=== PATIENT | female | born 1940 | race Caucasian/White ===

== ENCOUNTER 2016-10-06 12:54 | Outpatient (RCR) | payer MEDICARE ==
[2016-09-27] MEDS: IRON SUCROSE 200 MG/NS 100 ML (IVPB) IV SCH ×2 (13:35)
[2016-09-27 13:47] VITALS: BP 134/80
[2016-09-29 12:53] VITALS: BP 127/69
[2016-09-29] MEDS: IRON SUCROSE 200 MG/NS 100 ML (IVPB) IV SCH ×2 (13:40)
[2016-09-29] MEDS: ACETAMINOPHEN 500 MG TAB (TYLENOL) PO PRN (13:42)
[2016-10-01] MEDS: ACETAMINOPHEN 500 MG TAB (TYLENOL) PO PRN (13:05)
[2016-10-01] MEDS: IRON SUCROSE 200 MG/NS 100 ML (IVPB) IV SCH ×2 (13:15)
[2016-10-01 14:58] VITALS: BP 131/71
[2016-10-04] MEDS: ACETAMINOPHEN 500 MG TAB (TYLENOL) PO PRN (13:05)
[2016-10-04] MEDS: IRON SUCROSE 200 MG/NS 100 ML (IVPB) IV SCH ×2 (13:10)
[2016-10-04 13:36] VITALS: BP 127/69
[~2016-10-06] VITALS: Ht 167.6 cm; Wt 64.9 kg
[~2016-10-06 12:54] MED LIST: AC325T PO; ASP325TEC; ASP81TEC PO; ASPI-84 PO; BPR100T PO; CALCIUM MAGNESIUM PO; CLON0.5T3 PO; CLON1TAB36 PO; DOCU-165 PO; MCLZ25TRX PO; METO25TA2 PO; METO5TAB2 PO; MRTZ15T; MULT1TAB5 PO; NF-DICLO50 PO; NFR150C PO; NIAC125C3 PO; OMEP-10 PO; PEG250PW PO; PRAV40TA PO; PROP1TAB77; PRV20T PO; RAME8T PO; WARF2.5T PO; [UNRECOGNIZED DRUG - OTHER]; diphenhydrAMINE 50 MG/ML INJ (BENADRYL) IV PRN
[2016-10-06] MEDS: IRON SUCROSE 200 MG/NS 100 ML (IVPB) IV SCH ×2 (13:30)
[2016-10-06] MEDS: ACETAMINOPHEN 500 MG TAB (TYLENOL) PO PRN (13:37)
[2016-10-06 14:01] VITALS: BP 135/73
== END 2016-12-26 | disposition home or self-care (01) ==
LOC: SDC 12:54
PROVIDERS: ATTEND Nurse Practitioner
DX: D50.9 Iron deficiency anemia, unspecified (principal); D63.1 Anemia in chronic kidney disease; N18.3 Chronic kidney disease, stage 3 (moderate)
CPT/HCPCS: 96365; 96374

== ENCOUNTER → 2016-10-28 | Outpatient (CLI) | payer MEDICARE ==
[~2016-10-28] MED LIST changes: -diphenhydrAMINE 50 MG/ML INJ (BENADRYL) IV PRN
[2016-10-28 16:02] LABS: INR 1.7 (0.8-1.4); PROTHROMBIN TIME PATIENT 19.7 SEC (12.2-14.7)
== END ==
LOC: HH 15:41
PROVIDERS: ATTEND Internal Medicine Cardiovascular Disease
DX: Z51.81 Encounter for therapeutic drug level monitoring (principal); Z79.01 Long term (current) use of anticoagulants
CPT/HCPCS: 85610

== ENCOUNTER 2017-11-09 00:10 | Inpatient (IN) | payer MEDICARE ==
[~2017-11-09] VITALS: Ht 165.1 cm; Wt 62.2 kg
--- OUTSIDE RECORDS SUMMARY | 2017-11-09 00:26 | XMS REPORT ---
Author Author FRANCESCO PHILLIPS Organization e[employer] Address Unknown Phone Unavailable Care Team Providers Care Production Counter Name Role Phone FRANCESCO PHILLIPS CP Unavailable Allergies No Known Allergies Problems Problem Type Condition ICD-9 Code Onset Dates Condition Status Problem Blood in stool 578.1 Active Problem Anxiety state, unspecified 300.00 Active Problem Hyperlipidemia 272.4 Active Problem Unspecified site of sprain and strain 848.9 Active Problem Family history of malignant neoplasm of gastrointestinal tract V16.0 Active Problem Nonspecific abnormal finding in stool contents 792.1 Active Medications No Known Medications Results No Known Results Summary Purpose eClinicalWorks Submission
--- OUTSIDE RECORDS SUMMARY | 2017-11-09 00:26 | XMS REPORT ---
Author Author FRANCESCO PHILLIPS [facility] Address [address] [place] [address] Care Team Providers Care Solid Waste Division Supervisor Name Role Phone FRANCESCO PHILLIPS Unavailable PROBLEMS Type Condition ICD9-CM Code [id number] Code Onset Dates Condition Status SNOMED Code Problem Chronic kidney disease (CKD) stage G1/A1, glomerular filtration rate ( GFR) equal to or greater than 90 mL/min/1.73 square meter and albuminuria creatinine ratio less than 30 mg/g N18.1 Active 164337890 Problem Depression F32.9 Active 23453006 Problem Arthritis M19.90 Active 6173278 Problem MDD (major depressive disorder), recurrent, in partial remission F33.41 Active 51759356 Problem Generalized anxiety disorder F41.1 Active 67040822 Problem Atrial fibrillation, unspecified type I48.91 Active 70803822 Problem Anxiety F41.9 Active 68163441 Problem Gastro-esophageal reflux disease without esophagitis K21.9 Active 806263262 Problem Paroxysmal atrial fibrillation I48.0 Active 397194796 ALLERGIES No Information SOCIAL HISTORY Never Assessed PLAN OF CARE VITAL SIGNS MEDICATIONS Unknown Medications RESULTS No Results PROCEDURES No Known procedures IMMUNIZATIONS No Known Immunizations MEDICAL (GENERAL) HISTORY Type Description Date Medical History Depression Medical History hypertension Medical History Hypothyroidism Medical History anxiety Medical History hyperlipidemia Surgical History right hip replacement 2007 Surgical History left knee cap fixed 2008 Surgical History left knee screw removal 2010 Surgical History cataract surgery both eyes 2011 Surgical History heart cath 2010 Hospitalization History surgeries Hospitalization History [facility]- irregular heart beat, shortness of breath Aug
--- OUTSIDE RECORDS SUMMARY | 2017-11-09 00:26 | XMS REPORT ---
Author Author KAI CAZARES [facility] eClinicalWorks Address Unknown Phone Unavailable Care Team Providers Care Movement Assembly Final Inspector Name Role Phone KAI CAZARES CP Unavailable Allergies, Adverse Reactions, Alerts Substance Reaction Event Type morphine vomiting Drug Allergy Adhesive Tape itching, rash Drug Allergy Problems Problem Type Condition Code Onset Dates Condition Status Assessment Psychophysiological insomnia F51.04 Active Assessment Major depressive disorder, recurrent, unspecified F33.9 Active Assessment Anxiety F41.9 Active Problem Anxiety F41.9 Active Problem Arthritis M19.90 Active Problem Depression F32.9 Active Problem Hyperlipidemia 272.4 Active Problem Anxiety state, unspecified 300.00 Active Problem Chronic kidney disease (CKD) stage G1/A1, glomerular filtration rate ( GFR) equal to or greater than 90 mL/min/1.73 square meter and albuminuria creatinine ratio less than 30 mg/g N18.1 Active Problem GERD (gastroesophageal reflux disease) K21.9 Active Medications Medication Code System Code Instructions Start Date End Date Status Dosage pravastatin [facility] [address]-78 40 mg Once a day May 20, 2014 1 tablet Docusate Sodium [facility] [address]-77 50 MG Orally 2 times a day 1 capsule as needed Metoclopramide HCl [facility] [id number] NA 1 TABLET BY ORAL ROUTE 3 TIMES PER DAY Levothyroxine Sodium [facility] 75878906629 25 MCG TAKE ONE TABLET BY MOUTH DAILY Metoprolol Tartrate [facility] [address]-98 25 mg Sep 05, 2014 0.5 Tablet by Oral route 1 time per day Trazodone HCl [facility] [address]-70 150 MG Orally Once a day as needed to sleep 1 tablet at bedtime Wellbutrin XL [facility] [address]-74 300 MG Orally Once a day [address] [facility] [address]-83 20 MG Orally Once a day May 20, 2014 1 capsule by Oral route 1 time per day Alprazolam XR [facility] 45465679759 2 MG TAKE ONE TABLET BY MOUTH TWICE DAILY Polyethylene Glycol 3350 NDC [id number] MIX 17 GRAMS IN 8 OZ OF SUITABLE LIQUID AND DRINK ONCE DAILY Aspir-Low [facility] [address]-66 81 MG Orally Once a day 1 tablet Procedures Procedure Coding System Code Date Office Visit, Walt Pt., Level 3 CPT-4 65486 May 04, 2016 [facility] VISIT ESTABLISHED PATIENT CPT-4 G0467 May 04, 2016 Vital Signs Date/Time: May 04, 2016 Cardiac Monitoring Heart Rate 64 bpm Weight 143.0 lbs Height 66 in Blood Pressure Diastolic 58 mmHg Blood Pressure Systolic 104 mmHg Results No Known Results Summary Purpose eClinicalWorks Submission
--- OUTSIDE RECORDS SUMMARY | 2017-11-09 00:26 | XMS REPORT ---
Author Author FRANCESCO PHILLIPS Organization e[employer] Address Unknown Phone Unavailable Care Team Providers Care Immigration Case Worker Name Role Phone FRANCESCO PHILLIPS CP Unavailable Allergies No Known Allergies Problems Problem Type Condition Code Onset Dates Condition Status Problem Anxiety F41.9 Active Problem Arthritis M19.90 Active Problem Depression F32.9 Active Problem Hyperlipidemia 272.4 Active Problem Anxiety state, unspecified 300.00 Active Problem Chronic kidney disease (CKD) stage G1/A1, glomerular filtration rate ( GFR) equal to or greater than 90 mL/min/1.73 square meter and albuminuria creatinine ratio less than 30 mg/g N18.1 Active Problem GERD (gastroesophageal reflux disease) K21.9 Active Medications No Known Medications Results No Known Results Summary Purpose eClinicalWorks Submission
--- OUTSIDE RECORDS SUMMARY | 2017-11-09 00:26 | XMS REPORT ---
Author Author ANASTASIYA JOHNSON [facility] eClinicalWorks Address Unknown Phone Unavailable Care Team Providers Care Site Engineer Name Role Phone ANASTASIYA JOHNSON CP Unavailable Allergies, Adverse Reactions, Alerts Substance Reaction Event Type morphine vomiting Drug Allergy Adhesive Tape itching, rash Drug Allergy Problems Problem Type Condition ICD-9 Code Onset Dates Condition Status Assessment Major depression, recurrent 296.30 Active Assessment Persistent 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 Active Problem Blood in stool 578.1 Active Problem Anxiety state, unspecified 300.00 Active Problem Hyperlipidemia 272.4 Active Problem Unspecified site of sprain and strain 848.9 Active Assessment Generalized anxiety disorder 300.02 Active Problem Family history of malignant neoplasm of gastrointestinal tract V16.0 Active Problem Nonspecific abnormal finding in stool contents 792.1 Active Medications Medication Code System Code Instructions Start Date End Date Status Dosage Aspir-Low [facility] [address]-87 81 MG Orally Once a day 1 tablet Niacin [facility] [address]-13 100 MG Orally Once a day 1 tablet pravastatin [facility] [address]-02 40 mg Once a day May 20, 2014 1 tablet Trazodone HCl [facility] [address]-88 150 MG Take one tab q HS, may repeat X1 if awakens during the night 1 tablet at bedtime Wellbutrin XL [facility] [address]-65 300 MG TAKE ONE TABLET BY MOUTH ONCE DAILY Levothyroxine Sodium [facility] 11951779852 25 MCG TAKE ONE TABLET BY MOUTH DAILY Reglan [facility] [address]-40 5 mg Jul 26, 2014 1 tablet by Oral route 3 times per day Metoprolol Tartrate [facility] [address]-40 25 mg Sep 05, 2014 0.5 Tablet by Oral route 1 time per day MiraLax [facility] [address]-75 17 gram/dose Aug 30, 2014 take 17 g mixed with 8 oz. water or juice by Oral route 1 time per day Xanax XR [facility] [address]-82 2 MG Orally 2 times a day March 06, 2015 1 tablet Omeprazole [facility] [address]-70 20 MG Orally Once a day May 20, 2014 1 capsule by Oral route 1 time per day Docusate Sodium [facility] [address]-33 50 MG Orally 2 times a day 1 capsule as needed Procedures Procedure Coding System Code Date Office Visit, Est Pt., Level 3 CPT-4 67079 Jul 15, 2015 [facility] VISIT ESTABLISHED PATIENT CPT-4 G0467 Jul 15, 2015 Vital Signs Date/Time: Jul 15, 2015 Temperature 98.0 F Weight 151.8 lbs Height 66 in BMI 24.50 Index Blood Pressure Diastolic 62 mmHg Blood Pressure Systolic 110 mmHg Cardiac Monitoring Heart Rate 60 bpm Results No Known Results Summary Purpose eClinicalWorks Submission
--- OUTSIDE RECORDS SUMMARY | 2017-11-09 00:26 | XMS REPORT ---
Author Author FRANCESCO PHILLIPS [facility] Address [address] [place] [address] Care Team Providers Care Yarn Spinner Name Role Phone FRANCESCO PHILLIPS Unavailable PROBLEMS Type Condition ICD9-CM Code [id number] Code Onset Dates Condition Status SNOMED Code Problem Chronic kidney disease (CKD) stage G1/A1, glomerular filtration rate ( GFR) equal to or greater than 90 mL/min/1.73 square meter and albuminuria creatinine ratio less than 30 mg/g N18.1 Active 516844018 Problem Depression F32.9 Active 31836064 Problem Arthritis M19.90 Active 9540188 Problem MDD (major depressive disorder), recurrent, in partial remission F33.41 Active 89458977 Problem Generalized anxiety disorder F41.1 Active 40733571 Problem Atrial fibrillation, unspecified type I48.91 Active 14527854 Problem Anxiety F41.9 Active 91910466 Problem Gastro-esophageal reflux disease without esophagitis K21.9 Active 346457634 Problem Paroxysmal atrial fibrillation I48.0 Active 991464484 ALLERGIES No Information SOCIAL HISTORY Never Assessed [...]
--- OUTSIDE RECORDS SUMMARY | 2017-11-09 00:27 | XMS REPORT ---
Author Author FRANCESCO PHILLIPS [facility] Address [address] [place] [address] Care Team Providers Care Child Development Consultant Name Role Phone FRANCESCO PHILLIPS Unavailable PROBLEMS Type Condition ICD9-CM Code [id number] Code Onset Dates Condition Status SNOMED Code Problem Chronic kidney disease (CKD) stage G1/A1, glomerular filtration rate ( GFR) equal to or greater than 90 mL/min/1.73 square meter and albuminuria creatinine ratio less than 30 mg/g N18.1 Active 742323482 Problem Depression F32.9 Active 18777170 Problem Arthritis M19.90 Active 6288599 Problem MDD (major depressive disorder), recurrent, in partial remission F33.41 Active 20525754 Problem Generalized anxiety disorder F41.1 Active 54270396 Problem Atrial fibrillation, unspecified type I48.91 Active 81281900 Problem Anxiety F41.9 Active 19121333 Problem Gastro-esophageal reflux disease without esophagitis K21.9 Active 898524833 Problem Paroxysmal atrial fibrillation I48.0 Active 723729481 ALLERGIES Unknown Allergies SOCIAL HISTORY No smoking Hx information available PLAN OF CARE VITAL SIGNS MEDICATIONS Unknown Medications RESULTS No Results PROCEDURES No Known procedures IMMUNIZATIONS No Known Immunizations
--- OUTSIDE RECORDS SUMMARY | 2017-11-09 00:27 | XMS REPORT ---
Author Author FRANCESCO PHILLIPS [facility] Address [address] [place] [address] Care Team Providers Care Food Cooking Machine Operator Name Role Phone FRANCESCO PHILLIPS Unavailable PROBLEMS Type Condition ICD9-CM Code [id number] Code Onset Dates Condition Status SNOMED Code Problem Chronic kidney disease (CKD) stage G1/A1, glomerular filtration rate ( GFR) equal to or greater than 90 mL/min/1.73 square meter and albuminuria creatinine ratio less than 30 mg/g N18.1 Active 158118746 Problem Depression F32.9 Active 36807614 Problem Arthritis M19.90 Active 0958750 Problem MDD (major depressive disorder), recurrent, in partial remission F33.41 Active 77067244 Problem Generalized anxiety disorder F41.1 Active 61549803 Problem Atrial fibrillation, unspecified type I48.91 Active 33027640 Problem Anxiety F41.9 Active 22430853 Problem Gastro-esophageal reflux disease without esophagitis K21.9 Active 547186340 Problem Paroxysmal atrial fibrillation I48.0 Active 184234318 ALLERGIES No Information SOCIAL HISTORY Never Assessed PLAN OF CARE VITAL SIGNS MEDICATIONS Medication Instructions Dosage Frequency Start Date End Date Duration Status Omeprazole 20 mg Orally Once a day 1 capsule 24h Apr, 90 days Active Metoclopramide HCl 5MG Orally 3 times a day 1 tablet 8h 90 days Active RESULTS No Results PROCEDURES No Known procedures [...]
--- OUTSIDE RECORDS SUMMARY | 2017-11-09 00:27 | XMS REPORT ---
Author Author FRANCESCO PHILLIPS [facility] Address [address] [place] [address] Care Team Providers Care Casino Floorperson Name Role Phone FRANCESCO PHILLIPS Unavailable PROBLEMS Type Condition ICD9-CM Code [id number] Code Onset Dates Condition Status SNOMED Code Problem Chronic kidney disease (CKD) stage G1/A1, glomerular filtration rate ( GFR) equal to or greater than 90 mL/min/1.73 square meter and albuminuria creatinine ratio less than 30 mg/g N18.1 Active 840459059 Problem Depression F32.9 Active 51856776 Problem Arthritis M19.90 Active 6059460 Problem MDD (major depressive disorder), recurrent, in partial remission F33.41 Active 65739522 Problem Generalized anxiety disorder F41.1 Active 21452267 Problem Atrial fibrillation, unspecified type I48.91 Active 52723347 Problem Anxiety F41.9 Active 97886818 Problem Gastro-esophageal reflux disease without esophagitis K21.9 Active 123922240 Problem Paroxysmal atrial fibrillation I48.0 Active 314114636 ALLERGIES No Information SOCIAL HISTORY Never Assessed [...]
--- OUTSIDE RECORDS SUMMARY | 2017-11-09 00:27 | XMS REPORT ---
Author Author KAI Vines Organization [facility] Address [address] [place] [address] Care Team Providers Care Sharepoint Application Developer Name Role Phone KAI Vines Unavailable PROBLEMS Type Condition ICD9-CM Code [id number] Code Onset Dates Condition Status SNOMED Code Problem Chronic kidney disease (CKD) stage G1/A1, glomerular filtration rate ( GFR) equal to or greater than 90 mL/min/1.73 square meter and albuminuria creatinine ratio less than 30 mg/g N18.1 Active 329470911 Problem Depression F32.9 Active 58661550 Problem Arthritis M19.90 Active 7274229 Problem MDD (major depressive disorder), recurrent, in partial remission F33.41 Active 84861239 Problem Generalized anxiety disorder F41.1 Active 13766367 Problem Atrial fibrillation, unspecified type I48.91 Active 68867509 Problem Anxiety F41.9 Active 15228811 Problem Gastro-esophageal reflux disease without esophagitis K21.9 Active 065548473 Problem Paroxysmal atrial fibrillation I48.0 Active 773847094 ALLERGIES Substance Reaction Event Type Date Status morphine vomiting Drug Allergy Dec, Active Adhesive Tape itching, rash Drug Allergy Dec, Active SOCIAL HISTORY Never Assessed PLAN OF CARE Activity Details Follow Up 3 Months Reason: VITAL SIGNS Height 66 in 2017-01-11 Weight 128.7 lbs 2017-01-11 Heart Rate 60 bpm 2017-01-11 Respiratory Rate 18 2017-01-11 BMI 20.77 kg/m2 2017-01-11 Blood pressure systolic 100 mmHg 2017-01-11 Blood pressure diastolic 53 mmHg 2017-01-11 MEDICATIONS Medication Instructions Dosage Frequency Start Date End Date Duration Status Niacin 100 MG Orally Once a day 1 tablet 24h Active Iron (Ferrous Gluconate) 256 (28 Fe) MG Active Levothyroxine Sodium 25 MCG TAKE ONE TABLET BY MOUTH DAILY 30 Active pravastatin 40 mg by oral route Once a day 1 tablet 24h Apr, Active Lasix 40 MG Orally Once a day 1 tablet 24h Active Alprazolam 1 MG Orally TID TAKE ONE TABLET BY MOUTH THREE TIMES DAILY 8h 30 days Active Docusate Sodium 50 MG Orally 2 times a day 1 capsule as needed 12h Active Wellbutrin XL 300 MG Orally Once a day 1 tablet 24h Active Polyethylene Glycol 3350 MIX 17 GRAMS IN 8 OZ OF SUITABLE LIQUID AND DRINK ONCE DAILY 30 Active Toprol XL 25 MG Orally Once a day 1 tablet 24h Active Omeprazole 20 mg Orally Once a day 1 capsule 24h Apr, 90 days Active Vitamin D 1000 UNIT Orally Once a day 1 tablet 24h Active Coumadin 5 MG Orally Once a day 1 tablet 24h Active BuPROPion HCl (XL) 300 MG Orally Once a day TAKE ONE TABLET BY MOUTH ONCE DAILY 24h 30 days Active Aspir-Low 81 MG Orally Once a day 1 tablet 24h Active Metoclopramide HCl 5MG Orally 3 times a day 1 tablet 8h 90 days Active RESULTS No Results PROCEDURES Procedure Date Ordered Result Body Site [facility] VISIT ESTABLISHED PATIENT January 11, 2017 IMMUNIZATIONS No Known Immunizations MEDICAL (GENERAL) HISTORY [...]
--- OUTSIDE RECORDS SUMMARY | 2017-11-09 00:27 | XMS REPORT ---
Author Author FRANCESCO PHILLIPS Organization eClinicalWorks Address Unknown Phone Unavailable Care Team Providers Care Legal Biller Name Role Phone FRANCESCO PHILLIPS CP Unavailable [...]
--- OUTSIDE RECORDS SUMMARY | 2017-11-09 00:27 | XMS REPORT ---
Author Author ANASTASIYA JOHNSON [facility] eClinicalWorks Address Unknown Phone Unavailable Care Team Providers Care Ophthalmology Surgical Technician Name Role Phone ANASTASIYA JOHNSON CP Unavailable Allergies, Adverse Reactions, Alerts Substance Reaction Event Type morphine vomiting Drug Allergy Adhesive Tape itching, rash Drug Allergy Problems Problem Type Condition ICD-9 Code Onset Dates Condition Status Assessment Depression, major, recurrent, in remission 296.35 Active Problem Blood in stool 578.1 Active [...] Instructions Start Date End Date Status Dosage Hydrocodone-Acetaminophen [facility] [address]-25 5-325 mg Oct 14, 2014 1 tablet by Oral route every 6 hours PRN Docusate Sodium [facility] [address]-26 50 MG Orally 2 times a day 1 capsule as needed Trazodone HCl [facility] [address]-33 150 MG Take one tab q HS, may repeat X1 if awakens during the night 1 tablet at bedtime Xanax XR [facility] [address]-65 2 MG Orally 2 times a day March 06, 2015 1 tablet Wellbutrin XL [facility] [address]-76 300 MG TAKE ONE TABLET BY MOUTH ONCE DAILY Levothyroxine Sodium [facility] [address]-95 25 MCG Orally Once a day 1 tablet Reglan [facility] [address]-89 5 mg Jul 26, 2014 1 tablet by Oral route 3 times per day MiraLax [facility] [address]-47 17 gram/dose Aug 30, 2014 take 17 g mixed with 8 oz. water or juice by Oral route 1 time per day Omeprazole [facility] [address]-85 20 MG Orally Once a day May 20, 2014 1 capsule by Oral route 1 time per day pravastatin [facility] [address]-84 40 mg Once a day May 20, 2014 1 tablet Aspir-Low [facility] [address]-30 81 MG Orally Once a day 1 tablet Niacin [facility] [address]-71 100 MG Orally Once a day 1 tablet Metoprolol Tartrate [facility] [address]-55 25 mg Sep 05, 2014 0.5 Tablet by Oral route 1 time per day Procedures Procedure Coding System Code Date Office Visit, Est Pt., Level 3 CPT-4 92261 Jun 19, 2015 [facility] VISIT ESTABLISHED PATIENT CPT-4 G0467 Jun 19, 2015 Vital Signs Date/Time: Jun 19, 2015 Cardiac Monitoring Heart Rate 76 bpm Weight 153.8 lbs Height 66 in BMI 24.82 Index Blood Pressure Diastolic 68 mmHg Blood Pressure Systolic 108 mmHg Results No Known Results Summary Purpose eClinicalWorks Submission
--- OUTSIDE RECORDS SUMMARY | 2017-11-09 00:27 | XMS REPORT ---
Author Author FRANCESCO PHILLIPS [facility] eClinicalWorks Address Unknown Phone Unavailable Care Team Providers Care Certified Pesticide Applicator Name Role Phone FRANCESCO PHILLIPS CP Unavailable [...] Start Date End Date Status Dosage pravastatin [facility] [address]-54 40 mg by oral route Once a day May 20, 2014 1 tablet Results No Known Results Summary Purpose eClinicalWorks Submission
--- OUTSIDE RECORDS SUMMARY | 2017-11-09 00:27 | XMS REPORT ---
Author Author KAI CAZARES Organization [employer] Address Unknown Phone Unavailable Care Team Providers Care Director Of Architecture Name Role Phone KAI CAZARES CP Unavailable Allergies No Known Allergies Problems [...] Instructions Start Date End Date Status Dosage Alprazolam [facility] 43676100736 1 MG TAKE ONE TABLET BY MOUTH THREE TIMES DAILY Results No Known Results Summary Purpose eClinicalWorks Submission
--- OUTSIDE RECORDS SUMMARY | 2017-11-09 00:27 | XMS REPORT ---
Author Author FRANCESCO PHILLIPS [facility] Address [address] [place] [address] Care Team Providers Care Wire Bender Name Role Phone FRANCESCO PHILLIPS Unavailable PROBLEMS Type Condition ICD9-CM Code [id number] Code Onset Dates Condition Status SNOMED Code Problem Chronic kidney disease (CKD) stage G1/A1, glomerular filtration rate ( GFR) equal to or greater than 90 mL/min/1.73 square meter and albuminuria creatinine ratio less than 30 mg/g N18.1 Active 818692213 Problem Depression F32.9 Active 53213522 Problem Arthritis M19.90 Active 6517444 Problem MDD (major depressive disorder), recurrent, in partial remission F33.41 Active 47526028 Problem Generalized anxiety disorder F41.1 Active 34990993 Problem Atrial fibrillation, unspecified type I48.91 Active 91362769 Problem Anxiety F41.9 Active 37486146 Problem Gastro-esophageal reflux disease without esophagitis K21.9 Active 877392412 Problem Paroxysmal atrial fibrillation I48.0 Active 720594879 ALLERGIES Substance Reaction Event Type Date Status morphine vomiting Drug Allergy Nov, Active Adhesive Tape itching, rash Drug Allergy Nov, Active SOCIAL HISTORY Never Assessed PLAN OF CARE Activity Details Follow Up 3 Months Reason: VITAL SIGNS Height 66 in 2016-12-03 Weight 128.5 lbs 2016-12-03 Temperature 97.4 degrees Fahrenheit 2016-12-03 Heart Rate 60 bpm 2016-12-03 Respiratory Rate 18 2016-12-03 BMI 20.74 kg/m2 2016-12-03 Blood pressure systolic 106 mmHg 2016-12-03 Blood pressure diastolic 64 mmHg 2016-12-03 MEDICATIONS Medication Instructions Dosage Frequency Start Date End Date Duration Status pravastatin 40 mg by oral route Once a day 1 tablet 24h 28 Apr, 2014 Active Metoclopramide HCl 5MG TAKE 1 TABLET THREE TIMES A DAY Active Levothyroxine Sodium 25 MCG TAKE ONE TABLET BY MOUTH DAILY 30 Active Aspir-Low 81 MG Orally Once a day 1 tablet 24h Active Toprol XL 25 MG Orally Once a day 1 tablet 24h Active Wellbutrin XL 300 MG Orally Once a day 1 tablet 24h Active Alprazolam 1 MG TAKE ONE TABLET BY MOUTH THREE TIMES DAILY Active Coumadin 5 MG Orally Once a day 1 tablet 24h Active Niacin 100 MG Orally Once a day 1 tablet 24h Active Iron (Ferrous Gluconate) 256 (28 Fe) MG Active Polyethylene Glycol 3350 MIX 17 GRAMS IN 8 OZ OF SUITABLE LIQUID AND DRINK ONCE DAILY 30 Active Vitamin D 1000 UNIT Orally Once a day 1 tablet 24h Active Omeprazole 20 MG Orally Once a day 1 capsule by Oral route 1 time per day 24h Apr, Active Lasix 40 MG Orally Once a day 1 tablet 24h Active Docusate Sodium 50 MG Orally 2 times a day 1 capsule as needed 12h Active BuPROPion HCl (XL) 300 MG TAKE ONE TABLET BY MOUTH ONCE DAILY 30 Active RESULTS No Results PROCEDURES Procedure Date Ordered Result Body Site [facility] VISIT ESTABLISHED PATIENT Dec 03, 2016 IMMUNIZATIONS No Known Immunizations MEDICAL (GENERAL) HISTORY [...]
--- OUTSIDE RECORDS SUMMARY | 2017-11-09 00:27 | XMS REPORT ---
Author Author FRANCESCO PHILLIPS [facility] eClinicalWorks Address Unknown Phone Unavailable Care Team Providers Care Turf Grower Name Role Phone FRANCESCO PHILLIPS CP Unavailable Allergies No Known Allergies Problems Problem Type Condition Code Onset Dates Condition Status Problem Unspecified site of sprain and strain 848.9 Active Assessment Chronic kidney disease N18.9 Active Problem GERD (gastroesophageal reflux disease) K21.9 Active Problem Hyperlipidemia 272.4 Active Problem Chronic kidney disease (CKD) stage G1/A1, glomerular filtration rate ( GFR) equal to or greater than 90 mL/min/1.73 square meter and albuminuria creatinine ratio less than 30 mg/g N18.1 Active Problem Family history of malignant neoplasm of gastrointestinal tract V16.0 Active Problem Nonspecific abnormal finding in stool contents 792.1 Active Problem Blood in stool 578.1 Active Problem Anxiety state, unspecified 300.00 Active Medications No Known Medications Results No Known Results Summary Purpose eClinicalWorks Submission
--- OUTSIDE RECORDS SUMMARY | 2017-11-09 00:27 | XMS REPORT ---
Author Author FRANCESCO PHILLIPS [facility] eClinicalWorks Address Unknown Phone Unavailable Care Team Providers Care Neonatal Critical Care Nurse Name Role Phone FRANCESCO PHILLIPS CP Unavailable Allergies No Known Allergies Problems Problem Type Condition Code Onset Dates Condition Status Problem Unspecified site of sprain and strain 848.9 Active Assessment Chronic kidney disease 585.9 Active Problem GERD (gastroesophageal reflux disease) K21.9 [...]
--- OUTSIDE RECORDS SUMMARY | 2017-11-09 00:27 | XMS REPORT ---
Author Author FRANCESCO PHILLIPS Organization eClinicalWorks Address Unknown Phone Unavailable Care Team Providers Care Professional Fee Coder Name Role Phone FRANCESCO PHILLIPS CP Unavailable Allergies No Known Allergies Problems Problem Type Condition Code Onset Dates Condition Status Problem Unspecified site of sprain and strain 848.9 Active Problem GERD (gastroesophageal reflux disease) K21.9 [...] Problem Anxiety state, unspecified 300.00 Active Medications Medication Code System Code Instructions Start Date End Date Status Dosage Trazodone HCl [facility] [address]-80 150 MG Take one tab q HS, may repeat X1 if awakens during the night 1 tablet at bedtime Alprazolam XR [facility] [address]-62 2 MG Orally 2 times a day 1 tablet Wellbutrin XL [facility] [address]-88 300 MG Orally Once a day 1 tablet Results No Known Results Summary Purpose eClinicalWorks Submission
--- OUTSIDE RECORDS SUMMARY | 2017-11-09 00:27 | XMS REPORT ---
Author Author BAYLEE EGAN Organization e[employer] Address Unknown Phone Unavailable Care Team Providers Care Music Librarian Name Role Phone BAYLEE EGAN Unavailable Allergies No Known Allergies Problems Problem Type Condition Code Onset Dates Condition Status Problem Chronic kidney disease (CKD) stage G1/A1, glomerular filtration rate ( GFR) equal to or greater than 90 mL/min/1.73 square meter and albuminuria creatinine ratio less than 30 mg/g N18.1 Active Problem GERD (gastroesophageal reflux disease) K21.9 Active Problem Arthritis M19.90 Active Problem Hyperlipidemia 272.4 Active Problem Anxiety state, unspecified 300.00 Active Medications No Known Medications Results No Known Results Summary Purpose eClinicalWorks Submission
--- OUTSIDE RECORDS SUMMARY | 2017-11-09 00:28 | XMS REPORT ---
Author Author FRANCESCO PHILLIPS [facility] Address [address] [place] [address] Care Team Providers Care Etl Application Developer Name Role Phone FRANCESCO PHILLIPS Unavailable PROBLEMS Type Condition ICD9-CM Code [id number] Code Onset Dates Condition Status SNOMED Code Problem Chronic kidney disease (CKD) stage G1/A1, glomerular filtration rate ( GFR) equal to or greater than 90 mL/min/1.73 square meter and albuminuria creatinine ratio less than 30 mg/g N18.1 Active 707267587 Problem Anxiety F41.9 Active 00383049 Problem Arthritis M19.90 Active 0898126 Problem MDD (major depressive disorder), recurrent, in partial remission F33.41 Active 43779456 Problem Generalized anxiety disorder F41.1 Active 43569098 Problem Atrial fibrillation, unspecified type I48.91 Active 44166936 Problem Depression F32.9 Active 34390059 Problem Gastro-esophageal reflux disease without esophagitis K21.9 Active 993298288 Problem Paroxysmal atrial fibrillation I48.0 Active 722924727 ALLERGIES Substance Reaction Event Type Date Status morphine vomiting Drug Allergy Sep, Active Adhesive Tape itching, rash Drug Allergy Sep, Active SOCIAL HISTORY No smoking Hx information available PLAN OF CARE Activity Details Follow Up 4 Weeks Reason: VITAL SIGNS Height 66 in 2016-10-22 Weight 132 lbs 2016-10-22 Temperature 98.3 degrees Fahrenheit 2016-10-22 Heart Rate 78 bpm 2016-10-22 Respiratory Rate 20 2016-10-22 BMI 21.30 kg/m2 2016-10-22 Blood pressure systolic 100 mmHg 2016-10-22 Blood pressure diastolic 60 mmHg 2016-10-22 MEDICATIONS Medication Instructions Dosage Frequency Start Date End Date Duration Status Aspir-Low 81 MG Orally Once a day 1 tablet 24h Active Coumadin 5 MG Orally Once a day 1 tablet 24h Active Docusate Sodium 50 MG Orally 2 times a day 1 capsule as needed 12h Active pravastatin 40 mg by oral route Once a day 1 tablet 24h Apr, Active Toprol XL 25 MG Orally Once a day 1 tablet 24h Active Wellbutrin XL 300 MG Orally Once a day 1 tablet 24h Active Lasix 40 MG Orally Once a day 1 tablet 24h Active Levothyroxine Sodium 25 MCG TAKE ONE TABLET BY MOUTH DAILY 30 Active Niacin 100 MG Orally Once a day 1 tablet 24h Active Vitamin D 1000 UNIT Orally Once a day 1 tablet 24h Active Metoclopramide HCl 5MG TAKE 1 TABLET THREE TIMES A DAY Active Polyethylene Glycol 3350 MIX 17 GRAMS IN 8 OZ OF SUITABLE LIQUID AND DRINK ONCE DAILY 30 Active Omeprazole 20 MG Orally Once a day 1 capsule by Oral route 1 time per day 24h Apr, Active Alprazolam 1 MG TAKE ONE TABLET BY MOUTH THREE TIMES DAILY Active Iron (Ferrous Gluconate) 256 (28 Fe) MG Active RESULTS No Results PROCEDURES Procedure Date Ordered Related Diagnosis Body Site [facility] VISIT ESTABLISHED PATIENT Oct 22, 2016 Office Visit, Est Pt., Level 2 Oct 22, 2016 IMMUNIZATIONS No Known Immunizations
--- OUTSIDE RECORDS SUMMARY | 2017-11-09 00:28 | XMS REPORT ---
Author Author FRANCESCO PHILLIPS Organization eClinicalWorks Address Unknown Phone Unavailable Care Team Providers Care Clinical Faculty Name Role Phone FRANCESCO PHILLIPS CP Unavailable [...] Instructions Start Date End Date Status Dosage Omeprazole [facility] [address]-81 20 MG Orally Once a day May 20, 2014 1 capsule by Oral route 1 time per day Results No Known Results Summary Purpose eClinicalWorks Submission
--- OUTSIDE RECORDS SUMMARY | 2017-11-09 00:28 | XMS REPORT ---
Author Author DEMETRIUS CAZARES Organization eClinicalWorks Address Unknown Phone Unavailable Care Team Providers Care Infrastructure Engineer Name Role Phone DEMETRIUS CAZARES CP Unavailable Allergies No Known Allergies [...] Instructions Start Date End Date Status Dosage Xanax XR [facility] [address]-19 2 MG Orally 2 times a day March 06, 2015 1 tablet Results No Known Results Summary Purpose eClinicalWorks Submission
--- OUTSIDE RECORDS SUMMARY | 2017-11-09 00:28 | XMS REPORT ---
Author Author FRANCESCO PHILLIPS [facility] Address [address] [place] [address] Care Team Providers Care Advertising Display Rotator Name Role Phone FRANCESCO PHILLIPS Unavailable PROBLEMS Type Condition ICD9-CM Code [id number] Code Onset Dates Condition Status SNOMED Code Problem Chronic kidney disease (CKD) stage G1/A1, glomerular filtration rate ( GFR) equal to or greater than 90 mL/min/1.73 square meter and albuminuria creatinine ratio less than 30 mg/g N18.1 Active 971358749 Problem Depression F32.9 Active 98504996 Problem Arthritis M19.90 Active 1933498 Problem MDD (major depressive disorder), recurrent, in partial remission F33.41 Active 74915579 Problem Generalized anxiety disorder F41.1 Active 87508883 Problem Atrial fibrillation, unspecified type I48.91 Active 78877083 Problem Anxiety F41.9 Active 77976705 Problem Gastro-esophageal reflux disease without esophagitis K21.9 Active 706793607 Problem Paroxysmal atrial fibrillation I48.0 Active 961482847 ALLERGIES Unknown Allergies SOCIAL HISTORY No smoking Hx information available PLAN OF CARE VITAL SIGNS MEDICATIONS Medication Instructions Dosage Frequency Start Date End Date Duration Status Polyethylene Glycol 3350 MIX 17 GRAMS IN 8 OZ OF SUITABLE LIQUID AND DRINK ONCE DAILY 30 Active RESULTS No Results PROCEDURES No Known procedures IMMUNIZATIONS No Known Immunizations
--- OUTSIDE RECORDS SUMMARY | 2017-11-09 00:28 | XMS REPORT ---
Author Author FRANCESCO PHILLIPS [facility] Address [address] [place] [address] Care Team Providers Care Cargo Tank Mechanic Name Role Phone FRANCESCO PHILLIPS Unavailable PROBLEMS Type Condition ICD9-CM Code [id number] Code Onset Dates Condition Status SNOMED Code Problem Chronic kidney disease (CKD) stage G1/A1, glomerular filtration rate ( GFR) equal to or greater than 90 mL/min/1.73 square meter and albuminuria creatinine ratio less than 30 mg/g N18.1 Active 300829681 Problem Depression F32.9 Active 42347916 Problem Arthritis M19.90 Active 6870935 Problem MDD (major depressive disorder), recurrent, in partial remission F33.41 Active 68826172 Problem Generalized anxiety disorder F41.1 Active 12230776 Problem Atrial fibrillation, unspecified type I48.91 Active 30039682 Problem Anxiety F41.9 Active 06946603 Problem Gastro-esophageal reflux disease without esophagitis K21.9 Active 207804300 Problem Paroxysmal atrial fibrillation I48.0 Active 752998744 ALLERGIES Unknown Allergies SOCIAL HISTORY No smoking Hx information available PLAN OF CARE VITAL SIGNS MEDICATIONS Unknown Medications RESULTS No Results PROCEDURES No Known procedures IMMUNIZATIONS No Known Immunizations
--- OUTSIDE RECORDS SUMMARY | 2017-11-09 00:28 | XMS REPORT ---
Author Author KAI Vines Organization [facility] Address [address] [place] [address] Care Team Providers Care Home Care Provider Name Role Phone KAI Vines Unavailable PROBLEMS Type Condition ICD9-CM Code [id number] Code Onset Dates Condition Status SNOMED Code Problem Chronic kidney disease (CKD) stage G1/A1, glomerular filtration rate ( GFR) equal to or greater than 90 mL/min/1.73 square meter and albuminuria creatinine ratio less than 30 mg/g N18.1 Active 351662910 Problem Anxiety F41.9 Active 43334692 Problem Arthritis M19.90 Active 2704265 Problem MDD (major depressive disorder), recurrent, in partial remission F33.41 Active 83936300 Problem Generalized anxiety disorder F41.1 Active 77832676 Problem Atrial fibrillation, unspecified type I48.91 Active 17200882 Problem Depression F32.9 Active 64723365 Problem Gastro-esophageal reflux disease without esophagitis K21.9 Active 878703034 Problem Paroxysmal atrial fibrillation I48.0 Active 016302037 ALLERGIES Unknown Allergies SOCIAL HISTORY No smoking Hx information available PLAN OF CARE Activity Details Follow Up 2 Months Reason: VITAL SIGNS Height 66 in 2016-10-19 Weight 151 lbs 2016-10-19 Respiratory Rate 20 2016-10-19 BMI 24.37 kg/m2 2016-10-19 Blood pressure systolic 110 mmHg 2016-10-19 Blood pressure diastolic 72 mmHg 2016-10-19 MEDICATIONS Medication Instructions Dosage Frequency Start Date End Date Duration Status Aspir-Low 81 MG Orally Once a day 1 tablet 24h Active Toprol XL 25 MG Orally Once a day 1 tablet 24h Active pravastatin 40 mg by oral route Once a day 1 tablet 24h Apr, Active Omeprazole 20 MG Orally Once a day 1 capsule by Oral route 1 time per day 24h Apr, Active Metoclopramide HCl 5MG TAKE 1 TABLET THREE TIMES A DAY Active Lasix 40 MG Orally Once a day 1 tablet 24h Active Iron (Ferrous Gluconate) 256 (28 Fe) MG Active Levothyroxine Sodium 25 MCG TAKE ONE TABLET BY MOUTH DAILY 30 Active Vitamin D 1000 UNIT Orally Once a day 1 tablet 24h Active Coumadin 5 MG Orally Once a day 1 tablet 24h Active Wellbutrin XL 300 MG Orally Once a day 1 tablet 24h Active Docusate Sodium 50 MG Orally 2 times a day 1 capsule as needed 12h Active Polyethylene Glycol 3350 MIX 17 GRAMS IN 8 OZ OF SUITABLE LIQUID AND DRINK ONCE DAILY 30 Active Niacin 100 MG Orally Once a day 1 tablet 24h Active Alprazolam 1 MG TAKE ONE TABLET BY MOUTH THREE TIMES DAILY Active RESULTS No Results PROCEDURES Procedure Date Ordered Related Diagnosis Body Site [facility] VISIT ESTABLISHED PATIENT Oct 19, 2016 Office Visit, Est Pt., Level 3 Oct 19, 2016 IMMUNIZATIONS No Known Immunizations
--- OUTSIDE RECORDS SUMMARY | 2017-11-09 00:28 | XMS REPORT ---
Author Author ANASTASIYA JOHNSON Organization eClinicalWorks Address Unknown Phone Unavailable Care Team Providers Care Cadd Drafter Name Role Phone ANASTASIYA JOHNSON Unavailable Allergies No Known Allergies Problems Problem Type Condition Code Onset Dates Condition Status Problem Blood [...]
--- OUTSIDE RECORDS SUMMARY | 2017-11-09 00:28 | XMS REPORT ---
Author Author FRANCESCO PHILLIPS [facility] Address [address] [place] [address] Care Team Providers Care Machining Engineer Name Role Phone FRANCESCO PHILLIPS Unavailable PROBLEMS Type Condition ICD9-CM Code [id number] Code Onset Dates Condition Status SNOMED Code Problem Anxiety state, unspecified 300.00 Active 184500608 Problem GERD (gastroesophageal reflux disease) K21.9 Active 349111245 Problem Hyperlipidemia 272.4 Active 23000239 Assessment Paroxysmal atrial fibrillation I48.0 Sep, Active 366657428 Problem Gastro-esophageal reflux disease without esophagitis K21.9 Active 549172108 Problem Paroxysmal atrial fibrillation I48.0 Active 730827196 Problem Arthritis M19.90 Active 1503968 Problem Chronic kidney disease (CKD) stage G1/A1, glomerular filtration rate ( GFR) equal to or greater than 90 mL/min/1.73 square meter and albuminuria creatinine ratio less than 30 mg/g N18.1 Active 502132931 Problem Depression F32.9 Active 57143591 Problem Anxiety F41.9 Active 22464756 ALLERGIES Substance Reaction Event Type Date Status morphine vomiting Drug Allergy Sep, Active Adhesive Tape itching, rash Drug Allergy Sep, Active SOCIAL HISTORY No smoking Hx information available PLAN OF CARE VITAL SIGNS Height 66 in 2016-10-01 Weight 151.9 lbs 2016-10-01 Heart Rate 76 bpm 2016-10-01 Respiratory Rate 18 2016-10-01 BMI 24.51 kg/m2 2016-10-01 Blood pressure systolic 106 mmHg 2016-10-01 Blood pressure diastolic 68 mmHg 2016-10-01 MEDICATIONS Medication Instructions Dosage Frequency Start Date [...] 1 time per day 24h Apr, Active Coumadin 5 MG Orally Once a day 1 tablet 24h Active Metoclopramide HCl 5MG TAKE 1 TABLET THREE TIMES A DAY Active Wellbutrin XL 300 MG Orally Once a day 1 tablet 24h Active BuPROPion HCl (XL) 300 MG TAKE ONE TABLET BY MOUTH ONCE DAILY Active Trazodone HCl 150 MG TAKE ONE TABLET BY MOUTH AT BEDTIME NEEDED Active Aspir-Low 81 MG Orally Once a day 1 tablet 24h Active Alprazolam 1 MG TAKE ONE TABLET BY MOUTH THREE TIMES DAILY 30 Active Levothyroxine Sodium 25 MCG TAKE ONE TABLET BY MOUTH DAILY 30 Active Alprazolam 2 MG Orally 3 times a day 1 tablet 8h Jun, Active Toprol XL 25 MG Orally Once a day 1 tablet 24h Active Docusate Sodium 50 MG Orally 2 times a day 1 capsule as needed 12h Active Metoclopramide HCl 5 mg Orally 2 times a day 2 tablets 12h 90 days Active RESULTS No Results PROCEDURES Procedure Date Ordered Related Diagnosis Body Site [facility] VISIT ESTABLISHED PATIENT Oct 01, 2016 Office Visit, Est Pt., Level 3 Oct 01, 2016 IMMUNIZATIONS No Known Immunizations
--- OUTSIDE RECORDS SUMMARY | 2017-11-09 00:28 | XMS REPORT ---
Author Author FRANCESCO PHILLIPS [facility] Address [address] [place] [address] Care Team Providers Care Automatic Operator Name Role Phone FRANCESCO PHILLIPS Unavailable PROBLEMS Type Condition ICD9-CM Code [id number] Code Onset Dates Condition Status SNOMED Code Problem Anxiety state, unspecified 300.00 Active 381290202 Problem GERD (gastroesophageal reflux disease) K21.9 Active 749457281 Problem Hyperlipidemia 272.4 Active 46689349 Problem Gastro-esophageal reflux disease without esophagitis K21.9 Active 865493777 Problem Paroxysmal atrial fibrillation I48.0 Active 169894254 Problem Arthritis M19.90 Active 2178163 Problem Chronic kidney disease (CKD) stage G1/A1, glomerular filtration rate ( GFR) equal to or greater than 90 mL/min/1.73 square meter and albuminuria creatinine ratio less than 30 mg/g N18.1 Active 793984256 Problem Depression F32.9 Active 96193728 Problem Anxiety F41.9 Active 81699735 ALLERGIES Unknown Allergies SOCIAL HISTORY No smoking Hx information available PLAN OF CARE VITAL SIGNS MEDICATIONS Unknown Medications RESULTS No Results PROCEDURES No Known procedures IMMUNIZATIONS No Known Immunizations
--- OUTSIDE RECORDS SUMMARY | 2017-11-09 00:28 | XMS REPORT ---
Author FRANCESCO [facility] eClinicalWorks Address Unknown Phone Unavailable Care Team Providers Care Prevention Rn Name Role Phone FRANCESCO PHILLIPS CP Unavailable Allergies, Adverse Reactions, Alerts Substance Reaction Event Type morphine vomiting Drug Allergy Adhesive Tape itching, rash Drug Allergy Problems Problem Type Condition Code Onset Dates Condition Status Assessment GERD (gastroesophageal reflux disease) K21.9 Active Problem Unspecified site of sprain and strain 848.9 Active Assessment Chronic kidney disease (CKD) stage G1/A1, glomerular filtration rate (GFR) equal to or greater than 90 mL/min/1.73 [...] Instructions Start Date End Date Status Dosage Metoclopramide HCl [facility] [id number] NA 1 TABLET BY ORAL ROUTE 3 TIMES PER DAY Trazodone HCl [facility] [address]-73 150 MG Take one tab q HS, may repeat X1 if awakens during the night 1 tablet at bedtime Docusate Sodium [facility] [address]-09 50 MG Orally 2 times a day 1 capsule as needed Metoprolol Tartrate [facility] [address]-91 25 mg Sep 05, 2014 0.5 Tablet by Oral route 1 time per day Xanax XR [facility] [address]-21 2 MG Orally 2 times a day March 06, 2015 1 tablet Wellbutrin XL [facility] [address]-00 300 MG TAKE ONE TABLET BY MOUTH ONCE DAILY Aspir-Low [facility] [address]-90 81 MG Orally Once a day 1 tablet Levothyroxine Sodium [facility] [id number] 25 MCG TAKE ONE TABLET BY MOUTH DAILY pravastatin [facility] [address]-41 40 mg Once a day May 20, 2014 1 tablet MiraLax [facility] [address]-80 17 gram/dose Aug 30, 2014 take 17 g mixed with 8 oz. water or juice by Oral route 1 time per day Omeprazole [facility] [address]-33 20 MG Orally Once a day May 20, 2014 1 capsule by Oral route 1 time per day Procedures Procedure Coding System Code Date VENIPUNCT, ROUTINE* CPT-4 97804 Sep 08, 2015 [facility] ESTABL[facility] PATIENT CPT-4 G0467 Sep 08, 2015 LAB [facility] CPT-4 NOBLL Sep 08, 2015 Office Visit, Est Pt., Level 3 CPT-4 05469 Sep 08, 2015 Vital Signs Date/Time: Sep 08, 2015 Temperature 98.0 F Weight 150 lbs Height 66 in BMI 24.21 Index Blood Pressure Diastolic 64 mmHg Blood Pressure Systolic 104 mmHg Cardiac Monitoring Heart Rate 64 bpm Results Name Result Date Reference Range Unit Abnormality Flag ROUTINE VENIPUNCTURE BMP Summary Purpose eClinicalWorks Submission
--- OUTSIDE RECORDS SUMMARY | 2017-11-09 00:28 | XMS REPORT ---
Author Author FRANCESCO PHILLIPS [facility] Address [address] [place] [address] Care Team Providers Care Coordinator Of Health Services Name Role Phone FRANCESCO PHILLIPS Unavailable PROBLEMS Type Condition ICD9-CM Code [id number] Code Onset Dates Condition Status SNOMED Code Problem Chronic kidney disease (CKD) stage G1/A1, glomerular filtration rate ( GFR) equal to or greater than 90 mL/min/1.73 square meter and albuminuria creatinine ratio less than 30 mg/g N18.1 Active 931000753 Problem Depression F32.9 Active 55989537 Problem Arthritis M19.90 Active 9950001 Problem MDD (major depressive disorder), recurrent, in partial remission F33.41 Active 11859648 Problem Generalized anxiety disorder F41.1 Active 16659699 Problem Atrial fibrillation, unspecified type I48.91 Active 94558528 Problem Anxiety F41.9 Active 81912246 Problem Gastro-esophageal reflux disease without esophagitis K21.9 Active 817942335 Problem Paroxysmal atrial fibrillation I48.0 Active 516713261 ALLERGIES No Information SOCIAL HISTORY Never Assessed [...]
--- OUTSIDE RECORDS SUMMARY | 2017-11-09 00:28 | XMS REPORT ---
Author Author FRANCESCO PHILLIPS [facility] eClinicalWorks Address Unknown Phone Unavailable Care Team Providers Care Casino Cashier Name Role Phone FRANCESCO PHILLIPS CP Unavailable [...] unspecified 300.00 Active Medications No Known Medications Procedures Procedure Coding System Code Date VENIPUNCT, ROUTINE* CPT-4 84731 Oct 31, 2015 LAB NOT BILLED BY [facility] CPT-4 NOBLL Oct 31, 2015 Results Name Result Date Reference Range Unit Abnormality Flag ROUTINE VENIPUNCTURE Summary Purpose eClinicalWorks Submission
--- OUTSIDE RECORDS SUMMARY | 2017-11-09 00:29 | XMS REPORT ---
Author Author FRANCESCO PHILLIPS [facility] Address [address] [place] [address] Care Team Providers Care Bale Sewer Name Role Phone FRANCESCO PHILLIPS Unavailable PROBLEMS Type Condition ICD9-CM Code [id number] Code Onset Dates Condition Status SNOMED Code Problem Chronic kidney disease (CKD) stage G1/A1, glomerular filtration rate ( GFR) equal to or greater than 90 mL/min/1.73 square meter and albuminuria creatinine ratio less than 30 mg/g N18.1 Active 195963031 Problem Depression F32.9 Active 58754334 Problem Arthritis M19.90 Active 4963925 Problem MDD (major depressive disorder), recurrent, in partial remission F33.41 Active 26630436 Problem Generalized anxiety disorder F41.1 Active 51149819 Problem Atrial fibrillation, unspecified type I48.91 Active 42760254 Problem Anxiety F41.9 Active 05896483 Problem Gastro-esophageal reflux disease without esophagitis K21.9 Active 212583630 Problem Paroxysmal atrial fibrillation I48.0 Active 433394182 ALLERGIES Substance Reaction Event Type Date Status morphine vomiting Drug Allergy Oct, Active Adhesive Tape itching, rash Drug Allergy Oct, Active SOCIAL HISTORY No smoking Hx information available PLAN OF CARE Activity Details Follow Up Regular appt Reason: VITAL SIGNS Height 66 in 2016-11-02 Weight 126.5 lbs 2016-11-02 Temperature 97.8 degrees Fahrenheit 2016-11-02 Heart Rate 62 bpm 2016-11-02 Respiratory Rate 20 2016-11-02 BMI 20.42 kg/m2 2016-11-02 Blood pressure systolic 102 mmHg 2016-11-02 Blood pressure diastolic 68 mmHg 2016-11-02 MEDICATIONS Medication Instructions Dosage Frequency Start Date End Date Duration Status Omeprazole 20 MG Orally Once a day 1 capsule by Oral route 1 time per day 24h Apr, Active Toprol XL 25 MG Orally Once a day 1 tablet 24h Active Docusate Sodium 50 MG Orally 2 times a day 1 capsule as needed 12h Active Aspir-Low 81 MG Orally Once a day 1 tablet 24h Active Coumadin 5 MG Orally Once a day 1 tablet 24h Active BuPROPion HCl (XL) 300 MG TAKE ONE TABLET BY MOUTH ONCE DAILY 30 Active Lasix 40 MG Orally Once a day 1 tablet 24h Active Metoclopramide HCl 5MG TAKE 1 TABLET THREE TIMES A DAY Active Niacin 100 MG Orally Once a day 1 tablet 24h Active Vitamin D 1000 UNIT Orally Once a day 1 tablet 24h Active Iron (Ferrous Gluconate) 256 (28 Fe) MG Active Levothyroxine Sodium 25 MCG TAKE ONE TABLET BY MOUTH DAILY 30 Active pravastatin 40 mg by oral route Once a day 1 tablet 24h Apr, Active Alprazolam 1 MG TAKE ONE TABLET BY MOUTH THREE TIMES DAILY Active Polyethylene Glycol 3350 MIX 17 GRAMS IN 8 OZ OF SUITABLE LIQUID AND DRINK ONCE DAILY 30 Active Wellbutrin XL 300 MG Orally Once a day 1 tablet 24h Active RESULTS No Results PROCEDURES Procedure Date Ordered Related Diagnosis Body Site [facility] VISIT ESTABLISHED PATIENT Nov 02, 2016 Office Visit, Est Pt., Level 2 Nov 02, 2016 IMMUNIZATIONS No Known Immunizations
--- OUTSIDE RECORDS SUMMARY | 2017-11-09 00:29 | XMS REPORT ---
Author KAI Mccoy [facility] eClinicalWorks Address Unknown Phone Unavailable Care Team Providers Care Associate Counsel Name Role Phone KAI CAZARES CP Unavailable Allergies, Adverse Reactions, Alerts Substance Reaction Event Type morphine vomiting Drug Allergy Adhesive Tape itching, rash Drug Allergy Problems Problem Type Condition Code Onset Dates Condition Status Assessment Major depressive disorder, recurrent, in partial remission F33.41 Active Assessment Generalized anxiety disorder F41.1 Active Problem Anxiety F41.9 Active Problem Arthritis [...] Instructions Start Date End Date Status Dosage Mucinex [facility] [address]-17 600 MG Orally every 12 hrs Jul 07, 2016 1 tablet as needed Omeprazole [facility] [address]-37 20 MG Orally Once a day May 20, 2014 1 capsule by Oral route 1 time per day Polyethylene Glycol 3350 [facility] [id number] MIX 17 GRAMS IN 8 OZ OF SUITABLE LIQUID AND DRINK ONCE DAILY Vitamin D [facility] [address]-17 1000 UNIT Orally Once a day 1 tablet Metoclopramide HCl [facility] 25028833905 NA 1 TABLET BY ORAL ROUTE 3 TIMES PER DAY Wellbutrin XL [facility] [address]-37 300 MG Orally Once a day 1 tablet Docusate Sodium [facility] [address]-14 50 MG Orally 2 times a day 1 capsule as needed Alprazolam [facility] [address]-18 1 MG Orally 3 times a day Jul 23, 2016 1 tablet Aspir-Low [facility] [address]-79 81 MG Orally Once a day 1 tablet Metoprolol Tartrate [facility] [address]-69 25 mg Sep 05, 2014 0.5 Tablet by Oral route 1 time per day BuPROPion HCl (XL) [facility] [address]-26 300 MG TAKE ONE TABLET BY MOUTH ONCE DAILY Trazodone HCl [facility] 25597581291 150 MG TAKE ONE TABLET BY MOUTH AT BEDTIME NEEDED pravastatin [facility] [address]-36 40 mg by oral route Once a day May 20, 2014 1 tablet Levothyroxine Sodium [facility] 26661328350 25 MCG TAKE ONE TABLET BY MOUTH DAILY PredniSONE [facility] [address]-25 20 mg Orally Once a day Jul 08, 2016 2 qd 3d, 1 qd3d Procedures Procedure Coding System Code Date Office Visit, Est Pt., Level 3 CPT-4 20470 Aug 03, 2016 [facility] VISIT ESTABLISHED PATIENT CPT-4 G0467 Aug 03, 2016 Vital Signs Date/Time: Aug 03, 2016 Blood Pressure Systolic 95 mmHg Weight 140.3 lbs Height 66 in BMI 22.64 Index Blood Pressure Diastolic 64 mmHg Results No Known Results Summary Purpose eClinicalWorks Submission
--- OUTSIDE RECORDS SUMMARY | 2017-11-09 00:29 | XMS REPORT ---
Author Author FRANCESCO PHILLIPS [facility] Address [address] [place] [address] Care Team Providers Care Fireworks Display Specialist Name Role Phone FRANCESCO PHILLIPS Unavailable PROBLEMS Type Condition ICD9-CM Code LZO58-FE Code Onset Dates Condition Status SNOMED Code Assessment Memory loss R41.3 Jun, Active 54032109 Problem Anxiety state, unspecified 300.00 Active 957777815 Assessment Bronchitis J40 Jun, Active 65003502 Problem Depression F32.9 Active 15056212 Problem Anxiety F41.9 Active 75285774 Problem GERD (gastroesophageal reflux disease) K21.9 Active 312737374 Problem Hyperlipidemia 272.4 Active 82080753 Problem Arthritis M19.90 Active 6843482 Problem Chronic kidney disease (CKD) stage G1/A1, glomerular filtration rate ( GFR) equal to or greater than 90 mL/min/1.73 square meter and albuminuria creatinine ratio less than 30 mg/g N18.1 Active 201127461 ALLERGIES Substance Reaction Event Type Date Status morphine vomiting Drug Allergy Jun, Active Adhesive Tape itching, rash Drug Allergy Jun, Active SOCIAL HISTORY No smoking Hx information available PLAN OF CARE VITAL SIGNS Height 66 in 2016-07-08 Weight 137 lbs 2016-07-08 Heart Rate 70 bpm 2016-07-08 Respiratory Rate 18 2016-07-08 BMI 22.11 kg/m2 2016-07-08 Blood pressure systolic 112 mmHg 2016-07-08 Blood pressure diastolic 76 mmHg 2016-07-08 MEDICATIONS Medication Instructions Dosage Frequency Start Date End Date Duration Status Mucinex 600 MG Orally every 12 hrs 1 tablet as needed 12h 14 Jun, 2016 Active Docusate Sodium 50 MG Orally 2 times a day 1 capsule as needed 12h Active Metoclopramide HCl NA 1 TABLET BY ORAL ROUTE 3 TIMES PER DAY Active Polyethylene Glycol 3350 MIX 17 GRAMS IN 8 OZ OF SUITABLE LIQUID AND DRINK ONCE DAILY 30 Active Metoprolol Tartrate 25 mg 0.5 Tablet by Oral route 1 time per day Aug, Active pravastatin 40 mg by oral route Once a day 1 tablet 24h Apr, Active Levothyroxine Sodium 25 MCG TAKE ONE TABLET BY MOUTH DAILY 30 Active Omeprazole 20 MG Orally Once a day 1 capsule by Oral route 1 time per day 24h Apr, Active PredniSONE 20 mg Orally Once a day 2 qd 3d, 1 qd3d 24h Jun, Active Aspir-Low 81 MG Orally Once a day 1 tablet 24h Active Trazodone HCl 150 MG Orally Once a day as needed to sleep 1 tablet at bedtime Active Vitamin D 1000 UNIT Orally Once a day 1 tablet 24h Active BuPROPion HCl (XL) 300 MG TAKE ONE TABLET BY MOUTH ONCE DAILY 30 Active Alprazolam XR 2 MG TAKE ONE TABLET BY MOUTH TWICE DAILY Active Wellbutrin XL 300 MG Orally Once a day 1 tablet 24h Active RESULTS No Results PROCEDURES Procedure Date Ordered Related Diagnosis Body Site [facility] VISIT ESTABLISHED PATIENT Jul 08, 2016 Office Visit, Est Pt., Level 4 Jul 08, 2016 IMMUNIZATIONS No Known Immunizations
--- OUTSIDE RECORDS SUMMARY | 2017-11-09 00:29 | XMS REPORT ---
Author Author KAI CAZARES [facility] eClinicalWorks Address Unknown Phone Unavailable Care Team Providers Care Solar Sales Manager Name Role Phone KAI CAZARES CP Unavailable Allergies, Adverse Reactions, Alerts Substance Reaction Event Type morphine vomiting Drug Allergy Adhesive Tape itching, rash Drug Allergy Problems Problem Type Condition Code Onset Dates Condition Status Assessment Psychophysiological insomnia F51.04 Active Assessment Recurrent major depressive disorder in remission F33.40 Active Assessment Generalized anxiety disorder F41.1 Active [...] Instructions Start Date End Date Status Dosage Levothyroxine Sodium [facility] 46920492289 25 MCG TAKE ONE TABLET BY MOUTH DAILY Docusate Sodium [facility] [address]-19 50 MG Orally 2 times a day 1 capsule as needed Wellbutrin XL [facility] [address]-61 300 MG Orally Once a day 1 tablet Omeprazole [facility] [address]-72 20 MG Orally Once a day May 20, 2014 1 capsule by Oral route 1 time per day pravastatin [facility] [address]-26 40 mg Once a day May 20, 2014 1 tablet Aspir-Low [facility] [address]-26 81 MG Orally Once a day 1 tablet Trazodone HCl [facility] [address]-57 150 MG Orally Once a day as needed to sleep 1 tablet at bedtime Alprazolam XR [facility] [address]-60 2 MG Orally 2 times a day 1 tablet Metoclopramide HCl [facility] 40982900435 NA 1 TABLET BY ORAL ROUTE 3 TIMES PER DAY Polyethylene Glycol [address] [facility] 80853830036 MIX 17 GRAMS IN 8 OZ OF SUITABLE LIQUID AND DRINK ONCE DAILY Metoprolol Tartrate [facility] [address]-34 25 mg Sep 05, 2014 0.5 Tablet by Oral route 1 time per day Procedures Procedure Coding System Code Date Office Visit, Est Pt., Level 3 CPT-4 04792 February 05, 2016 [facility] VISIT ESTABLISHED PATIENT CPT-4 G0467 February 05, 2016 Vital Signs Date/Time: February 05, 2016 Cardiac Monitoring Heart Rate 64 bpm Weight 150.6 lbs Height 66 in BMI 24.30 Index Blood Pressure Diastolic 64 mmHg Blood Pressure Systolic 110 mmHg Results No Known Results Summary Purpose eClinicalWorks Submission
--- OUTSIDE RECORDS SUMMARY | 2017-11-09 00:29 | XMS REPORT ---
Author Author FRANCESCO PHILLIPS [facility] Address [address] [place] [address] Care Team Providers Care Solution Make Up Operator Name Role Phone FRANCESCO PHILLIPS Unavailable PROBLEMS Type Condition ICD9-CM Code [id number] Code Onset Dates Condition Status SNOMED Code Problem Chronic kidney disease (CKD) stage G1/A1, glomerular filtration rate ( GFR) equal to or greater than 90 mL/min/1.73 square meter and albuminuria creatinine ratio less than 30 mg/g N18.1 Active 298112326 Problem Depression F32.9 Active 52965505 Problem Arthritis M19.90 Active 2764438 Problem MDD (major depressive disorder), recurrent, in partial remission F33.41 Active 87185291 Problem Generalized anxiety disorder F41.1 Active 90979792 Problem Atrial fibrillation, unspecified type I48.91 Active 67830556 Problem Anxiety F41.9 Active 78871373 Problem Gastro-esophageal reflux disease without esophagitis K21.9 Active 285024909 Problem Paroxysmal atrial fibrillation I48.0 Active 886471001 ALLERGIES Substance Reaction Event Type Date Status morphine vomiting Drug Allergy February, Active Adhesive Tape itching, rash Drug Allergy February, Active SOCIAL HISTORY Never Assessed PLAN OF CARE Activity Details Follow Up 3 Months Reason: VITAL SIGNS Height 66 in 2017-02-24 Weight 130. lbs 2017-02-24 Temperature 97.7 degrees Fahrenheit 2017-02-24 Heart Rate 62 bpm 2017-02-24 Respiratory Rate 18 2017-02-24 BMI 20.98 kg/m2 2017-02-24 Blood pressure systolic 136 mmHg 2017-02-24 Blood pressure diastolic 70 mmHg 2017-02-24 MEDICATIONS Medication Instructions Dosage Frequency Start Date End Date Duration Status pravastatin 40 mg by oral route Once a day 1 tablet 24h Apr, Active Iron (Ferrous Gluconate) 256 (28 Fe) MG Active Levothyroxine Sodium 25 MCG TAKE ONE TABLET BY MOUTH DAILY 30 Active Docusate Sodium 50 MG Orally 2 times a day 1 capsule as needed 12h Active Omeprazole 20 mg Orally Once a day 1 capsule 24h Apr, 90 days Active Alprazolam 2 MG Orally 3 times a day 1 tablet 8h 30 Active Metoclopramide HCl 5MG Orally 3 times a day 1 tablet 8h 90 days Active Toprol XL 25 MG Orally Once a day 1 tablet 24h Active Polyethylene Glycol 3350 MIX 17 GRAMS IN 8 OZ OF SUITABLE LIQUID AND DRINK ONCE DAILY 30 Active Wellbutrin XL 300 MG Orally Once a day 1 tablet 24h Active Eliquis 2.5 MG Orally 2 times a day 1 tablet 12h Active Vitamin D 1000 UNIT Orally Once a day 1 tablet 24h Active Aspir-Low 81 MG Orally Once a day 1 tablet 24h Active Lasix 40 MG Orally Once a day 1 tablet 24h Active BuPROPion HCl (XL) 300 MG Orally Once a day TAKE ONE TABLET BY MOUTH ONCE DAILY 24h 30 days Active RESULTS No Results PROCEDURES Procedure Date Ordered Result Body Site EKG, TRACING (IN-HOUSE) 2017-02-24 N/A ELECTROCARDIOGRAM, TRACING February 24, 2017 [facility] VISIT ESTABLISHED PATIENT February 24, 2017 IMMUNIZATIONS No Known Immunizations MEDICAL (GENERAL) [...]
--- OUTSIDE RECORDS SUMMARY | 2017-11-09 00:29 | XMS REPORT ---
Author Author FRANCESCO PHILLIPS [facility] Address [address] [place] [address] Care Team Providers Care Ethylene Compressor Operator Name Role Phone FRANCESCO PHILLIPS Unavailable PROBLEMS Type Condition ICD9-CM Code [id number] Code Onset Dates Condition Status SNOMED Code Problem Chronic kidney disease (CKD) stage G1/A1, glomerular filtration rate ( GFR) equal to or greater than 90 mL/min/1.73 square meter and albuminuria creatinine ratio less than 30 mg/g N18.1 Active 407871676 Problem Depression F32.9 Active 52297387 Problem Arthritis M19.90 Active 5215644 Problem MDD (major depressive disorder), recurrent, in partial remission F33.41 Active 56192662 Problem Generalized anxiety disorder F41.1 Active 01012026 Problem Atrial fibrillation, unspecified type I48.91 Active 17058323 Problem Anxiety F41.9 Active 67247193 Problem Gastro-esophageal reflux disease without esophagitis K21.9 Active 502449644 Problem Paroxysmal atrial fibrillation I48.0 Active 506476085 ALLERGIES No Information SOCIAL HISTORY Never Assessed [...]
--- OUTSIDE RECORDS SUMMARY | 2017-11-09 00:29 | XMS REPORT ---
Author Author FRANCESCO PHILLIPS Organization eClinicalWorks Address Unknown Phone Unavailable Care Team Providers Care Bonding Molder Name Role Phone FRANCESCO PHILLIPS CP Unavailable [...] Start Date End Date Status Dosage Omeprazole [facility] [address]-90 20 MG Orally Once a day May 20, 2014 1 capsule by Oral route 1 time per day Results No Known Results Summary Purpose eClinicalWorks Submission
--- OUTSIDE RECORDS SUMMARY | 2017-11-09 00:29 | XMS REPORT ---
Author Author SHMUEL PAYAN Organization [facility] Address [address] [place] [address] Care Team Providers Care Eyelet Operator Name Role Phone SHMUEL PAYAN Unavailable PROBLEMS Type Condition ICD9-CM Code [id number] Code Onset Dates Condition Status SNOMED Code Problem Chronic kidney disease (CKD) stage G1/A1, glomerular filtration rate ( GFR) equal to or greater than 90 mL/min/1.73 square meter and albuminuria creatinine ratio less than 30 mg/g N18.1 Active 254802350 Problem Anxiety F41.9 Active 32378190 Problem Arthritis M19.90 Active 0739434 Problem MDD (major depressive disorder), recurrent, in partial remission F33.41 Active 29576096 Problem Generalized anxiety disorder F41.1 Active 61227338 Problem Atrial fibrillation, unspecified type I48.91 Active 49144446 Problem Depression F32.9 Active 97575283 Problem Gastro-esophageal reflux disease without esophagitis K21.9 Active 899148407 Problem Paroxysmal atrial fibrillation I48.0 Active 750325516 ALLERGIES Substance Reaction Event Type Date Status morphine vomiting Drug Allergy Aug, Active Adhesive Tape itching, rash Drug Allergy Aug, Active SOCIAL HISTORY No smoking Hx information available PLAN OF CARE Activity Details Follow Up as scheduled with PCP Reason: VITAL SIGNS Height 66 in 2016-08-24 Weight 140 lbs 2016-08-24 Temperature 98.1 degrees Fahrenheit 2016-08-24 Heart Rate 84 bpm 2016-08-24 Respiratory Rate 18 2016-08-24 BMI 22.59 kg/m2 2016-08-24 Blood pressure systolic 120 mmHg 2016-08-24 Blood pressure diastolic 78 mmHg 2016-08-24 MEDICATIONS Medication Instructions Dosage Frequency Start Date End Date Duration Status Docusate Sodium 50 MG Orally 2 times a day 1 capsule as needed 12h Active Wellbutrin XL 300 MG Orally Once a day 1 tablet 24h Active BuPROPion HCl (XL) 300 MG TAKE ONE TABLET BY MOUTH ONCE DAILY Active Omeprazole 20 MG Orally Once a day 1 capsule by Oral route 1 time per day 24h Apr, Active pravastatin 40 mg by oral route Once a day 1 tablet 24h Apr, Active Trazodone HCl 150 MG TAKE ONE TABLET BY MOUTH AT BEDTIME NEEDED Active Alprazolam 2 MG Orally 3 times a day 1 tablet 8h Jun, Active Levothyroxine Sodium 25 MCG TAKE ONE TABLET BY MOUTH DAILY 30 Active Toprol XL 25 MG [...] day 1 tablet 24h Active Metoclopramide HCl 5 MG Orally 2 times a day 2 tablets 12h Active RESULTS No Results PROCEDURES Procedure Date Ordered Related Diagnosis Body Site [facility] VISIT ESTABLISHED PATIENT Aug 24, 2016 Office Visit, Est Pt., Level 4 Aug 24, 2016 IMMUNIZATIONS No Known Immunizations
--- OUTSIDE RECORDS SUMMARY | 2017-11-09 00:31 | XMS REPORT | Continuity of Care Document ---
Author Author [facility] Address Unknown Phone Unavailable Allergies Active Description Code Type Severity Reaction Onset Reported/Identified Relationship to Patient Clinical Status Yes TAPE TAPE Unknown RASH 08/12/2008 Yes morphine Drug Allergy N/A N/A 11/22/2008 Yes morphine Drug Allergy 11/22/2008 Yes morphine [id number] Drug Allergy Unknown N/V 12/03/2009 Yes Tape Adhesive OA N/A N/A 12/16/2011 Yes Tape Adhesive OA 12/16/2011 Medications There is no data. Problems Date Dx Coded Attending Type Code Diagnosis Diagnosed By 05/15/2008 ELAINE HANLEY DO 296.30 MAJOR DEPRESSIVE AFFECTIVE DISORDER RECURRENT EPISODE UNSPECIFIED DEGREE 05/15/2008 ELAINE HANLEY DO 300.00 An Anxiety Unspec 05/15/2008 ELAINE HANLEY DO 296.30 MAJOR DEPRESSIVE AFFECTIVE DISORDER RECURRENT EPISODE UNSPECIFIED DEGREE 05/15/2008 ELAINE HANLEY DO 300.00 An Anxiety Unspec 05/15/2008 296.30 MAJOR DEPRESSIVE AFFECTIVE DISORDER RECURRENT EPISODE UNSPECIFIED DEGREE 05/15/2008 300.00 An Anxiety Unspec 05/15/2008 296.30 MAJOR DEPRESSIVE AFFECTIVE DISORDER RECURRENT EPISODE UNSPECIFIED DEGREE 05/15/2008 300.00 An Anxiety Unspec 05/15/2008 ELAINE HANLEY DO 296.30 MAJOR DEPRESSIVE AFFECTIVE DISORDER RECURRENT EPISODE UNSPECIFIED DEGREE 05/15/2008 ELAINE HANLEY DO 300.00 An Anxiety Unspec 05/15/2008 ELAINE HANLEY DO 296.30 MAJOR DEPRESSIVE AFFECTIVE DISORDER RECURRENT EPISODE UNSPECIFIED DEGREE 05/15/2008 ELAINE HANLEY DO 300.00 An Anxiety Unspec 05/15/2008 296.30 MAJOR DEPRESSIVE AFFECTIVE DISORDER RECURRENT EPISODE UNSPECIFIED DEGREE 05/15/2008 300.00 An Anxiety Unspec 05/15/2008 296.30 MAJOR DEPRESSIVE AFFECTIVE DISORDER RECURRENT EPISODE UNSPECIFIED DEGREE 05/15/2008 300.00 An Anxiety Unspec 05/15/2008 296.30 MAJOR DEPRESSIVE AFFECTIVE DISORDER RECURRENT EPISODE UNSPECIFIED DEGREE 05/15/2008 300.00 An Anxiety Unspec 05/15/2008 FRANCESCO PHILLIPS MD 296.30 MAJOR DEPRESSIVE AFFECTIVE DISORDER RECURRENT EPISODE UNSPECIFIED DEGREE 05/15/2008 FRANCESCO PHILLIPS MD 300.00 An Anxiety Unspec 05/15/2008 ELAINE HANLEY DO 296.30 MAJOR DEPRESSIVE AFFECTIVE DISORDER RECURRENT EPISODE UNSPECIFIED DEGREE 05/15/2008 ELAINE HANLEY DO F 300.00 An Anxiety Unspec 05/15/2008 FRANCESCO PHILLIPS MD 296.30 MAJOR DEPRESSIVE AFFECTIVE DISORDER RECURRENT EPISODE UNSPECIFIED DEGREE 05/15/2008 FRANCESCO PHILLIPS MD 300.00 An Anxiety Unspec 05/15/2008 DAMIÁN STEEN APRN 296.30 MAJOR DEPRESSIVE AFFECTIVE DISORDER RECURRENT EPISODE UNSPECIFIED DEGREE 05/15/2008 DAMIÁN STEEN APRN 300.00 An Anxiety Unspec 05/15/2008 SACHA ORTEGA DDS J 296.30 MAJOR DEPRESSIVE AFFECTIVE DISORDER RECURRENT EPISODE UNSPECIFIED DEGREE 05/15/2008 SACHA ORTEGA DDS 300.00 An Anxiety Unspec 05/15/2008 FRANCESCO PHILLIPS MD 296.30 MAJOR DEPRESSIVE AFFECTIVE DISORDER RECURRENT EPISODE UNSPECIFIED DEGREE 05/15/2008 FRANCESCO PHILLIPS MD 300.00 An Anxiety Unspec 05/15/2008 FRANCESCO PHILLIPS MD 296.30 MAJOR DEPRESSIVE AFFECTIVE DISORDER RECURRENT EPISODE UNSPECIFIED DEGREE 05/15/2008 FRANCESCO PHILLIPS MD 300.00 An Anxiety Unspec 05/15/2008 DAMIÁN STEEN APRN 296.30 MAJOR DEPRESSIVE AFFECTIVE DISORDER RECURRENT EPISODE UNSPECIFIED DEGREE 05/15/2008 DAMIÁN STEEN APRN 300.00 An Anxiety Unspec 05/15/2008 ANASTASIYA JOHNSON APRN 296.30 MAJOR DEPRESSIVE AFFECTIVE DISORDER RECURRENT EPISODE UNSPECIFIED DEGREE 05/15/2008 CALLIE JOHNSON APRNETTE 300.00 An Anxiety Unspec 05/15/2008 FRANCESCO PHILLIPS MD 296.30 MAJOR DEPRESSIVE AFFECTIVE DISORDER RECURRENT EPISODE UNSPECIFIED DEGREE 05/15/2008 FRANCESCO PHILLIPS MD 300.00 An Anxiety Unspec 05/15/2008 CALLIE JOHNSON APRNETTE 296.30 MAJOR DEPRESSIVE AFFECTIVE DISORDER RECURRENT EPISODE UNSPECIFIED DEGREE 05/15/2008 ALEX PETER ANASTASIYA 300.00 An Anxiety Unspec 05/20/2008 ELAINE HANLEY DO 296.32 Major Depressive Affective Disorder Recurrent Episode Moderate Degree 05/20/2008 ELAINE HANLEY DO 296.32 Major Depressive Affective Disorder Recurrent Episode Moderate Degree 05/20/2008 296.32 Major Depressive Affective Disorder Recurrent Episode Moderate Degree 05/20/2008 296.32 Major Depressive Affective Disorder Recurrent Episode Moderate Degree 05/20/2008 ELAINE HANLEY DO 296.32 Major Depressive Affective Disorder Recurrent Episode Moderate Degree 05/20/2008 ELAINE HANLEY DO 296.32 Major Depressive Affective Disorder Recurrent Episode Moderate Degree 05/20/2008 296.32 Major Depressive Affective Disorder Recurrent Episode Moderate Degree 05/20/2008 296.32 Major Depressive Affective Disorder Recurrent Episode Moderate Degree 05/20/2008 296.32 Major Depressive Affective Disorder Recurrent Episode Moderate Degree 05/20/2008 FRANCESCO PHILLIPS MD 296.32 Major Depressive Affective Disorder Recurrent Episode Moderate Degree 05/20/2008 ELAINE HANLEY DO 296.32 Major Depressive Affective Disorder Recurrent Episode Moderate Degree 05/20/2008 FRANCESCO PHILLIPS MD 296.32 Major Depressive Affective Disorder Recurrent Episode Moderate Degree 05/20/2008 DAMIÁN STEEN APRN 296.32 Major Depressive Affective Disorder Recurrent Episode Moderate Degree 05/20/2008 SACHA ORTEGA DDS 296.32 Major Depressive Affective Disorder Recurrent Episode Moderate Degree 05/20/2008 FRANCESCO PHILLIPS MD 296.32 Major Depressive Affective Disorder Recurrent Episode Moderate Degree 05/20/2008 FRANCESCO PHILLIPS MD 296.32 Major Depressive Affective Disorder Recurrent Episode Moderate Degree 05/20/2008 DAMIÁN STEEN APRN ODILON 296.32 Major Depressive Affective Disorder Recurrent Episode Moderate Degree 05/20/2008 ALEX PETER, ANASTASIYA 296.32 Major Depressive Affective Disorder Recurrent Episode Moderate Degree 05/20/2008 FRANCESCO PHILLIPS MD 296.32 Major Depressive Affective Disorder Recurrent Episode Moderate Degree 05/20/2008 ALEXLANDY PETER, ANASTASIYA 296.32 Major Depressive Affective Disorder Recurrent Episode Moderate Degree 07/16/2008 ELAINE HANLEY DO 309.9 AD ADJ D/O NOS 07/16/2008 ELAINE HANLEY DO 311 MO DEPRESSIVE DISORDER NOS 07/16/2008 ELAINE HANLEY DO 309.9 AD ADJ D/O NOS 07/16/2008 ELAINE HANLEY DO 311 MO DEPRESSIVE DISORDER NOS 07/16/2008 309.9 AD ADJ D/O NOS 07/16/2008 311 MO DEPRESSIVE DISORDER NOS 07/16/2008 309.9 AD ADJ D/O NOS 07/16/2008 311 MO DEPRESSIVE DISORDER NOS 07/16/2008 ELAINE HANLEY DO 309.9 AD ADJ D/O NOS 07/16/2008 ELAINE HANLEY DO 311 MO DEPRESSIVE DISORDER NOS 07/16/2008 ELAINE HANLEY DO F 309.9 AD ADJ D/O NOS 07/16/2008 DAYAN CLAYTON ELAINE F 311 MO DEPRESSIVE DISORDER NOS 07/16/2008 309.9 AD ADJ D/O NOS 07/16/2008 311 MO DEPRESSIVE DISORDER NOS 07/16/2008 309.9 AD ADJ D/O NOS 07/16/2008 311 MO DEPRESSIVE DISORDER NOS 07/16/2008 309.9 AD ADJ D/O NOS 07/16/2008 311 MO DEPRESSIVE DISORDER NOS 07/16/2008 FRANCESCO PHILLIPS MD 309.9 AD ADJ D/O NOS 07/16/2008 FRANCESCO PHILLIPS MD 311 MO DEPRESSIVE DISORDER NOS 07/16/2008 ELAINE HANLEY DO 309.9 AD ADJ D/O NOS 07/16/2008 ELAINE HANLEY DO 311 MO DEPRESSIVE DISORDER NOS 07/16/2008 FRANCESCO PHILLIPS MD 309.9 AD ADJ D/O NOS 07/16/2008 FRANCESCO PHILLIPS MD 311 MO DEPRESSIVE DISORDER NOS 07/16/2008 DAMIÁN STEEN APRN 309.9 AD ADJ D/O NOS 07/16/2008 DAMIÁN STEEN APRN 311 MO DEPRESSIVE DISORDER NOS 07/16/2008 WHITE DDS, SACHA J 309.9 AD ADJ D/O NOS 07/16/2008 WHITE DDS, SACHA J 311 MO DEPRESSIVE DISORDER NOS 07/16/2008 FRANCESCO PHILLIPS MD 309.9 AD ADJ D/O NOS 07/16/2008 FRANCESCO PHILLIPS MD 311 MO DEPRESSIVE DISORDER NOS 07/16/2008 FRANCESCO PHILLIPS MD 309.9 AD ADJ D/O NOS 07/16/2008 FRANCESCO PHILLIPS MD 311 MO DEPRESSIVE DISORDER NOS 07/16/2008 DAMIÁN STEEN APRN 309.9 AD ADJ D/O NOS 07/16/2008 DAMIÁN STEEN APRN 311 MO DEPRESSIVE DISORDER NOS 07/16/2008 CALLIE JOHNSON APRNETTE 309.9 AD ADJ D/O NOS 07/16/2008 ANASTASIYA JOHNSON APRN 311 MO DEPRESSIVE DISORDER NOS 07/16/2008 FRANCESCO PHILLIPS MD 309.9 AD ADJ D/O NOS 07/16/2008 FRANCESCO PHILLIPS MD 311 MO DEPRESSIVE DISORDER NOS 07/16/2008 ANASTASIYA JOHNSON APRN 309.9 AD ADJ D/O NOS 07/16/2008 ANASTASIYA JOHNSON APRN 311 MO DEPRESSIVE DISORDER NOS 09/25/2008 ELAINE HANLEY DO 307.47 SI DYSSOMNIA NOS 09/25/2008 ELAINE HANLEY DO 307.47 SI DYSSOMNIA NOS 09/25/2008 307.47 SI DYSSOMNIA NOS 09/25/2008 307.47 SI DYSSOMNIA NOS 09/25/2008 ELAINE HANLEY DO 307.47 SI DYSSOMNIA NOS 09/25/2008 ELAINE HANLEY DO 307.47 SI DYSSOMNIA NOS 09/25/2008 307.47 SI DYSSOMNIA NOS 09/25/2008 307.47 SI DYSSOMNIA NOS 09/25/2008 307.47 SI DYSSOMNIA NOS 09/25/2008 FRANCESCO PHILLIPS MD 307.47 SI DYSSOMNIA NOS 09/25/2008 ELAINE HANLEY DO 307.47 SI DYSSOMNIA NOS 09/25/2008 FRANCESCO PHILLIPS MD 307.47 SI DYSSOMNIA NOS 09/25/2008 DAMIÁN STEEN APRN 307.47 SI DYSSOMNIA NOS 09/25/2008 SHANNON BAZANS, SACHA Granados 307.47 SI DYSSOMNIA NOS 09/25/2008 FRANCESCO PHILLIPS MD 307.47 SI DYSSOMNIA NOS 09/25/2008 FRANCESCO PHILLIPS MD 307.47 SI DYSSOMNIA NOS 09/25/2008 DAMIÁN STEEN APRN 307.47 SI DYSSOMNIA NOS 09/25/2008 ANASTASIYA JOHNSON APRN 307.47 SI DYSSOMNIA NOS 09/25/2008 FRANCESCO PHILLIPS MD 307.47 SI DYSSOMNIA NOS 09/25/2008 ANASTASIYA JOHNSON APRN 307.47 SI DYSSOMNIA NOS 10/02/2008 ELAINE HANLEY DO V58.69 Taking High-risk Medication 10/02/2008 ELAINE HANLEY DO V58.69 Taking High-risk Medication 10/02/2008 V58.69 Taking High- risk Medication 10/02/2008 V58.69 Taking High- risk Medication 10/02/2008 ELAINE HANLEY DO V58.69 Taking High-risk Medication 10/02/2008 ELAINE HANLEY DO V58.69 Taking High-risk Medication 10/02/2008 V58.69 Taking High- risk Medication 10/02/2008 V58.69 Taking High- risk Medication 10/02/2008 V58.69 Taking High- risk Medication 10/02/2008 FRANCESCO PHILLIPS MD V58.69 Taking High-risk Medication 10/02/2008 ELAINE HANLEY DO V58.69 Taking High-risk Medication 10/02/2008 FRANCESCO PHILLIPS MD V58.69 Taking High-risk Medication 10/02/2008 CELSA PETER DAMIÁN DONALD V58.69 Taking High-risk Medication 10/02/2008 SACHA ORTEGA DDS V58.69 Taking High-risk Medication 10/02/2008 FRANCESCO PHILLIPS MD V58.69 Taking High-risk Medication 10/02/2008 FRANCESCO PHILLIPS MD V58.69 Taking High-risk Medication 10/02/2008 CELSA PETER DAMIÁN DONALD V58.69 Taking High-risk Medication 10/02/2008 ANASTASIYA JOHNSON APRN V58.69 Taking High-risk Medication 10/02/2008 FRANCESCO PHILLIPS MD V58.69 Taking High-risk Medication 10/02/2008 ANASTASIYA JOHNSON APRN V58.69 Taking High-risk Medication 10/05/2008 ELIANE HANLEY DO 790.29 Prediabetes 10/05/2008 ELAINE HANLEY DO 790.29 Prediabetes 10/05/2008 790.29 Prediabetes 10/05/2008 790.29 Prediabetes 10/05/2008 ELAINE HANLEY DO 790.29 Prediabetes 10/05/2008 ELAINE HANLEY DO F 790.29 Prediabetes 10/05/2008 790.29 Prediabetes 10/05/2008 790.29 Prediabetes 10/05/2008 790.29 Prediabetes 10/05/2008 FRANCESCO PHILLIPS MD 790.29 Prediabetes 10/05/2008 ELAINE HANLEY DO F 790.29 Prediabetes 10/05/2008 FRANCESCO PHILLIPS MD 790.29 Prediabetes 10/05/2008 CELSA PETER, DAMIÁN DONALD 790.29 Prediabetes 10/05/2008 WHITE DDS, SACHA Granados 790.29 Prediabetes 10/05/2008 FRANCESCO PHILLIPS MD 790.29 Prediabetes 10/05/2008 FRANCESCO PHILLIPS MD 790.29 Prediabetes 10/05/2008 CELSA PETER DAMIÁN DONALD 790.29 Prediabetes 10/05/2008 ALEX BRITTANI, ANASTASIYA 790.29 Prediabetes 10/05/2008 FRANCESCO PHILLIPS MD 790.29 Prediabetes 10/05/2008 ALEX BRITTANI, ANASTASIYA 790.29 Prediabetes 10/15/2008 ELAINE HANLEY DO F 995.20 Unspecified Adverse Effect Of Unspecified Drug Medicinal And Biological Substance 10/15/2008 ELAINE HANLEY DO E939.9 Unspecified Psychotropic Agent Causing Adverse Effects In Therapeutic Use 10/15/2008 ELAINE HANLEY DO F 995.20 Unspecified Adverse Effect Of Unspecified Drug Medicinal And Biological Substance 10/15/2008 ELAINE HANLEY DO E939.9 Unspecified Psychotropic Agent Causing Adverse Effects In Therapeutic Use 10/15/2008 995.20 Unspecified Adverse Effect Of Unspecified Drug Medicinal And Biological Substance 10/15/2008 E939.9 Unspecified Psychotropic Agent Causing Adverse Effects In Therapeutic Use 10/15/2008 995.20 Unspecified Adverse Effect Of Unspecified Drug Medicinal And Biological Substance 10/15/2008 E939.9 Unspecified Psychotropic Agent Causing Adverse Effects In Therapeutic Use 10/15/2008 ELAINE HANLEY DO F 995.20 Unspecified Adverse Effect Of Unspecified Drug Medicinal And Biological Substance 10/15/2008 ELAINE HANLEY DO F E939.9 Unspecified Psychotropic Agent Causing Adverse Effects In Therapeutic Use 10/15/2008 ELAINE HANLEY DO F 995.20 Unspecified Adverse Effect Of Unspecified Drug Medicinal And Biological Substance 10/15/2008 ELAINE HANLEY DO E939.9 Unspecified Psychotropic Agent Causing Adverse Effects In Therapeutic Use 10/15/2008 995.20 Unspecified Adverse Effect Of Unspecified Drug Medicinal And Biological Substance 10/15/2008 E939.9 Unspecified Psychotropic Agent Causing Adverse Effects In Therapeutic Use 10/15/2008 995.20 Unspecified Adverse Effect Of Unspecified Drug Medicinal And Biological Substance 10/15/2008 E939.9 Unspecified Psychotropic Agent Causing Adverse Effects In Therapeutic Use 10/15/2008 995.20 Unspecified Adverse Effect Of Unspecified Drug Medicinal And Biological Substance 10/15/2008 E939.9 Unspecified Psychotropic Agent Causing Adverse Effects In Therapeutic Use 10/15/2008 FRANCESCO PHILLIPS MD 995.20 Unspecified Adverse Effect Of Unspecified Drug Medicinal And Biological Substance 10/15/2008 FRANCESCO PHILLIPS MD E939.9 Unspecified Psychotropic Agent Causing Adverse Effects In Therapeutic Use 10/15/2008 ELAINE HANLEY DO 995.20 Unspecified Adverse Effect Of Unspecified Drug Medicinal And Biological Substance 10/15/2008 ELAINE HANLEY DO E939.9 Unspecified Psychotropic Agent Causing Adverse Effects In Therapeutic Use 10/15/2008 FRANCESCO PHILLIPS MD 995.20 Unspecified Adverse Effect Of Unspecified Drug Medicinal And Biological Substance 10/15/2008 FRANCESCO PHILLIPS MD E939.9 Unspecified Psychotropic Agent Causing Adverse Effects In Therapeutic Use 10/15/2008 DAMIÁN STEEN APRN 995.20 Unspecified Adverse Effect Of Unspecified Drug Medicinal And Biological Substance 10/15/2008 DAMIÁN STEEN APRN E939.9 Unspecified Psychotropic Agent Causing Adverse Effects In Therapeutic Use 10/15/2008 SHANNON BAZANS, SACHA J 995.20 Unspecified Adverse Effect Of Unspecified Drug Medicinal And Biological Substance 10/15/2008 WHITE DDS, SACHA J E939.9 Unspecified Psychotropic Agent Causing Adverse Effects In Therapeutic Use 10/15/2008 FRANCESCO PHILLIPS MD 995.20 Unspecified Adverse Effect Of Unspecified Drug Medicinal And Biological Substance 10/15/2008 FRANCESCO PHILLIPS MD E939.9 Unspecified Psychotropic Agent Causing Adverse Effects In Therapeutic Use 10/15/2008 FRANCESCO PHILLIPS MD 995.20 Unspecified Adverse Effect Of Unspecified Drug Medicinal And Biological Substance 10/15/2008 FRANCESCO PHILLIPS MD E939.9 Unspecified Psychotropic Agent Causing Adverse Effects In Therapeutic Use 10/15/2008 DAMIÁN STEEN APRN 995.20 Unspecified Adverse Effect Of Unspecified Drug Medicinal And Biological Substance 10/15/2008 DAMIÁN STEEN APRN E939.9 Unspecified Psychotropic Agent Causing Adverse Effects In Therapeutic Use 10/15/2008 ALEX PETER ANASTASIYA 995.20 Unspecified Adverse Effect Of Unspecified Drug Medicinal And Biological Substance 10/15/2008 ALEX PETER ANASTASIYA E939.9 Unspecified Psychotropic Agent Causing Adverse Effects In Therapeutic Use 10/15/2008 FRANCESCO PHILLIPS MD 995.20 Unspecified Adverse Effect Of Unspecified Drug Medicinal And Biological Substance 10/15/2008 FRANCESCO PHILLIPS MD E939.9 Unspecified Psychotropic Agent Causing Adverse Effects In Therapeutic Use 10/15/2008 ALEX PETER ANASTASIYA 995.20 Unspecified Adverse Effect Of Unspecified Drug Medicinal And Biological Substance 10/15/2008 ALEX PETER ANASTASIYA E939.9 Unspecified Psychotropic Agent Causing Adverse Effects In Therapeutic Use 01/23/2009 ELAINE HANLEY DO 530.11 ESOPHAGITIS CHRONIC REFLUX 01/23/2009 ELAINE HANLEY DO 786.2 Cough 01/23/2009 ELAINE HANLEY DO 530.11 ESOPHAGITIS CHRONIC REFLUX 01/23/2009 ELAINE HANLEY DO 786.2 Cough 01/23/2009 530.11 ESOPHAGITIS CHRONIC REFLUX 01/23/2009 786.2 Cough 01/23/2009 530.11 ESOPHAGITIS CHRONIC REFLUX 01/23/2009 786.2 Cough 01/23/2009 ELAINE HANLEY DO 530.11 ESOPHAGITIS CHRONIC REFLUX 01/23/2009 ELAINE HANLEY DO 786.2 Cough 01/23/2009 ELAINE HANLEY DO 530.11 ESOPHAGITIS CHRONIC REFLUX 01/23/2009 ELAINE HANLEY DO 786.2 Cough 01/23/2009 530.11 ESOPHAGITIS CHRONIC REFLUX 01/23/2009 786.2 Cough 01/23/2009 530.11 ESOPHAGITIS CHRONIC REFLUX 01/23/2009 786.2 Cough 01/23/2009 530.11 ESOPHAGITIS CHRONIC REFLUX 01/23/2009 786.2 Cough 01/23/2009 FRANCESCO PHILLIPS MD 530.11 ESOPHAGITIS CHRONIC REFLUX 01/23/2009 FRANCESCO PHILLIPS MD 786.2 Cough 01/23/2009 ELAINE HANLEY DO 530.11 ESOPHAGITIS CHRONIC REFLUX 01/23/2009 ELAINE HANLEY DO 786.2 Cough 01/23/2009 ALAN HA, FRANCESCO 530.11 ESOPHAGITIS CHRONIC REFLUX 01/23/2009 FRANCESCO PHILLIPS MD 786.2 Cough 01/23/2009 STEEN VOCATIONAL TRAINING INSTRUCTOR, DAMIÁN DONALD 530.11 ESOPHAGITIS CHRONIC REFLUX 01/23/2009 STEEN VOCATIONAL TRAINING INSTRUCTOR, DAMIÁN DONALD 786.2 Cough 01/23/2009 WHITE DDS, SACHA J 530.11 ESOPHAGITIS CHRONIC REFLUX 01/23/2009 WHITE DDS, SACHA J 786.2 Cough 01/23/2009 FRANCESCO PHILLIPS MD 530.11 ESOPHAGITIS CHRONIC REFLUX 01/23/2009 ALAN HA, FRANCESCO 786.2 Cough 01/23/2009 ALAN HA, FRANCESCO 530.11 ESOPHAGITIS CHRONIC REFLUX 01/23/2009 FRANCESCO PHILLIPS MD 786.2 Cough 01/23/2009 CELSA PETER, DAMIÁN DONALD 530.11 ESOPHAGITIS CHRONIC REFLUX 01/23/2009 CELSA PETER, DAMIÁN DONALD 786.2 Cough 01/23/2009 ALEX VOCATIONAL TRAINING INSTRUCTOR, ANASTASIYA 530.11 ESOPHAGITIS CHRONIC REFLUX 01/23/2009 ALEX VOCATIONAL TRAINING INSTRUCTOR, ANASTASIYA 786.2 Cough 01/23/2009 ALAN HA, FRANCESCO 530.11 ESOPHAGITIS CHRONIC REFLUX 01/23/2009 FRANCESCO PHILLIPS MD 786.2 Cough 01/23/2009 ALEX VOCATIONAL TRAINING INSTRUCTOR, ANASTASIYA 530.11 ESOPHAGITIS CHRONIC REFLUX 01/23/2009 ALEX VOCATIONAL TRAINING INSTRUCTOR, ANASTASIYA 786.2 Cough 01/27/2009 ELAINE HANLEY DO 465.9 Upper Respiratory Infection 01/27/2009 ELAINE HANLEY DO 465.9 Upper Respiratory Infection 01/27/2009 465.9 Upper Respiratory Infection 01/27/2009 465.9 Upper Respiratory Infection 01/27/2009 ELAINE HANLEY DO 465.9 Upper Respiratory Infection 01/27/2009 ELAINE HANLEY DO 465.9 Upper Respiratory Infection 01/27/2009 465.9 Upper Respiratory Infection 01/27/2009 465.9 Upper Respiratory Infection 01/27/2009 465.9 Upper Respiratory Infection 01/27/2009 FRANCESCO PHILLIPS MD 465.9 Upper Respiratory Infection 01/27/2009 ELAINE HANLEY DO 465.9 Upper Respiratory Infection 01/27/2009 FRANCESCO PHILLIPS MD 465.9 Upper Respiratory Infection 01/27/2009 CELAS VOCATIONAL TRAINING INSTRUCTOR, DAMIÁN DONALD 465.9 Upper Respiratory Infection 01/27/2009 SHANNON BAZANS, SACHA Granados 465.9 Upper Respiratory Infection 01/27/2009 FRANCESCO PHILLIPS MD 465.9 Upper Respiratory Infection 01/27/2009 FRANCESCO PHILLIPS MD 465.9 Upper Respiratory Infection 01/27/2009 CELSA PETER, DAMIÁN DONALD 465.9 Upper Respiratory Infection 01/27/2009 ALEX VOCATIONAL TRAINING INSTRUCTOR, ANASTASIYA 465.9 Upper Respiratory Infection 01/27/2009 FRANCESCO PHILLIPS MD 465.9 Upper Respiratory Infection 01/27/2009 ALEX VOCATIONAL TRAINING INSTRUCTOR, ANASTASIYA 465.9 Upper Respiratory Infection 02/25/2009 ELAINE HANLEY DO 296.35 MO DEPRESSIVE RECURRENT IN PART OR UNSPECIFIED REMISSION 02/25/2009 ELAINE HANLEY DO 300.02 AN GEN ANXIETY 02/25/2009 ELAINE HANLEY DO 296.35 MO DEPRESSIVE RECURRENT IN PART OR UNSPECIFIED REMISSION 02/25/2009 ELAINE HANLEY DO 300.02 AN GEN ANXIETY 02/25/2009 296.35 MO DEPRESSIVE RECURRENT IN PART OR UNSPECIFIED REMISSION 02/25/2009 300.02 AN GEN ANXIETY 02/25/2009 296.35 MO DEPRESSIVE RECURRENT IN PART OR UNSPECIFIED REMISSION 02/25/2009 300.02 AN GEN ANXIETY 02/25/2009 ELAINE HANLEY DO 296.35 MO DEPRESSIVE RECURRENT IN PART OR UNSPECIFIED REMISSION 02/25/2009 ELAINE HANLEY DO 300.02 AN GEN ANXIETY 02/25/2009 ELAINE HANLEY DO 296.35 MO DEPRESSIVE RECURRENT IN PART OR UNSPECIFIED REMISSION 02/25/2009 ELAINE HANLEY DO 300.02 AN GEN ANXIETY 02/25/2009 296.35 MO DEPRESSIVE RECURRENT IN PART OR UNSPECIFIED REMISSION 02/25/2009 300.02 AN GEN ANXIETY 02/25/2009 296.35 MO DEPRESSIVE RECURRENT IN PART OR UNSPECIFIED REMISSION 02/25/2009 300.02 AN GEN ANXIETY 02/25/2009 296.35 MO DEPRESSIVE RECURRENT IN PART OR UNSPECIFIED REMISSION 02/25/2009 300.02 AN GEN ANXIETY 02/25/2009 FRANCESCO PHILLIPS MD 296.35 MO DEPRESSIVE RECURRENT IN PART OR UNSPECIFIED REMISSION 02/25/2009 FRANCESCO PHILLIPS MD 300.02 AN GEN ANXIETY 02/25/2009 ELAINE HANLEY DO 296.35 MO DEPRESSIVE RECURRENT IN PART OR UNSPECIFIED REMISSION 02/25/2009 ELAINE HANLEY DO 300.02 AN GEN ANXIETY 02/25/2009 FRANCESCO PHILLIPS MD 296.35 MO DEPRESSIVE RECURRENT IN PART OR UNSPECIFIED REMISSION 02/25/2009 FRANCESCO PHILLIPS MD 300.02 AN GEN ANXIETY 02/25/2009 CELSA PETER DAMIÁN ODILON 296.35 MO DEPRESSIVE RECURRENT IN PART OR UNSPECIFIED REMISSION 02/25/2009 DAMIÁN STEEN APRN 300.02 AN GEN ANXIETY 02/25/2009 SHANNON BAZANSSACHA J 296.35 MO DEPRESSIVE RECURRENT IN PART OR UNSPECIFIED REMISSION 02/25/2009 SACHA ORTEGA DDS J 300.02 AN GEN ANXIETY 02/25/2009 FRANCESCO PHILLIPS MD 296.35 MO DEPRESSIVE RECURRENT IN PART OR UNSPECIFIED REMISSION 02/25/2009 FRANCESCO PHILLIPS MD 300.02 AN GEN ANXIETY 02/25/2009 FRANCESCO PHILLIPS MD 296.35 MO DEPRESSIVE RECURRENT IN PART OR UNSPECIFIED REMISSION 02/25/2009 FRANCESCO PHILLIPS MD 300.02 AN GEN ANXIETY 02/25/2009 DAMIÁN STEEN APRN 296.35 MO DEPRESSIVE RECURRENT IN PART OR UNSPECIFIED REMISSION 02/25/2009 DAMIÁN STEEN APRN 300.02 AN GEN ANXIETY 02/25/2009 ANASTASIYA JOHNSON APRN 296.35 MO DEPRESSIVE RECURRENT IN PART OR UNSPECIFIED REMISSION 02/25/2009 ANASTASIYA JOHNSON APRN 300.02 AN GEN ANXIETY 02/25/2009 FRANCESCO PHILLIPS MD 296.35 MO DEPRESSIVE RECURRENT IN PART OR UNSPECIFIED REMISSION 02/25/2009 FRANCESCO PHILLIPS MD 300.02 AN GEN ANXIETY 02/25/2009 ANASTASIYA JOHNSON APRN 296.35 MO DEPRESSIVE RECURRENT IN PART OR UNSPECIFIED REMISSION 02/25/2009 ANASTASIYA JOHNSON APRN 300.02 AN GEN ANXIETY 03/24/2009 ELAINE HANLEY DO 564.00 Constipation Chronic 03/24/2009 ELAINE HANLEY DO E887 Fracture Cause Unspecified 03/24/2009 ELAINE HANLEY DO 564.00 Constipation Chronic 03/24/2009 ELAINE HANLEY DO E887 Fracture Cause Unspecified 03/24/2009 564.00 Constipation Chronic 03/24/2009 E887 Fracture Cause Unspecified 03/24/2009 564.00 Constipation Chronic 03/24/2009 E887 Fracture Cause Unspecified 03/24/2009 ELAINE HANLEY DO 564.00 Constipation Chronic 03/24/2009 ELAINE HANLEY DO E887 Fracture Cause Unspecified 03/24/2009 ELAINE HANLEY DO F 564.00 Constipation Chronic 03/24/2009 ELAINE HANLEY DO E887 Fracture Cause Unspecified 03/24/2009 564.00 Constipation Chronic 03/24/2009 E887 Fracture Cause Unspecified 03/24/2009 564.00 Constipation Chronic 03/24/2009 E887 Fracture Cause Unspecified 03/24/2009 564.00 Constipation Chronic 03/24/2009 E887 Fracture Cause Unspecified 03/24/2009 FRANCESCO PHILLIPS MD 564.00 Constipation Chronic 03/24/2009 FRANCESCO PHILLIPS MD E887 Fracture Cause Unspecified 03/24/2009 ELAINE HANLEY DO 564.00 Constipation Chronic 03/24/2009 ELAINE HANLEY DO E887 Fracture Cause Unspecified 03/24/2009 FRANCESCO PHILLIPS MD 564.00 Constipation Chronic 03/24/2009 FRANCESCO PHILLIPS MD E887 Fracture Cause Unspecified 03/24/2009 DAMIÁN STEEN APRN 564.00 Constipation Chronic 03/24/2009 DAMIÁN STEEN APRN E887 Fracture Cause Unspecified 03/24/2009 SHANNON BAZANSDREAON J 564.00 Constipation Chronic 03/24/2009 WHITE DDS, SACHA J E887 Fracture Cause Unspecified 03/24/2009 FRANCESCO PHILLIPS MD 564.00 Constipation Chronic 03/24/2009 FRANCESCO PHILLIPS MD E887 Fracture Cause Unspecified 03/24/2009 FRANCESCO PHILLIPS MD4.00 Constipation Chronic 03/24/2009 FRANCESCO PHILLIPS MD E887 Fracture Cause Unspecified 03/24/2009 DAMIÁN STEEN APRN 564.00 Constipation Chronic 03/24/2009 DAMIÁN STEEN APRN E887 Fracture Cause Unspecified 03/24/2009 ANASTASIYA JOHNSON APRN 564.00 Constipation Chronic 03/24/2009 ANASTASIYA JOHNSON APRN E887 Fracture Cause Unspecified 03/24/2009 FRANCESCO PHILLIPS MD 564.00 Constipation Chronic 03/24/2009 FRANCESCO PHILLIPS MD E887 Fracture Cause Unspecified 03/24/2009 ANASTASIYA JOHNSON APRN 564.00 Constipation Chronic 03/24/2009 ANASTASIYA JOHNSON APRN [id number] Fracture Cause Unspecified 04/03/2009 ELAINE HANLEY DO F 271.9 GLUCOSE INTOLERANCE 04/03/2009 ELAINE HANLEY DO F 271.9 GLUCOSE INTOLERANCE 04/03/2009 271.9 GLUCOSE INTOLERANCE 04/03/2009 271.9 GLUCOSE INTOLERANCE 04/03/2009 ELAINE HANLEY DO F 271.9 GLUCOSE INTOLERANCE 04/03/2009 ELAINE HANLEY DO F 271.9 GLUCOSE INTOLERANCE 04/03/2009 271.9 GLUCOSE INTOLERANCE 04/03/2009 271.9 GLUCOSE INTOLERANCE 04/03/2009 271.9 GLUCOSE INTOLERANCE 04/03/2009 FRANCESCO PHILLIPS MD 271.9 GLUCOSE INTOLERANCE 04/03/2009 ELAINE HANLEY DO 271.9 GLUCOSE INTOLERANCE 04/03/2009 FRANCESCO PHILLIPS MD 271.9 GLUCOSE INTOLERANCE 04/03/2009 DAMIÁN STEEN APRN 271.9 GLUCOSE INTOLERANCE 04/03/2009 SHANONN DDS, SACHA Granados 271.9 GLUCOSE INTOLERANCE 04/03/2009 FRANCESCO PHILLIPS MD 271.9 GLUCOSE INTOLERANCE 04/03/2009 FRANCESCO PHILLIPS MD 271.9 GLUCOSE INTOLERANCE 04/03/2009 DAMIÁN STEEN APRN 271.9 GLUCOSE INTOLERANCE 04/03/2009 ANASTASIYA JOHNSON APRN 271.9 GLUCOSE INTOLERANCE 04/03/2009 FRANCESCO PHILLIPS MD 271.9 GLUCOSE INTOLERANCE 04/03/2009 ANASTASIYA JOHNSON APRN 271.9 GLUCOSE INTOLERANCE 04/07/2009 ELAINE HANLEY DO 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 04/07/2009 ELAINE HANLEY DO F 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 04/07/2009 ELAINE HANLEY DO F 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 04/07/2009 ELAINE HANLEY DO F 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 04/07/2009 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 04/07/2009 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 04/07/2009 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 04/07/2009 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 04/07/2009 NAEDER DO, ELAINE F 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 04/07/2009 NAEDER DO, ELAINE F 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 04/07/2009 NAEDER DO, ELAINE F 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 04/07/2009 DAYAN CLAYTON ELAINE F 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 04/07/2009 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 04/07/2009 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 04/07/2009 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 04/07/2009 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 04/07/2009 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 04/07/2009 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 04/07/2009 FRANCESCO PHILLIPS MD 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 04/07/2009 FRANCESCO PHILLIPS MD 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 04/07/2009 DAYAN CLAYTON ELAINE F 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 04/07/2009 DAYAN CLAYTON ELAINE F 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 04/07/2009 FRANCESCO PHILLIPS MD 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 04/07/2009 FRANCESCO PHILLIPS MD 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 04/07/2009 DAMIÁN STEEN APRN 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 04/07/2009 DAMIÁN STEEN APRN 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 04/07/2009 WHITE DDS, SACHA J 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 04/07/2009 WHITE DDS, SACHA J 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 04/07/2009 FRANCESCO PHILLIPS MD 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 04/07/2009 FRANCESCO PHILLIPS MD 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 04/07/2009 FRANCESCO PHILLIPS MD 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 04/07/2009 FRANCESCO PHILLIPS MD 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 04/07/2009 CELSA BRITTANI, DAMIÁN DONALD 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 04/07/2009 STEEN BRITTANI, DAMIÁN DONALD 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 04/07/2009 ALEX VOCATIONAL TRAINING INSTRUCTOR, ANASTASIYA 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 04/07/2009 ALEX VOCATIONAL TRAINING INSTRUCTOR, ANASTASIYA 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 04/07/2009 FRANCESCO PHILLIPS MD 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 04/07/2009 FRANCESCO PHILLIPS MD 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 04/07/2009 ALEX VOCATIONAL TRAINING INSTRUCTOR, ANASTASIYA 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 04/07/2009 ALEX PETER, ANASTASIYA 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 04/08/2009 ELAIEN HANLEY DO F 272.4 HYPERLIPIDEMIA 04/08/2009 ELAINE HANLEY DO F 727.03 Trigger Finger Of Right Ring Finger 04/08/2009 ELAINE HANLEY DO F 272.4 HYPERLIPIDEMIA 04/08/2009 ELAINE HANLEY DO F 727.03 Trigger Finger Of Right Ring Finger 04/08/2009 272.4 HYPERLIPIDEMIA 04/08/2009 727.03 Trigger Finger Of Right Ring Finger 04/08/2009 272.4 HYPERLIPIDEMIA 04/08/2009 727.03 Trigger Finger Of Right Ring Finger 04/08/2009 ELAINE HANLEY DO F 272.4 HYPERLIPIDEMIA 04/08/2009 ELAINE HANLEY DO F 727.03 Trigger Finger Of Right Ring Finger 04/08/2009 ELAINE HANLEY DO F 272.4 HYPERLIPIDEMIA 04/08/2009 ELAINE HANLEY DO F 727.03 Trigger Finger Of Right Ring Finger 04/08/2009 272.4 HYPERLIPIDEMIA 04/08/2009 727.03 Trigger Finger Of Right Ring Finger 04/08/2009 272.4 HYPERLIPIDEMIA 04/08/2009 727.03 Trigger Finger Of Right Ring Finger 04/08/2009 272.4 HYPERLIPIDEMIA 04/08/2009 727.03 Trigger Finger Of Right Ring Finger 04/08/2009 FRANCESCO PHILLIPS MD 272.4 HYPERLIPIDEMIA 04/08/2009 FRANCESCO PHILLIPS MD 727.03 Trigger Finger Of Right Ring Finger 04/08/2009 ELAINE HANLEY DO F 272.4 HYPERLIPIDEMIA 04/08/2009 ELAINE HANLEY DO F 727.03 Trigger Finger Of Right Ring Finger 04/08/2009 FRANCESCO PHILLIPS MD 272.4 HYPERLIPIDEMIA 04/08/2009 ALAN HA, FRANCESCO 727.03 Trigger Finger Of Right Ring Finger 04/08/2009 CELSA PETER, DAMIÁN DONALD 272.4 HYPERLIPIDEMIA 04/08/2009 CELSA PETER, DAMIÁN ODILON 727.03 Trigger Finger Of Right Ring Finger 04/08/2009 WHITE DDS, SACHA J 272.4 HYPERLIPIDEMIA 04/08/2009 WHITE DDS, SACHA J 727.03 Trigger Finger Of Right Ring Finger 04/08/2009 FRANCESCO PHILLIPS MD 272.4 HYPERLIPIDEMIA 04/08/2009 FRANCESCO PHILLIPS MD 727.03 Trigger Finger Of Right Ring Finger 04/08/2009 FRANCESCO PHILLIPS MD 272.4 HYPERLIPIDEMIA 04/08/2009 FRANCESCO PHILLIPS MD 727.03 Trigger Finger Of Right Ring Finger 04/08/2009 CELSA PETER, DAMIÁN ODILON 272.4 HYPERLIPIDEMIA 04/08/2009 CELSA PETER, DAMIÁN ODILON 727.03 Trigger Finger Of Right Ring Finger 04/08/2009 ALEX VOCATIONAL TRAINING INSTRUCTOR, ANASTASIYA 272.4 HYPERLIPIDEMIA 04/08/2009 ALEX VOCATIONAL TRAINING INSTRUCTOR, ANASTASIYA 727.03 Trigger Finger Of Right Ring Finger 04/08/2009 FRANCESCO PHILLIPS MD 272.4 HYPERLIPIDEMIA 04/08/2009 FRANCESCO PHILLIPS MD 727.03 Trigger Finger Of Right Ring Finger 04/08/2009 ALEX VOCATIONAL TRAINING INSTRUCTOR, ANASTASIYA 272.4 HYPERLIPIDEMIA 04/08/2009 ALEX VOCATIONAL TRAINING INSTRUCTOR, ANASTASIYA 727.03 Trigger Finger Of Right Ring Finger 05/16/2009 ELAINE HANLEY DO 785.2 Murmurs, Undiagnosed Cardiac 05/16/2009 ELAINE HANLEY DO V72.83 Visit For: Pre-procedural Exam Prior To General Surgery 05/16/2009 ELAINE HANLEY DO F 785.2 Murmurs, Undiagnosed Cardiac 05/16/2009 ELAINE HANLEY DO V72.83 Visit For: Pre-procedural Exam Prior To General Surgery 05/16/2009 785.2 Murmurs, Undiagnosed Cardiac 05/16/2009 V72.83 Visit For: Pre-procedural Exam Prior To General Surgery 05/16/2009 785.2 Murmurs, Undiagnosed Cardiac 05/16/2009 V72.83 Visit For: Pre-procedural Exam Prior To General Surgery 05/16/2009 DAYAN DO ELAINE F 785.2 Murmurs, Undiagnosed Cardiac 05/16/2009 NAEMORALES DO ELAINE F V72.83 Visit For: Pre-procedural Exam Prior To General Surgery 05/16/2009 DAYAN DO ELAINE F 785.2 Murmurs, Undiagnosed Cardiac 05/16/2009 DAYAN DO ELAINE F V72.83 Visit For: Pre-procedural Exam Prior To General Surgery 05/16/2009 785.2 Murmurs, Undiagnosed Cardiac 05/16/2009 V72.83 Visit For: Pre-procedural Exam Prior To General Surgery 05/16/2009 785.2 Murmurs, Undiagnosed Cardiac 05/16/2009 V72.83 Visit For: Pre-procedural Exam Prior To General Surgery 05/16/2009 785.2 Murmurs, Undiagnosed Cardiac 05/16/2009 V72.83 Visit For: Pre-procedural Exam Prior To General Surgery 05/16/2009 FRANCESCO PHILLIPS MD 785.2 Murmurs, Undiagnosed Cardiac 05/16/2009 FRANCESOC PHILLIPS MD V72.83 Visit For: Pre-procedural Exam Prior To General Surgery 05/16/2009 NAEYANG ELAINE F 785.2 Murmurs, Undiagnosed Cardiac 05/16/2009 DAYAN ELAINE F V72.83 Visit For: Pre-procedural Exam Prior To General Surgery 05/16/2009 FRANCESCO PHILLIPS MD 785.2 Murmurs, Undiagnosed Cardiac 05/16/2009 FRANCESCO PHILLPIS MD V72.83 Visit For: Pre-procedural Exam Prior To General Surgery 05/16/2009 DAMIÁN STEEN APRN 785.2 Murmurs, Undiagnosed Cardiac 05/16/2009 DAMIÁN STEEN APRN V72.83 Visit For: Pre-procedural Exam Prior To General Surgery 05/16/2009 WHITE DDS, SACHA J 785.2 Murmurs, Undiagnosed Cardiac 05/16/2009 WHITE DDS, SACHA J V72.83 Visit For: Pre-procedural Exam Prior To General Surgery 05/16/2009 FRANCESCO PHILLIPS MD 785.2 Murmurs, Undiagnosed Cardiac 05/16/2009 FRANCESCO PHILLIPS MD V72.83 Visit For: Pre-procedural Exam Prior To General Surgery 05/16/2009 FRANCESCO PHILLIPS MD 785.2 Murmurs, Undiagnosed Cardiac 05/16/2009 FRANCESCO PHILLIPS MD V72.83 Visit For: Pre-procedural Exam Prior To General Surgery 05/16/2009 CELSA PETER, DAMIÁN DONALD 785.2 Murmurs, Undiagnosed Cardiac 05/16/2009 CELSA PETER, DAMIÁN DONALD V72.83 Visit For: Pre-procedural Exam Prior To General Surgery 05/16/2009 ANASTASIYA JOHNSON APRN 785.2 Murmurs, Undiagnosed Cardiac 05/16/2009 ALEX PETER, ANASTASIYA V72.83 Visit For: Pre-procedural Exam Prior To General Surgery 05/16/2009 FRANCESCO PHILLIPS MD 785.2 Murmurs, Undiagnosed Cardiac 05/16/2009 FRANCESCO PHILLIPS MD V72.83 Visit For: Pre-procedural Exam Prior To General Surgery 05/16/2009 ANASTASIYA JOHNSON APRN 785.2 Murmurs, Undiagnosed Cardiac 05/16/2009 ALEX PETER, ANASTASIYA V72.83 Visit For: Pre-procedural Exam Prior To General Surgery 06/13/2009 ELAINE HANLEY DO 919.4 Insect Bite Nonvenomous Of Other Multiple And Unspecified Sites Without Infection 06/13/2009 ELAINE HANLEY DO 919.4 Insect Bite Nonvenomous Of Other Multiple And Unspecified Sites Without Infection 06/13/2009 919.4 Insect Bite Nonvenomous Of Other Multiple And Unspecified Sites Without Infection 06/13/2009 919.4 Insect Bite Nonvenomous Of Other Multiple And Unspecified Sites Without Infection 06/13/2009 ELAINE HANLEY DO 919.4 Insect Bite Nonvenomous Of Other Multiple And Unspecified Sites Without Infection 06/13/2009 ELAINE HANLEY DO 919.4 Insect Bite Nonvenomous Of Other Multiple And Unspecified Sites Without Infection 06/13/2009 919.4 Insect Bite Nonvenomous Of Other Multiple And Unspecified Sites Without Infection 06/13/2009 919.4 Insect Bite Nonvenomous Of Other Multiple And Unspecified Sites Without Infection 06/13/2009 919.4 Insect Bite Nonvenomous Of Other Multiple And Unspecified Sites Without Infection 06/13/2009 FRANCESCO PHILLIPS MD 919.4 Insect Bite Nonvenomous Of Other Multiple And Unspecified Sites Without Infection 06/13/2009 ELAINE HANLEY DO 919.4 Insect Bite Nonvenomous Of Other Multiple And Unspecified Sites Without Infection 06/13/2009 FRANCESCO PHILLIPS MD 919.4 Insect Bite Nonvenomous Of Other Multiple And Unspecified Sites Without Infection 06/13/2009 CELSA PETER DAMIÁN NEGRETEH 919.4 Insect Bite Nonvenomous Of Other Multiple And Unspecified Sites Without Infection 06/13/2009 SACHA ORTEGA DDS 919.4 Insect Bite Nonvenomous Of Other Multiple And Unspecified Sites Without Infection 06/13/2009 FRANCESCO PHILLIPS MD 919.4 Insect Bite Nonvenomous Of Other Multiple And Unspecified Sites Without Infection 06/13/2009 FRANCESCO PHILLIPS MD 919.4 Insect Bite Nonvenomous Of Other Multiple And Unspecified Sites Without Infection 06/13/2009 CELSA PETER DAMIÁN ODILON 919.4 Insect Bite Nonvenomous Of Other Multiple And Unspecified Sites Without Infection 06/13/2009 ANASTASIYA JOHNSON APRN 919.4 Insect Bite Nonvenomous Of Other Multiple And Unspecified Sites Without Infection 06/13/2009 FRANCESCO PHILLIPS MD 919.4 Insect Bite Nonvenomous Of Other Multiple And Unspecified Sites Without Infection 06/13/2009 ANASTASIYA JOHNSON APRN 919.4 Insect Bite Nonvenomous Of Other Multiple And Unspecified Sites Without Infection 07/11/2009 ELAINE HANLEY DO 787.02 Nausea 07/11/2009 ELAINE HANLEY DO 787.02 Nausea 07/11/2009 787.02 Nausea 07/11/2009 787.02 Nausea 07/11/2009 ELAINE HANLEY DO 787.02 Nausea 07/11/2009 ELAINE HANLEY DO 787.02 Nausea 07/11/2009 787.02 Nausea 07/11/2009 787.02 Nausea 07/11/2009 787.02 Nausea 07/11/2009 FRANCESCO PHILLIPS MD 787.02 Nausea 07/11/2009 ELAINE HANLEY DO 787.02 Nausea 07/11/2009 FRANCESCO PHILLIPS MD 787.02 Nausea 07/11/2009 STEEN BRITTANI, DAMIÁN DONALD 787.02 Nausea 07/11/2009 SACHA ORTEGA DDS 787.02 Nausea 07/11/2009 FRANCESCO PHILLIPS MD 787.02 Nausea 07/11/2009 FRANCESCO PHILLIPS MD 787.02 Nausea 07/11/2009 STEEN APRN, DAMIÁN DONALD 787.02 Nausea 07/11/2009 ALEX VOCATIONAL TRAINING INSTRUCTOR, ANASTASIYA 787.02 Nausea 07/11/2009 FRANCESCO PHILLIPS MD 787.02 Nausea 07/11/2009 ALEX VOCATIONAL TRAINING INSTRUCTOR, ANASTASIYA 787.02 Nausea 08/14/2009 ELAINE HANLEY DO V16.9 Family History Of Unspecified Malignant Neoplasm 08/14/2009 ELAINE HANLEY DO V16.9 Family History Of Unspecified Malignant Neoplasm 08/14/2009 V16.9 Family History Of Unspecified Malignant Neoplasm 08/14/2009 V16.9 Family History Of Unspecified Malignant Neoplasm 08/14/2009 ELAINE HANLEY DO V16.9 Family History Of Unspecified Malignant Neoplasm 08/14/2009 ELAINE HANLEY DO V16.9 Family History Of Unspecified Malignant Neoplasm 08/14/2009 V16.9 Family History Of Unspecified Malignant Neoplasm 08/14/2009 V16.9 Family History Of Unspecified Malignant Neoplasm 08/14/2009 V16.9 Family History Of Unspecified Malignant Neoplasm 08/14/2009 FRANCESCO PHILLIPS MD V16.9 Family History Of Unspecified Malignant Neoplasm 08/14/2009 ELAINE HANLEY DO V16.9 Family History Of Unspecified Malignant Neoplasm 08/14/2009 FRANCESCO PHILLIPS MD V16.9 Family History Of Unspecified Malignant Neoplasm 08/14/2009 CELSA PETER DAMIÁN DONALD V16.9 Family History Of Unspecified Malignant Neoplasm 08/14/2009 SACHA ORTEGA DDS V16.9 Family History Of Unspecified Malignant Neoplasm 08/14/2009 FRNACESCO PHILLIPS MD V16.9 Family History Of Unspecified Malignant Neoplasm 08/14/2009 FRANCESCO PHILLIPS MD V16.9 Family History Of Unspecified Malignant Neoplasm 08/14/2009 DAMIÁN STEEN APRN V16.9 Family History Of Unspecified Malignant Neoplasm 08/14/2009 ANASTASIYA JOHNSON APRN V16.9 Family History Of Unspecified Malignant Neoplasm 08/14/2009 FRANCESCO PHILLIPS MD V16.9 Family History Of Unspecified Malignant Neoplasm 08/14/2009 ALEX PETER, ANASTASIYA V16.9 Family History Of Unspecified Malignant Neoplasm 12/25/2009 ELAINE HANLEY DO F 698.9 Unspecified Pruritic Disorder 12/25/2009 ELAINE HANLEY DO F 698.9 Unspecified Pruritic Disorder 12/25/2009 698.9 Unspecified Pruritic Disorder 12/25/2009 698.9 Unspecified Pruritic Disorder 12/25/2009 ELAINE HANLEY DO 698.9 Unspecified Pruritic Disorder 12/25/2009 ELAINE HANLEY DO 698.9 Unspecified Pruritic Disorder 12/25/2009 698.9 Unspecified Pruritic Disorder 12/25/2009 698.9 Unspecified Pruritic Disorder 12/25/2009 698.9 Unspecified Pruritic Disorder 12/25/2009 FRANCESCO PHILLIPS MD 698.9 Unspecified Pruritic Disorder 12/25/2009 ELAINE HANLEY DO 698.9 Unspecified Pruritic Disorder 12/25/2009 FRANCESCO PHILLIPS MD 698.9 Unspecified Pruritic Disorder 12/25/2009 DAMIÁN STEEN APRN 698.9 Unspecified Pruritic Disorder 12/25/2009 WHITE DDS, SACHA J 698.9 Unspecified Pruritic Disorder 12/25/2009 FRANCESCO PHILLIPS MD 698.9 Unspecified Pruritic Disorder 12/25/2009 FRANCESCO PHILLIPS MD 698.9 Unspecified Pruritic Disorder 12/25/2009 DAMIÁN STEEN APRN 698.9 Unspecified Pruritic Disorder 12/25/2009 ANASTASIYA JOHNSON APRN 698.9 Unspecified Pruritic Disorder 12/25/2009 FRANCESCO PHILLIPS MD 698.9 Unspecified Pruritic Disorder 12/25/2009 ALEX PETER, ANASTASIYA 698.9 Unspecified Pruritic Disorder 04/16/2010 ELAINE HANLEY DO F 455.6 Hemorrhoids Nos 04/16/2010 WERDER DO, ELAINE F V72.31 Laydown Machine Operator Exam, Routine 04/16/2010 DAYAN DO ELAINE F 455.6 Hemorrhoids Nos 04/16/2010 DAYAN DO ELAINE F V72.31 Laydown Machine Operator Exam, Routine 04/16/2010 455.6 Hemorrhoids Nos 04/16/2010 V72.31 Laydown Machine Operator Exam, Routine 04/16/2010 455.6 Hemorrhoids Nos 04/16/2010 V72.31 Laydown Machine Operator Exam, Routine 04/16/2010 DAYAN DO ELAINE F 455.6 Hemorrhoids Nos 04/16/2010 NAEDER DO ELAINE F V72.31 Laydown Machine Operator Exam, Routine 04/16/2010 WERDER DO ELAINE F 455.6 Hemorrhoids Nos 04/16/2010 NAEDER DO ELAINE F V72.31 Laydown Machine Operator Exam, Routine 04/16/2010 455.6 Hemorrhoids Nos 04/16/2010 V72.31 Laydown Machine Operator Exam, Routine 04/16/2010 455.6 Hemorrhoids Nos 04/16/2010 V72.31 Laydown Machine Operator Exam, Routine 04/16/2010 455.6 Hemorrhoids Nos 04/16/2010 V72.31 Laydown Machine Operator Exam, Routine 04/16/2010 FRANCESCO PHILLIPS MD 455.6 Hemorrhoids Nos 04/16/2010 FRANCESCO PHILLIPS MD V72.31 Laydown Machine Operator Exam, Routine 04/16/2010 ELAINE HANLEY DO 455.6 Hemorrhoids Nos 04/16/2010 ELAINE HANLEY DO F V72.31 Laydown Machine Operator Exam, Routine 04/16/2010 FRANCESCO PHILLIPS MD 455.6 Hemorrhoids Nos 04/16/2010 FRANCESCO PHILLIPS MD V72.31 Laydown Machine Operator Exam, Routine 04/16/2010 DAMIÁN STEEN APRN 455.6 Hemorrhoids Nos 04/16/2010 DAMIÁN STEEN APRN V72.31 Laydown Machine Operator Exam, Routine 04/16/2010 WHITE DDS, SACHA J 455.6 Hemorrhoids Nos 04/16/2010 WHITE DDS, SCAHA J V72.31 Laydown Machine Operator Exam, Routine 04/16/2010 FRANCESCO PHILLIPS MD 455.6 Hemorrhoids Nos 04/16/2010 FRANCESCO PHILLIPS MD V72.31 Laydown Machine Operator Exam, Routine 04/16/2010 FRANCESCO PHILLIPS MD 455.6 Hemorrhoids Nos 04/16/2010 FRANCESCO PHILLIPS MD V72.31 Laydown Machine Operator Exam, Routine 04/16/2010 STEEN VOCATIONAL TRAINING INSTRUCTOR, DAMIÁN DONALD 455.6 Hemorrhoids Nos 04/16/2010 STEEN VOCATIONAL TRAINING INSTRUCTOR, DAMIÁN DONALD V72.31 Laydown Machine Operator Exam, Routine 04/16/2010 ALEX VOCATIONAL TRAINING INSTRUCTOR, ANASTASIYA 455.6 Hemorrhoids Nos 04/16/2010 ALEX VOCATIONAL TRAINING INSTRUCTOR, ANASTASIYA V72.31 Laydown Machine Operator Exam, Routine 04/16/2010 FRANCESCO PHILLIPS MD 455.6 Hemorrhoids Nos 04/16/2010 FRANCESCO PHILLIPS MD V72.31 Laydown Machine Operator Exam, Routine 04/16/2010 ALEX VOCATIONAL TRAINING INSTRUCTOR, ANASTASIYA 455.6 Hemorrhoids Nos 04/16/2010 ALEX VOCATIONAL TRAINING INSTRUCTOR, ANASTASIYA V72.31 Laydown Machine Operator Exam, Routine 07/10/2010 Ot 719.41 07/10/2010 Ot V57.1 07/10/2010 Ot V58.49 12/04/2010 ELAINE HANLEY DO F 780.4 Dizziness And Vertigo 12/04/2010 ELAINE HANLEY DO F V65.49 Other Specified Counseling 12/04/2010 ELAINE HANLEY DO F V68.1 Issue Of Repeat Prescriptions 12/04/2010 ELAINE HANLEY DO F 780.4 Dizziness And Vertigo 12/04/2010 ELAINE HANLEY DO F V65.49 Other Specified Counseling 12/04/2010 ELAINE HANLEY DO F V68.1 Issue Of Repeat Prescriptions 12/04/2010 780.4 Dizziness And Vertigo 12/04/2010 V65.49 Other Specified Counseling 12/04/2010 V68.1 Issue Of Repeat Prescriptions 12/04/2010 780.4 Dizziness And Vertigo 12/04/2010 V65.49 Other Specified Counseling 12/04/2010 V68.1 Issue Of Repeat Prescriptions 12/04/2010 MARILY HANLEY DOEN F 780.4 Dizziness And Vertigo 12/04/2010 ELAINE HANLEY DO F V65.49 Other Specified Counseling 12/04/2010 ELAINE HANLEY DO F V68.1 Issue Of Repeat Prescriptions 12/04/2010 ELAINE HANLEY DO F 780.4 Dizziness And Vertigo 12/04/2010 MARILY HANLEY DOEN F V65.49 Other Specified Counseling 12/04/2010 ELAINE HANLEY DO F V68.1 Issue Of Repeat Prescriptions 12/04/2010 780.4 Dizziness And Vertigo 12/04/2010 V65.49 Other Specified Counseling 12/04/2010 V68.1 Issue Of Repeat Prescriptions 12/04/2010 780.4 Dizziness And Vertigo 12/04/2010 V65.49 Other Specified Counseling 12/04/2010 V68.1 Issue Of Repeat Prescriptions 12/04/2010 780.4 Dizziness And Vertigo 12/04/2010 V65.49 Other Specified Counseling 12/04/2010 V68.1 Issue Of Repeat Prescriptions 12/04/2010 FRANCESCO PHILLIPS MD 780.4 Dizziness And Vertigo 12/04/2010 FRANCESCO PHILLIPS MD V65.49 Other Specified Counseling 12/04/2010 FRANCESCO PHILLIPS MD V68.1 Issue Of Repeat Prescriptions 12/04/2010 ELAINE HANLEY DO F 780.4 Dizziness And Vertigo 12/04/2010 DAYAN DOMARILYEN F V65.49 Other Specified Counseling 12/04/2010 DAYAN DOMARILYEN F V68.1 Issue Of Repeat Prescriptions 12/04/2010 FRANCESCO PHILLIPS MD 780.4 Dizziness And Vertigo 12/04/2010 FRANCESCO PHILLIPS MD V65.49 Other Specified Counseling 12/04/2010 FRANCESCO PHILLIPS MD V68.1 Issue Of Repeat Prescriptions 12/04/2010 CELSA PETER DAMIÁN DONALD 780.4 Dizziness And Vertigo 12/04/2010 CELSA PETER DAMIÁN DONALD V65.49 Other Specified Counseling 12/04/2010 CELSA PETER DAMIÁN DONALD V68.1 Issue Of Repeat Prescriptions 12/04/2010 WHITE DDS, SACHA J 780.4 Dizziness And Vertigo 12/04/2010 WHITE DDS, SACHA J V65.49 Other Specified Counseling 12/04/2010 WHITE DDS, SACHA J V68.1 Issue Of Repeat Prescriptions 12/04/2010 FRANCESCO PHILLIPS MD 780.4 Dizziness And Vertigo 12/04/2010 FRANCESCO PHILLIPS MD V65.49 Other Specified Counseling 12/04/2010 FRANCESCO PHILLIPS MD V68.1 Issue Of Repeat Prescriptions 12/04/2010 FRANCESCO PHILLIPS MD 780.4 Dizziness And Vertigo 12/04/2010 FRANCESCO PHILLIPS MD V65.49 Other Specified Counseling 12/04/2010 FRANCESCO PHILLIPS MD V68.1 Issue Of Repeat Prescriptions 12/04/2010 STEEN VOCATIONAL TRAINING INSTRUCTOR, DAMIÁN DONALD 780.4 Dizziness And Vertigo 12/04/2010 DAMIÁN STEEN APRN V65.49 Other Specified Counseling 12/04/2010 DAMIÁN STEEN APRN V68.1 Issue Of Repeat Prescriptions 12/04/2010 ALEX VOCATIONAL TRAINING INSTRUCTOR, ANASTASIYA 780.4 Dizziness And Vertigo 12/04/2010 ALEX VOCATIONAL TRAINING INSTRUCTOR ANASTASIYA V65.49 Other Specified Counseling 12/04/2010 ALEX VOCATIONAL TRAINING INSTRUCTOR ANASTASIYA V68.1 Issue Of Repeat Prescriptions 12/04/2010 FRANCESCO PHILLIPS MD 780.4 Dizziness And Vertigo 12/04/2010 FRANCESCO PHILLIPS MD V65.49 Other Specified Counseling 12/04/2010 FRANCESCO PHILLIPS MD V68.1 Issue Of Repeat Prescriptions 12/04/2010 ALEX VOCATIONAL TRAINING INSTRUCTOR ANASTASIYA 780.4 Dizziness And Vertigo 12/04/2010 ALEX VOCATIONAL TRAINING INSTRUCTOR, ANASTASIYA V65.49 Other Specified Counseling 12/04/2010 ALEX VOCATIONAL TRAINING INSTRUCTOR, ANASTASIYA V68.1 Issue Of Repeat Prescriptions 03/02/2011 ELAINE HANLEY DO F 786.05 Shortness Of Breath 03/02/2011 ELAINE HANLEY DO F 786.05 Shortness Of Breath 03/02/2011 786.05 Shortness Of Breath 03/02/2011 786.05 Shortness Of Breath 03/02/2011 ELAINE HANLEY DO F 786.05 Shortness Of Breath 03/02/2011 DAYAN DOELAINE F 786.05 Shortness Of Breath 03/02/2011 786.05 Shortness Of Breath 03/02/2011 786.05 Shortness Of Breath 03/02/2011 786.05 Shortness Of Breath 03/02/2011 FRANCESCO PHILLIPS MD 786.05 Shortness Of Breath 03/02/2011 ELAINE HANLEY DO F 786.05 Shortness Of Breath 03/02/2011 FRANCESCO PHILLIPS MD 786.05 Shortness Of Breath 03/02/2011 STEENDAMIÁN RAMIREZ APRN 786.05 Shortness Of Breath 03/02/2011 SHANNON IRWIN, SACHA Granados 786.05 Shortness Of Breath 03/02/2011 FRANCESCO PHILLIPS MD 786.05 Shortness Of Breath 03/02/2011 FRANCESCO PHILLIPS MD 786.05 Shortness Of Breath 03/02/2011 CELSA PETER DAMIÁN DONALD 786.05 Shortness Of Breath 03/02/2011 ANASTASIYA JOHNSON APRN 786.05 Shortness Of Breath 03/02/2011 FRANCESCO PHILLIPS MD 786.05 Shortness Of Breath 03/02/2011 ANASTASIYA JOHNSON APRN 786.05 Shortness Of Breath 2011 MARILY HANLEY DOEN F 786.50 Chest Pain 2011 DAYAN DO ELAINE F 786.50 Chest Pain 2011 786.50 Chest Pain 2011 786.50 Chest Pain 2011 NAEDER DO ELAINE F 786.50 Chest Pain 2011 ELAINE HANLEY DO F 786.50 Chest Pain 2011 786.50 Chest Pain 2011 786.50 Chest Pain 2011 786.50 Chest Pain 2011 FRANCESCO PHILLIPS MD 786.50 Chest Pain 2011 ELAINE HANLEY DO 786.50 Chest Pain 2011 FRANCESCO PHILLIPS MD 786.50 Chest Pain 2011 CELSA PETER, DAMIÁN DONALD 786.50 Chest Pain 2011 SHANNON IRWIN, SACHA Granados 786.50 Chest Pain 2011 FRANCESCO PHILLIPS MD 786.50 Chest Pain 2011 FRANCESCO PHILLIPS MD 786.50 Chest Pain 2011 CELSA PETER, DAMIÁN DONALD 786.50 Chest Pain 2011 ANASTASIYA JOHNSON APRN 786.50 Chest Pain 2011 FRANCESCO PHILLIPS MD 786.50 Chest Pain 2011 ANASTASIYA JOHNSON APRN 786.50 Chest Pain 03/06/2011 Ot 272.0 03/06/2011 Ot 272.4 03/06/2011 Ot 280.0 03/06/2011 Ot 296.80 03/06/2011 Ot 411.1 03/06/2011 Ot 414.01 03/06/2011 Ot 530.81 03/06/2011 Ot 564.00 03/06/2011 Ot 792.1 03/08/2011 Ot 272.4 03/08/2011 Ot 414.01 03/08/2011 Ot 786.50 03/08/2011 Ot V58.66 03/08/2011 Ot V58.69 03/24/2011 WERMORALES DO ELAINE F 285.9 ANEMIA 03/24/2011 NAEMORALES DO ELAINE F 780.79 MALAISE AND FATIGUE 03/24/2011 NAEMORALES DO ELAINE F 285.9 ANEMIA 03/24/2011 DAYAN DO ELAINE F 780.79 MALAISE AND FATIGUE 03/24/2011 285.9 ANEMIA 03/24/2011 780.79 MALAISE AND FATIGUE 03/24/2011 285.9 ANEMIA 03/24/2011 780.79 MALAISE AND FATIGUE 03/24/2011 WERDER DO ELAINE F 285.9 ANEMIA 03/24/2011 NAEDER DO ELAINE F 780.79 MALAISE AND FATIGUE 03/24/2011 WERDER DO ELAINE F 285.9 ANEMIA 03/24/2011 DAYAN DO ELAINE F 780.79 MALAISE AND FATIGUE 03/24/2011 285.9 ANEMIA 03/24/2011 780.79 MALAISE AND FATIGUE 03/24/2011 285.9 ANEMIA 03/24/2011 780.79 MALAISE AND FATIGUE 03/24/2011 285.9 ANEMIA 03/24/2011 780.79 MALAISE AND FATIGUE 03/24/2011 FRANCESCO PHILLIPS MD 285.9 ANEMIA 03/24/2011 FRANCESCO PHILLIPS MD 780.79 MALAISE AND FATIGUE 03/24/2011 DAYAN CLAYTON ELAINE F 285.9 ANEMIA 03/24/2011 DAYAN CLAYTON ELAINE F 780.79 MALAISE AND FATIGUE 03/24/2011 FRANCESCO PHILLIPS MD 285.9 ANEMIA 03/24/2011 FRANCESCO PHILLIPS MD 780.79 MALAISE AND FATIGUE 03/24/2011 DAMIÁN STEEN APRN 285.9 ANEMIA 03/24/2011 DAMIÁN STEEN APRN 780.79 MALAISE AND FATIGUE 03/24/2011 WHITE DDSSACHA J 285.9 ANEMIA 03/24/2011 WHITE DDS, SACHA J 780.79 MALAISE AND FATIGUE 03/24/2011 FRANCESCO PHILLIPS MD 285.9 ANEMIA 03/24/2011 FRANCESCO PHILLIPS MD 780.79 MALAISE AND FATIGUE 03/24/2011 FRANCESCO PHILLIPS MD 285.9 ANEMIA 03/24/2011 FRANCESCO PHILLIPS MD 780.79 MALAISE AND FATIGUE 03/24/2011 STEEN VOCATIONAL TRAINING INSTRUCTOR, DAMIÁN NEGRETEH 285.9 ANEMIA 03/24/2011 CELSA PETER, DAMIÁN NEGRETEH 780.79 MALAISE AND FATIGUE 03/24/2011 ALEX VOCATIONAL TRAINING INSTRUCTOR, ANASTASIYA 285.9 ANEMIA 03/24/2011 ALEX VOCATIONAL TRAINING INSTRUCTOR, ANASTASIYA 780.79 MALAISE AND FATIGUE 03/24/2011 FRANCESCO PHILLIPS MD 285.9 ANEMIA 03/24/2011 FRANCESCO PHILLIPS MD 780.79 MALAISE AND FATIGUE 03/24/2011 ALEX VOCATIONAL TRAINING INSTRUCTOR, ANASTASIYA 285.9 ANEMIA 03/24/2011 ALEX VOCATIONAL TRAINING INSTRUCTOR, ANASTASIYA 780.79 MALAISE AND FATIGUE 05/12/2011 ELAINE HANLEY DO 244.9 HYPOTHYROIDISM 05/12/2011 ELAINE HANLEY DO 244.9 HYPOTHYROIDISM 05/12/2011 244.9 HYPOTHYROIDISM 05/12/2011 244.9 HYPOTHYROIDISM 05/12/2011 ELAINE HANLEY DO F 244.9 HYPOTHYROIDISM 05/12/2011 ELAINE HANLEY DO F 244.9 HYPOTHYROIDISM 05/12/2011 244.9 HYPOTHYROIDISM 05/12/2011 244.9 HYPOTHYROIDISM 05/12/2011 244.9 HYPOTHYROIDISM 05/12/2011 FRANCESCO PHILLIPS MD 244.9 HYPOTHYROIDISM 05/12/2011 ELAINE HANLEY DO 244.9 HYPOTHYROIDISM 05/12/2011 FRNACESCO PHILLIPS MD 244.9 HYPOTHYROIDISM 05/12/2011 CELSA PETER DAMIÁN ODILON 244.9 HYPOTHYROIDISM 05/12/2011 WHITE HORTENSIAS, SACHA Granados 244.9 HYPOTHYROIDISM 05/12/2011 FRANCESCO PHILLIPS MD 244.9 HYPOTHYROIDISM 05/12/2011 FRANCESCO PHILLIPS MD 244.9 HYPOTHYROIDISM 05/12/2011 DAMIÁN STEEN APRN 244.9 HYPOTHYROIDISM 05/12/2011 ANASTASIYA JOHNSON APRN 244.9 HYPOTHYROIDISM 05/12/2011 FRANCESCO PHILLIPS MD 244.9 HYPOTHYROIDISM 05/12/2011 ALEXLANDY PETER, ANASTASIYA 244.9 HYPOTHYROIDISM 05/14/2011 ELAINE HANLEY DO F 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 05/14/2011 ELAINE HANLEY DO F 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 05/14/2011 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 05/14/2011 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 05/14/2011 ELAINE HANLEY DO 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 05/14/2011 ELAINE HANLEY DO 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 05/14/2011 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 05/14/2011 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 05/14/2011 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 05/14/2011 FRANCESCO PHILLIPS MD 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 05/14/2011 ELAINE HANLEY DO 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 05/14/2011 FRANCESCO PHILLIPS MD 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 05/14/2011 DAMIÁN STEEN APRN 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 05/14/2011 SACHA ORTEGA DDS 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 05/14/2011 FRANCESCO PHILLIPS MD 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 05/14/2011 FRANCESCO PHILLIPS MD 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 05/14/2011 DAMIÁN STEEN APRN 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 05/14/2011 ANASTASIYA JOHNSNO APRN 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 05/14/2011 FARNCESCO PHILLIPS MD 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00 Blepharitis Unspecified 06/25/2011 FRANCESCO PHILLIPS MD 373.00 Blepharitis Unspecified 06/25/2011 CELSA PETER, DAMIÁN ODILON 373.00 Blepharitis Unspecified 06/25/2011 SACHA ORTEGA DDS J 373.00 Blepharitis Unspecified 06/25/2011 FRANCESCO PHILLIPS MD 373.00 Blepharitis Unspecified 06/25/2011 FRANCESCO PHILLIPS MD 373.00 Blepharitis Unspecified 06/25/2011 CELSA PETER, DAMIÁN DONALD 373.00 Blepharitis Unspecified 06/25/2011 ANASTASIYA JOHNSON APRN 373.00 Blepharitis Unspecified 06/25/2011 FRANCESCO PHILLIPS MD 373.00 Blepharitis Unspecified 06/25/2011 ANASTASIYA JOHNSON APRN 373.00 Blepharitis Unspecified 08/18/2011 ELAINE HANLEY DO 316 PF PSYCHIC FACTORS MED COND 08/18/2011 ELAINE HANLEY DO F 316 PF PSYCHIC FACTORS MED COND 08/18/2011 316 PF PSYCHIC FACTORS MED COND 08/18/2011 316 PF PSYCHIC FACTORS MED COND 08/18/2011 ELAINE HANLEY DO 316 PF PSYCHIC FACTORS MED COND 08/18/2011 ELAINE HANLEY DO F 316 PF PSYCHIC FACTORS MED COND 08/18/2011 316 PF PSYCHIC FACTORS MED COND 08/18/2011 316 PF PSYCHIC FACTORS MED COND 08/18/2011 316 PF PSYCHIC FACTORS MED COND 08/18/2011 FRANCESCO PHILLIPS MD 316 PF PSYCHIC FACTORS MED COND 08/18/2011 ELAINE HANLEY DO F 316 PF PSYCHIC FACTORS MED COND 08/18/2011 FRANCESCO PHILLIPS MD 316 PF PSYCHIC FACTORS MED COND 08/18/2011 DAMIÁN STEEN APRN 316 PF PSYCHIC FACTORS MED COND 08/18/2011 SACHA ORTEGA DDS 316 PF PSYCHIC FACTORS MED COND 08/18/2011 FRANCESCO PHILLIPS MD 316 PF PSYCHIC FACTORS MED COND 08/18/2011 FRANCESCO PHILLIPS MD 316 PF PSYCHIC FACTORS MED COND 08/18/2011 DAMIÁN STEEN APRN 316 PF PSYCHIC FACTORS MED COND 08/18/2011 ALEX PETER, ANASTASIYA 316 PF PSYCHIC FACTORS MED COND 08/18/2011 FRANCESCO PHILLIPS MD 316 PF PSYCHIC FACTORS MED COND 08/18/2011 ANASTASIYA JOHNSON APRN 316 PF PSYCHIC FACTORS MED COND 12/02/2011 ELAINE HANLEY DO 578.1 Hematochezia 12/02/2011 ELAINE HANLYE DO 578.1 Hematochezia 12/02/2011 578.1 Hematochezia 12/02/2011 578.1 Hematochezia 12/02/2011 ELAINE HANLEY DO 578.1 Hematochezia 12/02/2011 ELAINE HANLEY DO 578.1 Hematochezia 12/02/2011 578.1 Hematochezia 12/02/2011 578.1 Hematochezia 12/02/2011 578.1 Hematochezia 12/02/2011 ALAN HA, FRANCESCO 578.1 Hematochezia 12/02/2011 ELAINE HANLEY DO 578.1 Hematochezia 12/02/2011 ALAN HA, FRANCESCO 578.1 Hematochezia 12/02/2011 DAMIÁN STEEN APRN 578.1 Hematochezia 12/02/2011 SHANNON IRWIN, SACHA Granados 578.1 Hematochezia 12/02/2011 FRANCESCO PHILLIPS MD 578.1 Hematochezia 12/02/2011 FRANCESCO PHILLIPS MD 578.1 Hematochezia 12/02/2011 DAMIÁN STEEN APRN 578.1 Hematochezia 12/02/2011 ANASTASIYA JOHNSON APRN 578.1 Hematochezia 12/02/2011 FRANCESCO PHILLIPS MD 578.1 Hematochezia 12/02/2011 ANASTASIYA JOHNSON APRN 578.1 Hematochezia 03/13/2012 ELAINE HANLEY DO 792.1 Nonspecific Abnormal Findings In Stool Contents 03/13/2012 ELAINE HANLEY DO V16.0 Family History Of Malignant Neoplasm Of Gastrointestinal Tract 03/13/2012 ELAINE HANLEY DO 792.1 Nonspecific Abnormal Findings In Stool Contents 03/13/2012 ELAINE HANLEY DO V16.0 Family History Of Malignant Neoplasm Of Gastrointestinal Tract 03/13/2012 792.1 Nonspecific Abnormal Findings In Stool Contents 03/13/2012 V16.0 Family History Of Malignant Neoplasm Of Gastrointestinal Tract 03/13/2012 792.1 Nonspecific Abnormal Findings In Stool Contents 03/13/2012 V16.0 Family History Of Malignant Neoplasm Of Gastrointestinal Tract 03/13/2012 ELAINE HANLEY DO 792.1 Nonspecific Abnormal Findings In Stool Contents 03/13/2012 ELAINE HANLEY DO V16.0 Family History Of Malignant Neoplasm Of Gastrointestinal Tract 03/13/2012 ELAINE HANLEY DO 792.1 Nonspecific Abnormal Findings In Stool Contents 03/13/2012 ELAINE HANLEY DO V16.0 Family History Of Malignant Neoplasm Of Gastrointestinal Tract 03/13/2012 792.1 Nonspecific Abnormal Findings In Stool Contents 03/13/2012 V16.0 Family History Of Malignant Neoplasm Of Gastrointestinal Tract 03/13/2012 792.1 Nonspecific Abnormal Findings In Stool Contents 03/13/2012 V16.0 Family History Of Malignant Neoplasm Of Gastrointestinal Tract 03/13/2012 792.1 Nonspecific Abnormal Findings In Stool Contents 03/13/2012 V16.0 Family History Of Malignant Neoplasm Of Gastrointestinal Tract 03/13/2012 FRANCESCO PHILLIPS MD 792.1 Nonspecific Abnormal Findings In Stool Contents 03/13/2012 FRANCESCO PHILLIPS MD V16.0 Family History Of Malignant Neoplasm Of Gastrointestinal Tract 03/13/2012 ELAINE HANLEY DO 792.1 Nonspecific Abnormal Findings In Stool Contents 03/13/2012 ELAINE HANLEY DO V16.0 Family History Of Malignant Neoplasm Of Gastrointestinal Tract 03/13/2012 FRANCESCO PHILLIPS MD 792.1 Nonspecific Abnormal Findings In Stool Contents 03/13/2012 FRANCESCO PHILLIPS MD V16.0 Family History Of Malignant Neoplasm Of Gastrointestinal Tract 03/13/2012 DAMIÁN STEEN APRN 792.1 Nonspecific Abnormal Findings In Stool Contents 03/13/2012 DAMIÁN STEEN APRN V16.0 Family History Of Malignant Neoplasm Of Gastrointestinal Tract 03/13/2012 WHITE DDS, SACHA J 792.1 Nonspecific Abnormal Findings In Stool Contents 03/13/2012 WHITE DDS, SACHA J V16.0 Family History Of Malignant Neoplasm Of Gastrointestinal Tract 03/13/2012 FRANCESCO PHILLIPS MD 792.1 Nonspecific Abnormal Findings In Stool Contents 03/13/2012 FRANCESCO PHILLIPS MD V16.0 Family History Of Malignant Neoplasm Of Gastrointestinal Tract 03/13/2012 FRANCESCO PHILLIPS MD 792.1 Nonspecific Abnormal Findings In Stool Contents 03/13/2012 FRANCESCO PHILLIPS MD V16.0 Family History Of Malignant Neoplasm Of Gastrointestinal Tract 03/13/2012 CELSA PETER DAMIÁN DONALD 792.1 Nonspecific Abnormal Findings In Stool Contents 03/13/2012 CELSA PETER DAMIÁN DONALD V16.0 Family History Of Malignant Neoplasm Of Gastrointestinal Tract 03/13/2012 CALLIE JOHNSON APRNETTE 792.1 Nonspecific Abnormal Findings In Stool Contents 03/13/2012 ANASTASIYA JOHNSON APRN V16.0 Family History Of Malignant Neoplasm Of Gastrointestinal Tract 03/13/2012 FRANCESCO PHILLIPS MD 792.1 Nonspecific Abnormal Findings In Stool Contents 03/13/2012 FRANCESCO PHILLIPS MD V16.0 Family History Of Malignant Neoplasm Of Gastrointestinal Tract 03/13/2012 ANASTASIYA JOHNSON APRN 792.1 Nonspecific Abnormal Findings In Stool Contents 03/13/2012 CALLIE JOHNSON APRNETTE V16.0 Family History Of Malignant Neoplasm Of Gastrointestinal Tract 05/09/2012 Ot 285.9 ANEMIA NOS 05/09/2012 Ot 792.1 ABN FIND- STOOL CONTENTS 06/13/2012 ELAINE HANLEY DO 300.00 AN ANXIETY UNSPEC 06/13/2012 ELAINE HANLEY DO 300.00 AN ANXIETY UNSPEC 06/13/2012 300.00 AN ANXIETY UNSPEC 06/13/2012 300.00 AN ANXIETY UNSPEC 06/13/2012 ELAINE HANLEY DO 300.00 AN ANXIETY UNSPEC 06/13/2012 ELAINE HANLEY DO 300.00 AN ANXIETY UNSPEC 06/13/2012 300.00 AN ANXIETY UNSPEC 06/13/2012 300.00 AN ANXIETY UNSPEC 06/13/2012 300.00 AN ANXIETY UNSPEC 06/13/2012 FRANCESCO PHILLIPS MD 300.00 AN ANXIETY UNSPEC 06/13/2012 ELAINE HANLEY DO 300.00 AN ANXIETY UNSPEC 06/13/2012 FRANCESCO PHILLIPS MD 300.00 AN ANXIETY UNSPEC 06/13/2012 CELSA PETER DAMIÁN DONALD 300.00 AN ANXIETY UNSPEC 06/13/2012 SACHA ORTEGA DDS 300.00 AN ANXIETY UNSPEC 06/13/2012 FRANCESCO PHILLIPS MD 300.00 AN ANXIETY UNSPEC 06/13/2012 FRANCESCO PHILLIPS MD 300.00 AN ANXIETY UNSPEC 06/13/2012 CELSA PETERDAMIÁN 300.00 AN ANXIETY UNSPEC 06/13/2012 ANASTASIYA JOHNSON APRN 300.00 AN ANXIETY UNSPEC 06/13/2012 FRANCESCO PHILLIPS MD 300.00 AN ANXIETY UNSPEC 06/13/2012 ANASTASIYA JOHNSON APRN 300.00 AN ANXIETY UNSPEC 01/26/2013 Ot 307.42 PERSISTENT INSOMNIA 10/14/2014 FRANCESCO PHILLIPS MD 848.9 UNSPECIFIED SITE OF SPRAIN AND STRAIN 10/14/2014 ANASTASIYA JHONSON APRN 848.9 UNSPECIFIED SITE OF SPRAIN AND STRAIN 11/11/2015 Ot V72.84 12/09/2015 NEW, TOMY G. EXTRUDER-C Ot E03.9 12/09/2015 NEW, TOMY G. EXTRUDER-C Ot E78.5 12/09/2015 NEW, TOMY G. EXTRUDER-C Ot F32.9 12/09/2015 NEW, TOMY G. EXTRUDER-C Ot F41.9 12/09/2015 NEW, TOMY G. EXTRUDER-C Ot I13.10 12/09/2015 NEW, TOMY G. EXTRUDER-C Ot M19.90 12/09/2015 NEW, TOMY G. EXTRUDER-C Ot N18.3 12/09/2015 NEW, TOMY G. EXTRUDER-C Ot R80.9 12/11/2015 NEW, TOMY G. EXTRUDER-C Ot E03.9 12/11/2015 NEW, TOMY G. EXTRUDER-C Ot E78.5 12/11/2015 NEW, TOMY G. EXTRUDER-C Ot F32.9 12/11/2015 NEW, TOMY G. EXTRUDER-C Ot F41.9 12/11/2015 NEW, TOMY G. EXTRUDER-C Ot I13.10 12/11/2015 NEW, TOMY G. EXTRUDER-C Ot M19.90 12/11/2015 NEW, TOMY G. EXTRUDER-C Ot N18.3 12/11/2015 NEW, TOMY G. EXTRUDER-C Ot R80.9 04/15/2016 GRACIELA HA, SARA Heaton Ot S39.012A STRAIN OF MUSCLE, FASCIA AND TENDON OF L 04/15/2016 GRACIELA HA, SARA Heaton Ot X58.XXXA EXPOSURE TO OTHER SPECIFIED FACTORS, INI 04/15/2016 SARA OWENS MD Ot Y99.8 OTHER EXTERNAL CAUSE STATUS 04/29/2016 SARA OWENS MD Ot S39.012A STRAIN OF MUSCLE, FASCIA AND TENDON OF L 04/29/2016 SARA OWENS MD Ot X58.XXXA EXPOSURE TO OTHER SPECIFIED FACTORS, INI 04/29/2016 SARA OWENS MD Ot Y99.8 OTHER EXTERNAL CAUSE STATUS 05/25/2016 SARA OWENS MD Ot S39.012A STRAIN OF MUSCLE, FASCIA AND TENDON OF L 05/25/2016 SARA OWENS MD Ot X58.XXXA EXPOSURE TO OTHER SPECIFIED FACTORS, INI 05/25/2016 SARA OWENS MD Ot Y99.8 OTHER EXTERNAL CAUSE STATUS 05/26/2016 SARA OWENS MD Ot S39.012A STRAIN OF MUSCLE, FASCIA AND TENDON OF L 05/26/2016 SARA OWENS MD Ot X58.XXXA EXPOSURE TO OTHER SPECIFIED FACTORS, INI 05/26/2016 SARA OWENS MD Ot Y99.8 OTHER EXTERNAL CAUSE STATUS 08/23/2016 KEVIN MCCULLOUGH MD Ot I48.91 UNSPECIFIED ATRIAL FIBRILLATION 08/23/2016 KEVIN MCCULLOUGH MD, Ot J90 PLEURAL EFFUSION, 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 08/23/2016 KEVIN MCCULLOUGH MD Ot R06.02 SHORTNESS OF BREATH 08/23/2016 KEVIN MCCULLOUGH MD Ot Z79.01 SNF (CURRENT) USE OF 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 08/23/2016 KEVIN MCCULLOUGH MD Ot Z79.82 BREAKER TENDER (CURRENT) USE OF ASPIRIN 08/23/2016 KEVIN MCCULLOUGH MD Ot Z79.899 OTHER BREAKER TENDER (CURRENT) DRUG THERAPY 08/24/2016 KEVIN MCCULLOUGH MD Ot I48.91 UNSPECIFIED ATRIAL FIBRILLATION 08/24/2016 KEVIN MCCULLOUGH MD, Ot J90 PLEURAL EFFUSION, 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 08/24/2016 KEVIN MCCULLOUGH MD Ot R06.02 SHORTNESS OF BREATH 08/24/2016 KEVIN MCCULLOUGH MD Ot Z79.01 SNF (CURRENT) USE OF 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 08/24/2016 KEVIN MCCULLOUGH MD Ot Z79.82 SNF (CURRENT) USE OF ASPIRIN 08/24/2016 JAMEL HA, KEVIN Thomas Ot Z79.899 OTHER SNF (CURRENT) DRUG THERAPY 09/23/2016 JAN CRAIN MD, Ot I48.1 PERSISTENT ATRIAL FIBRILLATION 09/23/2016 JAN CRAIN MD Ot I48.1 PERSISTENT ATRIAL FIBRILLATION 09/24/2016 JAN CRAIN MD, Ot Z79.01 BREAKER TENDER (CURRENT) USE OF 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 09/27/2016 JAN CRAIN MD Ot I50.33 ACUTE ON CHRONIC DIASTOLIC (CONGESTIVE) 09/27/2016 JAN CRAIN MD, Ot Z79.01 SNF (CURRENT) USE OF 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 09/27/2016 Ot V72.84 EXAM PRE- OPERATIVE NOS 09/27/2016 TOMY HILARIO NP-C Ot E03.9 HYPOTHYROIDISM, UNSPECIFIED 09/27/2016 TOMY HILARIO NP-C Ot E78.5 HYPERLIPIDEMIA, UNSPECIFIED 09/27/2016 TOMY HILARIO NP-C Ot F32.9 MAJOR DEPRESSIVE DISORDER, SINGLE EPISOD 09/27/2016 TOMY HILARIO NP-C Ot F41.9 ANXIETY DISORDER, UNSPECIFIED 09/27/2016 TOMY HILARIO NP-C Ot 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, W S 09/27/2016 TOMY HILARIO NP-C Ot M19.90 UNSPECIFIED OSTEOARTHRITIS, UNSPECIFIED 09/27/2016 TOMY HILARIO NP-C Ot N18.3 CHRONIC KIDNEY DISEASE, STAGE 3 (MODERAT 09/27/2016 TOMY HILARIO NP-C Ot R80.9 PROTEINURIA, UNSPECIFIED 09/27/2016 JAN CRAIN MD Ot I48.1 PERSISTENT ATRIAL FIBRILLATION 09/27/2016 JAN CRAIN MD Ot I50.33 ACUTE ON CHRONIC DIASTOLIC (CONGESTIVE) 09/27/2016 JAN CRAIN MD, Ot Z79.01 BREAKER TENDER (CURRENT) USE OF 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 09/28/2016 JAN CRAIN MD Ot Z51.81 ENCOUNTER FOR THERAPEUTIC DRUG LEVEL MON 09/28/2016 JAN CRAIN MD Ot Z79.01 SNF (CURRENT) USE OF 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 09/28/2016 TOMY HILARIO NP-C Ot D50.9 IRON DEFICIENCY ANEMIA, UNSPECIFIED 09/28/2016 SULAIMAN TOMY Lou EXTRUDER-C Ot D63.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 09/28/2016 SULAIMANTOMY EXTRUDER-C Ot N18.3 CHRONIC KIDNEY DISEASE, STAGE 3 (MODERAT 09/29/2016 SULAIMAN TOMY Lou EXTRUDER-C Ot D50.9 IRON DEFICIENCY ANEMIA, UNSPECIFIED 09/29/2016 NEW TOMY Lou EXTRUDER-C Ot D63.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 09/29/2016 NEW TOMY Lou EXTRUDER-C Ot N18.3 CHRONIC KIDNEY DISEASE, STAGE 3 (MODERAT 10/01/2016 BREANN HA, JAN L Ot I48.91 UNSPECIFIED ATRIAL FIBRILLATION 10/01/2016 BREANN HA, JAN L Ot I50.9 HEART FAILURE, UNSPECIFIED 10/01/2016 BREANN HA, JAN L Ot Z79.02 SNF (CURRENT) USE OF ANTITHROMBOTI 10/01/2016 BREANN HA, JAN L Ot Z79.899 OTHER SNF (CURRENT) DRUG THERAPY 10/01/2016 SULAIMAN TOMY ErnstBrian EXTRUDER-C Ot D50.9 IRON DEFICIENCY ANEMIA, UNSPECIFIED 10/01/2016 NEW TOMY Lou EXTRUDER-C Ot D63.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 10/01/2016 SULAIMAN TOMY Lou EXTRUDER-C Ot N18.3 CHRONIC KIDNEY DISEASE, STAGE 3 (MODERAT 10/01/2016 OTHER, UNLISTED Ot Z51.81 ENCOUNTER FOR THERAPEUTIC DRUG LEVEL MON 10/01/2016 OTHER, UNLISTED Ot Z79.01 SNF (CURRENT) USE OF 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 10/04/2016 SULAIMAN TOMY ErnstBrian KHAN-C Ot D50.9 IRON DEFICIENCY ANEMIA, UNSPECIFIED 10/04/2016 NEW TOMY ErnstBrian EXTRUDER-C Ot D63.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 10/04/2016 SULAIMAN TOMY Lou EXTRUDER-C Ot N18.3 CHRONIC KIDNEY DISEASE, STAGE 3 (MODERAT 10/06/2016 SULAIMAN TOMY Lou EXTRUDER-C Ot D50.9 IRON DEFICIENCY ANEMIA, UNSPECIFIED 10/06/2016 NEW TOMY ErnstBrian EXTRUDER-C Ot D63.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 10/06/2016 SULAIMAN TOMY Lou EXTRUDER-C Ot N18.3 CHRONIC KIDNEY DISEASE, STAGE 3 (MODERAT 10/11/2016 JAN CRANI MD L Ot Z51.81 ENCOUNTER FOR THERAPEUTIC DRUG LEVEL MON 10/11/2016 JAN CRAIN MD L Ot Z79.01 BREAKER TENDER (CURRENT) USE OF 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 10/12/2016 JAN CRAIN MD L Ot Z51.81 ENCOUNTER FOR THERAPEUTIC DRUG LEVEL MON 10/12/2016 JAN CRAIN MD L Ot Z79.01 SNF (CURRENT) USE OF 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 10/13/2016 JAN CRAIN MD L Ot I48.1 PERSISTENT ATRIAL FIBRILLATION 10/14/2016 JAN CRAIN MD L Ot Z79.01 SNF (CURRENT) USE OF 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 10/14/2016 JAN CRAIN MD L Ot Z51.81 ENCOUNTER FOR THERAPEUTIC DRUG LEVEL MON 10/14/2016 JAN CRAIN MD L Ot Z79.01 SNF (CURRENT) USE OF 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 10/15/2016 JAN CRAIN MD L Ot Z51.81 ENCOUNTER FOR THERAPEUTIC DRUG LEVEL MON 10/15/2016 JAN CRAIN MD L Ot Z79.01 SNF (CURRENT) USE OF 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 10/21/2016 JAN CRAIN MD Ot I50.33 ACUTE ON CHRONIC DIASTOLIC (CONGESTIVE) 10/21/2016 JAN CRAIN MD L Ot Z79.01 BREAKER TENDER (CURRENT) USE OF 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 10/21/2016 JAN CRAIN MD L Ot Z51.81 ENCOUNTER FOR THERAPEUTIC DRUG LEVEL MON 10/21/2016 JAN CRAIN MD L Ot Z79.01 BREAKER TENDER (CURRENT) USE OF 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 10/22/2016 JAN CRAIN MD L Ot I48.91 UNSPECIFIED ATRIAL FIBRILLATION 10/22/2016 JAN CRAIN MD L Ot I48.91 UNSPECIFIED ATRIAL FIBRILLATION 10/22/2016 JAN CRAIN MD L Ot I50.9 HEART FAILURE, UNSPECIFIED 10/22/2016 JAN CRAIN MD L Ot Z79.02 BREAKER TENDER (CURRENT) USE OF ANTITHROMBOTI 10/22/2016 JAN CRAIN MD L Ot Z79.899 OTHER BREAKER TENDER (CURRENT) DRUG THERAPY 10/22/2016 OTHER, UNLISTED Ot Z51.81 ENCOUNTER FOR THERAPEUTIC DRUG LEVEL MON 10/22/2016 OTHER, UNLISTED Ot Z79.01 SNF (CURRENT) USE OF 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 10/22/2016 JAN CRAIN MD L Ot I48.91 UNSPECIFIED ATRIAL FIBRILLATION 10/22/2016 JAN CRAIN MD L Ot Z79.01 SNF (CURRENT) USE OF 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 10/28/2016 JAN CRAIN MD L Ot Z51.81 ENCOUNTER FOR THERAPEUTIC DRUG LEVEL MON 10/28/2016 JAN CRAIN MD L Ot Z79.01 SNF (CURRENT) USE OF 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 11/01/2016 JAN CRAIN MD L Ot Z51.81 ENCOUNTER FOR THERAPEUTIC DRUG LEVEL MON 11/01/2016 JAN CRAIN MD L Ot Z79.01 BREAKER TENDER (CURRENT) USE OF 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 11/01/2016 JAN CRAIN MD L Ot Z51.81 ENCOUNTER FOR THERAPEUTIC DRUG LEVEL MON 11/01/2016 JAN CRAIN MD L Ot Z79.01 SNF (CURRENT) USE OF 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 11/05/2016 JAN CRAIN MD L Ot Z51.81 ENCOUNTER FOR THERAPEUTIC DRUG LEVEL MON 11/05/2016 JAN CRAIN MD L Ot Z79.01 SNF (CURRENT) USE OF 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 11/11/2016 JAN CRAIN MD L Ot I48.91 UNSPECIFIED ATRIAL FIBRILLATION 11/11/2016 JAN CRAIN MD L Ot Z79.01 SNF (CURRENT) USE OF 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 11/18/2016 JAN CRAIN MD L Ot Z51.81 ENCOUNTER FOR THERAPEUTIC DRUG LEVEL MON 11/18/2016 RAJWINDER CRAIN MDCY L Ot Z79.01 SNF (CURRENT) USE OF 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 12/20/2016 TOMY HILARIO EXTRUDER-C Ot D50.9 IRON DEFICIENCY ANEMIA, UNSPECIFIED 12/20/2016 TOMY HILARIO EXTRUDER-C Ot D63.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 12/20/2016 TOMY HILARIO EXTRUDER-C Ot N18.3 CHRONIC KIDNEY DISEASE, STAGE 3 (MODERAT 12/23/2016 TOMY HILARIO EXTRUDER-C Ot D50.9 IRON DEFICIENCY ANEMIA, UNSPECIFIED 12/23/2016 TOMY HILARIO EXTRUDER-C Ot D63.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 12/23/2016 TOMY HILARIO EXTRUDER-C Ot N18.3 CHRONIC KIDNEY DISEASE, STAGE 3 (MODERAT 12/26/2016 TOMY HILARIO EXTRUDER-C Ot D50.9 IRON DEFICIENCY ANEMIA, UNSPECIFIED 12/26/2016 SULAIMANTOMYBrian KHAN-Cristobal Ot D63.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 12/26/2016 SULAIMAN TOMY ErnstBrian KHAN-C Ot N18.3 CHRONIC KIDNEY DISEASE, STAGE 3 (MODERAT Procedures Code [place] [address] PSYCH IND W/MED CK 20 09/13/2012 02551 ROUTINE VENIPUNCTURE 11/10/2012 88001 QUANTITATIVE ASSAY DRUG 11/23/2012 28418 SLEEP STUDY 01/03/2013 84051 PSYCH DIAGNOSTIC EVALUATION 03/15/2013 89064 ROUTINE VENIPUNCTURE 05/18/2013 17148 CBC 05/18/2013 58680 CMP 05/18/2013 87404 LIPID PANEL 05/18/2013 [id number] GFR CALC (RESULT ONLY) 05/18/2013 27629 TSH 05/18/2013 44359 ROUTINE VENIPUNCTURE 05/22/2014 93417 CBC 05/22/2014 [id number] GFR CALC (RESULT ONLY) 05/22/2014 94694 CMP 05/22/2014 21741 LIPID PANEL 05/22/2014 18396 TSH 05/22/2014 Results Test Result Range Complete blood count (CBC) with automated white blood cell (WBC) differential - 08/23/16 16:00 Blood leukocytes automated count (number/volume) 7.7 10*3/uL 4.3-11.0 Blood erythrocytes automated count (number/volume) 4.25 10*6/uL 4.35-5.85 Venous blood hemoglobin measurement (mass/volume) 12.7 g/dL 11.5-16.0 Blood hematocrit (volume fraction) 39 % 35-52 Automated erythrocyte mean corpuscular volume 91 [foz_us] 80-99 Automated erythrocyte mean corpuscular hemoglobin (mass per erythrocyte) 30 pg 25-34 Automated erythrocyte mean corpuscular hemoglobin concentration measurement ( mass/volume) 33 g/dL 32-36 Automated erythrocyte distribution width ratio 14.1 % 10.0-14.5 Automated blood platelet count (count/volume) 171 10*3/uL 130-400 Automated blood platelet mean volume measurement 10.8 [foz_us] 7.4-10.4 Automated blood neutrophils/100 leukocytes 58 % 42-75 Automated blood lymphocytes/100 leukocytes 30 % 12-44 Blood monocytes/100 leukocytes 10 % 0-12 Automated blood eosinophils/100 leukocytes 2 % 0-10 Automated blood basophils/100 leukocytes 1 % 0-10 Blood neutrophils automated count (number/volume) 4.5 10*3 1.8-7.8 Blood lymphocytes automated count (number/volume) 2.3 10*3 1.0-4.0 Blood monocytes automated count (number/volume) 0.8 10*3 0.0-1.0 Automated eosinophil count 0.1 10*3/uL 0.0-0.3 Automated blood basophil count (count/volume) 0.1 10*3/uL 0.0-0.1 Comprehensive metabolic panel - 08/23/16 16:00 Serum or plasma sodium measurement (moles/volume) 136 mmol/L 135-145 Serum or plasma potassium measurement (moles/volume) 4.7 mmol/L 3.6-5.0 Serum or plasma chloride measurement (moles/volume) 106 mmol/L 98-107 Carbon dioxide 21 mmol/L 21-32 Serum or plasma anion gap determination (moles/volume) 9 mmol/L 5-14 Serum or plasma urea nitrogen measurement (mass/volume) 9 mg/dL 7-18 Serum or plasma creatinine measurement (mass/volume) 0.97 mg/dL 0.60-1.30 Serum or plasma urea nitrogen/creatinine mass ratio 9 NRG Serum or plasma creatinine measurement with calculation of estimated glomerular filtration rate 56 NRG Serum or plasma glucose measurement (mass/volume) 110 mg/dL 70-105 Serum or plasma calcium measurement (mass/volume) 8.7 mg/dL 8.5-10.1 Serum or plasma total bilirubin measurement (mass/volume) 0.5 mg/dL 0.1-1.0 Serum or plasma alkaline phosphatase measurement (enzymatic activity/volume) 90 U/L 40-136 Serum or plasma aspartate aminotransferase measurement (enzymatic activity/ volume) 33 U/L 5-34 Serum or plasma alanine aminotransferase measurement (enzymatic activity/volume ) 25 U/L 0-55 Serum or plasma protein measurement (mass/volume) 6.9 g/dL 6.4-8.2 Serum or plasma albumin measurement (mass/volume) 3.8 g/dL 3.2-4.5 Magnesium - 08/23/16 16:00 Magnesium 2.3 mg/dL 1.8-2.4 Serum or plasma troponin i.cardiac measurement (mass/volume) - 08/23/16 16:00 Serum or plasma troponin i.cardiac measurement (mass/volume) < ng/ mL <0.30 Serum or plasma lithium measurement (moles/volume) - 08/23/16 16:00 BNP level 420.5 pg/mL <100.0 Complete urinalysis with reflex to culture - 08/23/16 17:00 Urine color determination YELLOW NRG Urine clarity determination CLEAR NRG Urine pH measurement by test strip 6.5 5-9 Specific gravity of urine by test strip 1.010 1.016- 1.022 Urine protein assay by test strip, semi-quantitative NEGATIVE NEGATIVE Urine glucose detection by automated test strip NEGATIVE NEGATIVE Erythrocytes detection in urine sediment by light microscopy NEGATIVE NEGATIVE Urine ketones detection by automated test strip NEGATIVE NEGATIVE Urine nitrite detection by test strip NEGATIVE NEGATIVE Urine total bilirubin detection by test strip NEGATIVE NEGATIVE Urine urobilinogen measurement by automated test strip (mass/volume) NORMAL NORMAL Urine leukocyte esterase detection by dipstick NEGATIVE NEGATIVE Automated urine sediment erythrocyte count by microscopy (number/high power field) [HPF] NRG Automated urine sediment leukocyte count by microscopy (number/high power field ) RARE NRG Bacteria detection in urine sediment by light microscopy NEGATIVE NRG Crystals detection in urine sediment by light microscopy NONE NRG Casts detection in urine sediment by light microscopy NONE NRG Mucus detection in urine sediment by light microscopy NEGATIVE NRG Complete urinalysis with reflex to culture NO NRG PT panel in platelet poor plasma by coagulation assay - 09/22/16 15:15 Prothrombin time (PT) in platelet poor plasma by coagulation assay 17.2 s 12.2-14.7 INR in platelet poor plasma or blood by coagulation assay 1.4 0.8-1.4 PT panel in platelet poor plasma by coagulation assay - 09/27/16 09:45 Prothrombin time (PT) in platelet poor plasma by coagulation assay 22.7 s 12.2-14.7 INR in platelet poor plasma or blood by coagulation assay 2.0 0.8-1.4 Whole blood basic metabolic panel - 09/30/16 10:00 Serum or plasma sodium measurement (moles/volume) 138 mmol/L 135-145 Serum or plasma potassium measurement (moles/volume) 4.0 mmol/L 3.6-5.0 Serum or plasma chloride measurement (moles/volume) 100 mmol/L 98-107 Carbon dioxide 24 mmol/L 21-32 Serum or plasma anion gap determination (moles/volume) 14 mmol/L 5-14 Serum or plasma urea nitrogen measurement (mass/volume) 11 mg/dL 7-18 Serum or plasma creatinine measurement (mass/volume) 1.01 mg/dL 0.60-1.30 Serum or plasma urea nitrogen/creatinine mass ratio 11 NRG Serum or plasma creatinine measurement with calculation of estimated glomerular filtration rate 53 NRG Serum or plasma glucose measurement (mass/volume) 127 mg/dL 70-105 Serum or plasma calcium measurement (mass/volume) 8.9 mg/dL 8.5-10.1 PT panel in platelet poor plasma by coagulation assay - 09/30/16 10:16 Prothrombin time (PT) in platelet poor plasma by coagulation assay 30.9 s 12.2-14.7 INR in platelet poor plasma or blood by coagulation assay 3.0 0.8-1.4 PT panel in platelet poor plasma by coagulation assay - 09/30/16 10:16 Prothrombin time (PT) in platelet poor plasma by coagulation assay 30.9 s 12.2-14.7 INR in platelet poor plasma or blood by coagulation assay 3.0 0.8-1.4 PT panel in platelet poor plasma by coagulation assay - 10/05/16 14:00 Prothrombin time (PT) in platelet poor plasma by coagulation assay 32.4 s 12.2-14.7 INR in platelet poor plasma or blood by coagulation assay 3.2 0.8-1.4 PT panel in platelet poor plasma by coagulation assay - 10/08/16 14:50 Prothrombin time (PT) in platelet poor plasma by coagulation assay 31.8 s 12.2-14.7 INR in platelet poor plasma or blood by coagulation assay 3.1 0.8-1.4 PT panel in platelet poor plasma by coagulation assay - 10/14/16 12:14 Prothrombin time (PT) in platelet poor plasma by coagulation assay 29.6 s 12.2-14.7 INR in platelet poor plasma or blood by coagulation assay 2.8 0.8-1.4 PT panel in platelet poor plasma by coagulation assay - 10/21/16 14:45 Prothrombin time (PT) in platelet poor plasma by coagulation assay 21.2 s 12.2-14.7 INR in platelet poor plasma or blood by coagulation assay 1.9 0.8-1.4 PT panel in platelet poor plasma by coagulation assay - 10/28/16 15:45 Prothrombin time (PT) in platelet poor plasma by coagulation assay 19.7 s 12.2-14.7 INR in platelet poor plasma or blood by coagulation assay 1.7 0.8-1.4 Encounters ACCT No. Visit Date/Time Discharge Status Pt. Type Provider Facility Loc./Unit Complaint [id number] 11/15/2014 09:34:00 11/15/2014 23:59:59 CLS Outpatient ANASTASIYA JOHNSON APRN [id number] 10/14/2014 13:26:00 10/14/2014 23:59:59 CLS Outpatient FRANCESCO PHILLIPS MD [id number] 09/05/2014 10:15:00 09/05/2014 23:59:59 CLS Outpatient ANASTASIYA JOHNSON APRN [id number] 05/30/2014 11:07:00 05/30/2014 23:59:59 CLS Outpatient CELSA PETER DAMIÁN ODILON [id number] 05/22/2014 09:07:00 05/22/2014 23:59:59 CLS Outpatient FRANCESCO PHILLIPS MD [id number] 05/20/2014 09:34:00 05/20/2014 23:59:59 CLS Outpatient FRANCESCO PHILLIPS MD [id number] 03/27/2014 14:44:00 03/27/2014 23:59:59 CLS Outpatient SACHA ORTEGA DDS [id number] 12/27/2013 11:07:00 12/27/2013 23:59:59 CLS Outpatient CELSA PETER DAMIÁN DONALD [id number] 08/10/2013 09:47:00 08/10/2013 23:59:59 CLS Outpatient FRANCESCO PHILLIPS MD [id number] 07/17/2013 11:41:00 07/17/2013 23:59:59 CLS Outpatient ELAINE HANLEY DO [id number] 05/18/2013 08:23:00 05/18/2013 23:59:59 CLS Outpatient FRANCESCO PHILLIPS MD [id number] 01/03/2013 14:37:00 01/03/2013 23:59:59 CLS Outpatient ELAINE HANLEY DO [id number] 12/08/2012 11:12:00 12/08/2012 23:59:59 CLS Outpatient ELAINE HANLEY DO [id number] 11/10/2012 13:02:00 11/10/2012 23:59:59 CLS Outpatient [id number] 11/10/2012 13:02:00 11/10/2012 23:59:59 CLS Outpatient [id number] 09/11/2012 12:11:00 09/11/2012 23:59:59 CLS Outpatient ELAINE HANLEY DO [id number] 07/12/2012 12:11:00 07/12/2012 23:59:59 CLS Outpatient ELAINE HANLEY DO [id number] 03/16/2013 14:38:00 Document Registration [id number] 03/14/2013 12:27:00 Document Registration [id number] 03/08/2013 16:07:00 Document Registration [id number] 12/27/2016 00:09:00 12/27/2016 23:59:59 CLS Preadmit TOMY HILARIO EXTRUDER-C [facility] IRON DEFICIENCY ANEMIA [id number] 10/06/2016 12:54:00 12/26/2016 00:01:00 DIS Outpatient TOMY HILARIO NP-Cristobal [facility] IRON DEFICIENCY ANEMIA [id number] 10/28/2016 15:41:00 10/28/2016 23:59:59 CLS Outpatient JAN CRAIN MD [facility] ANTICOAG THERAPY [id number] 10/21/2016 14:45:00 10/21/2016 23:59:59 CLS Outpatient JAN CRAIN MD [facility] ANTICOAG THERAPY, A FIB [id number] 10/14/2016 12:49:00 10/14/2016 23:59:59 CLS Outpatient JAN CRAIN MD [facility] ANTICOAG THERAPY [id number] 10/08/2016 15:01:00 10/08/2016 23:59:59 CLS Outpatient JAN CRAIN MD [facility] ANTICOAG THERAPY [id number] 10/05/2016 14:29:00 10/05/2016 23:59:59 CLS Outpatient JAN CRAIN MD [facility] ANTICOAG THERAPY [id number] 09/30/2016 13:00:00 09/30/2016 23:59:59 CLS Outpatient OTHER, UNLISTED [facility] ANTICOAG THERAPY [id number] 09/30/2016 10:14:00 09/30/2016 23:59:59 CLS Outpatient JAN CRAIN MD [facility] A FIB, CHF, DIURETIC THERAPY [id number] 09/27/2016 12:05:00 09/27/2016 23:59:59 CLS Outpatient JAN CRAIN MD [facility] 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 THERAPY [id number] 09/24/2016 11:47:00 09/24/2016 23:59:59 CLS Outpatient JAN CRAIN MD [facility] ACUTE ON CHRONIC DIASTOLIC CHF, ANTICOAG [place] [id number] 09/22/2016 15:15:00 09/22/2016 23:59:59 CLS Outpatient JAN CRAIN MD [facility] PERSISTENT A FIB [id number] 08/23/2016 15:15:00 08/23/2016 18:18:00 DIS Emergency KEVIN MCCULLOUGH MD [facility] ER SOB [id number] 05/26/2016 00:10:00 05/26/2016 23:59:59 CLS Preadmit SARA OWENS MD [facility] REHAB [id number] 04/22/2016 09:37:00 05/25/2016 00:01:00 DIS Outpatient SARA OWENS MD [facility] REHAB LOW BACK PAIN [id number] 11/11/2015 13:00:00 11/11/2015 23:59:59 CLS Outpatient TOMY HILARIO [facility] RAD CHRONIC KIDNEY DISEASE STAGE III,HLP [id number] 10/13/2014 16:24:00 10/13/2014 23:59:59 CLS Outpatient JAME DINERO APRN [facility] QUICK [id number] 11/11/2015 13:00:00 Document Registration [id number] 11/11/2015 13:00:00 Document Registration [id number] 11/11/2015 13:00:00 Document Registration [id number] 01/25/2013 21:00:00 Document Registration [id number] 05/09/2012 13:51:00 Document Registration [id number] 05/05/2012 08:24:00 Document Registration [id number] 03/08/2011 07:40:00 Document Registration [id number] 2011 11:53:00 Document Registration [id number] 07/09/2010 13:17:00 Document Registration
[2017-11-09] MEDS ORDERED: fentaNYL INJECTION 100 MCG/2 ML AMP ONE (00:53)
[2017-11-09] MEDS ORDERED: fentaNYL INJECTION 100 MCG/2 ML AMP IVP ONE ×2 (01:00→02:15)
[2017-11-09 01:08] LABS: BASOPHILS # (AUTO) 0.1 10^3/uL (0.0-0.1); BASOPHILS % (AUTO) 1 % (0-10); EOSINOPHILS # (AUTO) 0.2 10^3/uL (0.0-0.3); EOSINOPHILS % (AUTO) 2 % (0-10); HEMATOCRIT 38 % (35-52); HEMOGLOBIN 12.8 G/DL (11.5-16.0); LYMPHOCYTES # (AUTO) 6.4 X 10^3 (1.0-4.0); LYMPHOCYTES % (AUTO) 61 % (12-44); MEAN CORPUSCULAR HEMOGLOBIN 32 PG (25-34); MEAN CORPUSCULAR HGB CONC 34 G/DL (32-36); MEAN CORPUSCULAR VOLUME 96 FL (80-99); MEAN PLATELET VOLUME 10.2 FL (7.4-10.4); MONOCYTES # (AUTO) 1.1 X 10^3 (0.0-1.0); MONOCYTES % (AUTO) 10 % (0-12); NEUTROPHILS # (AUTO) 2.8 X 10^3 (1.8-7.8); NEUTROPHILS % (AUTO) 27 % (42-75); PLATELET COUNT 238 10^3/uL (130-400); RED BLOOD COUNT 3.96 10^6/uL (4.35-5.85); RED CELL DISTRIBUTION WIDTH 12.5 % (10.0-14.5); WHITE BLOOD COUNT 10.5 10^3/uL (4.3-11.0)
[2017-11-09 01:12] LABS: PROTHROMBIN TIME PATIENT 13.7 SEC (12.2-14.7)
[2017-11-09 01:20] LABS: ALBUMIN 4.1 GM/DL (3.2-4.5); BILIRUBIN,TOTAL 0.5 MG/DL (0.1-1.0); CALCIUM 9.7 MG/DL (8.5-10.1); POTASSIUM 4.3 MMOL/L (3.6-5.0); TOTAL PROTEIN 7.6 GM/DL (6.4-8.2)
--- NOTE | 2017-11-09 01:53 | ED Fall/Injury ---
General Chief Complaint: Trauma-Non Activation Stated Complaint: RT HIP PAIN-FALL Nursing Triage Note: PT BROUGHT IN BY [facility] WITH C/O FALL AT HOME. PT REPORTS SHE WAS GETTING UP FROM CHAIR WHEN SHE TRIPPED OVER HER FOOT AND FELL LANDING ON HER LEFT SIDE. PT REPORTS SHE WAS UNABLE TO GET HERSELF UP OFF THE FLOOR AND CRAWLED TO CALL FOR HELP. PT IS C/O L HIP PAIN AT THIS TIME. SHORTENING AND ROTATION NOTED. SHE DENIES HITTING HER HEAD. PT HAS ABRASIONS TO L ELBOW. SHE DENIES ANY OTHER INJURY. Source: patient, EMS Exam Limitations: no limitations History of Present Illness Time seen by provider: 00:50 Initial Comments This pleasant 77 showed one presents to the emergency room via EMS after having a fall in the home and injuring her left hip. She had fallen asleep in a chair and woke up startled. This caused her to twist her ankle and then fall. She denies actually injuring the ankle or any other part of her body besides her hip. She was unable to rise and ambulate. She was eventually able to call for help. She denies any prodrome of lightheadedness, dizziness, etc. She has had a little bit of cough recently but no fever. She has atrial fibrillation and takes Eliquis. Her last dose was this evening around 19:30. Location Injury Occurred: PT HOME Allergies and Home Medications Allergies Coded Allergies: morphine (Verified Adverse Reaction, Unknown, N/V, 12/03/09) Uncoded Allergies: TAPE (Allergy, Unknown, RASH, 08/12/08) Home Medications Acetaminophen 500 Mg Tablet, 1,000 MG PO Q6H PRN for PAIN-MILD, (Reported) TAKES 2 (500MG) TABLETS Alprazolam 2 Mg Tablet, 2 MG PO TID, (Reported) Apixaban 2.5 Mg Tablet, 2.5 MG PO BID, (Reported) Bupropion HCl 300 Mg Tab.er.24h, 300 MG PO DAILY, (Reported) Cholecalciferol (Vitamin D3) 1,000 Unit Capsule, 1,000 UNIT PO DAILY, (Reported) Docusate Sodium 100 Mg Capsule, 200 MG PO HS, (Reported) TAKES 2 (100MG) CAPSULES Flecainide Acetate 50 Mg Tablet, 50 MG PO BID, (Reported) Furosemide 20 Mg Tablet, 10 MG PO Q48H, (Reported) Levothyroxine Sodium 25 Mcg Tablet, 25 MCG PO DAILY, (Reported) Metoclopramide HCl 5 Mg Tablet, 10 MG PO BID WITH MEALS, (Reported) TAKES 2 (5MG) TABLETS WITH NOON AND EVENING MEAL Metoprolol Tartrate 25 Mg Tablet, 25 MG PO BID, (Reported) Omeprazole 20 Mg Capsule.dr, 20 MG PO DAILY, (Reported) Polyethylene Glycol 3350 17 Gm Powd.pack, 17 GM PO DAILY, (Reported) Polyethylene Glycol 3350 17 Gm Powd.pack, 17 GM PO HS PRN for CONSTIPATION-2ND LINE, (Reported) Pravastatin Sodium 40 Mg Tablet, 40 MG PO HS, (Reported) Constitutional: no symptoms reported Eyes: No Symptoms Reported Ears, Nose, Mouth, Throat: no symptoms reported Respiratory: no symptoms reported Cardiovascular: see HPI Gastrointestinal: no symptoms reported Genitourinary: no symptoms reported Musculoskeletal: see HPI Skin: other (abrasion to left elbow) Psychiatric/Neurological: No Symptoms Reported Past Ofeokna-Chvyiv-Ljxpow Hx Patient Social History Alcohol Use: Denies Use Recreational Drug Use: No Smoking Status: Never a Smoker 2nd Hand Smoke Exposure: No Recent Foreign Travel: No Contact w/Someone Who Travel: No Recent Infectious Disease Expo: No Recent Hopitalizations: No Immunizations Up To Date Date of Pneumonia Vaccine: Jul 24, 2010 Seasonal Allergies Seasonal Allergies: No Surgeries History of Surgeries: Yes (RTH, KNEE,HEART CATH) Surgeries: Appendectomy, Breast, Gallbladder, Oophorectomy, Orthopedic, Tonsillectomy, Tubal Ligation Respiratory History of Respiratory Disorde: No Cardiovascular History of Cardiac Disorders: Yes Cardiac Disorders: Atrial Fibrillation (anticoagulated) Neurological History of Neurological Disord: Yes (ANXIETY) Reproductive System Hx Reproductive Disorders: No Sexually Transmitted Disease: No Gastrointestinal History of Gastrointestinal Di: Yes (CONSTIPATION ) Musculoskeletal History of Musculoskeletal Dis: No Endocrine History of Endocrine Disorders: No HEENT History of HEENT Disorders: No Cancer History of Cancer: No 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) Behavioral Health Disorders: Anxiety Blood Transfusions History of Blood Disorders: No Family Medical History Significant Family History: No Pertinent Family Hx Physical Exam Vital Signs Vital Sign - Last 12Hours 11/09/17 00:15 Temp 96.5 Pulse 66 Resp 20 B/P (MAP) 151/89 (109) Pulse Ox 100 O2 Delivery Room Air Capillary Refill : Less Than 3 Seconds General Appearance: WD/WN, mild distress HEENT: PERRL/EOMI, normal ENT inspection Neck: normal inspection Cardiovascular: regular rate, rhythm, no edema, no murmur Respiratory: lungs clear, normal breath sounds, no respiratory distress, no accessory muscle use Gastrointestinal: non tender, soft Extremities: normal inspection, no pedal edema, other (mild tenderness over the left hip and mild pain with external rotation. 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, no motor/sensory deficits, alert, normal mood/affect, oriented x 3 Skin: normal color, warm/dry Lalit Coma Score Best Eye Response: (4) Open Spontaneously Best Verbal Response: (5) Oriented Best Motor Response: (6) Obeys Commands Lalit Total: 15 Progress/Results/Core Measures Results/Orders Lab Results Laboratory Tests Test 11/09/17 00:19 Range/Units White Blood Count 10.5 4.3-11.0 10^3/uL Red Blood Count 3.96 L 4.35-5.85 10^6/uL Hemoglobin 12.8 11.5-16.0 G/DL Hematocrit 38 35-52 % Mean Corpuscular Volume 96 80-99 FL Mean Corpuscular Hemoglobin 32 25-34 PG Mean Corpuscular Hemoglobin Concent 34 32-36 G/DL Red Cell Distribution Width 12.5 10.0-14.5 % Platelet Count 238 130-400 10^3/uL Mean Platelet Volume 10.2 7.4-10.4 FL Neutrophils (%) (Auto) 27 L 42-75 % Lymphocytes (%) (Auto) 61 H 12-44 % Monocytes (%) (Auto) 10 0-12 % Eosinophils (%) (Auto) 2 0-10 % Basophils (%) (Auto) 1 0-10 % Neutrophils # (Auto) 2.8 1.8-7.8 X 10^3 Lymphocytes # (Auto) 6.4 H 1.0-4.0 X 10^3 Monocytes # (Auto) 1.1 H 0.0-1.0 X 10^3 Eosinophils # (Auto) 0.2 0.0-0.3 10^3/uL Basophils # (Auto) 0.1 0.0-0.1 10^3/uL Prothrombin Time 13.7 12.2-14.7 SEC INR Comment 1.0 0.8-1.4 Activated Partial Thromboplast Time 30 24-35 SEC Sodium Level 138 135-145 MMOL/L Potassium Level 4.3 3.6-5.0 MMOL/L Chloride Level 102 98-107 MMOL/L Carbon Dioxide Level 23 21-32 MMOL/L Anion Gap 13 5-14 MMOL/L Blood Urea Nitrogen 16 7-18 MG/DL Creatinine 1.00 0.60-1.30 MG/DL Estimat Glomerular Filtration Rate 54 BUN/Creatinine Ratio 16 Glucose Level 101 70-105 MG/DL Calcium Level 9.7 8.5-10.1 MG/DL Total Bilirubin 0.5 0.1-1.0 MG/DL Aspartate Amino Transf (AST/SGOT) 26 5-34 U/L Alanine Aminotransferase (ALT/SGPT) 23 0-55 U/L Alkaline Phosphatase 89 40-136 U/L Total Protein 7.6 6.4-8.2 GM/DL Albumin 4.1 3.2-4.5 GM/DL My Orders Orders - CAMDEN CENTENO MD Chest 1 View, Ap/Pa Only (11/09/17 00:51) Cbc With Automated Diff (11/09/17 00:51) Comprehensive Metabolic Panel (11/09/17 00:51) Protime With Inr (11/09/17 00:51) Partial Thromboplastin Time (11/09/17 00:51) Saline Lock/Iv-Start (11/09/17 00:51) Colon Cath Insertion (11/09/17 00:51) Fentanyl Injection (Sublimaze Injection (11/09/17 01:00) Pelvis With Left Hip 2-3 Views (11/09/17 00:51) Fentanyl Injection (Sublimaze Injection (11/09/17 00:53) Medications Given in ED Vital Signs/I&O Vital Sign - Last 12Hours 11/09/17 00:15 Temp 96.5 Pulse 66 Resp 20 B/P (MAP) 151/89 (109) Pulse Ox 100 O2 Delivery Room Air Blood Pressure Mean: 109 Progress Note : Progress Note patient's pain was treated with fentanyl. She is found to have a left femoral neck fracture. Case was reviewed with Dr. Solo and Dr. Rao. Patient was to be nothing by mouth after breakfast in preparation for surgery. Dr. Solo would like her off Eliquis for about 24 hours before surgery. Diagnostic Imaging Diagonstic Imaging: Xray Plain Films/CT/US/NM/MRI: pelvis, hip Comments Pelvis and hip x-rays reviewed by me. Report not yet available. A femoral neck fracture was identified on the left Departure Communication (Admissions) Time/Spoke to Admitting Phy: 01:[address] Rao Time/Spoke to Consulting Phy: 01:15 Communication/Consulting Dr. Solo Impression Impression: Primary Impression: Fracture of femoral neck, left Qualified Codes: S72.002A - Fracture of unspecified part of neck of left femur , initial encounter for closed fracture Additional Impressions: Fall on same level Qualified Codes: W18.30XA - Fall on same level, unspecified, initial encounter Atrial fibrillation Qualified Codes: I48.91 - Unspecified atrial fibrillation Anticoagulated Disposition: ADMITTED INPATIENT Condition: Improved Admissions Decision to Admit Reason: Admit from ER (Trauma) Decision to Admit/Date: Nov 09, 2017 Time/Decision to Admit Time: 01:15 Departure-Patient Inst. Referrals: JAN CRAIN MD (PCP/Family) Primary Care Physician CAMDEN CENTENO MD Nov 09, 2017 01:53
--- OUTSIDE RECORDS SUMMARY | 2017-11-09 02:12 | XMS REPORT | Continuity of Care Document ---
Author Author [facility] Address Unknown Phone Unavailable Allergies Active Description Code Type Severity Reaction Onset Reported/Identified Relationship to Patient Clinical Status Yes TAPE TAPE Unknown RASH 08/12/2008 Yes morphine Drug Allergy N/A N/A 11/22/2008 Yes morphine Drug Allergy 11/22/2008 Yes morphine [id number] Drug Allergy Unknown N/V 12/03/2009 Yes Tape [...] JOHNSON APRN V58.69 Taking High-risk Medication 10/05/2008 ELAINE HANLEY DO 790.29 Prediabetes 10/05/2008 [...] Causing Adverse Effects In Therapeutic Use 10/15/2008 LEAINE HANLEY DO F 995.20 Unspecified Adverse Effect [...] FRANCESCO PHILLIPS MD 786.2 Cough 01/23/2009 STEEN MATRIX DRIER TENDER, DAMIÁN DONALD 530.11 ESOPHAGITIS CHRONIC REFLUX 01/23/2009 STEEN MATRIX DRIER TENDER, DAMIÁN DONALD 786.2 Cough 01/23/2009 WHITE DDS, [...] PETER, DAMIÁN DONALD 786.2 Cough 01/23/2009 ALEX MATRIX DRIER TENDER, ANASTASIYA 530.11 ESOPHAGITIS CHRONIC REFLUX 01/23/2009 ALEX MATRIX DRIER TENDER, ANASTASIYA 786.2 Cough 01/23/2009 ALAN HA, FRANCESCO 530.11 ESOPHAGITIS CHRONIC REFLUX 01/23/2009 FRANCESCO PHILLIPS MD 786.2 Cough 01/23/2009 ALEX MATRIX DRIER TENDER, ANASTASIYA 530.11 ESOPHAGITIS CHRONIC REFLUX 01/23/2009 ALEX MATRIX DRIER TENDER, ANASTASIYA 786.2 Cough 01/27/2009 ELAINE HANLEY DO [...] MD 465.9 Upper Respiratory Infection 01/27/2009 CELSA MATRIX DRIER TENDER, DAMIÁN DONALD 465.9 Upper Respiratory Infection 01/27/2009 SHANNON BAZANS, SACHA Granados 465.9 Upper Respiratory Infection 01/27/2009 FRANCESCO PHILLIPS MD 465.9 Upper Respiratory Infection 01/27/2009 FRANCESCO PHILLIPS MD 465.9 Upper Respiratory Infection 01/27/2009 CELSA PETER, DAMIÁN DONALD 465.9 Upper Respiratory Infection 01/27/2009 ALEX MATRIX DRIER TENDER, ANASTASIYA 465.9 Upper Respiratory Infection 01/27/2009 FRANCESCO PHILLIPS MD 465.9 Upper Respiratory Infection 01/27/2009 ALEX MATRIX DRIER TENDER, ANASTASIYA 465.9 Upper Respiratory Infection 02/25/2009 ELAINE [...] HANLEY DO 564.00 Constipation Chronic 03/24/2009 ELAINE HANLYE DO E887 Fracture Cause Unspecified 03/24/2009 ELAINE [...] DAMIÁN STEEN APRN 271.9 GLUCOSE INTOLERANCE 04/03/2009 SHANNON DDS, SACHA Granados 271.9 GLUCOSE INTOLERANCE 04/03/2009 [...] DONALD 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 04/07/2009 ALEX MATRIX DRIER TENDER, ANASTASIYA 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 04/07/2009 ALEX MATRIX DRIER TENDER, ANASTASIYA 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 04/07/2009 FRANCESCO PHILLIPS MD 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 04/07/2009 FRANCESCO PHILLIPS MD 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 04/07/2009 ALEX MATRIX DRIER TENDER, ANASTASIYA 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 04/07/2009 ALEX PETER, ANASTASIYA 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 04/08/2009 ELAINE HANLEY DO F 272.4 HYPERLIPIDEMIA [...] HANLEY DO F 272.4 HYPERLIPIDEMIA 04/08/2009 ELAINE HANELY DO F 727.03 Trigger Finger Of Right [...] Finger Of Right Ring Finger 04/08/2009 ALEX MATRIX DRIER TENDER, ANASTASIYA 272.4 HYPERLIPIDEMIA 04/08/2009 ALEX MATRIX DRIER TENDER, ANASTASIYA 727.03 Trigger Finger Of Right Ring Finger 04/08/2009 FRANCESCO PHILLIPS MD 272.4 HYPERLIPIDEMIA 04/08/2009 FRANCESCO PHILLIPS MD 727.03 Trigger Finger Of Right Ring Finger 04/08/2009 ALEX MATRIX DRIER TENDER, ANASTASIYA 272.4 HYPERLIPIDEMIA 04/08/2009 ALEX MATRIX DRIER TENDER, ANASTASIYA 727.03 Trigger Finger Of Right Ring [...] Exam Prior To General Surgery 05/16/2009 NAEYANG EALINE F 785.2 Murmurs, Undiagnosed Cardiac 05/16/2009 DAYAN [...] APRN, DAMIÁN DONALD 787.02 Nausea 07/11/2009 ALEX MATRIX DRIER TENDER, ANASTASIYA 787.02 Nausea 07/11/2009 FRANCESCO PHILLIPS MD 787.02 Nausea 07/11/2009 ALEX MATRIX DRIER TENDER, ANASTASIYA 787.02 Nausea 08/14/2009 ELAINE HANLEY DO [...] History Of Unspecified Malignant Neoplasm 08/14/2009 FRANCESCO PIHLLIPS MD V16.9 Family History Of Unspecified Malignant [...] Nos 04/16/2010 WERDER DO, ELAINE F V72.31 Flooring Mechanic Exam, Routine 04/16/2010 DAYAN DO ELAINE F 455.6 Hemorrhoids Nos 04/16/2010 DAYAN DO ELAINE F V72.31 Flooring Mechanic Exam, Routine 04/16/2010 455.6 Hemorrhoids Nos 04/16/2010 V72.31 Flooring Mechanic Exam, Routine 04/16/2010 455.6 Hemorrhoids Nos 04/16/2010 V72.31 Flooring Mechanic Exam, Routine 04/16/2010 DAYAN DO ELAINE F 455.6 Hemorrhoids Nos 04/16/2010 NAEDER DO ELAINE F V72.31 Flooring Mechanic Exam, Routine 04/16/2010 WERDER DO ELAINE F 455.6 Hemorrhoids Nos 04/16/2010 NAEDER DO ELAINE F V72.31 Flooring Mechanic Exam, Routine 04/16/2010 455.6 Hemorrhoids Nos 04/16/2010 V72.31 Flooring Mechanic Exam, Routine 04/16/2010 455.6 Hemorrhoids Nos 04/16/2010 V72.31 Flooring Mechanic Exam, Routine 04/16/2010 455.6 Hemorrhoids Nos 04/16/2010 V72.31 Flooring Mechanic Exam, Routine 04/16/2010 FRANCESCO PHILLIPS MD 455.6 Hemorrhoids Nos 04/16/2010 FRANCESCO PHILLIPS MD V72.31 Flooring Mechanic Exam, Routine 04/16/2010 ELAINE HANLEY DO 455.6 Hemorrhoids Nos 04/16/2010 ELAINE HANLEY DO F V72.31 Flooring Mechanic Exam, Routine 04/16/2010 FRANCESCO PHILLIPS MD 455.6 Hemorrhoids Nos 04/16/2010 FRANCESCO PHILLIPS MD V72.31 Flooring Mechanic Exam, Routine 04/16/2010 DAMIÁN STEEN APRN 455.6 Hemorrhoids Nos 04/16/2010 DAMIÁN STEEN APRN V72.31 Flooring Mechanic Exam, Routine 04/16/2010 WHITE DDS, SACHA J 455.6 Hemorrhoids Nos 04/16/2010 WHITE DDS, SACHA J V72.31 Flooring Mechanic Exam, Routine 04/16/2010 FRANCESCO PHILLIPS MD 455.6 Hemorrhoids Nos 04/16/2010 FRANCESCO PHILLIPS MD V72.31 Flooring Mechanic Exam, Routine 04/16/2010 FRANCESCO PHILLIPS MD 455.6 Hemorrhoids Nos 04/16/2010 FRANCESCO PHILLIPS MD V72.31 Flooring Mechanic Exam, Routine 04/16/2010 STEEN MATRIX DRIER TENDER, DAMIÁN DONALD 455.6 Hemorrhoids Nos 04/16/2010 STEEN MATRIX DRIER TENDER, DAMIÁN DONALD V72.31 Flooring Mechanic Exam, Routine 04/16/2010 ALEX MATRIX DRIER TENDER, ANASTASIYA 455.6 Hemorrhoids Nos 04/16/2010 ALEX MATRIX DRIER TENDER, ANASTASIYA V72.31 Flooring Mechanic Exam, Routine 04/16/2010 FRANCESCO PHILLIPS MD 455.6 Hemorrhoids Nos 04/16/2010 FRANCESCO PHILLIPS MD V72.31 Flooring Mechanic Exam, Routine 04/16/2010 ALEX MATRIX DRIER TENDER, ANASTASIYA 455.6 Hemorrhoids Nos 04/16/2010 ALEX MATRIX DRIER TENDER, ANASTASIYA V72.31 Flooring Mechanic Exam, Routine 07/10/2010 Ot 719.41 07/10/2010 Ot [...] V68.1 Issue Of Repeat Prescriptions 12/04/2010 STEEN MATRIX DRIER TENDER, DAMIÁN DONALD 780.4 Dizziness And Vertigo 12/04/2010 DAMIÁN STEEN APRN V65.49 Other Specified Counseling 12/04/2010 DAMIÁN STEEN APRN V68.1 Issue Of Repeat Prescriptions 12/04/2010 ALEX MATRIX DRIER TENDER, ANASTASIYA 780.4 Dizziness And Vertigo 12/04/2010 ALEX MATRIX DRIER TENDER ANASTASIYA V65.49 Other Specified Counseling 12/04/2010 ALEX MATRIX DRIER TENDER ANASTASIYA V68.1 Issue Of Repeat Prescriptions 12/04/2010 FRANCESCO PHILLIPS MD 780.4 Dizziness And Vertigo 12/04/2010 FRANCESCO PHILLIPS MD V65.49 Other Specified Counseling 12/04/2010 FRANCESCO PHILLIPS MD V68.1 Issue Of Repeat Prescriptions 12/04/2010 ALEX MATRIX DRIER TENDER ANASTASIYA 780.4 Dizziness And Vertigo 12/04/2010 ALEX MATRIX DRIER TENDER, ANASTASIYA V65.49 Other Specified Counseling 12/04/2010 ALEX MATRIX DRIER TENDER, ANASTASIYA V68.1 Issue Of Repeat Prescriptions 03/02/2011 [...] MD 780.79 MALAISE AND FATIGUE 03/24/2011 STEEN MATRIX DRIER TENDER, DAMIÁN NEGRETEH 285.9 ANEMIA 03/24/2011 CELSA PETER, DAMIÁN NEGRETEH 780.79 MALAISE AND FATIGUE 03/24/2011 ALEX MATRIX DRIER TENDER, ANASTASIYA 285.9 ANEMIA 03/24/2011 ALEX MATRIX DRIER TENDER, ANASTASIYA 780.79 MALAISE AND FATIGUE 03/24/2011 FRANCESCO PHILLIPS MD 285.9 ANEMIA 03/24/2011 FRANCESCO PHILLIPS MD 780.79 MALAISE AND FATIGUE 03/24/2011 ALEX MATRIX DRIER TENDER, ANASTASIYA 285.9 ANEMIA 03/24/2011 ALEX MATRIX DRIER TENDER, ANASTASIYA 780.79 MALAISE AND FATIGUE 05/12/2011 ELAINE HANLEY DO 244.9 HYPOTHYROIDISM 05/12/2011 ELAINE HANLEY DO 244.9 HYPOTHYROIDISM 05/12/2011 244.9 HYPOTHYROIDISM 05/12/2011 244.9 HYPOTHYROIDISM 05/12/2011 ELAINE HANLEY DO F 244.9 HYPOTHYROIDISM 05/12/2011 ELAINE HANLEY DO F 244.9 HYPOTHYROIDISM 05/12/2011 244.9 HYPOTHYROIDISM 05/12/2011 244.9 HYPOTHYROIDISM 05/12/2011 244.9 HYPOTHYROIDISM 05/12/2011 FRANCESCO PHILLIPS MD 244.9 HYPOTHYROIDISM 05/12/2011 ELAINE HANLEY DO 244.9 HYPOTHYROIDISM 05/12/2011 FRANCESCO PHILLIPS MD 244.9 HYPOTHYROIDISM 05/12/2011 CELSA PETER [...] DAMIÁN STEEN APRN 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 05/14/2011 ANASTASIYA JOHNSON APRN 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 05/14/2011 FRANCESCO PHILLIPS MD 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 05/14/2011 ANASTASIYA JOHNSON [...] SITE OF SPRAIN AND STRAIN 10/14/2014 ANASTASIYA JOHNSON APRN 848.9 UNSPECIFIED SITE OF SPRAIN AND STRAIN 11/11/2015 Ot V72.84 12/09/2015 NEW, TOMY G. RN PACU-C Ot E03.9 12/09/2015 NEW, TOMY G. RN PACU-C Ot E78.5 12/09/2015 NEW, TOMY G. RN PACU-C Ot F32.9 12/09/2015 NEW, TOMY G. RN PACU-C Ot F41.9 12/09/2015 NEW, TOMY G. RN PACU-C Ot I13.10 12/09/2015 NEW, TOMY G. RN PACU-C Ot M19.90 12/09/2015 NEW, TOMY G. RN PACU-C Ot N18.3 12/09/2015 NEW, TOMY G. RN PACU-C Ot R80.9 12/11/2015 NEW, TOMY G. RN PACU-C Ot E03.9 12/11/2015 NEW, TOMY G. RN PACU-C Ot E78.5 12/11/2015 NEW, TOMY G. RN PACU-C Ot F32.9 12/11/2015 NEW, TOMY G. RN PACU-C Ot F41.9 12/11/2015 NEW, TOMY G. RN PACU-C Ot I13.10 12/11/2015 NEW, TOMY G. RN PACU-C Ot M19.90 12/11/2015 NEW, TOMY G. RN PACU-C Ot N18.3 12/11/2015 NEW, TOMY G. RN PACU-C Ot R80.9 04/15/2016 GRACIELA HA, SARA Heaton [...] BREATH 08/23/2016 KEVIN MCCULLOUGH MD Ot Z79.01 ALF (CURRENT) USE OF 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 08/23/2016 KEVIN MCCULLOUGH MD Ot Z79.82 DATA OFFICER (CURRENT) USE OF ASPIRIN 08/23/2016 KEVIN MCCULLOUGH MD Ot Z79.899 OTHER DATA OFFICER (CURRENT) DRUG THERAPY 08/24/2016 KEVIN MCCULLOUGH MD Ot I48.91 UNSPECIFIED ATRIAL FIBRILLATION 08/24/2016 KEVIN MCCULLOUGH MD, Ot J90 PLEURAL EFFUSION, 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 08/24/2016 KEVIN MCCULLOUGH MD Ot R06.02 SHORTNESS OF BREATH 08/24/2016 KEVIN MCCULLOUGH MD Ot Z79.01 ALF (CURRENT) USE OF 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 08/24/2016 KEVIN MCCULLOUGH MD Ot Z79.82 ALF (CURRENT) USE OF ASPIRIN 08/24/2016 JAMEL HA, KEVIN Thomas Ot Z79.899 OTHER ALF (CURRENT) DRUG THERAPY 09/23/2016 JAN CRAIN MD, Ot I48.1 PERSISTENT ATRIAL FIBRILLATION 09/23/2016 JAN CRAIN MD Ot I48.1 PERSISTENT ATRIAL FIBRILLATION 09/24/2016 JAN CRAIN MD, Ot Z79.01 DATA OFFICER (CURRENT) USE OF 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 09/27/2016 JAN CRAIN MD Ot I50.33 ACUTE ON CHRONIC DIASTOLIC (CONGESTIVE) 09/27/2016 JAN CRAIN MD, Ot Z79.01 ALF (CURRENT) USE OF 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 09/27/2016 Ot V72.84 [...] (CONGESTIVE) 09/27/2016 JAN CRAIN MD, Ot Z79.01 DATA OFFICER (CURRENT) USE OF 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 09/28/2016 JAN CRAIN MD Ot Z51.81 ENCOUNTER FOR THERAPEUTIC DRUG LEVEL MON 09/28/2016 JAN CRAIN MD Ot Z79.01 ALF (CURRENT) USE OF 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 09/28/2016 TOMY HILARIO NP-C Ot D50.9 IRON DEFICIENCY ANEMIA, UNSPECIFIED 09/28/2016 SULAIMAN TOMY Lou RN PACU-C Ot D63.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 09/28/2016 SULAIMANTOMY RN PACU-C Ot N18.3 CHRONIC KIDNEY DISEASE, STAGE 3 (MODERAT 09/29/2016 SULAIMAN TOMY Lou RN PACU-C Ot D50.9 IRON DEFICIENCY ANEMIA, UNSPECIFIED 09/29/2016 NEW TOMY Lou RN PACU-C Ot D63.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 09/29/2016 NEW TOMY Lou RN PACU-C Ot N18.3 CHRONIC KIDNEY DISEASE, STAGE 3 (MODERAT 10/01/2016 BREANN HA, JAN L Ot I48.91 UNSPECIFIED ATRIAL FIBRILLATION 10/01/2016 BREANN HA, JAN L Ot I50.9 HEART FAILURE, UNSPECIFIED 10/01/2016 BREANN HA, JAN L Ot Z79.02 ALF (CURRENT) USE OF ANTITHROMBOTI 10/01/2016 BREANN HA, JAN L Ot Z79.899 OTHER ALF (CURRENT) DRUG THERAPY 10/01/2016 SULAIMAN TOMY ErnstBrian RN PACU-C Ot D50.9 IRON DEFICIENCY ANEMIA, UNSPECIFIED 10/01/2016 NEW TOMY Lou RN PACU-C Ot D63.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 10/01/2016 SULAIMAN TOMY Lou RN PACU-C Ot N18.3 CHRONIC KIDNEY DISEASE, STAGE 3 (MODERAT 10/01/2016 OTHER, UNLISTED Ot Z51.81 ENCOUNTER FOR THERAPEUTIC DRUG LEVEL MON 10/01/2016 OTHER, UNLISTED Ot Z79.01 ALF (CURRENT) USE OF 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 10/04/2016 SULAIMAN TOMY ErnstBrian KHAN-C Ot D50.9 IRON DEFICIENCY ANEMIA, UNSPECIFIED 10/04/2016 NEW TOMY ErnstBrian RN PACU-C Ot D63.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 10/04/2016 SULAIMAN TOMY Lou RN PACU-C Ot N18.3 CHRONIC KIDNEY DISEASE, STAGE 3 (MODERAT 10/06/2016 SULAIMAN TOMY Lou RN PACU-C Ot D50.9 IRON DEFICIENCY ANEMIA, UNSPECIFIED 10/06/2016 NEW TOMY ErnstBrian RN PACU-C Ot D63.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 10/06/2016 SULAIMAN TOMY Lou RN PACU-C Ot N18.3 CHRONIC KIDNEY DISEASE, STAGE 3 (MODERAT 10/11/2016 JAN CRAIN MD L Ot Z51.81 ENCOUNTER FOR THERAPEUTIC DRUG LEVEL MON 10/11/2016 JAN CRAIN MD L Ot Z79.01 DATA OFFICER (CURRENT) USE OF 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 10/12/2016 JAN CRAIN MD L Ot Z51.81 ENCOUNTER FOR THERAPEUTIC DRUG LEVEL MON 10/12/2016 JAN CRAIN MD L Ot Z79.01 ALF (CURRENT) USE OF 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 10/13/2016 JAN CRAIN MD L Ot I48.1 PERSISTENT ATRIAL FIBRILLATION 10/14/2016 JAN CRAIN MD L Ot Z79.01 ALF (CURRENT) USE OF 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 10/14/2016 JAN CRAIN MD L Ot Z51.81 ENCOUNTER FOR THERAPEUTIC DRUG LEVEL MON 10/14/2016 JAN CRAIN MD L Ot Z79.01 ALF (CURRENT) USE OF 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 10/15/2016 JAN CRAIN MD L Ot Z51.81 ENCOUNTER FOR THERAPEUTIC DRUG LEVEL MON 10/15/2016 JAN CRAIN MD L Ot Z79.01 ALF (CURRENT) USE OF 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 10/21/2016 JAN CRAIN MD Ot I50.33 ACUTE ON CHRONIC DIASTOLIC (CONGESTIVE) 10/21/2016 JAN CRAIN MD L Ot Z79.01 DATA OFFICER (CURRENT) USE OF 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 10/21/2016 JAN CRAIN MD L Ot Z51.81 ENCOUNTER FOR THERAPEUTIC DRUG LEVEL MON 10/21/2016 JAN CRAIN MD L Ot Z79.01 DATA OFFICER (CURRENT) USE OF 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 10/22/2016 JAN CRAIN MD L Ot I48.91 UNSPECIFIED ATRIAL FIBRILLATION 10/22/2016 JAN CRAIN MD L Ot I48.91 UNSPECIFIED ATRIAL FIBRILLATION 10/22/2016 JAN CRAIN MD L Ot I50.9 HEART FAILURE, UNSPECIFIED 10/22/2016 JAN CRAIN MD L Ot Z79.02 DATA OFFICER (CURRENT) USE OF ANTITHROMBOTI 10/22/2016 JAN CRAIN MD L Ot Z79.899 OTHER DATA OFFICER (CURRENT) DRUG THERAPY 10/22/2016 OTHER, UNLISTED Ot Z51.81 ENCOUNTER FOR THERAPEUTIC DRUG LEVEL MON 10/22/2016 OTHER, UNLISTED Ot Z79.01 ALF (CURRENT) USE OF 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 10/22/2016 JAN CRAIN MD L Ot I48.91 UNSPECIFIED ATRIAL FIBRILLATION 10/22/2016 JAN CRAIN MD L Ot Z79.01 ALF (CURRENT) USE OF 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 10/28/2016 JAN CRAIN MD L Ot Z51.81 ENCOUNTER FOR THERAPEUTIC DRUG LEVEL MON 10/28/2016 JAN CRAIN MD L Ot Z79.01 ALF (CURRENT) USE OF 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 11/01/2016 JAN CRAIN MD L Ot Z51.81 ENCOUNTER FOR THERAPEUTIC DRUG LEVEL MON 11/01/2016 JAN CRAIN MD L Ot Z79.01 DATA OFFICER (CURRENT) USE OF 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 11/01/2016 JAN CRAIN MD L Ot Z51.81 ENCOUNTER FOR THERAPEUTIC DRUG LEVEL MON 11/01/2016 JAN CRAIN MD L Ot Z79.01 ALF (CURRENT) USE OF 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 11/05/2016 JAN CRAIN MD L Ot Z51.81 ENCOUNTER FOR THERAPEUTIC DRUG LEVEL MON 11/05/2016 JAN CRAIN MD L Ot Z79.01 ALF (CURRENT) USE OF 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 11/11/2016 JAN CRAIN MD L Ot I48.91 UNSPECIFIED ATRIAL FIBRILLATION 11/11/2016 JAN CRAIN MD L Ot Z79.01 ALF (CURRENT) USE OF 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 11/18/2016 JAN CRAIN MD L Ot Z51.81 ENCOUNTER FOR THERAPEUTIC DRUG LEVEL MON 11/18/2016 RAJWINDER CRAIN MDCY L Ot Z79.01 ALF (CURRENT) USE OF 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 12/20/2016 TOMY HILARIO RN PACU-C Ot D50.9 IRON DEFICIENCY ANEMIA, UNSPECIFIED 12/20/2016 TOMY HILARIO RN PACU-C Ot D63.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 12/20/2016 TOMY HILARIO RN PACU-C Ot N18.3 CHRONIC KIDNEY DISEASE, STAGE 3 (MODERAT 12/23/2016 TOMY HILARIO RN PACU-C Ot D50.9 IRON DEFICIENCY ANEMIA, UNSPECIFIED 12/23/2016 TOMY HILARIO RN PACU-C Ot D63.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 12/23/2016 TOMY HILARIO RN PACU-C Ot N18.3 CHRONIC KIDNEY DISEASE, STAGE 3 (MODERAT 12/26/2016 TOMY HILARIO RN PACU-C Ot D50.9 IRON DEFICIENCY ANEMIA, UNSPECIFIED 12/26/2016 SULAIMANTOMYBrian KHAN-Cristobal Ot D63.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 12/26/2016 SULAIMAN TOMY ErnstBrian KHAN-C Ot N18.3 CHRONIC KIDNEY DISEASE, STAGE 3 (MODERAT Procedures Code [place] [address] PSYCH IND W/MED CK 20 09/13/2012 66739 ROUTINE VENIPUNCTURE 11/10/2012 93542 QUANTITATIVE ASSAY DRUG 11/23/2012 67444 SLEEP STUDY 01/03/2013 88577 PSYCH DIAGNOSTIC EVALUATION 03/15/2013 41050 ROUTINE VENIPUNCTURE 05/18/2013 87891 CBC 05/18/2013 16654 CMP 05/18/2013 90863 LIPID PANEL 05/18/2013 9780478 GFR CALC (RESULT ONLY) 05/18/2013 36297 TSH 05/18/2013 97242 ROUTINE VENIPUNCTURE 05/22/2014 90301 CBC 05/22/2014 [id number] GFR CALC (RESULT ONLY) 05/22/2014 95196 CMP 05/22/2014 90184 LIPID PANEL 05/22/2014 66166 TSH 05/22/2014 Results Test Result Range Complete [...] or blood by coagulation assay 1.7 0.8-1.4 Complete blood count (CBC) with automated white blood cell (WBC) differential - 11/09/17 00:19 Blood leukocytes automated count (number/volume) 10.5 10*3/uL 4.3-11.0 Blood erythrocytes automated count (number/volume) 3.96 10*6/uL 4.35-5.85 Venous blood hemoglobin measurement (mass/volume) 12.8 g/dL 11.5-16.0 Blood hematocrit (volume fraction) 38 % 35-52 Automated erythrocyte mean corpuscular volume 96 [foz_us] 80-99 Automated erythrocyte mean corpuscular hemoglobin (mass per erythrocyte) 32 pg 25-34 Automated erythrocyte mean corpuscular hemoglobin concentration measurement ( mass/volume) 34 g/dL 32-36 Automated erythrocyte distribution width ratio 12.5 % 10.0-14.5 Automated blood platelet count (count/volume) 238 10*3/uL 130-400 Automated blood platelet mean volume measurement 10.2 [foz_us] 7.4-10.4 Automated blood neutrophils/100 leukocytes 27 % 42-75 Automated blood lymphocytes/100 leukocytes 61 % 12-44 Blood monocytes/100 leukocytes 10 % 0-12 Automated blood eosinophils/100 leukocytes 2 % 0-10 Automated blood basophils/100 leukocytes 1 % 0-10 Blood neutrophils automated count (number/volume) 2.8 10*3 1.8-7.8 Blood lymphocytes automated count (number/volume) 6.4 10*3 1.0-4.0 Blood monocytes automated count (number/volume) 1.1 10*3 0.0-1.0 Automated eosinophil count 0.2 10*3/uL 0.0-0.3 Automated blood basophil count (count/volume) 0.1 10*3/uL 0.0-0.1 PT panel in platelet poor plasma by coagulation assay - 11/09/17 00:19 Prothrombin time (PT) in platelet poor plasma by coagulation assay 13.7 s 12.2-14.7 INR in platelet poor plasma or blood by coagulation assay 1.0 0.8-1.4 Activated partial thromboplastin time (aPTT) in platelet poor plasma bycoagulation assay - 11/09/17 00:19 Activated partial thromboplastin time (aPTT) in platelet poor plasma bycoagulation assay 30 s 24-35 Comprehensive metabolic panel - 11/09/17 00:19 Serum or plasma sodium measurement (moles/volume) 138 mmol/L 135-145 Serum or plasma potassium measurement (moles/volume) 4.3 mmol/L 3.6-5.0 Serum or plasma chloride measurement (moles/volume) 102 mmol/L 98-107 Carbon dioxide 23 mmol/L 21-32 Serum or plasma anion gap determination (moles/volume) 13 mmol/L 5-14 Serum or plasma urea nitrogen measurement (mass/volume) 16 mg/dL 7-18 Serum or plasma creatinine measurement (mass/volume) 1.00 mg/dL 0.60-1.30 Serum or plasma urea nitrogen/creatinine mass ratio 16 NRG Serum or plasma creatinine measurement with calculation of estimated glomerular filtration rate 54 NRG Serum or plasma glucose measurement (mass/volume) 101 mg/dL 70-105 Serum or plasma calcium measurement (mass/volume) 9.7 mg/dL 8.5-10.1 Serum or plasma total bilirubin measurement (mass/volume) 0.5 mg/dL 0.1-1.0 Serum or plasma alkaline phosphatase measurement (enzymatic activity/volume) 89 U/L 40-136 Serum or plasma aspartate aminotransferase measurement (enzymatic activity/ volume) 26 U/L 5-34 Serum or plasma alanine aminotransferase measurement (enzymatic activity/volume ) 23 U/L 0-55 Serum or plasma protein measurement (mass/volume) 7.6 g/dL 6.4-8.2 Serum or plasma albumin measurement (mass/volume) 4.1 g/dL 3.2-4.5 Encounters ACCT No. Visit Date/Time Discharge Status Pt. Type Provider Facility Loc./Unit Complaint [id number] 11/15/2014 09:34:00 11/15/2014 23:59:59 [facility] Outpatient ANASTASIYA JOHNSON APRN [id number] 10/14/2014 13:26:00 10/14/2014 23:59:59 [facility] Outpatient ALAN HA, FRANCESCO [id number] 09/05/2014 10:15:00 09/05/2014 23:59:59 [facility] Outpatient ANASTASIYA JOHNSON APRN [id number] 05/30/2014 11:07:00 05/30/2014 23:59:59 C[facility] Outpatient DAMIÁN STEEN APRN [id number] 05/22/2014 09:07:00 05/22/2014 23:59:59 CLS Outpatient FRANCESCO PHILLIPS MD [id number] 05/20/2014 09:34:00 05/20/2014 23:59:59 CLS Outpatient FRANCESCO PHILLIPS MD [id number] 03/27/2014 14:44:00 03/27/2014 23:59:59 CLS Outpatient SACHA ORTEGA DDS [id number] 12/27/2013 11:07:00 12/27/2013 23:59:59 CLS Outpatient DAMIÁN STEEN APRN [id number] 08/10/2013 09:47:00 08/10/2013 23:59:59 CLS Outpatient FRANCESCO PHILLIPS MD [id number] 07/17/2013 11:41:00 07/17/2013 23:59:59 CLS Outpatient ELAINE HANLEY DO [id number] 05/18/2013 08:23:00 05/18/2013 23:59:59 CLS Outpatient FRANCESCO PHILLIPS MD [id number] 01/03/2013 14:37:00 01/03/2013 23:59:59 CLS Outpatient ELAINE HANLEY DO [id number] 12/08/2012 11:12:00 12/08/2012 23:59:59 CLS Outpatient ELAINE HANLEY DO [id number] 11/10/2012 13:02:00 11/10/2012 23:59:59 CLS Outpatient [id number] 11/10/2012 13:02:00 11/10/2012 23:59:59 CLS Outpatient [id number] 09/11/2012 12:11:00 09/11/2012 23:59:59 CLS Outpatient ELAINE HANLEY DO [id number] 07/12/2012 12:11:00 07/12/2012 23:59:59 CLS Outpatient ELAINE HANLEY DO [id number] 03/16/2013 14:38:00 Document Registration [id number] 03/14/2013 12:27:00 Document Registration [id number] 03/08/2013 16:07:00 Document Registration [id number] 12/27/2016 00:09:00 12/27/2016 23:59:59 CLS Preadmit TOMY HILARIO NP-Cristobal [facility] IRON DEFICIENCY ANEMIA [id number] 10/06/2016 12:54:00 12/26/2016 00:01:00 DIS Outpatient TOMY HILARIO [facility] IRON DEFICIENCY ANEMIA [id number] 10/28/2016 15:41:00 10/28/2016 23:59:59 CLS Outpatient JAN CRAIN MD [facility] ANTICOAG THERAPY [id number] 10/21/2016 14:45:00 10/21/2016 23:59:59 CLS Outpatient JAN CRAIN MD [facility] ANTICOAG THERAPY, A FIB [id number] 10/14/2016 12:49:00 10/14/2016 23:59:59 CLS Outpatient JAN CRAIN MD [facility] ANTICOAG THERAPY [id number] 10/08/2016 15:01:00 10/08/2016 23:59:59 CLS Outpatient JAN CRAIN MD [facility] ANTICOAG THERAPY [id number] 10/05/2016 14:29:00 10/05/2016 23:59:59 CLS Outpatient JAN CRAIN MD [facility] ANTICOAG THERAPY [id number] 09/30/2016 13:00:00 09/30/2016 23:59:59 CLS Outpatient OTHER, UNLISTED [facility] ANTICOAG THERAPY [id number] 09/30/2016 10:14:00 09/30/2016 23:59:59 CLS Outpatient JAN CRAIN MD [facility] A FIB, CHF, DIURETIC THERAPY [id number] 09/27/2016 12:05:00 09/27/2016 23:59:59 CLS Outpatient JAN CRAIN MD [facility] 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 THERAPY [id number] 09/24/2016 11:47:00 09/24/2016 23:59:59 CLS Outpatient JAN CRAIN MD [facility] ACUTE ON CHRONIC DIASTOLIC CHF, ANTICOAG [place] [id number] 09/22/2016 15:15:00 09/22/2016 23:59:59 CLS Outpatient BREANN HA, JAN Julián [facility] HH PERSISTENT A FIB [id number] 08/23/2016 15:15:00 08/23/2016 18:18:00 DIS Emergency KEVIN MCCULLOUGH MD [facility] ER SOB [id number] 05/26/2016 00:10:00 05/26/2016 23:59:59 CLS Preadmit SARA OWENS MD [facility] REHAB [id number] 04/22/2016 09:37:00 05/25/2016 00:01:00 DIS Outpatient SARA OWENS MD [facility] REHAB LOW BACK PAIN [id number] 11/11/2015 13:00:00 11/11/2015 23:59:59 CLS Outpatient TOMY HILARIO NP-Cristobal [facility] RAD CHRONIC KIDNEY DISEASE STAGE III,HLP [id number] 10/13/2014 16:24:00 10/13/2014 23:59:59 CLS Outpatient RIDINGS, JAME Cristobal BELCHERN [facility] QUICK [id number] 11/09/2017 01:13:00 Document Registration [id number] 11/11/2015 13:00:00 Document Registration [id number] 11/11/2015 13:00:00 Document Registration [id number] 11/11/2015 13:00:00 Document Registration [id number] 01/25/2013 21:00:00 Document Registration [id number] 05/09/2012 13:51:00 Document Registration [id number] 05/05/2012 08:24:00 Document Registration [id number] 03/08/2011 07:40:00 Document Registration [id number] 11:53:00 Document Registration [id number] 07/09/2010 13:17:00 Document Registration
[2017-11-09 02:37] VITALS: BP 147/67
[2017-11-09 03:54] VITALS: BP 141/63
[2017-11-09] MEDS ORDERED: ONDANSETRON 4 MG/2 ML (SDV) Z0FRAN IV PRN (04:00)
[2017-11-09] MEDS: NS IV 1000 ML 1,000 ML IV SCH ×2 (04:23→15:21)
[2017-11-09] MEDS: fentaNYL INJECTION 100 MCG/2 ML AMP IV PRN ×8 (04:26→23:22)
[2017-11-09] MEDS: LEVOTHYROXINE 25 MCG (LEVOTHROID) TAB PO SCH (05:33)
--- NOTE | 2017-11-09 06:12 | Diagnostic Imaging Report ---
INDICATION: Fall. Left hip pain. COMPARISON: 08/23/2016. FINDINGS: Portable chest shows the lungs to be well aerated. There are no infiltrates or masses. Heart is not enlarged. There is no pulmonary edema. No hilar adenopathy. No pneumothorax or pleural effusion. IMPRESSION: Normal portable chest. Dictated by: Dictated on workstation # [id number]
[2017-11-09 07:05] LABS: ALANINE AMINOTRANSFERASE 23 U/L (0-55); ALBUMIN 3.9 GM/DL (3.2-4.5); ALKALINE PHOSPHATASE 84 U/L (40-136); BILIRUBIN,TOTAL 0.6 MG/DL (0.1-1.0); BUN/CREATININE RATIO 17; CALCIUM 9.5 MG/DL (8.5-10.1); CARBON DIOXIDE 26 MMOL/L (21-32); CHLORIDE 103 MMOL/L (98-107); CREATININE SERUM 0.89 MG/DL (0.60-1.30); GFR ESTIMATED > 60; GLUCOSE 111 MG/DL (70-105); POTASSIUM 4.6 MMOL/L (3.6-5.0); SODIUM 139 MMOL/L (135-145); TOTAL PROTEIN 7.3 GM/DL (6.4-8.2)
[2017-11-09 08:00] VITALS: BP 135/63
--- NOTE | 2017-11-09 08:08 | Diagnostic Imaging Report ---
EXAMINATION: Pelvis with left hip. INDICATION: Injury hip pain Single AP view of the pelvis and AP and lateral views of the left hip were obtained. There is an impacted essentially nondisplaced fracture of the left femoral neck. No other fracture or acute bony abnormality is noted. 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 The prosthetic component is seen to be in good position. There is an oval calcification overlying the right ilium. This finding was also present on the prior exam of 03/17/2007, has not changed. The soft tissues are unremarkable. IMPRESSION: There is impacted fracture left femoral neck. No other acute bony abnormality is noted. Dictated by: Dictated on workstation # [id number]
[2017-11-09] MEDS: FAMOTIDINE 20MG/2ML IV (PEPCID) IVP SCH ×2 (08:12→20:02)
[2017-11-09] MEDS: CATHETER FLUSH 10 ML SYR IV PRN (08:13)
[2017-11-09] MEDS: FLECAINIDE 100 MG (TAMBOCOR) TAB PO SCH (08:13)
[2017-11-09] MEDS: buPROPion SR 150 MG (WELLBUTRIN SR) TAB PO SCH ×2 (08:13→20:02)
[2017-11-09] MEDS: ALPRAZolam 1 MG (XANAX) TAB PO SCH ×3 (08:13→20:02)
[2017-11-09] MEDS: meTOprolol TARTRATE 25 MG (LOPRESSOR) TABLET PO SCH ×2 (08:14→20:03)
[2017-11-09] MEDS ORDERED: CHOL10007 PO (08:31)
[2017-11-09] MEDS ORDERED: DOCU-143 PO (08:31)
[2017-11-09] MEDS ORDERED: PRAV40TA2 PO (08:31)
[2017-11-09] MEDS ORDERED: FLEC50TA PO (08:31)
[2017-11-09] MEDS ORDERED: FURO20TA4 PO (08:31)
[2017-11-09] MEDS ORDERED: FERR325T24 PO (08:31)
[2017-11-09] MEDS ORDERED: POLY17PO6 PO ×2 (08:31)
[2017-11-09] MEDS ORDERED: METO-333 PO (08:31)
[2017-11-09] MEDS ORDERED: APIX2.5T PO (08:31)
[2017-11-09] MEDS ORDERED: ALPR2TAB6 PO (08:31)
[2017-11-09] MEDS ORDERED: METO5TAB2 PO (08:31)
[2017-11-09] MEDS ORDERED: OMEP20CA12 PO (08:31)
[2017-11-09] MEDS ORDERED: ACET-168 PO (08:31)
[2017-11-09] MEDS ORDERED: LEVO25TA5 PO (08:31)
[2017-11-09] MEDS ORDERED: BUPR300T51 PO (08:31)
--- NOTE | 2017-11-09 10:57 | History & Physicial (CHS) ---
[facility]09[facility]17 1056: HPI History of Present Illness: 77yo female with PMH of Anxiety/depression, A fib, and hypothyroidism presents to ED after she fell at home on her left side. Pt stated she fell asleep in her chair around 2030 last night and woke up around 2300. When she stood up, she tripped over her left foot and fell onto her left side. She fell on her left hip ; she is unsure if she fell onto her knee. She also has an abrasion on her left elbow. She denies hitting her head or LOC. Pt states she has pain in left hip (8 /10) and now has a lot of pain in her left knee (8/10). Pt denies numbness/ tingling in extremities. Pt states pain is sharp and constant; does not radiate anywhere. Pt states pain medications help with pain. Pt states she had some SOA when she presented to the ED; she has never had to use O2 in the past. Denies cough. Pt states she gets constipated occasionally; pt had last bowel movement 2 days ago. Pt uses cane when she is out; she does not use cane at home. She has had a few falls in the past year; denies LOC or hospitalization. Pt see Dr. Nixon at [facility] in for a fib. Source: patient Exam Limitations: no limitations Date seen by provider: Nov 09, 2017 Time Seen by Provider: 09:45 Attending Physician Bin Kitchen MD PCP Radha Nixon MD and Francesco Phillips at [facility] Consult Date of Admission Nov 09, 2017 at 01:40 Home Medications Home Medications Reviewed patient Home Medication Reconciliation Form Allergies Coded Allergies: morphine (Verified Adverse Reaction, Unknown, N/V, 12/03/09) Uncoded Allergies: TAPE (Allergy, Unknown, RASH, 08/12/08) FZX-Rkiebo-Mvkjad Hx Patient Social History Alcohol Use: Denies Use Recreational Drug Use: No Smoking Status: Never a Smoker 2nd Hand Smoke Exposure: No Recent Foreign Travel: No Contact w/other who traveled: No Recent Hopitalizations: No Recent Infectious Disease Expo: No Physical Abuse Screen: No Sexual Abuse: No Immunizations Up To Date Date of Pneumonia Vaccine: Jul 24, 2010 Date of Influenza Vaccine: Jul 24, 2017 Past Medical History A fib Hypothyroidism Anxiety/Depression Family Medical History Significant Family History: No Pertinent Family Hx Family History: FH: stroke 19 FATHER G8 SISTER Myocardial infarction 19 FATHER G8 BROTHER G8 BROTHER Review of Systems (CHC) Constitutional: no symptoms reported, No chills, No dizziness, No fever, No weakness EENTM: no symptoms reported Respiratory: no symptoms reported, No cough, No dyspnea on exertion, No short of breath, No wheezing Cardiovascular: no symptoms reported, No chest pain, No edema, No palpitations Gastrointestinal: No abdominal pain, constipation (last BM 2 days ago), No diarrhea, No nausea, No vomiting Genitourinary: no symptoms reported Musculoskeletal: No back pain, No joint pain, No neck pain, other (left knee pain and left hip pain) Skin: no symptoms reported, No change in color, No dryness, No lesions Psychiatric/Neurological: Anxiety, Denies Depressed, Denies Headache, Denies Numbness, Denies Paresthesia, Denies Tingling, Denies Tremors, Denies Weakness Reviewed Test Results Reviewed Test Results Lab Laboratory Tests Test 11/09/17 00:19 11/09/17 05:40 Range/Units White Blood Count 10.5 4.3-11.0 10^3/uL Red Blood Count 3.96 L 4.35-5.85 10^6/uL Hemoglobin 12.8 11.5-16.0 G/DL Hematocrit 38 35-52 % Mean Corpuscular Volume 96 80-99 FL Mean Corpuscular Hemoglobin 32 25-34 PG Mean Corpuscular Hemoglobin Concent 34 32-36 G/DL Red Cell Distribution Width 12.5 10.0-14.5 % Platelet Count 238 130-400 10^3/uL Mean Platelet Volume 10.2 7.4-10.4 FL Neutrophils (%) (Auto) 27 L 42-75 % Lymphocytes (%) (Auto) 61 H 12-44 % Monocytes (%) (Auto) 10 0-12 % Eosinophils (%) (Auto) 2 0-10 % Basophils (%) (Auto) 1 0-10 % Neutrophils # (Auto) 2.8 1.8-7.8 X 10^3 Lymphocytes # (Auto) 6.4 H 1.0-4.0 X 10^3 Monocytes # (Auto) 1.1 H 0.0-1.0 X 10^3 Eosinophils # (Auto) 0.2 0.0-0.3 10^3/uL Basophils # (Auto) 0.1 0.0-0.1 10^3/uL Prothrombin Time 13.7 12.2-14.7 SEC INR Comment 1.0 0.8-1.4 Activated Partial Thromboplast Time 30 24-35 SEC Sodium Level 138 139 135-145 MMOL/L Potassium Level 4.3 4.6 3.6-5.0 MMOL/L Chloride Level 102 103 98-107 MMOL/L Carbon Dioxide Level 23 26 21-32 MMOL/L Anion Gap 13 10 5-14 MMOL/L Blood Urea Nitrogen 16 15 7-18 MG/DL Creatinine 1.00 0.89 0.60-1.30 MG/DL Estimat Glomerular Filtration Rate 54 > 60 BUN/Creatinine Ratio 16 17 Glucose Level 101 111 H 70-105 MG/DL Calcium Level 9.7 9.5 8.5-10.1 MG/DL Total Bilirubin 0.5 0.6 0.1-1.0 MG/DL Aspartate Amino Transf (AST/SGOT) 26 26 5-34 U/L Alanine Aminotransferase (ALT/SGPT) 23 23 0-55 U/L Alkaline Phosphatase 89 84 40-136 U/L Total Protein 7.6 7.3 6.4-8.2 GM/DL Albumin 4.1 3.9 3.2-4.5 GM/DL Radiology Date of Exam:11/09/17 PELVIS WITH LEFT HIP 2-3 VIEWS EXAMINATION: Pelvis with left hip. INDICATION: Injury hip pain Single AP view of the pelvis and AP and lateral views of the left hip were obtained. There is an impacted essentially nondisplaced fracture of the left femoral neck. No other fracture or acute bony abnormality is noted. 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 The prosthetic component is seen to be in good position. There is an oval calcification overlying the right ilium. This finding was also present on the prior exam of 03/17/2007, has not changed. The soft tissues are unremarkable. IMPRESSION: There is impacted fracture left femoral neck. No other acute bony abnormality is noted. Date of Exam:11/09/17 CHEST 1 VIEW, AP/PA ONLY INDICATION: Fall. Left hip pain. COMPARISON: 08/23/2016. FINDINGS: Portable chest shows the lungs to be well aerated. There are no infiltrates or masses. Heart is not enlarged. There is no pulmonary edema. No hilar adenopathy. No pneumothorax or pleural effusion. IMPRESSION: Normal portable chest. Physical Exam-([facility]) Physical Exam Vital Signs VS - Last 72 Hours, by Label 11/09/17 11/09/17 11/09/17 11/09/17 00:15 02:30 02:37 03:23 Temp 96.5 96.5 97.8 Pulse 66 62 64 Resp 20 16 20 B/P (MAP) 151/89 (109) 147/67 (93) Pulse Ox 100 100 98 O2 Delivery Room Air Nasal Cannula Nasal Cannula Nasal Cannula O2 Flow Rate 2.00 1.00 1.00 11/09/17 11/09/17 11/09/17 11/09/17 03:54 07:00 08:00 08:00 Temp 97.4 97.4 97.9 Pulse 62 71 Resp 18 20 B/P (MAP) 141/63 (89) 135/63 (87) Pulse Ox 99 97 97 O2 Delivery Nasal Cannula Nasal Cannula Nasal Cannula O2 Flow Rate 1.00 1.00 1.00 11/09/17 09:12 Temp 97.4 Capillary Refill : Less Than 3 SecondsLess Than 3 Seconds General Appearance: WD/WN, no apparent distress HEENT: PERRL/EOMI, normal ENT inspection, TMs normal, pharynx normal Neck: non-tender, full range of motion, supple, normal inspection Respiratory: chest non-tender, lungs clear, normal breath sounds, no respiratory distress, no accessory muscle use Cardiovascular: normal peripheral pulses, regular rate, rhythm, no edema, systolic murmur (since childhood) Gastrointestinal: normal bowel sounds, non tender, soft, no organomegaly, no pulsatile mass Extremities: no pedal edema, normal capillary refill, other (tender to palpation in left knee; top of knee most tender, tender to palpation on left hip , left leg shortened and rotated out, no redness ) 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 Left hip fracture -Xray: impacted fracture of left femoral neck -Ortho consulted -pt on Apixaban for A fib -consider Orthostatic vitals after surgery -continue pain management with Fentanyl Left knee pain -get left knee Xray today -continue pain management Anxiety/Depression -continue Xanax and Wellbutrin -consider tapering dose in future; could be contributing to falls Constipation -add bowel regimen post surgery; Miralax as needed Dyspnea -pt on 1L of O2 with normal O2 sats -discontinue O2 today A fib -continue Flecainide and Metoprolol -discontinue Apixaban -continue to monitor for symptoms Hypothyroidism -continue Levothyroxine FEN: Regular diet; NPO prior to surgery DVT PPX: none; Apixaban discontinued prior to surgery Dispo: Ortho consulted; surgery pending. Most likely be hospitalized for a few days. BIN KITCHEN MD 11/09/17 1140: HPI History of Present Illness: This AM states that her pain is not well controlled. IV meds only last a short time then she is having alot of pain in her left hip and knee. Patient denies any chest pain, palpitations, or shortness of breath or cough. Source: patient, RN/MD Exam Limitations: no limitations Home Medications Allergies Coded Allergies: morphine (Verified Adverse Reaction, Unknown, N/V, 12/03/09) Uncoded Allergies: TAPE (Allergy, Unknown, RASH, 08/12/08) IEZ-Nzswqr-Naocsl Hx Patient Social History Living Status: Lives at home Family Medical History Family History: FH: stroke 19 FATHER G8 SISTER Myocardial infarction 19 FATHER G8 BROTHER G8 BROTHER Physical Exam-([facility]) Physical Exam Vital Signs VS - Last 72 Hours, by Label 11/09/17 11/09/17 11/09/17 11/09/17 00:15 02:30 02:37 03:23 Temp 96.5 96.5 97.8 Pulse 66 62 64 Resp 20 16 20 B/P (MAP) 151/89 (109) 147/67 (93) Pulse Ox 100 100 98 O2 Delivery Room Air Nasal Cannula Nasal Cannula Nasal Cannula O2 Flow Rate 2.00 1.00 1.00 1/17/18 11/09/17 11/09/17 11/09/17 03:54 08:00 08:00 09:12 Temp 97.4 97.9 97.4 Pulse 62 71 Resp 18 20 B/P (MAP) 141/63 (89) 135/63 (87) Pulse Ox 99 97 97 O2 Delivery Nasal Cannula Nasal Cannula Nasal Cannula O2 Flow Rate 1.00 1.00 1.00 11/09/17 09:45 Temp 97.4 General Appearance: WD/WN, no apparent distress HEENT: PERRL/EOMI Respiratory: chest non-tender, lungs clear, normal breath sounds Cardiovascular: normal peripheral pulses, regular rate, rhythm, no edema, systolic murmur (/) Gastrointestinal: normal bowel sounds, non tender, soft, no organomegaly Extremities: no pedal edema, no calf tenderness, normal capillary refill, other (tender to palpation in left knee; top of knee most tender, tender to palpation on left hip, left leg shortened and rotated out, no redness ) 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, no motor/sensory deficits, alert, normal mood/affect, oriented x 3 Skin: normal color, warm/dry Lymphatic: no adenopathy Copy Copies To 1: FRANCESCO PHILLIPS MD Assessment/Plan Assessment/Plan Plan 77 yo F admitted for Acute left hip fracture Left hip fracture - Management per Ortho - Hgb normal, VS stable - Holding anticoagulation for surgery, will restart after surgery when ok with ortho Left Knee Pain - Xray today Dyspnea likely 2/2 atelectasis - Encourage IS, titrate oxygen as tolerated Agree with above A/P, Patient seen and evaluated with Lynne Arias, MS4 LYNNE ARIAS STDENT Nov 09, 2017 10:56 BIN KITCHEN MD Nov 09, 2017 11:40
[2017-11-09 12:00] VITALS: BP 135/63
--- NOTE | 2017-11-09 12:01 | Consultation ---
History of Present Illness History of Present Illness Patient Consulted On(garcia/time) 11/09/17 11:55 Date Seen by Provider: Nov 09, 2017 Time Seen by Provider: 11:00 Reason for Visit: Left hip fracture Allergies and Home Medications Allergies Coded Allergies: morphine (Verified Adverse Reaction, Unknown, N/V, 12/03/09) Uncoded Allergies: TAPE (Allergy, Unknown, RASH, 08/12/08) Home Medications Acetaminophen 500 Mg Tablet, 1,000 MG PO Q6H PRN for PAIN-MILD, (Reported) TAKES 2 (500MG) TABLETS Alprazolam 2 Mg Tablet, 2 MG PO TID, (Reported) Apixaban 2.5 Mg Tablet, 2.5 MG PO BID, (Reported) Bupropion HCl 300 Mg Tab.er.24h, 300 MG PO DAILY, (Reported) Cholecalciferol (Vitamin D3) 1,000 Unit Capsule, 1,000 UNIT PO DAILY, (Reported) Docusate Sodium 100 Mg Capsule, 200 MG PO HS, (Reported) TAKES 2 (100MG) CAPSULES Flecainide Acetate 50 Mg Tablet, 50 MG PO BID, (Reported) Furosemide 20 Mg Tablet, 10 MG PO Q48H, (Reported) Levothyroxine Sodium 25 Mcg Tablet, 25 MCG PO DAILY, (Reported) Metoclopramide HCl 5 Mg Tablet, 10 MG PO BID WITH MEALS, (Reported) TAKES 2 (5MG) TABLETS WITH NOON AND EVENING MEAL Metoprolol Tartrate 25 Mg Tablet, 25 MG PO BID, (Reported) Omeprazole 20 Mg Capsule.dr, 20 MG PO DAILY, (Reported) Polyethylene Glycol 3350 17 Gm Powd.pack, 17 GM PO DAILY, (Reported) Polyethylene Glycol 3350 17 Gm Powd.pack, 17 GM PO HS PRN for CONSTIPATION-2ND LINE, (Reported) Pravastatin Sodium 40 Mg Tablet, 40 MG PO HS, (Reported) Past [place]-Ufmfbw-Lalqjg Hx Patient Social History Alcohol Use: Denies Use Recreational Drug Use: No Smoking Status: Never a Smoker 2nd Hand Smoke Exposure: No Recent Foreign Travel: No Contact w/Someone Who Travel: No Recent Infectious Disease Expo: No Recent Hopitalizations: No Immunizations Up To Date PED Vaccines UTD: Yes Date of Pneumonia Vaccine: Jul 24, 2010 Date of Influenza Vaccine: Jul 24, 2017 Seasonal Allergies Seasonal Allergies: No Surgeries History of Surgeries: Yes (RTH, KNEE,HEART CATH, BREAST BIOPSY, R ROTATOR CUFF) Surgeries: Appendectomy, Breast, Gallbladder, Oophorectomy, Orthopedic, Tonsillectomy, Tubal Ligation Respiratory History of Respiratory Disorde: No Cardiovascular History of Cardiac Disorders: Yes Neurological History of Neurological Disord: Yes (ANXIETY) Reproductive System : No Hx Reproductive Disorders: No Sexually Transmitted Disease: No HIV/AIDS: No Genitourinary History of Genitourinary Disor: No Gastrointestinal History of Gastrointestinal Di: Yes (CONSTIPATION ) Gastrointestinal Disorders: Hiatal Hernia Musculoskeletal History of Musculoskeletal Dis: No Endocrine History of Endocrine Disorders: No HEENT History of HEENT Disorders: No Cancer History of Cancer: No 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) Integumentary History of Skin or Integumenta: No Blood Transfusions History of Blood Disorders: No Adverse Reaction to a Blood Tr: No Family Medical History Significant Family History: No Pertinent Family Hx Family Medial History: FH: stroke 19 FATHER G8 SISTER Myocardial infarction 19 FATHER G8 BROTHER G8 BROTHER Review of Systems-General EENTM: no symptoms reported Respiratory: no symptoms reported Cardiovascular: no symptoms reported Gastrointestinal: no symptoms reported : No Musculoskeletal: joint pain, other (Left hip pain) Skin: no symptoms reported Psychiatric/Neurological: No Symptoms Reported Physical Exam-General Problems Physical Exam Vital Signs Vital Sign - Last 12Hours 11/09/17 11/09/17 00:15 02:30 Temp 96.5 Pulse 66 Resp 20 B/P (MAP) 151/89 (109) Pulse Ox 100 O2 Delivery Room Air O2 Flow Rate 2.00 Capillary Refill : Less Than 3 SecondsLess Than 3 Seconds General Appearance: WD/WN, no apparent distress Eyes: Bilateral Eye Normal Inspection HEENT: PERRL/EOMI, normal ENT inspection Neck: full range of motion, supple Respiratory: no respiratory distress, no accessory muscle use Cardiovascular: normal peripheral pulses, regular rate, rhythm Peripheral Pulses: 2+ Dorsalis Pedis (R), 2+ Left Dors-Pedis (L) Gastrointestinal: non tender, soft Extremities: no pedal edema, no calf tenderness, other (LLE: shortened/ externally rotated, all compartments soft/NT, motor/sensation grossly intact, foot well perfused, skin intact, no open wounds.) Skin: normal color, warm/dry Lymphatic: no adenopathy Assessment/Plan Assessment/Plan Admission Diagnosis/Plan 77 y/o female with acute onset of severe Left hip pain secondary to mechanical GLF She has sustained a displaced subcapital fracture of the Left femoral neck. Unstable injury that will need operative stabilization. I have recommended hemiarthroplasty Left hip. I discussed the injury and treatment plan with the patient in detail. All of her questions have been answered to her satisfaction. She has given informed written consent to proceed as planned. Need to continue to hold Eliquis in preparation for surgery. Will plan for surgery tomorrow morning, >24hrs after her last dose of Eliquis. Hospitalist for medical management. NPO after MN tonight. Anticipate > 2 MN hospital stay Pt will likely need rehab at time of d/c Clinical Quality Measures DVT/VTE Risk/Contraindication: Risk Factor Score Per Nursin RFS Level Per Nursing on Admit: 4+=Very High GUERO BROWN DO Nov 09, 2017 12:01
[2017-11-09 12:09] LABS: BILIRUBIN,URINE NEGATIVE (NEGATIVE); CLARITY,URINE SLIGHTLY CLOUDY; COLOR,URINE YELLOW; GLUCOSE, URINE (UA) NEGATIVE (NEGATIVE); KETONES,URINE NEGATIVE (NEGATIVE); LEUKOCYTE ESTERASE ,URINE 2+ (NEGATIVE); NITRITE,URINE NEGATIVE (NEGATIVE); PH,URINE 7 (5-9); PROTEIN,URINE 1+ (NEGATIVE); UROBILINOGEN,URINE NORMAL (NORMAL)
[2017-11-09 12:44] LABS: BACTERIA,URINE NEGATIVE /HPF; WBC,URINE 25-50 /HPF
--- NOTE | 2017-11-09 14:49 | Diagnostic Imaging Report ---
EXAMINATION: Left knee at 1:43 PM. INDICATION: Fell, knee pain. TECHNIQUE: Three views of the left knee were obtained. FINDINGS: The previous left knee exam of 03/13/2009 noted a comminuted displaced fracture of the mid body of the patella. This injury was subsequently repaired on 03/14/2009 with orthopedic screws and fixation wires. In the interval since the prior exam, the orthopedic hardware has been removed. There is a broad fracture extending through the body of the patella. The lateral view indicates that there is approximately 1.3 cm of diastasis between the main fracture fragments. There also appears to be a 1.4 x 2.4 cm comminuted fracture fragment overlying the main fracture fragments on the lateral view. I suspect this is along the medial aspect of the patella. No other fracture or acute bony abnormality is identified. There is no sign of a joint effusion or of lipohemarthrosis. There is nearly as much soft tissue edema along the anterior aspect of the patella as noted on the prior exam. IMPRESSION: 1. There does appear to have been a recurrent fracture of the mid body of the patella. If further evaluation of the injury to the patella is desired, then CT would be recommended. 2. There is no acute bony abnormality noted otherwise. 3. The results were discussed with Dr. Piedad Rao. Dictated by: Dictated on workstation # [id number]
[2017-11-09 16:00] VITALS: BP 158/57
[2017-11-09 20:00] VITALS: BP 193/91
[2017-11-09] MEDS: DOCUSATE SODIUM 100 MG (COLACE) CAP PO SCH (20:03)
[2017-11-09] MEDS: SIMvastatin 20 MG (ZOCOR) TAB PO SCH (20:03)
[2017-11-10] VITALS: BP 168/78
[2017-11-10] MEDS: fentaNYL INJECTION 100 MCG/2 ML AMP IV PRN ×3 (02:51→19:33)
[2017-11-10 04:00] VITALS: BP 173/80
[2017-11-10 06:56] LABS: BASOPHILS # (AUTO) 0.1 10^3/uL (0.0-0.1); BASOPHILS % (AUTO) 0 % (0-10); EOSINOPHILS # (AUTO) 0.1 10^3/uL (0.0-0.3); EOSINOPHILS % (AUTO) 1 % (0-10); HEMATOCRIT 39 % (35-52); HEMOGLOBIN 13.5 G/DL (11.5-16.0); LYMPHOCYTES # (AUTO) 2.4 X 10^3 (1.0-4.0); LYMPHOCYTES % (AUTO) 19 % (12-44); MEAN CORPUSCULAR HEMOGLOBIN 33 PG (25-34); MEAN CORPUSCULAR HGB CONC 35 G/DL (32-36); MEAN CORPUSCULAR VOLUME 93 FL (80-99); MEAN PLATELET VOLUME 10.4 FL (7.4-10.4); MONOCYTES # (AUTO) 1.2 X 10^3 (0.0-1.0); MONOCYTES % (AUTO) 9 % (0-12); NEUTROPHILS # (AUTO) 8.8 X 10^3 (1.8-7.8); NEUTROPHILS % (AUTO) 70 % (42-75); PLATELET COUNT 205 10^3/uL (130-400); RED BLOOD COUNT 4.15 10^6/uL (4.35-5.85); RED CELL DISTRIBUTION WIDTH 12.1 % (10.0-14.5); WHITE BLOOD COUNT 12.6 10^3/uL (4.3-11.0)
[2017-11-10] MEDS ORDERED: LACTATED RINGERS 1,000 ML IV ONE (07:12)
[2017-11-10] MEDS ORDERED: MIDAZOLAM 2 MG/2 ML (VERSED) VIAL ONE (07:12)
[2017-11-10] MEDS ORDERED: proPOfol 200 MG/20 ML (DIPRIVAN) VIAL IV ONE (07:12)
[2017-11-10] MEDS ORDERED: SUCCINYLCHOLINE INJ 100 MG/5 ML SYR ONE (07:12)
[2017-11-10] MEDS ORDERED: fentaNYL INJECTION 100 MCG/2 ML AMP ONE (07:12)
[2017-11-10] MEDS ORDERED: SEVOFLURANE (ULTANE) 15 ML INHAL SOLN ONE ×3 (07:12→10:11)
[2017-11-10] MEDS ORDERED: ONDANSETRON 4 MG/2 ML (SDV) Z0FRAN ONE (07:12)
[2017-11-10] MEDS ORDERED: LIDOCAINE PF 2% 5 ML (XYLOCAINE) VIAL ONE (07:12)
[2017-11-10 07:17] LABS: BUN/CREATININE RATIO 16; CALCIUM 9.1 MG/DL (8.5-10.1); CARBON DIOXIDE 23 MMOL/L (21-32); CHLORIDE 98 MMOL/L (98-107); CREATININE SERUM 0.76 MG/DL (0.60-1.30); GFR ESTIMATED > 60; GLUCOSE 117 MG/DL (70-105); POTASSIUM 4.3 MMOL/L (3.6-5.0); SODIUM 133 MMOL/L (135-145)
[2017-11-10] MEDS ORDERED: GENTAMICIN 40 MG/ML 2 ML INJ SDV ONE (07:17)
[2017-11-10] MEDS: LACTATED RINGERS 1,000 ML IV PRN ×2 (07:40→09:15)
[2017-11-10 08:00] VITALS: BP 158/57
[2017-11-10] MEDS ORDERED: ceFAZolin 1,000 MG (ANCEF) VIAL IVP ONE (08:00)
[2017-11-10] MEDS ORDERED: ROCURONIUM 50 MG/5 ML (ZEMURON) VIAL IV ONE (08:22)
[2017-11-10] MEDS ORDERED: ceFAZolin 1,000 MG (ANCEF) VIAL ONE (08:42)
--- NOTE | 2017-11-10 09:39 | Progress Note-Post Operative ---
Post-Operative Progess Note Surgeon (s)/Fruit Raiser (s) Surgeon GUERO BROWN DO Fruit Raiser: Arslan Brown PA-C Pre-Operative Diagnosis Displaced subcapital fracture Left femoral neck Post-Operative Diagnosis Same Procedure & Operative Findings Date of Procedure 11/10/17 Procedure Performed/Findings Uncemented bipolar hemiarthroplasty Left hip Anesthesia Type General Estimated Blood Loss Estimated blood loss (mL): 50 mL Specimens/Packing Specimens Removed None GUERO BROWN DO Nov 10, 2017 09:39
[2017-11-10] MEDS ORDERED: ONDANSETRON 4 MG/2 ML (SDV) Z0FRAN IVP PRN (10:15)
[2017-11-10] MEDS ORDERED: MEPERIDINE (DEMEROL) INJ 50 MG/ML IVP PRN (10:15)
[2017-11-10] MEDS ORDERED: fentaNYL INJECTION 100 MCG/2 ML AMP IVP PRN (10:15)
--- NOTE | 2017-11-10 10:44 | Diagnostic Imaging Report ---
INDICATION: Left hip pain. FINDINGS: AP view pelvis shows postop changes from bilateral hip arthroplasties. The prosthesis appear to be in good position with no evidence for loosening. Alignment is normal. There is no acute fracture seen. IMPRESSION: Postsurgical changes from bilateral hip arthroplasty. No acute abnormality is seen. Dictated by: Dictated on workstation # [id number]
[2017-11-10 12:00] VITALS: BP 142/64
[2017-11-10] MEDS: ALPRAZolam 1 MG (XANAX) TAB PO SCH ×3 (12:29→19:37)
[2017-11-10] MEDS: meTOprolol TARTRATE 25 MG (LOPRESSOR) TABLET PO SCH ×2 (12:29→19:34)
[2017-11-10] MEDS: buPROPion SR 150 MG (WELLBUTRIN SR) TAB PO SCH ×2 (12:29→19:33)
[2017-11-10] MEDS: FLECAINIDE 100 MG (TAMBOCOR) TAB PO SCH (12:29)
[2017-11-10] MEDS: NS IV 1000 ML 1,000 ML IV SCH ×2 (12:30→19:46)
[2017-11-10] MEDS: LEVOTHYROXINE 25 MCG (LEVOTHROID) TAB PO SCH (12:30)
[2017-11-10] MEDS: FAMOTIDINE 20MG/2ML IV (PEPCID) IVP SCH (12:30)
[2017-11-10] MEDS: PANTOPRAZOLE 20 MG TABLET (PROTONIX) PO SCH (12:30)
--- NOTE | 2017-11-10 12:44 | OPERATIVE REPORT ---
DATE OF SERVICE: 11/10/2017 PREOPERATIVE DIAGNOSIS: Displaced subcapital fracture of left femoral neck. POSTOPERATIVE DIAGNOSIS: Displaced subcapital fracture of left femoral neck. ATTENDING SURGEON: Dr. Guero Brown. FLATBED PRESS OPERATOR: Arslan Brown PA-C; MrBrian Brown's assistance was required secondary to the complexity of the case, to hold the necessary retractors, and to increase the efficiency and efficacy of the case. ANESTHESIA: General endotracheal. ESTIMATED BLOOD LOSS: 50 mL. COMPLICATIONS: None. SPECIMENS: None. DRAINS: None. IMPLANTS USED: 1. The DePuy Tri-Lock uncemented femoral stem size #5 with a standard offset. 2. The DePuy Self-Centering Bipolar Head size 48 mm in diameter. 3. The DePuy Articul/anmol Femoral Head size 28 mm in diameter with a +8.5 offset. PROCEDURE: Uncemented bipolar hemiarthroplasty, left hip. BRIEF HISTORY AND INDICATIONS: The patient is a very pleasant 77-year-old female who sustained a mechanical fall from ground level, landing onto her left hip. She subsequently had severe left hip pain and an inability to ambulate or bear weight on her left leg. As such, she presented to the [facility] emergency room for evaluation and treatment. Upon presentation, plain radiographs of the patient's left hip demonstrated a displaced femoral neck fracture. Orthopedic services were consulted for definitive management of her injury. Preoperatively, I discussed the patient's treatment options in detail, which included a total hip arthroplasty versus bipolar hemiarthroplasty. The detailed discussion included the risks, benefits, potential complications, expected outcomes and treatment alternatives in detail. Risks that were involved included bleeding, infection, damage to surrounding tissues, mechanical failure of the hardware, and potential need for secondary surgical procedures. Preoperatively, the patient's left lower extremity was otherwise stable. She had no motor or sensory deficits or open wounds and her left lower extremity was well perfused. After all of the patient's questions were answered to her satisfaction, she gave informed written consent to proceed as planned. PROCEDURE NOTE: After correctly identifying the patient as Ms. Eliz Dorado in the preoperative holding area and after her left hip was appropriately marked. She was transferred to the operating room. Once in the operating room, she had successful induction of general endotracheal anesthesia. Then, she was subsequently transferred to OR table and placed in the lateral recumbent position with left hip up, right hip down. The patient was secured in the lateral recumbent position with well padded hip positioners. She had a soft axillary roll placed on the right-sided chest wall. All bony prominences were meticulously padded. The left leg was then prepped and draped in the routine sterile fashion. Prior to beginning the case, we completed an operating room timeout with all parties involved in the case in agreement and verified appropriate infusion of prophylactic antibiotics. Using a 10 blade scalpel, I made my incision for the direct lateral approach directly over the lateral aspect of the hip centered on the greater trochanter. After incising through the skin and subcutaneous tissue, Bovie cautery was used to dissect through the fascia of the IT band and the gluteus cassidy. The gluteus medius was then split it with blunt dissection at the division between anterior 1/3 and posterior 2/3s and then retracted to give me access through the fascia of the gluteus minimus. The gluteus minimus fascia was then incised with Bovie cautery and this incision was extended distally releasing the insertion of the gluteus medius off the anterolateral aspect of the proximal femur. At this point, the femur was externally rotated to deliver the subcapital femoral neck fracture into the wound. I then made a standard femoral neck osteotomy approximately one fingerbreadth proximal to the lesser trochanter with an oscillating bone saw. We then removed the femoral head from the acetabulum, which was measured to be approximately 48 mm. I did inspect the articular cartilage of the acetabulum, which did not have significant damage. The wound was then irrigated with sterile saline and then I trialed for the size of the bipolar head with a 48 mm diameter trial and this fit quite nicely, so we decided to use that for the final implant. I then began preparing the proximal femur for the uncemented femoral stem and this was completed with the broaching system from the [employer] bipolar hip set. I was getting a good fit and fill with a size #5 broaching, so decided to go with #5 for the final implant size. The final uncemented #5 stem was then implanted into the proximal femur with light taps of the mallet to the appropriate depth, instability of the stem was confirmed prior to proceeding. We then trialed the head sizes off of the primary stem and the 48 mm head with the +8.5 offset gave us the best stability and recreated the leg lengths quite well, so we decided to go with those for the final implants. Final bipolar head was then inserted onto the trunnion of the femoral stem and secured with light taps of the mallet. The hip was then reduced without complications and then final range of motion testing confirmed adequate stability of the prosthesis and the leg lengths had been recreated quite well. The wound was then irrigated with copious amounts of sterile saline. This was followed by standard closure. Closure was completed by repairing the hip capsule and fascia of the gluteus minimus with #1 Vicryl, the insertion of the gluteus medius on the lateral aspect of the proximal femur was repaired with #5 Ethibond through bone tunnels placed with a drill through the proximal femur. IT band was then repaired with #1 Vicryl, 2-0 Vicryl for the subcutaneous tissue, and earline for the skin. The patient then had a sterile dressing applied and then was awakened and extubated in the operating room without complications. She was then transferred to the PACU in stable condition. She tolerated the procedure well without complications. All counts were correct at the end of the case. Job ID: [id number] DocumentID: [id number] Dictated Date: 11/10/2017 09:51:42 Agent Date: 11/10/2017 12:44:14 Dictated By: GUERO BROWN
--- NOTE | 2017-11-10 14:07 | Physical Therapy Progress Note ---
Therapy Progress Note PT to begin in a.m. per Dr. Rao. TRACE GRAHAM PT Nov 10, 2017 14:07
[2017-11-10] MEDS: ceFAZolin 2 GM/50 ML NS 50 ML IV SCH (15:42)
[2017-11-10 16:00] VITALS: BP 102/60
--- NOTE | 2017-11-10 17:16 | Progress Note (SOAP) ---
Subjective Subjective/Events-last exam Patient seen after surgery. States that her pain in her hip is improved if she is not trying to move. States that she has a sore throat but is doing well on the CLD. Review of Systems Date Seen by Provider: Nov 10, 2017 Time Seen by Provider: 13:25 General: No Chills Pulmonary: Dyspnea, No Cough Cardiovascular: No: Chest Pain, Palpitations Gastrointestinal: Nausea, No: Vomiting Objective Exam Last Set of Vital Signs Vital Signs Date Time Temp Pulse Resp B/P (MAP) Pulse Ox O2 Delivery O2 Flow Rate FiO2 11/10/17 15:44 Nasal Cannula 2.00 11/10/17 12:00 97.6 66 18 142/64 (90) 90 Capillary Refill : Less Than 3 SecondsLess Than 3 Seconds I&O Intake and Output 11/10/17 00:00 Intake Total 1197 ml Output Total 1400 ml Balance -203 ml Intake Oral 1197 ml Output Urine Total 1400 ml Daily Weight Change No General: Alert, Oriented X3, Cooperative, No Acute Distress Lungs: Clear to Auscultation, Normal Air Movement Heart: Regular Rate, No Murmurs Abdomen: Normal Bowel Sounds, Soft, No Tenderness, No Masses Extremities: No Edema, No Tenderness/Swelling Results/Procedures Lab Laboratory Tests 11/10/17 06:30: White Blood Count 12.6H, Red Blood Count 4.15L, Hemoglobin 13.5, Hematocrit 39, Mean Corpuscular Volume 93, Mean Corpuscular Hemoglobin 33, Mean Corpuscular Hemoglobin Concent 35, Red Cell Distribution Width 12.1, Platelet Count 205, Mean Platelet Volume 10.4, Neutrophils (%) (Auto) 70, Lymphocytes (%) (Auto) 19 , Monocytes (%) (Auto) 9, Eosinophils (%) (Auto) 1, Basophils (%) (Auto) 0, Neutrophils # (Auto) 8.8H, Lymphocytes # (Auto) 2.4, Monocytes # (Auto) 1.2H, Eosinophils # (Auto) 0.1, Basophils # (Auto) 0.1, Sodium Level 133L, Potassium Level 4.3, Chloride Level 98, Carbon Dioxide Level 23, Anion Gap 12, Blood Urea Nitrogen 12, Creatinine 0.76, Estimat Glomerular Filtration Rate > 60, BUN/ Creatinine Ratio 16, Glucose Level 117H, Calcium Level 9.1 Microbiology 1/17/18 Urine Culture - Preliminary, Resulted NO GROWTH Radiology Date of Exam:11/09/17 PELVIS WITH LEFT HIP 2-3 VIEWS EXAMINATION: Pelvis with left hip. INDICATION: Injury hip pain Single AP view of the pelvis and AP and lateral views of the left hip were obtained. There is an impacted essentially nondisplaced fracture of the left femoral neck. No other fracture or acute bony abnormality is noted. 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 The prosthetic component is seen to be in good position. There is an oval calcification overlying the right ilium. This finding was also present on the prior exam of 03/17/2007, has not changed. The soft tissues are unremarkable. IMPRESSION: There is impacted fracture left femoral neck. No other acute bony abnormality is noted. Date of Exam:11/09/17 CHEST 1 VIEW, AP/PA ONLY INDICATION: Fall. Left hip pain. COMPARISON: 08/23/2016. FINDINGS: Portable chest shows the lungs to be well aerated. There are no infiltrates or masses. Heart is not enlarged. There is no pulmonary edema. No hilar adenopathy. No pneumothorax or pleural effusion. IMPRESSION: Normal portable chest. Assessment/Plan Assessment/Plan Plan 77 yo F admitted for Acute left hip fracture Left hip fracture s/p ORIF today - Management per Ortho - Hgb normal, VS stable - Holding anticoagulation for surgery, will restart after surgery when ok with ortho - IRF eval tomorrow - Start PO pain medication with bowel meds Left Knee Pain: Acute vs old fracture of patella Dyspnea likely 2/2 atelectasis - Encourage IS, titrate oxygen as tolerated HTN: - Will continue to monitor FEN: Advance diet as tolerated to Reg DVT PPX: Eliquis Dispo: Continue admission, discussed IRF with patient today Clinical Quality Measures DVT/VTE Risk/Contraindication: Risk Factor Score Per Nursin RFS Level Per Nursing on Admit: 4+=Very High BIN KITCHEN MD Nov 10, 2017 17:16
[2017-11-10] MEDS: DOCUSATE SODIUM 100 MG (COLACE) CAP PO SCH (19:34)
[2017-11-10] MEDS: SIMvastatin 20 MG (ZOCOR) TAB PO SCH (19:34)
[2017-11-10 20:00] VITALS: BP 148/71
[2017-11-11] VITALS (8 sets, daily range): BP systolic 90–147; BP diastolic 49–79
[2017-11-11] MEDS: ceFAZolin 2 GM/50 ML NS 50 ML IV SCH ×2 (00:13→08:44)
[2017-11-11] MEDS: HYDROcodone/APAP 5 MG/325 MG (LORTAB) TAB PO PRN ×3 (00:14→16:22)
[2017-11-11] MEDS: NS IV 1000 ML 1,000 ML IV SCH ×3 (00:19→17:00)
[2017-11-11] MEDS: fentaNYL INJECTION 100 MCG/2 ML AMP IV PRN (05:23)
[2017-11-11] MEDS: LEVOTHYROXINE 25 MCG (LEVOTHROID) TAB PO SCH (06:06)
[2017-11-11] MEDS: PANTOPRAZOLE 20 MG TABLET (PROTONIX) PO SCH (06:06)
[2017-11-11 07:03] LABS: HEMOGLOBIN 10.6 G/DL (11.5-16.0); MEAN PLATELET VOLUME 10.3 FL (7.4-10.4); RED BLOOD COUNT 3.29 10^6/uL (4.35-5.85); WHITE BLOOD COUNT 12.5 10^3/uL (4.3-11.0)
[2017-11-11 07:24] LABS: ALANINE AMINOTRANSFERASE 12 U/L (0-55); ALBUMIN 3.1 GM/DL (3.2-4.5); ALKALINE PHOSPHATASE 59 U/L (40-136); BILIRUBIN,TOTAL 0.6 MG/DL (0.1-1.0); BUN/CREATININE RATIO 16; CALCIUM 8.2 MG/DL (8.5-10.1); CARBON DIOXIDE 23 MMOL/L (21-32); CHLORIDE 101 MMOL/L (98-107); CREATININE SERUM 0.74 MG/DL (0.60-1.30); GFR ESTIMATED > 60; GLUCOSE 101 MG/DL (70-105); SODIUM 133 MMOL/L (135-145)
[2017-11-11] MEDS: DOCUSATE SODIUM 100 MG (COLACE) CAP PO SCH ×4 (07:55→21:41)
[2017-11-11] MEDS: ALPRAZolam 1 MG (XANAX) TAB PO SCH ×3 (08:32→21:39)
[2017-11-11] MEDS: buPROPion SR 150 MG (WELLBUTRIN SR) TAB PO SCH ×2 (08:32→21:40)
[2017-11-11] MEDS: FAMOTIDINE 20MG/2ML IV (PEPCID) IVP SCH (08:32)
[2017-11-11] MEDS: APIXABAN 5 MG (ELIQUIS) TABLET PO SCH ×2 (08:32→21:41)
[2017-11-11] MEDS: FLECAINIDE 100 MG (TAMBOCOR) TAB PO SCH (08:32)
[2017-11-11] MEDS: meTOprolol TARTRATE 25 MG (LOPRESSOR) TABLET PO SCH ×2 (08:33→21:38)
--- NOTE | 2017-11-11 11:39 | Progress Note (SOAP) ---
Subjective Subjective/Events-last exam Patient sitting in bed this AM leaning to the right side. Needed help sitting up in bed. Denies any pain. having some shortness of breath. Review of Systems Date Seen by Provider: Nov 11, 2017 Time Seen by Provider: 11:00 Pulmonary: Dyspnea, No Cough Cardiovascular: No: Chest Pain, Palpitations Gastrointestinal: Nausea, No: Vomiting, Abdominal Pain Objective Exam Last Set of Vital Signs Vital Signs Date Time Temp Pulse Resp B/P (MAP) Pulse Ox O2 Delivery O2 Flow Rate FiO2 11/11/17 11:13 95 11/11/17 08:38 Nasal Cannula 2.00 11/11/17 08:00 99.0 77 16 136/61 (86) Capillary Refill : Less Than 3 SecondsLess Than 3 Seconds I&O Intake and Output 11/11/17 00:00 Intake Total 1870 ml Output Total 1165 ml Balance 705 ml Intake Oral 870 ml IV Total 1000 ml Output Urine Total 1015 ml Estimated Blood Loss 150 ml General: Alert, Oriented X3, Cooperative, No Acute Distress HEENT: Mucous Memb Moist/[place] Lungs: Other (Diffuse crackles, No wheezing, normal work of breathing) Heart: Regular Rate, No Murmurs Abdomen: Normal Bowel Sounds, Soft, No Tenderness, No Masses Skin: No Rashes Results/Procedures Lab Laboratory Tests 11/11/17 06:45: White Blood Count 12.5H, Red Blood Count 3.29L, Hemoglobin 10.6#L, Hematocrit 31L, Mean Corpuscular Volume 94, Mean Corpuscular Hemoglobin 32, Mean Corpuscular Hemoglobin Concent 34, Red Cell Distribution Width 12.0, Platelet Count 141, Mean Platelet Volume 10.3, Sodium Level 133L, Potassium Level 4.0, Chloride Level 101, Carbon Dioxide Level 23, Anion Gap 9, Blood Urea Nitrogen 12 , Creatinine 0.74, Estimat Glomerular Filtration Rate > 60, BUN/Creatinine Ratio 16, Glucose Level 101, Calcium Level 8.2L, Total Bilirubin 0.6, Aspartate Amino Transf (AST/SGOT) 35H, Alanine Aminotransferase (ALT/SGPT) 12, Alkaline Phosphatase 59, Total Protein 6.0L, Albumin 3.1L Microbiology 11/09/17 MRSA Screen - Final, Complete MRSA not isolated 11/09/17 Urine Culture - Final, Complete NO GROWTH Radiology Date of Exam:11/09/17 PELVIS WITH LEFT HIP 2-3 VIEWS EXAMINATION: Pelvis with left hip. INDICATION: Injury hip pain Single AP view of the pelvis and AP and lateral views of the left hip were obtained. There is an impacted essentially nondisplaced fracture of the left femoral neck. No other fracture or acute bony abnormality is noted. 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 The prosthetic component is seen to be in good position. There is an oval calcification overlying the right ilium. This finding was also present on the prior exam of 03/17/2007, has not changed. The soft tissues are unremarkable. IMPRESSION: There is impacted fracture left femoral neck. No other acute bony abnormality is noted. Date of Exam:11/09/17 CHEST 1 VIEW, AP/PA ONLY INDICATION: Fall. Left hip pain. COMPARISON: 08/23/2016. FINDINGS: Portable chest shows the lungs to be well aerated. There are no infiltrates or masses. Heart is not enlarged. There is no pulmonary edema. No hilar adenopathy. No pneumothorax or pleural effusion. IMPRESSION: Normal portable chest. Assessment/Plan Assessment/Plan Plan 77 yo F admitted for Acute left hip fracture Left hip fracture s/p ORIF today - Management per Ortho - Hgb normal, VS stable - Resumed anti coagulation yesterday Left Knee Pain: Acute vs old fracture of patella Dyspnea likely 2/2 atelectasis - Encourage IS, titrate oxygen as tolerated - Spoke with PT today to get patient moving HTN: - Will continue to monitor FEN: Advance diet as tolerated to Reg DVT PPX: Eliquis Dispo: Continue admission, Patient has been accepted for IRF, will go on Tuesday Clinical Quality Measures DVT/VTE Risk/Contraindication: Risk Factor Score Per Nursin RFS Level Per Nursing on Admit: 4+=Very High BIN KITCHEN MD Nov 11, 2017 11:39
--- NOTE | 2017-11-11 11:58 | Physical Therapy Evaluation ---
PT Evaluation-General Medical Diagnosis Admission Date Nov 09, 2017 at 01:40 Medical Diagnosis: L hip hemiarthroplasty Onset Date: Nov 10, 2017 Therapy Diagnosis Therapy Diagnosis: Weakness, poor functional mobility and activity tolerance Height/Weight Height (Feet): 5 Height (Inches): 5.00 Weight (Pounds): 137 Weight (Ounces): 1.0 Precautions Precautions/Isolations: Fall Prevention, Standard Precautions, Pressure Ulcer Anterior hip precautions, no heel slides, no active/passive abduction, active/ passive IR Weight Bear Status Right Lower Extremity: Right Full Weight Bearing Left Lower Extremity: Left Weight Bearing/Tolerated Referral Physician: Jose Solo MD Reason for Referral: Evaluation/Treatment Medical History Pertinent Medical History: Atrial Fib, Hypothroidism Additional Medical History Anxiety, depression, bi-polar, hiatal hernia Surgery: appendectomy, breast, gall bladder, oophorectomy, tonsillectomy, orthopedic, tubal ligation Current History patient fell at home and had displaced subcapital fx of left femoral neck Reviewed History: Yes Social History Home: Single Level Current Living Status: Alone Entry Into Home: Stairs With Railing PT Steps Into Home: 20 PT Steps Inside Home: 0 Other Obstacles: Cat Pt lives in a four plex Prior/Core FIM Prior Level of Function Functional [place] Measure 0=Not Assessed/NA 4=Minimal Assistance 1=Total Assistance 5=Supervision or Setup 2=Maximal Assistance 6=Modified [place] 3=Moderate Assistance 7=Complete [place] Bed Mobility: 7 Transfers (B,C,W/C) (FIM): 7 Gait: 7 Locomotion: 7 Pt was not using equipment in the home, but was using a FWW in the community. PT Evaluation-Current Subjective Pt is laying in bed pre tx and agrees to PT. Pain in L hip is 7/10. Pain Numeric Pain Scale: 7 Location: Left Location Body Site: Hip Pt/Family Goals [place] at home Objective Patient Orientation: Person, Place, Situation, Mumbles Attachments: SCD's, IV ROM/Strength ROM Lower Extremities WNL on R, NT on L Strength Lower Extremities WNL on R, NT on L Neuromuscular (Tone, Coordination, Reflexes) NT Sensory Vision: Functional Hearing: Functional Sensation Right Lower Extremit: Intact Sensation Left Lower Extremity: Intact Sensation Lower Extremities Patient has no complaints of numbness or tingling in left leg. Transfers Functional [place] Measure 0=Not Assessed/NA 4=Minimal Assistance 1=Total Assistance 5=Supervision or Setup 2=Maximal Assistance 6=Modified [place] 3=Moderate Assistance 7=Complete [place] Transfers (B, C, W/C) (FIM): 1 Scootin Rollin Supine to/from Sit: 1 Sit to/from Stand: 1 bed t/f WC(FIM only if WC use): 1 Gait Mode of Locomotion: Walk Anticipated Mode of Locomotion: Walk Gait (FIM): 0 Distance (FIM): 0=does not occure Distance: 0 feet Wheelchair Training Wheelchair Distance (FIM): 0=does not occure Distance: 0 feet Stairs If not tested on admit;explain Pt not able to stand. Balance Sitting Static: Poor Sitting Dynamic: Poor Standing Static: Poor Standing Dynamic: Poor Treatment Ankle pumps: 10 x1 BLE LAQ: 10 x1 BLE Assessment/Needs Pt requires total assistance for bed mobility and transfers. Pt is not yet ambulating. Sensation intact symmetrically throughout BLE. Strength is WNL on the RLE and NT on the LLE due to recent surgery. Pt would benefit from PT services to address impairments mentioned. Rehab Potential: Fair Post Rehab Potential-Barriers: Cat living in home Equipment Needs FWW PT Short Term Goals Short Term Goals Time Frame: Nov 18, 2017 Transfers (B,C,W/C) (FIM): 3 Gait (FIM): 1 Distance (FIM): 1=up to 49 ft Gait Distance Comment: 10' Gait Level of Assist: 4 Gait Assistive Device: FWW Wheelchair distance (FIM): 6=197-84 ft PT Plan Problem List Problem List: Activity Tolerance, Functional Strength, Safety, Balance, Gait, Transfer, Bed Mobility, ROM Treatment/Plan Treatment Plan: Continue Plan of Care Treatment Plan: Bed Mobility, Education, Functional Activity Ashley, Functional Strength, Gait, Safety, Therapeutic Exercise, Transfers Treatment Duration: Nov 15, 2017 Frequency: 11 times per week Estimated Hrs Per Day: .25 hour per day (15-30') Patient and/or Family Agrees t: Yes Safety Risks/Education Patient Education: Transfer Techniques, Reviewed Precautions, Correct Positioning, Disease Process, Safety Issues Teaching Recipient: Patient Teaching Methods: Demonstration, Discussion Response to Teaching: Reinforcement Needed Discharge Recommendations Plan Pt will participate in a PT program with a focus on functional mobility and activity tolerance, bed mobility, gait and balance training, and LE strengthening in order to become independent at home. Therapy D/C Recommendations: Home w/ Family Support, Correction (TCU/NH) Time/GCodes Time In: 1125 Time Out: 1150 Total Billed Treatment Time: 25 Total Billed Treatment 1 visit 25 min MARY CAMPOVERDE PT Nov 11, 2017 11:58
--- NOTE | 2017-11-11 13:22 | Anesthesia-General Post-Op ---
General Patient Condition Mental Status/LOC: Same as Preop Cardiovascular: Satisfactory Nausea/Vomiting: Absent Respiratory: Satisfactory Pain: Controlled Complications: Absent Post Op Complications Complications None Follow Up Care/Instructions Patient Instructions None needed. Anesthesia/Patient Condition Patient Condition Patient is doing well, no complaints, stable vital signs, no apparent adverse anesthesia problems. BISI TOLBERT DO Nov 11, 2017 13:22
--- NOTE | 2017-11-11 13:24 | Progress Note (SOAP) ---
Subjective Date Seen by Provider: Nov 11, 2017 Time Seen by Provider: 13:20 Subjective/Events-last exam Pt ORIANA, A&O X3, pain controlled, no cp/sob, no overnight issues, no complaints. Objective Exam Vital Signs Date Time Temp Pulse Resp B/P (MAP) Pulse Ox O2 Delivery O2 Flow Rate FiO2 11/11/17 11:13 95 Room Air 11/11/17 11:13 95 11/11/17 08:38 Nasal Cannula 2.00 11/11/17 08:00 99.0 77 16 136/61 (86) 99 Nasal Cannula 2.00 11/11/17 04:00 98.5 73 18 125/60 (81) 98 Nasal Cannula 2.00 11/11/17 01:57 99.6 11/11/17 00:00 100.3 74 18 147/67 (93) 98 Nasal Cannula 2.00 11/10/17 21:08 Room Air 11/10/17 20:26 Nasal Cannula 2.00 11/10/17 20:00 100.5 77 16 148/71 (96) 99 Nasal Cannula 2.00 11/10/17 16:00 97.9 70 18 102/60 (74) 91 Nasal Cannula 2.00 11/10/17 15:44 Nasal Cannula 2.00 I & O 11/11/17 07:00 Intake Total 3220 ml Output Total 1090 ml Balance 2130 ml Capillary Refill : Less Than 3 SecondsLess Than 3 Seconds General Appearance: No Apparent Distress, WD/WN HEENT: PERRL/EOMI Neck: Supple Respiratory: No Accessory Muscle Use, No Respiratory Distress Cardiovascular: Irregularly Irregular Peripheral Pulses: 2+ Dorsalis Pedis (R), 2+ Left Dors-Pedis (L) Gastrointestinal: non tender, soft Extremity: Other (LLE: dressings c/d/i, compartments soft/compressible, motor/ sensation grossly intact, foot well perfused.) Neurologic/Psychiatric: Alert, Oriented x3, No Motor/Sensory Deficits, Normal 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, 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 Norm as Tested Skin: Normal Color, Warm/Dry Results Lab Laboratory Tests 11/11/17 06:45: White Blood Count 12.5H, Red Blood Count 3.29L, Hemoglobin 10.6#L, Hematocrit 31L, Mean Corpuscular Volume 94, Mean Corpuscular Hemoglobin 32, Mean Corpuscular Hemoglobin Concent 34, Red Cell Distribution Width 12.0, Platelet Count 141, Mean Platelet Volume 10.3, Sodium Level 133L, Potassium Level 4.0, Chloride Level 101, Carbon Dioxide Level 23, Anion Gap 9, Blood Urea Nitrogen 12 , Creatinine 0.74, Estimat Glomerular Filtration Rate > 60, BUN/Creatinine Ratio 16, Glucose Level 101, Calcium Level 8.2L, Total Bilirubin 0.6, Aspartate Amino Transf (AST/SGOT) 35H, Alanine Aminotransferase (ALT/SGPT) 12, Alkaline Phosphatase 59, Total Protein 6.0L, Albumin 3.1L Microbiology 11/09/17 MRSA Screen - Final, Complete MRSA not isolated 11/09/17 Urine Culture - Final, Complete NO GROWTH Assessment/Plan Assessment/Plan Assess & Plan/Chief Complaint 77 y/o female s/p Hemiarthroplasty Left Hip, POD #1 Acute post-op blood loss anemia: Hb at 10.6 today, VSS, asymptomatic, will monitor Orthopedically stable Continue PT/OT for mobilization OOB, anterior hip precautions Left hip, WBAT LLE Eliquis/SCDs for VTE Current pain control regimen Bowel regimen ISB D/C planning: anticipate need for inpatient rehab at time of d/c, likely in 1-2 days. Clinical Quality Measures DVT/VTE Risk/Contraindication: Risk Factor Score Per Nursin RFS Level Per Nursing on Admit: 4+=Very High GUERO BROWN DO Nov 11, 2017 13:24
--- NOTE | 2017-11-11 14:31 | Physical Therapy Daily Note ---
PT Daily Note-Current Subjective Pt is sitting in chair pre tx and complaints of pain in back due to arthritis and pain in L hip due to surgery. Pain Comment: No numerical value given Appearance Pt is laying in bed post tx with phone, remote and tray within reach. Mental Status Patient Orientation: Person Attachments: SCD's (Placed on after tx), IV Transfers Functional [place] Measure 0=Not Assessed/NA 4=Minimal Assistance 1=Total Assistance 5=Supervision or Setup 2=Maximal Assistance 6=Modified [place] 3=Moderate Assistance 7=Complete IndependenceIRFPAI Quality Coding Scale 6 Independent with activity with or without an assistive device 5 Patient requires set up or clean up by helper. Patient completes activity by themselves 4 Supervision or touching assist (CGA). [place] provide cues , steadying assist 3 The helper provides less than half the effort to complete the activity 2 The helper provides more than half the effort to complete the activity 1 Dependent. The helper does all the effort to complete an activity 7 Patient refused to complete or attempt activity 9 The patient did not perform the activity before the current illness or injury 88 Not attempted due to Medical conditions or safety concerns Transfers (B, C, W/C) (FIM): 1 Scootin Rollin Supine to/from Sit: 1 Sit to/from Stand: 1 Bed to/from Chair: 1 Pt requires total A x2 for all transfers. Weight Bearing Right Lower Extremity: Right Full Weight Bearing Left Lower Extremity: Left Weight Bearing/Tolerated Gait Training Distance (FIM): 0=does not occure Wheelchair Training Wheelchair Distance: 0=does not occure Treatments Pt participated in bed mobility. Assessment Current Status: Fair Progress Pt required total A for all transfers and bed mobility. Pt favors leaning to the right side while sitting in chair. PT Short Term Goals Short Term Goals Time Frame: Nov 18, 2017 Transfers (B,C,W/C) (FIM): 3 Gait (FIM): 1 Distance (FIM): 1=up to 49 ft Gait Distance Comment: 10' Gait Level of Assist: 4 Gait Assistive Device: FWW Wheelchair distance (FIM): 2=514-39 ft PT Plan Problem List Problem List: Activity Tolerance, Functional Strength, Safety, Balance, Gait, Transfer, Bed Mobility, ROM Treatment/Plan Treatment Plan: Continue Plan of Care Treatment Plan: Bed Mobility, Education, Functional Activity Ashley, Functional Strength, Gait, Safety, Therapeutic Exercise, Transfers Treatment Duration: Nov 15, 2017 Frequency: 11 times per week Estimated Hrs Per Day: .25 hour per day (15-30') Patient and/or Family Agrees t: Yes Safety Risks/Education Patient Education: Transfer Techniques, Correct Positioning Teaching Recipient: Patient Response to Teaching: Return Demonstration, Reinforcement Needed Time/GCodes Time In: 1416 Time Out: 1430 Total Billed Treatment Time: 10 Total Billed Treatment 1 visit 14 min MARY GOLDEN PT Nov 11, 2017 14:31
[2017-11-11] MEDS: IBUPROFEN 600 MG (MOTRIN) TAB PO PRN (14:39)
--- NOTE | 2017-11-11 15:16 | Occupational Therapy Eval ---
OT Evaluation-General/PLF Medical Diagnosis Admission Date Nov 09, 2017 at 01:40 Medical Diagnosis: L hip hemiarthroplasty Onset Date: Nov 10, 2017 Therapy Diagnosis Therapy Diagnosis: decr self care, weakness, decr act tolerance, decr funct mobility Height/Weight Height (Feet): 5 Height (Inches): 5.00 Weight (Pounds): 137 Weight (Ounces): 1.0 Precautions Precautions/Isolations: Fall Prevention, Standard Precautions, Pressure Ulcer Safety Interventions: Bed Exit Alarm, Reorient-Attempt, Reorient-PRN Weight Bear Status Weight Bearing Restriction: Weight Bearing/Tolerated Location Restriction: L LE WBS (Ord/Comment): Anterior hip precautions, no heel slides, no active/passive abduction, acti Referral Physician: Jose Solo MD Referral Reason: Evaluation/Treatment Medical History Pertinent Medical History: Atrial Fib, Hypothroidism Additional Medical History Anxiety, depression. Constipation. Bipolar. Hiatal hernia. Pt reported old R hip surgery. Current History Pt reported her ankle twisted and she fell on her L hip. Hemiarthroplasty done . Also reported L knee pain Social History Home: Apartment ([facility]) Current Living Status: Alone Entry Into Home: Stairs With Railing ADL-Prior Level of Function ADL PLOF Comments Pt reported that she was able to manage her basic self care needs prior to fall. 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 Pt reported pain 10/10 in her back but did not describe it. Pain behaviors not observed. Appearance Alert, cooperative, shivering/quivering in lower face Mental Status/Objective Attachments: Colon Catheter, IV, Oxygen, Ventilator Current Glasses/Contacts: Yes Hearing Aids: No Dentures/Partials: Yes Upper Extremity ROM Grossly WFL bilat Upper Extremity Strength grossly 4/5 bilat Pt reported that she is ambidextrous ADL-Treatment ADL-Current Pt required dependant transfer with two people with PT this morning. Was able to get a drink. Functional [place] Measure 0=Not Assessed/NA 4=Minimal Assistance 1=Total Assistance 5=Supervision or Setup 2=Maximal Assistance 6=Modified [place] 3=Moderate Assistance 7=Complete IndependenceIRFPAI Quality Coding Scale 6 Independent with activity with or without an assistive device 5 Patient requires set up or clean up by helper. Patient completes activity by themselves 4 Supervision or touching assist (CGA). [place] provide cues , steadying assist 3 The helper provides less than half the effort to complete the activity 2 The helper provides more than half the effort to complete the activity 1 Dependent. The helper does all the effort to complete an activity 7 Patient refused to complete or attempt activity 9 The patient did not perform the activity before the current illness or injury 88 Not attempted due to Medical conditions or safety concerns Education OT Patient Education: Purpose of tx/functional activities, Rehab process Teaching Recipient: Patient Teaching Methods: Discussion Response to Teaching: Verbalize Understanding OT Care Home Goals Care Home Goals Time Frame: Dec 02, 2017 Eating (FIM): 6 Grooming(FIM): 6 Bathing(FIM): 6 Upper Body Dressing(FIM): 6 Lower Body Dressing(FIM): 6 Toileting(FIM): 6 Toilet/Commode Transfer(FIM): 6 Tub Transfer(FIM): 6 Shower Transfer(FIM): 6 Additional Goals: 2-Verbalize Understanding, 3-ImproveStrength/Ashley 1=Demonstrate adherence to instructed precautions during ADL tasks. 2=Patient will verbalize/demonstrate understanding of assistive devices/ modifications for ADL. 3=Patient will improve strength/tolerance for activity to enable patient to perform ADL's. OT Education/Plan Problem List/Assessment Assessment: Decreased Activ Tolerance, Decreased Safety Aware, Decreased UE Strength, Dependent Transfers, Impaired Self-Care Skills Pt would benefit from skilled OT to increase her independence in basic self care and to decrease caregiver burden. Discharge Recommendations Plan/Recommendations: Continue POC Treatment Plan/Plan of Care Treatment,Training & Education: Yes Patient would benefit from OT for education, treatment and training to promote independence in ADL's, mobility, safety and/or upper extremity function for ADL' s. Plan of Care: ADL Retraining, Functional Mobility, UE Funct Exercise/Act Treatment Duration: Dec 02, 2017 Frequency: 5 times per week Estimated Hrs Per Day: .5 hour per day Agreement: Yes Rehab Potential: Fair Time/GCodes Start Time: 14:02 Stop Time: 14:16 Total Time Billed (hr/min): 14 Billed Treatment Time visit, 14 minutes evaluation moderate intensity KLUSENER,PAUL OT Nov 11, 2017 15:16
[2017-11-11] MEDS: SIMvastatin 20 MG (ZOCOR) TAB PO SCH (21:41)
[2017-11-12] VITALS: BP 109/53
[2017-11-12] MEDS: NS IV 1000 ML 1,000 ML IV SCH ×4 (01:16→22:23)
[2017-11-12 04:00] VITALS: BP 129/60
[2017-11-12] MEDS: PANTOPRAZOLE 20 MG TABLET (PROTONIX) PO SCH (04:42)
[2017-11-12] MEDS: IBUPROFEN 600 MG (MOTRIN) TAB PO PRN ×2 (04:42→19:40)
[2017-11-12] MEDS: LEVOTHYROXINE 25 MCG (LEVOTHROID) TAB PO SCH (04:42)
[2017-11-12 05:05] LABS: HEMOGLOBIN 9.3 G/DL (11.5-16.0); MEAN PLATELET VOLUME 10.6 FL (7.4-10.4); RED BLOOD COUNT 2.84 10^6/uL (4.35-5.85); RED CELL DISTRIBUTION WIDTH 12.2 % (10.0-14.5); WHITE BLOOD COUNT 10.7 10^3/uL (4.3-11.0)
[2017-11-12 08:00] VITALS: BP 98/61
[2017-11-12] MEDS: FLECAINIDE 100 MG (TAMBOCOR) TAB PO SCH (08:25)
[2017-11-12] MEDS: buPROPion SR 150 MG (WELLBUTRIN SR) TAB PO SCH ×2 (08:26→20:51)
[2017-11-12] MEDS: ALPRAZolam 1 MG (XANAX) TAB PO SCH ×4 (08:26→22:22)
[2017-11-12] MEDS: meTOprolol TARTRATE 25 MG (LOPRESSOR) TABLET PO SCH ×2 (08:26→20:51)
[2017-11-12] MEDS: DOCUSATE SODIUM 100 MG (COLACE) CAP PO SCH ×3 (08:26→20:51)
[2017-11-12] MEDS: FAMOTIDINE 20MG/2ML IV (PEPCID) IVP SCH (08:26)
[2017-11-12] MEDS: APIXABAN 5 MG (ELIQUIS) TABLET PO SCH ×2 (08:26→20:51)
--- NOTE | 2017-11-12 08:52 | Physical Therapy Daily Note ---
PT Daily Note-Current Subjective Pt notes that she is feeling very "loopy and weak." Mental Status Patient Orientation: Person, Place, Time Attachments: Oxygen, IV Transfers Functional [place] Measure 0=Not Assessed/NA 4=Minimal Assistance 1=Total Assistance 5=Supervision or Setup 2=Maximal Assistance 6=Modified [place] 3=Moderate Assistance 7=Complete IndependenceIRFPAI Quality Coding Scale 6 Independent with activity with or without an assistive device 5 Patient requires set up or clean up by helper. Patient completes activity by themselves 4 Supervision or touching assist (CGA). [place] provide cues , steadying assist 3 The helper provides less than half the effort to complete the activity 2 The helper provides more than half the effort to complete the activity 1 Dependent. The helper does all the effort to complete an activity 7 Patient refused to complete or attempt activity 9 The patient did not perform the activity before the current illness or injury 88 Not attempted due to Medical conditions or safety concerns Transfers (B, C, W/C) (FIM): 2 Scootin Rollin Supine to/from Sit: 2 Pt sat edge of bed for 3 minutes without assistance. She was not able to stand without total assist due to (L) LE weakness. Weight Bearing Right Lower Extremity: Right Full Weight Bearing Left Lower Extremity: Left Weight Bearing/Tolerated Gait Training Distance (FIM): 0=does not occure Exercises Supine Ex: Ankle pumps, Quad Set, Glut sets, Short Arc Quads Supine Reps: 20 Seated Therapy Exercises: Long arc quads Seated Reps: 20 Assessment Current Status: Poor Progress Pt is currently requiring maximum assist for all aspects of mobility. She was only able to perform ankle pumps (I). PT Short Term Goals Short Term Goals Time Frame: Nov 18, 2017 Gait (FIM): 1 Distance (FIM): 1=up to 49 ft Gait Distance Comment: 10' Gait Level of Assist: 4 Gait Assistive Device: FWW Wheelchair distance (FIM): 8=477-22 ft PT Plan Treatment/Plan Treatment Plan: Continue Plan of Care Treatment Plan: Bed Mobility, Education, Functional Activity Ashley, Functional Strength, Gait, Safety, Therapeutic Exercise, Transfers Treatment Duration: Nov 15, 2017 Frequency: 11 times per week Estimated Hrs Per Day: .25 hour per day (15-30') Patient and/or Family Agrees t: Yes Time/GCodes Time In: 829 Time Out: 0845 Total Billed Treatment Time: 15 Total Billed Treatment 1, ex 15 YOUNG CARR PT Nov 12, 2017 08:52
--- NOTE | 2017-11-12 08:58 | Progress Note (SOAP) ---
Subjective Subjective/Events-last exam Patient lying comfortably in bed. She does have a cough. She does report some discomfort over the left lower hip region or her pending occurred to the hip. Review of Systems Date Seen by Provider: Nov 12, 2017 Time Seen by Provider: 07:15 Objective Exam Last Set of Vital Signs Vital Signs Date Time Temp Pulse Resp B/P (MAP) Pulse Ox O2 Delivery O2 Flow Rate FiO2 11/12/17 07:44 Nasal Cannula 2.00 11/12/17 04:00 100.5 86 18 129/60 (83) 98 Capillary Refill : Less Than 3 SecondsLess Than 3 Seconds I&O Intake and Output 11/12/17 00:00 Intake Total 4355 ml Output Total 950 ml Balance 3405 ml Intake Oral 1310 ml IV Total 3045 ml Output Urine Total 950 ml # Voids 3 General: No Acute Distress Lungs: Clear to Auscultation (With no obvious rales) Heart: Regular Rate Abdomen: Soft Skin: No Rashes Results/Procedures Lab Laboratory Tests 11/12/17 04:27: White Blood Count 10.7, Red Blood Count 2.84L, Hemoglobin 9.3L, Hematocrit 27L, Mean Corpuscular Volume 95, Mean Corpuscular Hemoglobin 33, Mean Corpuscular Hemoglobin Concent 34, Red Cell Distribution Width 12.2, Platelet Count 121L, Mean Platelet Volume 10.6H Microbiology 11/09/17 MRSA Screen - Final, Complete MRSA not isolated 11/09/17 Urine Culture - Final, Complete NO GROWTH Radiology Date of Exam:11/09/17 PELVIS WITH LEFT HIP 2-3 VIEWS EXAMINATION: Pelvis with left hip. INDICATION: Injury hip pain Single AP view of the pelvis and AP and lateral views of the left hip were obtained. There is an impacted essentially nondisplaced fracture of the left femoral neck. No other fracture or acute bony abnormality is noted. 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 The prosthetic component is seen to be in good position. There is an oval calcification overlying the right ilium. This finding was also present on the prior exam of 03/17/2007, has not changed. The soft tissues are unremarkable. IMPRESSION: There is impacted fracture left femoral neck. No other acute bony abnormality is noted. Date of Exam:11/09/17 CHEST 1 VIEW, AP/PA ONLY INDICATION: Fall. Left hip pain. COMPARISON: 08/23/2016. FINDINGS: Portable chest shows the lungs to be well aerated. There are no infiltrates or masses. Heart is not enlarged. There is no pulmonary edema. No hilar adenopathy. No pneumothorax or pleural effusion. IMPRESSION: Normal portable chest. Assessment/Plan Assessment/Plan Plan 77 yo F admitted for Acute left hip fracture Left hip fracture s/p ORIF today - Management per Ortho - Hgb normal, VS stable - Resumed anti coagulation yesterday 11/12 -planning on IRF Monday 11/13 Left Knee Pain: Acute vs old fracture of patella Dyspnea likely 2/2 atelectasis - Encourage IS, titrate oxygen as tolerated - Spoke with PT today to get patient moving 11/12 improved HTN: - Will continue to monitor FEN: Advance diet as tolerated to Reg DVT PPX: Eliquis Dispo: Continue admission, Patient has been accepted for IRF, will go on Tuesday Clinical Quality Measures DVT/VTE Risk/Contraindication: Risk Factor Score Per Nursin RFS Level Per Nursing on Admit: 4+=Very High LEXI COATS MD Nov 12, 2017 08:58
--- NOTE | 2017-11-12 11:12 | Diagnostic Imaging Report ---
Indication: Pneumonia Comparison: 11/09/2017 Findings: Upright portable view of the chest is obtained. Heart size is normal. The pulmonary vessels appear unremarkable. There is no pneumothorax, mediastinal widening or pleural fluid. There may be some very minimal subtle developing alveolar opacity at the left lung base. The right lung is clear. Impression: Possible minimal developing left basilar infiltrate. Short-term followup study may be of benefit. Dictated by: Dictated on workstation # [id number]
[2017-11-12 12:00] VITALS: BP 103/67
[2017-11-12 16:00] VITALS: BP 144/66
[2017-11-12] MEDS ORDERED: guaiFENesin/DM (ROBITUSSIN DM) 10 ML UDC PO PRN (16:15)
[2017-11-12] MEDS: cefTRIAXone INJECTION 1,000 MG in D5W 50 ML IVPB SOLUTION 50 ML IV SCH (16:42)
--- NOTE | 2017-11-12 16:46 | Progress Note (SOAP) ---
Subjective Date Seen by Provider: Nov 12, 2017 Time Seen by Provider: 16:30 Subjective/Events-last exam Pt ORIANA, pain controlled, no cp/sob, no overnight issues, no complaints. Objective Exam Vital Signs Date Time Temp Pulse Resp B/P (MAP) Pulse Ox O2 Delivery O2 Flow Rate FiO2 11/12/17 12:00 98.9 70 20 103/67 (79) 99 Room Air 11/12/17 08:00 99.5 79 18 98/61 (73) 97 Room Air 11/12/17 07:44 Nasal Cannula 2.00 11/12/17 04:00 100.5 86 18 129/60 (83) 98 Nasal Cannula 1.00 11/12/17 00:00 97.4 70 18 109/53 (71) 100 Nasal Cannula 1.00 11/11/17 21:39 66 90/49 (63) 11/11/17 21:00 Nasal Cannula 2.00 11/11/17 19:15 98.6 69 18 95/55 (68) 97 Room Air 11/11/17 18:15 98.6 11/11/17 17:45 Nasal Cannula 1.00 11/11/17 16:59 99.5 I & O 11/12/17 07:00 Intake Total 3055 ml Output Total 1300 ml Balance 1755 ml Capillary Refill : Less Than 3 SecondsLess Than 3 Seconds General Appearance: No Apparent Distress, WD/WN HEENT: PERRL/EOMI Neck: Supple Respiratory: No Accessory Muscle Use, No Respiratory Distress Cardiovascular: Irregularly Irregular Peripheral Pulses: 2+ Dorsalis Pedis (R), 2+ Left Dors-Pedis (L) Gastrointestinal: non tender, soft Extremity: Other (LLE: incision c/d/i, all compartments soft/NT, foot well perfused, motor/sensation grossly intact; no swelling/edema Left knee, no TTP over patella, straight leg raise/extensor mechanism intact) Skin: Normal Color, Warm/Dry Results Lab Laboratory Tests 11/12/17 04:27: White Blood Count 10.7, Red Blood Count 2.84L, Hemoglobin 9.3L, Hematocrit 27L, Mean Corpuscular Volume 95, Mean Corpuscular Hemoglobin 33, Mean Corpuscular Hemoglobin Concent 34, Red Cell Distribution Width 12.2, Platelet Count 121L, Mean Platelet Volume 10.6H Microbiology 11/09/17 MRSA Screen - Final, Complete MRSA not isolated 11/09/17 Urine Culture - Final, Complete NO GROWTH Assessment/Plan Assessment/Plan Assess & Plan/Chief Complaint 77 y/o female s/p Hemiarthroplasty Left Hip, POD #2 Acute post-op blood loss anemia: Hb at 9.3 today, VSS, remains asymptomatic, will continue to monitor Patella fracture Left knee is an old injury, no signs of acute injury on exam Orthopedically stable Continue PT/OT for mobilization OOB, need to encourage the patient to be more mobile, anterior hip precautions Left hip, WBAT LLE Eliquis/SCDs for VTE Current pain control regimen Bowel regimen ISB and increase mobilization OOB to increase pulm toilet D/C planning: pt approved for inpatient rehab, likely transfer tomorrow Instructions given Questions answered F/U outpatient in 2 weeks. Clinical Quality Measures DVT/VTE Risk/Contraindication: Risk Factor Score Per Nursin RFS Level Per Nursing on Admit: 4+=Very High GUERO BROWN DO Nov 12, 2017 16:46
--- NOTE | 2017-11-12 16:51 | Discharge Inst-Surgical ---
Discharge Inst-Surgical Depart Medication/Instructions Patient Instructions Continue Eliquis as prescribed Consults/Follow Up Goal/Follow Up Appt.: Please follow-up with Dr. Brown at [facility] [address] [place] [address], Funmilayo CANTRELL in 2 weeks; please call the office to confirm your appointment. Activity Activity as Tolerated: Yes Strict anterior hip precautions Left hip; no heal slides, no active/passive internal rotation/abduction; WBAT LLE Walking Assistive Device: Walker Driving Instructions: No Driving/Refer to Incentive Spirometry: Every 2 Hours While Awake Diet Discharge Diet: No Restrictions Symptoms to Report to Physicia: Numbness/Tingling, Pain Increased, Fever Over 101 Degrees F Skin/Wound Care Infection Signs and Symptoms: Increased Redness, Foul Odor of Wound, Increased Drainage, Increased Swelling, Temperature Above 101 F Wound Care Comment: You may remove your dressings in 3 days and shower; no baths or soaking tubs; earline to be removed in 10-14 days. Operative Area Clean and Dry: Keep Incision Clean/Dry Stitches/Earline/Dermabond Dis: Care of [place] GUERO BROWN DO Nov 12, 2017 16:51
[2017-11-12] MEDS: fentaNYL INJECTION 100 MCG/2 ML AMP IV PRN (17:34)
[2017-11-12 20:00] VITALS: BP 137/64
[2017-11-12] MEDS: SIMvastatin 20 MG (ZOCOR) TAB PO SCH (20:51)
[2017-11-12] MEDS: HYDROcodone/APAP 5 MG/325 MG (LORTAB) TAB PO PRN (20:52)
[2017-11-13] VITALS: BP 102/52
[2017-11-13 04:03] VITALS: BP 107/53
[2017-11-13 05:16] LABS: HEMOGLOBIN 7.9 G/DL (11.5-16.0); MEAN PLATELET VOLUME 10.5 FL (7.4-10.4); RED BLOOD COUNT 2.42 10^6/uL (4.35-5.85); RED CELL DISTRIBUTION WIDTH 12.3 % (10.0-14.5); WHITE BLOOD COUNT 9.8 10^3/uL (4.3-11.0)
[2017-11-13] MEDS: LEVOTHYROXINE 25 MCG (LEVOTHROID) TAB PO SCH (05:16)
[2017-11-13] MEDS: PANTOPRAZOLE 20 MG TABLET (PROTONIX) PO SCH (05:16)
[2017-11-13 08:00] VITALS: BP 132/62
--- NOTE | 2017-11-13 08:40 | Progress Note (SOAP) ---
Subjective Subjective/Events-last exam Patient communicating well. Her cough appears to be a little bit better today. Review of Systems Date Seen by Provider: Nov 13, 2017 Time Seen by Provider: 07:00 Objective Exam Last Set of Vital Signs Vital Signs Date Time Temp Pulse Resp B/P (MAP) Pulse Ox O2 Delivery O2 Flow Rate FiO2 11/13/17 07:55 Room Air 11/13/17 04:03 97.4 63 18 107/53 (71) 95 11/12/17 07:44 2.00 Capillary Refill : Less Than 3 SecondsLess Than 3 Seconds I&O Intake and Output 11/13/17 00:00 Intake Total 2730 ml Output Total 1800 ml Balance 930 ml Intake Oral 680 ml IV Total 2050 ml Output Urine Total 1800 ml # Voids 3 General: No Acute Distress Neck: Supple Lungs: Clear to Auscultation (Except for a few rales in the L base) Heart: Regular Rate Abdomen: Soft Skin: No Rashes, Other (Somewhat pale) Results/Procedures Lab Laboratory Tests 11/13/17 04:52: White Blood Count 9.8, Red Blood Count 2.42L, Hemoglobin 7.9L, Hematocrit 23L, Mean Corpuscular Volume 95, Mean Corpuscular Hemoglobin 33, Mean Corpuscular Hemoglobin Concent 34, Red Cell Distribution Width 12.3, Platelet Count 121L, Mean Platelet Volume 10.5H Microbiology 11/09/17 MRSA Screen - Final, Complete MRSA not isolated 11/09/17 Urine Culture - Final, Complete NO GROWTH Radiology Date of Exam:11/09/17 PELVIS WITH LEFT HIP 2-3 VIEWS EXAMINATION: Pelvis with left hip. INDICATION: Injury hip pain Single AP view of the pelvis and AP and lateral views of the left hip were obtained. There is an impacted essentially nondisplaced fracture of the left femoral neck. No other fracture or acute bony abnormality is noted. 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 The prosthetic component is seen to be in good position. There is an oval calcification overlying the right ilium. This finding was also present on the prior exam of 03/17/2007, has not changed. The soft tissues are unremarkable. IMPRESSION: There is impacted fracture left femoral neck. No other acute bony abnormality is noted. Date of Exam:11/09/17 CHEST 1 VIEW, AP/PA ONLY INDICATION: Fall. Left hip pain. COMPARISON: 08/23/2016. FINDINGS: Portable chest shows the lungs to be well aerated. There are no infiltrates or masses. Heart is not enlarged. There is no pulmonary edema. No hilar adenopathy. No pneumothorax or pleural effusion. IMPRESSION: Normal portable chest. Assessment/Plan Assessment/Plan Plan 77 yo F admitted for Acute left hip fracture 1. Left hip fracture s/p ORIF today - Management per Ortho - Hgb normal, VS stable - Resumed anti coagulation yester11/12 -planning on IRF 11/13 - Hold on transferred to IRF due to pneumonia -Suspect transfer will occur either Tuesday or Tuesday 2. Pneumonia left lower lobe -Day number 2 Rocephin 3. Anemia--felt to be dilutional -Will hold on IV fluids since she is taking oral well -Plan on rechecking CBC in the morning of November 14 4. Left Knee Pain: Acute vs old fracture of patella 5. Dyspnea likely 2/2 atelectasis - Encourage IS, titrate oxygen as tolerated - Spoke with PT today to get patient moving 11/12 improved 6. HTN: - Will continue to monitor FEN: Advance diet as tolerated to Reg DVT PPX: Eliquis Dispo: Continue admission, Patient has been accepted for IRF, will go on Tuesday Clinical Quality Measures DVT/VTE Risk/Contraindication: Risk Factor Score Per Nursin RFS Level Per Nursing on Admit: 4+=Very High LEXI COATS MD Nov 13, 2017 08:40
[2017-11-13] MEDS: ALPRAZolam 1 MG (XANAX) TAB PO SCH ×3 (09:47→20:36)
[2017-11-13] MEDS: FAMOTIDINE 20MG/2ML IV (PEPCID) IVP SCH (09:47)
[2017-11-13] MEDS: buPROPion SR 150 MG (WELLBUTRIN SR) TAB PO SCH ×2 (09:47→20:36)
[2017-11-13] MEDS: APIXABAN 5 MG (ELIQUIS) TABLET PO SCH ×2 (09:47→20:36)
[2017-11-13] MEDS: FLECAINIDE 100 MG (TAMBOCOR) TAB PO SCH (09:47)
[2017-11-13] MEDS: meTOprolol TARTRATE 25 MG (LOPRESSOR) TABLET PO SCH ×2 (09:47→20:36)
[2017-11-13] MEDS: DOCUSATE SODIUM 100 MG (COLACE) CAP PO SCH ×3 (09:47→20:36)
[2017-11-13] MEDS: CATHETER FLUSH 10 ML SYR IV PRN ×2 (09:48→16:01)
--- NOTE | 2017-11-13 11:45 | Physical Therapy Daily Note ---
PT Daily Note-Current Subjective Pt is in bed, awake, but repeatedly falls asleep during activity. Pain Numeric Pain Scale: 5-Moderate Pain Location: Left Location Body Site: Hip Pain Description: Ache, Dull Appearance Lethargic Mental Status Patient Orientation: Person Transfers Functional [place] Measure 0=Not Assessed/NA 4=Minimal Assistance 1=Total Assistance 5=Supervision or Setup 2=Maximal Assistance 6=Modified [place] 3=Moderate Assistance 7=Complete IndependenceIRFPAI Quality Coding Scale 6 Independent with activity with or without an assistive device 5 Patient requires set up or clean up by helper. Patient completes activity by themselves 4 Supervision or touching assist (CGA). [place] provide cues , steadying assist 3 The helper provides less than half the effort to complete the activity 2 The helper provides more than half the effort to complete the activity 1 Dependent. The helper does all the effort to complete an activity 7 Patient refused to complete or attempt activity 9 The patient did not perform the activity before the current illness or injury 88 Not attempted due to Medical conditions or safety concerns Transfers (B, C, W/C) (FIM): 1 Scootin Rollin Supine to/from Sit: 1 Sit to/from Stand: 1 Bed to/from Chair: 1 Pt was able to stand, but due to lethargy required total assist to remain standing safely. Weight Bearing Right Lower Extremity: Right Full Weight Bearing Left Lower Extremity: Left Weight Bearing/Tolerated Gait Training Gait (FIM): 1 Distance (FIM): 1=up to 49 ft Distance: 6ft Gait Level of Assist: 1 Gait Persons Needed: 1 Gait Assistive Device: FWW After walking 6 ft, very slowly, she became even more lethargic and started to try sitting down before she had turned to sit. Able to perform a lift and turn to sit safely. Exercises Supine Ex: Ankle pumps, Quad Set, Glut sets, Short Arc Quads Supine Reps: 15 Assessment Current Status: Poor Progress Lethargy limited her participation during all activity. PT Short Term Goals Short Term Goals Time Frame: Nov 18, 2017 Gait (FIM): 1 Distance (FIM): 1=up to 49 ft Gait Distance Comment: 10' Gait Level of Assist: 4 Gait Assistive Device: FWW Wheelchair distance (FIM): 0=985-69 ft PT Plan Treatment/Plan Treatment Plan: Continue Plan of Care Treatment Plan: Bed Mobility, Education, Functional Activity Ashley, Functional Strength, Gait, Safety, Therapeutic Exercise, Transfers Treatment Duration: Nov 15, 2017 Frequency: 11 times per week Estimated Hrs Per Day: .25 hour per day (15-30') Patient and/or Family Agrees t: Yes Time/GCodes Time In: 1115 Time Out: 1140 Total Billed Treatment Time: 25 Total Billed Treatment 1, ex 15, gt 10 YOUNG CARR PT Nov 13, 2017 11:45
[2017-11-13 12:00] VITALS: BP 136/61
[2017-11-13 15:33] VITALS: BP 152/71
[2017-11-13] MEDS: cefTRIAXone INJECTION 1,000 MG in D5W 50 ML IVPB SOLUTION 50 ML IV SCH (16:01)
[2017-11-13] MEDS: HYDROcodone/APAP 5 MG/325 MG (LORTAB) TAB PO PRN (16:33)
[2017-11-13 19:13] VITALS: BP 126/71
[2017-11-13] MEDS: SIMvastatin 20 MG (ZOCOR) TAB PO SCH (20:36)
[2017-11-13] MEDS: IBUPROFEN 600 MG (MOTRIN) TAB PO PRN (23:27)
[2017-11-14 00:09] VITALS: BP 147/85
[2017-11-14 04:30] VITALS: BP 115/67
[2017-11-14] MEDS: LEVOTHYROXINE 25 MCG (LEVOTHROID) TAB PO SCH (05:29)
[2017-11-14] MEDS: PANTOPRAZOLE 20 MG TABLET (PROTONIX) PO SCH (05:29)
[2017-11-14] MEDS: HYDROcodone/APAP 5 MG/325 MG (LORTAB) TAB PO PRN (05:29)
[2017-11-14 06:25] LABS: BASOPHILS % (AUTO) 0 % (0-10); EOSINOPHILS # (AUTO) 0.1 10^3/uL (0.0-0.3); EOSINOPHILS % (AUTO) 1 % (0-10); HEMATOCRIT 26 % (35-52); HEMOGLOBIN 8.9 G/DL (11.5-16.0); LYMPHOCYTES # (AUTO) 2.4 X 10^3 (1.0-4.0); LYMPHOCYTES % (AUTO) 21 % (12-44); MEAN CORPUSCULAR HEMOGLOBIN 32 PG (25-34); MEAN CORPUSCULAR HGB CONC 34 G/DL (32-36); MEAN CORPUSCULAR VOLUME 94 FL (80-99); MEAN PLATELET VOLUME 10.5 FL (7.4-10.4); MONOCYTES # (AUTO) 1.1 X 10^3 (0.0-1.0); MONOCYTES % (AUTO) 10 % (0-12); NEUTROPHILS # (AUTO) 7.6 X 10^3 (1.8-7.8); NEUTROPHILS % (AUTO) 67 % (42-75); PLATELET COUNT 199 10^3/uL (130-400); RED BLOOD COUNT 2.78 10^6/uL (4.35-5.85); RED CELL DISTRIBUTION WIDTH 12.3 % (10.0-14.5); WHITE BLOOD COUNT 11.2 10^3/uL (4.3-11.0)
[2017-11-14 08:00] VITALS: BP 113/74
[2017-11-14] MEDS: FAMOTIDINE 20MG/2ML IV (PEPCID) IVP SCH (08:31)
[2017-11-14] MEDS: meTOprolol TARTRATE 25 MG (LOPRESSOR) TABLET PO SCH ×2 (08:34→21:39)
[2017-11-14] MEDS: FLECAINIDE 100 MG (TAMBOCOR) TAB PO SCH (08:34)
[2017-11-14] MEDS: buPROPion SR 150 MG (WELLBUTRIN SR) TAB PO SCH ×2 (08:34→21:39)
[2017-11-14] MEDS: ALPRAZolam 1 MG (XANAX) TAB PO SCH ×3 (08:34→21:39)
[2017-11-14] MEDS: DOCUSATE SODIUM 100 MG (COLACE) CAP PO SCH ×3 (08:35→21:40)
[2017-11-14] MEDS: APIXABAN 5 MG (ELIQUIS) TABLET PO SCH ×2 (08:35→21:39)
--- NOTE | 2017-11-14 10:31 | Physical Therapy Daily Note ---
PT Daily Note-Current Subjective Patient is up in recliner attempting to answer an invisible phone. Pain Numeric Pain Scale: 0-No Pain Location: No Pain Reported Mental Status Patient Orientation: Confused, Mumbles, Listless Transfers Functional [place] Measure 0=Not Assessed/NA 4=Minimal Assistance 1=Total Assistance 5=Supervision or Setup 2=Maximal Assistance 6=Modified [place] 3=Moderate Assistance 7=Complete IndependenceIRFPAI Quality Coding Scale 6 Independent with activity with or without an assistive device 5 Patient requires set up or clean up by helper. Patient completes activity by themselves 4 Supervision or touching assist (CGA). [place] provide cues , steadying assist 3 The helper provides less than half the effort to complete the activity 2 The helper provides more than half the effort to complete the activity 1 Dependent. The helper does all the effort to complete an activity 7 Patient refused to complete or attempt activity 9 The patient did not perform the activity before the current illness or injury 88 Not attempted due to Medical conditions or safety concerns Transfers (B, C, W/C) (FIM): 3 Scootin Sit to/from Stand: 3 unable to follow simple direction for hand placement for safe sit to stand transfer Weight Bearing Right Lower Extremity: Right Full Weight Bearing Left Lower Extremity: Left Weight Bearing/Tolerated Gait Training Gait (FIM): 1 Distance (FIM): 1=up to 49 ft Distance: 3 steps Gait Level of Assist: 2 Gait Persons Needed: 1 Gait Assistive Device: FWW unable to advance LE's with attempt to ambulate. Patient having difficulty with reciprocal movement Exercises Seated Therapy Exercises: Ankle pumps, Long arc quads Seated Reps: 15 (AAROM) Assessment Patient is extremely lethargic and listless. She was observed trying to answer an invisible phone when the phone by her was ringing. From a PT standpoint, patient would benefit from LTCF due to lack of progress and inability to follow simple direction. PT Short Term Goals Short Term Goals Time Frame: Nov 18, 2017 Gait (FIM): 1 Distance (FIM): 1=up to 49 ft Gait Distance Comment: 10' Gait Level of Assist: 4 Gait Assistive Device: FWW Wheelchair distance (FIM): 8=335-74 ft PT Plan Treatment/Plan Treatment Plan: Continue Plan of Care Treatment Plan: Bed Mobility, Education, Functional Activity Ashley, Functional Strength, Gait, Safety, Therapeutic Exercise, Transfers Treatment Duration: Nov 15, 2017 Frequency: 11 times per week Estimated Hrs Per Day: .25 hour per day (15-30') Patient and/or Family Agrees t: Yes Time/GCodes Time In: 1000 Time Out: 1023 Total Billed Treatment Time: 23 Total Billed Treatment 1 visit FA x 2 23 min TRACE GRAHAM PT Nov 14, 2017 10:31
--- NOTE | 2017-11-14 11:08 | Progress Note (SOAP) ---
Subjective Subjective/Events-last exam Per nursing report, patient is becoming more confused, and at times agitated. She has pulled out several IVs in her confused state. At the time of my exam she is able to tell me her name and birthdate, and that he is in the hospital because she feel and hurt her hip, however she is confused about who I am or why I am coming to see her, even after this is explained to her. Patient states she does not think she could do the amount of PT required for inpatient rehab at this time. Continues to have a cough that is intermittently productive. Also continues to have fevers, with a Tmax of 101.2 overnight. Concern from nursing staff about patient being able to keep up with the requirements of inpatient rehab, both cognitively and physically. Review of Systems Date Seen by Provider: Nov 14, 2017 Time Seen by Provider: 10:47 General: Chills, No Night Sweats, Fatigue, Malaise, No Appetite HEENT: No Head Aches, No Eye Pain, No Ear Pain, No Sore Throat Pulmonary: No Dyspnea, Cough, No Pleuritic Chest Pain Cardiovascular: No: Chest Pain, Palpitations, Edema Gastrointestinal: No: Nausea, Vomiting, Abdominal Pain, Diarrhea, Constipation , Melena, Hematochezia Genitourinary: No Dysuria, Frequency, No Hematuria, No Retention Musculoskeletal: other (hip/pelvic pain), No: neck pain, shoulder pain Neurological: Weakness, Incoordination, Confusion, No: Seizures Objective Exam Last Set of Vital Signs Vital Signs Date Time Temp Pulse Resp B/P (MAP) Pulse Ox O2 Delivery O2 Flow Rate FiO2 11/14/17 04:30 97.2 70 20 115/67 (83) 96 Room Air 11/12/17 07:44 2.00 Capillary Refill : Less Than 3 SecondsLess Than 3 Seconds I&O Intake and Output 11/14/17 00:00 Intake Total 1170 ml Output Total 450 ml Balance 720 ml Intake Oral 1120 ml IV Total 50 ml Output Urine Total 450 ml # Voids 4 # Bowel Movements 1 General: Oriented X3, Cooperative, No Acute Distress, Other (mucous membranes are pink, but somewhat dry) HEENT: Atraumatic, PERRLA, EOMI Neck: Supple, No JVD, No Thyromegaly Lungs: Normal Air Movement (diminished in bases, worse L > R) Heart: No Murmurs, Rubs, Other (irregular rate and rhythm) Abdomen: Normal Bowel Sounds, Soft, No Tenderness, No Hepatosplenomegaly, No Masses Extremities: No Clubbing, No Cyanosis, Normal Pulses Skin: No Rashes, No Significant Lesion Neuro: Normal Tone, Other (drifts to sleep during speaking, awakens easily) Psych/Mental Status: Mental Status NL, Mood NL Results/Procedures Lab Laboratory Tests 11/14/17 05:15: White Blood Count 11.2H, Red Blood Count 2.78L, Hemoglobin 8.9L, Hematocrit 26L , Mean Corpuscular Volume 94, Mean Corpuscular Hemoglobin 32, Mean Corpuscular Hemoglobin Concent 34, Red Cell Distribution Width 12.3, Platelet Count 199, Mean Platelet Volume 10.5H, Neutrophils (%) (Auto) 67, Lymphocytes (%) (Auto) 21 , Monocytes (%) (Auto) 10, Eosinophils (%) (Auto) 1, Basophils (%) (Auto) 0, Neutrophils # (Auto) 7.6, Lymphocytes # (Auto) 2.4, Monocytes # (Auto) 1.1H, Eosinophils # (Auto) 0.1, Basophils # (Auto) 0.0 Microbiology 11/09/17 MRSA Screen - Final, Complete MRSA not isolated 11/09/17 Urine Culture - Final, Complete NO GROWTH Radiology Date of Exam:11/09/17 PELVIS WITH LEFT HIP 2-3 VIEWS EXAMINATION: Pelvis with left hip. INDICATION: Injury hip pain Single AP view of the pelvis and AP and lateral views of the left hip were obtained. There is an impacted essentially nondisplaced fracture of the left femoral neck. No other fracture or acute bony abnormality is noted. 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 The prosthetic component is seen to be in good position. There is an oval calcification overlying the right ilium. This finding was also present on the prior exam of 03/17/2007, has not changed. The soft tissues are unremarkable. IMPRESSION: There is impacted fracture left femoral neck. No other acute bony abnormality is noted. Date of Exam:11/09/17 CHEST 1 VIEW, AP/PA ONLY INDICATION: Fall. Left hip pain. COMPARISON: 08/23/2016. FINDINGS: Portable chest shows the lungs to be well aerated. There are no infiltrates or masses. Heart is not enlarged. There is no pulmonary edema. No hilar adenopathy. No pneumothorax or pleural effusion. IMPRESSION: Normal portable chest. Assessment/Plan Assessment/Plan Admission Dx Acute Left Hip Fracture Plan 77 yo F admitted for Acute left hip fracture 1. Left hip fracture s/p ORIF today (11/10/17) - Management per Ortho - Hgb normal, VS stable - Resumed anti coagulation yesterday 11/12 -planning on IRF 11/13 - Hold on transferred to IRF due to pneumonia -Suspect transfer will occur either Tuesday or Tuesday 11/14 -continue eliquis for chronic afib; pt not able to go to IRF today as she remains febrile as well as confused and lethargic 2. Pneumonia left lower lobe -Day number 2 Rocephin 11/14 -per radiology report on 11/12 pt had possible minimal developing left basilar infiltrate and was started on rocephin -given that pt did not come in with any s/s of illness, and she continues to have fevers despite rocephin, will barnett culture, check for influenza, stop rocephin and start cefepime for improved coverage for presumed HCAP 3. Anemia--felt to be dilutional -Will hold on IV fluids since she is taking oral well -Plan on rechecking CBC in the morning of November 1411/14 -Hgb 8.9, improved from yesterday 7.9 -recheck in AM 4. Left Knee Pain: Acute vs old fracture of patella 5. Dyspnea likely 2/2 atelectasis - Encourage IS, titrate oxygen as tolerated - Spoke with PT today to get patient moving 11/12 improved 11/14 -continues to attempt to work with PT, SOB improving but still coughing and febrile. CXR and panculture, abx changed as outlined above 6. HTN: - Will continue to monitor 11/14 -stable on current regimen 7. Hyponatremia 11/14 -mild, Na 133, recheck in AM 8. Hypocalcemia -mild, Ca 8.2, recheck in AM 9. Low platelets -121 on admission, now resolved and 133, recheck in AM 10. Confusion 11/14 -not improved per nursing staff from previous days -panculture to rule out infectious cause and escalate abx therapy at this time -will start seroquel 25 mg at HS, as pt has been very confused and agitated at times, including pulling out her IV lines Unfortunately patient has not made significant improvement today. Will obtain additional labs as above and will see if there is another potential source of infection. Escalate therapy to Cefepime 2 grams IVPB Q8H for now. Start seroquel. In order for pt to derive significant benefit from IRF, she will need to show steady improvement before transferring to IRF. If pt continues to be lethargic and confused once infection is treated, she may derive more benefit from LTAC, as at this point she may not be able to do to the intensive therapy involved in IRF. Will continue to monitor and re-evaluate once patient has clinically improved. FEN: Advance diet as tolerated to Reg DVT PPX: Eliquis Dispo: Continue admission, Patient has been accepted for IRF, but at this time remains acutely ill and requires an inpatient level of care for her illness Clinical Quality Measures DVT/VTE Risk/Contraindication: VTE Addressed: Yes VTE Present on Admission: No Risk Factor Score Per Nursin RFS Level Per Nursing on Admit: 4+=Very High Other: Pt restarted on home eliquis as soon as okay'ed by surgical team post op DVT/VTE Prophylaxis Comfirm.Dx Therapy overlap <5days: Scheduled for Surgery MEENA KESSLER DO Nov 14, 2017 11:08
[2017-11-14 12:00] VITALS: BP 148/61
--- NOTE | 2017-11-14 12:21 | Diagnostic Imaging Report ---
INDICATION: Pneumonia. TIME OF EXAM: 11:39 AM. COMPARISON: 11/12/2017. FINDINGS: There is increasing density in the left base, now obscuring the left hemidiaphragm, suggestive of left basilar infiltrate or atelectasis. Minimal infiltrate or atelectasis at the right base is also present. The mid and upper lung seay are clear. There is no pneumothorax. IMPRESSION: Increasing bibasilar infiltrates or atelectasis when compared with the exam from 2 days earlier. Dictated by: Dictated on workstation # [id number]
--- NOTE | 2017-11-14 13:45 | Physical Therapy Daily Note ---
PT Daily Note-Current Subjective Patient is sitting in recliner and is very lethargic and difficult to wake. Pain Numeric Pain Scale: 0-No Pain Location: No Pain Reported Mental Status Patient Orientation: Person, Confused Transfers Functional [place] Measure 0=Not Assessed/NA 4=Minimal Assistance 1=Total Assistance 5=Supervision or Setup 2=Maximal Assistance 6=Modified [place] 3=Moderate Assistance 7=Complete IndependenceIRFPAI Quality Coding Scale 6 Independent with activity with or without an assistive device 5 Patient requires set up or clean up by helper. Patient completes activity by themselves 4 Supervision or touching assist (CGA). [place] provide cues , steadying assist 3 The helper provides less than half the effort to complete the activity 2 The helper provides more than half the effort to complete the activity 1 Dependent. The helper does all the effort to complete an activity 7 Patient refused to complete or attempt activity 9 The patient did not perform the activity before the current illness or injury 88 Not attempted due to Medical conditions or safety concerns Transfers (B, C, W/C) (FIM): 1 Scootin Sit to/from Stand: 3 Patient ceased ambulating after 3 steps and went weight, however, responsive. RN notified. Weight Bearing Right Lower Extremity: Right Full Weight Bearing Left Lower Extremity: Left Weight Bearing/Tolerated Gait Training Gait (FIM): 1 Distance (FIM): 1=up to 49 ft Distance: 3 steps Gait Level of Assist: 1 Gait Persons Needed: 2 Gait Assistive Device: FWW shuffle gait sequence and ceasing and becoming weight requiring dependent assist to return to chair. Exercises Seated Therapy Exercises: Ankle pumps, Long arc quads Seated Reps: 10 (PROM due to lethargy) Assessment Patient continues to be severely lethargic and confused. RN is aware. Call light in hand and chair alarm activated. PT Short Term Goals Short Term Goals Time Frame: Nov 18, 2017 Gait (FIM): 1 Distance (FIM): 1=up to 49 ft Gait Distance Comment: 10' Gait Level of Assist: 4 Gait Assistive Device: FWW Wheelchair distance (FIM): 8=913-31 ft PT Plan Treatment/Plan Treatment Plan: Continue Plan of Care Treatment Plan: Bed Mobility, Education, Functional Activity Ashley, Functional Strength, Gait, Safety, Therapeutic Exercise, Transfers Treatment Duration: Nov 15, 2017 Frequency: 11 times per week Estimated Hrs Per Day: .25 hour per day (15-30') Patient and/or Family Agrees t: Yes Time/GCodes Time In: 1325 Time Out: 1335 Total Billed Treatment Time: 10 Total Billed Treatment 1 visit FA 10 min TRACE GRAHAM PT Nov 14, 2017 13:45
[2017-11-14] MEDS: CEFEPIME INJECTION 2,000 MG in D5W 50 ML IVPB SOLUTION 50 ML IV SCH ×2 (14:27→22:18)
[2017-11-14 14:34] LABS: BILIRUBIN,URINE NEGATIVE (NEGATIVE); CLARITY,URINE CLEAR; COLOR,URINE YELLOW; GLUCOSE, URINE (UA) NEGATIVE (NEGATIVE); KETONES,URINE NEGATIVE (NEGATIVE); LEUKOCYTE ESTERASE ,URINE NEGATIVE (NEGATIVE); NITRITE,URINE NEGATIVE (NEGATIVE); PH,URINE 6 (5-9); PROTEIN,URINE 1+ (NEGATIVE); UROBILINOGEN,URINE 1 MG/DL (NORMAL)
--- NOTE | 2017-11-14 14:49 | Occupational Ther Daily Note ---
OT Current Status-Daily Note Subjective Pt sitting in chair, agrees to treatment. Pt denies pain. Mental Status/Objective Functional [place] Measure 0=Not Assessed/NA 4=Minimal Assistance 1=Total Assistance 5=Supervision or Setup 2=Maximal Assistance 6=Modified [place] 3=Moderate Assistance 7=Complete [place] ADL-Treatment Pt requests to use BSC. Sit to stand with moderate assistance and cues to push up from chair. Pt transferred to BSC with FWW and moderate assistance x2 for safety. Pt requires multiple cues for safety and walker use. Attempts to sit prematurely, requires assist for safety. Pt requires total assist for toileting hygiene. Pt transferred back to chair with mod assist. Pt combed hair with minimal assistance to reach back of head. Pt washed face with SBA. Pt is lethargic and moves very slowly. Cues for task completion. Pt sitting in chair with needs met, chair alarm in place, and RN present after session. Grooming (FIM): 4 Toileting (FIM): 1 Toilet/Commode Transfer (FIM): 3 OT Short Term Goals Short Term Goals 1=Demonstrate adherence to instructed precautions during ADL tasks. 2=Patient will verbalize/demonstrate understanding of assistive devices/ modifications for ADL. 3=Patient will improve strength/tolerance for activity to enable patient to perform ADL's. OT Dry Wall Nailer Goals Dry Wall Nailer Goals Time Frame: Dec 02, 2017 Eating (FIM): 6 Grooming(FIM): 6 Bathing(FIM): 6 Upper Body Dressing(FIM): 6 Lower Body Dressing(FIM): 6 Toileting(FIM): 6 Toilet/Commode Transfer(FIM): 6 Tub Transfer(FIM): 6 Shower Transfer(FIM): 6 Additional Goals: 2-Verbalize Understanding, 3-ImproveStrength/Ashley 1=Demonstrate adherence to instructed precautions during ADL tasks. 2=Patient will verbalize/demonstrate understanding of assistive devices/ modifications for ADL. 3=Patient will improve strength/tolerance for activity to enable patient to perform ADL's. OT Education/Plan Problem List/Assessment Pt would benefit from skilled OT to increase her independence in basic self care and to decrease caregiver burden. Discharge Recommendations Plan/Recommendations: Continue POC Treatment Plan/Plan of Care Patient would benefit from OT for education, treatment and training to promote independence in ADL's, mobility, safety and/or upper extremity function for ADL' s. Plan of Care: ADL Retraining, Functional Mobility, UE Funct Exercise/Act Treatment Duration: Dec 02, 2017 Frequency: 5 times per week Estimated Hrs Per Day: .5 hour per day Agreement: Yes Rehab Potential: Fair Time/GCodes Start Time: 14:06 Stop Time: 14:29 Total Time Billed (hr/min): 23 Billed Treatment Time 1 visit, ADLx2(23minutes) SANTOS RODRIGUEZ OT Nov 14, 2017 14:49
[2017-11-14 15:10] LABS: BACTERIA,URINE TRACE /HPF; RBC,URINE RARE /HPF; SQUAMOUS EPITHELIAL CELL,UR 0-2 /HPF; WBC,URINE 0-2 /HPF
[2017-11-14 16:00] VITALS: BP 127/75
[2017-11-14] MEDS: IBUPROFEN 600 MG (MOTRIN) TAB PO PRN (18:49)
[2017-11-14 20:01] VITALS: BP 120/57
[2017-11-14] MEDS: QUEtiapine 25 MG (SEROquel) TAB IMMEDIATE RELEASE PO SCH (21:39)
[2017-11-14] MEDS: SIMvastatin 20 MG (ZOCOR) TAB PO SCH (21:40)
[2017-11-15 00:08] VITALS: BP 129/68
[2017-11-15 04:16] VITALS: BP 137/64
[2017-11-15] MEDS: LEVOTHYROXINE 25 MCG (LEVOTHROID) TAB PO SCH (06:06)
[2017-11-15] MEDS: CEFEPIME INJECTION 2,000 MG in D5W 50 ML IVPB SOLUTION 50 ML IV SCH ×3 (06:06→21:01)
[2017-11-15] MEDS: PANTOPRAZOLE 20 MG TABLET (PROTONIX) PO SCH (06:06)
[2017-11-15 07:18] LABS: BASOPHILS % (AUTO) 1 % (0-10); EOSINOPHILS # (AUTO) 0.2 10^3/uL (0.0-0.3); EOSINOPHILS % (AUTO) 3 % (0-10); HEMATOCRIT 25 % (35-52); HEMOGLOBIN 8.6 G/DL (11.5-16.0); LYMPHOCYTES # (AUTO) 1.6 X 10^3 (1.0-4.0); LYMPHOCYTES % (AUTO) 20 % (12-44); MEAN CORPUSCULAR HEMOGLOBIN 32 PG (25-34); MEAN CORPUSCULAR HGB CONC 34 G/DL (32-36); MEAN CORPUSCULAR VOLUME 94 FL (80-99); MEAN PLATELET VOLUME 10.1 FL (7.4-10.4); MONOCYTES # (AUTO) 0.9 X 10^3 (0.0-1.0); MONOCYTES % (AUTO) 11 % (0-12); NEUTROPHILS # (AUTO) 5.2 X 10^3 (1.8-7.8); NEUTROPHILS % (AUTO) 66 % (42-75); PLATELET COUNT 207 10^3/uL (130-400); RED BLOOD COUNT 2.67 10^6/uL (4.35-5.85); RED CELL DISTRIBUTION WIDTH 12.6 % (10.0-14.5); WHITE BLOOD COUNT 7.8 10^3/uL (4.3-11.0)
[2017-11-15 07:38] LABS: BUN/CREATININE RATIO 16; CALCIUM 8.2 MG/DL (8.5-10.1); CARBON DIOXIDE 24 MMOL/L (21-32); CHLORIDE 108 MMOL/L (98-107); GFR ESTIMATED > 60; GLUCOSE 96 MG/DL (70-105); MAGNESIUM 1.9 MG/DL (1.8-2.4); POTASSIUM 3.2 MMOL/L (3.6-5.0); SODIUM 141 MMOL/L (135-145)
[2017-11-15 08:00] VITALS: BP 136/79
[2017-11-15] MEDS: FAMOTIDINE 20 MG (PEPCID) TABLET PO SCH (08:52)
[2017-11-15] MEDS: FLECAINIDE 100 MG (TAMBOCOR) TAB PO SCH (08:52)
[2017-11-15] MEDS: meTOprolol TARTRATE 25 MG (LOPRESSOR) TABLET PO SCH ×2 (08:52→21:01)
[2017-11-15] MEDS: APIXABAN 5 MG (ELIQUIS) TABLET PO SCH ×2 (08:52→21:02)
[2017-11-15] MEDS: ALPRAZolam 1 MG (XANAX) TAB PO SCH ×3 (08:52→21:02)
[2017-11-15] MEDS: DOCUSATE SODIUM 100 MG (COLACE) CAP PO SCH ×3 (08:52→21:08)
[2017-11-15] MEDS: buPROPion SR 150 MG (WELLBUTRIN SR) TAB PO SCH ×2 (08:52→21:01)
--- NOTE | 2017-11-15 08:57 | Progress Note (SOAP) ---
Subjective Subjective/Events-last exam Patient asleep in recliner. Easily awakened to voice. Somewhat disoriented - is aware that she is in the hospital, but thinks she is at [facility]. Knows that she is here because she fell and broke her hip. Patient had an unwitnessed fall yesterday, and when asked about it, is able to state that she fell because the recliner has wheels and it slid backwards when she was trying to sit in it. Denies any pain at the time of exam. No injuries noted from fall. Much more alert than yesterday when seen. Has been afebrile for ~36 hours. Social work and therapy concerned with lack of patient progress, explained that patient has sepsis secondary to HCAP, which is likely a significant contributor to her lack of progress. Vital signs stable. Pt's alprazolam has been held due to somnolence for several doses. Review of Systems Date Seen by Provider: Nov 15, 2017 Time Seen by Provider: 10:20 General: No Chills, No Night Sweats, No Fatigue HEENT: No Head Aches, No Visual Changes, No Eye Pain, No Dysphasia, No Sinus Congestion, No Post Nasal Drip, No Sore Throat Pulmonary: No Dyspnea, Cough Cardiovascular: No: Chest Pain, Palpitations, Paroxysmal Noc. Dyspnea, Edema Gastrointestinal: No: Nausea, Vomiting, Abdominal Pain, Diarrhea, Constipation Genitourinary: No Dysuria, No Frequency Musculoskeletal: other (hip pain), No: neck pain, back pain Neurological: Weakness, Incoordination, Confusion, No: Change in speech, Seizures Objective Exam Last Set of Vital Signs Vital Signs Date Time Temp Pulse Resp B/P (MAP) Pulse Ox O2 Delivery O2 Flow Rate FiO2 11/15/17 04:16 98.0 69 18 137/64 (88) 98 Room Air 11/12/17 07:44 2.00 Capillary Refill : Less Than 3 SecondsLess Than 3 Seconds I&O Intake and Output 11/15/17 00:00 Intake Total 1620 ml Output Total 1350 ml Balance 270 ml Intake Oral 1570 ml IV Total 50 ml Output Urine Total 1350 ml # Voids 2 General: Alert, Cooperative, No Acute Distress HEENT: Atraumatic, EOMI, Mucous Memb Moist/[place] Neck: Supple, No JVD, No Thyromegaly Lungs: Other (diminished with coarse breath sounds in bases) Heart: Regular Rate, Normal S1, Normal S2, No Murmurs Abdomen: Normal Bowel Sounds, Soft, No Tenderness, No Hepatosplenomegaly, No Masses Extremities: No Clubbing, No Cyanosis, No Edema, Normal Pulses, No Tenderness/ Swelling Skin: No Rashes, No Significant Lesion Neuro: Normal Speech, Normal Tone, Sensation Intact, Cranial Nerves 3-12 NL Psych/Mental Status: Mood NL, Other (oriented to situation, self, time) Results/Procedures Lab Laboratory Tests 11/14/17 11:35: C-Reactive Protein High Sensitivity 16.70H, Thyroid Stimulating Hormone (TSH) 3.83 11/14/17 14:25: Urine Color YELLOW, Urine Clarity CLEAR, Urine pH 6, Urine Specific [place] 1.010L, Urine Protein 1+H, Urine Glucose (UA) NEGATIVE, Urine Ketones NEGATIVE, Urine Nitrite NEGATIVE, Urine Bilirubin NEGATIVE, Urine Urobilinogen 1, Urine Leukocyte Esterase NEGATIVE, Urine RBC (Auto) NEGATIVE, Urine RBC RARE, Urine WBC 0-2, Urine Squamous Epithelial Cells 0-2, Urine Crystals NONE, Urine Bacteria TRACE, Urine Casts NONE, Urine Mucus NEGATIVE, Urine Culture Indicated YES 11/15/17 06:50: C-Reactive Protein High Sensitivity 11.73H, White Blood Count 7.8, Red Blood Count 2.67L, Hemoglobin 8.6L, Hematocrit 25L, Mean Corpuscular Volume 94, Mean Corpuscular Hemoglobin 32, Mean Corpuscular Hemoglobin Concent 34, Red Cell Distribution Width 12.6, Platelet Count 207, Mean Platelet Volume 10.1, Neutrophils (%) (Auto) 66, Lymphocytes (%) (Auto) 20, Monocytes (%) (Auto) 11, Eosinophils (%) (Auto) 3, Basophils (%) (Auto) 1, Neutrophils # (Auto) 5.2, Lymphocytes # (Auto) 1.6, Monocytes # (Auto) 0.9, Eosinophils # (Auto) 0.2, Basophils # (Auto) 0.0, Sodium Level 141, Potassium Level 3.2L, Chloride Level 108H, Carbon Dioxide Level 24, Anion Gap 9, Blood Urea Nitrogen 11, Creatinine 0.70, Estimat Glomerular Filtration Rate > 60, BUN/Creatinine Ratio 16, Glucose Level 96, Calcium Level 8.2L, Magnesium Level 1.9 Microbiology 11/14/17 Influenza Types A,B Antigen (FERN) - Final, Complete 11/14/17 Urine Culture - Preliminary, Resulted NO GROWTH Radiology CXR 11/14/17 shows increased bibasilar infiltrate or atelectasis compared to two days ago Assessment/Plan Assessment/Plan Admission Dx See Below Plan 77 yo F admitted for Acute left hip fracture 1. Left hip fracture s/p ORIF today (11/10/17) - Management per Ortho - Hgb normal, VS stable - Resumed anti coagulation yesterday 11/12 -planning on IRF 11/13 - Hold on transferred to IRF due to pneumonia -Suspect transfer will occur either Tuesday or Tuesday 11/14 -continue eliquis for chronic afib; pt not able to go to IRF today as she remains febrile as well as confused and lethargic 11/15 -continue PT as tolerated, pt currently with sepsis secondary to PNA, improved over yesterday after abx changed but will require an inpatient level of care and IV abx for treatment of HCAP for several more days before ready to transfer to IRF -patient may potentially be ready for IRF on afternoon, or more likely on Tuesday 2. Pneumonia left lower lobe, Sepsis -Day number 2 Rocephin 11/14 -per radiology report on 11/12 pt had possible minimal developing left basilar infiltrate and was started on rocephin -given that pt did not come in with any s/s of illness, and she continues to have fevers despite rocephin, will barnett culture, check for influenza, stop rocephin and start cefepime for improved coverage for presumed HCAP 11/15 -repeat CXR shows worsening bibasilar infiltrates -Day 2 Cefepime for HCAP -afebrile for ~36 hours; WBC now trending down 12.2 --> 7.8 -CRP 16.7 --> 11.73, will continue to trend 3. Anemia--felt to be dilutional -Will hold on IV fluids since she is taking oral well -Plan on rechecking CBC in the morning of November 1411/14 -Hgb 8.9, improved from yesterday 7.9 -recheck in AM 11/15 -Hgb 8.6, stable from yesterday 4. Left Knee Pain: Acute vs old fracture of patella 5. Dyspnea likely 2/2 atelectasis - Encourage IS, titrate oxygen as tolerated - Spoke with PT today to get patient moving 11/12 improved 11/14 -continues to attempt to work with PT, SOB improving but still coughing and febrile. CXR and panculture, abx changed as outlined above 11/15 -no complaints of SOB today 6. HTN: - Will continue to monitor 11/14 -stable on current regimen 7. Chronic Afib 11/15 -eliquis for anticoagulation 8. Hyponatremia 11/14 -mild, Na 133, recheck in AM 11/15 -resolved 9. Hypocalcemia -mild, Ca 8.2, recheck in AM 11/15 -stable 10. Low platelets -121 on admission, now resolved and 133, recheck in AM 11/15 -stable, will continue to follow 11. Confusion 11/14 -not improved per nursing staff from previous days -panculture to rule out infectious cause and escalate abx therapy at this time -will start seroquel 25 mg at HS, as pt has been very confused and agitated at times, including pulling out her IV lines 11/15 -suspect altered mental status secondary to sepsis secondary to HCAP -appears to be improving with change in abx therapy yesterday; pt still more confused than her baseline, but improving -pt on 2 mg alprazolam TID; dose was decreased to 1 mg yesterday and has been held by nursing staff several times due to somnolence. will decrease to 0.5 mg and hold for somnolence, but also must take into account the potential for benzo withdrawal and will monitor closely for this -continue abx Patient appears improved over yesterday. Influenza negative but CXR suggests worsening infiltrate; abx broadened yesterday to Cefepime 2 grams Q12H and pt appears to be responding well -- more alert, afebrile, CRP and WBC trending down. No growth to date on cultures. Patient with sepsis secondary to HCAP. Continue PT, but patient will not be ready for IRF until likely the end of the week, when she has had more time for her sepsis to be treated and resolve. FEN: Heart Healthy Diet DVT PPX: Eliquis Dispo: Continue admission, Patient has been accepted for IRF, but at this time remains acutely ill and requires an inpatient level of care for her illness CODE STATUS: DNR Clinical Quality Measures DVT/VTE Risk/Contraindication: VTE Addressed: Yes VTE Present on Admission: No Risk Factor Score Per Nursin RFS Level Per Nursing on Admit: 4+=Very High Other: Pt restarted on home eliquis as soon as okay'ed by surgical team post op DVT/VTE Prophylaxis Comfirm.Dx Therapy overlap <5days: Scheduled for Surgery MEENA KESSLER DO Nov 15, 2017 08:57
[2017-11-15] MEDS ORDERED: KCL 20 MEQ TAB (K-DUR) PO ONE (09:00)
--- NOTE | 2017-11-15 09:40 | Physical Therapy Daily Note ---
PT Daily Note-Current Subjective Patient is on commode. RN present. Pain Numeric Pain Scale: 0-No Pain Location: No Pain Reported Mental Status Patient Orientation: Confused Attachments: IV Transfers Functional [place] Measure 0=Not Assessed/NA 4=Minimal Assistance 1=Total Assistance 5=Supervision or Setup 2=Maximal Assistance 6=Modified [place] 3=Moderate Assistance 7=Complete IndependenceIRFPAI Quality Coding Scale 6 Independent with activity with or without an assistive device 5 Patient requires set up or clean up by helper. Patient completes activity by themselves 4 Supervision or touching assist (CGA). [place] provide cues , steadying assist 3 The helper provides less than half the effort to complete the activity 2 The helper provides more than half the effort to complete the activity 1 Dependent. The helper does all the effort to complete an activity 7 Patient refused to complete or attempt activity 9 The patient did not perform the activity before the current illness or injury 88 Not attempted due to Medical conditions or safety concerns Transfers (B, C, W/C) (FIM): 2 Scootin Sit to/from Stand: 2 Patient is retropulsive in stand and with dynamic movement to initiate gait Weight Bearing Right Lower Extremity: Right Full Weight Bearing Left Lower Extremity: Left Weight Bearing/Tolerated Gait Training Gait (FIM): 1 Distance (FIM): 1=up to 49 ft Distance: 3' Gait Level of Assist: 1 Gait Persons Needed: 1 Gait Assistive Device: FWW Patient unable to advance right or left LE to ambulate. PT attempted to assist patient with weight shifting to advance LE's, however, patient "melted" and was extremely retropulsive requiring dependent assist to return to sit in recliner. Exercises Seated Therapy Exercises: Ankle pumps, Long arc quads Seated Reps: 15 (3 sets AAROM with PT performing 90% of all movement) Assessment Current Status: Poor Progress Patient is less lethargic this a.m., however, continues to require constant redirection to remain on task. Patient has difficulty following direction and is currently unsafe with gait training. PT Short Term Goals Short Term Goals Time Frame: Nov 18, 2017 Gait (FIM): 1 Distance (FIM): 1=up to 49 ft Gait Distance Comment: 10' Gait Level of Assist: 4 Gait Assistive Device: FWW Wheelchair distance (FIM): 6=746-15 ft PT Plan Treatment/Plan Treatment Plan: Continue Plan of Care Treatment Plan: Bed Mobility, Education, Functional Activity Ashley, Functional Strength, Gait, Safety, Therapeutic Exercise, Transfers Treatment Duration: Nov 18, 2017 Frequency: 11 times per week Estimated Hrs Per Day: .25 hour per day (15-30') Patient and/or Family Agrees t: Yes Discharge Recommendations Therapy D/C Recommendations: [facility] Placement, Nursing Home (TCU/NH) Time/GCodes Time In: 810 Time Out: 834 Total Billed Treatment Time: 24 Total Billed Treatment 1 visit FA 15 min EX 9 min TRACE GRAHAM PT Nov 15, 2017 09:40
[2017-11-15 12:00] VITALS: BP 135/63
--- NOTE | 2017-11-15 12:03 | Occupational Ther Daily Note ---
OT Current Status-Daily Note Subjective Pt sitting in chair, agrees to treatment. Pt states she is not currently having any pain. Mental Status/Objective Functional [place] Measure 0=Not Assessed/NA 4=Minimal Assistance 1=Total Assistance 5=Supervision or Setup 2=Maximal Assistance 6=Modified [place] 3=Moderate Assistance 7=Complete [place] ADL-Treatment Pt agrees to grooming tasks. Pt washed face with set up using bilateral UE. Pt combed hair with minimal assistance to reach back of head. Pt participated in bilateral UE exercises to increase strength and activity tolerance needed for ADLs and transfers. Pt performed AROM x10 reps at shoulder, elbow, wrist, and hands. Cues for proper exercise technique and cues to maintain attention to task. Pt moves very slowly and stops participating at times, requires cues for task completion. Pt sitting in chair with needs met after session. OT Short Term Goals Short Term Goals 1=Demonstrate adherence to instructed precautions during ADL tasks. 2=Patient will verbalize/demonstrate understanding of assistive devices/ modifications for ADL. 3=Patient will improve strength/tolerance for activity to enable patient to perform ADL's. OT Metal [employer]isher Goals Correction Goals Time Frame: Dec 02, 2017 Eating (FIM): 6 Grooming(FIM): 6 Bathing(FIM): 6 Upper Body Dressing(FIM): 6 Lower Body Dressing(FIM): 6 Toileting(FIM): 6 Toilet/Commode Transfer(FIM): 6 Tub Transfer(FIM): 6 Shower Transfer(FIM): 6 Additional Goals: 2-Verbalize Understanding, 3-ImproveStrength/Ashley 1=Demonstrate adherence to instructed precautions during ADL tasks. 2=Patient will verbalize/demonstrate understanding of assistive devices/ modifications for ADL. 3=Patient will improve strength/tolerance for activity to enable patient to perform ADL's. OT Education/Plan Problem List/Assessment Pt would benefit from skilled OT to increase her independence in basic self care and to decrease caregiver burden. Discharge Recommendations Plan/Recommendations: Continue POC Treatment Plan/Plan of Care Patient would benefit from OT for education, treatment and training to promote independence in ADL's, mobility, safety and/or upper extremity function for ADL' s. Plan of Care: ADL Retraining, Functional Mobility, UE Funct Exercise/Act Treatment Duration: Dec 02, 2017 Frequency: 5 times per week Estimated Hrs Per Day: .5 hour per day Agreement: Yes Rehab Potential: Fair Time/GCodes Start Time: 11:29 Stop Time: 11:41 Total Time Billed (hr/min): 12 Billed Treatment Time 1 visit, EX(12minutes) SANTOS RODRIGUEZ OT Nov 15, 2017 12:03
--- NOTE | 2017-11-15 13:20 | Physical Therapy Daily Note ---
PT Daily Note-Current Subjective Patient in recliner and states, "I don't want anymore therapy. I have had it 2 times today and I'm done." PT highly encourage patient to participate and she reluctantly agrees. Pain Numeric Pain Scale: 8 Location: Left Location Body Site: Hip Pain Description: Acute Comment: FLACC Mental Status Patient Orientation: Confused, [place] Transfers Functional [place] Measure 0=Not Assessed/NA 4=Minimal Assistance 1=Total Assistance 5=Supervision or Setup 2=Maximal Assistance 6=Modified [place] 3=Moderate Assistance 7=Complete IndependenceIRFPAI Quality Coding Scale 6 Independent with activity with or without an assistive device 5 Patient requires set up or clean up by helper. Patient completes activity by themselves 4 Supervision or touching assist (CGA). [place] provide cues , steadying assist 3 The helper provides less than half the effort to complete the activity 2 The helper provides more than half the effort to complete the activity 1 Dependent. The helper does all the effort to complete an activity 7 Patient refused to complete or attempt activity 9 The patient did not perform the activity before the current illness or injury 88 Not attempted due to Medical conditions or safety concerns Transfers (B, C, W/C) (FIM): 1 Scootin Sit to/from Stand: 1 Patient is retropulsive with sit to stand from recliner requiring dependent assist. Weight Bearing Right Lower Extremity: Right Full Weight Bearing Left Lower Extremity: Left Weight Bearing/Tolerated Gait Training Gait (FIM): 1 Distance (FIM): 1=up to 49 ft Distance: 3' Gait Level of Assist: 1 Gait Persons Needed: 1 Gait Assistive Device: FWW Patient unable to demonstrate bilateral foot clearance and will attempt to scoot her feet. Patient demonstrates extreme right lean in stand with FWW and went weight requiring dependent assist to return safely to recliner. Exercises Seated Therapy Exercises: Ankle pumps, Long arc quads Seated Reps: 15 (PROM (patient would not/could not actively assist)) Assessment Current Status: Poor Progress Patient continues to require dependent assist with therapy. Patient was more alert upon PT arrival and declined in alertness during treatment. PT will continue to address goals and increase activity as tolerated by patient. PT Short Term Goals Short Term Goals Time Frame: Nov 18, 2017 Gait (FIM): 1 Distance (FIM): 1=up to 49 ft Gait Distance Comment: 10' Gait Level of Assist: 4 Gait Assistive Device: FWW Wheelchair distance (FIM): 2=014-93 ft PT Plan Treatment/Plan Treatment Plan: Continue Plan of Care Treatment Plan: Bed Mobility, Education, Functional Activity Ashley, Functional Strength, Gait, Safety, Therapeutic Exercise, Transfers Treatment Duration: Nov 18, 2017 Frequency: 11 times per week Estimated Hrs Per Day: .25 hour per day (15-30') Patient and/or Family Agrees t: Yes Discharge Recommendations Therapy D/C Recommendations: [facility] Placement, [facility] (TCU/NH) Time/GCodes Time In: 1255 Time Out: 1312 Total Billed Treatment Time: 17 Total Billed Treatment 1 visit FA 17 min TRACE GRAHAM PT Nov 15, 2017 13:20
[2017-11-15] MEDS: HYDROcodone/APAP 5 MG/325 MG (LORTAB) TAB PO PRN (14:36)
[2017-11-15 15:31] VITALS: BP 148/67
[2017-11-15 19:16] VITALS: BP 113/57
[2017-11-15] MEDS: QUEtiapine 25 MG (SEROquel) TAB IMMEDIATE RELEASE PO SCH (21:01)
[2017-11-15] MEDS: SIMvastatin 20 MG (ZOCOR) TAB PO SCH (21:01)
[2017-11-16 00:05] VITALS: BP 134/68
[2017-11-16] MEDS: HYDROcodone/APAP 5 MG/325 MG (LORTAB) TAB PO PRN (03:24)
[2017-11-16 04:10] VITALS: BP 141/63
[2017-11-16 05:59] LABS: BASOPHILS % (AUTO) 0 % (0-10); EOSINOPHILS # (AUTO) 0.2 10^3/uL (0.0-0.3); EOSINOPHILS % (AUTO) 3 % (0-10); HEMATOCRIT 24 % (35-52); HEMOGLOBIN 7.9 G/DL (11.5-16.0); LYMPHOCYTES # (AUTO) 2.1 X 10^3 (1.0-4.0); LYMPHOCYTES % (AUTO) 23 % (12-44); MEAN CORPUSCULAR HEMOGLOBIN 32 PG (25-34); MEAN CORPUSCULAR HGB CONC 34 G/DL (32-36); MEAN CORPUSCULAR VOLUME 96 FL (80-99); MEAN PLATELET VOLUME 10.1 FL (7.4-10.4); MONOCYTES # (AUTO) 1.1 X 10^3 (0.0-1.0); MONOCYTES % (AUTO) 12 % (0-12); NEUTROPHILS # (AUTO) 5.5 X 10^3 (1.8-7.8); NEUTROPHILS % (AUTO) 62 % (42-75); PLATELET COUNT 224 10^3/uL (130-400); RED BLOOD COUNT 2.46 10^6/uL (4.35-5.85); RED CELL DISTRIBUTION WIDTH 12.9 % (10.0-14.5)
[2017-11-16] MEDS: LEVOTHYROXINE 25 MCG (LEVOTHROID) TAB PO SCH (06:17)
[2017-11-16] MEDS: CEFEPIME INJECTION 2,000 MG in D5W 50 ML IVPB SOLUTION 50 ML IV SCH (06:17)
[2017-11-16] MEDS: PANTOPRAZOLE 20 MG TABLET (PROTONIX) PO SCH (06:17)
[2017-11-16 06:23] LABS: BUN/CREATININE RATIO 13; CALCIUM 8.3 MG/DL (8.5-10.1); CARBON DIOXIDE 23 MMOL/L (21-32); CHLORIDE 107 MMOL/L (98-107); CREATININE SERUM 0.68 MG/DL (0.60-1.30); GFR ESTIMATED > 60; GLUCOSE 90 MG/DL (70-105); MAGNESIUM 1.9 MG/DL (1.8-2.4); POTASSIUM 3.3 MMOL/L (3.6-5.0); SODIUM 139 MMOL/L (135-145)
--- NOTE | 2017-11-16 07:52 | Progress Note (SOAP) ---
Subjective Review of Systems Date Seen by Provider: Nov 16, 2017 Time Seen by Provider: 08:55 Objective Exam Last Set of Vital Signs Vital Signs Date Time Temp Pulse Resp B/P (MAP) Pulse Ox O2 Delivery O2 Flow Rate FiO2 11/16/17 05:07 99.0 11/16/17 04:10 75 17 141/63 (89) 96 Room Air 11/12/17 07:44 2.00 Capillary Refill : Less Than 3 SecondsLess Than 3 Seconds I&O Intake and Output 11/16/17 00:00 Intake Total 1800 ml Output Total 1010 ml Balance 790 ml Intake Oral 1700 ml IV Total 100 ml Output Urine Total 1010 ml # Voids 3 # Bowel Movements 1 Results/Procedures Lab Laboratory Tests 11/16/17 05:04: White Blood Count 9.0, Red Blood Count 2.46L, Hemoglobin 7.9L, Hematocrit 24L, Mean Corpuscular Volume 96, Mean Corpuscular Hemoglobin 32, Mean Corpuscular Hemoglobin Concent 34, Red Cell Distribution Width 12.9, Platelet Count 224, Mean Platelet Volume 10.1, Neutrophils (%) (Auto) 62, Lymphocytes (%) (Auto) 23 , Monocytes (%) (Auto) 12, Eosinophils (%) (Auto) 3, Basophils (%) (Auto) 0, Neutrophils # (Auto) 5.5, Lymphocytes # (Auto) 2.1, Monocytes # (Auto) 1.1H, Eosinophils # (Auto) 0.2, Basophils # (Auto) 0.0, Sodium Level 139, Potassium Level 3.3L, Chloride Level 107, Carbon Dioxide Level 23, Anion Gap 9, Blood Urea Nitrogen 9, Creatinine 0.68, Estimat Glomerular Filtration Rate > 60, BUN/ Creatinine Ratio 13, Glucose Level 90, Calcium Level 8.3L, Magnesium Level 1.9, C-Reactive Protein High Sensitivity 9.33H Microbiology 11/14/17 Blood Culture - Preliminary, Resulted No growth 11/14/17 Influenza Types A,B Antigen (FERN) - Final, Complete 11/14/17 Urine Culture - Preliminary, Resulted NO GROWTH Radiology CXR 11/14/17 shows increased bibasilar infiltrate or atelectasis compared to two days ago Assessment/Plan Assessment/Plan Plan 77 yo F admitted for Acute left hip fracture 1. Left hip fracture s/p ORIF today (11/10/17) - Management per Ortho - Hgb normal, VS stable - Resumed anti coagulation yester11/12 -planning on IRF 11/13 - Hold on transferred to IRF due to pneumonia -Suspect transfer will occur either Tuesday or Tuesday 11/14 -continue eliquis for chronic afib; pt not able to go to IRF today as she remains febrile as well as confused and lethargic 11/15 -continue PT as tolerated, pt currently with sepsis secondary to PNA, improved over yesterday after abx changed but will require an inpatient level of care and IV abx for treatment of HCAP for several more days before ready to transfer to IRF -patient may potentially be ready for IRF on afternoon, or more likely on Tuesday 2. Pneumonia left lower lobe, Sepsis -Day number 2 Rocephin 11/14 -per radiology report on 11/12 pt had possible minimal developing left basilar infiltrate and was started on rocephin -given that pt did not come in with any s/s of illness, and she continues to have fevers despite rocephin, will barnett culture, check for influenza, stop rocephin and start cefepime for improved coverage for presumed HCAP 11/15 -repeat CXR shows worsening bibasilar infiltrates -Day 2 Cefepime for HCAP -afebrile for ~36 hours; WBC now trending down 12.2 --> 7.8 -CRP 16.7 --> 11.73, will continue to trend 3. Anemia--felt to be dilutional -Will hold on IV fluids since she is taking oral well -Plan on rechecking CBC in the morning of November 1411/14 -Hgb 8.9, improved from yesterday 7.9 -recheck in AM 11/15 -Hgb 8.6, stable from yesterday 4. Left Knee Pain: Acute vs old fracture of patella 5. Dyspnea likely 2/2 atelectasis - Encourage IS, titrate oxygen as tolerated - Spoke with PT today to get patient moving 11/12 improved 11/14 -continues to attempt to work with PT, SOB improving but still coughing and febrile. CXR and panculture, abx changed as outlined above 11/15 -no complaints of SOB today 6. HTN: - Will continue to monitor 11/14 -stable on current regimen 7. Chronic Afib 11/15 -eliquis for anticoagulation 8. Hyponatremia 11/14 -mild, Na 133, recheck in AM 11/15 -resolved 9. Hypocalcemia -mild, Ca 8.2, recheck in AM 11/15 -stable 10. Low platelets -121 on admission, now resolved and 133, recheck in AM 11/15 -stable, will continue to follow 11. Confusion 11/14 -not improved per nursing staff from previous days -panculture to rule out infectious cause and escalate abx therapy at this time -will start seroquel 25 mg at HS, as pt has been very confused and agitated at times, including pulling out her IV lines 11/15 -suspect altered mental status secondary to sepsis secondary to HCAP -appears to be improving with change in abx therapy yesterday; pt still more confused than her baseline, but improving -pt on 2 mg alprazolam TID; dose was decreased to 1 mg yesterday and has been held by nursing staff several times due to somnolence. will decrease to 0.5 mg and hold for somnolence, but also must take into account the potential for benzo withdrawal and will monitor closely for this -continue abx Patient appears improved over yesterday. Influenza negative but CXR suggests worsening infiltrate; abx broadened yesterday to Cefepime 2 grams Q12H and pt appears to be responding well -- more alert, afebrile, CRP and WBC trending down. No growth to date on cultures. Patient with sepsis secondary to HCAP. Continue PT, but patient will not be ready for IRF until likely the end of the week, when she has had more time for her sepsis to be treated and resolve. FEN: Heart Healthy Diet DVT PPX: Eliquis Dispo: Continue admission, Patient has been accepted for IRF, but at this time remains acutely ill and requires an inpatient level of care for her illness CODE STATUS: DNR Clinical Quality Measures DVT/VTE Risk/Contraindication: VTE Addressed: Yes VTE Present on Admission: No Risk Factor Score Per Nursin RFS Level Per Nursing on Admit: 4+=Very High Other: Pt restarted on home eliquis as soon as okay'ed by surgical team post op DVT/VTE Prophylaxis Comfirm.Dx Therapy overlap <5days: Scheduled for Surgery MEENA KESSLER DO Nov 16, 2017 07:52
[2017-11-16 08:00] VITALS: BP 118/56
[2017-11-16] MEDS ORDERED: KCL 20 MEQ TAB (K-DUR) PO NR (08:00)
[2017-11-16] MEDS: FLECAINIDE 100 MG (TAMBOCOR) TAB PO SCH (09:34)
[2017-11-16] MEDS: APIXABAN 5 MG (ELIQUIS) TABLET PO SCH (09:37)
[2017-11-16] MEDS: meTOprolol TARTRATE 25 MG (LOPRESSOR) TABLET PO SCH (09:38)
[2017-11-16] MEDS: FAMOTIDINE 20 MG (PEPCID) TABLET PO SCH (09:38)
[2017-11-16] MEDS: buPROPion SR 150 MG (WELLBUTRIN SR) TAB PO SCH (09:38)
[2017-11-16] MEDS: DOCUSATE SODIUM 100 MG (COLACE) CAP PO SCH (09:39)
[2017-11-16] MEDS: ALPRAZolam 1 MG (XANAX) TAB PO SCH ×2 (09:40→14:25)
--- NOTE | 2017-11-16 09:49 | Physical Therapy Daily Note ---
PT Daily Note-Current Subjective Pt laying Supine in bed upon arrival. Pt reports pain of 8/10 in L hip but agrees to Supine Ex in bed while waiting for pain med, Nurse to bring shortly. Pain Numeric Pain Scale: 8 Location: Left Location Body Site: Hip Pain Description: Ache Mental Status Patient Orientation: Person, Place Attachments: IV Transfers Functional [place] Measure 0=Not Assessed/NA 4=Minimal Assistance 1=Total Assistance 5=Supervision or Setup 2=Maximal Assistance 6=Modified [place] 3=Moderate Assistance 7=Complete IndependenceIRFPAI Quality Coding Scale 6 Independent with activity with or without an assistive device 5 Patient requires set up or clean up by helper. Patient completes activity by themselves 4 Supervision or touching assist (CGA). [place] provide cues , steadying assist 3 The helper provides less than half the effort to complete the activity 2 The helper provides more than half the effort to complete the activity 1 Dependent. The helper does all the effort to complete an activity 7 Patient refused to complete or attempt activity 9 The patient did not perform the activity before the current illness or injury 88 Not attempted due to Medical conditions or safety concerns Weight Bearing Right Lower Extremity: Right Full Weight Bearing Left Lower Extremity: Left Weight Bearing/Tolerated Exercises Supine Ex: Ankle pumps, Quad Set, Heel Slides, Straight leg raise, Hip abd/add Supine Reps: 15 Treatments Pt reports wanting pain med before leaving room for PT. Pt completes Supine Ex in bed while waiting for pain med. IT FIELD TECHNICIAN gives pt ed. over need for deep breathing & using Spirometer for breathing to help with Pneumonia. arrives to check pt and advises maybe discharge on Tuesday. Pt resting in bed at end of tx with all needs met. Assessment Current Status: Good Progress Pt completes Supine Ex in bed AAROM for LLE and AROM for RLE. Pt less lethargic today. PT Short Term Goals Short Term Goals Time Frame: Nov 18, 2017 Gait (FIM): 1 Distance (FIM): 1=up to 49 ft Gait Distance Comment: 10' Gait Level of Assist: 4 Gait Assistive Device: FWW Wheelchair distance (FIM): [phone] ft PT Plan Problem List Problem List: Activity Tolerance, Functional Strength, Safety, Balance, Gait, Transfer, Bed Mobility Treatment/Plan Treatment Plan: Continue Plan of Care Treatment Plan: Bed Mobility, Education, Functional Activity Ashley, Functional Strength, Gait, Safety, Therapeutic Exercise, Transfers Treatment Duration: Nov 18, 2017 Frequency: 11 times per week Estimated Hrs Per Day: .25 hour per day (15-30') Patient and/or Family Agrees t: Yes Safety Risks/Education Patient Education: Transfer Techniques, Correct Positioning, Disease Process, Safety Issues Teaching Recipient: Patient Teaching Methods: Discussion Response to Teaching: Verbalize Understanding Time/GCodes Time In: 840 Time Out: 905 Total Billed Treatment Time: 25 Total Billed Treatment 1, EX x2 (25m) CHARITY TRAVIS IT FIELD TECHNICIAN Nov 16, 2017 09:49
--- NOTE | 2017-11-16 14:31 | Occupational Ther Daily Note ---
OT Current Status-Daily Note Subjective Pt in bed, states she is tired today. Pt reports 5/10 pain in left hip. Mental Status/Objective Functional [place] Measure 0=Not Assessed/NA 4=Minimal Assistance 1=Total Assistance 5=Supervision or Setup 2=Maximal Assistance 6=Modified [place] 3=Moderate Assistance 7=Complete [place] Other Treatment Pt declined OOB activity, states she just returned to bed and is too tired. Pt agrees to UE exercises in supine. Pt performed bilateral UE exercises to increase strength and activity tolerance needed for ADLs and transfers. Pt completed AROMx10 reps at all joints with rest breaks between sets. Pt requires assist to track reps and maintain attention to task. Pt resting in bed with needs met after session. OT Short Term Goals Short Term Goals 1=Demonstrate adherence to instructed precautions during ADL tasks. 2=Patient will verbalize/demonstrate understanding of assistive devices/ modifications for ADL. 3=Patient will improve strength/tolerance for activity to enable patient to perform ADL's. OT Director Of Orthopedics Goals Director Of Orthopedics Goals Time Frame: Dec 02, 2017 Eating (FIM): 6 Grooming(FIM): 6 Bathing(FIM): 6 Upper Body Dressing(FIM): 6 Lower Body Dressing(FIM): 6 Toileting(FIM): 6 Toilet/Commode Transfer(FIM): 6 Tub Transfer(FIM): 6 Shower Transfer(FIM): 6 Additional Goals: 2-Verbalize Understanding, 3-ImproveStrength/Ashley 1=Demonstrate adherence to instructed precautions during ADL tasks. 2=Patient will verbalize/demonstrate understanding of assistive devices/ modifications for ADL. 3=Patient will improve strength/tolerance for activity to enable patient to perform ADL's. OT Education/Plan Problem List/Assessment Pt would benefit from skilled OT to increase her independence in basic self care and to decrease caregiver burden. Discharge Recommendations Plan/Recommendations: Continue POC Treatment Plan/Plan of Care Patient would benefit from OT for education, treatment and training to promote independence in ADL's, mobility, safety and/or upper extremity function for ADL' s. Plan of Care: ADL Retraining, Functional Mobility, UE Funct Exercise/Act Treatment Duration: Dec 02, 2017 Frequency: 5 times per week Estimated Hrs Per Day: .5 hour per day Agreement: Yes Rehab Potential: Fair Time/GCodes Start Time: 13:22 Stop Time: 13:35 Total Time Billed (hr/min): 13 Billed Treatment Time 1 visit, EX(13minutes) SANTOS RODRIGUEZ OT Nov 16, 2017 14:31
--- NOTE | 2017-11-16 14:33 | Physical Therapy Daily Note ---
PT Daily Note-Current Subjective Pt laying Supine in bed visiting with Swing Bed Nurse upon arrival. Pt agrees to PT. Pain Location: No Pain Reported Mental Status Patient Orientation: Person, Confused, Place Transfers Functional [place] Measure 0=Not Assessed/NA 4=Minimal Assistance 1=Total Assistance 5=Supervision or Setup 2=Maximal Assistance 6=Modified [place] 3=Moderate Assistance 7=Complete IndependenceIRFPAI Quality Coding Scale 6 Independent with activity with or without an assistive device 5 Patient requires set up or clean up by helper. Patient completes activity by themselves 4 Supervision or touching assist (CGA). [place] provide cues , steadying assist 3 The helper provides less than half the effort to complete the activity 2 The helper provides more than half the effort to complete the activity 1 Dependent. The helper does all the effort to complete an activity 7 Patient refused to complete or attempt activity 9 The patient did not perform the activity before the current illness or injury 88 Not attempted due to Medical conditions or safety concerns Scootin Supine to/from Sit: 4 Sit to/from Stand: 4 Weight Bearing Right Lower Extremity: Right Full Weight Bearing Left Lower Extremity: Left Weight Bearing/Tolerated Gait Training Distance (FIM): 1=up to 49 ft Distance: 15' Gait Level of Assist: 4 Gait Persons Needed: 1 Gait Assistive Device: FWW Pt needs repeated VC for sequencing and hand/foot placement during toilet transfer. Pt's shannan is very slow, no LOB. Treatments CUSTOMER SERVICE CLERK gives pt some pt ed on ARU since B Nurse had been talking to pt about this subject. CUSTOMER SERVICE CLERK explained what is done on ARU vs what pt is doing presently. Pt then reports needing to use restroom and transfers Supine to EOB at [facility] with Min A then EOB to Standing at [facility]-Min A. Pt ambulates to toilet to use then back to recliner to rest. Pt given several VC during toilet transfer for positioning and sequencing purposes. Pt resting in recliner at end of tx with all needs met. Assessment Current Status: Good Progress Pt is confused at times and has difficulty following directions when given. Pt fatigues easy and requires rest break. PT Short Term Goals Short Term Goals Time Frame: Nov 18, 2017 Gait (FIM): 1 Distance (FIM): 1=up to 49 ft Gait Distance Comment: 10' Gait Level of Assist: 4 Gait Assistive Device: FWW Wheelchair distance (FIM): 5=155-49 ft PT Plan Problem List Problem List: Activity Tolerance, Functional Strength, Safety, Balance, Gait, Transfer, Bed Mobility Treatment/Plan Treatment Plan: Continue Plan of Care Treatment Plan: Bed Mobility, Education, Functional Activity Ashley, Functional Strength, Gait, Safety, Therapeutic Exercise, Transfers Treatment Duration: Nov 18, 2017 Frequency: 11 times per week Estimated Hrs Per Day: .25 hour per day (15-30') Patient and/or Family Agrees t: Yes Safety Risks/Education Patient Education: Gait Training, Transfer Techniques, Correct Positioning, Safety Issues Teaching Recipient: Patient Teaching Methods: Discussion Response to Teaching: Verbalize Understanding Time/GCodes Time In: 1350 Time Out: 1420 Total Billed Treatment Time: 30 Total Billed Treatment 1, FA x2 (30m) CHARITY TRAVIS CUSTOMER SERVICE CLERK Nov 16, 2017 14:33
--- NOTE | 2017-11-16 16:39 | Discharge Summary ---
Diagnosis/Chief Complaint Date of Admission Nov 09, 2017 at 01:40 Date of Discharge Nov 16, 2017 at 14:37 Admission Diagnosis Admission Diagnosis Acute Left Hip Fracture Discharge Diagnosis 77 yo F admitted for Acute left hip fracture 1. Left hip fracture s/p ORIF today (11/10/17) - Management per Ortho - Hgb normal, VS stable - Resumed anti coagulation yester11/12 -planning on IRF 11/13 - Hold on transferred to IRF due to pneumonia -Suspect transfer will occur either Tuesday or Tuesday 11/14 -continue eliquis for chronic afib; pt not able to go to IRF today as she remains febrile as well as confused and lethargic 11/15 -continue PT as tolerated, pt currently with sepsis secondary to PNA, improved over yesterday after abx changed but will require an inpatient level of care and IV abx for treatment of HCAP for several more days before ready to transfer to IRF -patient may potentially be ready for IRF on afternoon, or more likely on Thursday 11/16 -given that patient is improving daily, but is not ready for IRF, will discharge to swing bed today to continue IV abx, continue daily therapy 2. Pneumonia left lower lobe, Sepsis -Day number 2 Rocephin 11/14 -per radiology report on 11/12 pt had possible minimal developing left basilar infiltrate and was started on rocephin -given that pt did not come in with any s/s of illness, and she continues to have fevers despite rocephin, will barnett culture, check for influenza, stop rocephin and start cefepime for improved coverage for presumed HCAP 11/15 -repeat CXR shows worsening bibasilar infiltrates -Day 2 Cefepime for HCAP -afebrile for ~36 hours; WBC now trending down 12.2 --> 7.8 -CRP 16.7 --> 11.73, will continue to trend 11/16 -Day 3 Cefepime for HCAP -remains afebrile, on room air with stable VS -CRP trending down, 16.7 --> 11.73 --> 9.33 3. Anemia -Will hold on IV fluids since she is taking oral well -Plan on rechecking CBC in the morning of November 1411/14 -Hgb 8.9, improved from yesterday 7.9 -recheck in AM 11/15 -Hgb 8.6, stable from yesterday 11/16 -Hgb back down to 7.9, not dilutional as patient is not getting any IV fluids; currently asymptomatic and last time was 7.9 racquel by 1 gram in 24 hours so will recheck in AM 4. Left Knee Pain: Acute vs old fracture of patella 5. Dyspnea likely 2/2 atelectasis - Encourage IS, titrate oxygen as tolerated - Spoke with PT today to get patient moving 11/12 improved 11/14 -continues to attempt to work with PT, SOB improving but still coughing and febrile. CXR and panculture, abx changed as outlined above 11/15 -no complaints of SOB today 11/16 -no complaint of SOB today 6. HTN: - Will continue to monitor 11/14 -stable on current regimen 7. Chronic Afib 11/15 -eliquis for anticoagulation 11/16 -continue eliquis 8. Hyponatremia 11/14 -mild, Na 133, recheck in AM 11/15 -resolved 9. Hypocalcemia -mild, Ca 8.2, recheck in AM 11/15 -stable 10. Low platelets -121 on admission, now resolved and 133, recheck in AM 11/15 -stable, will continue to follow 11. Confusion 11/14 -not improved per nursing staff from previous days -panculture to rule out infectious cause and escalate abx therapy at this time -will start seroquel 25 mg at HS, as pt has been very confused and agitated at times, including pulling out her IV lines 11/15 -suspect altered mental status secondary to sepsis secondary to HCAP -appears to be improving with change in abx therapy yesterday; pt still more confused than her baseline, but improving -pt on 2 mg alprazolam TID; dose was decreased to 1 mg yesterday and has been held by nursing staff several times due to somnolence. will decrease to 0.5 mg and hold for somnolence, but also must take into account the potential for benzo withdrawal and will monitor closely for this -continue abx 11/16 -continues to show daily improvement; suspect that patient experienced altered mental status secondary to sepsis from HCAP -alprazolam has been decreased to 0.5 mg TID and hold for somnolence, but has not been discontinued to avoid benzo withdrawal, but at this time do not feel that pt's confusion and altered mental status were related to that, but to her sepsis Patient continues to improve, but requires IV antibiotics for a full 7 day course and her hemoglobin requires close monitoring as it has dropped again. Given these limitations, she is not yet ready for IRF, but is able to be discharged to a swing bed today for continuation of her IV antibiotics and participation in therapy as able, with plan to discharge from swing bed to IRF when ready, likely end of the weekend if things continue in the current fashion. FEN: Heart Healthy Diet DVT PPX: Eliquis Dispo: Discharge to swing bed, will continue IV antibiotics, PT and lab monitoring. CODE STATUS: DNR Chief Complaint/HPI Chief Complaint/HPI This AM states that her pain is not well controlled. IV meds only last a short time then she is having alot of pain in her left hip and knee. Patient denies any chest pain, palpitations, or shortness of breath or cough. Discharge Summary-Simple/Stand Procedures Left Hip Repair Consultations Dr. Solo Discharge Physical Examination Allergies: Coded Allergies: morphine (Verified Adverse Reaction, Unknown, N/V, 12/03/09) Uncoded Allergies: TAPE (Allergy, Unknown, RASH, 08/12/08) Vitals & I&Os Vital Sign - Last 12Hours Date Time Temp Pulse Resp B/P (MAP) Pulse Ox O2 Delivery O2 Flow Rate FiO2 11/16/17 08:20 Room Air 11/16/17 08:00 99.7 75 20 118/56 (76) 97 11/12/17 07:44 2.00 Intake and Output 11/16/17 00:00 Intake Total 1680 ml Output Total 1010 ml Balance 670 ml General Appearance: Alert, Oriented X3, Cooperative, No Acute Distress HEENT: Atraumatic, EOMI, Mucous Memb Moist/[place] Respiratory: Clear to Auscultation, Normal Air Movement Cardiovascular: Normal S1, Normal S2, No Murmurs, Other (irregularly irregular) Abdominal: Normal Bowel Sounds, Soft, No Tenderness, No Hepatosplenomegaly, No Masses Extremities: No Clubbing, No Cyanosis, No Edema, Normal Pulses, No Tenderness/ Swelling Skin: No Rashes, No Significant Lesion Neuro: Normal Speech, Normal Tone, Sensation Intact, Cranial Nerves 3-12 NL Psych/Mental Status: Mental Status NL, Mood NL Hospital Course See final discharge diagnosis. Labs Laboratory Tests Test 11/14/17 14:25 11/15/17 06:50 11/16/17 05:04 Range/Units Urine Color YELLOW Urine Clarity CLEAR Urine pH 6 5-9 Urine Specific [place] 1.010 L 1.016-1.022 Urine Protein 1+ H NEGATIVE Urine Glucose (UA) NEGATIVE NEGATIVE Urine Ketones NEGATIVE NEGATIVE Urine Nitrite NEGATIVE NEGATIVE Urine Bilirubin NEGATIVE NEGATIVE Urine Urobilinogen 1 NORMAL MG/DL Urine Leukocyte Esterase NEGATIVE NEGATIVE Urine RBC (Auto) NEGATIVE NEGATIVE Urine RBC RARE /HPF Urine WBC 0-2 /HPF Urine Squamous Epithelial Cells 0-2 /HPF Urine Crystals NONE /LPF Urine Bacteria TRACE /HPF Urine Casts NONE /LPF Urine Mucus NEGATIVE /LPF Urine Culture Indicated YES White Blood Count 7.8 9.0 4.3-11.0 10^3/uL Red Blood Count 2.67 L 2.46 L 4.35-5.85 10^6/uL Hemoglobin 8.6 L 7.9 L 11.5-16.0 G/DL Hematocrit 25 L 24 L 35-52 % Mean Corpuscular Volume 94 96 80-99 FL Mean Corpuscular Hemoglobin 32 32 25-34 PG Mean Corpuscular Hemoglobin Concent 34 34 32-36 G/DL Red Cell Distribution Width 12.6 12.9 10.0-14.5 % Platelet Count 207 224 130-400 10^3/uL Mean Platelet Volume 10.1 10.1 7.4-10.4 FL Neutrophils (%) (Auto) 66 62 42-75 % Lymphocytes (%) (Auto) 20 23 12-44 % Monocytes (%) (Auto) 11 12 0-12 % Eosinophils (%) (Auto) 3 3 0-10 % Basophils (%) (Auto) 1 0 0-10 % Neutrophils # (Auto) 5.2 5.5 1.8-7.8 X 10^3 Lymphocytes # (Auto) 1.6 2.1 1.0-4.0 X 10^3 Monocytes # (Auto) 0.9 1.1 H 0.0-1.0 X 10^3 Eosinophils # (Auto) 0.2 0.2 0.0-0.3 10^3/uL Basophils # (Auto) 0.0 0.0 0.0-0.1 10^3/uL Sodium Level 141 139 135-145 MMOL/L Potassium Level 3.2 L 3.3 L 3.6-5.0 MMOL/L Chloride Level 108 H 107 98-107 MMOL/L Carbon Dioxide Level 24 23 21-32 MMOL/L Anion Gap 9 9 5-14 MMOL/L Blood Urea Nitrogen 11 9 7-18 MG/DL Creatinine 0.70 0.68 0.60-1.30 MG/DL Estimat Glomerular Filtration Rate > 60 > 60 BUN/Creatinine Ratio 16 13 Glucose Level 96 90 70-105 MG/DL Calcium Level 8.2 L 8.3 L 8.5-10.1 MG/DL Magnesium Level 1.9 1.9 1.8-2.4 MG/DL C-Reactive Protein High Sensitivity 11.73 H 9.33 H 0.00-0.50 MG/DL Radiology Reviewed CXR 11/14/17 shows increased bibasilar infiltrate or atelectasis compared to two days ago Discussion & Recommendations see final discharge diagnosis Discharge Condition at discharge stable Instructions to patient/family Please see electronic discharge instructions given to patient. Discharge Medications Reviewed and agree with Discharge Medication list on patient's Discharge Instruction sheet Clinical Quality Measures DVT/VTE Risk/Contraindication: VTE Addressed: Yes VTE Present on Admission: No Risk Factor Score Per Nursin RFS Level Per Nursing on Admit: 4+=Very High Other: Pt restarted on home eliquis as soon as okay'ed by surgical team post op DVT/VTE Prophylaxis Comfirm.Dx Therapy overlap <5days: Scheduled for Surgery Copy Copies To 1: [facility]/MEENA ADAMS DO Nov 16, 2017 16:39
[2017-11-17] MEDS ORDERED: CEFEPIME 2 GM/D5W 50 ML IVPB IV SCH ×2 (07:00)
== END 2017-11-16 14:37 | disposition swing bed (61) | DRG 469 ==
LOC: EDUNIT# 00:10 → ER 00:12 → 4TH 01:40
PROVIDERS: ADMIT Family Medicine; ATTEND Family Medicine
PROC: 0SRS01A Replacement of Left Hip Joint, Femoral Surface with Metal Synthetic Substitute, Uncemented, Open Approach (ICD-10-PCS; principal; 2017-11-10 07:57)
DX: S72.012A Unspecified intracapsular fracture of left femur, initial encounter for closed fracture (principal); S50.312A Abrasion of left elbow, initial encounter; A41.9 Sepsis, unspecified organism; J18.9 Pneumonia, unspecified organism; J98.11 Atelectasis; M25.562 Pain in left knee; D62 Acute posthemorrhagic anemia; E87.1 Hypo-osmolality and hyponatremia; F41.9 Anxiety disorder, unspecified; I48.2 Chronic atrial fibrillation; E83.51 Hypocalcemia; Z66 Do not resuscitate; K59.00 Constipation, unspecified; F31.9 Bipolar disorder, unspecified; K44.9 Diaphragmatic hernia without obstruction or gangrene; W18.39XA Other fall on same level, initial encounter; Y92.009 Unspecified place in unspecified non-institutional (private) residence as the place of occurrence of the external cause; Z96.641 Presence of right artificial hip joint; Z79.01 Long term (current) use of anticoagulants
CPT/HCPCS: 36415; 51702; 71045; 72170; 73562; 80048; 80053; 81000; 83735; 84145; 84443; 85025; 85027; 85610; 85730; 86141; 86850; 86900; 86901; 87040; 87081; 87088; 87804; 96374; 96376

== ENCOUNTER 2017-11-16 14:28 | Inpatient (IN) | payer MEDICARE ==
[~2017-11-16] VITALS: Ht 165.1 cm; Wt 62.2 kg
[~2017-11-16 14:28] MED LIST changes: +ACET-168 PO; +ALPR2TAB6 PO; +APIX2.5T PO; +BUPR300T51 PO; +CHOL10007 PO; +DOCU-143 PO; +FERR325T24 PO; +FLEC50TA PO; +FURO20TA4 PO; +LEVO25TA5 PO; +METO-333 PO; +OMEP20CA12 PO; +POLY17PO6 PO; +PRAV40TA2 PO
[2017-11-16] MEDS ORDERED: IBUPROFEN 600 MG (MOTRIN) TAB PO PRN (14:45)
[2017-11-16] MEDS ORDERED: guaiFENesin/DM (ROBITUSSIN DM) 10 ML UDC PO PRN (14:45)
[2017-11-16] MEDS ORDERED: CATHETER FLUSH 10 ML SYR IV PRN (14:45)
[2017-11-16] MEDS ORDERED: LACTATED RINGERS 1,000 ML IV PRN (14:45)
[2017-11-16] MEDS ORDERED: fentaNYL INJECTION 100 MCG/2 ML AMP IV PRN (14:45)
[2017-11-16] MEDS ORDERED: ONDANSETRON 4 MG/2 ML (SDV) Z0FRAN IV PRN (14:45)
[2017-11-16] MEDS ORDERED: DOCUSATE SODIUM 100 MG (COLACE) CAP PO PRN (15:15)
[2017-11-16] MEDS: buPROPion SR 150 MG (WELLBUTRIN SR) TAB PO SCH (17:13)
[2017-11-16] MEDS: HYDROcodone/APAP 5 MG/325 MG (LORTAB) TAB PO PRN (17:13)
[2017-11-16 17:15] VITALS: BP 136/64
[2017-11-16] MEDS: DOCUSATE SODIUM 100 MG (COLACE) CAP PO SCH (20:43)
[2017-11-16] MEDS: SIMvastatin 20 MG (ZOCOR) TAB PO SCH (20:44)
[2017-11-16] MEDS: APIXABAN 5 MG (ELIQUIS) TABLET PO SCH (20:44)
[2017-11-16] MEDS: meTOprolol TARTRATE 25 MG (LOPRESSOR) TABLET PO SCH (20:44)
[2017-11-16] MEDS: ALPRAZolam 1 MG (XANAX) TAB PO SCH (20:44)
[2017-11-16] MEDS: QUEtiapine 25 MG (SEROquel) TAB IMMEDIATE RELEASE PO SCH (20:44)
[2017-11-17] VITALS (8 sets, daily range): BP systolic 120–138; BP diastolic 58–70
[2017-11-17 05:44] LABS: BASOPHILS # (AUTO) 0.1 10^3/uL (0.0-0.1); BASOPHILS % (AUTO) 1 % (0-10); EOSINOPHILS # (AUTO) 0.2 10^3/uL (0.0-0.3); EOSINOPHILS % (AUTO) 2 % (0-10); HEMATOCRIT 23 % (35-52); HEMOGLOBIN 7.7 G/DL (11.5-16.0); LYMPHOCYTES # (AUTO) 2.3 X 10^3 (1.0-4.0); LYMPHOCYTES % (AUTO) 24 % (12-44); MEAN CORPUSCULAR HEMOGLOBIN 32 PG (25-34); MEAN CORPUSCULAR HGB CONC 33 G/DL (32-36); MEAN CORPUSCULAR VOLUME 97 FL (80-99); MEAN PLATELET VOLUME 9.9 FL (7.4-10.4); MONOCYTES # (AUTO) 1.1 X 10^3 (0.0-1.0); MONOCYTES % (AUTO) 12 % (0-12); NEUTROPHILS # (AUTO) 5.8 X 10^3 (1.8-7.8); NEUTROPHILS % (AUTO) 62 % (42-75); PLATELET COUNT 242 10^3/uL (130-400); RED BLOOD COUNT 2.39 10^6/uL (4.35-5.85); RED CELL DISTRIBUTION WIDTH 13.5 % (10.0-14.5); WHITE BLOOD COUNT 9.4 10^3/uL (4.3-11.0)
[2017-11-17 06:02] LABS: BUN/CREATININE RATIO 13; CALCIUM 8.1 MG/DL (8.5-10.1); CARBON DIOXIDE 22 MMOL/L (21-32); CHLORIDE 107 MMOL/L (98-107); CREATININE SERUM 0.62 MG/DL (0.60-1.30); GFR ESTIMATED > 60; GLUCOSE 87 MG/DL (70-105); MAGNESIUM 1.9 MG/DL (1.8-2.4); POTASSIUM 3.6 MMOL/L (3.6-5.0); SODIUM 138 MMOL/L (135-145)
[2017-11-17] MEDS: buPROPion SR 150 MG (WELLBUTRIN SR) TAB PO SCH ×2 (06:03→18:19)
[2017-11-17] MEDS: LEVOTHYROXINE 25 MCG (LEVOTHROID) TAB PO SCH (06:03)
[2017-11-17] MEDS: PANTOPRAZOLE 20 MG TABLET (PROTONIX) PO SCH (06:03)
[2017-11-17] MEDS: HYDROcodone/APAP 5 MG/325 MG (LORTAB) TAB PO PRN ×2 (06:03→20:39)
[2017-11-17] MEDS: CEFEPIME INJECTION 2,000 MG in D5W 50 ML IVPB SOLUTION 50 ML IV SCH (06:04)
[2017-11-17 06:11] LABS: SMEAR SCAN COMMENT YES
[2017-11-17 06:21] LABS: BAND NEUTROPHILS 4 %; EOSINOPHILS % (MANUAL) 1 %; LYMPHOCYTES % (MANUAL) 23 %; MONOCYTES % (MANUAL) 9 %; NEUTROPHILS % (MANUAL) 63 %; NUCLEATED RED BLOOD CELLS 2; POLYCHROMASIA SLIGHT
--- NOTE | 2017-11-17 08:20 | History & Physicial (CHS) ---
HPI History of Present Illness: Patient admitted to swing bed 11/16/17 after an inpatient stay; was admitted 11/10 for acute left hip fracture, s/p ORIF on 11/11/[address] Solo. Post- operatively patient developed HCAP and became septic, requiring IV antibiotics and close monitoring. [facility] continuation of her IV antibiotics, as well as continuation of PT and OT, with the plan to discharge to inpatient rehab once she is well enough. This morning the patient is awake and alert and essentially back to her baseline. She is sitting up in the chair and reports that she is feeling overall okay, but is having pain in her left knee, and is also feeling very fatigued and somewhat short of breath; she is visibly having increased work of breathing with conversation. Discussed with patient that her hemoglobin has remained low, and that today her blood showed some immature red blood cells, which is an indication that her body is showing signs of trying to keep up with the demands on it and having difficulty because of her anemia, and that my recommendation is a blood transfusion. Risks and benefits were discussed with patient, and she is agreeable to transfusion; reports that she had 3 units transfused after her right hip surgery. Patient also would like her daughter updated - called and spoke with pt's daughter, Ivette Chong at [phone]. Source: patient, RN/, old records Exam Limitations: no limitations Date seen by provider: Nov 17, 2017 Time Seen by Provider: 09:30 Attending Physician Mariela Kessler Tracy L MD Consult Date of Admission Nov 16, 2017 at 14:38 Home Medications Home Medications Reviewed patient Home Medication Reconciliation Form Allergies Coded Allergies: morphine (Verified Adverse Reaction, Unknown, N/V, 12/03/09) Uncoded Allergies: TAPE (Allergy, Unknown, RASH, 08/12/08) [id number] Hx Patient Social History Marrital Status: Number of Children: 1 Number of living children: 1 Living Status: lives independently, alone Employed/Student: retired Alcohol Use: Denies Use Recreational Drug Use: No Smoking Status: Never a Smoker 2nd Hand Smoke Exposure: No Recent Foreign Travel: No Contact w/other who traveled: No Recent Hopitalizations: Yes (discharged from inpatient status) Recent Infectious Disease Expo: No Physical Abuse Screen: No Sexual Abuse: No Immunizations Up To Date Tetanus Booster (TDap): Unknown Date of Pneumonia Vaccine: Jul 24, 2010 Date of Influenza Vaccine: Jul 24, 2017 Past Medical History A fib Hypothyroidism Anxiety/Depression Blood transfusion Family Medical History Family History: FH: stroke 19 FATHER G8 SISTER Myocardial infarction 19 FATHER G8 BROTHER G8 BROTHER Review of Systems ([facility]) Constitutional: see HPI EENTM: no symptoms reported Respiratory: short of breath Cardiovascular: no symptoms reported Gastrointestinal: no symptoms reported Genitourinary: no symptoms reported Musculoskeletal: see HPI, joint pain Skin: no symptoms reported Psychiatric/Neurological: No Symptoms Reported Reviewed Test Results Reviewed Test Results Lab Laboratory Tests Test 11/17/17 05:10 Range/Units White Blood Count 9.4 4.3-11.0 10^3/uL Red Blood Count 2.39 L 4.35-5.85 10^6/uL Hemoglobin 7.7 L 11.5-16.0 G/DL Hematocrit 23 L 35-52 % Mean Corpuscular Volume 97 80-99 FL Mean Corpuscular Hemoglobin 32 25-34 PG Mean Corpuscular Hemoglobin Concent 33 32-36 G/DL Red Cell Distribution Width 13.5 10.0-14.5 % Platelet Count 242 130-400 10^3/uL Mean Platelet Volume 9.9 7.4-10.4 FL Neutrophils (%) (Auto) 62 42-75 % Lymphocytes (%) (Auto) 24 12-44 % Monocytes (%) (Auto) 12 0-12 % Eosinophils (%) (Auto) 2 0-10 % Basophils (%) (Auto) 1 0-10 % Neutrophils # (Auto) 5.8 1.8-7.8 X 10^3 Lymphocytes # (Auto) 2.3 1.0-4.0 X 10^3 Monocytes # (Auto) 1.1 H 0.0-1.0 X 10^3 Eosinophils # (Auto) 0.2 0.0-0.3 10^3/uL Basophils # (Auto) 0.1 0.0-0.1 10^3/uL Neutrophils % (Manual) 63 % Lymphocytes % (Manual) 23 % Monocytes % (Manual) 9 % Eosinophils % (Manual) 1 % Band Neutrophils 4 % Nucleated Red Blood Cells 2 Polychromasia SLIGHT Sodium Level 138 135-145 MMOL/L Potassium Level 3.6 3.6-5.0 MMOL/L Chloride Level 107 98-107 MMOL/L Carbon Dioxide Level 22 21-32 MMOL/L Anion Gap 9 5-14 MMOL/L Blood Urea Nitrogen 8 7-18 MG/DL Creatinine 0.62 0.60-1.30 MG/DL Estimat Glomerular Filtration Rate > 60 BUN/Creatinine Ratio 13 Glucose Level 87 70-105 MG/DL Calcium Level 8.1 L 8.5-10.1 MG/DL Magnesium Level 1.9 1.8-2.4 MG/DL C-Reactive Protein High Sensitivity 6.36 H 0.00-0.50 MG/DL Smear Scan YES Physical Exam-([facility]) Physical Exam Vital Signs VS - Last 72 Hours, by Label 11/16/17 11/16/17 11/16/17 11/17/17 17:15 20:00 21:00 00:47 Temp 99.1 98.2 98.8 Pulse 77 Resp 20 B/P (MAP) 136/64 (88) Pulse Ox 99 O2 Delivery Room Air Room Air 11/17/17 11/17/17 04:02 05:58 Temp 98.4 98.7 Pulse 80 Resp 20 B/P (MAP) 138/61 (86) Pulse Ox 95 O2 Delivery Room Air Capillary Refill : General Appearance: WD/WN, no apparent distress Eyes: Bilateral Eye Normal Inspection, Bilateral Eye PERRL, Bilateral Eye Conjunctivae Pale HEENT: PERRL/EOMI, normal ENT inspection, No scleral icterus (R), No scleral icterus (L), pale conjunctivae (R), pale conjunctivae (L), No photophobia Neck: non-tender, full range of motion, supple, normal inspection Respiratory: chest non-tender, lungs clear, normal breath sounds, no accessory muscle use, other (conversational dyspnea with visibile increased work of breathing) Cardiovascular: normal peripheral pulses, no edema, no gallop, no JVD, no murmur, irregularly irregular Peripheral Pulses: 2+ Radial Pulses (R), 2+ Radial Pulses (L) Gastrointestinal: normal bowel sounds, non tender, soft, no organomegaly, no pulsatile mass Back: normal inspection, no CVA tenderness Extremities: normal inspection, no pedal edema, no calf tenderness, normal capillary refill Neurologic/Psychiatric: proposal specialist II-XII nml as tested, alert, normal mood/affect, oriented x 3 Skin: warm/dry, pallor Lymphatic: no adenopathy Clinical Quality Measures DVT/VTE Risk/Contraindication: Risk Factor Score Per Nursin Copy Copies To 1: [facility] Assessment/Plan Assessment/Plan Admission Dx left hip fracture s/p ORIF on 11/11/17 Sepsis Health Care Acquired PNA Anemia Weakness General Debility Hypothyroidism Depression Anxiety Plan left hip fracture s/p ORIF on 11/11/1711/17 -continue PT/OT -patient has been accepted to IRF, plan to discharge to IRF when able to tolerate therapy and has completed abx Sepsis, Health Care Acquired PNA 11/17 -afebrile, Tmax 99.1. VSS on room air. -Day 4 Cefepime -cultures with no growth to date -WBC stable -CRP trending down: 16.7 -> 11.7 -> 9.3 -> 6.36 -recommend completing a full 7 days of IV abx Anemia 11/17 -Hgb 7.7 today, was 7.9 yesterday -pt also had 2 NRBC on peripheral smear done by lab; reports feeling very fatigued and short of breath, on exam is visibly tachypnic with conversation and quite pale -given patient is post operative, has afib, is recovering from sepsis, and is symptomatic from her anemia as outlined above, believe that patient would benefit significantly from transfusion, and she does meet the guidelines for transfusion of Hgb <8 in a hospitalized postoperative patient, as well as those for a symptomatic patient with a Hgb <10. Risks and benefits were discussed with patient and she is agreeable to transfusion. Reports she has required transfusion in the past, 3 units after her other hip surgery. -type and cross, transfuse 2 units, will premedicate with tylenol and benadryl, or have patient take dose of pain medication prior to transfusion if due since that contains tylenol and do not want to exceed 3g/24 hrs Weakness 11/17 -continue therapy with plans to discharge to IRF for more intensive therapy when ready General Debility 11/17 -continue therapy with plans to discharge to IRF for more intensive therapy when ready Hypothyroidism -continue home medication -TSH checked Tuesday, 3.38 Depression -continue home medication Anxiety -pt's home medication is 2 mg Xanax TID; this was decreased to 0.5 mg TID and hold for somnolence while patient was experiencing altered mental status secondary to her sepsis -patient's altered mental status has resolved, but find her dose to be quite significant for someone of her age, although likely she has been on for many years and required dose increases due to tolerance -patient feeling fine currently on the decreased dose, so will leave at 0.5 mg TID for now; if pt begins to feel anxious, she will let us know and we can adjust accordingly Discussed with patient, daughter, and social work that I strongly feel that patient would benefit from utilizing her swing bed status until we are certain that she will be able to tolerate the required therapies of inpatient rehab. At this time estimate that if patient continues on her current trajectory that she will likely be ready for IRF after completion of her IV abx on Tuesday, but if there is any question of her being able to get the full benefit from IRF, do feel that it would strongly benefit the patient to remain in swing bed 1-3 additional days for recovery from sepsis before transitioning to IRF. Patient lives at home alone, and her intention is to return to this, and successful IRF gives her the best chance at doing so, therefore in order to maximize her success in IRF, we must exercise caution and not send her before she is going to derive the most benefit. Do not anticipate that this would require much more time, if any, but do think it should be considered when decision is made to send patient to IRF. Discussed with social work, who spoke with IRF, patient 's bed will remain available when she is ready, whenever we determine that will be. FEN: Regular Diet DVT Ppx: Eliquis Dispo: Swing status, anticipate that patient will not be ready to go to IRF until Tuesday. MARIELA KESSLER DO Nov 17, 2017 08:20
[2017-11-17] MEDS: FAMOTIDINE 20 MG (PEPCID) TABLET PO SCH (09:20)
[2017-11-17] MEDS: DOCUSATE SODIUM 100 MG (COLACE) CAP PO SCH ×2 (09:20→20:39)
[2017-11-17] MEDS: FLECAINIDE 100 MG (TAMBOCOR) TAB PO SCH (09:20)
[2017-11-17] MEDS: ALPRAZolam 1 MG (XANAX) TAB PO SCH ×3 (09:21→20:40)
[2017-11-17] MEDS: meTOprolol TARTRATE 25 MG (LOPRESSOR) TABLET PO SCH ×2 (09:21→20:39)
[2017-11-17] MEDS: APIXABAN 5 MG (ELIQUIS) TABLET PO SCH ×2 (09:21→20:39)
--- NOTE | 2017-11-17 09:51 | Physical Therapy Evaluation ---
PT Evaluation-General Medical Diagnosis Admission Date Nov 16, 2017 at 14:38 Medical Diagnosis: left hip fracture Onset Date: Nov 10, 2017 Therapy Diagnosis Therapy Diagnosis: generalized weakness/debility Height/Weight Height (Feet): 5 Height (Inches): 5.00 Weight (Pounds): 137 Weight (Ounces): 1.0 Precautions Precautions/Isolations: Fall Prevention, Standard Precautions Weight Bear Status Right Lower Extremity: Right Full Weight Bearing Left Lower Extremity: Left Weight Bearing/Tolerated Referral Physician: Louie Reason for Referral: Evaluation/Treatment Medical History Pertinent Medical History: Atrial Fib, Hypothroidism Additional Medical History anxiety Current History s/p left hip hemiarthroplasty with restrictions per surgeon of no heel slides, no active/passive abduction, no active/passive IR Reviewed History: Yes Social History Home: Apartment Current Living Status: Alone Entry Into Home: Stairs With Railing PT Steps Into Home: 20 Prior/Core FIM Prior Level of Function Functional [place] Measure 0=Not Assessed/NA 4=Minimal Assistance 1=Total Assistance 5=Supervision or Setup 2=Maximal Assistance 6=Modified [place] 3=Moderate Assistance 7=Complete [place] Bed Mobility: 7 Transfers (B,C,W/C) (FIM): 7 Gait: 7 Locomotion: 7 PT Evaluation-Current Subjective Patient is in bed and much more alert and oriented on this date. Pain Numeric Pain Scale: 8 Location: Left Location Body Site: Hip Pain Description: Acute Objective Patient Orientation: Normal For Age Problem Solving: Fair ROM/Strength ROM Lower Extremities left LE hip precautions (anterior) right LE WNL Strenght Lower Extremities left knee flexion/extension 3/5; hip flexion NT; DF/PF 4/5 right knee flexion/extension 4/5; hip flexion NT; DF/PF 4/5 Integumentary/Posture Integumentary refer to nursing notes Bowel Incontinence: No Bladder Incontinence: No Posture WFL Neuromuscular (Tone, Coordination, Reflexes) grossly intact Sensory Vision: Wears Glasses Hearing: Functional Sensation Right Lower Extremit: Intact Sensation Left Lower Extremity: Intact Transfers Functional [place] Measure 0=Not Assessed/NA 4=Minimal Assistance 1=Total Assistance 5=Supervision or Setup 2=Maximal Assistance 6=Modified [place] 3=Moderate Assistance 7=Complete [place] Transfers (B, C, W/C) (FIM): 3 Scootin Rollin Supine to/from Sit: 4 Sit to/from Stand: 3 Sit to Lying (QC): 3 Lying to Sitting/Side of Bed(Q: 4 Sit to Stand (QC): 4 minimal to mod assist with transfers due to weakness and inactivity Gait Does the Patient Walk?: Yes Mode of Locomotion: Walk Anticipated Mode of Locomotion: Walk Gait (FIM): 1 Distance (FIM): 1=up to 49 ft Distance: 45' Walk 50 ft with 2 Turns(QC): 88 Walk 150 ft (QC): 88 Gait Level of Assist: 4 Gait Persons Needed: 1 Gait Assistive Device: FWW Comments/Gait Description decrease shannan with improved ability with bilateral foot clearance to advance bilateral LE. Balance Sitting Static: Normal Sitting Dynamic: Normal Standing Static: Normal Standing Dynamic: Normal Treatment bilateral LE seated exercises AP, LAQ 10 reps x 3 sets; Gait training with FWW minimal assist and Fair balance x 45' with slow, antalgic gait sequence Assessment/Needs 77 y.o. female, will benefit from skilled PT to address functional strength and mobility to improve current LOF and to safely return to home at maximum LOF. Rehab Potential: Good PT Nursing Home Goals Database Technician Goals PT Database Technician Goals Time Frame: Nov 23, 2017 Transfers (B,C,W/C) (FIM): 5 Sit to Lying (QC): 5 Lying-Sitting on Side/Bed(QC): 5 Sit to Stand (QC): 5 Rollin Chair/[id number]-Vknmw Xfer(QC): 5 Does the Patient Walk: Yes Gait (FIM): 2 Gait distance (FIM): 2=365-70 ft Distance: 75' Walk 50ft with 2 Turns (QC): 5 Gait Level of Assist: 5 Gait Assistive Device: FWW PT Plan Problem List Problem List: Activity Tolerance, Functional Strength, Safety, Balance, Gait, Transfer, Bed Mobility Treatment/Plan Treatment Plan: Continue Plan of Care Treatment Plan: Bed Mobility, Education, Functional Activity Ashley, Functional Strength, Gait, Safety, Therapeutic Exercise, Transfers Treatment Duration: Nov 23, 2017 Frequency: 11 times per week Estimated Hrs Per Day: .5 hour per day Patient and/or Family Agrees t: Yes Safety Risks/Education Patient Education: Gait Training Teaching Recipient: Patient Teaching Methods: Demonstration, Discussion Response to Teaching: Verbalize Understanding, Return Demonstration Discharge Recommendations Therapy D/C Recommendations: Acute Rehab Time/GCodes Time In: 913 Time Out: 936 Total Billed Treatment Time: 23 Total Billed Treatment 1 visit EVModC 8 min GT 15 min TRACE GRAHAM PT Nov 17, 2017 09:50
--- NOTE | 2017-11-17 13:57 | Physical Therapy Daily Note ---
PT Daily Note-Current Subjective Patient agrees to PT. Pain Numeric Pain Scale: 5-Moderate Pain Location: Left Location Body Site: Hip Pain Description: Acute Mental Status Patient Orientation: Normal For Age Transfers Functional [place] Measure 0=Not Assessed/NA 4=Minimal Assistance 1=Total Assistance 5=Supervision or Setup 2=Maximal Assistance 6=Modified [place] 3=Moderate Assistance 7=Complete IndependenceIRFPAI Quality Coding Scale 6 Independent with activity with or without an assistive device 5 Patient requires set up or clean up by helper. Patient completes activity by themselves 4 Supervision or touching assist (CGA). [place] provide cues , steadying assist 3 The helper provides less than half the effort to complete the activity 2 The helper provides more than half the effort to complete the activity 1 Dependent. The helper does all the effort to complete an activity 7 Patient refused to complete or attempt activity 9 The patient did not perform the activity before the current illness or injury 88 Not attempted due to Medical conditions or safety concerns Transfers (B, C, W/C) (FIM): 5 Scootin Roll Left to Right (QC): 5 Supine to/from Sit: 5 Sit to/from Stand: 5 Sit to Lying (QC): 5 Sit to Stand (QC): 5 Weight Bearing Right Lower Extremity: Right Full Weight Bearing Left Lower Extremity: Left Weight Bearing/Tolerated Gait Training Does the Patient Walk?: Yes Gait (FIM): 2 Distance (FIM): 8=480-58 ft Distance: 50' Walk 50 ft with 2 Turns(QC): 4 Gait Level of Assist: 4 Gait Persons Needed: 1 Gait Assistive Device: FWW slow, antalgic, functional Assessment Patient ceased treatment to have a BM. PT to increase activity as tolerated by patient. PT Shelter Goals Outbound Sales Consultant Goals PT Shelter Goals Time Frame: Nov 23, 2017 Transfers (B,C,W/C) (FIM): 5 Sit to Lying (QC): 5 Lying-Sitting on Side/Bed(QC): 5 Sit to Stand (QC): 5 Rollin Chair/Puu-bw-Sjrrj Xfer(QC): 5 Does the Patient Walk: Yes Gait (FIM): 2 Gait distance (FIM): 8=314-64 ft Distance: 75' Walk 50ft with 2 Turns (QC): 5 Gait Level of Assist: 5 Gait Assistive Device: FWW PT Plan Treatment/Plan Treatment Plan: Continue Plan of Care Treatment Plan: Bed Mobility, Education, Functional Activity Ashley, Functional Strength, Gait, Safety, Therapeutic Exercise, Transfers Treatment Duration: Nov 23, 2017 Frequency: 11 times per week Estimated Hrs Per Day: .5 hour per day Patient and/or Family Agrees t: Yes Time/GCodes Time In: 1325 Time Out: 1335 Total Billed Treatment Time: 10 Total Billed Treatment 1 visit GT 10 min TRACE GRAHAM PT Nov 17, 2017 13:57
--- NOTE | 2017-11-17 14:13 | Occupational Therapy Eval ---
OT Evaluation-General/PLF Medical Diagnosis Admission Date Nov 16, 2017 at 14:38 Medical Diagnosis: left hip fracture Onset Date: Nov 10, 2017 Therapy Diagnosis Therapy Diagnosis: decr self care, weakness, decr act tolerance, decr funct mobility Height/Weight Height (Feet): 5 Height (Inches): 5.00 Weight (Pounds): 137 Weight (Ounces): 1.0 Precautions Precautions/Isolations: Standard Precautions Safety Interventions: Bed Exit Alarm Weight Bear Status Weight Bearing Restriction: Weight Bearing/Tolerated Location Restriction: L LE WBS (Ord/Comment): Anterior hip precautions, no heel slides, no act/pass abduction, int rot Referral Physician: Louie Referral Reason: Evaluation/Treatment Medical History Pertinent Medical History: Atrial Fib, Hypothroidism Additional Medical History Anxiety, depression. Constipation. Bipolar> Hiatal hernia. Pt reported old R hip surgery Current History Pt reported her ankle twisted and she fell on her L hip. Hemiarthroplasty done on 11-10-17. Also reported L knee pain Social History Home: Apartment ([place]) Current Living Status: Alone Entry Into Home: Stairs With Railing ADL-Prior Level of Function ADL PLOF Comments Pt reported that she was able to manage her basic self care needs prior to fall. 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 Pt reported pain 6/10 in L hip but not described. Appearance Alert, cooperative "I don't remember much until about Tuesday." Mental Status/Objective Patient Orientation: Person, Place, Time, Situation Attachments: Saline Lock Current Glasses/Contacts: Yes Hearing Aids: No Dentures/Partials: Yes Hand Dominance: Right Upper Extremity ROM Grossly WFL bilat Upper Extremity Strength Grossly 4/5 bilat ADL-Treatment ADL-Current Pt reported that she is able to get slipper sock off/on on R foot but not L foot Functional [place] Measure 0=Not Assessed/NA 4=Minimal Assistance 1=Total Assistance 5=Supervision or Setup 2=Maximal Assistance 6=Modified [place] 3=Moderate Assistance 7=Complete IndependenceIRFPAI Quality Coding Scale 6 Independent with activity with or without an assistive device 5 Patient requires set up or clean up by helper. Patient completes activity by themselves 4 Supervision or touching assist (CGA). [place] provide cues , steadying assist 3 The helper provides less than half the effort to complete the activity 2 The helper provides more than half the effort to complete the activity 1 Dependent. The helper does all the effort to complete an activity 7 Patient refused to complete or attempt activity 9 The patient did not perform the activity before the current illness or injury 88 Not attempted due to Medical conditions or safety concerns Eating (FIM): 5 (Setup to open milk. Able to order her meals and feed herself) Eating (QC): 5 Grooming (FIM): 5 (SBA standing at sink to brush teeth, brush hair, wash face and hands. FWW) Oral Hygiene (QC): 5 (SBA) Pt left up in recliner, legs elevated, chair alarm on, telesitter in room, all needs met. Education OT Patient Education: Modified ADL techniques, Purpose of tx/functional activities, Rehab process, Safety issues Teaching Recipient: Patient Teaching Methods: Discussion Response to Teaching: Verbalize Understanding, Return Demonstration, Reinforcement Needed OT Shelter Goals Shelter Goals Time Frame: Dec 02, 2017 Eating (FIM): 6 Eating (QC): 6 Groomin Oral Hygiene (QC): 6 Bathing(FIM): 5 Upper Body Dressing(FIM): 6 Lower Body Dressing(FIM): 6 Toileting(FIM): 6 Toileting Hygiene (QC): 6 Toilet/Commode Transfer(FIM): 6 Toilet/Commode Transfer (QC): 6 Tub Transfer(FIM): 5 (or shower) Shower Transfer(FIM): 5 (or tub) Additional Goals: 1-Demonstrate ADL Tasks, 2-Verbalize Understanding, 3- ImproveStrength/Ashley 1=Demonstrate adherence to instructed precautions during ADL tasks. 2=Patient will verbalize/demonstrate understanding of assistive devices/ modifications for ADL. 3=Patient will improve strength/tolerance for activity to enable patient to perform ADL's. OT Education/Plan Problem List/Assessment Assessment: Decreased Activ Tolerance, Decreased Safety Aware, Decreased UE Strength, Dependent Transfers, Impaired Self-Care Skills Pt would benefit from skilled OT to increase her independence in basic self care to allow her to safely return to her home and to decrease caregiver burden Discharge Recommendations Plan/Recommendations: Continue POC Treatment Plan/Plan of Care Treatment,Training & Education: Yes Patient would benefit from OT for education, treatment and training to promote independence in ADL's, mobility, safety and/or upper extremity function for ADL' s. Plan of Care: ADL Retraining, Functional Mobility, UE Funct Exercise/Act, UE Neuromus Re-Ed/Coord Treatment Duration: Dec 02, 2017 Frequency: 5 times per week Estimated Hrs Per Day: .25 hour per day (.25 to .5) Agreement: Yes Rehab Potential: Good Time/GCodes Start Time: 13:36 Stop Time: 14:00 Total Time Billed (hr/min): 24 Billed Treatment Time visit, 15 minutes ADL, 9 minutes evaluation moderate intensity PAUL MCDOWELL OT Nov 17, 2017 14:13
[2017-11-17] MEDS ORDERED: NS IV 500 ML 500 ML ONE (14:44)
[2017-11-17] MEDS: QUEtiapine 25 MG (SEROquel) TAB IMMEDIATE RELEASE PO SCH (20:39)
[2017-11-17] MEDS: SIMvastatin 20 MG (ZOCOR) TAB PO SCH (20:39)
[2017-11-17 23:06] LABS: HEMOGLOBIN 10.3 G/DL (11.5-16.0)
[2017-11-18 05:10] LABS: BASOPHILS # (AUTO) 0.1 10^3/uL (0.0-0.1); BASOPHILS % (AUTO) 1 % (0-10); EOSINOPHILS # (AUTO) 0.4 10^3/uL (0.0-0.3); EOSINOPHILS % (AUTO) 4 % (0-10); HEMATOCRIT 31 % (35-52); HEMOGLOBIN 10.5 G/DL (11.5-16.0); LYMPHOCYTES # (AUTO) 2.3 X 10^3 (1.0-4.0); LYMPHOCYTES % (AUTO) 25 % (12-44); MEAN CORPUSCULAR HEMOGLOBIN 32 PG (25-34); MEAN CORPUSCULAR HGB CONC 34 G/DL (32-36); MEAN CORPUSCULAR VOLUME 94 FL (80-99); MEAN PLATELET VOLUME 9.6 FL (7.4-10.4); MONOCYTES # (AUTO) 0.8 X 10^3 (0.0-1.0); MONOCYTES % (AUTO) 9 % (0-12); NEUTROPHILS # (AUTO) 5.5 X 10^3 (1.8-7.8); NEUTROPHILS % (AUTO) 61 % (42-75); PLATELET COUNT 227 10^3/uL (130-400); RED BLOOD COUNT 3.27 10^6/uL (4.35-5.85); RED CELL DISTRIBUTION WIDTH 15.5 % (10.0-14.5)
[2017-11-18 05:46] LABS: BUN/CREATININE RATIO 14; CALCIUM 8.3 MG/DL (8.5-10.1); CARBON DIOXIDE 22 MMOL/L (21-32); CHLORIDE 107 MMOL/L (98-107); CREATININE SERUM 0.63 MG/DL (0.60-1.30); GFR ESTIMATED > 60; GLUCOSE 87 MG/DL (70-105); POTASSIUM 3.7 MMOL/L (3.6-5.0); SODIUM 138 MMOL/L (135-145)
[2017-11-18] MEDS: LEVOTHYROXINE 25 MCG (LEVOTHROID) TAB PO SCH (05:50)
[2017-11-18] MEDS: PANTOPRAZOLE 20 MG TABLET (PROTONIX) PO SCH (05:50)
[2017-11-18] MEDS: buPROPion SR 150 MG (WELLBUTRIN SR) TAB PO SCH ×2 (05:50→16:44)
[2017-11-18] MEDS: CEFEPIME INJECTION 2,000 MG in D5W 50 ML IVPB SOLUTION 50 ML IV SCH (05:51)
[2017-11-18 06:09] VITALS: BP 142/67
--- NOTE | 2017-11-18 07:58 | Progress Note (SOAP) ---
Subjective Subjective/Events-last exam This morning the patient reports that she is feeling pretty well, although somewhat tired because she just finished walking with physical therapy. She reports that overall she is less tired than yesterday, she is also no longer short of breath. The patient is not visibly dyspneic while speaking. The patient again reports left knee pain. She states that she was having some left knee pain before her fall, but pain is worse now. No acute events overnight, no concerns from nursing staff. Review of Systems Date Seen by Provider: Nov 18, 2017 Time Seen by Provider: 10:30 General: No Chills, No Night Sweats, Fatigue (with ambulation), No Malaise HEENT: No Head Aches, No Visual Changes, No Eye Pain, No Ear Pain, No Dysphasia , No Sore Throat Pulmonary: No Dyspnea, No Cough, No Pleuritic Chest Pain Cardiovascular: No: Chest Pain, Palpitations, Edema Gastrointestinal: No: Nausea, Vomiting, Abdominal Pain, Diarrhea, Constipation Genitourinary: No Dysuria, No Frequency Musculoskeletal: other (left knee pain), No: neck pain, back pain Neurological: No: Weakness, Numbness, Change in speech, Confusion, Seizures Objective Exam Last Set of Vital Signs Vital Signs Date Time Temp Pulse Resp B/P (MAP) Pulse Ox O2 Delivery O2 Flow Rate FiO2 11/18/17 06:09 97.7 66 16 142/67 (92) 95 Room Air Capillary Refill : I&O Intake and Output 11/18/17 00:00 Intake Total 690 ml Output Total 1600 ml Balance -910 ml Intake Oral 690 ml Output Urine Total 1600 ml # Voids 1 # Bowel Movements 1 General: Alert, Oriented X3, Cooperative, No Acute Distress HEENT: Atraumatic, EOMI, Mucous Memb Moist/[place] Neck: Supple Lungs: Clear to Auscultation, Normal Air Movement Heart: Normal S1, Normal S2, No Murmurs, Other (irregular rate and rhythm) Abdomen: Normal Bowel Sounds, Soft, No Tenderness, No Hepatosplenomegaly, No Masses Extremities: No Clubbing, No Cyanosis, No Edema, Normal Pulses, Other (pain in left knee, pops with movement, pain improves with varus and valgus stress, tender to palpation, no edema) Skin: No Rashes, No Significant Lesion Neuro: Normal Speech, Normal Tone, Sensation Intact, Cranial Nerves 3-12 NL Psych/Mental Status: Mental Status NL, Mood NL Results/Procedures Lab Laboratory Tests 11/17/17 23:00: Hemoglobin 10.3#L, Hematocrit 30L 11/18/17 05:05: Hemoglobin 10.5L, Hematocrit 31L, White Blood Count 9.0, Red Blood Count 3.27L, Mean Corpuscular Volume 94, Mean Corpuscular Hemoglobin 32, Mean Corpuscular Hemoglobin Concent 34, Red Cell Distribution Width 15.5H, Platelet Count 227, Mean Platelet Volume 9.6, Neutrophils (%) (Auto) 61, Lymphocytes (%) (Auto) 25, Monocytes (%) (Auto) 9, Eosinophils (%) (Auto) 4, Basophils (%) (Auto) 1, Neutrophils # (Auto) 5.5, Lymphocytes # (Auto) 2.3, Monocytes # (Auto) 0.8, Eosinophils # (Auto) 0.4H, Basophils # (Auto) 0.1, Sodium Level 138, Potassium Level 3.7, Chloride Level 107, Carbon Dioxide Level 22, Anion Gap 9, Blood Urea Nitrogen 9, Creatinine 0.63, Estimat Glomerular Filtration Rate > 60, BUN/ Creatinine Ratio 14, Glucose Level 87, Calcium Level 8.3L, Magnesium Level 2.0, C-Reactive Protein High Sensitivity 4.73H Radiology 3 view Left Knee from 11/10/17: FINDINGS: The previous left knee exam of 03/13/2009 noted a comminuted displaced fracture of the mid body of the patella. This injury was subsequently repaired on 03/14/2009 with orthopedic screws and fixation wires. In the interval since the prior exam, the orthopedic hardware has been removed. There is a broad fracture extending through the body of the patella. The lateral view indicates that there is approximately 1.3 cm of diastasis between the main fracture fragments. There also appears to be a 1.4 x 2.4 cm comminuted fracture fragment overlying the main fracture fragments on the lateral view. I suspect this is along the medial aspect of the patella. No other fracture or acute bony abnormality is identified. There is no sign of a joint effusion or of lipohemarthrosis. There is nearly as much soft tissue edema along the anterior aspect of the patella as noted on the prior exam. IMPRESSION: 1. There does appear to have been a recurrent fracture of the mid body of the patella. If further evaluation of the injury to the patella is desired, then CT would be recommended. 2. There is no acute bony abnormality noted otherwise. 3. The results were discussed with Dr. Piedad Rao. Assessment/Plan Assessment/Plan Admission Dx see below Plan left hip fracture s/p ORIF on 11/11/1711/17 -continue PT/OT -patient has been accepted to IRF, plan to discharge to IRF when able to tolerate therapy and has completed abx 11/18 -doing well with PT, continue with plan to discharge to IRF when ready Sepsis, Health Care Acquired PNA 11/17 -afebrile, Tmax 99.1. VSS on room air. -Day 4 Cefepime -cultures with no growth to date -WBC stable -CRP trending down: 16.7 -> 11.7 -> 9.3 -> 6.36 -recommend completing a full 7 days of IV abx 11/18 -Day 5 Cefepime -CRP continues to trend down, now 4.73 -continue for total 7 days of therapy Anemia 11/17 -Hgb 7.7 today, was 7.9 yesterday -pt also had 2 NRBC on peripheral smear done by lab; reports feeling very fatigued and short of breath, on exam is visibly tachypnic with conversation and quite pale -given patient is post operative, has afib, is recovering from sepsis, and is symptomatic from her anemia as outlined above, believe that patient would benefit significantly from transfusion, and she does meet the guidelines for transfusion of Hgb <8 in a hospitalized postoperative patient, as well as those for a symptomatic patient with a Hgb <10. Risks and benefits were discussed with patient and she is agreeable to transfusion. Reports she has required transfusion in the past, 3 units after her other hip surgery. -type and cross, transfuse 2 units, will premedicate with tylenol and benadryl, or have patient take dose of pain medication prior to transfusion if due since that contains tylenol and do not want to exceed 3g/24 hrs 11/18 -s/p 2 units PRBCs yesterday, tolerated well -Hgb 7.7 --> 10.3 --> 10.5 Left Knee Pain 11/18 -hx of left patella fx in 2008 with orthopedic repair that has since been removed -3 view plain films on 11/10/17 show suspected recurrence of fracture, recommend CT if further evaluation is required -consider re-consult to ortho vs CT of left knee Weakness 11/17 -continue therapy with plans to discharge to IRF for more intensive therapy when ready 11/18 -pt continues to make steady progress, continue therapy then discharge to IRF when ready General Debility 11/17 -continue therapy with plans to discharge to IRF for more intensive therapy when ready Hypothyroidism -continue home medication -TSH checked 11/14, 3.38 Depression -continue home medication Anxiety -pt's home medication is 2 mg Xanax TID; this was decreased to 0.5 mg TID and hold for somnolence while patient was experiencing altered mental status secondary to her sepsis -patient's altered mental status has resolved, but find her dose to be quite significant for someone of her age, although likely she has been on for many years and required dose increases due to tolerance -patient feeling fine currently on the decreased dose, so will leave at 0.5 mg TID for now; if pt begins to feel anxious, she will let us know and we can adjust accordingly 11/18 -pt continues to do well on 0.5 mg Xanax at this time FEN: Regular Diet DVT Ppx: Eliquis Dispo: Swing status, anticipate that patient will not be ready to go to IRF until at least Tuesday when the patient's abx are complete. Clinical Quality Measures DVT/VTE Risk/Contraindication: Risk Factor Score Per Nursin MEENA KESSLER DO Nov 18, 2017 07:58
--- NOTE | 2017-11-18 09:38 | Physical Therapy Daily Note ---
PT Daily Note-Current Subjective Patient is very alert and agrees to PT. She reports she just completed breakfast. Pain Numeric Pain Scale: 5-Moderate Pain Location: Left Location Body Site: Hip Pain Description: Ache, Acute Mental Status Patient Orientation: Normal For Age Transfers Functional [place] Measure 0=Not Assessed/NA 4=Minimal Assistance 1=Total Assistance 5=Supervision or Setup 2=Maximal Assistance 6=Modified [place] 3=Moderate Assistance 7=Complete IndependenceIRFPAI Quality Coding Scale 6 Independent with activity with or without an assistive device 5 Patient requires set up or clean up by helper. Patient completes activity by themselves 4 Supervision or touching assist (CGA). [place] provide cues , steadying assist 3 The helper provides less than half the effort to complete the activity 2 The helper provides more than half the effort to complete the activity 1 Dependent. The helper does all the effort to complete an activity 7 Patient refused to complete or attempt activity 9 The patient did not perform the activity before the current illness or injury 88 Not attempted due to Medical conditions or safety concerns Transfers (B, C, W/C) (FIM): 5 Scootin Sit to/from Stand: 5 Sit to Stand (QC): 5 Weight Bearing Right Lower Extremity: Right Full Weight Bearing Left Lower Extremity: Left Weight Bearing/Tolerated Gait Training Does the Patient Walk?: Yes Gait (FIM): 2 Distance (FIM): 2=437-15 ft Distance: 125' Walk 50 ft with 2 Turns(QC): 4 Gait Level of Assist: 4 Gait Assistive Device: FWW 1 episode of LOB with self correct. close CGA to SBA for safety Exercises Seated Therapy Exercises: Ankle pumps, Long arc quads Seated Reps: 20 (3 sets to increase strength and mobility) Assessment Patient progressing with treatment plan. PT will continue to increase activity as tolerated by patient. Patient remains seated in recliner with needs met. PT Certified Technician Goals Intermediate Goals PT Intermediate Goals Time Frame: Nov 23, 2017 Transfers (B,C,W/C) (FIM): 5 Sit to Lying (QC): 5 Lying-Sitting on Side/Bed(QC): 5 Sit to Stand (QC): 5 Rollin Chair/Rap-ct-Vabvq Xfer(QC): 5 Does the Patient Walk: Yes Gait (FIM): 2 Gait distance (FIM): 5=808-63 ft Distance: 75' Walk 50ft with 2 Turns (QC): 5 Gait Level of Assist: 5 Gait Assistive Device: FWW PT Plan Treatment/Plan Treatment Plan: Continue Plan of Care Treatment Plan: Bed Mobility, Education, Functional Activity Ashley, Functional Strength, Gait, Safety, Therapeutic Exercise, Transfers Treatment Duration: Nov 23, 2017 Frequency: 11 times per week Estimated Hrs Per Day: .5 hour per day Patient and/or Family Agrees t: Yes Time/GCodes Time In: 837 Time Out: 900 Total Billed Treatment Time: 23 Total Billed Treatment 1 visit EX 10 min GT 13 min TRACE GRAHAM PT Nov 18, 2017 09:38
[2017-11-18] MEDS: FLECAINIDE 100 MG (TAMBOCOR) TAB PO SCH (09:50)
[2017-11-18] MEDS: ALPRAZolam 1 MG (XANAX) TAB PO SCH ×3 (09:53→20:21)
[2017-11-18] MEDS: meTOprolol TARTRATE 25 MG (LOPRESSOR) TABLET PO SCH ×2 (10:04→20:20)
[2017-11-18] MEDS: FAMOTIDINE 20 MG (PEPCID) TABLET PO SCH (10:04)
[2017-11-18] MEDS: DOCUSATE SODIUM 100 MG (COLACE) CAP PO SCH ×2 (10:04→20:22)
[2017-11-18] MEDS: APIXABAN 5 MG (ELIQUIS) TABLET PO SCH ×2 (10:04→20:21)
--- NOTE | 2017-11-18 12:01 | Occupational Ther Daily Note ---
OT Current Status-Daily Note Subjective Pt seen in room, up in recliner, agreeable to OT. No pain mentioned. Appearance Alert, cooperative Mental Status/Objective Functional [place] Measure 0=Not Assessed/NA 4=Minimal Assistance 1=Total Assistance 5=Supervision or Setup 2=Maximal Assistance 6=Modified [place] 3=Moderate Assistance 7=Complete [place] ADL-Treatment Pt declined a shower but did agree to sponge bath. She washed and dried all parts except feet, with CGA for steadying while standing. She was SBA to move from sit to stand and used FWW for balance as needed. She changed hospital gowns and put on bed jacket with setup. Functional [place] Measure 0=Not Assessed/NA 4=Minimal Assistance 1=Total Assistance 5=Supervision or Setup 2=Maximal Assistance 6=Modified [place] 3=Moderate Assistance 7=Complete IndependenceIRFPAI Quality Coding Scale 6 Independent with activity with or without an assistive device 5 Patient requires set up or clean up by helper. Patient completes activity by themselves 4 Supervision or touching assist (CGA). [place] provide cues , steadying assist 3 The helper provides less than half the effort to complete the activity 2 The helper provides more than half the effort to complete the activity 1 Dependent. The helper does all the effort to complete an activity 7 Patient refused to complete or attempt activity 9 The patient did not perform the activity before the current illness or injury 88 Not attempted due to Medical conditions or safety concerns Bathing (FIM): 4 Other Treatment Pt was provided with yellow theraband (gentle resistance) and did 10 reps bilat shoulder and 10 reps bilat elbow extension exercises, after education. Theraband left in room for her to use over the weekend. Pt left up in recliner, legs elevated, all needs met. Education OT Patient Education: Exercise program, Progress toward Goal/Update tx plan, Purpose of tx/functional activities, Transfer techniques Teaching Recipient: Patient Teaching Methods: Demonstration, Discussion Response to Teaching: Verbalize Understanding, Return Demonstration OT Short Term Goals Short Term Goals 1=Demonstrate adherence to instructed precautions during ADL tasks. 2=Patient will verbalize/demonstrate understanding of assistive devices/ modifications for ADL. 3=Patient will improve strength/tolerance for activity to enable patient to perform ADL's. OT Snf Goals Snf Goals Time Frame: Dec 02, 2017 Eating (FIM): 6 Eating (QC): 6 Groomin Oral Hygiene (QC): 6 Bathing(FIM): 5 Upper Body Dressing(FIM): 6 Lower Body Dressing(FIM): 6 Toileting(FIM): 6 Toileting Hygiene (QC): 6 Toilet/Commode Transfer(FIM): 6 Toilet/Commode Transfer (QC): 6 Tub Transfer(FIM): 5 (or shower) Shower Transfer(FIM): 5 (or tub) Additional Goals: 1-Demonstrate ADL Tasks, 2-Verbalize Understanding, 3- ImproveStrength/Ashley 1=Demonstrate adherence to instructed precautions during ADL tasks. 2=Patient will verbalize/demonstrate understanding of assistive devices/ modifications for ADL. 3=Patient will improve strength/tolerance for activity to enable patient to perform ADL's. OT Education/Plan Problem List/Assessment Pt would benefit from skilled OT to increase her independence in basic self care to allow her to safely return to her home and to decrease caregiver burden Discharge Recommendations Plan/Recommendations: Continue POC Treatment Plan/Plan of Care Patient would benefit from OT for education, treatment and training to promote independence in ADL's, mobility, safety and/or upper extremity function for ADL' s. Plan of Care: ADL Retraining, Functional Mobility, UE Funct Exercise/Act, UE Neuromus Re-Ed/Coord Treatment Duration: Dec 02, 2017 Frequency: 5 times per week Estimated Hrs Per Day: .25 hour per day (.25 to .5) Agreement: Yes Rehab Potential: Good Time/GCodes Start Time: 11:21 Stop Time: 11:46 Total Time Billed (hr/min): 25 Billed Treatment Time visit, 15 minutes ADL, 10 minutes exercise PAUL MCDOWELL OT Nov 18, 2017 12:01
--- NOTE | 2017-11-18 12:50 | Physical Therapy Daily Note ---
PT Daily Note-Current Subjective Patient agrees to take a break from eating to work with PT. Pain Numeric Pain Scale: 5-Moderate Pain Location: Left Location Body Site: Hip Pain Description: Acute Mental Status Patient Orientation: Normal For Age Transfers Functional [place] Measure 0=Not Assessed/NA 4=Minimal Assistance 1=Total Assistance 5=Supervision or Setup 2=Maximal Assistance 6=Modified [place] 3=Moderate Assistance 7=Complete IndependenceIRFPAI Quality Coding Scale 6 Independent with activity with or without an assistive device 5 Patient requires set up or clean up by helper. Patient completes activity by themselves 4 Supervision or touching assist (CGA). [place] provide cues , steadying assist 3 The helper provides less than half the effort to complete the activity 2 The helper provides more than half the effort to complete the activity 1 Dependent. The helper does all the effort to complete an activity 7 Patient refused to complete or attempt activity 9 The patient did not perform the activity before the current illness or injury 88 Not attempted due to Medical conditions or safety concerns Transfers (B, C, W/C) (FIM): 5 Scootin Sit to/from Stand: 5 Sit to Stand (QC): 5 Weight Bearing Right Lower Extremity: Right Full Weight Bearing Left Lower Extremity: Left Weight Bearing/Tolerated Gait Training Does the Patient Walk?: Yes Gait (FIM): 2 Distance (FIM): 8=812-38 ft Distance: 125' Walk 50 ft with 2 Turns(QC): 5 Gait Level of Assist: 5 Gait Assistive Device: FWW antalgic, functional gait sequence Exercises Seated Therapy Exercises: Ankle pumps, Long arc quads Seated Reps: 15 (3 sets) Assessment Current Status: Excellent Progress Patient returned to recliner to complete lunch. PT to continue with POC. PT Tower Climber Goals Snf Goals PT Tower Climber Goals Time Frame: Nov 23, 2017 Transfers (B,C,W/C) (FIM): 5 Sit to Lying (QC): 5 Lying-Sitting on Side/Bed(QC): 5 Sit to Stand (QC): 5 Rollin Chair/Bqz-nm-Skfwa Xfer(QC): 5 Does the Patient Walk: Yes Gait (FIM): 2 Gait distance (FIM): 4=398-48 ft Distance: 75' Walk 50ft with 2 Turns (QC): 5 Gait Level of Assist: 5 Gait Assistive Device: FWW PT Plan Treatment/Plan Treatment Plan: Continue Plan of Care Treatment Plan: Bed Mobility, Education, Functional Activity Ashley, Functional Strength, Gait, Safety, Therapeutic Exercise, Transfers Treatment Duration: Nov 23, 2017 Frequency: 11 times per week Estimated Hrs Per Day: .5 hour per day Patient and/or Family Agrees t: Yes Time/GCodes Time In: 1222 Time Out: 1245 Total Billed Treatment Time: 23 Total Billed Treatment 1 visit GT 14 min EX 9 min TRACE GRAHAM PT Nov 18, 2017 12:50
[2017-11-18 18:00] VITALS: BP 119/57
[2017-11-18] MEDS: HYDROcodone/APAP 5 MG/325 MG (LORTAB) TAB PO PRN (20:20)
[2017-11-18] MEDS: QUEtiapine 25 MG (SEROquel) TAB IMMEDIATE RELEASE PO SCH (20:20)
[2017-11-18] MEDS: SIMvastatin 20 MG (ZOCOR) TAB PO SCH (20:21)
[2017-11-19] MEDS: HYDROcodone/APAP 5 MG/325 MG (LORTAB) TAB PO PRN (03:50)
[2017-11-19 05:31] LABS: BASOPHILS % (AUTO) 1 % (0-10); EOSINOPHILS # (AUTO) 0.4 10^3/uL (0.0-0.3); EOSINOPHILS % (AUTO) 4 % (0-10); HEMATOCRIT 30 % (35-52); HEMOGLOBIN 10.2 G/DL (11.5-16.0); LYMPHOCYTES # (AUTO) 2.4 X 10^3 (1.0-4.0); LYMPHOCYTES % (AUTO) 28 % (12-44); MEAN CORPUSCULAR HEMOGLOBIN 32 PG (25-34); MEAN CORPUSCULAR HGB CONC 34 G/DL (32-36); MEAN CORPUSCULAR VOLUME 96 FL (80-99); MEAN PLATELET VOLUME 9.8 FL (7.4-10.4); MONOCYTES # (AUTO) 0.8 X 10^3 (0.0-1.0); MONOCYTES % (AUTO) 10 % (0-12); NEUTROPHILS # (AUTO) 5.1 X 10^3 (1.8-7.8); NEUTROPHILS % (AUTO) 58 % (42-75); PLATELET COUNT 262 10^3/uL (130-400); RED BLOOD COUNT 3.18 10^6/uL (4.35-5.85); RED CELL DISTRIBUTION WIDTH 15.9 % (10.0-14.5); WHITE BLOOD COUNT 8.8 10^3/uL (4.3-11.0)
[2017-11-19 05:54] LABS: BUN/CREATININE RATIO 12; CALCIUM 8.4 MG/DL (8.5-10.1); CARBON DIOXIDE 23 MMOL/L (21-32); CHLORIDE 106 MMOL/L (98-107); CREATININE SERUM 0.69 MG/DL (0.60-1.30); GFR ESTIMATED > 60; GLUCOSE 89 MG/DL (70-105); POTASSIUM 3.5 MMOL/L (3.6-5.0); SODIUM 139 MMOL/L (135-145)
[2017-11-19 06:00] VITALS: BP 138/83
[2017-11-19] MEDS: CEFEPIME INJECTION 2,000 MG in D5W 50 ML IVPB SOLUTION 50 ML IV SCH (06:36)
[2017-11-19] MEDS: LEVOTHYROXINE 25 MCG (LEVOTHROID) TAB PO SCH (06:36)
[2017-11-19] MEDS: PANTOPRAZOLE 20 MG TABLET (PROTONIX) PO SCH (06:36)
[2017-11-19] MEDS: buPROPion SR 150 MG (WELLBUTRIN SR) TAB PO SCH ×2 (06:36→17:30)
[2017-11-19] MEDS: FAMOTIDINE 20 MG (PEPCID) TABLET PO SCH (09:34)
[2017-11-19] MEDS: meTOprolol TARTRATE 25 MG (LOPRESSOR) TABLET PO SCH ×2 (09:34→19:50)
[2017-11-19] MEDS: APIXABAN 5 MG (ELIQUIS) TABLET PO SCH ×2 (09:34→19:50)
[2017-11-19] MEDS: DOCUSATE SODIUM 100 MG (COLACE) CAP PO SCH ×2 (09:35→19:51)
[2017-11-19] MEDS: FLECAINIDE 100 MG (TAMBOCOR) TAB PO SCH (09:35)
[2017-11-19] MEDS: ALPRAZolam 1 MG (XANAX) TAB PO SCH ×3 (09:35→19:50)
--- NOTE | 2017-11-19 10:26 | Physical Therapy Daily Note ---
PT Daily Note-Current Subjective Pain rated 4-6/10 in (L) thigh area. Pt agreeable and ready for therapy. Pt says she feels "jittery and anxious" and thinks it is because of medication changes. Mental Status Patient Orientation: Person, Place, Situation Transfers Functional [place] Measure 0=Not Assessed/NA 4=Minimal Assistance 1=Total Assistance 5=Supervision or Setup 2=Maximal Assistance 6=Modified [place] 3=Moderate Assistance 7=Complete IndependenceIRFPAI Quality Coding Scale 6 Independent with activity with or without an assistive device 5 Patient requires set up or clean up by helper. Patient completes activity by themselves 4 Supervision or touching assist (CGA). [place] provide cues , steadying assist 3 The helper provides less than half the effort to complete the activity 2 The helper provides more than half the effort to complete the activity 1 Dependent. The helper does all the effort to complete an activity 7 Patient refused to complete or attempt activity 9 The patient did not perform the activity before the current illness or injury 88 Not attempted due to Medical conditions or safety concerns Min A required (L) LE during transfer out of bed, otherwise, mod (I) transfers Weight Bearing Right Lower Extremity: Right Full Weight Bearing Left Lower Extremity: Left Weight Bearing/Tolerated Gait Training Gait Assistive Device: FWW Pt amb with FWW x 350ft and steady speed. Pt stopped mcfp to stand and rest. Exercises Supine Ex: Ankle pumps, Quad Set Supine Reps: 15 Seated Therapy Exercises: Long arc quads Seated Reps: 15 Assessment Current Status: Good Progress [place] above well with rest breaks as needed. Pt up in chair with call light and all needs met, breakfast in front of pt. Ambu alarm activated. PT Intermediate Goals Intermediate Goals PT Vessel Builder Goals Time Frame: Nov 23, 2017 Transfers (B,C,W/C) (FIM): 5 Sit to Lying (QC): 5 Lying-Sitting on Side/Bed(QC): 5 Sit to Stand (QC): 5 Rollin Chair/Ymy-id-Cwtpl Xfer(QC): 5 Does the Patient Walk: Yes Gait (FIM): 2 Gait distance (FIM): 1=224-94 ft Distance: 75' Walk 50ft with 2 Turns (QC): 5 Gait Level of Assist: 5 Gait Assistive Device: FWW PT Plan Treatment/Plan Treatment Plan: Continue Plan of Care Treatment Plan: Bed Mobility, Education, Functional Activity Ashley, Functional Strength, Gait, Safety, Therapeutic Exercise, Transfers Treatment Duration: Nov 23, 2017 Frequency: 11 times per week Estimated Hrs Per Day: .5 hour per day Patient and/or Family Agrees t: Yes Time/GCodes Time In: 945 Time Out: 1015 Total Billed Treatment Time: 30 Total Billed Treatment 1, ther ex 10min, gait 20 min PAUL WEBSTER CPTA Nov 19, 2017 10:26
[2017-11-19 17:06] VITALS: BP 119/58
[2017-11-19 19:30] VITALS: BP 133/62
[2017-11-19] MEDS: SIMvastatin 20 MG (ZOCOR) TAB PO SCH (19:50)
[2017-11-19] MEDS: QUEtiapine 25 MG (SEROquel) TAB IMMEDIATE RELEASE PO SCH (19:50)
[2017-11-20 06:00] VITALS: BP 148/78
[2017-11-20] MEDS: HYDROcodone/APAP 5 MG/325 MG (LORTAB) TAB PO PRN ×3 (06:07→21:15)
[2017-11-20] MEDS: PANTOPRAZOLE 20 MG TABLET (PROTONIX) PO SCH (06:08)
[2017-11-20] MEDS: buPROPion SR 150 MG (WELLBUTRIN SR) TAB PO SCH ×2 (06:08→16:48)
[2017-11-20] MEDS: LEVOTHYROXINE 25 MCG (LEVOTHROID) TAB PO SCH (06:08)
[2017-11-20] MEDS: CEFEPIME INJECTION 2,000 MG in D5W 50 ML IVPB SOLUTION 50 ML IV SCH (06:09)
[2017-11-20] MEDS: APIXABAN 5 MG (ELIQUIS) TABLET PO SCH ×2 (09:15→21:15)
[2017-11-20] MEDS: DOCUSATE SODIUM 100 MG (COLACE) CAP PO SCH ×2 (09:15→21:15)
[2017-11-20] MEDS: FAMOTIDINE 20 MG (PEPCID) TABLET PO SCH (09:16)
[2017-11-20] MEDS: meTOprolol TARTRATE 25 MG (LOPRESSOR) TABLET PO SCH ×2 (09:16→21:14)
[2017-11-20] MEDS: FLECAINIDE 100 MG (TAMBOCOR) TAB PO SCH (09:16)
[2017-11-20] MEDS: ALPRAZolam 1 MG (XANAX) TAB PO SCH ×4 (09:17→21:15)
--- NOTE | 2017-11-20 11:21 | Discharge Instructions ---
Discharge [facility] Discharge Medications New, Converted or Re-Newed RX: Other Continued Medications: Acetaminophen (Acetaminophen Extra Strength) 500 Mg Tablet 1000 MG PO Q6H PRN for PAIN-MILD, TAB TAKES 2 (500MG) TABLETS Apixaban (Eliquis) 2.5 Mg Tablet 2.5 MG PO BID, TAB Bupropion HCl (Bupropion Xl) 300 Mg Tab.er.24h 300 MG PO DAILY, TAB Cholecalciferol (Vitamin D3) (Vitamin D3) 1,000 Unit Capsule 1000 UNIT PO DAILY, CAP Docusate Sodium (Colace) 100 Mg Capsule 200 MG PO HS, CAP TAKES 2 (100MG) CAPSULES Flecainide Acetate (Flecainide Acetate) 50 Mg Tablet 50 MG PO BID, TAB Furosemide (Furosemide) 20 Mg Tablet 10 MG PO Q48H, TAB Levothyroxine Sodium (Levothyroxine Sodium) 25 Mcg Tablet 25 MCG PO DAILY, TAB Metoclopramide HCl (Metoclopramide HCl) 5 Mg Tablet 10 MG PO BID WITH MEALS, TAB TAKES 2 (5MG) TABLETS WITH NOON AND EVENING MEAL Metoprolol Tartrate (Metoprolol Tartrate) 25 Mg Tablet 25 MG PO BID, TAB Omeprazole (Omeprazole) 20 Mg Capsule.dr 20 MG PO DAILY, CAP Polyethylene Glycol 3350 (Miralax) 17 Gm Powd.pack 17 GM PO DAILY, EACH Polyethylene Glycol 3350 (Miralax) 17 Gm Powd.pack 17 GM PO HS PRN for CONSTIPATION-2ND LINE, EACH Pravastatin Sodium (Pravastatin Sodium) 40 Mg Tablet 40 MG PO HS, TAB Discontinued Medications: Alprazolam (Alprazolam) 2 Mg Tablet 2 MG PO TID, TAB Patient Instructions Goal/Follow Up Appt: YOU WILL BE DISCHARGED TO THE INPATIENT REHAB SERVICE. WHEN YOU ARE DISCHARGED FROM [facility], THEY WILL CALL [facility] TO MAKE AN APPOINTMENT FOR YOU WITH DR PHILLIPS. Patient Instructions: YOU SHOULD DISCUSS YOUR XANAX DOSE WITH DR PHILLIPS. I RECOMMEND A VERY SLOW TAPER BECAUSE YOU HAVE BEEN ON IT FOR SO LONG. WE DECREASED IT TO 1.5MG TID WHILE YOU WERE IN HOSPITAL. DR REY CAN CONTINUE THAT DOSE THROUGH YOUR STAY IN [facility], AND DR PHILLIPS CAN DISCUSS FURTHER DECREASES WITH YOU AT THAT APPOINTMENT. Return to [facility]: PER [facility] Activity & Diet Discharge Diet: No Restrictions Activity as Tolerated: Yes Copy Copies To 1: FRANCESCO PHILLIPS MD, JULIE A MD Nov 20, 2017 11:21 am
--- NOTE | 2017-11-20 11:22 | Discharge Summary ---
Diagnosis/Chief Complaint Date of Admission Nov 16, 2017 at 2:38 pm Date of Discharge November 20, 2017 Admission Diagnosis Admission Diagnosis SEE BELOW Discharge Diagnosis left hip fracture s/p ORIF on 11/11/1711/17 -continue PT/OT -patient has been accepted to IRF, plan to discharge to IRF when able to tolerate therapy and has completed abx 11/18 -doing well with PT, continue with plan to discharge to IRF when ready DISCHARGE - TO FOLLOW UP WITH DR REY'S TEAM Sepsis, Health Care Acquired PNA 11/17 -afebrile, Tmax 99.1. VSS on room air. -Day 4 Cefepime -cultures with no growth to date -WBC stable -CRP trending down: 16.7 -> 11.7 -> 9.3 -> 6.36 -recommend completing a full 7 days of IV abx 11/18 -Day 5 Cefepime -CRP continues to trend down, now 4.73 -continue for total 7 days of therapy 11/19 - no change today, day 6/ DISCHARGE - DAY 7 OF CEFEPIME, NO FURTHER ANTIBIOTICS NEEDED Anemia, acute on chronic 11/17 -Hgb 7.7 today, was 7.9 yesterday -pt also had 2 NRBC on peripheral smear done by lab; reports feeling very fatigued and short of breath, on exam is visibly tachypnic with conversation and quite pale -given patient is post operative, has afib, is recovering from sepsis, and is symptomatic from her anemia as outlined above, believe that patient would benefit significantly from transfusion, and she does meet the guidelines for transfusion of Hgb <8 in a hospitalized postoperative patient, as well as those for a symptomatic patient with a Hgb <10. Risks and benefits were discussed with patient and she is agreeable to transfusion. Reports she has required transfusion in the past, 3 units after her other hip surgery. -type and cross, transfuse 2 units, will premedicate with tylenol and benadryl, or have patient take dose of pain medication prior to transfusion if due since that contains tylenol and do not want to exceed 3g/24 hrs 11/18 -s/p 2 units PRBCs yesterday, tolerated well -Hgb 7.7 --> 10.3 --> 10.5 11/19 - stable DISCHARGE - STABLE, NO FURTHER TRANSFUSIONS NEEDED Left Knee Pain 11/18 -hx of left patella fx in 2008 with orthopedic repair that has since been removed -3 view plain films on 11/10/17 show suspected recurrence of fracture, recommend CT if further evaluation is required -consider re-consult to ortho vs CT of left knee Weakness 11/17 -continue therapy with plans to discharge to IRF for more intensive therapy when ready 11/18 -pt continues to make steady progress, continue therapy then discharge to IRF when ready General Debility 11/17 -continue therapy with plans to discharge to IRF for more intensive therapy when ready Hypothyroidism -continue home medication -TSH checked 11/14, 3.38 Depression -continue home medication Anxiety -pt's home medication is 2 mg Xanax TID; this was decreased to 0.5 mg TID and hold for somnolence while patient was experiencing altered mental status secondary to her sepsis -patient's altered mental status has resolved, but find her dose to be quite significant for someone of her age, although likely she has been on for many years and required dose increases due to tolerance -patient feeling fine currently on the decreased dose, so will leave at 0.5 mg TID for now; if pt begins to feel anxious, she will let us know and we can adjust accordingly 11/18 -pt continues to do well on 0.5 mg Xanax at this time 11/19 - increase to 1.5mg TID now that her sensorium is clear. Recommend a very slow taper, no need to decrease again until she sees Dr Phillips. DISCHARGE - SEE ABOVE. FEN: Regular Diet DVT Ppx: Eliquis Dispo: Swing status, anticipate that patient will not be ready to go to IRF until at least Tuesday when the patient's abx are complete. Plan for DC Tuesday. Chief Complaint/HPI Chief Complaint/HPI Patient admitted to swing bed 11/16/17 after an inpatient stay; was admitted 11/10 for acute left hip fracture, s/p ORIF on 11/11/[address] Solo. Post- operatively patient developed HCAP and became septic, requiring IV antibiotics and close monitoring. She has been admitted to swing for continuation of her IV antibiotics, as well as continuation of PT and OT, with the plan to discharge to inpatient rehab once she is well enough. This morning the patient is awake and alert and essentially back to her baseline. She is sitting up in the chair and reports that she is feeling overall okay, but is having pain in her left knee, and is also feeling very fatigued and somewhat short of breath; she is visibly having increased work of breathing with conversation. Discussed with patient that her hemoglobin has remained low, and that today her blood showed some immature red blood cells, which is an indication that her body is showing signs of trying to keep up with the demands on it and having difficulty because of her anemia, and that my recommendation is a blood transfusion. Risks and benefits were discussed with patient, and she is agreeable to transfusion; reports that she had 3 units transfused after her right hip surgery. Patient also would like her daughter updated - called and spoke with pt's daughter, Ivette Chong at [phone]. Discharge Summary-Simple/Stand Consultations Discharge Physical Examination Allergies: Coded Allergies: morphine (Verified Adverse Reaction, Unknown, N/V, 12/03/09) Uncoded Allergies: TAPE (Allergy, Unknown, RASH, 08/12/08) Vitals & I&Os Vital Sign - Last 12Hours Date Time Temp Pulse Resp B/P (MAP) Pulse Ox O2 Delivery O2 Flow Rate FiO2 11/20/17 06:00 97.4 71 18 148/78 (101) 98 Room Air Intake and Output 11/20/17 00:00 Intake Total 1250 ml Output Total 1675 ml Balance -425 ml General Appearance: Alert, Oriented X3, Cooperative, No Acute Distress Respiratory: Clear to Auscultation, Normal Air Movement Cardiovascular: Regular Rate, Normal S1, Normal S2, No Murmurs, Gallops, Rubs Abdominal: Normal Bowel Sounds, Soft, No Tenderness, No Hepatosplenomegaly, No Masses Extremities: No Clubbing, No Cyanosis, No Edema Psych/Mental Status: Mental Status NL, Mood NL Hospital Course See final discharge diagnosis. Labs Laboratory Tests Test 11/17/17 23:00 11/18/17 05:05 11/18/17 17:14 11/19/17 04:53 Range/Units Hemoglobin 10.3 #L 10.5 L 10.2 L 11.5-16.0 G/DL Hematocrit 30 L 31 L 30 L 35-52 % White Blood Count 9.0 8.8 4.3-11.0 10^3/uL Red Blood Count 3.27 L 3.18 L 4.35-5.85 10^6/uL Mean Corpuscular Volume 94 96 80-99 FL Mean Corpuscular Hemoglobin 32 32 25-34 PG Mean Corpuscular Hemoglobin Concent 34 34 32-36 G/DL Red Cell Distribution Width 15.5 H 15.9 H 10.0-14.5 % Platelet Count 227 262 130-400 10^3/uL Mean Platelet Volume 9.6 9.8 7.4-10.4 FL Neutrophils (%) (Auto) 61 58 42-75 % Lymphocytes (%) (Auto) 25 28 12-44 % Monocytes (%) (Auto) 9 10 0-12 % Eosinophils (%) (Auto) 4 4 0-10 % Basophils (%) (Auto) 1 1 0-10 % Neutrophils # (Auto) 5.5 5.1 1.8-7.8 X 10^3 Lymphocytes # (Auto) 2.3 2.4 1.0-4.0 X 10^3 Monocytes # (Auto) 0.8 0.8 0.0-1.0 X 10^3 Eosinophils # (Auto) 0.4 H 0.4 H 0.0-0.3 10^3/uL Basophils # (Auto) 0.1 0.0 0.0-0.1 10^3/uL Sodium Level 138 139 135-145 MMOL/L Potassium Level 3.7 3.5 L 3.6-5.0 MMOL/L Chloride Level 107 106 98-107 MMOL/L Carbon Dioxide Level 22 23 21-32 MMOL/L Anion Gap 9 10 5-14 MMOL/L Blood Urea Nitrogen 9 8 7-18 MG/DL Creatinine 0.63 0.69 0.60-1.30 MG/DL Estimat Glomerular Filtration Rate > 60 > 60 BUN/Creatinine Ratio 14 12 Glucose Level 87 89 70-105 MG/DL Calcium Level 8.3 L 8.4 L 8.5-10.1 MG/DL Magnesium Level 2.0 2.0 1.8-2.4 MG/DL C-Reactive Protein High Sensitivity 4.73 H 3.28 H 0.00-0.50 MG/DL Lab Scanned Report Transfusion Reaction Form [id number] Radiology Reviewed 3 view Left Knee from 11/10/17: FINDINGS: The previous left knee exam of 03/13/2009 noted a comminuted displaced fracture of the mid body of the patella. This injury was subsequently repaired on 03/14/2009 with orthopedic screws and fixation wires. In the interval since the prior exam, the orthopedic hardware has been removed. There is a broad fracture extending through the body of the patella. The lateral view indicates that there is approximately 1.3 cm of diastasis between the main fracture fragments. There also appears to be a 1.4 x 2.4 cm comminuted fracture fragment overlying the main fracture fragments on the lateral view. I suspect this is along the medial aspect of the patella. No other fracture or acute bony abnormality is identified. There is no sign of a joint effusion or of lipohemarthrosis. There is nearly as much soft tissue edema along the anterior aspect of the patella as noted on the prior exam. IMPRESSION: 1. There does appear to have been a recurrent fracture of the mid body of the patella. If further evaluation of the injury to the patella is desired, then CT would be recommended. 2. There is no acute bony abnormality noted otherwise. 3. The results were discussed with Dr. Piedad Rao. Discharge Instructions to patient/family Please see electronic discharge instructions given to patient. Discharge Medications Reviewed and agree with Discharge Medication list on patient's Discharge Instruction sheet Clinical Quality Measures DVT/VTE Risk/Contraindication: Risk Factor Score Per Nursin Copy Copies To 1: FRANCESCO PHILLIPS MD, JULIE A MD Nov 20, 2017 11:22 am
[2017-11-20 18:20] VITALS: BP 125/74
[2017-11-20] MEDS: SIMvastatin 20 MG (ZOCOR) TAB PO SCH (21:14)
[2017-11-20] MEDS: QUEtiapine 25 MG (SEROquel) TAB IMMEDIATE RELEASE PO SCH (21:15)
[2017-11-21 06:00] VITALS: BP 135/60
[2017-11-21] MEDS: buPROPion SR 150 MG (WELLBUTRIN SR) TAB PO SCH (06:37)
[2017-11-21] MEDS: LEVOTHYROXINE 25 MCG (LEVOTHROID) TAB PO SCH (06:38)
[2017-11-21] MEDS: PANTOPRAZOLE 20 MG TABLET (PROTONIX) PO SCH (06:38)
[2017-11-21] MEDS: meTOprolol TARTRATE 25 MG (LOPRESSOR) TABLET PO SCH (08:16)
[2017-11-21] MEDS: ALPRAZolam 1 MG (XANAX) TAB PO SCH (08:16)
[2017-11-21] MEDS: APIXABAN 5 MG (ELIQUIS) TABLET PO SCH (08:16)
[2017-11-21] MEDS: FAMOTIDINE 20 MG (PEPCID) TABLET PO SCH (08:16)
[2017-11-21] MEDS: DOCUSATE SODIUM 100 MG (COLACE) CAP PO SCH (08:16)
[2017-11-21] MEDS: FLECAINIDE 100 MG (TAMBOCOR) TAB PO SCH (08:17)
[2017-11-21] MEDS: HYDROcodone/APAP 5 MG/325 MG (LORTAB) TAB PO PRN (08:17)
[2017-11-21 09:24] VITALS: BP 135/60
[2017-11-21] MEDS ORDERED: ALPR2TAB2 PO (13:06)
--- NOTE | 2017-11-21 16:31 | Therapy Team Discharge Summary ---
Therapy Discharge Summary Discharge Recommendations Date of Discharge Nov 21, 2017 at 09:25 Therapy D/C Recommendations: Acute Rehab Occupational Therapy Pt was seen for skilled Ot to increase her independence in basic self care to allow her to safely return to her home after a fall and hip replacement and to decrease caregiver burden. On admission she was setup for eating and grooming. She was seen for one more treatment and then, after the weekend, discharged to acute rehab unit. ADLs were not scored over the weekend. OT goals were not met due to discharge to acute rehab. DC SWB OT Decreased Activ Tolerance, Decreased Safety Aware, Decreased UE Strength, Dependent Transfers, Impaired Self-Care Skills PT Tube Teller Goals Halfway Goals PT Tube Teller Goals Time Frame: Nov 23, 2017 Transfers (B,C,W/C) (FIM): 5 Sit to Lying (QC): 5 Lying-Sitting on Side/Bed(QC): 5 Sit to Stand (QC): 5 Rollin Chair/Yse-sn-Twbhp Xfer(QC): 5 Does the Patient Walk: Yes Gait (FIM): 2 Gait distance (FIM): 8=103-40 ft Distance: 75' Walk 50ft with 2 Turns (QC): 5 Gait Level of Assist: 5 Gait Assistive Device: FWW OT Tube Teller Goals Tube Teller Goals Time Frame: Dec 02, 2017 Eating (FIM): 6 Eating (QC): 6 Groomin Oral Hygiene (QC): 6 Bathing(FIM): 5 Upper Body Dressing(FIM): 6 Lower Body Dressing(FIM): 6 Toileting(FIM): 6 Toileting Hygiene (QC): 6 Toilet/Commode Transfer(FIM): 6 Toilet/Commode Transfer (QC): 6 Tub Transfer(FIM): 5 (or shower) Shower Transfer(FIM): 5 (or tub) Additional Goals: 1-Demonstrate ADL Tasks, 2-Verbalize Understanding, 3- ImproveStrength/Ashley 1=Demonstrate adherence to instructed precautions during ADL tasks. 2=Patient will verbalize/demonstrate understanding of assistive devices/ modifications for ADL. 3=Patient will improve strength/tolerance for activity to enable patient to perform ADL's. PAUL MCDOWELL OT Nov 21, 2017 16:31
--- NOTE | 2017-11-22 12:07 | Therapy Team Discharge Summary ---
Therapy Discharge Summary Discharge Recommendations Date of Discharge Nov 21, 2017 at 09:25 Therapy D/C Recommendations: Acute Rehab Physical Therapy this patient was seen on SWB status post fracture of left hip that had been repaired. Prior to fracture, pt was living alone and indep to mod indep with all mobility. She resides at [facility] [place]. Upon admit, she was mod assist with tranfers, walked 45 ft with min assist; treatment consisted of functional strength, transfers, mobility and gait. At discharge, she is min assist with transfers, walked 300 Ft with FWW with assist. She is making functional progress but goals have not been met yet. She is to tranfer to ARU for continued skilled PT intervention. DC PT from sWB status at this time. Occupational Therapy Decreased Activ Tolerance, Decreased Safety Aware, Decreased UE Strength, Dependent Transfers, Impaired Self-Care Skills PT Mechanical Applications Engineer Goals Shelter Goals PT Mechanical Applications Engineer Goals Time Frame: Nov 23, 2017 Transfers (B,C,W/C) (FIM): 5 Sit to Lying (QC): 5 Lying-Sitting on Side/Bed(QC): 5 Sit to Stand (QC): 5 Rollin Chair/Bxf-qe-Wpinj Xfer(QC): 5 Does the Patient Walk: Yes Gait (FIM): 2 Gait distance (FIM): 8=349-32 ft Distance: 75' Walk 50ft with 2 Turns (QC): 5 Gait Level of Assist: 5 Gait Assistive Device: FWW Goals remain unmet, pt transferred to ARU for cotninued progressing of mobility. OT Mechanical Applications Engineer Goals Shelter Goals Time Frame: Dec 02, 2017 Eating (FIM): 6 Eating (QC): 6 Groomin Oral Hygiene (QC): 6 Bathing(FIM): 5 Upper Body Dressing(FIM): 6 Lower Body Dressing(FIM): 6 Toileting(FIM): 6 Toileting Hygiene (QC): 6 Toilet/Commode Transfer(FIM): 6 Toilet/Commode Transfer (QC): 6 Tub Transfer(FIM): 5 (or shower) Shower Transfer(FIM): 5 (or tub) Additional Goals: 1-Demonstrate ADL Tasks, 2-Verbalize Understanding, 3- ImproveStrength/Ashley 1=Demonstrate adherence to instructed precautions during ADL tasks. 2=Patient will verbalize/demonstrate understanding of assistive devices/ modifications for ADL. 3=Patient will improve strength/tolerance for activity to enable patient to perform ADL's. OMID FARRELL PT Nov 22, 2017 12:07
== END 2017-11-21 09:25 | DRG 195 ==
LOC: 4TH 14:38
PROVIDERS: ADMIT Family Medicine; ATTEND Family Medicine
DX: J18.9 Pneumonia, unspecified organism (principal); D64.9 Anemia, unspecified; I48.2 Chronic atrial fibrillation; I10 Essential (primary) hypertension; M25.562 Pain in left knee; R53.1 Weakness; R53.81 Other malaise; Z66 Do not resuscitate; E03.9 Hypothyroidism, unspecified; F41.9 Anxiety disorder, unspecified; F32.9 Major depressive disorder, single episode, unspecified; E83.51 Hypocalcemia; Z47.1 Aftercare following joint replacement surgery; Z96.642 Presence of left artificial hip joint; Z79.01 Long term (current) use of anticoagulants
CPT/HCPCS: 36415; 80048; 83735; 85007; 85014; 85018; 85025; 85027; 86141; 86850; 86900; 86901; 86920; 94664

== ENCOUNTER 2017-12-03 05:11 | Inpatient (IN) | payer MEDICARE ==
[~2017-12-03] VITALS: Ht 162.6 cm; Wt 59.2 kg
[~2017-12-03 05:11] MED LIST changes: +ALPR2TAB2 PO
[2017-12-03] MEDS ORDERED: SEVOFLURANE (ULTANE) 15 ML INHAL SOLN ONE ×6 (07:23→08:39)
[2017-12-03] MEDS ORDERED: proPOfol 200 MG/20 ML (DIPRIVAN) VIAL IV ONE (07:23)
[2017-12-03] MEDS ORDERED: fentaNYL INJECTION 100 MCG/2 ML AMP ONE ×2 (07:23→08:12)
[2017-12-03] MEDS ORDERED: LIDOCAINE PF 2% 5 ML (XYLOCAINE) VIAL ONE (07:23)
[2017-12-03] MEDS ORDERED: ceFAZolin 1,000 MG (ANCEF) VIAL ONE (07:32)
[2017-12-03] MEDS ORDERED: BUP/EPI 0.5% 1:200,000 (SENSORCAINE) 30 ML VIAL ONE (07:47)
[2017-12-03] MEDS ORDERED: PHENYLEPHRINE 100 MCG/ML 10 ML (ANESTHESIA) SYR ONE (08:01)
[2017-12-03] MEDS ORDERED: LACTATED RINGERS 1,000 ML IV PRN (08:08)
[2017-12-03] MEDS ORDERED: HYDROmorphone (DILAUDID) 2 MG/ML VIAL ONE (08:12)
[2017-12-03] MEDS ORDERED: ONDANSETRON 4 MG/2 ML (SDV) Z0FRAN ONE ×2 (08:13→08:41)
[2017-12-03] MEDS ORDERED: BUP/EPI 0.5% 1:200,000 (SENSORCAINE) 30 ML VIAL INJ ONE (08:15)
[2017-12-03] MEDS ORDERED: ceFAZolin 1,000 MG (ANCEF) VIAL IV ONE (08:15)
[2017-12-03] MEDS ORDERED: DEXAMETHASONE 10 MG/ML (DECADRON) 1 ML VIAL ONE (08:41)
--- NOTE | 2017-12-03 09:00 | Consultation ---
History of Present Illness History of Present Illness Patient Consulted On(garcia/time) 12/02/17 Date Seen by Provider: Dec 03, 2017 Time Seen by Provider: 07:15 Reason for Visit: Left distal radius fracture History of Present Illness Ms. Dorado is a pleasant 77 y/o RHD female that sustained a mechanical GLF landing on her outstretched Left hand while in the [facility] rehab unit recovering from her recent Left hip surgery. Plain XRs of the left wrist demonstrated a displaced fracture of the Left distal radius. XRs of the Left hip demonstrated a stable bipolar prosthesis, no signs of fracture or instability. Pt denies head trauma or other musculoskeletal injuries. She has no other musculoskeletal or constitutional complaints. Allergies and Home Medications Allergies Coded Allergies: morphine (Verified Adverse Reaction, Unknown, N/V, 12/03/09) Uncoded Allergies: TAPE (Allergy, Unknown, RASH, 08/12/08) Home Medications Acetaminophen 500 Mg Tablet, 1,000 MG PO Q6H PRN for PAIN-MILD, (Reported) TAKES 2 (500MG) TABLETS Alprazolam 2 Mg Tablet, 2 MG PO TID, (Reported) Apixaban 2.5 Mg Tablet, 2.5 MG PO BID, (Reported) Bupropion HCl 300 Mg Tab.er.24h, 300 MG PO DAILY, (Reported) Cholecalciferol (Vitamin D3) 1,000 Unit Capsule, 1,000 UNIT PO DAILY, (Reported) Docusate Sodium 100 Mg Capsule, 200 MG PO HS, (Reported) TAKES 2 (100MG) CAPSULES Flecainide Acetate 50 Mg Tablet, 50 MG PO BID, (Reported) Furosemide 20 Mg Tablet, 10 MG PO Q48H, (Reported) Levothyroxine Sodium 25 Mcg Tablet, 25 MCG PO DAILY, (Reported) Metoclopramide HCl 5 Mg Tablet, 10 MG PO BID WITH MEALS, (Reported) TAKES 2 (5MG) TABLETS WITH NOON AND EVENING MEAL Metoprolol Tartrate 25 Mg Tablet, 25 MG PO BID, (Reported) Omeprazole 20 Mg Capsule.dr, 20 MG PO DAILY, (Reported) Polyethylene Glycol 3350 17 Gm Powd.pack, 17 GM PO DAILY, (Reported) Polyethylene Glycol 3350 17 Gm Powd.pack, 17 GM PO HS PRN for CONSTIPATION-2ND LINE, (Reported) Pravastatin Sodium 40 Mg Tablet, 40 MG PO HS, (Reported) Past Yqchbuf-Rcpmcl-Xeqaxp Hx Patient Social History 2nd Hand Smoke Exposure: No Recent Foreign Travel: No Contact w/Someone Who Travel: No Recent Hopitalizations: Yes (discharged from inpatient status) Immunizations Up To Date Tetanus Booster (TDap): Unknown PED Vaccines UTD: Yes Date of Pneumonia Vaccine: Jul 24, 2010 Date of Influenza Vaccine: Jul 24, 2017 Seasonal Allergies Seasonal Allergies: No Surgeries History of Surgeries: Yes (RTH, KNEE,HEART CATH, BREAST BIOPSY, R ROTATOR CUFF) Surgeries: Appendectomy, Breast, Gallbladder, Joint Replacement, Oophorectomy, Orthopedic, Tonsillectomy, Tubal Ligation Respiratory History of Respiratory Disorde: No Cardiovascular History of Cardiac Disorders: Yes Cardiac Disorders: Atrial Fibrillation Neurological History of Neurological Disord: Yes (ANXIETY/DEPRESSION-BIPOLAR) Reproductive System Hx Reproductive Disorders: No Sexually Transmitted Disease: No HIV/AIDS: No Genitourinary History of Genitourinary Disor: No Gastrointestinal History of Gastrointestinal Di: Yes (CONSTIPATION ) Gastrointestinal Disorders: Hiatal Hernia Musculoskeletal History of Musculoskeletal Dis: Yes (LEFT HIP ORIF) Musculoskeletal Disorders: Fractures Endocrine History of Endocrine Disorders: Yes HEENT History of HEENT Disorders: No Cancer History of Cancer: No 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) Behavioral Health Disorders: Anxiety, Bipolar, Depression Integumentary History of Skin or Integumenta: No Blood Transfusions History of Blood Disorders: Yes (POST OP ANEMIA) Adverse Reaction to a Blood Tr: No Family Medical History Significant Family History: CAD Over 55 Years Old, Stroke Family Medial History: FH: stroke 19 FATHER G8 SISTER Myocardial infarction 19 FATHER G8 BROTHER G8 BROTHER Review of Systems-General Constitutional: no symptoms reported EENTM: no symptoms reported Respiratory: no symptoms reported Cardiovascular: no symptoms reported Gastrointestinal: no symptoms reported Genitourinary: no symptoms reported Musculoskeletal: other (Left wrist pain.) Skin: no symptoms reported Psychiatric/Neurological: No Symptoms Reported Physical Exam-General Problems Physical Exam Vital Signs Capillary Refill : General Appearance: WD/WN, no apparent distress Eyes: Bilateral Eye Normal Inspection, Bilateral Eye PERRL, Bilateral Eye EOMI HEENT: PERRL/EOMI, normal ENT inspection Neck: non-tender, full range of motion, supple Respiratory: no respiratory distress, no accessory muscle use Cardiovascular: normal peripheral pulses, regular rate, rhythm Peripheral Pulses: 4+ Radial Pulses (R) (Left radial pulse not assesed secondary to splint in place) Gastrointestinal: non tender, soft Extremities: other (LUE: wrist splint in place, motor/sensation grossly intact all digits, brisk cap refill all digits.) Neurologic/Psychiatric: crisis manager II-XII nml as tested, no motor/sensory deficits, alert, normal mood/affect, oriented x 3 Skin: warm/dry Assessment/Plan Assessment/Plan Admission Diagnosis/Plan A: Displaced extraarticular fracture Left distal radius secondary to mechanical GLF P: Injury is unstable and as such I have recommended surgical fixation, especially from a rehab perspective in light of her recent Left hip surgery. I have discussed the surgical plan in detail including the risks, benefits, potential complications and expected outcomes. All of the patients questions have been answered to her satisfaction. She has given informed written consent to proceed as planned. GUERO BROWN DO Dec 03, 2017 09:00
--- NOTE | 2017-12-03 09:04 | Diagnostic Imaging Report ---
INDICATION: Intraoperative fluoroscopy. Open reduction and internal fixation of wrist fracture. Comparison is made with plain films from 11/26/2017. FINDINGS: Intraoperative fluoroscopic images demonstrate open reduction and internal fixation of the patient's previous distal left radial metaphyseal fracture with a volar T plate and screw. Post reduction alignment appears anatomic. IMPRESSION: Intraoperative fluoroscopy is utilized during open reduction and internal fixation of the patient's prior distal left radial metaphyseal fracture. Dictated by: Dictated on workstation # [id number]
[2017-12-03] MEDS ORDERED: ONDANSETRON 4 MG/2 ML (SDV) Z0FRAN IVP PRN (09:15)
[2017-12-03] MEDS ORDERED: fentaNYL INJECTION 100 MCG/2 ML AMP IVP PRN (09:15)
[2017-12-03] MEDS ORDERED: ceFAZolin INJECTION 1,000 MG in NS (IVPB) 50 ML IV SCH (09:15)
[2017-12-03] MEDS ORDERED: POLYETHYLENE GLYCOL 17 GM (MIRALAX) PACK PO PRN (09:15)
--- NOTE | 2017-12-03 09:20 | Progress Note-Post Operative ---
Post-Operative Progess Note Surgeon (s)/Station Detective (s) Surgeon GUERO BROWN DO Station Detective: Arslan Brown PA-C Pre-Operative Diagnosis Displaced extraarticular fracture Left distal radius Post-Operative Diagnosis Same Procedure & Operative Findings Date of Procedure 12/03/17 Procedure Performed/Findings ORIF Left distal radius fracture; extraarticular fracture, 2 fragments Anesthesia Type General Estimated Blood Loss Estimated blood loss (mL): 5 mL Specimens/Packing Specimens Removed None GUERO BROWN DO Dec 03, 2017 09:20
[2017-12-03] MEDS: HYDROmorphone (DILAUDID) 2 MG/ML VIAL IVP PRN ×2 (09:30→09:40)
[2017-12-03] MEDS ORDERED: FLECAINIDE 100 MG (TAMBOCOR) TAB PO SCH ×2 (10:00→21:00)
[2017-12-03 10:30] VITALS: BP 154/67
[2017-12-03] MEDS: LACTATED RINGERS 1,000 ML IV PRN (10:46)
[2017-12-03] MEDS: FLECAINIDE 100 MG (TAMBOCOR) TAB PO SCH (12:28)
[2017-12-03] MEDS: HYDROcodone/APAP 5 MG/325 MG (LORTAB) TAB PO PRN ×2 (12:29→17:44)
[2017-12-03 12:30] VITALS: BP 148/78
[2017-12-03] MEDS ORDERED: ALPRAZolam 1 MG (XANAX) TAB PO SCH (13:00)
[2017-12-03] MEDS ORDERED: ALPRAZOLAM 2 MG PO SCH (13:00)
[2017-12-03] MEDS: ceFAZolin INJECTION 1,000 MG in NS (IVPB) 50 ML IV SCH ×2 (15:08→23:12)
[2017-12-03 16:30] VITALS: BP 120/58
[2017-12-03] MEDS: METOCLOPRAMIDE 5 MG (REGLAN) TAB PO SCH (17:44)
[2017-12-03 20:00] VITALS: BP 112/56
[2017-12-03] MEDS ORDERED: NON-FORMULARY MEDICATION 1 EA EA (Pravastatin Sodium 40 MG) PO SCH (21:00)
[2017-12-03] MEDS ORDERED: NON-FORMULARY MEDICATION 1 EA EA (Flecainide Acetate 50 MG) PO SCH (21:00)
[2017-12-03] MEDS: SIMvastatin 20 MG (ZOCOR) TAB PO SCH (21:03)
[2017-12-03] MEDS: APIXABAN 2.5 MG (ELIQUIS) TABLET PO SCH (21:03)
[2017-12-03] MEDS: meTOprolol TARTRATE 25 MG (LOPRESSOR) TABLET PO SCH (21:03)
[2017-12-03] MEDS: DOCUSATE SODIUM 100 MG (COLACE) CAP PO SCH (21:03)
[2017-12-03] MEDS: ALPRAZolam 1 MG (XANAX) TAB PO PRN (21:21)
[2017-12-04 00:35] VITALS: BP 100/55
[2017-12-04 04:40] VITALS: BP 106/55
[2017-12-04] MEDS: LEVOTHYROXINE 25 MCG (LEVOTHROID) TAB PO SCH (06:06)
[2017-12-04] MEDS: ceFAZolin INJECTION 1,000 MG in NS (IVPB) 50 ML IV SCH (06:06)
[2017-12-04] MEDS: METOCLOPRAMIDE 5 MG (REGLAN) TAB PO SCH ×2 (06:06→16:10)
[2017-12-04] MEDS: buPROPion SR 150 MG (WELLBUTRIN SR) TAB PO SCH ×2 (06:06→16:10)
[2017-12-04] MEDS: PANTOPRAZOLE 20 MG TABLET (PROTONIX) PO SCH (06:06)
[2017-12-04] MEDS: HYDROcodone/APAP 5 MG/325 MG (LORTAB) TAB PO PRN ×2 (06:17→10:34)
[2017-12-04] MEDS: APIXABAN 2.5 MG (ELIQUIS) TABLET PO SCH ×2 (08:07→20:31)
[2017-12-04] MEDS: POLYETHYLENE GLYCOL 17 GM (MIRALAX) PACK PO SCH (08:07)
[2017-12-04] MEDS: VITAMIN D3 1,000 UNITS (CHOLECALCIFEROL) TABLET PO SCH (08:07)
[2017-12-04] MEDS: FLECAINIDE 100 MG (TAMBOCOR) TAB PO SCH (08:07)
[2017-12-04] MEDS: meTOprolol TARTRATE 25 MG (LOPRESSOR) TABLET PO SCH ×2 (08:08→20:31)
[2017-12-04 08:30] VITALS: BP 109/55
[2017-12-04] MEDS ORDERED: OMEPRAZOLE 20 MG (PriLOSEC) CAP NON-FORMULARY PO SCH (09:00)
[2017-12-04] MEDS ORDERED: NON-FORMULARY MEDICATION 1 EA EA (Cholecalciferol (Vitamin D3) (Vitamin D3) 1,000 UNIT) PO SCH (09:00)
[2017-12-04] MEDS ORDERED: FUROSEMIDE 20 MG (LASIX) TAB PO SCH (09:00)
[2017-12-04] MEDS ORDERED: NON-FORMULARY MEDICATION 1 EA EA (Bupropion HCl (Bupropion Xl) 300 MG) PO SCH (09:00)
[2017-12-04] MEDS: ALPRAZolam 1 MG (XANAX) TAB PO PRN ×2 (10:33→22:01)
--- OUTSIDE RECORDS SUMMARY | 2017-12-04 11:03 | XMS REPORT | Continuity of Care Document ---
Author Author [facility] of [facility] Address Unknown Phone Unavailable Allergies Active Description Code Type Severity Reaction Onset Reported/Identified Relationship to Patient Clinical Status Yes TAPE TAPE Unknown RASH 08/12/2008 Yes morphine Drug Allergy N/A N/A 11/22/2008 Yes morphine Drug Allergy 11/22/2008 Yes morphine [id number] Drug Allergy Unknown N/V 12/03/2009 Yes Tape [...] Drug Medicinal And Biological Substance 10/15/2008 ALEX EPTER ANASTASIYA E939.9 Unspecified Psychotropic Agent Causing Adverse [...] FRANCESCO PHILLIPS MD 786.2 Cough 01/23/2009 STEEN BLUE LEATHER SORTER, DAMIÁN DONALD 530.11 ESOPHAGITIS CHRONIC REFLUX 01/23/2009 STEEN BLUE LEATHER SORTER, DAMIÁN DONALD 786.2 Cough 01/23/2009 WHITE DDS, [...] PETER, DAMIÁN DONALD 786.2 Cough 01/23/2009 ALEX BLUE LEATHER SORTER, ANASTASIYA 530.11 ESOPHAGITIS CHRONIC REFLUX 01/23/2009 ALEX BLUE LEATHER SORTER, ANASTASIYA 786.2 Cough 01/23/2009 ALAN HA, FRANCESCO 530.11 ESOPHAGITIS CHRONIC REFLUX 01/23/2009 FRANCESCO PHILLIPS MD 786.2 Cough 01/23/2009 ALEX BLUE LEATHER SORTER, ANASTASIYA 530.11 ESOPHAGITIS CHRONIC REFLUX 01/23/2009 ALEX BLUE LEATHER SORTER, ANASTASIYA 786.2 Cough 01/27/2009 ELAINE HANLEY DO 465.9 Upper Respiratory Infection 01/27/2009 ELAINE AHNLEY DO 465.9 Upper Respiratory Infection 01/27/2009 465.9 [...] MD 465.9 Upper Respiratory Infection 01/27/2009 CELSA BLUE LEATHER SORTER, DAMIÁN DONALD 465.9 Upper Respiratory Infection 01/27/2009 SHANNON BAZANS, SACHA Granados 465.9 Upper Respiratory Infection 01/27/2009 FRANCESCO PHILLIPS MD 465.9 Upper Respiratory Infection 01/27/2009 FRANCESCO PHILLIPS MD 465.9 Upper Respiratory Infection 01/27/2009 CELSA PETER, DAMIÁN DONALD 465.9 Upper Respiratory Infection 01/27/2009 ALEX BLUE LEATHER SORTER, ANASTASIYA 465.9 Upper Respiratory Infection 01/27/2009 FRANCESCO PHILLIPS MD 465.9 Upper Respiratory Infection 01/27/2009 ALEX BLUE LEATHER SORTER, ANASTASIYA 465.9 Upper Respiratory Infection 02/25/2009 ELAINE [...] ELAINE F 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 04/07/2009 ANEDER DO, ELAINE F 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 [...] DONALD 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 04/07/2009 ALEX BLUE LEATHER SORTER, ANASTASIYA 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 04/07/2009 ALEX BLUE LEATHER SORTER, ANASTASIYA 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 04/07/2009 FRANCESCO PHILLIPS MD 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 04/07/2009 FRANCESCO PHILLIPS MD 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 04/07/2009 ALEX BLUE LEATHER SORTER, ANASTASIYA 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 04/07/2009 ALEX [...] Finger Of Right Ring Finger 04/08/2009 ALEX BLUE LEATHER SORTER, ANASTASIYA 272.4 HYPERLIPIDEMIA 04/08/2009 ALEX BLUE LEATHER SORTER, ANASTASIYA 727.03 Trigger Finger Of Right Ring Finger 04/08/2009 FRANCESCO PHILLIPS MD 272.4 HYPERLIPIDEMIA 04/08/2009 FRANCESCO PHILLIPS MD 727.03 Trigger Finger Of Right Ring Finger 04/08/2009 ALEX BLUE LEATHER SORTER, ANASTASIYA 272.4 HYPERLIPIDEMIA 04/08/2009 ALEX BLUE LEATHER SORTER, ANASTASIYA 727.03 Trigger Finger Of Right Ring [...] To General Surgery 05/16/2009 CELSA PETER, DAMIÁN DNOALD 785.2 Murmurs, Undiagnosed Cardiac 05/16/2009 CELSA PETER, [...] APRN, DAMIÁN DONALD 787.02 Nausea 07/11/2009 ALEX BLUE LEATHER SORTER, ANASTASIYA 787.02 Nausea 07/11/2009 FRANCESCO PHILLIPS MD 787.02 Nausea 07/11/2009 ALEX BLUE LEATHER SORTER, ANSATASIYA 787.02 Nausea 08/14/2009 ELAINE HANLEY DO V16.9 [...] Nos 04/16/2010 WERDER DO, ELAINE F V72.31 Refrigerated Company Driver Exam, Routine 04/16/2010 DAYAN DO ELAINE F 455.6 Hemorrhoids Nos 04/16/2010 DAYAN DO ELAINE F V72.31 Refrigerated Company Driver Exam, Routine 04/16/2010 455.6 Hemorrhoids Nos 04/16/2010 V72.31 Refrigerated Company Driver Exam, Routine 04/16/2010 455.6 Hemorrhoids Nos 04/16/2010 V72.31 Refrigerated Company Driver Exam, Routine 04/16/2010 DAYAN DO ELAINE F 455.6 Hemorrhoids Nos 04/16/2010 NAEDER DO ELAINE F V72.31 Refrigerated Company Driver Exam, Routine 04/16/2010 WERDER DO ELAINE F 455.6 Hemorrhoids Nos 04/16/2010 NAEDER DO ELAINE F V72.31 Refrigerated Company Driver Exam, Routine 04/16/2010 455.6 Hemorrhoids Nos 04/16/2010 V72.31 Refrigerated Company Driver Exam, Routine 04/16/2010 455.6 Hemorrhoids Nos 04/16/2010 V72.31 Refrigerated Company Driver Exam, Routine 04/16/2010 455.6 Hemorrhoids Nos 04/16/2010 V72.31 Refrigerated Company Driver Exam, Routine 04/16/2010 FRANCESCO PHILLIPS MD 455.6 Hemorrhoids Nos 04/16/2010 FRANCESCO PHILLIPS MD V72.31 Refrigerated Company Driver Exam, Routine 04/16/2010 ELAINE HANLEY DO 455.6 Hemorrhoids Nos 04/16/2010 ELAINE HANLEY DO F V72.31 Refrigerated Company Driver Exam, Routine 04/16/2010 FRANCESCO PHILLIPS MD 455.6 Hemorrhoids Nos 04/16/2010 FRANCESCO PHILLIPS MD V72.31 Refrigerated Company Driver Exam, Routine 04/16/2010 DAMIÁN STEEN APRN 455.6 Hemorrhoids Nos 04/16/2010 DAMIÁN STEEN APRN V72.31 Refrigerated Company Driver Exam, Routine 04/16/2010 WHITE DDS, SACHA J 455.6 Hemorrhoids Nos 04/16/2010 WHITE DDS, SACHA J V72.31 Refrigerated Company Driver Exam, Routine 04/16/2010 FRANCESCO PHILLIPS MD 455.6 Hemorrhoids Nos 04/16/2010 FRANCESCO PHILLIPS MD V72.31 Refrigerated Company Driver Exam, Routine 04/16/2010 FRANCESCO PHILLIPS MD 455.6 Hemorrhoids Nos 04/16/2010 FRANCESCO PHILLIPS MD V72.31 Refrigerated Company Driver Exam, Routine 04/16/2010 STEEN BLUE LEATHER SORTER, DAMIÁN DONALD 455.6 Hemorrhoids Nos 04/16/2010 STEEN BLUE LEATHER SORTER, DAMIÁN DONALD V72.31 Refrigerated Company Driver Exam, Routine 04/16/2010 ALEX BLUE LEATHER SORTER, ANASTASIYA 455.6 Hemorrhoids Nos 04/16/2010 ALEX BLUE LEATHER SORTER, ANASTASIYA V72.31 Refrigerated Company Driver Exam, Routine 04/16/2010 FRANCESCO PHILLIPS MD 455.6 Hemorrhoids Nos 04/16/2010 FRANCESCO PHILLIPS MD V72.31 Refrigerated Company Driver Exam, Routine 04/16/2010 ALEX BLUE LEATHER SORTER, ANASTASIYA 455.6 Hemorrhoids Nos 04/16/2010 ALEX BLUE LEATHER SORTER, ANASTASIYA V72.31 Refrigerated Company Driver Exam, Routine 07/10/2010 Ot 719.41 07/10/2010 Ot [...] V68.1 Issue Of Repeat Prescriptions 12/04/2010 STEEN BLUE LEATHER SORTER, DAMIÁN DONALD 780.4 Dizziness And Vertigo 12/04/2010 DAMIÁN STEEN APRN V65.49 Other Specified Counseling 12/04/2010 DAMIÁN STEEN APRN V68.1 Issue Of Repeat Prescriptions 12/04/2010 ALEX BLUE LEATHER SORTER, ANASTASIYA 780.4 Dizziness And Vertigo 12/04/2010 ALEX BLUE LEATHER SORTER ANASTASIYA V65.49 Other Specified Counseling 12/04/2010 ALEX BLUE LEATHER SORTER ANASTASIYA V68.1 Issue Of Repeat Prescriptions 12/04/2010 FRANCESCO PHILLIPS MD 780.4 Dizziness And Vertigo 12/04/2010 FRANCESCO PHILLIPS MD V65.49 Other Specified Counseling 12/04/2010 FRANCESCO PHILLIPS MD V68.1 Issue Of Repeat Prescriptions 12/04/2010 ALEX BLUE LEATHER SORTER ANASTASIYA 780.4 Dizziness And Vertigo 12/04/2010 ALEX BLUE LEATHER SORTER, ANASTASIYA V65.49 Other Specified Counseling 12/04/2010 ALEX BLUE LEATHER SORTER, ANASTASIYA V68.1 Issue Of Repeat Prescriptions 03/02/2011 [...] MD 780.79 MALAISE AND FATIGUE 03/24/2011 STEEN BLUE LEATHER SORTER, DAMIÁN NEGRETEH 285.9 ANEMIA 03/24/2011 CELSA PETER, DAMIÁN NEGRETEH 780.79 MALAISE AND FATIGUE 03/24/2011 ALEX BLUE LEATHER SORTER, ANASTASIYA 285.9 ANEMIA 03/24/2011 ALEX BLUE LEATHER SORTER, ANASTASIYA 780.79 MALAISE AND FATIGUE 03/24/2011 FRANCESCO PHILLIPS MD 285.9 ANEMIA 03/24/2011 FRANCESCO PHILLIPS MD 780.79 MALAISE AND FATIGUE 03/24/2011 ALEX BLUE LEATHER SORTER, ANASTASIYA 285.9 ANEMIA 03/24/2011 ALEX BLUE LEATHER SORTER, ANASTASIYA 780.79 MALAISE AND FATIGUE 05/12/2011 ELAINE [...] Nonspecific Abnormal Findings In Stool Contents 03/13/2012 EALINE HANLEY DO V16.0 Family History Of Malignant [...] 11/11/2015 Ot V72.84 12/09/2015 NEW, TOMY G. RESEARCH ENVIRONMENTAL ENGINEER-C Ot E03.9 12/09/2015 NEW, TOMY G. RESEARCH ENVIRONMENTAL ENGINEER-C Ot E78.5 12/09/2015 NEW, TOMY G. RESEARCH ENVIRONMENTAL ENGINEER-C Ot F32.9 12/09/2015 NEW, TOMY G. RESEARCH ENVIRONMENTAL ENGINEER-C Ot F41.9 12/09/2015 NEW, TOMY G. RESEARCH ENVIRONMENTAL ENGINEER-C Ot I13.10 12/09/2015 NEW, TOMY G. RESEARCH ENVIRONMENTAL ENGINEER-C Ot M19.90 12/09/2015 NEW, TOMY G. RESEARCH ENVIRONMENTAL ENGINEER-C Ot N18.3 12/09/2015 NEW, TOMY G. RESEARCH ENVIRONMENTAL ENGINEER-C Ot R80.9 12/11/2015 NEW, TOMY G. RESEARCH ENVIRONMENTAL ENGINEER-C Ot E03.9 12/11/2015 NEW, TOMY G. RESEARCH ENVIRONMENTAL ENGINEER-C Ot E78.5 12/11/2015 NEW, TOMY G. RESEARCH ENVIRONMENTAL ENGINEER-C Ot F32.9 12/11/2015 NEW, TOMY G. RESEARCH ENVIRONMENTAL ENGINEER-C Ot F41.9 12/11/2015 NEW, TOMY G. RESEARCH ENVIRONMENTAL ENGINEER-C Ot I13.10 12/11/2015 NEW, TOMY G. RESEARCH ENVIRONMENTAL ENGINEER-C Ot M19.90 12/11/2015 NEW, TOMY G. RESEARCH ENVIRONMENTAL ENGINEER-C Ot N18.3 12/11/2015 NEW, TOMY G. RESEARCH ENVIRONMENTAL ENGINEER-C Ot R80.9 04/15/2016 GRACIELA HA, SARA Heaton [...] BREATH 08/23/2016 KEVIN MCCULLOUGH MD Ot Z79.01 RETIREMENT (CURRENT) USE OF 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 08/23/2016 KEVIN MCCULLOUGH MD Ot Z79.82 WELDING MACHINE OPERATOR GAS METAL ARC (CURRENT) USE OF ASPIRIN 08/23/2016 KEVIN MCCULLOUGH MD Ot Z79.899 OTHER WELDING MACHINE OPERATOR GAS METAL ARC (CURRENT) DRUG THERAPY 08/24/2016 KEVIN MCCULLOUGH MD Ot I48.91 UNSPECIFIED ATRIAL FIBRILLATION 08/24/2016 KEVIN MCCULLOUGH MD, Ot J90 PLEURAL EFFUSION, 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 08/24/2016 KEVIN MCCULLOUGH MD Ot R06.02 SHORTNESS OF BREATH 08/24/2016 KEVIN MCCULLOUGH MD Ot Z79.01 RETIREMENT (CURRENT) USE OF 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 08/24/2016 KEVIN MCCULLOUGH MD Ot Z79.82 RETIREMENT (CURRENT) USE OF ASPIRIN 08/24/2016 JAMEL HA, KEVIN Thomas Ot Z79.899 OTHER RETIREMENT (CURRENT) DRUG THERAPY 09/23/2016 JAN CRAIN MD, Ot I48.1 PERSISTENT ATRIAL FIBRILLATION 09/23/2016 JAN CRAIN MD Ot I48.1 PERSISTENT ATRIAL FIBRILLATION 09/24/2016 JAN CRAIN MD, Ot 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 09/27/2016 JAN CRAIN MD Ot I50.33 ACUTE ON CHRONIC DIASTOLIC (CONGESTIVE) 09/27/2016 JAN CRAIN MD, Ot Z79.01 RETIREMENT (CURRENT) USE OF 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 09/27/2016 Ot V72.84 [...] (CONGESTIVE) 09/27/2016 JAN CRAIN MD, Ot 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 09/28/2016 JAN CRAIN MD Ot Z51.81 ENCOUNTER FOR THERAPEUTIC DRUG LEVEL MON 09/28/2016 JAN CRAIN MD Ot Z79.01 RETIREMENT (CURRENT) USE OF 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 09/28/2016 TOMY HILARIO NP-C Ot D50.9 IRON DEFICIENCY ANEMIA, UNSPECIFIED 09/28/2016 SULAIMAN TOMY Lou RESEARCH ENVIRONMENTAL ENGINEER-C Ot D63.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 09/28/2016 SULAIMANTOMY RESEARCH ENVIRONMENTAL ENGINEER-C Ot N18.3 CHRONIC KIDNEY DISEASE, STAGE 3 (MODERAT 09/29/2016 SULAIMAN TOMY Lou RESEARCH ENVIRONMENTAL ENGINEER-C Ot D50.9 IRON DEFICIENCY ANEMIA, UNSPECIFIED 09/29/2016 NEW TOMY Lou RESEARCH ENVIRONMENTAL ENGINEER-C Ot D63.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 09/29/2016 NEW TOMY Lou RESEARCH ENVIRONMENTAL ENGINEER-C Ot N18.3 CHRONIC KIDNEY DISEASE, STAGE 3 (MODERAT 10/01/2016 BREANN HA, JAN L Ot I48.91 UNSPECIFIED ATRIAL FIBRILLATION 10/01/2016 BREANN HA, JAN L Ot I50.9 HEART FAILURE, UNSPECIFIED 10/01/2016 BREANN HA, JAN L Ot Z79.02 RETIREMENT (CURRENT) USE OF ANTITHROMBOTI 10/01/2016 BREANN HA, JAN L Ot Z79.899 OTHER RETIREMENT (CURRENT) DRUG THERAPY 10/01/2016 SULAIMAN TOMY ErnstBrian RESEARCH ENVIRONMENTAL ENGINEER-C Ot D50.9 IRON DEFICIENCY ANEMIA, UNSPECIFIED 10/01/2016 NEW TOMY Lou RESEARCH ENVIRONMENTAL ENGINEER-C Ot D63.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 10/01/2016 SULAIMAN TOMY Lou RESEARCH ENVIRONMENTAL ENGINEER-C Ot N18.3 CHRONIC KIDNEY DISEASE, STAGE 3 (MODERAT 10/01/2016 OTHER, UNLISTED Ot Z51.81 ENCOUNTER FOR THERAPEUTIC DRUG LEVEL MON 10/01/2016 OTHER, UNLISTED Ot Z79.01 RETIREMENT (CURRENT) USE OF 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 10/04/2016 SULAIMAN TOMY ErnstBrian KHAN-C Ot D50.9 IRON DEFICIENCY ANEMIA, UNSPECIFIED 10/04/2016 NEW TOMY ErnstBrian RESEARCH ENVIRONMENTAL ENGINEER-C Ot D63.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 10/04/2016 SULAIMAN TOMY Lou RESEARCH ENVIRONMENTAL ENGINEER-C Ot N18.3 CHRONIC KIDNEY DISEASE, STAGE 3 (MODERAT 10/06/2016 SULAIMAN TOMY Lou RESEARCH ENVIRONMENTAL ENGINEER-C Ot D50.9 IRON DEFICIENCY ANEMIA, UNSPECIFIED 10/06/2016 NEW TOMY ErnstBrian RESEARCH ENVIRONMENTAL ENGINEER-C Ot D63.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 10/06/2016 SULAIMAN TOMY Lou RESEARCH ENVIRONMENTAL ENGINEER-C Ot N18.3 CHRONIC KIDNEY DISEASE, STAGE 3 (MODERAT 10/11/2016 JAN CRAIN MD L Ot Z51.81 ENCOUNTER FOR THERAPEUTIC DRUG LEVEL MON 10/11/2016 JAN CRAIN MD L Ot 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 10/12/2016 JAN CRAIN MD L Ot Z51.81 ENCOUNTER FOR THERAPEUTIC DRUG LEVEL MON 10/12/2016 JAN CRAIN MD L Ot Z79.01 RETIREMENT (CURRENT) USE OF 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 10/13/2016 JAN CRAIN MD L Ot I48.1 PERSISTENT ATRIAL FIBRILLATION 10/14/2016 JAN CRAIN MD L Ot Z79.01 RETIREMENT (CURRENT) USE OF 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 10/14/2016 JAN CRAIN MD L Ot Z51.81 ENCOUNTER FOR THERAPEUTIC DRUG LEVEL MON 10/14/2016 JAN CRAIN MD L Ot Z79.01 RETIREMENT (CURRENT) USE OF 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 10/15/2016 JAN CRAIN MD L Ot Z51.81 ENCOUNTER FOR THERAPEUTIC DRUG LEVEL MON 10/15/2016 JAN CRAIN MD L Ot Z79.01 RETIREMENT (CURRENT) USE OF 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 10/21/2016 JAN CRAIN MD Ot I50.33 ACUTE ON CHRONIC DIASTOLIC (CONGESTIVE) 10/21/2016 JAN CRAIN MD L Ot 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 10/21/2016 JAN CRAIN MD L Ot Z51.81 ENCOUNTER FOR THERAPEUTIC DRUG LEVEL MON 10/21/2016 JAN CRAIN MD L Ot 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 10/22/2016 JAN CRAIN MD L Ot I48.91 UNSPECIFIED ATRIAL FIBRILLATION 10/22/2016 JAN CRAIN MD L Ot I48.91 UNSPECIFIED ATRIAL FIBRILLATION 10/22/2016 JAN CRAIN MD L Ot I50.9 HEART FAILURE, UNSPECIFIED 10/22/2016 JAN CRAIN MD L Ot Z79.02 WELDING MACHINE OPERATOR GAS METAL ARC (CURRENT) USE OF ANTITHROMBOTI 10/22/2016 JAN CRAIN MD L Ot Z79.899 OTHER WELDING MACHINE OPERATOR GAS METAL ARC (CURRENT) DRUG THERAPY 10/22/2016 OTHER, UNLISTED Ot Z51.81 ENCOUNTER FOR THERAPEUTIC DRUG LEVEL MON 10/22/2016 OTHER, UNLISTED Ot Z79.01 RETIREMENT (CURRENT) USE OF 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 10/22/2016 JAN CRAIN MD L Ot I48.91 UNSPECIFIED ATRIAL FIBRILLATION 10/22/2016 JAN CRAIN MD L Ot Z79.01 RETIREMENT (CURRENT) USE OF 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 10/28/2016 JAN CRAIN MD L Ot Z51.81 ENCOUNTER FOR THERAPEUTIC DRUG LEVEL MON 10/28/2016 JAN CRAIN MD L Ot Z79.01 RETIREMENT (CURRENT) USE OF 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 11/01/2016 JAN CRANI MD L Ot Z51.81 ENCOUNTER FOR THERAPEUTIC DRUG LEVEL MON 11/01/2016 JAN CRAIN MD L Ot 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 11/01/2016 JAN CRAIN MD L Ot Z51.81 ENCOUNTER FOR THERAPEUTIC DRUG LEVEL MON 11/01/2016 JAN CRAIN MD L Ot Z79.01 RETIREMENT (CURRENT) USE OF 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 11/05/2016 JAN CRAIN MD L Ot Z51.81 ENCOUNTER FOR THERAPEUTIC DRUG LEVEL MON 11/05/2016 JAN CRAIN MD L Ot Z79.01 RETIREMENT (CURRENT) USE OF 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 11/11/2016 JAN CRAIN MD L Ot I48.91 UNSPECIFIED ATRIAL FIBRILLATION 11/11/2016 JAN CRAIN MD L Ot Z79.01 RETIREMENT (CURRENT) USE OF 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 11/18/2016 JAN CRAIN MD L Ot Z51.81 ENCOUNTER FOR THERAPEUTIC DRUG LEVEL MON 11/18/2016 RAJWINDER CRAIN MDCY L Ot Z79.01 RETIREMENT (CURRENT) USE OF 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 12/20/2016 TOMY HILARIO RESEARCH ENVIRONMENTAL ENGINEER-C Ot D50.9 IRON DEFICIENCY ANEMIA, UNSPECIFIED 12/20/2016 TOMY HILARIO RESEARCH ENVIRONMENTAL ENGINEER-C Ot D63.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 12/20/2016 TOMY HILARIO RESEARCH ENVIRONMENTAL ENGINEER-C Ot N18.3 CHRONIC KIDNEY DISEASE, STAGE 3 (MODERAT 12/23/2016 TOMY HILARIO RESEARCH ENVIRONMENTAL ENGINEER-C Ot D50.9 IRON DEFICIENCY ANEMIA, UNSPECIFIED 12/23/2016 TOMY HILARIO RESEARCH ENVIRONMENTAL ENGINEER-C Ot D63.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 12/23/2016 TOMY HILARIO RESEARCH ENVIRONMENTAL ENGINEER-C Ot N18.3 CHRONIC KIDNEY DISEASE, STAGE 3 (MODERAT 12/26/2016 NEW, TOMY G. RESEARCH ENVIRONMENTAL ENGINEER-C Ot D50.9 IRON DEFICIENCY ANEMIA, UNSPECIFIED 12/26/2016 SULAIMAN TOMY ErnstBrian RESEARCH ENVIRONMENTAL ENGINEER-C Ot D63.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 12/26/2016 RONNIE HILARIOIlya ErnstBrian RESEARCH ENVIRONMENTAL ENGINEER-C Ot N18.3 CHRONIC KIDNEY DISEASE, STAGE 3 (MODERAT 11/09/2017 BIN KITCHEN MD Ot F31.9 BIPOLAR DISORDER, UNSPECIFIED 11/09/2017 BIN KITCHEN MD, Ot F41.9 ANXIETY DISORDER, UNSPECIFIED 11/09/2017 BIN KITCHEN MD Ot I48.91 UNSPECIFIED ATRIAL FIBRILLATION 11/09/2017 BIN KITCHEN MD Ot K59.00 CONSTIPATION, UNSPECIFIED 11/09/2017 BIN KITCHEN MD Ot S50.312A ABRASION OF LEFT ELBOW, INITIAL ENCOUNTE 11/09/2017 BIN KITCHEN MD Ot S72.002A FRACTURE OF UNSP PART OF NECK OF LEFT FE 11/09/2017 BIN KITCHEN MD Ot W18.39XA OTHER FALL ON SAME LEVEL, INITIAL ENCOUN 11/09/2017 BIN KITCHEN MD Ot Y92.[address] IN UNSP NON-INSTITUT (PRIVATE 11/09/2017 IMTIAZ HA, BIN Escobedo Ot Z66 DO NOT RESUSCITATE 11/09/2017 BIN KITCHEN MD Ot 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 11/09/2017 BIN KITCHEN MD Ot Z96.641 PRESENCE OF RIGHT ARTIFICIAL HIP JOINT 11/09/2017 BIN KITCHEN MD, Ot F31.9 BIPOLAR DISORDER, UNSPECIFIED 11/09/2017 BIN KITCHEN MD, Ot F41.9 ANXIETY DISORDER, UNSPECIFIED 11/09/2017 BIN KITCHEN MD Ot I48.91 UNSPECIFIED ATRIAL FIBRILLATION 11/09/2017 BIN KITCHEN MD Ot K59.00 CONSTIPATION, UNSPECIFIED 11/09/2017 BIN KITCHEN MD Ot S50.312A ABRASION OF LEFT ELBOW, INITIAL ENCOUNTE 11/09/2017 BIN KITCHEN MD Ot S72.002A FRACTURE OF UNSP PART OF NECK OF LEFT FE 11/09/2017 BIN KITCHEN MD Ot W18.39XA OTHER FALL ON SAME LEVEL, INITIAL ENCOUN 11/09/2017 BIN KITCHEN MD Ot Y92.[address] [facility] 11/09/2017 BIN KITCHEN MD Ot Z66 DO NOT RESUSCITATE 11/09/2017 BIN KITCHEN MD Ot Z79.01 RETIREMENT (CURRENT) USE OF 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 11/09/2017 BIN KITCHEN MD Ot Z96.641 PRESENCE OF RIGHT ARTIFICIAL HIP JOINT 11/09/2017 BIN KITCHEN MD Ot F31.9 BIPOLAR DISORDER, UNSPECIFIED 11/09/2017 BIN KITCHEN MD Ot F41.9 ANXIETY DISORDER, UNSPECIFIED 11/09/2017 BIN KITCHEN MD Ot I48.91 UNSPECIFIED ATRIAL FIBRILLATION 11/09/2017 BIN KITCHEN MD Ot K59.00 CONSTIPATION, UNSPECIFIED 11/09/2017 BIN KITCHEN MD Ot S50.312A ABRASION OF LEFT ELBOW, INITIAL ENCOUNTE 11/09/2017 BIN KITCHEN MD Ot S72.002A FRACTURE OF UNSP PART OF NECK OF LEFT FE 11/09/2017 BIN KITCHEN MD Ot W18.39XA OTHER FALL ON SAME LEVEL, INITIAL ENCOUN 11/09/2017 BIN KITCHEN MD Ot Y92.[address] IN [facility] NON-INST[facility] (PRIVATE 11/09/2017 BIN KITCHEN MD Ot Z66 DO NOT RESUSCITATE 11/09/2017 BIN KITCHEN MD Ot Z79.01 RETIREMENT (CURRENT) USE OF 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 11/09/2017 BIN KITCHEN MD Ot Z96.641 PRESENCE OF RIGHT ARTIFICIAL HIP JOINT 11/16/2017 BIN KITCHEN MD Ot A41.9 SEPSIS, UNSPECIFIED ORGANISM 11/16/2017 BIN KITCHEN MD Ot D62 ACUTE POSTHEMORRHAGIC ANEMIA 11/16/2017 BIN KITCHEN MD Ot E83.51 HYPOCALCEMIA 11/16/2017 BIN KITCHEN MD Ot E87.1 HYPO-OSMOLALITY AND HYPONATREMIA 11/16/2017 BIN KITCHEN MD Ot F31.9 BIPOLAR DISORDER, UNSPECIFIED 11/16/2017 BIN KITCHEN MD Ot F41.9 ANXIETY DISORDER, UNSPECIFIED 11/16/2017 BIN KITCHEN MD Ot I48.2 CHRONIC ATRIAL FIBRILLATION 11/16/2017 BIN KITCHEN MD, Ot J18.9 PNEUMONIA, UNSPECIFIED ORGANISM 11/16/2017 BIN KITCHEN MD, Ot J98.11 ATELECTASIS 11/16/2017 BIN KITCHEN MD, Ot K44.9 DIAPHRAGMATIC HERNIA WITHOUT OBSTRUCTION 11/16/2017 BIN KITCHEN MD, Ot K59.00 CONSTIPATION, UNSPECIFIED 11/16/2017 BIN KITCHEN MD, Ot M25.562 PAIN IN LEFT KNEE 11/16/2017 BIN KITCHEN MD, Ot S50.312A ABRASION OF LEFT ELBOW, INITIAL ENCOUNTE 11/16/2017 BIN KITCHEN MD, Ot S72.012A UNSP INTRACAPSULAR FRACTURE OF LEFT FEMU 11/16/2017 BIN KITCHEN MD, Ot W18.39XA OTHER FALL ON SAME LEVEL, INITIAL ENCOUN 11/16/2017 BIN KITCHEN MD, Ot Y92.[address] [facility] 11/16/2017 BIN KITCHEN MD, Ot Z66 DO NOT RESUSCITATE 11/16/2017 BIN KITCHEN MD, Ot 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 11/16/2017 BIN KITCHEN MD, Ot Z96.641 PRESENCE OF RIGHT ARTIFICIAL HIP JOINT 11/21/2017 MEENA KESSLER DO, Ot D64.9 ANEMIA, UNSPECIFIED 11/21/2017 MEENA KESSLER DO, Ot E03.9 HYPOTHYROIDISM, UNSPECIFIED 11/21/2017 MEENA KESSLER DO, Ot E83.51 HYPOCALCEMIA 11/21/2017 MEENA KESSLER DO, Ot F32.9 MAJOR DEPRESSIVE DISORDER, SINGLE EPISOD 11/21/2017 MEENA KESSLER DO, Ot F41.9 ANXIETY DISORDER, UNSPECIFIED 11/21/2017 MEENA KESSLER DO, Ot I10 ESSENTIAL (PRIMARY) HYPERTENSION 11/21/2017 MEENA KESLSER DO Ot I48.2 CHRONIC ATRIAL FIBRILLATION 11/21/2017 MEENA KESSLER DO, Ot J18.9 PNEUMONIA, UNSPECIFIED ORGANISM 11/21/2017 MEENA KESSLER DO, Ot M25.562 PAIN IN LEFT KNEE 11/21/2017 BARNIDGE DOMEENA Ot R53.1 WEAKNESS 11/21/2017 BARNIE DOMEENA Ot R53.81 OTHER MALAISE 11/21/2017 BARNIE DOMEENA Ot Z47.1 AFTERCARE FOLLOWING JOINT REPLACEMENT MCDONALD 11/21/2017 BELLAMEENA Pires DO Ot Z66 DO NOT RESUSCITATE 11/21/2017 [facility] 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 11/21/2017 MARYLOUNIE DOMEENA Ot Z96.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 11/21/2017 MEENA KESSLER DO Ot D64.9 ANEMIA, UNSPECIFIED 11/21/2017 [facility] Ot E03.9 HYPOTHYROIDISM, UNSPECIFIED 11/21/2017 [facility] CLAYTON Ot E83.51 HYPOCALCEMIA 11/21/2017 BELLAMEENA Pires DO Ot F32.9 MAJOR DEPRESSIVE DISORDER, SINGLE EPISOD 11/21/2017 [facility] Ot F41.9 ANXIETY DISORDER, UNSPECIFIED 11/21/2017 BELLAMEENA Pires DO Ot I10 ESSENTIAL (PRIMARY) HYPERTENSION 11/21/2017 BELLAMEENA Pires DO Ot I48.2 CHRONIC ATRIAL FIBRILLATION 11/21/2017 MEENA KESSLER DO Ot J18.9 PNEUMONIA, UNSPECIFIED ORGANISM 11/21/2017 MEENA KESSLER DO Ot M25.562 PAIN IN LEFT KNEE 11/21/2017 CHECO DOMEENA Ot R53.1 WEAKNESS 11/21/2017 BARMARYSOLMEENA Pires DO Ot R53.81 OTHER MALAISE 11/21/2017 MEENA KESSLER DO Ot Z47.1 AFTERCARE FOLLOWING JOINT REPLACEMENT MCDONALD 11/21/2017 MEENA KESSLER DO Ot Z66 DO NOT RESUSCITATE 11/21/2017 MEENA KESSLER DO Ot Z79.01 RETIREMENT (CURRENT) USE OF 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 11/21/2017 BARMEENA ANGELES DO [employer] Ot Z96.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 11/26/2017 BI REY MD E Ot E03.9 HYPOTHYROIDISM, UNSPECIFIED 11/26/2017 BI REY MD E Ot F31.9 BIPOLAR DISORDER, UNSPECIFIED 11/26/2017 KRISSY HA BI E Ot F41.9 ANXIETY DISORDER, UNSPECIFIED 11/26/2017 ROBER REY MDIC E Ot I48.91 UNSPECIFIED ATRIAL FIBRILLATION 11/26/2017 BI REY MD E Ot K59.09 OTHER CONSTIPATION 11/26/2017 KRISSY HA BI E Ot S72.002D FX UNSP PART OF NK OF L FEMR, SUBS FOR C 11/26/2017 BI REY MD E Ot W19.XXXD UNSPECIFIED FALL, SUBSEQUENT ENCOUNTER 11/26/2017 BI REY MD E Ot Y92.[address] IN APARTMENT PLACE 11/26/2017 BI REY MD Ot Z66 DO NOT RESUSCITATE 11/30/2017 IB REY MD Ot E03.9 HYPOTHYROIDISM, UNSPECIFIED 11/30/2017 BI REY MD E Ot F31.9 BIPOLAR DISORDER, UNSPECIFIED 11/30/2017 BI REY MD E Ot F41.9 ANXIETY DISORDER, UNSPECIFIED 11/30/2017 BI ERY MD E Ot I48.91 UNSPECIFIED ATRIAL FIBRILLATION 11/30/2017 BI REY MD E Ot K59.09 OTHER CONSTIPATION 11/30/2017 BI REY MD E Ot S72.002D FX UNSP PART OF NK OF L FEMR, SUBS FOR C 11/30/2017 BI REY MD E Ot W19.XXXD UNSPECIFIED FALL, SUBSEQUENT ENCOUNTER 11/30/2017 KRISSY HA BI E Ot Y92.[address] IN APARTMENT PLACE 11/30/2017 KRISSY HA BI E Ot Z66 DO NOT RESUSCITATE Procedures Code [place] [address] PSYCH IND W/MED CK 20 09/13/2012 00851 ROUTINE VENIPUNCTURE 11/10/2012 80667 QUANTITATIVE ASSAY DRUG 11/23/2012 15486 SLEEP STUDY 01/03/2013 17447 PSYCH DIAGNOSTIC EVALUATION 03/15/2013 07298 ROUTINE VENIPUNCTURE 05/18/2013 69663 CBC 05/18/2013 39451 CMP 05/18/2013 32598 LIPID PANEL 05/18/20133149079 GFR CALC (RESULT ONLY) 05/18/2013 43564 TSH 05/18/2013 26748 ROUTINE VENIPUNCTURE 05/22/2014 46559 CBC 05/22/20145035613 GFR CALC (RESULT ONLY) 05/22/2014 02629 CMP 05/22/2014 42231 LIPID PANEL 05/22/2014 36600 TSH 05/22/2014 [id number] REPLACE L HIP JT, FEMORAL W METAL, UNCEM 11/10/2017 Results Test Result Range Complete blood count [...] 0.1 10*3/uL 0.0-0.1 Comprehensive metabolic panel - 10/31/16 16:00 Serum or plasma sodium measurement (moles/volume) [...] in platelet poor plasma bycoagulation assay - 18 00:19 Activated partial thromboplastin time (aPTT) in [...] plasma albumin measurement (mass/volume) 4.1 g/dL 3.2-4.5 Comprehensive metabolic panel - 11/09/17 05:40 Serum or plasma sodium measurement (moles/volume) 139 mmol/L 135-145 Serum or plasma potassium measurement (moles/volume) 4.6 mmol/L 3.6-5.0 Serum or plasma chloride measurement (moles/volume) 103 mmol/L 98-107 Carbon dioxide 26 mmol/L -32 Serum or plasma anion gap determination (moles/volume) 10 mmol/L 5-14 Serum or plasma urea nitrogen measurement (mass/volume) 15 mg/dL 7-18 Serum or plasma creatinine measurement (mass/volume) 0.89 mg/dL 0.60-1.30 Serum or plasma urea nitrogen/creatinine mass ratio 17 NRG Serum or plasma creatinine measurement with calculation of estimated glomerular filtration rate > NRG Serum or plasma glucose measurement (mass/volume) 111 mg/dL 70-105 Serum or plasma calcium measurement (mass/volume) 9.5 mg/dL 8.5-10.1 Serum or plasma total bilirubin measurement (mass/volume) 0.6 mg/dL 0.1-1.0 Serum or plasma alkaline phosphatase measurement (enzymatic activity/volume) 84 U/L 40-136 Serum or plasma aspartate aminotransferase measurement (enzymatic activity/ volume) 26 U/L 5-34 Serum or plasma alanine aminotransferase measurement (enzymatic activity/volume ) 23 U/L 0-55 Serum or plasma protein measurement (mass/volume) 7.3 g/dL 6.4-8.2 Serum or plasma albumin measurement (mass/volume) 3.9 g/dL 3.2-4.5 Complete urinalysis with reflex to culture - 11/09/17 11:50 Urine color determination YELLOW NRG Urine clarity determination SLIGHTLY CLOUDY NRG Urine pH measurement by test strip 7 5-9 Specific gravity of urine by test strip 1.010 1.016- 1.022 Urine protein assay by test strip, semi-quantitative 1+ NEGATIVE Urine glucose detection by automated test strip NEGATIVE NEGATIVE Erythrocytes detection in urine sediment by light microscopy 2+ NEGATIVE Urine ketones detection by automated test strip NEGATIVE NEGATIVE Urine nitrite detection by test strip NEGATIVE NEGATIVE Urine total bilirubin detection by test strip NEGATIVE NEGATIVE Urine urobilinogen measurement by automated test strip (mass/volume) NORMAL NORMAL Urine leukocyte esterase detection by dipstick 2+ NEGATIVE Automated urine sediment erythrocyte count by microscopy (number/high power field) [HPF] NRG Automated urine sediment leukocyte count by microscopy (number/high power field ) [HPF] NRG Bacteria detection in urine sediment by light microscopy NEGATIVE NRG Squamous epithelial cells detection in urine sediment by light microscopy 2-5 NRG Crystals detection in urine sediment by light microscopy NONE NRG Casts detection in urine sediment by light microscopy NONE NRG Mucus detection in urine sediment by light microscopy NEGATIVE NRG Complete urinalysis with reflex to culture YES NRG Renal epithelial cells detection in urine sediment by light microscopy NONE NRG Bacterial urine culture - 11/09/17 11:50 Bacterial urine culture NG NRG Blood type T Indirect antibody screen panel - 11/09/17 12:17 ABO+Rh group AP NRG Transfusion band number [id number] NRG Blood group antibody screen NEGATIVE NRG Methicillin resistant Staphylococcus aureus (MRSA) screening culture - 20:00 Methicillin resistant Staphylococcus aureus (MRSA) screening culture NEG NRG Complete blood count (CBC) with automated white blood cell (WBC) differential - 11/10/17 06:30 Blood leukocytes automated count (number/volume) 12.6 10*3/uL 4.3-11.0 Blood erythrocytes automated count (number/volume) 4.15 10*6/uL 4.35-5.85 Venous blood hemoglobin measurement (mass/volume) 13.5 g/dL 11.5-16.0 Blood hematocrit (volume fraction) 39 % 35-52 Automated erythrocyte mean corpuscular volume 93 [foz_us] 80-99 Automated erythrocyte mean corpuscular hemoglobin (mass per erythrocyte) 33 pg 25-34 Automated erythrocyte mean corpuscular hemoglobin concentration measurement ( mass/volume) 35 g/dL 32-36 Automated erythrocyte distribution width ratio 12.1 % 10.0-14.5 Automated blood platelet count (count/volume) 205 10*3/uL 130-400 Automated blood platelet mean volume measurement 10.4 [foz_us] 7.4-10.4 Automated blood neutrophils/100 leukocytes 70 % 42-75 Automated blood lymphocytes/100 leukocytes 19 % 12-44 Blood monocytes/100 leukocytes 9 % 0-12 Automated blood eosinophils/100 leukocytes 1 % 0-10 Automated blood basophils/100 leukocytes 0 % 0-10 Blood neutrophils automated count (number/volume) 8.8 10*3 1.8-7.8 Blood lymphocytes automated count (number/volume) 2.4 10*3 1.0-4.0 Blood monocytes automated count (number/volume) 1.2 10*3 0.0-1.0 Automated eosinophil count 0.1 10*3/uL 0.0-0.3 Automated blood basophil count (count/volume) 0.1 10*3/uL 0.0-0.1 Whole blood basic metabolic panel - 11/10/17 06:30 Serum or plasma sodium measurement (moles/volume) 133 mmol/L 135-145 Serum or plasma potassium measurement (moles/volume) 4.3 mmol/L 3.6-5.0 Serum or plasma chloride measurement (moles/volume) 98 mmol/L 98-107 Carbon dioxide 23 mmol/L 21-32 Serum or plasma anion gap determination (moles/volume) 12 mmol/L 5-14 Serum or plasma urea nitrogen measurement (mass/volume) 12 mg/dL 7-18 Serum or plasma creatinine measurement (mass/volume) 0.76 mg/dL 0.60-1.30 Serum or plasma urea nitrogen/creatinine mass ratio 16 NRG Serum or plasma creatinine measurement with calculation of estimated glomerular filtration rate > NRG Serum or plasma glucose measurement (mass/volume) 117 mg/dL 70-105 Serum or plasma calcium measurement (mass/volume) 9.1 mg/dL 8.5-10.1 Automated blood complete blood count (hemogram) panel - 11/11/17 06:45 Blood leukocytes automated count (number/volume) 12.5 10*3/uL 4.3-11.0 Blood erythrocytes automated count (number/volume) 3.29 10*6/uL 4.35-5.85 Venous blood hemoglobin measurement (mass/volume) 10.6 g/dL 11.5-16.0 Blood hematocrit (volume fraction) 31 % 35-52 Automated erythrocyte mean corpuscular volume 94 [foz_us] 80-99 Automated erythrocyte mean corpuscular hemoglobin (mass per erythrocyte) 32 pg 25-34 Automated erythrocyte mean corpuscular hemoglobin concentration measurement ( mass/volume) 34 g/dL 32-36 Automated erythrocyte distribution width ratio 12.0 % 10.0-14.5 Automated blood platelet count (count/volume) 141 10*3/uL 130-400 Automated blood platelet mean volume measurement 10.3 [foz_us] 7.4-10.4 Comprehensive metabolic panel - 11/11/17 06:45 Serum or plasma sodium measurement (moles/volume) 133 mmol/L 135-145 Serum or plasma potassium measurement (moles/volume) 4.0 mmol/L 3.6-5.0 Serum or plasma chloride measurement (moles/volume) 101 mmol/L 98-107 Carbon dioxide 23 mmol/L 21-32 Serum or plasma anion gap determination (moles/volume) 9 mmol/L 5-14 Serum or plasma urea nitrogen measurement (mass/volume) 12 mg/dL 7-18 Serum or plasma creatinine measurement (mass/volume) 0.74 mg/dL 0.60-1.30 Serum or plasma urea nitrogen/creatinine mass ratio 16 NRG Serum or plasma creatinine measurement with calculation of estimated glomerular filtration rate > NRG Serum or plasma glucose measurement (mass/volume) 101 mg/dL 70-105 Serum or plasma calcium measurement (mass/volume) 8.2 mg/dL 8.5-10.1 Serum or plasma total bilirubin measurement (mass/volume) 0.6 mg/dL 0.1-1.0 Serum or plasma alkaline phosphatase measurement (enzymatic activity/volume) 59 U/L 40-136 Serum or plasma aspartate aminotransferase measurement (enzymatic activity/ volume) 35 U/L 5-34 Serum or plasma alanine aminotransferase measurement (enzymatic activity/volume ) 12 U/L 0-55 Serum or plasma protein measurement (mass/volume) 6.0 g/dL 6.4-8.2 Serum or plasma albumin measurement (mass/volume) 3.1 g/dL 3.2-4.5 Automated blood complete blood count (hemogram) panel - 11/12/17 04:27 Blood leukocytes automated count (number/volume) 10.7 10*3/uL 4.3-11.0 Blood erythrocytes automated count (number/volume) 2.84 10*6/uL 4.35-5.85 Venous blood hemoglobin measurement (mass/volume) 9.3 g/dL 11.5-16.0 Blood hematocrit (volume fraction) 27 % 35-52 Automated erythrocyte mean corpuscular volume 95 [foz_us] 80-99 Automated erythrocyte mean corpuscular hemoglobin (mass per erythrocyte) 33 pg 25-34 Automated erythrocyte mean corpuscular hemoglobin concentration measurement ( mass/volume) 34 g/dL 32-36 Automated erythrocyte distribution width ratio 12.2 % 10.0-14.5 Automated blood platelet count (count/volume) 121 10*3/uL 130-400 Automated blood platelet mean volume measurement 10.6 [foz_us] 7.4-10.4 Automated blood complete blood count (hemogram) panel - 11/13/17 04:52 Blood leukocytes automated count (number/volume) 9.8 10*3/uL 4.3-11.0 Blood erythrocytes automated count (number/volume) 2.42 10*6/uL 4.35-5.85 Venous blood hemoglobin measurement (mass/volume) 7.9 g/dL 11.5-16.0 Blood hematocrit (volume fraction) 23 % 35-52 Automated erythrocyte mean corpuscular volume 95 [foz_us] 80-99 Automated erythrocyte mean corpuscular hemoglobin (mass per erythrocyte) 33 pg 25-34 Automated erythrocyte mean corpuscular hemoglobin concentration measurement ( mass/volume) 34 g/dL 32-36 Automated erythrocyte distribution width ratio 12.3 % 10.0-14.5 Automated blood platelet count (count/volume) 121 10*3/uL 130-400 Automated blood platelet mean volume measurement 10.5 [foz_us] 7.4-10.4 Complete blood count (CBC) with automated white blood cell (WBC) differential - 11/14/17 05:15 Blood leukocytes automated count (number/volume) 11.2 10*3/uL 4.3-11.0 Blood erythrocytes automated count (number/volume) 2.78 10*6/uL 4.35-5.85 Venous blood hemoglobin measurement (mass/volume) 8.9 g/dL 11.5-16.0 Blood hematocrit (volume fraction) 26 % 35-52 Automated erythrocyte mean corpuscular volume 94 [foz_us] 80-99 Automated erythrocyte mean corpuscular hemoglobin (mass per erythrocyte) 32 pg 25-34 Automated erythrocyte mean corpuscular hemoglobin concentration measurement ( mass/volume) 34 g/dL 32-36 Automated erythrocyte distribution width ratio 12.3 % 10.0-14.5 Automated blood platelet count (count/volume) 199 10*3/uL 130-400 Automated blood platelet mean volume measurement 10.5 [foz_us] 7.4-10.4 Automated blood neutrophils/100 leukocytes 67 % 42-75 Automated blood lymphocytes/100 leukocytes 21 % 12-44 Blood monocytes/100 leukocytes 10 % 0-12 Automated blood eosinophils/100 leukocytes 1 % 0-10 Automated blood basophils/100 leukocytes 0 % 0-10 Blood neutrophils automated count (number/volume) 7.6 10*3 1.8-7.8 Blood lymphocytes automated count (number/volume) 2.4 10*3 1.0-4.0 Blood monocytes automated count (number/volume) 1.1 10*3 0.0-1.0 Automated eosinophil count 0.1 10*3/uL 0.0-0.3 Automated blood basophil count (count/volume) 0.0 10*3/uL 0.0-0.1 THYROID STIMULATING HORMONE - 11/14/17 11:35 THYROID STIMULATING HORMONE 3.83 u[iU]/mL 0.35-4.94 Serum or plasma C reactive protein measurement (mass/volume) - 11/14/17 11:35 Serum or plasma C reactive protein measurement (mass/volume) 16.70 mg/dL 0.00-0.50 Bacterial blood culture - 11/14/17 11:35 Bacterial blood culture NG NRG PROCALCITONIN - 11/14/17 11:35 Procalcitonin [mass/volume] in serum or plasma 0.86 % <= 0.10 Complete urinalysis with reflex to culture - 11/14/17 14:25 Urine color determination YELLOW NRG Urine clarity determination CLEAR NRG Urine pH measurement by test strip 6 5-9 Specific gravity of urine by test strip 1.010 1.016- 1.022 Urine protein assay by test strip, semi-quantitative 1+ NEGATIVE Urine glucose detection by automated test strip NEGATIVE NEGATIVE Erythrocytes detection in urine sediment by light microscopy NEGATIVE NEGATIVE Urine ketones detection by automated test strip NEGATIVE NEGATIVE Urine nitrite detection by test strip NEGATIVE NEGATIVE Urine total bilirubin detection by test strip NEGATIVE NEGATIVE Urine urobilinogen measurement by automated test strip (mass/volume) 1 mg/dL NORMAL Urine leukocyte esterase detection by dipstick NEGATIVE NEGATIVE Automated urine sediment erythrocyte count by microscopy (number/high power field) RARE NRG Automated urine sediment leukocyte count by microscopy (number/high power field ) [HPF] NRG Bacteria detection in urine sediment by light microscopy TRACE NRG Squamous epithelial cells detection in urine sediment by light microscopy 0-2 NRG Crystals detection in urine sediment by light microscopy NONE NRG Casts detection in urine sediment by light microscopy NONE NRG Mucus detection in urine sediment by light microscopy NEGATIVE NRG Complete urinalysis with reflex to culture YES NRG Bacterial urine culture - 11/14/17 14:25 Bacterial urine culture NG NRG Influenza virus A and B antigen detection - 11/14/17 15:25 FLU RESULT NEGATIVE FOR INFLUENZA A AND B ANTIGENS BY IA NRG Complete blood count (CBC) with automated white blood cell (WBC) differential - 11/15/17 06:50 Blood leukocytes automated count (number/volume) 7.8 10*3/uL 4.3-11.0 Blood erythrocytes automated count (number/volume) 2.67 10*6/uL 4.35-5.85 Venous blood hemoglobin measurement (mass/volume) 8.6 g/dL 11.5-16.0 Blood hematocrit (volume fraction) 25 % 35-52 Automated erythrocyte mean corpuscular volume 94 [foz_us] 80-99 Automated erythrocyte mean corpuscular hemoglobin (mass per erythrocyte) 32 pg 25-34 Automated erythrocyte mean corpuscular hemoglobin concentration measurement ( mass/volume) 34 g/dL 32-36 Automated erythrocyte distribution width ratio 12.6 % 10.0-14.5 Automated blood platelet count (count/volume) 207 10*3/uL 130-400 Automated blood platelet mean volume measurement 10.1 [foz_us] 7.4-10.4 Automated blood neutrophils/100 leukocytes 66 % 42-75 Automated blood lymphocytes/100 leukocytes 20 % 12-44 Blood monocytes/100 leukocytes 11 % 0-12 Automated blood eosinophils/100 leukocytes 3 % 0-10 Automated blood basophils/100 leukocytes 1 % 0-10 Blood neutrophils automated count (number/volume) 5.2 10*3 1.8-7.8 Blood lymphocytes automated count (number/volume) 1.6 10*3 1.0-4.0 Blood monocytes automated count (number/volume) 0.9 10*3 0.0-1.0 Automated eosinophil count 0.2 10*3/uL 0.0-0.3 Automated blood basophil count (count/volume) 0.0 10*3/uL 0.0-0.1 Whole blood basic metabolic panel - 11/15/17 06:50 Serum or plasma sodium measurement (moles/volume) 141 mmol/L 135-145 Serum or plasma potassium measurement (moles/volume) 3.2 mmol/L 3.6-5.0 Serum or plasma chloride measurement (moles/volume) 108 mmol/L 98-107 Carbon dioxide 24 mmol/L 21-32 Serum or plasma anion gap determination (moles/volume) 9 mmol/L 5-14 Serum or plasma urea nitrogen measurement (mass/volume) 11 mg/dL 7-18 Serum or plasma creatinine measurement (mass/volume) 0.70 mg/dL 0.60-1.30 Serum or plasma urea nitrogen/creatinine mass ratio 16 NRG Serum or plasma creatinine measurement with calculation of estimated glomerular filtration rate > NRG Serum or plasma glucose measurement (mass/volume) 96 mg/dL 70-105 Serum or plasma calcium measurement (mass/volume) 8.2 mg/dL 8.5-10.1 Magnesium - 11/15/17 06:50 Magnesium 1.9 mg/dL 1.8-2.4 Serum or plasma C reactive protein measurement (mass/volume) - 11/15/17 06:50 Serum or plasma C reactive protein measurement (mass/volume) 11.73 mg/dL 0.00-0.50 Complete blood count (CBC) with automated white blood cell (WBC) differential - 11/16/17 05:04 Blood leukocytes automated count (number/volume) 9.0 10*3/uL 4.3-11.0 Blood erythrocytes automated count (number/volume) 2.46 10*6/uL 4.35-5.85 Venous blood hemoglobin measurement (mass/volume) 7.9 g/dL 11.5-16.0 Blood hematocrit (volume fraction) 24 % 35-52 Automated erythrocyte mean corpuscular volume 96 [foz_us] 80-99 Automated erythrocyte mean corpuscular hemoglobin (mass per erythrocyte) 32 pg 25-34 Automated erythrocyte mean corpuscular hemoglobin concentration measurement ( mass/volume) 34 g/dL 32-36 Automated erythrocyte distribution width ratio 12.9 % 10.0-14.5 Automated blood platelet count (count/volume) 224 10*3/uL 130-400 Automated blood platelet mean volume measurement 10.1 [foz_us] 7.4-10.4 Automated blood neutrophils/100 leukocytes 62 % 42-75 Automated blood lymphocytes/100 leukocytes 23 % 12-44 Blood monocytes/100 leukocytes 12 % 0-12 Automated blood eosinophils/100 leukocytes 3 % 0-10 Automated blood basophils/100 leukocytes 0 % 0-10 Blood neutrophils automated count (number/volume) 5.5 10*3 1.8-7.8 Blood lymphocytes automated count (number/volume) 2.1 10*3 1.0-4.0 Blood monocytes automated count (number/volume) 1.1 10*3 0.0-1.0 Automated eosinophil count 0.2 10*3/uL 0.0-0.3 Automated blood basophil count (count/volume) 0.0 10*3/uL 0.0-0.1 Whole blood basic metabolic panel - 11/16/17 05:04 Serum or plasma sodium measurement (moles/volume) 139 mmol/L 135-145 Serum or plasma potassium measurement (moles/volume) 3.3 mmol/L 3.6-5.0 Serum or plasma chloride measurement (moles/volume) 107 mmol/L 98-107 Carbon dioxide 23 mmol/L 21-32 Serum or plasma anion gap determination (moles/volume) 9 mmol/L 5-14 Serum or plasma urea nitrogen measurement (mass/volume) 9 mg/dL 7-18 Serum or plasma creatinine measurement (mass/volume) 0.68 mg/dL 0.60-1.30 Serum or plasma urea nitrogen/creatinine mass ratio 13 NRG Serum or plasma creatinine measurement with calculation of estimated glomerular filtration rate > NRG Serum or plasma glucose measurement (mass/volume) 90 mg/dL 70-105 Serum or plasma calcium measurement (mass/volume) 8.3 mg/dL 8.5-10.1 Magnesium - 11/16/17 05:04 Magnesium 1.9 mg/dL 1.8-2.4 Serum or plasma C reactive protein measurement (mass/volume) - 11/16/17 05:04 Serum or plasma C reactive protein measurement (mass/volume) 9.33 mg /dL 0.00-0.50 Complete blood count (CBC) with automated white blood cell (WBC) differential - 11/17/17 05:10 Blood leukocytes automated count (number/volume) 9.4 10*3/uL 4.3-11.0 Blood erythrocytes automated count (number/volume) 2.39 10*6/uL 4.35-5.85 Venous blood hemoglobin measurement (mass/volume) 7.7 g/dL 11.5-16.0 Blood hematocrit (volume fraction) 23 % 35-52 Automated erythrocyte mean corpuscular volume 97 [foz_us] 80-99 Automated erythrocyte mean corpuscular hemoglobin (mass per erythrocyte) 32 pg 25-34 Automated erythrocyte mean corpuscular hemoglobin concentration measurement ( mass/volume) 33 g/dL 32-36 Automated erythrocyte distribution width ratio 13.5 % 10.0-14.5 Automated blood platelet count (count/volume) 242 10*3/uL 130-400 Automated blood platelet mean volume measurement 9.9 [foz_us] 7.4-10.4 Automated blood neutrophils/100 leukocytes 62 % 42-75 Automated blood lymphocytes/100 leukocytes 24 % 12-44 Blood monocytes/100 leukocytes 12 % 0-12 Automated blood eosinophils/100 leukocytes 2 % 0-10 Automated blood basophils/100 leukocytes 1 % 0-10 Blood neutrophils automated count (number/volume) 5.8 10*3 1.8-7.8 Blood lymphocytes automated count (number/volume) 2.3 10*3 1.0-4.0 Blood monocytes automated count (number/volume) 1.1 10*3 0.0-1.0 Automated eosinophil count 0.2 10*3/uL 0.0-0.3 Automated blood basophil count (count/volume) 0.1 10*3/uL 0.0-0.1 Blood blood smear finding identification by light microscopy YES NRG Whole blood basic metabolic panel - 11/17/17 05:10 Serum or plasma sodium measurement (moles/volume) 138 mmol/L 135-145 Serum or plasma potassium measurement (moles/volume) 3.6 mmol/L 3.6-5.0 Serum or plasma chloride measurement (moles/volume) 107 mmol/L 98-107 Carbon dioxide 22 mmol/L 21-32 Serum or plasma anion gap determination (moles/volume) 9 mmol/L 5-14 Serum or plasma urea nitrogen measurement (mass/volume) 8 mg/dL 7-18 Serum or plasma creatinine measurement (mass/volume) 0.62 mg/dL 0.60-1.30 Serum or plasma urea nitrogen/creatinine mass ratio 13 NRG Serum or plasma creatinine measurement with calculation of estimated glomerular filtration rate > NRG Serum or plasma glucose measurement (mass/volume) 87 mg/dL 70-105 Serum or plasma calcium measurement (mass/volume) 8.1 mg/dL 8.5-10.1 Magnesium - 11/17/17 05:10 Magnesium 1.9 mg/dL 1.8-2.4 Serum or plasma C reactive protein measurement (mass/volume) - 11/17/17 05:10 Serum or plasma C reactive protein measurement (mass/volume) 6.36 mg /dL 0.00-0.50 Blood manual differential performed detection - 11/17/17 05:10 Blood monocytes/100 leukocytes 9 % NRG Manual blood segmented neutrophils/100 leukocytes 63 % NRG Blood band neutrophils/100 leukocytes 4 % NRG Manual blood lymphocytes/100 leukocytes 23 % NRG Manual eosinophils/100 leukocytes in nose 1 % NRG Blood polychromasia detection by light microscopy SLIGHT NRG Manual blood nucleated erythrocytes/100 leukocytes ratio 2 NRG RED CELLS LEUKO REDUCED AS1 - 11/17/17 12:30 RED CELLS LEUKO REDUCED AS1 TRANSFUSED 11/17/17 1808 NRG Blood type T Indirect antibody screen panel - 11/17/17 12:30 ABO+Rh group AP NRG Transfusion band number [id number] NRG Blood group antibody screen NEGATIVE NRG Whole blood hemoglobin and hematocrit panel - 11/17/17 23:00 Venous blood hemoglobin measurement (mass/volume) 10.3 g/dL 11.5-16.0 Blood hematocrit (volume fraction) 30 % 35-52 Complete blood count (CBC) with automated white blood cell (WBC) differential - 11/18/17 05:05 Blood leukocytes automated count (number/volume) 9.0 10*3/uL 4.3-11.0 Blood erythrocytes automated count (number/volume) 3.27 10*6/uL 4.35-5.85 Venous blood hemoglobin measurement (mass/volume) 10.5 g/dL 11.5-16.0 Blood hematocrit (volume fraction) 31 % 35-52 Automated erythrocyte mean corpuscular volume 94 [foz_us] 80-99 Automated erythrocyte mean corpuscular hemoglobin (mass per erythrocyte) 32 pg 25-34 Automated erythrocyte mean corpuscular hemoglobin concentration measurement ( mass/volume) 34 g/dL 32-36 Automated erythrocyte distribution width ratio 15.5 % 10.0-14.5 Automated blood platelet count (count/volume) 227 10*3/uL 130-400 Automated blood platelet mean volume measurement 9.6 [foz_us] 7.4-10.4 Automated blood neutrophils/100 leukocytes 61 % 42-75 Automated blood lymphocytes/100 leukocytes 25 % 12-44 Blood monocytes/100 leukocytes 9 % 0-12 Automated blood eosinophils/100 leukocytes 4 % 0-10 Automated blood basophils/100 leukocytes 1 % 0-10 Blood neutrophils automated count (number/volume) 5.5 10*3 1.8-7.8 Blood lymphocytes automated count (number/volume) 2.3 10*3 1.0-4.0 Blood monocytes automated count (number/volume) 0.8 10*3 0.0-1.0 Automated eosinophil count 0.4 10*3/uL 0.0-0.3 Automated blood basophil count (count/volume) 0.1 10*3/uL 0.0-0.1 Whole blood basic metabolic panel - 11/18/17 05:05 Serum or plasma sodium measurement (moles/volume) 138 mmol/L 135-145 Serum or plasma potassium measurement (moles/volume) 3.7 mmol/L 3.6-5.0 Serum or plasma chloride measurement (moles/volume) 107 mmol/L 98-107 Carbon dioxide 22 mmol/L 21-32 Serum or plasma anion gap determination (moles/volume) 9 mmol/L 5-14 Serum or plasma urea nitrogen measurement (mass/volume) 9 mg/dL 7-18 Serum or plasma creatinine measurement (mass/volume) 0.63 mg/dL 0.60-1.30 Serum or plasma urea nitrogen/creatinine mass ratio 14 NRG Serum or plasma creatinine measurement with calculation of estimated glomerular filtration rate > NRG Serum or plasma glucose measurement (mass/volume) 87 mg/dL 70-105 Serum or plasma calcium measurement (mass/volume) 8.3 mg/dL 8.5-10.1 Magnesium - 11/18/17 05:05 Magnesium 2.0 mg/dL 1.8-2.4 Serum or plasma C reactive protein measurement (mass/volume) - 11/18/17 05:05 Serum or plasma C reactive protein measurement (mass/volume) 4.73 mg /dL 0.00-0.50 Whole blood basic metabolic panel - 11/19/17 04:53 Serum or plasma sodium measurement (moles/volume) 139 mmol/L 135-145 Serum or plasma potassium measurement (moles/volume) 3.5 mmol/L 3.6-5.0 Serum or plasma chloride measurement (moles/volume) 106 mmol/L 98-107 Carbon dioxide 23 mmol/L 21-32 Serum or plasma anion gap determination (moles/volume) 10 mmol/L 5-14 Serum or plasma urea nitrogen measurement (mass/volume) 8 mg/dL 7-18 Serum or plasma creatinine measurement (mass/volume) 0.69 mg/dL 0.60-1.30 Serum or plasma urea nitrogen/creatinine mass ratio 12 NRG Serum or plasma creatinine measurement with calculation of estimated glomerular filtration rate > NRG Serum or plasma glucose measurement (mass/volume) 89 mg/dL 70-105 Serum or plasma calcium measurement (mass/volume) 8.4 mg/dL 8.5-10.1 Magnesium - 11/19/17 04:53 Magnesium 2.0 mg/dL 1.8-2.4 Serum or plasma C reactive protein measurement (mass/volume) - 11/19/17 04:53 Serum or plasma C reactive protein measurement (mass/volume) 3.28 mg /dL 0.00-0.50 Complete blood count (CBC) with automated white blood cell (WBC) differential - 11/19/17 04:53 Blood leukocytes automated count (number/volume) 8.8 10*3/uL 4.3-11.0 Blood erythrocytes automated count (number/volume) 3.18 10*6/uL 4.35-5.85 Venous blood hemoglobin measurement (mass/volume) 10.2 g/dL 11.5-16.0 Blood hematocrit (volume fraction) 30 % 35-52 Automated erythrocyte mean corpuscular volume 96 [foz_us] 80-99 Automated erythrocyte mean corpuscular hemoglobin (mass per erythrocyte) 32 pg 25-34 Automated erythrocyte mean corpuscular hemoglobin concentration measurement ( mass/volume) 34 g/dL 32-36 Automated erythrocyte distribution width ratio 15.9 % 10.0-14.5 Automated blood platelet count (count/volume) 262 10*3/uL 130-400 Automated blood platelet mean volume measurement 9.8 [foz_us] 7.4-10.4 Automated blood neutrophils/100 leukocytes 58 % 42-75 Automated blood lymphocytes/100 leukocytes 28 % 12-44 Blood monocytes/100 leukocytes 10 % 0-12 Automated blood eosinophils/100 leukocytes 4 % 0-10 Automated blood basophils/100 leukocytes 1 % 0-10 Blood neutrophils automated count (number/volume) 5.1 10*3 1.8-7.8 Blood lymphocytes automated count (number/volume) 2.4 10*3 1.0-4.0 Blood monocytes automated count (number/volume) 0.8 10*3 0.0-1.0 Automated eosinophil count 0.4 10*3/uL 0.0-0.3 Automated blood basophil count (count/volume) 0.0 10*3/uL 0.0-0.1 Encounters ACCT No. Visit Date/Time Discharge Status Pt. Type Provider Facility Loc./Unit Complaint [id number] 11/15/2014 09:34:00 11/15/2014 23:59:59 CLS Outpatient ANASTASIYA JOHNSON APRN [id number] 10/14/2014 13:26:00 10/14/2014 23:59:59 CLS Outpatient FRANCESCO PHILLIPS MD [id number] 09/05/2014 10:15:00 09/05/2014 23:59:59 CLS Outpatient ANASTASIYA JOHNSON APRN [id number] 05/30/2014 11:07:00 05/30/2014 23:59:59 CLS Outpatient DAMIÁN STEEN APRN [id number] 05/22/2014 09:07:00 05/22/2014 23:59:59 CLS Outpatient FRANCESCO PHILLIPS MD [id number] 05/20/2014 09:34:00 05/20/2014 23:59:59 CLS Outpatient FRANCESCO PHILLIPS MD [id number] 03/27/2014 14:44:00 03/27/2014 23:59:59 CLS Outpatient SACHA ORTEGA DDS [id number] 12/27/2013 11:07:00 12/27/2013 23:59:59 CLS Outpatient DAMINÁ STEEN APRN [id number] 08/10/2013 09:47:00 08/10/2013 23:59:59 CLS Outpatient FRANCESCO PHILLIPS MD [id number] 07/17/2013 11:41:00 07/17/2013 23:59:59 CLS Outpatient DAYAN CLAYTON ELAINE F [id number] 05/18/2013 08:23:00 05/18/2013 23:59:59 CLS Outpatient FRANCESCO PHILLIPS MD [id number] 01/03/2013 14:37:00 01/03/2013 23:59:59 CLS Outpatient NAEYANG ELAINE F [id number] 12/08/2012 11:12:00 12/08/2012 23:59:59 CLS Outpatient ELAINE HANLEY DO [id number] 11/10/2012 13:02:00 11/10/2012 23:59:59 CLS Outpatient [id number] 11/10/2012 13:02:00 11/10/2012 23:59:59 CLS Outpatient [id number] 09/11/2012 12:11:00 09/11/2012 23:59:59 CLS Outpatient ELAINE HANLEY DO [id number] 07/12/2012 12:11:00 07/12/2012 23:59:59 CLS Outpatient ELAINE HANLEY DO [id number] 03/16/2013 14:38:00 Document Registration [id number] 03/14/2013 12:27:00 Document Registration [id number] 03/08/2013 16:07:00 Document Registration [id number] 11/16/2017 14:38:00 11/21/2017 09:25:00 [facility] 4TH SWB,LT HIP FX, FALL ON SAME LEVEL [id number] 11/09/2017 01:40:00 11/16/2017 14:37:00 DIS Outpatient IMTIAZ HA, BIN R [facility] 4TH LEFT HIP FX, FALL ON SAME LEVEL [id number] 12/27/2016 00:09:00 12/27/2016 23:59:59 CLS Preadmit TOMY HILARIO RESEARCH ENVIRONMENTAL ENGINEER-C [facility] IRON DEFICIENCY ANEMIA [id number] 10/06/2016 12:54:00 12/26/2016 00:01:00 DIS Outpatient TOMY HILARIO NP-C [facility] IRON DEFICIENCY ANEMIA [id number] 10/28/2016 15:41:00 10/28/2016 23:59:59 CLS Outpatient JAN CRAIN MD [facility] ANTICOAG THERAPY [id number] 10/21/2016 14:45:00 10/21/2016 23:59:59 CLS Outpatient JAN CRAIN MD [facility] ANTICOAG THERAPY, A FIB [id number] 10/14/2016 12:49:00 10/14/2016 23:59:59 CLS Outpatient JAN CRAIN MD [facility] ANTICOAG THERAPY [id number] 10/08/2016 15:01:00 10/08/2016 23:59:59 CLS Outpatient JAN CRAIN MD [facility] ANTICOAG THERAPY [id number] 10/05/2016 14:29:00 10/05/2016 23:59:59 CLS Outpatient JAN CRAIN MD [facility] ANTICOAG THERAPY [id number] 09/30/2016 13:00:00 09/30/2016 23:59:59 CLS Outpatient OTHER, UNLISTED [facility] ANTICOAG THERAPY [id number] 09/30/2016 10:14:00 09/30/2016 23:59:59 CLS Outpatient JAN CRAIN MD [facility] A FIB, CHF, DIURETIC THERAPY [id number] 09/27/2016 12:05:00 09/27/2016 23:59:59 CLS Outpatient JAN CRAIN MD [facility] 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 THERAPY [id number] 09/24/2016 11:47:00 09/24/2016 23:59:59 CLS Outpatient JAN CRAIN MD [facility] ACUTE ON CHRONIC DIASTOLIC CHF, ANTICOAG [place] [id number] 09/22/2016 15:15:00 09/22/2016 23:59:59 CLS Outpatient JAN CRAIN MD [facility] PERSISTENT A FIB [id number] 08/23/2016 15:15:00 08/23/2016 18:18:00 DIS Emergency KEVIN MCCULLOUGH MD [facility] ER SOB [id number] 05/26/2016 00:10:00 05/26/2016 23:59:59 CLS Preadmit SARA OWENS MD [facility] REHAB [id number] 04/22/2016 09:37:00 05/25/2016 00:01:00 DIS Outpatient SARA OWENS MD [facility] REHAB LOW BACK PAIN [id number] 11/11/2015 13:00:00 11/11/2015 23:59:59 CLS Outpatient TOMY HILARIO [facility] RAD CHRONIC KIDNEY DISEASE STAGE III,HLP [id number] 10/13/2014 16:24:00 10/13/2014 23:59:59 CLS Outpatient RIDINGS, JAME Cristobal PETER [facility] QUICK [id number] 12/03/2017 09:21:00 Document Registration [id number] 11/21/2017 09:00:00 ACT Inpatient BI REY MD [facility] IRF LEFT HIP FRACTURE [id number] 11/11/2015 13:00:00 Document Registration [id number] 11/11/2015 13:00:00 Document Registration [id number] 11/11/2015 13:00:00 Document Registration [id number] 01/25/2013 21:00:00 Document Registration [id number] 05/09/2012 13:51:00 Document Registration [id number] 05/05/2012 08:24:00 Document Registration [id number] 03/08/2011 07:40:00 Document Registration [id number] 2011 11:53:00 Document Registration [id number] 07/09/2010 13:17:00 Document Registration
[2017-12-04 12:30] VITALS: BP 106/54
--- NOTE | 2017-12-04 15:26 | Anesthesia-General Post-Op ---
General Patient Condition Mental Status/LOC: Same as Preop Cardiovascular: Satisfactory Nausea/Vomiting: Absent Respiratory: Satisfactory Pain: Uncontrolled Complications: Absent Post Op Complications Complications Patient complains of pain 6/10 when lying still, and 8/10 when moving her arm. Currently receiving Lortab PO every 4 hours. I discussed this with her RN. Patient denies PONV; however, she was dizzy the rest of the day after her surgery. She said the dizziness has resolved as of today. Patient denies other complaints. Follow Up Care/Instructions Patient Instructions None needed. Anesthesia/Patient Condition Patient Condition Patient is doing well, stable vital signs, no apparent adverse anesthesia problems. Her pain is to be addressed by the RN. GIO RODRIGUEZ CRNA Dec 04, 2017 15:26
[2017-12-04] MEDS: ACETAMINOPHEN 500 MG TAB (TYLENOL) PO PRN ×2 (16:10→23:42)
[2017-12-04] MEDS: LACTATED RINGERS 1,000 ML IV PRN (16:11)
[2017-12-04 16:30] VITALS: BP 119/56
--- NOTE | 2017-12-04 16:46 | Progress Note-Standard ---
Standard Progress Note Progress Notes/Assess & Plan Date Seen by Provider: Dec 04, 2017 Time Seen by Provider: 16:41 Progress/Assessment & Plan Pt ORIANA, doing well, pain controlled, no overnight events, no complaints VSSAF LUE: splint in place, dressings c/d/i, motor/sensation grossly intact, hand well perfused, all compartments soft LLE: Left hip surgical incision c/d/i, all compartments soft, motor/sensation grossly intact, foot well perfused. A/P: S/P ORIF Left distal radius fracture, POD #1 continue strict NWB LUE keep splint/dressings in place and clean/dry until outpatient follow-up in 7- 10 days S/P Bipolar arthroplasty, about 2 weeks post-op OK to return to the rehab unit Continue WBAT LLE and anterior hip precautions, otherwise activity as tolerated. GUERO BROWN DO Dec 04, 2017 16:46
--- NOTE | 2017-12-04 16:59 | Discharge Inst-Surgical ---
Discharge Inst-Surgical Consults/Follow Up Goal/Follow Up Appt.: Follow-up with Dr. Brown outpatient at [address], [facility] in 7-10 days; please call the office to confirm your appointment. Activity Strict non-weight bearing Left arm; WBAT Left leg, continue your anterior hip precautions left hip Walking Assistive Device: Walker Activity Instructions: Avoid Stress to Incision Elevate Extremity: Elevate Above Heart Driving Instructions: No Driving/Refer to Dr. Lee Discharge Diet: No Restrictions Skin/Wound Care Infection Signs and Symptoms: Increased Redness, Foul Odor of Wound, Increased Drainage, Increased Swelling, Temperature Above 101 F Wound Care Comment: Keep your splint/dressings left arm in place; do not remove splint or get splint wet. Operative Area Clean and Dry: Keep Incision Clean/Dry GUERO BROWN DO Dec 04, 2017 16:59
[2017-12-04 20:00] VITALS: BP 113/56
[2017-12-04] MEDS: SIMvastatin 20 MG (ZOCOR) TAB PO SCH (20:30)
[2017-12-04] MEDS: DOCUSATE SODIUM 100 MG (COLACE) CAP PO SCH (20:30)
[2017-12-05 00:53] VITALS: BP 119/63
--- NOTE | 2017-12-05 01:02 | OPERATIVE REPORT ---
DATE OF SERVICE: 12/03/2017 PREOPERATIVE DIAGNOSIS: Displaced extraarticular fracture of left distal radius. POSTOPERATIVE DIAGNOSIS: Displaced extraarticular fracture of left distal radius. PROCEDURE: Open reduction and internal fixation of displaced extraarticular fracture of left distal radius, fixation included 2 fragments. IMPLANTS USED: Synthes variable angle volar distal radius plate. ATTENDING SURGEON: Dr. Guero Solo. REVERSER: Arslan Brown PA-C; MrBrian Stephanie's assistance was required secondary to the complexity of the case, in order to hold the necessary retractors, and to increase the efficacy and efficiency of the case. ANESTHESIA: General. ESTIMATED BLOOD LOSS: 10 mL. COMPLICATIONS: None. DRAINS: None. SPECIMENS: None. BRIEF HISTORY AND INDICATIONS: The patient is a very pleasant right hand dominant 77-year-old female whom I performed a bipolar hemiarthroplasty of her left hip approximately 2 weeks ago. While in the inpatient rehabilitation unit at [facility], the patient sustained another mechanical fall landing on to her outstretched left hand. She subsequently had significant pain and swelling in her left wrist. Plain radiographs of the left wrist demonstrated a completely displaced extraarticular fracture of the left distal radius. Secondary to the instability of the injury, surgery was recommended. I discussed the details of the operative plan with the patient, which included the risks, benefits, potential complications and expected outcomes. The patient gave informed written consent to proceed as planned. After all of her questions were answered to her satisfaction. PROCEDURE NOTE: After correctly identifying the patient as Ms. Dorado in the preoperative holding area and after her left upper extremity was appropriately marked she was transferred to the operating room. Once in the operating room, she had successful induction of general anesthesia then she was transferred to a standard OR table and placed in the supine position. The left arm was placed on a radiolucent arm table. All bony prominences were meticulously padded. Nonsterile tourniquet was placed on the upper brachium of the left arm. Left arm was then prepped and draped in the routine sterile fashion. Prior to beginning the case, we completed an operating room timeout with all parties involved in the case in agreement and verified appropriate infusion of prophylactic antibiotics. The tourniquet was elevated to 250 mmHg after exsanguination with an Esmarch bandage. I then used a 10 blade scalpel to make an incision for the volar approach of Nitin and the volar aspect of the wrist centered on the tendon of the FCR. This incision was approximately 4 cm in length. After incising through the skin, subcutaneous tissue, the volar and dorsal aspects of the FCR tendon sheath were incised with 15 blade scalpel. FCR tendon was then retracted radially with self-retaining retractor. The FPL muscle and the median nerve were also retracted with self-retaining retractor ulnarly. The quadratus muscle was then released from its insertion on the radial aspect of the distal radius and then dissected ulnarly extraperiosteally. Extraarticular fracture of the distal radius was then exposed and debrided in the usual fashion with both blunt and sharp techniques so as to prevent excessive periosteal stripping. The brachioradialis was also released from its insertion on the radial styloid to facilitate reduction. Reduction maneuver was then completed and the fracture was reduced anatomically. Anatomic reduction was confirmed with both AP and lateral C-arm fluoroscopic views. I then applied the Synthes variable angle volar distal radius plate in the appropriate position on the volar aspect of the distal radius under fluoroscopic guidance and was held temporarily in place with K-wires placed through the distal aspect of the plate. I then began applying fixation to the plate first distally with a series of locking screws and then proximally in the shaft of the plate also with a series of locking screws. The radial styloid screws were placed through the distal aspect of the plate under fluoroscopic guidance and this completed our fixation. AP and lateral C-arm views confirmed anatomic reduction of the fracture and appropriate position of all hardware. The wound was then irrigated with copious amounts of sterile saline. The tourniquet was then deflated and meticulous hemostasis was achieved prior to closure. Closure was achieved with 0 Vicryl for the deeper fascia, 3-0 Vicryl for the subcutaneous tissue and a running 4-0 Monocryl subcuticular stitch and Steri-Strips for the skin. The patient had a sterile dressing applied followed by a volar splint. She was then awakened from anesthesia in the operating room without complications and then transferred to the PACU in stable condition. She tolerated the procedure well without complications. All counts were correct at the end of the case. Job ID: [id number] DocumentID: [id number] Dictated Date: 12/04/2017 17:27:48 Nut Sorter Operator Date: 12/05/2017 01:01:26 Dictated By: GUERO LAND
[2017-12-05] MEDS: LEVOTHYROXINE 25 MCG (LEVOTHROID) TAB PO SCH (06:03)
[2017-12-05] MEDS: PANTOPRAZOLE 20 MG TABLET (PROTONIX) PO SCH (06:03)
[2017-12-05] MEDS: buPROPion SR 150 MG (WELLBUTRIN SR) TAB PO SCH (06:03)
[2017-12-05] MEDS: METOCLOPRAMIDE 5 MG (REGLAN) TAB PO SCH (06:03)
[2017-12-05] MEDS: ACETAMINOPHEN 500 MG TAB (TYLENOL) PO PRN (06:04)
[2017-12-05 08:30] VITALS: BP 101/54
[2017-12-05] MEDS: FLECAINIDE 100 MG (TAMBOCOR) TAB PO SCH (08:39)
[2017-12-05] MEDS: APIXABAN 2.5 MG (ELIQUIS) TABLET PO SCH (08:40)
[2017-12-05] MEDS: VITAMIN D3 1,000 UNITS (CHOLECALCIFEROL) TABLET PO SCH (08:40)
[2017-12-05] MEDS: meTOprolol TARTRATE 25 MG (LOPRESSOR) TABLET PO SCH (08:40)
[2017-12-05] MEDS: POLYETHYLENE GLYCOL 17 GM (MIRALAX) PACK PO SCH (08:41)
== END 2017-12-05 09:45 | DRG 512 ==
LOC: 4TH 07:00
PROVIDERS: ADMIT Orthopaedic Surgery Orthopaedic Trauma; ATTEND Orthopaedic Surgery Orthopaedic Trauma
PROC: 0PHJ04Z Insertion of Internal Fixation Device into Left Radius, Open Approach (ICD-10-PCS; principal; 2017-12-03 07:23)
DX: S52.552A Other extraarticular fracture of lower end of left radius, initial encounter for closed fracture (principal); W19.XXXA Unspecified fall, initial encounter; Y92.230 Patient room in hospital as the place of occurrence of the external cause; I48.91 Unspecified atrial fibrillation; F31.9 Bipolar disorder, unspecified; F41.9 Anxiety disorder, unspecified; Z96.642 Presence of left artificial hip joint; Z66 Do not resuscitate

== ENCOUNTER 2019-01-22 10:20 | Outpatient (CLI) | payer MEDICARE ==
[~2019-01-22] VITALS: Ht 162.6 cm; Wt 63.0 kg
[~2019-01-22 10:20] MED LIST changes: +ALPR1TAB7 PO; +APIX5TAB PO; +BUPR150T14 PO; +DICL100G18 TOP; +FERR325T18 PO; +FURO40TA4 PO
[2019-01-22] MEDS ORDERED: FURO20TA4 PO (10:36)
[2019-01-22] MEDS ORDERED: APIX2.5T PO (10:36)
[2019-01-22] MEDS ORDERED: TRAZ-190 PO (10:37)
[2019-01-22 10:41] VITALS: BP 107/67
[2019-01-22] MEDS ORDERED: TRAM50TA2 PO (10:42)
[2019-01-22] MEDS ORDERED: ASPI-586 PO (10:46)
[2019-01-22 11:16] LABS: BASOPHILS % (AUTO) 1 % (0-10); EOSINOPHILS # (AUTO) 0.2 10^3/uL (0.0-0.3); EOSINOPHILS % (AUTO) 2 % (0-10); HEMATOCRIT 40 % (35-52); HEMOGLOBIN 13.2 G/DL (11.5-16.0); LYMPHOCYTES # (AUTO) 2.2 X 10^3 (1.0-4.0); LYMPHOCYTES % (AUTO) 33 % (12-44); MEAN CORPUSCULAR HEMOGLOBIN 33 PG (25-34); MEAN CORPUSCULAR HGB CONC 33 G/DL (32-36); MEAN CORPUSCULAR VOLUME 102 FL (80-99); MEAN PLATELET VOLUME 9.7 FL (7.4-10.4); MONOCYTES # (AUTO) 0.8 X 10^3 (0.0-1.0); MONOCYTES % (AUTO) 12 % (0-12); NEUTROPHILS # (AUTO) 3.5 X 10^3 (1.8-7.8); NEUTROPHILS % (AUTO) 53 % (42-75); PLATELET COUNT 168 10^3/uL (130-400); RED CELL DISTRIBUTION WIDTH 12.3 % (10.0-14.5); WHITE BLOOD COUNT 6.6 10^3/uL (4.3-11.0)
[2019-01-22 11:31] LABS: CALCIUM 10.3 MG/DL (8.5-10.1); CREATININE SERUM 1.2 MG/DL (0.60-1.30); POTASSIUM 4.9 MMOL/L (3.6-5.0)
[2019-01-22] MEDS ORDERED: GABA300C PO (12:59)
== END 2019-01-22 12:52 | disposition home or self-care (01) ==
LOC: PREOP 10:20
PROVIDERS: ATTEND Orthopaedic Surgery
DX: Z01.810 Encounter for preprocedural cardiovascular examination (principal); Z01.812 Encounter for preprocedural laboratory examination; Z11.2 Encounter for screening for other bacterial diseases; M75.102 Unspecified rotator cuff tear or rupture of left shoulder, not specified as traumatic
CPT/HCPCS: 36415; 80048; 85025; 87081; 93005

== ENCOUNTER 2019-01-24 07:20 | Day surgery (SDC) | payer MEDICARE ==
--- NOTE | 2019-01-15 11:41 | HISTORY AND PHYSICAL ---
DATE OF SERVICE: ADMISSION HISTORY AND PHYSICAL DATE OF ADMISSION: 01/24/2019 DATE OF SURGERY: This will be for outpatient surgery on 01/24/2019 for left shoulder rotator cuff repair. HISTORY OF PRESENT ILLNESS: The patient is a 78-year-old female who previously underwent a left shoulder arthroscopy who has had persistent left shoulder pain and weakness. She underwent an MRI, which shows a full thickness supraspinatus and infraspinatus tear. She tried rest, activity modification and home exercise program without relief. Due to functional impairment and failure to improve with conservative measures, the patient elected to proceed with surgical intervention. REVIEW OF SYSTEMS: No chest pain, no shortness of breath. No dysuria. PAST MEDICAL HISTORY: Kidney disease, arthritis, hypothyroidism, hypertension, hypercholesterolemia, anxiety disorder, depression, anemia, atrial fibrillation, congestive heart failure and reflux. PAST SURGICAL HISTORY: Hip arthroplasty, open reduction internal fixation of the patella with subsequent hardware removal, heart catheterization x2, tonsillectomy, tubal ligation, left oophorectomy, appendectomy, breast biopsy, cholecystectomy, herniorrhaphy, trigger finger release, shoulder arthroscopy and bilateral cataracts. FAMILY HISTORY: Significant for arthritis, ischemic heart disease, stroke. PRIMARY CARE PROVIDER: Dr. Jauregui. MEDICATIONS: Alprazolam, levothyroxine, metoprolol, omeprazole, aspirin, niacin, pravastatin, MiraLax, bupropion, cyclobenzaprine, furosemide, Eliquis, flecainide, diclofenac, iron, Tylenol and trazodone. ALLERGIES: MORPHINE, TAPE and FLEXERIL. SOCIAL HISTORY: The patient denies alcohol, tobacco use. PHYSICAL EXAMINATION: GENERAL: The patient is well developed, well-nourished, in no acute distress. HEENT: Normocephalic, atraumatic. Pupils are equal, round, react to light. Oropharynx is clear. NECK: Supple, no lymphadenopathy. LUNGS: Clear to auscultation bilaterally. HEART: rate and rhythm. ABDOMEN: Soft, nontender, nondistended. EXTREMITIES: The left shoulder demonstrates slight defect in her deltoid at the previous repair site. She has intact external rotation, internal rotation with weakness noted with abduction and external rotation. She has a positive Neer's and positive Hawkin sign. NEUROLOGIC: No gross loss of motion is noted. IMPRESSION: Left shoulder rotator cuff tear. PLAN: Left shoulder arthroscopy with rotator cuff repair. Risks, benefits, options, ramifications and recovery have been discussed at length with the patient. She understands and wishes to proceed. Job ID: [id number] DocumentID: [id number] Dictated Date: 01/15/2019 09:52:28 Maxillofacial Surgeon Date: 01/15/2019 11:40:20 Dictated By: SARA OWENS MD
[~2019-01-24] VITALS: Ht 162.6 cm; Wt 61.5 kg
[~2019-01-24 07:20] MED LIST changes: +ASPI-586 PO; +GABA300C PO; +TRAM50TA2 PO; +TRAZ-190 PO
--- OUTSIDE RECORDS SUMMARY | 2019-01-24 07:27 | XMS REPORT | Encounter Summary ---
Author Author [facility] Organization [facility] Address Unknown Phone Unavailable Care Team Providers Care Bag Worker Name Role Phone Stuart Jauregui MD PCP Encounter Details Date Type Department Care Team Description 01/22/2019 Telephone [facility] Luciano Salas RNorth[facility] [address] [place] [address] [place] [id number] Social History Tobacco Use Types Packs/Day Years Used Date Never Smoker Smokeless Tobacco: Never Used Alcohol Use Drinks/Week oz/Week Comments No Sex Assigned at Date Recorded Not on file as of this encounter Miscellaneous Notes * Telephone Encounter - Luciano Salas RN - 01/22/2019 2:28 PM CDT Pt called to ask for refill; refill processed in this encounter Plan of Treatment Not on fileas of this encounter Visit Diagnoses Diagnosis Persistent atrial fibrillation (HCC) Atrial fibrillation
--- OUTSIDE RECORDS SUMMARY | 2019-01-24 07:27 | XMS REPORT | Clinical Summary ---
Author Author [facility] Organization [facility] Address Unknown Phone Unavailable Care Team Providers Care Supervisor Pipeline Name Role Phone Stuart Jauregui MD PCP Allergies Active Allergy Reactions Severity Noted Date Comments Adhesive 04/17/2014 Adhesive Tape-Silicones 07/07/2015 Morphine 04/17/2014 Current Medications Prescription Sig. Disp. Refills Start End Date Status Date aspirin 81 MG chewable Take one PO daily 0 09/21/20 Active tabletIndications: 16 Myocardial Reinfarction Prevention pravastatin (PRAVACHOL) Take one PO daily 0 09/21/20 Active 40 MG tabletIndications: 16 hardening of the arteries due to plaque buildup ALPRAZolam (XANAX) 1 MG Take 1 tablet (1 mg 09/21/20 Active tabletIndications: total) by mouth 3 (three) 16 anxious times a day as needed for anxiety. ferrous sulfate 325 (65 Take 1 tablet (325 mg 09/21/20 Active FE) MG tabletIndications: total) by mouth daily 16 anemia from inadequate with breakfast. iron docusate sodium (STOOL 2 capsules daily 0 09/21/20 Active SOFTENER) 50 MG 16 capsuleIndications: constipation polyethylene glycol Take one packet daily 14 each 0 09/21/20 Active (MIRALAX) 17 gram orally 16 packetIndications: constipation buPROPion (WELLBUTRIN XL) Take one PO daily 0 09/21/20 Active 300 MG XL 24 hr 16 tabletIndications: major depressive disorder omeprazole (PRILOSEC) 20 Take 1 capsule (20 mg 09/21/20 Active MG capsuleIndications: total) by mouth daily. 16 gastroesophageal reflux disease levothyroxine (SYNTHROID, Take one PO daily 0 09/21/20 Active LEVOTHROID) 25 MCG 16 tabletIndications: hypothyroidism cholecalciferol, vitamin Take 1 tablet (1,000 09/21/20 Active D3, 1,000 unit Units total) by mouth 16 tabletIndications: daily. Prevention of Vitamin D Deficiency acetaminophen (TYLENOL) Take 1,000 mg by mouth Active 500 MG tablet every 6 (six) hours as needed for pain. amoxicillin (AMOXIL) 500 as needed. 04/21/20 Active MG capsule 17 furosemide (LASIX) 20 MG Take 0.5 tablets (10 mg 30 tablet 2 03/29/20 Active tabletIndications: total) by mouth every 18 diastolic CHF due to a other day. fib polyethylene glycol Take by mouth 2 (two) 01/31/20 Active (GLYCOLAX) 17 gram/dose times a day. 18 powder metoprolol tartrate TAKE 1 TABLET TWICE DAILY 180 tablet 3 09/13/20 Active (LOPRESSOR) 25 MG tablet 18 ELIQUIS 2.5 mg tablet TAKE 1 TABLET TWICE DAILY 180 tablet 1 01/11/20 Active ( DUE FOR LABS ) 19 flecainide (TAMBOCOR) 50 Take 1 tablet (50 mg 180 tablet 0 01/23/20 Active MG tabletIndications: total) by mouth every 12 19 Prevention of Recurrent (twelve) hours. Atrial Fibrillation ELIQUIS 2.5 mg tablet TAKE 1 TABLET TWICE DAILY 180 tablet 0 10/02/20 01/11/20 Discontin ( DUE FOR LABS ) 18 19 ued flecainide (TAMBOCOR) 50 Take 1 tablet (50 mg 180 tablet 0 10/25/19 01/23/20 Discontin MG tabletIndications: total) by mouth every 12 19 19 ued Prevention of Recurrent (twelve) hours. Atrial Fibrillation Active Problems Problem Noted Date Chronic diastolic CHF (congestive heart failure) ([facility]) 10/01/2016 PAF (paroxysmal atrial fibrillation) ([facility]) 10/01/2016 Valvular disease 10/01/2016 Tricuspid valve regurgitation 09/20/2016 Overview: Moderate to severe tricuspid regurgitation noted on ECHO Mitral valve regurgitation 09/17/2016 Overview: Calcified mitral valve with mean gradient of 5 mmHg consistent with mild stenosis, with mild to moderate (2+) regurgitation. 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 Overview: Flecainide Pulmonary HTN (HCC) detention current use of anticoagulant Overview: Eliquis Coronary atherosclerosis of [place] coronary artery Resolved Problems Problem Noted Date Resolved Date Acute on chronic diastolic CHF (congestive heart failure) (HCC) 09/17/2016 01/20/2017 Persistent atrial fibrillation (HCC) 08/10/2016 01/20/2017 Encounters Date Type Specialty Care Team Description 01/22/2019 Telephone Cardiology Luciano Salas RN 01/10/2019 Refill Cardiology Radha Nixon MD Medication Refill 01/08/2019 Telephone Cardiology Ivette De La Garza RN Medication hold request 10/26/2018 Telephone Cardiology Monse Carey RN Correspondence from Last 3 Months Immunizations Name Dates Previously Given Next Due Pneumococcal Conjugate 09/21/2016 13-Valent Family History Medical History Relation Name Comments Coronary artery bypass Brother graft Coronary artery bypass Brother graft Coronary artery bypass Brother graft Cancer Brother Heart attack Father Stroke Sister Relation Name Status Comments Brother Brother Brother Brother Father (Age 80) Mother (Age 91) Sister (Age 78) Social History Tobacco Use Types Packs/Day Years Used Date Never Smoker Smokeless Tobacco: Never Used Alcohol Use Drinks/Week oz/Week Comments No Sex Assigned at Date Recorded Not on file Last Filed Vital Signs Vital Sign Reading Time Taken Blood Pressure 112/60 04/18/2018 1:24 PM CDT Pulse 65 04/18/2018 1:24 PM CDT Temperature 36.4 C (97.6 F) 09/21/2016 11: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 Respiratory Rate 16 09/21/2016 11: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 Oxygen Saturation 95% 09/21/2016 11: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 Inhaled Oxygen - - Concentration Weight 60.1 kg (132 lb 9.6 oz) 04/18/2018 1:24 PM CDT Height 165.1 cm (5' 5") 04/18/2018 1:24 PM CDT Body Mass Index 22.07 04/18/2018 1:24 PM CDT Plan of Treatment Health Maintenance Due Date Last Done Comments Medicare Annual Wellness 1940 Td # 1940 Zoster Vaccine# (1 of 2) 1991 Depression Screening 2006 PHQ-9 # Osteoporosis Screening 2006 Fall Risk Assessment # 09/21/2017 09/21/2016 Pneumococcal Immunization 09/21/2017 09/21/2016 65+ (2 of 2 - PPSV23) Influenza Vaccine (Season 08/24/2019 Ended) Implants Implanted Type Area Medical Service Representative Device Expiration Model / Identifier Date Serial / Lot Hip Replacements Results Not on filefrom Last 3 Months
--- OUTSIDE RECORDS SUMMARY | 2019-01-24 07:27 | XMS REPORT | Encounter Summary ---
Author Author [facility] Organization [facility] Address Unknown Phone Unavailable Care Team Providers Care Insurance Marketing Specialist Name Role Phone Stuart Jauregui MD PCP Reason for Visit * Reason Comments Medication hold request Encounter Details Date Type Department Care Team Description 01/08/2019 Telephone [facility] Ivette De La Garza mass spectrometry manager hold request [facility] [address] [place] [address] Social History Tobacco Use Types Packs/Day Years Used Date Never Smoker Smokeless Tobacco: Never Used Alcohol Use Drinks/Week oz/Week Comments No Sex Assigned at Date Recorded Not on file as of this encounter Miscellaneous Notes * Telephone Encounter - Pat Loya RN - 01/23/2019 4:41 PM CDT Pt called stating she had a pre op appt yesterday and they did and EKG which showed afib. Pt states she is not having symptoms but thought she should let Dr. Nixon know. Pt has a dx of PAF. * Telephone Encounter - Ivette De La Garza RN - 01/08/2019 4:35 PM CDT Letter created and faxed to Dr. Adair office at [phone]. Confirmation of fax received for 2 pages. * Telephone Encounter - Radha Nixon MD - 01/08/2019 4:10 PM CDT May proceed from cardiac standpoint Ok to hold * Telephone Encounter - Ivette De La Garza RN - 01/08/2019 2:30 PM CDT Received a VM from pt requesting a return call. I called and spoke w/ pt. Pt reports she is planning to have a shoulder surgery for a torn rotator cuff w/ Dr. Adair. Pt reports Dr. Adair's office is requesting cardiac clearance and also recommendations on hold time for her Eliquis. I called and spoke w/ Stan at Dr. Adair's office. He reports pt's shoulder surgery will be with general anesthesia, and typical hold time for aspirin is 5 days prior to surgery and Eliquis can be 2 days prior. Stan reports the letter can be faxed to either [phone] or [phone]. in this encounter Plan of Treatment Not on fileas of this encounter Visit Diagnoses Not on filein this encounter
--- OUTSIDE RECORDS SUMMARY | 2019-01-24 07:27 | XMS REPORT | Encounter Summary ---
Author Author [facility] Organization [facility] Address Unknown Phone Unavailable Care Team Providers Care Improvement Coordinator Name Role Phone Stuart Jauregui MD PCP Reason for Visit * Reason Comments Medication Refill Encounter Details Date Type Department Care Team Description 01/10/2019 Refill [facility] Radha Nixon MD Medication Refill Cardiovascular [address] [facility] [address] [place] [address] [address] [place] [address] [phone] Social History Tobacco Use Types Packs/Day Years Used Date Never Smoker Smokeless Tobacco: Never Used Alcohol Use Drinks/Week oz/Week Comments No Sex Assigned at Date Recorded Not on file as of this encounter Miscellaneous Notes * Telephone Encounter - Adeola Mustafa LPN - 01/12/2019 9:06 AM CDT 01/12/19 Adryan from [facility] in [facility] [phone]. I have Ms Dorado in office and she said she was suppose to get lab requisition from Dr Hunter Nixon to d blood work. We do not have the requisition. I will go ahead and draw her blood waiting on your call. Return call to Adryan --spoke with Magali informed of above conversation.Our fax number is [phone]. I will be faxing a BMP requisiition now an if not received with in half hr please return call to [phone].Verbalized understanding. Document faxed with conformation of successful fax of 2 pages-transmitted. * Telephone Encounter - Zoe Sanchez RN - 01/10/2019 3:13 PM CDT Patient called, spoke with her on phone, instructed that a bmp was ordered and she needed to get it done, v/u in this encounter Plan of Treatment Name Priority Associated Diagnoses Order Schedule Basic Metabolic Panel Routine PAF (paroxysmal atrial Expected: 2018, fibrillation) ([facility]) Expires: 01/11/2020 as of this encounter Visit Diagnoses Diagnosis PAF (paroxysmal atrial fibrillation) ([facility]) - Primary Atrial fibrillation
--- OUTSIDE RECORDS SUMMARY | 2019-01-24 07:27 | XMS REPORT | Encounter Summary ---
Author Author [facility] Organization [facility] Address Unknown Phone Unavailable Care Team Providers Care Matchbook Maker Name Role Phone Stuart Jauregui MD PCP Reason for Visit * Reason Comments Correspondence Encounter Details Date Type Department Care Team Description 10/26/2018 Telephone [facility] Monse Carey, RN Correspondence [facility] [address] [place] [address] [address] [place] [address] Social History Tobacco Use Types Packs/Day Years Used Date Never Smoker Smokeless Tobacco: Never Used Alcohol Use Drinks/Week oz/Week Comments No Sex Assigned at Date Recorded Not on file as of this encounter Miscellaneous Notes * Telephone Encounter - Monse Carey RN - 10/30/2018 10:02 AM VIDEO GAME DEVELOPER Received VM from pt stating that she looked into cost of Eliquis and would like a return call. Called and spoke to pt, she states that she can afford the Eliquis and would like to stay on it. She also states that she is scheduled to see her PCP this week for an EKG,a nd is having labs drawn at her local lab at the end of the month and will have all of those results sent to us. Instructed her to call with additional questions or concerns. Pt v/u. * Telephone Encounter - Monse Carey RN - 10/26/2018 6:02 PM VIDEO GAME DEVELOPER Received VM form pt requesting our return call regarding a letter for her Eliquis. Returned call to pt, spoke to her directly. She states she received a letter from [employer] that her appeal for tier exception was denied due to "drug being on lowest available tier." Explained that this means that the medication is already covered by her plan, and advised that she call her pharmacy to ask what the cost at the counter will be. Informed her that if cost is too much, we can contact our assistance system manager to send her an application for assistance, but also warned her that there will be an out of pocket minimum that she will have to meet first, so likely the first couple of months will be full jones. She v/u. She also states that she knows she needs an EKG for her flecainide, and asks if this can be done with her PCP. Informed her that as long as the PCP sends us the EKG when completed so we can see the rhythm, then this acceptable, she states she will make an appt for next week. Instructed her to call with additional questions or concerns, pt will call us once she knows her cost at the counter and will let us know if she needs assistance affording it. in this encounter Plan of Treatment Not on fileas of this encounter Visit Diagnoses Not on filein this encounter
--- OUTSIDE RECORDS SUMMARY | 2019-01-24 07:28 | XMS REPORT ---
Author Author FRANCESCO PHILLIPS Organization [facility] Address [address] [place] [address] Care Team Providers Care On Site Manager Name Role Phone FRANCESCO PHILLIPS Unavailable PROBLEMS Type Condition ICD9-CM Code RUM33-JE Code Onset Dates Condition Status SNOMED Code Problem Paroxysmal atrial fibrillation I48.0 Active 342222198 Problem Generalized anxiety disorder F41.1 Active 67241281 Problem Gastro-esophageal reflux disease without esophagitis K21.9 Active 924441577 Problem Chronic kidney disease (CKD) stage G1/A1, glomerular filtration rate ( GFR) equal to or greater than 90 mL/min/1.73 square meter and albuminuria creatinine ratio less than 30 mg/g N18.1 Active 399491814 Problem Arthritis M19.90 Active 4704179 Problem Carpal tunnel syndrome of left wrist G56.02 Active 26229001 Problem Chronic diastolic heart failure I50.32 Active 904706613 Problem 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 Active 247998335 Problem MDD (major depressive disorder), recurrent, in partial remission F33.41 Active 86593063 Problem Secondary hyperparathyroidism of renal origin N25.81 Active 04919941 Problem Acquired hypothyroidism E03.9 Active 118056987 ALLERGIES No Information ENCOUNTERS Encounter Location Date Diagnosis [place] [id number] [address] Aug, Generalized anxiety disorder F41.1 [facility] [id number] [address] Aug, [place] [id number] [place] [address] 92811- 9176 Jul, Depression F32.9 [facility] [id number] [address] 7[address] Jul, [place] [address] [address] 1776 08 Jul, 2018 [place] [address] [place] [id number] [place] [address] 26505- 1935 10 Jun, 2018 Depression F32.9 [facility] [id number] [place] [address] 66114- 6823 31 May, 2018 Arthritis M19.90 and Carpal tunnel syndrome of left wrist G56.02 [place] [id number] [place] [address] 08708- 9119 May, [place] [id number] [place] [address] 69780- 0576 May, Generalized anxiety disorder F41.1 [place] [address] [place] [address] [id number] [place] [address] 20704- 8974 May, Chronic kidney disease, stage 1 N18.1 [place] [address] [place] [id number] [place] [address] 46636- 9660 May, Chronic kidney disease, stage 1 N18.1 and Chronic diastolic heart failure I50.32 [facility] [id number] [place] [address] 82148 -1915 19 Mar, 2018 Pain, dental K08.89 [place] [address] [id number] [place] [address] 32008- 3273 February, Medicare annual wellness visit, initial Z00.00 ; MDD (major depressive disorder), recurrent, in partial remission F33.41 ; Atrial fibrillation, unspecified type I48.91 ; Chronic diastolic heart failure I50.32 ; Secondary hyperparathyroidism of renal origin N25.81 ; Acquired hypothyroidism E03.9 ; Anxiety F41.9 ; Chronic kidney disease, stage 1 N18.1 and Encounter for immunization Z23 [place] [address] [id number] [place] [address] 10613- 3727 February, Closed fracture of one rib of right side, initial encounter S22.31XA ; Acute cystitis with hematuria N30.01 ; Right flank pain R10.9 and Rib pain on right side R07.81 [place] [address] [place] [id number] [place] [address] 75382- 9974 Jan, Acquired hypothyroidism E03.9 ; 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 ; Chronic kidney disease (CKD) stage G1/A1, glomerular filtration rate (GFR) equal to or greater than 90 mL/min/1.73 square meter and albuminuria creatinine ratio less than 30 mg/g N18.1 ; Paroxysmal atrial fibrillation I48.0 ; Chronic diastolic heart failure I50.32 and Secondary hyperparathyroidism of renal origin N25.81 [place] [address] [place] [id number] [place] [address] 89622- 5618 Jan, Arthritis M19.90 [place] [address] [address] [id number] [place] [address] 28360- 6793 Jan, Paroxysmal atrial fibrillation I48.0 [place] [address] [id number] [place] [address] 76545- 1735 Jan, Paroxysmal atrial fibrillation I48.0 [place] [address] [id number] [place] [address] 40451- 8933 Jan, [place] [id number] [place] [address] 98971- 8312 Jan, Generalized anxiety disorder F41.1 [place] [address] [id number] [place] [address] 55418- 6071 Jan, Generalized anxiety disorder F41.1 and MDD (major depressive disorder), recurrent, in partial remission F33.41 [place] [address] [place] [id number] [place] [address] 66752- 9665 Dec, Arthritis M19.90 [place] [address] [place] [id number] [place] [address] 77947- 8954 Dec, [place] [address] [id number] [place] [address] 00313- 5411 Nov, Arthritis M19.90 ; Chronic kidney disease (CKD) stage G1/A1 , glomerular filtration rate (GFR) equal to or greater than 90 mL/min/1.73 square meter and albuminuria creatinine ratio less than 30 mg/g N18.1 and Anxiety F41.9 [place] [address] [place] [address] [id number] [place] [address] 74914- 9496 Nov, [place] [address] [place] [id number] [place] [address] 46654- 3501 Nov, [place] [address] 29098- 4989 Nov, [place] [address] [place] [id number] [place] [address] 66386- 8416 Nov, [place] [address] [place] [id number] [place] [address] 31214- 1442 Nov, [place] [address] [place] [address] [id number] [place] [address] 80332- 3403 Oct, Generalized anxiety disorder F41.1 [place] [address] [place] [address] [id number] [place] [address] 48235- 8159 Sep, Atrial fibrillation, unspecified type I48.91 [place] [id number] [place] [address] 86449- 3077 Sep, Generalized anxiety disorder F41.1 and MDD (major depressive disorder), recurrent, in partial remission F33.41 [place] [id number] [place] [address] 17045- 0273 Sep, [place] [address] [place] [address] [id number] [place] [address] 48528- 2389 Aug, Generalized anxiety disorder F41.1 [place] [address] [place] [id number] [place] [address] 14878- 9336 Aug, [place] [address] [place] [address] [id number] [place] [address] 46681- 6062 Aug, Paroxysmal atrial fibrillation I48.0 and Gastro-esophageal reflux disease without esophagitis K21.9 [place] [address] [place] [address] [address]- 5822 Jul, [facility] [address] [address]- 8489 Jul, Generalized anxiety disorder F41.1 [facility] [address] [address]- 1722 Jun, Generalized anxiety disorder F41.1 and MDD (major depressive disorder), recurrent, in partial remission F33.41 [facility] [address] [address]- 4552 May, Recurrent major depressive disorder, in partial remission F33.41 [facility] [id number] [place] [address] 80087- 9282 May, Anxiety F41.9 and Paroxysmal atrial fibrillation I48.0 [place] [address] [address]- 6685 Apr, Generalized anxiety disorder F41.1 [facility] [address] [address]- 3937 Mar, [facility] [id number] [place] [address] 67791- 0736 Mar, Generalized anxiety disorder F41.1 and MDD (major depressive disorder), recurrent, in partial remission F33.41 [facility] [address] [address]- 6114 February, Paroxysmal atrial fibrillation I48.0 and Anxiety F41.9 [facility] [address] [address]- 5096 February, MDD (major depressive disorder), recurrent, in partial remission F33.41 [facility] [address] [address]- 7992 Jan, [facility] [address] [place] [address] Jan, [facility] [id number] [address]- 3711 Jan, [facility] [id number] [place] [address] 14276- 7838 Jan, [facility] [id number] [place] [address] 41864- 5033 31 Dec, 2016 [facility] [address] [place] [id number] [place] [address] 18612- 0541 Dec, Generalized anxiety disorder F41.1 [facility] [address] [place] [id number] [place] [address] 03683- 8733 Dec, Generalized anxiety disorder F41.1 and MDD (major depressive disorder), recurrent, in partial remission F33.41 [facility] [address] [place] [id number] [place] [address] 94558- 8511 15 Dec, 2016 [facility] [address] [id number] [place] [address] 31757- 9329 14 Dec, 2016 [facility] [address] [place] [id number] [place] [address] 16892- 6450 07 Dec, 2016 [facility] [address] [id number] [place] [address] 81517- 4422 28 Nov, 2016 [facility] [address] [id number] [place] [address] 56092- 8916 27 Nov, 2016 Gastro-esophageal reflux disease without esophagitis K21.9 [facility] [address] [place] [id number] [place] [address] 00857- 7961 10 Nov, 2016 Atrial fibrillation, unspecified type I48.91 and Anxiety F41.9 [facility] [address] [id number] [place] [address] 97881- 0013 Oct, [facility] [address] [id number] [place] [address] 85097- 8731 Oct, [facility] [address] [id number] [place] [address] 24136- 5318 Oct, Depression F32.9 and Atrial fibrillation, unspecified type I48.91 [facility] [id number] [place] [address] 50193- 3092 Oct, [facility] [id number] [place] [address] 96642- 7886 Sep, Depression F32.9 [facility] [id number] [place] [address] 07699- 4953 Sep, Recurrent major depressive disorder, in partial remission F33.41 and Generalized anxiety disorder F41.1 [facility] [id number] [place] [address] 17851- 5281 Sep, Paroxysmal atrial fibrillation I48.0 and Anxiety F41.9 [facility] [id number] [place] [address] 56785- 8319 Sep, [facility] [id number] [place] [address] 47770- 3811 Sep, [facility] [id number] [place] [address] 91649- 0462 Sep, Gastro-esophageal reflux disease without esophagitis K21.9 [facility] [address] [id number] [place] [address] 94693- 0155 Aug, [facility] [id number] [place] [address] 95167- 8697 Aug, [facility] [id number] [place] [address] 85797- 3382 Aug, Atrial fibrillation, unspecified type I48.91 [facility] [address] [id number] [place] [address] 80468- 2771 Jul, Major depressive disorder, recurrent, in partial remission F33.41 and Generalized anxiety disorder F41.1 [facility] [id number] [place] [address] 57874- 6433 Jul, [facility] [id number] [place] [address] 17762- 5851 30 Jun, 2016 [facility] [address] [id number] [place] [address] 60720- 2569 15 Jun, 2016 Bronchitis J40 and Memory loss R41.3 [place] [address] [place] [id number] [place] [address] 83818- 7911 14 Jun, 2016 Upper respiratory infection with cough and congestion J06.9 [place] [address] [place] [id number] [place] [address] 69293- 1019 Apr, [place] [address] [place] [id number] [place] [address] 74444- 7056 Apr, Major depressive disorder, recurrent, unspecified F33.9 ; Anxiety F41.9 and Psychophysiological insomnia F51.04 [place] [address] [id number] [place] [address] 81167- 1199 Mar, [place] [address] [place] [id number] [place] [address] 11305- 5482 Mar, [place] [address] [place] [id number] [place] [address] 68206- 7866 February, [place] [address] [place] [id number] [place] [address] 68652- 2138 Jan, Postural hypotension I95.1 [place] [address] [place] [id number] [place] [address] 20924- 0873 14 Jan, 2016 Recurrent major depressive disorder in remission F33.40 ; Generalized anxiety disorder F41.1 and Psychophysiological insomnia F51.04 [place] [address] [id number] [place] [address] 27856- 9298 Dec, Generalized anxiety disorder F41.1 [facility] [id number] [place] [address] 67082 -0994 Dec, Unspecified fall, initial encounter W19.XXXA [place] [address] [place] [id number] [place] [address] 10598- 7299 05 Feb, 2016 Depression F32.9 and Anxiety F41.9 [place] [address] 79550- 4058 Oct, [place] [address] 67548- 3029 Oct, [place] [address] 67959- 1237 Oct, Chronic kidney disease, stage 3 (moderate) N18.3 [place] [address] 49580- 4414 Oct, Head contusion S00.93XA ; Cervical strain S16.1XXA and Arthritis M19.90 [place] [address] 16065- 3190 Oct, Chronic kidney disease 585.9 [place] [address] 34791- 5585 Oct, Chronic kidney disease 585.9 [place] [address] 29681- 6567 Oct, [place] [address] 01696- 2497 Sep, [place] [address] 42310- 0245 Aug, Chronic kidney disease N18.9 [place] [address] 09181- 6095 Aug, Chronic kidney disease (CKD) stage G1/A1, glomerular filtration rate (GFR) equal to or greater than 90 mL/min/1.73 square meter and albuminuria creatinine ratio less than 30 mg/g N18.1 and GERD (gastroesophageal reflux disease) K21.9 [place] [address] 67740- 9048 Aug, [place] [address] 27263- 7880 Jun, Generalized anxiety disorder 300.02 ; Major depression, recurrent 296.30 and Persistent 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 [facility] [id number] [place] [address] 01369- 5774 Jun, [facility] [id number] [place] [address] 48231- 3454 May, [facility] [id number] [place] [address] 17598- 5132 May, Generalized anxiety disorder 300.02 and Depression, major, recurrent, in remission 296.35 [facility] [address] [id number] [place] [address] 37268- 2763 May, [facility] [id number] [place] [address] 89187- 4702 May, [facility] [id number] [place] [address] 77516- 5116 May, [facility] [id number] [place] [address] 86279- 3352 May, [facility] [id number] [place] [address] 37906- 5699 May, Chronic kidney disease 585.9 [facility] [address] [id number] [place] [address] 76090- 9354 Apr, Chronic kidney disease 585.9 [facility] [id number] [place] [address] 32674- 9476 Apr, [facility] [id number] [place] [address] 59857- 1506 Apr, Arthropathy 716.90 ; Hyperlipidemia 272.4 ; Hypothyroidism 244.9 and GERD (gastroesophageal reflux disease) 530.81 [facility] [address] [address]- 4680 Apr, Arthropathy 716.90 ; Hypothyroidism 244.9 ; Hyperlipidemia 272.4 and GERD (gastroesophageal reflux disease) 530.81 [place] [address] [facility] [id number] [address]- 5843 17 Mar, 2015 [facility] [address] 8301 February, Depression, major, recurrent, in remission 296.35 and Generalized anxiety disorder 300.02 [facility] [address] [place] [address]- 6976 February, [facility] [address] [address]- 2418 February, [facility] [address] [place] [address], [place] [address]- 3836 Jan, [facility] [id number] [address]- 2802 Jan, [facility] [address] [address]- 5619 Oct, [facility] [address] [address]- 4331 Oct, [facility] [address] [place] [address]- 0704 Oct, [facility] [address] [address]- 6865 Oct, [facility] [id number] [address]- 8450 Oct, [facility] [id number] [address]- 1863 Oct, [facility] [id number] [address]- 7637 Sep, [facility] [address] [address]- 4587 Sep, [facility] [id number] [address]- 9694 Aug, [facility] [place] [facility] [address] [id number] [place] [address]- 9770 Aug, [facility] [place] [facility] [address] [id number] [place] [address]- 9452 Aug, [facility] [place] [facility] [address] [id number] [place] [address]- 2826 Aug, [facility] [place] [facility] [address] [id number] [place] [address]- 3620 Jul, [facility] [place] [facility] [address] [id number] [place] [address]- 8152 Jul, [facility] [place] [facility] [address] [id number] [place] [address]- 2713 Jul, [facility] [place] [facility] [address] [id number] [place] [address]- 8584 Jul, [facility] [place] [facility] [address] [id number] [place] [address]- 6819 29 Jun, 2014 [facility] [place] [facility] [address] [id number] [place] [address]- 9388 Jun, [facility] [place] [facility] [address] [id number] [place] [address]- 5818 Jun, [facility] [place] [facility] [address] [id number] [place] [address]- 9996 10 Jun, 2014 [facility] [place] [facility] [address] [id number] [place] [address]- 1028 Jun, [facility] [place] [facility] [address] [id number] [place] [address] 2549 Jun, [facility] [place] [facility] [address] [id number] [place] [address] 2546 Jun, [facility] [place] [facility] [address] [id number] [place] [address]- 9141 May, [facility] [place] [facility] [address] [id number] [place] [address]- 1550 May, [facility] [place] [facility] [address] [id number] [place] [address]- 1383 May, [facility] [place] [facility] [address] [id number] [place] [address]- 7347 May, [facility] [place] [facility] [address] [id number] [place] [address]- 3089 Apr, [facility] [place] [facility] [address] [id number] [place] [address]- 6377 Apr, [facility] [place] [facility] [address] [id number] [place] [address]- 4649 Apr, [facility] [place] [facility] [address] [id number] [place] [address]- 6702 Apr, [facility] [place] [facility] [address] [id number] [place] [address]- 7580 Apr, [facility] [place] [facility] [address] [id number] [place] [address]- 3552 Apr, [facility] [place] [facility] [address] [id number] [place] [address]- 0871 Apr, [facility] [place] [facility] [address] [id number] [place] [address]- 9857 Apr, [facility] [place] [facility] [address] [id number] [place] [address]- 5143 Mar, [facility] [place] [facility] [address] [id number] [place] [address]- 1630 Mar, [facility] [place] [facility] [address] [id number] [place] [address]- 9635 Mar, [facility] [place] [facility] [address] [id number] [place] [address]- 4749 Mar, [facility] [place] [facility] [address] [id number] [place] [address]- 9364 Mar, [facility] [place] [facility] [address] [id number] [place] [address]- 5326 24 Mar, 2014 [facility] [place] [facility] [address] [id number] [place] [address]- 0588 Mar, [facility] [place] [facility] [address] [id number] [place] [address]- 2305 Mar, [facility] [place] [facility] [address] [id number] [place] 7960 Dec, [facility] [place] [facility] [address] [id number] [place] [address]- 7266 Dec, [facility] [place] [facility] [address] [id number] [place] 9075 Dec, [facility] [place] [facility] [address] [facility] [id number] [place] [address]- 7217 Dec, [facility] [place] [facility] [address] [facility] [id number] [place] [address]- 9956 Dec, [facility] [place] [facility] [address] [facility] [id number] [place] [address]- 6769 Dec, [facility] [place] [facility] [address] [id number] [place] [address] Dec, [facility] [place] [facility] [address] [facility] [id number] [place] [address] Dec, [facility] [place] [facility] [address] [id number] [place] [address] Nov, [facility] [place] [facility] [address] [facility] [id number] [place] [address] Nov, [facility] [place] [facility] [address] [id number] [place] [address] Nov, [facility] [place] [facility] [address] [facility] [id number] [place] [address] 17 Nov, 2013 [facility] [place] [facility] [address] [facility] [id number] [place] [address] [address] Nov, [facility] [place] [facility] [address] [id number] [place] [address] 14 Nov, 2013 [facility] [place] [facility] [address] [id number] [place] [address] Nov, [facility] [place] [facility] [address] [id number] [place] [address] Nov, [facility] [place] [facility] [address] [id number] [place] [address] Aug, [facility] [place] [facility] [address] [id number] [place] [address] Aug, [facility] [place] [facility] [address] [id number] [place] [address] Jul, [facility] [place] [facility] [address] [id number] [place] [address] Jul, [facility] [place] [facility] [address] [id number] [place] [address] Jul, [facility] [place] [facility] [address] [id number] [place] [address] 30 Jun, 2013 [facility] [place] [facility] [address] [id number] [place] [address] 30 Jun, 2013 [facility] [place] [facility] [address] [id number] [place] [address] 24 Jun, 2013 [facility] [place] [facility] [address] [id number] [place] [address] Jun, [facility] [place] [facility] [address] [id number] [place] [address] Jun, [facility] [place] [facility] [address] [id number] [place] [address] May, [facility] [place] [facility] [address] [id number] [place] [address] Apr, [facility] [place] [facility] [address] [id number] [place] [address] Apr, [facility] [address] [id number] [place] [address] Apr, [facility] [facility] [address] [id number] [place] [address] Mar, [facility] [address] [id number] [place] [address] Mar, [facility] [address] [id number] [place] [address] 2009 February, [facility] [address] [id number] [place] [address] February, [facility] [address] [id number] [place] [address] February, [facility] [address] [id number] [place] [address] February, [facility] [address] [id number] [place] [address] Jan, [facility] [address] [id number] [place] [address] Jan, [facility] [address] [id number] [place] [address] Jan, [facility] [address] [id number] [place] [address] 04 Jan, 2013 [facility] [address] [id number] [place] [address] Dec, [facility] [place] [facility] [address] [id number] [place] [address] Dec, [facility] [place] [facility] [address] [id number] [place] [address] Dec, [facility] [address] [id number] [place] [address] Nov, [facility] [place] [facility] [address] [id number] [place] [address] Nov, [facility] [place] [facility] [address] [id number] [place] [address] Nov, [facility] [place] [facility] [address] [id number] [place] [address] Oct, [facility] [place] [facility] [address] [id number] [place] [address] Oct, [facility] [place] [facility] [address] [id number] [place] [address] Sep, [facility] [place] [facility] [address] [id number] [place] [address] Sep, [facility] [place] [facility] [address] [id number] [place] [address] Sep, [facility] [place] [facility] [address] [id number] [place] [address] Sep, [facility] [place] [facility] [address] [id number] [place] [address] Sep, [facility] [place] [facility] [address] [id number] [place] [address] Aug, [facility] [place] [facility] [address] [id number] [place] [address] Aug, [facility] [place] [facility] [address] [id number] [place] [address] Aug, [facility] [place] [facility] [address] [id number] [place] [address] Aug, [facility] [place] [facility] [address] [id number] [place] [address] Aug, [facility] [place] [facility] [address] [id number] [place] [address] Aug, [facility] [place] [facility] [address] [id number] [place] [address] Jun, [facility] [address] [id number] [place] [address] Jun, [facility] [place] [facility] [address] [id number] [place] [address] Jun, [facility] [place] [facility] [address] [id number] [place] [address] May, [facility] [place] [facility] [address] [id number] [place] [address] May, [facility] [place] [facility] [address] [id number] [place] [address] May, [facility] [place] [facility] [address] [id number] [place] [address] May, [facility] [address] [id number] [place] [address] Apr, [facility] [place] [facility] [address] [id number] [place] [address] Mar, [facility] [place] [facility] [address] [id number] [place] [address] Mar, [facility] [place] [facility] [address] [id number] [place] [address] Mar, [facility] [place] [facility] [address] [id number] [place] [address] February, [facility] [place] [facility] [address] [id number] [place] [address] February, [facility] [place] [facility] [address] [id number] [place] [address] February, [facility] [place] [facility] [address] [id number] [place] [address] February, [facility] [place] [facility] [address] [id number] [place] [address] Dec, [facility] [place] [facility] [address] [id number] [place] [address] Dec, [facility] [place] [facility] [address] [id number] [place] [address] Dec, [facility] [place] [facility] [address] [id number] [place] [address]- [address] Dec, [facility] [place] [facility] [address] [id number] [place] [address] Nov, [facility] [place] [facility] [address] [id number] [place] [address] Nov, [facility] [place] [facility] [address] [id number] [place] [address]- [address] Nov, [facility] [place] [facility] [address] [id number] [place] [address] Nov, [facility] [place] [facility] [address] [id number] [place] [address] Nov, [facility] [place] [facility] [address] [id number] [place] [address]- 8084 Oct, [facility] [place] [facility] [address] [facility] [id number] [place] [address] Oct, [facility] [place] [facility] [address] [id number] [place] [address] Oct, [facility] [place] [facility] [address] [id number] [place] [address] Aug, [facility] [place] [facility] [address] [id number] [place] [address]- [address] Aug, [facility] [place] [facility] [address] [id number] [place] [address] Jul, [facility] [place] [facility] [address] [id number] [place] [address]- [address] Jul, [facility] [place] [facility] [address] [id number] [place] [address] Jul, [facility] [place] [facility] [address] [id number] [place] [address] Jul, [facility] [place] [facility] [address] [id number] [place] [address]- [address] 18 Jul, 2011 [facility] [place] [facility] [address] [id number] [place] [address]- [address] 17 Jul, 2011 [facility] [place] [facility] [address] [id number] [place] [address] Jul, [facility] [place] [facility] [address] [id number] [place] [address]- [address]276 Jul, [facility] [place] [facility] [address] [id number] [place] [address] May, [facility] [place] [facility] [address] [id number] [place] [address]- 240[address] February, [facility] [place] [facility] [address] [id number] [place] [address]- [address] Nov, [facility] [place] [facility] [address] [id number] [place] [address]- [address]33 Sep, [facility] [place] [facility] [address] [id number] [place] [address]- [address] Aug, [facility] [place] [facility] [address] [id number] [place] [address]- 7727 Oct, [facility] [place] [facility] [address] [id number] [place] [address]- [address] Jul, [facility] [place] [facility] [address] [id number] [place] [address]- 3095 Jun, [facility] [place] [facility] [address] [id number] [place] [address]- [address] 16 Mar, 2009 [facility] [place] [facility] [address] [id number] [place] [address]- [address]84 11 Mar, 2009 [facility] [place] [facility] [address] [facility] [id number] [id number] [address] 17 Nov, 2008 IMMUNIZATIONS No Known Immunizations SOCIAL HISTORY Never Assessed REASON FOR VISIT Controlled Med Refill PLAN OF CARE VITAL SIGNS MEDICATIONS Medication Instructions Dosage Frequency Start Date End Date Duration Status Xanax 1 MG Orally Twice a day as needed 1.5 tablets Jan, 30 days Active RESULTS No Results PROCEDURES No Known procedures INSTRUCTIONS MEDICATIONS ADMINISTERED No Known Medications MEDICAL (GENERAL) HISTORY Type Description Date Medical History Depression Medical History hypertension Medical History Hypothyroidism Medical History anxiety Medical History hyperlipidemia Surgical History right hip replacement 2007 Surgical History left knee cap fixed 2008 Surgical History left knee screw removal 2010 Surgical History cataract surgery both eyes 2011 Surgical History heart cath 2010 Surgical History left hip Oct 2017 Surgical History left wrist Nov 2017 Hospitalization History surgeries Hospitalization History [facility] irregular heart beat, shortness of breath Aug 2016 Hospitalization History post left hip surgery oct 2017
--- OUTSIDE RECORDS SUMMARY | 2019-01-24 07:28 | XMS REPORT ---
Author Author FRANCESCO PHILLIPS [facility] Address [address] [place] [address] Care Team Providers Care Healthcare Technician Name Role Phone FRANCESCO PHILLIPS Unavailable PROBLEMS Type Condition ICD9-CM Code JHI45-VL Code Onset Dates Condition Status SNOMED Code Problem Paroxysmal atrial fibrillation I48.0 Active 188910209 Problem Generalized anxiety disorder F41.1 Active 81975464 Problem Gastro-esophageal reflux disease without esophagitis K21.9 Active 630486136 Problem Chronic kidney disease (CKD) stage G1/A1, glomerular filtration rate ( GFR) equal to or greater than 90 mL/min/1.73 square meter and albuminuria creatinine ratio less than 30 mg/g N18.1 Active 004273952 Problem Arthritis M19.90 Active 5756383 Problem Carpal tunnel syndrome of left wrist G56.02 Active 05896549 Problem Chronic diastolic heart failure I50.32 Active 669496098 Problem 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 Active 407224143 Problem MDD (major depressive disorder), recurrent, in partial remission F33.41 Active 01112965 Problem Secondary hyperparathyroidism of renal origin N25.81 Active 45559805 Problem Acquired hypothyroidism E03.9 Active [id number] ALLERGIES No Information ENCOUNTERS Encounter Location Date Diagnosis [facility] [id number] [address] Sep, [facility] [id number] [address] 3214 Sep, [facility] [id number] [place] [address] 80998- 1561 Aug, Generalized anxiety disorder F41.1 [facility] [id number] [address] 8150 Aug, [facility] [id number] [place] [address] 34424- 0420 Jul, Depression F32.9 [facility] [id number] [place] [address] 29418- 3555 15 Jul, 2018 [facility] [id number] [place] [address] 94013- 0119 08 Jul, 2018 [place] [address] 59843- 0687 10 Jun, 2018 Depression F32.9 [facility] [address] 35569- 0446 31 May, 2018 Arthritis M19.90 and Carpal tunnel syndrome of left wrist G56.02 [facility] [address] 01516- 7401 May, [facility] [address] 60813- 0855 May, Generalized anxiety disorder F41.1 [facility] [id number] [place] [address] 33211- 0752 May, Chronic kidney disease, stage 1 N18.1 [facility] [id number] [place] [address] 25047- 9842 May, Chronic kidney disease, stage 1 N18.1 and Chronic diastolic heart failure I50.32 [facility] [id number] [place] [address] 13158 -7813 Mar, Pain, dental K08.89 [facility] [id number] [place] [address] 66133- 6639 February, Medicare annual wellness visit, initial Z00.00 ; MDD (major depressive disorder), recurrent, in partial remission F33.41 ; Atrial fibrillation, unspecified type I48.91 ; Chronic diastolic heart failure I50.32 ; Secondary hyperparathyroidism of renal origin N25.81 ; Acquired hypothyroidism E03.9 ; Anxiety F41.9 ; Chronic kidney disease, stage 1 N18.1 and Encounter for immunization Z23 [facility] [id number] [place] [address] 86240- 9596 February, Closed fracture of one rib of right side, initial encounter S22.31XA ; Acute cystitis with hematuria N30.01 ; Right flank pain R10.9 and Rib pain on right side R07.81 [facility] [id number] [place] [address] 50303- 0590 Jan, Acquired hypothyroidism E03.9 ; 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 ; Chronic kidney disease (CKD) stage G1/A1, glomerular filtration rate (GFR) equal to or greater than 90 mL/min/1.73 square meter and albuminuria creatinine ratio less than 30 mg/g N18.1 ; Paroxysmal atrial fibrillation I48.0 ; Chronic diastolic heart failure I50.32 and Secondary hyperparathyroidism of renal origin N25.81 [facility] [id number] [place] [address] 57898- 1120 Jan, Arthritis M19.90 [facility] [address] 71170- 0575 Jan, Paroxysmal atrial fibrillation I48.0 [facility] [address] 05463- 2047 Jan, Paroxysmal atrial fibrillation I48.0 [facility] [id number] [place] [address] 72167- 1967 Jan, [facility] [id number] [place] [address] 21160- 2409 Jan, Generalized anxiety disorder F41.1 [facility] [id number] [place] [address] 52243- 5310 Jan, Generalized anxiety disorder F41.1 and MDD (major depressive disorder), recurrent, in partial remission F33.41 [facility] [id number] [place] [address] 55012- 4614 Dec, Arthritis M19.90 [facility] [address] 24451- 1672 Dec, [facility] [id number] [place] [address] 68796- 5622 Nov, Arthritis M19.90 ; Chronic kidney disease (CKD) stage G1/A1 , glomerular filtration rate (GFR) equal to or greater than 90 mL/min/1.73 square meter and albuminuria creatinine ratio less than 30 mg/g N18.1 and Anxiety F41.9 [facility] [address] 54476- 3131 Nov, [facility] [id number] [place] [address] 67227- 1818 Nov, [facility] [address] 82975- 8559 Nov, [place] [address] 86998- 9370 Nov, [facility] [address] 49000- 1807 Nov, [facility] [id number] [place] [address] 02254- 7115 Oct, Generalized anxiety disorder F41.1 [facility] [id number] [place] [address] 81851- 9207 Sep, Atrial fibrillation, unspecified type I48.91 [facility] [id number] [place] [address] 06446- 1251 Sep, Generalized anxiety disorder F41.1 and MDD (major depressive disorder), recurrent, in partial remission F33.41 [facility] [id number] [place] [address] 59788- 3441 Sep, [facility] [address] 46445- 1301 Aug, Generalized anxiety disorder F41.1 [facility] [id number] [place] [address] 19108- 4662 Aug, [facility] [address] [address]- 6800 Aug, Paroxysmal atrial fibrillation I48.0 and Gastro-esophageal reflux disease without esophagitis K21.9 [facility] [address] [address]- 5338 Jul, [facility] [id number] [address]- 2981 Jul, Generalized anxiety disorder F41.1 [facility] [address] [address]- 3353 Jun, Generalized anxiety disorder F41.1 and MDD (major depressive disorder), recurrent, in partial remission F33.41 [facility] [address] [address]- 9853 May, Recurrent major depressive disorder, in partial remission F33.41 [facility] [id number] [place] [address] 49728- 3234 May, Anxiety F41.9 and Paroxysmal atrial fibrillation I48.0 [facility] [id number] [place] [address] 31379- 8288 Apr, Generalized anxiety disorder F41.1 [facility] [id number] [address]- 7361 Mar, [facility] [id number] [address]- 3367 Mar, Generalized anxiety disorder F41.1 and MDD (major depressive disorder), recurrent, in partial remission F33.41 [facility] [address] [address]- 1826 February, Paroxysmal atrial fibrillation I48.0 and Anxiety F41.9 [facility] [address] [address]- 9590 February, MDD (major depressive disorder), recurrent, in partial remission F33.41 [facility] [id number] [address]- 4355 Jan, [facility] [id number] [place] [address] 43295 -4265 Jan, [facility] [id number] [place] [address] 85550- 3353 Jan, [facility] [id number] [place] [address] 05211- 4050 Jan, [facility] [id number] [place] [address] 99696- 4237 Dec, [facility] [id number] [place] [address] 81408- 7462 Dec, Generalized anxiety disorder F41.1 [facility] [id number] [place] [address] 73845- 4382 Dec, Generalized anxiety disorder F41.1 and MDD (major depressive disorder), recurrent, in partial remission F33.41 [facility] [id number] [place] [address] 02284- 9390 15 Dec, 2016 [facility] [id number] [place] [address] 77631- 5269 14 Dec, 2016 [facility] [id number] [place] [address] 21109- 7046 Dec, [facility] [id number] [place] [address] 37969- 1587 Nov, [facility] [id number] [place] [address] 68620- 0701 Nov, Gastro-esophageal reflux disease without esophagitis K21.9 [facility] [id number] [place] [address] 83171- 3723 10 Nov, 2016 Atrial fibrillation, unspecified type I48.91 and Anxiety F41.9 [facility] [id number] [place] [address] 09747- 9858 Oct, [facility] [id number] [place] [address] 72654- 4821 Oct, [facility] [address] 31636- 9284 Oct, Depression F32.9 and Atrial fibrillation, unspecified type I48.91 [facility] [id number] [place] [address] 87800- 8178 Oct, [facility] [id number] [place] [address] 79714- 4455 Sep, Depression F32.9 [place] [address] 07903- 8197 Sep, Recurrent major depressive disorder, in partial remission F33.41 and Generalized anxiety disorder F41.1 [place] [id number] [place] [address] 71586- 6835 Sep, Paroxysmal atrial fibrillation I48.0 and Anxiety F41.9 [facility] [id number] [place] [address] 09368- 5507 Sep, [place] [facility] [id number] [place] [address] 74959- 2157 Sep, [facility] [id number] [place] [address] 86340- 3522 Sep, Gastro-esophageal reflux disease without esophagitis K21.9 [facility] [id number] [place] [address] 21996- 0718 Aug, [facility] [id number] [place] [address] 97160- 5740 Aug, [facility] [id number] [place] [address] 20148- 4794 Aug, Atrial fibrillation, unspecified type I48.91 [facility] [id number] [place] [address] 62659- 6193 Jul, Major depressive disorder, recurrent, in partial remission F33.41 and Generalized anxiety disorder F41.1 [facility] [address] [address]- 7124 Jul, [facility] [id number] [place] [address] 05661- 1643 30 Jun, 2016 [facility] [id number] [place] [address] 73374- 3765 15 Jun, 2016 Bronchitis J40 and Memory loss R41.3 [facility] [id number] [place] [address] 40761- 4851 14 Jun, 2016 Upper respiratory infection with cough and congestion J06.9 [facility] [id number] [place] [address] 36009- 4492 Apr, [facility] [id number] [place] [address] 30680- 8002 Apr, Major depressive disorder, recurrent, unspecified F33.9 ; Anxiety F41.9 and Psychophysiological insomnia F51.04 [facility] [id number] [place] [address] 09116- 1991 Mar, [facility] [id number] [place] [address] 83441- 2914 Mar, [facility] [id number] [place] [address] 86431- 4163 February, [facility] [id number] [place] [address] 82770- 3987 Jan, Postural hypotension I95.1 [facility] [id number] [place] [address] 94367- 7962 14 Jan, 2016 Recurrent major depressive disorder in remission F33.40 ; Generalized anxiety disorder F41.1 and Psychophysiological insomnia F51.04 [facility] [id number] [place] [address] 62479- 8099 Dec, Generalized anxiety disorder F41.1 [facility] [address] 5[address] -1886 Dec, Unspecified fall, initial encounter W19.XXXA [place] [address] 68786- 5392 Nov, Depression F32.9 and Anxiety F41.9 [place] [address] 54796- 9517 Oct, [place] [address] 99417- 0007 Oct, [place] [facility] [address] 25487- 5777 Oct, Chronic kidney disease, stage 3 (moderate) N18.3 [place] [address] 00135- 9588 Oct, Head contusion S00.93XA ; Cervical strain S16.1XXA and Arthritis M19.90 [place] [address] 61806- 8808 Oct, Chronic kidney disease 585.9 [place] [address] 42521- 5633 Oct, Chronic kidney disease 585.9 [place] [address] 39606- 1197 Oct, [place] [address] 89839- 9001 Sep, [place] [address] 06587- 8353 Aug, Chronic kidney disease N18.9 [place] [address] 21617- 9832 Aug, Chronic kidney disease (CKD) stage G1/A1, glomerular filtration rate (GFR) equal to or greater than 90 mL/min/1.73 square meter and albuminuria creatinine ratio less than 30 mg/g N18.1 and GERD (gastroesophageal reflux disease) K21.9 [facility] [address] [address]- 7152 Aug, [facility] [id number] [place] [address] 12303- 3284 Jun, Generalized anxiety disorder 300.02 ; Major depression, recurrent 296.30 and Persistent 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 [facility] [address] 26476- 7708 Jun, [facility] [id number] [place] [address] 82858- 2697 May, [facility] [id number] [place] [address] 43869- 2937 May, Generalized anxiety disorder 300.02 and Depression, major, recurrent, in remission 296.35 [place] [facility] [id number] [place] [address] 83659- 8127 May, [facility] [id number] [place] [address] 60633- 2513 May, [facility] [id number] [place] [address] 08870- 6361 May, [facility] [id number] [place] [address] 81985- 5387 May, [facility] [id number] [place] [address] 18489- 5166 May, Chronic kidney disease 585.9 [facility] [address] [place] [address] 10442- 1473 Apr, Chronic kidney disease 585.9 [facility] [id number] [place] [address] 26098- 5501 Apr, [facility] [id number] [place] [address] 89791- 7171 Apr, Arthropathy 716.90 ; Hyperlipidemia 272.4 ; Hypothyroidism 244.9 and GERD (gastroesophageal reflux disease) 530.81 [facility] [address] [address]- 7347 Apr, Arthropathy 716.90 ; Hypothyroidism 244.9 ; Hyperlipidemia 272.4 and GERD (gastroesophageal reflux disease) 530.81 [facility] [id number] [place] [address] 20118- 5726 Mar, [facility] [id number] [place] [address] 59528- 2811 February, Depression, major, recurrent, in remission 296.35 and Generalized anxiety disorder 300.02 [facility] [id number] [place] [address] 22929- 6643 February, [facility] [id number] [place] [address] 82140- 4261 February, [facility] [id number] [place] [address] 72209- 0917 Jan, [facility] [id number] [place] [address] 02407- 8301 Jan, [facility] [id number] [place] [address] 24364- 0456 Oct, [facility] [id number] [place] [address] 29699- 6048 Oct, [facility] [id number] [place] [address] 44684- 3939 Oct, [facility] [id number] [place] [address] 91390- 5838 Oct, [facility] [id number] [place] [address] 90731- 6284 Oct, [facility] [id number] [place] [address] 24707268- 9438 Oct, [facility] [address] [address]- 7592 Sep, [facility] [place] [facility] [address] [id number] [place] [address]- 0261 Sep, [facility] [place] [facility] [address] [id number] [place] [address]- 4953 Aug, [facility] [place] [facility] [address] [id number] [place] [address]- 9186 Aug, [facility] [place] [facility] [address] [id number] [place] [address]- 5752 Aug, [facility] [place] [facility] [address] [id number] [place] [address]- 7051 Aug, [facility] [place] [facility] [address] [id number] [place] [address]- 1443 Jul, [facility] [place] [facility] [address] [id number] [place] [address]- 0314 Jul, [facility] [place] [facility] [address] [id number] [place] [address]- 0963 Jul, [facility] [place] [facility] [address] [id number] [place] [address]- 7422 Jul, [facility] [place] [facility] [address] [id number] [place] [address]- 4022 29 Jun, 2014 [facility] [place] [facility] [address] [id number] [place] [address]- 2707 22 Jun, 2014 [facility] [place] [facility] [address] [id number] [place] [address]- 6649 22 Jun, 2013 [facility] [place] [facility] [address] [id number] [place] [address]- 2542 10 Jun, 2014 [facility] [place] [facility] [address] [id number] [place] [address] 2546 10 Jun, 2014 [facility] [place] [facility] [address] [id number] [place] [address]- 2546 10 Jun, 2014 [facility] [place] [facility] [address] [id number] [place] [address]- 8719 Jun, [facility] [place] [facility] [address] [id number] [place] [address]- 4359 May, [facility] [place] [facility] [address] [id number] [place] [address]- 4848 May, [facility] [place] [facility] [address] [id number] [place] [address]- 5748 May, [facility] [place] [facility] [address] [id number] [place] [address]- 2841 May, [facility] [place] [facility] [address] [id number] [place] [address]- 8660 Apr, [facility] [place] [facility] [address] [id number] [place] [address]- 4694 Apr, [facility] [place] [facility] [address] [id number] [place] [address]- 2229 Apr, [facility] [place] [facility] [address] [id number] [place] [address]- 5133 Apr, [facility] [place] [facility] [address] [id number] [place] [address]- 4680 Apr, [facility] [place] [facility] [address] [id number] [place] [address]- 8041 Apr, [facility] [place] [facility] [address] [id number] [place] [address]- 9093 Apr, [facility] [place] [facility] [address] [id number] [place] [address]- 6580 Apr, [facility] [place] [facility] [address] [id number] [place] [address]- 9741 Mar, [facility] [place] [facility] [address] [id number] [place] [address]- 1086 Mar, [facility] [place] [facility] [address] [id number] [place] [address]- 9511 Mar, [facility] [place] [facility] [address] [id number] [place] [address]- 8803 Mar, [facility] [place] [facility] [address] [id number] [place] [address]- 6846 Mar, [facility] [place] [facility] [address] [id number] [place] [address]- 3546 Mar, [facility] [place] [facility] [address] [id number] [place] [address]- 5225 Mar, [facility] [place] [facility] [address] [id number] [place] [address]- 3540 Mar, [facility] [place] [facility] [address] [id number] [place] [address]- 6319 Dec, [facility] [place] [facility] [address] [id number] [place] [address] Dec, [facility] [place] [facility] [address] [id number] [place] [address] Dec, [facility] [place] [facility] [address] [id number] [place] [address] Dec, [facility] [place] [facility] [address] [id number] [place] [address] Dec, [facility] [place] [facility] [address] [facility] [id number] [place] [address] Dec, [facility] [place] [facility] [address] [id number] [place] [address] Dec, [facility] [place] [facility] [address] [id number] [place] [address] Dec, [facility] [place] [facility] [address] [id number] [place] [address] Nov, [facility] [place] [facility] [address] [id number] [place] [address] Nov, [facility] [place] [facility] [address] [id number] [place] [address] Nov, [facility] [place] [facility] [address] [id number] [place] [address] 17 Nov, 2013 [facility] [place] [facility] [address] [id number] [place] [address] 14 Nov, 2013 [facility] [place] [facility] [address] [id number] [place] [address] 14 Nov, 2013 [facility] [place] [facility] [address] [id number] [place] [address] Nov, [facility] [place] [facility] [address] [id number] [place] [address] Nov, [facility] [place] [facility] [address] [id number] [place] [address] Aug, [facility] [place] [facility] [address] [id number] [place] [address] Aug, [facility] [place] [facility] [address] [id number] [place] [address] Jul, [facility] [place] [facility] [address] [id number] [place] [address] 18 Jul, 2013 [facility] [place] [facility] [address] [facility] [id number] [place] [address] Jul, [facility] [place] [facility] [address] [id number] [address] 30 Jun, 2012 [facility] [place] [facility] [address] [id number] [place] [address] 30 Jun, 2012 [facility] [place] [facility] [address] [id number] [place] [address] 24 Jun, 2012 [facility] [place] [facility] [address] [id number] [place] [address] 04 Sep, 2012 [facility] [place] [facility] [address] [facility] [id number] [place] [address] 04 Jun, 2012 [facility] [place] [facility] [address] [id number] [place] [address] May, [facility] [address] [id number] [place] [address] Apr, [facility] [address] [id number] [place] [address] Apr, [facility] [address] [id number] [place] [address] Apr, [facility] [address] [id number] [place] [address] Mar, [facility] [address] [id number] [place] [address] Mar, [facility] [address] [id number] [place] [address] February, [facility] [address] [id number] [place] [address] February, [facility] [address] [id number] [place] [address] February, [facility] [address] [id number] [place] [address] February, [facility] [address] [id number] [place] [address] Jan, [facility] [address] [id number] [place] [address] Jan, [facility] [address] [id number] [place] [address] Jan, [facility] [place] [facility] [address] [id number] [place] [address] 04 Jan, 2013 [facility] [place] [facility] [address] [id number] [place] [address] Dec, [facility] [address] [id number] [place] [address] Dec, [facility] [place] [facility] [address] [id number] [place] [address] Dec, [facility] [place] [facility] [address] [id number] [place] [address] 22 Nov, 2012 [facility] [place] [facility] [address] [id number] [place] [address] 15 Nov, 2012 [facility] [place] [facility] [address] [id number] [place] [address] Nov, [facility] [place] [facility] [address] [id number] [place] [address] Oct, [facility] [place] [facility] [address] [id number] [place] [address] Oct, [facility] [place] [facility] [address] [id number] [place] [address] Sep, [facility] [place] [facility] [address] [id number] [place] [address] Sep, [facility] [place] [facility] [address] [id number] [place] [address] Sep, [facility] [place] [facility] [address] [id number] [place] [address] Sep, [facility] [place] [facility] [address] [id number] [place] [address] Sep, [facility] [place] [facility] [address] [id number] [address] Aug, [facility] [place] [facility] [address] [id number] [place] [address] Aug, [facility] [place] [facility] [address] [id number] [place] [address] Aug, [facility] [place] [facility] [address] [id number] [place] [address] Aug, [facility] [place] [facility] [address] [id number] [place] [address] Aug, [facility] [place] [facility] [address] [id number] [place] [address]- [address] Aug, [facility] [place] [facility] [address] [id number] [place] [address] Jun, [facility] [place] [facility] [address] [id number] [place] [address] Jun, [facility] [place] [facility] [address] [id number] [place] [address] Jun, [facility] [place] [facility] [address] [id number] [place] [address] May, [facility] [place] [facility] [address] [id number] [place] [address] May, [facility] [place] [facility] [address] [id number] [place] [address]- [address] May, [facility] [place] [facility] [address] [id number] [place] [address] May, [facility] [place] [facility] [address] [id number] [place] [address] Apr, [facility] [place] [facility] [address] [id number] [place] [address] Mar, [facility] [place] [facility] [address] [id number] [place] [address] Mar, [facility] [place] [facility] [address] [id number] [place] [address] Mar, [facility] [place] [facility] [address] [id number] [place] [address] February, [facility] [place] [facility] [address] [id number] [place] [address] February, [facility] [place] [facility] [address] [id number] [place] [address] February, [facility] [place] [facility] [address] [id number] [place] [address] February, [facility] [place] [facility] [address] [id number] [place] [address] Dec, [facility] [place] [facility] [address] [id number] [place] [address] Dec, [facility] [place] [facility] [address] [id number] [place] [address] Dec, [facility] [place] [facility] [address] [id number] [place] [address] Dec, [facility] [place] [facility] [address] [id number] [place] [address] Nov, [facility] [place] [facility] [address] [id number] [place] [address] Nov, [facility] [place] [facility] [address] [id number] [place] [address] Nov, [facility] [place] [facility] [address] [id number] [place] [address] Nov, [facility] [place] [facility] [address] [id number] [place] [address] Nov, [facility] [place] [facility] [address] [id number] [place] [address] Oct, [facility] [place] [facility] [address] [id number] [place] [address] Oct, [facility] [place] [facility] [address] [id number] [place] [address]60 Oct, [facility] [place] [facility] [address] [id number] [place] [address] Aug, [facility] [place] [facility] [address] [id number] [place] [address] Aug, [facility] [place] [facility] [address] [id number] [place] [address] Jul, [facility] [place] [facility] [address] [id number] [place] [address]- [address] Jul, [facility] [place] [facility] [address] [id number] [place] [address] Jul, [facility] [place] [facility] [address] [id number] [place] [address]- [address] Jul, [facility] [place] [facility] [address] [id number] [place] [address]- [address] Jul, [facility] [place] [facility] [address] [id number] [place] [address] Jul, [facility] [place] [facility] [address] [id number] [place] [address] Jul, [facility] [place] [facility] [address] [id number] [place] [address]- [address] Jul, [facility] [place] [facility] [address] [id number] [place] [address] May, [facility] [place] [facility] [address] [id number] [place] [address] February, [facility] [place] [facility] [address] [id number] [place] [address]- [address] Nov, [facility] [place] [facility] [address] [id number] [place] [address] Sep, [facility] [place] [facility] [address] [id number] [place] [address] Aug, [facility] [place] [facility] [address] [id number] [place] [address] 14 Oct, 2009 [facility] [place] [facility] [address] [id number] [place] [address] Jul, [facility] [place] [facility] [address] [id number] [place] [address] Jun, [facility] [place] [facility] [address] [facility] [id number] [place] [address] 16 Mar, 2009 [facility] [address] [facility] [id number] [place] [address] 11 Mar, 2009 [facility] [address] [facility] [id number] [place] [id number] 17 Nov, 2008 IMMUNIZATIONS No Known Immunizations SOCIAL HISTORY Never Assessed REASON FOR VISIT Requests return call PLAN OF CARE VITAL SIGNS MEDICATIONS Unknown [...]
--- OUTSIDE RECORDS SUMMARY | 2019-01-24 07:29 | XMS REPORT ---
Author Author FRANCESCO PHILLIPS Organization [facility] Address [address] [place] [address] Care Team Providers Care Equipment Maint Tech Name Role Phone FRANCESCO PHILLIPS Unavailable PROBLEMS Type Condition ICD9-CM Code [id number] Code Onset Dates Condition Status SNOMED Code Problem Paroxysmal atrial fibrillation I48.0 Active 509435319 Problem Generalized anxiety disorder F41.1 Active 72145428 Problem Gastro-esophageal reflux disease without esophagitis K21.9 Active 919187024 Problem Chronic kidney disease (CKD) stage G1/A1, glomerular filtration rate ( GFR) equal to or greater than 90 mL/min/1.73 square meter and albuminuria creatinine ratio less than 30 mg/g N18.1 Active 944611658 Problem Arthritis M19.90 Active 6286001 Problem Carpal tunnel syndrome of left wrist G56.02 Active 93598956 Problem Chronic diastolic heart failure I50.32 Active 983474616 Problem 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 Active 518344334 Problem MDD (major depressive disorder), recurrent, in partial remission F33.41 Active 01055215 Problem Secondary hyperparathyroidism of renal origin N25.81 Active 37439256 Problem Acquired hypothyroidism E03.9 Active 900715323 ALLERGIES No Information ENCOUNTERS Encounter Location Date Diagnosis [place] [address] [address] Aug, Generalized anxiety disorder F41.1 [facility] [id number] [address] Aug, [place] [id number] [place] [address] 12516- 0672 Jul, Depression F32.9 [facility] [id number] [address] Jul, [place] [address] [address] 86[address] 08 Jul, 2018 [place] [id number] [place] [address] 13930- 7981 10 Jun, 2018 Depression F32.9 [facility] [id number] [place] [address] 43388- 9592 31 May, 2018 Arthritis M19.90 and Carpal tunnel syndrome of left wrist G56.02 [place] [id number] [place] [address] 02949- 7950 May, [place] [id number] [place] [address] 50577- 0039 May, Generalized anxiety disorder F41.1 [place] [id number] [place] [address] 09736- 8444 May, Chronic kidney disease, stage 1 N18.1 [place] [id number] [place] [address] 11205- 5480 May, Chronic kidney disease, stage 1 N18.1 and Chronic diastolic heart failure I50.32 [facility] [id number] [place] [address] 47823 -2195 19 Mar, 2018 Pain, dental K08.89 [place] [id number] [place] [address] 48559- 8062 February, Medicare annual wellness visit, initial Z00.00 ; MDD (major depressive disorder), recurrent, in partial remission F33.41 ; Atrial fibrillation, unspecified type I48.91 ; Chronic diastolic heart failure I50.32 ; Secondary hyperparathyroidism of renal origin N25.81 ; Acquired hypothyroidism E03.9 ; Anxiety F41.9 ; Chronic kidney disease, stage 1 N18.1 and Encounter for immunization Z23 [place] [address] [place] [address] 04679- 0880 February, Closed fracture of one rib of right side, initial encounter S22.31XA ; Acute cystitis with hematuria N30.01 ; Right flank pain R10.9 and Rib pain on right side R07.81 [place] [address] [place] [address] 44578- 0158 Jan, Acquired hypothyroidism E03.9 ; 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 ; Chronic kidney disease (CKD) stage G1/A1, glomerular filtration rate (GFR) equal to or greater than 90 mL/min/1.73 square meter and albuminuria creatinine ratio less than 30 mg/g N18.1 ; Paroxysmal atrial fibrillation I48.0 ; Chronic diastolic heart failure I50.32 and Secondary hyperparathyroidism of renal origin N25.81 [place] [id number] [place] [address] 25293- 1094 Jan, Arthritis M19.90 [place] [id number] [place] [address] 58167- 3774 Jan, Paroxysmal atrial fibrillation I48.0 [place] [id number] [place] [address] 17767- 4049 Jan, Paroxysmal atrial fibrillation I48.0 [place] [id number] [place] [address] 44196- 6902 Jan, [place] [id number] [place] [address] 94522- 7725 Jan, Generalized anxiety disorder F41.1 [place] [id number] [place] [address] 13743- 1542 Jan, Generalized anxiety disorder F41.1 and MDD (major depressive disorder), recurrent, in partial remission F33.41 [place] [address] [place] [address] 93257- 9390 Dec, Arthritis M19.90 [place] [id number] [place] [address] 73256- 3655 Dec, [place] [id number] [place] [address] 70297- 5112 Nov, Arthritis M19.90 ; Chronic kidney disease (CKD) stage G1/A1 , glomerular filtration rate (GFR) equal to or greater than 90 mL/min/1.73 square meter and albuminuria creatinine ratio less than 30 mg/g N18.1 and Anxiety F41.9 [place] [id number] [place] [address] 95226- 8427 Nov, [place] [address] [place] [address] 09897- 2202 Nov, [place] [address] 29520- 7602 Nov, [place] [id number] [place] [address] 55347- 5523 Nov, [place] [address] [place] [address] 24672- 2481 Nov, [place] [id number] [place] [address] 71979- 5642 Oct, Generalized anxiety disorder F41.1 [place] [address] [place] [address] 14271- 1727 Sep, Atrial fibrillation, unspecified type I48.91 [place] [id number] [place] [address] 99840- 7591 Sep, Generalized anxiety disorder F41.1 and MDD (major depressive disorder), recurrent, in partial remission F33.41 [place] [id number] [place] [address] 36067- 4845 Sep, [place] [id number] [place] [address] 62866- 1040 Aug, Generalized anxiety disorder F41.1 [place] [address] [place] [address] 07218- 0964 Aug, [place] [address] [place] [address] 67472- 9342 Aug, Paroxysmal atrial fibrillation I48.0 and Gastro-esophageal reflux disease without esophagitis K21.9 [place] [address] [id number] [address]- 9187 Jul, [facility] [address] [address] 9196 Jul, Generalized anxiety disorder F41.1 [facility] [address] [address]- 3843 Jun, Generalized anxiety disorder F41.1 and MDD (major depressive disorder), recurrent, in partial remission F33.41 [facility] [address] [address]- 5209 May, Recurrent major depressive disorder, in partial remission F33.41 [facility] [address] [place] [address] 22739- 1340 May, Anxiety F41.9 and Paroxysmal atrial fibrillation I48.0 [place] [address] [address]- 4366 Apr, Generalized anxiety disorder F41.1 [facility] [address] [address]- 9614 Mar, [facility] [address] [place] [address] 87079- 5464 Mar, Generalized anxiety disorder F41.1 and MDD (major depressive disorder), recurrent, in partial remission F33.41 [facility] [address] [address]- 2905 February, Paroxysmal atrial fibrillation I48.0 and Anxiety F41.9 [facility] [address] [address]- 5603 February, MDD (major depressive disorder), recurrent, in partial remission F33.41 [facility] [address] [address]- 0147 Jan, [facility] [address] [place] [address] Jan, [facility] [id number] [address]- 6834 Jan, [facility] [address] [place] [address] 72825- 4073 Jan, [facility] [id number] [place] [address] 81823- 1533 31 Dec, 2016 [facility] [address] [place] [address] 05272- 9596 Dec, Generalized anxiety disorder F41.1 [facility] [address] [place] [address] 25836- 0486 Dec, Generalized anxiety disorder F41.1 and MDD (major depressive disorder), recurrent, in partial remission F33.41 [facility] [address] [place] [address] 28661- 5337 15 Dec, 2016 [facility] [address] [place] [address] 68633- 6177 14 Dec, 2016 [facility] [address] [place] [address] 62831- 1039 07 Dec, 2016 [facility] [address] [place] [address] 10996- 7069 28 Nov, 2016 [facility] [address] [place] [address] 72429- 0105 27 Nov, 2016 Gastro-esophageal reflux disease without esophagitis K21.9 [facility] [address] [place] [address] 70627- 3575 10 Nov, 2016 Atrial fibrillation, unspecified type I48.91 and Anxiety F41.9 [facility] [address] [place] [address] 67890- 1724 Oct, [facility] [address] [place] [address] 31937- 8769 Oct, [facility] [address] [place] [address] 09121- 7028 Oct, Depression F32.9 and Atrial fibrillation, unspecified type I48.91 [facility] [address] [place] [address] 54242- 9354 Oct, [facility] [address] [place] [address] 49681- 7769 Sep, Depression F32.9 [facility] [address] [place] [address] 85099- 2672 Sep, Recurrent major depressive disorder, in partial remission F33.41 and Generalized anxiety disorder F41.1 [facility] [address] [place] [address] 60953- 5050 Sep, Paroxysmal atrial fibrillation I48.0 and Anxiety F41.9 [facility] [address] [place] [address] 77114- 6153 Sep, [facility] [address] [place] [address] 17617- 8840 Sep, [facility] [address] [place] [address] 96676- 5405 Sep, Gastro-esophageal reflux disease without esophagitis K21.9 [facility] [address] [place] [address] 37078- 3025 Aug, [facility] [address] [place] [address] 37335- 6772 Aug, [facility] [address] [place] [address] 64666- 9899 Aug, Atrial fibrillation, unspecified type I48.91 [facility] [address] [place] [address] 58552- 8702 Jul, Major depressive disorder, recurrent, in partial remission F33.41 and Generalized anxiety disorder F41.1 [facility] [address] [place] [address] 79442- 4358 Jul, [facility] [address] [place] [address] 06068- 4213 30 Jun, 2016 [facility] [address] [place] [address] 07476- 6438 15 Jun, 2016 Bronchitis J40 and Memory loss R41.3 [place] [address] [place] [address] 64512- 7379 14 Jun, 2016 Upper respiratory infection with cough and congestion J06.9 [place] [address] [place] [address] 64693- 8576 Apr, [place] [address] [place] [address] 57657- 5796 Apr, Major depressive disorder, recurrent, unspecified F33.9 ; Anxiety F41.9 and Psychophysiological insomnia F51.04 [place] [address] [place] [address] 04073- 1940 Mar, [place] [address] [place] [address] 57583- 2490 Mar, [place] [address] [place] [address] 28135- 8437 February, [place] [address] [place] [address] 06013- 9155 Jan, Postural hypotension I95.1 [place] [address] [place] [address] 16992- 9494 14 Jan, 2016 Recurrent major depressive disorder in remission F33.40 ; Generalized anxiety disorder F41.1 and Psychophysiological insomnia F51.04 [place] [address] [place] [address] 47952- 5450 Dec, Generalized anxiety disorder F41.1 [facility] [address] [place] [address] 48561 -6107 Dec, Unspecified fall, initial encounter W19.XXXA [place] [address] [place] [address] 61592- 7390 05 Feb, 2016 Depression F32.9 and Anxiety F41.9 [place] [address] 79385- 0750 Oct, [place] [address] 43778- 0780 Oct, [place] [address] 19472- 7653 Oct, Chronic kidney disease, stage 3 (moderate) N18.3 [place] [address] 60164- 3390 Oct, Head contusion S00.93XA ; Cervical strain S16.1XXA and Arthritis M19.90 [place] [address] 79577- 0466 Oct, Chronic kidney disease 585.9 [place] [address] 38355- 4324 Oct, Chronic kidney disease 585.9 [place] [address] 75054- 2277 Oct, [place] [address] 35709- 0886 Sep, [place] [address] 15857- 2004 Aug, Chronic kidney disease N18.9 [place] [address] 04696- 8835 Aug, Chronic kidney disease (CKD) stage G1/A1, glomerular filtration rate (GFR) equal to or greater than 90 mL/min/1.73 square meter and albuminuria creatinine ratio less than 30 mg/g N18.1 and GERD (gastroesophageal reflux disease) K21.9 [place] [address] 37266- 4914 Aug, [place] [address] 10532- 0681 Jun, Generalized anxiety disorder 300.02 ; Major depression, recurrent 296.30 and Persistent 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 [facility] [address] [place] [address] 07162- 2071 Jun, [facility] [address] [place] [address] 75936- 4032 May, [facility] [address] [place] [address] 26902- 1341 May, Generalized anxiety disorder 300.02 and Depression, major, recurrent, in remission 296.35 [facility] [address] [place] [address] 01877- 0136 May, [facility] [address] [place] [address] 70860- 6981 May, [facility] [address] [place] [address] 36673- 3926 May, [facility] [address] [place] [address] 75288- 5726 May, [facility] [address] [place] [address] 77134- 7533 May, Chronic kidney disease 585.9 [facility] [address] [place] [address] 38257- 0542 Apr, Chronic kidney disease 585.9 [facility] [address] [place] [address] 14084- 3482 Apr, [facility] [address] [place] [address] 35767- 4802 Apr, Arthropathy 716.90 ; Hyperlipidemia 272.4 ; Hypothyroidism 244.9 and GERD (gastroesophageal reflux disease) 530.81 [facility] [address] [address]- 9151 Apr, Arthropathy 716.90 ; Hypothyroidism 244.9 ; Hyperlipidemia 272.4 and GERD (gastroesophageal reflux disease) 530.81 [place] [address] [facility] [id number] [address]- 4481 17 Mar, 2015 [facility] [address] 1684 February, Depression, major, recurrent, in remission 296.35 and Generalized anxiety disorder 300.02 [facility] [address] [place] [address]- 2686 February, [facility] [address] [address]- 9399 February, [facility] [address] [place] [address], [place] [address]- 8015 Jan, [facility] [address] [address]- 3672 Jan, [facility] [address] [address]- 6246 Oct, [facility] [address] [address]- 7804 Oct, [facility] [address] [place] [address]- 9512 Oct, [facility] [address] [address]- 3521 Oct, [facility] [id number] [address]- 2743 Oct, [facility] [id number] [address]- 7863 Oct, [facility] [id number] [address]- 1871 Sep, [facility] [address] [address]- 2070 Sep, [facility] [id number] [address]- 1725 Aug, [facility] [place] [facility] [address] [id number] [place] [address]- 3030 Aug, [facility] [place] [facility] [address] [id number] [place] [address]- 9251 Aug, [facility] [place] [facility] [address] [id number] [place] [address]- 8486 Aug, [facility] [place] [facility] [address] [id number] [place] [address]- 3107 Jul, [facility] [place] [facility] [address] [id number] [place] [address]- 3917 Jul, [facility] [place] [facility] [address] [id number] [place] [address]- 3806 Jul, [facility] [place] [facility] [address] [id number] [place] [address]- 0874 Jul, [facility] [place] [facility] [address] [id number] [place] [address]- 6734 29 Jun, 2014 [facility] [place] [facility] [address] [id number] [place] [address]- 9854 Jun, [facility] [place] [facility] [address] [id number] [place] [address]- 6024 Jun, [facility] [place] [facility] [address] [id number] [place] [address]- 4418 10 Jun, 2014 [facility] [place] [facility] [address] [id number] [place] [address]- 4158 Jun, [facility] [place] [facility] [address] [id number] [place] [address] 2548 Jun, [facility] [place] [facility] [address] [id number] [place] [address] 2546 Jun, [facility] [place] [facility] [address] [id number] [place] [address]- 3081 May, [facility] [place] [facility] [address] [id number] [place] [address]- 7127 May, [facility] [place] [facility] [address] [id number] [place] [address]- 5225 May, [facility] [place] [facility] [address] [id number] [place] [address]- 9837 May, [facility] [place] [facility] [address] [id number] [place] [address]- 5153 Apr, [facility] [place] [facility] [address] [id number] [place] [address]- 8190 Apr, [facility] [place] [facility] [address] [id number] [place] [address]- 4706 Apr, [facility] [place] [facility] [address] [id number] [place] [address]- 3989 Apr, [facility] [place] [facility] [address] [id number] [place] [address]- 9454 Apr, [facility] [place] [facility] [address] [id number] [place] [address]- 4607 Apr, [facility] [place] [facility] [address] [id number] [place] [address]- 5659 Apr, [facility] [place] [facility] [address] [id number] [place] [address]- 2917 Apr, [facility] [place] [facility] [address] [id number] [place] [address]- 6693 Mar, [facility] [place] [facility] [address] [id number] [place] [address]- 6507 Mar, [facility] [place] [facility] [address] [id number] [place] [address]- 2669 Mar, [facility] [place] [facility] [address] [id number] [place] [address]- 4439 Mar, [facility] [place] [facility] [address] [id number] [place] [address]- 4404 Mar, [facility] [place] [facility] [address] [id number] [place] [address]- 4249 24 Mar, 2014 [facility] [place] [facility] [address] [id number] [place] [address]- 5732 Mar, [facility] [place] [facility] [address] [id number] [place] [address]- 5714 Mar, [facility] [place] [facility] [address] [id number] [place] 5043 Dec, [facility] [place] [facility] [address] [id number] [place] [address]- 4163 Dec, [facility] [place] [facility] [address] [id number] [place] 4805 Dec, [facility] [place] [facility] [address] [facility] [id number] [place] [address]- 9344 Dec, [facility] [place] [facility] [address] [facility] [id number] [place] [address] Dec, [facility] [place] [facility] [address] [facility] [id number] [place] [address] Dec, [facility] [place] [facility] [address] [id number] [place] [address] Dec, [facility] [place] [facility] [address] [facility] [id number] [place] [address] Dec, [facility] [place] [facility] [address] [id number] [place] [address] Nov, [facility] [place] [facility] [address] [facility] [id number] [place] [address] Nov, [facility] [place] [facility] [address] [id number] [place] [address] Nov, [facility] [place] [facility] [address] [facility] [id number] [place] [address] 17 Nov, 2013 [facility] [place] [facility] [address] [facility] [id number] [place] [address] Nov, [facility] [place] [facility] [address] [id number] [place] [address] 14 Nov, 2013 [facility] [place] [facility] [address] [id number] [place] [address] Nov, [facility] [place] [facility] [address] [id number] [place] [address] Nov, [facility] [place] [facility] [address] [id number] [place] [address] Aug, [facility] [place] [facility] [address] [id number] [place] [address] Aug, [facility] [place] [facility] [address] [id number] [place] [address] Jul, [facility] [place] [facility] [address] [id number] [place] [address] Jul, [facility] [place] [facility] [address] [id number] [place] [address] Jul, [facility] [place] [facility] [address] [id number] [place] [address] 30 Jun, 2013 [facility] [place] [facility] [address] [id number] [place] [address] 30 Jun, 2013 [facility] [place] [facility] [address] [id number] [place] [address] 24 Jun, 2013 [facility] [place] [facility] [address] [id number] [place] [address] Jun, [facility] [place] [facility] [address] [id number] [place] [address] Jun, [facility] [place] [facility] [address] [id number] [place] [address] May, [facility] [place] [facility] [address] [id number] [place] [address] Apr, [facility] [place] [facility] [address] [id number] [place] [address] Apr, [facility] [address] [id number] [place] [address] Apr, [facility] [address] [id number] [place] [address] Mar, [facility] [address] [id number] [place] [address] Mar, [facility] [address] [id number] [place] [address] February, [facility] [address] [id number] [place] [address] February, [facility] [address] [id number] [place] [address] February, [facility] [address] [id number] [place] [address] February, [facility] [address] [id number] [place] [address] Jan, [facility] [address] [id number] [place] [address] Jan, [facility] [address] [id number] [place] [address] Jan, [facility] [address] [id number] [place] [address] 04 Jan, 2013 [facility] [address] [id number] [place] [address] Dec, [facility] [place] [facility] [address] [id number] [place] [address] Dec, [facility] [place] [facility] [address] [id number] [place] [address] Dec, [facility] [address] [id number] [place] [address] Nov, [facility] [place] [facility] [address] [id number] [place] [address] Nov, [facility] [place] [facility] [address] [id number] [place] [address] Nov, [facility] [place] [facility] [address] [id number] [place] [address] Oct, [facility] [place] [facility] [address] [id number] [place] [address] Oct, [facility] [place] [facility] [address] [id number] [place] [address] Sep, [facility] [place] [facility] [address] [id number] [place] [address] Sep, [facility] [place] [facility] [address] [id number] [place] [address] Sep, [facility] [place] [facility] [address] [id number] [place] [address] Sep, [facility] [place] [facility] [address] [id number] [place] [address] Sep, [facility] [place] [facility] [address] [id number] [place] [address] Aug, [facility] [place] [facility] [address] [id number] [place] [address] Aug, [facility] [place] [facility] [address] [id number] [place] [address] Aug, [facility] [place] [facility] [address] [id number] [place] [address] Aug, [facility] [place] [facility] [address] [id number] [place] [address] Aug, [facility] [place] [facility] [address] [id number] [place] [address] Aug, [facility] [place] [facility] [address] [id number] [place] [address] Jun, [facility] [address] [id number] [place] [address] Jun, [facility] [place] [facility] [address] [id number] [place] [address]- [address] Jun, [facility] [place] [facility] [address] [id number] [place] [address] May, [facility] [place] [facility] [address] [id number] [place] [address]- [address] May, [facility] [place] [facility] [address] [id number] [place] [address]- [address] May, [facility] [place] [facility] [address] [id number] [place] [address] May, [facility] [address] [id number] [place] [address]- [address] Apr, [facility] [place] [facility] [address] [id number] [place] [address] Mar, [facility] [place] [facility] [address] [id number] [place] [address] Mar, [facility] [place] [facility] [address] [id number] [place] [address] Mar, [facility] [place] [facility] [address] [id number] [place] [address] February, [facility] [place] [facility] [address] [id number] [place] [address] February, [facility] [place] [facility] [address] [id number] [place] [address] February, [facility] [place] [facility] [address] [id number] [place] [address] February, [facility] [place] [facility] [address] [id number] [place] [address] Dec, [facility] [place] [facility] [address] [id number] [place] [address] Dec, [facility] [place] [facility] [address] [id number] [place] [address] Dec, [facility] [place] [facility] [address] [id number] [place] [address] 139[address] Dec, [facility] [place] [facility] [address] [id number] [place] [address] Nov, [facility] [place] [facility] [address] [id number] [place] [address] Nov, [facility] [place] [facility] [address] [id number] [place] [address] Nov, [facility] [place] [facility] [address] [id number] [place] [address] Nov, [facility] [place] [facility] [address] [id number] [place] [address]- [address] Nov, [facility] [place] [facility] [address] [id number] [place] [address]- [address] Oct, [facility] [place] [facility] [address] [facility] [id number] [place] [address] Oct, [facility] [place] [facility] [address] [id number] [place] [address] Oct, [facility] [place] [facility] [address] [id number] [place] [address]- 8068 Aug, [facility] [place] [facility] [address] [id number] [place] [address]- [address] Aug, [facility] [place] [facility] [address] [id number] [place] [address] Jul, [facility] [place] [facility] [address] [id number] [place] [address] Jul, [facility] [place] [facility] [address] [id number] [place] [address] Jul, [facility] [place] [facility] [address] [id number] [place] [address] Jul, [facility] [place] [facility] [address] [id number] [place] [address] 18 Jul, 2011 [facility] [place] [facility] [address] [id number] [place] [address]- [address] 17 Jul, 2011 [facility] [place] [facility] [address] [id number] [place] [address] Jul, [facility] [place] [facility] [address] [id number] [place] [address] Jul, [facility] [place] [facility] [address] [id number] [place] [address]- [address] May, [facility] [place] [facility] [address] [id number] [place] [address] 78[address] February, [facility] [place] [facility] [address] [id number] [place] [address] 12[address] Nov, [facility] [place] [facility] [address] [id number] [place] [address]- [address] Sep, [facility] [place] [facility] [address] [id number] [place] [address]- 78[address] Aug, [facility] [place] [facility] [address] [id number] [place] [address]- 9099 Oct, [facility] [place] [facility] [address] [id number] [place] [address]- [address] Jul, [facility] [place] [facility] [address] [id number] [place] [address]- [address] Jun, [facility] [place] [facility] [address] [id number] [place] [address]- [address] 16 Mar, 2009 [facility] [place] [facility] [address] [id number] [place] [address]- [address] 11 Mar, 2009 [facility] [place] [facility] [address] [facility] [id number] [place] [address] 17 Nov, 2008 IMMUNIZATIONS No Known Immunizations SOCIAL HISTORY Never Assessed REASON FOR VISIT Medication question PLAN OF CARE VITAL SIGNS MEDICATIONS Unknown [...]
[2019-01-24 07:30] VITALS: BP 104/76
--- OUTSIDE RECORDS SUMMARY | 2019-01-24 07:30 | XMS REPORT ---
Author Author FRANCESCO PHILLIPS Organization [facility] Address [address] [place] [address] Care Team Providers Care Hot Top Liner Name Role Phone FRANCESCO PHILLIPS Unavailable PROBLEMS Type Condition ICD9-CM Code CYZ61-OF Code Onset Dates Condition Status SNOMED Code Problem Paroxysmal atrial fibrillation I48.0 Active 385231700 Problem Generalized anxiety disorder F41.1 Active 82448762 Problem Gastro-esophageal reflux disease without esophagitis K21.9 Active 894393130 Problem Chronic kidney disease (CKD) stage G1/A1, glomerular filtration rate ( GFR) equal to or greater than 90 mL/min/1.73 square meter and albuminuria creatinine ratio less than 30 mg/g N18.1 Active 778055620 Problem Arthritis M19.90 Active 8526415 Problem Carpal tunnel syndrome of left wrist G56.02 Active 00242193 Problem Chronic diastolic heart failure I50.32 Active 802867154 Problem 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 Active 444564901 Problem MDD (major depressive disorder), recurrent, in partial remission F33.41 Active 23738810 Problem Secondary hyperparathyroidism of renal origin N25.81 Active 10932829 Problem Acquired hypothyroidism E03.9 Active 206533076 ALLERGIES No Information ENCOUNTERS Encounter Location Date Diagnosis [facility] [id number], [place] [address] Jul, [facility] [id number], [place] [address] 10 Jun, 2018 Depression F32.9 [facility] [address], [place] [address] May, Arthritis M19.90 and Carpal tunnel syndrome of left wrist G56.02 [facility] [id number], [place] [address] May, [address], [place] [address] 98[address] May, Generalized anxiety disorder F41.1 [address] [id number] [place] [address] 50196- 0694 May, Chronic kidney disease, stage 1 N18.1 [place] [id number] [place] [address] 51029- 6277 May, Chronic kidney disease, stage 1 N18.1 and Chronic diastolic heart failure I50.32 [facility] [id number] [place] [address] 32174 -3036 Mar, Pain, dental K08.89 [address] [id number] [place] [address] 40462- 6862 February, Medicare annual wellness visit, initial Z00.00 ; MDD (major depressive disorder), recurrent, in partial remission F33.41 ; Atrial fibrillation, unspecified type I48.91 ; Chronic diastolic heart failure I50.32 ; Secondary hyperparathyroidism of renal origin N25.81 ; Acquired hypothyroidism E03.9 ; Anxiety F41.9 ; Chronic kidney disease, stage 1 N18.1 and Encounter for immunization Z23 [address] [id number] [place] [address] 89189- 5182 February, Closed fracture of one rib of right side, initial encounter S22.31XA ; Acute cystitis with hematuria N30.01 ; Right flank pain R10.9 and Rib pain on right side R07.81 [place] [id number] [place] [address] 62832- 1209 Jan, Acquired hypothyroidism E03.9 ; 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 ; Chronic kidney disease (CKD) stage G1/A1, glomerular filtration rate (GFR) equal to or greater than 90 mL/min/1.73 square meter and albuminuria creatinine ratio less than 30 mg/g N18.1 ; Paroxysmal atrial fibrillation I48.0 ; Chronic diastolic heart failure I50.32 and Secondary hyperparathyroidism of renal origin N25.81 [address] [id number] [place] [address] 92203- 9978 Jan, Arthritis M19.90 [facility] [id number] [place] [address] 69713- 8229 Jan, Paroxysmal atrial fibrillation I48.0 [place] [id number] [place] [address] 75628- 3587 Jan, Paroxysmal atrial fibrillation I48.0 [place] [id number] [place] [address] 72254- 4730 Jan, [place] [id number] [place] [address] 61149- 4307 Jan, Generalized anxiety disorder F41.1 [place] [id number] [place] [address] 29027- 2584 Jan, Generalized anxiety disorder F41.1 and MDD (major depressive disorder), recurrent, in partial remission F33.41 [address] [id number] [place] [address] 21394- 1764 Dec, Arthritis M19.90 [place] [id number] [place] [address] 79173- 4305 Dec, [address] [id number] [place] [address] 24388- 9646 Nov, Arthritis M19.90 ; Chronic kidney disease (CKD) stage G1/A1 , glomerular filtration rate (GFR) equal to or greater than 90 mL/min/1.73 square meter and albuminuria creatinine ratio less than 30 mg/g N18.1 and Anxiety F41.9 [address], [place] [address]- 8868 Nov, [address] [place] [id number] [place] [address] 63853- 8335 Nov, [address] [place] [id number] [place] [address] 94053- 0896 Nov, [address] [id number] [place] [address] 11203- 3906 Nov, [facility] [id number] [place] [address] 01504- 0596 Nov, [facility] [id number] [place] [address] 02102- 7716 Oct, Generalized anxiety disorder F41.1 [facility] [id number] [place] [address] 39630- 2686 Sep, Atrial fibrillation, unspecified type I48.91 [facility] [id number] [place] [address] 65797- 2776 Sep, Generalized anxiety disorder F41.1 and MDD (major depressive disorder), recurrent, in partial remission F33.41 [address] [id number] [place] [address] 03131- 9236 Sep, [facility] [id number] [place] [address] 32395- 0768 Aug, Generalized anxiety disorder F41.1 [facility] [address] [place] [address] 73077- 7301 Aug, [facility] [id number] [place] [address] 28427- 6113 Aug, Paroxysmal atrial fibrillation I48.0 and Gastro-esophageal reflux disease without esophagitis K21.9 [facility] [address] [place] [address] 44149- 5808 Jul, [facility] [address] [place] [address] 87259- 9691 Jul, Generalized anxiety disorder F41.1 [facility] [address] [place] [address] 69726- 8866 Jun, Generalized anxiety disorder F41.1 and MDD (major depressive disorder), recurrent, in partial remission F33.41 [facility] [id number] [place] [address] 30849- 6545 May, Recurrent major depressive disorder, in partial remission F33.41 [facility] [address] [place] [address] 65534- 2906 May, Anxiety F41.9 and Paroxysmal atrial fibrillation I48.0 [facility] [id number] [address]- 3556 Apr, Generalized anxiety disorder F41.1 [facility] [id number] [place] [address] 86950- 0767 Mar, [facility] [id number] [place] [address] 56689- 7622 Mar, Generalized anxiety disorder F41.1 and MDD (major depressive disorder), recurrent, in partial remission F33.41 [facility] [id number] [place] [address] 24027- 5539 February, Paroxysmal atrial fibrillation I48.0 and Anxiety F41.9 [facility] [id number] [place] [address] 87784- 8516 February, MDD (major depressive disorder), recurrent, in partial remission F33.41 [facility] [id number] [place] [address] 99163- 6256 Jan, [facility] [address], [place] [address] Jan, [facility] [id number] [place] [address] 63811- 7906 Jan, [facility] [address], [place] [address]- 1717 Jan, [facility] [id number] [place] [address] 68840- 6536 Dec, [facility] [address], [place] [address]- 1436 Dec, Generalized anxiety disorder F41.1 [facility] [id number], [place] [address]- 7333 Dec, Generalized anxiety disorder F41.1 and MDD (major depressive disorder), recurrent, in partial remission F33.41 [facility] [id number] [place] [address] 03957- 9008 15 Dec, 2016 [facility] [id number] [place] [address] 50596- 6970 14 Dec, 2016 [facility] [id number] [place] [address] 78864- 7712 Dec, [facility] [id number] [place] [address] 14552- 4063 Nov, [facility] [id number] [place] [address] 50435- 0145 Nov, Gastro-esophageal reflux disease without esophagitis K21.9 [facility] [id number] [place] [address] 79179- 0285 10 Nov, 2016 Atrial fibrillation, unspecified type I48.91 and Anxiety F41.9 [facility] [id number] [place] [address] 81624- 6925 Oct, [facility] [id number] [place] [address] 53085- 7527 Oct, [facility] [address] [place] [address] 51768- 0748 Oct, Depression F32.9 and Atrial fibrillation, unspecified type I48.91 [facility] [address] [place] [address] 55003- 8668 Oct, [facility] [id number] [place] [address] 56129- 6191 Sep, Depression F32.9 [facility] [address] [place] [address] 71149- 9731 Sep, Recurrent major depressive disorder, in partial remission F33.41 and Generalized anxiety disorder F41.1 [address] [id number] [place] [address] 93414- 9557 09 Sep, 2016 Paroxysmal atrial fibrillation I48.0 and Anxiety F41.9 [address] [id number] [place] [address] 03177- 5659 Sep, [id number] [place] [address] 23405- 9042 Sep, [id number] [place] [address] 79753- 5421 Sep, Gastro-esophageal reflux disease without esophagitis K21.9 [address] [id number] [place] [address] 02167- 6362 Aug, [address] [id number] [place] [address] 60081- 6140 Aug, [address] [id number] [place] [address] 16761- 4873 Aug, Atrial fibrillation, unspecified type I48.91 [id number] [place] [address] 88994- 9617 Jul, Major depressive disorder, recurrent, in partial remission F33.41 and Generalized anxiety disorder F41.1 [address] [place] [place] [address] 17976- 5144 Jul, [address] [id number] [place] [address] 05640- 8858 30 Jun, 2016 [address] [id number] [place] [address] 48327- 1286 15 Jun, 2016 Bronchitis J40 and Memory loss R41.3 [id number] [place] [address] 38670- 8892 14 Jun, 2016 Upper respiratory infection with cough and congestion J06.9 [address] [place] [place] [address] 13744- 3555 Apr, [id number] [place] [address] 45153- 2236 Apr, Major depressive disorder, recurrent, unspecified F33.9 ; Anxiety F41.9 and Psychophysiological insomnia F51.04 [facility] [id number] [place] [address] 73991- 0557 Mar, [facility] [id number] [place] [address] 76963- 7079 Mar, [facility] [id number] [place] [address] 07832- 2068 February, [address] [id number] [place] [address] 75393- 4916 Jan, Postural hypotension I95.1 [address] [place] [id number] [place] [address] 18898- 2683 Jan, Recurrent major depressive disorder in remission F33.40 ; Generalized anxiety disorder F41.1 and Psychophysiological insomnia F51.04 [facility] [id number] [place] [address] 26526- 6063 Dec, Generalized anxiety disorder F41.1 [facility] [id number] [place] [address] 87974 -3124 Dec, Unspecified fall, initial encounter W19.XXXA [address] [id number] [place] [address] 65186- 5273 Nov, Depression F32.9 and Anxiety F41.9 [facility] [address] [place] [address] 37307- 0092 Oct, [id number] [place] [address] 34451- 9996 Oct, [address] [id number] [place] [address] 41306- 7088 Oct, Chronic kidney disease, stage 3 (moderate) N18.3 [address] [id number] [place] [address] 52340- 4332 Oct, Head contusion S00.93XA ; Cervical strain S16.1XXA and Arthritis M19.90 [address] [address] 54636- 7659 Oct, Chronic kidney disease 585.9 [address] [address] 54536- 0070 Oct, Chronic kidney disease 585.9 [address] 20742- 2682 Oct, [address] [address] 63930- 3487 Sep, [address] [address] 29980- 3763 Aug, Chronic kidney disease N18.9 [address] [address] 49173- 7667 Aug, Chronic kidney disease (CKD) stage G1/A1, glomerular filtration rate (GFR) equal to or greater than 90 mL/min/1.73 square meter and albuminuria creatinine ratio less than 30 mg/g N18.1 and GERD (gastroesophageal reflux disease) K21.9 [address] [id number] [place] [address] 37855- 3940 Aug, [address] [id number] [place] [address] 65558- 6579 Jun, Generalized anxiety disorder 300.02 ; Major depression, recurrent 296.30 and Persistent 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 [address] [id number] [place] [address] 59159- 6549 Jun, [address] 02250- 6456 May, [address] 64837- 0369 May, Generalized anxiety disorder 300.02 and Depression, major, recurrent, in remission 296.35 [facility] [address], [place] [address]- 7119 May, [facility] [address], [place] [address]- 8469 May, [facility] [address], [place] [address]- 0125 May, [facility] [id number] [place] [address] 20275- 5766 May, [facility] [address] [place] [address] 47810- 4047 May, Chronic kidney disease 585.9 [facility] [address] [place] [address] 69923- 4381 Apr, Chronic kidney disease 585.9 [facility] [id number] [place] [address] 14382- 2103 Apr, [facility] [address] [place] [address] 46030- 3700 Apr, Arthropathy 716.90 ; Hyperlipidemia 272.4 ; Hypothyroidism 244.9 and GERD (gastroesophageal reflux disease) 530.81 [facility] [address], [place] [address]- 8010 Apr, Arthropathy 716.90 ; Hypothyroidism 244.9 ; Hyperlipidemia 272.4 and GERD (gastroesophageal reflux disease) 530.81 [facility] [address], [place] [address]- 6609 Mar, [facility] [address], [place] [address]- 8297 February, Depression, major, recurrent, in remission 296.35 and Generalized anxiety disorder 300.02 [facility] [address], [place] [address]- 1502 February, [facility] [address], [place] [address]- 6230 February, [facility] [place] [facility] [address] [id number] [place] [address]- 5017 Jan, [facility] [place] [facility] [address] [id number] [place] [address]- 1869 Jan, [facility] [place] [facility] [address] [id number] [place] [address]- 0573 Oct, [facility] [place] [facility] [address] [id number] [place] [address]- 0672 Oct, [facility] [place] [facility] [address] [id number] [place] [address]- 9064 Oct, [facility] [place] [facility] [address] [id number] [place] [address]- 9523 Oct, [facility] [place] [facility] [address] [id number] [place] [address]- 1565 Oct, [facility] [place] [facility] [address] [id number] [place] [address]- 2875 Oct, [facility] [place] [facility] [address] [id number] [place] [address]- 8263 Sep, [facility] [place] [facility] [address] [id number] [place] [address]- 5382 Sep, [facility] [place] [facility] [address] [id number], [place] [address]- 2404 Aug, [facility] [place] [facility] [address] [id number], [place] [address]- 8249 Aug, [facility] [place] [facility] [address] [id number] [place] [address]- 4622 Aug, [facility] [place] [facility] [address] [id number] [place] [address]- 5516 Aug, [facility] [place] [facility] [address] [id number] [place] [address]- 5762 Jul, [facility] [place] [facility] [address] [id number], [place] [address]- 5187 Jul, [facility] [place] [facility] [address] [id number] [place] [address]- 7235 Jul, [facility] [place] [facility] [address] [id number] [place] [address]- 7515 Jul, [facility] [place] [facility] [address] [id number] [place] [address]- 3053 29 Jun, 2014 [facility] [place] [facility] [address] [id number] [place] [address]- 9724 Jun, [facility] [place] [facility] [address] [id number] [place] [address]- 1497 Jun, [facility] [place] [facility] [address] [id number] [place] [address]- 7569 Jun, [facility] [place] [facility] [address] [id number] [place] [address]- 3538 Jun, [facility] [place] [facility] [address] [id number] [place] [address]- 5864 Jun, [facility] [place] [facility] [address] [id number] [place] [address]- 8112 Jun, [facility] [place] [facility] [address] [id number] [place] [address]- 6276 May, [facility] [place] [facility] [address] [id number] [place] [address]- 0317 May, [facility] [place] [facility] [address] [id number] [place] [address]- 5059 May, [facility] [place] [facility] [address] [id number] [place] [address]- 7149 May, [facility] [place] [facility] [address] [id number] [place] [address]- 8555 Apr, [facility] [place] [facility] [address] [id number] [place] [address]- 5366 Apr, [facility] [place] [facility] [address] [id number] [place] [address]- 0374 Apr, [facility] [place] [facility] [address] [id number] [place] [address]- 8922 Apr, [facility] [place] [facility] [address] [id number] [place] [address]- 3389 Apr, [facility] [place] [facility] [address] [id number] [place] [address]- 1843 Apr, [facility] [place] [facility] [address] [id number] [place] [address]- 6823 Apr, [facility] [place] [facility] [address] [id number] [place] [address]- 6532 Apr, [facility] [place] [facility] [address] [id number] [place] [address]- 6287 Mar, [facility] [place] [facility] [address] [id number] [place] [address]- 2463 Mar, [facility] [place] [facility] [address] [id number] [place] [address]- 5353 Mar, [facility] [place] [facility] [address] [id number] [place] [address]- 8966 Mar, [facility] [place] [facility] [address] [id number] [place] [address]- 1910 Mar, [facility] [place] [facility] [address] [id number] [place] [address]- 2805 Mar, [facility] [place] [facility] [address] [id number] [place] [address]- 8204 Mar, [facility] [place] [facility] [address] [id number] [place] [address]- 9685 Mar, [facility] [place] [facility] [address] [id number] [place] [address]- 6213 Dec, [facility] [place] [facility] [address] [id number] [place] [address]- 6537 Dec, [facility] [place] [facility] [address] [id number] [place] 1500 Dec, [facility] [place] [facility] [address] [id number] [place] [address]- 4080 Dec, [facility] [place] [facility] [address] [facility] [id number] [place] [address]- 6838 Dec, [facility] [place] [facility] [address] [id number] [place] [address]- 0752 Dec, [facility] [place] [facility] [address] [id number] [place] [address] Dec, [facility] [place] [facility] [address] [id number] [place] [address] Dec, [facility] [place] [facility] [address] [facility] [id number] [place] [address] Nov, [facility] [place] [facility] [address] [id number] [place] [address] Nov, [facility] [place] [facility] [address] [facility] [id number] [place] [address] Nov, [facility] [place] [facility] [address] [facility] [id number] [place] [address] Nov, [facility] [place] [facility] [address] [facility] [id number] [place] [address] Nov, [facility] [place] [facility] [address] [facility] [id number] [place] [address] Nov, [facility] [place] [facility] [address] [facility] [id number] [place] [address] Nov, [facility] [place] [facility] [address] [facility] [id number] [place] [address] Nov, [facility] [place] [facility] [address] [facility] [id number] [place] [address] Aug, [facility] [place] [facility] [address] [id number] [place] [address] Aug, [facility] [place] [facility] [address] [id number] [place] [address] Jul, [facility] [place] [facility] [address] [id number] [place] [address] Jul, [facility] [place] [facility] [address] [id number] [place] [address] Jul, [facility] [place] [facility] [address] [id number] [place] [address] Jun, [facility] [place] [facility] [address] [id number] [place] [address] 30 Jun, 2013 [facility] [place] [facility] [address] [id number] [place] [address] Jun, [facility] [place] [facility] [address] [id number] [place] [address] Jun, [facility] [place] [facility] [address] [id number] [place] [address] Jun, [facility] [place] [facility] [address] [id number] [place] [address] May, [facility] [place] [facility] [address] [id number] [place] [address] Apr, [facility] [place] [facility] [address] [id number] [place] [address] Apr, [facility] [place] [facility] [address] [id number] [place] [address] Apr, [facility] [place] [facility] [address] [id number] [place] [address] Mar, [facility] [place] [facility] [address] [id number] [place] [address] Mar, [facility] [place] [facility] [address] [id number] [place] [place] [address] February, [facility] [address] [id number] [place] [address] February, [facility] [place] [facility] [address] [id number] [place] [address] February, [facility] [address] [id number] [place] [address] February, [facility] [place] [facility] [address] [id number] [place] [address] Jan, [facility] [address] [id number] [place] [address] Jan, [facility] [place] [facility] [address] [id number] [place] [address] Jan, [facility] [place] [facility] [address] [id number] [place] [address] Jan, [facility] [place] [facility] [address] [id number] [place] [address] Dec, [facility] [place] [facility] [address] [id number] [place] [address] Dec, [facility] [place] [facility] [address] [id number] [place] [address] Dec, [facility] [place] [facility] [address] [id number] [place] [address] Nov, [facility] [place] [facility] [address] [id number] [place] [address] 15 Nov, 2012 [facility] [place] [facility] [address] [id number] [place] [address] Nov, [facility] [place] [facility] [address] [id number] [place] [address] Oct, [facility] [place] [facility] [address] [id number] [place] [address] Oct, [facility] [place] [facility] [address] [id number] [place] [address] Sep, [facility] [address] [id number] [place] [address] Sep, [facility] [place] [facility] [address] [id number] [place] [address] Sep, [facility] [address] [id number] [place] [address] Sep, [facility] [place] [facility] [address] [id number] [place] [address] Sep, [facility] [address] [id number] [place] [address] Aug, [facility] [address] [id number] [place] [address] Aug, [facility] [address] [id number] [place] [address] Aug, [facility] [address] [id number] [place] [address] Aug, [facility] [address] [id number] [place] [address] Aug, [facility] [address] [facility] [id number] [place] [address] Aug, [facility] [place] [facility] [address] [id number] [place] [address] Jun, [facility] [place] [facility] [address] [id number] [place] [address] 39[address] Jun, [facility] [place] [facility] [address] [id number] [place] [address] 3607 Jun, [facility] [place] [facility] [address] [id number] [place] [address]142 May, [facility] [place] [facility] [address] [id number] [place] [address] 27[address] May, [facility] [place] [facility] [address] [id number] [place] [address]446 May, [facility] [place] [facility] [address] [id number] [place] [address] May, [facility] [place] [facility] [address] [id number] [place] [address] Apr, [facility] [place] [facility] [address] [id number] [place] [address] 4666 Mar, [facility] [place] [facility] [address] [id number] [place] [address] 0466 Mar, [facility] [place] [facility] [address] [id number] [place] [address] 4586 Mar, [facility] [place] [facility] [address] [id number] [place] [address] 7926 February, [facility] [place] [facility] [address] [id number] [place] [address] 9976 February, [facility] [place] [facility] [address] [id number] [place] [address] 49[address] February, [facility] [place] [facility] [address] [id number] [place] [address] 45[address] February, [facility] [place] [facility] [address] [id number] [place] [address] 5766 Dec, [facility] [place] [facility] [address] [id number], [place] [address] Dec, [facility] [place] [facility] [address] [id number] [place] [address] 0866 Dec, [facility] [place] [facility] [address] [id number] [place] [address]- 6706 Dec, [facility] [place] [facility] [address] [id number] [place] [address]- 7616 Nov, [facility] [place] [facility] [address] [id number], [place] [address]27 10 Nov, 2011 [facility] [place] [facility] [address] [id number] [place] [address] 7314 Nov, [facility] [place] [facility] [address] [id number] [place] [address] Nov, [facility] [place] [facility] [address] [id number] [place] [address] 9806 Nov, [facility] [place] [facility] [address] [id number] [place] [address] 7107 Oct, [facility] [place] [facility] [address] [id number] [place] [address] Oct, [facility] [place] [facility] [address] [facility] [id number] [place] [address] 4651 Oct, [facility] [place] [facility] [address] [facility] [id number] [place] [address]- 1827 Aug, [facility] [place] [facility] [address] [facility] [id number] [place] [address] 6607 Aug, [facility] [place] [facility] [address] [facility] [id number] [place] [address] 6195 Jul, [facility] [place] [facility] [address] [facility] [id number] [place] [address]- 3945 Jul, [facility] [place] [facility] [address] [facility] [id number] [place] [address] 4439 Jul, [facility] [place] [facility] [address] [facility] [id number], [place] [address] Jul, [facility] [place] [facility] [address] [id number] [place] [address]- 2161 Jul, [facility] [place] [facility] [address] [facility] [id number] [place] [address]- 2748 Jul, [facility] [place] [facility] [address] [facility] [id number], [place] [address] Jul, [facility] [id number], [place] [address] Jul, [facility] [id number], [place] [address] May, [facility] [id number], [place] [address] February, [facility] [id number], [place] [address] Nov, [facility] [id number], [place] [address] Sep, [facility] [id number], [place] [address] Aug, [facility] [id number], [place] [address] 4[address] Oct, [facility] [id number], [place] [address] Jul, [facility] [id number], [place] [address] Jun, [facility] [id number], [place] [address]- 3048 Mar, [facility] [id number], [place] [address] Mar, [facility] [id number], [place] [address] 17 Nov, 2008 IMMUNIZATIONS No Known Immunizations SOCIAL HISTORY Never Assessed REASON FOR VISIT Refill request PLAN OF CARE VITAL SIGNS MEDICATIONS Medication Instructions Dosage Frequency Start Date End Date Duration Status Wellbutrin SR 150 mg Orally Twice a day 1 tablet 12h 30 days Active RESULTS No Results PROCEDURES [...] 2017 Hospitalization History surgeries Hospitalization History [facility]- irregular heart beat, shortness of breath Aug 2016 Hospitalization History post left hip surgery oct 2017
--- OUTSIDE RECORDS SUMMARY | 2019-01-24 07:30 | XMS REPORT ---
Author Author FRANCESCO PHILLIPS [facility] Address [address] [place] [address] Care Team Providers Care Hand Box Folder Name Role Phone FRANCESCO PHILLIPS Unavailable PROBLEMS Type Condition ICD9-CM Code DCC36-NC Code Onset Dates Condition Status SNOMED Code Problem Paroxysmal atrial fibrillation I48.0 Active 166668484 Problem Generalized anxiety disorder F41.1 Active 58603448 Problem Gastro-esophageal reflux disease without esophagitis K21.9 Active 798644989 Problem Chronic kidney disease (CKD) stage G1/A1, glomerular filtration rate ( GFR) equal to or greater than 90 mL/min/1.73 square meter and albuminuria creatinine ratio less than 30 mg/g N18.1 Active 908312969 Problem Arthritis M19.90 Active 5310852 Problem Carpal tunnel syndrome of left wrist G56.02 Active 93243166 Problem Chronic diastolic heart failure I50.32 Active 628638583 Problem 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 Active 271476139 Problem MDD (major depressive disorder), recurrent, in partial remission F33.41 Active 47665867 Problem Secondary hyperparathyroidism of renal origin N25.81 Active 56980062 Problem Acquired hypothyroidism E03.9 Active 847298117 ALLERGIES No Information ENCOUNTERS Encounter Location Date Diagnosis [facility] [place] [address] [address] Jul, [facility] [place] [address], [place] [address] Jul, [facility] [place] [address] [place] [address] 66937- 8070 Jun, Depression F32.9 [facility] [place] [id number], [place] [address] May, Arthritis M19.90 and Carpal tunnel syndrome of left wrist G56.02 [place] [address] [place] [address] 29273- 7816 May, [place] [address] 7[address]61- 4463 May, Generalized anxiety disorder F41.1 [place] [address] 60526- 4686 May, Chronic kidney disease, stage 1 N18.1 [place] [id number] [place] [address] 71522- 6491 May, Chronic kidney disease, stage 1 N18.1 and Chronic diastolic heart failure I50.32 [facility] [place] [id number] [place] [address] 89200 -4849 19 Mar, 2018 Pain, dental K08.[address] [address]- [address] February, Medicare annual wellness visit, initial Z00.00 ; MDD (major depressive disorder), recurrent, in partial remission F33.41 ; Atrial fibrillation, unspecified type I48.91 ; Chronic diastolic heart failure I50.32 ; Secondary hyperparathyroidism of renal origin N25.81 ; Acquired hypothyroidism E03.9 ; Anxiety F41.9 ; Chronic kidney disease, stage 1 N18.1 and Encounter for immunization Z23 [place] [id number] [place] [address] 29512- 8433 February, Closed fracture of one rib of right side, initial encounter S22.31XA ; Acute cystitis with hematuria N30.01 ; Right flank pain R10.9 and Rib pain on right side R07.81 [place] [id number] [place] [address] 55550- 5099 Jan, Acquired hypothyroidism E03.9 ; 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 ; Chronic kidney disease (CKD) stage G1/A1, glomerular filtration rate (GFR) equal to or greater than 90 mL/min/1.73 square meter and albuminuria creatinine ratio less than 30 mg/g N18.1 ; Paroxysmal atrial fibrillation I48.0 ; Chronic diastolic heart failure I50.32 and Secondary hyperparathyroidism of renal origin N25.81 [place] [id number] [place] [address] 61012- 3198 Jan, Arthritis M19.90 [facility] [place] [id number] [place] [address] 54190- 7552 Jan, Paroxysmal atrial fibrillation I48.0 [place] [id number] [place] [address] 38756- 7214 Jan, Paroxysmal atrial fibrillation I48.0 [place] [id number] [place] [address] 47486- 8916 Jan, [place] [id number] [place] [address] 91683- 3492 Jan, Generalized anxiety disorder F41.1 [place] [id number] [place] [address] 20297- 1881 Jan, Generalized anxiety disorder F41.1 and MDD (major depressive disorder), recurrent, in partial remission F33.41 [place] [id number] [place] [address] 77556- 0259 Dec, Arthritis M19.90 [place] [id number] [place] [address] 02336- 7426 Dec, [place] [id number] [place] [address] 47906- 5695 Nov, Arthritis M19.90 ; Chronic kidney disease (CKD) stage G1/A1 , glomerular filtration rate (GFR) equal to or greater than 90 mL/min/1.73 square meter and albuminuria creatinine ratio less than 30 mg/g N18.1 and Anxiety F41.9 [place] [id number] [place] [address] 64908- 8925 Nov, [place] [address] [place] [address] 75050- 2884 Nov, [place] [id number], [place] [address] 8358 Nov, [facility] [place] [id number] [place] [address] 70868- 1326 Nov, [facility] [place] [address] [place] [address] 52894- 8376 Nov, [facility] [place] [address] [place] [address] 70837- 0105 Oct, Generalized anxiety disorder F41.1 [facility] [place] [address] [place] [address] 35956- 5878 Sep, Atrial fibrillation, unspecified type I48.91 [facility] [place] [address] [place] [address] 08939- 5796 Sep, Generalized anxiety disorder F41.1 and MDD (major depressive disorder), recurrent, in partial remission F33.41 [facility] [place] [address] [place] [address] 36214- 9794 Sep, [facility] [place] [address] [place] [address] 33303- 7617 Aug, Generalized anxiety disorder F41.1 [facility] [place] [address], [place] [address]- 8166 Aug, [facility] [place] [address] [place] [address] 26388- 1361 Aug, Paroxysmal atrial fibrillation I48.0 and Gastro-esophageal reflux disease without esophagitis K21.9 [facility] [place] [address], [place] [address]- 5655 Jul, [facility] [place] [id number] [place] [address] 45336- 3586 Jul, Generalized anxiety disorder F41.1 [facility] [place] [address], [place] [address]- 4034 Jun, Generalized anxiety disorder F41.1 and MDD (major depressive disorder), recurrent, in partial remission F33.41 [facility] [place] [address], [place] [address]- 3437 May, Recurrent major depressive disorder, in partial remission F33.41 [facility] [place] [address] [place] [address] 90406- 1489 May, Anxiety F41.9 and Paroxysmal atrial fibrillation I48.0 [facility] [place] [id number] [place] [address] 71333- 8524 Apr, Generalized anxiety disorder F41.1 [facility] [place] [id number] [place] [address] 43214- 4031 Mar, [facility] [place] [id number] [place] [address] 61127- 7638 Mar, Generalized anxiety disorder F41.1 and MDD (major depressive disorder), recurrent, in partial remission F33.41 [facility] [place] [id number] [place] [address] 97816- 9668 February, Paroxysmal atrial fibrillation I48.0 and Anxiety F41.9 [facility] [place] [id number] [place] [address] 30326- 7127 February, MDD (major depressive disorder), recurrent, in partial remission F33.41 [facility] [place] [address], [place] [address]- 8137 Jan, [facility] [address] [place] [address] 17954 -7418 Jan, [facility] [place] [address], [place] [address]- 0002 Jan, [facility] [place] [id number] [place] [address] 45479- 5868 Jan, [facility] [place] [address] [place] [address] 32494- 5341 Dec, [facility] [place] [id number] [place] [address] 94133- 0769 Dec, Generalized anxiety disorder F41.1 [facility] [place] [id number] [place] [address] 53556- 0248 Dec, Generalized anxiety disorder F41.1 and MDD (major depressive disorder), recurrent, in partial remission F33.41 [facility] [place] [id number] [place] [address] 29527- 6759 Dec, [facility] [place] [id number] [place] [address] 01252- 6660 14 Dec, 2016 [facility] [place] [id number] [place] [address] 10465- 4638 Dec, [facility] [place] [id number] [place] [address] 25065- 4204 28 Nov, 2016 [facility] [place] [id number] [place] [address] 71114- 4309 Nov, Gastro-esophageal reflux disease without esophagitis K21.9 [facility] [place] [id number] [place] [address] 72079- 6488 Nov, Atrial fibrillation, unspecified type I48.91 and Anxiety F41.9 [facility] [place] [id number] [place] [address] 81727- 1877 Oct, [facility] [place] [id number] [place] [address] 09150- 0885 Oct, [facility] [place] [id number] [place] [address] 77689- 6647 Oct, Depression F32.9 and Atrial fibrillation, unspecified type I48.91 [facility] [place] [id number] [place] [address] 91817- 4859 Oct, [facility] [place] [id number] [place] [address] 25254- 4836 Sep, Depression F32.9 [facility] [place] [id number] [place] [address] 47902- 8445 Sep, Recurrent major depressive disorder, in partial remission F33.41 and Generalized anxiety disorder F41.1 [place] [id number] [place] [address] 17753- 4293 Sep, Paroxysmal atrial fibrillation I48.0 and Anxiety F41.9 [place] [address] [place] [address] 96396- 3240 Sep, [place] [id number] [place] [address] 99479- 3954 Sep, [place] [id number] [place] [address] 03874- 5496 Sep, Gastro-esophageal reflux disease without esophagitis K21.9 [place] [id number] [place] [address] 33198- 4485 Aug, [place] [id number] [place] [address] 01084- 5709 Aug, [place] [id number] [place] [address] 89767- 3919 Aug, Atrial fibrillation, unspecified type I48.91 [place] [id number] [place] [address] 11842- 0106 Jul, Major depressive disorder, recurrent, in partial remission F33.41 and Generalized anxiety disorder F41.1 [place] [address] [place] [address] 55162- 0945 Jul, [place] [id number] [place] [address] 30110- 5843 30 Jun, 2016 [place] [id number] [place] [address] 89795- 7473 15 Jun, 2016 Bronchitis J40 and Memory loss R41.3 [place] [address] [place] [address] 93560- 9670 14 Jun, 2016 Upper respiratory infection with cough and congestion J06.9 [place] [id number] [place] [address] 54755- 6814 Apr, [facility] [place] [address] [place] [address] 39638- 9177 Apr, Major depressive disorder, recurrent, unspecified F33.9 ; Anxiety F41.9 and Psychophysiological insomnia F51.04 [facility] [place] [id number] [place] [address] 01591- 7450 Mar, [facility] [place] [id number] [place] [address] 46802- 3392 Mar, [facility] [place] [id number] [place] [address] 08131- 4206 February, [facility] [place] [id number] [place] [address] 39362- 1621 Jan, Postural hypotension I95.1 [facility] [place] [id number] [place] [address] 05730- 9804 Jan, Recurrent major depressive disorder in remission F33.40 ; Generalized anxiety disorder F41.1 and Psychophysiological insomnia F51.04 [facility] [place] [id number] [place] [address] 80407- 1724 Dec, Generalized anxiety disorder F41.1 [facility] [address] [place] [address] 28737 -2502 Dec, Unspecified fall, initial encounter W19.XXXA [facility] [place] [id number] [place] [address] 13827- 5608 Nov, Depression F32.9 and Anxiety F41.9 [facility] [place] [id number] [place] [address] 10462- 2993 Oct, [facility] [place] [id number] [place] [address] 21704- 3259 Oct, [facility] [place] [address] [place] [address] 83260- 4317 Oct, Chronic kidney disease, stage 3 (moderate) N18.3 [place] [id number] [place] [address] 91614- 3601 Oct, Head contusion S00.93XA ; Cervical strain S16.1XXA and Arthritis M19.90 [place] [id number] [place] [address] 98269- 6758 Oct, Chronic kidney disease 585.9 [place] [address] 02353- 1171 Oct, Chronic kidney disease 585.9 [place] [address] 43178- 9312 Oct, [place] [address] 81469- 2842 Sep, [place] [address] 61252- 3546 Aug, Chronic kidney disease N18.9 [place] [address] 90079- 1396 Aug, Chronic kidney disease (CKD) stage G1/A1, glomerular filtration rate (GFR) equal to or greater than 90 mL/min/1.73 square meter and albuminuria creatinine ratio less than 30 mg/g N18.1 and GERD (gastroesophageal reflux disease) K21.9 [place] [id number] [place] [address] 11423- 7417 Aug, [place] [address] 17053- 7518 Jun, Generalized anxiety disorder 300.02 ; Major depression, recurrent 296.30 and Persistent 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 [place] [address] 45277- 0486 Jun, [place] [id number] [place] [address] 19982- 5029 May, [address] [place] [address]- 0579 May, Generalized anxiety disorder 300.02 and Depression, major, recurrent, in remission 296.35 [facility] [place] [address], [place] [address]- 4515 May, [facility] [place] [address], [place] [address]- 8890 May, [facility] [place] [id number] [place] [address] 57898- 3163 May, [facility] [place] [address] [place] [address] 57240- 4726 May, [facility] [place] [address] [place] [address] 73955- 2183 May, Chronic kidney disease 585.9 [facility] [place] [address] [place] [address] 07369- 1505 Apr, Chronic kidney disease 585.9 [facility] [place] [address], [place] [address]- 0770 Apr, [facility] [place] [address] [place] [address] 51882- 6153 Apr, Arthropathy 716.90 ; Hyperlipidemia 272.4 ; Hypothyroidism 244.9 and GERD (gastroesophageal reflux disease) 530.81 [facility] [place] [address], [place] [address]- 5530 Apr, Arthropathy 716.90 ; Hypothyroidism 244.9 ; Hyperlipidemia 272.4 and GERD (gastroesophageal reflux disease) 530.81 [facility] [place] [address], [place] [address]- 3604 Mar, [facility] [place] [address] [place] [address] 454821- 4366 February, Depression, major, recurrent, in remission 296.35 and Generalized anxiety disorder 300.02 [facility] [place] [address], [place] [address]- 0888 February, [facility] [place] [facility] [address] [id number] [place] [address]- 9781 February, [facility] [place] [facility] [address] [id number] [place] [address]- 6532 Jan, [facility] [place] [facility] [address] [id number] [place] [address]- 1887 Jan, [facility] [place] [facility] [address] [id number] [place] [address]- 4760 Oct, [facility] [place] [facility] [address] [id number] [place] [address]- 7574 Oct, [facility] [place] [facility] [address] [id number] [place] [address]- 1920 Oct, [facility] [place] [facility] [address] [id number] [place] [address]- 0561 Oct, [facility] [place] [facility] [address] [id number] [place] [address]- 3133 Oct, [facility] [place] [facility] [address] [id number] [place] [address]- 3876 Oct, [facility] [place] [facility] [address] [id number] [place] [address]- 7657 Sep, [facility] [place] [facility] [address] [id number] [place] [address]- 4090 Sep, [facility] [place] [facility] [address] [id number], [place] [address]- 7175 Aug, [facility] [place] [facility] [address] [id number] [place] [address]- 7397 Aug, [facility] [place] [facility] [address] [id number] [place] [address]- 5336 Aug, [facility] [place] [facility] [address] [id number], [place] [address]- 2835 Aug, [facility] [place] [facility] [address] [id number], [place] [address]- 7794 Jul, [facility] [place] [facility] [address] [id number] [place] [address]- 6324 Jul, [facility] [place] [facility] [address] [id number] [place] [address]- 5456 Jul, [facility] [place] [facility] [address] [id number] [place] [address]- 0263 Jul, [facility] [place] [facility] [address] [id number] [place] [address]- 7185 29 Jun, 2014 [facility] [place] [facility] [address] [id number] [place] [address]- 6914 Jun, [facility] [place] [facility] [address] [id number] [place] [address]- 2451 Jun, [facility] [place] [facility] [address] [id number] [place] [address]- 5962 Jun, [facility] [place] [facility] [address] [id number] [place] [address]- 6120 Jun, [facility] [place] [facility] [address] [id number] [place] [address] Jun, [facility] [place] [facility] [address] [id number] [place] [address] Jun, [facility] [place] [facility] [address] [id number] [place] [address] May, [facility] [place] [facility] [address] [id number] [place] [address] May, [facility] [place] [facility] [address] [id number] [place] [address] May, [facility] [place] [facility] [address] [id number] [place] [address] May, [facility] [place] [facility] [address] [id number] [place] [address] Apr, [facility] [place] [facility] [address] [id number] [place] [address] Apr, [facility] [place] [facility] [address] [id number] [place] [address] Apr, [facility] [place] [facility] [address] [id number] [facility] [address] Apr, [facility] [place] [facility] [address] [id number] [place] [address] Apr, [facility] [place] [facility] [address] [id number] [place] [address] Apr, [facility] [place] [facility] [address] [id number] [place] [address] Apr, [facility] [place] [facility] [address] [id number] [place] [address] Apr, [facility] [place] [facility] [address] [id number] [place] [address] Mar, [facility] [place] [facility] [address] [id number] [place] [address] Mar, [facility] [place] [facility] [address] [id number] [place] [address] Mar, [facility] [place] [facility] [address] [id number] [place] [address] Mar, [facility] [place] [facility] [address] [id number] [place] [address] Mar, [facility] [place] [facility] [address] [id number] [place] [address] Mar, [facility] [place] [facility] [address] [id number] [place] [address] Mar, [facility] [place] [facility] [address] [id number] [place] [address] Mar, [facility] [place] [facility] [address] [id number] [place] [address] Dec, [facility] [place] [facility] [address] [id number] [place] [address] Dec, [facility] [place] [facility] [address] [id number] [place] [address] Dec, [facility] [place] [facility] [address] [facility] [id number] [place] [address] Dec, [facility] [place] [facility] [address] [id number] [place] [address] Dec, [facility] [place] [facility] [address] [id number] [place] [address] Dec, [facility] [place] [facility] [address] [facility] [id number] [place] [address] 2613 Dec, [facility] [place] [facility] [address] [facility] [id number] [place] [address] Dec, [facility] [place] [facility] [address] [facility] [id number] [place] [address]703 Nov, [facility] [place] [facility] [address] [facility] [id number] [place] [address] Nov, [facility] [place] [facility] [address] [facility] [id number] [place] [address] Nov, [facility] [place] [facility] [address] [facility] [id number] [place] [address]- 7900 Nov, [facility] [place] [facility] [address] [facility] [id number] [place] [address]- 9773 Nov, [facility] [place] [facility] [address] [facility] [id number] [place] [address] 1932 Nov, [facility] [place] [facility] [address] [facility] [id number] [place] [address]- 269[address] Nov, [facility] [place] [facility] [address] [facility] [id number] [place] [address] 8458 Nov, [facility] [place] [facility] [address] [id number] [place] [address]- 4196 Aug, [facility] [place] [facility] [address] [id number] [place] [address]- [address] Aug, [facility] [place] [facility] [address] [id number] [place] [address]- [address] Jul, [facility] [place] [facility] [address] [id number] [place] [address]- [address] Jul, [facility] [place] [facility] [address] [id number] [place] [address]- 2935 Jul, [facility] [place] [facility] [address] [id number] [place] [address]- 6769 Jun, [facility] [place] [facility] [address] [id number] [place] [address]- 288[address] Jun, [facility] [place] [facility] [address] [id number] [place] [address]- [address]697 24 Jun, 2013 [facility] [place] [facility] [address] [id number] [place] [address]- 9469 Jun, [facility] [place] [facility] [address] [id number] [place] [address]- [address]60 Jun, [facility] [place] [facility] [address] [id number] [place] [address]- 8106 May, [facility] [place] [facility] [address] [id number] [place] [address]- 3049 Apr, [facility] [place] [facility] [address] [id number] [place] [address]- 7152 Apr, [facility] [place] [facility] [address] [id number] [place] [address]- 3[address] Apr, [facility] [place] [facility] [address] [id number] [place] [address]- [address] Mar, [facility] [place] [facility] [address] [id number] [place] [address] Mar, [facility] [address] [id number] [place] [address]- 7876 February, [facility] [address] [id number] [place] [address]- [address] February, [facility] [address] [id number] [place] [address]- 6005 February, [facility] [place] [facility] [address] [id number] [place] [address]- [address] February, [facility] [address] [id number] [place] [address]- 238[address] Jan, [facility] [place] [facility] [address] [id number] [place] [address]- 9167 Jan, [facility] [address] [id number] [place] [address]- 9853 Jan, [facility] [place] [facility] [address] [id number] [place] [address]- 3142 Jan, [facility] [place] [facility] [address] [id number] [place] [address]- 9133 Dec, [facility] [place] [facility] [address] [id number] [place] [address]- [address] Dec, [facility] [place] [facility] [address] [id number] [place] [address]- 2724 Dec, [facility] [place] [facility] [address] [id number], [place] [address] Nov, [facility] [place] [facility] [address] [id number] [place] [address]- [address]448 15 Nov, 2012 [facility] [place] [facility] [address] [id number] [place] [address]- [address]884 Nov, [facility] [place] [facility] [address] [id number] [place] [address]- 7299 Oct, [facility] [place] [facility] [address] [id number] [place] [address] Oct, [facility] [address] [id number] [place] [address]- [address] Sep, [facility] [address] [id number] [place] [address]- 3119 Sep, [facility] [address] [id number] [place] [address]- 2913 Sep, [facility] [address] [id number] [place] [address]- 3503 Sep, [facility] [address] [id number] [place] [address]- 8714 Sep, [facility] [address] [id number] [place] [address]- 3322 Aug, [facility] [address] [id number] [place] [address]- 2744 Aug, [facility] [address] [id number] [place] [address]- 9600 Aug, [facility] [address] [id number] [place] [address]- 6532 Aug, [facility] [address] [facility] [id number] [place] [address]- 4756 Aug, [facility] [place] [facility] [address] [id number] [place] [address]- 3650 Aug, [facility] [address] [id number] [place] [address]- 7499 Jun, [facility] [place] [facility] [address] [id number] [place] [address]- 3960 Jun, [facility] [place] [facility] [address] [id number] [place] [address]- 5261 Jun, [facility] [address] [id number] [place] [address]- 5186 May, [facility] [place] [facility] [address] [id number] [place] [address]- 7145 May, [facility] [place] [facility] [address] [id number] [place] [address]- 0616 May, [facility] [place] [facility] [address] [id number] [place] [address]- 4206 May, [facility] [place] [facility] [address] [id number] [place] [address]- 4306 Apr, [facility] [place] [facility] [address] [id number] [place] [address]- 5638 Mar, [facility] [place] [facility] [address] [id number] [place] [address]- 6276 Mar, [facility] [place] [facility] [address] [id number] [place] [address]- 3596 Mar, [facility] [place] [facility] [address] [id number] [place] [address]- 2103 February, [facility] [place] [facility] [address] [id number] [place] [address]- 0726 February, [facility] [place] [facility] [address] [id number] [place] [address]- 4206 February, [facility] [place] [facility] [address] [id number] [place] [address]- 3566 February, [facility] [place] [facility] [address] [id number] [place] [address]- 4200 Dec, [facility] [place] [facility] [address] [id number] [place] [address]- 5348 Dec, [facility] [place] [facility] [address] [id number] [place] [address]- 6506 Dec, [facility] [place] [facility] [address] [id number] [place] [address]- 3086 Dec, [facility] [place] [facility] [address] [id number] [place] [address]- 7970 Nov, [facility] [place] [facility] [address] [id number] [place] [address]- 8057 Nov, [facility] [place] [facility] [address] [id number] [place] [address] Nov, [facility] [place] [facility] [address] [id number] [place] [address]- 4136 Nov, [facility] [place] [facility] [address] [id number] [place] [address]- 5239 Nov, [facility] [place] [facility] [address] [id number] [place] [address]- 7090 Oct, [facility] [place] [facility] [address] [id number] [place] [address]- 7027 Oct, [facility] [place] [facility] [address] [facility] [id number] [place] [address]- 5034 Oct, [facility] [place] [facility] [address] [id number] [place] [address]- 8321 Aug, [facility] [place] [facility] [address] [facility] [id number] [place] [address]- 8903 Aug, [facility] [place] [facility] [address] [facility] [id number] [place] [address]- 0155 Jul, [facility] [place] [facility] [address] [id number] [place] [address]- 5825 Jul, [facility] [place] [facility] [address] [id number] [place] [address]- 6885 Jul, [facility] [place] [facility] [address] [id number] [place] [address]- 6930 Jul, [facility] [place] [facility] [address] [id number] [place] [address]- 4169 Jul, [facility] [place] [facility] [address] [id number], [place] [address]- [address]874 Jul, [facility] [place] [address] [facility] [id number], [place] [address] Jul, [facility] [place] [id number] [address] Jul, [facility] [place] [address] [facility] [id number], [place] [address]- [address]856 May, [facility] [place] [id number], [place] [address] 99[address] February, [facility] [place] [address] [facility] [id number], [place] [address]- 2218 Nov, [facility] [place] [id number], [place] [address]- 8840 Sep, [facility] [place] [id number], [place] [address]- 2356 Aug, [facility] [place] [id number], [place] [address]- 9439 Oct, [facility] [place] [id number], [place] [address]- 7001 Jul, [facility] [place] [id number], [place] [address]- 9661 Jun, [facility] [place] [address] [id number], [place] [address]- 8718 Mar, [facility] [place] [id number], [place] [address]- 6184 Mar, [facility] [place] [address] [id number], [place] [address]- [address]16 Nov, IMMUNIZATIONS No Known Immunizations SOCIAL HISTORY Never [...]
--- OUTSIDE RECORDS SUMMARY | 2019-01-24 07:31 | XMS REPORT ---
Author Author FRANCESCO PHILLIPS [facility] Address [address] [place] [address] Care Team Providers Care Assistant Surveyor Name Role Phone FRANCESCO PHILLIPS Unavailable PROBLEMS ALLERGIES ENCOUNTERS IMMUNIZATIONS No Known Immunizations SOCIAL HISTORY No smoking Hx information available REASON FOR VISIT PLAN OF CARE VITAL SIGNS MEDICATIONS RESULTS No Results PROCEDURES INSTRUCTIONS MEDICATIONS ADMINISTERED No Known Medications MEDICAL (GENERAL) HISTORY
--- OUTSIDE RECORDS SUMMARY | 2019-01-24 07:31 | XMS REPORT ---
Author Author FRANCESCO PHILLIPS Organization [facility] [place] Address [address] [place] [address] Care Team Providers Care [place] Dock Name Role Phone FRANCESCO PHILLIPS Unavailable PROBLEMS Type Condition ICD9-CM Code TDV49-BX Code Onset Dates Condition Status SNOMED Code Problem Paroxysmal atrial fibrillation I48.0 Active 178550343 Problem Generalized anxiety disorder F41.1 Active 62150916 Problem Gastro-esophageal reflux disease without esophagitis K21.9 Active 869426066 Problem Chronic kidney disease (CKD) stage G1/A1, glomerular filtration rate ( GFR) equal to or greater than 90 mL/min/1.73 square meter and albuminuria creatinine ratio less than 30 mg/g N18.1 Active 369308556 Problem Arthritis M19.90 Active 4781599 Problem Carpal tunnel syndrome of left wrist G56.02 Active 04352239 Problem Chronic diastolic heart failure I50.32 Active 915971488 Problem 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 Active 094604435 Problem MDD (major depressive disorder), recurrent, in partial remission F33.41 Active 24076252 Problem Secondary hyperparathyroidism of renal origin N25.81 Active 04956179 Problem Acquired hypothyroidism E03.9 Active [id number] ALLERGIES No Information ENCOUNTERS Encounter Location Date Diagnosis [facility] [place] [id number], [place] [address] Jun, Depression F32.9 [facility] [place] [id number], [place] [address] May, Arthritis M19.90 and Carpal tunnel syndrome of left wrist G56.02 [facility] [place] [id number], [place] [address] May, [facility] [place] [id number], [place] [address] May, Generalized anxiety disorder F41.1 [facility] [place] [id number] [place] [address]3927- 3912 May, Chronic kidney disease, stage 1 N18.1 [place] [id number] [place] [address] 59324- 7811 May, Chronic kidney disease, stage 1 N18.1 and Chronic diastolic heart failure I50.32 [facility] [address] [address] Mar, Pain, dental K08.89 [place] [address] [address] February, Medicare annual wellness visit, initial Z00.00 ; MDD (major depressive disorder), recurrent, in partial remission F33.41 ; Atrial fibrillation, unspecified type I48.91 ; Chronic diastolic heart failure I50.32 ; Secondary hyperparathyroidism of renal origin N25.81 ; Acquired hypothyroidism E03.9 ; Anxiety F41.9 ; Chronic kidney disease, stage 1 N18.1 and Encounter for immunization Z23 [place] [address] [address] February, Closed fracture of one rib of right side, initial encounter S22.31XA ; Acute cystitis with hematuria N30.01 ; Right flank pain R10.9 and Rib pain on right side R07.81 [place] [id number] [place] [address] 83772- 9403 Jan, Acquired hypothyroidism E03.9 ; 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 ; Chronic kidney disease (CKD) stage G1/A1, glomerular filtration rate (GFR) equal to or greater than 90 mL/min/1.73 square meter and albuminuria creatinine ratio less than 30 mg/g N18.1 ; Paroxysmal atrial fibrillation I48.0 ; Chronic diastolic heart failure I50.32 and Secondary hyperparathyroidism of renal origin N25.81 [place] [id number] [place] [address] 07042- 0748 Jan, Arthritis M19.90 [place] [address], [place] [address] Jan, Paroxysmal atrial fibrillation I48.0 [place] [id number] [place] [address] 26425- 5223 Jan, Paroxysmal atrial fibrillation I48.0 [facility] [place] [id number] [place] [address] 05420- 9214 Jan, [facility] [place] [id number] [place] [address] 04759- 1728 Jan, Generalized anxiety disorder F41.1 [place] [id number] [place] [address] 05856- 5539 Jan, Generalized anxiety disorder F41.1 and MDD (major depressive disorder), recurrent, in partial remission F33.41 [place] [id number] [place] [address] 15209- 6014 Dec, Arthritis M19.90 [place] [id number] [place] [address] 93982- 6090 Dec, [place] [id number] [place] [address] 53262- 2524 Nov, Arthritis M19.90 ; Chronic kidney disease (CKD) stage G1/A1 , glomerular filtration rate (GFR) equal to or greater than 90 mL/min/1.73 square meter and albuminuria creatinine ratio less than 30 mg/g N18.1 and Anxiety F41.9 [place] [id number] [place] [address] 45093- 2105 Nov, [place] [id number] [place] [address] 09225- 2957 Nov, [place] [id number] [place] [address] 60949- 5291 Nov, [place] [id number] [place] [address] 18602- 5097 Nov, [place] [id number], [place] [address] 8[address] Nov, [facility] [place] [id number] [place] [address] 55119- 4786 Oct, Generalized anxiety disorder F41.1 [facility] [place] [id number] [place] [address] 50522- 9586 Sep, Atrial fibrillation, unspecified type I48.91 [facility] [place] [id number] [place] [address] 93372- 7586 Sep, Generalized anxiety disorder F41.1 and MDD (major depressive disorder), recurrent, in partial remission F33.41 [place] [id number] [place] [address] 59917- 8636 Sep, [place] [id number] [place] [address] 27205- 6235 Aug, Generalized anxiety disorder F41.1 [facility] [place] [id number] [place] [address] 18080- 8732 Aug, [facility] [place] [id number] [place] [address] 50199- 7133 Aug, Paroxysmal atrial fibrillation I48.0 and Gastro-esophageal reflux disease without esophagitis K21.9 [facility] [place] [address], [place] [address]- [address] Jul, [place] [id number] [place] [address] 94068- 7341 Jul, Generalized anxiety disorder F41.1 [facility] [place] [address], [place] [address] 0393 Jun, Generalized anxiety disorder F41.1 and MDD (major depressive disorder), recurrent, in partial remission F33.41 [facility] [place] [address], [place] [address] May, Recurrent major depressive disorder, in partial remission F33.41 [facility] [place] [address], [place] [address] 0147 May, Anxiety F41.9 and Paroxysmal atrial fibrillation I48.0 [facility] [place] [id number] [place] [address] 44450- 2636 Apr, Generalized anxiety disorder F41.1 [facility] [place] [address], [place] [address] 88[address] Mar, [facility] [place] [id number] [place] [address] 24159- 9300 Mar, Generalized anxiety disorder F41.1 and MDD (major depressive disorder), recurrent, in partial remission F33.41 [facility] [place] [id number] [place] [address] 43901- 2210 February, Paroxysmal atrial fibrillation I48.0 and Anxiety F41.9 [facility] [place] [id number] [place] [address] 11026- 0390 February, MDD (major depressive disorder), recurrent, in partial remission F33.41 [facility] [place] [address], [place] [address]- 8800 Jan, [facility] [id number] [place] [address] 65998 -9321 Jan, [facility] [place] [address], [place] [address]- 6545 Jan, [facility] [place] [id number] [place] [address] 07825- 9401 Jan, [facility] [place] [address], [place] [address]- 3993 Dec, [facility] [place] [id number] [place] [address] 39123- 6793 Dec, Generalized anxiety disorder F41.1 [facility] [place] [address], [place] [address]- 3866 Dec, Generalized anxiety disorder F41.1 and MDD (major depressive disorder), recurrent, in partial remission F33.41 [facility] [place] [address], [place] [address]- 7265 15 Dec, 2016 [facility] [place] [id number] [place] [address] 83201- 8616 14 Dec, 2016 [facility] [place] [id number] [place] [address] 32571- 8346 Dec, [facility] [place] [id number] [place] [address] 38133- 8247 Nov, [facility] [place] [id number] [place] [address] 63838- 8897 Nov, Gastro-esophageal reflux disease without esophagitis K21.9 [facility] [place] [id number] [place] [address] 38251- 3237 10 Nov, 2016 Atrial fibrillation, unspecified type I48.91 and Anxiety F41.9 [facility] [place] [id number] [place] [address] 42135- 7786 Oct, [facility] [place] [id number] [place] [address] 28122- 2974 Oct, [facility] [place] [id number] [place] [address] 56015- 4896 Oct, Depression F32.9 and Atrial fibrillation, unspecified type I48.91 [facility] [place] [id number] [place] [address] 15780- 2677 Oct, [facility] [place] [address], [place] [address]- 4471 Sep, Depression F32.9 [facility] [place] [id number] [place] [address] 68083- 6796 Sep, Recurrent major depressive disorder, in partial remission F33.41 and Generalized anxiety disorder F41.1 [facility] [place] [id number] [place] [address] 17413- 2280 Sep, Paroxysmal atrial fibrillation I48.0 and Anxiety F41.9 [place] [id number] [place] [address] 18142- 4932 Sep, [place] [id number] [place] [address] 98248- 7694 Sep, [place] [id number] [place] [address] 62855- 5237 Sep, Gastro-esophageal reflux disease without esophagitis K21.9 [place] [id number] [place] [address] 01943- 8288 Aug, [place] [address] 95562- 3850 Aug, [place] [id number] [place] [address] 11610- 9727 Aug, Atrial fibrillation, unspecified type I48.91 [address] [id number] [place] [address] 33468- 9447 Jul, Major depressive disorder, recurrent, in partial remission F33.41 and Generalized anxiety disorder F41.1 [place] [id number] [place] [address] 34808- 9194 Jul, [place] [id number] [place] [address] 37624- 4985 30 Jun, 2016 [place] [id number] [place] [address] 35169- 8309 15 Jun, 2016 Bronchitis J40 and Memory loss R41.3 [place] [id number] [place] [address] 25944- 8400 14 Jun, 2016 Upper respiratory infection with cough and congestion J06.9 [place] [id number] [place] [address] 29910- 1952 Apr, [place] [id number] [place] [address] 12075- 2717 Apr, Major depressive disorder, recurrent, unspecified F33.9 ; Anxiety F41.9 and Psychophysiological insomnia F51.04 [facility] [place] [id number] [place] [address] 83109- 4481 Mar, [facility] [place] [id number] [place] [address] 62307- 5764 Mar, [facility] [place] [id number] [place] [address] 49033- 7048 February, [place] [id number] [place] [address] 55309- 0531 Jan, Postural hypotension I95.1 [place] [address] 03289- 1103 Jan, Recurrent major depressive disorder in remission F33.40 ; Generalized anxiety disorder F41.1 and Psychophysiological insomnia F51.04 [place] [id number] [place] [address] 89344- 0025 Dec, Generalized anxiety disorder F41.1 [facility] [id number] [place] [address] 99594 -8594 Dec, Unspecified fall, initial encounter W19.XXXA [place] [id number] [place] [address] 81208- 3712 Nov, Depression F32.9 and Anxiety F41.9 [place] [id number] [place] [address] 84904- 1884 Oct, [place] [id number] [place] [address] 78114- 1830 Oct, [place] [id number] [place] [address] 37195- 1275 Oct, Chronic kidney disease, stage 3 (moderate) N18.3 [place] [id number] [place] [address] 49474- 4074 Oct, Head contusion S00.93XA ; Cervical strain S16.1XXA and Arthritis M19.90 [facility] [place] [address], [place] [address]- 8812 Oct, Chronic kidney disease 585.9 [facility] [place] [id number] [place] [address] 78462- 6136 Oct, Chronic kidney disease 585.9 [facility] [place] [id number] [place] [address] 66122- 3888 Oct, [facility] [place] [id number] [place] [address] 64505- 0403 Sep, [facility] [place] [id number] [place] [address] 61797- 1478 Aug, Chronic kidney disease N18.9 [place] [id number] [place] [address] 42372- 9644 Aug, Chronic kidney disease (CKD) stage G1/A1, glomerular filtration rate (GFR) equal to or greater than 90 mL/min/1.73 square meter and albuminuria creatinine ratio less than 30 mg/g N18.1 and GERD (gastroesophageal reflux disease) K21.9 [place] [id number] [place] [address] 89789- 5595 Aug, [place] [id number] [place] [address] 92415- 7247 Jun, Generalized anxiety disorder 300.02 ; Major depression, recurrent 296.30 and Persistent 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 [place] [id number] [place] [address] 98160- 0912 Jun, [facility] [place] [id number] [place] [address] 40594- 5857 May, [place] [id number] [place] [address] 02999- 5749 May, Generalized anxiety disorder 300.02 and Depression, major, recurrent, in remission 296.35 [place] [id number] [place] [address] 84497- 5453 May, [facility] [place] [address], [place] [address]- 0098 May, [facility] [place] [id number] [place] [address] 15146- 9981 May, [facility] [place] [address], [place] [address]- 5389 May, [facility] [place] [id number] [place] [address] 32488- 0507 May, Chronic kidney disease 585.9 [facility] [place] [id number] [place] [address] 097440- 4408 Apr, Chronic kidney disease 585.9 [facility] [place] [id number] [place] [address] 30458- 6344 Apr, [facility] [place] [id number] [place] [address] 33332- 6342 Apr, Arthropathy 716.90 ; Hyperlipidemia 272.4 ; Hypothyroidism 244.9 and GERD (gastroesophageal reflux disease) 530.81 [facility] [place] [id number] [place] [address] 46039- 1142 Apr, Arthropathy 716.90 ; Hypothyroidism 244.9 ; Hyperlipidemia 272.4 and GERD (gastroesophageal reflux disease) 530.81 [facility] [place] [address] [address]- 9708 Mar, [facility] [place] [id number] [place] [address] 323002- 2733 February, Depression, major, recurrent, in remission 296.35 and Generalized anxiety disorder 300.02 [facility] [place] [id number] [place] [address] 806502- 9081 February, [facility] [place] [id number] [place] [address] 28941- 4150 February, [facility] [place] [id number] [place] [address] 463470- 5093 Jan, [facility] [place] [facility] [address] [id number] [place] [address]- 4680 Jan, [facility] [place] [facility] [address] [id number] [place] [address]- 5640 Oct, [facility] [place] [facility] [address] [id number] [place] [address]- 5894 Oct, [facility] [place] [facility] [address] [id number] [place] [address]- 9139 Oct, [facility] [place] [facility] [address] [id number] [place] [address]- 3159 Oct, [facility] [place] [facility] [address] [id number] [place] [address]- 2833 Oct, [facility] [place] [facility] [address] [id number] [place] [address]- 1898 Oct, [facility] [place] [facility] [address] [id number] [place] [address]- 6963 Sep, [facility] [place] [facility] [address] [id number] [place] [address]- 9149 Sep, [facility] [place] [facility] [address] [id number], [place] [address]- 8409 Aug, [facility] [place] [facility] [address] [id number], [place] [address]- 7560 Aug, [facility] [place] [facility] [address] [id number], [place] [address]- 6224 Aug, [facility] [place] [facility] [address] [id number] [place] [address]- 2086 Aug, [facility] [place] [facility] [address] [id number], [place] [address]- 1336 Jul, [facility] [place] [facility] [address] [id number], [place] [address]- 6575 Jul, [facility] [place] [facility] [address] [id number], [place] [address]- 4484 Jul, [facility] [place] [facility] [address] [id number] [place] [address] Jul, [facility] [place] [facility] [address] [id number] [place] [address] Jun, [facility] [place] [facility] [address] [id number] [place] [address] Jun, [facility] [place] [facility] [address] [id number] [place] [address] Jun, [facility] [place] [facility] [address] [id number] [place] [address] Jun, [facility] [place] [facility] [address] [id number] [place] [address] Jun, [facility] [place] [facility] [address] [id number] [place] [address] Jun, [facility] [place] [facility] [address] [id number] [place] [address] Jun, [facility] [place] [facility] [address] [id number] [place] [address] May, [facility] [place] [facility] [address] [id number] [place] [address] May, [facility] [place] [facility] [address] [id number] [place] [address] May, [facility] [place] [facility] [address] [id number] [place] [address] May, [facility] [place] [facility] [address] [id number] [place] [address] Apr, [facility] [place] [facility] [address] [id number] [place] [address] Apr, [facility] [place] [facility] [address] [id number] [place] [address] Apr, [facility] [place] [facility] [address] [id number] [place] [address] Apr, [facility] [place] [facility] [address] [id number] [place] [address] Apr, [facility] [place] [facility] [address] [id number] [address] Apr, [facility] [place] [facility] [address] [id number] [place] [address] Apr, [facility] [place] [facility] [address] [id number] [place] [address] Apr, [facility] [place] [facility] [address] [id number] [place] [address] Mar, [facility] [place] [facility] [address] [id number] [place] [address] Mar, [facility] [place] [facility] [address] [id number] [place] [address] Mar, [facility] [place] [facility] [address] [id number] [place] [address] Mar, [facility] [place] [facility] [address] [id number] [place] [address] Mar, [facility] [place] [facility] [address] [id number] [place] [address] Mar, [facility] [place] [facility] [address] [id number] [place] [address] Mar, [facility] [place] [facility] [address] [id number] [place] [address] Mar, [facility] [place] [facility] [address] [id number] [place] [address] Dec, [facility] [place] [facility] [address] [id number] [place] [address] Dec, [facility] [place] [facility] [address] [id number] [place] [address] Dec, [facility] [place] [facility] [address] [id number] [place] [address] Dec, [facility] [place] [facility] [address] [address] [id number] [place] [address] Dec, [facility] [place] [facility] [address] [facility] [id number] [place] [address] Dec, [facility] [place] [facility] [address] [id number] [place] [address] Dec, [facility] [place] [facility] [address] [id number] [place] [address] Dec, [facility] [place] [facility] [address] [id number] [place] [address] Nov, [facility] [place] [facility] [address] [id number] [place] [address] Nov, [facility] [place] [facility] [address] [id number] [place] [address] Nov, [facility] [place] [facility] [address] [id number] [place] [address] Nov, [facility] [place] [facility] [address] [facility] [id number] [place] [address] Nov, [facility] [place] [facility] [address] [id number] [place] [address] Nov, [facility] [place] [facility] [address] [id number] [place] [address] Nov, [facility] [place] [facility] [address] [id number] [place] [address] 1403 Nov, [facility] [place] [facility] [address] [facility] [id number] [place] [address] 3926 Aug, [facility] [place] [facility] [address] [facility] [id number] [place] [address] Aug, [facility] [place] [facility] [address] [id number] [place] [address] Jul, [facility] [place] [facility] [address] [id number] [place] [address] Jul, [facility] [place] [facility] [address] [id number] [place] [address] Jul, [facility] [place] [facility] [address] [id number] [place] [address] Jun, [facility] [place] [facility] [address] [id number] [place] [address]43 30 Jun, 2013 [facility] [place] [facility] [address] [id number] [place] [address]137 Jun, [facility] [place] [facility] [address] [id number] [place] [address]107 Jun, [facility] [place] [facility] [address] [id number] [place] [address] 1466 Jun, [facility] [place] [facility] [address] [id number] [place] [address] May, [facility] [place] [facility] [address] [id number] [place] [address] 1461 Apr, [facility] [place] [facility] [address] [id number] [place] [address] Apr, [facility] [place] [facility] [address] [id number] [place] [address] Apr, [facility] [place] [facility] [address] [id number] [place] [address] 0243 Mar, [facility] [place] [facility] [address] [id number] [place] [address] Mar, [facility] [place] [facility] [address] [id number] [place] [address] February, [facility] [place] [facility] [address] [id number] [place] [address] February, [facility] [address] [id number] [place] [address] February, [facility] [address] [id number] [place] [address] February, [facility] [address] [id number] [place] [address] Jan, [facility] [address] [id number] [place] [address] 1044 Jan, [facility] [address] [id number] [place] [address] 9248 Jan, [facility] [address] [id number] [place] [address] 04 Jan, 2013 [facility] [address] [id number] [place] [address]70 Dec, [facility] [place] [facility] [address] [id number] [place] [address] 0187 Dec, [facility] [address] [id number] [place] [address]- [address]83 Dec, [facility] [place] [facility] [address] [id number] [place] [address] 75[address] Nov, [facility] [address] [id number] [place] [address] 6957 Nov, [facility] [place] [facility] [address] [id number], [place] [address] Nov, [facility] [place] [facility] [address] [id number] [place] [address] 6713 Oct, [facility] [place] [facility] [address] [id number] [place] [address] Oct, [facility] [place] [facility] [address] [id number] [place] [address]26 Sep, [facility] [place] [facility] [address] [id number] [place] [address]- 6608 Sep, [facility] [address] [id number] [place] [address]- 67[address] Sep, [facility] [address] [id number] [place] [address]- [address]36 Sep, [facility] [address] [id number] [place] [address] 9952 Sep, [facility] [address] [id number] [place] [address]- 9420 Aug, [facility] [address] [id number] [place] [address] 3556 Aug, [facility] [address] [id number] [place] [address] 5[address] Aug, [facility] [address] [id number] [place] [address] 6487 Aug, [facility] [address] [id number] [place] [address]- 6002 Aug, [facility] [address] [id number] [place] [address] 3663 Aug, [facility] [address] [facility] [id number] [place] [address] 8878 Jun, [facility] [place] [facility] [address] [id number] [place] [address] 2726 Jun, [facility] [place] [facility] [address] [id number] [place] [address]- 1061 Jun, [facility] [place] [facility] [address] [id number] [place] [address]- 0657 May, [facility] [place] [facility] [address] [id number] [place] [address]- 6104 May, [facility] [place] [facility] [address] [id number] [place] [address]- 0284 May, [facility] [place] [facility] [address] [id number] [place] [address]- 0726 May, [facility] [place] [facility] [address] [id number] [place] [address]- 7306 Apr, [facility] [place] [facility] [address] [id number] [place] [address]- 3826 Mar, [facility] [place] [facility] [address] [id number] [place] [address]- 5276 Mar, [facility] [place] [facility] [address] [id number] [place] [address]- 7426 Mar, [facility] [place] [facility] [address] [id number] [place] [address]- 3126 February, [facility] [place] [facility] [address] [id number] [place] [address]- 5156 February, [facility] [place] [facility] [address] [id number] [place] [address]- 0066 February, [facility] [place] [facility] [address] [id number] [place] [address]- 5436 February, [facility] [place] [facility] [address] [id number] [place] [address]- 9956 Dec, [facility] [place] [facility] [address] [id number] [place] [address]- 3926 Dec, [facility] [place] [facility] [address] [id number] [place] [address]- 5516 Dec, [facility] [place] [facility] [address] [id number] [place] [address]- 3206 Dec, [facility] [place] [facility] [address] [id number] [place] [address]- 8036 Nov, [facility] [place] [facility] [address] [id number] [place] [address]- 8696 Nov, [facility] [place] [facility] [address] [id number] [place] [address]- 1792 Nov, [facility] [place] [facility] [address] [id number] [place] [address]- 5993 Nov, [facility] [place] [facility] [address] [id number] [place] [address]- 8176 Nov, [facility] [place] [facility] [address] [id number] [place] [address]- 4989 Oct, [facility] [place] [facility] [address] [id number] [place] [address]- 1944 Oct, [facility] [place] [facility] [address] [id number] [place] [address] Oct, [facility] [place] [facility] [address] [id number] [place] [address]- 1604 Aug, [facility] [place] [facility] [address] [id number] [place] [address]- 5920 Aug, [facility] [place] [facility] [address] [id number] [place] [address]- 0654 Jul, [facility] [place] [facility] [address] [id number] [place] [address]- 0081 24 Jul, 2011 [facility] [place] [facility] [address] [facility] [id number] [place] [address]- 8120 Jul, [facility] [place] [facility] [address] [id number] [place] [address]- 7656 Jul, [facility] [place] [facility] [address] [id number], [place] [address]- [address] 18 Jul, 2011 [facility] [place] [facility] [address] [id number] [place] [address]- 3956 Jul, [facility] [place] [facility] [address] [id number] [place] [address]- 1326 Jul, [facility] [place] [facility] [address] [id number], [place] [address]609 Jul, [facility] [place] [address] [facility] [id number], [place] [address] May, [facility] [place] [address] [id number], [place] [address] 39[address] February, [facility] [place] [address] [facility] [id number], [place] [address]- 3[address] Nov, [facility] [place] [id number], [place] [address]85 Sep, [facility] [place] [address] [id number], [place] [address] Aug, [facility] [place] [id number], [place] [address]- 7530 Oct, [facility] [place] [id number], [place] [address]- 3170 Jul, [facility] [place] [id number], [place] [address]- 6831 Jun, [facility] [place] [id number], [place] [address]- 2164 Mar, [facility] [place] [address] [id number], [place] [address]- 9736 Mar, [facility] [place] [address] [id number], [place] [address]- 9792 17 Nov, 2008 IMMUNIZATIONS No Known Immunizations SOCIAL HISTORY Never Assessed REASON FOR VISIT Refill request PLAN OF CARE VITAL SIGNS MEDICATIONS Medication Instructions Dosage Frequency Start Date End Date Duration Status Trazodone HCl 100 mg Orally Once a day 1 tablet at bedtime as needed 24h May, 30 days Active RESULTS No Results PROCEDURES [...] Nov 2017 Hospitalization History surgeries [facility] heart beat, shortness of breath Aug 2016 Hospitalization History post left hip surgery oct 2017
--- OUTSIDE RECORDS SUMMARY | 2019-01-24 07:32 | XMS REPORT ---
Author Author FRANCESCO PHILLIPS Organization [facility] Address [address] [place] [address] Care Team Providers Care Shopping Investigator Name Role Phone FRANCESCO PHILLIPS Unavailable PROBLEMS Type Condition ICD9-CM Code SQP92-VU Code Onset Dates Condition Status SNOMED Code Problem Paroxysmal atrial fibrillation I48.0 Active 737830288 Problem Generalized anxiety disorder F41.1 Active 31398275 Problem Gastro-esophageal reflux disease without esophagitis K21.9 Active 624058417 Problem Chronic kidney disease (CKD) stage G1/A1, glomerular filtration rate ( GFR) equal to or greater than 90 mL/min/1.73 square meter and albuminuria creatinine ratio less than 30 mg/g N18.1 Active 633364404 Problem Arthritis M19.90 Active 0514889 Problem Carpal tunnel syndrome of left wrist G56.02 Active 08089068 Problem Chronic diastolic heart failure I50.32 Active 483246854 Problem 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 Active 096000990 Problem MDD (major depressive disorder), recurrent, in partial remission F33.41 Active 53129468 Problem Secondary hyperparathyroidism of renal origin N25.81 Active 04289915 Problem Acquired hypothyroidism E03.9 Active 849768735 ALLERGIES No Information ENCOUNTERS Encounter Location Date Diagnosis [facility] [address] [facility] [id number] [address] Jun, Depression F32.9 [facility] [address] [facility] [id number] [address] May, Arthritis M19.90 ; Depression F32.9 ; Carpal tunnel syndrome of left wrist G56.02 ; Gastro-esophageal reflux disease without esophagitis K21.9 ; Generalized anxiety disorder F41.1 ; Paroxysmal atrial fibrillation I48.0 and Chronic kidney disease (CKD) stage G1/A1, glomerular filtration rate (GFR) equal to or greater than 90 mL/min/1.73 square meter and albuminuria creatinine ratio less than 30 mg/g N18.1 [place] [id number] [place] [address] 20667- 3495 May, [place] [address] [place] [id number] [place] [address] 63971- 6294 May, Generalized anxiety disorder F41.1 [place] [address] [place] [id number] [place] [address] 44307- 9700 May, Chronic kidney disease, stage 1 N18.1 [place] [address] [place] [id number] [place] [address] 04749- 2686 May, Chronic kidney disease, stage 1 N18.1 and Chronic diastolic heart failure I50.32 [facility] [id number] [place] [address] 51053 -3458 Mar, Pain, dental K08.89 [place] [id number] [place] [address] 39565- 5512 February, Medicare annual wellness visit, initial Z00.00 ; MDD (major depressive disorder), recurrent, in partial remission F33.41 ; Atrial fibrillation, unspecified type I48.91 ; Chronic diastolic heart failure I50.32 ; Secondary hyperparathyroidism of renal origin N25.81 ; Acquired hypothyroidism E03.9 ; Anxiety F41.9 ; Chronic kidney disease, stage 1 N18.1 and Encounter for immunization Z23 [place] [id number] [place] [address] 99562- 5139 February, Closed fracture of one rib of right side, initial encounter S22.31XA ; Acute cystitis with hematuria N30.01 ; Right flank pain R10.9 and Rib pain on right side R07.81 [place] [address] [place] [id number] [place] [address] 15148- 4618 Jan, Acquired hypothyroidism E03.9 ; 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 ; Chronic kidney disease (CKD) stage G1/A1, glomerular filtration rate (GFR) equal to or greater than 90 mL/min/1.73 square meter and albuminuria creatinine ratio less than 30 mg/g N18.1 ; Paroxysmal atrial fibrillation I48.0 ; Chronic diastolic heart failure I50.32 and Secondary hyperparathyroidism of renal origin N25.81 [place] [address] 96431- 6794 Jan, Arthritis M19.90 [place] [address] 33119- 7211 Jan, Paroxysmal atrial fibrillation I48.0 [place] [address] 54067- 7013 Jan, Paroxysmal atrial fibrillation I48.0 [place] [address] 83636- 7850 Jan, [place] [address] 90936- 4164 Jan, Generalized anxiety disorder F41.1 [place] [address] 85096- 0899 Jan, Generalized anxiety disorder F41.1 and MDD (major depressive disorder), recurrent, in partial remission F33.41 [place] [address] 39899- 3923 Dec, Arthritis M19.90 [place] [address] [place] [id number] [place] [address] 63081- 7747 Dec, [place] [address] 55876- 9540 Nov, Arthritis M19.90 ; Chronic kidney disease (CKD) stage G1/A1 , glomerular filtration rate (GFR) equal to or greater than 90 mL/min/1.73 square meter and albuminuria creatinine ratio less than 30 mg/g N18.1 and Anxiety F41.9 [place] [address] [place] [id number] [place] [address] 74672- 8639 Nov, [place] [address] 28625- 8617 Nov, [facility] [id number] [place] [address] 98468- 1525 Nov, [facility] [id number] [place] [address] 38757- 6425 Nov, [facility] [id number] [place] [address] 88465- 1430 Nov, [facility] [id number] [place] [address] 95756- 3023 Oct, Generalized anxiety disorder F41.1 [facility] [id number] [place] [address] 34782- 9175 Sep, Atrial fibrillation, unspecified type I48.91 [facility] [id number] [place] [address] 65510- 8184 Sep, Generalized anxiety disorder F41.1 and MDD (major depressive disorder), recurrent, in partial remission F33.41 [facility] [id number] [place] [address] 17077- 0832 Sep, [facility] [address] [id number] [place] [address] 24967- 5881 Aug, Generalized anxiety disorder F41.1 [facility] [id number] [place] [address] 21973- 8900 Aug, [facility] [id number] [place] [address] 51525- 9061 Aug, Paroxysmal atrial fibrillation I48.0 and Gastro-esophageal reflux disease without esophagitis K21.9 [facility] [id number] [place] [address] 37357- 5938 Jul, [facility] [address] [address] [id number] [place] [address] 58079- 8845 Jul, Generalized anxiety disorder F41.1 [facility] [id number] [place] [address] 29634- 5276 Jun, Generalized anxiety disorder F41.1 and MDD (major depressive disorder), recurrent, in partial remission F33.41 [facility] [id number] [place] [address] 20597- 7480 May, Recurrent major depressive disorder, in partial remission F33.41 [facility] [address] [place] [address] 0254 May, Anxiety F41.9 and Paroxysmal atrial fibrillation I48.0 [facility] [address] [id number] [place] [address] 84426- 2914 Apr, Generalized anxiety disorder F41.1 [facility] [address] [id number] [place] [address] 76188- 3574 Mar, [facility] [address] [id number] [place] [address] 74544- 0499 Mar, Generalized anxiety disorder F41.1 and MDD (major depressive disorder), recurrent, in partial remission F33.41 [facility] [id number] [place] [address] 82316- 0695 February, Paroxysmal atrial fibrillation I48.0 and Anxiety F41.9 [facility] [address] [address] [id number] [place] [address] 67524- 9193 February, MDD (major depressive disorder), recurrent, in partial remission F33.41 [facility] [address] [address] 9800 Jan, [facility] [address] [address] Jan, [facility] [address] [id number] [place] [address] 51344- 6391 Jan, [facility] [address] [place] [id number] [place] [address]- 0581 Jan, [facility] [address] [address]- 7537 Dec, [facility] [address] [address]- 5636 Dec, Generalized anxiety disorder F41.1 [facility] [id number] [place] [address] 50587- 6308 Dec, Generalized anxiety disorder F41.1 and MDD (major depressive disorder), recurrent, in partial remission F33.41 [facility] [address] [id number] [place] [address] 37543- 2398 Dec, [facility] [address] [id number] [place] [address] 63098- 9120 14 Dec, 2016 [facility] [address] [address] [id number] [place] [address] 43338- 8710 07 Dec, 2016 [facility] [address] [address] [id number] [place] [address] 76170- 4027 28 Nov, 2016 [facility] [address] [id number] [place] [address] 52394- 0307 Nov, Gastro-esophageal reflux disease without esophagitis K21.9 [facility] [id number] [place] [address] 53840- 8552 10 Nov, 2016 Atrial fibrillation, unspecified type I48.91 and Anxiety F41.9 [facility] [address] [address]- 7680 Oct, [facility] [address] [place] [id number] [place] [address] 74638- 4728 Oct, [facility] [id number] [place] [address] 66760- 2018 Oct, Depression F32.9 and Atrial fibrillation, unspecified type I48.91 [facility] [id number] [place] [address] 34171- 5711 Oct, [facility] [address] [address]- 3546 Sep, Depression F32.9 [place] [address] [place] [id number] [place] [address] 06710- 7398 Sep, Recurrent major depressive disorder, in partial remission F33.41 and Generalized anxiety disorder F41.1 [place] [address] [place] [id number] [place] [address] 82307- 6428 Sep, Paroxysmal atrial fibrillation I48.0 and Anxiety F41.9 [place] [address] [place] [id number] [place] [address] 00665- 5915 Sep, [place] [address] [place] [id number] [place] [address] 53807- 5902 Sep, [place] [address] [place] [id number] [place] [address] 01954- 9899 Sep, Gastro-esophageal reflux disease without esophagitis K21.9 [place] [address] [place] [id number] [place] [address] 88626- 3468 Aug, [place] [address] [place] [id number] [place] [address] 13543- 0127 Aug, [place] [address] [place] [id number] [place] [address] 19814- 4614 Aug, Atrial fibrillation, unspecified type I48.91 [place] [address] [place] [id number] [place] [address] 85353- 1013 Jul, Major depressive disorder, recurrent, in partial remission F33.41 and Generalized anxiety disorder F41.1 [place] [id number] [place] [address] 17778- 1418 Jul, [place] [address] [place] [id number] [place] [address] 80706- 4099 30 Jun, 2016 [place] [address] [place] [id number] [place] [address] 54089- 3139 15 Jun, 2016 Bronchitis J40 and Memory loss R41.3 [place] [id number] [place] [address] 45678- 4766 14 Sep, 2016 Upper respiratory infection with cough and congestion J06.9 [facility] [address] [id number] [place] [address] 58670- 8116 Apr, [facility] [address] [place] [id number] [place] [address] 34649- 5764 Apr, Major depressive disorder, recurrent, unspecified F33.9 ; Anxiety F41.9 and Psychophysiological insomnia F51.04 [facility] [address] [place] [id number] [place] [address] 93300- 4236 Mar, [facility] [address] [place] [id number] [place] [address] 99506- 9773 Mar, [facility] [address] [place] [id number] [place] [address] 66813- 7625 February, [place] [address] [place] [id number] [place] [address] 97885- 0018 Jan, Postural hypotension I95.1 [facility] [address] [place] [id number] [place] [address] 44206- 7067 Jan, Recurrent major depressive disorder in remission F33.40 ; Generalized anxiety disorder F41.1 and Psychophysiological insomnia F51.04 [place] [address] [place] [id number] [place] [address] 95927- 7892 Dec, Generalized anxiety disorder F41.1 [facility] [id number] [place] [address] 04794 -8100 Dec, Unspecified fall, initial encounter W19.XXXA [facility] [address] [place] [id number] [place] [address] 80980- 5954 Nov, Depression F32.9 and Anxiety F41.9 [facility] [address] [place] [id number] [place] [address] 26745- 9456 Oct, [facility] [address] [id number] [place] [address] 05201- 7065 Oct, [facility] [address] [id number] [place] [address] 30002- 6793 Oct, Chronic kidney disease, stage 3 (moderate) N18.3 [place] [address] [id number] [place] [address] 42949- 5215 Oct, Head contusion S00.93XA ; Cervical strain S16.1XXA and Arthritis M19.90 [place] [address] [place] [id number] [place] [address] 47491- 7587 Oct, Chronic kidney disease 585.9 [place] [address] 29873- 5256 Oct, Chronic kidney disease 585.9 [place] [address] 82655- 5173 Oct, [place] [address] [place] [id number] [place] [address] 97048- 7760 Sep, [place] [address] [place] [id number] [place] [address] 36584- 4187 Aug, Chronic kidney disease N18.9 [place] [id number] [place] [address] 20626- 2352 Aug, Chronic kidney disease (CKD) stage G1/A1, glomerular filtration rate (GFR) equal to or greater than 90 mL/min/1.73 square meter and albuminuria creatinine ratio less than 30 mg/g N18.1 and GERD (gastroesophageal reflux disease) K21.9 [place] [address] [id number] [place] [address] 84833- 1839 Aug, [place] [address] [place] [id number] [place] [address] 13288- 0583 Jun, Generalized anxiety disorder 300.02 ; Major depression, recurrent 296.30 and Persistent 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 [place] [address] [place] [id number] [place] [address] 94131- 2207 Jun, [place] [address] 14226- 0235 May, [facility] [address] [place] [id number] [address]- 0909 May, Generalized anxiety disorder 300.02 and Depression, major, recurrent, in remission 296.35 [facility] [address], [place] [address]- 7719 May, [facility] [address] [address]- 8662 May, [facility] [id number] [place] [address] 57247- 5475 May, [facility] [id number] [place] [address] 76114- 4651 May, [facility] [address] [address]- 4487 May, Chronic kidney disease 585.9 [facility] [address] [id number] [place] [address] 02120- 8148 Apr, Chronic kidney disease 585.9 [facility] [address] [address]- 4241 Apr, [facility] [address] [address]- 2436 Apr, Arthropathy 716.90 ; Hyperlipidemia 272.4 ; Hypothyroidism 244.9 and GERD (gastroesophageal reflux disease) 530.81 [facility] [address] [address]- 5296 Apr, Arthropathy 716.90 ; Hypothyroidism 244.9 ; Hyperlipidemia 272.4 and GERD (gastroesophageal reflux disease) 530.81 [facility] [address] [address]- 4792 Mar, [facility] [address] [address]- 8325 February, Depression, major, recurrent, in remission 296.35 and Generalized anxiety disorder 300.02 [facility] [address] [id number] [place] [address]- 1354 February, [facility] [address] [id number] [place] [address]- 3677 February, [facility] [address] [id number] [place] [address]- 9665 Jan, [facility] [address] [id number] [place] [address]- 6840 Jan, [facility] [address] [id number] [place] [address]- 4634 Oct, [facility] [address] [id number] [place] [address]- 9714 Oct, [facility] [address] [id number] [place] [address]- 9847 Oct, [facility] [address] [id number] [place] [address]- 4170 Oct, [facility] [address] [id number] [place] [address]- 9292 Oct, [facility] [address] [id number] [place] [address]- 1033 Oct, [facility] [address] [id number] [place] [address]- 0112 Sep, [facility] [address] [id number] [place] [address]- 8961 Sep, [facility] [address] [id number] [place] [address]- 0521 Aug, [facility] [place] [facility] [address] [id number] [place] [address]- 6122 Aug, [facility] [place] [facility] [address] [id number] [place] [address]- 5563 Aug, [facility] [address] [id number] [place] [address]- 6372 Aug, [facility] [place] [facility] [address] [id number] [place] [address]- 0885 Jul, [facility] [place] [facility] [address] [id number] [place] [address]- 5440 Jul, [facility] [place] [facility] [address] [id number] [place] [address]- 6847 Jul, [facility] [place] [facility] [address] [id number] [place] [address]- 8097 Jul, [facility] [place] [facility] [address] [id number] [place] [address]- 3445 29 Jun, 2014 [facility] [place] [facility] [address] [id number] [place] [address]- 4574 Jun, [facility] [place] [facility] [address] [id number] [place] [address]- 3395 Jun, [facility] [place] [facility] [address] [id number] [place] [address]- 5507 Jun, [facility] [place] [facility] [address] [id number] [place] [address]- 9949 Jun, [facility] [place] [facility] [address] [id number] [place] [address]- 8942 Jun, [facility] [place] [facility] [address] [id number] [place] [address]- 1967 Jun, [facility] [place] [facility] [address] [id number] [place] [address]- 1969 May, [facility] [place] [facility] [address] [id number] [place] [address]- 8791 May, [facility] [place] [facility] [address] [id number] [place] [address]- 9769 May, [facility] [place] [facility] [address] [id number] [place] [address]- 4318 May, [facility] [place] [facility] [address] [id number] [place] [address]- 4981 Apr, [facility] [place] [facility] [address] [id number] [place] [address]- 0269 Apr, [facility] [place] [facility] [address] [id number] [place] [address]- 0542 Apr, [facility] [place] [facility] [address] [id number] [place] [address]- 5279 Apr, [facility] [place] [facility] [address] [id number] [place] [address]- 0055 Apr, [facility] [place] [facility] [address] [id number] [place] [address]- 7545 Apr, [facility] [place] [facility] [address] [id number] [place] [address]- 1701 Apr, [facility] [place] [facility] [address] [id number] [place] [address]- 7455 Apr, [facility] [place] [facility] [address] [id number] [place] [address]- 4928 Mar, [facility] [place] [facility] [address] [id number] [place] [address]- 3753 Mar, [facility] [place] [facility] [address] [id number] [place] [address]- 0735 Mar, [facility] [place] [facility] [address] [id number] [place] [address]- 0166 Mar, [facility] [place] [facility] [address] [id number] [place] [address]- 2507 Mar, [facility] [place] [facility] [address] [id number] [place] [address]- 3067 Mar, [facility] [place] [facility] [address] [id number] [place] [address]- 6989 Mar, [facility] [place] [facility] [address] [id number] [place] [address]- 7891 Mar, [facility] [place] [facility] [address] [id number] [place] [address]- 3066 31 Dec, 2013 [facility] [place] [facility] [address] [id number] [place] [address]141 Dec, [facility] [place] [facility] [address] [id number] [place] [id number] [address] Dec, [facility] [place] [facility] [address] [id number] [place] [address] Dec, [facility] [place] [facility] [address] [id number] [place] [address] Dec, [facility] [place] [facility] [address] [id number] [place] [address] Dec, [facility] [place] [facility] [address] [facility] [id number] [place] [address] Dec, [facility] [place] [facility] [address] [id number] [place] [address] Dec, [facility] [place] [facility] [address] [id number] [place] [address] Nov, [facility] [place] [facility] [address] [id number] [place] [address] Nov, [facility] [place] [facility] [address] [facility] [id number] [place] [address] Nov, [facility] [place] [facility] [address] [id number] [place] [address] Nov, [facility] [place] [facility] [address] [facility] [id number] [place] [address] Nov, [facility] [place] [facility] [address] [id number] [place] [address] Nov, [facility] [place] [facility] [address] [facility] [id number] [place] [address] 03 Nov, 2013 [facility] [place] [facility] [address] [facility] [id number] [address] Nov, [facility] [place] [facility] [address] [id number] [place] [address] Aug, [facility] [place] [facility] [address] [id number] [place] [address] Aug, [facility] [place] [facility] [address] [id number] [place] [address] Jul, [facility] [place] [facility] [address] [id number] [place] [address] Jul, [facility] [place] [facility] [address] [id number] [place] [address] Jul, [facility] [place] [facility] [address] [id number] [place] [address] Jun, [facility] [place] [facility] [address] [address] [id number] [place] [address] Jun, [facility] [place] [facility] [address] [id number] [place] [address] Jun, [facility] [place] [facility] [address] [id number] [place] [address] Jun, [facility] [place] [facility] [address] [id number] [place] [address] Jun, [facility] [place] [facility] [address] [id number] [address] May, [facility] [place] [facility] [address] [id number] [place] [address] Apr, [facility] [place] [facility] [address] [id number] [place] [address] Apr, [facility] [place] [facility] [address] [id number] [place] [address] Apr, [facility] [place] [facility] [address] [id number] [place] [address] 1984 Mar, [facility] [place] [facility] [address] [id number] [place] [address] Mar, [facility] [address] [id number] [place] [address] February, [facility] [address] [id number] [place] [address] February, [facility] [address] [id number] [place] [address] February, [facility] [address] [id number] [place] [address] February, [facility] [address] [id number] [place] [address] Jan, [facility] [address] [id number] [place] [address] Jan, [facility] [address] [id number] [place] [address] Jan, [facility] [address] [id number] [place] [address] 04 Jan, 2013 [facility] [address] [id number] [place] [address] Dec, [facility] [address] [id number] [place] [address] 13 Dec, 2012 [facility] [address] [id number] [place] [address] Dec, [facility] [address] [id number] [place] [address] Nov, [facility] [place] [facility] [address] [id number] [place] [address] 15 Nov, 2012 [facility] [place] [facility] [address] [id number] [place] [address] Nov, [facility] [place] [facility] [address] [id number] [place] [address] Oct, [facility] [place] [facility] [address] [id number] [place] [address]698 Oct, [facility] [place] [facility] [address] [id number] [place] [address] Sep, [facility] [place] [facility] [address] [id number] [place] [address] Sep, [facility] [place] [facility] [address] [id number] [place] [address] Sep, [facility] [place] [facility] [address] [id number] [place] [address] Sep, [facility] [place] [facility] [address] [id number] [place] [address] 94[address] Sep, [facility] [place] [facility] [address] [id number] [place] [address] Aug, [facility] [place] [facility] [address] [id number], [place] [address] Aug, [facility] [place] [facility] [address] [id number] [place] [address] Aug, [facility] [place] [facility] [address] [id number], [place] [address] Aug, [facility] [place] [facility] [address] [id number], [place] [address] Aug, [facility] [place] [facility] [address] [id number], [place] [address] Aug, [facility] [place] [facility] [address] [id number] [place] [address] Jun, [facility] [place] [facility] [address] [id number], [place] [address] Jun, [facility] [place] [facility] [address] [id number], [place] [address] Jun, [facility] [place] [facility] [address] [id number] [place] [address] May, [facility] [place] [facility] [address] [id number] [place] [address] May, [facility] [place] [facility] [address] [id number] [place] [address] May, [facility] [place] [facility] [address] [id number] [place] [address] May, [facility] [place] [facility] [address] [id number] [place] [address] Apr, [facility] [place] [facility] [address] [id number] [place] [address] Mar, [facility] [place] [facility] [address] [id number] [place] [address] Mar, [facility] [address] [id number] [place] [address] Mar, [facility] [address] [id number] [place] [address] February, [facility] [place] [facility] [address] [id number] [place] [address] February, [facility] [address] [id number] [place] [address] February, [facility] [place] [facility] [address] [id number] [place] [address] February, [facility] [place] [facility] [address] [id number] [place] [address] 2846 Dec, [facility] [place] [facility] [address] [id number] [place] [address]- [address]487 Dec, [facility] [place] [facility] [address] [id number] [place] [address] 2546 Dec, [facility] [place] [facility] [address] [id number] [place] [address] 8978 Dec, [facility] [place] [facility] [address] [id number] [place] [address]- 7517 Nov, [facility] [place] [facility] [address] [id number] [place] [address]- 9544 Nov, [facility] [place] [facility] [address] [id number] [place] [address] Nov, [facility] [place] [facility] [address] [id number] [place] [address] 2426 Nov, [facility] [place] [facility] [address] [id number] [place] [address]40 Nov, [facility] [place] [facility] [address] [id number] [place] [address] 1163 Oct, [facility] [place] [facility] [address] [id number] [place] [address] 8690 Oct, [facility] [place] [facility] [address] [id number] [place] [address]173 Oct, [facility] [place] [facility] [address] [id number] [place] [address]- 2280 Aug, [facility] [place] [facility] [address] [id number] [place] [address] 3612 Aug, [facility] [place] [facility] [address] [id number] [place] [address]- 64[address] Jul, [facility] [place] [facility] [address] [id number], [place] [address] Jul, [facility] [place] [facility] [address] [id number] [place] [address]- [address] Jul, [facility] [place] [facility] [address] [id number] [place] [address]- 4382 Jul, [facility] [place] [facility] [address] [id number] [place] [address]- 7386 Jul, [facility] [place] [facility] [id number], [place] [address] 17 Jul, 2011 [facility] [id number], [place] [address] Jul, [facility] [id number], [place] [address] Jul, [facility] [id number], [place] [address] May, [facility] [id number], [place] [address] February, [facility] [id number] [place] [address]- [address] Nov, [facility] [id number] [place] [address]- [address] Sep, [facility] [id number] [place] [address]- 6266 Aug, [facility] [id number], [place] [address]- 64[address] Oct, [facility] [id number] [place] [address]- 8845 Jul, [facility] [id number], [place] [address]- 12[address] Jun, [facility] [id number] [address] Mar, [facility] [id number] [address] Mar, [facility] [id number], [place] [address] Nov, IMMUNIZATIONS No Known Immunizations SOCIAL HISTORY Never Assessed REASON FOR VISIT medication refill PLAN OF CARE VITAL SIGNS MEDICATIONS Medication Instructions Dosage Frequency Start Date End Date Duration Status Pravastatin Sodium 40 mg Orally Once a day 1 tablet 24h May, 30 day(s) Active RESULTS No Results PROCEDURES No Known [...]
--- OUTSIDE RECORDS SUMMARY | 2019-01-24 07:33 | XMS REPORT ---
Author Author FRANCESCO PHILLIPS Organization [facility] Address [address] [place] [address] Care Team Providers Care Electrician Ship Name Role Phone FRANCESCO PHILLIPS Unavailable PROBLEMS Type Condition ICD9-CM Code [id number] Code Onset Dates Condition Status SNOMED Code Problem Paroxysmal atrial fibrillation I48.0 Active 857373444 Problem Generalized anxiety disorder F41.1 Active 36171533 Problem Gastro-esophageal reflux disease without esophagitis K21.9 Active 944756045 Problem Chronic kidney disease (CKD) stage G1/A1, glomerular filtration rate ( GFR) equal to or greater than 90 mL/min/1.73 square meter and albuminuria creatinine ratio less than 30 mg/g N18.1 Active 201358620 Problem Arthritis M19.90 Active 0561929 Problem Carpal tunnel syndrome of left wrist G56.02 Active 57590186 Problem Chronic diastolic heart failure I50.32 Active 911993068 Problem 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 Active 212210332 Problem MDD (major depressive disorder), recurrent, in partial remission F33.41 Active 70428861 Problem Secondary hyperparathyroidism of renal origin N25.81 Active 18045652 Problem Acquired hypothyroidism E03.9 Active 801448361 ALLERGIES No Information ENCOUNTERS Encounter Location Date Diagnosis [facility] [address] [facility] [id number] [address] Jun, Depression F32.9 [facility] [address] [facility] [id number], [place] [address] May, Arthritis M19.90 ; Depression F32.9 ; Carpal tunnel syndrome of left wrist G56.02 ; Gastro-esophageal reflux disease without esophagitis K21.9 ; Generalized anxiety disorder F41.1 ; Paroxysmal atrial fibrillation I48.0 and Chronic kidney disease (CKD) stage G1/A1, glomerular filtration rate (GFR) equal to or greater than 90 mL/min/1.73 square meter and albuminuria creatinine ratio less than 30 mg/g N18.1 [place] [address] [place] [address] 51936- 9065 May, [place] [address] [place] [id number] [place] [address] 18034- 7798 May, Generalized anxiety disorder F41.1 [place] [address] [place] [id number] [place] [address] 71411- 5736 May, Chronic kidney disease, stage 1 N18.1 [place] [address] [place] [id number] [place] [address] 66750- 3670 May, Chronic kidney disease, stage 1 N18.1 and Chronic diastolic heart failure I50.32 [facility] [address] [place] [id number] [place] [address] 01979 -5060 Mar, Pain, dental K08.89 [place] [id number] [place] [address] 46895- 8168 February, Medicare annual wellness visit, initial Z00.00 ; MDD (major depressive disorder), recurrent, in partial remission F33.41 ; Atrial fibrillation, unspecified type I48.91 ; Chronic diastolic heart failure I50.32 ; Secondary hyperparathyroidism of renal origin N25.81 ; Acquired hypothyroidism E03.9 ; Anxiety F41.9 ; Chronic kidney disease, stage 1 N18.1 and Encounter for immunization Z23 [place] [id number] [place] [address] 70727- 0750 February, Closed fracture of one rib of right side, initial encounter S22.31XA ; Acute cystitis with hematuria N30.01 ; Right flank pain R10.9 and Rib pain on right side R07.81 [place] [address] [place] [id number] [place] [address] 29796- 9923 Jan, Acquired hypothyroidism E03.9 ; 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 ; Chronic kidney disease (CKD) stage G1/A1, glomerular filtration rate (GFR) equal to or greater than 90 mL/min/1.73 square meter and albuminuria creatinine ratio less than 30 mg/g N18.1 ; Paroxysmal atrial fibrillation I48.0 ; Chronic diastolic heart failure I50.32 and Secondary hyperparathyroidism of renal origin N25.81 [place] [address] 51143- 2230 Jan, Arthritis M19.90 [place] [address] 99972- 6022 Jan, Paroxysmal atrial fibrillation I48.0 [place] [address] 80871- 3665 Jan, Paroxysmal atrial fibrillation I48.0 [place] [address] 93477- 2060 Jan, [place] [address] 41922- 8556 Jan, Generalized anxiety disorder F41.1 [place] [address] 32321- 2010 Jan, Generalized anxiety disorder F41.1 and MDD (major depressive disorder), recurrent, in partial remission F33.41 [place] [address] 44546- 4420 Dec, Arthritis M19.90 [place] [address] [place] [id number] [place] [address] 94194- 3886 Dec, [place] [address] 88927- 2892 Nov, Arthritis M19.90 ; Chronic kidney disease (CKD) stage G1/A1 , glomerular filtration rate (GFR) equal to or greater than 90 mL/min/1.73 square meter and albuminuria creatinine ratio less than 30 mg/g N18.1 and Anxiety F41.9 [place] [address] [place] [id number] [place] [address] 21248- 8437 Nov, [place] [address] 10524- 9994 Nov, [facility] [address] [place] [address] 57807- 0118 Nov, [facility] [address] [place] [id number] [place] [address] 43731- 1990 Nov, [facility] [address] [place] [id number] [place] [address] 25763- 3946 Nov, [facility] [address] [place] [id number] [place] [address] 31335- 9322 Oct, Generalized anxiety disorder F41.1 [facility] [address] [place] [id number] [place] [address] 75376- 4812 Sep, Atrial fibrillation, unspecified type I48.91 [facility] [address] [place] [id number] [place] [address] 08856- 8477 Sep, Generalized anxiety disorder F41.1 and MDD (major depressive disorder), recurrent, in partial remission F33.41 [facility] [address] [place] [id number] [place] [address] 21127- 8584 Sep, [facility] [address] [place] [id number] [place] [address] 00844- 9628 Aug, Generalized anxiety disorder F41.1 [facility] [address] [place] [id number] [place] [address] 12681- 3422 Aug, [facility] [address] [place] [id number] [place] [address] 85092- 7032 Aug, Paroxysmal atrial fibrillation I48.0 and Gastro-esophageal reflux disease without esophagitis K21.9 [facility] [address] [place] [id number] [place] [address] 49994- 5653 Jul, [facility] [address] [place] [id number] [place] [address] 13681- 7218 Jul, Generalized anxiety disorder F41.1 [facility] [address] [place] [id number] [place] [address] 16202- 3869 Jun, Generalized anxiety disorder F41.1 and MDD (major depressive disorder), recurrent, in partial remission F33.41 [facility] [address] [place] [address] 90212- 2593 May, Recurrent major depressive disorder, in partial remission F33.41 [facility] [address] [place] [address] May, Anxiety F41.9 and Paroxysmal atrial fibrillation I48.0 [facility] [address] [place] [id number] [place] [address] 53258- 2742 Apr, Generalized anxiety disorder F41.1 [facility] [address] [place] [id number] [place] [address] 91573- 1691 Mar, [facility] [address] [place] [id number] [place] [address] 02180- 5833 Mar, Generalized anxiety disorder F41.1 and MDD (major depressive disorder), recurrent, in partial remission F33.41 [facility] [address] [place] [address] 43642- 9495 February, Paroxysmal atrial fibrillation I48.0 and Anxiety F41.9 [facility] [address] [place] [id number] [place] [address] 32807- 4639 February, MDD (major depressive disorder), recurrent, in partial remission F33.41 [facility] [address] [address] Jan, [facility] [address] [address] Jan, [facility] [address] [place] [id number] [place] [address] 39930- 6597 Jan, [facility] [address] [place] [id number] [place] [address]- 3961 Jan, [facility] [address] [address]- 9714 Dec, [facility] [address] [address]- 6307 Dec, Generalized anxiety disorder F41.1 [facility] [address] [place] [id number] [place] [address] 82974- 0002 Dec, Generalized anxiety disorder F41.1 and MDD (major depressive disorder), recurrent, in partial remission F33.41 [facility] [address] [place] [id number] [place] [address] 93618- 0499 Dec, [facility] [address] [place] [id number] [place] [address] 12852- 6038 14 Dec, 2016 [facility] [address] [place] [id number] [place] [address] 35213- 0778 07 Dec, 2016 [facility] [address] [place] [id number] [place] [address] 92339- 1670 28 Nov, 2016 [facility] [address] [place] [id number] [place] [address] 49694- 8232 Nov, Gastro-esophageal reflux disease without esophagitis K21.9 [facility] [address] [place] [id number] [place] [address] 02402- 9125 10 Nov, 2016 Atrial fibrillation, unspecified type I48.91 and Anxiety F41.9 [facility] [address] [address]- 4200 Oct, [facility] [address] [place] [id number] [place] [address] 35458- 2190 Oct, [facility] [address] [place] [address] 76579- 9199 Oct, Depression F32.9 and Atrial fibrillation, unspecified type I48.91 [facility] [address] [place] [address] 05984- 8747 Oct, [facility] [address], [place] [address]- 2861 Sep, Depression F32.9 [place] [address] [place] [id number] [place] [address] 69352- 7668 Sep, Recurrent major depressive disorder, in partial remission F33.41 and Generalized anxiety disorder F41.1 [place] [address] [place] [id number] [place] [address] 45404- 1357 Sep, Paroxysmal atrial fibrillation I48.0 and Anxiety F41.9 [place] [address] [place] [id number] [place] [address] 79033- 6303 Sep, [place] [address] [place] [id number] [place] [address] 65630- 8259 Sep, [place] [address] [place] [id number] [place] [address] 78288- 2351 Sep, Gastro-esophageal reflux disease without esophagitis K21.9 [place] [address] [place] [id number] [place] [address] 25451- 3528 Aug, [place] [address] [place] [id number] [place] [address] 88432- 2377 Aug, [place] [address] [place] [id number] [place] [address] 15993- 2467 Aug, Atrial fibrillation, unspecified type I48.91 [place] [address] [place] [id number] [place] [address] 40735- 2764 Jul, Major depressive disorder, recurrent, in partial remission F33.41 and Generalized anxiety disorder F41.1 [place] [address] [place] [address] 81553- 1153 Jul, [place] [address] [place] [id number] [place] [address] 94679- 8597 30 Jun, 2016 [place] [address] [place] [id number] [place] [address] 00218- 3404 15 Jun, 2016 Bronchitis J40 and Memory loss R41.3 [place] [address] [place] [address] 78606- 0233 14 Sep, 2016 Upper respiratory infection with cough and congestion J06.9 [facility] [address] [place] [id number] [place] [address] 46176- 0417 Apr, [facility] [address] [place] [id number] [place] [address] 65570- 6218 Apr, Major depressive disorder, recurrent, unspecified F33.9 ; Anxiety F41.9 and Psychophysiological insomnia F51.04 [facility] [address] [place] [id number] [place] [address] 33967- 3056 Mar, [facility] [address] [place] [id number] [place] [address] 14467- 3507 Mar, [facility] [address] [place] [id number] [place] [address] 11310- 3465 February, [place] [address] [place] [id number] [place] [address] 99522- 0487 Jan, Postural hypotension I95.1 [facility] [address] [place] [id number] [place] [address] 81671- 9545 Jan, Recurrent major depressive disorder in remission F33.40 ; Generalized anxiety disorder F41.1 and Psychophysiological insomnia F51.04 [place] [address] [place] [id number] [place] [address] 30802- 6910 Dec, Generalized anxiety disorder F41.1 [facility] [address] [place] [address] 62406 -0780 Dec, Unspecified fall, initial encounter W19.XXXA [facility] [address] [place] [id number] [place] [address] 22829- 3708 Nov, Depression F32.9 and Anxiety F41.9 [facility] [address] [place] [id number] [place] [address] 66387- 5118 Oct, [facility] [address] [place] [id number] [place] [address] 05932- 1308 Oct, [facility] [address] [place] [id number] [place] [address] 59995- 6615 Oct, Chronic kidney disease, stage 3 (moderate) N18.3 [place] [address] [place] [id number] [place] [address] 61038- 5471 Oct, Head contusion S00.93XA ; Cervical strain S16.1XXA and Arthritis M19.90 [place] [address] [place] [id number] [place] [address] 17847- 0784 Oct, Chronic kidney disease 585.9 [place] [address] 91782- 8279 Oct, Chronic kidney disease 585.9 [place] [address] 99185- 1610 Oct, [place] [address] [place] [id number] [place] [address] 63874- 1672 Sep, [place] [address] [place] [id number] [place] [address] 71959- 6333 Aug, Chronic kidney disease N18.9 [place] [id number] [place] [address] 52308- 5990 Aug, Chronic kidney disease (CKD) stage G1/A1, glomerular filtration rate (GFR) equal to or greater than 90 mL/min/1.73 square meter and albuminuria creatinine ratio less than 30 mg/g N18.1 and GERD (gastroesophageal reflux disease) K21.9 [place] [address] [place] [id number] [place] [address] 25671- 4617 Aug, [place] [address] [place] [id number] [place] [address] 87911- 1627 Jun, Generalized anxiety disorder 300.02 ; Major depression, recurrent 296.30 and Persistent 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 [place] [address] [place] [id number] [place] [address] 88446- 1001 Jun, [place] [address] 68942- 8549 May, [facility] [address] [place] [id number], [place] [address]- 3329 May, Generalized anxiety disorder 300.02 and Depression, major, recurrent, in remission 296.35 [facility] [address], [place] [address]- 5573 May, [facility] [address], [place] [address]- 3491 May, [facility] [address] [place] [address] 93400- 8275 May, [facility] [address] [place] [address] 50381- 1239 May, [facility] [address], [place] [address]- 3839 May, Chronic kidney disease 585.9 [facility] [address] [place] [id number] [place] [address] 39055- 4023 Apr, Chronic kidney disease 585.9 [facility] [address], [place] [address]- 8473 Apr, [facility] [address], [place] [address]- 9498 Apr, Arthropathy 716.90 ; Hyperlipidemia 272.4 ; Hypothyroidism 244.9 and GERD (gastroesophageal reflux disease) 530.81 [facility] [address], [place] [address]- 8684 Apr, Arthropathy 716.90 ; Hypothyroidism 244.9 ; Hyperlipidemia 272.4 and GERD (gastroesophageal reflux disease) 530.81 [facility] [address], [place] [address]- 0417 Mar, [facility] [address], [place] [address]- 1404 February, Depression, major, recurrent, in remission 296.35 and Generalized anxiety disorder 300.02 [facility] [address] [place] [id number] [place] [address]- 3446 February, [facility] [address] [id number] [place] [address]- 6402 February, [facility] [address] [id number] [place] [address]- 5289 Jan, [facility] [address] [id number] [place] [address]- 6454 Jan, [facility] [address] [id number] [place] [address]- 9877 Oct, [facility] [address] [id number] [place] [address]- 7468 Oct, [facility] [address] [id number] [place] [address]- 3575 Oct, [facility] [address] [id number] [place] [address]- 4165 Oct, [facility] [address] [id number] [place] [address]- 0204 Oct, [facility] [address] [id number] [place] [address]- 3497 Oct, [facility] [address] [id number] [place] [address]- 9462 Sep, [facility] [address] [id number] [place] [address]- 9477 Sep, [facility] [address] [id number] [place] [address]- 3739 Aug, [facility] [place] [facility] [address] [id number] [place] [address]- 4074 Aug, [facility] [place] [facility] [address] [id number] [place] [address]- 7618 Aug, [facility] [address] [id number] [place] [address]- 3780 Aug, [facility] [place] [facility] [address] [id number] [place] [address]- 3644 Jul, [facility] [place] [facility] [address] [id number] [place] [address]- 5713 Jul, [facility] [place] [facility] [address] [id number] [place] [address]- 7987 Jul, [facility] [place] [facility] [address] [id number] [place] [address]- 4493 Jul, [facility] [place] [facility] [address] [id number] [place] [address]- 8338 29 Jun, 2014 [facility] [place] [facility] [address] [id number] [place] [address]- 0496 Jun, [facility] [place] [facility] [address] [id number] [place] [address]- 0229 Jun, [facility] [place] [facility] [address] [id number] [place] [address]- 7572 Jun, [facility] [place] [facility] [address] [id number] [place] [address]- 8204 Jun, [facility] [place] [facility] [address] [id number] [place] [address]- 0787 Jun, [facility] [place] [facility] [address] [id number] [place] [address]- 5799 Jun, [facility] [place] [facility] [address] [id number] [place] [address]- 1244 May, [facility] [place] [facility] [address] [id number] [place] [address]- 6591 May, [facility] [place] [facility] [address] [id number] [place] [address]- 3054 May, [facility] [place] [facility] [address] [id number] [place] [address]- 6029 May, [facility] [place] [facility] [address] [id number] [place] [address]- 7971 Apr, [facility] [place] [facility] [address] [id number] [place] [address]- 2461 Apr, [facility] [place] [facility] [address] [id number] [place] [address]- 3975 Apr, [facility] [place] [facility] [address] [id number] [place] [address]- 5697 Apr, [facility] [place] [facility] [address] [id number] [place] [address]- 1977 Apr, [facility] [place] [facility] [address] [id number] [place] [address]- 3357 Apr, [facility] [place] [facility] [address] [id number] [place] [address]- 9046 Apr, [facility] [place] [facility] [address] [id number] [place] [address]- 4068 Apr, [facility] [place] [facility] [address] [id number] [place] [address]- 8949 Mar, [facility] [place] [facility] [address] [id number] [place] [address]- 7147 Mar, [facility] [place] [facility] [address] [id number] [place] [address] Mar, [facility] [place] [facility] [address] [id number] [place] [address] Mar, [facility] [place] [facility] [address] [id number] [place] [address] Mar, [facility] [place] [facility] [address] [id number] [place] [address] Mar, [facility] [place] [facility] [address] [id number] [place] [address] Mar, [facility] [place] [facility] [address] [id number] [place] [address] Mar, [facility] [place] [facility] [address] [id number] [place] [address] 31 Dec, 2013 [facility] [place] [facility] [address] [id number] [place] [address] [address] Dec, [facility] [place] [facility] [address] [id number] [place] [address] Dec, [facility] [place] [facility] [address] [id number] [place] [address] Dec, [facility] [place] [facility] [address] [id number] [place] [address] Dec, [facility] [place] [facility] [address] [id number] [place] [address] Dec, [facility] [place] [facility] [address] [facility] [id number] [place] [address] Dec, [facility] [place] [facility] [address] [id number] [place] [address] Dec, [facility] [place] [facility] [address] [id number] [place] [address] Nov, [facility] [place] [facility] [address] [id number] [place] [address] Nov, [facility] [place] [facility] [address] [facility] [id number] [place] [address] Nov, [facility] [place] [facility] [address] [id number] [place] [address] Nov, [facility] [place] [facility] [address] [facility] [id number] [place] [address] Nov, [facility] [place] [facility] [address] [id number] [place] [address] Nov, [facility] [place] [facility] [address] [facility] [id number] [place] [address] 03 Nov, 2013 [facility] [place] [facility] [address] [facility] [id number], [place] [address] Nov, [facility] [place] [facility] [address] [id number] [place] [address] Aug, [facility] [place] [facility] [address] [id number] [place] [address] Aug, [facility] [place] [facility] [address] [id number] [place] [address] Jul, [facility] [place] [facility] [address] [id number] [place] [address] Jul, [facility] [facility] [address] [id number] [place] [address] Jul, [facility] [place] [facility] [address] [id number] [place] [address] Jun, [facility] [place] [facility] [address] [id number] [place] [address] Jun, [facility] [place] [facility] [address] [id number] [place] [address] Jun, [facility] [place] [facility] [address] [id number] [place] [address] Jun, [facility] [place] [facility] [address] [id number] [place] [address] Jun, [facility] [place] [address] [id number], [place] [address] May, [facility] [address] [id number] [place] [address] Apr, [facility] [place] [facility] [address] [id number] [place] [address] Apr, [facility] [address] [id number] [place] [address] Apr, [facility] [address] [id number] [place] [address] Mar, [facility] [place] [facility] [address] [id number] [place] [address] Mar, [facility] [address] [id number] [place] [address] February, [facility] [address] [id number] [place] [address] February, [facility] [address] [id number] [place] [address] February, [facility] [address] [id number] [place] [address] February, [facility] [address] [id number] [place] [address] Jan, [facility] [address] [id number] [place] [address] Jan, [facility] [address] [id number] [place] [address] Jan, [facility] [address] [id number] [place] [address] 04 Jan, 2013 [facility] [address] [id number] [place] [address]99 Dec, [facility] [address] [id number] [place] [address] 13 Dec, 2012 [facility] [address] [id number] [place] [address] Dec, [facility] [address] [id number] [place] [address] Nov, [facility] [address] [id number] [place] [address] 15 Nov, 2012 [facility] [address] [id number] [place] [address] Nov, [facility] [address] [id number] [place] [address] Oct, [facility] [facility] [address] [id number] [place] [address] Oct, [facility] [address] [id number] [place] [address] Sep, [facility] [facility] [address] [id number] [place] [address]99 Sep, [facility] [address] [id number] [place] [address] Sep, [facility] [facility] [address] [id number] [place] [address] Sep, [facility] [facility] [address] [id number] [place] [address]298 Sep, [facility] [facility] [address] [id number] [place] [address]798 Aug, [facility] [facility] [address] [id number], [place] [address] Aug, [facility] [place] [facility] [address] [id number] [place] [address]005 Aug, [facility] [address] [id number], [place] [address] Aug, [facility] [address] [id number], [place] [address] Aug, [facility] [address] [id number], [place] [address] Aug, [facility] [address] [id number] [place] [address] Jun, [facility] [address] [id number], [place] [address] 79[address] Jun, [facility] [address] [id number], [place] [address] Jun, [facility] [address] [id number] [place] [address] 1280 May, [facility] [address] [id number] [place] [address]106 May, [facility] [address] [id number] [place] [address] 7[address] May, [facility] [address] [id number] [place] [address]- 1465 May, [facility] [address] [id number] [place] [address]- 8027 Apr, [facility] [address] [id number] [place] [address] Mar, [facility] [address] [id number] [place] [address] 2405 Mar, [facility] [address] [id number] [place] [address] Mar, [facility] [address] [id number] [place] [address]151 February, [facility] [address] [id number] [place] [address] February, [facility] [address] [id number] [place] [address] 7792 February, [facility] [address] [id number] [place] [address] 49[address] February, [facility] [address] [id number] [place] [address] Dec, [facility] [address] [id number] [place] [address]- 4[address] Dec, [facility] [address] [id number] [place] [address] 2546 Dec, [facility] [address] [id number] [place] [address]- 2439 Dec, [facility] [address] [id number] [place] [address]- 3518 Nov, [facility] [address] [id number] [place] [address]- 3939 Nov, [facility] [address] [id number] [place] [address]- 5032 Nov, [facility] [address] [id number] [place] [address]- 2643 Nov, [facility] [address] [id number] [place] [address]- 4355 Nov, [facility] [address] [id number] [place] [address]- 6386 Oct, [facility] [address] [id number] [place] [address]- 6575 Oct, [facility] [address] [id number] [place] [address]- 8868 Oct, [facility] [address] [id number] [place] [address]- 3458 Aug, [facility] [address] [id number] [place] [address]- 9951 Aug, [facility] [address] [id number] [place] [address]- 0870 Jul, [facility] [address] [id number], [place] [address] Jul, [facility] [address] [id number] [place] [address]- 5709 Jul, [facility] [address] [id number] [place] [address]- 5884 Jul, [facility] [address] [id number] [place] [address]- 8904 Jul, [facility] [id number], [place] [address] 17 Jul, 2011 [facility] [id number], [place] [address]27 Jul, [facility] [address], [place] [address] Jul, [facility] [id number], [place] [address] May, [facility] [id number], [place] [address] February, [facility] [id number] [place] [address]- 4006 Nov, [facility] [id number] [place] [address]- 1776 Sep, [facility] [id number] [place] [address]- 8276 Aug, [facility] [id number], [place] [address]- [address] Oct, [facility] [id number] [place] [address]- 5155 Jul, [facility] [address], [place] [address] Jun, [facility] [address], [place] [address] Mar, [facility] [address], [place] [address]- 9181 Mar, [facility] [address], [place] [address] Nov, IMMUNIZATIONS No Known Immunizations SOCIAL HISTORY [...]
--- OUTSIDE RECORDS SUMMARY | 2019-01-24 07:33 | XMS REPORT ---
Author Author FRANCESCO PHILLIPS Organization [facility] Address [address] [place] [address] Care Team Providers Care Pathology Secretary/Transcriptionist Name Role Phone FRANCESCO PHILLIPS Unavailable PROBLEMS Type Condition ICD9-CM Code CDE59-FG Code Onset Dates Condition Status SNOMED Code Problem Paroxysmal atrial fibrillation I48.0 Active 358984093 Problem Generalized anxiety disorder F41.1 Active 07648858 Problem Gastro-esophageal reflux disease without esophagitis K21.9 Active 788403388 Problem Chronic kidney disease (CKD) stage G1/A1, glomerular filtration rate ( GFR) equal to or greater than 90 mL/min/1.73 square meter and albuminuria creatinine ratio less than 30 mg/g N18.1 Active 069307032 Problem Arthritis M19.90 Active 5287268 Problem Carpal tunnel syndrome of left wrist G56.02 Active 16411910 Problem Chronic diastolic heart failure I50.32 Active 207129519 Problem 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 Active 397818252 Problem MDD (major depressive disorder), recurrent, in partial remission F33.41 Active 69655813 Problem Secondary hyperparathyroidism of renal origin N25.81 Active 17139777 Problem Acquired hypothyroidism E03.9 Active [id number] ALLERGIES No Information ENCOUNTERS Encounter Location Date Diagnosis [facility] [address] [facility] [id number] [address] Jun, Depression F32.9 [facility] [address] [facility] [id number], [place] [address] May, Arthritis M19.90 ; Depression F32.9 ; Carpal tunnel syndrome of left wrist G56.02 ; Gastro-esophageal reflux disease without esophagitis K21.9 ; Generalized anxiety disorder F41.1 ; Paroxysmal atrial fibrillation I48.0 and Chronic kidney disease (CKD) stage G1/A1, glomerular filtration rate (GFR) equal to or greater than 90 mL/min/1.73 square meter and albuminuria creatinine ratio less than 30 mg/g N18.1 [place] [id number] [place] [address] 79649- 3877 May, [place] [address] [place] [id number] [place] [address] 91060- 3559 May, Generalized anxiety disorder F41.1 [place] [address] [place] [id number] [place] [address] 32236- 5259 May, Chronic kidney disease, stage 1 N18.1 [place] [address] [place] [id number] [place] [address] 20864- 6476 May, Chronic kidney disease, stage 1 N18.1 and Chronic diastolic heart failure I50.32 [facility] [address] [place] [id number] [place] [address] 23782 -4798 Mar, Pain, dental K08.89 [place] [id number] [place] [address] 66584- 6830 February, Medicare annual wellness visit, initial Z00.00 ; MDD (major depressive disorder), recurrent, in partial remission F33.41 ; Atrial fibrillation, unspecified type I48.91 ; Chronic diastolic heart failure I50.32 ; Secondary hyperparathyroidism of renal origin N25.81 ; Acquired hypothyroidism E03.9 ; Anxiety F41.9 ; Chronic kidney disease, stage 1 N18.1 and Encounter for immunization Z23 [place] [id number] [place] [address] 94321- 5117 February, Closed fracture of one rib of right side, initial encounter S22.31XA ; Acute cystitis with hematuria N30.01 ; Right flank pain R10.9 and Rib pain on right side R07.81 [place] [address] [place] [id number] [place] [address] 38951- 2143 Jan, Acquired hypothyroidism E03.9 ; 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 ; Chronic kidney disease (CKD) stage G1/A1, glomerular filtration rate (GFR) equal to or greater than 90 mL/min/1.73 square meter and albuminuria creatinine ratio less than 30 mg/g N18.1 ; Paroxysmal atrial fibrillation I48.0 ; Chronic diastolic heart failure I50.32 and Secondary hyperparathyroidism of renal origin N25.81 [place] [address] 18922- 7069 Jan, Arthritis M19.90 [place] [address] 51901- 6961 Jan, Paroxysmal atrial fibrillation I48.0 [place] [address] 58501- 2316 Jan, Paroxysmal atrial fibrillation I48.0 [place] [address] 03771- 4353 Jan, [place] [address] 62109- 3747 Jan, Generalized anxiety disorder F41.1 [place] [address] 29774- 3012 Jan, Generalized anxiety disorder F41.1 and MDD (major depressive disorder), recurrent, in partial remission F33.41 [place] [address] 45226- 7347 Dec, Arthritis M19.90 [place] [address] [place] [id number] [place] [address] 83385- 6980 Dec, [place] [address] 55608- 0345 Nov, Arthritis M19.90 ; Chronic kidney disease (CKD) stage G1/A1 , glomerular filtration rate (GFR) equal to or greater than 90 mL/min/1.73 square meter and albuminuria creatinine ratio less than 30 mg/g N18.1 and Anxiety F41.9 [place] [address] [place] [id number] [place] [address] 99213- 5762 Nov, [place] [address] 74447- 1980 Nov, [facility] [id number] [place] [address] 50501- 9612 Nov, [facility] [address] [place] [id number] [place] [address] 72038- 7814 Nov, [facility] [address] [place] [id number] [place] [address] 99585- 3976 Nov, [facility] [address] [place] [id number] [place] [address] 74044- 4428 Oct, Generalized anxiety disorder F41.1 [facility] [address] [place] [id number] [place] [address] 63132- 0551 Sep, Atrial fibrillation, unspecified type I48.91 [facility] [address] [place] [id number] [place] [address] 05105- 6073 Sep, Generalized anxiety disorder F41.1 and MDD (major depressive disorder), recurrent, in partial remission F33.41 [facility] [address] [place] [id number] [place] [address] 44281- 7898 Sep, [facility] [address] [place] [id number] [place] [address] 67069- 5985 Aug, Generalized anxiety disorder F41.1 [facility] [address] [place] [id number] [place] [address] 44395- 6725 Aug, [facility] [address] [place] [id number] [place] [address] 73265- 5011 Aug, Paroxysmal atrial fibrillation I48.0 and Gastro-esophageal reflux disease without esophagitis K21.9 [facility] [address] [place] [id number] [place] [address] 85999- 3318 Jul, [facility] [address] [place] [id number] [place] [address] 05493- 5428 Jul, Generalized anxiety disorder F41.1 [facility] [address] [place] [id number] [place] [address] 69334- 2463 Jun, Generalized anxiety disorder F41.1 and MDD (major depressive disorder), recurrent, in partial remission F33.41 [facility] [id number] [place] [address] 75893- 4858 May, Recurrent major depressive disorder, in partial remission F33.41 [facility] [address] [place] [address] 9475 May, Anxiety F41.9 and Paroxysmal atrial fibrillation I48.0 [facility] [address] [place] [id number] [place] [address] 65178- 8856 Apr, Generalized anxiety disorder F41.1 [facility] [address] [place] [id number] [place] [address] 96191- 8471 Mar, [facility] [address] [place] [id number] [place] [address] 08487- 5106 Mar, Generalized anxiety disorder F41.1 and MDD (major depressive disorder), recurrent, in partial remission F33.41 [facility] [id number] [place] [address] 82156- 4560 February, Paroxysmal atrial fibrillation I48.0 and Anxiety F41.9 [facility] [address] [place] [id number] [place] [address] 69204- 6901 February, MDD (major depressive disorder), recurrent, in partial remission F33.41 [facility] [address] [address] 3158 Jan, [facility] [address] [address] Jan, [facility] [address] [place] [id number] [place] [address] 53812- 2128 Jan, [facility] [address] [place] [id number] [place] [address]- 6364 Jan, [facility] [address] [address]- 9667 Dec, [facility] [address] [address]- 7752 Dec, Generalized anxiety disorder F41.1 [facility] [address] [place] [id number] [place] [address] 01760- 1396 Dec, Generalized anxiety disorder F41.1 and MDD (major depressive disorder), recurrent, in partial remission F33.41 [facility] [address] [place] [id number] [place] [address] 27076- 8457 Dec, [facility] [address] [place] [id number] [place] [address] 96989- 0998 14 Dec, 2016 [facility] [address] [place] [id number] [place] [address] 33160- 9541 07 Dec, 2016 [facility] [address] [place] [id number] [place] [address] 36706- 9678 28 Nov, 2016 [facility] [address] [place] [id number] [place] [address] 60400- 5220 Nov, Gastro-esophageal reflux disease without esophagitis K21.9 [facility] [address] [place] [id number] [place] [address] 42615- 1779 10 Nov, 2016 Atrial fibrillation, unspecified type I48.91 and Anxiety F41.9 [facility] [address] [address]- 1332 Oct, [facility] [address] [place] [id number] [place] [address] 48925- 3604 Oct, [facility] [id number] [place] [address] 01276- 8366 Oct, Depression F32.9 and Atrial fibrillation, unspecified type I48.91 [facility] [id number] [place] [address] 05098- 4312 Oct, [facility] [address] [address]- 7438 Sep, Depression F32.9 [place] [address] [place] [id number] [place] [address] 60122- 1173 Sep, Recurrent major depressive disorder, in partial remission F33.41 and Generalized anxiety disorder F41.1 [place] [address] [place] [id number] [place] [address] 10989- 2245 Sep, Paroxysmal atrial fibrillation I48.0 and Anxiety F41.9 [place] [address] [place] [id number] [place] [address] 01863- 2126 Sep, [place] [address] [place] [id number] [place] [address] 38369- 9240 Sep, [place] [address] [place] [id number] [place] [address] 16148- 4806 Sep, Gastro-esophageal reflux disease without esophagitis K21.9 [place] [address] [place] [id number] [place] [address] 48178- 7183 Aug, [place] [address] [place] [id number] [place] [address] 86971- 5388 Aug, [place] [address] [place] [id number] [place] [address] 51884- 3348 Aug, Atrial fibrillation, unspecified type I48.91 [place] [address] [place] [id number] [place] [address] 43048- 4024 Jul, Major depressive disorder, recurrent, in partial remission F33.41 and Generalized anxiety disorder F41.1 [place] [id number] [place] [address] 87411- 3112 Jul, [place] [address] [place] [id number] [place] [address] 43815- 6935 30 Jun, 2016 [place] [address] [place] [id number] [place] [address] 01517- 0302 15 Jun, 2016 Bronchitis J40 and Memory loss R41.3 [place] [id number] [place] [address] 67806- 7356 14 Sep, 2016 Upper respiratory infection with cough and congestion J06.9 [facility] [address] [place] [id number] [place] [address] 86089- 9955 Apr, [facility] [address] [place] [id number] [place] [address] 13285- 7911 Apr, Major depressive disorder, recurrent, unspecified F33.9 ; Anxiety F41.9 and Psychophysiological insomnia F51.04 [facility] [address] [place] [id number] [place] [address] 99837- 7238 Mar, [facility] [address] [place] [id number] [place] [address] 25045- 4441 Mar, [facility] [address] [place] [id number] [place] [address] 67665- 2589 February, [place] [address] [place] [id number] [place] [address] 03609- 1890 Jan, Postural hypotension I95.1 [facility] [address] [place] [id number] [place] [address] 72696- 8167 Jan, Recurrent major depressive disorder in remission F33.40 ; Generalized anxiety disorder F41.1 and Psychophysiological insomnia F51.04 [place] [address] [place] [id number] [place] [address] 99452- 3062 Dec, Generalized anxiety disorder F41.1 [facility] [id number] [place] [address] 91019 -0262 Dec, Unspecified fall, initial encounter W19.XXXA [facility] [address] [place] [id number] [place] [address] 37211- 6863 Nov, Depression F32.9 and Anxiety F41.9 [facility] [address] [place] [id number] [place] [address] 84617- 2758 Oct, [facility] [address] [place] [id number] [place] [address] 82780- 1928 Oct, [facility] [address] [place] [id number] [place] [address] 83589- 4401 Oct, Chronic kidney disease, stage 3 (moderate) N18.3 [place] [address] [place] [id number] [place] [address] 02894- 3924 Oct, Head contusion S00.93XA ; Cervical strain S16.1XXA and Arthritis M19.90 [place] [address] [place] [id number] [place] [address] 72119- 5132 Oct, Chronic kidney disease 585.9 [place] [address] 09004- 4617 Oct, Chronic kidney disease 585.9 [place] [address] 62374- 0702 Oct, [place] [address] [place] [id number] [place] [address] 89334- 9177 Sep, [place] [address] [place] [id number] [place] [address] 69090- 0298 Aug, Chronic kidney disease N18.9 [place] [id number] [place] [address] 18912- 4231 Aug, Chronic kidney disease (CKD) stage G1/A1, glomerular filtration rate (GFR) equal to or greater than 90 mL/min/1.73 square meter and albuminuria creatinine ratio less than 30 mg/g N18.1 and GERD (gastroesophageal reflux disease) K21.9 [place] [address] [place] [id number] [place] [address] 58180- 1837 Aug, [place] [address] [place] [id number] [place] [address] 22509- 0290 Jun, Generalized anxiety disorder 300.02 ; Major depression, recurrent 296.30 and Persistent 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 [place] [address] [place] [id number] [place] [address] 50971- 7495 Jun, [place] [address] 96277- 8900 May, [facility] [address] [place] [id number] [address]- 7275 May, Generalized anxiety disorder 300.02 and Depression, major, recurrent, in remission 296.35 [facility] [address], [place] [address]- 6942 May, [facility] [address], [place] [address]- 2710 May, [facility] [id number] [place] [address] 84538- 0318 May, [facility] [id number] [place] [address] 01377- 1878 May, [facility] [address], [place] [address]- 5173 May, Chronic kidney disease 585.9 [facility] [address] [place] [id number] [place] [address] 20330- 8025 Apr, Chronic kidney disease 585.9 [facility] [address], [place] [address]- 7140 Apr, [facility] [address] [address]- 0177 Apr, Arthropathy 716.90 ; Hyperlipidemia 272.4 ; Hypothyroidism 244.9 and GERD (gastroesophageal reflux disease) 530.81 [facility] [address] [address]- 1671 Apr, Arthropathy 716.90 ; Hypothyroidism 244.9 ; Hyperlipidemia 272.4 and GERD (gastroesophageal reflux disease) 530.81 [facility] [address] [address]- 8465 Mar, [facility] [address] [address]- 9172 February, Depression, major, recurrent, in remission 296.35 and Generalized anxiety disorder 300.02 [facility] [address] [place] [id number] [place] [address]- 0606 February, [facility] [address] [id number] [place] [address]- 4606 February, [facility] [address] [id number] [place] [address]- 9364 Jan, [facility] [address] [id number] [place] [address]- 4365 Jan, [facility] [address] [id number] [place] [address]- 6341 Oct, [facility] [address] [id number] [place] [address]- 1183 Oct, [facility] [address] [id number] [place] [address]- 4298 Oct, [facility] [address] [id number] [place] [address]- 3612 Oct, [facility] [address] [id number] [place] [address]- 9305 Oct, [facility] [address] [id number] [place] [address]- 4808 Oct, [facility] [address] [id number] [place] [address]- 9445 Sep, [facility] [address] [id number] [place] [address]- 0129 Sep, [facility] [address] [id number] [place] [address]- 8205 Aug, [facility] [place] [facility] [address] [id number] [place] [address]- 6339 Aug, [facility] [place] [facility] [address] [id number] [place] [address]- 6780 Aug, [facility] [address] [id number] [place] [address]- 0880 Aug, [facility] [place] [facility] [address] [id number] [place] [address]- 4781 Jul, [facility] [place] [facility] [address] [id number] [place] [address]- 9057 Jul, [facility] [place] [facility] [address] [id number] [place] [address]- 2998 Jul, [facility] [place] [facility] [address] [id number] [place] [address]- 3145 Jul, [facility] [place] [facility] [address] [id number] [place] [address]- 9143 29 Jun, 2014 [facility] [place] [facility] [address] [id number] [place] [address]- 7251 Jun, [facility] [place] [facility] [address] [id number] [place] [address]- 8673 Jun, [facility] [place] [facility] [address] [id number] [place] [address]- 7741 Jun, [facility] [place] [facility] [address] [id number] [place] [address]- 2441 Jun, [facility] [place] [facility] [address] [id number] [place] [address]- 8735 Jun, [facility] [place] [facility] [address] [id number] [place] [address]- 0419 Jun, [facility] [place] [facility] [address] [id number] [place] [address]- 2483 May, [facility] [place] [facility] [address] [id number] [place] [address]- 5960 May, [facility] [place] [facility] [address] [id number] [place] [address]- 7954 May, [facility] [place] [facility] [address] [id number] [place] [address]- 2388 May, [facility] [place] [facility] [address] [id number] [place] [address]- 7020 Apr, [facility] [place] [facility] [address] [id number] [place] [address]- 8695 Apr, [facility] [place] [facility] [address] [id number] [place] [address]- 9652 Apr, [facility] [place] [facility] [address] [id number] [place] [address]- 2304 Apr, [facility] [place] [facility] [address] [id number] [place] [address]- 5937 Apr, [facility] [place] [facility] [address] [id number] [place] [address]- 2213 Apr, [facility] [place] [facility] [address] [id number] [place] [address]- 2498 Apr, [facility] [place] [facility] [address] [id number] [place] [address]- 4098 Apr, [facility] [place] [facility] [address] [id number] [place] [address]- 3372 Mar, [facility] [place] [facility] [address] [id number] [place] [address]- 9034 Mar, [facility] [place] [facility] [address] [id number] [place] [address]- 5485 Mar, [facility] [place] [facility] [address] [id number] [place] [address]- 2049 Mar, [facility] [place] [facility] [address] [id number] [place] [address]- 4812 Mar, [facility] [place] [facility] [address] [id number] [place] [address]- [address] Mar, [facility] [place] [facility] [address] [id number] [place] [address] Mar, [facility] [place] [facility] [address] [id number] [place] [address] Mar, [facility] [place] [facility] [address] [id number] [place] [address] 31 Dec, 2013 [facility] [place] [facility] [address] [id number] [place] [address] Dec, [facility] [place] [facility] [address] [id number] [place] [address] Dec, [facility] [place] [facility] [address] [id number] [place] [address] Dec, [facility] [place] [facility] [address] [id number] [place] [address] Dec, [facility] [place] [facility] [address] [id number] [place] [address] Dec, [facility] [place] [facility] [address] [facility] [id number] [place] [address] Dec, [facility] [place] [facility] [address] [id number] [place] [address] Dec, [facility] [place] [facility] [address] [id number] [place] [address] Nov, [facility] [place] [facility] [address] [id number] [place] [address] Nov, [facility] [place] [facility] [address] [facility] [id number] [place] [address] Nov, [facility] [place] [facility] [address] [id number] [place] [address] Nov, [facility] [place] [facility] [address] [facility] [id number] [place] [address]- [address] Nov, [facility] [place] [facility] [address] [id number] [place] [address] Nov, [facility] [place] [facility] [address] [facility] [id number] [place] [address]- [address] 03 Nov, 2013 [facility] [place] [facility] [address] [facility] [id number], [place] [address] Nov, [facility] [place] [facility] [address] [id number] [place] [address] Aug, [facility] [place] [facility] [address] [id number] [place] [address] Aug, [facility] [place] [facility] [address] [id number] [place] [address] Jul, [facility] [place] [facility] [address] [id number] [place] [address]- [address] Jul, [facility] [place] [facility] [address] [id number] [place] [address] Jul, [facility] [place] [facility] [address] [id number] [place] [address]- [address] Jun, [facility] [place] [facility] [address] [id number] [place] [address] Jun, [facility] [place] [facility] [address] [id number] [place] [address] Jun, [facility] [place] [facility] [address] [id number] [place] [address] Jun, [facility] [place] [facility] [address] [id number] [place] [address] Jun, [facility] [place] [facility] [address] [id number], [place] [address] May, [facility] [place] [facility] [address] [address] [id number] [place] [address] Apr, [facility] [place] [facility] [address] [id number] [place] [address] Apr, [facility] [place] [facility] [address] [id number] [place] [address] Apr, [facility] [place] [facility] [address] [id number] [place] [address] Mar, [facility] [place] [facility] [address] [id number] [place] [address] Mar, [facility] [address] [id number] [place] [address] February, [facility] [address] [id number] [place] [address] February, [facility] [address] [id number] [place] [address] February, [facility] [address] [id number] [place] [address] February, [facility] [address] [id number] [place] [address] Jan, [facility] [address] [id number] [place] [address] Jan, [facility] [address] [id number] [place] [address] Jan, [facility] [address] [id number] [place] [address] 04 Jan, 2013 [facility] [address] [id number] [place] [address] Dec, [facility] [address] [id number] [place] [address] 13 Dec, 2012 [facility] [address] [id number] [place] [address] Dec, [facility] [address] [id number] [place] [address] Nov, [facility] [place] [facility] [address] [id number] [place] [address] 15 Nov, 2012 [facility] [place] [facility] [address] [id number] [place] [address] Nov, [facility] [place] [facility] [address] [id number] [place] [address] Oct, [facility] [place] [facility] [address] [id number] [place] [address] Oct, [facility] [place] [facility] [address] [id number] [place] [address] Sep, [facility] [place] [facility] [address] [id number] [place] [address] Sep, [facility] [place] [facility] [address] [id number] [place] [address] Sep, [facility] [place] [facility] [address] [id number] [place] [address] Sep, [facility] [place] [facility] [address] [id number] [place] [address]180 Sep, [facility] [place] [facility] [address] [id number] [place] [address] Aug, [facility] [place] [facility] [address] [id number], [place] [address] Aug, [facility] [place] [facility] [address] [id number] [place] [address]691 Aug, [facility] [place] [facility] [address] [id number], [place] [address] Aug, [facility] [place] [facility] [address] [id number], [place] [address] Aug, [facility] [place] [facility] [address] [id number], [place] [address] Aug, [facility] [place] [facility] [address] [id number] [place] [address] Jun, [facility] [place] [facility] [address] [id number], [place] [address] Jun, [facility] [place] [facility] [address] [id number], [place] [address] Jun, [facility] [place] [facility] [address] [id number] [place] [address] May, [facility] [place] [facility] [address] [id number] [place] [address] May, [facility] [place] [facility] [address] [id number] [place] [address] May, [facility] [place] [facility] [address] [id number] [place] [address] May, [facility] [place] [facility] [address] [id number] [place] [address] Apr, [facility] [place] [facility] [address] [id number] [place] [address] 80[address] Mar, [facility] [place] [facility] [address] [id number] [place] [address] Mar, [facility] [address] [id number] [place] [address] Mar, [facility] [address] [id number] [place] [address] February, [facility] [place] [facility] [address] [id number] [place] [address] February, [facility] [address] [id number] [place] [address] February, [facility] [place] [facility] [address] [id number] [place] [address] February, [facility] [place] [facility] [address] [id number] [place] [address] Dec, [facility] [place] [facility] [address] [id number] [place] [address] 45[address] Dec, [facility] [place] [facility] [address] [id number] [place] [address] Dec, [facility] [place] [facility] [address] [id number] [place] [address] Dec, [facility] [place] [facility] [address] [id number] [place] [address] Nov, [facility] [place] [facility] [address] [id number] [place] [address]- 4435 Nov, [facility] [place] [facility] [address] [id number] [place] [address] Nov, [facility] [place] [facility] [address] [id number] [place] [address]- [address] Nov, [facility] [place] [facility] [address] [id number] [place] [address] 32[address] Nov, [facility] [place] [facility] [address] [id number] [place] [address] 59[address] Oct, [facility] [place] [facility] [address] [id number] [place] [address] 4027 Oct, [facility] [place] [facility] [address] [id number] [place] [address] 1717 Oct, [facility] [place] [facility] [address] [id number] [place] [address] 1379 Aug, [facility] [place] [facility] [address] [id number] [place] [address] 8775 Aug, [facility] [place] [facility] [address] [id number] [place] [address]- 267[address] Jul, [facility] [place] [facility] [address] [id number], [place] [address] Jul, [facility] [place] [facility] [address] [id number] [place] [address]- 9585 Jul, [facility] [place] [facility] [address] [id number] [place] [address]- 6973 Jul, [facility] [place] [facility] [address] [id number] [place] [address]- 5832 Jul, [facility] [place] [facility] [id number], [place] [address] 17 Jul, 2011 [facility] [id number] [address] Jul, [facility] [id number] [address] Jul, [facility] [id number], [place] [address] May, [facility] [id number], [place] [address] February, [facility] [id number], [place] [address] Nov, [facility] [id number], [place] [address] Sep, [facility] [id number], [place] [address] 100[address] Aug, [facility] [id number], [place] [address] Oct, [facility] [id number] [address] Jul, [facility] [id number], [place] [address] Jun, [facility] [id number], [place] [address] Mar, [facility] [id number], [place] [address] Mar, [facility] [address] [id number] [address] Nov, IMMUNIZATIONS No Known Immunizations SOCIAL HISTORY Never Assessed REASON FOR VISIT new lab order PLAN OF CARE VITAL SIGNS MEDICATIONS Unknown [...]
--- NOTE | 2019-01-24 07:34 | Progress Note-Pre Operative ---
Pre-Operative Progress Note H&P Reviewed The H&P was reviewed, patient examined and no changes noted. Date Seen by Provider: Jan 24, 2019 Time Seen by Provider: 07:33 Date H&P Reviewed: Jan 24, 2019 Time H&P Reviewed: 07:33 Pre-Operative Diagnosis: left rotator cuff tear SARA OWENS MD Jan 24, 2019 07:34
--- OUTSIDE RECORDS SUMMARY | 2019-01-24 07:34 | XMS REPORT ---
Author Author JO-ANN BARKER [facility] Address [address] [place] [address] Care Team Providers Care Exercise Manager Name Role Phone JO-ANN BARKER Unavailable PROBLEMS Type Condition ICD9-CM Code JOL98-SP Code Onset Dates Condition Status SNOMED Code Problem Paroxysmal atrial fibrillation I48.0 Active 848698825 Problem Generalized anxiety disorder F41.1 Active 20527830 Problem Gastro-esophageal reflux disease without esophagitis K21.9 Active 199351698 Problem Chronic kidney disease (CKD) stage G1/A1, glomerular filtration rate ( GFR) equal to or greater than 90 mL/min/1.73 square meter and albuminuria creatinine ratio less than 30 mg/g N18.1 Active 559881974 Problem Arthritis M19.90 Active 7322312 Problem Carpal tunnel syndrome of left wrist G56.02 Active 98069748 Problem Chronic diastolic heart failure I50.32 Active 913851910 Problem 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 Active 470056924 Problem MDD (major depressive disorder), recurrent, in partial remission F33.41 Active 13643217 Problem Secondary hyperparathyroidism of renal origin N25.81 Active 10225461 Problem Acquired hypothyroidism E03.9 Active 056503244 ALLERGIES Substance Reaction Event Type Date Status morphine vomiting Drug Allergy Mar, Active Adhesive Tape itching, rash Drug Allergy Mar, Active ENCOUNTERS Encounter Location Date Diagnosis [facility] [address] [facility] [id number] [address] May, Arthritis M19.90 ; Depression F32.9 ; Carpal tunnel syndrome of left wrist G56.02 ; Gastro-esophageal reflux disease without esophagitis K21.9 ; Generalized anxiety disorder F41.1 ; Paroxysmal atrial fibrillation I48.0 and Chronic kidney disease (CKD) stage G1/A1, glomerular filtration rate (GFR) equal to or greater than 90 mL/min/1.73 square meter and albuminuria creatinine ratio less than 30 mg/g N18.1 [facility] [address] [place] [address] 89878- 5864 May, [place] [id number] [place] [address] 91205- 8158 May, Generalized anxiety disorder F41.1 [place] [id number] [place] [address] 06834- 6179 May, Chronic kidney disease, stage 1 N18.1 [place] [id number] [place] [address] 17761- 8317 May, Chronic kidney disease, stage 1 N18.1 and Chronic diastolic heart failure I50.32 [facility] [id number] [place] [address] 08226 -1195 Mar, Pain, dental K08.89 [place] [id number] [place] [address] 49487- 8610 February, Medicare annual wellness visit, initial Z00.00 ; MDD (major depressive disorder), recurrent, in partial remission F33.41 ; Atrial fibrillation, unspecified type I48.91 ; Chronic diastolic heart failure I50.32 ; Secondary hyperparathyroidism of renal origin N25.81 ; Acquired hypothyroidism E03.9 ; Anxiety F41.9 ; Chronic kidney disease, stage 1 N18.1 and Encounter for immunization Z23 [place] [id number] [place] [address] 96155- 3088 February, Closed fracture of one rib of right side, initial encounter S22.31XA ; Acute cystitis with hematuria N30.01 ; Right flank pain R10.9 and Rib pain on right side R07.81 [place] [id number] [place] [address] 61491- 6274 Jan, Acquired hypothyroidism E03.9 ; 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 ; Chronic kidney disease (CKD) stage G1/A1, glomerular filtration rate (GFR) equal to or greater than 90 mL/min/1.73 square meter and albuminuria creatinine ratio less than 30 mg/g N18.1 ; Paroxysmal atrial fibrillation I48.0 ; Chronic diastolic heart failure I50.32 and Secondary hyperparathyroidism of renal origin N25.81 [place] [address] 58652- 3328 Jan, Arthritis M19.90 [place] [id number] [place] [address] 32367- 1125 Jan, Paroxysmal atrial fibrillation I48.0 [place] [address] 02360- 0437 Jan, Paroxysmal atrial fibrillation I48.0 [place] [address] 22606- 1287 Jan, [place] [id number] [place] [address] 22999- 0454 Jan, Generalized anxiety disorder F41.1 [place] [address] 28694- 1728 Jan, Generalized anxiety disorder F41.1 and MDD (major depressive disorder), recurrent, in partial remission F33.41 [place] [id number] [place] [address] 28536- 6460 Dec, Arthritis M19.90 [place] [id number] [place] [address] 56109- 3554 Dec, [place] [id number] [place] [address] 50845- 5640 Nov, Arthritis M19.90 ; Chronic kidney disease (CKD) stage G1/A1 , glomerular filtration rate (GFR) equal to or greater than 90 mL/min/1.73 square meter and albuminuria creatinine ratio less than 30 mg/g N18.1 and Anxiety F41.9 [place] [id number] [place] [address] 64630- 5810 Nov, [place] [id number] [place] [address] 49258- 5115 Nov, [facility] [address] [address] 1761 Nov, [facility] [id number] [place] [address] 36102- 9536 Nov, [facility] [address] [place] [address] 33088- 2126 Nov, [facility] [id number] [place] [address] 54851- 2603 Oct, Generalized anxiety disorder F41.1 [facility] [address] [place] [address] 81937- 7806 Sep, Atrial fibrillation, unspecified type I48.91 [facility] [id number] [place] [address] 53961- 8346 Sep, Generalized anxiety disorder F41.1 and MDD (major depressive disorder), recurrent, in partial remission F33.41 [facility] [address] [place] [address] 97205- 7323 Sep, [facility] [id number] [place] [address] 31790- 2685 Aug, Generalized anxiety disorder F41.1 [facility] [address] [place] [address] 33037- 7095 Aug, [facility] [address] [place] [address] 43628- 8828 Aug, Paroxysmal atrial fibrillation I48.0 and Gastro-esophageal reflux disease without esophagitis K21.9 [facility] [address], [place] [address] 3246 Jul, [facility] [id number] [place] [address] 74255- 2856 Jul, Generalized anxiety disorder F41.1 [facility] [address], [place] [address] 6944 Jun, Generalized anxiety disorder F41.1 and MDD (major depressive disorder), recurrent, in partial remission F33.41 [facility] [address] [place] [id number] [address] 7326 May, Recurrent major depressive disorder, in partial remission F33.41 [facility] [address] [id number] [place] [address]- 7746 May, Anxiety F41.9 and Paroxysmal atrial fibrillation I48.0 [facility] [id number] [place] [address] 17390- 4132 Apr, Generalized anxiety disorder F41.1 [facility] [address] [place] [address] 44657- 3439 Mar, [facility] [id number] [place] [address] 69471- 3410 Mar, Generalized anxiety disorder F41.1 and MDD (major depressive disorder), recurrent, in partial remission F33.41 [facility] [address] [place] [address] 77563- 3512 February, Paroxysmal atrial fibrillation I48.0 and Anxiety F41.9 [facility] [id number] [place] [address], [place] [address]- 5047 February, MDD (major depressive disorder), recurrent, in partial remission F33.41 [facility] [address], [place] [address] 4819 Jan, [facility] [id number], [place] [address] Jan, [facility] [id number] [place] [address]- 4233 Jan, [facility] [id number] [place] [address] 46622- 4824 Jan, [facility] [address] [id number] [place] [address]- 7711 Dec, [facility] [id number] [address]- 9802 Dec, Generalized anxiety disorder F41.1 [facility] [id number] [place] [address] 47499- 1466 Dec, Generalized anxiety disorder F41.1 and MDD (major depressive disorder), recurrent, in partial remission F33.41 [facility] [id number] [place] [address] 32965- 1398 15 Dec, 2016 [facility] [id number] [place] [address] 95146- 3753 14 Dec, 2016 [facility] [id number] [place] [address] 23071- 3483 Dec, [facility] [id number] [place] [address] 29871- 2044 28 Nov, 2016 [facility] [id number] [place] [address] 51387- 5849 27 Nov, 2016 Gastro-esophageal reflux disease without esophagitis K21.9 [facility] [id number] [place] [address] 90703- 2769 10 Nov, 2016 Atrial fibrillation, unspecified type I48.91 and Anxiety F41.9 [facility] [id number] [place] [address] 52633- 9372 Oct, [facility] [id number] [place] [address] 66674- 4436 Oct, [facility] [id number] [place] [address] 57295- 9820 Oct, Depression F32.9 and Atrial fibrillation, unspecified type I48.91 [facility] [id number] [place] [address] 32119- 3919 Oct, [facility] [id number] [place] [address] 71358- 3653 Sep, Depression F32.9 [facility] [id number] [place] [address] 81168- 3434 Sep, Recurrent major depressive disorder, in partial remission F33.41 and Generalized anxiety disorder F41.1 [facility] [id number] [place] [address] 65296- 7850 Sep, Paroxysmal atrial fibrillation I48.0 and Anxiety F41.9 [facility] [id number] [place] [address] 36431- 8435 Sep, [facility] [id number] [place] [address] 34076- 0266 Sep, [place] [id number] [place] [address] 23723- 9569 Sep, Gastro-esophageal reflux disease without esophagitis K21.9 [facility] [id number] [place] [address] 76791- 7919 Aug, [place] [id number] [place] [address] 46401- 6390 Aug, [place] [id number] [place] [address] 77667- 6736 Aug, Atrial fibrillation, unspecified type I48.91 [place] [id number] [place] [address] 38386- 0711 Jul, Major depressive disorder, recurrent, in partial remission F33.41 and Generalized anxiety disorder F41.1 [place] [address] [place] [address] 81073- 0682 Jul, [place] [id number] [place] [address] 12576- 6005 30 Jun, 2016 [place] [id number] [place] [address] 40848- 6341 15 Jun, 2016 Bronchitis J40 and Memory loss R41.3 [facility] [id number] [place] [address] 13206- 6232 14 Jun, 2016 Upper respiratory infection with cough and congestion J06.9 [facility] [address] [place] [address] 01853- 5566 Apr, [facility] [id number] [place] [address] 44254- 6403 Apr, Major depressive disorder, recurrent, unspecified F33.9 ; Anxiety F41.9 and Psychophysiological insomnia F51.04 [facility] [id number] [place] [address] 49228- 2914 Mar, [facility] [id number] [place] [address] 56086- 0362 Mar, [facility] [id number] [place] [address] 06034- 1733 February, [facility] [id number] [place] [address] 90131- 8975 Jan, Postural hypotension I95.1 [facility] [id number] [place] [address] 44046- 9728 Jan, Recurrent major depressive disorder in remission F33.40 ; Generalized anxiety disorder F41.1 and Psychophysiological insomnia F51.04 [facility] [id number] [place] [address] 79873- 2718 Dec, Generalized anxiety disorder F41.1 [facility] [address] [place] [address] 78337 -8524 Dec, Unspecified fall, initial encounter W19.XXXA [facility] [address] [place] [address] 99100- 1180 Nov, Depression F32.9 and Anxiety F41.9 [facility] [id number] [place] [address] 20491- 7779 Oct, [facility] [id number] [place] [address] 44145- 9497 Oct, [facility] [id number] [place] [address] 95949- 0896 Oct, Chronic kidney disease, stage 3 (moderate) N18.3 [place] [id number] [place] [address] 33686- 6279 Oct, Head contusion S00.93XA ; Cervical strain S16.1XXA and Arthritis M19.90 [place] [address] 55651- 4100 Oct, Chronic kidney disease 585.9 [place] [address] 26408- 2438 Oct, Chronic kidney disease 585.9 [place] [address] 12782- 4787 Oct, [place] [address] 84760- 1816 Sep, [place] [address] 64005- 3554 Aug, Chronic kidney disease N18.9 [place] [address] 58643- 3125 Aug, Chronic kidney disease (CKD) stage G1/A1, glomerular filtration rate (GFR) equal to or greater than 90 mL/min/1.73 square meter and albuminuria creatinine ratio less than 30 mg/g N18.1 and GERD (gastroesophageal reflux disease) K21.9 [place] [id number] [place] [address] 00541- 0629 Aug, [place] [id number] [place] [address] 51777- 8543 Jun, Generalized anxiety disorder 300.02 ; Major depression, recurrent 296.30 and Persistent 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 [place] [id number] [place] [address] 14739- 5771 Jun, [place] [id number] [place] [address] 73545- 0960 May, [place] [address], [place] [address]- 9408 May, Generalized anxiety disorder 300.02 and Depression, major, recurrent, in remission 296.35 [facility] [address] [place] [address] 07044- 2986 May, [facility] [address] [place] [address] 89447- 3410 May, [facility] [id number] [place] [address] 74291- 7910 May, [facility] [address] [place] [address] 77652- 3538 May, [facility] [id number] [place] [address] 37934- 5892 May, Chronic kidney disease 585.9 [place] [id number] [place] [address] 55481- 3213 Apr, Chronic kidney disease 585.9 [facility] [address] [place] [address] 80673- 4697 Apr, [facility] [id number] [place] [address] 71043- 3193 Apr, Arthropathy 716.90 ; Hyperlipidemia 272.4 ; Hypothyroidism 244.9 and GERD (gastroesophageal reflux disease) 530.81 [facility] [address] [place] [address] 29560- 6183 Apr, Arthropathy 716.90 ; Hypothyroidism 244.9 ; Hyperlipidemia 272.4 and GERD (gastroesophageal reflux disease) 530.81 [place] [address] [place] [address] 55650- 7691 Mar, [facility] [id number] [place] [address] 24677040- 0864 February, Depression, major, recurrent, in remission 296.35 and Generalized anxiety disorder 300.02 [facility] [address] [place] [address] 74563- 2612 February, [facility] [place] [facility] [address] [id number] [place] [address]- 8721 February, [facility] [place] [facility] [address] [id number] [place] [address]- 0493 Jan, [facility] [place] [facility] [address] [id number] [place] [address]- 7694 Jan, [facility] [place] [facility] [address] [id number] [place] [address]- 4210 Oct, [facility] [place] [facility] [address] [id number] [place] [address]- 6975 Oct, [facility] [place] [facility] [address] [id number] [place] [address]- 8626 Oct, [facility] [place] [facility] [address] [id number] [place] [address]- 4557 Oct, [facility] [place] [facility] [address] [id number] [place] [address]- 9148 Oct, [facility] [place] [facility] [address] [id number] [place] [address]- 5247 Oct, [facility] [place] [facility] [address] [id number] [place] [address]- 1294 Sep, [facility] [place] [facility] [address] [id number] [place] [address]- 2237 Sep, [facility] [place] [facility] [address] [id number] [place] [address]- 7657 Aug, [facility] [place] [facility] [address] [id number] [place] [address]- 1370 Aug, [facility] [place] [facility] [address] [id number] [place] [address]- 3023 Aug, [facility] [place] [facility] [address] [id number] [place] 3406 Aug, [facility] [place] [facility] [address] [id number] [place] [address]- 9543 Jul, [facility] [place] [facility] [address] [id number] [place] [address]- 4015 Jul, [facility] [place] [facility] [address] [id number] [place] [address]- 8626 Jul, [facility] [place] [facility] [address] [id number] [place] [address]- 3999 Jul, [facility] [place] [facility] [address] [id number] [place] [address]- 1351 29 Jun, 2013 [facility] [place] [facility] [address] [id number] [place] [address]- 8349 Jun, [facility] [place] [facility] [address] [id number] [place] [address]- 3307 Jun, 2013 [facility] [place] [facility] [address] [id number] [place] [address]- 2542 Jun, 2013 [facility] [place] [facility] [address] [id number] [place] [address]- 9497 Jun, [facility] [place] [facility] [address] [id number] [place] [address]- 2542 Jun, [facility] [place] [facility] [address] [id number] [place] [address]- 2983 Jun, [facility] [place] [facility] [address] [id number] [place] [address]- 2543 May, [facility] [place] [facility] [address] [id number] [place] [address]- 2540 May, [facility] [place] [facility] [address] [id number] [place] [address]- 5405 May, [facility] [place] [facility] [address] [id number] [place] [address]- 5876 May, [facility] [place] [facility] [address] [id number] [place] [address]- 5079 Apr, [facility] [place] [facility] [address] [id number] [place] [address]- 0872 Apr, [facility] [place] [facility] [address] [id number] [place] [address]- 6782 Apr, [facility] [place] [facility] [address] [id number] [place] [address]- 7582 Apr, [facility] [place] [facility] [address] [id number] [place] [address]- 3575 Apr, [facility] [place] [facility] [address] [id number] [place] [address]- 5423 Apr, [facility] [place] [facility] [address] [id number] [place] [address]- 7082 Apr, [facility] [place] [facility] [address] [id number] [place] [address]- 4751 Apr, [facility] [place] [facility] [address] [id number] [place] [address]- 0324 Mar, [facility] [place] [facility] [address] [id number] [place] [address]- 8873 Mar, [facility] [place] [facility] [address] [id number] [place] [address]- 1811 Mar, [facility] [place] [facility] [address] [id number] [place] [address]- 4001 Mar, [facility] [place] [facility] [address] [id number] [place] [address]- 4221 Mar, [facility] [place] [facility] [address] [id number] [place] [address]- 7008 Mar, [facility] [place] [facility] [address] [id number] [place] [address]- 9308 Mar, [facility] [place] [facility] [address] [id number] [place] [address] Mar, [facility] [place] [facility] [address] [id number] [place] [address] Dec, [facility] [place] [facility] [address] [id number] [place] [address] Dec, [facility] [place] [facility] [address] [id number] [place] [address] Dec, [facility] [place] [facility] [address] [id number] [place] [address] Dec, [facility] [place] [facility] [address] [id number] [place] [address] Dec, [facility] [place] [facility] [address] [id number] [place] [address] Dec, [facility] [place] [facility] [address] [id number] [place] [address] Dec, [facility] [place] [facility] [address] [facility] [id number] [place] [address] Dec, [facility] [place] [facility] [address] [id number] [place] [address] Nov, [facility] [place] [facility] [address] [id number] [place] [address] Nov, [facility] [place] [facility] [address] [facility] [id number] [place] [address] Nov, [facility] [place] [facility] [address] [facility] [id number] [place] [address] Nov, [facility] [place] [facility] [address] [facility] [id number] [place] [address]- [address] 14 Nov, 2013 [facility] [place] [facility] [address] [id number] [place] [address] Nov, [facility] [place] [facility] [address] [facility] [id number] [place] [address] Nov, [facility] [place] [facility] [address] [facility] [id number] [place] [address] Nov, [facility] [place] [facility] [address] [id number] [place] [address] Aug, [facility] [place] [facility] [address] [id number] [place] [address] Aug, [facility] [place] [facility] [address] [id number] [place] [address] Jul, [facility] [place] [facility] [address] [id number] [place] [address] Jul, [facility] [place] [facility] [address] [id number] [place] [address] Jul, [facility] [place] [facility] [address] [id number] [place] [address] Jun, [facility] [place] [facility] [address] [id number] [place] [address] Jun, [facility] [place] [facility] [address] [id number] [place] [address] Jun, [facility] [place] [facility] [address] [id number] [place] [address] Jun, [facility] [place] [facility] [address] [id number] [place] [address] Jun, [facility] [place] [facility] [address] [id number] [place] [address] May, [facility] [place] [facility] [address] [id number], [place] [address] Apr, [facility] [facility] [address] [id number] [place] [address] Apr, [facility] [place] [facility] [address] [id number] [place] [address] Apr, [facility] [place] [facility] [address] [id number] [place] [address] [address] Mar, [facility] [place] [facility] [address] [id number] [place] [address] Mar, [facility] [address] [id number] [place] [address] February, [facility] [address] [id number] [place] [address] February, [facility] [address] [id number] [place] [address] February, [facility] [address] [id number] [place] [address] February, [facility] [address] [id number] [place] [address] Jan, [facility] [address] [id number] [place] [address] Jan, [facility] [address] [id number] [place] [address] Jan, [facility] [address] [id number] [place] [address] 04 Jan, 2013 [facility] [address] [id number] [place] [address] Dec, [facility] [address] [id number] [place] [address] Dec, [facility] [address] [id number] [place] [address] Dec, [facility] [address] [id number] [place] [address] Nov, [facility] [address] [id number] [place] [address] 15 Nov, 2012 [facility] [address] [id number] [place] [address] Nov, [facility] [address] [id number], [place] [address] Oct, [facility] [address] [id number] [place] [address] Oct, [facility] [place] [address] [id number] [place] [address] Sep, [facility] [place] [address] [id number] [place] [address] Sep, [facility] [place] [address] [id number] [place] [address] Sep, [facility] [address] [id number] [place] [address] Sep, [facility] [address] [id number] [place] [address] Sep, [facility] [address] [id number] [place] [address] Aug, [facility] [address] [id number] [place] [address] Aug, [facility] [address] [id number] [place] [address] Aug, [facility] [address] [id number] [place] [address] Aug, [facility] [address] [id number] [place] [address] Aug, [facility] [address] [id number] [place] [address] Aug, [facility] [address] [id number] [place] [address] Jun, [facility] [address] [id number] [place] [address] Jun, [facility] [address] [id number] [place] [address] Jun, [facility] [address] [id number] [place] [address] May, [facility] [address] [id number] [place] [address] May, [facility] [address] [id number] [place] [address] May, [facility] [address] [id number] [place] [address] May, [facility] [address] [id number] [place] [address] Apr, [facility] [address] [id number] [place] [address] Mar, [facility] [address] [id number] [place] [address] Mar, [facility] [address] [id number] [place] [address] Mar, [facility] [address] [id number] [place] [address] February, [facility] [address] [id number] [place] [address] February, [facility] [address] [id number] [place] [address] February, [facility] [address] [id number] [place] [address] February, [facility] [address] [id number] [place] [address] Dec, [facility] [address] [id number] [place] [address] Dec, [facility] [address] [id number] [place] [address] Dec, [facility] [address] [id number] [place] [address] Dec, [facility] [address] [id number] [place] [address] Nov, [facility] [address] [id number] [place] [address] Nov, [facility] [address] [id number] [place] [address] Nov, [facility] [address] [id number] [place] [address] 39[address] Nov, [facility] [address] [id number] [place] [address] Nov, [facility] [address] [id number] [place] [address]261 Oct, [facility] [address] [id number] [place] [address] Oct, [facility] [address] [id number] [place] [address] Oct, [facility] [address] [id number] [place] [address] Aug, [facility] [address] [facility] [id number] [place] [address] Aug, [facility] [address] [facility] [id number] [place] [address] Jul, [facility] [address] [id number] [place] [address] Jul, [facility] [address] [id number] [place] [address] Jul, [facility] [address] [id number] [place] [address] 7360 Jul, [facility] [address] [id number] [place] [address] Jul, [facility] [address] [id number] [place] [address] Jul, [facility] [address] [id number] [address] Jul, [facility] [id number], [place] [address] Jul, [facility] [id number], [place] [address] May, [facility] [address] [id number], [place] [address] February, [facility] [id number], [place] [address] Nov, [facility] [id number], [place] [address] Sep, [facility] [id number], [place] [address] Aug, [facility] [id number], [place] [address] Oct, [facility] [id number], [place] [address] Jul, [facility] [id number], [place] [address] Jun, [facility] [id number], [place] [address] Mar, [facility] [id number], [place] [address] Mar, [facility] [address] [id number], [place] [address] Nov, IMMUNIZATIONS No Known Immunizations SOCIAL HISTORY Never Assessed REASON FOR VISIT 8 days ago...pt had one tooth on the right lower side pulled (back tooth)...no her right jaw hurts up to her ear. hard to chew cause of the jaw pain. [email or web address] PLAN OF CARE Activity Details Follow Up prn Reason: VITAL SIGNS Height 66 in 2018-04-11 Weight 130.4 lbs 2018-04-11 Temperature 98.0 degrees Fahrenheit 2018-04-11 Heart Rate 74 bpm 2018-04-11 Respiratory Rate 20 2018-04-11 BMI 21.04 kg/m2 2018-04-11 Blood pressure systolic 124 mmHg 2018-04-11 Blood pressure diastolic 72 mmHg 2018-04-11 MEDICATIONS Medication Instructions Dosage Frequency Start Date End Date Duration Status Flecainide Acetate 50 MG Orally twice a day 1 tablet 12h Active Cholecalciferol 1000 UNIT Orally Once a day 1 capsule 24h Active Lasix 40 mg Orally every 48 hours 1/2 tablet Active Polyethylene Glycol 3350 Orally 2 times a day MIX 17 GRAMS IN 8 OZ OF SUITABLE LIQUID 12h 30 Active Tylenol Extra Strength 500 MG Orally every 6 hrs 1 tablet as needed 6h Active Docusate Sodium 50 MG Orally 2 times a day 1 capsule as needed 12h Active Toprol XL 25 MG Orally Once a day 1 tablet 24h Active Omeprazole 20 mg Orally Once a day 1 capsule 24h Apr, 90 days Active Diclofenac Sodium 1 Ophthalmic Four times a day 1 application to affected area 6h Active Ferrous Sulfate 325 (65 Fe) MG Orally Once a day 1 tablet 24h Active Levothyroxine Sodium 25 MCG TAKE ONE TABLET BY MOUTH ONCE DAILY 30 Active Eliquis 5 mg Orally 2 times a day 1 tablet 12h Active Xanax 1 MG Orally Twice a day as needed 1.5 tablets Jan, 30 days Active Wellbutrin SR 150 MG Orally Twice a day 1 tablet 12h 30 Active RESULTS No Results PROCEDURES Procedure Date Ordered Result Body Site [facility] VISIT ESTABLISHED PATIENT April 11, 2018 INSTRUCTIONS MEDICATIONS ADMINISTERED No Known Medications MEDICAL [...]
--- NOTE | 2019-01-24 07:35 | Progress Note-Post Operative ---
Post-Operative Progess Note Surgeon (s)/Spike Maker (s) Surgeon SARA OWENS MD Spike Maker: Herb Adams Pre-Operative Diagnosis left rotator cuff tear Post-Operative Diagnosis left rotator cuff tear Procedure & Operative Findings Date of Procedure 01/24/19 Procedure Performed/Findings left shoulder diagnostic arthroscopy and open rotator cuff repair Anesthesia Type GETA Estimated Blood Loss Estimated blood loss (mL): minimal Specimens/Packing Specimens Removed none Packing: none SARA OWENS MD Jan 24, 2019 07:35
--- OUTSIDE RECORDS SUMMARY | 2019-01-24 07:35 | XMS REPORT ---
Author Author FRANCESCO PHILLIPS [facility] Address [address] [place] [address] Care Team Providers Care Cop Name Role Phone FRANCESCO PHILLIPS Unavailable PROBLEMS Type Condition ICD9-CM Code RAH24-NL Code Onset Dates Condition Status SNOMED Code Problem Paroxysmal atrial fibrillation I48.0 Active 083483556 Problem Generalized anxiety disorder F41.1 Active 24157744 Problem Gastro-esophageal reflux disease without esophagitis K21.9 Active 098259320 Problem Chronic kidney disease, stage 1 N18.1 Active 476609640 Problem Secondary hyperparathyroidism of renal origin N25.81 Active 55270108 Problem 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 Active 714846734 Problem MDD (major depressive disorder), recurrent, in partial remission F33.41 Active 52765132 Problem Acquired hypothyroidism E03.9 Active 369087179 Problem Chronic diastolic heart failure I50.32 Active 170167914 Problem Arthritis M19.90 Active 0637338 Problem Depression F32.9 Active 76451943 Problem Anxiety F41.9 Active 16817890 Problem Chronic kidney disease (CKD) stage G1/A1, glomerular filtration rate ( GFR) equal to or greater than 90 mL/min/1.73 square meter and albuminuria creatinine ratio less than 30 mg/g N18.1 Active 646145916 Problem Atrial fibrillation, unspecified type I48.91 Active 37301706 ALLERGIES Substance Reaction Event Type Date Status morphine vomiting Drug Allergy February, Active Adhesive Tape itching, rash Drug Allergy February, Active ENCOUNTERS Encounter Location Date Diagnosis [facility] [id number] [address] May, Generalized anxiety disorder F41.1 [facility] [id number] [address] 230[address] May, Chronic kidney disease, stage 1 N18.1 [facility] [id number] [place] [address] 91840- 4977 May, Chronic kidney disease, stage 1 N18.1 and Chronic diastolic heart failure I50.32 [facility] [id number] [place] [address]52 -[address]24 Mar, Pain, dental K08.[address] [address]- [address] February, Medicare annual wellness visit, initial Z00.00 ; MDD (major depressive disorder), recurrent, in partial remission F33.41 ; Atrial fibrillation, unspecified type I48.91 ; Chronic diastolic heart failure I50.32 ; Secondary hyperparathyroidism of renal origin N25.81 ; Acquired hypothyroidism E03.9 ; Anxiety F41.9 ; Chronic kidney disease, stage 1 N18.1 and Encounter for immunization Z23 [address] [address] February, Closed fracture of one rib of right side, initial encounter S22.31XA ; Acute cystitis with hematuria N30.01 ; Right flank pain R10.9 and Rib pain on right side R07.[address] [address]- [address]4 Jan, Acquired hypothyroidism E03.9 ; 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 ; Chronic kidney disease (CKD) stage G1/A1, glomerular filtration rate (GFR) equal to or greater than 90 mL/min/1.73 square meter and albuminuria creatinine ratio less than 30 mg/g N18.1 ; Paroxysmal atrial fibrillation I48.0 ; Chronic diastolic heart failure I50.32 and Secondary hyperparathyroidism of renal origin N25.81 [facility] [id number] [place] [address] 51319- 8958 Jan, Arthritis M19.[address] [address]- 4184 Jan, Paroxysmal atrial fibrillation I48.[address] 23191- 1263 Jan, Paroxysmal atrial fibrillation I48.0 [facility] [id number] [place] [address] 94867- 8362 Jan, [facility] [address] [address]- [address] Jan, Generalized anxiety disorder F41.1 [place] [address] [address]- 3027 Jan, Generalized anxiety disorder F41.1 and MDD (major depressive disorder), recurrent, in partial remission F33.41 [facility] [address] 73958- 7661 Dec, Arthritis M19.90 [place] [address] 67379- 6626 Dec, [facility] [address] 88525- 5783 Nov, Arthritis M19.90 ; Chronic kidney disease (CKD) stage G1/A1 , glomerular filtration rate (GFR) equal to or greater than 90 mL/min/1.73 square meter and albuminuria creatinine ratio less than 30 mg/g N18.1 and Anxiety F41.9 [facility] [id number] [place] [address] 57803- 1570 Nov, [facility] [id number] [place] [address] 88438- 3596 Nov, [facility] [id number] [place] [address] 87472- 4406 Nov, [facility] [id number] [place] [address] 05488- 8062 Nov, [facility] [id number] [place] [address] 11254- 5165 Nov, [facility] [address] 97876- 7001 Oct, Generalized anxiety disorder F41.1 [facility] [address] [address] Sep, Atrial fibrillation, unspecified type I48.91 [facility] [id number] [place] [address] 43239- 4456 Sep, Generalized anxiety disorder F41.1 and MDD (major depressive disorder), recurrent, in partial remission F33.41 [facility] [id number] [place] [address] 22511- 0791 Sep, [facility] [id number] [place] [address] 00122- 0065 Aug, Generalized anxiety disorder F41.1 [facility] [id number] [place] [address] 03542- 7855 Aug, [facility] [id number] [place] [address] 77897- 1707 Aug, Paroxysmal atrial fibrillation I48.0 and Gastro-esophageal reflux disease without esophagitis K21.9 [facility] [id number] [place] [address] 25451- 8479 Jul, [facility] [id number] [place] [address] 24597- 9174 Jul, Generalized anxiety disorder F41.1 [facility] [address] [place] [address] 50649- 5421 Jun, Generalized anxiety disorder F41.1 and MDD (major depressive disorder), recurrent, in partial remission F33.41 [facility] [address] [place] [address] 00296- 1003 May, Recurrent major depressive disorder, in partial remission F33.41 [facility] [id number] [place] [address] 90329- 4685 May, Anxiety F41.9 and Paroxysmal atrial fibrillation I48.0 [facility] [id number] [place] [address] 78970- 6731 Apr, Generalized anxiety disorder F41.1 [facility] [address] [address]- [address] Mar, [facility] [id number] [place] [address] 51850- 9110 Mar, Generalized anxiety disorder F41.1 and MDD (major depressive disorder), recurrent, in partial remission F33.41 [facility] [id number] [place] [address] 60885- 4492 February, Paroxysmal atrial fibrillation I48.0 and Anxiety F41.9 [facility] [id number] [place] [address] 70884- 3939 February, MDD (major depressive disorder), recurrent, in partial remission F33.41 [facility] [id number] [place] [address] 76941- 5310 Jan, [facility] [id number] [place] [address] 90003 -0343 Jan, [facility] [id number] [place] [address] 97417- 6157 Jan, [facility] [id number] [place] [address] 73663- 1234 Jan, [facility] [address] [address]- 2094 Dec, [facility] [id number] [place] [address] 11240- 6554 Dec, Generalized anxiety disorder F41.1 [facility] [id number] [place] [address] 81545- 8538 Dec, Generalized anxiety disorder F41.1 and MDD (major depressive disorder), recurrent, in partial remission F33.41 [facility] [address] [place] [address] 287841- 7415 Dec, [facility] [id number] [place] [address] 77961- 0265 14 Dec, 2016 [facility] [id number] [place] [address] 91563- 2699 Dec, [facility] [id number] [place] [address] 70239- 5469 Nov, [facility] [id number] [place] [address] 25925- 0634 Nov, Gastro-esophageal reflux disease without esophagitis K21.9 [facility] [id number] [place] [address] 57466- 1380 10 Nov, 2016 Atrial fibrillation, unspecified type I48.91 and Anxiety F41.9 [facility] [id number] [place] [address] 00200- 4930 Oct, [facility] [id number] [place] [address] 34235- 2660 Oct, [facility] [id number] [place] [address] 48556- 4173 Oct, Depression F32.9 and Atrial fibrillation, unspecified type I48.91 [facility] [id number] [place] [address] 00454- 3648 Oct, [facility] [id number] [place] [address] 82774- 5320 Sep, Depression F32.9 [facility] [id number] [place] [address] 85755- 7893 Sep, Recurrent major depressive disorder, in partial remission F33.41 and Generalized anxiety disorder F41.1 [facility] [id number] [place] [address] 95277- 3212 Sep, Paroxysmal atrial fibrillation I48.0 and Anxiety F41.9 [facility] [id number] [place] [address] 17865- 3438 Sep, [facility] [address] [place] [address]- 0751 Sep, [facility] [id number] [place] [address] 62749- 0633 Sep, Gastro-esophageal reflux disease without esophagitis K21.9 [facility] [id number] [place] [address] 95586- 4252 Aug, [place] [facility] [address] 48703- 1591 Aug, [place] [address] 03022- 6772 Aug, Atrial fibrillation, unspecified type I48.91 [place] [address] 23430- 2092 Jul, Major depressive disorder, recurrent, in partial remission F33.41 and Generalized anxiety disorder F41.1 [place] [address] 96611- 7657 Jul, [facility] [id number] [place] [address] 36126- 4545 30 Jun, 2016 [place] [address] 63198- 8216 15 Jun, 2016 Bronchitis J40 and Memory loss R41.3 [facility] [id number] [place] [address] 88629- 4209 14 Jun, 2016 Upper respiratory infection with cough and congestion J06.9 [facility] [id number] [place] [address] 28460- 2239 Apr, [facility] [id number] [place] [address] 31468- 8066 Apr, Major depressive disorder, recurrent, unspecified F33.9 ; Anxiety F41.9 and Psychophysiological insomnia F51.04 [facility] [id number] [place] [address] 82254- 7000 Mar, [facility] [id number] [place] [address] 46363- 7821 08 Mar, 2016 [facility] [address] 58868- 1100 February, [facility] [id number] [place] [address] 02529- 6001 Jan, Postural hypotension I95.1 [facility] [address] 78300- 9648 Jan, Recurrent major depressive disorder in remission F33.40 ; Generalized anxiety disorder F41.1 and Psychophysiological insomnia F51.04 [place] [address] 25800- 7252 Dec, Generalized anxiety disorder F41.1 [facility] [id number] [place] [address] 96564 -2701 Dec, Unspecified fall, initial encounter W19.XXXA [address] 39131- 8883 Nov, Depression F32.9 and Anxiety F41.9 [place] [address] 14455- 5432 Oct, [facility] [id number] [place] [address] 46893- 6904 Oct, [facility] [address] 37041- 5630 Oct, Chronic kidney disease, stage 3 (moderate) N18.3 [facility] [id number] [place] [address] 00713- 4424 Oct, Head contusion S00.93XA ; Cervical strain S16.1XXA and Arthritis M19.90 [facility] [id number] [place] [address] 65277- 5263 Oct, Chronic kidney disease 585.9 [place] [facility] [address] 97410- 7226 Oct, Chronic kidney disease 585.9 [facility] [address] [address]- 8189 Oct, [facility] [id number] [place] [address] 71645- 5904 Sep, [facility] [id number] [place] [address] 36160- 3337 Aug, Chronic kidney disease N18.9 [facility] [id number] [place] [address] 03349- 6077 Aug, Chronic kidney disease (CKD) stage G1/A1, glomerular filtration rate (GFR) equal to or greater than 90 mL/min/1.73 square meter and albuminuria creatinine ratio less than 30 mg/g N18.1 and GERD (gastroesophageal reflux disease) K21.9 [facility] [facility] [id number] [place] [address] 25519- 2719 Aug, [facility] [id number] [place] [address] 69732- 4285 Jun, Generalized anxiety disorder 300.02 ; Major depression, recurrent 296.30 and Persistent 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 [facility] [address] [place] [address] 77436- 5564 Jun, [facility] [address] [place] [address] 11522- 1895 May, [facility] [id number] [place] [address] 03567- 0750 May, Generalized anxiety disorder 300.02 and Depression, major, recurrent, in remission 296.35 [facility] [id number] [place] [address] 85979- 1176 May, [facility] [id number] [place] [address] 61510- 5988 May, [facility] [id number] [place] [address] 98234- 2526 May, [facility] [address] [place] [address] 12294- 6591 May, [facility] [id number] [place] [address] 76038- 8284 May, Chronic kidney disease 585.9 [facility] [id number] [place] [address] 279089- 0113 Apr, Chronic kidney disease 585.9 [facility] [id number] [place] [address] 64211- 2648 Apr, [facility] [id number] [place] [address] 974118- 4342 Apr, Arthropathy 716.90 ; Hyperlipidemia 272.4 ; Hypothyroidism 244.9 and GERD (gastroesophageal reflux disease) 530.81 [facility] [id number] [place] [address] 97955- 1536 Apr, Arthropathy 716.90 ; Hypothyroidism 244.9 ; Hyperlipidemia 272.4 and GERD (gastroesophageal reflux disease) 530.81 [facility] [id number] [place] [address] 03465- 8988 Mar, [facility] [id number] [place] [address] 28089- 4628 February, Depression, major, recurrent, in remission 296.35 and Generalized anxiety disorder 300.02 [facility] [address] [place] [address] 38270- 5740 February, [facility] [id number] [place] [address] 74879- 7727 February, [facility] [id number] [place] [address] 57584- 8029 Jan, [facility] [id number] [place] [address] 47721- 6110 Jan, [facility] [id number] [place] [address] 19406- 2086 Oct, [facility] [place] [facility] [address] [id number] [place] [address]- 2728 Oct, [facility] [place] [facility] [address] [id number] [place] [address]- 8372 Oct, [facility] [place] [facility] [address] [id number] [place] [address]- 7763 Oct, [facility] [place] [facility] [address] [id number] [place] [address]- 0193 Oct, [facility] [place] [facility] [address] [id number] [place] [address]- 0104 Oct, [facility] [place] [facility] [address] [id number] [place] [address]- 1662 Sep, [facility] [place] [facility] [address] [id number] [place] [address]- 4400 Sep, [facility] [place] [facility] [address] [id number] [place] [address]- 1513 Aug, [facility] [place] [facility] [address] [id number] [place] [address]- 5501 Aug, [facility] [place] [facility] [address] [id number] [place] [address]- 9234 Aug, [facility] [place] [facility] [address] [id number] [address]- 6554 Aug, [facility] [place] [facility] [address] [id number] [address]- 1496 Jul, [facility] [place] [facility] [address] [id number] [place] [address]- 8274 Jul, [facility] [place] [facility] [address] [id number] [address]- 5644 Jul, [facility] [place] [facility] [address] [id number] [place] 8464 Jul, [facility] [place] [facility] [address] [id number] [place] [address]- 0884 29 Jun, 2013 [facility] [place] [facility] [address] [id number] [place] [address] 2546 Jun, [facility] [place] [facility] [address] [id number] [place] [address] 2546 Jun, [facility] [place] [facility] [address] [id number] [place] [address]- 0946 Jun, [facility] [place] [facility] [address] [id number] [place] [address] 2543 Jun, [facility] [place] [facility] [address] [id number] [place] [address]- 3720 Jun, [facility] [place] [facility] [address] [id number] [place] [address]- 2623 Jun, [facility] [place] [facility] [address] [id number] [place] [address]- 0519 May, [facility] [place] [facility] [address] [id number] [place] [address]- 6936 May, [facility] [place] [facility] [address] [id number] [place] [address]- 1959 May, [facility] [place] [facility] [address] [id number] [place] [address]- 7646 May, [facility] [place] [facility] [address] [id number] [place] [address]- 2541 Apr, [facility] [place] [facility] [address] [id number] [place] [address]- 2545 Apr, [facility] [place] [facility] [address] [id number] [place] [address]- 4977 Apr, [facility] [place] [facility] [address] [id number] [place] [address]- 4150 Apr, [facility] [place] [facility] [address] [id number] [place] [address]- 0754 Apr, [facility] [place] [facility] [address] [id number] [place] [address]- 8061 Apr, [facility] [place] [facility] [address] [id number] [place] [address]- 0774 Apr, [facility] [place] [facility] [address] [id number] [place] [address]- 6197 Apr, [facility] [place] [facility] [address] [id number] [place] [address]- 0986 Mar, [facility] [place] [facility] [address] [id number] [place] [address]- 8269 Mar, [facility] [place] [facility] [address] [id number] [place] [address]- 1469 Mar, [facility] [place] [facility] [address] [id number] [place] [address]- 0124 Mar, [facility] [place] [facility] [address] [id number] [place] [address]- 0743 Mar, [facility] [place] [facility] [address] [id number] [place] [address]- 9846 Mar, [facility] [place] [facility] [address] [id number] [place] [address]- 8627 Mar, [facility] [place] [facility] [address] [id number] [place] [address]- 0759 Mar, [facility] [place] [facility] [address] [id number] [place] [address]- 3657 Dec, [facility] [place] [facility] [address] [id number] [place] [address]- 9141 Dec, [facility] [place] [facility] [address] [id number] [place] [address]- 2187 Dec, [facility] [place] [facility] [address] [id number] [place] [address]- 5542 Dec, [facility] [place] [facility] [address] [id number] [place] [address]- 6231 Dec, [facility] [place] [facility] [address] [id number] [place] [address]- 6684 Dec, [facility] [place] [facility] [address] [id number] [place] [address]- 9146 Dec, [facility] [place] [facility] [address] [facility] [id number] [place] [address]- 2001 Dec, [facility] [place] [facility] [address] [id number] [place] [address]- 9670 Nov, [facility] [place] [facility] [address] [id number] [place] [address]- 0090 Nov, [facility] [place] [facility] [address] [id number] [place] [address]- 8166 Nov, [facility] [place] [facility] [address] [facility] [id number] [place] [address]- 2468 Nov, [facility] [place] [facility] [address] [facility] [id number] [place] [address]- 3190 Nov, [facility] [place] [facility] [address] [facility] [id number] [place] [address]- 6448 Nov, [facility] [place] [facility] [address] [facility] [id number] [place] [address]- 5281 Nov, [facility] [place] [facility] [address] [facility] [id number] [place] [address]- 2350 Nov, [facility] [place] [facility] [address] [facility] [id number] [place] [address] Aug, [facility] [place] [facility] [address] [id number] [place] [address] Aug, [facility] [place] [facility] [address] [facility] [id number] [place] [address] Jul, [facility] [place] [facility] [address] [facility] [id number] [place] [address] Jul, [facility] [address] [id number] [place] [address] Jul, [facility] [place] [facility] [address] [id number] [place] [address] Jun, [facility] [place] [facility] [address] [id number] [place] [address] Jun, [facility] [place] [facility] [address] [id number] [place] [address] Jun, [facility] [place] [facility] [address] [id number] [place] [address] Jun, [facility] [place] [facility] [address] [id number] [place] [address] Jun, [facility] [place] [facility] [address] [id number] [place] [address] May, [facility] [place] [facility] [address] [id number] [place] [address] Apr, [facility] [place] [facility] [address] [id number] [place] [address] Apr, [facility] [place] [facility] [address] [id number] [place] [address] Apr, [facility] [place] [facility] [address] [id number] [place] [address] Mar, [facility] [place] [facility] [address] [id number] [address] Mar, [facility] [place] [facility] [address] [id number] [place] [address] February, [facility] [place] [facility] [address] [id number] [place] [address] February, [facility] [place] [facility] [address] [id number] [place] [address] February, [facility] [place] [facility] [address] [id number] [address] 14 Feb, 2013 [facility] [address] [id number] [place] [address] 23 Jan, 2013 [facility] [address] [id number] [place] [address] Jan, [facility] [address] [id number] [place] [address] Jan, [facility] [address] [id number] [place] [address] 04 Jan, 2013 [facility] [address] [id number] [place] [address] 20 Dec, 2012 [facility] [address] [id number] [place] [address] 13 Dec, 2012 [facility] [address] [place] [id number] [place] [address] Dec, [facility] [address] [id number] [place] [address] Nov, [facility] [address] [id number] [place] [address] 15 Nov, 2012 [facility] [address] [id number] [place] [address] Nov, [facility] [address] [id number] [place] [address] Oct, [facility] [address] [id number] [place] [address] Oct, [facility] [address] [id number] [place] [address] Sep, [facility] [address] [id number] [place] [address] Sep, [facility] [address] [facility] [id number] [place] [address] Sep, [facility] [place] [facility] [address] [id number] [place] [address] Sep, [facility] [place] [facility] [address] [id number] [place] [address] Sep, [facility] [place] [facility] [address] [id number] [place] [address] Aug, [facility] [place] [facility] [address] [id number] [place] [address] Aug, [facility] [place] [facility] [address] [id number] [place] [address] Aug, [facility] [place] [facility] [address] [id number] [place] [address] Aug, [facility] [place] [facility] [address] [id number] [place] [address] Aug, [facility] [place] [facility] [address] [id number] [place] [address] Aug, [facility] [place] [facility] [address] [id number] [place] [address] Jun, [facility] [place] [facility] [address] [id number] [place] [address] Jun, [facility] [place] [facility] [address] [id number] [place] [address]702 Jun, [facility] [place] [facility] [address] [id number] [place] [address] May, [facility] [place] [facility] [address] [id number] [place] [address] May, [facility] [place] [facility] [address] [id number] [place] [address] May, [facility] [place] [facility] [address] [id number] [place] [address] May, [facility] [place] [facility] [address] [id number] [place] [address]846 Apr, [facility] [place] [facility] [address] [id number] [place] [address]92 Mar, [facility] [place] [facility] [address] [id number] [place] [address] 2796 Mar, [facility] [place] [facility] [address] [id number] [place] [address]36 Mar, [facility] [place] [facility] [address] [id number] [place] [address] February, [facility] [place] [facility] [address] [id number] [place] [address] February, [facility] [place] [facility] [address] [id number] [place] [address] February, [facility] [place] [facility] [address] [id number] [place] [address]16 February, [facility] [place] [facility] [address] [id number] [place] [address]344 Dec, [facility] [place] [facility] [address] [id number] [place] [address]70 Dec, [facility] [place] [facility] [address] [id number] [place] [address] Dec, [facility] [place] [facility] [address] [id number] [place] [address] Dec, [facility] [place] [facility] [address] [id number] [place] [address] Nov, [facility] [place] [facility] [address] [id number] [place] [address]- [address]26 Nov, [facility] [place] [facility] [address] [id number] [place] [address]- [address]326 Nov, [facility] [place] [facility] [address] [id number] [place] [address] Nov, [facility] [place] [facility] [address] [id number] [place] [address] Nov, [facility] [place] [facility] [address] [id number] [place] [address] Oct, [facility] [place] [facility] [address] [id number] [place] [address] Oct, [facility] [place] [facility] [address] [id number] [place] [address] 3682 Oct, [facility] [place] [facility] [address] [id number] [place] [address] Aug, [facility] [place] [facility] [address] [id number] [place] [address] Aug, [facility] [place] [facility] [address] [id number] [place] [address] Jul, [facility] [place] [facility] [address] [id number] [place] [address] Jul, [facility] [place] [facility] [address] [id number] [place] [address]- [address]65 Jul, [facility] [place] [facility] [address] [id number] [place] [address]- [address] Jul, [facility] [place] [facility] [address] [id number] [place] [address]- 5768 Jul, [facility] [place] [facility] [address] [id number] [place] [address] 3580 Jul, [facility] [place] [facility] [address] [id number] [place] [address] 79[address] Jul, [facility] [place] [facility] [address] [id number] [place] [address] Jul, [facility] [place] [facility] [address] [id number] [place] [address] May, [facility] [place] [facility] [address] [id number] [place] [address] February, [facility] [address] [id number] [address] Nov, [facility] [id number] [address] Sep, [facility] [id number] [address] Aug, [facility] [id number] [address] Oct, [facility] [id number] [address] Jul, [facility] [id number] [address] Jun, [facility] [id number] [address] Mar, [facility] [id number] [address] Mar, [facility] [address] [id number] [address] Nov, IMMUNIZATIONS Vaccine Route Administration Date Status PCV 13 IM Intramuscular March 17, 2018 Administered SOCIAL HISTORY Never Assessed REASON FOR VISIT Medicare AWV - Initial Visit-Carlos LOPES PLAN OF CARE Activity Details Follow Up 1 Year Reason: VITAL SIGNS Height 66 in 2018-03-17 Weight 131.8 lbs 2018-03-17 Temperature 97.7 degrees Fahrenheit 2018-03-17 Heart Rate 72 bpm 2018-03-17 Respiratory Rate 20 2018-03-17 BMI 21.27 kg/m2 2018-03-17 Blood pressure systolic 120 mmHg 2018-03-17 Blood pressure diastolic 74 mmHg 2018-03-17 MEDICATIONS Medication Instructions Dosage Frequency Start Date End Date Duration Status Lasix 40 mg Orally every 48 hours 1/2 tablet Active Diclofenac Sodium 1 Ophthalmic Four times a day 1 application to affected area 6h Active Toprol XL 25 MG Orally Once a day 1 tablet 24h Active Eliquis 5 mg Orally 2 times a day 1 tablet 12h Active Ferrous Sulfate 325 (65 Fe) MG Orally Once a day 1 tablet 24h Active Tramadol HCl 50 mg Orally every 6 hrs 2 tablet as needed 6h Nov, Active Macrobid 100 mg Orally every 12 hrs 1 capsule with food 12h February, February, 7 day(s) Active Flecainide Acetate 50 MG Orally twice a day 1 tablet 12h Active Cholecalciferol 1000 UNIT Orally Once a day 1 capsule 24h Active Tylenol Extra Strength 500 MG Orally every 6 hrs 1 tablet as needed 6h Active Wellbutrin SR 150 MG Orally Twice a day 1 tablet 12h Jan, 30 day(s) Active Omeprazole 20 mg Orally Once a day 1 capsule 24h Apr, 90 days Active Polyethylene Glycol 3350 Orally 2 times a day MIX 17 GRAMS IN 8 OZ OF SUITABLE LIQUID 12h 30 Active Xanax 1 MG Orally Twice a day as needed 1.5 tablets Jan, 30 days Active Docusate Sodium 50 MG Orally 2 times a day 1 capsule as needed 12h Active Levothyroxine Sodium 25 MCG TAKE ONE TABLET BY MOUTH ONCE DAILY 30 Active RESULTS No Results PROCEDURES Procedure Date Ordered Result Body Site [facility] VISIT IPPE/AWV March 17, 2018 ANNUAL KARENA VST; PERSNL PPS INIT March 17, 2018 PT TOBACCO SCREEN RCVD TLK March 17, 2018 FALL RISK ASSESSMENT DOCD March 17, 2018 SINGLE IMMUNIZATION ADMIN March 17, 2018 PCV 13 March 17, 2018 INSTRUCTIONS MEDICATIONS ADMINISTERED No Known Medications [...]
--- OUTSIDE RECORDS SUMMARY | 2019-01-24 07:35 | XMS REPORT ---
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 Name Role Phone CAREN PARMAR Unavailable PROBLEMS Type Condition ICD9-CM Code UAR06-OV Code Onset Dates Condition Status SNOMED Code Problem Paroxysmal atrial fibrillation I48.0 Active 983942102 Problem Generalized anxiety disorder F41.1 Active 10491985 Problem Gastro-esophageal reflux disease without esophagitis K21.9 Active 830207829 Problem Chronic kidney disease, stage 1 N18.1 Active 462878223 Problem Secondary hyperparathyroidism of renal origin N25.81 Active 77126219 Problem 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 Active 829472634 Problem MDD (major depressive disorder), recurrent, in partial remission F33.41 Active 41378636 Problem Acquired hypothyroidism E03.9 Active 402546297 Problem Chronic diastolic heart failure I50.32 Active 876112074 Problem Arthritis M19.90 Active 2538405 Problem Depression F32.9 Active 04919345 Problem Anxiety F41.9 Active 93190608 Problem Chronic kidney disease (CKD) stage G1/A1, glomerular filtration rate ( GFR) equal to or greater than 90 mL/min/1.73 square meter and albuminuria creatinine ratio less than 30 mg/g N18.1 Active 370706564 Problem Atrial fibrillation, unspecified type I48.91 Active 22607195 ALLERGIES Substance Reaction Event Type Date Status morphine vomiting Drug Allergy February, Active Adhesive Tape itching, rash Drug Allergy February, Active ENCOUNTERS Encounter Location Date Diagnosis [facility] [place] [address], [place] [address] May, Generalized anxiety disorder F41.1 [facility] [place] [id number], [place] [address] May, Chronic kidney disease, stage 1 N18.1 [facility] [place] [id number] [place] [address] 55511- 0695 May, Chronic kidney disease, stage 1 N18.1 and Chronic diastolic heart failure I50.32 [facility] [id number] [place] [address] 11810 -3376 Mar, Pain, dental K08.[address] [address]- [address] February, Medicare annual wellness visit, initial Z00.00 ; MDD (major depressive disorder), recurrent, in partial remission F33.41 ; Atrial fibrillation, unspecified type I48.91 ; Chronic diastolic heart failure I50.32 ; Secondary hyperparathyroidism of renal origin N25.81 ; Acquired hypothyroidism E03.9 ; Anxiety F41.9 ; Chronic kidney disease, stage 1 N18.1 and Encounter for immunization Z23 [address] [address] February, Closed fracture of one rib of right side, initial encounter S22.31XA ; Acute cystitis with hematuria N30.01 ; Right flank pain R10.9 and Rib pain on right side R07.[address] [address]- [address] Jan, Acquired hypothyroidism E03.9 ; 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 ; Chronic kidney disease (CKD) stage G1/A1, glomerular filtration rate (GFR) equal to or greater than 90 mL/min/1.73 square meter and albuminuria creatinine ratio less than 30 mg/g N18.1 ; Paroxysmal atrial fibrillation I48.0 ; Chronic diastolic heart failure I50.32 and Secondary hyperparathyroidism of renal origin N25.81 [address] [id number] [place] [address] 33205- 6231 Jan, Arthritis M19.[address] [address]96- 9595 Jan, Paroxysmal atrial fibrillation I48.[address] 46699- 7453 Jan, Paroxysmal atrial fibrillation I48.0 [facility] [place] [id number] [place] [address] 88892- 3672 Jan, [facility] [place] [address] 67[address]- 3646 Jan, Generalized anxiety disorder F41.1 [place] [address] 13170- 7762 Jan, Generalized anxiety disorder F41.1 and MDD (major depressive disorder), recurrent, in partial remission F33.41 [place] [address] 73265- 6210 Dec, Arthritis M19.90 [place] [address] 01466- 9470 Dec, [place] [address] 84559- 9609 Nov, Arthritis M19.90 ; Chronic kidney disease (CKD) stage G1/A1 , glomerular filtration rate (GFR) equal to or greater than 90 mL/min/1.73 square meter and albuminuria creatinine ratio less than 30 mg/g N18.1 and Anxiety F41.9 [place] [id number] [place] [address] 33766- 1230 Nov, [place] [id number] [place] [address] 29463- 4924 Nov, [facility] [place] [id number] [place] [address] 82923- 0300 Nov, [place] [id number] [place] [address] 01805- 7243 Nov, [facility] [place] [id number] [place] [address] 58467- 3167 Nov, [facility] [place] [address] 56110- 2197 Oct, Generalized anxiety disorder F41.1 [facility] [place] [address], [place] [address] Sep, Atrial fibrillation, unspecified type I48.91 [facility] [place] [id number] [place] [address] 48637- 0886 Sep, Generalized anxiety disorder F41.1 and MDD (major depressive disorder), recurrent, in partial remission F33.41 [facility] [place] [id number] [place] [address] 17808- 5510 Sep, [facility] [place] [id number] [place] [address] 12860- 2819 Aug, Generalized anxiety disorder F41.1 [facility] [place] [id number] [place] [address] 03547- 4728 Aug, [place] [id number] [place] [address] 18467- 5079 Aug, Paroxysmal atrial fibrillation I48.0 and Gastro-esophageal reflux disease without esophagitis K21.9 [facility] [place] [id number] [place] [address] 35680- 0998 Jul, [place] [id number] [place] [address] 99238- 6170 Jul, Generalized anxiety disorder F41.1 [facility] [place] [address] [place] [address] 10530- 7321 Jun, Generalized anxiety disorder F41.1 and MDD (major depressive disorder), recurrent, in partial remission F33.41 [facility] [place] [address] [place] [address] 95058- 2810 May, Recurrent major depressive disorder, in partial remission F33.41 [facility] [place] [id number] [place] [address] 83948- 8556 May, Anxiety F41.9 and Paroxysmal atrial fibrillation I48.0 [facility] [place] [id number] [place] [address] 66322- 8637 Apr, Generalized anxiety disorder F41.1 [facility] [place] [address], [place] [address] 119[address] Mar, [facility] [place] [id number] [place] [address] 69581- 6745 Mar, Generalized anxiety disorder F41.1 and MDD (major depressive disorder), recurrent, in partial remission F33.41 [facility] [place] [id number] [place] [address] 64788- 3636 February, Paroxysmal atrial fibrillation I48.0 and Anxiety F41.9 [facility] [place] [id number] [place] [address] 26679- 3123 February, MDD (major depressive disorder), recurrent, in partial remission F33.41 [facility] [place] [id number] [place] [address] 83915- 5371 Jan, [facility] [id number] [place] [address] 61557 -9809 Jan, [facility] [place] [id number] [place] [address] 11633- 4606 Jan, [facility] [place] [id number] [place] [address] 33995- 6336 Jan, [facility] [place] [address], [place] [address] Dec, [facility] [place] [id number] [place] [address] 92475- 9081 Dec, Generalized anxiety disorder F41.1 [facility] [place] [id number] [place] [address] 91512- 8592 Dec, Generalized anxiety disorder F41.1 and MDD (major depressive disorder), recurrent, in partial remission F33.41 [facility] [place] [address] [place] [address] 260264- 8615 Dec, [facility] [place] [id number] [place] [address] 75874- 5567 14 Dec, 2016 [facility] [place] [id number] [place] [address] 17507- 0052 Dec, [facility] [place] [id number] [place] [address] 90528- 0544 Nov, [facility] [place] [id number] [place] [address] 16753- 9236 Nov, Gastro-esophageal reflux disease without esophagitis K21.9 [facility] [place] [id number] [place] [address] 45564- 6055 10 Nov, 2016 Atrial fibrillation, unspecified type I48.91 and Anxiety F41.9 [place] [id number] [place] [address] 07153- 0140 Oct, [facility] [place] [id number] [place] [address] 11322- 8704 Oct, [facility] [place] [id number] [place] [address] 75371- 3390 Oct, Depression F32.9 and Atrial fibrillation, unspecified type I48.91 [place] [id number] [place] [address] 90157- 3010 Oct, [place] [id number] [place] [address] 98553- 1421 Sep, Depression F32.9 [facility] [place] [id number] [place] [address] 86673- 0839 Sep, Recurrent major depressive disorder, in partial remission F33.41 and Generalized anxiety disorder F41.1 [place] [id number] [place] [address] 89336- 0831 Sep, Paroxysmal atrial fibrillation I48.0 and Anxiety F41.9 [facility] [place] [id number] [place] [address] 04907- 8921 Sep, [facility] [place] [address] [place] [address]- 7480 Sep, [place] [id number] [place] [address] 84107- 0371 Sep, Gastro-esophageal reflux disease without esophagitis K21.9 [facility] [place] [id number] [place] [address] 03241- 5464 Aug, [place] [address] 95360- 7685 Aug, [place] [address] 60525- 7762 Aug, Atrial fibrillation, unspecified type I48.91 [place] [address] 15995- 0309 Jul, Major depressive disorder, recurrent, in partial remission F33.41 and Generalized anxiety disorder F41.1 [place] [address] 98961- 0711 Jul, [place] [id number] [place] [address] 59886- 7049 30 Jun, 2016 [place] [address] 42899- 1417 15 Jun, 2016 Bronchitis J40 and Memory loss R41.3 [place] [id number] [place] [address] 53925- 6364 14 Jun, 2016 Upper respiratory infection with cough and congestion J06.9 [place] [id number] [place] [address] 24253- 9428 Apr, [place] [id number] [place] [address] 95311- 4284 Apr, Major depressive disorder, recurrent, unspecified F33.9 ; Anxiety F41.9 and Psychophysiological insomnia F51.04 [place] [id number] [place] [address] 43053- 4702 Mar, [place] [id number] [place] [address] 51983- 9362 08 Mar, 2016 [facility] [place] [address] 65028- 0936 February, [facility] [place] [id number] [place] [address] 81905- 3776 Jan, Postural hypotension I95.1 [place] [address] 41511- 3918 Jan, Recurrent major depressive disorder in remission F33.40 ; Generalized anxiety disorder F41.1 and Psychophysiological insomnia F51.04 [place] [address] 60124- 2253 Dec, Generalized anxiety disorder F41.1 [facility] [id number] [place] [address] 59553 -4420 Dec, Unspecified fall, initial encounter W19.XXXA [place] [address] 93487- 1970 Nov, Depression F32.9 and Anxiety F41.9 [place] [address] 51624- 3439 Oct, [place] [id number] [place] [address] 82281- 4966 Oct, [place] [address] 10337- 7822 Oct, Chronic kidney disease, stage 3 (moderate) N18.3 [place] [id number] [place] [address] 88165- 8161 Oct, Head contusion S00.93XA ; Cervical strain S16.1XXA and Arthritis M19.90 [place] [id number] [place] [address] 34248- 5811 Oct, Chronic kidney disease 585.9 [place] [address] 68318- 3452 Oct, Chronic kidney disease 585.9 [facility] [place] [address], [place] [address]- 5009 Oct, [facility] [place] [id number] [place] [address] 54480- 4463 Sep, [facility] [place] [id number] [place] [address] 39708- 6016 Aug, Chronic kidney disease N18.9 [facility] [place] [id number] [place] [address] 72011- 9973 Aug, Chronic kidney disease (CKD) stage G1/A1, glomerular filtration rate (GFR) equal to or greater than 90 mL/min/1.73 square meter and albuminuria creatinine ratio less than 30 mg/g N18.1 and GERD (gastroesophageal reflux disease) K21.9 [place] [id number] [place] [address] 12390- 4518 Aug, [facility] [place] [id number] [place] [address] 05751- 2017 Jun, Generalized anxiety disorder 300.02 ; Major depression, recurrent 296.30 and Persistent 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 [place] [address] [place] [address] 13732- 9167 Jun, [place] [address] [place] [address] 58640- 7432 May, [facility] [place] [id number] [place] [address] 35441- 2678 May, Generalized anxiety disorder 300.02 and Depression, major, recurrent, in remission 296.35 [place] [id number] [place] [address] 24426- 0809 May, [facility] [place] [id number] [place] [address] 65301- 8525 May, [facility] [place] [id number] [place] [address] 56428- 0065 May, [facility] [place] [address] [place] [address] 83942- 3596 May, [facility] [place] [id number] [place] [address] 37331- 4666 May, Chronic kidney disease 585.9 [facility] [place] [id number] [place] [address] 268166- 6202 Apr, Chronic kidney disease 585.9 [facility] [place] [id number] [place] [address] 61541- 8274 Apr, [facility] [place] [id number] [place] [address] 782899- 3784 Apr, Arthropathy 716.90 ; Hyperlipidemia 272.4 ; Hypothyroidism 244.9 and GERD (gastroesophageal reflux disease) 530.81 [facility] [place] [id number] [place] [address] 44903- 0868 Apr, Arthropathy 716.90 ; Hypothyroidism 244.9 ; Hyperlipidemia 272.4 and GERD (gastroesophageal reflux disease) 530.81 [facility] [place] [id number] [place] [address] 11718- 8133 Mar, [facility] [place] [id number] [place] [address] 59256- 5298 February, Depression, major, recurrent, in remission 296.35 and Generalized anxiety disorder 300.02 [facility] [place] [address] [place] [address] 20499- 6381 February, [facility] [place] [id number] [place] [address] 07004- 6227 February, [facility] [place] [id number] [place] [address] 96504- 3109 Jan, [facility] [place] [id number] [place] [address] 57124- 6179 Jan, [facility] [place] [id number] [place] [address] 14885- 1386 Oct, [facility] [place] [facility] [address] [id number] [place] [address]- 6394 Oct, [facility] [place] [facility] [address] [id number] [place] [address]- 0140 Oct, [facility] [place] [facility] [address] [id number] [place] [address]- 2288 Oct, [facility] [place] [facility] [address] [id number] [place] [address]- 6013 Oct, [facility] [place] [facility] [address] [id number] [place] [address]- 0990 Oct, [facility] [place] [facility] [address] [id number] [place] [address]- 1114 Sep, [facility] [place] [facility] [address] [id number] [place] [address]- 7043 Sep, [facility] [place] [facility] [address] [id number] [place] [address]- 0296 Aug, [facility] [place] [facility] [address] [id number] [place] [address]- 0035 Aug, [facility] [place] [facility] [address] [id number] [place] [address]- 3663 Aug, [facility] [place] [facility] [address] [id number], [place] [address]- 9543 Aug, [facility] [place] [facility] [address] [id number], [place] [address]- 0412 Jul, [facility] [place] [facility] [address] [id number] [place] [address]- 3495 Jul, [facility] [place] [facility] [address] [id number], [place] [address]- 4148 Jul, [facility] [place] [facility] [address] [id number] [place] 6378 Jul, [facility] [place] [facility] [address] [id number] [place] [address]- 6306 29 Jun, 2013 [facility] [place] [facility] [address] [id number] [place] [address] 2546 Jun, [facility] [place] [facility] [address] [id number] [place] [address] 2546 Jun, [facility] [place] [facility] [address] [id number] [place] [address]- 8906 Jun, [facility] [place] [facility] [address] [id number] [place] [address] 2549 Jun, [facility] [place] [facility] [address] [id number] [place] [address]- 0001 Jun, [facility] [place] [facility] [address] [id number] [place] [address]- 4371 Jun, [facility] [place] [facility] [address] [id number] [place] [address]- 7064 May, [facility] [place] [facility] [address] [id number] [place] [address]- 6300 May, [facility] [place] [facility] [address] [id number] [place] [address]- 3695 May, [facility] [place] [facility] [address] [id number] [place] [address]- 2549 May, [facility] [place] [facility] [address] [id number] [place] [address]- 2541 Apr, [facility] [place] [facility] [address] [id number] [place] [address]- 2547 Apr, [facility] [place] [facility] [address] [id number] [place] [address]- 5504 Apr, [facility] [place] [facility] [address] [id number] [place] [address] Apr, [facility] [place] [facility] [address] [id number] [place] [address] Apr, [facility] [place] [facility] [address] [id number] [place] [address] Apr, [facility] [place] [facility] [address] [id number] [place] [address] Apr, [facility] [place] [facility] [address] [id number] [place] [address] Apr, [facility] [place] [facility] [address] [id number] [place] [address] Mar, [facility] [place] [facility] [address] [id number] [place] [address] Mar, [facility] [place] [facility] [address] [id number] [place] [address] Mar, [facility] [place] [facility] [address] [id number] [place] [address] Mar, [facility] [place] [facility] [address] [id number] [place] [address] Mar, [facility] [place] [facility] [address] [id number] [place] [address] Mar, [facility] [place] [facility] [address] [id number] [place] [address] Mar, [facility] [place] [facility] [address] [id number] [place] [address] Mar, [facility] [place] [facility] [address] [id number] [place] [address] Dec, [facility] [place] [facility] [address] [id number] [place] [address] Dec, [facility] [place] [facility] [address] [id number] [place] [address] Dec, [facility] [place] [facility] [address] [id number] [place] [address] Dec, [facility] [place] [facility] [address] [id number] [place] [address] Dec, [facility] [place] [facility] [address] [id number] [place] [address] Dec, [facility] [place] [facility] [address] [id number] [place] [address] Dec, [facility] [place] [facility] [address] [facility] [id number] [place] [address] Dec, [facility] [place] [facility] [address] [id number] [place] [address] Nov, [facility] [place] [facility] [address] [id number] [place] [address] Nov, [facility] [place] [facility] [address] [id number] [place] [address] Nov, [facility] [place] [facility] [address] [facility] [id number] [place] [address] Nov, [facility] [place] [facility] [address] [facility] [id number] [place] [address] Nov, [facility] [place] [facility] [address] [facility] [id number] [place] [address] Nov, [facility] [place] [facility] [address] [facility] [id number] [place] [address] Nov, [facility] [place] [facility] [address] [facility] [id number] [place] [address] Nov, [facility] [place] [facility] [address] [facility] [id number] [place] [address] Aug, [facility] [place] [facility] [address] [id number] [place] [address] Aug, [facility] [place] [facility] [address] [facility] [id number] [place] [address] Jul, [facility] [place] [facility] [address] [facility] [id number] [place] [address] Jul, [facility] [address] [id number] [place] [address] Jul, [facility] [place] [facility] [address] [id number] [place] [address] Jun, [facility] [place] [facility] [address] [id number] [place] [address] Jun, [facility] [place] [facility] [address] [id number] [place] [address] 18[address] Jun, [facility] [place] [facility] [address] [id number] [place] [address] 130[address] Jun, [facility] [place] [facility] [address] [id number] [place] [address] Jun, [facility] [place] [facility] [address] [id number] [place] [address] May, [facility] [place] [facility] [address] [id number] [place] [address] 8475 Apr, [facility] [place] [facility] [address] [id number] [place] [address] Apr, [facility] [place] [facility] [address] [id number] [place] [address] Apr, [facility] [place] [facility] [address] [id number] [place] [address] Mar, [facility] [place] [facility] [address] [id number], [place] [address] Mar, [facility] [place] [facility] [address] [id number] [place] [address] February, [facility] [place] [facility] [address] [id number] [place] [address] February, [facility] [place] [facility] [address] [id number], [place] [address] February, [facility] [place] [facility] [address] [id number], [place] [address] 14 Feb, 2013 [facility] [address] [id number] [place] [address] 23 Jan, 2013 [facility] [address] [id number] [place] [address] Jan, [facility] [address] [id number] [place] [address] 94[address] Jan, [facility] [address] [id number] [place] [address] 04 Jan, 2013 [facility] [address] [id number] [place] [address] 1672 20 Dec, 2012 [facility] [address] [id number] [place] [address] 1210 13 Dec, 2012 [facility] [id number] [place] [address] Dec, [facility] [address] [id number] [place] [address] Nov, [facility] [address] [id number] [place] [address] 15 Nov, 2012 [facility] [address] [id number] [place] [address] Nov, [facility] [address] [id number] [place] [address] 1478 Oct, [facility] [address] [id number] [place] [address] 7053 Oct, [facility] [address] [id number] [place] [address] Sep, [facility] [address] [id number] [place] [address] Sep, [facility] [address] [facility] [id number] [place] [address] Sep, [facility] [place] [facility] [address] [id number] [place] [address]291 Sep, [facility] [place] [facility] [address] [id number] [place] [address] 6[address] Sep, [facility] [place] [facility] [address] [id number] [place] [address] 7135 Aug, [facility] [place] [facility] [address] [id number] [place] [address]18 Aug, [facility] [place] [facility] [address] [id number] [place] [address] 1558 Aug, [facility] [place] [facility] [address] [id number] [place] [address] Aug, [facility] [place] [facility] [address] [id number] [place] [address] 8962 Aug, [facility] [place] [facility] [address] [id number] [place] [address] 1559 Aug, [facility] [place] [facility] [address] [id number] [place] [address] 7095 Jun, [facility] [place] [facility] [address] [id number] [place] [address] 7810 Jun, [facility] [place] [facility] [address] [id number] [place] [address] 1402 Jun, [facility] [place] [facility] [address] [id number] [place] [address] 1058 May, [facility] [place] [facility] [address] [id number] [place] [address] 8437 May, [facility] [place] [facility] [address] [id number] [place] [address] 7548 May, [facility] [place] [facility] [address] [id number] [place] [address]- 4777 May, [facility] [place] [facility] [address] [id number] [place] [address]- 3759 Apr, [facility] [place] [facility] [address] [id number] [place] [address] 5014 Mar, [facility] [place] [facility] [address] [id number] [place] [address] 4116 Mar, [facility] [place] [facility] [address] [id number] [place] [address] 4926 Mar, [facility] [place] [facility] [address] [id number] [place] [address] 8864 February, [facility] [place] [facility] [address] [id number] [place] [address] 7457 February, [facility] [place] [facility] [address] [id number] [place] [address]- 2316 February, [facility] [place] [facility] [address] [id number] [place] [address]- 8936 February, [facility] [place] [facility] [address] [id number] [place] [address]- 6678 Dec, [facility] [place] [facility] [address] [id number] [place] [address] Dec, [facility] [place] [facility] [address] [id number] [place] [address] 0791 Dec, [facility] [place] [facility] [address] [id number] [place] [address]- 8456 Dec, [facility] [place] [facility] [address] [id number] [place] [address]- 5646 Nov, [facility] [place] [facility] [address] [id number] [place] [address]- 1286 Nov, [facility] [place] [facility] [address] [id number] [place] [address]- 4486 Nov, [facility] [place] [facility] [address] [id number] [place] [address]- 6016 Nov, [facility] [place] [facility] [address] [id number] [place] [address]- 5642 Nov, [facility] [place] [facility] [address] [id number] [place] [address]- 2334 Oct, [facility] [place] [facility] [address] [id number] [place] [address]- 8506 Oct, [facility] [place] [facility] [address] [id number] [place] [address]- 3804 Oct, [facility] [place] [facility] [address] [id number] [place] [address]- 2276 Aug, [facility] [place] [facility] [address] [id number] [place] [address]- 2975 Aug, [facility] [place] [facility] [address] [id number] [place] [address]- 1698 Jul, [facility] [place] [facility] [address] [id number] [place] [address]- 2977 Jul, [facility] [place] [facility] [address] [id number] [place] [address]- 8454 Jul, [facility] [place] [facility] [address] [id number] [place] [address]- 2696 Jul, [facility] [place] [facility] [address] [id number] [place] [address]- 8738 Jul, [facility] [place] [facility] [address] [id number] [place] [address]- 7784 Jul, [facility] [place] [facility] [address] [id number] [place] [address]- 1475 Jul, [facility] [place] [facility] [address] [id number] [place] [address] Jul, [facility] [place] [facility] [address] [id number] [place] [address]- 2644 May, [facility] [place] [facility] [address] [id number] [place] [address]- 1402 February, [facility] [place] [address] [id number], [place] [address] Nov, [facility] [place] [id number], [place] [address] Sep, [facility] [place] [id number], [place] [address] Aug, [facility] [place] [address] [id number], [place] [address] Oct, [facility] [place] [id number], [place] [address] 7989 Jul, [facility] [place] [id number] [place] [address]28 Jun, [facility] [place] [id number], [place] [address] Mar, [facility] [place] [id number], [place] [address] 3654 Mar, [facility] [place] [id number], [place] [address] Nov, IMMUNIZATIONS No Known Immunizations SOCIAL HISTORY Never Assessed REASON FOR VISIT Pain (acute) ribs----DBennettRN, slipped on tour bus in [facility] last week PLAN OF CARE Activity Details Follow Up prn Reason: VITAL SIGNS Height 66 in 2018-03-13 Weight 129 lbs 2018-03-13 Temperature 97.7 degrees Fahrenheit 2018-03-13 Heart Rate 70 bpm 2018-03-13 Respiratory Rate 20 2018-03-13 BMI 20.82 kg/m2 2018-03-13 Blood pressure systolic 122 mmHg 2018-03-13 Blood pressure diastolic 64 mmHg 2018-03-13 MEDICATIONS Medication Instructions Dosage Frequency Start Date End Date Duration Status Lasix 40 mg Orally every 48 hours 1/2 tablet Active Eliquis 5 mg Orally 2 times a day 1 tablet 12h Active Docusate Sodium 50 MG Orally 2 times a day 1 capsule as needed 12h Active Toprol XL 25 MG Orally Once a day 1 tablet 24h Active Ferrous Sulfate 325 (65 Fe) MG Orally Once a day 1 tablet 24h Active Xanax 1 MG Orally Twice a day as needed 1.5 tablets Jan, 30 days Active Cholecalciferol 1000 UNIT Orally Once a day 1 capsule 24h Active Diclofenac Sodium 1 Ophthalmic Four times a day 1 application to affected area 6h Active Flecainide Acetate 50 MG Orally twice a day 1 tablet 12h Active Polyethylene Glycol 3350 Orally 2 times a day MIX 17 GRAMS IN 8 OZ OF SUITABLE LIQUID 12h 30 Active Tylenol Extra Strength 500 MG Orally every 6 hrs 1 tablet as needed 6h Active Omeprazole 20 mg Orally Once a day 1 capsule 24h Apr, 90 days Active Tramadol HCl 50 mg Orally every 6 hrs 2 tablet as needed 6h Nov, Active Wellbutrin SR 150 MG Orally Twice a day 1 tablet 12h Jan, 30 day(s) Active Macrobid 100 mg Orally every 12 hrs 1 capsule with food 12h February, February, 7 day(s) Active Levothyroxine Sodium 25 MCG TAKE ONE TABLET BY MOUTH ONCE DAILY 30 Active RESULTS No Results PROCEDURES Procedure Date Ordered Result Body Site URINALYSIS, AUTO, W/O SCOPE March 13, 2018 X-RAY EXAM CHEST 2 VIEWS March 13, 2018 LAB NOT BILLED BY [facility] [place] March 13, 2018 X-RAY EXAM ABDOMEN 1 VIEW March 13, 2018 [facility] VISIT ESTABLISHED PATIENT March 13, 2018 INSTRUCTIONS MEDICATIONS ADMINISTERED No Known Medications [...]
--- OUTSIDE RECORDS SUMMARY | 2019-01-24 07:36 | XMS REPORT ---
Author Author FRANCESCO PHILLIPS [facility] Address [address] [place] [address] Care Team Providers Care Water Project Manager Name Role Phone FRANCESCO PHILLIPS Unavailable PROBLEMS Type Condition ICD9-CM Code WQC65-DE Code Onset Dates Condition Status SNOMED Code Problem Paroxysmal atrial fibrillation I48.0 Active 114082845 Problem Generalized anxiety disorder F41.1 Active 49592855 Problem Gastro-esophageal reflux disease without esophagitis K21.9 Active 606227002 Problem Chronic kidney disease, stage 1 N18.1 Active 295392909 Problem Secondary hyperparathyroidism of renal origin N25.81 Active 49311484 Problem 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 Active 935318170 Problem MDD (major depressive disorder), recurrent, in partial remission F33.41 Active 00847868 Problem Acquired hypothyroidism E03.9 Active 493790235 Problem Chronic diastolic heart failure I50.32 Active 398745178 Problem Arthritis M19.90 Active 3260929 Problem Depression F32.9 Active 86234396 Problem Anxiety F41.9 Active 39602052 Problem Chronic kidney disease (CKD) stage G1/A1, glomerular filtration rate ( GFR) equal to or greater than 90 mL/min/1.73 square meter and albuminuria creatinine ratio less than 30 mg/g N18.1 Active 730433489 Problem Atrial fibrillation, unspecified type I48.91 Active 43018304 ALLERGIES Substance Reaction Event Type Date Status morphine vomiting Drug Allergy Jan, Active Adhesive Tape itching, rash Drug Allergy Jan, Active ENCOUNTERS Encounter Location Date Diagnosis [facility] [address] [facility] [id number] [address] May, Chronic kidney disease, stage 1 N18.1 [facility] [address] [facility] [id number] [address] May, Chronic kidney disease, stage 1 N18.1 and Chronic diastolic heart failure I50.32 [facility] [id number] [place] [address] 17954 -9321 Mar, Pain, dental K08.89 [place] [id number] [place] [address] 09044- 8690 February, Medicare annual wellness visit, initial Z00.00 ; MDD (major depressive disorder), recurrent, in partial remission F33.41 ; Atrial fibrillation, unspecified type I48.91 ; Chronic diastolic heart failure I50.32 ; Secondary hyperparathyroidism of renal origin N25.81 ; Acquired hypothyroidism E03.9 ; Anxiety F41.9 ; Chronic kidney disease, stage 1 N18.1 and Encounter for immunization Z23 [place] [address] [address] February, Closed fracture of one rib of right side, initial encounter S22.31XA ; Acute cystitis with hematuria N30.01 ; Right flank pain R10.9 and Rib pain on right side R07.81 [place] [id number] [place] [address] 44921- 8868 Jan, Acquired hypothyroidism E03.9 ; 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 ; Chronic kidney disease (CKD) stage G1/A1, glomerular filtration rate (GFR) equal to or greater than 90 mL/min/1.73 square meter and albuminuria creatinine ratio less than 30 mg/g N18.1 ; Paroxysmal atrial fibrillation I48.0 ; Chronic diastolic heart failure I50.32 and Secondary hyperparathyroidism of renal origin N25.81 [facility] [id number] [place] [address] 09048- 6989 Jan, Arthritis M19.90 [place] [address] 10560- 8192 Jan, Paroxysmal atrial fibrillation I48.0 [place] [address] 21770- 4727 Jan, Paroxysmal atrial fibrillation I48.0 [place] [address] 71471- 8928 Jan, [facility] [id number] [place] [address] 61702- 7946 Jan, Generalized anxiety disorder F41.1 [place] [address] 81996- 3762 Jan, Generalized anxiety disorder F41.1 and MDD (major depressive disorder), recurrent, in partial remission F33.41 [place] [address] 44878- 6074 Dec, Arthritis M19.90 [place] [address] 63825- 7038 Dec, [place] [address] 05658- 5602 Nov, Arthritis M19.90 ; Chronic kidney disease (CKD) stage G1/A1 , glomerular filtration rate (GFR) equal to or greater than 90 mL/min/1.73 square meter and albuminuria creatinine ratio less than 30 mg/g N18.1 and Anxiety F41.9 [place] [id number] [place] [address] 46883- 2334 Nov, [place] [address] 85696- 1358 Nov, [place] [id number] [place] [address] 97608- 5361 Nov, [place] [id number] [place] [address] 80989- 8504 Nov, [place] [id number] [place] [address] 64585- 6670 Nov, [place] [address] 81026- 0827 Oct, Generalized anxiety disorder F41.1 [place] [id number] [place] [address] 06805- 0103 Sep, Atrial fibrillation, unspecified type I48.91 [facility] [address] [address] Sep, Generalized anxiety disorder F41.1 and MDD (major depressive disorder), recurrent, in partial remission F33.41 [facility] [address] [address] 68[address] Sep, [facility] [id number] [place] [address] 40799- 9322 Aug, Generalized anxiety disorder F41.1 [place] [id number] [place] [address] 67921- 0396 Aug, [place] [id number] [place] [address] 14605- 3580 Aug, Paroxysmal atrial fibrillation I48.0 and Gastro-esophageal reflux disease without esophagitis K21.9 [place] [id number] [place] [address] 88037- 7914 Jul, [place] [id number] [place] [address] 41416- 9115 Jul, Generalized anxiety disorder F41.1 [place] [id number] [place] [address] 92211- 9943 Jun, Generalized anxiety disorder F41.1 and MDD (major depressive disorder), recurrent, in partial remission F33.41 [facility] [address] [address] 75[address] May, Recurrent major depressive disorder, in partial remission F33.41 [facility] [address] [address] 5[address] May, Anxiety F41.9 and Paroxysmal atrial fibrillation I48.0 [facility] [id number] [place] [address] 78416- 1236 Apr, Generalized anxiety disorder F41.1 [facility] [id number] [place] [address] 22151- 2307 Mar, [facility] [id number] [place] [address] 64156- 5225 Mar, Generalized anxiety disorder F41.1 and MDD (major depressive disorder), recurrent, in partial remission F33.41 [facility] [id number] [place] [address] 52457- 0625 February, Paroxysmal atrial fibrillation I48.0 and Anxiety F41.9 [facility] [id number] [place] [address] 39082- 2828 February, MDD (major depressive disorder), recurrent, in partial remission F33.41 [facility] [id number] [place] [address] 38460- 2282 Jan, [facility] [id number] [place] [address] 83312 -5959 Jan, [facility] [id number] [place] [address] 20222- 0561 Jan, [facility] [id number] [place] [address] 09332- 6299 Jan, [facility] [id number] [place] [address] 13706- 3438 Dec, [facility] [id number] [place] [address] 16687- 6870 Dec, Generalized anxiety disorder F41.1 [facility] [id number] [place] [address] 25567- 9948 Dec, Generalized anxiety disorder F41.1 and MDD (major depressive disorder), recurrent, in partial remission F33.41 [facility] [id number] [place] [address] 11985- 3124 Dec, [facility] [id number] [place] [address] 25618- 9915 Dec, [facility] [id number] [place] [address] 78407- 0959 Dec, [facility] [id number] [place] [address] 85886- 8952 Nov, [facility] [id number] [place] [address] 68048- 2171 Nov, Gastro-esophageal reflux disease without esophagitis K21.9 [facility] [id number] [place] [address] 73148- 6704 10 Nov, 2016 Atrial fibrillation, unspecified type I48.91 and Anxiety F41.9 [facility] [id number] [place] [address] 69521- 4932 Oct, [facility] [id number] [place] [address] 66780- 8516 Oct, [facility] [id number] [place] [address] 21149- 3082 Oct, Depression F32.9 and Atrial fibrillation, unspecified type I48.91 [facility] [id number] [place] [address] 17898- 4859 Oct, [facility] [id number] [place] [address] 06466- 8175 Sep, Depression F32.9 [place] [id number] [place] [address] 80730- 6240 Sep, Recurrent major depressive disorder, in partial remission F33.41 and Generalized anxiety disorder F41.1 [facility] [id number] [place] [address] 28588- 9677 Sep, Paroxysmal atrial fibrillation I48.0 and Anxiety F41.9 [facility] [id number] [place] [address] 96057- 6641 Sep, [facility] [id number] [place] [address] 81103- 6061 Sep, [facility] [address] 13337- 3865 Sep, Gastro-esophageal reflux disease without esophagitis K21.9 [place] [id number] [place] [address] 06415- 5208 Aug, [facility] [id number] [place] [address] 90970- 1718 Aug, [place] [address] 77165- 3718 Aug, Atrial fibrillation, unspecified type I48.91 [place] [address] 35688- 2770 Jul, Major depressive disorder, recurrent, in partial remission F33.41 and Generalized anxiety disorder F41.1 [place] [address] 31066- 8839 Jul, [place] [address] 50746- 7752 30 Jun, 2016 [place] [address] 94348- 0187 15 Jun, 2016 Bronchitis J40 and Memory loss R41.[address] 57421- 7153 14 Jun, 2016 Upper respiratory infection with cough and congestion J06.9 [place] [id number] [place] [address] 21397- 9007 Apr, [place] [address] 78434- 3922 Apr, Major depressive disorder, recurrent, unspecified F33.9 ; Anxiety F41.9 and Psychophysiological insomnia F51.04 [place] [id number] [place] [address] 23946- 0222 Mar, [place] [id number] [place] [address] 28416- 6764 Mar, [place] [address] [place] [address]- 0718 February, [facility] [id number] [place] [address] 10787- 1893 Jan, Postural hypotension I95.1 [facility] [address] 18648- 9116 14 Jan, 2016 Recurrent major depressive disorder in remission F33.40 ; Generalized anxiety disorder F41.1 and Psychophysiological insomnia F51.04 [facility] [address] 90915- 2412 Dec, Generalized anxiety disorder F41.1 [facility] [address] 37991 -9577 Dec, Unspecified fall, initial encounter W19.XXXA [place] [address] 00387- 0983 Nov, Depression F32.9 and Anxiety F41.9 [place] [id number] [place] [address] 61042- 1806 Oct, [place] [address] 45404- 9907 Oct, [place] [id number] [place] [address] 96420- 6320 Oct, Chronic kidney disease, stage 3 (moderate) N18.3 [place] [id number] [place] [address] 83329- 5884 Oct, Head contusion S00.93XA ; Cervical strain S16.1XXA and Arthritis M19.90 [place] [id number] [place] [address] 34694- 7376 Oct, Chronic kidney disease 585.9 [place] [id number] [place] [address] 25405- 5814 Oct, Chronic kidney disease 585.9 [place] [id number] [place] [address] 13878- 7924 Oct, [facility] [id number] [place] [address] 01839- 1790 Sep, [facility] [id number] [place] [address] 58461- 1273 Aug, Chronic kidney disease N18.9 [facility] [id number] [place] [address] 46304- 5947 Aug, Chronic kidney disease (CKD) stage G1/A1, glomerular filtration rate (GFR) equal to or greater than 90 mL/min/1.73 square meter and albuminuria creatinine ratio less than 30 mg/g N18.1 and GERD (gastroesophageal reflux disease) K21.9 [place] [id number] [place] [address] 35429- 0983 Aug, [facility] [id number] [place] [address] 75980- 1780 Jun, Generalized anxiety disorder 300.02 ; Major depression, recurrent 296.30 and Persistent 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 [facility] [id number] [place] [address] 78126- 8719 Jun, [facility] [id number] [place] [address] 02051- 8649 May, [facility] [id number] [place] [address] 54228- 6671 May, Generalized anxiety disorder 300.02 and Depression, major, recurrent, in remission 296.35 [facility] [id number] [place] [address] 60401- 3155 May, [facility] [id number] [place] [address] 33158- 2566 May, [facility] [id number] [place] [address] 62621- 5834 May, [facility] [id number] [place] [address] 84302- 7363 May, [facility] [address] [address]- 1937 May, Chronic kidney disease 585.9 [facility] [address] [place] [address] 48489- 1426 Apr, Chronic kidney disease 585.9 [facility] [id number] [place] [address] 85628- 5581 Apr, [facility] [id number] [place] [address] 645710- 6685 Apr, Arthropathy 716.90 ; Hyperlipidemia 272.4 ; Hypothyroidism 244.9 and GERD (gastroesophageal reflux disease) 530.81 [facility] [id number] [place] [address] 08656- 1876 Apr, Arthropathy 716.90 ; Hypothyroidism 244.9 ; Hyperlipidemia 272.4 and GERD (gastroesophageal reflux disease) 530.81 [facility] [id number] [place] [address] 55831- 9079 Mar, [facility] [id number] [place] [address] 692454- 7410 February, Depression, major, recurrent, in remission 296.35 and Generalized anxiety disorder 300.02 [facility] [address] [address]- 8325 February, [facility] [address] [place] [address] 48355- 3448 February, [facility] [address] [place] [address] 11787- 3713 Jan, [facility] [id number] [place] [address] 199721- 4166 Jan, [facility] [address] 8976 Oct, [facility] [id number] [place] [address] 435691- 0160 Oct, [facility] [place] [facility] [address] [id number] [place] [address]- 6465 Oct, [facility] [place] [facility] [address] [id number] [place] [address]- 7345 Oct, [facility] [place] [facility] [address] [id number] [place] [address]- 0023 Oct, [facility] [place] [facility] [address] [id number] [place] [address]- 0478 Oct, [facility] [place] [facility] [address] [id number] [place] [address]- 8262 Sep, [facility] [place] [facility] [address] [id number] [place] [address]- 8725 Sep, [facility] [place] [facility] [address] [id number] [place] [address]- 4646 Aug, [facility] [place] [facility] [address] [id number] [place] [address]- 9868 Aug, [facility] [place] [facility] [address] [id number] [place] [address]- 4983 Aug, [facility] [place] [facility] [address] [id number] [address]- 0878 Aug, [facility] [place] [facility] [address] [id number] [address]- 4189 Jul, [facility] [place] [facility] [address] [id number] [address]- 5210 Jul, [facility] [place] [facility] [address] [id number] [place] [address]- 3473 Jul, [facility] [place] [facility] [address] [id number] [place] [address]- 6062 Jul, [facility] [place] [facility] [address] [id number] [address]- 6881 Jun, [facility] [place] [facility] [address] [id number] [address]- 6221 Jun, [facility] [place] [facility] [address] [id number] [place] [address]- 0686 Jun, [facility] [place] [facility] [address] [id number] [place] [address]- 8066 Jun, [facility] [place] [facility] [address] [id number] [place] [address]- 9566 Jun, [facility] [place] [facility] [address] [id number] [place] [address]- 1991 Jun, [facility] [place] [facility] [address] [id number] [place] [address]- 7029 Jun, [facility] [place] [facility] [address] [id number] [place] [address]- 5712 May, [facility] [place] [facility] [address] [id number] [place] [address]- 4294 May, [facility] [place] [facility] [address] [id number] [place] [address]- 0971 May, [facility] [place] [facility] [address] [id number] [place] [address]- 9541 May, [facility] [place] [facility] [address] [id number] [place] [address]- 1652 Apr, [facility] [place] [facility] [address] [id number] [place] [address]- 3673 Apr, [facility] [place] [facility] [address] [id number] [place] [address]- 7512 Apr, [facility] [place] [facility] [address] [id number] [place] [address]- 9540 Apr, [facility] [place] [facility] [address] [id number] [place] [address]- 1267 Apr, [facility] [place] [facility] [address] [id number] [place] [address]- 9453 Apr, [facility] [place] [facility] [address] [id number] [place] [address]- 2597 Apr, [facility] [place] [facility] [address] [id number] [place] [address]- 7798 Apr, [facility] [place] [facility] [address] [id number] [place] [address]- 8707 Mar, [facility] [place] [facility] [address] [id number] [place] [address]- 4065 Mar, [facility] [place] [facility] [address] [id number] [place] [address]- 3519 Mar, [facility] [place] [facility] [address] [id number] [place] [address]- 6785 Mar, [facility] [place] [facility] [address] [id number] [place] [address]- 5526 Mar, [facility] [place] [facility] [address] [id number] [place] [address]- 4828 Mar, [facility] [place] [facility] [address] [id number] [place] [address]- 5301 Mar, [facility] [place] [facility] [address] [id number] [place] [address]- 8243 Mar, [facility] [place] [facility] [address] [id number] [place] [address]- 4648 Dec, [facility] [place] [facility] [address] [id number] [place] [address]- 0600 31 Dec, 2013 [facility] [place] [facility] [address] [id number] [place] [address]- 3225 31 Dec, 2013 [facility] [place] [facility] [address] [id number] [place] [address]- 5463 31 Dec, 2013 [facility] [place] [facility] [address] [id number] [place] [address]- 3461 18 Dec, 2013 [facility] [place] [facility] [address] [id number] [place] [address]- 9467 Dec, [facility] [place] [facility] [address] [id number] [place] [address]- 6359 Dec, [facility] [place] [facility] [address] [facility] [id number] [place] [address]- 3586 Dec, [facility] [place] [facility] [address] [facility] [id number] [place] [address]- 0374 Nov, [facility] [place] [facility] [address] [facility] [id number] [place] [address]- 1384 Nov, [facility] [place] [facility] [address] [facility] [id number] [place] [address]- 8854 Nov, [facility] [place] [facility] [address] [facility] [id number] [place] [address]- 8038 Nov, [facility] [place] [facility] [address] [facility] [id number] [place] [address]- 3094 Nov, [facility] [place] [facility] [address] [facility] [id number] [place] [address] Nov, [facility] [place] [facility] [address] [facility] [id number] [place] [address] Nov, [facility] [place] [facility] [address] [facility] [id number] [place] [address] Nov, [facility] [place] [facility] [address] [facility] [id number] [address] Aug, [facility] [place] [facility] [address] [facility] [id number] [address] Aug, [facility] [place] [facility] [address] [facility] [id number] [address] Jul, [facility] [place] [facility] [address] [facility] [id number] [address] Jul, [facility] [place] [facility] [address] [facility] [id number] [address] Jul, [facility] [place] [facility] [address] [id number] [place] [address] 30 Jun, 2012 [facility] [place] [facility] [address] [id number] [place] [address] 30 Jun, 2013 [facility] [place] [facility] [address] [id number] [place] [address] 24 Jun, 2013 [facility] [place] [facility] [address] [id number] [place] [address] Jun, [facility] [place] [facility] [address] [id number] [place] [address] Jun, [facility] [place] [facility] [address] [id number] [place] [address] May, [facility] [place] [facility] [address] [id number] [place] [address] Apr, [facility] [place] [facility] [address] [id number] [place] [address] Apr, [facility] [place] [facility] [address] [id number] [place] [address] Apr, [facility] [place] [facility] [address] [id number] [place] [address] Mar, [facility] [place] [facility] [address] [id number] [place] [address] Mar, [facility] [place] [facility] [address] [id number] [place] [address] February, [facility] [place] [facility] [address] [id number] [place] [address] February, [facility] [place] [facility] [address] [id number] [place] [address] February, [facility] [place] [facility] [address] [id number] [place] [address] February, [facility] [place] [facility] [address] [id number] [place] [address] 23 Jan, 2013 [facility] [address] [id number] [place] [address] Jan, [facility] [place] [facility] [address] [id number] [place] [address] 10 Jan, 2013 [facility] [place] [facility] [address] [id number] [place] [address] 04 Jan, 2013 [facility] [place] [facility] [address] [id number] [place] [address] 20 Dec, 2012 [facility] [place] [facility] [address] [id number] [place] [address] 13 Dec, 2012 [facility] [place] [facility] [address] [id number] [place] [address] Dec, [facility] [place] [facility] [address] [id number] [place] [address] Nov, [facility] [place] [facility] [address] [id number] [place] [address] 15 Nov, 2012 [facility] [place] [facility] [address] [id number] [place] [address] Nov, [facility] [place] [facility] [address] [id number] [place] [address] Oct, [facility] [place] [facility] [address] [id number] [place] [address] Oct, [facility] [place] [facility] [address] [id number] [place] [address] 24 Sep, 2012 [facility] [place] [facility] [address] [id number] [place] [address] Sep, [facility] [place] [facility] [address] [id number] [place] [address] Sep, [facility] [place] [facility] [address] [id number] [place] [address] Sep, [facility] [place] [facility] [address] [id number] [place] [address] Sep, [facility] [address] [id number] [place] [address] Aug, [facility] [place] [facility] [address] [id number] [place] [address] Aug, [facility] [address] [id number] [place] [address] Aug, [facility] [place] [facility] [address] [id number] [place] [address] Aug, [facility] [address] [id number] [place] [address] Aug, [facility] [address] [id number] [place] [address] 14[address] Aug, [facility] [place] [facility] [address] [id number] [place] [address] Jun, [facility] [address] [id number] [place] [address] Jun, [facility] [place] [facility] [address] [id number] [place] [address] Jun, [facility] [address] [id number] [place] [address] May, [facility] [place] [facility] [address] [id number] [place] [address] May, [facility] [place] [facility] [address] [id number] [place] [address] 40[address] May, [facility] [place] [facility] [address] [id number] [place] [address] May, [facility] [place] [facility] [address] [id number] [place] [address] Apr, [facility] [place] [facility] [address] [id number] [place] [address] Mar, [facility] [address] [id number] [place] [address] Mar, [facility] [place] [facility] [address] [id number] [place] [address] Mar, [facility] [place] [facility] [address] [id number] [place] [address] February, [facility] [place] [facility] [address] [id number] [place] [address] February, [facility] [place] [facility] [address] [id number] [place] [address] February, [facility] [place] [facility] [address] [id number] [place] [address] February, [facility] [place] [facility] [address] [id number] [place] [address] Dec, [facility] [place] [facility] [address] [id number] [place] [address] 75[address] Dec, [facility] [place] [facility] [address] [id number] [place] [address] Dec, [facility] [place] [facility] [address] [id number] [place] [address] 8936 Dec, [facility] [place] [facility] [address] [id number] [place] [address] 1436 Nov, [facility] [place] [facility] [address] [id number] [place] [address] Nov, [facility] [place] [facility] [address] [id number] [place] [address] Nov, [facility] [place] [facility] [address] [id number] [place] [address]756 Nov, [facility] [place] [facility] [address] [id number] [place] [address] Nov, [facility] [place] [facility] [address] [id number] [place] [address] 4976 Oct, [facility] [place] [facility] [address] [id number] [place] [address]148 Oct, [facility] [place] [facility] [address] [id number] [place] [address] 4[address] Oct, [facility] [place] [facility] [address] [id number] [place] [address] 5969 Aug, [facility] [place] [facility] [address] [id number] [place] [address] Aug, [facility] [place] [facility] [address] [id number] [place] [address] Jul, [facility] [place] [facility] [address] [id number] [place] [address] Jul, [facility] [place] [facility] [address] [id number] [place] [address] 4585 Jul, [facility] [place] [facility] [address] [id number] [place] [address] 4[address] Jul, [facility] [place] [facility] [address] [id number] [place] [address] Jul, [facility] [place] [facility] [address] [id number] [place] [address] 287[address] Jul, [facility] [place] [facility] [address] [id number] [place] [address] 9461 Jul, [facility] [place] [facility] [address] [id number] [place] [address] 0435 Jul, [facility] [place] [facility] [address] [id number] [place] [address] 7022 May, [facility] [place] [facility] [address] [id number] [place] [address] February, [facility] [place] [facility] [address] [id number] [place] [address] Nov, [facility] [id number] [address] Sep, [facility] [id number] [address] Aug, [facility] [id number] [address] Oct, [facility] [id number] [address] Jul, [facility] [id number] [address] Jun, [facility] [id number] [address] Mar, [facility] [id number] [address] Mar, [facility] [id number] [address] Nov, IMMUNIZATIONS No Known Immunizations SOCIAL HISTORY Never Assessed REASON FOR VISIT Medication Mgmt -TX PLAN OF CARE Activity Details Follow Up 3 Months Reason: VITAL SIGNS Height 66 in 2018-02-17 Weight 130 lbs 2018-02-17 Temperature 97.4 degrees Fahrenheit 2018-02-17 Heart Rate 66 bpm 2018-02-17 Respiratory Rate 20 2018-02-17 BMI 20.98 kg/m2 2018-02-17 Blood pressure systolic 110 mmHg 2018-02-17 Blood pressure diastolic 66 mmHg 2018-02-17 MEDICATIONS Medication Instructions Dosage Frequency Start Date End Date Duration Status Lasix 40 mg Orally every 48 hours 1/2 tablet Active Cholecalciferol 1000 UNIT Orally Once a day 1 capsule 24h Active Eliquis 5 mg Orally 2 times a day 1 tablet 12h Active Omeprazole 20 mg Orally Once a day 1 capsule 24h Apr, 90 days Active Ferrous Sulfate 325 (65 Fe) MG Orally Once a day 1 tablet 24h Active Levothyroxine Sodium 25 MCG TAKE ONE TABLET BY MOUTH ONCE DAILY 30 Active Tramadol HCl 50 mg Orally every 6 hrs 2 tablet as needed 6h Nov, Active Flecainide Acetate 50 MG Orally twice a day 1 tablet 12h Active Tylenol Extra Strength 500 MG Orally every 6 hrs 1 tablet as needed 6h Active MiraLax - Orally Once a day 1 packet mixed with 8 ounces of fluid 24h Active Toprol XL 25 MG Orally Once a day 1 tablet 24h Active Wellbutrin SR 150 MG Orally Twice a day 1 tablet 12h Jan, 30 day(s) Active Polyethylene Glycol 3350 Orally 2 times a day MIX 17 GRAMS IN 8 OZ OF SUITABLE LIQUID 12h 30 Active Aspir-Low 81 MG Orally three times weekly 1 tablet Active Diclofenac Sodium 1 Ophthalmic Four times a day 1 application to affected area 6h Active Docusate Sodium 50 MG Orally 2 times a day 1 capsule as needed 12h Active Xanax 1 MG Orally Twice a day as needed 1.5 tablets Jan, 30 days Active RESULTS Name Result Date Reference Range TSH 2018-02-17 TSH 3.15 0.40-4.50 CBC 2018-02-17 WHITE BLOOD CELL COUNT 6.2 3.8-10.8 RED BLOOD CELL COUNT 4.25 3.80-5.10 HEMOGLOBIN 13.2 11.7-15.5 HEMATOCRIT 41.0 35.0-45.0 MCV 96.5 80.0-100.0 MCH 31.1 27.0-33.0 MCHC 32.2 32.0-36.0 RDW 12.8 11.0-15.0 PLATELET COUNT 195 140-400 MPV 10.6 7.5-12.5 ABSOLUTE NEUTROPHILS 3181 1921-5858 ABSOLUTE LYMPHOCYTES 2350 850-3900 ABSOLUTE MONOCYTES 446 200-950 ABSOLUTE EOSINOPHILS 161 15-500 ABSOLUTE BASOPHILS 62 0-200 NEUTROPHILS 51.3 LYMPHOCYTES 37.9 MONOCYTES 7.2 EOSINOPHILS 2.6 BASOPHILS 1.0 PROCEDURES Procedure Date Ordered Result Body [facility] February 17, 2018 VENIPUNCT, ROUTINE* February 17, 2018 [facility] VISIT ESTABLISHED PATIENT February 17, 2018 INSTRUCTIONS MEDICATIONS ADMINISTERED No Known [...] Nov 2017 [facility]ization History [facility], shortness [facility] breath Aug 2016 Hospitalization History post left hip surgery oct 2017
--- OUTSIDE RECORDS SUMMARY | 2019-01-24 07:37 | XMS REPORT ---
Author Author FRANCESCO PHILLIPS [facility] Address [address] [place] [address] Care Team Providers Care Energy Sales Broker Name Role Phone FRANCESCO PHILLIPS Unavailable PROBLEMS Type Condition ICD9-CM Code [id number] Code Onset Dates Condition Status SNOMED Code Problem Paroxysmal atrial fibrillation I48.0 Active 043684129 Problem Generalized anxiety disorder F41.1 Active 20336452 Problem Gastro-esophageal reflux disease without esophagitis K21.9 Active 089320973 Problem Chronic kidney disease, stage 1 N18.1 Active 597237338 Problem Secondary hyperparathyroidism of renal origin N25.81 Active 56318767 Problem 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 Active 780304641 Problem MDD (major depressive disorder), recurrent, in partial remission F33.41 Active 93729343 Problem Acquired hypothyroidism E03.9 Active 323411629 Problem Chronic diastolic heart failure I50.32 Active 015169523 Problem Arthritis M19.90 Active 5894075 Problem Depression F32.9 Active 65004137 Problem Anxiety F41.9 Active 60974632 Problem Chronic kidney disease (CKD) stage G1/A1, glomerular filtration rate ( GFR) equal to or greater than 90 mL/min/1.73 square meter and albuminuria creatinine ratio less than 30 mg/g N18.1 Active 460700111 Problem Atrial fibrillation, unspecified type I48.91 Active 00594347 ALLERGIES No Information ENCOUNTERS Encounter Location Date Diagnosis [facility] [address] [facility] [id number] [address] Mar, Pain, dental K08.89 [facility] [address] [id number] [place] [address] February, Medicare annual wellness visit, initial Z00.00 ; MDD (major depressive disorder), recurrent, in partial remission F33.41 ; Atrial fibrillation, unspecified type I48.91 ; Chronic diastolic heart failure I50.32 ; Secondary hyperparathyroidism of renal origin N25.81 ; Acquired hypothyroidism E03.9 ; Anxiety F41.9 ; Chronic kidney disease, stage 1 N18.1 and Encounter for immunization Z23 [place] [address] [address] February, Closed fracture of one rib of right side, initial encounter S22.31XA ; Acute cystitis with hematuria N30.01 ; Right flank pain R10.9 and Rib pain on right side R07.81 [place] [address] [address] Jan, Acquired hypothyroidism E03.9 ; 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 ; Chronic kidney disease (CKD) stage G1/A1, glomerular filtration rate (GFR) equal to or greater than 90 mL/min/1.73 square meter and albuminuria creatinine ratio less than 30 mg/g N18.1 ; Paroxysmal atrial fibrillation I48.0 ; Chronic diastolic heart failure I50.32 and Secondary hyperparathyroidism of renal origin N25.81 [place] [address] [address] Jan, Arthritis M19.90 [place] [address] [address]- [address] Jan, Paroxysmal atrial fibrillation I48.0 [place] [address] 67[address]- 7[address] Jan, Paroxysmal atrial fibrillation I48.0 [place] [address] 53709- 8[address] Jan, [place] [address] 21077- 75[address] Jan, Generalized anxiety disorder F41.1 [place] [address] 23[address]- 0313 Jan, Generalized anxiety disorder F41.1 and MDD (major depressive disorder), recurrent, in partial remission F33.[address] [place] [address] Dec, [address] [facility] [address] [place] [id number] [place] [address] 22375- 8973 Dec, [facility] [address] [place] [id number] [place] [address] 95493- 3552 Nov, Arthritis M19.90 ; Chronic kidney disease (CKD) stage G1/A1 , glomerular filtration rate (GFR) equal to or greater than 90 mL/min/1.73 square meter and albuminuria creatinine ratio less than 30 mg/g N18.1 and Anxiety F41.9 [place] [address] [place] [id number] [place] [address] 08773- 5723 Nov, [facility] [address] [address]666 Nov, [facility] [address] 64771- 6827 Nov, [facility] [address] [place] [id number] [place] [address] 51153- 28[address] Nov, [facility] [address] [place] [id number] [place] [address] 54385- 7045 Nov, [facility] [address] [place] [id number] [place] [address] 26092- 9911 Oct, Generalized anxiety disorder F41.1 [facility] [address] [place] [id number] [place] [address] 01118- 2598 Sep, Atrial fibrillation, unspecified type I48.91 [facility] [address] [place] [id number] [place] [address] 23393- 7766 Sep, Generalized anxiety disorder F41.1 and MDD (major depressive disorder), recurrent, in partial remission F33.41 [place] [address] [place] [id number] [place] [address] 91677- 6793 Sep, [facility] [address] [place] [id number] [place] [address] 98615- 4664 Aug, Generalized anxiety disorder F41.1 [facility] [address] [place] [address] 07345- 1433 Aug, [facility] [address] [place] [id number] [place] [address] 31608- 4799 Aug, Paroxysmal atrial fibrillation I48.0 and Gastro-esophageal reflux disease without esophagitis K21.9 [facility] [address] [place] [id number] [place] [address] 35240- 8788 Jul, [facility] [address] [place] [id number] [place] [address] 94687- 6157 Jul, Generalized anxiety disorder F41.1 [place] [address] [place] [id number] [place] [address] 36821- 9875 Jun, Generalized anxiety disorder F41.1 and MDD (major depressive disorder), recurrent, in partial remission F33.41 [facility] [address] [place] [id number] [place] [address] 98091- 1666 May, Recurrent major depressive disorder, in partial remission F33.41 [facility] [address] [place] [id number] [place] [address] 43465- 8228 May, Anxiety F41.9 and Paroxysmal atrial fibrillation I48.0 [place] [address] [place] [address] 90292- 6741 Apr, Generalized anxiety disorder F41.1 [facility] [address] [place] [address] 20165- 1029 Mar, [facility] [address] [place] [address] 91189- 3752 Mar, Generalized anxiety disorder F41.1 and MDD (major depressive disorder), recurrent, in partial remission F33.41 [facility] [address] [place] [address] 40771- 0070 February, Paroxysmal atrial fibrillation I48.[address] [facility] [address] [id number] [address] February, MDD (major depressive disorder), recurrent, in partial remission F33.41 [facility] [address] [address] Jan, [facility] [address] [address] Jan, [facility] [address] [place] [id number] [place] [address] 19649- 0626 Jan, [facility] [address] [place] [address] 01531- 9939 Jan, [facility] [address] [place] [id number] [place] [address] 26557- 0754 Dec, [facility] [address] [place] [id number] [place] [address] 36194- 8746 Dec, Generalized anxiety disorder F41.1 [facility] [address] [place] [id number] [place] [address] 28458- 2398 Dec, Generalized anxiety disorder F41.1 and MDD (major depressive disorder), recurrent, in partial remission F33.41 [facility] [address] [address] Dec, [facility] [address] [address] Dec, [facility] [address] [address] Dec, [facility] [address] [address] Nov, [facility] [address] [place] [id number] [place] [address] 03876- 2577 Nov, Gastro-esophageal reflux disease without esophagitis K21.9 [facility] [address] [address] 8867 Nov, Atrial fibrillation, unspecified type I48.[address] [facility] [address] [place] [id number] [place] [address] 66614- 3611 Oct, [facility] [address] [place] [id number] [place] [address] 92409- 7130 Oct, [facility] [address] [place] [id number] [place] [address] 47108- 6094 Oct, Depression F32.9 and Atrial fibrillation, unspecified type I48.91 [facility] [address] [place] [id number] [place] [address] 97479- 0999 Oct, [facility] [address] [place] [id number] [place] [address] 94943- 6027 Sep, Depression F32.9 [facility] [address] [place] [id number] [place] [address] 64581- 7030 Sep, Recurrent major depressive disorder, in partial remission F33.41 and Generalized anxiety disorder F41.1 [place] [address] [place] [id number] [place] [address] 92933- 2287 Sep, Paroxysmal atrial fibrillation I48.[address] [facility] [address] [place] [id number] [place] [address] 77876- 2227 Sep, [facility] [address] [place] [id number] [place] [address] 46494- 6066 Sep, [facility] [address] [place] [id number] [place] [address] 88000- 7743 Sep, Gastro-esophageal reflux disease without esophagitis K21.9 [facility] [address] [place] [id number] [place] [address] 37233- 3239 Aug, [facility] [address] [place] [id number] [place] [address] 20088- 6734 Aug, [facility] [address] [place] [id number] [place] [address] 60539- 6629 Aug, Atrial fibrillation, unspecified type I48.91 [place] [address] [place] [address] 19216- 7640 Jul, Major depressive disorder, recurrent, in partial remission F33.41 and Generalized anxiety disorder F41.1 [place] [address] [place] [id number] [place] [address] 71628- 9911 Jul, [place] [address] [place] [id number] [place] [address] 49684- 8842 30 Jun, 2016 [place] [address] [place] [id number] [place] [address] 33019- 0117 15 Jun, 2016 Bronchitis J40 and Memory loss R41.3 [place] [address] [place] [id number] [place] [address] 40848- 9745 14 Jun, 2016 Upper respiratory infection with cough and congestion J06.9 [place] [address] [place] [id number] [place] [address] 84526- 7936 Apr, [place] [address] [place] [id number] [place] [address] 84371- 5405 Apr, Major depressive disorder, recurrent, unspecified F33.9 ; Anxiety F41.9 and Psychophysiological insomnia F51.04 [place] [address] [place] [id number] [place] [address] 44167- 0245 Mar, [place] [address] [place] [id number] [place] [address] 83362- 8487 Mar, [place] [address] [place] [id number] [place] [address] 28679- 9780 February, [place] [address] [place] [id number] [place] [address] 15828- 5579 Jan, Postural hypotension I95.1 [facility] [address] [place] [address] 14919- 7733 14 Jan, 2016 Recurrent major depressive disorder in remission F33.40 ; Generalized anxiety disorder F41.1 and Psychophysiological insomnia F51.04 [place] [address] [place] [address] 90568- 9666 14 Dec, 2015 Generalized anxiety disorder F41.1 [facility] [address] [place] [id number] [place] [address] 55866 -9372 11 Dec, 2015 Unspecified fall, initial encounter W19.XXXA [facility] [address] [place] [id number] [place] [address] 56863- 1900 Nov, Depression F32.[address] [facility] [address] [place] [id number] [place] [address] 99261- 3911 Oct, [place] [address] 99886- 2363 Oct, [facility] [address] [place] [id number] [place] [address] 44025- 9745 Oct, Chronic kidney disease, stage 3 (moderate) N18.3 [place] [address] [place] [id number] [place] [address] 66316- 1745 Oct, Head contusion S00.93XA ; Cervical strain S16.1XXA and Arthritis M19.90 [place] [address] [place] [id number] [place] [address] 77366- 7866 Oct, Chronic kidney disease 585.9 [place] [address] [place] [id number] [place] [address] 19586- 0547 Oct, Chronic kidney disease 585.9 [place] [address] [place] [id number] [place] [address] 21492- 7038 Oct, [place] [address] [place] [id number] [place] [address] 24137- 6225 Sep, [place] [address] [place] [id number] [place] [address] 81734- 0904 Aug, Chronic kidney disease N18.9 [place] [address] [place] [id number] [place] [address] 64682- 3823 Aug, Chronic kidney disease (CKD) stage G1/A1, glomerular filtration rate (GFR) equal to or greater than 90 mL/min/1.73 square meter and albuminuria creatinine ratio less than 30 mg/g N18.1 and GERD (gastroesophageal reflux disease) K21.9 [facility] [address] [place] [id number] [place] [address] 09606- 7062 Aug, 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 [address] 62887- 2390 Jun, [facility] [address] 38563- 1502 May, [facility] [address] 06766- 6025 May, Generalized anxiety disorder 300.02 and Depression, major, recurrent, in remission 296.35 [facility] [address] [place] [id number] [place] [address] 10635- 8306 May, [facility] [address] 93889- 0563 May, [facility] [address] [place] [id number] [place] [address] 38343- 5240 May, [facility] [address] [place] [id number] [place] [address] 38904- 1110 May, [facility] [address] [place] [id number] [place] [address] 11845- 1211 May, Chronic kidney disease 585.9 [facility] [address] 37701- 0504 Apr, Chronic kidney disease 585.9 [facility] [address] [place] [id number] [place] [address] 18286- 4509 Apr, [facility] [address] [place] [id number] [address]- 1313 Apr, Arthropathy 716.90 ; Hyperlipidemia 272.4 ; Hypothyroidism 244.9 and GERD (gastroesophageal reflux disease) 530.81 [facility] [address] [place] [id number] [place] [address] 07525- 7147 Apr, Arthropathy 716.90 ; Hypothyroidism 244.9 ; Hyperlipidemia 272.4 and GERD (gastroesophageal reflux disease) 530.81 [facility] [address] [place] [address] [id number] [place] [address] 41347- 6696 17 Mar, 2015 [facility] [address] 506826- 2292 February, Depression, major, recurrent, in remission 296.35 and Generalized anxiety disorder 300.02 [facility] [address] [place] [id number] [place] [address] 19575- 0512 February, [facility] [address] [place] [id number] [place] [address] 41092- 1858 February, [facility] [address] [place] [id number] [place] [address] 52937- 4069 Jan, [facility] [address] [place] [id number] [place] [address] 98081- 9774 Jan, [facility] [address] [place] [address] [id number] [place] [address] 87194- 1061 Oct, [facility] [address] [place] [id number] [place] [address] 72458- 5208 Oct, [facility] [address] [place] [id number] [place] [address] 35647- 5658 Oct, [facility] [address] [place] [id number] [place] [address] 69246- 1386 Oct, [facility] [address] [place] [id number] [place] [address] 774513- 3075 Oct, [facility] [address] [place] [address] [id number] [place] [address] 46821- 6895 Oct, [facility] [place] [facility] [address] [id number] [place] [address]- 6203 Sep, [facility] [place] [facility] [address] [id number] [place] [address]- 3779 Sep, [facility] [place] [facility] [address] [id number] [place] [address]- 4914 Aug, [facility] [place] [facility] [address] [id number] [place] [address]- 9728 Aug, [facility] [place] [facility] [address] [id number] [place] [address]- 7228 Aug, [facility] [place] [facility] [address] [id number] [place] [address]- 1961 Aug, [facility] [place] [facility] [address] [id number] [place] [address]- 2764 Jul, [facility] [place] [facility] [address] [id number] [place] [address]- 8469 Jul, [facility] [place] [facility] [address] [id number] [place] [address]- 8119 Jul, [facility] [place] [facility] [address] [id number] [place] [address]- 7628 Jul, [facility] [place] [facility] [address] [id number] [place] [address]- 2756 29 Jun, 2014 [facility] [place] [facility] [address] [id number] [place] [address]- 9896 22 Jun, 2014 [facility] [place] [facility] [address] [id number] [place] [address]- 0876 22 Jun, 2014 [facility] [place] [facility] [address] [id number] [place] [address]- 2452 10 Jun, 2014 [facility] [place] [facility] [address] [id number] [place] [address]- 9709 10 Jun, 2014 [facility] [place] [facility] [address] [id number] [place] [address]- 8119 Jun, [facility] [place] [facility] [address] [id number] [place] [address]- 8046 Jun, [facility] [place] [facility] [address] [id number] [place] [address]- 1771 May, [facility] [place] [facility] [address] [id number] [place] [address]- 5718 May, [facility] [place] [facility] [address] [id number] [place] [address]- 5778 May, [facility] [place] [facility] [address] [id number] [place] [address]- 3270 May, [facility] [place] [facility] [address] [id number] [place] [address]- 0825 Apr, [facility] [place] [facility] [address] [id number] [place] [address]- 2483 Apr, [facility] [place] [facility] [address] [id number] [place] [address]- 8149 Apr, [facility] [place] [facility] [address] [id number] [place] [address]- 9790 Apr, [facility] [place] [facility] [address] [id number] [place] [address]- 6973 Apr, [facility] [place] [facility] [address] [id number] [place] [address]- 8408 Apr, [facility] [place] [facility] [address] [id number] [place] [address]- 8309 Apr, [facility] [place] [facility] [address] [id number] [place] [address]- 4110 Apr, [facility] [place] [facility] [address] [id number] [place] [address]- 6339 Mar, [facility] [place] [facility] [address] [id number] [place] 1330 Mar, [facility] [place] [facility] [address] [id number] [place] [address]- 4243 Mar, [facility] [place] [facility] [address] [id number] [place] [address]- 7290 Mar, [facility] [place] [facility] [address] [id number] [place] [address]- 0737 Mar, [facility] [place] [facility] [address] [id number] [place] [address]- 3703 Mar, [facility] [place] [facility] [address] [id number] [place] [address]- 7750 Mar, [facility] [place] [facility] [address] [id number] [place] [address]- 0450 Mar, [facility] [place] [facility] [address] [id number] [place] [address]- 5112 Dec, [facility] [place] [facility] [address] [id number] [place] [address]- 7907 Dec, [facility] [place] [facility] [address] [id number] [place] [address]- 8770 Dec, [facility] [place] [facility] [address] [id number] [place] [address]- 0117 Dec, [facility] [place] [facility] [address] [id number] [place] [address]- 7176 Dec, [facility] [place] [facility] [address] [id number] [place] [address]- 8405 Dec, [facility] [place] [facility] [address] [id number] [place] [address]- 2067 Dec, [facility] [place] [facility] [address] [id number] [place] [address]- 5196 Dec, [facility] [place] [facility] [address] [id number] [place] [address]- 9022 Nov, [facility] [place] [facility] [address] [id number] [place] [address]- 8769 26 Nov, 2013 [facility] [place] [facility] [address] [id number] [place] [address]- 5066 Nov, 2013 [facility] [place] [facility] [address] [id number] [place] [address] 2546 Nov, 2013 [facility] [place] [facility] [address] [id number] [place] [address] 2546 14 Nov, 2013 [facility] [place] [facility] [address] [id number] [place] [address]- 2546 Nov, 2013 [facility] [place] [facility] [address] [id number] [place] [address]- 2848 Nov, 2013 [facility] [place] [facility] [address] [facility] [id number] [place] 6990 Nov, [facility] [place] [facility] [address] [facility] [id number] [place] [address]- 9392 Aug, [facility] [place] [facility] [address] [id number] [place] [address] Aug, [facility] [place] [facility] [address] [id number] [place] [address] 18 Jul, 2013 [facility] [place] [facility] [address] [id number] [place] [address] 18 Jul, 2013 [facility] [place] [facility] [address] [id number] [place] [address] 02 Jul, 2013 [facility] [place] [facility] [address] [id number] [place] [address]46 30 Jun, 2013 [facility] [place] [facility] [address] [id number] [place] [address]46 30 Jun, 2013 [facility] [place] [facility] [address] [id number] [place] [address]46 24 Jun, 2013 [facility] [place] [facility] [address] [id number] [place] [address] 2546 Jun, [facility] [address] [id number] [place] [address] Jun, [facility] [place] [facility] [address] [id number] [place] [address] May, [facility] [place] [facility] [address] [id number] [place] [address] Apr, [facility] [place] [facility] [address] [id number] [place] [address] Apr, [facility] [address] [id number] [place] [address] Apr, [facility] [place] [facility] [address] [id number] [place] [address] Mar, [facility] [place] [facility] [address] [id number] [place] [address] Mar, [facility] [address] [id number] [place] [address] February, [facility] [place] [facility] [address] [id number] [place] [address] February, [facility] [place] [facility] [address] [id number] [place] [address]66 February, [facility] [place] [facility] [address] [id number] [place] [address] February, [facility] [place] [facility] [address] [id number] [place] [address] Jan, [facility] [place] [facility] [address] [id number] [place] [address] Jan, [facility] [place] [facility] [address] [id number] [place] [address] Jan, [facility] [place] [facility] [address] [id number] [place] [address] Jan, [facility] [place] [facility] [address] [id number] [place] [address] 20 Dec, 2012 [facility] [address] [id number] [place] [address] 13 Dec, 2012 [facility] [place] [facility] [address] [id number] [place] [address] Dec, [facility] [place] [facility] [address] [id number] [place] [address] 22 Nov, 2012 [facility] [place] [facility] [address] [id number] [place] [address] 15 Nov, 2012 [facility] [place] [facility] [address] [id number] [place] [address] Nov, [facility] [place] [facility] [address] [id number] [place] [address] Oct, [facility] [address] [id number] [place] [address] Oct, [facility] [place] [facility] [address] [id number] [place] [address] Sep, [facility] [place] [facility] [address] [id number] [place] [address] Sep, [facility] [place] [facility] [address] [id number] [place] [address] Sep, [facility] [place] [facility] [address] [address] [id number] [place] [address] Sep, [facility] [place] [facility] [address] [id number] [place] [address] Sep, [facility] [place] [facility] [address] [id number] [place] [address] Aug, [facility] [place] [facility] [address] [id number] [place] [address] 2011 Aug, [facility] [place] [facility] [address] [id number] [place] [address] Aug, [facility] [place] [facility] [address] [id number] [place] [address] Aug, [facility] [place] [facility] [address] [id number] [place] [address] Aug, [facility] [place] [facility] [address] [id number] [place] [address] Aug, [facility] [place] [facility] [address] [id number] [place] [address] Jun, [facility] [place] [facility] [address] [id number] [place] [address] Jun, [facility] [place] [facility] [address] [id number] [place] [address] Jun, [facility] [place] [facility] [address] [id number] [place] [address] May, [facility] [place] [facility] [address] [id number] [place] [address] May, [facility] [place] [facility] [address] [id number] [place] [address] May, [facility] [place] [facility] [address] [id number] [place] [address] May, [facility] [place] [facility] [address] [id number] [place] [address] Apr, [facility] [place] [facility] [address] [id number] [place] [address] Mar, [facility] [place] [facility] [address] [id number] [place] [address] Mar, [facility] [place] [facility] [address] [id number] [place] [address] Mar, [facility] [place] [facility] [address] [id number] [place] [address] February, [facility] [place] [facility] [address] [id number] [place] [address] February, [facility] [address] [id number] [place] [address] February, [facility] [address] [id number] [place] [address] February, [facility] [address] [facility] [id number] [place] [address] Dec, [facility] [address] [id number] [place] [address] Dec, [facility] [address] [id number] [place] [address] Dec, [facility] [address] [facility] [id number] [place] [address] 25[address] Dec, [facility] [address] [facility] [id number] [place] [address] Nov, [facility] [place] [facility] [address] [id number] [place] [address] Nov, [facility] [address] [facility] [id number] [place] [address] Nov, [facility] [address] [facility] [id number] [place] [address] Nov, [facility] [address] [facility] [id number] [place] [address] Nov, [facility] [place] [facility] [address] [id number] [place] [address] Oct, [facility] [place] [facility] [address] [id number] [place] [address] Oct, [facility] [place] [facility] [address] [id number] [place] [address] 25[address] Oct, [facility] [place] [facility] [address] [facility] [id number] [place] [address] Aug, [facility] [place] [facility] [address] [id number] [place] [address] Aug, [facility] [place] [facility] [address] [id number] [place] [address] Jul, [facility] [place] [facility] [address] [id number] [place] [address] Jul, [facility] [place] [facility] [address] [id number] [place] [address] Jul, [facility] [place] [facility] [address] [id number] [place] [address] Jul, [facility] [place] [facility] [address] [id number] [place] [address] Jul, [facility] [place] [facility] [address] [id number] [place] [address] Jul, [facility] [place] [facility] [address] [id number] [place] [address] Jul, [facility] [place] [facility] [address] [id number] [place] [address]- [address] Jul, [facility] [place] [facility] [address] [id number] [place] [address] May, [facility] [place] [facility] [address] [id number] [place] [address] February, [facility] [place] [facility] [address] [id number] [place] [address] Nov, [facility] [place] [facility] [address] [id number] [place] [address] Sep, [facility] [place] [facility] [address] [id number] [place] [address] Aug, [facility] [place] [facility] [address] [id number] [place] [address]- [address] 14 Oct, 2009 [facility] [place] [facility] [address] [id number] [place] [address] Jul, [facility] [address] [facility] [id number] [place] [address] Jun, [facility] [address] [facility] [id number] [address] Mar, [facility] [address] [facility] [id number] [place] [address] Mar, [facility] [address] [facility] [id number] [place] [address] Nov, IMMUNIZATIONS No Known Immunizations SOCIAL HISTORY Never Assessed REASON FOR VISIT Lab (walk-in) PLAN OF CARE VITAL SIGNS MEDICATIONS No Known Medications RESULTS No Results PROCEDURES Procedure Date Ordered Result Body Site EKG, TRACING (IN-HOUSE) 2018-02-01 N/A ELECTROCARDIOGRAM, TRACING February 01, 2018 INSTRUCTIONS MEDICATIONS ADMINISTERED No Known Medications [...]
--- OUTSIDE RECORDS SUMMARY | 2019-01-24 07:37 | XMS REPORT ---
Author Author FRANCESCO PHILLIPS Organization [facility] Address [address] [place] [address] Care Team Providers Care Adjunct Physics Instructor Name Role Phone FRANCESCO PHILLIPS Unavailable PROBLEMS Type Condition ICD9-CM Code YPR77-PL Code Onset Dates Condition Status SNOMED Code Problem Paroxysmal atrial fibrillation I48.0 Active 677730890 Problem Generalized anxiety disorder F41.1 Active 20876075 Problem Gastro-esophageal reflux disease without esophagitis K21.9 Active 279673175 Problem Chronic kidney disease, stage 1 N18.1 Active 170978828 Problem Secondary hyperparathyroidism of renal origin N25.81 Active 97088282 Problem 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 Active 587573262 Problem MDD (major depressive disorder), recurrent, in partial remission F33.41 Active 28747693 Problem Acquired hypothyroidism E03.9 Active 924979121 Problem Chronic diastolic heart failure I50.32 Active 890972329 Problem Arthritis M19.90 Active 2896915 Problem Depression F32.9 Active 86427753 Problem Anxiety F41.9 Active 01028707 Problem Chronic kidney disease (CKD) stage G1/A1, glomerular filtration rate ( GFR) equal to or greater than 90 mL/min/1.73 square meter and albuminuria creatinine ratio less than 30 mg/g N18.1 Active 062657049 Problem Atrial fibrillation, unspecified type I48.91 Active 40943826 ALLERGIES No Information ENCOUNTERS Encounter Location Date Diagnosis [facility] [id number], [place] [address] May, Chronic kidney disease, stage 1 N18.1 [facility] [id number], [place] [address] May, Chronic kidney disease, stage 1 N18.1 and Chronic diastolic heart failure I50.32 [facility] [id number] [place] [address] 42050 -5792 Mar, Pain, dental K08.89 [place] [id number] [place] [address] 22566- 0859 February, Medicare annual wellness visit, initial Z00.00 ; MDD (major depressive disorder), recurrent, in partial remission F33.41 ; Atrial fibrillation, unspecified type I48.91 ; Chronic diastolic heart failure I50.32 ; Secondary hyperparathyroidism of renal origin N25.81 ; Acquired hypothyroidism E03.9 ; Anxiety F41.9 ; Chronic kidney disease, stage 1 N18.1 and Encounter for immunization Z23 [place] [address] [address] February, Closed fracture of one rib of right side, initial encounter S22.31XA ; Acute cystitis with hematuria N30.01 ; Right flank pain R10.9 and Rib pain on right side R07.81 [place] [address] [address]- [address] Jan, Acquired hypothyroidism E03.9 ; 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 ; Chronic kidney disease (CKD) stage G1/A1, glomerular filtration rate (GFR) equal to or greater than 90 mL/min/1.73 square meter and albuminuria creatinine ratio less than 30 mg/g N18.1 ; Paroxysmal atrial fibrillation I48.0 ; Chronic diastolic heart failure I50.32 and Secondary hyperparathyroidism of renal origin N25.81 [place] [id number] [place] [address] 24584- 8773 Jan, Arthritis M19.90 [facility] [id number] [place] [address] 99802- 5280 Jan, Paroxysmal atrial fibrillation I48.0 [place] [address] 50850- 4300 Jan, Paroxysmal atrial fibrillation I48.0 [facility] [facility] [id number] [place] [address] 97485- 5734 Jan, [place] [address] 68990- 8301 Jan, Generalized anxiety disorder F41.1 [facility] [id number] [place] [address] 70263- 3008 Jan, Generalized anxiety disorder F41.1 and MDD (major depressive disorder), recurrent, in partial remission F33.41 [place] [address] 53929- 8215 Dec, Arthritis M19.90 [facility] [id number] [place] [address] 97271- 4252 Dec, [place] [id number] [place] [address] 75394- 7018 Nov, Arthritis M19.90 ; Chronic kidney disease (CKD) stage G1/A1 , glomerular filtration rate (GFR) equal to or greater than 90 mL/min/1.73 square meter and albuminuria creatinine ratio less than 30 mg/g N18.1 and Anxiety F41.9 [place] [id number] [place] [address] 85164- 1005 Nov, [facility] [id number] [place] [address] 44291- 0291 Nov, [facility] [id number] [place] [address] 48870- 4269 Nov, [facility] [id number] [place] [address] 42146- 8033 Nov, [facility] [id number] [place] [address] 09249- 0620 Nov, [place] [id number] [place] [address] 76570- 5289 Oct, Generalized anxiety disorder F41.1 [place] [id number] [place] [address] 18524- 1530 Sep, Atrial fibrillation, unspecified type I48.91 [place] [address] [place] [address] 4[address] Sep, Generalized anxiety disorder F41.1 and MDD (major depressive disorder), recurrent, in partial remission F33.41 [facility] [id number] [place] [address] 69257- 0331 Sep, [facility] [id number] [place] [address] 65954- 9588 Aug, Generalized anxiety disorder F41.1 [facility] [id number] [place] [address] 55346- 1660 Aug, [facility] [id number] [place] [address] 54490- 0368 Aug, Paroxysmal atrial fibrillation I48.0 and Gastro-esophageal reflux disease without esophagitis K21.9 [facility] [id number] [place] [address] 69580- 9146 Jul, [facility] [id number] [place] [address] 71178- 7040 Jul, Generalized anxiety disorder F41.1 [facility] [id number] [place] [address] 35231- 4109 Jun, Generalized anxiety disorder F41.1 and MDD (major depressive disorder), recurrent, in partial remission F33.41 [facility] [id number] [place] [address] 29584- 3250 May, Recurrent major depressive disorder, in partial remission F33.41 [facility] [id number] [place] [address] 62346- 2000 May, Anxiety F41.9 and Paroxysmal atrial fibrillation I48.0 [facility] [id number] [place] [address] 29049- 1046 Apr, Generalized anxiety disorder F41.1 [facility] [id number] [place] [address] 66158- 8767 Mar, [facility] [id number] [place] [address] 57364- 2057 Mar, Generalized anxiety disorder F41.1 and MDD (major depressive disorder), recurrent, in partial remission F33.41 [facility] [address], [place] [address] February, Paroxysmal atrial fibrillation I48.0 and Anxiety F41.9 [facility] [address], [place] [address] February, MDD (major depressive disorder), recurrent, in partial remission F33.41 [facility] [address], [place] [address] Jan, [facility] [id number] [place] [address] 73521 -8934 Jan, [facility] [id number] [address] Jan, [facility] [id number] [place] [address] 94559- 5903 Jan, [facility] [address], [place] [address]- 4867 Dec, [facility] [id number] [place] [address] 51900- 4395 Dec, Generalized anxiety disorder F41.1 [facility] [address], [place] [address] 3[address] Dec, Generalized anxiety disorder F41.1 and MDD (major depressive disorder), recurrent, in partial remission F33.41 [facility] [address], [place] [address]- 3[address] Dec, [facility] [id number] [address]66 14 Dec, 2016 [facility] [address], [place] [address]- 3541 Dec, [facility] [id number] [place] [address] 97871- 8836 Nov, [facility] [id number] [place] [address] 03945- 5885 Nov, Gastro-esophageal reflux disease without esophagitis K21.9 [facility] [id number] [place] [address] 27301- 7300 10 Nov, 2016 Atrial fibrillation, unspecified type I48.91 and Anxiety F41.9 [facility] [id number] [place] [address] 88235- 9557 Oct, [place] [id number] [place] [address] 53230- 6085 Oct, [place] [id number] [place] [address] 44175- 5403 Oct, Depression F32.9 and Atrial fibrillation, unspecified type I48.91 [place] [id number] [place] [address] 77543- 8025 Oct, [place] [id number] [place] [address] 37755- 9177 Sep, Depression F32.9 [place] [id number] [place] [address] 12348- 2658 Sep, Recurrent major depressive disorder, in partial remission F33.41 and Generalized anxiety disorder F41.1 [place] [id number] [place] [address] 05639- 0436 Sep, Paroxysmal atrial fibrillation I48.0 and Anxiety F41.9 [place] [id number] [place] [address] 44168- 4122 Sep, [place] [id number] [place] [address] 58219- 2886 Sep, [place] [id number] [place] [address] 97979- 2884 Sep, Gastro-esophageal reflux disease without esophagitis K21.9 [place] [id number] [place] [address] 71976- 5552 Aug, [facility] [id number] [place] [address] 49674- 2124 Aug, [facility] [id number] [place] [address] 29925- 4881 Aug, Atrial fibrillation, unspecified type I48.91 [place] [address] 28999- 0101 Jul, Major depressive disorder, recurrent, in partial remission F33.41 and Generalized anxiety disorder F41.1 [place] [id number] [place] [address] 49830- 9480 Jul, [place] [id number] [place] [address] 80374- 2403 Jun, [place] [id number] [place] [address] 99080- 9657 15 Jun, 2016 Bronchitis J40 and Memory loss R41.3 [facility] [id number] [place] [address] 38215- 5103 14 Jun, 2016 Upper respiratory infection with cough and congestion J06.9 [facility] [address] [place] [address] 47921- 4723 Apr, [facility] [id number] [place] [address] 80354- 6372 Apr, Major depressive disorder, recurrent, unspecified F33.9 ; Anxiety F41.9 and Psychophysiological insomnia F51.04 [facility] [address] [place] [address] 74849- 8374 Mar, [place] [id number] [place] [address] 29623- 7351 Mar, [facility] [id number] [place] [address] 52693- 7567 February, [facility] [id number] [place] [address] 22049- 7149 Jan, Postural hypotension I95.1 [place] [address] 61152- 1996 Jan, Recurrent major depressive disorder in remission F33.40 ; Generalized anxiety disorder F41.1 and Psychophysiological insomnia F51.04 [place] [address] 25867- 2339 Dec, Generalized anxiety disorder F41.1 [facility] [id number] [place] [address] 65315 -2926 Dec, Unspecified fall, initial encounter W19.XXXA [place] [id number] [place] [address] 18405- 2248 Nov, Depression F32.9 and Anxiety F41.9 [place] [address] 92137- 5192 Oct, [place] [id number] [place] [address] 48439- 4531 Oct, [place] [address] 00289- 7166 Oct, Chronic kidney disease, stage 3 (moderate) N18.3 [place] [id number] [place] [address] 52127- 1627 Oct, Head contusion S00.93XA ; Cervical strain S16.1XXA and Arthritis M19.90 [place] [id number] [place] [address] 03651- 6274 Oct, Chronic kidney disease 585.9 [place] [address] 58706- 0777 Oct, Chronic kidney disease 585.9 [place] [id number] [place] [address] 14798- 1376 Oct, [place] [address] [place] [address]- 3347 Sep, [facility] [id number] [place] [address] 38789- 8894 Aug, Chronic kidney disease N18.9 [facility] [id number] [place] [address] 21749- 8820 16 Aug, 2015 Chronic kidney disease (CKD) stage G1/A1, glomerular filtration rate (GFR) equal to or greater than 90 mL/min/1.73 square meter and albuminuria creatinine ratio less than 30 mg/g N18.1 and GERD (gastroesophageal reflux disease) K21.9 [facility] [id number] [place] [address] 93866- 9409 Aug, [facility] [id number] [place] [address] 75244- 6485 Jun, Generalized anxiety disorder 300.02 ; Major depression, recurrent 296.30 and Persistent 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 [facility] [id number] [place] [address] 95245- 9670 Jun, [facility] [id number] [place] [address] 30506- 8850 May, [facility] [id number] [place] [address] 71357- 7602 May, Generalized anxiety disorder 300.02 and Depression, major, recurrent, in remission 296.35 [facility] [id number] [place] [address] 62469- 2281 May, [facility] [id number] [place] [address] 15100- 5370 May, [facility] [id number] [place] [address] 37263- 1819 May, [facility] [id number] [place] [address] 62511- 8990 May, [facility] [id number] [place] [address] 87362- 3693 May, Chronic kidney disease 585.9 [facility] [id number] [place] [address] 58558- 7785 Apr, Chronic kidney disease 585.9 [facility] [id number] [place] [address] 07308- 6130 Apr, [facility] [id number] [place] [address] 82253- 3045 Apr, Arthropathy 716.90 ; Hyperlipidemia 272.4 ; Hypothyroidism 244.9 and GERD (gastroesophageal reflux disease) 530.81 [facility] [id number] [place] [address] 004202- 3093 Apr, Arthropathy 716.90 ; Hypothyroidism 244.9 ; Hyperlipidemia 272.4 and GERD (gastroesophageal reflux disease) 530.81 [facility] [id number] [place] [address] 53369- 1191 Mar, [facility] [id number] [place] [address] 38032- 0197 February, Depression, major, recurrent, in remission 296.35 and Generalized anxiety disorder 300.02 [facility] [id number] [place] [address] 20875- 0092 February, [facility] [id number] [place] [address] 26542- 4982 February, [facility] [id number] [place] [address] 50646- 5530 Jan, [facility] [id number] [place] [address] 71628- 7700 Jan, [facility] [id number] [place] [address] 61680312- 1473 Oct, [facility] [id number] [place] [address] 26520- 9055 Oct, [facility] [id number] [place] [address] 85495- 1891 Oct, [facility] [place] [facility] [address] [id number] [place] [address]- 2162 Oct, [facility] [place] [facility] [address] [id number] [place] [address]- 3802 Oct, [facility] [place] [facility] [address] [id number] [place] [address]- 0082 Oct, [facility] [place] [facility] [address] [id number] [place] [address]- 6201 Sep, [facility] [place] [facility] [address] [id number] [place] [address]- 7755 Sep, [facility] [place] [facility] [address] [id number] [place] [address]- 2943 Aug, [facility] [place] [facility] [address] [id number] [place] [address]- 7662 Aug, [facility] [place] [facility] [address] [id number] [place] [address]- 1139 Aug, [facility] [place] [facility] [address] [id number] [place] [address]- 1907 Aug, [facility] [place] [facility] [address] [id number] [place] [address]- 3325 Jul, [facility] [place] [facility] [address] [id number] [address]- 6528 Jul, [facility] [place] [facility] [address] [id number], [place] [address]- 4465 Jul, [facility] [place] [facility] [address] [id number] [place] [address]- 3990 Jul, [facility] [place] [facility] [address] [id number] [place] [address]- 3271 Jun, [facility] [place] [facility] [address] [id number] [place] [address]- 6139 Jun, [facility] [place] [facility] [address] [id number] [place] [address]- 6862 Jun, [facility] [place] [facility] [address] [id number] [place] [address]- 9306 Jun, [facility] [place] [facility] [address] [id number] [place] [address] 2546 Jun, [facility] [place] [facility] [address] [id number] [place] [address]- 1136 Jun, [facility] [place] [facility] [address] [id number] [place] [address]- 2544 Jun, [facility] [place] [facility] [address] [id number] [place] [address]- 2993 May, [facility] [place] [facility] [address] [id number] [place] [address]- 2586 May, [facility] [place] [facility] [address] [id number] [place] [address]- 1820 May, [facility] [place] [facility] [address] [id number] [place] [address]- 4758 May, [facility] [place] [facility] [address] [id number] [place] [address]- 0733 Apr, [facility] [place] [facility] [address] [id number] [place] [address]- 2414 Apr, [facility] [place] [facility] [address] [id number] [place] [address] Apr, [facility] [place] [facility] [address] [id number] [place] [address] Apr, [facility] [place] [facility] [address] [id number] [place] [address] Apr, [facility] [place] [facility] [address] [id number] [place] [address] Apr, [facility] [place] [facility] [address] [id number] [place] [address] Apr, [facility] [place] [facility] [address] [id number] [place] [address] Apr, [facility] [place] [facility] [address] [id number] [place] [address] Mar, [facility] [place] [facility] [address] [id number] [place] [address] Mar, [facility] [place] [facility] [address] [id number] [place] [address] Mar, [facility] [place] [facility] [address] [id number] [place] [address] Mar, [facility] [place] [facility] [address] [id number] [place] [address] Mar, [facility] [place] [facility] [address] [id number] [place] [address] Mar, [facility] [place] [facility] [address] [id number] [place] [address] Mar, [facility] [place] [facility] [address] [id number] [place] [address] Mar, [facility] [place] [facility] [address] [id number] [place] [address] Dec, [facility] [place] [facility] [address] [id number] [place] [address] Dec, [facility] [place] [facility] [address] [id number] [place] [address]- [address] 31 Dec, 2013 [facility] [place] [facility] [address] [id number] [place] [address]- [address] 31 Dec, 2013 [facility] [place] [facility] [address] [id number] [place] [address] Dec, [facility] [place] [facility] [address] [id number] [place] [address] Dec, [facility] [place] [facility] [address] [id number] [place] [address]- [address] Dec, [facility] [place] [facility] [address] [id number] [place] [address] Dec, [facility] [place] [facility] [address] [id number] [place] [address]- [address]074 Nov, [facility] [place] [facility] [address] [id number] [place] [address]- [address] Nov, [facility] [place] [facility] [address] [id number] [place] [address]- [address] Nov, [facility] [place] [facility] [address] [id number] [place] [address] Nov, [facility] [place] [facility] [address] [id number] [place] [address] Nov, [facility] [place] [facility] [address] [id number] [place] [address]- [address] Nov, [facility] [place] [facility] [address] [id number] [place] [address] Nov, [facility] [place] [facility] [address] [facility] [id number] [place] [address] Nov, [facility] [place] [facility] [address] [facility] [id number] [place] [address] Aug, [facility] [place] [facility] [address] [id number] [place] [address] Aug, [facility] [place] [facility] [address] [id number] [place] [address] Jul, [facility] [place] [facility] [address] [id number] [place] [address] Jul, [facility] [place] [facility] [address] [facility] [id number] [place] [address] Jul, [facility] [place] [facility] [address] [id number] [place] [address] Jun, [facility] [place] [facility] [address] [id number] [place] [address] 30 Jun, 2013 [facility] [address] [id number] [place] [address]- [address] 24 Jun, 2013 [facility] [address] [id number] [place] [address] Jun, [facility] [address] [id number] [place] [address] Jun, [facility] [address] [id number] [place] [address]- [address] May, [facility] [address] [id number] [place] [address] Apr, [facility] [address] [id number] [place] [address] Apr, [facility] [address] [id number] [place] [address] Apr, [facility] [address] [id number] [place] [address] Mar, [facility] [address] [id number] [place] [address] Mar, [facility] [address] [id number] [place] [address] February, [facility] [address] [id number] [place] [address] February, [facility] [place] [facility] [address] [id number] [place] [address] February, [facility] [place] [facility] [address] [id number] [place] [address] February, [facility] [place] [facility] [address] [id number] [place] [address] Jan, [facility] [place] [facility] [address] [id number], [place] [address] Jan, [facility] [address] [id number] [place] [address] Jan, [facility] [address] [id number] [place] [address] 04 Jan, 2013 [facility] [address] [id number] [place] [address] 20 Dec, 2012 [facility] [address] [id number] [place] [address] 13 Dec, 2012 [facility] [address] [id number] [place] [address] Dec, [facility] [address] [id number] [place] [address] 22 Nov, 2012 [facility] [address] [facility] [id number] [place] [address] 15 Nov, 2012 [facility] [address] [id number] [place] [address] Nov, [facility] [address] [id number] [place] [address] Oct, [facility] [address] [facility] [id number] [place] [address] Oct, [facility] [address] [id number] [place] [address] 76[address] Sep, [facility] [place] [facility] [address] [id number] [place] [address] 67[address] Sep, [facility] [place] [facility] [address] [id number] [place] [address] Sep, [facility] [place] [facility] [address] [id number] [place] [address] Sep, [facility] [address] [facility] [id number] [place] [address] Sep, [facility] [place] [facility] [address] [id number] [place] [address] Aug, [facility] [place] [facility] [address] [id number] [place] [address] Aug, [facility] [place] [facility] [address] [id number] [place] [address] Aug, [facility] [place] [facility] [address] [id number] [place] [address] Aug, [facility] [place] [facility] [address] [id number] [place] [address] Aug, [facility] [place] [facility] [address] [id number] [place] [address]26 Aug, [facility] [place] [facility] [address] [id number] [place] [address] Jun, [facility] [place] [facility] [address] [id number] [place] [address] Jun, [facility] [place] [facility] [address] [id number] [place] [address] Jun, [facility] [place] [facility] [address] [id number] [place] [address] May, [facility] [place] [facility] [address] [id number] [place] [address] May, [facility] [place] [facility] [address] [id number] [place] [address] May, [facility] [place] [facility] [address] [id number] [place] [address] May, [facility] [place] [facility] [address] [id number] [place] [address] Apr, [facility] [place] [facility] [address] [id number] [place] [address] Mar, [facility] [place] [facility] [address] [id number] [place] [address] Mar, [facility] [place] [facility] [address] [id number] [place] [address] Mar, [facility] [place] [facility] [address] [id number] [place] [address] February, [facility] [place] [facility] [address] [id number] [place] [address] February, [facility] [place] [facility] [address] [id number] [place] [address] February, [facility] [place] [facility] [address] [id number] [place] [address] February, [facility] [place] [facility] [address] [id number] [place] [address] 1519 Dec, [facility] [place] [facility] [address] [id number] [place] [address]- 9526 Dec, [facility] [place] [facility] [address] [id number] [place] [address]- [address]16 Dec, [facility] [place] [facility] [address] [id number] [place] [address]- [address] Dec, [facility] [place] [facility] [address] [id number] [place] [address] Nov, [facility] [place] [facility] [address] [id number] [place] [address]85 Nov, [facility] [place] [facility] [address] [id number] [place] [address] 58[address] Nov, [facility] [place] [facility] [address] [id number] [place] [address] 08 Nov, 2011 [facility] [place] [facility] [address] [id number] [place] [address] Nov, [facility] [place] [facility] [address] [id number] [place] [address] 9816 Oct, [facility] [place] [facility] [address] [id number] [place] [address] Oct, [facility] [place] [facility] [address] [id number] [place] [address] Oct, [facility] [place] [facility] [address] [id number] [place] [address] Aug, [facility] [place] [facility] [address] [id number] [place] [address]65 Aug, [facility] [place] [facility] [address] [id number] [place] [address] Jul, [facility] [place] [facility] [address] [id number] [place] [address] Jul, [facility] [place] [facility] [address] [id number] [place] [address] 0917 Jul, [facility] [place] [facility] [address] [id number] [place] [address] Jul, [facility] [place] [facility] [address] [id number] [place] [address]- [address] Jul, [facility] [place] [facility] [address] [id number] [place] [address] 1669 Jul, [facility] [place] [facility] [address] [id number] [place] [address]- 7899 Jul, [facility] [place] [facility] [address] [id number] [place] [address]- [address] Jul, [facility] [place] [facility] [address] [id number] [place] [address]- 68[address] May, [facility] [place] [facility] [address] [id number] [place] [address] February, [facility] [place] [facility] [address] [id number] [place] [address]- 2166 Nov, [facility] [place] [facility] [address] [id number] [place] [address] Sep, [facility] [address] [id number], [place] [address] Aug, [facility] [address] [facility] [id number], [place] [address] Oct, [facility] [address] [id number], [place] [address] Jul, [facility] [id number], [place] [address] Jun, [facility] [address] [id number], [place] [address] Mar, [facility] [id number], [place] [address] Mar, [facility] [address] [id number], [place] [address] Nov, IMMUNIZATIONS No Known Immunizations SOCIAL HISTORY Never Assessed REASON FOR VISIT Tramadol PLAN OF CARE VITAL SIGNS MEDICATIONS Medication Instructions Dosage Frequency Start Date End Date Duration Status Tramadol HCl 50 mg Orally every 6 hrs 2 tablet as needed 6h Nov, Active RESULTS No Results PROCEDURES No Known [...] 2017 Hospitalization History surgeries Hospitalization History [facility]- irregular heart beat, shortness of breath Aug 2016 Hospitalization History post left hip surgery oct 2017
--- OUTSIDE RECORDS SUMMARY | 2019-01-24 07:38 | XMS REPORT ---
Author Author ARI MURRELL [facility] Address [address] [place] [address] Care Team Providers Care Stave Saw Operator Name Role Phone ARI MURRELL Unavailable PROBLEMS Type Condition ICD9-CM Code JBD87-LF Code Onset Dates Condition Status SNOMED Code Problem Paroxysmal atrial fibrillation I48.0 Active 152301176 Problem Generalized anxiety disorder F41.1 Active 99781925 Problem Gastro-esophageal reflux disease without esophagitis K21.9 Active 893172583 Problem Chronic kidney disease, stage 1 N18.1 Active 644241282 Problem Secondary hyperparathyroidism of renal origin N25.81 Active 66206171 Problem 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 Active 725635280 Problem MDD (major depressive disorder), recurrent, in partial remission F33.41 Active 47450367 Problem Acquired hypothyroidism E03.9 Active 859862539 Problem Chronic diastolic heart failure I50.32 Active 563405748 Problem Arthritis M19.90 Active 3558724 Problem Depression F32.9 Active 55211883 Problem Anxiety F41.9 Active 87708168 Problem Chronic kidney disease (CKD) stage G1/A1, glomerular filtration rate ( GFR) equal to or greater than 90 mL/min/1.73 square meter and albuminuria creatinine ratio less than 30 mg/g N18.1 Active 306300196 Problem Atrial fibrillation, unspecified type I48.91 Active 52352386 ALLERGIES Substance Reaction Event Type Date Status morphine vomiting Drug Allergy Jan, Active Adhesive Tape itching, rash Drug Allergy Jan, Active ENCOUNTERS Encounter Location Date Diagnosis [facility] [address] [facility] [id number] [address] Mar, Pain, dental K08.89 [facility] [address] [place] [id number] [address] February, Medicare annual wellness visit, initial Z00.00 ; MDD (major depressive disorder), recurrent, in partial remission F33.41 ; Atrial fibrillation, unspecified type I48.91 ; Chronic diastolic heart failure I50.32 ; Secondary hyperparathyroidism of renal origin N25.81 ; Acquired hypothyroidism E03.9 ; Anxiety F41.9 ; Chronic kidney disease, stage 1 N18.1 and Encounter for immunization Z23 [place] [address] [address] February, Closed fracture of one rib of right side, initial encounter S22.31XA ; Acute cystitis with hematuria N30.01 ; Right flank pain R10.9 and Rib pain on right side R07.81 [place] [address] 99345- 6[address] Jan, Acquired hypothyroidism E03.9 ; 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 ; Chronic kidney disease (CKD) stage G1/A1, glomerular filtration rate (GFR) equal to or greater than 90 mL/min/1.73 square meter and albuminuria creatinine ratio less than 30 mg/g N18.1 ; Paroxysmal atrial fibrillation I48.0 ; Chronic diastolic heart failure I50.32 and Secondary hyperparathyroidism of renal origin N25.81 [place] [address] 41527- 6853 Jan, Arthritis M19.90 [place] [address] 24340- 8418 Jan, Paroxysmal atrial fibrillation I48.0 [place] [address] 14802- 3121 Jan, Paroxysmal atrial fibrillation I48.0 [place] [address] 09075- 5215 Jan, [place] [address] 96309- 4886 Jan, Generalized anxiety disorder F41.1 [place] [address] 48830- 0476 Jan, Generalized anxiety disorder F41.1 and MDD (major depressive disorder), recurrent, in partial remission F33.41 [facility] [address] [id number] [place] [address] 85778- 8515 Dec, Arthritis M19.90 [facility] [address] [id number] [place] [address] 61660- 1963 Dec, [facility] [address] [id number] [place] [address] 88949- 5988 Nov, Arthritis M19.90 ; Chronic kidney disease (CKD) stage G1/A1 , glomerular filtration rate (GFR) equal to or greater than 90 mL/min/1.73 square meter and albuminuria creatinine ratio less than 30 mg/g N18.1 and Anxiety F41.9 [place] [address] [place] [id number] [place] [address] 61187- 5864 Nov, [place] [address] [place] [id number] [place] [address] 27610- 2842 Nov, [facility] [id number] [place] [address] 32523- 0154 Nov, [place] [address] [place] [id number] [place] [address] 05772- 5484 Nov, [facility] [address] [id number] [place] [address] 77562- 9615 Nov, [place] [address] [place] [id number] [place] [address] 78602- 5845 Oct, Generalized anxiety disorder F41.1 [place] [address] [place] [id number] [place] [address] 85491- 5032 Sep, Atrial fibrillation, unspecified type I48.91 [place] [address] [place] [id number] [place] [address] 31760- 8407 Sep, Generalized anxiety disorder F41.1 and MDD (major depressive disorder), recurrent, in partial remission F33.41 [place] [address] [place] [id number] [place] [address] 47918- 7998 Sep, [facility] [address] [address] Aug, Generalized anxiety disorder F41.1 [facility] [id number] [place] [address] 482584- 2986 Aug, [facility] [address] [id number] [address] 5007 Aug, Paroxysmal atrial fibrillation I48.0 and Gastro-esophageal reflux disease without esophagitis K21.9 [facility] [address] [address] Jul, [facility] [address] [place] [id number] [place] [address] 34344- 7276 Jul, Generalized anxiety disorder F41.1 [facility] [id number] [place] [address] 09295- 5557 Jun, Generalized anxiety disorder F41.1 and MDD (major depressive disorder), recurrent, in partial remission F33.41 [facility] [address] [address] May, Recurrent major depressive disorder, in partial remission F33.41 [facility] [address] [address] 4[address] May, Anxiety F41.9 and Paroxysmal atrial fibrillation I48.0 [facility] [address] [address] 2631 Apr, Generalized anxiety disorder F41.1 [facility] [address] [address] Mar, [facility] [id number] [address] Mar, Generalized anxiety disorder F41.1 and MDD (major depressive disorder), recurrent, in partial remission F33.41 [facility] [id number] [place] [address] 96499- 2888 February, Paroxysmal atrial fibrillation I48.0 and Anxiety F41.9 [facility] [address] [address] February, MDD (major depressive disorder), recurrent, in partial remission F33.41 [facility] [address] [address] Jan, [facility] [address] [place] [id number] [place] [address] 75370 -8933 Jan, [facility] [id number] [place] [address] 65458- 0690 Jan, [facility] [id number] [place] [address] 61264- 1152 Jan, [facility] [id number] [place] [address] 64651- 9613 Dec, [facility] [id number] [place] [address] 35222- 1797 Dec, Generalized anxiety disorder F41.1 [facility] [address] [id number] [place] [address] 21205- 5992 Dec, Generalized anxiety disorder F41.1 and MDD (major depressive disorder), recurrent, in partial remission F33.41 [facility] [address] [address] 1186 Dec, [facility] [id number] [place] [address] 59963- 7334 Dec, [facility] [address] [address]- 5060 Dec, [facility] [id number] [place] [address] 70870- 9486 Nov, [facility] [address] [address] 1677 Nov, Gastro-esophageal reflux disease without esophagitis K21.9 [place] [address] [place] [id number] [place] [address] 16930- 0778 Nov, Atrial fibrillation, unspecified type I48.91 and Anxiety F41.9 [facility] [id number] [place] [address] 59348- 0851 Oct, [facility] [id number] [place] [address] 56325- 5450 Oct, [facility] [address] [id number] [place] [address] 93874- 9743 Oct, Depression F32.9 and Atrial fibrillation, unspecified type I48.91 [facility] [address] [id number] [place] [address] 94638- 5083 Oct, [facility] [address] [place] [id number] [place] [address] 15333- 6894 Sep, Depression F32.9 [facility] [address] [id number] [place] [address] 13640- 2913 Sep, Recurrent major depressive disorder, in partial remission F33.41 and Generalized anxiety disorder F41.1 [place] [address] [place] [id number] [place] [address] 27513- 2829 Sep, Paroxysmal atrial fibrillation I48.0 and Anxiety F41.9 [facility] [address] [place] [id number] [place] [address] 99576- 6615 Sep, [facility] [address] [place] [id number] [place] [address] 06287- 5563 Sep, [facility] [address] [place] [id number] [place] [address] 73939- 2813 Sep, Gastro-esophageal reflux disease without esophagitis K21.9 [facility] [id number] [place] [address] 33926- 3547 Aug, [facility] [address] [place] [id number] [place] [address] 48140- 5217 Aug, [place] [id number] [place] [address] 35340- 7931 Aug, Atrial fibrillation, unspecified type I48.91 [place] [address] [place] [id number] [place] [address] 19329- 8501 Jul, Major depressive disorder, recurrent, in partial remission F33.41 and Generalized anxiety disorder F41.1 [place] [address] [place] [id number] [place] [address] 27627- 3542 Jul, [place] [address] [place] [id number] [place] [address] 39294- 2239 30 Jun, 2016 [place] [address] [place] [id number] [place] [address] 73392- 1110 15 Jun, 2016 Bronchitis J40 and Memory loss R41.3 [place] [address] [place] [id number] [place] [address] 16128- 6561 14 Jun, 2016 Upper respiratory infection with cough and congestion J06.9 [place] [address] [place] [id number] [place] [address] 69857- 0131 Apr, [place] [address] [place] [id number] [place] [address] 78262- 1081 Apr, Major depressive disorder, recurrent, unspecified F33.9 ; Anxiety F41.9 and Psychophysiological insomnia F51.04 [place] [address] [place] [id number] [place] [address] 62982- 8805 Mar, [place] [address] [place] [id number] [place] [address] 24125- 2178 Mar, [place] [address] [place] [id number] [place] [address] 91464- 4974 February, [place] [address] [place] [id number] [place] [address] 13054- 9168 Jan, Postural hypotension I95.1 [place] [address] [place] [id number] [place] [address] 29632- 7449 14 Apr, 2016 Recurrent major depressive disorder in remission F33.40 ; Generalized anxiety disorder F41.1 and Psychophysiological insomnia F51.04 [facility] [id number] [place] [address] 86537- 6387 14 Dec, 2015 Generalized anxiety disorder F41.1 [facility] [address] [id number] [place] [address] 87932 -6300 11 Dec, 2015 Unspecified fall, initial encounter W19.XXXA [place] [address] 57403- 3942 Nov, Depression F32.9 and Anxiety F41.9 [place] [address] 85491- 5775 Oct, [place] [address] 57238- 4447 Oct, [place] [address] 63787- 9272 Oct, Chronic kidney disease, stage 3 (moderate) N18.3 [place] [address] [place] [id number] [place] [address] 88771- 7110 Oct, Head contusion S00.93XA ; Cervical strain S16.1XXA and Arthritis M19.90 [place] [address] [place] [id number] [place] [address] 19627- 5754 Oct, Chronic kidney disease 585.9 [place] [address] 53280- 4911 Oct, Chronic kidney disease 585.9 [facility] [address] [place] [id number] [place] [address] 50208- 2381 Oct, [place] [address] 12337- 4238 Sep, [place] [address] 14511- 2644 Aug, Chronic kidney disease N18.9 [place] [address] [place] [id number] [place] [address] 33551- 2168 16 Aug, 2015 Chronic kidney disease (CKD) stage G1/A1, glomerular filtration rate (GFR) equal to or greater than 90 mL/min/1.73 square meter and albuminuria creatinine ratio less than 30 mg/g N18.1 and GERD (gastroesophageal reflux disease) K21.9 [facility] [address] [id number] [place] [address] 32269- 5001 Aug, [facility] [address] [place] [place] [id number] [place] [address] 98119- 3957 Jun, Generalized anxiety disorder 300.02 ; Major depression, recurrent 296.30 and Persistent 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 [place] [address] [place] [id number] [place] [address] 28264- 9019 Jun, [place] [address] [place] [id number] [place] [address] 56221- 8143 May, [facility] [address] [id number] [place] [address] 18736- 1611 May, Generalized anxiety disorder 300.02 and Depression, major, recurrent, in remission 296.35 [place] [address] [place] [id number] [place] [address] 07436- 3595 May, [facility] [id number] [place] [address] 91498- 1287 May, [facility] [address] [id number] [place] [address] 29592- 9238 May, [facility] [address] [id number] [place] [address] 48833- 7038 May, [facility] [id number] [place] [address] 36575- 1877 May, Chronic kidney disease 585.9 [facility] [id number] [place] [address] 91825- 6352 Apr, Chronic kidney disease 585.9 [facility] [id number] [address]- 4889 14 Apr, 2015 [facility] [id number] [place] [address] 65501- 4452 Apr, Arthropathy 716.90 ; Hyperlipidemia 272.4 ; Hypothyroidism 244.9 and GERD (gastroesophageal reflux disease) 530.81 [facility] [id number] [place] [address] 64832- 0524 Apr, Arthropathy 716.90 ; Hypothyroidism 244.9 ; Hyperlipidemia 272.4 and GERD (gastroesophageal reflux disease) 530.81 [facility] [id number] [place] [address] 33949- 2062 Mar, [facility] [id number] [place] [address] 582526- 8993 February, Depression, major, recurrent, in remission 296.35 and Generalized anxiety disorder 300.02 [facility] [id number] [place] [address] 76365- 1465 February, [facility] [id number] [place] [address] 20540- 7678 February, [facility] [id number] [place] [address] 31710- 5149 Jan, [facility] [id number] [place] [address] 96865- 4698 Jan, [facility] [id number] [place] [address] 41143- 7377 Oct, [facility] [address] [address]- 5592 Oct, [facility] [id number] [place] [address] [id number]- 7599 Oct, [facility] [address] [address]- 1169 Oct, [facility] [id number] [place] [address] 68954- 1921 14 Oct, 2014 [facility] [place] [facility] [address] [id number] [place] [address]- 3761 Oct, [facility] [place] [facility] [address] [id number] [place] [address]- 0612 Sep, [facility] [place] [facility] [address] [id number] [place] 7239 Sep, [facility] [place] [facility] [address] [id number] [place] [address]- 4294 Aug, [facility] [place] [facility] [address] [id number] [place] [address]- 4436 Aug, [facility] [place] [facility] [address] [id number] [place] [address]- 2951 Aug, [facility] [place] [facility] [address] [id number] [place] [address]- 2119 Aug, [facility] [place] [facility] [address] [id number] [place] [address]- 9448 Jul, [facility] [place] [facility] [address] [id number] [place] [address]- 5810 Jul, [facility] [place] [facility] [address] [id number] [place] [address]- 0596 Jul, [facility] [place] [facility] [address] [id number] [place] [address]- 3520 Jul, [facility] [place] [facility] [address] [id number] [address]- 3179 29 Jun, 2014 [facility] [place] [facility] [address] [id number] [place] [address]- 2487 Jun, [facility] [place] [facility] [address] [id number] [place] [address]- 0637 Jun, [facility] [place] [facility] [address] [id number] [place] [address]- 0404 10 Jun, 2014 [facility] [place] [facility] [address] [id number] [place] [address]- 0163 Jun, [facility] [place] [facility] [address] [id number] [place] [address]- 2426 Jun, [facility] [place] [facility] [address] [id number] [place] [address]- 4506 Jun, [facility] [place] [facility] [address] [id number] [place] [address]- 8010 May, [facility] [place] [facility] [address] [id number] [place] [address]- 3604 May, [facility] [place] [facility] [address] [id number] [place] [address]- 2242 May, [facility] [place] [facility] [address] [id number] [place] [address]- 7539 May, [facility] [place] [facility] [address] [id number] [place] [address]- 4332 Apr, [facility] [place] [facility] [address] [id number] [place] [address]- 1400 Apr, [facility] [place] [facility] [address] [id number] [place] [address]- 4787 Apr, [facility] [place] [facility] [address] [id number] [place] [address]- 8433 Apr, [facility] [place] [facility] [address] [id number] [place] [address]- 4577 Apr, [facility] [place] [facility] [address] [id number] [place] [address]- 0314 Apr, [facility] [place] [facility] [address] [id number] [place] [address]- 5099 Apr, [facility] [place] [facility] [address] [id number] [place] [address]- 6947 Apr, [facility] [place] [facility] [address] [id number] [place] [address]- 5210 Mar, [facility] [place] [facility] [address] [id number] [place] [address]- 7484 Mar, [facility] [place] [facility] [address] [id number] [place] [address]- 3701 Mar, [facility] [place] [facility] [address] [id number] [place] [address]- 5528 Mar, [facility] [place] [facility] [address] [id number] [place] [address]- 9968 Mar, [facility] [place] [facility] [address] [id number] [place] [address]- 2433 Mar, [facility] [place] [facility] [address] [id number] [place] [address]- 2583 Mar, [facility] [place] [facility] [address] [id number] [place] [address]- 6856 Mar, [facility] [place] [facility] [address] [id number] [place] [address]- 1573 Dec, [facility] [place] [facility] [address] [id number] [place] [address]- 9916 Dec, [facility] [place] [facility] [address] [id number] [place] [address]- 8048 Dec, [facility] [place] [facility] [address] [id number] [place] [address]- 2950 Dec, [facility] [place] [facility] [address] [id number] [place] [address]- 9451 Dec, [facility] [place] [facility] [address] [id number] [place] [address]- 1877 Dec, [facility] [place] [facility] [address] [id number] [place] [address]- 9442 Dec, [facility] [place] [facility] [address] [id number] [place] 3887 Dec, [facility] [place] [facility] [address] [id number] [place] [address]- 7369 Nov, 2013 [facility] [place] [facility] [address] [id number] [place] [address] Nov, 2013 [facility] [place] [facility] [address] [id number] [place] [address] Nov, 2013 [facility] [place] [facility] [address] [id number] [place] [address] Nov, 2013 [facility] [place] [facility] [address] [id number] [place] [address] Nov, [facility] [place] [facility] [address] [id number] [place] [address] Nov, 2013 [facility] [place] [facility] [address] [facility] [id number] [place] [address] Nov, [facility] [place] [facility] [address] [facility] [id number] [place] [address] Nov, [facility] [place] [facility] [address] [facility] [id number] [place] [address] Aug, [facility] [place] [facility] [address] [facility] [id number] [place] [address] Aug, [facility] [place] [facility] [address] [facility] [id number] [place] [address] Jul, [facility] [place] [facility] [address] [id number] [place] [address] 18 Jul, 2013 [facility] [place] [facility] [address] [facility] [id number] [place] [address] Jul, [facility] [place] [facility] [address] [id number] [place] [address] 30 Jun, 2013 [facility] [place] [facility] [address] [facility] [id number] [place] [address] 30 Jun, 2013 [facility] [place] [facility] [address] [id number] [place] [address] Jun, [facility] [place] [facility] [address] [id number] [place] [address] Jun, [facility] [address] [id number] [place] [address] Jun, [facility] [address] [id number] [place] [address] May, [facility] [address] [id number] [place] [address] Apr, [facility] [address] [id number] [place] [address] Apr, [facility] [address] [id number] [place] [address] Apr, [facility] [address] [id number] [place] [address] Mar, [facility] [address] [id number] [place] [address] Mar, [facility] [address] [id number] [place] [address] February, [facility] [address] [id number] [place] [address] February, [facility] [address] [id number] [place] [address] February, [facility] [address] [id number] [place] [address] February, [facility] [place] [facility] [address] [id number] [place] [address] Jan, [facility] [place] [facility] [address] [id number] [place] [address] Jan, [facility] [place] [facility] [address] [address] [id number] [place] [address] Jan, [facility] [place] [facility] [address] [id number] [place] [address] 04 Jan, 2013 [facility] [address] [id number] [place] [address] 20 Dec, 2012 [facility] [place] [facility] [address] [id number] [place] [address] 13 Dec, 2012 [facility] [address] [id number] [place] [address] Dec, [facility] [place] [facility] [address] [id number] [place] [address] 22 Nov, 2012 [facility] [address] [id number] [place] [address] 15 Nov, 2012 [facility] [address] [id number] [place] [address] Nov, [facility] [address] [facility] [id number] [place] [address] Oct, [facility] [address] [id number] [place] [address] Oct, [facility] [address] [id number] [place] [address] Sep, [facility] [address] [facility] [id number] [place] [address] Sep, [facility] [address] [id number] [place] [address] Sep, [facility] [place] [facility] [address] [id number] [place] [address] Sep, [facility] [place] [facility] [address] [id number] [place] [address] Sep, [facility] [place] [facility] [address] [id number] [place] [address] Aug, [facility] [place] [facility] [address] [facility] [id number] [place] [address] Aug, [facility] [place] [facility] [address] [id number] [place] [address] Aug, [facility] [place] [facility] [address] [id number] [place] [address] Aug, [facility] [place] [facility] [address] [id number] [place] [address] Aug, [facility] [place] [facility] [address] [id number] [place] [address] Aug, [facility] [place] [facility] [address] [id number] [place] [address] Jun, [facility] [place] [facility] [address] [id number] [place] [address] Jun, [facility] [place] [facility] [address] [id number] [place] [address] Jun, [facility] [place] [facility] [address] [id number] [place] [address] May, [facility] [place] [facility] [address] [id number] [place] [address] May, [facility] [place] [facility] [address] [id number] [place] [address] May, [facility] [place] [facility] [address] [id number] [place] [address] May, [facility] [place] [facility] [address] [id number] [place] [address] Apr, [facility] [place] [facility] [address] [id number] [place] [address] Mar, [facility] [place] [facility] [address] [id number] [place] [address] Mar, [facility] [place] [facility] [address] [id number] [place] [address] Mar, [facility] [place] [facility] [address] [id number] [place] [address] February, [facility] [address] [id number] [place] [address] February, [facility] [place] [facility] [address] [id number] [place] [address] February, [facility] [place] [facility] [address] [id number] [place] [address] February, [facility] [place] [facility] [address] [id number] [place] [address] Dec, [facility] [place] [facility] [address] [id number] [place] [address] Dec, [facility] [place] [facility] [address] [id number] [place] [address] Dec, [facility] [place] [facility] [address] [id number] [place] [address] Dec, [facility] [place] [facility] [address] [id number] [place] [address] Nov, [facility] [place] [facility] [address] [id number] [place] [address] Nov, [facility] [place] [facility] [address] [id number] [place] [address] Nov, [facility] [place] [facility] [address] [id number] [place] [address] 25[address] Nov, [facility] [place] [facility] [address] [id number] [place] [address] Nov, [facility] [place] [facility] [address] [id number] [place] [address] Oct, [facility] [place] [facility] [address] [id number] [place] [address] Oct, [facility] [place] [facility] [address] [id number] [place] [address] Oct, [facility] [place] [facility] [address] [id number] [place] [address] 265[address] Aug, [facility] [place] [facility] [address] [id number] [place] [address] Aug, [facility] [place] [facility] [address] [id number] [place] [address] Jul, [facility] [place] [facility] [address] [id number] [place] [address] Jul, [facility] [place] [facility] [address] [id number] [place] [address] Jul, [facility] [place] [facility] [address] [id number] [place] [address] Jul, [facility] [place] [facility] [address] [id number] [place] [address] Jul, [facility] [place] [facility] [address] [id number] [place] [address] Jul, [facility] [place] [facility] [address] [id number] [place] [address] Jul, [facility] [place] [facility] [address] [id number] [place] [address] Jul, [facility] [place] [facility] [address] [id number] [place] [address] May, [facility] [place] [facility] [address] [id number] [place] [address] February, [facility] [place] [facility] [address] [id number] [place] [address] Nov, [facility] [place] [facility] [address] [id number] [place] [address] Sep, [facility] [place] [facility] [address] [id number] [place] [address] 2546 Aug, [facility] [place] [facility] [address] [id number] [place] [address] Oct, [facility] [address] [facility] [id number] [address] Jul, [facility] [address] [facility] [id number] [place] [address] Jun, [facility] [address] [facility] [id number] [place] [address] Mar, [facility] [address] [facility] [id number] [place] [address] Mar, [facility] [address] [facility] [id number] [place] [address] Nov, IMMUNIZATIONS No Known Immunizations SOCIAL HISTORY Never Assessed REASON FOR VISIT f/u [employer] MA PLAN OF CARE Activity Details Follow Up 3 Months Reason: f/u VITAL SIGNS Height 66 in 2018-01-23 Weight 129 lbs 2018-01-23 Temperature 98 degrees Fahrenheit 2018-01-23 Heart Rate 72 bpm 2018-01-23 Respiratory Rate 20 2018-01-23 BMI 20.82 kg/m2 2018-01-23 Blood pressure systolic 106 mmHg 2018-01-23 Blood pressure diastolic 68 mmHg 2018-01-23 MEDICATIONS Medication Instructions Dosage Frequency Start Date End Date Duration Status Toprol XL 25 MG Orally Once a day 1 tablet 24h Active Diclofenac Sodium 1 Ophthalmic Four times a day 1 application to affected area 6h Active Levothyroxine Sodium 25 MCG TAKE ONE TABLET BY MOUTH DAILY 30 Active Aspir-Low 81 MG Orally three times weekly 1 tablet Active Ferrous Sulfate 325 (65 Fe) MG Orally Once a day 1 tablet 24h Active Docusate Sodium 50 MG Orally 2 times a day 1 capsule as needed 12h Active Metoclopramide HCl 5MG Orally 3 times a day 1 tablet 8h 90 days Not- Taking Cholecalciferol 1000 UNIT Orally Once a day 1 capsule 24h Active Flecainide Acetate 50 MG Orally twice a day 1 tablet 12h Active Tramadol HCl 50 mg Orally every 6 hrs 2 tablet as needed 6h Nov, Not-Taking Tylenol Extra Strength 500 MG Orally every 6 hrs 1 tablet as needed 6h Active Eliquis 5 mg Orally 2 times a day 1 tablet 12h Active Wellbutrin SR 150 MG Orally Twice a day 1 tablet 12h Jan, 30 day(s) Active Polyethylene Glycol 3350 Orally 2 times a day MIX 17 GRAMS IN 8 OZ OF SUITABLE LIQUID 12h 30 Active Lasix 40 mg Orally every 48 hours 1/2 tablet Active MiraLax - Orally Once a day 1 packet mixed with 8 ounces of fluid 24h Active Omeprazole 20 mg Orally Once a day 1 capsule 24h Apr, 90 days Active Xanax 1 MG Orally Twice a day as needed 1.5 tablets Jan, 30 days Active RESULTS No Results PROCEDURES Procedure Date Ordered Result Body Site [facility] VISIT ESTABLISHED PATIENT January 23, 2018 INSTRUCTIONS MEDICATIONS ADMINISTERED No Known Medications [...]
--- OUTSIDE RECORDS SUMMARY | 2019-01-24 07:38 | XMS REPORT ---
Author Author FRANCESCO PHILLIPS [facility] Address [address] [place] [address] Care Team Providers Care Guide Dog Mobility Instructor Name Role Phone FRANCESCO PHILLIPS Unavailable PROBLEMS Type Condition ICD9-CM Code DEU02-VB Code Onset Dates Condition Status SNOMED Code Problem Paroxysmal atrial fibrillation I48.0 Active 454430794 Problem Generalized anxiety disorder F41.1 Active 87504485 Problem Gastro-esophageal reflux disease without esophagitis K21.9 Active 267722187 Problem Chronic kidney disease, stage 1 N18.1 Active 682856302 Problem Secondary hyperparathyroidism of renal origin N25.81 Active 78440543 Problem 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 Active 372373784 Problem MDD (major depressive disorder), recurrent, in partial remission F33.41 Active 22714163 Problem Acquired hypothyroidism E03.9 Active 479832361 Problem Chronic diastolic heart failure I50.32 Active 489912483 Problem Arthritis M19.90 Active 6281365 Problem Depression F32.9 Active 75790169 Problem Anxiety F41.9 Active 05777967 Problem Chronic kidney disease (CKD) stage G1/A1, glomerular filtration rate ( GFR) equal to or greater than 90 mL/min/1.73 square meter and albuminuria creatinine ratio less than 30 mg/g N18.1 Active 483079959 Problem Atrial fibrillation, unspecified type I48.91 Active 11816156 ALLERGIES No Information ENCOUNTERS Encounter Location Date Diagnosis [facility] [address] [facility] [id number] [address] Mar, Pain, dental K08.89 [facility] [address] [facility] [id number], [place] [address] February, Medicare annual wellness visit, initial Z00.00 ; MDD (major depressive disorder), recurrent, in partial remission F33.41 ; Atrial fibrillation, unspecified type I48.91 ; Chronic diastolic heart failure I50.32 ; Secondary hyperparathyroidism of renal origin N25.81 ; Acquired hypothyroidism E03.9 ; Anxiety F41.9 ; Chronic kidney disease, stage 1 N18.1 and Encounter for immunization Z23 [place] [address] [address] February, Closed fracture of one rib of right side, initial encounter S22.31XA ; Acute cystitis with hematuria N30.01 ; Right flank pain R10.9 and Rib pain on right side R07.81 [place] [address] [address]- [address] Jan, Acquired hypothyroidism E03.9 ; 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 ; Chronic kidney disease (CKD) stage G1/A1, glomerular filtration rate (GFR) equal to or greater than 90 mL/min/1.73 square meter and albuminuria creatinine ratio less than 30 mg/g N18.1 ; Paroxysmal atrial fibrillation I48.0 ; Chronic diastolic heart failure I50.32 and Secondary hyperparathyroidism of renal origin N25.81 [place] [address] [address]- [address] Jan, Arthritis M19.90 [place] [address] 24109- 8551 Jan, Paroxysmal atrial fibrillation I48.0 [place] [address] 77541- 9509 Jan, Paroxysmal atrial fibrillation I48.0 [place] [address] 76844- 3089 Jan, [place] [address] 52927- 5824 Jan, Generalized anxiety disorder F41.1 [place] [address] 09523- 4117 Jan, Generalized anxiety disorder F41.1 and MDD (major depressive disorder), recurrent, in partial remission F33.[address] [place] [address] Dec, Arthritis M19.90 [facility] [address] [place] [id number] [place] [address] 68638- 6169 Dec, [facility] [address] [place] [id number] [place] [address] 82883- 1958 Nov, Arthritis M19.90 ; Chronic kidney disease (CKD) stage G1/A1 , glomerular filtration rate (GFR) equal to or greater than 90 mL/min/1.73 square meter and albuminuria creatinine ratio less than 30 mg/g N18.1 and Anxiety F41.9 [place] [address] [place] [id number] [place] [address] 08485- 9450 Nov, [facility] [address] 8[address]76- 5490 Nov, [facility] [address] 40223- 7333 Nov, [facility] [address] [place] [id number] [place] [address] 96620- 7748 Nov, [facility] [address] [place] [id number] [place] [address] 35227- 8286 Nov, [facility] [address] [place] [id number] [place] [address] 13199- 5066 Oct, Generalized anxiety disorder F41.1 [facility] [address] [place] [id number] [place] [address] 87087- 8291 Sep, Atrial fibrillation, unspecified type I48.91 [facility] [address] [place] [id number] [place] [address] 17063- 8128 Sep, Generalized anxiety disorder F41.1 and MDD (major depressive disorder), recurrent, in partial remission F33.41 [place] [address] [place] [id number] [place] [address] 83901- 2475 Sep, [facility] [address] [place] [id number] [place] [address] 81540- 5400 Aug, Generalized anxiety disorder F41.1 [facility] [address] [place] [address] 91726- 8298 Aug, [facility] [address] [place] [id number] [place] [address] 89131- 9116 Aug, Paroxysmal atrial fibrillation I48.0 and Gastro-esophageal reflux disease without esophagitis K21.9 [facility] [address] [place] [id number] [place] [address] 57473- 2902 Jul, [facility] [address] [place] [id number] [place] [address] 06687- 3426 Jul, Generalized anxiety disorder F41.1 [place] [address] [place] [id number] [place] [address] 72485- 1775 Jun, Generalized anxiety disorder F41.1 and MDD (major depressive disorder), recurrent, in partial remission F33.41 [facility] [address] [place] [id number] [place] [address] 28859- 2085 May, Recurrent major depressive disorder, in partial remission F33.41 [facility] [address] [place] [id number] [place] [address] 63294- 0722 May, Anxiety F41.9 and Paroxysmal atrial fibrillation I48.0 [place] [address] [place] [address] 62739- 3669 Apr, Generalized anxiety disorder F41.1 [facility] [address] [place] [address] 18441- 9734 Mar, [facility] [address] [place] [address] 00426- 9263 Mar, Generalized anxiety disorder F41.1 and MDD (major depressive disorder), recurrent, in partial remission F33.41 [facility] [address] [place] [address] 06760- 6510 February, Paroxysmal atrial fibrillation I48.0 and Anxiety F41.9 [facility] [address] [id number], [place] [address] February, MDD (major depressive disorder), recurrent, in partial remission F33.41 [facility] [address]65[address], [place] [address] Jan, [facility] [address] [place] [address] Jan, [facility] [address] [place] [id number] [place] [address] 83888- 9411 Jan, [facility] [id number] [place] [address] 12036- 3724 Jan, [facility] [address] [place] [id number] [place] [address] 54118- 3566 Dec, [facility] [address] [place] [id number] [place] [address] 27153- 9142 Dec, Generalized anxiety disorder F41.1 [facility] [address] [place] [id number] [place] [address] 16560- 4300 Dec, Generalized anxiety disorder F41.1 and MDD (major depressive disorder), recurrent, in partial remission F33.41 [facility] [address], [place] [address]- 7851 Dec, [facility] [address], [place] [address]- 8826 Dec, [facility] [address], [place] [address]- 2621 Dec, [facility] [address], [place] [address]- 6192 Nov, [facility] [address] [place] [id number] [place] [address] 88420- 4255 Nov, Gastro-esophageal reflux disease without esophagitis K21.9 [facility] [address], [place] [address] 8[address] Nov, Atrial fibrillation, unspecified type I48.91 and Anxiety F41.9 [facility] [address] [place] [id number] [place] [address] 41869- 8117 Oct, [facility] [address] [place] [id number] [place] [address] 85179- 3875 Oct, [facility] [address] [place] [id number] [place] [address] 39069- 4310 Oct, Depression F32.9 and Atrial fibrillation, unspecified type I48.91 [facility] [address] [place] [id number] [place] [address] 85799- 4979 Oct, [facility] [address] [place] [id number] [place] [address] 23288- 9048 Sep, Depression F32.9 [facility] [address] [place] [id number] [place] [address] 50441- 5675 Sep, Recurrent major depressive disorder, in partial remission F33.41 and Generalized anxiety disorder F41.1 [place] [address] [place] [id number] [place] [address] 27531- 1544 Sep, Paroxysmal atrial fibrillation I48.0 and Anxiety F41.9 [facility] [address] [place] [id number] [place] [address] 57814- 0348 Sep, [facility] [address] [place] [id number] [place] [address] 93727- 8780 Sep, [facility] [address] [place] [id number] [place] [address] 95405- 7203 Sep, Gastro-esophageal reflux disease without esophagitis K21.9 [facility] [address] [place] [id number] [place] [address] 44030- 2263 Aug, [facility] [address] [place] [id number] [place] [address] 23990- 8619 Aug, [facility] [address] [place] [id number] [place] [address] 14511- 3500 Aug, Atrial fibrillation, unspecified type I48.91 [place] [address] [place] [address] 12753- 1752 Jul, Major depressive disorder, recurrent, in partial remission F33.41 and Generalized anxiety disorder F41.1 [place] [address] [place] [id number] [place] [address] 14988- 3374 Jul, [place] [address] [place] [id number] [place] [address] 54405- 3744 30 Jun, 2016 [place] [address] [place] [id number] [place] [address] 90068- 3696 15 Jun, 2016 Bronchitis J40 and Memory loss R41.3 [place] [address] [place] [id number] [place] [address] 18192- 5324 14 Jun, 2016 Upper respiratory infection with cough and congestion J06.9 [place] [address] [place] [id number] [place] [address] 77101- 8120 Apr, [place] [address] [place] [id number] [place] [address] 46748- 9065 Apr, Major depressive disorder, recurrent, unspecified F33.9 ; Anxiety F41.9 and Psychophysiological insomnia F51.04 [place] [address] [place] [id number] [place] [address] 23390- 7404 Mar, [place] [address] [place] [id number] [place] [address] 95945- 6463 Mar, [place] [address] [place] [id number] [place] [address] 75175- 3191 February, [place] [address] [place] [id number] [place] [address] 67667- 6163 Jan, Postural hypotension I95.1 [facility] [address] [place] [address] 80602- 1727 14 Jan, 2016 Recurrent major depressive disorder in remission F33.40 ; Generalized anxiety disorder F41.1 and Psychophysiological insomnia F51.04 [place] [address] [place] [address] 43027- 8049 14 Dec, 2015 Generalized anxiety disorder F41.1 [facility] [address] [place] [id number] [place] [address] 47444 -1819 11 Dec, 2015 Unspecified fall, initial encounter W19.XXXA [facility] [address] [place] [id number] [place] [address] 83787- 9145 Nov, Depression F32.9 and Anxiety F41.9 [facility] [address] [place] [id number] [place] [address] 93822- 3710 Oct, [place] [address] 65944- 6828 Oct, [facility] [address] [place] [id number] [place] [address] 45797- 9073 Oct, Chronic kidney disease, stage 3 (moderate) N18.3 [place] [address] [place] [id number] [place] [address] 56970- 9254 Oct, Head contusion S00.93XA ; Cervical strain S16.1XXA and Arthritis M19.90 [place] [address] [place] [id number] [place] [address] 67364- 4772 Oct, Chronic kidney disease 585.9 [place] [address] [place] [id number] [place] [address] 97310- 4412 Oct, Chronic kidney disease 585.9 [place] [address] [place] [id number] [place] [address] 33050- 0415 Oct, [place] [address] [place] [id number] [place] [address] 23043- 9625 Sep, [place] [address] [place] [id number] [place] [address] 54882- 2203 Aug, Chronic kidney disease N18.9 [place] [address] [place] [id number] [place] [address] 74619- 4111 Aug, Chronic kidney disease (CKD) stage G1/A1, glomerular filtration rate (GFR) equal to or greater than 90 mL/min/1.73 square meter and albuminuria creatinine ratio less than 30 mg/g N18.1 and GERD (gastroesophageal reflux disease) K21.9 [facility] [address] [place] [id number] [place] [address] 63298- 3811 Aug, [facility] [address] 35259- 5769 Jun, Generalized anxiety disorder 300.02 ; Major depression, recurrent 296.30 and Persistent 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 [facility] [address] 67745- 0605 Jun, [facility] [address] 40185- 6563 May, [facility] [address] 53355- 1537 May, Generalized anxiety disorder 300.02 and Depression, major, recurrent, in remission 296.35 [facility] [address] [place] [id number] [place] [address] 29562- 2994 May, [facility] [address] 09234- 9972 May, [facility] [address] [place] [id number] [place] [address] 44602- 6330 May, [facility] [address] [place] [id number] [place] [address] 93803- 5330 May, [facility] [address] [place] [id number] [place] [address] 72294- 8153 May, Chronic kidney disease 585.9 [facility] [address] 02601- 9106 Apr, Chronic kidney disease 585.9 [facility] [address] [place] [id number] [place] [address] 20246- 6508 Apr, [facility] [address] [place] [id number], [place] [address]- 8402 Apr, Arthropathy 716.90 ; Hyperlipidemia 272.4 ; Hypothyroidism 244.9 and GERD (gastroesophageal reflux disease) 530.81 [facility] [address] [place] [id number] [place] [address] 45724- 8420 Apr, Arthropathy 716.90 ; Hypothyroidism 244.9 ; Hyperlipidemia 272.4 and GERD (gastroesophageal reflux disease) 530.81 [facility] [address] [place] [id number] [place] [address] 91755- 2049 17 Mar, 2015 [facility] [address] 325911- 6861 February, Depression, major, recurrent, in remission 296.35 and Generalized anxiety disorder 300.02 [facility] [address] [place] [id number] [place] [address] 16521- 4586 February, [facility] [address] [place] [id number] [place] [address] 35043- 7786 February, [facility] [address] [place] [id number] [place] [address] 69416- 5138 Jan, [facility] [address] [place] [id number] [place] [address] 14424- 1659 Jan, [facility] [address] [place] [id number] [place] [address] 59356- 6569 Oct, [facility] [address] [place] [id number] [place] [address] 51886- 4636 Oct, [facility] [address] [place] [id number] [place] [address] 43038- 0272 Oct, [facility] [address] [place] [id number] [place] [address] 69164- 0175 Oct, [facility] [address] [place] [id number] [place] [address] 443281- 2551 Oct, [facility] [address] [place] [id number] [place] [address] 86962- 8161 Oct, [facility] [place] [facility] [address] [id number] [place] [address]- 9742 Sep, [facility] [place] [facility] [address] [id number] [place] [address]- 0178 Sep, [facility] [place] [facility] [address] [id number] [place] [address]- 1035 Aug, [facility] [place] [facility] [address] [id number] [place] [address]- 8581 Aug, [facility] [place] [facility] [address] [id number] [place] [address]- 0858 Aug, [facility] [place] [facility] [address] [id number] [place] [address]- 7801 Aug, [facility] [place] [facility] [address] [id number] [place] [address]- 0445 Jul, [facility] [place] [facility] [address] [id number] [place] [address]- 0775 Jul, [facility] [place] [facility] [address] [id number] [place] [address]- 1862 Jul, [facility] [place] [facility] [address] [id number] [place] [address]- 6191 Jul, [facility] [place] [facility] [address] [id number], [place] [address]- 3166 29 Jun, 2014 [facility] [place] [facility] [address] [id number] [place] [address]- 2728 22 Jun, 2014 [facility] [place] [facility] [address] [id number] [place] [address]- 0348 22 Jun, 2014 [facility] [place] [facility] [address] [id number] [place] [address]- 8183 10 Jun, 2014 [facility] [place] [facility] [address] [id number] [place] [address]- 3291 10 Jun, 2014 [facility] [place] [facility] [address] [id number] [place] [address]- 1381 Jun, [facility] [place] [facility] [address] [id number] [place] [address]- 2745 Jun, [facility] [place] [facility] [address] [id number] [place] [address]- 9928 May, [facility] [place] [facility] [address] [id number] [place] [address]- 1559 May, [facility] [place] [facility] [address] [id number] [place] [address]- 0819 May, [facility] [place] [facility] [address] [id number] [place] [address]- 0881 May, [facility] [place] [facility] [address] [id number] [place] [address]- 2816 Apr, [facility] [place] [facility] [address] [id number] [place] [address]- 3956 Apr, [facility] [place] [facility] [address] [id number] [place] [address]- 4481 Apr, [facility] [place] [facility] [address] [id number] [place] [address]- 4358 Apr, [facility] [place] [facility] [address] [id number] [place] [address]- 0582 Apr, [facility] [place] [facility] [address] [id number] [place] [address]- 4796 Apr, [facility] [place] [facility] [address] [id number] [place] [address]- 1825 Apr, [facility] [place] [facility] [address] [id number] [place] [address]- 6982 Apr, [facility] [place] [facility] [address] [id number] [place] [address]- 4044 Mar, [facility] [place] [facility] [address] [id number] [place] 8302 Mar, [facility] [place] [facility] [address] [id number] [place] [address]- 3346 Mar, [facility] [place] [facility] [address] [id number] [place] [address]- 8889 Mar, [facility] [place] [facility] [address] [id number] [place] [address]- 3813 Mar, [facility] [place] [facility] [address] [id number] [place] [address]- 4445 Mar, [facility] [place] [facility] [address] [id number] [place] [address]- 5975 Mar, [facility] [place] [facility] [address] [id number] [place] [address]- 2716 Mar, [facility] [place] [facility] [address] [id number] [place] [address]- 7468 Dec, [facility] [place] [facility] [address] [id number] [place] [address]- 7471 Dec, [facility] [place] [facility] [address] [id number] [place] [address]- 8847 Dec, [facility] [place] [facility] [address] [id number] [place] [address]- 8647 Dec, [facility] [place] [facility] [address] [id number] [place] [address]- 0323 Dec, [facility] [place] [facility] [address] [id number] [place] [address]- 7018 Dec, [facility] [place] [facility] [address] [id number] [place] [address]- 7610 Dec, [facility] [place] [facility] [address] [id number] [place] [address]- 1666 Dec, [facility] [place] [facility] [address] [id number] [place] [address]- 9552 Nov, [facility] [place] [facility] [address] [id number] [place] [address]- 5625 26 Nov, 2013 [facility] [place] [facility] [address] [id number] [place] [address]- 2706 Nov, 2013 [facility] [place] [facility] [address] [id number] [place] [address] 2546 Nov, 2013 [facility] [place] [facility] [address] [id number] [place] [address] 2546 14 Nov, 2013 [facility] [place] [facility] [address] [id number] [place] [address]- [address] Nov, 2013 [facility] [place] [facility] [address] [id number] [place] [address] Nov, 2013 [facility] [place] [facility] [address] [facility] [id number] [place] [address] [address] Nov, [facility] [place] [facility] [address] [facility] [id number] [place] [address] Aug, [facility] [place] [facility] [address] [id number] [place] [address] Aug, [facility] [place] [facility] [address] [facility] [id number] [place] [address] 18 Jul, 2013 [facility] [place] [facility] [address] [facility] [id number] [place] [address] 18 Jul, 2013 [facility] [place] [facility] [address] [facility] [id number] [place] [address] 02 Jul, 2013 [facility] [place] [facility] [address] [id number] [place] [address] 30 Jun, 2013 [facility] [place] [facility] [address] [id number] [place] [address] 30 Jun, 2013 [facility] [place] [facility] [address] [id number] [place] [address] 24 Jun, 2013 [facility] [place] [facility] [address] [id number] [place] [address] Jun, [facility] [address] [id number] [place] [address] Jun, [facility] [place] [facility] [address] [id number] [place] [address] May, [facility] [place] [facility] [address] [id number] [place] [address] Apr, [facility] [place] [facility] [address] [id number] [place] [address] Apr, [facility] [address] [id number] [place] [address] Apr, [facility] [place] [facility] [address] [id number] [place] [address] Mar, [facility] [place] [facility] [address] [id number] [place] [address] Mar, [facility] [address] [id number] [place] [address] February, [facility] [place] [facility] [address] [id number] [place] [address] February, [facility] [place] [facility] [address] [id number] [place] [address] February, [facility] [place] [facility] [address] [id number] [place] [address] February, [facility] [place] [facility] [address] [id number] [place] [address] Jan, [facility] [place] [facility] [address] [id number] [place] [address] Jan, [facility] [place] [facility] [address] [id number] [place] [address] Jan, [facility] [place] [facility] [address] [id number] [place] [address] Jan, [facility] [place] [facility] [address] [id number] [place] [address] 20 Dec, 2012 [facility] [address] [id number] [place] [address] 13 Dec, 2012 [facility] [place] [facility] [address] [id number] [place] [address] Dec, [facility] [place] [facility] [address] [id number] [place] [address] 22 Nov, 2012 [facility] [place] [facility] [address] [id number] [place] [address] 15 Nov, 2012 [facility] [place] [facility] [address] [id number] [place] [address] Nov, [facility] [place] [facility] [address] [id number] [place] [address] Oct, [facility] [address] [id number] [place] [address] Oct, [facility] [place] [facility] [address] [id number] [place] [address] Sep, [facility] [place] [facility] [address] [id number] [place] [address] Sep, [facility] [place] [facility] [address] [id number] [place] [address] Sep, [facility] [place] [facility] [address] [id number] [place] [address] Sep, [facility] [place] [facility] [address] [id number] [place] [address] Sep, [facility] [place] [facility] [address] [id number] [place] [address] Aug, [facility] [place] [facility] [address] [id number] [place] [address] Aug, [facility] [place] [facility] [address] [id number] [place] [address] Aug, [facility] [place] [facility] [address] [id number] [place] [address] Aug, [facility] [place] [facility] [address] [id number] [place] [address] Aug, [facility] [place] [facility] [address] [id number] [place] [address] Aug, [facility] [place] [facility] [address] [id number] [place] [address] Jun, [facility] [place] [facility] [address] [id number] [place] [address] Jun, [facility] [place] [facility] [address] [id number] [place] [address] Jun, [facility] [place] [facility] [address] [id number] [place] [address] May, [facility] [place] [facility] [address] [id number] [place] [address] May, [facility] [place] [facility] [address] [id number] [place] [address] May, [facility] [place] [facility] [address] [id number] [place] [address] May, [facility] [place] [facility] [address] [id number] [place] [address] Apr, [facility] [place] [facility] [address] [id number] [place] [address] Mar, [facility] [place] [facility] [address] [id number] [place] [address] Mar, [facility] [place] [facility] [address] [id number] [place] [address] Mar, [facility] [place] [facility] [address] [id number] [place] [address] February, [facility] [place] [facility] [address] [id number] [place] [address] February, [facility] [address] [id number] [place] [address] February, [facility] [address] [id number] [place] [address] February, [facility] [address] [facility] [id number] [place] [address] Dec, [facility] [address] [id number] [place] [address] Dec, [facility] [address] [id number] [place] [address] Dec, [facility] [address] [facility] [id number] [place] [address] 2546 Dec, [facility] [address] [facility] [id number] [place] [address] Nov, [facility] [place] [facility] [address] [id number] [place] [address] Nov, [facility] [address] [facility] [id number] [place] [address] Nov, [facility] [address] [facility] [id number] [place] [address] Nov, [facility] [address] [facility] [id number] [place] [address] 25[address] Nov, [facility] [place] [facility] [address] [id number] [place] [address] Oct, [facility] [place] [facility] [address] [id number] [place] [address] Oct, [facility] [place] [facility] [address] [id number] [place] [address] Oct, [facility] [place] [facility] [address] [facility] [id number] [place] [address] Aug, [facility] [place] [facility] [address] [id number] [place] [address] Aug, [facility] [place] [facility] [address] [id number] [place] [address] Jul, [facility] [place] [facility] [address] [id number] [place] [address] Jul, [facility] [place] [facility] [address] [id number] [place] [address]687 Jul, [facility] [place] [facility] [address] [id number] [place] [address] Jul, [facility] [place] [facility] [address] [id number] [place] [address] Jul, [facility] [place] [facility] [address] [id number] [place] [address] Jul, [facility] [place] [facility] [address] [id number] [place] [address] Jul, [facility] [place] [facility] [address] [id number] [place] [address] Jul, [facility] [place] [facility] [address] [id number] [place] [address] May, [facility] [place] [facility] [address] [id number] [place] [address] February, [facility] [place] [facility] [address] [id number] [place] [address] Nov, [facility] [place] [facility] [address] [id number] [place] [address] Sep, [facility] [place] [facility] [address] [id number] [place] [address]49 Aug, [facility] [place] [facility] [address] [id number] [place] [address] 14 Oct, 2009 [facility] [place] [facility] [address] [id number] [place] [address] Jul, [facility] [address] [facility] [id number] [place] [address] Jun, [facility] [address] [facility] [id number] [address] Mar, [facility] [address] [facility] [id number] [place] [address] Mar, [facility] [address] [facility] [id number], [place] [address] Nov, IMMUNIZATIONS No Known Immunizations SOCIAL HISTORY Never Assessed REASON FOR VISIT EKG PLAN OF CARE VITAL SIGNS MEDICATIONS No Known Medications RESULTS No Results PROCEDURES No Known [...] 2017 Hospitalization History surgeries Hospitalization History [facility]- irregular heart beat, shortness of breath Aug 2016 Hospitalization History post left hip surgery oct 2017
--- OUTSIDE RECORDS SUMMARY | 2019-01-24 07:39 | XMS REPORT ---
Author Author FRANCESCO PHILLIPS [facility] Address [address] [place] [address] Care Team Providers Care Plastic Surgery Coordinator Name Role Phone FRANCESCO PHILLIPS Unavailable PROBLEMS Type Condition ICD9-CM Code IHW90-MQ Code Onset Dates Condition Status SNOMED Code Problem Paroxysmal atrial fibrillation I48.0 Active 681597095 Problem Generalized anxiety disorder F41.1 Active 54932734 Problem Gastro-esophageal reflux disease without esophagitis K21.9 Active 995187969 Problem Chronic kidney disease, stage 1 N18.1 Active 044220037 Problem Secondary hyperparathyroidism of renal origin N25.81 Active 25002962 Problem 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 Active 347608922 Problem MDD (major depressive disorder), recurrent, in partial remission F33.41 Active 98073347 Problem Acquired hypothyroidism E03.9 Active 455950888 Problem Chronic diastolic heart failure I50.32 Active 792695270 Problem Arthritis M19.90 Active 9484924 Problem Depression F32.9 Active 47888218 Problem Anxiety F41.9 Active 08436611 Problem Chronic kidney disease (CKD) stage G1/A1, glomerular filtration rate ( GFR) equal to or greater than 90 mL/min/1.73 square meter and albuminuria creatinine ratio less than 30 mg/g N18.1 Active 959109050 Problem Atrial fibrillation, unspecified type I48.91 Active 00235277 ALLERGIES No Information ENCOUNTERS Encounter Location Date Diagnosis [facility] [address] [facility] [id number], [place] [address] Mar, Pain, dental K08.89 [facility] [address] [facility] [id number], [place] [address] February, Medicare annual wellness visit, initial Z00.00 ; MDD (major depressive disorder), recurrent, in partial remission F33.41 ; Atrial fibrillation, unspecified type I48.91 ; Chronic diastolic heart failure I50.32 ; Secondary hyperparathyroidism of renal origin N25.81 ; Acquired hypothyroidism E03.9 ; Anxiety F41.9 ; Chronic kidney disease, stage 1 N18.1 and Encounter for immunization Z23 [place] [address] [address] February, Closed fracture of one rib of right side, initial encounter S22.31XA ; Acute cystitis with hematuria N30.01 ; Right flank pain R10.9 and Rib pain on right side R07.81 [place] [address] [address] Jan, Acquired hypothyroidism E03.9 ; 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 ; Chronic kidney disease (CKD) stage G1/A1, glomerular filtration rate (GFR) equal to or greater than 90 mL/min/1.73 square meter and albuminuria creatinine ratio less than 30 mg/g N18.1 ; Paroxysmal atrial fibrillation I48.0 ; Chronic diastolic heart failure I50.32 and Secondary hyperparathyroidism of renal origin N25.81 [place] [address] [address] Jan, Arthritis M19.90 [place] [address] [address]- 12[address] Jan, Paroxysmal atrial fibrillation I48.0 [place] [address] [address]- [address] Jan, Paroxysmal atrial fibrillation I48.0 [place] [address] [address]- 8267 Jan, [place] [address] [address]- 40[address] Jan, Generalized anxiety disorder F41.1 [place] [address] 8[address]- 8[address] Jan, Generalized anxiety disorder F41.1 and MDD (major depressive disorder), recurrent, in partial remission F33.[address] [place] [address] Dec, Arthritis M19.90 [facility] [address] [place] [id number] [place] [address] 29583- 8995 Dec, [facility] [address] [place] [id number] [place] [address] 06038- 7843 Nov, Arthritis M19.90 ; Chronic kidney disease (CKD) stage G1/A1 , glomerular filtration rate (GFR) equal to or greater than 90 mL/min/1.73 square meter and albuminuria creatinine ratio less than 30 mg/g N18.1 and Anxiety F41.9 [place] [address] [place] [id number] [place] [address] 04418- 0732 Nov, [facility] [address] [address]- 46[address] Nov, [facility] [address] 41047- 8641 Nov, [facility] [address] [place] [id number] [place] [address] 76997- 2486 Nov, [facility] [address] [place] [id number] [place] [address] 98043- 3755 Nov, [facility] [address] [place] [id number] [place] [address] 15538- 8896 Oct, Generalized anxiety disorder F41.1 [facility] [address] [place] [id number] [place] [address] 92596- 2936 Sep, Atrial fibrillation, unspecified type I48.91 [facility] [address] [place] [id number] [place] [address] 80209- 2829 Sep, Generalized anxiety disorder F41.1 and MDD (major depressive disorder), recurrent, in partial remission F33.41 [place] [address] [place] [id number] [place] [address] 03736- 7619 Sep, [facility] [address] [place] [id number] [place] [address] 48595- 9406 Aug, Generalized anxiety disorder F41.1 [facility] [id number] [place] [address] 87044- 5657 Aug, [facility] [address] [place] [id number] [place] [address] 90028- 5563 Aug, Paroxysmal atrial fibrillation I48.0 and Gastro-esophageal reflux disease without esophagitis K21.9 [facility] [address] [place] [id number] [place] [address] 93514- 2706 Jul, [facility] [address] [place] [id number] [place] [address] 20118- 7085 Jul, Generalized anxiety disorder F41.1 [place] [address] [place] [id number] [place] [address] 71547- 6716 Jun, Generalized anxiety disorder F41.1 and MDD (major depressive disorder), recurrent, in partial remission F33.41 [facility] [address] [place] [id number] [place] [address] 70347- 4672 May, Recurrent major depressive disorder, in partial remission F33.41 [facility] [address] [place] [id number] [place] [address] 96079- 4157 May, Anxiety F41.9 and Paroxysmal atrial fibrillation I48.0 [place] [id number] [place] [address] 66667- 2270 Apr, Generalized anxiety disorder F41.1 [facility] [id number] [place] [address] 47261- 8389 Mar, [facility] [id number] [place] [address] 35562- 9078 Mar, Generalized anxiety disorder F41.1 and MDD (major depressive disorder), recurrent, in partial remission F33.41 [facility] [id number] [place] [address] 26561- 2853 February, Paroxysmal atrial fibrillation I48.0 and Anxiety F41.9 [facility] [address] [id number] [address] February, MDD (major depressive disorder), recurrent, in partial remission F33.41 [facility] [address], [place] [address] Jan, [facility] [address] [address] Jan, [facility] [address] [place] [id number] [place] [address] 48202- 8546 Jan, [facility] [id number] [place] [address] 82515- 5712 Jan, [facility] [address] [place] [id number] [place] [address] 03816- 0041 Dec, [facility] [address] [place] [id number] [place] [address] 00298- 6670 Dec, Generalized anxiety disorder F41.1 [facility] [address] [place] [id number] [place] [address] 03044- 7050 Dec, Generalized anxiety disorder F41.1 and MDD (major depressive disorder), recurrent, in partial remission F33.41 [facility] [address], [place] [address] 6[address] Dec, [facility] [address], [place] [address]- 8090 Dec, [facility] [address], [place] [address] 0287 Dec, [facility] [address], [place] [address] 7264 Nov, [facility] [address] [place] [id number] [place] [address] 02096- 8143 Nov, Gastro-esophageal reflux disease without esophagitis K21.9 [facility] [address], [place] [address] 119[address] Nov, Atrial fibrillation, unspecified type I48.91 and Anxiety F41.9 [facility] [address] [place] [id number] [place] [address] 26745- 6914 Oct, [facility] [address] [place] [id number] [place] [address] 98047- 8554 Oct, [facility] [address] [place] [id number] [place] [address] 81530- 4003 Oct, Depression F32.9 and Atrial fibrillation, unspecified type I48.91 [facility] [address] [place] [id number] [place] [address] 56361- 7665 Oct, [facility] [address] [place] [id number] [place] [address] 02442- 1437 Sep, Depression F32.9 [facility] [address] [place] [id number] [place] [address] 56168- 0739 Sep, Recurrent major depressive disorder, in partial remission F33.41 and Generalized anxiety disorder F41.1 [place] [address] [place] [id number] [place] [address] 73103- 5004 Sep, Paroxysmal atrial fibrillation I48.0 and Anxiety F41.9 [facility] [address] [place] [id number] [place] [address] 95900- 6698 Sep, [facility] [address] [place] [id number] [place] [address] 61400- 1656 Sep, [facility] [address] [place] [id number] [place] [address] 38301- 3018 Sep, Gastro-esophageal reflux disease without esophagitis K21.9 [facility] [address] [place] [id number] [place] [address] 14584- 6783 Aug, [facility] [address] [place] [id number] [place] [address] 01861- 1775 Aug, [facility] [address] [place] [id number] [place] [address] 86096- 2457 Aug, Atrial fibrillation, unspecified type I48.91 [place] [address] [place] [address] 06874- 4661 Jul, Major depressive disorder, recurrent, in partial remission F33.41 and Generalized anxiety disorder F41.1 [place] [address] [place] [id number] [place] [address] 33459- 5677 Jul, [place] [address] [place] [id number] [place] [address] 23532- 5832 30 Jun, 2016 [place] [address] [place] [id number] [place] [address] 75142- 6819 15 Jun, 2016 Bronchitis J40 and Memory loss R41.3 [place] [address] [place] [id number] [place] [address] 73515- 2671 14 Jun, 2016 Upper respiratory infection with cough and congestion J06.9 [place] [address] [place] [id number] [place] [address] 97979- 6850 Apr, [place] [address] [place] [id number] [place] [address] 44792- 3138 Apr, Major depressive disorder, recurrent, unspecified F33.9 ; Anxiety F41.9 and Psychophysiological insomnia F51.04 [place] [address] [place] [id number] [place] [address] 60492- 0871 Mar, [place] [address] [place] [id number] [place] [address] 92148- 0967 Mar, [place] [address] [place] [id number] [place] [address] 77639- 8763 February, [place] [address] [place] [id number] [place] [address] 52286- 6122 Jan, Postural hypotension I95.1 [facility] [address] [place] [address] 86503- 9258 14 Jan, 2016 Recurrent major depressive disorder in remission F33.40 ; Generalized anxiety disorder F41.1 and Psychophysiological insomnia F51.04 [place] [address] [place] [address] 03854- 7373 14 Dec, 2015 Generalized anxiety disorder F41.1 [facility] [address] [place] [id number] [place] [address] 35245 -4450 11 Dec, 2015 Unspecified fall, initial encounter W19.XXXA [facility] [address] [place] [id number] [place] [address] 80804- 5677 Nov, Depression F32.9 and Anxiety F41.9 [facility] [address] [place] [id number] [place] [address] 29171- 7767 Oct, [place] [address] 51683- 9536 Oct, [facility] [address] [place] [id number] [place] [address] 45878- 4964 Oct, Chronic kidney disease, stage 3 (moderate) N18.3 [place] [address] [place] [id number] [place] [address] 90856- 2801 Oct, Head contusion S00.93XA ; Cervical strain S16.1XXA and Arthritis M19.90 [place] [address] [place] [id number] [place] [address] 88774- 8870 Oct, Chronic kidney disease 585.9 [place] [address] [place] [id number] [place] [address] 25304- 8002 Oct, Chronic kidney disease 585.9 [place] [address] [place] [id number] [place] [address] 10891- 2690 Oct, [place] [address] [place] [id number] [place] [address] 09717- 0795 Sep, [place] [address] [place] [id number] [place] [address] 43675- 6453 Aug, Chronic kidney disease N18.9 [place] [address] [place] [id number] [place] [address] 52180- 0820 Aug, Chronic kidney disease (CKD) stage G1/A1, glomerular filtration rate (GFR) equal to or greater than 90 mL/min/1.73 square meter and albuminuria creatinine ratio less than 30 mg/g N18.1 and GERD (gastroesophageal reflux disease) K21.9 [facility] [address] [place] [id number] [place] [address] 12994- 9857 Aug, [facility] [address] 56402- 0768 Jun, Generalized anxiety disorder 300.02 ; Major depression, recurrent 296.30 and Persistent 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 [facility] [address] 67943- 9789 Jun, [facility] [address] 84949- 6395 May, [facility] [address] 46522- 4287 May, Generalized anxiety disorder 300.02 and Depression, major, recurrent, in remission 296.35 [facility] [address] [place] [id number] [place] [address] 83720- 8791 May, [facility] [address] 06125- 5980 May, [facility] [address] [place] [id number] [place] [address] 16882- 0556 May, [facility] [address] [place] [id number] [place] [address] 08340- 3788 May, [facility] [address] [place] [id number] [place] [address] 83223- 8927 May, Chronic kidney disease 585.9 [facility] [address] 42596- 7703 Apr, Chronic kidney disease 585.9 [facility] [address] [place] [id number] [place] [address] 89299- 0464 Apr, [facility] [address] [place] [id number] [address]- 0429 Apr, Arthropathy 716.90 ; Hyperlipidemia 272.4 ; Hypothyroidism 244.9 and GERD (gastroesophageal reflux disease) 530.81 [facility] [address] [place] [id number] [place] [address] 26203- 4902 Apr, Arthropathy 716.90 ; Hypothyroidism 244.9 ; Hyperlipidemia 272.4 and GERD (gastroesophageal reflux disease) 530.81 [facility] [address] [place] [id number] [place] [address] 63505- 6288 17 Mar, 2015 [facility] [address] 836097- 7427 February, Depression, major, recurrent, in remission 296.35 and Generalized anxiety disorder 300.02 [facility] [address] [place] [id number] [place] [address] 87675- 4427 February, [facility] [address] [place] [id number] [place] [address] 83920- 6451 February, [facility] [address] [place] [id number] [place] [address] 59636- 1189 Jan, [facility] [address] [place] [id number] [place] [address] 86625- 2517 Jan, [facility] [address] [place] [id number] [place] [address] 87139- 0310 Oct, [facility] [address] [place] [id number] [place] [address] 80519- 7113 Oct, [facility] [address] [place] [id number] [place] [address] 46946- 8763 Oct, [facility] [address] [place] [id number] [place] [address] 25508- 1448 Oct, [facility] [address] [place] [id number] [place] [address] 163774- 3456 Oct, [facility] [address] [place] [id number] [place] [address] 71196- 3244 Oct, [facility] [place] [facility] [address] [id number] [place] [address]- 0378 Sep, [facility] [place] [facility] [address] [id number] [place] [address]- 4300 Sep, [facility] [place] [facility] [address] [id number] [place] [address]- 8078 Aug, [facility] [place] [facility] [address] [id number] [place] [address]- 7123 Aug, [facility] [place] [facility] [address] [id number] [place] [address]- 8638 Aug, [facility] [place] [facility] [address] [id number] [place] [address]- 2888 Aug, [facility] [place] [facility] [address] [id number] [place] [address]- 2620 Jul, [facility] [place] [facility] [address] [id number] [place] [address]- 9364 Jul, [facility] [place] [facility] [address] [id number] [place] [address]- 6367 Jul, [facility] [place] [facility] [address] [id number] [place] [address]- 5639 Jul, [facility] [place] [facility] [address] [id number], [place] [address]- 7475 29 Jun, 2014 [facility] [place] [facility] [address] [id number] [place] [address]- 2456 22 Jun, 2014 [facility] [place] [facility] [address] [id number] [place] [address]- 8866 22 Jun, 2014 [facility] [place] [facility] [address] [id number] [place] [address]- 0441 10 Jun, 2014 [facility] [place] [facility] [address] [id number] [place] [address]- 9646 10 Jun, 2014 [facility] [place] [facility] [address] [id number] [place] [address]- 3913 Jun, [facility] [place] [facility] [address] [id number] [place] [address]- 6926 Jun, [facility] [place] [facility] [address] [id number] [place] [address]- 4426 May, [facility] [place] [facility] [address] [id number] [place] [address]- 3913 May, [facility] [place] [facility] [address] [id number] [place] [address]- 3399 May, [facility] [place] [facility] [address] [id number] [place] [address]- 9932 May, [facility] [place] [facility] [address] [id number] [place] [address]- 4994 Apr, [facility] [place] [facility] [address] [id number] [place] [address]- 3016 Apr, [facility] [place] [facility] [address] [id number] [place] [address]- 0855 Apr, [facility] [place] [facility] [address] [id number] [place] [address]- 3163 Apr, [facility] [place] [facility] [address] [id number] [place] [address]- 1174 Apr, [facility] [place] [facility] [address] [id number] [place] [address]- 5926 Apr, [facility] [place] [facility] [address] [id number] [place] [address]- 6219 Apr, [facility] [place] [facility] [address] [id number] [place] [address]- 4801 Apr, [facility] [place] [facility] [address] [id number] [place] [address]- 8939 Mar, [facility] [place] [facility] [address] [id number] [place] 2400 Mar, [facility] [place] [facility] [address] [id number] [place] [address]- 9826 Mar, [facility] [place] [facility] [address] [id number] [place] [address]- 9089 Mar, [facility] [place] [facility] [address] [id number] [place] [address]- 4187 Mar, [facility] [place] [facility] [address] [id number] [place] [address]- 6102 Mar, [facility] [place] [facility] [address] [id number] [place] [address]- 0668 Mar, [facility] [place] [facility] [address] [id number] [place] [address]- 1251 Mar, [facility] [place] [facility] [address] [id number] [place] [address]- 1937 Dec, [facility] [place] [facility] [address] [id number] [place] [address]- 4014 Dec, [facility] [place] [facility] [address] [id number] [place] [address]- 3532 Dec, [facility] [place] [facility] [address] [id number] [place] [address]- 8037 Dec, [facility] [place] [facility] [address] [id number] [place] [address]- 6985 Dec, [facility] [place] [facility] [address] [id number] [place] [address]- 7477 Dec, [facility] [place] [facility] [address] [id number] [place] [address]- 7287 Dec, [facility] [place] [facility] [address] [id number] [place] [address]- 8108 Dec, [facility] [place] [facility] [address] [id number] [place] [address]- 0978 Nov, [facility] [place] [facility] [address] [id number] [place] [address]- 7125 26 Nov, 2013 [facility] [place] [facility] [address] [id number] [place] [address]- 0286 Nov, 2013 [facility] [place] [facility] [address] [id number] [place] [address] 2546 Nov, 2013 [facility] [place] [facility] [address] [id number] [place] [address] 2546 14 Nov, 2013 [facility] [place] [facility] [address] [id number] [place] [address]- 2546 Nov, 2013 [facility] [place] [facility] [address] [id number] [place] [address]- 0861 Nov, 2013 [facility] [place] [facility] [address] [facility] [id number] [place] 0011 Nov, [facility] [place] [facility] [address] [facility] [id number] [place] [address] Aug, [facility] [place] [facility] [address] [id number] [place] [address] Aug, [facility] [place] [facility] [address] [facility] [id number] [place] [address] 18 Jul, 2013 [facility] [place] [facility] [address] [facility] [id number] [place] [address] 18 Jul, 2013 [facility] [place] [facility] [address] [facility] [id number] [place] [address] 02 Jul, 2013 [facility] [place] [facility] [address] [id number] [place] [address] 30 Jun, 2013 [facility] [place] [facility] [address] [id number] [place] [address] 30 Jun, 2013 [facility] [place] [facility] [address] [id number] [place] [address] 24 Jun, 2013 [facility] [place] [facility] [address] [id number] [place] [address] Jun, [facility] [address] [id number] [place] [address] Jun, [facility] [place] [facility] [address] [id number] [place] [address] May, [facility] [place] [facility] [address] [id number] [place] [address] Apr, [facility] [place] [facility] [address] [id number] [place] [address] Apr, [facility] [address] [id number] [place] [address] Apr, [facility] [place] [facility] [address] [id number] [place] [address] Mar, [facility] [place] [facility] [address] [id number] [place] [address] Mar, [facility] [address] [id number] [place] [address] February, [facility] [place] [facility] [address] [id number] [place] [address] February, [facility] [place] [facility] [address] [id number] [place] [address] February, [facility] [place] [facility] [address] [id number] [place] [address] February, [facility] [place] [facility] [address] [id number] [place] [address] Jan, [facility] [place] [facility] [address] [id number] [place] [address] Jan, [facility] [place] [facility] [address] [id number] [place] [address] Jan, [facility] [place] [facility] [address] [id number] [place] [address] Jan, [facility] [place] [facility] [address] [id number] [place] [address] 20 Dec, 2012 [facility] [address] [id number] [place] [address] 13 Dec, 2012 [facility] [place] [facility] [address] [id number] [place] [address] Dec, [facility] [place] [facility] [address] [id number] [place] [address] 22 Nov, 2012 [facility] [place] [facility] [address] [id number] [place] [address] 15 Nov, 2012 [facility] [place] [facility] [address] [id number] [place] [address] Nov, [facility] [place] [facility] [address] [id number] [place] [address] Oct, [facility] [address] [id number] [place] [address] Oct, [facility] [place] [facility] [address] [id number] [place] [address] Sep, [facility] [place] [facility] [address] [id number] [place] [address] Sep, [facility] [place] [facility] [address] [id number] [place] [address] Sep, [facility] [place] [facility] [address] [id number] [place] [address] Sep, [facility] [place] [facility] [address] [id number] [place] [address] Sep, [facility] [place] [facility] [address] [id number] [place] [address] Aug, [facility] [place] [facility] [address] [id number] [place] [address] Aug, [facility] [place] [facility] [address] [id number] [place] [address] Aug, [facility] [place] [facility] [address] [id number] [place] [address] Aug, [facility] [place] [facility] [address] [id number] [place] [address] Aug, [facility] [place] [facility] [address] [id number] [place] [address] Aug, [facility] [place] [facility] [address] [id number] [place] [address] Jun, [facility] [place] [facility] [address] [id number] [place] [address] Jun, [facility] [place] [facility] [address] [id number] [place] [address] Jun, [facility] [place] [facility] [address] [id number] [place] [address] May, [facility] [place] [facility] [address] [id number] [place] [address] May, [facility] [place] [facility] [address] [id number] [place] [address] May, [facility] [place] [facility] [address] [id number] [place] [address] May, [facility] [place] [facility] [address] [id number] [place] [address] Apr, [facility] [place] [facility] [address] [id number] [place] [address] Mar, [facility] [place] [facility] [address] [id number] [place] [address] Mar, [facility] [place] [facility] [address] [id number] [place] [address] Mar, [facility] [place] [facility] [address] [id number] [place] [address] February, [facility] [place] [facility] [address] [id number] [place] [address] February, [facility] [address] [id number] [place] [address] February, [facility] [address] [id number] [place] [address] February, [facility] [address] [facility] [id number] [place] [address] Dec, [facility] [address] [id number] [place] [address] Dec, [facility] [address] [id number] [place] [address] Dec, [facility] [address] [facility] [id number] [place] [address] Dec, [facility] [address] [facility] [id number] [place] [address] Nov, [facility] [place] [facility] [address] [id number] [place] [address] Nov, [facility] [address] [facility] [id number] [place] [address] Nov, [facility] [address] [facility] [id number] [place] [address] Nov, [facility] [address] [facility] [id number] [place] [address] 2546 Nov, [facility] [place] [facility] [address] [id number] [place] [address] Oct, [facility] [place] [facility] [address] [id number] [place] [address] Oct, [facility] [place] [facility] [address] [id number] [place] [address] Oct, [facility] [place] [facility] [address] [facility] [id number] [place] [address] Aug, [facility] [place] [facility] [address] [id number] [place] [address] Aug, [facility] [place] [facility] [address] [id number] [place] [address] Jul, [facility] [place] [facility] [address] [id number] [place] [address] Jul, [facility] [place] [facility] [address] [id number] [place] [address] Jul, [facility] [place] [facility] [address] [id number] [place] [address] Jul, [facility] [place] [facility] [address] [id number] [place] [address]- [address] Jul, [facility] [place] [facility] [address] [id number] [place] [address] Jul, [facility] [place] [facility] [address] [id number] [place] [address]- [address] Jul, [facility] [place] [facility] [address] [id number] [place] [address]- [address] Jul, [facility] [place] [facility] [address] [id number] [place] [address]- [address] May, [facility] [place] [facility] [address] [id number] [place] [address] February, [facility] [place] [facility] [address] [id number] [place] [address] Nov, [facility] [place] [facility] [address] [id number] [place] [address] Sep, [facility] [place] [facility] [address] [id number] [place] [address] Aug, [facility] [place] [facility] [address] [id number] [place] [address]- [address] 14 Oct, 2009 [facility] [place] [facility] [address] [id number] [place] [address] Jul, [facility] [address] [facility] [id number] [place] [address] Jun, [facility] [address] [facility] [id number], [place] [address] Mar, [facility] [address] [facility] [id number] [place] [address] Mar, [facility] [address] [facility] [id number], [place] [address] Nov, IMMUNIZATIONS No Known Immunizations SOCIAL HISTORY Never Assessed REASON FOR VISIT PLAN OF CARE VITAL SIGNS MEDICATIONS No [...] 2017 Hospitalization History surgeries Hospitalization History [facility]- irregular heart beat, shortness of breath Aug 2016 Hospitalization History post left hip surgery oct 2017
--- OUTSIDE RECORDS SUMMARY | 2019-01-24 07:40 | XMS REPORT ---
Author Author FRANCESCO PHILLIPS [facility] Address [address] [place] [address] Care Team Providers Care Boiler Riveter Name Role Phone FRANCESCO PHILLIPS Unavailable PROBLEMS Type Condition ICD9-CM Code [id number] Code Onset Dates Condition Status SNOMED Code Problem Paroxysmal atrial fibrillation I48.0 Active 565181725 Problem Generalized anxiety disorder F41.1 Active 96511929 Problem Gastro-esophageal reflux disease without esophagitis K21.9 Active 340778882 Problem Chronic kidney disease, stage 1 N18.1 Active 601810489 Problem Secondary hyperparathyroidism of renal origin N25.81 Active 29107301 Problem 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 Active 763453407 Problem MDD (major depressive disorder), recurrent, in partial remission F33.41 Active 46006707 Problem Acquired hypothyroidism E03.9 Active 407435617 Problem Chronic diastolic heart failure I50.32 Active 887187321 Problem Arthritis M19.90 Active 9018218 Problem Depression F32.9 Active 60386435 Problem Anxiety F41.9 Active 14359242 Problem Chronic kidney disease (CKD) stage G1/A1, glomerular filtration rate ( GFR) equal to or greater than 90 mL/min/1.73 square meter and albuminuria creatinine ratio less than 30 mg/g N18.1 Active 704813866 Problem Atrial fibrillation, unspecified type I48.91 Active 30958256 ALLERGIES Substance Reaction Event Type Date Status morphine vomiting Drug Allergy Nov, Active Adhesive Tape itching, rash Drug Allergy Nov, Active ENCOUNTERS Encounter Location Date Diagnosis [facility] [address] [facility] [id number] [address] Mar, Pain, dental K08.89 [facility] [address] [id number] [address] February, Medicare annual wellness visit, initial Z00.00 ; MDD (major depressive disorder), recurrent, in partial remission F33.41 ; Atrial fibrillation, unspecified type I48.91 ; Chronic diastolic heart failure I50.32 ; Secondary hyperparathyroidism of renal origin N25.81 ; Acquired hypothyroidism E03.9 ; Anxiety F41.9 ; Chronic kidney disease, stage 1 N18.1 and Encounter for immunization Z23 [place] [address] [address] February, Closed fracture of one rib of right side, initial encounter S22.31XA ; Acute cystitis with hematuria N30.01 ; Right flank pain R10.9 and Rib pain on right side R07.81 [place] [address] [address] Jan, Acquired hypothyroidism E03.9 ; 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 ; Chronic kidney disease (CKD) stage G1/A1, glomerular filtration rate (GFR) equal to or greater than 90 mL/min/1.73 square meter and albuminuria creatinine ratio less than 30 mg/g N18.1 ; Paroxysmal atrial fibrillation I48.0 ; Chronic diastolic heart failure I50.32 and Secondary hyperparathyroidism of renal origin N25.81 [place] [address] [address]- [address] Jan, Arthritis M19.90 [place] [address] 38253- 9410 Jan, Paroxysmal atrial fibrillation I48.0 [place] [address] 34007- 2356 Jan, Paroxysmal atrial fibrillation I48.0 [place] [address] 45205- 6899 Jan, [place] [address] 69128- 9224 Jan, Generalized anxiety disorder F41.1 [place] [address] 53643- 5095 Jan, Generalized anxiety disorder F41.1 and MDD (major depressive disorder), recurrent, in partial remission F33.41 [facility] [address] [place] [address] [id number] [place] [address] 94041- 7723 Dec, Arthritis M19.90 [facility] [address] [place] [address] [id number] [place] [address] 70374- 7012 Dec, [facility] [address] [place] [address] [id number] [place] [address] 84825- 9911 Nov, Arthritis M19.90 ; Chronic kidney disease (CKD) stage G1/A1 , glomerular filtration rate (GFR) equal to or greater than 90 mL/min/1.73 square meter and albuminuria creatinine ratio less than 30 mg/g N18.1 and Anxiety F41.9 [place] [address] [place] [id number] [place] [address] 42425- 6886 Nov, [place] [address] [place] [id number] [place] [address] 24963- 3586 Nov, [facility] [address] [id number] [place] [address] 79929- 8974 Nov, [place] [address] [place] [id number] [place] [address] 99336- 5819 Nov, [facility] [address] [place] [id number] [place] [address] 65809- 2939 Nov, [place] [address] [place] [id number] [place] [address] 89570- 7570 Oct, Generalized anxiety disorder F41.1 [place] [address] [place] [id number] [place] [address] 78048- 4962 Sep, Atrial fibrillation, unspecified type I48.91 [place] [address] [place] [id number] [place] [address] 50989- 0388 Sep, Generalized anxiety disorder F41.1 and MDD (major depressive disorder), recurrent, in partial remission F33.41 [place] [address] [place] [id number] [place] [address] 64411- 1227 Sep, [facility] [address], [place] [address] Aug, Generalized anxiety disorder F41.1 [facility] [address] [address] Aug, [facility] [address], [place] [address] Aug, Paroxysmal atrial fibrillation I48.0 and Gastro-esophageal reflux disease without esophagitis K21.9 [facility] [address], [place] [address] Jul, [facility] [id number] [place] [address] 73529- 7766 Jul, Generalized anxiety disorder F41.1 [facility] [address], [place] [address] Jun, Generalized anxiety disorder F41.1 and MDD (major depressive disorder), recurrent, in partial remission F33.41 [facility] [address], [place] [address] 8[address] May, Recurrent major depressive disorder, in partial remission F33.41 [facility] [address], [place] [address] 69[address] May, Anxiety F41.9 and Paroxysmal atrial fibrillation I48.0 [facility] [address], [place] [address] 295[address] Apr, Generalized anxiety disorder F41.1 [facility] [address], [place] [address] 4[address] Mar, [facility] [address], [place] [address] Mar, Generalized anxiety disorder F41.1 and MDD (major depressive disorder), recurrent, in partial remission F33.41 [facility] [address], [place] [address] February, Paroxysmal atrial fibrillation I48.0 and Anxiety F41.9 [facility] [address], [place] [address] February, MDD (major depressive disorder), recurrent, in partial remission F33.41 [facility] [address], [place] [address] Jan, [facility] [id number] [place] [address] 39140 -1484 Jan, [facility] [id number] [place] [address] 35732- 9374 Jan, [facility] [id number] [place] [address] 72251- 9998 Jan, [facility] [id number] [place] [address] 76857- 6466 Dec, [facility] [address] [id number] [place] [address] 39407- 3130 Dec, Generalized anxiety disorder F41.1 [facility] [address] [place] [address] [id number] [place] [address] 07056- 5721 Dec, Generalized anxiety disorder F41.1 and MDD (major depressive disorder), recurrent, in partial remission F33.41 [facility] [address], [place] [address]- 5788 Dec, [facility] [address] [place] [address] [id number] [place] [address] 38066- 6264 Dec, [facility] [address], [place] [address]- 7815 Dec, [facility] [address] [place] [address] [id number] [place] [address] 37525- 8325 Nov, [facility] [address], [place] [address]- 4222 Nov, Gastro-esophageal reflux disease without esophagitis K21.9 [facility] [id number] [place] [address] 68813- 5641 Nov, Atrial fibrillation, unspecified type I48.91 and Anxiety F41.9 [facility] [id number] [place] [address] 48914- 5475 Oct, [facility] [id number] [place] [address] 32288- 5332 Oct, [facility] [id number] [place] [address] 65246- 2590 Oct, Depression F32.9 and Atrial fibrillation, unspecified type I48.91 [facility] [address] 27723- 1296 Oct, [facility] [address] [place] [address] [id number] [place] [address] 26177- 5823 Sep, Depression F32.9 [facility] [address] [place] [address] [id number] [place] [address] 08233- 1168 Sep, Recurrent major depressive disorder, in partial remission F33.41 and Generalized anxiety disorder F41.1 [place] [address] [place] [address] [id number] [place] [address] 84332- 0781 Sep, Paroxysmal atrial fibrillation I48.0 and Anxiety F41.9 [place] [address] [place] [id number] [place] [address] 06384- 4983 Sep, [facility] [address] [address] [id number] [place] [address] 72563- 4619 Sep, [facility] [address] [place] [address] [id number] [place] [address] 34981- 9224 Sep, Gastro-esophageal reflux disease without esophagitis K21.9 [facility] [id number] [place] [address] 84249- 3259 Aug, [facility] [address] [place] [id number] [place] [address] 40195- 6323 Aug, [place] [address] [address] [id number] [place] [address] 69235- 9779 Aug, Atrial fibrillation, unspecified type I48.91 [place] [address] [place] [id number] [place] [address] 37019- 7330 Jul, Major depressive disorder, recurrent, in partial remission F33.41 and Generalized anxiety disorder F41.1 [place] [address] [place] [id number] [place] [address] 81871- 4136 Jul, [place] [address] [place] [id number] [place] [address] 26075- 0993 30 Jun, 2016 [place] [address] [place] [id number] [place] [address] 68898- 8096 15 Jun, 2016 Bronchitis J40 and Memory loss R41.3 [place] [address] [place] [id number] [place] [address] 52074- 8444 14 Jun, 2016 Upper respiratory infection with cough and congestion J06.9 [place] [address] [place] [id number] [place] [address] 94578- 3536 Apr, [place] [address] [place] [id number] [place] [address] 29894- 3467 Apr, Major depressive disorder, recurrent, unspecified F33.9 ; Anxiety F41.9 and Psychophysiological insomnia F51.04 [place] [address] [place] [id number] [place] [address] 42209- 1797 Mar, [place] [address] [place] [id number] [place] [address] 76964- 8138 Mar, [place] [address] [place] [id number] [place] [address] 27498- 9531 February, [place] [address] [address] [id number] [place] [address] 19260- 9600 Jan, Postural hypotension I95.1 [place] [address] [place] [id number] [place] [address] 96255- 5406 14 Jan, 2016 Recurrent major depressive disorder in remission F33.40 ; Generalized anxiety disorder F41.1 and Psychophysiological insomnia F51.04 [facility] [id number] [place] [address] 09482- 8164 14 Dec, 2015 Generalized anxiety disorder F41.1 [facility] [id number] [place] [address] 22322 -7262 11 Dec, 2015 Unspecified fall, initial encounter W19.XXXA [facility] [address] 60222- 3767 Nov, Depression F32.9 and Anxiety F41.9 [place] [address] 79541- 2403 Oct, [place] [address] 62219- 0553 Oct, [place] [address] 46321- 5336 Oct, Chronic kidney disease, stage 3 (moderate) N18.3 [facility] [address] [place] [id number] [place] [address] 65449- 3519 Oct, Head contusion S00.93XA ; Cervical strain S16.1XXA and Arthritis M19.90 [place] [address] [place] [id number] [place] [address] 23048- 2543 Oct, Chronic kidney disease 585.9 [place] [address] [place] [id number] [place] [address] 30731- 2308 Oct, Chronic kidney disease 585.9 [facility] [address] [place] [id number] [place] [address] 47228- 1591 Oct, [place] [address] 68640- 5391 Sep, [place] [address] [place] [id number] [place] [address] 27746- 4344 Aug, Chronic kidney disease N18.9 [place] [address] [place] [address] 50609- 3811 16 Aug, 2015 Chronic kidney disease (CKD) stage G1/A1, glomerular filtration rate (GFR) equal to or greater than 90 mL/min/1.73 square meter and albuminuria creatinine ratio less than 30 mg/g N18.1 and GERD (gastroesophageal reflux disease) K21.9 [facility] [address] [place] [address] 69414- 3401 Aug, [facility] [address] [place] [id number] [place] [address] 02630- 4321 Jun, Generalized anxiety disorder 300.02 ; Major depression, recurrent 296.30 and Persistent 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 [place] [address] [place] [id number] [place] [address] 09473- 5383 Jun, [facility] [address] [place] [id number] [place] [address] 46846- 3797 May, [facility] [address] [place] [id number] [place] [address] 40495- 0431 May, Generalized anxiety disorder 300.02 and Depression, major, recurrent, in remission 296.35 [facility] [address] [place] [id number] [place] [address] 45978- 3340 May, [facility] [address] [place] [address] 32218- 9717 May, [facility] [address] [place] [address] 34974- 6583 May, [facility] [id number] [place] [address] 52069- 1022 May, [facility] [address] [place] [id number] [place] [address] 61731- 4008 May, Chronic kidney disease 585.9 [facility] [address] [place] [address] 08112- 0398 Apr, Chronic kidney disease 585.9 [facility] [address] [address]- 7483 14 Apr, 2015 [facility] [id number] [place] [address] 143930- 1399 Apr, Arthropathy 716.90 ; Hyperlipidemia 272.4 ; Hypothyroidism 244.9 and GERD (gastroesophageal reflux disease) 530.81 [facility] [id number] [place] [address] 91793- 6866 Apr, Arthropathy 716.90 ; Hypothyroidism 244.9 ; Hyperlipidemia 272.4 and GERD (gastroesophageal reflux disease) 530.81 [facility] [id number] [place] [address] 346005- 8425 Mar, [facility] [id number] [place] [address] 935055- 4896 February, Depression, major, recurrent, in remission 296.35 and Generalized anxiety disorder 300.02 [facility] [id number] [place] [address] 26329- 8009 February, [facility] [address] [place] [address] 12279- 7241 February, [facility] [id number] [place] [address] 33174- 0131 Jan, [facility] [address], [place] [address]- 0160 Jan, [facility] [address], [place] [address]- 3967 Oct, [facility] [address], [place] [address]- 5426 Oct, [facility] [id number] [place] [address] 759816- 2282 Oct, [facility] [address] 8995 Oct, [facility] [id number] [place] [address] 28313663- 2918 Oct, [facility] [place] [facility] [address] [id number] [place] [address]- 7362 Oct, [facility] [place] [facility] [address] [id number] [place] [address]- 8632 Sep, [facility] [place] [facility] [address] [id number] [place] [address]- 4465 Sep, [facility] [place] [facility] [address] [id number] [place] [address]- 7692 Aug, [facility] [place] [facility] [address] [id number] [place] [address]- 6802 Aug, [facility] [place] [facility] [address] [id number] [place] [address]- 7139 Aug, [facility] [place] [facility] [address] [id number] [place] [address]- 5635 Aug, [facility] [place] [facility] [address] [id number] [place] [address]- 8672 Jul, [facility] [place] [facility] [address] [id number] [place] [address]- 9091 Jul, [facility] [place] [facility] [address] [id number] [place] [address]- 3513 Jul, [facility] [place] [facility] [address] [id number], [place] [address]- 9014 Jul, [facility] [place] [facility] [address] [id number], [place] [address]- 4960 29 Jun, 2014 [facility] [place] [facility] [address] [id number] [place] [address]- 7199 Jun, [facility] [place] [facility] [address] [id number] [place] [address]- 5900 Jun, [facility] [place] [facility] [address] [id number] [place] [address]- 2785 10 Jun, 2014 [facility] [place] [facility] [address] [id number] [place] [address]- 2136 Jun, [facility] [place] [facility] [address] [id number] [place] [address]- 4366 Jun, [facility] [place] [facility] [address] [id number] [place] [address]- 1436 Jun, [facility] [place] [facility] [address] [id number] [place] [address]- 8434 May, [facility] [place] [facility] [address] [id number] [place] [address]- 7193 May, [facility] [place] [facility] [address] [id number] [place] [address]- 6255 May, [facility] [place] [facility] [address] [id number] [place] [address]- 3266 May, [facility] [place] [facility] [address] [id number] [place] [address]- 2162 Apr, [facility] [place] [facility] [address] [id number] [place] [address]- 4771 Apr, [facility] [place] [facility] [address] [id number] [place] [address]- 9937 Apr, [facility] [place] [facility] [address] [id number] [place] [address]- 7138 Apr, [facility] [place] [facility] [address] [id number] [place] [address]- 3134 Apr, [facility] [place] [facility] [address] [id number] [place] [address]- 3953 Apr, [facility] [place] [facility] [address] [id number] [place] [address]- 4827 Apr, [facility] [place] [facility] [address] [id number] [place] [address]- 9588 Apr, [facility] [place] [facility] [address] [id number] [place] [address]- 9072 Mar, [facility] [place] [facility] [address] [id number] [place] [address]- 4941 Mar, [facility] [place] [facility] [address] [id number] [place] [address]- 2524 Mar, [facility] [place] [facility] [address] [id number] [place] [address]- 7952 Mar, [facility] [place] [facility] [address] [id number] [place] [address]- 2639 Mar, [facility] [place] [facility] [address] [id number] [place] [address]- 3609 Mar, [facility] [place] [facility] [address] [id number] [place] [address]- 6292 Mar, [facility] [place] [facility] [address] [id number] [place] [address]- 1652 Mar, [facility] [place] [facility] [address] [id number] [place] [address]- 7498 Dec, [facility] [place] [facility] [address] [id number] [place] [address]- 1472 Dec, [facility] [place] [facility] [address] [id number] [place] [address]- 0417 Dec, [facility] [place] [facility] [address] [id number] [place] [address]- 4847 Dec, [facility] [place] [facility] [address] [id number] [place] [address]- 8253 Dec, [facility] [place] [facility] [address] [id number] [place] [address]- 7142 Dec, [facility] [place] [facility] [address] [id number] [place] [address]- 6878 Dec, [facility] [place] [facility] [address] [id number] [place]- 5988 Dec, [facility] [place] [facility] [address] [id number] [place] [address]- 7526 Nov, 2013 [facility] [place] [facility] [address] [id number] [place] [address]- 9616 Nov, 2013 [facility] [place] [facility] [address] [id number] [place] 2346 Nov, 2013 [facility] [place] [facility] [address] [id number] [place] [address]- 3096 Nov, 2013 [facility] [place] [facility] [address] [id number] [place] [address]- 8842 Nov, [facility] [place] [facility] [address] [id number] [place] 8471 Nov, [facility] [place] [facility] [address] [facility] [id number] [place] [address]- 1999 Nov, [facility] [place] [facility] [address] [facility] [id number] [place] [address]- 5668 Nov, [facility] [place] [facility] [address] [id number] [place] [address] Aug, [facility] [place] [facility] [address] [id number] [place] [address] Aug, [facility] [place] [facility] [address] [facility] [id number] [place] [address] Jul, [facility] [place] [facility] [address] [id number] [place] [address] 18 Jul, 2013 [facility] [place] [facility] [address] [id number] [place] [address] [address] Jul, [facility] [place] [facility] [address] [id number] [place] [address] 30 Jun, 2013 [facility] [place] [facility] [address] [facility] [id number] [place] [address] 30 Jun, 2013 [facility] [place] [facility] [address] [id number] [place] [address] Jun, [facility] [place] [facility] [address] [id number] [place] [address] Jun, [facility] [address] [id number] [place] [address] Jun, [facility] [address] [id number] [place] [address] May, [facility] [address] [id number] [place] [address] Apr, [facility] [address] [id number] [place] [address] Apr, [facility] [address] [id number] [place] [address] Apr, [facility] [address] [id number] [place] [address] Mar, [facility] [address] [id number] [place] [address] Mar, [facility] [address] [id number] [place] [address] February, [facility] [address] [id number] [place] [address] February, [facility] [address] [id number] [place] [address] February, [facility] [address] [id number] [place] [address] February, [facility] [address] [id number] [place] [address] Jan, [facility] [place] [facility] [address] [id number] [place] [address] Jan, [facility] [address] [id number] [place] [address] Jan, [facility] [address] [id number], [place] [address] 04 Jan, 2013 [facility] [address] [id number] [place] [address] 20 Dec, 2012 [facility] [address] [id number] [place] [address] Dec, [facility] [address] [id number] [place] [address] Dec, [facility] [address] [id number] [place] [address] 22 Nov, 2012 [facility] [address] [id number] [place] [address] 15 Nov, 2012 [facility] [address] [id number] [place] [address] Nov, [facility] [address] [facility] [id number] [place] [address] Oct, [facility] [address] [id number] [place] [address] Oct, [facility] [address] [id number] [place] [address] Sep, [facility] [address] [id number] [place] [address] Sep, [facility] [address] [id number] [place] [address] Sep, [facility] [place] [facility] [address] [id number], [place] [address] Sep, [facility] [place] [facility] [address] [id number] [place] [address] Sep, [facility] [place] [facility] [address] [id number] [place] [address] Aug, [facility] [place] [facility] [address] [facility] [id number] [place] [address] Aug, [facility] [place] [facility] [address] [id number] [place] [address] Aug, [facility] [place] [facility] [address] [id number] [place] [address] Aug, [facility] [place] [facility] [address] [id number] [place] [address] Aug, [facility] [place] [facility] [address] [id number] [place] [address] Aug, [facility] [place] [facility] [address] [id number] [place] [address] Jun, [facility] [place] [facility] [address] [id number] [place] [address] Jun, [facility] [place] [facility] [address] [id number] [place] [address] Jun, [facility] [place] [facility] [address] [id number] [place] [address] May, [facility] [place] [facility] [address] [id number] [place] [address] May, [facility] [place] [facility] [address] [id number] [place] [address] May, [facility] [place] [facility] [address] [id number] [place] [address] May, [facility] [place] [facility] [address] [id number] [place] [address] Apr, [facility] [place] [facility] [address] [id number] [place] [address] Mar, [facility] [place] [facility] [address] [id number] [place] [address] Mar, [facility] [place] [facility] [address] [id number] [place] [address] Mar, [facility] [place] [facility] [address] [id number] [place] [address] February, [facility] [address] [id number] [place] [address] February, [facility] [place] [facility] [address] [id number] [place] [address] February, [facility] [place] [facility] [address] [id number] [place] [address] February, [facility] [place] [facility] [address] [id number] [place] [address] Dec, [facility] [place] [facility] [address] [id number] [place] [address] Dec, [facility] [place] [facility] [address] [id number] [place] [address] Dec, [facility] [place] [facility] [address] [id number] [place] [address] Dec, [facility] [place] [facility] [address] [id number] [place] [address] Nov, [facility] [place] [facility] [address] [id number] [place] [address] Nov, [facility] [place] [facility] [address] [id number] [place] [address] Nov, [facility] [place] [facility] [address] [id number] [place] [address] Nov, [facility] [place] [facility] [address] [id number] [place] [address] Nov, [facility] [place] [facility] [address] [id number] [place] [address] Oct, [facility] [place] [facility] [address] [id number] [place] [address] Oct, [facility] [place] [facility] [address] [id number] [place] [address] Oct, [facility] [place] [facility] [address] [id number] [place] [address] Aug, [facility] [place] [facility] [address] [id number] [place] [address] Aug, [facility] [place] [facility] [address] [id number] [place] [address] Jul, [facility] [place] [facility] [address] [id number] [place] [address] Jul, [facility] [place] [facility] [address] [id number] [place] [address] Jul, [facility] [place] [facility] [address] [id number] [place] [address] Jul, [facility] [place] [facility] [address] [id number] [place] [address] Jul, [facility] [place] [facility] [address] [id number] [place] [address] Jul, [facility] [place] [facility] [address] [id number] [place] [address] Jul, [facility] [place] [facility] [address] [id number] [place] [address] Jul, [facility] [place] [facility] [address] [id number] [place] [address] May, [facility] [place] [facility] [address] [id number] [place] [address] February, [facility] [place] [facility] [address] [id number] [place] [address] Nov, [facility] [place] [facility] [address] [id number] [place] [address] Sep, [facility] [place] [facility] [address] [id number] [place] [address] 25[address] Aug, [facility] [place] [facility] [address] [id number] [place] [address] Oct, [facility] [address] [facility] [id number], [place] [address] Jul, [facility] [address] [facility] [id number] [address] Jun, [facility] [address] [facility] [id number][place] [address] Mar, [facility] [address] [facility] [id number], [place] [address] Mar, [facility] [address] [facility] [id number], [place] [address] Nov, IMMUNIZATIONS No Known Immunizations SOCIAL HISTORY Never Assessed REASON FOR VISIT followup hospital x2 from broken left hip and left wrist both [facility] PLAN OF CARE Activity Details Follow Up 3 Months Reason: VITAL SIGNS Height 66 in 2017-12-20 Weight 130.6 lbs 2017-12-20 Temperature 97.8 degrees Fahrenheit 2017-12-20 Heart Rate 78 bpm 2017-12-20 Respiratory Rate 20 2017-12-20 BMI 21.08 kg/m2 2017-12-20 Blood pressure systolic 106 mmHg 2017-12-20 Blood pressure diastolic 58 mmHg 2017-12-20 MEDICATIONS Medication Instructions Dosage Frequency Start Date End Date Duration Status Alprazolam 1 MG Orally every 8 hours, PRN 1.5 tablets 28 days Active Ferrous Sulfate 325 (65 Fe) MG Orally Once a day 1 tablet 24h Active BuPROPion HCl ER (XL) 150 MG Orally 2 times a day TAKE ONE TABLET BY MOUTH ONCE DAILY 12h Active Wellbutrin XL 300 MG Orally Once a day 1 tablet 24h 30 Active Docusate Sodium 50 MG Orally 2 times a day 1 capsule as needed 12h Active Omeprazole 20 mg Orally Once a day 1 capsule 24h 28 Apr, 2014 90 days Active Aspir-Low 81 MG Orally three times weekly 1 tablet Active Tramadol HCl 50 mg Orally 2 times a day 1 tablet as needed 12h 27 Nov, 2017 Active Flecainide Acetate 50 MG Orally twice a day 1 tablet 12h Active Diclofenac Sodium 1 Ophthalmic Four times a day 1 application to affected area 6h Active Lasix 40 mg Orally every 48 hours 1/2 tablet Active Polyethylene Glycol 3350 Orally 2 times a day MIX 17 GRAMS IN 8 OZ OF SUITABLE LIQUID 12h 30 Active Levothyroxine Sodium 25 MCG TAKE ONE TABLET BY MOUTH DAILY 30 Active Metoclopramide HCl 5MG Orally 3 times a day 1 tablet 8h 90 days Not- Taking Eliquis 5 mg Orally 2 times a day 1 tablet 12h Active Toprol XL 25 MG Orally Once a day 1 tablet 24h Active RESULTS No Results PROCEDURES Procedure Date Ordered Result Body Site [facility] VISIT ESTABLISHED PATIENT Dec 20, 2017 INSTRUCTIONS MEDICATIONS ADMINISTERED No Known Medications MEDICAL [...]
--- OUTSIDE RECORDS SUMMARY | 2019-01-24 07:40 | XMS REPORT ---
Author Author ARI MURRELL [facility] Address [address] [place] [address] Care Team Providers Care Cooky Machine Operator Name Role Phone ARI MURRELL Unavailable PROBLEMS Type Condition ICD9-CM Code EAC07-IN Code Onset Dates Condition Status SNOMED Code Problem Paroxysmal atrial fibrillation I48.0 Active 754201596 Problem Generalized anxiety disorder F41.1 Active 68207191 Problem Gastro-esophageal reflux disease without esophagitis K21.9 Active 340353321 Problem Chronic kidney disease, stage 1 N18.1 Active 899757587 Problem Secondary hyperparathyroidism of renal origin N25.81 Active 74670912 Problem 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 Active 376558917 Problem MDD (major depressive disorder), recurrent, in partial remission F33.41 Active 96295343 Problem Acquired hypothyroidism E03.9 Active 651674124 Problem Chronic diastolic heart failure I50.32 Active 981364972 Problem Arthritis M19.90 Active 3894525 Problem Depression F32.9 Active 83639175 Problem Anxiety F41.9 Active 56719644 Problem Chronic kidney disease (CKD) stage G1/A1, glomerular filtration rate ( GFR) equal to or greater than 90 mL/min/1.73 square meter and albuminuria creatinine ratio less than 30 mg/g N18.1 Active 194831907 Problem Atrial fibrillation, unspecified type I48.91 Active 42393446 ALLERGIES No Information ENCOUNTERS Encounter Location Date Diagnosis [facility] [address] [facility] [id number] [address] Mar, Pain, dental K08.89 [facility] [id number], [place] [address] February, Medicare annual wellness visit, initial Z00.00 ; MDD (major depressive disorder), recurrent, in partial remission F33.41 ; Atrial fibrillation, unspecified type I48.91 ; Chronic diastolic heart failure I50.32 ; Secondary hyperparathyroidism of renal origin N25.81 ; Acquired hypothyroidism E03.9 ; Anxiety F41.9 ; Chronic kidney disease, stage 1 N18.1 and Encounter for immunization Z23 [place] [address] [address] February, Closed fracture of one rib of right side, initial encounter S22.31XA ; Acute cystitis with hematuria N30.01 ; Right flank pain R10.9 and Rib pain on right side R07.81 [place] [address] [place] [id number] [place] [address] 74[address]- [address] Jan, Acquired hypothyroidism E03.9 ; 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 ; Chronic kidney disease (CKD) stage G1/A1, glomerular filtration rate (GFR) equal to or greater than 90 mL/min/1.73 square meter and albuminuria creatinine ratio less than 30 mg/g N18.1 ; Paroxysmal atrial fibrillation I48.0 ; Chronic diastolic heart failure I50.32 and Secondary hyperparathyroidism of renal origin N25.81 [place] [address] [address] Jan, Arthritis M19.90 [place] [address] [address]- [address] Jan, Paroxysmal atrial fibrillation I48.0 [place] [address] [address]- 64[address] Jan, Paroxysmal atrial fibrillation I48.0 [place] [address] [address]- 48[address] Jan, [place] [address] [address]- 4654 Jan, Generalized anxiety disorder F41.1 [place] [address] [address]- 4[address] Jan, Generalized anxiety disorder F41.1 and MDD (major depressive disorder), recurrent, in partial remission F33.41 [place] [address] [place] [address] Dec, Arthritis M19.90 [facility] [id number] [place] [address] 59744- 3349 Dec, [facility] [id number] [place] [address] 39202- 0850 Nov, Arthritis M19.90 ; Chronic kidney disease (CKD) stage G1/A1 , glomerular filtration rate (GFR) equal to or greater than 90 mL/min/1.73 square meter and albuminuria creatinine ratio less than 30 mg/g N18.1 and Anxiety F41.9 [facility] [id number] [place] [address] 34289- 7503 Nov, [facility] [address] [address]- 0[address] Nov, [facility] [address] [address]- [address] Nov, [facility] [id number] [place] [address] 27351- 7391 Nov, [facility] [address] [address] [id number] [place] [address] 07167- 7693 Nov, [facility] [address] [address] [id number] [place] [address] 34816- 9142 Oct, Generalized anxiety disorder F41.1 [facility] [address] [address] [id number] [place] [address] 58954- 1363 Sep, Atrial fibrillation, unspecified type I48.91 [facility] [address] [id number] [place] [address] 38979- 6172 Sep, Generalized anxiety disorder F41.1 and MDD (major depressive disorder), recurrent, in partial remission F33.41 [facility] [address] [id number] [place] [address] 82246- 0537 Sep, [facility] [address] [address] [id number] [place] [address] 06736- 4386 Aug, Generalized anxiety disorder F41.1 [facility] [address], [place] [address] Aug, [facility] [address], [place] [address] Aug, Paroxysmal atrial fibrillation I48.0 and Gastro-esophageal reflux disease without esophagitis K21.9 [facility] [address], [place] [address] Jul, [place] [id number] [place] [address] 67431- 3766 Jul, Generalized anxiety disorder F41.1 [place] [address], [place] [address] Jun, Generalized anxiety disorder F41.1 and MDD (major depressive disorder), recurrent, in partial remission F33.41 [place] [address], [place] [address] May, Recurrent major depressive disorder, in partial remission F33.41 [place] [id number] [place] [address] 66131- 6556 May, Anxiety F41.9 and Paroxysmal atrial fibrillation I48.0 [place] [address], [place] [address] Apr, Generalized anxiety disorder F41.1 [place] [address], [place] [address] Mar, [facility] [address], [place] [address] Mar, Generalized anxiety disorder F41.1 and MDD (major depressive disorder), recurrent, in partial remission F33.41 [place] [address], [place] [address] February, Paroxysmal atrial fibrillation I48.0 and Anxiety F41.9 [place] [address], [place] [address] February, MDD (major depressive disorder), recurrent, in partial remission F33.41 [facility] [address], [place] [address] Jan, [facility] [address], [place] [address] Jan, [facility] [address] [place] [id number] [place] [address] 75905- 0178 Jan, [facility] [address], [place] [address]- 0888 Jan, [facility] [address], [place] [address] 9[address] Dec, [facility] [address], [place] [address]- 5163 Dec, Generalized anxiety disorder F41.1 [facility] [address], [place] [address] 98[address] Dec, Generalized anxiety disorder F41.1 and MDD (major depressive disorder), recurrent, in partial remission F33.41 [facility] [address], [place] [address]- 7[address] 15 Dec, 2016 [facility] [address], [place] [address]- 8561 Dec, [facility] [address], [place] [address]- 0601 Dec, [facility] [address], [place] [address]- 7846 Nov, [facility] [address], [place] [address]- 6555 Nov, Gastro-esophageal reflux disease without esophagitis K21.9 [facility] [address], [place] [address] 3[address] Nov, Atrial fibrillation, unspecified type I48.91 and Anxiety F41.9 [facility] [id number] [place] [address] 77769- 4240 Oct, [facility] [address] [id number] [place] [address] 56635- 3905 Oct, [facility] [id number] [place] [address] 91737- 4421 Oct, Depression F32.9 and Atrial fibrillation, unspecified type I48.91 [facility] [id number] [place] [address] 48495- 5266 Oct, [facility] [address] [place] [id number] [place] [address] 33689- 1447 Sep, Depression F32.9 [facility] [address] [place] [id number] [place] [address] 74253- 3600 Sep, Recurrent major depressive disorder, in partial remission F33.41 and Generalized anxiety disorder F41.1 [facility] [address] [place] [id number] [place] [address] 85466- 7976 Sep, Paroxysmal atrial fibrillation I48.0 and Anxiety F41.9 [facility] [address] [place] [id number] [place] [address] 15564- 2282 Sep, [facility] [address] [id number] [place] [address] 74953- 0774 Sep, [facility] [address] [place] [id number] [place] [address] 15300- 4617 Sep, Gastro-esophageal reflux disease without esophagitis K21.9 [facility] [id number] [place] [address] 10949- 3673 Aug, [facility] [address] [id number] [place] [address] 19830- 9673 Aug, [facility] [address] [id number] [place] [address] 13697- 1799 Aug, Atrial fibrillation, unspecified type I48.91 [facility] [address], [place] [address]- 7833 Jul, Major depressive disorder, recurrent, in partial remission F33.41 and Generalized anxiety disorder F41.1 [facility] [address], [place] [address]- 0469 Jul, [facility] [address] [place] [id number] [place] [address] 21816- 3067 30 Jun, 2016 [place] [address] [id number] [place] [address] 09756- 7729 15 Jun, 2016 Bronchitis J40 and Memory loss R41.3 [place] [address] [id number] [place] [address] 33117- 8160 14 Jun, 2016 Upper respiratory infection with cough and congestion J06.9 [place] [address] [id number] [place] [address] 76621- 5351 Apr, [place] [address] [address] [id number] [place] [address] 51186- 5445 Apr, Major depressive disorder, recurrent, unspecified F33.9 ; Anxiety F41.9 and Psychophysiological insomnia F51.04 [place] [address], [place] [address]- 1632 Mar, [place] [address] [place] [id number] [place] [address] 67039- 1131 Mar, [facility] [address] [place] [id number] [place] [address] 89790- 9251 February, [facility] [address] [place] [id number] [place] [address] 50007- 1707 Jan, Postural hypotension I95.1 [facility] [id number] [place] [address] 10639- 2311 14 Jan, 2016 Recurrent major depressive disorder in remission F33.40 ; Generalized anxiety disorder F41.1 and Psychophysiological insomnia F51.04 [place] [address], [place] [address]- 8029 14 Dec, 2015 Generalized anxiety disorder F41.1 [facility] [address] [id number] [place] [address] 90820 -4048 Dec, Unspecified fall, initial encounter W19.XXXA [place] [address] [place] [id number] [place] [address] 19262- 5913 Nov, Depression F32.9 and Anxiety F41.9 [facility] [address] [place] [id number] [place] [address] 26360- 0247 Oct, [place] [address] [place] [id number] [place] [address] 54718- 1821 Oct, [place] [address] [place] [id number] [place] [address] 14459- 4135 Oct, Chronic kidney disease, stage 3 (moderate) N18.3 [place] [address] [place] [id number] [place] [address] 44484- 3654 Oct, Head contusion S00.93XA ; Cervical strain S16.1XXA and Arthritis M19.90 [place] [address] [place] [id number] [place] [address] 59841- 4911 Oct, Chronic kidney disease 585.9 [place] [address] [place] [id number] [place] [address] 61819- 1103 Oct, Chronic kidney disease 585.9 [place] [address] [place] [id number] [place] [address] 63412- 7850 Oct, [place] [address] [place] [id number] [place] [address] 13203- 9488 Sep, [place] [address] [place] [id number] [place] [address] 43110- 3362 Aug, Chronic kidney disease N18.9 [place] [id number] [place] [address] 68601- 4903 Aug, Chronic kidney disease (CKD) stage G1/A1, glomerular filtration rate (GFR) equal to or greater than 90 mL/min/1.73 square meter and albuminuria creatinine ratio less than 30 mg/g N18.1 and GERD (gastroesophageal reflux disease) K21.9 [facility] [id number] [place] [address] 43150- 4696 Aug, [facility] [id number] [place] [address] 64122- 8905 Jun, Generalized anxiety disorder 300.02 ; Major depression, recurrent 296.30 and Persistent 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 [facility] [id number] [place] [address] 25691- 9539 Jun, [facility] [id number] [place] [address] 83010- 3147 May, [facility] [id number] [place] [address] 51937- 8283 May, Generalized anxiety disorder 300.02 and Depression, major, recurrent, in remission 296.35 [facility] [id number] [place] [address] 99531- 3835 May, [facility] [id number] [place] [address] 05495- 9140 May, [facility] [id number] [place] [address] 46887- 4748 May, [facility] [id number] [place] [address] 49313- 6568 May, [facility] [id number] [place] [address] 47684- 1477 May, Chronic kidney disease 585.9 [facility] [address] [place] [id number] [place] [address] 61938- 6043 Apr, Chronic kidney disease 585.9 [facility] [address] [place] [id number] [place] [address] 96039- 7651 Apr, [facility] [address], [place] [address]- 6733 Apr, Arthropathy 716.90 ; Hyperlipidemia 272.4 ; Hypothyroidism 244.9 and GERD (gastroesophageal reflux disease) 530.81 [facility] [address] [place] [id number] [place] [address] 27263- 7816 Apr, Arthropathy 716.90 ; Hypothyroidism 244.9 ; Hyperlipidemia 272.4 and GERD (gastroesophageal reflux disease) 530.81 [facility] [address] [place] [id number] [place] [address] 63173- 2302 Mar, [facility] [id number] [place] [address] 46062- 5165 February, Depression, major, recurrent, in remission 296.35 and Generalized anxiety disorder 300.02 [facility] [address] [id number] [place] [address] 24192- 7848 February, [facility] [id number] [place] [address] 69956- 4616 February, [facility] [id number] [place] [address] 78642- 6803 Jan, [facility] [id number] [place] [address] 52275- 9554 Jan, [facility] [address], [place] [address]- 7650 Oct, [facility] [id number] [place] [address] 15201- 5690 Oct, [facility] [address] [place] [address] 79585- 4333 Oct, [facility] [id number] [place] [address] 12205291- 0726 Oct, [facility] [address] 7118 Oct, [facility] [id number] [place] [address] 35643- 1499 Oct, [facility] [place] [facility] [address] [id number] [place] [address]- 4081 Sep, [facility] [place] [facility] [address] [id number] [place] [address]- 9124 Sep, [facility] [place] [facility] [address] [facility] [id number] [place] [address]- 2733 Aug, [facility] [place] [facility] [address] [id number] [place] [address]- 8285 Aug, [facility] [place] [facility] [address] [id number] [place] [address]- 3509 Aug, [facility] [place] [facility] [address] [id number] [place] [address]- 5239 Aug, [facility] [place] [facility] [address] [facility] [id number] [place] [address]- 9318 Jul, [facility] [place] [facility] [address] [id number] [place] [address]- 7351 Jul, [facility] [place] [facility] [address] [facility] [id number] [place] [address]- 3960 Jul, [facility] [place] [facility] [address] [facility] [id number] [place] [address]- 4321 Jul, [facility] [place] [facility] [address] [id number], [place] [address]- 5038 29 Jun, 2014 [facility] [place] [facility] [address] [id number], [place] [address]- 9422 22 Jun, 2014 [facility] [place] [facility] [address] [id number] [place] [address]- 8317 22 Jun, 2014 [facility] [place] [facility] [address] [facility] [id number] [place] [address]- 2206 10 Jun, 2014 [facility] [place] [facility] [address] [facility] [id number] [place] [address]- 8677 10 Jun, 2014 [facility] [place] [facility] [address] [id number] [place] [address]- 1204 Jun, [facility] [place] [facility] [address] [id number] [place] [address]- 0473 Jun, [facility] [place] [facility] [address] [id number] [place] [address]- 9354 May, [facility] [place] [facility] [address] [id number] [place] [address]- 4639 May, [facility] [place] [facility] [address] [id number] [place] [address]- 6391 May, [facility] [place] [facility] [address] [id number] [place] [address]- 5842 May, [facility] [place] [facility] [address] [id number] [place] [address]- 4529 Apr, [facility] [place] [facility] [address] [id number] [place] [address]- 0597 Apr, [facility] [place] [facility] [address] [id number] [place] [address]- 2709 Apr, [facility] [place] [facility] [address] [id number] [place] [address]- 8667 Apr, [facility] [place] [facility] [address] [id number] [place] [address]- 3401 Apr, [facility] [place] [facility] [address] [id number] [place] [address]- 8067 Apr, [facility] [place] [facility] [address] [id number] [place] [address]- 9488 Apr, [facility] [place] [facility] [address] [id number] [place] [address]- 9126 Apr, [facility] [place] [facility] [address] [id number] [place] [address]- 6465 Mar, [facility] [place] [facility] [address] [id number] [place] [address]- 9993 Mar, [facility] [place] [facility] [address] [id number] [place] [address]- 9448 Mar, [facility] [place] [facility] [address] [id number] [place] [address] Mar, [facility] [place] [facility] [address] [id number] [place] [address] Mar, [facility] [place] [facility] [address] [id number] [place] [address] Mar, [facility] [place] [facility] [address] [id number] [place] [address]- [address] Mar, [facility] [place] [facility] [address] [id number] [place] [address] Mar, [facility] [place] [facility] [address] [id number] [place] [address]- [address] Dec, [facility] [place] [facility] [address] [id number] [place] [address] Dec, [facility] [place] [facility] [address] [id number] [place] [address] Dec, [facility] [place] [facility] [address] [id number] [place] [address] Dec, [facility] [place] [facility] [address] [id number] [place] [address] Dec, [facility] [place] [facility] [address] [id number], [place] [address] Dec, [facility] [place] [facility] [address] [id number] [place] [address] Dec, [facility] [place] [facility] [address] [id number] [place] [address]- [address] Dec, [facility] [place] [facility] [address] [id number] [place] [address] Nov, [facility] [place] [facility] [address] [id number] [place] [address]- [address] 26 Nov, 2013 [facility] [place] [facility] [address] [id number] [place] [address] Nov, 2013 [facility] [place] [facility] [address] [id number] [place] [address]- [address] Nov, 2013 [facility] [place] [facility] [address] [id number] [place] [address]- [address] Nov, 2013 [facility] [place] [facility] [address] [id number] [place] [address]- [address] Nov, 2013 [facility] [place] [facility] [address] [id number] [place] [address]- [address] Nov, [facility] [place] [facility] [address] [facility] [id number] [place] [address]- [address] Nov, [facility] [place] [facility] [address] [facility] [id number] [place] [address]- [address] Aug, [facility] [place] [facility] [address] [id number] [place] [address] Aug, [facility] [place] [facility] [address] [facility] [id number] [place] [address] Jul, [facility] [place] [facility] [address] [facility] [id number] [place] [address] 18 Jul, 2013 [facility] [place] [facility] [address] [facility] [id number] [place] [address]- [address] 02 Jul, 2013 [facility] [place] [facility] [address] [id number] [place] [address] 30 Jun, 2013 [facility] [place] [facility] [address] [id number] [place] [address] 30 Jun, 2013 [facility] [place] [facility] [address] [id number] [place] [address] 24 Jun, 2013 [facility] [place] [facility] [address] [id number] [place] [address]- [address] Jun, [facility] [address] [id number] [place] [address]- [address] Jun, [facility] [address] [id number] [place] [address] May, [facility] [address] [id number] [place] [address] Apr, [facility] [address] [id number] [place] [address] Apr, [facility] [address] [id number] [place] [address] Apr, [facility] [address] [id number] [place] [address] Mar, [facility] [address] [id number] [place] [address] Mar, [facility] [address] [id number] [place] [address] February, [facility] [address] [id number] [place] [address] February, [facility] [address] [id number] [place] [address] February, [facility] [address] [id number] [place] [address] February, [facility] [place] [facility] [address] [id number], [place] [address] Jan, [facility] [place] [facility] [address] [id number] [place] [address] Jan, [facility] [place] [facility] [address] [id number] [place] [address] Jan, [facility] [place] [facility] [address] [id number] [place] [address] Jan, [facility] [place] [facility] [address] [id number] [place] [address] 20 Dec, 2012 [facility] [address] [id number] [place] [address] 13 Dec, 2012 [facility] [address] [id number] [place] [address] Dec, [facility] [address] [id number] [place] [address] 22 Nov, 2012 [facility] [address] [id number] [place] [address]46 15 Nov, 2012 [facility] [address] [id number] [place] [address] Nov, [facility] [address] [id number] [place] [address] Oct, [facility] [address] [id number] [place] [address] Oct, [facility] [address] [id number] [place] [address] Sep, [facility] [address] [id number] [place] [address]- [address] Sep, [facility] [address] [id number] [place] [address] Sep, [facility] [address] [id number] [place] [address] 2546 Sep, [facility] [address] [id number] [place] [address] 2542 Sep, [facility] [place] [facility] [address] [id number] [place] [address]14 Aug, [facility] [place] [facility] [address] [id number] [place] [address] Aug, [facility] [address] [id number] [place] [address]- [address] Aug, [facility] [place] [facility] [address] [id number] [place] [address]- 93[address] Aug, [facility] [place] [facility] [address] [id number] [place] [address]- 9586 Aug, [facility] [place] [facility] [address] [id number] [place] [address]- 77[address] Aug, [facility] [place] [facility] [address] [id number] [place] [address]- [address] Jun, [facility] [place] [facility] [address] [id number] [place] [address] 9398 Jun, [facility] [place] [facility] [address] [id number] [place] [address]- 77[address] Jun, [facility] [place] [facility] [address] [id number] [place] [address] May, [facility] [place] [facility] [address] [id number] [place] [address] May, [facility] [place] [facility] [address] [id number] [place] [address] 135[address] May, [facility] [place] [facility] [address] [id number] [place] [address]- [address] May, [facility] [place] [facility] [address] [id number] [place] [address] 9[address] Apr, [facility] [place] [facility] [address] [id number], [place] [address] Mar, [facility] [place] [facility] [address] [id number] [place] [address]- [address] Mar, [facility] [place] [facility] [address] [id number] [place] [address]- [address] Mar, [facility] [place] [facility] [address] [id number], [place] [address] February, [facility] [place] [facility] [address] [id number], [place] [address] 2546 February, [facility] [address] [id number] [place] [address]- 6[address] February, [facility] [place] [facility] [address] [id number] [place] [address]- 2546 February, [facility] [place] [facility] [address] [id number] [place] [address]- 44[address] Dec, [facility] [place] [facility] [address] [id number] [place] [address]- 0916 Dec, [facility] [address] [id number] [place] [address]- 7836 Dec, [facility] [place] [facility] [address] [id number] [place] [address] 2546 Dec, [facility] [address] [id number] [place] [address] Nov, [facility] [place] [facility] [address] [id number] [place] [address]- 1593 Nov, [facility] [place] [facility] [address] [id number] [place] [address] Nov, [facility] [address] [facility] [id number] [place] [address]- [address]26 Nov, [facility] [place] [facility] [address] [id number] [place] [address] 2546 Nov, [facility] [place] [facility] [address] [id number] [place] [address]- 2546 Oct, [facility] [place] [facility] [address] [id number] [place] [address]- 5546 Oct, [facility] [place] [facility] [address] [facility] [id number] [place] [address]- 2546 Oct, [facility] [place] [facility] [address] [facility] [id number] [place] [address]- [address] Aug, [facility] [place] [facility] [address] [id number] [place] [address]- 0090 Aug, [facility] [place] [facility] [address] [id number] [place] [address]- 9235 Jul, [facility] [place] [facility] [address] [id number] [place] [address]- 0651 Jul, [facility] [place] [facility] [address] [id number] [place] [address]- 3481 Jul, [facility] [place] [facility] [address] [id number] [place] [address]- 58[address] Jul, [facility] [place] [facility] [address] [id number] [place] [address]- [address] Jul, [facility] [place] [facility] [address] [id number] [place] [address]- [address]331 Jul, [facility] [place] [facility] [address] [id number] [place] [address]- 1580 Jul, [facility] [place] [facility] [address] [id number] [place] [address]- 8174 Jul, [facility] [place] [facility] [address] [id number] [place] [address]- 8370 May, [facility] [place] [facility] [address] [id number] [place] [address]- 2923 February, [facility] [place] [facility] [address] [id number] [place] [address]- 6966 Nov, [facility] [place] [facility] [address] [id number] [place] [address]- 7621 Sep, [facility] [place] [facility] [address] [id number] [place] [address]- 2373 Aug, [facility] [place] [facility] [address] [id number] [place] [address]- 0615 Oct, [facility] [place] [facility] [address] [id number] [place] [address]- [address] Jul, [facility] [address] [facility] [id number] [place] [address]- 2546 Jun, [facility] [address] [facility] [id number], [place] [address]- 25[address] Mar, [facility] [address] [facility] [id number], [place] [address]- 2546 Mar, [facility] [address] [facility] [id number], [place] [address]- [address] Nov, IMMUNIZATIONS No Known Immunizations SOCIAL [...]
--- OUTSIDE RECORDS SUMMARY | 2019-01-24 07:41 | XMS REPORT ---
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 Name Role Phone FRANCESCO PHILLIPS Unavailable PROBLEMS Type Condition ICD9-CM Code JIU28-JB Code Onset Dates Condition Status SNOMED Code Problem Paroxysmal atrial fibrillation I48.0 Active 824839572 Problem Generalized anxiety disorder F41.1 Active 74607515 Problem Gastro-esophageal reflux disease without esophagitis K21.9 Active 200441606 Problem Chronic kidney disease, stage 1 N18.1 Active 889158729 Problem Secondary hyperparathyroidism of renal origin N25.81 Active 78612724 Problem 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 Active 825995175 Problem MDD (major depressive disorder), recurrent, in partial remission F33.41 Active 48014828 Problem Acquired hypothyroidism E03.9 Active 745953844 Problem Chronic diastolic heart failure I50.32 Active 859730142 Problem Arthritis M19.90 Active 0918155 Problem Depression F32.9 Active 41075687 Problem Anxiety F41.9 Active 93562528 Problem Chronic kidney disease (CKD) stage G1/A1, glomerular filtration rate ( GFR) equal to or greater than 90 mL/min/1.73 square meter and albuminuria creatinine ratio less than 30 mg/g N18.1 Active 954625133 Problem Atrial fibrillation, unspecified type I48.91 Active 73272380 ALLERGIES No Information ENCOUNTERS Encounter Location Date Diagnosis [facility] [address] [facility] [id number], [place] [address] Mar, Pain, dental K08.89 [facility] [address] [facility] [id number], [place] [address] February, Medicare annual wellness visit, initial Z00.00 ; MDD (major depressive disorder), recurrent, in partial remission F33.41 ; Atrial fibrillation, unspecified type I48.91 ; Chronic diastolic heart failure I50.32 ; Secondary hyperparathyroidism of renal origin N25.81 ; Acquired hypothyroidism E03.9 ; Anxiety F41.9 ; Chronic kidney disease, stage 1 N18.1 and Encounter for immunization Z23 [place] [address] [address] February, Closed fracture of one rib of right side, initial encounter S22.31XA ; Acute cystitis with hematuria N30.01 ; Right flank pain R10.9 and Rib pain on right side R07.81 [place] [address] [address]61- 9[address] Jan, Acquired hypothyroidism E03.9 ; 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 ; Chronic kidney disease (CKD) stage G1/A1, glomerular filtration rate (GFR) equal to or greater than 90 mL/min/1.73 square meter and albuminuria creatinine ratio less than 30 mg/g N18.1 ; Paroxysmal atrial fibrillation I48.0 ; Chronic diastolic heart failure I50.32 and Secondary hyperparathyroidism of renal origin N25.81 [place] [address] [address]93- [address] Jan, Arthritis M19.90 [place] [address] 12407- 2023 Jan, Paroxysmal atrial fibrillation I48.0 [place] [address] 78974- 6983 Jan, Paroxysmal atrial fibrillation I48.0 [place] [address] 87171- 9747 Jan, [place] [address] 76253- 8440 Jan, Generalized anxiety disorder F41.1 [place] [address] 06146- 6363 Jan, Generalized anxiety disorder F41.1 and MDD (major depressive disorder), recurrent, in partial remission F33.[address] [place] [address] Dec, Arthritis M19.90 [facility] [address] [place] [id number] [place] [address] 44599- 2594 Dec, [facility] [address] [place] [id number] [place] [address] 01488- 9202 Nov, Arthritis M19.90 ; Chronic kidney disease (CKD) stage G1/A1 , glomerular filtration rate (GFR) equal to or greater than 90 mL/min/1.73 square meter and albuminuria creatinine ratio less than 30 mg/g N18.1 and Anxiety F41.9 [place] [address] [place] [id number] [place] [address] 06689- 5753 Nov, [facility] [address] 98596- 1468 Nov, [facility] [address] 13819- 8672 Nov, [facility] [address] [place] [id number] [place] [address] 02095- 0119 Nov, [facility] [address] [place] [id number] [place] [address] 25940- 8740 Nov, [facility] [address] [place] [id number] [place] [address] 44892- 1884 Oct, Generalized anxiety disorder F41.1 [facility] [address] [place] [id number] [place] [address] 39830- 1001 Sep, Atrial fibrillation, unspecified type I48.91 [facility] [address] [place] [id number] [place] [address] 58952- 2489 Sep, Generalized anxiety disorder F41.1 and MDD (major depressive disorder), recurrent, in partial remission F33.41 [place] [address] [place] [id number] [place] [address] 37204- 0958 Sep, [facility] [address] [place] [id number] [place] [address] 67655- 7807 Aug, Generalized anxiety disorder F41.1 [facility] [id number] [place] [address] 10001- 0804 Aug, [facility] [address] [place] [id number] [place] [address] 83705- 5831 Aug, Paroxysmal atrial fibrillation I48.0 and Gastro-esophageal reflux disease without esophagitis K21.9 [facility] [address] [place] [id number] [place] [address] 87850- 2762 Jul, [facility] [address] [place] [id number] [place] [address] 52765- 8964 Jul, Generalized anxiety disorder F41.1 [place] [address] [place] [id number] [place] [address] 16796- 8325 Jun, Generalized anxiety disorder F41.1 and MDD (major depressive disorder), recurrent, in partial remission F33.41 [facility] [address] [place] [id number] [place] [address] 22489- 7532 May, Recurrent major depressive disorder, in partial remission F33.41 [facility] [address] [place] [id number] [place] [address] 69893- 9072 May, Anxiety F41.9 and Paroxysmal atrial fibrillation I48.0 [place] [address] [place] [address] 35736- 5286 Apr, Generalized anxiety disorder F41.1 [facility] [id number] [place] [address] 90103- 4656 Mar, [facility] [address] [place] [address] 56287- 2857 Mar, Generalized anxiety disorder F41.1 and MDD (major depressive disorder), recurrent, in partial remission F33.41 [facility] [address] [place] [address] 43924- 0883 February, Paroxysmal atrial fibrillation I48.0 and Anxiety F41.9 [facility] [address] [id number], [place] [address] February, MDD (major depressive disorder), recurrent, in partial remission F33.41 [facility] [address] [address] Jan, [facility] [address] [place] [address] Jan, [facility] [address] [place] [id number] [place] [address] 68214- 5664 Jan, [facility] [id number] [place] [address] 72273- 5205 Jan, [facility] [address] [place] [id number] [place] [address] 78143- 5972 Dec, [facility] [address] [place] [id number] [place] [address] 58761- 0159 Dec, Generalized anxiety disorder F41.1 [facility] [address] [place] [id number] [place] [address] 60873- 1702 Dec, Generalized anxiety disorder F41.1 and MDD (major depressive disorder), recurrent, in partial remission F33.41 [facility] [address], [place] [address] 4505 Dec, [facility] [address], [place] [address] 8442 Dec, [facility] [address], [place] [address] 0005 Dec, [facility] [address], [place] [address]- 8545 Nov, [facility] [address] [place] [id number] [place] [address] 89131- 5633 Nov, Gastro-esophageal reflux disease without esophagitis K21.9 [facility] [address], [place] [address] Nov, Atrial fibrillation, unspecified type I48.91 and Anxiety F41.9 [facility] [address] [place] [id number] [place] [address] 94001- 8797 Oct, [facility] [address] [place] [id number] [place] [address] 11276- 9839 Oct, [facility] [address] [place] [id number] [place] [address] 76594- 2908 Oct, Depression F32.9 and Atrial fibrillation, unspecified type I48.91 [facility] [address] [place] [id number] [place] [address] 76799- 2569 Oct, [facility] [address] [place] [id number] [place] [address] 16938- 5217 Sep, Depression F32.9 [facility] [address] [place] [id number] [place] [address] 27042- 0063 Sep, Recurrent major depressive disorder, in partial remission F33.41 and Generalized anxiety disorder F41.1 [place] [address] [place] [id number] [place] [address] 06873- 9298 Sep, Paroxysmal atrial fibrillation I48.0 and Anxiety F41.9 [facility] [address] [place] [id number] [place] [address] 72475- 2378 Sep, [facility] [address] [place] [id number] [place] [address] 89314- 5778 Sep, [facility] [address] [place] [id number] [place] [address] 74022- 4930 Sep, Gastro-esophageal reflux disease without esophagitis K21.9 [facility] [address] [place] [id number] [place] [address] 88460- 5222 Aug, [facility] [address] [place] [id number] [place] [address] 76615- 8843 Aug, [facility] [address] [place] [id number] [place] [address] 72483- 2059 Aug, Atrial fibrillation, unspecified type I48.91 [place] [address] [place] [address] 91033- 9041 Jul, Major depressive disorder, recurrent, in partial remission F33.41 and Generalized anxiety disorder F41.1 [place] [address] [place] [id number] [place] [address] 27150- 0883 Jul, [place] [address] [place] [id number] [place] [address] 18553- 6416 30 Jun, 2016 [place] [address] [place] [id number] [place] [address] 53871- 2913 15 Jun, 2016 Bronchitis J40 and Memory loss R41.3 [place] [address] [place] [id number] [place] [address] 02981- 7355 14 Jun, 2016 Upper respiratory infection with cough and congestion J06.9 [place] [address] [place] [id number] [place] [address] 51110- 4666 Apr, [place] [address] [place] [id number] [place] [address] 64222- 7565 Apr, Major depressive disorder, recurrent, unspecified F33.9 ; Anxiety F41.9 and Psychophysiological insomnia F51.04 [place] [address] [place] [id number] [place] [address] 07279- 1880 Mar, [place] [address] [place] [id number] [place] [address] 05176- 6458 Mar, [place] [address] [place] [id number] [place] [address] 32609- 6635 February, [place] [address] [place] [id number] [place] [address] 85038- 1961 Jan, Postural hypotension I95.1 [facility] [address] [place] [address] 33038- 2515 14 Jan, 2016 Recurrent major depressive disorder in remission F33.40 ; Generalized anxiety disorder F41.1 and Psychophysiological insomnia F51.04 [place] [address] [place] [address] 21433- 4255 14 Dec, 2015 Generalized anxiety disorder F41.1 [facility] [address] [place] [id number] [place] [address] 41876 -6027 11 Dec, 2015 Unspecified fall, initial encounter W19.XXXA [facility] [address] [place] [id number] [place] [address] 07427- 1356 Nov, Depression F32.9 and Anxiety F41.9 [facility] [address] [place] [id number] [place] [address] 10962- 0939 Oct, [place] [address] 89446- 1980 Oct, [facility] [address] [place] [id number] [place] [address] 77682- 8555 Oct, Chronic kidney disease, stage 3 (moderate) N18.3 [place] [address] [place] [id number] [place] [address] 08105- 1589 Oct, Head contusion S00.93XA ; Cervical strain S16.1XXA and Arthritis M19.90 [place] [address] [place] [id number] [place] [address] 43909- 0058 Oct, Chronic kidney disease 585.9 [place] [address] [place] [id number] [place] [address] 46565- 9353 Oct, Chronic kidney disease 585.9 [place] [address] [place] [id number] [place] [address] 95757- 9778 Oct, [place] [address] [place] [id number] [place] [address] 78084- 4186 Sep, [place] [address] [place] [id number] [place] [address] 76415- 0447 Aug, Chronic kidney disease N18.9 [place] [address] [place] [id number] [place] [address] 37745- 2758 Aug, Chronic kidney disease (CKD) stage G1/A1, glomerular filtration rate (GFR) equal to or greater than 90 mL/min/1.73 square meter and albuminuria creatinine ratio less than 30 mg/g N18.1 and GERD (gastroesophageal reflux disease) K21.9 [facility] [address] [place] [id number] [place] [address] 06582- 6244 Aug, [facility] [address] 09997- 5078 Jun, Generalized anxiety disorder 300.02 ; Major depression, recurrent 296.30 and Persistent 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 [facility] [address] 97022- 5805 Jun, [facility] [address] 94017- 1615 May, [facility] [address] 74030- 1968 May, Generalized anxiety disorder 300.02 and Depression, major, recurrent, in remission 296.35 [facility] [address] [place] [id number] [place] [address] 00268- 5496 May, [facility] [address] 36623- 3169 May, [facility] [address] [place] [id number] [place] [address] 22094- 8635 May, [facility] [address] [place] [id number] [place] [address] 17055- 2675 May, [facility] [address] [place] [id number] [place] [address] 12404- 0028 May, Chronic kidney disease 585.9 [facility] [address] 01889- 0641 Apr, Chronic kidney disease 585.9 [facility] [address] [place] [id number] [place] [address] 09497- 6215 Apr, [facility] [id number] [address]- 8365 Apr, Arthropathy 716.90 ; Hyperlipidemia 272.4 ; Hypothyroidism 244.9 and GERD (gastroesophageal reflux disease) 530.81 [facility] [address] [place] [id number] [place] [address] 33570- 6085 Apr, Arthropathy 716.90 ; Hypothyroidism 244.9 ; Hyperlipidemia 272.4 and GERD (gastroesophageal reflux disease) 530.81 [facility] [address] [place] [id number] [place] [address] 99744- 1850 17 Mar, 2015 [facility] [address] 396425- 5261 February, Depression, major, recurrent, in remission 296.35 and Generalized anxiety disorder 300.02 [facility] [address] [place] [id number] [place] [address] 69663- 6658 February, [facility] [address] [place] [id number] [place] [address] 47392- 3611 February, [facility] [address] [place] [id number] [place] [address] 66383- 1069 Jan, [facility] [address] [place] [id number] [place] [address] 01363- 3755 Jan, [facility] [address] [place] [id number] [place] [address] 56439- 4796 Oct, [facility] [address] [place] [id number] [place] [address] 97447- 4609 Oct, [facility] [address] [place] [id number] [place] [address] 18175- 8152 Oct, [facility] [address] [place] [id number] [place] [address] 85764- 7945 Oct, [facility] [address] [place] [id number] [place] [address] 610449- 5356 Oct, [facility] [address] [place] [id number] [place] [address] 58051- 9031 Oct, [facility] [place] [facility] [address] [id number] [place] [address]- 6418 Sep, [facility] [place] [facility] [address] [id number] [place] [address]- 3574 Sep, [facility] [place] [facility] [address] [id number] [place] [address]- 0010 Aug, [facility] [place] [facility] [address] [id number] [place] [address]- 4487 Aug, [facility] [place] [facility] [address] [id number] [place] [address]- 5962 Aug, [facility] [place] [facility] [address] [id number] [place] [address]- 3225 Aug, [facility] [place] [facility] [address] [id number] [place] [address]- 1771 Jul, [facility] [place] [facility] [address] [id number] [place] [address]- 4030 Jul, [facility] [place] [facility] [address] [id number] [place] [address]- 0654 Jul, [facility] [place] [facility] [address] [id number] [place] [address]- 5653 Jul, [facility] [place] [facility] [address] [id number], [place] [address]- 2239 29 Jun, 2014 [facility] [place] [facility] [address] [id number] [place] [address]- 0216 22 Jun, 2014 [facility] [place] [facility] [address] [id number] [place] [address]- 4384 22 Jun, 2014 [facility] [place] [facility] [address] [id number] [place] [address]- 3641 10 Jun, 2014 [facility] [place] [facility] [address] [id number] [place] [address]- 5761 10 Jun, 2014 [facility] [place] [facility] [address] [id number] [place] [address]- 5306 Jun, [facility] [place] [facility] [address] [id number] [place] [address]- 8669 Jun, [facility] [place] [facility] [address] [id number] [place] [address]- 1002 May, [facility] [place] [facility] [address] [id number] [place] [address]- 3598 May, [facility] [place] [facility] [address] [id number] [place] [address]- 2134 May, [facility] [place] [facility] [address] [id number] [place] [address]- 3062 May, [facility] [place] [facility] [address] [id number] [place] [address]- 2133 Apr, [facility] [place] [facility] [address] [id number] [place] [address]- 9418 Apr, [facility] [place] [facility] [address] [id number] [place] [address]- 6667 Apr, [facility] [place] [facility] [address] [id number] [place] [address]- 5804 Apr, [facility] [place] [facility] [address] [id number] [place] [address]- 9440 Apr, [facility] [place] [facility] [address] [id number] [place] [address]- 4140 Apr, [facility] [place] [facility] [address] [id number] [place] [address]- 8361 Apr, [facility] [place] [facility] [address] [id number] [place] [address]- 4382 Apr, [facility] [place] [facility] [address] [id number] [place] [address]- 3314 Mar, [facility] [place] [facility] [address] [id number] [place]- 9727 Mar, [facility] [place] [facility] [address] [id number] [place] [address]- 0709 Mar, [facility] [place] [facility] [address] [id number] [place] [address]- 1073 Mar, [facility] [place] [facility] [address] [id number] [place] [address]- 0482 Mar, [facility] [place] [facility] [address] [id number] [place] [address]- 9086 Mar, [facility] [place] [facility] [address] [id number] [place] [address]- 7864 Mar, [facility] [place] [facility] [address] [id number] [place] [address]- 3757 Mar, [facility] [place] [facility] [address] [id number] [place] [address]- 8300 Dec, [facility] [place] [facility] [address] [id number] [place] [address]- 1682 Dec, [facility] [place] [facility] [address] [id number] [place] [address]- 0531 Dec, [facility] [place] [facility] [address] [id number] [place] [address]- 7814 Dec, [facility] [place] [facility] [address] [id number] [place] [address]- 3676 Dec, [facility] [place] [facility] [address] [id number] [place] [address]- 6795 Dec, [facility] [place] [facility] [address] [id number] [place] [address]- 9668 Dec, [facility] [place] [facility] [address] [id number] [place] [address]- 1325 Dec, [facility] [place] [facility] [address] [id number] [place] [address]- 2426 Nov, [facility] [place] [facility] [address] [id number] [place] [address]- 5492 26 Nov, 2013 [facility] [place] [facility] [address] [id number] [place] [address]- 0916 Nov, 2013 [facility] [place] [facility] [address] [id number] [place] [address] 2546 Nov, 2013 [facility] [place] [facility] [address] [id number] [place] [address] 2546 14 Nov, 2013 [facility] [place] [facility] [address] [id number] [place] [address] Nov, 2013 [facility] [place] [facility] [address] [id number] [place] [address] Nov, 2013 [facility] [place] [facility] [address] [facility] [id number] [place] [address] Nov, [facility] [place] [facility] [address] [facility] [id number] [place] [address] Aug, [facility] [place] [facility] [address] [id number] [place] [address] Aug, [facility] [place] [facility] [address] [facility] [id number] [place] [address] 18 Jul, 2013 [facility] [place] [facility] [address] [facility] [id number] [place] [address] 18 Jul, 2013 [facility] [place] [facility] [address] [facility] [id number] [place] [address] 02 Jul, 2013 [facility] [place] [facility] [address] [id number] [place] [address] 30 Jun, 2013 [facility] [place] [facility] [address] [id number] [place] [address] 30 Jun, 2013 [facility] [place] [facility] [address] [id number] [place] [address] 24 Jun, 2013 [facility] [place] [facility] [address] [id number] [place] [address] Jun, [facility] [address] [id number] [place] [address] Jun, [facility] [place] [facility] [address] [id number] [place] [address] May, [facility] [place] [facility] [address] [id number] [place] [address] Apr, [facility] [place] [facility] [address] [id number] [place] [address] Apr, [facility] [address] [id number] [place] [address] Apr, [facility] [place] [facility] [address] [id number] [place] [address] Mar, [facility] [place] [facility] [address] [id number] [place] [address] Mar, [facility] [address] [id number] [place] [address] February, [facility] [place] [facility] [address] [id number] [place] [address] February, [facility] [place] [facility] [address] [id number] [place] [address] February, [facility] [place] [facility] [address] [id number] [place] [address] February, [facility] [place] [facility] [address] [id number] [place] [address] Jan, [facility] [place] [facility] [address] [id number] [place] [address] Jan, [facility] [place] [facility] [address] [id number] [place] [address] Jan, [facility] [place] [facility] [address] [id number] [place] [address] Jan, [facility] [place] [facility] [address] [id number] [place] [address] 20 Dec, 2012 [facility] [address] [id number] [place] [address] 13 Dec, 2012 [facility] [place] [facility] [address] [id number] [place] [address] Dec, [facility] [place] [facility] [address] [id number] [place] [address] 22 Nov, 2012 [facility] [place] [facility] [address] [id number] [place] [address] 15 Nov, 2012 [facility] [place] [facility] [address] [id number] [place] [address] Nov, [facility] [place] [facility] [address] [id number] [place] [address] Oct, [facility] [address] [id number] [place] [address] Oct, [facility] [place] [facility] [address] [id number] [place] [address] Sep, [facility] [place] [facility] [address] [id number] [place] [address] Sep, [facility] [place] [facility] [address] [id number] [place] [address] Sep, [facility] [place] [facility] [address] [id number] [place] [address] Sep, [facility] [place] [facility] [address] [id number] [place] [address] Sep, [facility] [place] [facility] [address] [id number] [place] [address] Aug, [facility] [place] [facility] [address] [id number] [place] [address] Aug, [facility] [place] [facility] [address] [id number] [place] [address] Aug, [facility] [place] [facility] [address] [id number] [place] [address] Aug, [facility] [place] [facility] [address] [id number] [place] [address] Aug, [facility] [place] [facility] [address] [id number] [place] [address] Aug, [facility] [place] [facility] [address] [id number] [place] [address] Jun, [facility] [place] [facility] [address] [id number] [place] [address] Jun, [facility] [place] [facility] [address] [id number] [place] [address] Jun, [facility] [place] [facility] [address] [id number] [place] [address] May, [facility] [place] [facility] [address] [id number] [place] [address] May, [facility] [place] [facility] [address] [id number] [place] [address] May, [facility] [place] [facility] [address] [id number] [place] [address] May, [facility] [place] [facility] [address] [id number] [place] [address] Apr, [facility] [place] [facility] [address] [id number] [place] [address] Mar, [facility] [place] [facility] [address] [id number] [place] [address] Mar, [facility] [place] [facility] [address] [id number] [place] [address] Mar, [facility] [place] [facility] [address] [id number] [place] [address] February, [facility] [place] [facility] [address] [id number] [place] [address] February, [facility] [address] [id number] [place] [address] February, [facility] [address] [id number] [place] [address] February, [facility] [address] [facility] [id number] [place] [address] Dec, [facility] [address] [id number] [place] [address] 1136 Dec, [facility] [address] [id number] [place] [address] Dec, [facility] [address] [facility] [id number] [place] [address] 2546 Dec, [facility] [address] [facility] [id number] [place] [address] Nov, [facility] [place] [facility] [address] [id number] [place] [address] Nov, [facility] [address] [facility] [id number] [place] [address] Nov, [facility] [address] [facility] [id number] [place] [address] Nov, [facility] [address] [facility] [id number] [place] [address] 2546 Nov, [facility] [place] [facility] [address] [id number] [place] [address] 2546 Oct, [facility] [place] [facility] [address] [id number] [place] [address] Oct, [facility] [place] [facility] [address] [id number] [place] [address] 2546 Oct, [facility] [place] [facility] [address] [facility] [id number] [place] [address] Aug, [facility] [place] [facility] [address] [id number] [place] [address] 36[address] Aug, [facility] [place] [facility] [address] [id number] [place] [address] Jul, [facility] [place] [facility] [address] [id number] [place] [address] Jul, [facility] [place] [facility] [address] [id number] [place] [address] Jul, [facility] [place] [facility] [address] [id number] [place] [address] Jul, [facility] [place] [facility] [address] [id number] [place] [address]- [address]34 Jul, [facility] [place] [facility] [address] [id number] [place] [address]- [address] Jul, [facility] [place] [facility] [address] [id number] [place] [address] 4986 Jul, [facility] [place] [facility] [address] [id number] [place] [address] 4826 Jul, [facility] [place] [facility] [address] [id number] [place] [address] 58[address] May, [facility] [place] [facility] [address] [id number] [place] [address] February, [facility] [place] [facility] [address] [id number] [place] [address] Nov, [facility] [place] [facility] [address] [id number] [place] [address] 8060 Sep, [facility] [place] [facility] [address] [id number] [place] [address] Aug, [facility] [place] [facility] [address] [id number] [place] [address] 14 Oct, 2009 [facility] [place] [facility] [address] [id number] [place] [address] Jul, [facility] [address] [facility] [id number] [place] [address] Jun, [facility] [address] [facility] [id number], [place] [address] Mar, [facility] [address] [facility] [id number] [place] [address] Mar, [facility] [address] [facility] [id number], [place] [address] Nov, IMMUNIZATIONS No Known Immunizations SOCIAL HISTORY Never Assessed REASON FOR VISIT medication PLAN OF CARE VITAL SIGNS MEDICATIONS Medication [...]
--- OUTSIDE RECORDS SUMMARY | 2019-01-24 07:42 | XMS REPORT ---
Author Author FRANCESCO PHILLIPS [facility] Address [address] [place] [address] Care Team Providers Care Metallurgical Engineering Technician Name Role Phone FRANCESCO PHILLIPS Unavailable PROBLEMS Type Condition ICD9-CM Code QBG81-LQ Code Onset Dates Condition Status SNOMED Code Problem Paroxysmal atrial fibrillation I48.0 Active 595886040 Problem Generalized anxiety disorder F41.1 Active 73258483 Problem Gastro-esophageal reflux disease without esophagitis K21.9 Active 441897619 Problem Chronic kidney disease, stage 1 N18.1 Active 717049678 Problem Secondary hyperparathyroidism of renal origin N25.81 Active 39240860 Problem 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 Active 417258313 Problem MDD (major depressive disorder), recurrent, in partial remission F33.41 Active 03585847 Problem Acquired hypothyroidism E03.9 Active 856735682 Problem Chronic diastolic heart failure I50.32 Active 815635715 Problem Arthritis M19.90 Active 5555264 Problem Depression F32.9 Active 37125552 Problem Anxiety F41.9 Active 63773194 Problem Chronic kidney disease (CKD) stage G1/A1, glomerular filtration rate ( GFR) equal to or greater than 90 mL/min/1.73 square meter and albuminuria creatinine ratio less than 30 mg/g N18.1 Active 869238944 Problem Atrial fibrillation, unspecified type I48.91 Active 22774658 ALLERGIES No Information ENCOUNTERS Encounter Location Date Diagnosis [facility] [address] [facility] [id number] [address] Mar, Pain, dental K08.89 [facility] [address] [facility] [id number] [address] February, Medicare annual wellness visit, initial Z00.00 ; MDD (major depressive disorder), recurrent, in partial remission F33.41 ; Atrial fibrillation, unspecified type I48.91 ; Chronic diastolic heart failure I50.32 ; Secondary hyperparathyroidism of renal origin N25.81 ; Acquired hypothyroidism E03.9 ; Anxiety F41.9 ; Chronic kidney disease, stage 1 N18.1 and Encounter for immunization Z23 [place] [address] [address] February, Closed fracture of one rib of right side, initial encounter S22.31XA ; Acute cystitis with hematuria N30.01 ; Right flank pain R10.9 and Rib pain on right side R07.81 [place] [address] [address] Jan, Acquired hypothyroidism E03.9 ; 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 ; Chronic kidney disease (CKD) stage G1/A1, glomerular filtration rate (GFR) equal to or greater than 90 mL/min/1.73 square meter and albuminuria creatinine ratio less than 30 mg/g N18.1 ; Paroxysmal atrial fibrillation I48.0 ; Chronic diastolic heart failure I50.32 and Secondary hyperparathyroidism of renal origin N25.81 [place] [address] [address] Jan, Arthritis M19.90 [place] [address] [address]- 8[address] Jan, Paroxysmal atrial fibrillation I48.0 [place] [address] [address]- 8976 Jan, Paroxysmal atrial fibrillation I48.0 [place] [address] [address]99- 2095 Jan, [place] [address] [address]- 140[address] Jan, Generalized anxiety disorder F41.1 [place] [address] [address]- 6[address] Jan, Generalized anxiety disorder F41.1 and MDD (major depressive disorder), recurrent, in partial remission F33.[address] [place] [address] Dec, Arthritis M19.90 [facility] [address] [place] [id number] [place] [address] 89146- 4338 Dec, [facility] [address] [place] [id number] [place] [address] 22096- 7180 Nov, Arthritis M19.90 ; Chronic kidney disease (CKD) stage G1/A1 , glomerular filtration rate (GFR) equal to or greater than 90 mL/min/1.73 square meter and albuminuria creatinine ratio less than 30 mg/g N18.1 and Anxiety F41.9 [place] [address] [place] [id number] [place] [address] 48516- 3850 Nov, [facility] [address] [address]- 6[address] Nov, [facility] [address] 75883- 1618 Nov, [facility] [address] [place] [id number] [place] [address] 12719- 5002 Nov, [facility] [address] [place] [id number] [place] [address] 86511- 6381 Nov, [facility] [address] [place] [id number] [place] [address] 30668- 8994 Oct, Generalized anxiety disorder F41.1 [facility] [address] [place] [id number] [place] [address] 20150- 5250 Sep, Atrial fibrillation, unspecified type I48.91 [facility] [address] [place] [id number] [place] [address] 36046- 1684 Sep, Generalized anxiety disorder F41.1 and MDD (major depressive disorder), recurrent, in partial remission F33.41 [place] [address] [place] [id number] [place] [address] 36823- 8130 Sep, [facility] [address] [place] [id number] [place] [address] 66131- 1896 Aug, Generalized anxiety disorder F41.1 [facility] [id number] [place] [address] 92602- 9296 Aug, [facility] [address] [place] [id number] [place] [address] 47547- 4126 Aug, Paroxysmal atrial fibrillation I48.0 and Gastro-esophageal reflux disease without esophagitis K21.9 [facility] [address] [place] [id number] [place] [address] 17264- 5289 Jul, [facility] [address] [place] [id number] [place] [address] 00699- 1521 Jul, Generalized anxiety disorder F41.1 [place] [address] [place] [id number] [place] [address] 74077- 7377 Jun, Generalized anxiety disorder F41.1 and MDD (major depressive disorder), recurrent, in partial remission F33.41 [facility] [address] [place] [id number] [place] [address] 98400- 5150 May, Recurrent major depressive disorder, in partial remission F33.41 [facility] [address] [place] [id number] [place] [address] 52146- 0773 May, Anxiety F41.9 and Paroxysmal atrial fibrillation I48.0 [place] [id number] [place] [address] 26142- 0506 Apr, Generalized anxiety disorder F41.1 [facility] [id number] [place] [address] 61788- 0465 Mar, [facility] [id number] [place] [address] 29867- 8134 Mar, Generalized anxiety disorder F41.1 and MDD (major depressive disorder), recurrent, in partial remission F33.41 [facility] [id number] [place] [address] 28248- 6898 February, Paroxysmal atrial fibrillation I48.0 and Anxiety F41.9 [facility] [address] [id number] [address] February, MDD (major depressive disorder), recurrent, in partial remission F33.41 [facility] [address] [address] Jan, [facility] [address] [place] [address] Jan, [facility] [address] [place] [id number] [place] [address] 56943- 7914 Jan, [facility] [id number] [place] [address] 74767- 7423 Jan, [facility] [address] [place] [id number] [place] [address] 73632- 2066 Dec, [facility] [address] [place] [id number] [place] [address] 01501- 1293 Dec, Generalized anxiety disorder F41.1 [facility] [address] [place] [id number] [place] [address] 13637- 0835 Dec, Generalized anxiety disorder F41.1 and MDD (major depressive disorder), recurrent, in partial remission F33.41 [facility] [address], [place] [address] 2[address] Dec, [facility] [address], [place] [address] 2969 Dec, [facility] [address] [address] 8448 Dec, [facility] [address] [address] 7137 Nov, [facility] [address] [place] [id number] [place] [address] 63630- 4473 Nov, Gastro-esophageal reflux disease without esophagitis K21.9 [facility] [address] [address] Nov, Atrial fibrillation, unspecified type I48.91 and Anxiety F41.9 [facility] [address] [place] [id number] [place] [address] 97791- 2977 Oct, [facility] [address] [place] [id number] [place] [address] 40085- 1807 Oct, [facility] [address] [place] [id number] [place] [address] 41210- 5238 Oct, Depression F32.9 and Atrial fibrillation, unspecified type I48.91 [facility] [address] [place] [id number] [place] [address] 51915- 7534 Oct, [facility] [address] [place] [id number] [place] [address] 37255- 7998 Sep, Depression F32.9 [facility] [address] [place] [id number] [place] [address] 37390- 1541 Sep, Recurrent major depressive disorder, in partial remission F33.41 and Generalized anxiety disorder F41.1 [place] [address] [place] [id number] [place] [address] 26678- 6741 Sep, Paroxysmal atrial fibrillation I48.0 and Anxiety F41.9 [facility] [address] [place] [id number] [place] [address] 86134- 7312 Sep, [facility] [address] [place] [id number] [place] [address] 60036- 0546 Sep, [facility] [address] [place] [id number] [place] [address] 05556- 6951 Sep, Gastro-esophageal reflux disease without esophagitis K21.9 [facility] [address] [place] [id number] [place] [address] 10139- 4831 Aug, [facility] [address] [place] [id number] [place] [address] 55768- 9294 Aug, [facility] [address] [place] [id number] [place] [address] 11569- 4110 Aug, Atrial fibrillation, unspecified type I48.91 [place] [id number] [place] [address] 18706- 8061 Jul, Major depressive disorder, recurrent, in partial remission F33.41 and Generalized anxiety disorder F41.1 [place] [address] [place] [id number] [place] [address] 70613- 1755 Jul, [place] [address] [place] [id number] [place] [address] 45668- 7807 30 Jun, 2016 [place] [address] [place] [id number] [place] [address] 19247- 6951 15 Jun, 2016 Bronchitis J40 and Memory loss R41.3 [place] [address] [place] [id number] [place] [address] 31791- 5966 14 Jun, 2016 Upper respiratory infection with cough and congestion J06.9 [place] [address] [place] [id number] [place] [address] 21997- 1996 Apr, [place] [address] [place] [id number] [place] [address] 14613- 8273 Apr, Major depressive disorder, recurrent, unspecified F33.9 ; Anxiety F41.9 and Psychophysiological insomnia F51.04 [place] [address] [place] [id number] [place] [address] 30882- 8124 Mar, [place] [address] [place] [id number] [place] [address] 88623- 3087 Mar, [place] [address] [place] [id number] [place] [address] 79591- 5539 February, [place] [address] [place] [id number] [place] [address] 18553- 6076 Jan, Postural hypotension I95.1 [facility] [id number] [place] [address] 62782- 9083 14 Jan, 2016 Recurrent major depressive disorder in remission F33.40 ; Generalized anxiety disorder F41.1 and Psychophysiological insomnia F51.04 [place] [id number] [place] [address] 96942- 6429 14 Dec, 2015 Generalized anxiety disorder F41.1 [facility] [address] [place] [id number] [place] [address] 50114 -8496 11 Dec, 2015 Unspecified fall, initial encounter W19.XXXA [facility] [address] [place] [id number] [place] [address] 64571- 7375 Nov, Depression F32.9 and Anxiety F41.9 [facility] [address] [place] [id number] [place] [address] 62269- 2789 Oct, [place] [address] 14360- 3319 Oct, [facility] [address] [place] [id number] [place] [address] 40425- 3021 Oct, Chronic kidney disease, stage 3 (moderate) N18.3 [place] [address] [place] [id number] [place] [address] 31011- 4395 Oct, Head contusion S00.93XA ; Cervical strain S16.1XXA and Arthritis M19.90 [place] [address] [place] [id number] [place] [address] 67898- 4100 Oct, Chronic kidney disease 585.9 [place] [address] [place] [id number] [place] [address] 65023- 6580 Oct, Chronic kidney disease 585.9 [place] [address] [place] [id number] [place] [address] 48060- 1605 Oct, [place] [address] [place] [id number] [place] [address] 11060- 7927 Sep, [place] [address] [place] [id number] [place] [address] 48955- 2473 Aug, Chronic kidney disease N18.9 [place] [address] [place] [id number] [place] [address] 18315- 7925 Aug, Chronic kidney disease (CKD) stage G1/A1, glomerular filtration rate (GFR) equal to or greater than 90 mL/min/1.73 square meter and albuminuria creatinine ratio less than 30 mg/g N18.1 and GERD (gastroesophageal reflux disease) K21.9 [facility] [address] [place] [id number] [place] [address] 59708- 7771 Aug, [facility] [address] 40410- 3558 Jun, Generalized anxiety disorder 300.02 ; Major depression, recurrent 296.30 and Persistent 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 [facility] [address] 53893- 2243 Jun, [facility] [address] 12769- 2059 May, [facility] [address] 57545- 6990 May, Generalized anxiety disorder 300.02 and Depression, major, recurrent, in remission 296.35 [facility] [address] [place] [id number] [place] [address] 04946- 7748 May, [facility] [address] 20310- 5328 May, [facility] [address] [place] [id number] [place] [address] 31512- 0728 May, [facility] [address] [place] [id number] [place] [address] 14793- 6930 May, [facility] [address] [place] [id number] [place] [address] 49421- 2927 May, Chronic kidney disease 585.9 [facility] [address] 27772- 5763 Apr, Chronic kidney disease 585.9 [facility] [address] [place] [id number] [place] [address] 73631- 3593 Apr, [facility] [address] [id number] [address]- 0786 Apr, Arthropathy 716.90 ; Hyperlipidemia 272.4 ; Hypothyroidism 244.9 and GERD (gastroesophageal reflux disease) 530.81 [facility] [address] [place] [id number] [place] [address] 21470- 7692 Apr, Arthropathy 716.90 ; Hypothyroidism 244.9 ; Hyperlipidemia 272.4 and GERD (gastroesophageal reflux disease) 530.81 [facility] [address] [place] [id number] [place] [address] 52057- 7205 17 Mar, 2015 [facility] [address] 183351- 6878 February, Depression, major, recurrent, in remission 296.35 and Generalized anxiety disorder 300.02 [facility] [address] [place] [id number] [place] [address] 56484- 4311 February, [facility] [address] [place] [id number] [place] [address] 38388- 5071 February, [facility] [address] [place] [id number] [place] [address] 73470- 6830 Jan, [facility] [address] [place] [id number] [place] [address] 44037- 5761 Jan, [facility] [address] [place] [id number] [place] [address] 16097- 8382 Oct, [facility] [address] [place] [id number] [place] [address] 55203- 5190 Oct, [facility] [address] [place] [id number] [place] [address] 67700- 0893 Oct, [facility] [address] [place] [id number] [place] [address] 86312- 9174 Oct, [facility] [address] [place] [id number] [place] [address] 711593- 5133 Oct, [facility] [address] [place] [id number] [place] [address] 05540- 7930 Oct, [facility] [place] [facility] [address] [id number] [place] [address]- 0706 Sep, [facility] [place] [facility] [address] [id number] [place] [address]- 6798 Sep, [facility] [place] [facility] [address] [id number] [place] [address]- 0905 Aug, [facility] [place] [facility] [address] [id number] [place] [address]- 8983 Aug, [facility] [place] [facility] [address] [id number] [place] [address]- 9568 Aug, [facility] [place] [facility] [address] [id number] [place] [address]- 3732 Aug, [facility] [place] [facility] [address] [id number] [place] [address]- 6399 Jul, [facility] [place] [facility] [address] [id number] [place] [address]- 3317 Jul, [facility] [place] [facility] [address] [id number] [place] [address]- 1131 Jul, [facility] [place] [facility] [address] [id number] [place] [address]- 1731 Jul, [facility] [place] [facility] [address] [id number], [place] [address]- 9972 29 Jun, 2014 [facility] [place] [facility] [address] [id number] [place] [address]- 9457 22 Jun, 2014 [facility] [place] [facility] [address] [id number] [place] [address]- 0408 22 Jun, 2014 [facility] [place] [facility] [address] [id number] [place] [address]- 8703 10 Jun, 2014 [facility] [place] [facility] [address] [id number] [place] [address]- 4414 10 Jun, 2014 [facility] [place] [facility] [address] [id number] [place] [address]- 0748 Jun, [facility] [place] [facility] [address] [id number] [place] [address]- 1238 Jun, [facility] [place] [facility] [address] [id number] [place] [address]- 0447 May, [facility] [place] [facility] [address] [id number] [place] [address]- 9024 May, [facility] [place] [facility] [address] [id number] [place] [address]- 9835 May, [facility] [place] [facility] [address] [id number] [place] [address]- 6123 May, [facility] [place] [facility] [address] [id number] [place] [address]- 9175 Apr, [facility] [place] [facility] [address] [id number] [place] [address]- 7193 Apr, [facility] [place] [facility] [address] [id number] [place] [address]- 5629 Apr, [facility] [place] [facility] [address] [id number] [place] [address]- 6712 Apr, [facility] [place] [facility] [address] [id number] [place] [address]- 7894 Apr, [facility] [place] [facility] [address] [id number] [place] [address]- 9021 Apr, [facility] [place] [facility] [address] [id number] [place] [address]- 3191 Apr, [facility] [place] [facility] [address] [id number] [place] [address]- 7411 Apr, [facility] [place] [facility] [address] [id number] [place] [address]- 9923 Mar, [facility] [place] [facility] [address] [id number] [place] 0190 Mar, [facility] [place] [facility] [address] [id number] [place] [address]- 1643 Mar, [facility] [place] [facility] [address] [id number] [place] [address]- 8121 Mar, [facility] [place] [facility] [address] [id number] [place] [address]- 7121 Mar, [facility] [place] [facility] [address] [id number] [place] [address]- 9119 Mar, [facility] [place] [facility] [address] [id number] [place] [address]- 9166 Mar, [facility] [place] [facility] [address] [id number] [place] [address]- 8935 Mar, [facility] [place] [facility] [address] [id number] [place] [address]- 3626 Dec, [facility] [place] [facility] [address] [id number] [place] [address]- 8577 Dec, [facility] [place] [facility] [address] [id number] [place] [address]- 0444 Dec, [facility] [place] [facility] [address] [id number] [place] [address]- 5713 Dec, [facility] [place] [facility] [address] [id number] [place] [address]- 4866 Dec, [facility] [place] [facility] [address] [id number] [place] [address]- 5725 Dec, [facility] [place] [facility] [address] [id number] [place] [address] Dec, [facility] [place] [facility] [address] [id number] [place] [address] Dec, [facility] [place] [facility] [address] [id number] [place] [address] Nov, [facility] [place] [facility] [address] [id number] [place] [address] 26 Nov, 2013 [facility] [place] [facility] [address] [id number] [place] [address] Nov, 2013 [facility] [place] [facility] [address] [id number] [place] [address] Nov, 2013 [facility] [place] [facility] [address] [id number] [place] [address] 14 Nov, 2013 [facility] [place] [facility] [address] [id number] [place] [address] Nov, 2013 [facility] [place] [facility] [address] [id number] [place] [address] Nov, 2013 [facility] [place] [facility] [address] [facility] [id number] [place] [address] Nov, [facility] [place] [facility] [address] [facility] [id number] [place] [address] Aug, [facility] [place] [facility] [address] [id number] [place] [address] Aug, [facility] [place] [facility] [address] [facility] [id number] [place] [address] 18 Jul, 2013 [facility] [place] [facility] [address] [facility] [id number] [place] [address] 18 Jul, 2013 [facility] [place] [facility] [address] [facility] [id number] [place] [address]- [address] 02 Jul, 2013 [facility] [place] [facility] [address] [id number] [place] [address] 30 Jun, 2013 [facility] [place] [facility] [address] [id number] [place] [address] 30 Jun, 2013 [facility] [place] [facility] [address] [id number] [place] [address] 24 Jun, 2013 [facility] [place] [facility] [address] [id number] [place] [address] Jun, [facility] [address] [id number] [place] [address] Jun, [facility] [place] [facility] [address] [id number] [place] [address] May, [facility] [place] [facility] [address] [id number] [place] [address] Apr, [facility] [place] [facility] [address] [id number] [place] [address] Apr, [facility] [address] [id number] [place] [address] Apr, [facility] [place] [facility] [address] [id number] [place] [address] Mar, [facility] [place] [facility] [address] [id number] [place] [address] Mar, [facility] [address] [id number] [place] [address] February, [facility] [place] [facility] [address] [id number] [place] [address] February, [facility] [place] [facility] [address] [id number] [place] [address] February, [facility] [place] [facility] [address] [id number] [place] [address] February, [facility] [place] [facility] [address] [id number] [place] [address] Jan, [facility] [place] [facility] [address] [id number] [place] [address] Jan, [facility] [place] [facility] [address] [id number] [place] [address] Jan, [facility] [place] [facility] [address] [id number] [place] [address] Jan, [facility] [place] [facility] [address] [id number] [place] [address] 20 Dec, 2012 [facility] [address] [id number] [place] [address] 13 Dec, 2012 [facility] [place] [facility] [address] [id number] [place] [address] Dec, [facility] [place] [facility] [address] [id number] [place] [address] 22 Nov, 2012 [facility] [place] [facility] [address] [id number] [place] [address] 15 Nov, 2012 [facility] [place] [facility] [address] [id number] [place] [address] Nov, [facility] [place] [facility] [address] [id number] [place] [address] Oct, [facility] [address] [id number] [place] [address] Oct, [facility] [place] [facility] [address] [id number] [place] [address] Sep, [facility] [place] [facility] [address] [id number] [place] [address] Sep, [facility] [place] [facility] [address] [id number] [place] [address] Sep, [facility] [place] [facility] [address] [id number] [place] [address] Sep, [facility] [place] [facility] [address] [id number] [place] [address] Sep, [facility] [place] [facility] [address] [id number] [place] [address] Aug, [facility] [place] [facility] [address] [id number] [place] [address] Aug, [facility] [place] [facility] [address] [id number] [place] [address] Aug, [facility] [place] [facility] [address] [id number] [place] [address] Aug, [facility] [place] [facility] [address] [id number] [place] [address] Aug, [facility] [place] [facility] [address] [id number] [place] [address] Aug, [facility] [place] [facility] [address] [id number] [place] [address] Jun, [facility] [place] [facility] [address] [id number] [place] [address] Jun, [facility] [place] [facility] [address] [id number] [place] [address] Jun, [facility] [place] [facility] [address] [id number] [place] [address] May, [facility] [place] [facility] [address] [id number] [place] [address] May, [facility] [place] [facility] [address] [id number] [place] [address] May, [facility] [place] [facility] [address] [id number] [place] [address] May, [facility] [place] [facility] [address] [id number] [place] [address] Apr, [facility] [place] [facility] [address] [id number] [place] [address] Mar, [facility] [place] [facility] [address] [id number] [place] [address] Mar, [facility] [place] [facility] [address] [id number] [place] [address] Mar, [facility] [place] [facility] [address] [id number] [place] [address] February, [facility] [place] [facility] [address] [id number] [place] [address] February, [facility] [address] [id number] [place] [address] February, [facility] [address] [id number] [place] [address] February, [facility] [address] [facility] [id number] [place] [address] Dec, [facility] [address] [id number] [place] [address]186 Dec, [facility] [address] [id number] [place] [address] Dec, [facility] [address] [facility] [id number] [place] [address] 2546 Dec, [facility] [address] [facility] [id number] [place] [address] Nov, [facility] [place] [facility] [address] [id number] [place] [address] Nov, [facility] [address] [facility] [id number] [place] [address] Nov, [facility] [address] [facility] [id number] [place] [address] Nov, [facility] [address] [facility] [id number] [place] [address] 2546 Nov, [facility] [place] [facility] [address] [id number] [place] [address] 2546 Oct, [facility] [place] [facility] [address] [id number] [place] [address] Oct, [facility] [place] [facility] [address] [id number] [place] [address] 2546 Oct, [facility] [place] [facility] [address] [facility] [id number] [place] [address]36 Aug, [facility] [place] [facility] [address] [id number] [place] [address] 225[address] Aug, [facility] [place] [facility] [address] [id number] [place] [address] Jul, [facility] [place] [facility] [address] [id number] [place] [address] Jul, [facility] [place] [facility] [address] [id number] [place] [address] Jul, [facility] [place] [facility] [address] [id number] [place] [address] Jul, [facility] [place] [facility] [address] [id number] [place] [address]496 Jul, [facility] [place] [facility] [address] [id number] [place] [address] Jul, [facility] [place] [facility] [address] [id number] [place] [address] Jul, [facility] [place] [facility] [address] [id number] [place] [address] Jul, [facility] [place] [facility] [address] [id number] [place] [address] 3765 May, [facility] [place] [facility] [address] [id number] [place] [address] February, [facility] [place] [facility] [address] [id number] [place] [address] 9180 Nov, [facility] [place] [facility] [address] [id number] [place] [address] 67[address] Sep, [facility] [place] [facility] [address] [id number] [place] [address] 1405 Aug, [facility] [place] [facility] [address] [id number] [place] [address] 14 Oct, 2009 [facility] [place] [facility] [address] [id number] [place] [address] Jul, [facility] [address] [facility] [id number] [place] [address] Jun, [facility] [address] [facility] [id number], [place] [address] Mar, [facility] [address] [facility] [id number] [place] [address] 2546 Mar, [facility] [address] [facility] [id number], [place] [address] Nov, IMMUNIZATIONS No Known Immunizations SOCIAL HISTORY Never Assessed REASON FOR VISIT Medication question PLAN OF CARE VITAL SIGNS MEDICATIONS No [...] Hospitalization History surgeries Hospitalization History [facility]- irregular heart beat, shortness of breath Aug 2016 Hospitalization History post left hip surgery oct 2017
--- OUTSIDE RECORDS SUMMARY | 2019-01-24 07:43 | XMS REPORT ---
Author Author FRANCESCO PHILLIPS Organization [facility] [place] Address [address] [place] [address] Care Team Providers Care Parts Designer Name Role Phone FRANCESCO PHILLIPS Unavailable PROBLEMS Type Condition ICD9-CM Code EZL03-ZW Code Onset Dates Condition Status SNOMED Code Problem Paroxysmal atrial fibrillation I48.0 Active 237306498 Problem Generalized anxiety disorder F41.1 Active 40464423 Problem Gastro-esophageal reflux disease without esophagitis K21.9 Active 302305976 Problem Chronic kidney disease, stage 1 N18.1 Active 595590757 Problem Secondary hyperparathyroidism of renal origin N25.81 Active 88778163 Problem 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 Active 914940275 Problem MDD (major depressive disorder), recurrent, in partial remission F33.41 Active 08308818 Problem Acquired hypothyroidism E03.9 Active 814922124 Problem Chronic diastolic heart failure I50.32 Active 552402183 Problem Arthritis M19.90 Active 9217406 Problem Depression F32.9 Active 21437662 Problem Anxiety F41.9 Active 38297631 Problem Chronic kidney disease (CKD) stage G1/A1, glomerular filtration rate ( GFR) equal to or greater than 90 mL/min/1.73 square meter and albuminuria creatinine ratio less than 30 mg/g N18.1 Active 289912901 Problem Atrial fibrillation, unspecified type I48.91 Active 43718742 ALLERGIES No Information ENCOUNTERS Encounter Location Date Diagnosis [facility] [place] [address] [facility] [id number], [place] [address] Apr, [facility] [place] [address] [facility] [id number] [address] February, Medicare annual wellness visit, initial Z00.00 [facility] [place] [address] [facility] [id number], [place] [address] Jan, Acquired hypothyroidism E03.9 ; 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 ; Chronic kidney disease (CKD) stage G1/A1, glomerular filtration rate (GFR) equal to or greater than 90 mL/min/1.73 square meter and albuminuria creatinine ratio less than 30 mg/g N18.1 ; Paroxysmal atrial fibrillation I48.0 ; Chronic diastolic heart failure I50.32 and Secondary hyperparathyroidism of renal origin N25.81 [place] [address] [address]- 8888 Jan, Arthritis M19.90 [place] [address] 47435- 9034 Jan, Paroxysmal atrial fibrillation I48.[address] [address]- 4[address] Jan, Paroxysmal atrial fibrillation I48.0 [place] [address] 7[address]00- 6195 Jan, [place] [address] 58[address]- 3226 Jan, Generalized anxiety disorder F41.[address] [address]447- 4815 Jan, Generalized anxiety disorder F41.1 and MDD (major depressive disorder), recurrent, in partial remission F33.[address] 8[address]19- 0786 Dec, Arthritis M19.90 [place] [address] 65808- 5450 Dec, [place] [address] 86928- 1295 Nov, Arthritis M19.90 ; Chronic kidney disease (CKD) stage G1/A1 , glomerular filtration rate (GFR) equal to or greater than 90 mL/min/1.73 square meter and albuminuria creatinine ratio less than 30 mg/g N18.1 and Anxiety F41.9 [place] [address] [place] [address] 7094 Nov, [facility] [place] [address] [place] [id number] [place] [address] 72763- 5811 Nov, [facility] [place] [address] [place] [id number] [place] [address] 54322- 4992 Nov, [facility] [place] [address] [place] [id number] [place] [address] 01547- 8278 Nov, [facility] [place] [address] [place] [id number] [place] [address] 74873- 3750 Nov, [facility] [place] [address] [place] [id number] [place] [address] 88389- 5379 Oct, Generalized anxiety disorder F41.1 [facility] [place] [address] [place] [id number] [place] [address] 59908- 3003 Sep, Atrial fibrillation, unspecified type I48.91 [facility] [place] [address] [place] [id number] [place] [address] 73570- 9587 Sep, Generalized anxiety disorder F41.1 and MDD (major depressive disorder), recurrent, in partial remission F33.41 [facility] [place] [address] [place] [id number] [place] [address] 81439- 3970 Sep, [facility] [place] [address] [place] [id number] [place] [address] 81287- 2236 Aug, Generalized anxiety disorder F41.1 [facility] [place] [address] [place] [id number] [place] [address] 69843- 9563 Aug, [facility] [place] [address] [place] [id number] [place] [address] 92766- 9296 Aug, Paroxysmal atrial fibrillation I48.0 and Gastro-esophageal reflux disease without esophagitis K21.9 [facility] [place] [address] [place] [id number] [place] [address] 78066- 5792 Jul, [facility] [place] [address] [place] [id number] [place] [address] 99515- 6459 Jul, Generalized anxiety disorder F41.1 [facility] [place] [id number] [place] [address] 33824- 4280 Jun, Generalized anxiety disorder F41.1 and MDD (major depressive disorder), recurrent, in partial remission F33.41 [facility] [place] [address] [place] [address] 46016- 9405 May, Recurrent major depressive disorder, in partial remission F33.41 [facility] [place] [address] [place] [id number] [place] [address] 51543- 1570 May, Anxiety F41.9 and Paroxysmal atrial fibrillation I48.0 [facility] [place] [address] [place] [id number] [place] [address] 21691- 0188 Apr, Generalized anxiety disorder F41.1 [facility] [place] [address] [place] [id number] [place] [address] 53875- 4427 Mar, [facility] [place] [address] [place] [id number] [place] [address] 04750- 3477 Mar, Generalized anxiety disorder F41.1 and MDD (major depressive disorder), recurrent, in partial remission F33.41 [facility] [place] [address] [place] [id number] [place] [address] 03622- 4259 February, Paroxysmal atrial fibrillation I48.0 and Anxiety F41.9 [facility] [place] [address] [place] [address] 18354- 7187 February, MDD (major depressive disorder), recurrent, in partial remission F33.41 [facility] [place] [id number] [place] [address] 60115- 5242 Jan, [facility] [address] [place] [id number] [place] [address] 74413 -1058 Jan, [facility] [place] [address] [place] [id number] [place] [address] 36240- 8246 Jan, [facility] [place] [address] [place] [id number] [place] [address] 45946- 7299 Jan, [facility] [place] [address] [address]- 4049 Dec, [facility] [place] [address] [place] [id number] [place] [address] 72841- 1509 Dec, Generalized anxiety disorder F41.1 [facility] [place] [address] [place] [id number] [place] [address] 54158- 1838 Dec, Generalized anxiety disorder F41.1 and MDD (major depressive disorder), recurrent, in partial remission F33.41 [facility] [place] [address] [place] [address] 49888- 2476 Dec, [facility] [place] [address] [place] [id number] [place] [address] 74143- 4576 14 Dec, 2016 [facility] [place] [address] [place] [id number] [place] [address] 22605- 0460 Dec, [facility] [place] [address] [place] [id number] [place] [address] 25186- 0227 Nov, [facility] [place] [address] [place] [id number] [place] [address] 88517- 9743 Nov, Gastro-esophageal reflux disease without esophagitis K21.9 [facility] [place] [address] [place] [address] 47923- 8079 10 Nov, 2016 Atrial fibrillation, unspecified type I48.91 and Anxiety F41.9 [facility] [place] [address] [address]- 0981 Oct, [facility] [place] [id number] [place] [address] 06236- 4953 Oct, [facility] [place] [address] [place] [id number] [place] [address] 18591- 4732 Oct, Depression F32.9 and Atrial fibrillation, unspecified type I48.91 [facility] [place] [id number] [place] [address] 69227- 2619 Oct, [facility] [place] [address] [place] [address] 89554- 3313 Sep, Depression F32.9 [facility] [place] [address] [place] [id number] [place] [address] 20060- 6966 Sep, Recurrent major depressive disorder, in partial remission F33.41 and Generalized anxiety disorder F41.1 [facility] [place] [address] [place] [id number] [place] [address] 12688- 6986 Sep, Paroxysmal atrial fibrillation I48.0 and Anxiety F41.9 [facility] [place] [address] [place] [id number] [place] [address] 39534- 4928 Sep, [place] [address] [place] [id number] [place] [address] 56465- 2356 Sep, [facility] [place] [address] [place] [id number] [place] [address] 03797- 2180 Sep, Gastro-esophageal reflux disease without esophagitis K21.9 [facility] [place] [address] [place] [id number] [place] [address] 05879- 5034 Aug, [facility] [place] [address] [place] [id number] [place] [address] 04846- 4018 Aug, [facility] [place] [address] [place] [id number] [place] [address] 05456- 6604 Aug, Atrial fibrillation, unspecified type I48.91 [facility] [place] [address] [place] [id number] [place] [address] 88521- 1734 Jul, Major depressive disorder, recurrent, in partial remission F33.41 and Generalized anxiety disorder F41.1 [facility] [place] [address] [place] [id number] [place] [address] 33002- 8207 Jul, [facility] [place] [address] [place] [id number] [place] [address] 75025- 4665 Jun, [facility] [place] [address] [place] [id number] [place] [address] 20088- 6190 15 Sep, 2016 Bronchitis J40 and Memory loss R41.3 [facility] [place] [address] [place] [id number] [place] [address] 02252- 4031 14 Jun, 2016 Upper respiratory infection with cough and congestion J06.9 [facility] [place] [address] [place] [id number] [place] [address] 32628- 3312 Apr, [facility] [place] [address] [place] [id number] [place] [address] 43526- 6853 Apr, Major depressive disorder, recurrent, unspecified F33.9 ; Anxiety F41.9 and Psychophysiological insomnia F51.04 [place] [address] [place] [id number] [place] [address] 47158- 5029 Mar, [place] [address] [place] [id number] [place] [address] 27541- 5143 Mar, [place] [address] [place] [id number] [place] [address] 82235- 0273 February, [facility] [place] [address] [place] [id number] [place] [address] 97909- 2262 Jan, Postural hypotension I95.1 [place] [address] [place] [id number] [place] [address] 30372- 9524 Jan, Recurrent major depressive disorder in remission F33.40 ; Generalized anxiety disorder F41.1 and Psychophysiological insomnia F51.04 [place] [address] [place] [id number] [place] [address] 29413- 7252 Dec, Generalized anxiety disorder F41.1 [facility] [address] [place] [id number] [place] [address] 72230 -6081 Dec, Unspecified fall, initial encounter W19.XXXA [facility] [place] [address] [place] [id number] [place] [address] 53395- 6653 05 Nov, 2015 Depression F32.9 and Anxiety F41.9 [facility] [place] [address] [place] [id number] [place] [address] 58759- 1482 Oct, [place] [address] [place] [id number] [place] [address] 03601- 0935 Oct, [place] [address] 64989- 6082 Oct, Chronic kidney disease, stage 3 (moderate) N18.3 [place] [address] [place] [id number] [place] [address] 38074- 8510 Oct, Head contusion S00.93XA ; Cervical strain S16.1XXA and Arthritis M19.90 [place] [address] [place] [id number] [place] [address] 47150- 5993 Oct, Chronic kidney disease 585.9 [place] [address] 44036- 2031 Oct, Chronic kidney disease 585.9 [place] [address] [place] [id number] [place] [address] 88393- 4837 Oct, [place] [address] [place] [id number] [place] [address] 49028- 0195 Sep, [place] [address] [place] [id number] [place] [address] 07696- 3830 Aug, Chronic kidney disease N18.9 [place] [address] [place] [id number] [place] [address] 60225- 9839 Aug, Chronic kidney disease (CKD) stage G1/A1, glomerular filtration rate (GFR) equal to or greater than 90 mL/min/1.73 square meter and albuminuria creatinine ratio less than 30 mg/g N18.1 and GERD (gastroesophageal reflux disease) K21.9 [place] [address] [place] [id number] [place] [address] 96128- 0402 Aug, [address] 41658- 6178 Jun, Generalized anxiety disorder 300.02 ; Major depression, recurrent 296.30 and Persistent 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 [place] [address] [place] [id number] [place] [address] 58791- 7219 Jun, [facility] [place] [address] [address]- 2343 May, [facility] [place] [address] [place] [address] 930567- 4974 May, Generalized anxiety disorder 300.02 and Depression, major, recurrent, in remission 296.35 [facility] [place] [address] [place] [id number] [place] [address] 61087- 1477 May, [facility] [place] [address] [place] [address] 02222- 6265 May, [facility] [place] [address] [place] [id number] [place] [address] 47815- 7826 May, [facility] [place] [address] [place] [address] 41962- 6377 May, [facility] [place] [address] [place] [id number] [place] [address] 12379- 1889 May, Chronic kidney disease 585.9 [facility] [place] [address] [place] [address] 12277- 8410 Apr, Chronic kidney disease 585.9 [facility] [place] [address] [place] [address] 76536- 2803 Apr, [facility] [place] [address] [address]- 8076 Apr, Arthropathy 716.90 ; Hyperlipidemia 272.4 ; Hypothyroidism 244.9 and GERD (gastroesophageal reflux disease) 530.81 [facility] [place] [address] [place] [id number] [address]- 5192 Apr, Arthropathy 716.90 ; Hypothyroidism 244.9 ; Hyperlipidemia 272.4 and GERD (gastroesophageal reflux disease) 530.81 [facility] [place] [address] 4136 Mar, [facility] [place] [address] [place] [address] 85934- 8630 February, Depression, major, recurrent, in remission 296.35 and Generalized anxiety disorder 300.02 [facility] [place] [address] [address]- 3076 February, [facility] [place] [address] [address]- 1256 February, [facility] [place] [address] [place] [id number] [place] [address] 03643- 4708 Jan, [facility] [place] [address] [facility] [id number] [place] [address] 07842- 7283 Jan, [facility] [place] [address] [place] [id number] [place] [address], [place] [address]- 5412 Oct, [facility] [place] [address] [address]- 4359 Oct, [facility] [place] [id number] [place] [address] 43226- 9795 Oct, [facility] [place] [address] [address]- 6899 Oct, [facility] [place] [address] [address]- 3715 Oct, [facility] [place] [address] [address]- 4070 Oct, [facility] [place] [address] [address]- 9875 Sep, [facility] [place] [id number] [address]- 7294 Sep, [facility] [place] [address] [address]- 1166 Aug, [facility] [place] [id number] [address]- 2808 Aug, [facility] [place] [address] [address]- 6306 Aug, [facility] [place] [facility] [address] [id number] [place] [address]- 6080 Aug, [facility] [place] [facility] [address] [id number] [place] [address]- 9385 Jul, [facility] [place] [facility] [address] [id number] [place] [address]- 9229 Jul, [facility] [place] [facility] [address] [id number] [place] [address]- 6029 Jul, [facility] [place] [facility] [address] [id number] [place] [address]- 4719 Jul, [facility] [place] [facility] [address] [id number] [place] [address]- 4320 Jun, [facility] [place] [facility] [address] [id number] [place] [address]- 1301 Jun, [facility] [place] [facility] [address] [id number] [place] [address]- 9377 Jun, [facility] [place] [facility] [address] [id number] [place] [address]- 2768 Jun, [facility] [place] [facility] [address] [id number] [place] [address] Jun, [facility] [place] [facility] [address] [id number] [place] [address] Jun, [facility] [place] [facility] [address] [id number] [place] [address] Jun, [facility] [place] [facility] [address] [id number] [place] [address] May, [facility] [place] [facility] [address] [id number] [place] [address] May, [facility] [place] [facility] [address] [id number] [place] [address] May, [facility] [place] [facility] [address] [id number] [place] [address] May, [facility] [place] [facility] [address] [id number] [place] [address] Apr, [facility] [place] [facility] [address] [id number] [place] [address] Apr, [facility] [place] [facility] [address] [id number] [place] [address] Apr, [facility] [place] [facility] [address] [id number] [place] [address] Apr, [facility] [place] [facility] [address] [id number] [place] [address] Apr, [facility] [place] [facility] [address] [id number] [place] [address] Apr, [facility] [place] [facility] [address] [id number] [place] [address]- [address] Apr, [facility] [place] [facility] [address] [id number] [place] [address] Apr, [facility] [place] [facility] [address] [id number] [place] [address] Mar, [facility] [place] [facility] [address] [id number] [place] [address]- [address] Mar, [facility] [place] [facility] [address] [id number] [place] [address] Mar, [facility] [place] [facility] [address] [id number] [place] [address] Mar, [facility] [place] [facility] [address] [id number] [place] [address]- [address] Mar, [facility] [place] [facility] [address] [id number] [place] [address] Mar, [facility] [place] [facility] [address] [id number] [place] [address] Mar, [facility] [place] [facility] [address] [id number] [place] [address] Mar, [facility] [place] [facility] [address] [id number] [place] [address] Dec, [facility] [place] [facility] [address] [id number] [place] [address] Dec, [facility] [place] [facility] [address] [id number] [place] [address] Dec, [facility] [place] [facility] [address] [id number] [place] [address] Dec, [facility] [place] [facility] [address] [id number] [place] [address] Dec, [facility] [place] [facility] [address] [id number] [place] [address] Dec, [facility] [place] [facility] [address] [id number] [place] [address] Dec, [facility] [place] [facility] [address] [id number] [place] [address] Dec, [facility] [place] [facility] [address] [id number] [place] [address] Nov, [facility] [place] [facility] [address] [id number] [place] [address] Nov, [facility] [place] [facility] [address] [id number] [place] [address] Nov, [facility] [place] [facility] [address] [id number] [place] [address] Nov, [facility] [place] [facility] [address] [id number] [place] [address] Nov, [facility] [place] [facility] [address] [id number] [place] [address] Nov, [facility] [place] [facility] [address] [id number] [place] [address] Nov, [facility] [address] [id number] [place] [address] Nov, [facility] [place] [facility] [address] [id number] [place] [address] Aug, [facility] [address] [id number] [place] [address] Aug, [facility] [place] [facility] [address] [id number] [place] [address] Jul, [facility] [address] [id number] [place] [address] Jul, [facility] [place] [facility] [address] [id number] [place] [address] Jul, [facility] [place] [facility] [address] [id number] [place] [address] Jun, [facility] [address] [id number] [place] [address]- [address] 30 Jun, 2013 [facility] [place] [facility] [address] [id number] [place] [address]- [address]266 24 Jun, 2013 [facility] [address] [id number] [place] [address]- [address] Jun, [facility] [place] [facility] [address] [id number] [place] [address] 2547 Jun, [facility] [place] [facility] [address] [id number] [place] [address] 2544 May, [facility] [place] [facility] [address] [id number] [place] [address] Apr, [facility] [place] [facility] [address] [id number] [place] [address]- [address]46 Apr, [facility] [place] [facility] [address] [id number] [place] [address]- 6[address] Apr, [facility] [address] [id number] [place] [address]- [address] Mar, [facility] [place] [facility] [address] [id number] [place] [address]- [address] Mar, [facility] [address] [id number] [place] [address]- 3816 February, [facility] [place] [facility] [address] [id number] [place] [address] 69[address] February, [facility] [address] [id number] [place] [address]- [address]30 February, [facility] [address] [id number] [place] [address]- 77[address] February, [facility] [address] [id number] [place] [address] Jan, [facility] [address] [id number] [place] [address]- [address] Jan, [facility] [place] [facility] [address] [id number] [place] [address]- 9689 Jan, [facility] [address] [id number] [place] [address]- 9604 Jan, [facility] [place] [facility] [address] [id number] [place] [address]- [address]13 Dec, [facility] [place] [facility] [address] [id number] [place] [address]- [address]89 13 Dec, 2012 [facility] [place] [facility] [address] [id number] [place] [address]- [address]112 Dec, [facility] [place] [facility] [address] [id number] [place] [address]- [address]103 Nov, [facility] [place] [facility] [address] [id number] [place] [address] 15 Nov, 2012 [facility] [place] [facility] [address] [id number] [place] [address]- 7670 Nov, [facility] [address] [id number] [place] [address]- [address] Oct, [facility] [place] [facility] [address] [id number] [place] [address]- [address] Oct, [facility] [address] [id number] [place] [address]- 265[address] Sep, [facility] [place] [facility] [address] [id number] [place] [address]- 8810 Sep, [facility] [address] [id number] [place] [address]- 6291 Sep, [facility] [place] [facility] [address] [id number] [place] [address] 4[address] Sep, [facility] [address] [id number] [place] [address]- 69[address] Sep, [facility] [place] [facility] [address] [id number] [place] [address]- 6471 Aug, [facility] [place] [facility] [address] [id number] [place] [address]- 8417 Aug, [facility] [place] [facility] [address] [id number] [place] [address]- [address]902 Aug, [facility] [place] [facility] [address] [id number] [place] [address]- 1120 Aug, [facility] [place] [facility] [address] [id number] [place] [address]- 9191 Aug, [facility] [place] [facility] [address] [id number] [place] [address]- 9454 Aug, [facility] [place] [facility] [address] [id number] [place] [address]- 3091 Jun, [facility] [place] [facility] [address] [id number], [place] [address]- [address] Jun, [facility] [place] [facility] [address] [id number] [place] [address]- 9647 Jun, [facility] [place] [facility] [address] [id number] [place] [address] 4119 May, [facility] [place] [facility] [address] [id number] [place] [address]- 2546 May, [facility] [place] [facility] [address] [id number] [place] [address]- 5456 May, [facility] [place] [facility] [address] [id number] [place] [address]- 5335 May, [facility] [place] [facility] [address] [id number] [place] [address]- 4152 Apr, [facility] [place] [facility] [address] [id number] [place] [address]- 4859 Mar, [facility] [place] [facility] [address] [id number] [place] [address]- 5669 Mar, [facility] [place] [facility] [address] [id number] [place] [address]- 0465 Mar, [facility] [place] [facility] [address] [id number] [place] [address]- 8248 February, [facility] [place] [facility] [address] [id number] [place] [address]- 2723 February, [facility] [place] [facility] [address] [id number] [place] [address]- 2787 February, [facility] [place] [facility] [address] [id number] [place] [address]- 5647 February, [facility] [place] [facility] [address] [id number] [place] [address]- 2857 Dec, [facility] [place] [facility] [address] [id number] [place] [address]- 0584 Dec, [facility] [place] [facility] [address] [id number], [place] [address]- [address]276 Dec, [facility] [address] [id number] [place] [address]- 8822 Dec, [facility] [place] [facility] [address] [id number] [place] [address]- 2666 Nov, [facility] [place] [facility] [address] [facility] [id number] [place] [address]- 9846 Nov, [facility] [place] [facility] [id number] [place] [address], [place] [address]- 1721 Nov, [facility] [address] [id number] [place] [address], [place] [address]- [address]274 Nov, [facility] [place] [facility] [address] [facility] [id number] [place] [address]- 4596 Nov, [facility] [address] [facility] [id number] [place] [address], [place] [address]- 3782 Oct, [facility] [place] [facility] [address] [facility] [id number] [place] [address]- 1480 Oct, [facility] [address] [facility] [id number] [place] [address]- 5496 Oct, [facility] [address] [facility] [id number] [place] [address]- 7250 Aug, [facility] [place] [facility] [address] [facility] [id number], [place] [address]- 3196 Aug, [facility] [place] [facility] [address] [facility] [id number], [place] [address]- 6892 Jul, [facility] [place] [facility] [address] [facility] [id number] [place] [address]- 0336 Jul, [facility] [place] [facility] [address] [facility] [id number], [place] [address]- 1282 Jul, [facility] [place] [facility] [address] [facility] [id number], [place] [address]- 7578 Jul, [facility] [place] [facility] [address] [facility] [id number], [place] [address]- [address]15 18 Jul, 2011 [facility] [place] [address] [facility] [id number], [place] [address] Jul, [facility] [place] [address] [facility] [id number], [place] [address]- [address]846 Jul, [facility] [place] [address] [facility] [id number], [place] [address]- 4[address] Jul, [facility] [place] [address] [facility] [id number], [place] [address]- 5182 May, [facility] [place] [address] [facility] [id number] [place] [address]- 1321 February, [facility] [place] [address] [facility] [id number], [place] [address]- 0905 Nov, [facility] [place] [id number], [place] [address]- 1323 Sep, [facility] [place] [address] [id number], [place] [address]- [address]14 Aug, [facility] [place] [address] [id number], [place] [address]- 3176 Oct, [facility] [place] [address] [id number], [place] [address]- [address]598 Jul, [facility] [place] [id number], [place] [address]- [address]328 Jun, [facility] [place] [address] [id number], [place] [address]- 7768 Mar, [facility] [place] [id number], [place] [address]- 4[address] Mar, [facility] [place] [address] [facility] [id number], [place] [address]- 1001 17 Nov, 2008 IMMUNIZATIONS No Known Immunizations SOCIAL HISTORY Never Assessed REASON FOR VISIT rx clarification PLAN OF CARE VITAL SIGNS MEDICATIONS Medication Instructions Dosage Frequency Start Date End Date Duration Status Polyethylene Glycol 3350 Orally 2 times a day MIX 17 GRAMS IN 8 OZ OF SUITABLE LIQUID 12h 30 Active RESULTS No Results PROCEDURES No [...]
--- OUTSIDE RECORDS SUMMARY | 2019-01-24 07:43 | XMS REPORT ---
Author Author FRANCESCO PHILLIPS Organization [facility] Address [address] [place] [address] Care Team Providers Care Time Analysis Clerk Name Role Phone FRANCESCO PHILLIPS Unavailable PROBLEMS Type Condition ICD9-CM Code LMI22-CH Code Onset Dates Condition Status SNOMED Code Problem Paroxysmal atrial fibrillation I48.0 Active 490222366 Problem Generalized anxiety disorder F41.1 Active 61379270 Problem Gastro-esophageal reflux disease without esophagitis K21.9 Active 557862868 Problem Chronic kidney disease, stage 1 N18.1 Active 441551928 Problem Secondary hyperparathyroidism of renal origin N25.81 Active 50709085 Problem 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 Active 163737600 Problem MDD (major depressive disorder), recurrent, in partial remission F33.41 Active 65745066 Problem Acquired hypothyroidism E03.9 Active 129405267 Problem Chronic diastolic heart failure I50.32 Active 180714580 Problem Arthritis M19.90 Active 9615020 Problem Depression F32.9 Active 72538463 Problem Anxiety F41.9 Active 40550353 Problem Chronic kidney disease (CKD) stage G1/A1, glomerular filtration rate ( GFR) equal to or greater than 90 mL/min/1.73 square meter and albuminuria creatinine ratio less than 30 mg/g N18.1 Active 920317152 Problem Atrial fibrillation, unspecified type I48.91 Active 44633128 ALLERGIES No Information ENCOUNTERS Encounter Location Date Diagnosis [facility] [address] [facility] [id number] [place] [address] February, Medicare annual wellness visit, initial Z00.00 ; MDD (major depressive disorder), recurrent, in partial remission F33.41 ; Atrial fibrillation, unspecified type I48.91 ; Chronic diastolic heart failure I50.32 ; Secondary hyperparathyroidism of renal origin N25.81 ; Acquired hypothyroidism E03.9 ; Anxiety F41.9 ; Chronic kidney disease, stage 1 N18.1 and Encounter for immunization Z23 [facility] [place] [facility] [address] [id number] [place] [address] 88665- 5829 February, Closed fracture of one rib of right side, initial encounter S22.31XA ; Acute cystitis with hematuria N30.01 ; Right flank pain R10.9 and Rib pain on right side R07.81 [place] [address] [address]- [address] Jan, 2018 Acquired hypothyroidism E03.9 ; 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 ; Chronic kidney disease (CKD) stage G1/A1, glomerular filtration rate (GFR) equal to or greater than 90 mL/min/1.73 square meter and albuminuria creatinine ratio less than 30 mg/g N18.1 ; Paroxysmal atrial fibrillation I48.0 ; Chronic diastolic heart failure I50.32 and Secondary hyperparathyroidism of renal origin N25.81 [place] [address] [address]- 8998 Jan, Arthritis M19.90 [place] [address] 19496- 9960 Jan, Paroxysmal atrial fibrillation I48.0 [place] [address] 29931- 8187 Jan, Paroxysmal atrial fibrillation I48.0 [place] [id number] [place] [address] 41342- 0790 Jan, [place] [address] 61535- 2809 Jan, Generalized anxiety disorder F41.1 [place] [address] 81697- 7925 Jan, Generalized anxiety disorder F41.1 and MDD (major depressive disorder), recurrent, in partial remission F33.41 [place] [id number] [place] [address] 37437- 3052 Dec, Arthritis M19.90 [place] [address] 35437- 3878 Dec, [facility] [id number] [place] [address] 91681- 2145 Nov, Arthritis M19.90 ; Chronic kidney disease (CKD) stage G1/A1 , glomerular filtration rate (GFR) equal to or greater than 90 mL/min/1.73 square meter and albuminuria creatinine ratio less than 30 mg/g N18.1 and Anxiety F41.9 [place] [id number] [place] [address] 50866- 3753 Nov, [facility] [id number] [place] [address] 87539- 0175 Nov, [facility] [id number] [place] [address] 09841- 5089 Nov, [place] [id number] [place] [address] 75811- 4719 Nov, [facility] [id number] [place] [address] 32267- 2455 Nov, [facility] [id number] [place] [address] 08407- 6068 Oct, Generalized anxiety disorder F41.1 [place] [id number] [place] [address] 04064- 9450 Sep, Atrial fibrillation, unspecified type I48.91 [place] [id number] [place] [address] 54604- 5512 Sep, Generalized anxiety disorder F41.1 and MDD (major depressive disorder), recurrent, in partial remission F33.41 [place] [id number] [place] [address] 18373- 9717 Sep, [facility] [id number] [place] [address] 15022- 2794 Aug, Generalized anxiety disorder F41.1 [facility] [id number] [place] [address] 02833- 5899 Aug, [facility] [address] [address] 9197 Aug, Paroxysmal atrial fibrillation I48.0 and Gastro-esophageal reflux disease without esophagitis K21.9 [facility] [address] [address] 08[address] Jul, [facility] [id number] [place] [address] 50996- 5477 Jul, Generalized anxiety disorder F41.1 [facility] [id number] [place] [address] 40679- 9216 Jun, Generalized anxiety disorder F41.1 and MDD (major depressive disorder), recurrent, in partial remission F33.41 [place] [address] [place] [address] 27779- 8738 May, Recurrent major depressive disorder, in partial remission F33.41 [facility] [id number] [place] [address] 95455- 1927 May, Anxiety F41.9 and Paroxysmal atrial fibrillation I48.0 [place] [address] [place] [address] 91172- 7077 Apr, Generalized anxiety disorder F41.1 [facility] [id number] [place] [address] 77273- 2532 Mar, [facility] [id number] [place] [address] 52727- 9902 Mar, Generalized anxiety disorder F41.1 and MDD (major depressive disorder), recurrent, in partial remission F33.41 [facility] [id number] [place] [address] 75683- 7765 February, Paroxysmal atrial fibrillation I48.[address] [facility] [address] [address]- 7796 February, MDD (major depressive disorder), recurrent, in partial remission F33.41 [facility] [address] [address]- 7[address] Jan, [facility] [id number] [place] [address] 96186 -2171 Jan, [facility] [id number] [place] [address] 14430- 7708 Jan, [facility] [id number] [place] [address] 00709- 0794 Jan, [facility] [id number] [place] [address] 08194- 8197 Dec, [facility] [id number] [place] [address] 49656- 0515 Dec, Generalized anxiety disorder F41.1 [facility] [address] [place] [address] 20732- 7140 Dec, Generalized anxiety disorder F41.1 and MDD (major depressive disorder), recurrent, in partial remission F33.41 [facility] [id number] [place] [address] 33219- 1070 15 Dec, 2016 [facility] [id number] [place] [address] 89690- 6061 Dec, [facility] [id number] [place] [address] 22892- 1685 Dec, [facility] [address] [place] [address] 08207- 8592 Nov, [facility] [id number] [place] [address] 17133- 7473 Nov, Gastro-esophageal reflux disease without esophagitis K21.9 [facility] [address] [place] [address] 05527- 3688 10 Nov, 2016 Atrial fibrillation, unspecified type I48.[address] [facility] [address] [place] [address] 11820- 2083 Oct, [facility] [id number] [place] [address] 41505- 7229 Oct, [facility] [address] [place] [address] 42995- 6462 Oct, Depression F32.9 and Atrial fibrillation, unspecified type I48.91 [place] [address] 79102- 8961 Oct, [facility] [address] [place] [address] 52888- 1688 Sep, Depression F32.9 [place] [address] 33079- 2755 Sep, Recurrent major depressive disorder, in partial remission F33.41 and Generalized anxiety disorder F41.1 [place] [address] 19437- 5882 Sep, Paroxysmal atrial fibrillation I48.0 and Anxiety F41.9 [place] [address] [place] [address] 44702- 3736 Sep, [place] [address] [place] [address] 62017- 8609 Sep, [place] [address] [place] [address] 58234- 1008 Sep, Gastro-esophageal reflux disease without esophagitis K21.9 [facility] [address] [place] [address] 04251- 9198 Aug, [facility] [address] [place] [address] 44469- 8497 Aug, [place] [address] [place] [address] 80475- 8266 Aug, Atrial fibrillation, unspecified type I48.91 [facility] [address] [place] [address] 91611- 1682 Jul, Major depressive disorder, recurrent, in partial remission F33.41 and Generalized anxiety disorder F41.1 [facility] [address] [place] [address] 13135- 7744 Jul, [facility] [address] [place] [address] 65791- 9031 30 Jun, 2016 [facility] [address] [place] [address] 05577- 7584 15 Jun, 2016 Bronchitis J40 and Memory loss R41.3 [facility] [address] [place] [address] 18572- 5279 14 Jun, 2016 Upper respiratory infection with cough and congestion J06.9 [place] [address] [place] [address] 15119- 4865 Apr, [place] [address] [place] [address] 32659- 8027 Apr, Major depressive disorder, recurrent, unspecified F33.9 ; Anxiety F41.9 and Psychophysiological insomnia F51.04 [facility] [address] [place] [address] 35556- 8071 Mar, [place] [id number] [place] [address] 21636- 7640 Mar, [facility] [id number] [place] [address] 90075- 9239 February, [facility] [address] [place] [address] 66681- 5406 Jan, Postural hypotension I95.1 [facility] [address] [place] [address] 69132- 9262 Jan, Recurrent major depressive disorder in remission F33.40 ; Generalized anxiety disorder F41.1 and Psychophysiological insomnia F51.04 [facility] [address] [place] [address] 24054- 9655 Dec, Generalized anxiety disorder F41.1 [facility] [address] [place] [address] 94835 -3540 Dec, Unspecified fall, initial encounter W19.XXXA [place] [address] 95689- 8360 Nov, Depression F32.9 and Anxiety F41.9 [place] [address] 52004- 6440 Oct, [place] [address] 89980- 4224 Oct, [place] [address] 33517- 2213 Oct, Chronic kidney disease, stage 3 (moderate) N18.3 [place] [address] 02559- 0675 Oct, Head contusion S00.93XA ; Cervical strain S16.1XXA and Arthritis M19.90 [place] [address] 19116- 8892 Oct, Chronic kidney disease 585.9 [place] [address] 37654- 6978 Oct, Chronic kidney disease 585.9 [place] [address] 83540- 4541 Oct, [place] [address] 22610- 1255 Sep, [place] [id number] [place] [address] 38292- 8161 Aug, Chronic kidney disease N18.9 [place] [address] [place] [address] 32199- 6347 Aug, Chronic kidney disease (CKD) stage G1/A1, glomerular filtration rate (GFR) equal to or greater than 90 mL/min/1.73 square meter and albuminuria creatinine ratio less than 30 mg/g N18.1 and GERD (gastroesophageal reflux disease) K21.9 [facility] [address] [place] [address] 60148- 3816 Aug, 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 [address] 62343- 1875 Jun, [facility] [address] 02690- 7994 May, [facility] [address] 94839- 7981 May, Generalized anxiety disorder 300.02 and Depression, major, recurrent, in remission 296.35 [facility] [address] 88432- 8632 May, [facility] [id number] [place] [address] 74402- 9863 May, [facility] [id number] [place] [address] 74432- 7040 May, [facility] [id number] [place] [address] 13553- 1645 May, [facility] [address] [place] [address] 60735- 5855 May, Chronic kidney disease 585.9 [facility] [address] [place] [address] 02661- 0092 Apr, Chronic kidney disease 585.9 [facility] [address] [place] [address] 74662- 9942 Apr, [facility] [address] [place] [address] 72418- 1650 Apr, Arthropathy 716.90 ; Hyperlipidemia 272.4 ; Hypothyroidism 244.9 and GERD (gastroesophageal reflux disease) 530.81 [facility] [address] [place] [address] 55891- 0019 Apr, Arthropathy 716.90 ; Hypothyroidism 244.9 ; Hyperlipidemia 272.4 and GERD (gastroesophageal reflux disease) 530.81 [facility] [address] [place] [address] 17856- 7056 Mar, [facility] [address] [place] [address] 001311- 0996 February, Depression, major, recurrent, in remission 296.35 and Generalized anxiety disorder 300.02 [facility] [address] [place] [address] 87076- 1666 February, [facility] [id number] [place] [address] 00522- 4450 February, [facility] [address] [place] [address] 82289- 0323 Jan, [facility] [id number] [place] [address] 37231- 9323 Jan, [facility] [id number] [place] [address] [id number]- 1369 Oct, [facility] [address] [address]- 3749 Oct, [facility] [id number] [place] [address] 34295188- 3726 Oct, [facility] [address] [address]- 6518 Oct, [facility] [id number] [place] [address] 78225- 1956 Oct, [facility] [address] [address]- 0456 Oct, [facility] [id number] [place] [address] 58123- 1611 Sep, [facility] [place] [facility] [address] [id number] [place] [address]- 4836 Sep, [facility] [place] [facility] [address] [id number] [place] [address]- 1076 Aug, [facility] [place] [facility] [address] [id number] [place] [address]- 9952 Aug, [facility] [place] [facility] [address] [id number] [place] [address]- 3115 Aug, [facility] [place] [facility] [address] [id number] [place] [address]- 0738 Aug, [facility] [place] [facility] [address] [id number] [place] [address]- 5552 Jul, [facility] [place] [facility] [address] [id number] [place] [address]- 3482 Jul, [facility] [place] [facility] [address] [id number] [place] [address]- 0603 Jul, [facility] [place] [facility] [address] [id number] [place] [address]- 1084 Jul, [facility] [place] [facility] [address] [id number] [place] [address]- 8613 29 Jun, 2014 [facility] [place] [facility] [address] [id number] [place] [address]- 5607 Jun, [facility] [place] [facility] [address] [id number] [place] [address]- 2850 22 Jun, 2014 [facility] [place] [facility] [address] [id number] [place] [address]- 2547 10 Jun, 2014 [facility] [place] [facility] [address] [id number] [place] [address]- 3667 10 Jun, 2014 [facility] [place] [facility] [address] [id number] [place] [address]- 2233 Jun, [facility] [place] [facility] [address] [id number] [place] [address]- 1963 Jun, [facility] [place] [facility] [address] [id number] [place] [address]- 3848 May, [facility] [place] [facility] [address] [id number] [place] [address]- 3896 May, [facility] [place] [facility] [address] [id number] [place] [address]- 9002 May, [facility] [place] [facility] [address] [id number] [place] [address]- 7526 May, [facility] [place] [facility] [address] [id number] [place] [address]- 7636 Apr, [facility] [place] [facility] [address] [id number] [place] [address]- 6370 Apr, [facility] [place] [facility] [address] [id number] [place] [address]- 5871 Apr, [facility] [place] [facility] [address] [id number] [place] [address]- 5180 Apr, [facility] [place] [facility] [address] [id number] [place] [address]- 3546 Apr, [facility] [place] [facility] [address] [id number] [place] [address]- 7090 Apr, [facility] [place] [facility] [address] [id number] [place] [address]- 9434 Apr, [facility] [place] [facility] [address] [id number] [place] [address]- 8374 Apr, [facility] [place] [facility] [address] [id number] [place] [address]- 5107 Mar, [facility] [place] [facility] [address] [id number] [place] [address]- 6074 Mar, [facility] [place] [facility] [address] [id number] [place] [address]- 8159 Mar, [facility] [place] [facility] [address] [id number] [place] [address]- 7676 Mar, [facility] [place] [facility] [address] [id number] [place] [address]- 3774 Mar, [facility] [place] [facility] [address] [id number] [place] [address]- 4337 Mar, [facility] [place] [facility] [address] [id number] [place] [address]- 1844 Mar, [facility] [place] [facility] [address] [id number] [place] [address]- 2487 Mar, [facility] [place] [facility] [address] [id number] [place] [address]- 6537 Dec, [facility] [place] [facility] [address] [id number] [place] [address]- 1595 Dec, [facility] [place] [facility] [address] [id number] [place] [address]- 7053 Dec, [facility] [place] [facility] [address] [id number] [place] [address]- 4040 Dec, [facility] [place] [facility] [address] [id number] [place] [address]- 3415 Dec, [facility] [place] [facility] [address] [id number] [place] [address]- 7586 Dec, [facility] [place] [facility] [address] [id number] [place] [address]- 0447 Dec, [facility] [place] [facility] [address] [id number] [place] [address]- 2717 Dec, [facility] [place] [facility] [address] [id number] [place] [address]- 0620 Nov, [facility] [place] [facility] [address] [id number] [place] [address]- 4373 Nov, [facility] [place] [facility] [address] [id number] [place] [address]- 5941 Nov, 2013 [facility] [place] [facility] [address] [id number] [place] [address]- 2042 Nov, 2013 [facility] [place] [facility] [address] [id number] [place] [address]- 5977 14 Nov, 2013 [facility] [place] [facility] [address] [id number] [place] [address]- 1153 Nov, 2013 [facility] [place] [facility] [address] [id number] [place] [address]- 4634 Nov, [facility] [place] [facility] [address] [id number] [place] [address]- 7593 Nov, [facility] [place] [facility] [address] [id number] [place] [address]- 0003 Aug, [facility] [place] [facility] [address] [facility] [id number] [place] [address]- 5727 Aug, [facility] [place] [facility] [address] [id number] [place] [address]- 3008 Jul, [facility] [place] [facility] [address] [facility] [id number] [place] [address] 18 Jul, 2013 [facility] [place] [facility] [address] [facility] [id number] [place] [address] 02 Jul, 2013 [facility] [place] [facility] [address] [id number] [place] [address] 30 Jun, 2012 [facility] [place] [facility] [address] [id number] [place] [address] 30 Jun, 2012 [facility] [place] [facility] [address] [id number] [place] [address] 24 Jun, 2012 [facility] [place] [facility] [address] [id number] [place] [address] 04 Sep, 2012 [facility] [place] [facility] [address] [facility] [id number] [place] [address] 04 Sep, 2012 [facility] [place] [facility] [address] [id number] [place] [address] May, [facility] [address] [id number] [place] Apr, [facility] [place] [facility] [address] [id number] [place] [address] Apr, [facility] [address] [id number] [place] [address] Apr, [facility] [address] [id number] [place] [address] Mar, [facility] [address] [id number] [place] [address] Mar, [facility] [address] [id number] [place] [address] February, [facility] [address] [id number] [place] [address] February, [facility] [address] [id number] [place] [address] February, [facility] [address] [id number] [place] [address] February, [facility] [address] [id number] [place] [address] Jan, [facility] [address] [id number] [place] [address] Jan, [facility] [place] [facility] [address] [id number] [place] [address] Jan, [facility] [place] [facility] [address] [id number] [place] [address] Jan, [facility] [place] [facility] [address] [id number] [place] [address] Dec, [facility] [place] [facility] [address] [id number] [place] [address] 13 Dec, 2012 [facility] [place] [facility] [address] [id number] [place] [address] Dec, [facility] [place] [facility] [address] [id number] [place] [address] 22 Nov, 2012 [facility] [place] [facility] [address] [id number] [place] [address] 15 Nov, 2012 [facility] [place] [facility] [address] [id number] [place] [address] Nov, [facility] [place] [facility] [address] [id number] [place] [address] Oct, [facility] [place] [facility] [address] [id number] [place] [address] Oct, [facility] [place] [facility] [address] [id number] [place] [address] Sep, [facility] [place] [facility] [address] [id number] [place] [address] Sep, [facility] [place] [facility] [address] [id number] [place] [address] Sep, [facility] [place] [facility] [address] [id number] [place] [address] Sep, [facility] [place] [facility] [address] [id number] [place] [address] Sep, [facility] [place] [facility] [address] [id number] [address] Aug, [facility] [place] [facility] [address] [id number] [place] [address] Aug, [facility] [place] [facility] [address] [id number] [place] [address] Aug, [facility] [place] [facility] [address] [id number] [place] [address] Aug, [facility] [place] [facility] [address] [id number] [place] [address] Aug, [facility] [address] [id number] [place] [address] Aug, [facility] [place] [facility] [address] [id number] [place] [address] Jun, [facility] [address] [id number] [place] [address] Jun, [facility] [place] [facility] [address] [id number] [place] [address] Jun, [facility] [address] [id number] [place] [address] May, [facility] [address] [id number] [place] [address] May, [facility] [address] [id number] [place] [address] May, [facility] [address] [id number] [place] [address] May, [facility] [address] [id number] [place] [address] Apr, [facility] [address] [id number] [place] [address] Mar, [facility] [place] [facility] [address] [id number] [place] [address] Mar, [facility] [address] [id number] [place] [address] Mar, [facility] [place] [facility] [address] [id number] [place] [address] February, [facility] [place] [facility] [address] [id number] [place] [address] February, [facility] [address] [id number] [place] [address] February, [facility] [address] [id number] [place] [address] February, [facility] [place] [facility] [address] [id number] [place] [address] Dec, [facility] [place] [facility] [address] [id number] [place] [address] Dec, [facility] [place] [facility] [address] [id number] [place] [address] Dec, [facility] [address] [id number] [place] [address] Dec, [facility] [place] [facility] [address] [id number] [place] [address] Nov, [facility] [place] [facility] [address] [id number] [place] [address] Nov, [facility] [place] [facility] [address] [id number] [place] [address] Nov, [facility] [place] [facility] [address] [id number] [place] [address] Nov, [facility] [place] [facility] [address] [id number] [place] [address]- [address] Nov, [facility] [place] [facility] [address] [id number] [place] [address] Oct, [facility] [place] [facility] [address] [id number] [place] [address] Oct, [facility] [place] [facility] [address] [id number] [place] [address] Oct, [facility] [place] [facility] [address] [id number] [place] [address] Aug, [facility] [place] [facility] [address] [id number] [place] [address]- [address] Aug, [facility] [place] [facility] [address] [id number] [place] [address] Jul, [facility] [place] [facility] [address] [id number] [place] [address] 24 Jul, 2011 [facility] [place] [facility] [address] [id number] [place] [address] Jul, [facility] [place] [facility] [address] [id number] [place] [address] Jul, [facility] [place] [facility] [address] [id number] [place] [address] Jul, [facility] [place] [facility] [address] [id number] [place] [address] Jul, [facility] [place] [facility] [address] [id number] [place] [address] Jul, [facility] [place] [facility] [address] [id number] [place] [address] Jul, [facility] [place] [facility] [address] [id number] [place] [address] May, [facility] [place] [facility] [address] [id number] [place] [address] February, [facility] [place] [facility] [address] [id number] [place] [address]- [address] Nov, [facility] [place] [facility] [address] [id number] [place] [address] Sep, [facility] [place] [facility] [address] [id number] [place] [address] Aug, [facility] [place] [facility] [address] [id number] [place] [address] 14 Oct, 2009 [facility] [place] [facility] [address] [id number] [place] [address] Jul, [facility] [place] [facility] [address] [id number] [place] [address] Jun, [facility] [address] [facility] [id number] [place] [address] Mar, [facility] [address] [facility] [id number] [place] [address] Mar, [facility] [address] [facility] [id number] [place] [address] 17 Nov, 2008 IMMUNIZATIONS No Known Immunizations SOCIAL HISTORY Never Assessed REASON FOR VISIT Requests return call PLAN OF CARE VITAL SIGNS MEDICATIONS No [...]
[2019-01-24] MEDS ORDERED: oxyCODONE/APAP 5/325MG (PERCOCET 5) TABLET PO PRN (07:45)
--- OUTSIDE RECORDS SUMMARY | 2019-01-24 07:45 | XMS REPORT ---
Author Author FRANCESCO PHILLIPS [facility] Address [address] [place] [address] Care Team Providers Care Ed Physicians Name Role Phone FRANCESCO PHILLIPS Unavailable PROBLEMS Type Condition ICD9-CM Code IBF32-YK Code Onset Dates Condition Status SNOMED Code Problem Paroxysmal atrial fibrillation I48.0 Active 578645665 Problem Generalized anxiety disorder F41.1 Active 93603025 Problem Gastro-esophageal reflux disease without esophagitis K21.9 Active 350245395 Problem Chronic kidney disease, stage 1 N18.1 Active 956895546 Problem Secondary hyperparathyroidism of renal origin N25.81 Active 52354571 Problem 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 Active 393061004 Problem MDD (major depressive disorder), recurrent, in partial remission F33.41 Active 80040087 Problem Acquired hypothyroidism E03.9 Active 336492483 Problem Chronic diastolic heart failure I50.32 Active 492686753 Problem Arthritis M19.90 Active 9202669 Problem Depression F32.9 Active 04798037 Problem Anxiety F41.9 Active 36305697 Problem Chronic kidney disease (CKD) stage G1/A1, glomerular filtration rate ( GFR) equal to or greater than 90 mL/min/1.73 square meter and albuminuria creatinine ratio less than 30 mg/g N18.1 Active 051266256 Problem Atrial fibrillation, unspecified type I48.91 Active 99082818 ALLERGIES No Information ENCOUNTERS Encounter Location Date Diagnosis [facility] [address] [facility] [id number] [address] Mar, Pain, dental K08.89 [facility] [address] [facility] [id number] [address] February, Medicare annual wellness visit, initial Z00.00 ; MDD (major depressive disorder), recurrent, in partial remission F33.41 ; Atrial fibrillation, unspecified type I48.91 ; Chronic diastolic heart failure I50.32 ; Secondary hyperparathyroidism of renal origin N25.81 ; Acquired hypothyroidism E03.9 ; Anxiety F41.9 ; Chronic kidney disease, stage 1 N18.1 and Encounter for immunization Z23 [place] [address] [address] February, Closed fracture of one rib of right side, initial encounter S22.31XA ; Acute cystitis with hematuria N30.01 ; Right flank pain R10.9 and Rib pain on right side R07.81 [place] [address] [address] Jan, Acquired hypothyroidism E03.9 ; 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 ; Chronic kidney disease (CKD) stage G1/A1, glomerular filtration rate (GFR) equal to or greater than 90 mL/min/1.73 square meter and albuminuria creatinine ratio less than 30 mg/g N18.1 ; Paroxysmal atrial fibrillation I48.0 ; Chronic diastolic heart failure I50.32 and Secondary hyperparathyroidism of renal origin N25.81 [place] [address] [address] Jan, Arthritis M19.90 [place] [address] [address] Jan, Paroxysmal atrial fibrillation I48.0 [place] [address] [address]- [address] Jan, Paroxysmal atrial fibrillation I48.0 [place] [address] 6[address]67- 69[address] Jan, [place] [address] [address]- 88[address] Jan, Generalized anxiety disorder F41.1 [place] [address] 28[address]- 6499 Jan, Generalized anxiety disorder F41.1 and MDD (major depressive disorder), recurrent, in partial remission F33.[address] [place] [address] Dec, Arthritis M19.90 [facility] [address] [place] [id number] [place] [address] 63535- 2474 Dec, [facility] [address] [place] [id number] [place] [address] 34807- 4718 Nov, Arthritis M19.90 ; Chronic kidney disease (CKD) stage G1/A1 , glomerular filtration rate (GFR) equal to or greater than 90 mL/min/1.73 square meter and albuminuria creatinine ratio less than 30 mg/g N18.1 and Anxiety F41.9 [place] [address] [place] [id number] [place] [address] 76526- 0863 Nov, [facility] [address] [address]82- 9562 Nov, [facility] [address] 21003- 0341 Nov, [facility] [address] [place] [id number] [place] [address] 36000- 7538 Nov, [facility] [address] [place] [id number] [place] [address] 22738- 4720 Nov, [facility] [address] [place] [id number] [place] [address] 45732- 1102 Oct, Generalized anxiety disorder F41.1 [facility] [address] [place] [id number] [place] [address] 69855- 7536 Sep, Atrial fibrillation, unspecified type I48.91 [facility] [address] [place] [id number] [place] [address] 68868- 6215 Sep, Generalized anxiety disorder F41.1 and MDD (major depressive disorder), recurrent, in partial remission F33.41 [place] [address] [place] [id number] [place] [address] 54867- 9523 Sep, [facility] [address] [place] [id number] [place] [address] 58207- 2498 Aug, Generalized anxiety disorder F41.1 [facility] [id number] [place] [address] 60559- 3374 Aug, [facility] [address] [place] [id number] [place] [address] 99670- 4997 Aug, Paroxysmal atrial fibrillation I48.0 and Gastro-esophageal reflux disease without esophagitis K21.9 [facility] [address] [place] [id number] [place] [address] 99913- 8522 Jul, [facility] [address] [place] [id number] [place] [address] 95848- 3742 Jul, Generalized anxiety disorder F41.1 [place] [address] [place] [id number] [place] [address] 63380- 7364 Jun, Generalized anxiety disorder F41.1 and MDD (major depressive disorder), recurrent, in partial remission F33.41 [facility] [address] [place] [id number] [place] [address] 09172- 2749 May, Recurrent major depressive disorder, in partial remission F33.41 [facility] [address] [place] [id number] [place] [address] 48778- 8289 May, Anxiety F41.9 and Paroxysmal atrial fibrillation I48.0 [place] [id number] [place] [address] 50510- 0021 Apr, Generalized anxiety disorder F41.1 [facility] [id number] [place] [address] 03285- 7295 Mar, [facility] [id number] [place] [address] 47738- 2089 Mar, Generalized anxiety disorder F41.1 and MDD (major depressive disorder), recurrent, in partial remission F33.41 [facility] [id number] [place] [address] 24194- 8254 February, Paroxysmal atrial fibrillation I48.0 and Anxiety F41.9 [facility] [address] [id number] [address] February, MDD (major depressive disorder), recurrent, in partial remission F33.41 [facility] [address] [address] Jan, [facility] [address] [place] [address] Jan, [facility] [address] [place] [id number] [place] [address] 30907- 1104 Jan, [facility] [id number] [place] [address] 52364- 4464 Jan, [facility] [address] [place] [id number] [place] [address] 20220- 9609 Dec, [facility] [address] [place] [id number] [place] [address] 26499- 7583 Dec, Generalized anxiety disorder F41.1 [facility] [address] [place] [id number] [place] [address] 39921- 8475 Dec, Generalized anxiety disorder F41.1 and MDD (major depressive disorder), recurrent, in partial remission F33.41 [facility] [address] [address] 4[address] Dec, [facility] [address] [address] 7916 Dec, [facility] [address] [address]- 7794 Dec, [facility] [address] [address] 5185 Nov, [facility] [address] [place] [id number] [place] [address] 04387- 2617 Nov, Gastro-esophageal reflux disease without esophagitis K21.9 [facility] [address] [address]- 1143 Nov, Atrial fibrillation, unspecified type I48.91 and Anxiety F41.9 [facility] [address] [place] [id number] [place] [address] 76251- 5122 Oct, [facility] [address] [place] [id number] [place] [address] 43801- 1083 Oct, [facility] [address] [place] [id number] [place] [address] 91731- 8607 Oct, Depression F32.9 and Atrial fibrillation, unspecified type I48.91 [facility] [address] [place] [id number] [place] [address] 17807- 0081 Oct, [facility] [address] [place] [id number] [place] [address] 44181- 7902 Sep, Depression F32.9 [facility] [address] [place] [id number] [place] [address] 37562- 3311 Sep, Recurrent major depressive disorder, in partial remission F33.41 and Generalized anxiety disorder F41.1 [place] [address] [place] [id number] [place] [address] 38166- 4056 Sep, Paroxysmal atrial fibrillation I48.0 and Anxiety F41.9 [facility] [address] [place] [id number] [place] [address] 90852- 9701 Sep, [facility] [address] [place] [id number] [place] [address] 24920- 8008 Sep, [facility] [address] [place] [id number] [place] [address] 24026- 0573 Sep, Gastro-esophageal reflux disease without esophagitis K21.9 [facility] [address] [place] [id number] [place] [address] 23272- 9959 Aug, [facility] [address] [place] [id number] [place] [address] 21566- 3750 Aug, [facility] [address] [place] [id number] [place] [address] 57320- 3603 Aug, Atrial fibrillation, unspecified type I48.91 [place] [address] [place] [address] 00867- 1460 Jul, Major depressive disorder, recurrent, in partial remission F33.41 and Generalized anxiety disorder F41.1 [place] [address] [place] [id number] [place] [address] 44315- 1260 Jul, [place] [address] [place] [id number] [place] [address] 68670- 7423 30 Jun, 2016 [place] [address] [place] [id number] [place] [address] 25692- 7838 15 Jun, 2016 Bronchitis J40 and Memory loss R41.3 [place] [address] [place] [id number] [place] [address] 90293- 9157 14 Jun, 2016 Upper respiratory infection with cough and congestion J06.9 [place] [address] [place] [id number] [place] [address] 30503- 1935 Apr, [place] [address] [place] [id number] [place] [address] 02740- 8306 Apr, Major depressive disorder, recurrent, unspecified F33.9 ; Anxiety F41.9 and Psychophysiological insomnia F51.04 [place] [address] [place] [id number] [place] [address] 13877- 4285 Mar, [place] [address] [place] [id number] [place] [address] 15579- 4439 Mar, [place] [address] [place] [id number] [place] [address] 91366- 1548 February, [place] [address] [place] [id number] [place] [address] 58045- 0951 Jan, Postural hypotension I95.1 [facility] [id number] [place] [address] 10292- 1076 14 Jan, 2016 Recurrent major depressive disorder in remission F33.40 ; Generalized anxiety disorder F41.1 and Psychophysiological insomnia F51.04 [place] [id number] [place] [address] 94125- 6346 14 Dec, 2015 Generalized anxiety disorder F41.1 [facility] [address] [place] [id number] [place] [address] 17301 -6218 11 Dec, 2015 Unspecified fall, initial encounter W19.XXXA [facility] [address] [place] [id number] [place] [address] 29365- 3892 Nov, Depression F32.9 and Anxiety F41.9 [facility] [address] [place] [id number] [place] [address] 81299- 6155 Oct, [place] [address] 55967- 3029 Oct, [facility] [address] [place] [id number] [place] [address] 87271- 1219 Oct, Chronic kidney disease, stage 3 (moderate) N18.3 [place] [address] [place] [id number] [place] [address] 52439- 9506 Oct, Head contusion S00.93XA ; Cervical strain S16.1XXA and Arthritis M19.90 [place] [address] [place] [id number] [place] [address] 74931- 9369 Oct, Chronic kidney disease 585.9 [place] [address] [place] [id number] [place] [address] 06140- 8588 Oct, Chronic kidney disease 585.9 [place] [address] [place] [id number] [place] [address] 02598- 7310 Oct, [place] [address] [place] [id number] [place] [address] 12553- 1652 Sep, [place] [address] [place] [id number] [place] [address] 78868- 6021 Aug, Chronic kidney disease N18.9 [place] [address] [place] [id number] [place] [address] 22010- 9843 Aug, Chronic kidney disease (CKD) stage G1/A1, glomerular filtration rate (GFR) equal to or greater than 90 mL/min/1.73 square meter and albuminuria creatinine ratio less than 30 mg/g N18.1 and GERD (gastroesophageal reflux disease) K21.9 [facility] [address] [place] [id number] [place] [address] 25022- 1758 Aug, [facility] [address] 79584- 7397 Jun, Generalized anxiety disorder 300.02 ; Major depression, recurrent 296.30 and Persistent 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 [facility] [address] 88324- 6010 Jun, [facility] [address] 74695- 7228 May, [facility] [address] 29164- 7185 May, Generalized anxiety disorder 300.02 and Depression, major, recurrent, in remission 296.35 [facility] [address] [place] [id number] [place] [address] 18239- 8143 May, [facility] [address] 91701- 5273 May, [facility] [address] [place] [id number] [place] [address] 44883- 9384 May, [facility] [address] [place] [id number] [place] [address] 03887- 1774 May, [facility] [address] [place] [id number] [place] [address] 97191- 4591 May, Chronic kidney disease 585.9 [facility] [address] 76601- 7374 Apr, Chronic kidney disease 585.9 [facility] [address] [place] [id number] [place] [address] 33999- 3640 Apr, [facility] [address] [place] [id number] [address]- 9989 Apr, Arthropathy 716.90 ; Hyperlipidemia 272.4 ; Hypothyroidism 244.9 and GERD (gastroesophageal reflux disease) 530.81 [facility] [address] [place] [id number] [place] [address] 38711- 5380 Apr, Arthropathy 716.90 ; Hypothyroidism 244.9 ; Hyperlipidemia 272.4 and GERD (gastroesophageal reflux disease) 530.81 [facility] [address] [place] [id number] [place] [address] 75504- 8599 17 Mar, 2015 [facility] [address] 137357- 8255 February, Depression, major, recurrent, in remission 296.35 and Generalized anxiety disorder 300.02 [facility] [address] [place] [id number] [place] [address] 85100- 3615 February, [facility] [address] [place] [id number] [place] [address] 19497- 0753 February, [facility] [address] [place] [id number] [place] [address] 73477- 6185 Jan, [facility] [address] [place] [id number] [place] [address] 48116- 6554 Jan, [facility] [address] [place] [id number] [place] [address] 54714- 1841 Oct, [facility] [address] [place] [id number] [place] [address] 35924- 9839 Oct, [facility] [address] [place] [id number] [place] [address] 55737- 5140 Oct, [facility] [address] [place] [id number] [place] [address] 11047- 7057 Oct, [facility] [address] [place] [id number] [place] [address] 302447- 6909 Oct, [facility] [address] [place] [id number] [place] [address] 16194- 9704 Oct, [facility] [place] [facility] [address] [id number] [place] [address]- 6743 Sep, [facility] [place] [facility] [address] [id number] [place] [address]- 6857 Sep, [facility] [place] [facility] [address] [id number] [place] [address]- 0866 Aug, [facility] [place] [facility] [address] [id number] [place] [address]- 6181 Aug, [facility] [place] [facility] [address] [id number] [place] [address]- 0257 Aug, [facility] [place] [facility] [address] [id number] [place] [address]- 0244 Aug, [facility] [place] [facility] [address] [id number] [place] [address]- 6735 Jul, [facility] [place] [facility] [address] [id number] [place] [address]- 1826 Jul, [facility] [place] [facility] [address] [id number] [place] [address]- 6233 Jul, [facility] [place] [facility] [address] [id number] [place] [address]- 3869 Jul, [facility] [place] [facility] [address] [id number] [address]- 8184 29 Jun, 2014 [facility] [place] [facility] [address] [id number] [place] [address]- 8625 22 Jun, 2014 [facility] [place] [facility] [address] [id number] [place] [address]- 2979 22 Jun, 2014 [facility] [place] [facility] [address] [id number] [place] [address]- 7764 10 Jun, 2014 [facility] [place] [facility] [address] [id number] [place] [address]- 4248 10 Jun, 2014 [facility] [place] [facility] [address] [id number] [place] [address]- 3114 Jun, [facility] [place] [facility] [address] [id number] [place] [address]- 0219 Jun, [facility] [place] [facility] [address] [id number] [place] [address]- 2357 May, [facility] [place] [facility] [address] [id number] [place] [address]- 0604 May, [facility] [place] [facility] [address] [id number] [place] [address]- 5343 May, [facility] [place] [facility] [address] [id number] [place] [address]- 0607 May, [facility] [place] [facility] [address] [id number] [place] [address]- 5117 Apr, [facility] [place] [facility] [address] [id number] [place] [address]- 9132 Apr, [facility] [place] [facility] [address] [id number] [place] [address]- 4482 Apr, [facility] [place] [facility] [address] [id number] [place] [address]- 1760 Apr, [facility] [place] [facility] [address] [id number] [place] [address]- 9639 Apr, [facility] [place] [facility] [address] [id number] [place] [address]- 7315 Apr, [facility] [place] [facility] [address] [id number] [place] [address]- 0573 Apr, [facility] [place] [facility] [address] [id number] [place] [address]- 3596 Apr, [facility] [place] [facility] [address] [id number] [place] [address]- 6498 Mar, [facility] [place] [facility] [address] [id number] [place] 7441 Mar, [facility] [place] [facility] [address] [id number] [place] [address]- 8194 Mar, [facility] [place] [facility] [address] [id number] [place] [address]- 9179 Mar, [facility] [place] [facility] [address] [id number] [place] [address]- 9419 Mar, [facility] [place] [facility] [address] [id number] [place] [address]- 5244 Mar, [facility] [place] [facility] [address] [id number] [place] [address]- 3122 Mar, [facility] [place] [facility] [address] [id number] [place] [address]- 4803 Mar, [facility] [place] [facility] [address] [id number] [place] [address]- 1092 Dec, [facility] [place] [facility] [address] [id number] [place] [address]- 9029 Dec, [facility] [place] [facility] [address] [id number] [place] [address]- 4999 Dec, [facility] [place] [facility] [address] [id number] [place] [address]- 8118 Dec, [facility] [place] [facility] [address] [id number] [place] [address]- 2924 Dec, [facility] [place] [facility] [address] [id number] [place] [address]- 7775 Dec, [facility] [place] [facility] [address] [id number] [place] [address]- 9580 Dec, [facility] [place] [facility] [address] [id number] [place] [address]- 9215 Dec, [facility] [place] [facility] [address] [id number] [place] [address]- 9333 Nov, [facility] [place] [facility] [address] [id number] [place] [address]- 0078 26 Nov, 2013 [facility] [place] [facility] [address] [id number] [place] [address]- 6806 Nov, 2013 [facility] [place] [facility] [address] [id number] [place] [address] 2546 Nov, 2013 [facility] [place] [facility] [address] [id number] [place] [address] 2546 14 Nov, 2013 [facility] [place] [facility] [address] [id number] [place] [address]- 2546 Nov, 2013 [facility] [place] [facility] [address] [id number] [place] [address]- 7994 Nov, 2013 [facility] [place] [facility] [address] [facility] [id number] [place] 1608 Nov, [facility] [place] [facility] [address] [facility] [id number] [place] [address]- 1382 Aug, [facility] [place] [facility] [address] [id number] [place] [address]- 1423 Aug, [facility] [place] [facility] [address] [facility] [id number] [place] [address]- 0192 18 Jul, 2013 [facility] [place] [facility] [address] [facility] [id number] [place] [address]- 5800 18 Jul, 2013 [facility] [place] [facility] [address] [facility] [id number] [place] [address]- 2548 02 Jul, 2013 [facility] [place] [facility] [address] [id number] [place] [address] 30 Jun, 2013 [facility] [place] [facility] [address] [id number] [place] [address] 30 Jun, 2013 [facility] [place] [facility] [address] [id number] [place] [address] 24 Jun, 2013 [facility] [place] [facility] [address] [id number] [place] [address] Jun, [facility] [address] [id number] [place] [address] Jun, [facility] [place] [facility] [address] [id number] [place] [address] May, [facility] [place] [facility] [address] [id number] [place] [address] Apr, [facility] [place] [facility] [address] [id number] [place] [address] Apr, [facility] [address] [id number] [place] [address] Apr, [facility] [place] [facility] [address] [id number] [place] [address] Mar, [facility] [place] [facility] [address] [id number] [place] [address] Mar, [facility] [address] [id number] [place] [address] February, [facility] [place] [facility] [address] [id number] [place] [address] February, [facility] [place] [facility] [address] [id number] [place] [address] February, [facility] [place] [facility] [address] [id number] [place] [address] February, [facility] [place] [facility] [address] [id number] [place] [address] Jan, [facility] [place] [facility] [address] [id number] [place] [address] Jan, [facility] [place] [facility] [address] [id number] [place] [address] Jan, [facility] [place] [facility] [address] [id number] [place] [address] Jan, [facility] [place] [facility] [address] [id number] [place] [address] 20 Dec, 2012 [facility] [address] [id number] [place] [address] 13 Dec, 2012 [facility] [place] [facility] [address] [id number] [place] [address] Dec, [facility] [place] [facility] [address] [id number] [place] [address] 22 Nov, 2012 [facility] [place] [facility] [address] [id number] [place] [address] 15 Nov, 2012 [facility] [place] [facility] [address] [id number] [place] [address] Nov, [facility] [place] [facility] [address] [id number] [place] [address] Oct, [facility] [address] [id number] [place] [address] Oct, [facility] [place] [facility] [address] [id number] [place] [address] Sep, [facility] [place] [facility] [address] [id number] [place] [address] Sep, [facility] [place] [facility] [address] [id number] [place] [address] Sep, [facility] [place] [facility] [address] [id number] [place] [address] Sep, [facility] [facility] [address] [id number] [place] [address] Sep, [facility] [facility] [address] [id number] [place] [address] Aug, [facility] [place] [facility] [address] [id number] [place] [address] Aug, [facility] [place] [facility] [address] [id number] [place] [address] [address] Aug, [facility] [facility] [address] [id number] [place] [address] Aug, [facility] [place] [facility] [address] [id number] [place] [address] Aug, [facility] [place] [facility] [address] [id number] [place] [address] Aug, [facility] [place] [facility] [address] [id number] [place] [address] Jun, [facility] [place] [facility] [address] [id number] [place] [address] Jun, [facility] [place] [facility] [address] [id number] [place] [address] Jun, [facility] [place] [facility] [address] [id number] [place] [address] May, [facility] [place] [facility] [address] [id number] [place] [address] May, [facility] [place] [facility] [address] [id number] [place] [address] May, [facility] [place] [facility] [address] [id number] [place] [address] May, [facility] [place] [facility] [address] [id number] [place] [address] Apr, [facility] [place] [facility] [address] [id number] [place] [address] Mar, [facility] [place] [facility] [address] [id number] [place] [address] Mar, [facility] [place] [facility] [address] [id number] [place] [address] Mar, [facility] [place] [facility] [address] [id number] [place] [address] February, [facility] [place] [facility] [address] [id number] [place] [address] February, [facility] [address] [id number] [place] [address] February, [facility] [address] [id number] [place] [address] February, [facility] [address] [facility] [id number] [place] [address] Dec, [facility] [address] [id number] [place] [address] Dec, [facility] [address] [id number] [place] [address] Dec, [facility] [address] [facility] [id number] [place] [address] Dec, [facility] [address] [facility] [id number] [place] [address] Nov, [facility] [place] [facility] [address] [id number] [place] [address] Nov, [facility] [address] [facility] [id number] [place] [address] Nov, [facility] [address] [facility] [id number] [place] [address] Nov, [facility] [address] [facility] [id number] [place] [address]46 Nov, [facility] [place] [facility] [address] [id number] [place] [address] Oct, [facility] [address] [id number] [place] [address] Oct, [facility] [address] [id number] [place] [address] Oct, [facility] [address] [facility] [id number] [place] [address] Aug, [facility] [address] [id number] [place] [address] Aug, [facility] [address] [id number] [place] [address] Jul, [facility] [place] [address] [id number] [place] [address] Jul, [facility] [address] [id number] [place] [address] Jul, [facility] [address] [id number] [place] [address] Jul, [facility] [place] [facility] [address] [id number] [place] [address] Jul, [facility] [address] [id number] [place] [address] Jul, [facility] [address] [id number] [place] [address] Jul, [facility] [place] [facility] [address] [id number] [place] [address] Jul, [facility] [place] [facility] [address] [id number] [place] [address] May, [facility] [address] [id number] [place] [address] February, [facility] [address] [id number] [place] [address] Nov, [facility] [address] [id number] [place] [address] Sep, [facility] [address] [id number] [place] [address] Aug, [facility] [address] [id number] [place] [address] 14 Oct, 2009 [facility] [address] [id number] [place] [address] Jul, [facility] [address] [facility] [id number] [place] [address] Jun, [facility] [address] [facility] [id number], [place] [address] Mar, [facility] [address] [facility] [id number] [place] [address] Mar, [facility] [address] [facility] [id number], [place] [address] Nov, IMMUNIZATIONS No Known Immunizations SOCIAL HISTORY Never Assessed REASON FOR VISIT FYI only PLAN OF CARE VITAL SIGNS MEDICATIONS No [...]
--- OUTSIDE RECORDS SUMMARY | 2019-01-24 07:45 | XMS REPORT ---
Author Author ARI MURRELL [facility] Address [address] [place] [address] Care Team Providers Care Commercial Account Executive Name Role Phone ARI MURRELL Unavailable PROBLEMS Type Condition ICD9-CM Code [id number] Code Onset Dates Condition Status SNOMED Code Problem Chronic kidney disease (CKD) stage G1/A1, glomerular filtration rate ( GFR) equal to or greater than 90 mL/min/1.73 square meter and albuminuria creatinine ratio less than 30 mg/g N18.1 Active 718066171 Problem Depression F32.9 Active 65362129 Problem Arthritis M19.90 Active 1434970 Problem MDD (major depressive disorder), recurrent, in partial remission F33.41 Active 03963176 Problem Generalized anxiety disorder F41.1 Active 20062761 Problem Atrial fibrillation, unspecified type I48.91 Active 95456753 Problem Anxiety F41.9 Active 06363140 Problem Gastro-esophageal reflux disease without esophagitis K21.9 Active 149322364 Problem Paroxysmal atrial fibrillation I48.0 Active 946302505 ALLERGIES Substance Reaction Event Type Date Status morphine vomiting Drug Allergy Mar, Active Adhesive Tape itching, rash Drug Allergy Mar, Active ENCOUNTERS Encounter Location Date Diagnosis [facility] [address], [place] [address] Jan, [facility] [address], [place] [address] 8975 Dec, Arthritis M19.90 [facility] [id number] [place] [address] 93781- 6303 Dec, [facility] [id number] [place] [address] 75559- 0770 Nov, Arthritis M19.90 ; Chronic kidney disease (CKD) stage G1/A1 , glomerular filtration rate (GFR) equal to or greater than 90 mL/min/1.73 square meter and albuminuria creatinine ratio less than 30 mg/g N18.1 and Anxiety F41.9 [facility] [id number] [place] [address] 68393- 3121 Nov, [facility] [id number] [place] [address] 51062- 5182 Nov, [facility] [address] [address]12- 2380 Nov, [facility] [address] [address]- 7721 Nov, [facility] [address] 86806- 6666 Nov, [facility] [id number] [place] [address] 37682- 0881 Oct, Generalized anxiety disorder F41.1 [facility] [id number] [place] [address] 83918- 5081 Sep, Atrial fibrillation, unspecified type I48.91 [facility] [id number] [place] [address] 75266- 4044 Sep, Generalized anxiety disorder F41.1 and MDD (major depressive disorder), recurrent, in partial remission F33.41 [place] [id number] [place] [address] 43123- 6199 Sep, [facility] [id number] [place] [address] 09078- 5132 Aug, Generalized anxiety disorder F41.1 [facility] [id number] [place] [address] 98813- 3878 Aug, [facility] [id number] [place] [address] 48749- 9909 Aug, Paroxysmal atrial fibrillation I48.0 and Gastro-esophageal reflux disease without esophagitis K21.9 [facility] [address], [place] [address] 5343 Jul, [facility] [id number] [place] [address] 97129- 7141 Jul, Generalized anxiety disorder F41.1 [facility] [address], [place] [address] 7550 Jun, Generalized anxiety disorder F41.1 and MDD (major depressive disorder), recurrent, in partial remission F33.41 [facility] [address], [place] [address] 0520 May, Recurrent major depressive disorder, in partial remission F33.41 [facility] [id number] [place] [address] 28299- 6429 May, Anxiety F41.9 and Paroxysmal atrial fibrillation I48.0 [facility] [id number] [place] [address] 75036- 1493 Apr, Generalized anxiety disorder F41.1 [facility] [address], [place] [address]- 6320 Mar, [facility] [id number] [place] [address] 13568- 1893 Mar, Generalized anxiety disorder F41.1 and MDD (major depressive disorder), recurrent, in partial remission F33.41 [facility] [address], [place] [address] 6504 February, Paroxysmal atrial fibrillation I48.0 and Anxiety F41.9 [facility] [address], [place] [address] 8081 February, MDD (major depressive disorder), recurrent, in partial remission F33.41 [facility] [address], [place] [address]- 5727 Jan, [facility] [address] [place] [address] Jan, [facility] [address], [place] [address]- 6420 Jan, [facility] [id number] [place] [address] 51662- 5025 Jan, [facility] [id number] [place] [address] 78596- 5860 31 Dec, 2016 [facility] [id number] [place] [address] 68451- 1665 Dec, Generalized anxiety disorder F41.1 [facility] [id number] [place] [address] 46291- 1664 Dec, Generalized anxiety disorder F41.1 and MDD (major depressive disorder), recurrent, in partial remission F33.41 [facility] [id number] [place] [address] 98693- 0163 15 Dec, 2016 [facility] [id number] [place] [address] 19811- 8333 14 Dec, 2016 [facility] [id number] [place] [address] 80618- 4296 07 Dec, 2016 [facility] [id number] [place] [address] 42337- 7913 28 Nov, 2016 [facility] [id number] [place] [address] 42203- 9312 27 Nov, 2016 Gastro-esophageal reflux disease without esophagitis K21.9 [facility] [address] [place] [address] 64581- 5691 10 Nov, 2016 Atrial fibrillation, unspecified type I48.91 and Anxiety F41.9 [facility] [id number] [place] [address] 21445- 0899 Oct, [facility] [id number] [place] [address] 86671- 9554 Oct, [facility] [id number] [place] [address] 26554- 2614 Oct, Depression F32.9 and Atrial fibrillation, unspecified type I48.91 [facility] [id number] [place] [address] 12149- 9604 Oct, [facility] [id number] [place] [address] 63913- 9080 Sep, Depression F32.9 [facility] [id number] [place] [address] 06695- 2079 Sep, Recurrent major depressive disorder, in partial remission F33.41 and Generalized anxiety disorder F41.1 [facility] [id number] [place] [address] 60462- 9506 Sep, Paroxysmal atrial fibrillation I48.0 and Anxiety F41.9 [facility] [id number] [place] [address] 42963- 5751 Sep, [facility] [id number] [place] [address] 24789- 3750 Sep, [facility] [id number] [place] [address] 50980- 6045 Sep, Gastro-esophageal reflux disease without esophagitis K21.9 [facility] [id number] [place] [address] 83849- 3353 Aug, [facility] [id number] [place] [address] 16320- 5714 Aug, [facility] [id number] [place] [address] 98467- 8290 Aug, Atrial fibrillation, unspecified type I48.91 [facility] [id number] [place] [address] 34054- 3939 Jul, Major depressive disorder, recurrent, in partial remission F33.41 and Generalized anxiety disorder F41.1 [facility] [address] [place] [address] 43735- 6753 Jul, [facility] [id number] [place] [address] 20648- 6827 30 Jun, 2016 [facility] [id number] [place] [address] 55319- 0017 15 Jun, 2016 Bronchitis J40 and Memory loss R41.3 [facility] [id number] [place] [address] 10383- 4905 14 Jun, 2016 Upper respiratory infection with cough and congestion J06.9 [facility] [address] 79681- 3283 Apr, [facility] [id number] [place] [address] 57591- 7297 Apr, Major depressive disorder, recurrent, unspecified F33.9 ; Anxiety F41.9 and Psychophysiological insomnia F51.04 [facility] [id number] [place] [address] 54725- 1099 Mar, [facility] [id number] [place] [address] 85540- 1746 Mar, [facility] [id number] [place] [address] 20795- 7464 February, [facility] [id number] [place] [address] 83535- 8541 Jan, Postural hypotension I95.1 [facility] [id number] [place] [address] 56156- 0578 Jan, Recurrent major depressive disorder in remission F33.40 ; Generalized anxiety disorder F41.1 and Psychophysiological insomnia F51.04 [facility] [id number] [place] [address] 98547- 3776 14 Dec, 2015 Generalized anxiety disorder F41.1 [facility] [id number] [place] [address] 13102 -3697 Dec, Unspecified fall, initial encounter W19.XXXA [facility] [id number] [place] [address] 08463- 2993 05 Nov, 2015 Depression F32.9 and Anxiety F41.9 [facility] [address] 87359- 7381 Oct, [facility] [address] 45952- 2552 Oct, [facility] [address] 27337- 5787 Oct, Chronic kidney disease, stage 3 (moderate) N18.3 [facility] [address] 07443- 5463 Oct, Head contusion S00.93XA ; Cervical strain S16.1XXA and Arthritis M19.90 [facility] [address] 54405- 7917 Oct, Chronic kidney disease 585.9 [facility] [address] 67964- 3672 Oct, Chronic kidney disease 585.9 [facility] [address] 02481- 2615 Oct, [facility] [address] 82089- 4356 Sep, [facility] [address] 43403- 3415 Aug, Chronic kidney disease N18.9 [facility] [address] 56211- 8252 Aug, Chronic kidney disease (CKD) stage G1/A1, glomerular filtration rate (GFR) equal to or greater than 90 mL/min/1.73 square meter and albuminuria creatinine ratio less than 30 mg/g N18.1 and GERD (gastroesophageal reflux disease) K21.9 [facility] [id number] [place] [address] 79212- 9220 Aug, [facility] [address] 51782- 8143 Jun, Generalized anxiety disorder 300.02 ; Major depression, recurrent 296.30 and Persistent 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 [facility] [id number] [place] [address] 03584- 3781 Jun, [facility] [id number] [place] [address] 28129- 7701 May, [facility] [id number] [place] [address] 56447- 8115 May, Generalized anxiety disorder 300.02 and Depression, major, recurrent, in remission 296.35 [facility] [id number] [place] [address] 79331- 8323 May, [facility] [id number] [place] [address] 84913- 3469 May, [facility] [id number] [place] [address] 17820- 6254 May, [facility] [id number] [place] [address] 48297- 6021 May, [facility] [id number] [place] [address] 83915- 0909 May, Chronic kidney disease 585.9 [facility] [address] [place] [address] 56560- 7945 Apr, Chronic kidney disease 585.9 [facility] [address] [place] [address] 52002- 4556 Apr, [facility] [address] [place] [address] 70323- 5435 Apr, Arthropathy 716.90 ; Hyperlipidemia 272.4 ; Hypothyroidism 244.9 and GERD (gastroesophageal reflux disease) 530.81 [facility] [address] 4489 Apr, Arthropathy 716.90 ; Hypothyroidism 244.9 ; Hyperlipidemia 272.4 and GERD (gastroesophageal reflux disease) 530.81 [facility] [address] [facility] [id number] [address]- 6544 Mar, [facility] [address] 8580 February, Depression, major, recurrent, in remission 296.35 and Generalized anxiety disorder 300.02 [facility] [address], [place] [address]- 9296 February, [facility] [address] [facility] [id number] [address]- 9589 February, [facility] [address] [place] [address]- 6660 Jan, [facility] [address], [place] [address]- 4750 Jan, [facility] [address], [place] [address]- 8530 Oct, [facility] [address], [place] [address]- 7575 Oct, [facility] [address] [place] [address]- 3542 Oct, [facility] [address], [place] [address]- 0370 Oct, [facility] [address] [place] [id number] [place] [address]- 8671 Oct, [facility] [id number] [address]- 8699 Oct, [facility] [id number], [place] [address]- 9947 Sep, [facility] [address], [place] [address]- 4226 Sep, [facility] [id number] [address]- 6609 Aug, [facility] [place] [facility] [address] [id number] [place] [address]- 0194 Aug, [facility] [place] [facility] [address] [id number] [place] [address]- 3109 Aug, [facility] [place] [facility] [address] [id number] [place] [address]- 9783 Aug, [facility] [place] [facility] [address] [id number] [place] [address]- 2745 Jul, [facility] [place] [facility] [address] [id number] [place] [address]- 8152 Jul, [facility] [place] [facility] [address] [id number] [place] [address]- 3475 Jul, [facility] [place] [facility] [address] [id number] [place] [address]- 9218 Jul, [facility] [place] [facility] [address] [id number] [place] [address]- 0544 29 Jun, 2014 [facility] [place] [facility] [address] [id number] [place] [address]- 3109 Jun, [facility] [place] [facility] [address] [id number] [place] [address]- 5045 22 Jun, 2014 [facility] [place] [facility] [address] [id number] [place] [address]- 4660 10 Jun, 2014 [facility] [place] [facility] [address] [id number] [place] [address]- 6069 Jun, [facility] [place] [facility] [address] [id number] [place] [address]- 2547 10 Jun, 2014 [facility] [place] [facility] [address] [id number] [place] [address]- 254 Jun, [facility] [place] [facility] [address] [id number] [place] [address]- 4055 May, [facility] [place] [facility] [address] [id number] [place] [address]- 4812 May, [facility] [place] [facility] [address] [id number] [place] [address]- 2506 May, [facility] [place] [facility] [address] [id number] [place] [address]- 6475 May, [facility] [place] [facility] [address] [id number] [place] [address]- 2240 Apr, [facility] [place] [facility] [address] [id number] [place] [address]- 2789 Apr, [facility] [place] [facility] [address] [id number] [place] [address]- 6409 Apr, [facility] [place] [facility] [address] [id number] [place] [address]- 2870 Apr, [facility] [place] [facility] [address] [id number] [place] [address]- 3500 Apr, [facility] [place] [facility] [address] [id number] [place] [address]- 1935 Apr, [facility] [place] [facility] [address] [id number] [place] [address]- 1795 Apr, [facility] [place] [facility] [address] [id number] [place] [address]- 6865 Apr, [facility] [place] [facility] [address] [id number] [place] [address]- 1574 Mar, [facility] [place] [facility] [address] [id number] [place] [address]- 2577 Mar, [facility] [place] [facility] [address] [id number] [place] [address]- 6930 Mar, [facility] [place] [facility] [address] [id number] [place] [address]- 9548 Mar, [facility] [place] [facility] [address] [id number] [place] [address]- 0641 Mar, [facility] [place] [facility] [address] [id number] [place] [address]- 1520 24 Mar, 2014 [facility] [place] [facility] [address] [id number] [place] [address]- 4897 Mar, [facility] [place] [facility] [address] [id number] [place] [address]- 6189 Mar, [facility] [place] [facility] [address] [id number] [place] [address]- 3245 Dec, [facility] [place] [facility] [address] [id number] [place] [address]- 7364 Dec, [facility] [place] [facility] [address] [id number] [place] 6294 Dec, [facility] [place] [facility] [address] [id number] [place] 6786 Dec, [facility] [place] [facility] [address] [id number] [place] [address]- 4412 Dec, [facility] [place] [facility] [address] [id number] [place] [address]- 7990 Dec, [facility] [place] [facility] [address] [id number] [place] [address]- 9125 Dec, [facility] [place] [facility] [address] [id number] [place] [address]- 2284 Dec, [facility] [place] [facility] [address] [id number] [place] [address]- 3488 Nov, [facility] [place] [facility] [address] [id number] [place] [address]- 9927 Nov, [facility] [place] [facility] [address] [id number] [place] [address]- 2776 Nov, [facility] [place] [facility] [address] [id number] [place] [address]- 4876 17 Nov, 2013 [facility] [place] [facility] [address] [id number] [place] [address]- 9923 Nov, [facility] [place] [facility] [address] [id number] [place] [address]- 5252 Nov, [facility] [place] [facility] [address] [id number] [place] [address]- 9959 Nov, [facility] [place] [facility] [address] [facility] [id number] [place] [address]- 3576 Nov, [facility] [place] [facility] [address] [id number] [place] [address]- 9051 Aug, [facility] [place] [facility] [address] [id number] [place] [address]- 0639 Aug, [facility] [place] [facility] [address] [id number] [place] [address]- 6552 Jul, [facility] [place] [facility] [address] [id number] [place] [address]- 0808 Jul, [facility] [place] [facility] [address] [id number] [place] [address]- 4934 Jul, [facility] [place] [facility] [address] [id number] [place] [address]- 9463 Jun, [facility] [place] [facility] [address] [id number] [place] [address]- 2625 30 Jun, 2013 [facility] [place] [facility] [address] [id number] [place] [address]- 7644 24 Jun, 2013 [facility] [place] [facility] [address] [id number] [place] [address]- 3905 Jun, [facility] [place] [facility] [address] [id number] [place] [address] Jun, [facility] [place] [facility] [address] [id number] [place] [address] May, [facility] [place] [facility] [address] [id number] [place] [address] Apr, [facility] [place] [facility] [address] [id number] [place] [address] Apr, [facility] [address] [id number] [place] [address] Apr, [facility] [address] [id number] [place] [address] Mar, [facility] [address] [id number] [place] [address] Mar, [facility] [address] [id number] [place] [address] February, [facility] [address] [id number] [place] [address] February, [facility] [address] [id number] [place] [address] February, [facility] [address] [id number] [place] [address] February, [facility] [address] [id number] [place] [address] Jan, [facility] [address] [id number] [place] [address] Jan, [facility] [address] [id number] [place] [address] Jan, [facility] [address] [id number] [place] [address] Jan, [facility] [address] [id number] [place] [address] Dec, [facility] [address] [id number] [place] [address] 13 Dec, 2012 [facility] [address] [id number] [place] [address] Dec, [facility] [address] [id number] [place] [address] Nov, [facility] [address] [id number] [place] [address] Nov, [facility] [place] [facility] [address] [id number] [place] [address] Nov, [facility] [place] [facility] [address] [id number] [place] [address] Oct, [facility] [place] [facility] [address] [id number] [place] [address] Oct, [facility] [address] [id number] [place] [address] Sep, [facility] [place] [facility] [address] [id number] [place] [address] Sep, [facility] [place] [facility] [address] [id number] [place] [address] Sep, [facility] [place] [facility] [address] [id number] [place] [address] Sep, [facility] [place] [facility] [address] [id number] [place] [address] Sep, [facility] [place] [facility] [address] [address] [id number] [place] [address] Aug, [facility] [place] [facility] [address] [id number] [place] [address] Aug, [facility] [place] [facility] [address] [id number], [place] [address] Aug, [facility] [place] [facility] [address] [id number] [place] [address] Aug, [facility] [place] [facility] [address] [id number], [place] [address] Aug, [facility] [place] [facility] [address] [id number] [place] [address] Aug, [facility] [place] [facility] [address] [id number] [place] [address] 20 Jun, 2012 [facility] [place] [facility] [address] [id number] [place] [address] Jun, [facility] [place] [facility] [address] [id number] [place] [address] Jun, [facility] [place] [facility] [address] [id number] [place] [address] May, [facility] [place] [facility] [address] [id number] [place] [address] May, [facility] [place] [facility] [address] [id number] [place] [address] May, [facility] [place] [facility] [address] [id number] [place] [address] May, [facility] [place] [facility] [address] [id number] [place] [address] Apr, [facility] [place] [facility] [address] [id number] [place] [address] Mar, [facility] [place] [facility] [address] [id number] [place] [address] Mar, [facility] [place] [facility] [address] [id number] [place] [address] Mar, [facility] [place] [facility] [address] [id number] [place] [address] February, [facility] [place] [facility] [address] [id number] [place] [address] February, [facility] [place] [facility] [address] [id number] [place] [address] February, [facility] [place] [facility] [address] [id number] [place] [address] 140[address] February, [facility] [place] [facility] [address] [id number] [place] [address] Dec, [facility] [place] [facility] [address] [id number] [place] [address] Dec, [facility] [place] [facility] [address] [id number] [place] [address] Dec, [facility] [place] [facility] [address] [id number] [place] [address] Dec, [facility] [place] [facility] [address] [id number] [place] [address] Nov, [facility] [place] [facility] [address] [id number] [place] [address] Nov, [facility] [place] [facility] [address] [id number] [place] [address] Nov, [facility] [place] [facility] [address] [facility] [id number] [place] [address] Nov, [facility] [place] [facility] [address] [id number] [place] [address] Nov, [facility] [place] [facility] [address] [id number] [place] [address] Oct, [facility] [place] [facility] [address] [facility] [id number] [place] [address] Oct, [facility] [place] [facility] [address] [facility] [id number] [place] [address] Oct, [facility] [place] [facility] [address] [id number], [place] [address] Aug, [facility] [place] [facility] [address] [id number] [place] [address] Aug, [facility] [place] [facility] [address] [id number] [place] [address] Jul, [facility] [place] [facility] [address] [id number], [place] [address] Jul, [facility] [place] [facility] [address] [id number], [place] [address] Jul, [facility] [place] [facility] [address] [id number] [place] [address] Jul, [facility] [place] [facility] [address] [id number] [place] [address] 18 Jul, 2011 [facility] [place] [facility] [address] [id number] [place] [address] 17 Jul, 2011 [facility] [place] [facility] [address] [id number] [place] [address] Jul, [facility] [place] [facility] [address] [id number] [place] [address] Jul, [facility] [place] [facility] [address] [id number] [place] [address] May, [facility] [place] [facility] [address] [id number] [place] [address] February, [facility] [place] [facility] [address] [id number] [place] [address] Nov, [facility] [place] [facility] [address] [facility] [id number] [place] [address] Sep, [facility] [place] [facility] [address] [id number] [place] [address] Aug, [facility] [place] [facility] [address] [id number] [place] [address] 14 Oct, 2009 [facility] [place] [facility] [address] [id number] [place] [address] Jul, [facility] [place] [facility] [address] [id number] [place] [address] Jun, [facility] [place] [facility] [address] [id number] [place] [address]- [address] 16 Mar, 2009 [facility] [place] [facility] [address] [id number] [place] [address] 11 Mar, 2009 [facility] [place] [facility] [address] [facility] [id number] [place] [address] Nov, IMMUNIZATIONS No Known Immunizations SOCIAL HISTORY Never Assessed REASON FOR VISIT intake - Sheridan LOPES, Needs to sign a [facility] PLAN OF CARE Activity Details Follow Up 3 Months Reason:med f/u VITAL SIGNS Height 66 in 2017-04-12 Weight 128.7 lbs 2017-04-12 Heart Rate 48 bpm 2017-04-12 Respiratory Rate 18 2017-04-12 BMI 20.77 kg/m2 2017-04-12 Blood pressure systolic 100 mmHg 2017-04-12 Blood pressure diastolic 47 mmHg 2017-04-12 MEDICATIONS Medication Instructions Dosage Frequency Start Date End Date Duration Status Alprazolam 2 MG Orally 3 times a day 1 tablet 8h Active Toprol XL 25 MG Orally Once a day 1 tablet 24h Active Docusate Sodium 50 MG Orally 2 times a day 1 capsule as needed 12h Active Aspir-Low 81 MG Orally Once a day 1 tablet 24h Active Lasix 40 MG Orally Once a day 1 tablet 24h Active BuPROPion HCl ER (XL) 300 MG Orally Once a day TAKE ONE TABLET BY MOUTH ONCE DAILY 24h Active Metoclopramide HCl 5MG Orally 3 times a day 1 tablet 8h 90 days Active Iron (Ferrous Gluconate) 256 (28 Fe) [...] 1 tablet 24h Apr, Active Omeprazole 20 mg Orally Once a day 1 capsule 24h Apr, 90 days Active Eliquis 2.5 MG Orally 2 times a day 1 tablet 12h Active RESULTS No Results PROCEDURES No Known [...]
--- OUTSIDE RECORDS SUMMARY | 2019-01-24 07:46 | XMS REPORT ---
Author Author FRANCESCO PHILLIPS [facility] Address [address] [place] [address] Care Team Providers Care Sociology Professor Name Role Phone FRANCESCO PHILLIPS Unavailable PROBLEMS Type Condition ICD9-CM Code IVI56-CN Code Onset Dates Condition Status SNOMED Code Problem Paroxysmal atrial fibrillation I48.0 Active 948796797 Problem Generalized anxiety disorder F41.1 Active 46822469 Problem Gastro-esophageal reflux disease without esophagitis K21.9 Active 357524357 Problem Chronic kidney disease, stage 1 N18.1 Active 639692211 Problem Secondary hyperparathyroidism of renal origin N25.81 Active 78459497 Problem 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 Active 861627842 Problem MDD (major depressive disorder), recurrent, in partial remission F33.41 Active 06518783 Problem Acquired hypothyroidism E03.9 Active 598284502 Problem Chronic diastolic heart failure I50.32 Active 306588248 Problem Arthritis M19.90 Active 9858542 Problem Depression F32.9 Active 98983239 Problem Anxiety F41.9 Active 01044783 Problem Chronic kidney disease (CKD) stage G1/A1, glomerular filtration rate ( GFR) equal to or greater than 90 mL/min/1.73 square meter and albuminuria creatinine ratio less than 30 mg/g N18.1 Active 222802703 Problem Atrial fibrillation, unspecified type I48.91 Active 96808716 ALLERGIES No Information ENCOUNTERS Encounter Location Date Diagnosis [facility] [address] [facility] [id number] [address] Mar, Pain, dental K08.89 [facility] [address] [facility] [id number], [place] [address] February, Medicare annual wellness visit, initial Z00.00 ; MDD (major depressive disorder), recurrent, in partial remission F33.41 ; Atrial fibrillation, unspecified type I48.91 ; Chronic diastolic heart failure I50.32 ; Secondary hyperparathyroidism of renal origin N25.81 ; Acquired hypothyroidism E03.9 ; Anxiety F41.9 ; Chronic kidney disease, stage 1 N18.1 and Encounter for immunization Z23 [place] [address] [address] February, Closed fracture of one rib of right side, initial encounter S22.31XA ; Acute cystitis with hematuria N30.01 ; Right flank pain R10.9 and Rib pain on right side R07.81 [place] [address] [address] Jan, Acquired hypothyroidism E03.9 ; 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 ; Chronic kidney disease (CKD) stage G1/A1, glomerular filtration rate (GFR) equal to or greater than 90 mL/min/1.73 square meter and albuminuria creatinine ratio less than 30 mg/g N18.1 ; Paroxysmal atrial fibrillation I48.0 ; Chronic diastolic heart failure I50.32 and Secondary hyperparathyroidism of renal origin N25.81 [place] [address] [address] Jan, Arthritis M19.90 [place] [address] [address]- [address] Jan, Paroxysmal atrial fibrillation I48.0 [place] [address] [address]- 89[address] Jan, Paroxysmal atrial fibrillation I48.0 [place] [address] 75876- 8020 Jan, [place] [address] [address]32- 5[address] Jan, Generalized anxiety disorder F41.1 [place] [address] [address]- 6[address] Jan, Generalized anxiety disorder F41.1 and MDD (major depressive disorder), recurrent, in partial remission F33.[address] [place] [address] Dec, Arthritis M19.90 [facility] [address] [place] [id number] [place] [address] 24180- 3568 Dec, [facility] [address] [place] [id number] [place] [address] 21942- 8576 Nov, Arthritis M19.90 ; Chronic kidney disease (CKD) stage G1/A1 , glomerular filtration rate (GFR) equal to or greater than 90 mL/min/1.73 square meter and albuminuria creatinine ratio less than 30 mg/g N18.1 and Anxiety F41.9 [place] [address] [place] [id number] [place] [address] 04717- 2114 Nov, [facility] [address] [address]- 279[address] Nov, [facility] [address] [address]378- 6706 Nov, [facility] [address] [place] [id number] [place] [address] 99240- 3937 Nov, [facility] [address] [place] [id number] [place] [address] 49970- 1016 Nov, [facility] [address] [place] [id number] [place] [address] 35616- 3962 Oct, Generalized anxiety disorder F41.1 [facility] [address] [place] [id number] [place] [address] 89660- 4017 Sep, Atrial fibrillation, unspecified type I48.91 [facility] [address] [place] [id number] [place] [address] 50578- 0070 Sep, Generalized anxiety disorder F41.1 and MDD (major depressive disorder), recurrent, in partial remission F33.41 [place] [address] [place] [id number] [place] [address] 77303- 9076 Sep, [facility] [address] [place] [id number] [place] [address] 27364- 2964 Aug, Generalized anxiety disorder F41.1 [facility] [id number] [place] [address] 24099- 2138 Aug, [facility] [address] [place] [id number] [place] [address] 61977- 4463 Aug, Paroxysmal atrial fibrillation I48.0 and Gastro-esophageal reflux disease without esophagitis K21.9 [facility] [address] [place] [id number] [place] [address] 64237- 3551 Jul, [facility] [address] [place] [id number] [place] [address] 50328- 7475 Jul, Generalized anxiety disorder F41.1 [place] [address] [place] [id number] [place] [address] 22331- 3075 Jun, Generalized anxiety disorder F41.1 and MDD (major depressive disorder), recurrent, in partial remission F33.41 [facility] [address] [place] [id number] [place] [address] 76055- 0913 May, Recurrent major depressive disorder, in partial remission F33.41 [facility] [address] [place] [id number] [place] [address] 84555- 1600 May, Anxiety F41.9 and Paroxysmal atrial fibrillation I48.0 [place] [address] [place] [address] 84615- 7159 Apr, Generalized anxiety disorder F41.1 [facility] [address] [place] [address] 05461- 1023 Mar, [facility] [address] [place] [address] 33025- 4437 Mar, Generalized anxiety disorder F41.1 and MDD (major depressive disorder), recurrent, in partial remission F33.41 [facility] [address] [place] [address] 96494- 5119 February, Paroxysmal atrial fibrillation I48.0 and Anxiety F41.9 [facility] [address] [id number] [address] February, MDD (major depressive disorder), recurrent, in partial remission F33.41 [facility] [address], [place] [address] Jan, [facility] [address] [place] [address] Jan, [facility] [address] [place] [id number] [place] [address] 72346- 1751 Jan, [facility] [address] [place] [address] 02011- 0706 Jan, [facility] [address] [place] [id number] [place] [address] 53743- 1746 Dec, [facility] [address] [place] [id number] [place] [address] 62589- 0224 Dec, Generalized anxiety disorder F41.1 [facility] [address] [place] [id number] [place] [address] 42242- 4570 Dec, Generalized anxiety disorder F41.1 and MDD (major depressive disorder), recurrent, in partial remission F33.41 [facility] [address], [place] [address] 9123 Dec, [facility] [address], [place] [address]- 1685 Dec, [facility] [address], [place] [address]- 0695 Dec, [facility] [address], [place] [address]- 3259 Nov, [facility] [address] [place] [id number] [place] [address] 87176- 8021 Nov, Gastro-esophageal reflux disease without esophagitis K21.9 [facility] [address], [place] [address] 7766 Nov, Atrial fibrillation, unspecified type I48.91 and Anxiety F41.9 [facility] [address] [place] [id number] [place] [address] 92364- 3962 Oct, [facility] [address] [place] [id number] [place] [address] 52354- 1424 Oct, [facility] [address] [place] [id number] [place] [address] 63661- 3115 Oct, Depression F32.9 and Atrial fibrillation, unspecified type I48.91 [facility] [address] [place] [id number] [place] [address] 81423- 8409 Oct, [facility] [address] [place] [id number] [place] [address] 14941- 7673 Sep, Depression F32.9 [facility] [address] [place] [id number] [place] [address] 18772- 9112 Sep, Recurrent major depressive disorder, in partial remission F33.41 and Generalized anxiety disorder F41.1 [place] [address] [place] [id number] [place] [address] 31134- 5186 Sep, Paroxysmal atrial fibrillation I48.0 and Anxiety F41.9 [facility] [address] [place] [id number] [place] [address] 86362- 9594 Sep, [facility] [address] [place] [id number] [place] [address] 92809- 8305 Sep, [facility] [address] [place] [id number] [place] [address] 02342- 1720 Sep, Gastro-esophageal reflux disease without esophagitis K21.9 [facility] [address] [place] [id number] [place] [address] 76940- 5402 Aug, [facility] [address] [place] [id number] [place] [address] 58262- 7239 Aug, [facility] [address] [place] [id number] [place] [address] 60663- 8340 Aug, Atrial fibrillation, unspecified type I48.91 [place] [address] [place] [address] 26544- 4008 Jul, Major depressive disorder, recurrent, in partial remission F33.41 and Generalized anxiety disorder F41.1 [place] [address] [place] [id number] [place] [address] 41736- 7096 Jul, [place] [address] [place] [id number] [place] [address] 95468- 0108 30 Jun, 2016 [place] [address] [place] [id number] [place] [address] 88500- 7204 15 Jun, 2016 Bronchitis J40 and Memory loss R41.3 [place] [address] [place] [id number] [place] [address] 97231- 7326 14 Jun, 2016 Upper respiratory infection with cough and congestion J06.9 [place] [address] [place] [id number] [place] [address] 11484- 0239 Apr, [place] [address] [place] [id number] [place] [address] 86858- 5523 Apr, Major depressive disorder, recurrent, unspecified F33.9 ; Anxiety F41.9 and Psychophysiological insomnia F51.04 [place] [address] [place] [id number] [place] [address] 33156- 5218 Mar, [place] [address] [place] [id number] [place] [address] 81866- 7551 Mar, [place] [address] [place] [id number] [place] [address] 90251- 5910 February, [place] [address] [place] [id number] [place] [address] 17338- 0845 Jan, Postural hypotension I95.1 [facility] [address] [place] [address] 49652- 1840 14 Jan, 2016 Recurrent major depressive disorder in remission F33.40 ; Generalized anxiety disorder F41.1 and Psychophysiological insomnia F51.04 [place] [address] [place] [address] 19295- 6679 14 Dec, 2015 Generalized anxiety disorder F41.1 [facility] [address] [place] [id number] [place] [address] 70983 -5430 11 Dec, 2015 Unspecified fall, initial encounter W19.XXXA [facility] [address] [place] [id number] [place] [address] 41565- 6850 Nov, Depression F32.9 and Anxiety F41.9 [facility] [address] [place] [id number] [place] [address] 82474- 6532 Oct, [place] [address] 10743- 4593 Oct, [facility] [address] [place] [id number] [place] [address] 13989- 4398 Oct, Chronic kidney disease, stage 3 (moderate) N18.3 [place] [address] [place] [id number] [place] [address] 77973- 1348 Oct, Head contusion S00.93XA ; Cervical strain S16.1XXA and Arthritis M19.90 [place] [address] [place] [id number] [place] [address] 39217- 3501 Oct, Chronic kidney disease 585.9 [place] [address] [place] [id number] [place] [address] 55728- 6627 Oct, Chronic kidney disease 585.9 [place] [address] [place] [id number] [place] [address] 06394- 2384 Oct, [place] [address] [place] [id number] [place] [address] 86337- 2309 Sep, [place] [address] [place] [id number] [place] [address] 84800- 4625 Aug, Chronic kidney disease N18.9 [place] [address] [place] [id number] [place] [address] 79986- 7016 Aug, Chronic kidney disease (CKD) stage G1/A1, glomerular filtration rate (GFR) equal to or greater than 90 mL/min/1.73 square meter and albuminuria creatinine ratio less than 30 mg/g N18.1 and GERD (gastroesophageal reflux disease) K21.9 [facility] [address] [place] [id number] [place] [address] 31991- 2954 Aug, [facility] [address] 08787- 1053 Jun, Generalized anxiety disorder 300.02 ; Major depression, recurrent 296.30 and Persistent 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 [facility] [address] 71149- 9019 Jun, [facility] [address] 82345- 4133 May, [facility] [address] 60388- 5304 May, Generalized anxiety disorder 300.02 and Depression, major, recurrent, in remission 296.35 [facility] [address] [place] [id number] [place] [address] 02109- 3087 May, [facility] [address] 63202- 9466 May, [facility] [address] [place] [id number] [place] [address] 52135- 9028 May, [facility] [address] [place] [id number] [place] [address] 91404- 4384 May, [facility] [address] [place] [id number] [place] [address] 24498- 3958 May, Chronic kidney disease 585.9 [facility] [address] 99939- 4099 Apr, Chronic kidney disease 585.9 [facility] [address] [place] [id number] [place] [address] 30913- 7452 Apr, [facility] [address] [place] [id number] [address]- 2158 Apr, Arthropathy 716.90 ; Hyperlipidemia 272.4 ; Hypothyroidism 244.9 and GERD (gastroesophageal reflux disease) 530.81 [facility] [address] [place] [id number] [place] [address] 15891- 5375 Apr, Arthropathy 716.90 ; Hypothyroidism 244.9 ; Hyperlipidemia 272.4 and GERD (gastroesophageal reflux disease) 530.81 [facility] [address] [place] [id number] [place] [address] 17058- 4980 17 Mar, 2015 [facility] [address] 244864- 5194 February, Depression, major, recurrent, in remission 296.35 and Generalized anxiety disorder 300.02 [facility] [address] [place] [id number] [place] [address] 17989- 6623 February, [facility] [address] [place] [id number] [place] [address] 00578- 7343 February, [facility] [address] [place] [id number] [place] [address] 24742- 3906 Jan, [facility] [address] [place] [id number] [place] [address] 64338- 5527 Jan, [facility] [address] [place] [id number] [place] [address] 52011- 4827 Oct, [facility] [address] [place] [id number] [place] [address] 24120- 1085 Oct, [facility] [address] [place] [id number] [place] [address] 71952- 6145 Oct, [facility] [address] [place] [id number] [place] [address] 41294- 7802 Oct, [facility] [address] [place] [id number] [place] [address] 380876- 6989 Oct, [facility] [address] [place] [id number] [place] [address] 98040- 8342 Oct, [facility] [place] [facility] [address] [id number] [place] [address]- 8726 Sep, [facility] [place] [facility] [address] [id number] [place] [address]- 0615 Sep, [facility] [place] [facility] [address] [id number] [place] [address]- 3536 Aug, [facility] [place] [facility] [address] [id number] [place] [address]- 2467 Aug, [facility] [place] [facility] [address] [id number] [place] [address]- 2070 Aug, [facility] [place] [facility] [address] [id number] [place] [address]- 4692 Aug, [facility] [place] [facility] [address] [id number] [place] [address]- 5007 Jul, [facility] [place] [facility] [address] [id number] [place] [address]- 6354 Jul, [facility] [place] [facility] [address] [id number] [place] [address]- 0036 Jul, [facility] [place] [facility] [address] [id number] [place] [address]- 0292 Jul, [facility] [place] [facility] [address] [id number], [place] [address]- 9276 29 Jun, 2014 [facility] [place] [facility] [address] [id number] [place] [address]- 4990 22 Jun, 2014 [facility] [place] [facility] [address] [id number] [place] [address]- 3861 22 Jun, 2014 [facility] [place] [facility] [address] [id number] [place] [address]- 4156 10 Jun, 2014 [facility] [place] [facility] [address] [id number] [place] [address]- 8908 10 Jun, 2014 [facility] [place] [facility] [address] [id number] [place] [address]- 9139 Jun, [facility] [place] [facility] [address] [id number] [place] [address]- 2160 Jun, [facility] [place] [facility] [address] [id number] [place] [address]- 0895 May, [facility] [place] [facility] [address] [id number] [place] [address]- 7888 May, [facility] [place] [facility] [address] [id number] [place] [address]- 5787 May, [facility] [place] [facility] [address] [id number] [place] [address]- 9563 May, [facility] [place] [facility] [address] [id number] [place] [address]- 6757 Apr, [facility] [place] [facility] [address] [id number] [place] [address]- 1755 Apr, [facility] [place] [facility] [address] [id number] [place] [address]- 9789 Apr, [facility] [place] [facility] [address] [id number] [place] [address]- 1650 Apr, [facility] [place] [facility] [address] [id number] [place] [address]- 8487 Apr, [facility] [place] [facility] [address] [id number] [place] [address]- 1690 Apr, [facility] [place] [facility] [address] [id number] [place] [address]- 1844 Apr, [facility] [place] [facility] [address] [id number] [place] [address]- 5132 Apr, [facility] [place] [facility] [address] [id number] [place] [address]- 0866 Mar, [facility] [place] [facility] [address] [id number] [place] 9788 Mar, [facility] [place] [facility] [address] [id number] [place] [address]- 9909 Mar, [facility] [place] [facility] [address] [id number] [place] [address]- 8727 Mar, [facility] [place] [facility] [address] [id number] [place] [address]- 3811 Mar, [facility] [place] [facility] [address] [id number] [place] [address]- 7502 Mar, [facility] [place] [facility] [address] [id number] [place] [address]- 1625 Mar, [facility] [place] [facility] [address] [id number] [place] [address]- 0170 Mar, [facility] [place] [facility] [address] [id number] [place] [address]- 1071 Dec, [facility] [place] [facility] [address] [id number] [place] [address]- 4142 Dec, [facility] [place] [facility] [address] [id number] [place] [address]- 4279 Dec, [facility] [place] [facility] [address] [id number] [place] [address]- 6828 Dec, [facility] [place] [facility] [address] [id number] [place] [address]- 1027 Dec, [facility] [place] [facility] [address] [id number] [place] [address]- 5477 Dec, [facility] [place] [facility] [address] [id number] [place] [address]- 7190 Dec, [facility] [place] [facility] [address] [id number] [place] [address]- 6417 Dec, [facility] [place] [facility] [address] [id number] [place] [address]- 4199 Nov, [facility] [place] [facility] [address] [id number] [place] [address]- 8034 26 Nov, 2013 [facility] [place] [facility] [address] [id number] [place] [address]- 6606 Nov, 2013 [facility] [place] [facility] [address] [id number] [place] [address] 2546 Nov, 2013 [facility] [place] [facility] [address] [id number] [place] [address] 2546 14 Nov, 2013 [facility] [place] [facility] [address] [id number] [place] [address]- 2546 Nov, 2013 [facility] [place] [facility] [address] [id number] [place] [address]- 1613 Nov, 2013 [facility] [place] [facility] [address] [facility] [id number] [place] 9582 Nov, [facility] [place] [facility] [address] [facility] [id number] [place] [address]- 0383 Aug, [facility] [place] [facility] [address] [id number] [place] [address] Aug, [facility] [place] [facility] [address] [facility] [id number] [place] [address] 18 Jul, 2013 [facility] [place] [facility] [address] [facility] [id number] [place] [address] 18 Jul, 2013 [facility] [place] [facility] [address] [facility] [id number] [place] [address] 02 Jul, 2013 [facility] [place] [facility] [address] [id number] [place] [address] 30 Jun, 2013 [facility] [place] [facility] [address] [id number] [place] [address] 30 Jun, 2013 [facility] [place] [facility] [address] [id number] [place] [address] 24 Jun, 2013 [facility] [place] [facility] [address] [id number] [place] [address] Jun, [facility] [address] [id number] [place] [address] Jun, [facility] [place] [facility] [address] [id number] [place] [address] May, [facility] [place] [facility] [address] [id number] [place] [address] Apr, [facility] [place] [facility] [address] [id number] [place] [address] Apr, [facility] [address] [id number] [place] [address] Apr, [facility] [place] [facility] [address] [id number] [place] [address] Mar, [facility] [place] [facility] [address] [id number] [place] [address] Mar, [facility] [address] [id number] [place] [address] February, [facility] [place] [facility] [address] [id number] [place] [address] February, [facility] [place] [facility] [address] [id number] [place] [address] February, [facility] [place] [facility] [address] [id number] [place] [address] February, [facility] [place] [facility] [address] [id number] [place] [address] Jan, [facility] [place] [facility] [address] [id number] [place] [address] Jan, [facility] [place] [facility] [address] [id number] [place] [address] Jan, [facility] [place] [facility] [address] [id number] [place] [address] Jan, [facility] [place] [facility] [address] [id number] [place] [address] 20 Dec, 2012 [facility] [address] [id number] [place] [address] 13 Dec, 2012 [facility] [place] [facility] [address] [id number] [place] [address] Dec, [facility] [place] [facility] [address] [id number] [place] [address] 22 Nov, 2012 [facility] [place] [facility] [address] [id number] [place] [address] 15 Nov, 2012 [facility] [place] [facility] [address] [id number] [place] [address] Nov, [facility] [place] [facility] [address] [address] [id number] [place] [address] Oct, [facility] [address] [id number] [place] [address] Oct, [facility] [place] [facility] [address] [id number] [place] [address] Sep, [facility] [place] [facility] [address] [id number] [place] [address] Sep, [facility] [place] [facility] [address] [id number] [place] [address] Sep, [facility] [place] [facility] [address] [id number] [place] [address] Sep, [facility] [place] [facility] [address] [id number] [place] [address] Sep, [facility] [place] [facility] [address] [id number] [place] [address] Aug, [facility] [place] [facility] [address] [id number] [place] [address] Aug, [facility] [place] [facility] [address] [id number] [place] [address] Aug, [facility] [place] [facility] [address] [id number] [place] [address] Aug, [facility] [place] [facility] [address] [id number] [place] [address] Aug, [facility] [place] [facility] [address] [id number] [place] [address] Aug, [facility] [place] [facility] [address] [id number] [place] [address] Jun, [facility] [place] [facility] [address] [id number] [place] [address] Jun, [facility] [place] [facility] [address] [id number] [place] [address] Jun, [facility] [place] [facility] [address] [id number] [place] [address] May, [facility] [place] [facility] [address] [id number] [place] [address] May, [facility] [place] [facility] [address] [id number] [place] [address] May, [facility] [place] [facility] [address] [id number] [place] [address] May, [facility] [place] [facility] [address] [id number] [place] [address] Apr, [facility] [place] [facility] [address] [id number] [place] [address] Mar, [facility] [place] [facility] [address] [id number] [place] [address] Mar, [facility] [place] [facility] [address] [id number] [place] [address] Mar, [facility] [place] [facility] [address] [id number] [place] [address] February, [facility] [place] [facility] [address] [id number] [place] [address] February, [facility] [address] [id number] [place] [address] February, [facility] [address] [id number] [place] [address] February, [facility] [address] [facility] [id number] [place] [address] Dec, [facility] [address] [id number] [place] [address] Dec, [facility] [address] [id number] [place] [address] Dec, [facility] [address] [facility] [id number] [place] [address] Dec, [facility] [address] [facility] [id number] [place] [address] Nov, [facility] [place] [facility] [address] [id number] [place] [address] Nov, [facility] [address] [facility] [id number] [place] [address] Nov, [facility] [address] [facility] [id number] [place] [address] Nov, [facility] [address] [facility] [id number] [place] [address] 25[address] Nov, [facility] [place] [facility] [address] [id number] [place] [address] Oct, [facility] [place] [facility] [address] [id number] [place] [address] Oct, [facility] [place] [facility] [address] [id number] [place] [address] Oct, [facility] [place] [facility] [address] [facility] [id number] [place] [address] Aug, [facility] [place] [facility] [address] [id number] [place] [address] Aug, [facility] [place] [facility] [address] [id number] [place] [address] Jul, [facility] [place] [facility] [address] [id number] [place] [address] Jul, [facility] [place] [facility] [address] [id number] [place] [address] Jul, [facility] [place] [facility] [address] [id number] [place] [address] Jul, [facility] [place] [facility] [address] [id number] [place] [address] Jul, [facility] [place] [facility] [address] [id number] [place] [address] Jul, [facility] [place] [facility] [address] [id number] [place] [address] Jul, [facility] [place] [facility] [address] [id number] [place] [address] Jul, [facility] [place] [facility] [address] [id number] [place] [address] May, [facility] [place] [facility] [address] [id number] [place] [address] February, [facility] [place] [facility] [address] [id number] [place] [address] Nov, [facility] [place] [facility] [address] [id number] [place] [address] Sep, [facility] [place] [facility] [address] [id number] [place] [address] Aug, [facility] [place] [facility] [address] [id number] [place] [address]- [address] 14 Oct, 2009 [facility] [place] [facility] [address] [id number] [place] [address] Jul, [facility] [address] [facility] [id number] [place] [address] Jun, [facility] [address] [facility] [id number], [place] [address] Mar, [facility] [address] [facility] [id number] [place] [address] Mar, [facility] [address] [facility] [id number], [place] [address] Nov, IMMUNIZATIONS No Known Immunizations SOCIAL HISTORY Never Assessed REASON FOR VISIT Fall PLAN OF CARE VITAL SIGNS MEDICATIONS No [...] 2017 Hospitalization History surgeries Hospitalization History [facility]- irregular heart beat, shortness of breath Aug 2016 Hospitalization History post left hip surgery oct 2017
--- OUTSIDE RECORDS SUMMARY | 2019-01-24 07:47 | XMS REPORT ---
Author Author FRANCESCO PHILLIPS [facility] Address [address] [place] [address] Care Team Providers Care Pre Press Proofer Name Role Phone FRANCESCO PHILLIPS Unavailable PROBLEMS Type Condition ICD9-CM Code KQQ89-IT Code Onset Dates Condition Status SNOMED Code Problem Paroxysmal atrial fibrillation I48.0 Active 512984838 Problem Generalized anxiety disorder F41.1 Active 93024189 Problem Gastro-esophageal reflux disease without esophagitis K21.9 Active 418895657 Problem Chronic kidney disease, stage 1 N18.1 Active 776319387 Problem Secondary hyperparathyroidism of renal origin N25.81 Active 52137127 Problem 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 Active 593050374 Problem MDD (major depressive disorder), recurrent, in partial remission F33.41 Active 57300488 Problem Acquired hypothyroidism E03.9 Active 516891698 Problem Chronic diastolic heart failure I50.32 Active 076852884 Problem Arthritis M19.90 Active 7206850 Problem Depression F32.9 Active 50995038 Problem Anxiety F41.9 Active 18420281 Problem Chronic kidney disease (CKD) stage G1/A1, glomerular filtration rate ( GFR) equal to or greater than 90 mL/min/1.73 square meter and albuminuria creatinine ratio less than 30 mg/g N18.1 Active 443359523 Problem Atrial fibrillation, unspecified type I48.91 Active 37983619 ALLERGIES No Information ENCOUNTERS Encounter Location Date Diagnosis [facility] [address] [facility] [id number], [place] [address] Mar, Pain, dental K08.89 [facility] [address] [facility] [id number], [place] [address] February, Medicare annual wellness visit, initial Z00.00 ; MDD (major depressive disorder), recurrent, in partial remission F33.41 ; Atrial fibrillation, unspecified type I48.91 ; Chronic diastolic heart failure I50.32 ; Secondary hyperparathyroidism of renal origin N25.81 ; Acquired hypothyroidism E03.9 ; Anxiety F41.9 ; Chronic kidney disease, stage 1 N18.1 and Encounter for immunization Z23 [place] [address] [address] February, Closed fracture of one rib of right side, initial encounter S22.31XA ; Acute cystitis with hematuria N30.01 ; Right flank pain R10.9 and Rib pain on right side R07.81 [place] [address] [address] Jan, Acquired hypothyroidism E03.9 ; 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 ; Chronic kidney disease (CKD) stage G1/A1, glomerular filtration rate (GFR) equal to or greater than 90 mL/min/1.73 square meter and albuminuria creatinine ratio less than 30 mg/g N18.1 ; Paroxysmal atrial fibrillation I48.0 ; Chronic diastolic heart failure I50.32 and Secondary hyperparathyroidism of renal origin N25.81 [place] [address] [address]- [address] Jan, Arthritis M19.90 [place] [address] [address]14- 0[address] Jan, Paroxysmal atrial fibrillation I48.0 [place] [address] 35568- 57[address] Jan, Paroxysmal atrial fibrillation I48.0 [place] [address] 55403- 8478 Jan, [place] [address] 81510- 4[address] Jan, Generalized anxiety disorder F41.1 [place] [address] [address]18- 6269 Jan, Generalized anxiety disorder F41.1 and MDD (major depressive disorder), recurrent, in partial remission F33.[address] [place] [address] Dec, Arthritis M19.90 [facility] [address] [place] [id number] [place] [address] 57367- 3735 Dec, [facility] [address] [place] [id number] [place] [address] 31252- 6573 Nov, Arthritis M19.90 ; Chronic kidney disease (CKD) stage G1/A1 , glomerular filtration rate (GFR) equal to or greater than 90 mL/min/1.73 square meter and albuminuria creatinine ratio less than 30 mg/g N18.1 and Anxiety F41.9 [place] [address] [place] [id number] [place] [address] 10381- 7011 Nov, [facility] [address] [address]- 45[address] Nov, [facility] [address] 75067- 0495 Nov, [facility] [address] [place] [id number] [place] [address] 34518- 4554 Nov, [facility] [address] [place] [id number] [place] [address] 26208- 1101 Nov, [facility] [address] [place] [id number] [place] [address] 73085- 6320 Oct, Generalized anxiety disorder F41.1 [facility] [address] [place] [id number] [place] [address] 03909- 8774 Sep, Atrial fibrillation, unspecified type I48.91 [facility] [address] [place] [id number] [place] [address] 35879- 2361 Sep, Generalized anxiety disorder F41.1 and MDD (major depressive disorder), recurrent, in partial remission F33.41 [place] [address] [place] [id number] [place] [address] 94945- 3360 Sep, [facility] [address] [place] [id number] [place] [address] 56910- 2543 Aug, Generalized anxiety disorder F41.1 [facility] [address] [place] [address] 07580- 2736 Aug, [facility] [address] [place] [id number] [place] [address] 15744- 2521 Aug, Paroxysmal atrial fibrillation I48.0 and Gastro-esophageal reflux disease without esophagitis K21.9 [facility] [address] [place] [id number] [place] [address] 62738- 1059 Jul, [facility] [address] [place] [id number] [place] [address] 20388- 0897 Jul, Generalized anxiety disorder F41.1 [place] [address] [place] [id number] [place] [address] 39574- 9571 Jun, Generalized anxiety disorder F41.1 and MDD (major depressive disorder), recurrent, in partial remission F33.41 [facility] [address] [place] [id number] [place] [address] 22585- 4770 May, Recurrent major depressive disorder, in partial remission F33.41 [facility] [address] [place] [id number] [place] [address] 28483- 8755 May, Anxiety F41.9 and Paroxysmal atrial fibrillation I48.0 [place] [address] [place] [address] 42370- 3383 Apr, Generalized anxiety disorder F41.1 [facility] [address] [place] [address] 65217- 3790 Mar, [facility] [address] [place] [address] 86424- 5726 Mar, Generalized anxiety disorder F41.1 and MDD (major depressive disorder), recurrent, in partial remission F33.41 [facility] [address] [place] [address] 57324- 7058 February, Paroxysmal atrial fibrillation I48.0 and Anxiety F41.9 [facility] [address] [id number] [address] February, MDD (major depressive disorder), recurrent, in partial remission F33.41 [facility] [address], [place] [address] Jan, [facility] [address] [place] [address] Jan, [facility] [address] [place] [id number] [place] [address] 45476- 9972 Jan, [facility] [address] [place] [address] 41054- 5355 Jan, [facility] [address] [place] [id number] [place] [address] 49451- 8995 Dec, [facility] [address] [place] [id number] [place] [address] 95989- 0876 Dec, Generalized anxiety disorder F41.1 [facility] [address] [place] [id number] [place] [address] 00527- 3076 Dec, Generalized anxiety disorder F41.1 and MDD (major depressive disorder), recurrent, in partial remission F33.41 [facility] [address], [place] [address] Dec, [facility] [address], [place] [address] 4961 Dec, [facility] [address], [place] [address] 0638 Dec, [facility] [address], [place] [address] 5661 Nov, [facility] [address] [place] [id number] [place] [address] 95402- 8685 Nov, Gastro-esophageal reflux disease without esophagitis K21.9 [facility] [address], [place] [address] Nov, Atrial fibrillation, unspecified type I48.91 and Anxiety F41.9 [facility] [address] [place] [id number] [place] [address] 70599- 1821 Oct, [facility] [address] [place] [id number] [place] [address] 31397- 6467 Oct, [facility] [address] [place] [id number] [place] [address] 83993- 7026 Oct, Depression F32.9 and Atrial fibrillation, unspecified type I48.91 [facility] [address] [place] [id number] [place] [address] 73366- 3836 Oct, [facility] [address] [place] [id number] [place] [address] 85717- 2779 Sep, Depression F32.9 [facility] [address] [place] [id number] [place] [address] 96321- 4114 Sep, Recurrent major depressive disorder, in partial remission F33.41 and Generalized anxiety disorder F41.1 [place] [address] [place] [id number] [place] [address] 02612- 2584 Sep, Paroxysmal atrial fibrillation I48.0 and Anxiety F41.9 [facility] [address] [place] [id number] [place] [address] 36530- 5079 Sep, [facility] [address] [place] [id number] [place] [address] 66905- 7419 Sep, [facility] [address] [place] [id number] [place] [address] 84618- 0767 Sep, Gastro-esophageal reflux disease without esophagitis K21.9 [facility] [address] [place] [id number] [place] [address] 88022- 4095 Aug, [facility] [address] [place] [id number] [place] [address] 56590- 8777 Aug, [facility] [address] [place] [id number] [place] [address] 49696- 7816 Aug, Atrial fibrillation, unspecified type I48.91 [place] [address] [place] [address] 83458- 6710 Jul, Major depressive disorder, recurrent, in partial remission F33.41 and Generalized anxiety disorder F41.1 [place] [address] [place] [id number] [place] [address] 51930- 2086 Jul, [place] [address] [place] [id number] [place] [address] 90827- 2225 30 Jun, 2016 [place] [address] [place] [id number] [place] [address] 76972- 7998 15 Jun, 2016 Bronchitis J40 and Memory loss R41.3 [place] [address] [place] [id number] [place] [address] 30436- 9759 14 Jun, 2016 Upper respiratory infection with cough and congestion J06.9 [place] [address] [place] [id number] [place] [address] 16963- 5219 Apr, [place] [address] [place] [id number] [place] [address] 02335- 3117 Apr, Major depressive disorder, recurrent, unspecified F33.9 ; Anxiety F41.9 and Psychophysiological insomnia F51.04 [place] [address] [place] [id number] [place] [address] 27635- 3492 Mar, [place] [address] [place] [id number] [place] [address] 46556- 0551 Mar, [place] [address] [place] [id number] [place] [address] 01682- 3812 February, [place] [address] [place] [id number] [place] [address] 90276- 2427 Jan, Postural hypotension I95.1 [facility] [address] [place] [address] 62309- 9273 14 Jan, 2016 Recurrent major depressive disorder in remission F33.40 ; Generalized anxiety disorder F41.1 and Psychophysiological insomnia F51.04 [place] [address] [place] [address] 54834- 5811 14 Dec, 2015 Generalized anxiety disorder F41.1 [facility] [address] [place] [id number] [place] [address] 77148 -1054 11 Dec, 2015 Unspecified fall, initial encounter W19.XXXA [facility] [address] [place] [id number] [place] [address] 95348- 3750 Nov, Depression F32.9 and Anxiety F41.9 [facility] [address] [place] [id number] [place] [address] 56593- 9849 Oct, [place] [address] 71517- 0055 Oct, [facility] [address] [place] [id number] [place] [address] 02024- 6707 Oct, Chronic kidney disease, stage 3 (moderate) N18.3 [place] [address] [place] [id number] [place] [address] 91804- 7640 Oct, Head contusion S00.93XA ; Cervical strain S16.1XXA and Arthritis M19.90 [place] [address] [place] [id number] [place] [address] 49292- 6733 Oct, Chronic kidney disease 585.9 [place] [address] [place] [id number] [place] [address] 36510- 2179 Oct, Chronic kidney disease 585.9 [place] [address] [place] [id number] [place] [address] 12740- 0498 Oct, [place] [address] [place] [id number] [place] [address] 83987- 0463 Sep, [place] [address] [place] [id number] [place] [address] 25837- 9390 Aug, Chronic kidney disease N18.9 [place] [address] [place] [id number] [place] [address] 06823- 6255 Aug, Chronic kidney disease (CKD) stage G1/A1, glomerular filtration rate (GFR) equal to or greater than 90 mL/min/1.73 square meter and albuminuria creatinine ratio less than 30 mg/g N18.1 and GERD (gastroesophageal reflux disease) K21.9 [facility] [address] [place] [id number] [place] [address] 04329- 6604 Aug, [facility] [address] 09321- 5687 Jun, Generalized anxiety disorder 300.02 ; Major depression, recurrent 296.30 and Persistent 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 [facility] [address] 60025- 9524 Jun, [facility] [address] 46082- 1571 May, [facility] [address] 49571- 0854 May, Generalized anxiety disorder 300.02 and Depression, major, recurrent, in remission 296.35 [facility] [address] [place] [id number] [place] [address] 50569- 9493 May, [facility] [address] 44354- 6808 May, [facility] [address] [place] [id number] [place] [address] 04256- 0010 May, [facility] [address] [place] [id number] [place] [address] 70212- 6138 May, [facility] [address] [place] [id number] [place] [address] 83875- 5552 May, Chronic kidney disease 585.9 [facility] [address] 56026- 3494 Apr, Chronic kidney disease 585.9 [facility] [address] [place] [id number] [place] [address] 40592- 4352 Apr, [facility] [address] [place] [id number] [address]- 7635 Apr, Arthropathy 716.90 ; Hyperlipidemia 272.4 ; Hypothyroidism 244.9 and GERD (gastroesophageal reflux disease) 530.81 [facility] [address] [place] [id number] [place] [address] 57445- 8804 Apr, Arthropathy 716.90 ; Hypothyroidism 244.9 ; Hyperlipidemia 272.4 and GERD (gastroesophageal reflux disease) 530.81 [facility] [address] [place] [id number] [place] [address] 15529- 3118 17 Mar, 2015 [facility] [address] 118668- 0921 February, Depression, major, recurrent, in remission 296.35 and Generalized anxiety disorder 300.02 [facility] [address] [place] [id number] [place] [address] 74214- 7979 February, [facility] [address] [place] [id number] [place] [address] 71967- 5613 February, [facility] [address] [place] [id number] [place] [address] 55557- 0072 Jan, [facility] [address] [place] [id number] [place] [address] 01136- 4937 Jan, [facility] [address] [place] [id number] [place] [address] 56072- 0096 Oct, [facility] [address] [place] [id number] [place] [address] 99538- 4401 Oct, [facility] [address] [place] [id number] [place] [address] 66140- 6394 Oct, [facility] [address] [place] [id number] [place] [address] 95021- 3506 Oct, [facility] [address] [place] [id number] [place] [address] 973524- 7376 Oct, [facility] [address] [place] [id number] [place] [address] 82633- 4346 Oct, [facility] [place] [facility] [address] [id number] [place] [address]- 2873 Sep, [facility] [place] [facility] [address] [id number] [place] [address]- 0167 Sep, [facility] [place] [facility] [address] [id number] [place] [address]- 1021 Aug, [facility] [place] [facility] [address] [id number] [place] [address]- 9278 Aug, [facility] [place] [facility] [address] [id number] [place] [address]- 7567 Aug, [facility] [place] [facility] [address] [id number] [place] [address]- 1871 Aug, [facility] [place] [facility] [address] [id number] [place] [address]- 0277 Jul, [facility] [place] [facility] [address] [id number] [place] [address]- 8005 Jul, [facility] [place] [facility] [address] [id number] [place] [address]- 6825 Jul, [facility] [place] [facility] [address] [id number] [place] [address]- 7647 Jul, [facility] [place] [facility] [address] [id number] [address]- 1636 29 Jun, 2014 [facility] [place] [facility] [address] [id number] [place] [address]- 3040 22 Jun, 2014 [facility] [place] [facility] [address] [id number] [place] [address]- 5525 22 Jun, 2014 [facility] [place] [facility] [address] [id number] [place] [address]- 2066 10 Jun, 2014 [facility] [place] [facility] [address] [id number] [place] [address]- 3538 10 Jun, 2014 [facility] [place] [facility] [address] [id number] [place] [address]- 7838 Jun, [facility] [place] [facility] [address] [id number] [place] [address]- 0621 Jun, [facility] [place] [facility] [address] [id number] [place] [address]- 1190 May, [facility] [place] [facility] [address] [id number] [place] [address]- 5802 May, [facility] [place] [facility] [address] [id number] [place] [address]- 1063 May, [facility] [place] [facility] [address] [id number] [place] [address]- 9116 May, [facility] [place] [facility] [address] [id number] [place] [address]- 8029 Apr, [facility] [place] [facility] [address] [id number] [place] [address]- 6726 Apr, [facility] [place] [facility] [address] [id number] [place] [address]- 4945 Apr, [facility] [place] [facility] [address] [id number] [place] [address]- 5527 Apr, [facility] [place] [facility] [address] [id number] [place] [address]- 2553 Apr, [facility] [place] [facility] [address] [id number] [place] [address]- 0427 Apr, [facility] [place] [facility] [address] [id number] [place] [address]- 9391 Apr, [facility] [place] [facility] [address] [id number] [place] [address]- 1100 Apr, [facility] [place] [facility] [address] [id number] [place] [address]- 5014 Mar, [facility] [place] [facility] [address] [id number] [place] 8127 Mar, [facility] [place] [facility] [address] [id number] [place] [address]- 5482 Mar, [facility] [place] [facility] [address] [id number] [place] [address]- 4413 Mar, [facility] [place] [facility] [address] [id number] [place] [address]- 4279 Mar, [facility] [place] [facility] [address] [id number] [place] [address]- 7757 Mar, [facility] [place] [facility] [address] [id number] [place] [address]- 4585 Mar, [facility] [place] [facility] [address] [id number] [place] [address]- 3071 Mar, [facility] [place] [facility] [address] [id number] [place] [address]- 2700 Dec, [facility] [place] [facility] [address] [id number] [place] [address]- 4502 Dec, [facility] [place] [facility] [address] [id number] [place] [address]- 5031 Dec, [facility] [place] [facility] [address] [id number] [place] [address]- 8278 Dec, [facility] [place] [facility] [address] [id number] [place] [address]- 4858 Dec, [facility] [place] [facility] [address] [id number] [place] [address]- 6224 Dec, [facility] [place] [facility] [address] [id number] [place] [address]- 8015 Dec, [facility] [place] [facility] [address] [id number] [place] [address]- 8760 Dec, [facility] [place] [facility] [address] [id number] [place] [address]- 0837 Nov, [facility] [place] [facility] [address] [id number] [place] [address]- 9248 26 Nov, 2013 [facility] [place] [facility] [address] [id number] [place] [address]- 0696 Nov, 2013 [facility] [place] [facility] [address] [id number] [place] [address] Nov, 2013 [facility] [place] [facility] [address] [id number] [place] [address] 14 Nov, 2013 [facility] [place] [facility] [address] [id number] [place] [address] Nov, 2013 [facility] [place] [facility] [address] [id number] [place] [address] Nov, 2013 [facility] [place] [facility] [address] [facility] [id number] [place] [address] [address] Nov, [facility] [place] [facility] [address] [facility] [id number] [place] [address] Aug, [facility] [place] [facility] [address] [id number] [place] [address] Aug, [facility] [place] [facility] [address] [facility] [id number] [place] [address] 18 Jul, 2013 [facility] [place] [facility] [address] [facility] [id number] [place] [address] 18 Jul, 2013 [facility] [place] [facility] [address] [facility] [id number] [place] [address] 02 Jul, 2013 [facility] [place] [facility] [address] [id number] [place] [address] 30 Jun, 2013 [facility] [place] [facility] [address] [id number] [place] [address] 30 Jun, 2013 [facility] [place] [facility] [address] [id number] [place] [address] 24 Jun, 2013 [facility] [place] [facility] [address] [id number] [place] [address] Jun, [facility] [address] [id number] [place] [address] Jun, [facility] [place] [facility] [address] [id number] [place] [address] May, [facility] [place] [facility] [address] [id number] [place] [address] Apr, [facility] [place] [facility] [address] [id number] [place] [address] Apr, [facility] [address] [id number] [place] [address] Apr, [facility] [place] [facility] [address] [id number] [place] [address] Mar, [facility] [place] [facility] [address] [id number] [place] [address] Mar, [facility] [address] [id number] [place] [address] February, [facility] [place] [facility] [address] [id number] [place] [address] February, [facility] [place] [facility] [address] [id number] [place] [address] February, [facility] [place] [facility] [address] [id number] [place] [address] February, [facility] [place] [facility] [address] [id number] [place] [address] Jan, [facility] [place] [facility] [address] [id number] [place] [address] Jan, [facility] [place] [facility] [address] [id number] [place] [address] Jan, [facility] [place] [facility] [address] [id number] [place] [address] Jan, [facility] [place] [facility] [address] [id number] [place] [address] 20 Dec, 2012 [facility] [address] [id number] [place] [address] 13 Dec, 2012 [facility] [place] [facility] [address] [id number] [place] [address] Dec, [facility] [place] [facility] [address] [id number] [place] [address] 22 Nov, 2012 [facility] [place] [facility] [address] [id number] [place] [address] 15 Nov, 2012 [facility] [place] [facility] [address] [id number] [place] [address] Nov, [facility] [place] [facility] [address] [id number] [place] [address] Oct, [facility] [address] [id number] [place] [address] Oct, [facility] [place] [facility] [address] [id number] [place] [address] Sep, [facility] [place] [facility] [address] [id number] [place] [address] Sep, [facility] [place] [facility] [address] [id number] [place] [address] Sep, [facility] [place] [facility] [address] [id number] [place] [address] Sep, [facility] [place] [facility] [address] [id number] [place] [address] Sep, [facility] [place] [facility] [address] [id number] [place] [address] Aug, [facility] [place] [facility] [address] [id number] [place] [address] Aug, [facility] [place] [facility] [address] [id number] [place] [address] Aug, [facility] [place] [facility] [address] [id number] [place] [address] Aug, [facility] [place] [facility] [address] [id number] [place] [address] Aug, [facility] [place] [facility] [address] [id number] [place] [address] Aug, [facility] [place] [facility] [address] [id number] [place] [address] Jun, [facility] [place] [facility] [address] [id number] [place] [address] Jun, [facility] [place] [facility] [address] [id number] [place] [address] Jun, [facility] [place] [facility] [address] [id number] [place] [address] May, [facility] [place] [facility] [address] [id number] [place] [address] May, [facility] [place] [facility] [address] [id number] [place] [address] May, [facility] [place] [facility] [address] [id number] [place] [address] May, [facility] [place] [facility] [address] [id number] [place] [address] Apr, [facility] [place] [facility] [address] [id number] [place] [address] Mar, [facility] [place] [facility] [address] [id number] [place] [address] Mar, [facility] [place] [facility] [address] [id number] [place] [address] Mar, [facility] [place] [facility] [address] [id number] [place] [address] February, [facility] [place] [facility] [address] [id number] [place] [address] February, [facility] [address] [id number] [place] [address] February, [facility] [address] [id number] [place] [address] February, [facility] [address] [facility] [id number] [place] [address] Dec, [facility] [address] [id number] [place] [address] Dec, [facility] [address] [id number] [place] [address] Dec, [facility] [address] [facility] [id number] [place] [address] 2546 Dec, [facility] [address] [facility] [id number] [place] [address] Nov, [facility] [place] [facility] [address] [id number] [place] [address] Nov, [facility] [address] [facility] [id number] [place] [address] Nov, [facility] [address] [facility] [id number] [place] [address] Nov, [facility] [address] [facility] [id number] [place] [address] Nov, [facility] [place] [facility] [address] [id number] [place] [address] 25[address] Oct, [facility] [place] [facility] [address] [id number] [place] [address] Oct, [facility] [place] [facility] [address] [id number] [place] [address] Oct, [facility] [place] [facility] [address] [facility] [id number] [place] [address] Aug, [facility] [place] [facility] [address] [id number] [place] [address] Aug, [facility] [place] [facility] [address] [id number] [place] [address] Jul, [facility] [place] [facility] [address] [id number] [place] [address] Jul, [facility] [place] [facility] [address] [id number] [place] [address] Jul, [facility] [place] [facility] [address] [id number] [place] [address] Jul, [facility] [place] [facility] [address] [id number] [place] [address] Jul, [facility] [place] [facility] [address] [id number] [place] [address] Jul, [facility] [place] [facility] [address] [id number] [place] [address] Jul, [facility] [place] [facility] [address] [id number] [place] [address] Jul, [facility] [place] [facility] [address] [id number] [place] [address] May, [facility] [place] [facility] [address] [id number] [place] [address] February, [facility] [place] [facility] [address] [id number] [place] [address] Nov, [facility] [place] [facility] [address] [id number] [place] [address] Sep, [facility] [place] [facility] [address] [id number] [place] [address] Aug, [facility] [place] [facility] [address] [id number] [place] [address] 14 Oct, 2009 [facility] [place] [facility] [address] [id number] [place] [address] Jul, [facility] [address] [facility] [id number] [place] [address] Jun, [facility] [address] [facility] [id number], [place] [address] Mar, [facility] [address] [facility] [id number] [place] [address] Mar, [facility] [address] [facility] [id number], [place] [address] Nov, IMMUNIZATIONS No Known Immunizations SOCIAL HISTORY Never Assessed REASON FOR VISIT FYI- Plan of care PLAN OF CARE VITAL SIGNS MEDICATIONS No [...]
--- OUTSIDE RECORDS SUMMARY | 2019-01-24 07:48 | XMS REPORT ---
Author Author FRANCESCO PHILLIPS Organization [facility] Address [address] [place] [address] Care Team Providers Care Revenue Settlements Administrator Name Role Phone FRANCESCO PHILLIPS Unavailable PROBLEMS Type Condition ICD9-CM Code PFL04-MV Code Onset Dates Condition Status SNOMED Code Problem Paroxysmal atrial fibrillation I48.0 Active 354178193 Problem Generalized anxiety disorder F41.1 Active 82577625 Problem Gastro-esophageal reflux disease without esophagitis K21.9 Active 116462866 Problem Chronic kidney disease, stage 1 N18.1 Active 208389350 Problem Secondary hyperparathyroidism of renal origin N25.81 Active 97240887 Problem 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 Active 414514764 Problem MDD (major depressive disorder), recurrent, in partial remission F33.41 Active 10621491 Problem Acquired hypothyroidism E03.9 Active 111568133 Problem Chronic diastolic heart failure I50.32 Active 217745374 Problem Arthritis M19.90 Active 4719072 Problem Depression F32.9 Active 26265726 Problem Anxiety F41.9 Active 88333166 Problem Chronic kidney disease (CKD) stage G1/A1, glomerular filtration rate ( GFR) equal to or greater than 90 mL/min/1.73 square meter and albuminuria creatinine ratio less than 30 mg/g N18.1 Active 163281087 Problem Atrial fibrillation, unspecified type I48.91 Active 94378141 ALLERGIES No Information ENCOUNTERS Encounter Location Date Diagnosis [facility] [address] [facility] [id number] [address] Apr, [facility] [address] [facility] [id number], [place] [address] February, Medicare annual wellness visit, initial Z00.00 ; MDD (major depressive disorder), recurrent, in partial remission F33.41 ; Atrial fibrillation, unspecified type I48.91 ; Chronic diastolic heart failure I50.32 ; Secondary hyperparathyroidism of renal origin N25.81 ; Acquired hypothyroidism E03.9 ; Anxiety F41.9 ; Chronic kidney disease, stage 1 N18.1 and Encounter for immunization Z23 [place] [address] [address] February, Closed fracture of one rib of right side, initial encounter S22.31XA ; Acute cystitis with hematuria N30.01 ; Right flank pain R10.9 and Rib pain on right side R07.81 [place] [address] [address]- [address] Jan, Acquired hypothyroidism E03.9 ; 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 ; Chronic kidney disease (CKD) stage G1/A1, glomerular filtration rate (GFR) equal to or greater than 90 mL/min/1.73 square meter and albuminuria creatinine ratio less than 30 mg/g N18.1 ; Paroxysmal atrial fibrillation I48.0 ; Chronic diastolic heart failure I50.32 and Secondary hyperparathyroidism of renal origin N25.81 [place] [address] [address]- [address] Jan, Arthritis M19.90 [place] [address] [address]- 1625 Jan, Paroxysmal atrial fibrillation I48.0 [place] [address] 02371- 5175 Jan, Paroxysmal atrial fibrillation I48.0 [place] [address] 47413- 8087 Jan, [place] [address] 63894- 5323 Jan, Generalized anxiety disorder F41.1 [place] [address] 42233- 0097 Jan, Generalized anxiety disorder F41.1 and MDD (major depressive disorder), recurrent, in partial remission F33.41 [place] [address] [address]25- 2657 Dec, Arthritis M19.90 [facility] [address] [place] [id number] [place] [address] 10067- 9113 Dec, [facility] [address] [place] [id number] [place] [address] 43593- 3581 Nov, Arthritis M19.90 ; Chronic kidney disease (CKD) stage G1/A1 , glomerular filtration rate (GFR) equal to or greater than 90 mL/min/1.73 square meter and albuminuria creatinine ratio less than 30 mg/g N18.1 and Anxiety F41.9 [facility] [address] [place] [id number] [place] [address] 98343- 2483 Nov, [place] [address] [place] [id number] [place] [address] 90469- 0093 Nov, [place] [address] [place] [id number] [place] [address] 33906- 1611 Nov, [facility] [address] [place] [id number] [place] [address] 97053- 9240 Nov, [facility] [address] [place] [id number] [place] [address] 94930- 9519 Nov, [facility] [address] [place] [id number] [place] [address] 20973- 0431 Oct, Generalized anxiety disorder F41.1 [place] [address] [place] [id number] [place] [address] 19760- 4801 Sep, Atrial fibrillation, unspecified type I48.91 [facility] [id number] [place] [address] 23867- 9229 Sep, Generalized anxiety disorder F41.1 and MDD (major depressive disorder), recurrent, in partial remission F33.41 [facility] [address] [place] [id number] [place] [address] 48170- 3464 Sep, [facility] [address] [place] [id number] [place] [address] 00240- 9070 Aug, Generalized anxiety disorder F41.1 [facility] [address] [address] Aug, [facility] [address] [place] [id number] [place] [address] 78889- 0623 Aug, Paroxysmal atrial fibrillation I48.0 and Gastro-esophageal reflux disease without esophagitis K21.9 [facility] [address] [place] [id number] [place] [address] 92949- 1195 Jul, [facility] [address] [place] [id number] [place] [address] 13380- 9216 Jul, Generalized anxiety disorder F41.1 [place] [address] [place] [id number] [place] [address] 62044- 2442 Jun, Generalized anxiety disorder F41.1 and MDD (major depressive disorder), recurrent, in partial remission F33.41 [facility] [address] [place] [id number] [place] [address] 62463- 2688 May, Recurrent major depressive disorder, in partial remission F33.41 [facility] [address] [place] [id number] [place] [address] 17754- 7817 May, Anxiety F41.9 and Paroxysmal atrial fibrillation I48.0 [facility] [address] [place] [id number] [place] [address] 94949- 7015 Apr, Generalized anxiety disorder F41.1 [facility] [address] [place] [id number] [place] [address] 70734- 4772 Mar, [facility] [address] [place] [id number] [place] [address] 52078- 6473 Mar, Generalized anxiety disorder F41.1 and MDD (major depressive disorder), recurrent, in partial remission F33.41 [facility] [address] [place] [id number] [place] [address] 82747- 9745 February, Paroxysmal atrial fibrillation I48.0 and Anxiety F41.9 [facility] [address] [place] [id number] [place] [address] 77748- 1913 February, MDD (major depressive disorder), recurrent, in partial remission F33.41 [facility] [id number] [place] [address] 02341- 6326 Jan, [facility] [address] [address] Jan, [facility] [address] [place] [id number] [place] [address] 20759- 3628 Jan, [facility] [address] [place] [id number] [place] [address] 28694- 5748 Jan, [facility] [address] [place] [id number] [place] [address] 55574- 3008 Dec, [facility] [address] [place] [id number] [place] [address] 23062- 4041 Dec, Generalized anxiety disorder F41.1 [facility] [address] [place] [id number] [place] [address] 06980- 5230 Dec, Generalized anxiety disorder F41.1 and MDD (major depressive disorder), recurrent, in partial remission F33.41 [facility] [address] [place] [id number] [place] [address] 48324- 3488 Dec, [facility] [address] [place] [address] 39423- 5710 Dec, [facility] [address] [place] [address] 09130- 8916 Dec, [facility] [address] [place] [address] 74531- 4899 Nov, [facility] [address] [place] [id number] [place] [address] 33318- 2844 Nov, Gastro-esophageal reflux disease without esophagitis K21.9 [facility] [address], [place] [address]- 0187 10 Nov, 2016 Atrial fibrillation, unspecified type I48.91 and Anxiety F41.9 [facility] [address] [place] [address] 83084- 4498 Oct, [facility] [address] [place] [id number] [place] [address] 89328- 7109 Oct, [facility] [address] [place] [id number] [place] [address] 28453- 0191 Oct, Depression F32.9 and Atrial fibrillation, unspecified type I48.91 [facility] [address] [place] [id number] [place] [address] 49104- 1829 Oct, [facility] [address] [place] [id number] [place] [address] 72340- 8206 Sep, Depression F32.9 [facility] [address] [place] [id number] [place] [address] 23770- 4338 Sep, Recurrent major depressive disorder, in partial remission F33.41 and Generalized anxiety disorder F41.1 [facility] [address] [place] [id number] [place] [address] 58860- 7902 Sep, Paroxysmal atrial fibrillation I48.0 and Anxiety F41.9 [place] [address] [place] [id number] [place] [address] 04533- 2256 Sep, [facility] [address] [place] [id number] [place] [address] 11629- 0341 Sep, [facility] [address] [place] [id number] [place] [address] 62318- 7902 Sep, Gastro-esophageal reflux disease without esophagitis K21.9 [facility] [address] [place] [id number] [place] [address] 17025- 7903 Aug, [facility] [address] [place] [id number] [place] [address] 91918- 4387 Aug, [facility] [address] [place] [id number] [place] [address] 43061- 1490 Aug, Atrial fibrillation, unspecified type I48.91 [place] [address] [place] [id number] [place] [address] 24844- 9121 11 Jul, 2016 Major depressive disorder, recurrent, in partial remission F33.41 and Generalized anxiety disorder F41.1 [place] [address] [place] [id number] [place] [address] 98980- 1874 11 Jul, 2016 [place] [address] [place] [id number] [place] [address] 64657- 7431 30 Jun, 2016 [place] [address] 82601- 0561 15 Jun, 2016 Bronchitis J40 and Memory loss R41.3 [place] [address] 85222- 8160 14 Jun, 2016 Upper respiratory infection with cough and congestion J06.9 [place] [address] [place] [id number] [place] [address] 87201- 4186 Apr, [place] [address] 13542- 7385 Apr, Major depressive disorder, recurrent, unspecified F33.9 ; Anxiety F41.9 and Psychophysiological insomnia F51.04 [place] [address] [place] [id number] [place] [address] 22151- 5715 Mar, [place] [address] [place] [id number] [place] [address] 25650- 4929 Mar, [place] [address] [place] [id number] [place] [address] 43800- 1583 February, [place] [address] [place] [id number] [place] [address] 35890- 5345 Jan, Postural hypotension I95.1 [place] [address] [place] [id number] [place] [address] 28172- 1827 14 Jan, 2016 Recurrent major depressive disorder in remission F33.40 ; Generalized anxiety disorder F41.1 and Psychophysiological insomnia F51.04 [place] [address] [place] [address]- 2850 14 Dec, 2015 Generalized anxiety disorder F41.1 [facility] [address] [place] [id number] [place] [address] 33922 -1463 11 Dec, 2015 Unspecified fall, initial encounter W19.XXXA [facility] [address] [place] [id number] [place] [address] 88030- 2184 Nov, Depression F32.9 and Anxiety F41.9 [facility] [address] [place] [id number] [place] [address] 74584- 8794 Oct, [place] [address] 13482- 6257 Oct, [facility] [address] [place] [id number] [place] [address] 86477- 3730 Oct, Chronic kidney disease, stage 3 (moderate) N18.3 [place] [address] [place] [id number] [place] [address] 96526- 1953 Oct, Head contusion S00.93XA ; Cervical strain S16.1XXA and Arthritis M19.90 [place] [address] [place] [id number] [place] [address] 58209- 9139 Oct, Chronic kidney disease 585.9 [place] [address] [place] [id number] [place] [address] 38511- 3606 Oct, Chronic kidney disease 585.9 [place] [address] [place] [id number] [place] [address] 42094- 1499 Oct, [place] [address] [place] [id number] [place] [address] 48101- 6617 Sep, [place] [address] [place] [id number] [place] [address] 94149- 5565 Aug, Chronic kidney disease N18.9 [facility] [address] [place] [id number] [place] [address] 34130- 5835 Aug, Chronic kidney disease (CKD) stage G1/A1, glomerular filtration rate (GFR) equal to or greater than 90 mL/min/1.73 square meter and albuminuria creatinine ratio less than 30 mg/g N18.1 and GERD (gastroesophageal reflux disease) K21.9 [facility] [address] [place] [id number] [place] [address] 36306- 7308 Aug, [facility] [address] [place] [id number] [place] [address] 06918- 1210 Jun, Generalized anxiety disorder 300.02 ; Major depression, recurrent 296.30 and Persistent 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 [facility] [address] [place] [id number] [place] [address] 84182- 1824 Jun, [facility] [address] 03261- 2781 May, [facility] [address] [place] [id number] [place] [address] 71602- 7832 May, Generalized anxiety disorder 300.02 and Depression, major, recurrent, in remission 296.35 [facility] [address] [place] [id number] [place] [address] 91500- 4929 May, [facility] [address] [place] [id number] [place] [address] 03227- 6106 May, [facility] [address] [place] [id number] [place] [address] 41866- 3817 May, [facility] [address] [place] [id number] [place] [address] 76489- 3300 May, [facility] [address] [place] [id number] [place] [address] 90995- 0507 May, Chronic kidney disease 585.9 [facility] [address] [place] [id number] [place] [address] 36034- 0351 Apr, Chronic kidney disease 585.9 [facility] [address] [place] [id number] [place] [address] 72407- 6910 Apr, [facility] [address] [place] [address]- 9046 13 Apr, 2015 Arthropathy 716.90 ; Hyperlipidemia 272.4 ; Hypothyroidism 244.9 and GERD (gastroesophageal reflux disease) 530.81 [facility] [address] [place] [id number] [place] [address] 58656- 9736 Apr, Arthropathy 716.90 ; Hypothyroidism 244.9 ; Hyperlipidemia 272.4 and GERD (gastroesophageal reflux disease) 530.81 [facility] [address] [place] [id number] [place] [address] 55197- 7226 17 Mar, 2015 [facility] [address] [place] [id number] [place] [address] 35321- 8486 February, Depression, major, recurrent, in remission 296.35 and Generalized anxiety disorder 300.02 [facility] [address] [place] [id number] [place] [address] 87178- 0106 February, [facility] [address] [place] [id number] [place] [address] 16695- 4648 February, [facility] [address] [place] [id number] [place] [address] 53463- 3655 Jan, [facility] [address] [place] [id number] [place] [address] 75881- 4888 Jan, [facility] [address] [place] [id number] [address]- 8060 Oct, [facility] [address] [place] [id number] [place] [address] 96474- 9736 Oct, [facility] [address] [place] [address] 94915- 1536 Oct, [facility] [address] [place] [id number] [place] [address] 75809- 9816 Oct, [facility] [address] [place] [id number] [address]- 2046 Oct, [facility] [address] [place] [id number] [place] [address] 79843- 3092 Oct, [facility] [place] [facility] [address] [id number] [place] [address]- 9727 Sep, [facility] [place] [facility] [address] [id number] [place] [address]- 9022 Sep, [facility] [place] [facility] [address] [id number] [place] [address]- 0758 Aug, [facility] [place] [facility] [address] [id number] [place] [address]- 6494 Aug, [facility] [place] [facility] [address] [id number] [place] [address]- 5780 Aug, [facility] [place] [facility] [address] [id number] [place] [address]- 2220 Aug, [facility] [place] [facility] [address] [id number] [place] [address]- 9222 Jul, [facility] [place] [facility] [address] [id number] [place] [address]- 0756 Jul, [facility] [place] [facility] [address] [id number] [place] [address]- 6572 Jul, [facility] [place] [facility] [address] [id number] [place] [address]- 7919 Jul, [facility] [place] [facility] [address] [id number] [place] [address]- 3937 29 Jun, 2014 [facility] [place] [facility] [address] [id number] [place] [address]- 3028 22 Jun, 2014 [facility] [place] [facility] [address] [id number] [place] [address]- 3690 22 Jun, 2014 [facility] [place] [facility] [address] [id number] [place] [address]- 3436 Jun, [facility] [place] [facility] [address] [id number] [place] [address]- 0571 Jun, [facility] [place] [facility] [address] [id number] [place] [address]- 9277 Jun, [facility] [place] [facility] [address] [id number] [place] [address]- 1705 Jun, [facility] [place] [facility] [address] [id number] [place] [address]- 4612 May, [facility] [place] [facility] [address] [id number] [place] [address]- 3755 May, [facility] [place] [facility] [address] [id number] [place] [address]- 8438 May, [facility] [place] [facility] [address] [id number] [place] [address]- 7424 May, [facility] [place] [facility] [address] [id number] [place] [address]- 9331 Apr, [facility] [place] [facility] [address] [id number] [place] [address]- 8140 Apr, [facility] [place] [facility] [address] [id number] [place] [address]- 2654 Apr, [facility] [place] [facility] [address] [id number] [place] [address]- 6263 Apr, [facility] [place] [facility] [address] [id number] [place] [address]- 0234 Apr, [facility] [place] [facility] [address] [id number] [place] [address]- 8257 Apr, [facility] [place] [facility] [address] [id number] [place] [address]- 6659 Apr, [facility] [place] [facility] [address] [id number] [place] [address]- 6017 Apr, [facility] [place] [facility] [address] [id number] [place] [address]- 3452 Mar, [facility] [place] [facility] [address] [id number] [place] [address]- 2126 Mar, [facility] [place] [facility] [address] [id number] [place] [address]- 2162 Mar, [facility] [place] [facility] [address] [id number] [place] [address]- 6042 Mar, [facility] [place] [facility] [address] [id number] [place] [address]- 5301 Mar, [facility] [place] [facility] [address] [id number] [place] [address]- 9884 Mar, [facility] [place] [facility] [address] [id number] [place] [address]- 4954 Mar, [facility] [place] [facility] [address] [id number] [place] [address]- 5775 Mar, [facility] [place] [facility] [address] [id number] [place] [address]- 6638 Dec, [facility] [place] [facility] [address] [id number] [place] [address]- 7468 Dec, [facility] [place] [facility] [address] [id number] [place] [address]- 1043 Dec, [facility] [place] [facility] [address] [id number] [place] [address]- 0723 Dec, [facility] [place] [facility] [address] [id number] [place] [address]- 9608 Dec, [facility] [place] [facility] [address] [id number] [place] [address]- 4336 Dec, [facility] [place] [facility] [address] [id number] [place] [address]- 6335 Dec, [facility] [place] [facility] [address] [id number] [place] [address]- 0683 Dec, [facility] [place] [facility] [address] [id number] [place] [address]- 2068 Nov, [facility] [place] [facility] [address] [id number] [place] [address]- 0095 Nov, 2013 [facility] [place] [facility] [address] [id number] [place] [address]- 0311 Nov, 2013 [facility] [place] [facility] [address] [id number] [place] [address]- 6796 Nov, 2013 [facility] [place] [facility] [address] [facility] [id number] [place] [address]- 2396 Nov, 2013 [facility] [place] [facility] [address] [id number] [place] [address] Nov, 2013 [facility] [place] [facility] [address] [id number] [place] [address] Nov, [facility] [place] [facility] [address] [facility] [id number] [place] [address] Nov, [facility] [place] [facility] [address] [facility] [id number] [place] [address] Aug, [facility] [place] [facility] [address] [facility] [id number] [place] [address] Aug, [facility] [place] [facility] [address] [facility] [id number] [place] [address] Jul, [facility] [place] [facility] [address] [facility] [id number] [place] [address] 18 Jul, 2013 [facility] [place] [facility] [address] [facility] [id number] [place] [address] 02 Jul, 2013 [facility] [place] [facility] [address] [facility] [id number], [place] [address] 30 Jun, 2012 [facility] [place] [facility] [address] [facility] [id number] [place] [address] 30 Jun, 2012 [facility] [place] [facility] [address] [facility] [id number] [place] [address] 24 Jun, 2013 [facility] [place] [facility] [address] [facility] [id number] [address] 04 Jun, 2012 [facility] [place] [facility] [address] [id number] [place] [address] Jun, [facility] [address] [id number] [place] [address] May, [facility] [place] [facility] [address] [id number] [place] [address] Apr, [facility] [address] [id number] [place] [address] Apr, [facility] [address] [id number] [place] [address] Apr, [facility] [address] [id number] [place] [address] Mar, [facility] [address] [id number] [place] [address] Mar, [facility] [address] [id number] [place] [address] February, [facility] [address] [id number] [place] [address] February, [facility] [address] [id number] [place] [address] February, [facility] [address] [id number] [place] [address] February, [facility] [facility] [address] [id number] [place] [address] Jan, [facility] [place] [facility] [address] [id number] [place] [address] Jan, [facility] [place] [facility] [address] [id number] [place] [address] Jan, [facility] [place] [facility] [address] [id number] [place] [address] Jan, [facility] [place] [facility] [address] [id number] [place] [address] 20 Dec, 2012 [facility] [address] [id number] [place] [address] 13 Dec, 2012 [facility] [place] [facility] [address] [id number] [place] [address] Dec, [facility] [place] [facility] [address] [id number] [place] [address] 22 Nov, 2012 [facility] [place] [facility] [address] [id number] [place] [address] 15 Nov, 2012 [facility] [place] [facility] [address] [id number] [place] [address] Nov, [facility] [place] [facility] [address] [id number] [place] [address] Oct, [facility] [place] [facility] [address] [id number] [place] [address] Oct, [facility] [place] [facility] [address] [id number] [place] [address] Sep, [facility] [place] [facility] [address] [id number] [place] [address] Sep, [facility] [place] [facility] [address] [id number] [place] [address] Sep, [facility] [place] [facility] [address] [id number] [place] [address] Sep, [facility] [place] [facility] [address] [id number] [place] [address] Sep, [facility] [place] [facility] [address] [id number] [place] [address] Aug, [facility] [place] [facility] [address] [id number] [place] [address] Aug, [facility] [place] [facility] [address] [id number] [place] [address] Aug, [facility] [place] [facility] [address] [id number] [place] [address] Aug, [facility] [address] [id number] [place] [address] Aug, [facility] [place] [facility] [address] [id number] [place] [address] Aug, [facility] [address] [id number] [place] [address] Jun, [facility] [place] [facility] [address] [id number] [place] [address] Jun, [facility] [address] [id number] [place] [address] Jun, [facility] [address] [id number] [place] [address] May, [facility] [place] [facility] [address] [id number] [place] [address] May, [facility] [address] [id number] [place] [address] May, [facility] [place] [facility] [address] [id number] [place] [address] May, [facility] [address] [id number] [place] [address] Apr, [facility] [place] [facility] [address] [id number] [place] [address] Mar, [facility] [place] [facility] [address] [id number] [place] [address] Mar, [facility] [place] [facility] [address] [id number] [place] [address] Mar, [facility] [place] [facility] [address] [id number] [place] [address] February, [facility] [place] [facility] [address] [id number] [place] [address] February, [facility] [address] [id number] [place] [address] February, [facility] [place] [facility] [address] [id number] [place] [address] February, [facility] [place] [facility] [address] [id number] [place] [address] 1006 Dec, [facility] [place] [facility] [address] [id number] [place] [address] Dec, [facility] [address] [id number] [place] [address] Dec, [facility] [place] [facility] [address] [id number] [place] [address] Dec, [facility] [place] [facility] [address] [id number] [place] [address]- [address] Nov, [facility] [place] [facility] [address] [id number] [place] [address] Nov, [facility] [place] [facility] [address] [id number] [place] [address] Nov, [facility] [place] [facility] [address] [id number] [place] [address] Nov, [facility] [place] [facility] [address] [id number] [place] [address] Nov, [facility] [place] [facility] [address] [id number] [place] [address] Oct, [facility] [place] [facility] [address] [id number] [place] [address] 1716 Oct, [facility] [place] [facility] [address] [id number] [place] [address]- [address] Oct, [facility] [place] [facility] [address] [id number] [place] [address] Aug, [facility] [place] [facility] [address] [id number] [place] [address]- 8490 Aug, [facility] [place] [facility] [address] [id number] [place] [address]- [address] Jul, [facility] [place] [facility] [address] [id number] [place] [address] Jul, [facility] [place] [facility] [address] [id number] [place] [address] Jul, [facility] [place] [facility] [address] [id number] [place] [address] Jul, [facility] [place] [facility] [address] [id number] [place] [address]792 Jul, [facility] [place] [facility] [address] [id number] [place] [address] Jul, [facility] [place] [facility] [address] [id number] [place] [address] Jul, [facility] [place] [facility] [address] [id number] [place] [address] Jul, [facility] [place] [facility] [address] [id number] [place] [address] May, [facility] [place] [facility] [address] [id number] [place] [address]- [address] February, [facility] [place] [facility] [address] [id number] [place] [address]- [address] Nov, [facility] [place] [facility] [address] [id number] [place] [address]- [address]269 Sep, [facility] [place] [facility] [address] [id number] [place] [address]- [address] Aug, [facility] [place] [facility] [address] [id number] [place] [address]- [address] Oct, [facility] [place] [facility] [address] [id number] [place] [address] Jul, [facility] [address] [facility] [id number] [place] [address] Jun, [facility] [address] [facility] [id number], [place] [address] Mar, [facility] [address] [facility] [id number], [place] [address] Mar, [facility] [address] [facility] [id number], [place] [address] Nov, IMMUNIZATIONS No Known Immunizations SOCIAL HISTORY Never Assessed REASON FOR VISIT Medication question PLAN OF CARE VITAL SIGNS MEDICATIONS Medication [...]
--- OUTSIDE RECORDS SUMMARY | 2019-01-24 07:49 | XMS REPORT ---
Author Author FRANCESCO PHILLIPS [facility] Address [address] [place] [address] Care Team Providers Care Laundrette Owner Name Role Phone FRANCESCO PHILLIPS Unavailable PROBLEMS Type Condition ICD9-CM Code YGC40-SP Code Onset Dates Condition Status SNOMED Code Problem Paroxysmal atrial fibrillation I48.0 Active 472749976 Problem Generalized anxiety disorder F41.1 Active 78016943 Problem Gastro-esophageal reflux disease without esophagitis K21.9 Active 694359888 Problem Chronic kidney disease, stage 1 N18.1 Active 084723740 Problem Secondary hyperparathyroidism of renal origin N25.81 Active 92862286 Problem 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 Active 291018869 Problem MDD (major depressive disorder), recurrent, in partial remission F33.41 Active 12404268 Problem Acquired hypothyroidism E03.9 Active 792910093 Problem Chronic diastolic heart failure I50.32 Active 898280210 Problem Arthritis M19.90 Active 8170437 Problem Depression F32.9 Active 31708445 Problem Anxiety F41.9 Active 76129160 Problem Chronic kidney disease (CKD) stage G1/A1, glomerular filtration rate ( GFR) equal to or greater than 90 mL/min/1.73 square meter and albuminuria creatinine ratio less than 30 mg/g N18.1 Active 089039391 Problem Atrial fibrillation, unspecified type I48.91 Active 43582063 ALLERGIES No Information ENCOUNTERS Encounter Location Date Diagnosis [facility] [address] [facility] [id number] [address] Mar, Pain, dental K08.89 [facility] [address] [facility] [id number] [address] February, Medicare annual wellness visit, initial Z00.00 ; MDD (major depressive disorder), recurrent, in partial remission F33.41 ; Atrial fibrillation, unspecified type I48.91 ; Chronic diastolic heart failure I50.32 ; Secondary hyperparathyroidism of renal origin N25.81 ; Acquired hypothyroidism E03.9 ; Anxiety F41.9 ; Chronic kidney disease, stage 1 N18.1 and Encounter for immunization Z23 [place] [address] [address] February, Closed fracture of one rib of right side, initial encounter S22.31XA ; Acute cystitis with hematuria N30.01 ; Right flank pain R10.9 and Rib pain on right side R07.81 [place] [address] [address] Jan, Acquired hypothyroidism E03.9 ; 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 ; Chronic kidney disease (CKD) stage G1/A1, glomerular filtration rate (GFR) equal to or greater than 90 mL/min/1.73 square meter and albuminuria creatinine ratio less than 30 mg/g N18.1 ; Paroxysmal atrial fibrillation I48.0 ; Chronic diastolic heart failure I50.32 and Secondary hyperparathyroidism of renal origin N25.81 [place] [address] [address] Jan, Arthritis M19.90 [place] [address] [address]- 06[address] Jan, Paroxysmal atrial fibrillation I48.0 [place] [address] [address]77- 4164 Jan, Paroxysmal atrial fibrillation I48.0 [place] [address] 69153- 8758 Jan, [place] [address] 8[address]81- 0[address] Jan, Generalized anxiety disorder F41.1 [place] [address] [address]36- 75[address] Jan, Generalized anxiety disorder F41.1 and MDD (major depressive disorder), recurrent, in partial remission F33.[address] [place] [address] Dec, Arthritis M19.90 [facility] [address] [place] [id number] [place] [address] 81061- 3972 Dec, [facility] [address] [place] [id number] [place] [address] 62269- 2272 Nov, Arthritis M19.90 ; Chronic kidney disease (CKD) stage G1/A1 , glomerular filtration rate (GFR) equal to or greater than 90 mL/min/1.73 square meter and albuminuria creatinine ratio less than 30 mg/g N18.1 and Anxiety F41.9 [place] [address] [place] [id number] [place] [address] 26449- 5152 Nov, [facility] [address] [address]- 99[address] Nov, [facility] [address] 7[address]30- 2980 Nov, [facility] [address] [place] [id number] [place] [address] 15144- 0816 Nov, [facility] [address] [place] [id number] [place] [address] 31675- 5033 Nov, [facility] [address] [place] [id number] [place] [address] 63138- 5495 Oct, Generalized anxiety disorder F41.1 [facility] [address] [place] [id number] [place] [address] 09525- 4199 Sep, Atrial fibrillation, unspecified type I48.91 [facility] [address] [place] [id number] [place] [address] 76904- 4560 Sep, Generalized anxiety disorder F41.1 and MDD (major depressive disorder), recurrent, in partial remission F33.41 [place] [address] [place] [id number] [place] [address] 36096- 0233 Sep, [facility] [address] [place] [id number] [place] [address] 65860- 9191 Aug, Generalized anxiety disorder F41.1 [facility] [id number] [place] [address] 28635- 5639 Aug, [facility] [address] [place] [id number] [place] [address] 91633- 3929 Aug, Paroxysmal atrial fibrillation I48.0 and Gastro-esophageal reflux disease without esophagitis K21.9 [facility] [address] [place] [id number] [place] [address] 52030- 0071 Jul, [facility] [address] [place] [id number] [place] [address] 24066- 8224 Jul, Generalized anxiety disorder F41.1 [place] [address] [place] [id number] [place] [address] 51007- 6125 Jun, Generalized anxiety disorder F41.1 and MDD (major depressive disorder), recurrent, in partial remission F33.41 [facility] [address] [place] [id number] [place] [address] 20229- 9712 May, Recurrent major depressive disorder, in partial remission F33.41 [facility] [address] [place] [id number] [place] [address] 05018- 7305 May, Anxiety F41.9 and Paroxysmal atrial fibrillation I48.0 [place] [id number] [place] [address] 13567- 8691 Apr, Generalized anxiety disorder F41.1 [facility] [id number] [place] [address] 40215- 3971 Mar, [facility] [id number] [place] [address] 27218- 3073 Mar, Generalized anxiety disorder F41.1 and MDD (major depressive disorder), recurrent, in partial remission F33.41 [facility] [id number] [place] [address] 51741- 9701 February, Paroxysmal atrial fibrillation I48.0 and Anxiety F41.9 [facility] [address] [id number] [address] February, MDD (major depressive disorder), recurrent, in partial remission F33.41 [facility] [address] [address] Jan, [facility] [id number] [place] [address] Jan, [facility] [address] [place] [id number] [place] [address] 21897- 6143 Jan, [facility] [id number] [place] [address] 79967- 3848 Jan, [facility] [address] [place] [id number] [place] [address] 75659- 8043 Dec, [facility] [address] [place] [id number] [place] [address] 70918- 6741 Dec, Generalized anxiety disorder F41.1 [facility] [address] [place] [id number] [place] [address] 35187- 7904 Dec, Generalized anxiety disorder F41.1 and MDD (major depressive disorder), recurrent, in partial remission F33.41 [facility] [address] [address] 4098 Dec, [facility] [address] [address]- 6275 Dec, [facility] [address] [address]- 6372 Dec, [facility] [address] [address]- 4740 Nov, [facility] [address] [place] [id number] [place] [address] 84769- 6268 Nov, Gastro-esophageal reflux disease without esophagitis K21.9 [facility] [address] [address]- 6433 Nov, Atrial fibrillation, unspecified type I48.91 and Anxiety F41.9 [facility] [address] [place] [id number] [place] [address] 19343- 3961 Oct, [facility] [address] [place] [id number] [place] [address] 71379- 3193 Oct, [facility] [address] [place] [id number] [place] [address] 11611- 7147 Oct, Depression F32.9 and Atrial fibrillation, unspecified type I48.91 [facility] [address] [place] [id number] [place] [address] 54880- 8702 Oct, [facility] [address] [place] [id number] [place] [address] 28851- 2045 Sep, Depression F32.9 [facility] [address] [place] [id number] [place] [address] 98862- 1145 Sep, Recurrent major depressive disorder, in partial remission F33.41 and Generalized anxiety disorder F41.1 [place] [address] [place] [id number] [place] [address] 57966- 7987 Sep, Paroxysmal atrial fibrillation I48.0 and Anxiety F41.9 [facility] [address] [place] [id number] [place] [address] 57683- 8421 Sep, [facility] [address] [place] [id number] [place] [address] 25387- 1166 Sep, [facility] [address] [place] [id number] [place] [address] 33352- 8408 Sep, Gastro-esophageal reflux disease without esophagitis K21.9 [facility] [address] [place] [id number] [place] [address] 19042- 4054 Aug, [facility] [address] [place] [id number] [place] [address] 14430- 7812 Aug, [facility] [address] [place] [id number] [place] [address] 71968- 3800 Aug, Atrial fibrillation, unspecified type I48.91 [place] [id number] [place] [address] 70989- 0916 Jul, Major depressive disorder, recurrent, in partial remission F33.41 and Generalized anxiety disorder F41.1 [place] [address] [place] [id number] [place] [address] 67698- 6594 Jul, [place] [address] [place] [id number] [place] [address] 72032- 0048 30 Jun, 2016 [place] [address] [place] [id number] [place] [address] 20523- 1229 15 Jun, 2016 Bronchitis J40 and Memory loss R41.3 [place] [address] [place] [id number] [place] [address] 51852- 0891 14 Jun, 2016 Upper respiratory infection with cough and congestion J06.9 [place] [address] [place] [id number] [place] [address] 10247- 3329 Apr, [place] [address] [place] [id number] [place] [address] 85642- 0240 Apr, Major depressive disorder, recurrent, unspecified F33.9 ; Anxiety F41.9 and Psychophysiological insomnia F51.04 [place] [address] [place] [id number] [place] [address] 24883- 8808 Mar, [place] [address] [place] [id number] [place] [address] 95233- 6355 Mar, [place] [address] [place] [id number] [place] [address] 50775- 8958 February, [place] [address] [place] [id number] [place] [address] 39353- 7567 Jan, Postural hypotension I95.1 [facility] [id number] [place] [address] 52049- 5230 14 Jan, 2016 Recurrent major depressive disorder in remission F33.40 ; Generalized anxiety disorder F41.1 and Psychophysiological insomnia F51.04 [place] [id number] [place] [address] 79088- 2890 14 Dec, 2015 Generalized anxiety disorder F41.1 [facility] [address] [place] [id number] [place] [address] 54378 -7653 11 Dec, 2015 Unspecified fall, initial encounter W19.XXXA [facility] [address] [place] [id number] [place] [address] 05958- 2086 Nov, Depression F32.9 and Anxiety F41.9 [facility] [address] [place] [id number] [place] [address] 59024- 3162 Oct, [place] [address] 78225- 1917 Oct, [facility] [address] [place] [id number] [place] [address] 52052- 0816 Oct, Chronic kidney disease, stage 3 (moderate) N18.3 [place] [address] [place] [id number] [place] [address] 71117- 3314 Oct, Head contusion S00.93XA ; Cervical strain S16.1XXA and Arthritis M19.90 [place] [address] [place] [id number] [place] [address] 99029- 2649 Oct, Chronic kidney disease 585.9 [place] [address] [place] [id number] [place] [address] 15097- 5519 Oct, Chronic kidney disease 585.9 [place] [address] [place] [id number] [place] [address] 87304- 2744 Oct, [place] [address] [place] [id number] [place] [address] 37939- 3498 Sep, [place] [address] [place] [id number] [place] [address] 56152- 2806 Aug, Chronic kidney disease N18.9 [place] [address] [place] [id number] [place] [address] 07233- 4867 Aug, Chronic kidney disease (CKD) stage G1/A1, glomerular filtration rate (GFR) equal to or greater than 90 mL/min/1.73 square meter and albuminuria creatinine ratio less than 30 mg/g N18.1 and GERD (gastroesophageal reflux disease) K21.9 [facility] [address] [place] [id number] [place] [address] 61292- 9021 Aug, [facility] [address] 68437- 2910 Jun, Generalized anxiety disorder 300.02 ; Major depression, recurrent 296.30 and Persistent 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 [facility] [address] 49371- 4167 Jun, [facility] [address] 34589- 5543 May, [facility] [address] 33279- 3982 May, Generalized anxiety disorder 300.02 and Depression, major, recurrent, in remission 296.35 [facility] [address] [place] [id number] [place] [address] 66090- 1023 May, [facility] [address] 56194- 9827 May, [facility] [address] [place] [id number] [place] [address] 87710- 0509 May, [facility] [address] [place] [id number] [place] [address] 50119- 1702 May, [facility] [address] [place] [id number] [place] [address] 26958- 0681 May, Chronic kidney disease 585.9 [facility] [address] 18447- 4878 Apr, Chronic kidney disease 585.9 [facility] [address] [place] [id number] [place] [address] 25219- 0933 Apr, [facility] [address] [place] [id number] [address]- 7436 Apr, Arthropathy 716.90 ; Hyperlipidemia 272.4 ; Hypothyroidism 244.9 and GERD (gastroesophageal reflux disease) 530.81 [facility] [address] [place] [id number] [place] [address] 01052- 5125 Apr, Arthropathy 716.90 ; Hypothyroidism 244.9 ; Hyperlipidemia 272.4 and GERD (gastroesophageal reflux disease) 530.81 [facility] [address] [place] [id number] [place] [address] 20938- 7917 17 Mar, 2015 [facility] [address] 130440- 1621 February, Depression, major, recurrent, in remission 296.35 and Generalized anxiety disorder 300.02 [facility] [address] [place] [id number] [place] [address] 93540- 9086 February, [facility] [address] [place] [id number] [place] [address] 55651- 7785 February, [facility] [address] [place] [id number] [place] [address] 97303- 7723 Jan, [facility] [address] [place] [id number] [place] [address] 28729- 5294 Jan, [facility] [address] [place] [id number] [place] [address] 54186- 4677 Oct, [facility] [address] [place] [id number] [place] [address] 48028- 8729 Oct, [facility] [address] [place] [id number] [place] [address] 31534- 4328 Oct, [facility] [address] [place] [id number] [place] [address] 59422- 7304 Oct, [facility] [address] [place] [id number] [place] [address] 214116- 1164 Oct, [facility] [address] [place] [id number] [place] [address] 77821- 3798 Oct, [facility] [place] [facility] [address] [id number] [place] [address]- 2752 Sep, [facility] [place] [facility] [address] [id number] [place] [address]- 7568 Sep, [facility] [place] [facility] [address] [id number] [place] [address]- 6882 Aug, [facility] [place] [facility] [address] [id number] [place] [address]- 4175 Aug, [facility] [place] [facility] [address] [id number] [place] [address]- 1845 Aug, [facility] [place] [facility] [address] [id number] [place] [address]- 4010 Aug, [facility] [place] [facility] [address] [id number] [place] [address]- 2241 Jul, [facility] [place] [facility] [address] [id number] [place] [address]- 3105 Jul, [facility] [place] [facility] [address] [id number] [place] [address]- 5146 Jul, [facility] [place] [facility] [address] [id number] [place] [address]- 1601 Jul, [facility] [place] [facility] [address] [id number] [address]- 5793 29 Jun, 2014 [facility] [place] [facility] [address] [id number] [place] [address]- 8211 22 Jun, 2014 [facility] [place] [facility] [address] [id number] [place] [address]- 8023 22 Jun, 2014 [facility] [place] [facility] [address] [id number] [place] [address]- 5595 10 Jun, 2014 [facility] [place] [facility] [address] [id number] [place] [address]- 0052 10 Jun, 2014 [facility] [place] [facility] [address] [id number] [place] [address]- 2202 Jun, [facility] [place] [facility] [address] [id number] [place] [address]- 7205 Jun, [facility] [place] [facility] [address] [id number] [place] [address]- 1144 May, [facility] [place] [facility] [address] [id number] [place] [address]- 9433 May, [facility] [place] [facility] [address] [id number] [place] [address]- 4870 May, [facility] [place] [facility] [address] [id number] [place] [address]- 4105 May, [facility] [place] [facility] [address] [id number] [place] [address]- 7974 Apr, [facility] [place] [facility] [address] [id number] [place] [address]- 3806 Apr, [facility] [place] [facility] [address] [id number] [place] [address]- 0156 Apr, [facility] [place] [facility] [address] [id number] [place] [address]- 8887 Apr, [facility] [place] [facility] [address] [id number] [place] [address]- 4566 Apr, [facility] [place] [facility] [address] [id number] [place] [address]- 9694 Apr, [facility] [place] [facility] [address] [id number] [place] [address]- 5758 Apr, [facility] [place] [facility] [address] [id number] [place] [address]- 5717 Apr, [facility] [place] [facility] [address] [id number] [place] [address]- 5045 Mar, [facility] [place] [facility] [address] [id number] [place] 2318 Mar, [facility] [place] [facility] [address] [id number] [place] [address]- 8085 Mar, [facility] [place] [facility] [address] [id number] [place] [address]- 8683 Mar, [facility] [place] [facility] [address] [id number] [place] [address]- 0106 Mar, [facility] [place] [facility] [address] [id number] [place] [address]- 8148 Mar, [facility] [place] [facility] [address] [id number] [place] [address]- 0288 Mar, [facility] [place] [facility] [address] [id number] [place] [address]- 8668 Mar, [facility] [place] [facility] [address] [id number] [place] [address]- 1758 Dec, [facility] [place] [facility] [address] [id number] [place] [address]- 0422 Dec, [facility] [place] [facility] [address] [id number] [place] [address]- 6822 Dec, [facility] [place] [facility] [address] [id number] [place] [address]- 8755 Dec, [facility] [place] [facility] [address] [id number] [place] [address]- 3364 Dec, [facility] [place] [facility] [address] [id number] [place] [address]- 8266 Dec, [facility] [place] [facility] [address] [id number] [place] [address]- 6345 Dec, [facility] [place] [facility] [address] [id number] [place] [address]- 4512 Dec, [facility] [place] [facility] [address] [id number] [place] [address]- 8927 Nov, [facility] [place] [facility] [address] [id number] [place] [address]- 8375 26 Nov, 2013 [facility] [place] [facility] [address] [id number] [place] [address]- 0316 Nov, 2013 [facility] [place] [facility] [address] [id number] [place] [address] 2546 Nov, 2013 [facility] [place] [facility] [address] [id number] [place] [address] 2546 14 Nov, 2013 [facility] [place] [facility] [address] [id number] [place] [address]- 2546 Nov, 2013 [facility] [place] [facility] [address] [id number] [place] [address]- 8258 Nov, 2013 [facility] [place] [facility] [address] [facility] [id number] [place] 7667 Nov, [facility] [place] [facility] [address] [facility] [id number] [place] [address]- 5715 Aug, [facility] [place] [facility] [address] [id number] [place] [address] Aug, [facility] [place] [facility] [address] [facility] [id number] [place] [address] 18 Jul, 2013 [facility] [place] [facility] [address] [facility] [id number] [place] [address] 18 Jul, 2013 [facility] [place] [facility] [address] [facility] [id number] [place] [address] 02 Jul, 2013 [facility] [place] [facility] [address] [id number] [place] [address] 30 Jun, 2013 [facility] [place] [facility] [address] [id number] [place] [address] 30 Jun, 2013 [facility] [place] [facility] [address] [id number] [place] [address] 24 Jun, 2013 [facility] [place] [facility] [address] [id number] [place] [address] Jun, [facility] [address] [id number] [place] [address] Jun, [facility] [place] [facility] [address] [id number] [place] [address] May, [facility] [place] [facility] [address] [id number] [place] [address] Apr, [facility] [place] [facility] [address] [id number] [place] [address] Apr, [facility] [address] [id number] [place] [address] Apr, [facility] [place] [facility] [address] [id number] [place] [address] Mar, [facility] [place] [facility] [address] [id number] [place] [address] Mar, [facility] [address] [id number] [place] [address] February, [facility] [place] [facility] [address] [id number] [place] [address] February, [facility] [place] [facility] [address] [id number] [place] [address] February, [facility] [place] [facility] [address] [id number] [place] [address] February, [facility] [place] [facility] [address] [id number] [place] [address] Jan, [facility] [place] [facility] [address] [id number] [place] [address] Jan, [facility] [place] [facility] [address] [id number] [place] [address] Jan, [facility] [place] [facility] [address] [id number] [place] [address] Jan, [facility] [place] [facility] [address] [id number] [place] [address] 20 Dec, 2012 [facility] [address] [id number] [place] [address] 13 Dec, 2012 [facility] [place] [facility] [address] [id number] [place] [address] Dec, [facility] [place] [facility] [address] [id number] [place] [address] 22 Nov, 2012 [facility] [place] [facility] [address] [id number] [place] [address] 15 Nov, 2012 [facility] [place] [facility] [address] [id number] [place] [address] Nov, [facility] [place] [facility] [address] [id number] [place] [address] Oct, [facility] [address] [id number] [place] [address] Oct, [facility] [place] [facility] [address] [id number] [place] [address] Sep, [facility] [place] [facility] [address] [id number] [place] [address] Sep, [facility] [place] [facility] [address] [id number] [place] [address] Sep, [facility] [place] [facility] [address] [id number] [place] [address] Sep, [facility] [place] [facility] [address] [id number] [place] [address] 254 Sep, [facility] [place] [facility] [address] [id number] [place] [address] Aug, [facility] [place] [facility] [address] [id number] [place] [address] 7926 Aug, [facility] [place] [facility] [address] [id number] [place] [address] Aug, [facility] [place] [facility] [address] [id number] [place] [address] Aug, [facility] [place] [facility] [address] [id number] [place] [address] 45[address] Aug, [facility] [place] [facility] [address] [id number] [place] [address] Aug, [facility] [place] [facility] [address] [id number] [place] [address] Jun, [facility] [place] [facility] [address] [id number] [place] [address] Jun, [facility] [place] [facility] [address] [id number] [place] [address] Jun, [facility] [place] [facility] [address] [id number] [place] [address] May, [facility] [place] [facility] [address] [id number] [place] [address] May, [facility] [place] [facility] [address] [id number] [place] [address] May, [facility] [place] [facility] [address] [id number] [place] [address] May, [facility] [place] [facility] [address] [id number] [place] [address] Apr, [facility] [place] [facility] [address] [id number] [place] [address] Mar, [facility] [place] [facility] [address] [id number] [place] [address] Mar, [facility] [place] [facility] [address] [id number] [place] [address] 40[address] Mar, [facility] [place] [facility] [address] [id number] [place] [address] 8827 February, [facility] [place] [facility] [address] [id number] [place] [address] February, [facility] [address] [id number] [place] [address] February, [facility] [address] [id number] [place] [address]46 February, [facility] [address] [facility] [id number] [place] [address] Dec, [facility] [address] [id number] [place] [address] 35[address] Dec, [facility] [address] [id number] [place] [address] Dec, [facility] [address] [facility] [id number] [place] [address] 2546 Dec, [facility] [address] [facility] [id number] [place] [address] Nov, [facility] [place] [facility] [address] [id number] [place] [address] 67[address] Nov, [facility] [address] [facility] [id number] [place] [address] Nov, [facility] [address] [facility] [id number] [place] [address] Nov, [facility] [address] [facility] [id number] [place] [address] 2546 Nov, [facility] [place] [facility] [address] [id number] [place] [address] 2546 Oct, [facility] [place] [facility] [address] [id number] [place] [address] Oct, [facility] [place] [facility] [address] [id number] [place] [address] 2546 Oct, [facility] [place] [facility] [address] [facility] [id number] [place] [address] Aug, [facility] [place] [facility] [address] [id number] [place] [address] 2787 Aug, [facility] [place] [facility] [address] [id number] [place] [address] Jul, [facility] [place] [facility] [address] [id number] [place] [address]169 Jul, [facility] [place] [facility] [address] [id number] [place] [address] 160[address] Jul, [facility] [place] [facility] [address] [id number] [place] [address] Jul, [facility] [place] [facility] [address] [id number] [place] [address] Jul, [facility] [place] [facility] [address] [id number] [place] [address]149 Jul, [facility] [place] [facility] [address] [id number] [place] [address] Jul, [facility] [place] [facility] [address] [id number] [place] [address] Jul, [facility] [place] [facility] [address] [id number] [place] [address] May, [facility] [place] [facility] [address] [id number] [place] [address] February, [facility] [place] [facility] [address] [id number] [place] [address] 8086 Nov, [facility] [place] [facility] [address] [id number] [place] [address] 5661 Sep, [facility] [place] [facility] [address] [id number] [place] [address] 1134 Aug, [facility] [place] [facility] [address] [id number] [place] [address]863 14 Oct, 2009 [facility] [place] [facility] [address] [id number] [place] [address] Jul, [facility] [address] [facility] [id number] [place] [address] Jun, [facility] [address] [facility] [id number] [address] Mar, [facility] [address] [facility] [id number] [place] [address] 2546 Mar, [facility] [address] [facility] [id number] [address] Nov, IMMUNIZATIONS No Known Immunizations SOCIAL HISTORY [...]
--- OUTSIDE RECORDS SUMMARY | 2019-01-24 07:50 | XMS REPORT ---
Author Author FRANCESCO PHILLIPS [facility] Address [address] [place] [address] Care Team Providers Care Axle Polisher Name Role Phone FRANCESCO PHILLIPS Unavailable PROBLEMS Type Condition ICD9-CM Code ETT81-EB Code Onset Dates Condition Status SNOMED Code Problem Paroxysmal atrial fibrillation I48.0 Active 744035698 Problem Generalized anxiety disorder F41.1 Active 70878427 Problem Gastro-esophageal reflux disease without esophagitis K21.9 Active 954628262 Problem Chronic kidney disease, stage 1 N18.1 Active 685201303 Problem Secondary hyperparathyroidism of renal origin N25.81 Active 17009202 Problem 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 Active 494307910 Problem MDD (major depressive disorder), recurrent, in partial remission F33.41 Active 29773188 Problem Acquired hypothyroidism E03.9 Active 154233916 Problem Chronic diastolic heart failure I50.32 Active 722918851 Problem Arthritis M19.90 Active 1754585 Problem Depression F32.9 Active 36379828 Problem Anxiety F41.9 Active 01485584 Problem Chronic kidney disease (CKD) stage G1/A1, glomerular filtration rate ( GFR) equal to or greater than 90 mL/min/1.73 square meter and albuminuria creatinine ratio less than 30 mg/g N18.1 Active 977703256 Problem Atrial fibrillation, unspecified type I48.91 Active 66098926 ALLERGIES Substance Reaction Event Type Date Status morphine vomiting Drug Allergy Sep, Active Adhesive Tape itching, rash Drug Allergy Sep, Active ENCOUNTERS Encounter Location Date Diagnosis [facility] [address] [facility] [id number] [address] February, Medicare annual wellness visit, initial Z00.00 ; MDD (major depressive disorder), recurrent, in partial remission F33.41 ; Atrial fibrillation, unspecified type I48.91 ; Chronic diastolic heart failure I50.32 ; Secondary hyperparathyroidism of renal origin N25.81 ; Acquired hypothyroidism E03.9 ; Anxiety F41.9 ; Chronic kidney disease, stage 1 N18.1 and Encounter for immunization Z23 [place] [address] [address] February, Closed fracture of one rib of right side, initial encounter S22.31XA ; Acute cystitis with hematuria N30.01 ; Right flank pain R10.9 and Rib pain on right side R07.81 [place] [address] [address]- [address] Jan, Acquired hypothyroidism E03.9 ; 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 ; Chronic kidney disease (CKD) stage G1/A1, glomerular filtration rate (GFR) equal to or greater than 90 mL/min/1.73 square meter and albuminuria creatinine ratio less than 30 mg/g N18.1 ; Paroxysmal atrial fibrillation I48.0 ; Chronic diastolic heart failure I50.32 and Secondary hyperparathyroidism of renal origin N25.81 [place] [address] [address]- [address] Jan, Arthritis M19.90 [place] [address] [address]- [address] Jan, Paroxysmal atrial fibrillation I48.0 [place] [address] [address]70- 3[address] Jan, Paroxysmal atrial fibrillation I48.0 [place] [address] 68048- 3477 Jan, [place] [address] [address]- 7460 Jan, Generalized anxiety disorder F41.1 [place] [address] 33536- 0594 Jan, Generalized anxiety disorder F41.1 and MDD (major depressive disorder), recurrent, in partial remission F33.41 [place] [address] 97642- [address] Dec, Arthritis M19.90 [facility] [address] [place] [address] 10071- 3811 Dec, [facility] [address] [place] [id number] [place] [address] 36859- 0955 Nov, Arthritis M19.90 ; Chronic kidney disease (CKD) stage G1/A1 , glomerular filtration rate (GFR) equal to or greater than 90 mL/min/1.73 square meter and albuminuria creatinine ratio less than 30 mg/g N18.1 and Anxiety F41.9 [facility] [address] [place] [id number] [place] [address] 44052- 1628 Nov, [facility] [address] [place] [id number] [place] [address] 86004- 4484 Nov, [facility] [address] [place] [id number] [place] [address] 47481- 9489 Nov, [facility] [address] [place] [id number] [place] [address] 69645- 2949 Nov, [facility] [address] [place] [id number] [place] [address] 17779- 5761 Nov, [facility] [address] [place] [id number] [place] [address] 03065- 1149 Oct, Generalized anxiety disorder F41.1 [facility] [address] [place] [id number] [place] [address] 50452- 0254 Sep, Atrial fibrillation, unspecified type I48.91 [facility] [address] [place] [address] 51427- 5896 Sep, Generalized anxiety disorder F41.1 and MDD (major depressive disorder), recurrent, in partial remission F33.41 [facility] [address] [place] [id number] [place] [address] 66317- 7527 Sep, [facility] [address] [place] [id number] [place] [address] 34904- 3890 Aug, Generalized anxiety disorder F41.1 [facility] [address] [address] Aug, [facility] [address] [place] [id number] [place] [address] 63468- 8252 Aug, Paroxysmal atrial fibrillation I48.0 and Gastro-esophageal reflux disease without esophagitis K21.9 [facility] [address] [place] [id number] [place] [address] 20001- 4304 Jul, [facility] [address] [place] [id number] [place] [address] 15234- 2319 Jul, Generalized anxiety disorder F41.1 [place] [address] [place] [id number] [place] [address] 29665- 0944 Jun, Generalized anxiety disorder F41.1 and MDD (major depressive disorder), recurrent, in partial remission F33.41 [place] [address] [place] [id number] [place] [address] 09808- 1699 May, Recurrent major depressive disorder, in partial remission F33.41 [place] [address] [place] [id number] [place] [address] 67020- 5000 May, Anxiety F41.9 and Paroxysmal atrial fibrillation I48.0 [place] [address] [address] Apr, Generalized anxiety disorder F41.1 [place] [address] [address] 1146 Mar, [place] [address] [place] [address] 03457- 6674 Mar, Generalized anxiety disorder F41.1 and MDD (major depressive disorder), recurrent, in partial remission F33.41 [facility] [address] [address] February, Paroxysmal atrial fibrillation I48.0 and Anxiety F41.9 [facility] [address] [place] [address] 43182- 8360 February, MDD (major depressive disorder), recurrent, in partial remission F33.41 [facility] [address] [place] [address] 02223- 2547 Jan, [facility] [address] [address] Jan, [facility] [address] [place] [id number] [place] [address] 93788- 4844 Jan, [facility] [address] [place] [id number] [place] [address] 92922- 9549 Jan, [facility] [address] [place] [id number] [place] [address] 08962- 0506 Dec, [facility] [address] [place] [id number] [place] [address] 00415- 2031 Dec, Generalized anxiety disorder F41.1 [facility] [address] [place] [id number] [place] [address] 28788- 1084 Dec, Generalized anxiety disorder F41.1 and MDD (major depressive disorder), recurrent, in partial remission F33.41 [facility] [address] [place] [id number] [place] [address] 94736- 7137 Dec, [facility] [address] [place] [id number] [place] [address] 92704- 8231 Dec, [facility] [address] [place] [id number] [place] [address] 54849- 7327 Dec, [facility] [address] [place] [address] 69939- 8190 Nov, [facility] [address] [place] [id number] [place] [address] 60860- 5867 Nov, Gastro-esophageal reflux disease without esophagitis K21.9 [facility] [address] [place] [address] 67741- 0754 10 Nov, 2016 Atrial fibrillation, unspecified type I48.91 and Anxiety F41.9 [facility] [address] [place] [address] 63271- 6867 Oct, [facility] [address] [place] [id number] [place] [address] 68105- 7160 Oct, [facility] [address] [place] [id number] [place] [address] 15658- 5333 Oct, Depression F32.9 and Atrial fibrillation, unspecified type I48.91 [facility] [address] [place] [id number] [place] [address] 55330- 3223 Oct, [facility] [address] [place] [id number] [place] [address] 26732- 4350 Sep, Depression F32.9 [place] [address] [place] [id number] [place] [address] 52105- 9695 Sep, Recurrent major depressive disorder, in partial remission F33.41 and Generalized anxiety disorder F41.1 [facility] [address] [place] [id number] [place] [address] 15367- 0393 Sep, Paroxysmal atrial fibrillation I48.0 and Anxiety F41.9 [place] [address] [place] [id number] [place] [address] 17195- 5122 Sep, [place] [address] [place] [id number] [place] [address] 13206- 7832 Sep, [facility] [address] [place] [id number] [place] [address] 60627- 5306 Sep, Gastro-esophageal reflux disease without esophagitis K21.9 [facility] [address] [place] [id number] [place] [address] 67283- 0977 Aug, [facility] [address] [place] [id number] [place] [address] 43946- 2960 Aug, [facility] [address] [place] [id number] [place] [address] 13141- 1599 Aug, Atrial fibrillation, unspecified type I48.91 [place] [address] [place] [id number] [place] [address] 94860- 8349 11 Jul, 2016 Major depressive disorder, recurrent, in partial remission F33.41 and Generalized anxiety disorder F41.1 [place] [address] [place] [id number] [place] [address] 25737- 3137 11 Jul, 2016 [place] [address] [place] [id number] [place] [address] 39101- 1097 30 Jun, 2016 [place] [address] 45527- 5468 15 Jun, 2016 Bronchitis J40 and Memory loss R41.3 [place] [address] 57613- 6281 14 Jun, 2016 Upper respiratory infection with cough and congestion J06.9 [place] [address] [place] [id number] [place] [address] 60956- 1201 Apr, [place] [address] [place] [id number] [place] [address] 49191- 3138 Apr, Major depressive disorder, recurrent, unspecified F33.9 ; Anxiety F41.9 and Psychophysiological insomnia F51.04 [place] [address] [place] [id number] [place] [address] 96158- 1796 Mar, [place] [address] [place] [id number] [place] [address] 52309- 5842 Mar, [place] [address] [place] [id number] [place] [address] 37566- 9404 February, [place] [address] [place] [id number] [place] [address] 31981- 1064 Jan, Postural hypotension I95.1 [place] [address] [place] [id number] [place] [address] 35020- 7613 14 Jan, 2016 Recurrent major depressive disorder in remission F33.40 ; Generalized anxiety disorder F41.1 and Psychophysiological insomnia F51.04 [place] [address] [place] [id number] [place] [address] 13218- 9658 14 Dec, 2015 Generalized anxiety disorder F41.1 [facility] [address] [place] [address] 29374 -1741 Dec, Unspecified fall, initial encounter W19.XXXA [facility] [address] [place] [id number] [place] [address] 80905- 8877 05 Nov, 2015 Depression F32.9 and Anxiety F41.9 [facility] [address] [place] [id number] [place] [address] 79643- 0870 Oct, [place] [address] [place] [id number] [place] [address] 51562- 3712 Oct, [facility] [address] [place] [id number] [place] [address] 37692- 2722 Oct, Chronic kidney disease, stage 3 (moderate) N18.3 [place] [address] [place] [id number] [place] [address] 30805- 1823 Oct, Head contusion S00.93XA ; Cervical strain S16.1XXA and Arthritis M19.90 [place] [address] [place] [id number] [place] [address] 77475- 5983 Oct, Chronic kidney disease 585.9 [place] [address] [place] [id number] [place] [address] 50773- 8704 Oct, Chronic kidney disease 585.9 [place] [address] [place] [id number] [place] [address] 60120- 3321 Oct, [place] [address] [place] [id number] [place] [address] 08526- 6765 Sep, [place] [address] [place] [id number] [place] [address] 25951- 0502 Aug, Chronic kidney disease N18.9 [facility] [address] [place] [id number] [place] [address] 93822- 0172 Aug, Chronic kidney disease (CKD) stage G1/A1, glomerular filtration rate (GFR) equal to or greater than 90 mL/min/1.73 square meter and albuminuria creatinine ratio less than 30 mg/g N18.1 and GERD (gastroesophageal reflux disease) K21.9 [facility] [address] [place] [id number] [place] [address] 71823- 8596 Aug, [facility] [address] [place] [id number] [place] [address] 57632- 5718 Jun, Generalized anxiety disorder 300.02 ; Major depression, recurrent 296.30 and Persistent 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 [facility] [address] [place] [id number] [place] [address] 71023- 2412 Jun, [facility] [address] [place] [id number] [place] [address] 39699- 9229 May, [facility] [address] [place] [id number] [place] [address] 36000- 9514 May, Generalized anxiety disorder 300.02 and Depression, major, recurrent, in remission 296.35 [facility] [address] [place] [id number] [place] [address] 82041- 7508 May, [facility] [address] [place] [id number] [place] [address] 78509- 2111 May, [facility] [address] [place] [id number] [place] [address] 91023- 2561 May, [facility] [address] [place] [id number] [place] [address] 68122- 7137 May, [facility] [address] [place] [id number] [place] [address] 04898- 7494 May, Chronic kidney disease 585.9 [facility] [address] [place] [id number] [place] [address] 17687- 8766 Apr, Chronic kidney disease 585.9 [facility] [address] [place] [id number] [place] [address] 31765- 5895 Apr, [facility] [address] [place] [id number] [place] [address] 86137- 6736 Apr, Arthropathy 716.90 ; Hyperlipidemia 272.4 ; Hypothyroidism 244.9 and GERD (gastroesophageal reflux disease) 530.81 [facility] [address] [place] [address] 40232- 2346 Apr, Arthropathy 716.90 ; Hypothyroidism 244.9 ; Hyperlipidemia 272.4 and GERD (gastroesophageal reflux disease) 530.81 [facility] [address] [place] [id number] [place] [address] 10481- 1526 Mar, [facility] [address] [place] [id number] [place] [address] 65520- 3089 February, Depression, major, recurrent, in remission 296.35 and Generalized anxiety disorder 300.02 [facility] [address] [place] [id number] [place] [address] 14561- 2056 February, [facility] [address] [place] [id number] [place] [address] 99254- 5042 February, [facility] [address] [place] [address] 45824- 6631 Jan, [facility] [address] [place] [id number] [place] [address] 53334- 0271 Jan, [facility] [address] 7377 Oct, [facility] [address] [address]- 2256 Oct, [facility] [address] [address]- 0048 Oct, [facility] [address] [place] [address] 50117- 1917 Oct, [facility] [address] [address]- 3721 Oct, [facility] [address] [address]- 1316 Oct, [facility] [place] [facility] [address] [id number] [place] [address]- 9409 Sep, [facility] [place] [facility] [address] [id number] [place] [address]- 5501 Sep, [facility] [place] [facility] [address] [id number] [place] [address]- 8930 Aug, [facility] [place] [facility] [address] [id number] [place] [address]- 1079 Aug, [facility] [place] [facility] [address] [id number] [place] [address]- 7220 Aug, [facility] [place] [facility] [address] [id number] [place] [address]- 8894 Aug, [facility] [place] [facility] [address] [id number] [place] [address]- 5272 Jul, [facility] [place] [facility] [address] [id number] [place] [address]- 7257 Jul, [facility] [place] [facility] [address] [id number] [place] [address]- 8838 Jul, [facility] [place] [facility] [address] [id number] [place] [address]- 1267 Jul, [facility] [place] [facility] [address] [id number] [place] [address]- 4533 29 Jun, 2014 [facility] [place] [facility] [address] [id number] [place] [address]- 4513 22 Jun, 2014 [facility] [place] [facility] [address] [id number] [place] [address]- 7393 22 Jun, 2014 [facility] [place] [facility] [address] [id number] [place] [address]- 6784 10 Jun, 2014 [facility] [place] [facility] [address] [id number] [place] [address]- 9819 10 Jun, 2014 [facility] [place] [facility] [address] [id number] [place] [address]- 2115 Jun, [facility] [place] [facility] [address] [id number] [place] [address]- 2088 Jun, [facility] [place] [facility] [address] [id number] [place] [address]- 1411 May, [facility] [place] [facility] [address] [id number] [place] [address]- 8880 May, [facility] [place] [facility] [address] [id number] [place] [address]- 0559 May, [facility] [place] [facility] [address] [id number] [place] [address]- 4906 May, [facility] [place] [facility] [address] [id number] [place] [address]- 8876 Apr, [facility] [place] [facility] [address] [id number] [place] [address]- 9897 Apr, [facility] [place] [facility] [address] [id number] [place] [address]- 6879 Apr, [facility] [place] [facility] [address] [id number] [place] [address]- 7758 Apr, [facility] [place] [facility] [address] [id number] [place] [address]- 7346 Apr, [facility] [place] [facility] [address] [id number] [place] [address]- 0456 Apr, [facility] [place] [facility] [address] [id number] [place] [address]- 6110 Apr, [facility] [place] [facility] [address] [id number] [place] [address]- 1517 Apr, [facility] [place] [facility] [address] [id number] [place] [address]- 2429 Mar, [facility] [place] [facility] [address] [id number] [place] [address]- 5128 Mar, [facility] [place] [facility] [address] [id number] [place] [address]- 0715 Mar, [facility] [place] [facility] [address] [id number] [place] [address]- 4691 Mar, [facility] [place] [facility] [address] [id number] [place] [address]- 3489 Mar, [facility] [place] [facility] [address] [id number] [place] [address]- 6748 Mar, [facility] [place] [facility] [address] [id number] [place] [address]- 7306 Mar, [facility] [place] [facility] [address] [id number] [place] [address]- 7044 Mar, [facility] [place] [facility] [address] [id number] [place] [address]- 4105 Dec, [facility] [place] [facility] [address] [id number] [place] [address]- 6568 Dec, [facility] [place] [facility] [address] [id number] [place] [address]- 5647 Dec, [facility] [place] [facility] [address] [id number] [place] [address]- 9133 Dec, [facility] [place] [facility] [address] [id number] [place] [address]- 6159 Dec, [facility] [place] [facility] [address] [id number] [place] [address]- 0337 Dec, [facility] [place] [facility] [address] [id number] [place] [address]- 3334 Dec, [facility] [place] [facility] [address] [id number] [place] 3363 Dec, [facility] [place] [facility] [address] [id number] [place] [address]- 0824 Nov, [facility] [place] [facility] [address] [id number] [place] [address]- 2731 Nov, [facility] [place] [facility] [address] [id number] [place] [address]- 3023 Nov, [facility] [place] [facility] [address] [id number] [place] [address]- 5068 Nov, 2013 [facility] [place] [facility] [address] [id number] [place] [address]- 4271 Nov, [facility] [place] [facility] [address] [id number] [place] [address]- 1466 Nov, 2013 [facility] [place] [facility] [address] [id number] [place] [address] Nov, [facility] [place] [facility] [address] [facility] [id number] [place] [address] Nov, [facility] [place] [facility] [address] [facility] [id number] [place] [address] Aug, [facility] [place] [facility] [address] [id number] [place] [address] Aug, [facility] [place] [facility] [address] [id number] [place] [address] Jul, [facility] [place] [facility] [address] [facility] [id number] [place] [address] Jul, [facility] [place] [facility] [address] [facility] [id number] [place] [address] 02 Jul, 2013 [facility] [place] [facility] [address] [id number] [place] [address] 30 Jun, 2013 [facility] [place] [facility] [address] [id number] [place] [address] 30 Jun, 2013 [facility] [place] [facility] [address] [facility] [id number] [place] [address] 24 Jun, 2013 [facility] [place] [facility] [address] [facility] [id number] [place] [address] 04 Jun, 2013 [facility] [place] [facility] [address] [id number] [place] [address] Jun, [facility] [address] [id number] [place] [address] May, [facility] [address] [id number] [place] [address] Apr, [facility] [address] [id number] [place] [address] Apr, [facility] [address] [id number] [place] [address] Apr, [facility] [address] [id number] [place] [address] Mar, [facility] [address] [id number] [place] [address] Mar, [facility] [address] [id number] [place] [address] February, [facility] [address] [id number] [place] [address] February, [facility] [address] [id number] [place] [address] February, [facility] [address] [id number] [place] [address] February, [facility] [address] [id number] [place] [address] Jan, [facility] [address] [id number] [place] [address] Jan, [facility] [address] [id number] [place] [address] Jan, [facility] [address] [id number] [place] [address] Jan, [facility] [address] [id number] [place] [address] Dec, [facility] [address] [id number] [place] [id number] 13 Dec, 2012 [facility] [place] [facility] [address] [id number] [place] [address] Dec, [facility] [place] [facility] [address] [id number] [place] [address] 22 Nov, 2012 [facility] [place] [facility] [address] [id number] [place] [address] 15 Nov, 2012 [facility] [address] [id number] [place] [address] Nov, [facility] [address] [id number] [place] [address] Oct, [facility] [address] [id number] [place] [address] Oct, [facility] [address] [id number] [place] [address] Sep, [facility] [address] [id number] [place] [address] Sep, [facility] [address] [id number] [place] [address] Sep, [facility] [place] [facility] [address] [id number] [place] [address] Sep, [facility] [place] [facility] [address] [id number] [place] [address] Sep, [facility] [place] [facility] [address] [id number] [place] [address] Aug, [facility] [place] [facility] [address] [id number] [place] [address] Aug, [facility] [place] [facility] [address] [id number] [place] [address] Aug, [facility] [place] [facility] [address] [id number] [place] [address] Aug, [facility] [place] [facility] [address] [id number] [place] [address] Aug, [facility] [place] [facility] [address] [id number] [place] [address] Aug, [facility] [place] [facility] [address] [id number] [place] [address] Jun, [facility] [place] [facility] [address] [id number] [place] [address] Jun, [facility] [place] [facility] [address] [id number] [place] [address] Jun, [facility] [place] [facility] [address] [id number] [place] [address] May, [facility] [place] [facility] [address] [id number] [place] [address] May, [facility] [place] [facility] [address] [id number] [place] [address] May, [facility] [place] [facility] [address] [id number] [place] [address] May, [facility] [place] [facility] [address] [id number] [place] [address] Apr, [facility] [place] [facility] [address] [id number] [place] [address] Mar, [facility] [place] [facility] [address] [id number] [place] [address] Mar, [facility] [place] [facility] [address] [id number] [place] [address] Mar, [facility] [place] [facility] [address] [id number] [place] [address] February, [facility] [place] [facility] [address] [id number] [place] [address] February, [facility] [place] [facility] [address] [id number] [place] [address] February, [facility] [address] [id number] [place] [address] February, [facility] [place] [facility] [address] [id number] [place] [address] Dec, [facility] [place] [facility] [address] [id number] [place] [address]41 Dec, [facility] [place] [facility] [address] [id number] [place] [address] Dec, [facility] [place] [facility] [address] [id number] [place] [address] Dec, [facility] [place] [facility] [address] [id number] [place] [address] Nov, [facility] [place] [facility] [address] [id number] [place] [address] Nov, [facility] [place] [facility] [address] [id number] [place] [address] Nov, [facility] [place] [facility] [address] [facility] [id number] [place] [address] Nov, [facility] [place] [facility] [address] [facility] [id number] [place] [address] Nov, [facility] [place] [facility] [address] [id number] [place] [address] Oct, [facility] [place] [facility] [address] [id number] [place] [address] Oct, [facility] [place] [facility] [address] [id number] [place] [address] Oct, [facility] [place] [facility] [address] [id number] [place] [address] Aug, [facility] [place] [facility] [address] [id number], [place] [address] Aug, [facility] [place] [facility] [address] [id number] [place] [address] Jul, [facility] [place] [facility] [address] [id number] [place] [address] Jul, [facility] [place] [facility] [address] [id number] [place] [address] 1707 Jul, [facility] [place] [facility] [address] [id number] [place] [address] Jul, [facility] [place] [facility] [address] [id number] [place] [address] Jul, [facility] [place] [facility] [address] [id number] [place] [address] 78[address] Jul, [facility] [place] [facility] [address] [id number] [place] [address] Jul, [facility] [place] [facility] [address] [id number] [place] [address] Jul, [facility] [place] [facility] [address] [id number] [place] [address] 1387 May, [facility] [place] [facility] [address] [id number] [place] [address] 15[address] February, [facility] [place] [facility] [address] [id number] [place] [address] 97[address] Nov, [facility] [place] [facility] [address] [id number] [place] [address] Sep, [facility] [place] [facility] [address] [id number] [place] [address] 27[address] Aug, [facility] [place] [facility] [address] [id number] [place] [address] Oct, [facility] [place] [facility] [address] [id number] [place] [address] 80[address] Jul, [facility] [place] [facility] [address] [facility] [id number], [place] [address] Jun, [facility] [address] [facility] [id number], [place] [address] Mar, [facility] [address] [facility] [id number], [place] [address] Mar, [facility] [address] [facility] [id number], [place] [address] Nov, IMMUNIZATIONS No Known Immunizations SOCIAL HISTORY Never Assessed REASON FOR VISIT [facility] PLAN OF CARE Activity Details Follow Up 3 Months Reason: VITAL SIGNS Height 66 in 2017-10-21 Weight 133 lbs 2017-10-21 Temperature 97.9 degrees Fahrenheit 2017-10-21 Heart Rate 90 bpm 2017-10-21 Respiratory Rate 20 2017-10-21 BMI 21.46 kg/m2 2017-10-21 Blood pressure systolic 128 mmHg 2017-10-21 Blood pressure diastolic 80 mmHg 2017-10-21 MEDICATIONS Medication Instructions Dosage Frequency Start Date End Date Duration Status Lasix 40 mg Orally every other day 1/2 tablet Active Iron (Ferrous Gluconate) 256 (28 Fe) MG Active Toprol XL 25 MG Orally Once a day 1 tablet 24h Active Aspir-Low 81 MG Orally three times weekly 1 tablet Active Polyethylene Glycol 3350 Orally 2 times a day MIX 17 GRAMS IN 8 OZ OF SUITABLE LIQUID 12h 30 Active Docusate Sodium 50 MG Orally 2 times a day 1 capsule as needed 12h Active Metoclopramide HCl 5MG Orally 3 times a day 1 tablet 8h 90 days Active Eliquis 2.5 MG Orally 2 times a day 1 tablet 12h Active BuPROPion HCl ER (XL) 300 MG Orally Once a day TAKE ONE TABLET BY MOUTH ONCE DAILY 24h Active Omeprazole 20 mg Orally Once a day 1 capsule 24h 28 Apr, 2014 90 days Active Alprazolam 2 MG Orally 3 times a day 1 tablet 8h Active Levothyroxine Sodium 25 MCG TAKE ONE TABLET BY MOUTH DAILY 30 Active RESULTS No Results PROCEDURES Procedure Date Ordered Result Body Site EKG, TRACING 2017-10-21 N/A [facility] VISIT ESTABLISHED PATIENT Oct 21, 2017 INSTRUCTIONS MEDICATIONS ADMINISTERED No Known Medications [...]
--- OUTSIDE RECORDS SUMMARY | 2019-01-24 07:50 | XMS REPORT ---
Author Author HANDY ARI [facility] Address [address] [place] [address] Care Team Providers Care Steward/Stewardess Chief Cargo Vessel Name Role Phone ARI MURRELL Unavailable PROBLEMS Type Condition ICD9-CM Code [id number] Code Onset Dates Condition Status SNOMED Code Problem Chronic kidney disease (CKD) stage G1/A1, glomerular filtration rate ( GFR) equal to or greater than 90 mL/min/1.73 square meter and albuminuria creatinine ratio less than 30 mg/g N18.1 Active 061815232 Problem Depression F32.9 Active 12498935 Problem Arthritis M19.90 Active 5934601 Problem MDD (major depressive disorder), recurrent, in partial remission F33.41 Active 53396941 Problem Generalized anxiety disorder F41.1 Active 11163242 Problem Atrial fibrillation, unspecified type I48.91 Active 98414023 Problem Anxiety F41.9 Active 61743618 Problem Gastro-esophageal reflux disease without esophagitis K21.9 Active 060629828 Problem Paroxysmal atrial fibrillation I48.0 Active [id number] ALLERGIES No Information ENCOUNTERS Encounter Location Date Diagnosis [place] [id number] [place] [address] 95466- 2574 Apr, [facility] [id number] [place] [address] 38060- 7706 February, Medicare annual wellness visit, initial Z00.00 [facility] [id number] [place] [address] 80420- 2934 Jan, [place] [address] 81739- 7001 Jan, Paroxysmal atrial fibrillation I48.0 [place] [id number] [place] [address] 63923- 7239 Jan, Paroxysmal atrial fibrillation I48.0 [facility] [id number] [place] [address] 57495- 6524 Jan, [facility] [id number] [place] [address] 31245- 8037 Jan, Generalized anxiety disorder F41.1 [facility] [id number] [place] [address] 25565- 6228 Jan, Generalized anxiety disorder F41.1 and MDD (major depressive disorder), recurrent, in partial remission F33.41 [facility] [id number] [place] [address] 62613- 3031 Dec, Arthritis M19.90 [facility] [id number] [place] [address] 87811- 5957 Dec, [facility] [id number] [place] [address] 26856- 7828 Nov, Arthritis M19.90 ; Chronic kidney disease (CKD) stage G1/A1 , glomerular filtration rate (GFR) equal to or greater than 90 mL/min/1.73 square meter and albuminuria creatinine ratio less than 30 mg/g N18.1 and Anxiety F41.9 [place] [id number] [place] [address] 73076- 1119 Nov, [facility] [id number] [place] [address] 53176- 2481 Nov, [facility] [id number] [place] [address] 28240- 2472 Nov, [facility] [id number] [place] [address] 36032- 4746 Nov, [facility] [id number] [place] [address] 36208- 4557 Nov, [facility] [id number] [place] [address] 69247- 8008 Oct, Generalized anxiety disorder F41.1 [facility] [address] [address]- 5583 Sep, Atrial fibrillation, unspecified type I48.91 [place] [id number] [place] [address] 50688- 6066 Sep, Generalized anxiety disorder F41.1 and MDD (major depressive disorder), recurrent, in partial remission F33.41 [place] [id number] [place] [address] 46534- 8213 Sep, [place] [id number] [place] [address] 39356- 6098 Aug, Generalized anxiety disorder F41.1 [place] [id number] [place] [address] 81285- 3944 Aug, [place] [id number] [place] [address] 27250- 3036 Aug, Paroxysmal atrial fibrillation I48.0 and Gastro-esophageal reflux disease without esophagitis K21.9 [place] [id number] [place] [address] 00726- 3732 Jul, [place] [id number] [place] [address] 88036- 9985 Jul, Generalized anxiety disorder F41.1 [place] [id number] [place] [address] 91967- 5917 Jun, Generalized anxiety disorder F41.1 and MDD (major depressive disorder), recurrent, in partial remission F33.41 [place] [id number] [place] [address] 27892- 6602 May, Recurrent major depressive disorder, in partial remission F33.41 [place] [id number] [place] [address] 09462- 0073 May, Anxiety F41.9 and Paroxysmal atrial fibrillation I48.0 [place] [id number] [place] [address] 21914- 3126 Apr, Generalized anxiety disorder F41.1 [facility] [address] [address]- 5666 Mar, [facility] [id number] [place] [address] 92111- 4546 Mar, Generalized anxiety disorder F41.1 and MDD (major depressive disorder), recurrent, in partial remission F33.41 [facility] [id number] [place] [address] 87711- 5306 February, Paroxysmal atrial fibrillation I48.0 and Anxiety F41.9 [facility] [id number] [place] [address] 63381- 1988 February, MDD (major depressive disorder), recurrent, in partial remission F33.41 [facility] [address] [place] [address]- 2466 Jan, [facility] [id number] [place] [address] 12972 -7226 Jan, [facility] [address] [address]- 2919 Jan, [facility] [id number] [place] [address] 27449- 0001 Jan, [facility] [address] [address]- 2738 Dec, [facility] [address] [address] 2546 Dec, Generalized anxiety disorder F41.1 [facility] [address] [address]- 7026 Dec, Generalized anxiety disorder F41.1 and MDD (major depressive disorder), recurrent, in partial remission F33.41 [facility] [address] [address]- 5766 15 Dec, 2016 [facility] [id number] [place] [address] 33844- 6356 Dec, [facility] [id number] [place] [address] 63607- 4246 Dec, [facility] [id number] [place] [address] 34951- 2562 28 Nov, 2016 [facility] [id number] [place] [address] 66420- 2297 Nov, Gastro-esophageal reflux disease without esophagitis K21.9 [facility] [id number] [place] [address] 65001- 4624 10 Nov, 2016 Atrial fibrillation, unspecified type I48.91 and Anxiety F41.9 [facility] [id number] [place] [address] 82831- 2775 Oct, [facility] [id number] [place] [address] 36644- 8730 Oct, [facility] [id number] [place] [address] 51542- 5766 Oct, Depression F32.9 and Atrial fibrillation, unspecified type I48.91 [place] [id number] [place] [address] 26999- 8664 Oct, [facility] [id number] [place] [address] 67813- 8632 Sep, Depression F32.9 [facility] [id number] [place] [address] 30754- 2709 Sep, Recurrent major depressive disorder, in partial remission F33.41 and Generalized anxiety disorder F41.1 [facility] [id number] [place] [address] 82170- 9022 Sep, Paroxysmal atrial fibrillation I48.0 and Anxiety F41.9 [facility] [id number] [place] [address] 37669- 2536 Sep, [facility] [id number] [place] [address] 27872- 0943 Sep, [place] [id number] [place] [address] 87404- 0721 Sep, Gastro-esophageal reflux disease without esophagitis K21.9 [facility] [id number] [place] [address] 96668- 3041 Aug, [facility] [address] 56320- 9068 Aug, [place] [address] 32330- 0717 Aug, Atrial fibrillation, unspecified type I48.[address] 866043- 5137 Jul, Major depressive disorder, recurrent, in partial remission F33.41 and Generalized anxiety disorder F41.1 [place] [address] 39275- 4828 Jul, [place] [address] 05933- 4953 30 Jun, 2016 [place] [address] 70045- 4707 15 Jun, 2016 Bronchitis J40 and Memory loss R41.3 [place] [id number] [place] [address] 76519- 3117 14 Jun, 2016 Upper respiratory infection with cough and congestion J06.9 [place] [id number] [place] [address] 66161- 9327 Apr, [place] [id number] [place] [address] 11792- 0377 Apr, Major depressive disorder, recurrent, unspecified F33.9 ; Anxiety F41.9 and Psychophysiological insomnia F51.04 [place] [id number] [place] [address] 16007- 8515 Mar, [place] [address] 65933- 0680 Mar, [facility] [id number] [place] [address] 22978- 3136 February, [facility] [id number] [place] [address] 05822- 0589 Jan, Postural hypotension I95.1 [facility] [id number] [place] [address] 31184- 3998 Jan, Recurrent major depressive disorder in remission F33.40 ; Generalized anxiety disorder F41.1 and Psychophysiological insomnia F51.04 [facility] [id number] [place] [address] 15638- 2392 Dec, Generalized anxiety disorder F41.1 [facility] [id number] [place] [address] 30922 -4232 Dec, Unspecified fall, initial encounter W19.XXXA [place] [address] 93926- 0228 Nov, Depression F32.9 and Anxiety F41.9 [place] [id number] [place] [address] 24608- 4701 Oct, [place] [id number] [place] [address] 51428- 1416 Oct, [place] [id number] [place] [address] 34804- 5488 Oct, Chronic kidney disease, stage 3 (moderate) N18.3 [place] [id number] [place] [address] 27272- 2349 Oct, Head contusion S00.93XA ; Cervical strain S16.1XXA and Arthritis M19.90 [place] [id number] [place] [address] 71240- 9298 Oct, Chronic kidney disease 585.9 [place] [id number] [place] [address] 03839- 2373 Oct, Chronic kidney disease 585.9 [facility] [id number] [place] [address] 05844- 6751 Oct, [facility] [id number] [place] [address] 21040- 2384 Sep, [facility] [id number] [place] [address] 00881- 0505 Aug, Chronic kidney disease N18.9 [facility] [id number] [place] [address] 50838- 6667 Aug, Chronic kidney disease (CKD) stage G1/A1, glomerular filtration rate (GFR) equal to or greater than 90 mL/min/1.73 square meter and albuminuria creatinine ratio less than 30 mg/g N18.1 and GERD (gastroesophageal reflux disease) K21.9 [place] [id number] [place] [address] 31412- 7119 Aug, [facility] [address] 96592- 8380 Jun, Generalized anxiety disorder 300.02 ; Major depression, recurrent 296.30 and Persistent 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 [place] [id number] [place] [address] 95474- 1588 Jun, [place] [id number] [place] [address] 46747- 2520 May, [facility] [id number] [place] [address] 42074- 5307 May, Generalized anxiety disorder 300.02 and Depression, major, recurrent, in remission 296.35 [facility] [id number] [place] [address] 33304- 9316 May, [facility] [id number] [place] [address] 10604- 5013 May, [facility] [id number] [place] [address] 24671- 7810 May, [facility] [address] [address]- 4420 May, [facility] [id number] [place] [address] 21185- 2715 May, Chronic kidney disease 585.9 [facility] [address] [place] [address] 00713- 7785 Apr, Chronic kidney disease 585.9 [facility] [id number] [place] [address] 10495- 0771 Apr, [facility] [id number] [place] [address] 85614- 7086 Apr, Arthropathy 716.90 ; Hyperlipidemia 272.4 ; Hypothyroidism 244.9 and GERD (gastroesophageal reflux disease) 530.81 [facility] [id number] [place] [address] 51610- 8707 Apr, Arthropathy 716.90 ; Hypothyroidism 244.9 ; Hyperlipidemia 272.4 and GERD (gastroesophageal reflux disease) 530.81 [facility] [address] [place] [address] 04719- 4594 Mar, [facility] [id number] [place] [address] 68907- 8571 February, Depression, major, recurrent, in remission 296.35 and Generalized anxiety disorder 300.02 [facility] [address] [place] [address] 05271- 3670 February, [facility] [id number] [place] [address] 95105- 1029 February, [facility] [id number] [place] [address] 46483- 5844 Jan, [facility] [id number] [place] [address] 19425- 3261 Jan, [facility] [address] [address]- 4880 Oct, [facility] [place] [facility] [address] [id number] [place] [address]- 9877 Oct, [facility] [place] [facility] [address] [id number] [place] 9704 Oct, [facility] [place] [facility] [address] [id number] [place] [address]- 2373 Oct, [facility] [place] [facility] [address] [id number] [place] [address]- 4123 Oct, [facility] [place] [facility] [address] [id number] [place] [address]- 2275 Oct, [facility] [place] [facility] [address] [id number] [place] [address]- 8346 Sep, [facility] [place] [facility] [address] [id number] [place] [address]- 2849 Sep, [facility] [place] [facility] [address] [id number] [place] [address]- 7012 Aug, [facility] [place] [facility] [address] [id number] [place] [address]- 4742 Aug, [facility] [place] [facility] [address] [id number] [place] [address]- 3556 Aug, [facility] [place] [facility] [address] [id number] [place] [address]- 3214 Aug, [facility] [place] [facility] [address] [id number] [place] [address]- 7754 Jul, [facility] [place] [facility] [address] [id number] [place] [address]- 6345 Jul, [facility] [place] [facility] [address] [id number] [place] [address]- 7849 Jul, [facility] [place] [facility] [address] [id number] [place] [address]- 5076 Jul, [facility] [place] [facility] [address] [id number] [place] [address]- 5184 Jun, [facility] [place] [facility] [address] [id number] [place] [address]- 4590 Jun, [facility] [place] [facility] [address] [id number] [place] [address]- 0887 Jun, [facility] [place] [facility] [address] [id number] [place] [address]- 8378 Jun, [facility] [place] [facility] [address] [id number] [place] [address]- 3890 Jun, [facility] [place] [facility] [address] [id number] [place] [address]- 4848 Jun, [facility] [place] [facility] [address] [id number] [place] [address]- 6157 Jun, [facility] [place] [facility] [address] [id number] [place] [address]- 5883 May, [facility] [place] [facility] [address] [id number] [place] [address]- 6808 May, [facility] [place] [facility] [address] [id number] [place] [address]- 9919 May, [facility] [place] [facility] [address] [id number] [place] [address]- 5782 May, [facility] [place] [facility] [address] [id number] [place] [address]- 2049 Apr, [facility] [place] [facility] [address] [id number] [place] [address]- 5068 Apr, [facility] [place] [facility] [address] [id number] [place] [address]- 5204 Apr, [facility] [place] [facility] [address] [id number] [place] [address]- 0188 Apr, [facility] [place] [facility] [address] [id number] [place] [address]- 3827 Apr, [facility] [place] [facility] [address] [id number] [place] [address]- 7862 Apr, [facility] [place] [facility] [address] [id number] [place] [address]- 6040 Apr, [facility] [place] [facility] [address] [id number] [place] [address]- 1531 Apr, [facility] [place] [facility] [address] [id number] [place] [address]- 9071 Mar, [facility] [place] [facility] [address] [id number] [place] [address]- 6131 Mar, [facility] [place] [facility] [address] [id number] [place] [address]- 3336 Mar, [facility] [place] [facility] [address] [id number] [place] [address]- 6527 Mar, [facility] [place] [facility] [address] [id number] [place] [address]- 2735 Mar, [facility] [place] [facility] [address] [id number] [place] [address]- 4061 Mar, [facility] [place] [facility] [address] [id number] [place] [address]- 1986 Mar, [facility] [place] [facility] [address] [id number] [place] [address]- 2974 Mar, [facility] [place] [facility] [address] [id number] [place] [address]- 7396 Dec, [facility] [place] [facility] [address] [id number] [place] [address]- 5895 Dec, [facility] [place] [facility] [address] [id number] [place] [address]- 1245 Dec, [facility] [place] [facility] [address] [id number] [place] [address]- 7705 Dec, [facility] [place] [facility] [address] [id number] [place] [address]- 3820 Dec, [facility] [place] [facility] [address] [id number] [place] [address]- 1457 Dec, [facility] [place] [facility] [address] [id number] [place] [address]- 1518 Dec, [facility] [place] [facility] [address] [id number] [place] [address]- 4075 Dec, [facility] [place] [facility] [address] [id number] [place] [address]- 3972 Nov, [facility] [place] [facility] [address] [id number] [place] [address]- 3372 Nov, [facility] [place] [facility] [address] [id number] [place] [address]- 6940 Nov, [facility] [place] [facility] [address] [id number] [place] [address]- 0242 Nov, [facility] [place] [facility] [address] [id number] [place] [address]- 8198 Nov, [facility] [place] [facility] [address] [id number] [place] [address]- 1751 Nov, [facility] [place] [facility] [address] [id number] [place] [address]- 6439 Nov, [facility] [place] [facility] [address] [id number] [place] [address]- 1646 Nov, [facility] [place] [facility] [address] [id number] [address]- 9110 Aug, [facility] [place] [facility] [address] [id number] [place] [address]- 5780 Aug, [facility] [place] [facility] [address] [id number] [place] [address]- 8581 Jul, [facility] [place] [facility] [address] [id number] [place] [address] Jul, [facility] [place] [facility] [address] [id number] [place] [address] Jul, [facility] [address] [id number] [place] [address] 30 Jun, 2013 [facility] [place] [facility] [address] [id number] [place] [address] 30 Jun, 2013 [facility] [address] [id number] [place] [address] 24 Jun, 2013 [facility] [place] [facility] [address] [id number] [place] [address] Jun, [facility] [address] [id number] [place] [address] Jun, [facility] [address] [id number] [place] [address] May, [facility] [address] [id number] [place] [address] Apr, [facility] [address] [id number] [place] [address] Apr, [facility] [place] [facility] [address] [id number] [place] [address] Apr, [facility] [address] [id number] [place] [address] Mar, [facility] [place] [facility] [address] [id number] [place] [address] Mar, [facility] [place] [facility] [address] [id number] [place] [address] February, [facility] [place] [facility] [address] [id number] [place] [address] February, [facility] [place] [facility] [address] [id number] [place] [address] February, [facility] [place] [facility] [address] [id number] [place] [address] February, [facility] [place] [facility] [address] [id number] [place] [address] Jan, [facility] [address] [id number] [place] [address] Jan, [facility] [address] [id number] [place] [address] Jan, [facility] [address] [id number] [place] [address] 04 Jan, 2013 [facility] [address] [id number] [place] [address] Dec, [facility] [address] [id number] [place] [address] Dec, [facility] [address] [id number] [place] [address] Dec, [facility] [address] [id number] [place] [address] Nov, [facility] [address] [id number] [place] [address] 1989 Nov, [facility] [address] [id number] [place] [address] Nov, [facility] [address] [id number] [place] [address] Oct, [facility] [address] [id number] [place] [address] Oct, [facility] [address] [id number] [place] [address] Sep, [facility] [address] [id number] [place] [address] Sep, [facility] [address] [id number] [place] [address] Sep, [facility] [address] [id number] [place] [address] Sep, [facility] [place] [facility] [address] [id number] [place] [address] Sep, [facility] [place] [facility] [address] [id number] [place] [address] Aug, [facility] [place] [facility] [address] [facility] [id number] [place] [address] Aug, [facility] [place] [facility] [address] [id number] [place] [address] Aug, [facility] [place] [facility] [address] [id number] [place] [address]- [address] Aug, [facility] [place] [facility] [address] [id number] [place] [address] Aug, [facility] [place] [facility] [address] [id number] [place] [address] Aug, [facility] [place] [facility] [address] [id number] [place] [address] Jun, [facility] [place] [facility] [address] [id number] [place] [address] Jun, [facility] [place] [facility] [address] [facility] [id number] [place] [address] Jun, [facility] [place] [facility] [address] [id number] [place] [address] May, [facility] [place] [facility] [address] [id number] [place] [address] May, [facility] [place] [facility] [address] [id number] [place] [address] May, [facility] [place] [facility] [address] [facility] [id number] [place] [address] May, [facility] [place] [facility] [address] [facility] [id number] [place] [address] Apr, [facility] [place] [facility] [address] [id number] [place] [address] Mar, [facility] [place] [facility] [address] [id number] [place] [address] Mar, [facility] [place] [facility] [address] [id number] [place] [address] 1996 Mar, [facility] [place] [facility] [address] [id number] [place] [address] February, [facility] [place] [facility] [address] [id number] [place] [address] February, [facility] [place] [facility] [address] [id number] [place] [address] February, [facility] [place] [facility] [address] [id number] [place] [address] February, [facility] [place] [facility] [address] [id number] [place] [address] Dec, [facility] [place] [facility] [address] [id number] [place] [address] Dec, [facility] [place] [facility] [address] [id number] [place] [address] Dec, [facility] [place] [facility] [address] [id number] [place] [address] Dec, [facility] [place] [facility] [address] [id number] [place] [address] Nov, [facility] [place] [facility] [address] [id number] [place] [address] Nov, [facility] [place] [facility] [address] [id number] [place] [address] Nov, [facility] [place] [facility] [address] [id number] [place] [address] 08 Nov, 2011 [facility] [place] [facility] [address] [id number] [place] [address] Nov, [facility] [place] [facility] [address] [id number] [place] [address] Oct, [facility] [place] [facility] [address] [id number] [place] [address] Oct, [facility] [place] [facility] [address] [id number] [place] [address] Oct, [facility] [place] [facility] [address] [id number] [place] [address] Aug, [facility] [place] [facility] [address] [id number] [place] [address] Aug, [facility] [place] [facility] [address] [id number] [place] [address] Jul, [facility] [place] [facility] [address] [id number] [place] [address] Jul, [facility] [place] [facility] [address] [id number] [place] [address] Jul, [facility] [place] [facility] [address] [id number] [place] [address] Jul, [facility] [place] [facility] [address] [id number] [place] [address] Jul, [facility] [place] [facility] [address] [id number] [place] [address] Jul, [facility] [place] [facility] [address] [id number] [place] [address] Jul, [facility] [place] [facility] [address] [id number] [place] [address] Jul, [facility] [place] [facility] [address] [id number] [place] [address] May, [facility] [place] [facility] [address] [id number] [place] [address] February, [facility] [place] [facility] [address] [id number] [address] 11 Nov, 2010 [facility] [address] [id number] [address] Sep, [facility] [id number] [address] Aug, [facility] [address] [id number] [address] Oct, [facility] [id number] [address] Jul, [facility] [id number] [address] Jun, [facility] [id number] [address] Mar, [facility] [id number] [address] Mar, [facility] [address] [id number] [address] 17 Nov, 2008 IMMUNIZATIONS No Known Immunizations SOCIAL HISTORY Never Assessed REASON FOR VISIT med refill PLAN OF CARE VITAL SIGNS MEDICATIONS Medication Instructions Dosage Frequency Start Date End Date Duration Status Wellbutrin XL 300 MG Orally Once a day 1 tablet 24h 30 days Active RESULTS No Results [...]
--- OUTSIDE RECORDS SUMMARY | 2019-01-24 07:51 | XMS REPORT ---
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 Machine Name Role Phone FRANCESCO PHILLIPS Unavailable PROBLEMS Type Condition ICD9-CM Code ZBD39-GM Code Onset Dates Condition Status SNOMED Code Problem Paroxysmal atrial fibrillation I48.0 Active 368280442 Problem Generalized anxiety disorder F41.1 Active 12544773 Problem Gastro-esophageal reflux disease without esophagitis K21.9 Active 972109539 Problem Chronic kidney disease, stage 1 N18.1 Active 204643910 Problem Secondary hyperparathyroidism of renal origin N25.81 Active 53725655 Problem 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 Active 581649534 Problem MDD (major depressive disorder), recurrent, in partial remission F33.41 Active 41867756 Problem Acquired hypothyroidism E03.9 Active 754422702 Problem Chronic diastolic heart failure I50.32 Active 895989603 Problem Arthritis M19.90 Active 2326078 Problem Depression F32.9 Active 91962923 Problem Anxiety F41.9 Active 45090043 Problem Chronic kidney disease (CKD) stage G1/A1, glomerular filtration rate ( GFR) equal to or greater than 90 mL/min/1.73 square meter and albuminuria creatinine ratio less than 30 mg/g N18.1 Active 514890080 Problem Atrial fibrillation, unspecified type I48.91 Active 06167279 ALLERGIES Substance Reaction Event Type Date Status morphine vomiting Drug Allergy Aug, Active Adhesive Tape itching, rash Drug Allergy Aug, Active ENCOUNTERS Encounter Location Date Diagnosis [facility] [place] [id number], [place] [address] Apr, [facility] [place] [id number], [place] [address] February, Medicare annual wellness visit, initial Z00.00 [facility] [place] [id number] [place] [address] 70245- 7390 Jan, Acquired hypothyroidism E03.9 ; 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 ; Chronic kidney disease (CKD) stage G1/A1, glomerular filtration rate (GFR) equal to or greater than 90 mL/min/1.73 square meter and albuminuria creatinine ratio less than 30 mg/g N18.1 ; Paroxysmal atrial fibrillation I48.0 ; Chronic diastolic heart failure I50.32 and Secondary hyperparathyroidism of renal origin N25.81 [place] [address] 6[address]- 4248 Jan, Arthritis M19.90 [place] [address] 58301- 0526 Jan, Paroxysmal atrial fibrillation I48.0 [place] [address] 29153- 0974 Jan, Paroxysmal atrial fibrillation I48.0 [place] [address] 56662- 8628 Jan, [place] [address] 04397- 5952 Jan, Generalized anxiety disorder F41.1 [place] [address] 49038- 9117 Jan, Generalized anxiety disorder F41.1 and MDD (major depressive disorder), recurrent, in partial remission F33.41 [place] [id number] [place] [address] 99942- 6925 Dec, Arthritis M19.90 [place] [address] 11939- 0207 Dec, [place] [address] 73533- 9952 Nov, Arthritis M19.90 ; Chronic kidney disease (CKD) stage G1/A1 , glomerular filtration rate (GFR) equal to or greater than 90 mL/min/1.73 square meter and albuminuria creatinine ratio less than 30 mg/g N18.1 and Anxiety F41.9 [facility] [place] [id number] [place] [address] 79759- 6880 Nov, [facility] [place] [id number] [place] [address] 55362- 8979 Nov, [facility] [place] [id number] [place] [address] 40813- 9988 Nov, [facility] [place] [address] 00906- 0122 Nov, [facility] [place] [id number] [place] [address] 40236- 9519 Nov, [facility] [place] [id number] [place] [address] 40424- 2230 Oct, Generalized anxiety disorder F41.1 [facility] [place] [id number] [place] [address] 49836- 5002 Sep, Atrial fibrillation, unspecified type I48.91 [facility] [place] [id number] [place] [address] 39255- 5041 Sep, Generalized anxiety disorder F41.1 and MDD (major depressive disorder), recurrent, in partial remission F33.41 [place] [id number] [place] [address] 89262- 7976 Sep, [facility] [place] [id number] [place] [address] 47637- 4889 Aug, Generalized anxiety disorder F41.1 [facility] [place] [id number] [place] [address] 45280- 5223 Aug, [facility] [place] [address] 01017- 8937 Aug, Paroxysmal atrial fibrillation I48.0 and Gastro-esophageal reflux disease without esophagitis K21.9 [facility] [place] [id number] [place] [address] 98241- 1358 Jul, [facility] [place] [address], [place] [address] 2217 Jul, Generalized anxiety disorder F41.1 [facility] [place] [id number] [place] [address] 65109- 9616 Jun, Generalized anxiety disorder F41.1 and MDD (major depressive disorder), recurrent, in partial remission F33.41 [facility] [place] [id number] [place] [address] 06677- 6346 May, Recurrent major depressive disorder, in partial remission F33.41 [facility] [place] [id number] [place] [address] 83429- 4055 May, Anxiety F41.9 and Paroxysmal atrial fibrillation I48.0 [place] [id number] [place] [address] 00041- 4669 Apr, Generalized anxiety disorder F41.1 [facility] [place] [id number] [place] [address] 47720- 2122 Mar, [facility] [place] [id number] [place] [address] 25265- 0079 Mar, Generalized anxiety disorder F41.1 and MDD (major depressive disorder), recurrent, in partial remission F33.41 [facility] [place] [address], [place] [address] 5642 February, Paroxysmal atrial fibrillation I48.0 and Anxiety F41.9 [facility] [place] [address], [place] [address] 6203 February, MDD (major depressive disorder), recurrent, in partial remission F33.41 [facility] [place] [id number] [place] [address] 18428- 3176 Jan, [facility] [id number] [place] [address] Jan, [facility] [place] [id number] [place] [address] 66023- 9595 Jan, [facility] [place] [address], [place] [address]- 5504 Jan, [facility] [place] [id number] [place] [address] 46799- 2686 Dec, [facility] [place] [id number] [place] [address] 77950- 0924 Dec, Generalized anxiety disorder F41.1 [facility] [place] [id number] [place] [address] 54442- 7468 Dec, Generalized anxiety disorder F41.1 and MDD (major depressive disorder), recurrent, in partial remission F33.41 [facility] [place] [id number] [place] [address] 36282- 6947 15 Dec, 2016 [facility] [place] [id number] [place] [address] 94886- 3110 Dec, [facility] [place] [id number] [place] [address] 88262- 5345 Dec, [facility] [place] [id number] [place] [address] 57925- 4349 Nov, [facility] [place] [id number] [place] [address] 74501- 8670 Nov, Gastro-esophageal reflux disease without esophagitis K21.9 [facility] [place] [id number] [place] [address] 87151- 6945 Nov, Atrial fibrillation, unspecified type I48.91 and Anxiety F41.9 [facility] [place] [address], [place] [address]- 0600 Oct, [facility] [place] [id number] [place] [address] 44440- 1993 Oct, [facility] [place] [address] [place] [address] 89433- 6828 Oct, Depression F32.9 and Atrial fibrillation, unspecified type I48.91 [facility] [place] [address], [place] [address]- 5358 Oct, [facility] [place] [id number] [place] [address] 44311- 8978 Sep, Depression F32.9 [facility] [place] [id number] [place] [address] 07465- 4786 Sep, Recurrent major depressive disorder, in partial remission F33.41 and Generalized anxiety disorder F41.1 [facility] [place] [id number] [place] [address] 16190- 9046 Sep, Paroxysmal atrial fibrillation I48.0 and Anxiety F41.9 [facility] [place] [id number] [place] [address] 74216- 7992 Sep, [facility] [place] [id number] [place] [address] 29682- 9721 Sep, [facility] [place] [id number] [place] [address] 86046- 1912 Sep, Gastro-esophageal reflux disease without esophagitis K21.9 [facility] [place] [id number] [place] [address] 60176- 8957 Aug, [facility] [place] [id number] [place] [address] 41358- 9772 Aug, [facility] [place] [address] [place] [address] 75288- 2759 Aug, Atrial fibrillation, unspecified type I48.91 [facility] [place] [address] [place] [address] 91323- 0886 Jul, Major depressive disorder, recurrent, in partial remission F33.41 and Generalized anxiety disorder F41.1 [facility] [place] [address], [place] [address]- 5335 Jul, [facility] [place] [address], [place] [address]- 8039 Jun, [facility] [place] [id number] [place] [address] 67413- 9244 15 Jun, 2016 Bronchitis J40 and Memory loss R41.3 [place] [address] 22594- 2078 14 Jun, 2016 Upper respiratory infection with cough and congestion J06.9 [place] [id number] [place] [address] 30991- 6204 Apr, [place] [address] 11581- 5591 Apr, Major depressive disorder, recurrent, unspecified F33.9 ; Anxiety F41.9 and Psychophysiological insomnia F51.04 [place] [address] 43726- 9039 Mar, [place] [address] 38181- 6807 Mar, [place] [address] 49984- 6419 February, [place] [id number] [place] [address] 83533- 1474 Jan, Postural hypotension I95.1 [place] [id number] [place] [address] 21265- 7803 14 Jan, 2016 Recurrent major depressive disorder in remission F33.40 ; Generalized anxiety disorder F41.1 and Psychophysiological insomnia F51.04 [place] [id number] [place] [address] 64302- 1242 Dec, Generalized anxiety disorder F41.1 [facility] [id number] [place] [address] 80551 -8843 Dec, Unspecified fall, initial encounter W19.XXXA [place] [id number] [place] [address] 80503- 8650 05 Nov, 2015 Depression F32.9 and Anxiety F41.9 [place] [address] 74622- 8879 Oct, [place] [address] 73717- 5350 Oct, [place] [address] 61289- 7049 Oct, Chronic kidney disease, stage 3 (moderate) N18.3 [place] [address] 24759- 2475 Oct, Head contusion S00.93XA ; Cervical strain S16.1XXA and Arthritis M19.90 [place] [address] 88212- 5185 Oct, Chronic kidney disease 585.9 [place] [address] 32724- 5468 Oct, Chronic kidney disease 585.9 [place] [address] 53894- 2294 Oct, [place] [address] 63625- 0714 Sep, [place] [address] 81371- 6164 Aug, Chronic kidney disease N18.9 [place] [address] 67045- 5393 Aug, Chronic kidney disease (CKD) stage G1/A1, glomerular filtration rate (GFR) equal to or greater than 90 mL/min/1.73 square meter and albuminuria creatinine ratio less than 30 mg/g N18.1 and GERD (gastroesophageal reflux disease) K21.9 [place] [address] 52758- 3112 Aug, [place] [address] 81273- 3859 Jun, Generalized anxiety disorder 300.02 ; Major depression, recurrent 296.30 and Persistent 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 [facility] [place] [address], [place] [address]- 8901 Jun, [facility] [place] [address] [place] [address] 29881- 5066 May, [facility] [place] [address], [place] [address]- 3411 May, Generalized anxiety disorder 300.02 and Depression, major, recurrent, in remission 296.35 [facility] [place] [address], [place] [address]- 2018 May, [facility] [place] [id number] [place] [address] 96266- 4049 May, [facility] [place] [address] [place] [address] 23821- 9925 May, [facility] [place] [id number] [place] [address] 45800- 9769 May, [facility] [place] [address] [place] [address] 83253- 1168 May, Chronic kidney disease 585.9 [facility] [place] [id number] [place] [address] 24065- 0486 Apr, Chronic kidney disease 585.9 [facility] [place] [address], [place] [address]- 7660 Apr, [facility] [place] [address] [place] [address] 53439- 9931 Apr, Arthropathy 716.90 ; Hyperlipidemia 272.4 ; Hypothyroidism 244.9 and GERD (gastroesophageal reflux disease) 530.81 [facility] [place] [address] [address]604 Apr, Arthropathy 716.90 ; Hypothyroidism 244.9 ; Hyperlipidemia 272.4 and GERD (gastroesophageal reflux disease) 530.81 [facility] [place] [id number] [place] [address] 731113- 6309 Mar, [facility] [place] [id number] [place] [address]- 1673 February, Depression, major, recurrent, in remission 296.35 and Generalized anxiety disorder 300.02 [facility] [place] [address] [facility] [id number] [place] [address]- 4996 February, [facility] [place] [id number] [place] [address]- 3256 February, [facility] [place] [address] [facility] [id number] [place] [address]- 7725 Jan, [facility] [place] [address] [place] [address]- 2313 Jan, [facility] [place] [id number] [place] [address]- 7250 Oct, [facility] [place] [id number] [place] [address]- 4012 Oct, [facility] [place] [id number] [place] [address]- 9220 Oct, [facility] [place] [address] [place] [address]- 7035 Oct, [facility] [place] [id number] [place] [address]- 1934 Oct, [facility] [place] [id number] [place] [address]- 8953 Oct, [facility] [place] [id number] [address]- 0575 Sep, [facility] [place] [id number] [place] [address]- 6956 Sep, [facility] [place] [id number] [place] [address]- 2546 Aug, [facility] [place] [id number] [address]- 2292 Aug, [facility] [place] [facility] [address] [id number] [place] [address]- 7081 Aug, [facility] [place] [facility] [address] [id number] [place] [address]- 2994 Aug, [facility] [place] [facility] [address] [id number] [place] [address]- 4596 Jul, [facility] [place] [facility] [address] [id number] [place] [address]- 5505 Jul, [facility] [place] [facility] [address] [id number] [place] [address]- 1482 Jul, [facility] [place] [facility] [address] [id number] [place] [address]- 8422 Jul, [facility] [place] [facility] [address] [id number] [place] [address]- 9611 Jun, [facility] [place] [facility] [address] [id number] [place] [address]- 4413 Jun, [facility] [place] [facility] [address] [id number] [place] [address]- 7586 Jun, [facility] [place] [facility] [address] [id number] [place] [address]- 7415 Jun, [facility] [place] [facility] [address] [id number] [place] [address]- 4239 Jun, [facility] [place] [facility] [address] [id number], [place] [address]- 2390 Jun, [facility] [place] [facility] [address] [id number] [place] [address] Jun, [facility] [place] [facility] [address] [id number] [place] [address] May, [facility] [place] [facility] [address] [id number] [place] [address] May, [facility] [place] [facility] [address] [id number] [place] [address] May, [facility] [place] [facility] [address] [id number] [place] [address] May, [facility] [place] [facility] [address] [id number] [place] [address] Apr, [facility] [place] [facility] [address] [id number] [place] [address] Apr, [facility] [place] [facility] [address] [id number] [place] [address] Apr, [facility] [place] [facility] [address] [id number] [place] [address] Apr, [facility] [place] [facility] [address] [id number] [place] [address]- [address] Apr, [facility] [place] [facility] [address] [id number] [place] [address] Apr, [facility] [place] [facility] [address] [id number] [place] [address]- [address] Apr, [facility] [place] [facility] [address] [id number] [place] [address]- [address] Apr, [facility] [place] [facility] [address] [id number] [place] [address] Mar, [facility] [place] [facility] [address] [id number] [place] [address] Mar, [facility] [place] [facility] [address] [id number] [place] [address]- [address] Mar, [facility] [place] [facility] [address] [id number] [place] [address] Mar, [facility] [place] [facility] [address] [id number] [place] [address]- [address] Mar, [facility] [place] [facility] [address] [id number] [place] [address] Mar, [facility] [place] [facility] [address] [id number] [place] [address] Mar, [facility] [place] [facility] [address] [id number] [place] [address]- [address] Mar, [facility] [place] [facility] [address] [id number] [place] [address] Dec, [facility] [place] [facility] [address] [id number] [place] [address] Dec, [facility] [place] [facility] [address] [id number] [place] [address] Dec, [facility] [place] [facility] [address] [id number] [place] [address]- [address] Dec, [facility] [place] [facility] [address] [id number] [place] [address]- [address] Dec, [facility] [place] [facility] [address] [id number] [place] [address]- [address] Dec, [facility] [place] [facility] [address] [id number] [place] [address]- [address] Dec, [facility] [place] [facility] [address] [id number] [place] [address]- [address] Dec, [facility] [place] [facility] [address] [id number] [place] [address]- [address] Nov, [facility] [place] [facility] [address] [id number] [place] [address] Nov, [facility] [place] [facility] [address] [id number] [place] [address] Nov, [facility] [place] [facility] [address] [id number] [place] [address]- [address] Nov, [facility] [place] [facility] [address] [id number] [place] [address] 14 Nov, 2013 [facility] [place] [facility] [address] [id number] [place] [address] 14 Nov, 2013 [facility] [place] [facility] [address] [id number] [place] [address] Nov, [facility] [place] [facility] [address] [id number] [place] [address] Nov, [facility] [place] [facility] [address] [id number] [place] [address] Aug, [facility] [place] [facility] [address] [id number] [place] [address] Aug, [facility] [place] [facility] [address] [id number] [place] [address] Jul, [facility] [place] [facility] [address] [id number] [place] [address] Jul, [facility] [place] [facility] [address] [id number] [place] [address] Jul, [facility] [place] [facility] [address] [id number] [place] [address] Jun, [facility] [place] [facility] [address] [id number] [place] [address] 30 Jun, 2013 [facility] [place] [facility] [address] [facility] [id number] [place] [address] Jun, [facility] [place] [facility] [address] [id number] [place] [address] 1878 Jun, [facility] [place] [facility] [address] [id number] [place] [address] 2543 Jun, [facility] [place] [facility] [address] [id number] [place] [address] 28[address] May, [facility] [place] [facility] [address] [id number] [place] [address] Apr, [facility] [place] [facility] [address] [id number] [place] [address] Apr, [facility] [place] [facility] [address] [id number] [place] [address] Apr, [facility] [address] [id number] [place] [address] Mar, [facility] [address] [id number] [place] [address] Mar, [facility] [address] [id number] [place] [address] February, [facility] [address] [id number] [place] [address] February, [facility] [address] [id number] [place] [address] February, [facility] [address] [id number] [place] [address] February, [facility] [address] [id number] [place] [address] Jan, [facility] [address] [id number] [place] [address] Jan, [facility] [address] [id number] [place] [address] 0[address] Jan, [facility] [address] [id number] [place] [address] 77[address] Jan, [facility] [address] [id number] [place] [address] 264[address] Dec, [facility] [place] [facility] [address] [id number] [place] [address] 3569 Dec, [facility] [place] [facility] [address] [id number] [id number] [address] Dec, [facility] [place] [facility] [address] [id number] [place] [address]- 8895 Nov, [facility] [place] [facility] [address] [id number] [place] [address] 15 Nov, 2012 [facility] [address] [id number] [place] [address]297 Nov, [facility] [place] [facility] [address] [id number] [place] [address] Oct, [facility] [address] [id number] [place] [address] 9538 Oct, [facility] [place] [facility] [address] [id number] [place] [address] 4[address] Sep, [facility] [place] [facility] [address] [id number] [place] [address] 4489 Sep, [facility] [place] [facility] [address] [id number] [place] [address] 5028 Sep, [facility] [address] [id number] [place] [address]- 6978 Sep, [facility] [place] [facility] [address] [id number] [place] [address]- 7926 Sep, [facility] [place] [facility] [address] [id number] [place] [address] Aug, [facility] [place] [facility] [address] [id number] [place] [address] 8758 Aug, [facility] [place] [facility] [address] [id number], [place] [address] Aug, [facility] [place] [facility] [address] [id number], [place] [address] Aug, [facility] [place] [facility] [address] [id number] [place] [address]- 1081 Aug, [facility] [place] [facility] [address] [id number], [place] [address] Aug, [facility] [place] [facility] [address] [id number] [place] [address] 8374 Jun, [facility] [place] [facility] [address] [id number] [place] [address] 2546 Jun, [facility] [address] [id number] [place] [address]- 8021 Jun, [facility] [address] [id number] [place] [address] 2546 May, [facility] [address] [id number] [place] [address] 2546 May, [facility] [address] [id number] [place] [address] 2546 May, [facility] [address] [id number] [place] [address]- 8096 May, [facility] [address] [id number] [place] [address] 9556 Apr, [facility] [address] [id number] [place] [address] 1381 Mar, [facility] [address] [id number] [place] [address]- 9669 Mar, [facility] [address] [id number] [place] [address]- 5736 Mar, [facility] [address] [id number] [place] [address] 0210 February, [facility] [address] [id number] [place] [address] 1276 February, [facility] [address] [id number] [place] [address]- 3666 February, [facility] [place] [facility] [address] [id number] [place] [address] 2546 February, [facility] [address] [id number] [place] [address]- 2546 Dec, [facility] [address] [id number] [place] [address]- 5256 Dec, [facility] [place] [facility] [address] [id number] [place] [address]- 2766 Dec, [facility] [place] [facility] [address] [id number] [place] [address]- 1896 Dec, [facility] [place] [facility] [address] [id number] [place] [address]- 5909 Nov, [facility] [place] [facility] [address] [id number] [place] [address]- 6249 Nov, [facility] [place] [facility] [address] [id number] [place] [address]- 9692 Nov, [facility] [place] [facility] [address] [id number] [place] [address] 1933 Nov, [facility] [place] [facility] [address] [id number] [place] [address]- 4386 Nov, [facility] [place] [facility] [address] [id number] [place] [address]- 8206 Oct, [facility] [place] [facility] [address] [id number] [place] [address]- 2501 Oct, [facility] [place] [facility] [address] [id number] [place] [address]- 1720 Oct, [facility] [place] [facility] [address] [id number] [place] [address]- 4893 Aug, [facility] [place] [facility] [address] [id number] [place] [address]- 9288 Aug, [facility] [place] [facility] [address] [id number] [place] [address]- 1744 Jul, [facility] [place] [facility] [address] [id number] [place] [address]- 0900 Jul, [facility] [place] [facility] [address] [id number] [place] [address]- 1643 Jul, [facility] [place] [facility] [address] [id number] [place] [address]- 4209 18 Jul, 2011 [facility] [address] [id number] [place] [address]- 1103 18 Jul, 2011 [facility] [place] [facility] [address] [id number] [place] [address]- 3939 17 Jul, 2011 [facility] [address] [id number] [place] [address]- 2962 12 Jul, 2011 [facility] [place] [facility] [address] [id number] [place] [address]- 4005 Jul, [facility] [address] [id number] [place] [address]- 9507 May, [facility] [place] [facility] [address] [facility] [id number] [place] [address]- 1426 February, [facility] [address] [facility] [id number] [place] [address]- 0483 Nov, [facility] [address] [facility] [id number] [place] [address]- 7547 Sep, [facility] [address] [facility] [id number] [place] [address]- 0658 Aug, [facility] [address] [facility] [id number] [place] [address]- 9993 14 Oct, 2009 [facility] [address] [facility] [id number] [place] [address]- 5704 Jul, [facility] [address] [facility] [id number] [place] [address] 2549 Jun, [facility] [place] [facility] [address] [facility] [id number] [place] [address]- 0433 16 Mar, 2009 [facility] [place] [facility] [address] [facility] [id number] [place] [address]- 2546 11 Mar, 2009 [facility] [address] [facility] [id number], [place] [address] Nov, IMMUNIZATIONS No Known Immunizations SOCIAL HISTORY Never Assessed REASON FOR VISIT Anxiety- Not any worse some days are better- Cyn Nixon RN PLAN OF CARE Activity Details Follow Up 3 Months Reason: VITAL SIGNS Height 66 in 2017-08-25 Weight 134 lbs 2017-08-25 Temperature 97.9 degrees Fahrenheit 2017-08-25 Heart Rate 62 bpm 2017-08-25 Respiratory Rate 18 2017-08-25 BMI 21.63 kg/m2 2017-08-25 Blood pressure systolic 120 mmHg 2017-08-25 Blood pressure diastolic 78 mmHg 2017-08-25 MEDICATIONS Medication Instructions Dosage Frequency Start Date End Date Duration Status Lasix 40 mg Orally every other day 1/2 tablet Active Omeprazole 20 mg Orally Once a day 1 capsule 24h Apr, 90 days Active Metoclopramide HCl 5MG Orally 3 times a day 1 tablet 8h 90 days Active Aspir-Low 81 MG Orally three times weekly 1 tablet Active Polyethylene Glycol 3350 Orally 2 times a day MIX 17 GRAMS IN 8 OZ OF SUITABLE LIQUID 12h 30 Active Docusate Sodium 50 MG Orally 2 times a day 1 capsule as needed 12h Active Eliquis 2.5 MG Orally 2 times a day 1 tablet 12h Active Iron (Ferrous Gluconate) 256 (28 Fe) MG Active Levothyroxine Sodium 25 MCG TAKE ONE TABLET BY MOUTH DAILY 30 Active Toprol XL 25 MG Orally Once a day 1 tablet 24h Active Alprazolam 2 MG Orally 3 times a day 1 tablet 8h 30 days Active BuPROPion HCl ER (XL) 300 MG Orally Once a day TAKE ONE TABLET BY MOUTH ONCE DAILY 24h Active RESULTS No Results PROCEDURES Procedure Date Ordered Result Body Site [facility] ESTABLISHED PATIENT Aug 25, 2017 INSTRUCTIONS MEDICATIONS ADMINISTERED No Known Medications [...]
--- OUTSIDE RECORDS SUMMARY | 2019-01-24 07:52 | XMS REPORT ---
Author Author ARI MURRELL [facility] Address [address] [place] [address] Care Team Providers Care Customer Operations Intern Name Role Phone ARI MURRELL Unavailable PROBLEMS Type Condition ICD9-CM Code POM21-KW Code Onset Dates Condition Status SNOMED Code Problem Chronic kidney disease (CKD) stage G1/A1, glomerular filtration rate ( GFR) equal to or greater than 90 mL/min/1.73 square meter and albuminuria creatinine ratio less than 30 mg/g N18.1 Active 216694443 Problem Depression F32.9 Active 66162854 Problem Arthritis M19.90 Active 7527018 Problem MDD (major depressive disorder), recurrent, in partial remission F33.41 Active 07900819 Problem Generalized anxiety disorder F41.1 Active 71673462 Problem Atrial fibrillation, unspecified type I48.91 Active 60667854 Problem Anxiety F41.9 Active 75156484 Problem Gastro-esophageal reflux disease without esophagitis K21.9 Active 190458505 Problem Paroxysmal atrial fibrillation I48.0 Active 960934017 ALLERGIES No Information ENCOUNTERS Encounter Location Date Diagnosis [facility] [id number] [place] [address] 43544- 9727 Apr, [facility] [id number] [place] [address] 91658- 5185 Jan, Generalized anxiety disorder F41.1 [facility] [id number] [place] [address] 56067- 6663 Jan, Generalized anxiety disorder F41.1 and MDD (major depressive disorder), recurrent, in partial remission F33.41 [facility] [address] [place] [address] 27659- 8058 Dec, Arthritis M19.90 [facility] [id number] [place] [address] 64649- 2334 Dec, [facility] [id number] [place] [address] 30027- 2376 Nov, Arthritis M19.90 ; Chronic kidney disease (CKD) stage G1/A1 , glomerular filtration rate (GFR) equal to or greater than 90 mL/min/1.73 square meter and albuminuria creatinine ratio less than 30 mg/g N18.1 and Anxiety F41.9 [facility] [id number] [place] [address] 58615- 4758 Nov, [facility] [id number] [place] [address] 72678- 9808 Nov, [facility] [id number] [place] [address] 27868- 7194 Nov, [facility] [id number] [place] [address] 06188- 0400 Nov, [facility] [id number] [place] [address] 10260- 0989 Nov, [facility] [id number] [place] [address] 06049- 5775 Oct, Generalized anxiety disorder F41.1 [facility] [id number] [place] [address] 93876- 6096 Sep, Atrial fibrillation, unspecified type I48.91 [facility] [id number] [place] [address] 22381- 3041 Sep, Generalized anxiety disorder F41.1 and MDD (major depressive disorder), recurrent, in partial remission F33.41 [facility] [id number] [place] [address] 02576- 7765 Sep, [facility] [id number] [place] [address] 48143- 9911 Aug, Generalized anxiety disorder F41.1 [facility] [id number] [place] [address] 07682- 6450 Aug, [facility] [address] [place] [address]- 2398 Aug, Paroxysmal atrial fibrillation I48.0 and Gastro-esophageal reflux disease without esophagitis K21.9 [facility] [address] [place] [address]- 9896 Jul, [facility] [id number] [place] [address] 59109- 7470 Jul, Generalized anxiety disorder F41.1 [facility] [address] [place] [address] 53405- 1586 Jun, Generalized anxiety disorder F41.1 and MDD (major depressive disorder), recurrent, in partial remission F33.41 [facility] [id number] [place] [address] 12266- 4122 May, Recurrent major depressive disorder, in partial remission F33.41 [facility] [id number] [place] [address] 66983- 5768 May, Anxiety F41.9 and Paroxysmal atrial fibrillation I48.0 [facility] [id number] [place] [address] 59505- 8300 Apr, Generalized anxiety disorder F41.1 [facility] [address] [address]- 3743 Mar, [facility] [id number] [place] [address] 19551- 3577 Mar, Generalized anxiety disorder F41.1 and MDD (major depressive disorder), recurrent, in partial remission F33.41 [facility] [id number] [place] [address] 27784- 6901 February, Paroxysmal atrial fibrillation I48.0 and Anxiety F41.9 [facility] [address] [place] [address]- 1348 February, MDD (major depressive disorder), recurrent, in partial remission F33.41 [facility] [address] [address]- 1335 Jan, [facility] [id number] [place] [address] 46371 -5813 Jan, [facility] [id number] [place] [address] 94665- 8926 Jan, [facility] [id number] [place] [address] 64420- 3747 Jan, [facility] [id number] [place] [address] 25821- 4983 Dec, [facility] [id number] [place] [address] 33343- 3762 Dec, Generalized anxiety disorder F41.1 [facility] [id number] [place] [address] 57951- 9366 Dec, Generalized anxiety disorder F41.1 and MDD (major depressive disorder), recurrent, in partial remission F33.41 [facility] [id number] [place] [address] 40150- 6199 15 Dec, 2016 [facility] [id number] [place] [address] 48157- 1317 Dec, [facility] [id number] [place] [address] 53461- 6670 Dec, [facility] [id number] [place] [address] 42505- 1578 Nov, [facility] [id number] [place] [address] 37981- 9190 Nov, Gastro-esophageal reflux disease without esophagitis K21.9 [facility] [id number] [place] [address] 92596- 7579 10 Nov, 2016 Atrial fibrillation, unspecified type I48.91 and Anxiety F41.9 [facility] [id number] [place] [address] 19371- 8213 Oct, [facility] [id number] [place] [address] 01562- 3695 Oct, [facility] [id number] [place] [address] 67894- 3440 Oct, Depression F32.9 and Atrial fibrillation, unspecified type I48.91 [facility] [address] 47030- 8572 Oct, [facility] [id number] [place] [address] 40554- 1715 Sep, Depression F32.9 [facility] [address] 69831- 2811 Sep, Recurrent major depressive disorder, in partial remission F33.41 and Generalized anxiety disorder F41.1 [facility] [address] 78537- 6637 Sep, Paroxysmal atrial fibrillation I48.0 and Anxiety F41.9 [facility] [id number] [place] [address] 57223- 5137 Sep, [facility] [id number] [place] [address] 63246- 0601 Sep, [facility] [id number] [place] [address] 99829- 9804 Sep, Gastro-esophageal reflux disease without esophagitis K21.9 [facility] [id number] [place] [address] 37272- 5933 Aug, [facility] [id number] [place] [address] 30275- 7804 Aug, [facility] [id number] [place] [address] 81523- 2859 Aug, Atrial fibrillation, unspecified type I48.91 [facility] [id number] [place] [address] 31922- 4079 Jul, Major depressive disorder, recurrent, in partial remission F33.41 and Generalized anxiety disorder F41.1 [facility] [address] [place] [address] 24591- 2622 Jul, [facility] [id number] [place] [address] 75898- 1509 30 Jun, 2016 [facility] [id number] [place] [address] 80012- 4725 15 Jun, 2016 Bronchitis J40 and Memory loss R41.3 [facility] [id number] [place] [address] 74371- 6212 14 Jun, 2016 Upper respiratory infection with cough and congestion J06.9 [facility] [id number] [place] [address] 22008- 8400 Apr, [facility] [id number] [place] [address] 29298- 7717 Apr, Major depressive disorder, recurrent, unspecified F33.9 ; Anxiety F41.9 and Psychophysiological insomnia F51.04 [facility] [id number] [place] [address] 44679- 7623 Mar, [facility] [id number] [place] [address] 92854- 6676 Mar, [facility] [id number] [place] [address] 57756- 8019 February, [facility] [id number] [place] [address] 37659- 8158 Jan, Postural hypotension I95.1 [facility] [id number] [place] [address] 96244- 1870 Jan, Recurrent major depressive disorder in remission F33.40 ; Generalized anxiety disorder F41.1 and Psychophysiological insomnia F51.04 [facility] [address], [place] [address]- 1693 Dec, Generalized anxiety disorder F41.1 [facility] [id number] [place] [address] 95759 -2784 Dec, Unspecified fall, initial encounter W19.XXXA [facility] [address] 12713- 1372 Nov, Depression F32.9 and Anxiety F41.9 [facility] [address] 89185- 5952 Oct, [facility] [address] 04207- 7613 Oct, [facility] [address] 29649- 0062 Oct, Chronic kidney disease, stage 3 (moderate) N18.3 [facility] [address] 20186- 1649 Oct, Head contusion S00.93XA ; Cervical strain S16.1XXA and Arthritis M19.90 [facility] [address] 50836- 8888 Oct, Chronic kidney disease 585.9 [facility] [address] 13921- 4224 Oct, Chronic kidney disease 585.9 [facility] [address] 15198- 6578 Oct, [facility] [address] 40390- 0325 Sep, [facility] [id number] [place] [address] 92394- 0291 Aug, Chronic kidney disease N18.9 [facility] [address] 52069- 9246 Aug, Chronic kidney disease (CKD) stage G1/A1, glomerular filtration rate (GFR) equal to or greater than 90 mL/min/1.73 square meter and albuminuria creatinine ratio less than 30 mg/g N18.1 and GERD (gastroesophageal reflux disease) K21.9 [facility] [id number] [place] [address] 84115- 6829 Aug, [facility] [id number] [place] [address] 22607- 8242 Jun, Generalized anxiety disorder 300.02 ; Major depression, recurrent 296.30 and Persistent 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 [facility] [address] 18602- 5780 Jun, [facility] [id number] [place] [address] 70729- 6698 May, [facility] [id number] [place] [address] 96332- 8781 May, Generalized anxiety disorder 300.02 and Depression, major, recurrent, in remission 296.35 [facility] [id number] [place] [address] 07274- 7673 May, [facility] [id number] [place] [address] 54771- 3134 May, [facility] [id number] [place] [address] 81100- 3818 May, [facility] [id number] [place] [address] 62502- 0995 May, [facility] [id number] [place] [address] 96749- 4621 May, Chronic kidney disease 585.9 [facility] [id number] [place] [address] 45205- 6458 Apr, Chronic kidney disease 585.9 [facility] [id number] [place] [address] 57233- 4572 Apr, [facility] [id number] [place] [address] 87794- 0293 Apr, Arthropathy 716.90 ; Hyperlipidemia 272.4 ; Hypothyroidism 244.9 and GERD (gastroesophageal reflux disease) 530.81 [facility] [id number] [place] [address] 62171- 6159 Apr, Arthropathy 716.90 ; Hypothyroidism 244.9 ; Hyperlipidemia 272.4 and GERD (gastroesophageal reflux disease) 530.81 [facility] [id number] [place] [address] 81699- 0006 Mar, [facility] [address] 14230- 0602 February, Depression, major, recurrent, in remission 296.35 and Generalized anxiety disorder 300.02 [facility] [id number] [place] [address] 01637- 5614 February, [facility] [id number] [place] [address] 14350- 3517 February, [facility] [id number] [place] [address] 04960- 4966 Jan, [facility] [id number] [place] [address] 61948- 8001 Jan, [facility] [id number] [place] [address] 75136- 8349 Oct, [facility] [id number] [place] [address] 09140- 4657 Oct, [facility] [id number] [place] [address] 31339- 2949 Oct, [facility] [address] [place] [address] 43989- 8119 Oct, [facility] [id number] [place] [address] 87497- 3489 Oct, [facility] [id number] [place] [address]- 7896 Oct, [facility] [id number] [place] [address] 286027- 2615 Sep, [facility] [place] [facility] [address] [id number] [place] [address]- 6748 Sep, [facility] [place] [facility] [address] [id number] [place] [address]- 2645 Aug, [facility] [place] [facility] [address] [id number] [place] [address]- 6497 Aug, [facility] [place] [facility] [address] [id number] [place] [address]- 8465 Aug, [facility] [place] [facility] [address] [id number] [place] [address]- 9188 Aug, [facility] [place] [facility] [address] [id number] [place] [address]- 3238 Jul, [facility] [place] [facility] [address] [id number] [place] [address]- 8767 Jul, [facility] [place] [facility] [address] [id number] [place] [address]- 5178 Jul, [facility] [place] [facility] [address] [id number] [place] [address]- 6556 Jul, [facility] [place] [facility] [address] [id number], [place] [address]- 2455 29 Jun, 2014 [facility] [place] [facility] [address] [id number] [place] [address]- 4272 Jun, [facility] [place] [facility] [address] [id number], [place] [address]- 6293 22 Jun, 2014 [facility] [place] [facility] [address] [id number] [place] [address]- 2445 10 Jun, 2014 [facility] [place] [facility] [address] [id number] [place] [address]- 1616 10 Jun, 2014 [facility] [place] [facility] [address] [id number], [place] [address]- 7757 10 Jun, 2014 [facility] [place] [facility] [address] [id number], [place] [address]- 2752 Jun, [facility] [place] [facility] [address] [id number] [place] [address]- 9607 May, [facility] [place] [facility] [address] [id number] [place] [address]- 4932 May, [facility] [place] [facility] [address] [id number] [place] [address]- 7444 May, [facility] [place] [facility] [address] [id number] [place] [address]- 6824 May, [facility] [place] [facility] [address] [id number] [place] [address]- 3750 Apr, [facility] [place] [facility] [address] [id number] [place] [address]- 4782 Apr, [facility] [place] [facility] [address] [id number] [place] [address]- 5812 Apr, [facility] [place] [facility] [address] [id number] [place] [address]- 8108 Apr, [facility] [place] [facility] [address] [id number] [place] [address]- 4338 Apr, [facility] [place] [facility] [address] [id number] [place] [address]- 3461 Apr, [facility] [place] [facility] [address] [id number] [place] [address]- 1269 Apr, [facility] [place] [facility] [address] [id number] [place] [address]- 6502 Apr, [facility] [place] [facility] [address] [id number] [place] [address]- 8230 Mar, [facility] [place] [facility] [address] [id number] [place] [address]- 8651 Mar, [facility] [place] [facility] [address] [id number] [place] [address]- 1360 Mar, [facility] [place] [facility] [address] [id number] [place] [address]- 7725 Mar, [facility] [place] [facility] [address] [id number] [place] [address]- 1632 Mar, [facility] [place] [facility] [address] [id number] [place] [address]- 1419 Mar, [facility] [place] [facility] [address] [id number] [place] [address]- 5831 Mar, [facility] [place] [facility] [address] [id number] [place] [address]- 1509 Mar, [facility] [place] [facility] [address] [id number] [place] [address]- 2914 Dec, [facility] [place] [facility] [address] [id number] [place] [address]- 2784 Dec, [facility] [place] [facility] [address] [id number] [place] [address]- 0936 Dec, [facility] [place] [facility] [address] [id number] [place] [address]- 0272 Dec, [facility] [place] [facility] [address] [id number] [place] [address]- 2449 Dec, [facility] [place] [facility] [address] [id number] [place] [address]- 1223 Dec, [facility] [place] [facility] [address] [id number] [place] [address]- 3801 Dec, [facility] [place] [facility] [address] [id number] [place] [address]- 8974 Dec, [facility] [place] [facility] [address] [id number] [place] [address]- 0716 Nov, [facility] [place] [facility] [address] [id number] [place] 6373 Nov, [facility] [place] [facility] [address] [id number] [place] [address]- 5161 Nov, 2013 [facility] [place] [facility] [address] [id number] [place] [address]- 0714 Nov, 2013 [facility] [place] [facility] [address] [id number] [place] [address]- 9437 Nov, 2013 [facility] [place] [facility] [address] [facility] [id number] [place] [address]- 4956 Nov, 2013 [facility] [place] [facility] [address] [id number] [place] [address]- 2324 Nov, [facility] [place] [facility] [address] [id number] [place] [address]- 2250 Nov, [facility] [place] [facility] [address] [facility] [id number] [place] [address]- 2906 Aug, [facility] [place] [facility] [address] [facility] [id number] [place] [address]- 9019 Aug, [facility] [place] [facility] [address] [facility] [id number] [place] [address]- 5401 Jul, [facility] [place] [facility] [address] [facility] [id number] [place] [address]- 7021 18 Jul, 2013 [facility] [place] [facility] [address] [facility] [id number] [place] [address]- 5564 02 Jul, 2013 [facility] [place] [facility] [address] [facility] [id number], [place] [address]- 8138 30 Jun, 2012 [facility] [place] [facility] [address] [facility] [id number], [place] [address]- 2549 30 Jun, 2012 [facility] [place] [facility] [address] [id number] [place] [address]- 8878 24 Jun, 2012 [facility] [place] [facility] [address] [facility] [id number], [place] [address] 04 Sep, 2012 [facility] [place] [facility] [address] [facility] [id number] [place] [address] 04 Sep, 2012 [facility] [place] [facility] [address] [id number] [place] [address] May, [facility] [address] [id number] [place] [address] Apr, [facility] [place] [facility] [address] [id number] [place] [address] Apr, [facility] [address] [id number] [place] [address] Apr, [facility] [place] [facility] [address] [id number] [place] [address] Mar, [facility] [place] [facility] [address] [id number] [place] [address] Mar, [facility] [place] [facility] [address] [id number] [place] [address] February, [facility] [address] [id number] [place] [address] February, [facility] [address] [id number] [place] [address] February, [facility] [address] [id number] [place] [address] February, [facility] [address] [id number] [place] [address] Jan, [facility] [place] [facility] [address] [id number] [place] [address] Jan, [facility] [place] [facility] [address] [id number] [place] [address] Jan, [facility] [place] [facility] [address] [id number] [place] [address] 04 Jan, 2013 [facility] [place] [facility] [address] [id number] [place] [address] Dec, [facility] [place] [facility] [address] [id number] [place] [address] 13 Dec, 2012 [facility] [place] [facility] [address] [id number] [place] [address] Dec, [facility] [place] [facility] [address] [id number] [place] [address] 22 Nov, 2012 [facility] [place] [facility] [address] [id number] [place] [address] 15 Nov, 2012 [facility] [place] [facility] [address] [id number] [place] [address] Nov, [facility] [place] [facility] [address] [id number] [place] [address] Oct, [facility] [place] [facility] [address] [id number] [place] [address] Oct, [facility] [place] [facility] [address] [id number] [place] [address] Sep, [facility] [place] [facility] [address] [id number] [place] [address] Sep, [facility] [place] [facility] [address] [id number] [place] [address] Sep, [facility] [place] [facility] [address] [id number] [place] [address] Sep, [facility] [place] [facility] [address] [id number] [place] [address] Sep, [facility] [place] [facility] [address] [id number] [place] [address] Aug, [facility] [place] [facility] [address] [id number] [place] [address] Aug, [facility] [place] [facility] [address] [facility] [id number] [place] [address] Aug, [facility] [place] [facility] [address] [facility] [id number] [place] [address] Aug, [facility] [place] [facility] [address] [id number] [place] [address] Aug, [facility] [address] [id number] [place] [address] Aug, [facility] [address] [id number] [place] [address] Jun, [facility] [address] [id number] [place] [address] Jun, [facility] [address] [id number] [place] [address] Jun, [facility] [address] [id number] [place] [address] May, [facility] [address] [id number] [place] [address] May, [facility] [address] [id number] [place] [address] May, [facility] [address] [id number] [place] [address] May, [facility] [address] [id number] [place] [address] Apr, [facility] [address] [id number] [place] [address] Mar, [facility] [place] [facility] [address] [id number] [place] [address] Mar, [facility] [address] [id number] [place] [address] Mar, [facility] [place] [facility] [address] [id number] [place] [address] February, [facility] [place] [facility] [address] [id number] [place] [address] February, [facility] [address] [id number] [place] [address] February, [facility] [address] [id number] [place] [address] February, [facility] [place] [facility] [address] [id number] [place] [address] Dec, [facility] [place] [facility] [address] [id number] [place] [address] Dec, [facility] [place] [facility] [address] [id number] [place] [address] Dec, [facility] [place] [facility] [address] [id number] [place] [address] Dec, [facility] [place] [facility] [address] [id number] [place] [address] Nov, [facility] [place] [facility] [address] [id number] [place] [address] Nov, [facility] [place] [facility] [address] [id number] [place] [address] Nov, [facility] [place] [facility] [address] [id number] [place] [address] Nov, [facility] [place] [facility] [address] [facility] [id number] [place] [address] Nov, [facility] [place] [facility] [address] [id number] [place] [address] Oct, [facility] [place] [facility] [address] [id number] [place] [address] Oct, [facility] [place] [facility] [address] [id number] [place] [address] Oct, [facility] [place] [facility] [address] [id number] [place] [address] Aug, [facility] [place] [facility] [address] [id number] [place] [address] Aug, [facility] [place] [facility] [address] [id number] [place] [address] Jul, [facility] [place] [facility] [address] [id number] [place] [address] 24 Jul, 2011 [facility] [place] [facility] [address] [id number] [place] [address] Jul, [facility] [place] [facility] [address] [id number] [place] [address] Jul, [facility] [place] [facility] [address] [id number] [place] [address] Jul, [facility] [place] [facility] [address] [id number] [place] [address] Jul, [facility] [place] [facility] [address] [id number] [place] [address] Jul, [facility] [place] [facility] [address] [id number] [place] [address] Jul, [facility] [place] [facility] [address] [id number] [place] [address] May, [facility] [place] [facility] [address] [id number] [place] [address] February, [facility] [place] [facility] [address] [id number] [place] [address] Nov, [facility] [place] [facility] [address] [id number] [place] [address] Sep, [facility] [place] [facility] [address] [id number] [place] [address] Aug, [facility] [place] [facility] [address] [id number] [place] [address] 14 Oct, 2009 [facility] [place] [facility] [address] [id number] [place] [address] Jul, [facility] [place] [facility] [address] [id number] [place] [address] Jun, [facility] [address] [facility] [id number] [place] [address] Mar, [facility] [address] [facility] [id number], [place] [address] Mar, [facility] [address] [facility] [id number] [place] [address] 17 Nov, 2008 IMMUNIZATIONS No Known Immunizations SOCIAL HISTORY Never Assessed REASON FOR VISIT Controlled Med Refill PLAN OF CARE VITAL SIGNS MEDICATIONS Medication Instructions Dosage Frequency Start Date End Date Duration Status Alprazolam 2 MG Orally 3 times a day 1 tablet 8h 30 days Active RESULTS No Results PROCEDURES [...]
--- OUTSIDE RECORDS SUMMARY | 2019-01-24 07:53 | XMS REPORT ---
Author Author ARI MURRELL Organization [facility] Address [address] [place] [address] Care Team Providers Care Wharf Hand Name Role Phone ARI MURRELL Unavailable PROBLEMS Type Condition ICD9-CM Code LSS45-NS Code Onset Dates Condition Status SNOMED Code Problem Paroxysmal atrial fibrillation I48.0 Active 253817404 Problem Generalized anxiety disorder F41.1 Active 42211128 Problem Gastro-esophageal reflux disease without esophagitis K21.9 Active 365763778 Problem Chronic kidney disease, stage 1 N18.1 Active 557845179 Problem Secondary hyperparathyroidism of renal origin N25.81 Active 60189846 Problem 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 Active 963476831 Problem MDD (major depressive disorder), recurrent, in partial remission F33.41 Active 99141065 Problem Acquired hypothyroidism E03.9 Active 775623436 Problem Chronic diastolic heart failure I50.32 Active 907995485 Problem Arthritis M19.90 Active 1679321 Problem Depression F32.9 Active 43847831 Problem Anxiety F41.9 Active 80880593 Problem Chronic kidney disease (CKD) stage G1/A1, glomerular filtration rate ( GFR) equal to or greater than 90 mL/min/1.73 square meter and albuminuria creatinine ratio less than 30 mg/g N18.1 Active 324488280 Problem Atrial fibrillation, unspecified type I48.91 Active 73715913 ALLERGIES No Information ENCOUNTERS Encounter Location Date Diagnosis [facility] [address] [facility] [id number] [place] [address] February, Medicare annual wellness visit, initial Z00.00 ; MDD (major depressive disorder), recurrent, in partial remission F33.41 ; Atrial fibrillation, unspecified type I48.91 ; Chronic diastolic heart failure I50.32 ; Secondary hyperparathyroidism of renal origin N25.81 ; Acquired hypothyroidism E03.9 ; Anxiety F41.9 ; Chronic kidney disease, stage 1 N18.1 and Encounter for immunization Z23 [facility] [id number] [place] [address] 46864- 1509 February, Closed fracture of one rib of right side, initial encounter S22.31XA ; Acute cystitis with hematuria N30.01 ; Right flank pain R10.9 and Rib pain on right side R07.81 [facility] [address] [address]- [address] Jan, 2018 Acquired hypothyroidism E03.9 ; 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 ; Chronic kidney disease (CKD) stage G1/A1, glomerular filtration rate (GFR) equal to or greater than 90 mL/min/1.73 square meter and albuminuria creatinine ratio less than 30 mg/g N18.1 ; Paroxysmal atrial fibrillation I48.0 ; Chronic diastolic heart failure I50.32 and Secondary hyperparathyroidism of renal origin N25.81 [facility] [address] [address]- 4105 Jan, Arthritis M19.90 [facility] [address] 58018- 7512 Jan, Paroxysmal atrial fibrillation I48.0 [facility] [address] 74516- 3303 Jan, Paroxysmal atrial fibrillation I48.0 [facility] [address] 47592- 8014 Jan, [facility] [address] 22562- 9002 Jan, Generalized anxiety disorder F41.1 [facility] [address] 83948- 0839 Jan, Generalized anxiety disorder F41.1 and MDD (major depressive disorder), recurrent, in partial remission F33.41 [facility] [id number] [place] [address] 70501- 6025 Dec, Arthritis M19.90 [facility] [address] [place] [address]- 8493 Dec, [facility] [id number] [place] [address] 97414- 5383 Nov, Arthritis M19.90 ; Chronic kidney disease (CKD) stage G1/A1 , glomerular filtration rate (GFR) equal to or greater than 90 mL/min/1.73 square meter and albuminuria creatinine ratio less than 30 mg/g N18.1 and Anxiety F41.9 [facility] [address] [address]- 4645 Nov, [facility] [address] 88947- 1682 Nov, [facility] [address] 71834- 5554 Nov, [facility] [address] 18588- 8837 Nov, [facility] [id number] [place] [address] 92196- 9184 Nov, [facility] [id number] [place] [address] 35452- 2946 Oct, Generalized anxiety disorder F41.1 [facility] [id number] [place] [address] 54471- 2507 Sep, Atrial fibrillation, unspecified type I48.91 [facility] [id number] [place] [address] 31547- 2047 Sep, Generalized anxiety disorder F41.1 and MDD (major depressive disorder), recurrent, in partial remission F33.41 [facility] [id number] [place] [address] 79062- 7768 Sep, [facility] [id number] [place] [address] 88396- 6736 Aug, Generalized anxiety disorder F41.1 [facility] [id number] [place] [address] 69300- 4338 Aug, [facility] [address] [address] 6636 Aug, Paroxysmal atrial fibrillation I48.0 and Gastro-esophageal reflux disease without esophagitis K21.9 [facility] [address] [address]- [address] Jul, [facility] [id number] [place] [address] 31972- 7788 Jul, Generalized anxiety disorder F41.1 [facility] [id number] [place] [address] 65013- 4436 Jun, Generalized anxiety disorder F41.1 and MDD (major depressive disorder), recurrent, in partial remission F33.41 [facility] [address] [address] 0432 May, Recurrent major depressive disorder, in partial remission F33.41 [facility] [address] [address]- 2265 May, Anxiety F41.9 and Paroxysmal atrial fibrillation I48.0 [facility] [address] [address]- 6922 Apr, Generalized anxiety disorder F41.1 [facility] [address] [address]- 5529 Mar, [facility] [id number] [place] [address] 30764- 1611 Mar, Generalized anxiety disorder F41.1 and MDD (major depressive disorder), recurrent, in partial remission F33.41 [facility] [address] [address]- 6014 February, Paroxysmal atrial fibrillation I48.0 and Anxiety F41.9 [facility] [address] [address] 7149 February, MDD (major depressive disorder), recurrent, in partial remission F33.41 [facility] [address] [address]- 6660 Jan, [facility] [id number] [place] [address] 10683 -5420 Jan, [facility] [address] [address]- 6028 Jan, [facility] [id number] [place] [address] 24266- 2840 Jan, [facility] [id number] [place] [address] 44646- 2247 Dec, [facility] [id number] [place] [address] 97983- 9727 Dec, Generalized anxiety disorder F41.1 [facility] [id number] [place] [address] 18341- 8155 Dec, Generalized anxiety disorder F41.1 and MDD (major depressive disorder), recurrent, in partial remission F33.41 [facility] [address] [address]- 9130 15 Dec, 2016 [facility] [id number] [place] [address] 75028- 2687 Dec, [facility] [address] [address]- 4949 Dec, [facility] [id number] [place] [address] 32657- 3575 Nov, [facility] [id number] [place] [address] 43032- 2305 Nov, Gastro-esophageal reflux disease without esophagitis K21.9 [facility] [id number] [place] [address] 40322- 9932 10 Nov, 2016 Atrial fibrillation, unspecified type I48.91 and Anxiety F41.9 [facility] [id number] [place] [address] 77332- 4681 Oct, [facility] [address] [address]- 9948 Oct, [facility] [id number] [place] [address] 93350- 1929 Oct, Depression F32.9 and Atrial fibrillation, unspecified type I48.91 [facility] [id number] [place] [address] 28402- 5903 Oct, [facility] [id number] [place] [address] 53582- 0155 Sep, Depression F32.9 [facility] [id number] [place] [address] 31391- 0816 Sep, Recurrent major depressive disorder, in partial remission F33.41 and Generalized anxiety disorder F41.1 [facility] [id number] [place] [address] 86820- 3422 Sep, Paroxysmal atrial fibrillation I48.0 and Anxiety F41.9 [facility] [id number] [place] [address] 89324- 9304 Sep, [facility] [id number] [place] [address] 11734- 2331 Sep, [facility] [id number] [place] [address] 03998- 1604 Sep, Gastro-esophageal reflux disease without esophagitis K21.9 [facility] [address] [address]- 6881 Aug, [facility] [id number] [place] [address] 93278- 8721 Aug, [facility] [id number] [place] [address] 57423- 4309 Aug, Atrial fibrillation, unspecified type I48.91 [facility] [id number] [place] [address] 97558- 9550 Jul, Major depressive disorder, recurrent, in partial remission F33.41 and Generalized anxiety disorder F41.1 [facility] [id number] [place] [address] 51682- 8339 Jul, [facility] [id number] [place] [address] 70825- 1268 30 Jun, 2016 [facility] [id number] [place] [address] 12899- 8247 15 Jun, 2016 Bronchitis J40 and Memory loss R41.3 [facility] [id number] [place] [address] 54804- 6669 14 Jun, 2016 Upper respiratory infection with cough and congestion J06.9 [facility] [id number] [place] [address] 63487- 1266 Apr, [facility] [id number] [place] [address] 70236- 8671 Apr, Major depressive disorder, recurrent, unspecified F33.9 ; Anxiety F41.9 and Psychophysiological insomnia F51.04 [facility] [id number] [place] [address] 93146- 8533 Mar, [facility] [id number] [place] [address] 31086- 0665 Mar, [facility] [id number] [place] [address] 54488- 0676 February, [facility] [id number] [place] [address] 24027- 8972 Jan, Postural hypotension I95.1 [facility] [id number] [place] [address] 64437- 7271 Jan, Recurrent major depressive disorder in remission F33.40 ; Generalized anxiety disorder F41.1 and Psychophysiological insomnia F51.04 [facility] [id number] [place] [address] 36954- 9359 Dec, Generalized anxiety disorder F41.1 [facility] [address] [address] -2185 Dec, Unspecified fall, initial encounter W19.XXXA [facility] [id number] [place] [address] 99625- 5011 Nov, Depression F32.9 and Anxiety F41.9 [facility] [id number] [place] [address] 83660- 8924 Oct, [facility] [id number] [place] [address] 76463- 7730 Oct, [facility] [address] 05505- 4068 Oct, Chronic kidney disease, stage 3 (moderate) N18.3 [facility] [id number] [place] [address] 40881- 1595 Oct, Head contusion S00.93XA ; Cervical strain S16.1XXA and Arthritis M19.90 [facility] [id number] [place] [address] 61861- 0223 Oct, Chronic kidney disease 585.9 [facility] [id number] [place] [address] 34279- 6615 Oct, Chronic kidney disease 585.9 [facility] [id number] [place] [address] 50378- 0921 Oct, [facility] [id number] [place] [address] 21524- 0043 Sep, [facility] [id number] [place] [address] 49240- 7932 Aug, Chronic kidney disease N18.9 [facility] [id number] [place] [address] 44868- 8532 Aug, Chronic kidney disease (CKD) stage G1/A1, glomerular filtration rate (GFR) equal to or greater than 90 mL/min/1.73 square meter and albuminuria creatinine ratio less than 30 mg/g N18.1 and GERD (gastroesophageal reflux disease) K21.9 [facility] [id number] [place] [address] 52758- 5082 Aug, [facility] [id number] [place] [address] 87092- 6507 Jun, Generalized anxiety disorder 300.02 ; Major depression, recurrent 296.30 and Persistent 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 [facility] [address] 93902- 8714 Jun, [facility] [id number] [place] [address] 29215- 0959 May, [facility] [id number] [place] [address] 84297- 6981 May, Generalized anxiety disorder 300.02 and Depression, major, recurrent, in remission 296.35 [facility] [id number] [place] [address] 80735- 1863 May, [facility] [id number] [place] [address] 66798- 5473 May, [facility] [id number] [place] [address] 97205- 7428 May, [facility] [id number] [place] [address] 13345- 5764 May, [facility] [id number] [place] [address] 66781- 8029 May, Chronic kidney disease 585.9 [facility] [id number] [place] [address] 45533- 9160 Apr, Chronic kidney disease 585.9 [facility] [id number] [place] [address] 91053- 8513 Apr, [facility] [id number] [place] [address] 53923- 6185 Apr, Arthropathy 716.90 ; Hyperlipidemia 272.4 ; Hypothyroidism 244.9 and GERD (gastroesophageal reflux disease) 530.81 [facility] [id number] [place] [address] 47268- 9695 Apr, Arthropathy 716.90 ; Hypothyroidism 244.9 ; Hyperlipidemia 272.4 and GERD (gastroesophageal reflux disease) 530.81 [facility] [id number] [place] [address] 58123- 9446 Mar, [facility] [id number] [place] [address] 42429- 2456 February, Depression, major, recurrent, in remission 296.35 and Generalized anxiety disorder 300.02 [facility] [id number] [place] [address] 36539- 0216 February, [facility] [id number] [place] [address] 526241- 5848 February, [facility] [id number] [place] [address] 98409- 2247 Jan, [facility] [id number] [place] [address] 529947- 3129 Jan, [facility] [id number] [place] [address] 04653838- 0744 Oct, [facility] [address] [address] 7732 Oct, [facility] [id number] [place] [address] 40072990- 0423 Oct, [facility] [address] [place] [address] 98319- 2341 Oct, [facility] [id number] [place] [address] 87653- 6743 Oct, [facility] [address] [address]- 4656 Oct, [facility] [id number] [place] [address] 79902- 6008 Sep, [facility] [place] [facility] [address] [id number] [place] [address]- 9934 Sep, [facility] [place] [facility] [address] [id number] [place] [address]- 7591 Aug, [facility] [place] [facility] [address] [id number] [place] 9630 Aug, [facility] [place] [facility] [address] [id number] [place] [address]- 4828 Aug, [facility] [place] [facility] [address] [id number] [place] [address]- 7867 Aug, [facility] [place] [facility] [address] [id number] [place] [address]- 8312 Jul, [facility] [place] [facility] [address] [id number] [place] [address]- 3237 Jul, [facility] [place] [facility] [address] [id number] [place] [address]- 2448 Jul, [facility] [place] [facility] [address] [id number] [place] [address]- 9362 Jul, [facility] [place] [facility] [address] [id number] [place] [address]- 7347 29 Jun, 2014 [facility] [place] [facility] [address] [id number] [place] [address]- 2197 Jun, [facility] [place] [facility] [address] [id number] [address]- 2438 22 Jun, 2014 [facility] [place] [facility] [address] [id number] [place] [address]- 6530 10 Jun, 2014 [facility] [place] [facility] [address] [id number] [place] [address]- 6852 Jun, [facility] [place] [facility] [address] [id number] [place] [address]- 2804 Jun, [facility] [place] [facility] [address] [id number] [place] [address]- 2529 Jun, [facility] [place] [facility] [address] [id number] [place] [address]- 3902 May, [facility] [place] [facility] [address] [id number] [place] [address]- 5668 May, [facility] [place] [facility] [address] [id number] [place] [address]- 3913 May, [facility] [place] [facility] [address] [id number] [place] [address]- 5297 May, [facility] [place] [facility] [address] [id number] [place] [address]- 9456 Apr, [facility] [place] [facility] [address] [id number] [place] [address]- 9546 Apr, [facility] [place] [facility] [address] [id number] [place] [address]- 0164 Apr, [facility] [place] [facility] [address] [id number] [place] [address]- 7166 Apr, [facility] [place] [facility] [address] [id number] [place] [address]- 7877 Apr, [facility] [place] [facility] [address] [id number] [place] [address]- 2730 Apr, [facility] [place] [facility] [address] [id number] [place] [address]- 6483 Apr, [facility] [place] [facility] [address] [id number] [place] [address]- 3214 Apr, [facility] [place] [facility] [address] [id number] [place] [address]- 3802 Mar, [facility] [place] [facility] [address] [id number] [place] [address]- 6674 Mar, [facility] [place] [facility] [address] [id number] [place] [address]- 5182 Mar, [facility] [place] [facility] [address] [id number] [place] [address]- 1936 Mar, [facility] [place] [facility] [address] [id number] [place] [address]- 0761 Mar, [facility] [place] [facility] [address] [id number] [place] [address]- 7428 Mar, [facility] [place] [facility] [address] [id number] [place] [address]- 3779 Mar, [facility] [place] [facility] [address] [id number] [place] [address]- 9363 Mar, [facility] [place] [facility] [address] [id number] [place] [address]- 8537 Dec, [facility] [place] [facility] [address] [id number] [place] [address]- 1380 Dec, [facility] [place] [facility] [address] [id number] [place] [address]- 2707 Dec, [facility] [place] [facility] [address] [id number] [place] [address] Dec, [facility] [place] [facility] [address] [id number] [place] [address] Dec, [facility] [place] [facility] [address] [id number] [place] [address] Dec, [facility] [place] [facility] [address] [id number] [place] [address] Dec, [facility] [place] [facility] [address] [id number] [place] [address] Dec, [facility] [place] [facility] [address] [id number] [place] [address] Nov, [facility] [place] [facility] [address] [id number] [place] [address] Nov, [facility] [place] [facility] [address] [id number] [place] [address] Nov, 2013 [facility] [place] [facility] [address] [id number] [place] [address] 17 Nov, 2013 [facility] [place] [facility] [address] [id number] [place] [address] 14 Nov, 2013 [facility] [place] [facility] [address] [id number] [place] [address] 14 Nov, 2013 [facility] [place] [facility] [address] [id number] [place] [address] Nov, [facility] [place] [facility] [address] [id number] [place] [address] Nov, [facility] [place] [facility] [address] [id number] [place] [address] Aug, [facility] [place] [facility] [address] [id number] [place] [address] Aug, [facility] [place] [facility] [address] [id number] [place] [address] 18 Jul, 2013 [facility] [place] [facility] [address] [id number] [place] [address] 18 Jul, 2013 [facility] [place] [facility] [address] [facility] [id number] [place] [address] 02 Jul, 2013 [facility] [place] [facility] [address] [id number] [place] [address] 30 Jun, 2012 [facility] [place] [facility] [address] [id number] [place] [address] 30 Jun, 2012 [facility] [place] [facility] [address] [id number] [place] [address] 24 Jun, 2012 [facility] [place] [facility] [address] [id number] [place] [address] 04 Sep, 2012 [facility] [place] [facility] [address] [id number] [place] [address] Jun, [facility] [place] [facility] [address] [id number] [place] [address] May, [facility] [address] [id number] [place] [address] Apr, [facility] [address] [id number] [place] [address] Apr, [facility] [address] [id number] [place] [address] Apr, [facility] [address] [id number] [place] [address] Mar, [facility] [address] [id number] [place] [address] Mar, [facility] [address] [id number] [place] [address] February, [facility] [address] [id number] [place] [address] February, [facility] [address] [id number] [place] [address] February, [facility] [address] [id number] [place] [address] February, [facility] [address] [id number] [place] [address] Jan, [facility] [address] [id number] [place] [address] Jan, [facility] [address] [id number] [place] [address] Jan, [facility] [address] [id number] [place] [address] Jan, [facility] [address] [id number] [place] [address] Dec, [facility] [address] [id number] [place] [address] 13 Dec, 2012 [facility] [address] [id number] [place] [address] Dec, [facility] [place] [facility] [address] [id number] [id number] [address] 22 Nov, 2012 [facility] [place] [facility] [address] [id number] [place] [address] 15 Nov, 2012 [facility] [place] [facility] [address] [id number] [place] [address] Nov, [facility] [address] [id number] [place] [address] Oct, [facility] [address] [id number] [place] [address] Oct, [facility] [address] [facility] [id number] [place] [address] Sep, [facility] [place] [facility] [address] [id number] [place] [address] Sep, [facility] [address] [facility] [id number] [place] [address] Sep, [facility] [place] [facility] [address] [facility] [id number] [place] [address] Sep, [facility] [address] [facility] [id number] [place] [address] Sep, [facility] [place] [facility] [address] [id number] [place] [address] Aug, [facility] [place] [facility] [address] [id number] [place] [address] Aug, [facility] [place] [facility] [address] [id number] [place] [address] Aug, [facility] [place] [facility] [address] [facility] [id number] [place] [address] Aug, [facility] [place] [facility] [address] [id number] [place] [address] Aug, [facility] [place] [facility] [address] [id number] [place] [address] Aug, [facility] [place] [facility] [address] [id number] [place] [address] Jun, [facility] [place] [facility] [address] [id number] [place] [address] Jun, [facility] [place] [facility] [address] [id number] [place] [address] Jun, [facility] [place] [facility] [address] [id number] [place] [address] May, [facility] [place] [facility] [address] [id number] [place] [address] May, [facility] [place] [facility] [address] [id number] [place] [address] May, [facility] [place] [facility] [address] [id number] [place] [address] May, [facility] [place] [facility] [address] [id number] [place] [address] Apr, [facility] [place] [facility] [address] [id number] [place] [address] Mar, [facility] [place] [facility] [address] [id number] [place] [address] Mar, [facility] [place] [facility] [address] [id number] [place] [address] Mar, [facility] [place] [facility] [address] [id number] [place] [address] February, [facility] [place] [facility] [address] [id number] [place] [address] February, [facility] [place] [facility] [address] [id number] [place] [address] February, [facility] [place] [facility] [address] [id number] [place] [address] February, [facility] [place] [facility] [address] [id number] [place] [address] Dec, [facility] [place] [facility] [address] [id number] [place] [address] Dec, [facility] [place] [facility] [address] [id number] [place] [address] Dec, [facility] [place] [facility] [address] [id number] [place] [address] Dec, [facility] [place] [facility] [address] [id number] [place] [address] Nov, [facility] [place] [facility] [address] [id number] [place] [address] Nov, [facility] [place] [facility] [address] [id number] [place] [address] Nov, [facility] [place] [facility] [address] [id number] [place] [address] Nov, [facility] [place] [facility] [address] [id number] [place] [address] Nov, [facility] [place] [facility] [address] [id number] [place] [address] Oct, [facility] [place] [facility] [address] [id number] [place] [address] Oct, [facility] [place] [facility] [address] [id number] [place] [address] Oct, [facility] [place] [facility] [address] [id number] [place] [address] Aug, [facility] [place] [facility] [address] [id number] [place] [address] Aug, [facility] [place] [facility] [address] [id number] [place] [address] Jul, [facility] [place] [facility] [address] [id number] [place] [address] Jul, [facility] [place] [facility] [address] [id number] [place] [address] Jul, [facility] [place] [facility] [address] [id number] [place] [address] Jul, [facility] [place] [facility] [address] [id number] [place] [address] Jul, [facility] [place] [facility] [address] [id number] [place] [address] Jul, [facility] [place] [facility] [address] [id number] [place] [address] Jul, [facility] [place] [facility] [address] [id number] [place] [address] Jul, [facility] [place] [facility] [address] [id number] [place] [address] May, [facility] [place] [facility] [address] [id number] [place] [address] February, [facility] [place] [facility] [address] [id number] [place] [address]84 Nov, [facility] [place] [facility] [address] [id number] [place] [address] Sep, [facility] [place] [facility] [address] [id number] [place] [address] Aug, [facility] [place] [facility] [address] [id number] [place] [address] 14 Oct, 2009 [facility] [place] [facility] [address] [id number] [place] [address] Jul, [facility] [place] [facility] [address] [id number] [place] [address] Jun, [facility] [address] [facility] [id number] [place] [address] Mar, [facility] [address] [facility] [id number] [place] [address] Mar, [facility] [address] [facility] [id number] [place] [address] 17 Nov, 2008 IMMUNIZATIONS No Known Immunizations SOCIAL HISTORY Never Assessed REASON FOR VISIT xanax refill PLAN OF CARE VITAL SIGNS MEDICATIONS [...]
--- OUTSIDE RECORDS SUMMARY | 2019-01-24 07:54 | XMS REPORT ---
Author Author ARI MURRELL [facility] Address [address] [place] [address] Care Team Providers Care Director Credit Risk Name Role Phone ARI MURRELL Unavailable PROBLEMS Type Condition ICD9-CM Code GPO69-PQ Code Onset Dates Condition Status SNOMED Code Problem Paroxysmal atrial fibrillation I48.0 Active 526456105 Problem Generalized anxiety disorder F41.1 Active 64322242 Problem Gastro-esophageal reflux disease without esophagitis K21.9 Active 607445870 Problem Chronic kidney disease, stage 1 N18.1 Active 557000234 Problem Secondary hyperparathyroidism of renal origin N25.81 Active 76352961 Problem 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 Active 914228036 Problem MDD (major depressive disorder), recurrent, in partial remission F33.41 Active 52203878 Problem Acquired hypothyroidism E03.9 Active 692110275 Problem Chronic diastolic heart failure I50.32 Active 847229509 Problem Arthritis M19.90 Active 3256242 Problem Depression F32.9 Active 32308550 Problem Anxiety F41.9 Active 07237438 Problem Chronic kidney disease (CKD) stage G1/A1, glomerular filtration rate ( GFR) equal to or greater than 90 mL/min/1.73 square meter and albuminuria creatinine ratio less than 30 mg/g N18.1 Active 146948407 Problem Atrial fibrillation, unspecified type I48.91 Active 20099811 ALLERGIES Substance Reaction Event Type Date Status morphine vomiting Drug Allergy Sep, Active Adhesive Tape itching, rash Drug Allergy Sep, Active ENCOUNTERS Encounter Location Date Diagnosis [facility], [place] [address] [facility] [id number] [address] February, Medicare annual wellness visit, initial Z00.00 ; MDD (major depressive disorder), recurrent, in partial remission F33.41 ; Atrial fibrillation, unspecified type I48.91 ; Chronic diastolic heart failure I50.32 ; Secondary hyperparathyroidism of renal origin N25.81 ; Acquired hypothyroidism E03.9 ; Anxiety F41.9 ; Chronic kidney disease, stage 1 N18.1 and Encounter for immunization Z23 [place] [address] [address] February, Closed fracture of one rib of right side, initial encounter S22.31XA ; Acute cystitis with hematuria N30.01 ; Right flank pain R10.9 and Rib pain on right side R07.81 [place] [address] [address] Jan, Acquired hypothyroidism E03.9 ; 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 ; Chronic kidney disease (CKD) stage G1/A1, glomerular filtration rate (GFR) equal to or greater than 90 mL/min/1.73 square meter and albuminuria creatinine ratio less than 30 mg/g N18.1 ; Paroxysmal atrial fibrillation I48.0 ; Chronic diastolic heart failure I50.32 and Secondary hyperparathyroidism of renal origin N25.81 [place] [address] [address]- [address] Jan, Arthritis M19.90 [place] [address] [address]- 5[address] Jan, Paroxysmal atrial fibrillation I48.0 [place] [address] [address]- 74[address] Jan, Paroxysmal atrial fibrillation I48.0 [place] [address] [address]- 6603 Jan, [place] [address] [address]- 9571 Jan, Generalized anxiety disorder F41.1 [place] [address] 67[address]- 1180 Jan, Generalized anxiety disorder F41.1 and MDD (major depressive disorder), recurrent, in partial remission F33.41 [place] [address] [address]- 1044 Dec, Arthritis M19.90 [facility], [place] [address] [address] Dec, [facility], [place] [address] [place] [id number] [place] [address] 70347- 0316 Nov, Arthritis M19.90 ; Chronic kidney disease (CKD) stage G1/A1 , glomerular filtration rate (GFR) equal to or greater than 90 mL/min/1.73 square meter and albuminuria creatinine ratio less than 30 mg/g N18.1 and Anxiety F41.9 [facility], [place] [address] [place] [id number] [place] [address] 44784- 7267 Nov, [facility], [place] [address] [place] [id number] [place] [address] 00063- 2747 Nov, [facility], [place] [address] [place] [id number] [place] [address] 79018- 9751 Nov, [facility], [place] [address] [place] [id number] [place] [address] 90591- 1940 Nov, [facility], [place] [address] [place] [id number] [place] [address] 61996- 7057 Nov, [facility], [place] [address] [place] [id number] [place] [address] 06950- 2218 Oct, Generalized anxiety disorder F41.1 [facility], [place] [address] [place] [id number] [place] [address] 74153- 2872 Sep, Atrial fibrillation, unspecified type I48.91 [facility], [place] [address], [place] [address] Sep, Generalized anxiety disorder F41.1 and MDD (major depressive disorder), recurrent, in partial remission F33.41 [facility], [place] [id number] [place] [address] 24919- 6823 Sep, [facility], [place] [address] [place] [id number] [place] [address] 15962- 0860 Aug, Generalized anxiety disorder F41.1 [facility], [place] [address], [place] [address] Aug, [facility], [place] [address] [place] [id number] [place] [address] 53215- 7594 Aug, Paroxysmal atrial fibrillation I48.0 and Gastro-esophageal reflux disease without esophagitis K21.9 [facility], [place] [address] [place] [id number] [place] [address] 47520- 1784 Jul, [facility], [place] [address] [place] [id number] [place] [address] 44136- 8183 Jul, Generalized anxiety disorder F41.1 [facility], [place] [address] [place] [id number] [place] [address] 51067- 0031 Jun, Generalized anxiety disorder F41.1 and MDD (major depressive disorder), recurrent, in partial remission F33.41 [facility], [place] [address] [place] [id number] [place] [address] 93732- 7979 May, Recurrent major depressive disorder, in partial remission F33.41 [facility], [place] [address] [place] [id number] [place] [address] 55198- 6099 May, Anxiety F41.9 and Paroxysmal atrial fibrillation I48.0 [facility], [place] [id number] [place] [address] 69787- 1761 Apr, Generalized anxiety disorder F41.1 [facility], [place] [address] [id number] [address] Mar, [facility], [place] [id number] [place] [address] 84779- 5726 Mar, Generalized anxiety disorder F41.1 and MDD (major depressive disorder), recurrent, in partial remission F33.41 [facility], [place] [address], [place] [address] February, Paroxysmal atrial fibrillation I48.0 and Anxiety F41.9 [facility], [place] [address] [place] [id number] [place] [address] 86040- 7891 February, MDD (major depressive disorder), recurrent, in partial remission F33.41 [facility], [place] [id number] [place] [address] 34356- 0676 Jan, [facility] [address] [address] Jan, [facility], [place] [address] [place] [id number] [place] [address] 52266- 4257 Jan, [facility], [place] [id number] [place] [address] 95599- 4713 Jan, [facility], [place] [address] [place] [id number] [place] [address] 88249- 6480 Dec, [facility], [place] [address] [place] [id number] [place] [address] 64577- 9280 Dec, Generalized anxiety disorder F41.1 [facility], [place] [address] [place] [id number] [place] [address] 39890- 4482 Dec, Generalized anxiety disorder F41.1 and MDD (major depressive disorder), recurrent, in partial remission F33.41 [facility], [place] [address] [place] [id number] [place] [address] 91774- 9162 Dec, [facility], [place] [id number] [place] [address] 79602- 5910 Dec, [facility], [place] [address] [place] [id number] [place] [address] 01633- 6177 Dec, [facility], [place] [id number] [place] [address] 22626- 2857 Nov, [facility], [place] [address] [place] [id number] [place] [address] 82893- 3476 Nov, Gastro-esophageal reflux disease without esophagitis K21.9 [facility], [place] [address], [place] [address]- 6074 10 Nov, 2016 Atrial fibrillation, unspecified type I48.91 and Anxiety F41.9 [facility], [place] [id number] [place] [address] 44521- 8441 Oct, [facility], [place] [address] [place] [id number] [place] [address] 60026- 5462 Oct, [facility], [place] [address] [place] [id number] [place] [address] 50992- 3329 Oct, Depression F32.9 and Atrial fibrillation, unspecified type I48.91 [facility], [place] [address] [place] [id number] [place] [address] 98682- 4644 Oct, [facility], [place] [address] [place] [id number] [place] [address] 10917- 2680 Sep, Depression F32.9 [facility], [place] [address] [place] [id number] [place] [address] 37954- 4024 Sep, Recurrent major depressive disorder, in partial remission F33.41 and Generalized anxiety disorder F41.1 [facility], [place] [address] [place] [id number] [place] [address] 72488- 3437 Sep, Paroxysmal atrial fibrillation I48.0 and Anxiety F41.9 [facility], [place] [address] [place] [id number] [place] [address] 17249- 1539 Sep, [facility], [place] [address] [place] [id number] [place] [address] 03925- 2235 Sep, [facility], [place] [address] [place] [id number] [place] [address] 64310- 1583 Sep, Gastro-esophageal reflux disease without esophagitis K21.9 [facility], [place] [address] [place] [id number] [place] [address] 69614- 9011 Aug, [facility], [place] [address] [place] [id number] [place] [address] 61550- 7985 Aug, [facility], [place] [address] [place] [id number] [place] [address] 80443- 9997 Aug, Atrial fibrillation, unspecified type I48.91 [place] [id number] [place] [address] 16506- 7892 11 Jul, 2016 Major depressive disorder, recurrent, in partial remission F33.41 and Generalized anxiety disorder F41.1 [place] [address] [place] [id number] [place] [address] 85903- 1607 11 Jul, 2016 [place] [address] [place] [id number] [place] [address] 99229- 1230 30 Jun, 2016 [place] [address] [place] [id number] [place] [address] 39057- 6642 15 Jun, 2016 Bronchitis J40 and Memory loss R41.3 [place] [address] 76376- 6685 14 Jun, 2016 Upper respiratory infection with cough and congestion J06.9 [place] [address] [place] [id number] [place] [address] 26988- 2364 Apr, [place] [address] [place] [id number] [place] [address] 61209- 9304 Apr, Major depressive disorder, recurrent, unspecified F33.9 ; Anxiety F41.9 and Psychophysiological insomnia F51.04 [place] [address] [place] [id number] [place] [address] 75477- 2618 Mar, [place] [address] [place] [id number] [place] [address] 16193- 5589 Mar, [place] [address] [place] [id number] [place] [address] 43291- 5903 February, [place] [address] [place] [address] 65252- 8744 Jan, Postural hypotension I95.1 [place] [address] [place] [id number] [place] [address] 84478- 8549 14 Jan, 2016 Recurrent major depressive disorder in remission F33.40 ; Generalized anxiety disorder F41.1 and Psychophysiological insomnia F51.04 [place] [address] [place] [id number] [place] [address] 31071- 0498 Dec, Generalized anxiety disorder F41.1 [facility] [id number] [place] [address] 35463 -9889 Dec, Unspecified fall, initial encounter W19.XXXA [facility], [place] [address] [place] [id number] [place] [address] 47838- 0711 Nov, Depression F32.9 and Anxiety F41.9 [facility], [place] [address] [place] [id number] [place] [address] 62531- 7557 Oct, [place] [address] [place] [id number] [place] [address] 41666- 7984 Oct, [facility], [place] [address] 53805- 2351 Oct, Chronic kidney disease, stage 3 (moderate) N18.3 [place] [address] 23315- 7878 Oct, Head contusion S00.93XA ; Cervical strain S16.1XXA and Arthritis M19.90 [place] [address] [place] [id number] [place] [address] 71276- 4490 Oct, Chronic kidney disease 585.9 [place] [address] [place] [id number] [place] [address] 76996- 2646 Oct, Chronic kidney disease 585.9 [place] [address] [place] [id number] [place] [address] 74590- 7765 Oct, [place] [address] [place] [id number] [place] [address] 09698- 6431 Sep, [place] [address] [place] [id number] [place] [address] 24899- 2355 Aug, Chronic kidney disease N18.9 [facility], [place] [address] [place] [id number] [place] [address] 71357- 1730 Aug, Chronic kidney disease (CKD) stage G1/A1, glomerular filtration rate (GFR) equal to or greater than 90 mL/min/1.73 square meter and albuminuria creatinine ratio less than 30 mg/g N18.1 and GERD (gastroesophageal reflux disease) K21.9 [facility], [place] [address] [place] [address] 77685- 5700 Aug, [facility], [place] [address] [place] [id number] [place] [address] 06862- 9445 Jun, Generalized anxiety disorder 300.02 ; Major depression, recurrent 296.30 and Persistent 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 [facility], [place] [address] [place] [id number] [place] [address] 06421- 9423 Jun, [facility], [place] [address] [place] [id number] [place] [address] 91049- 2612 May, [facility], [place] [address] [place] [id number] [place] [address] 52909- 4026 May, Generalized anxiety disorder 300.02 and Depression, major, recurrent, in remission 296.35 [facility], [place] [address] [place] [id number] [place] [address] 18677- 4539 May, [facility], [place] [address] [place] [id number] [place] [address] 86147- 2680 May, [facility], [place] [address] [place] [address] 03361- 4271 May, [facility], [place] [address] [place] [id number] [place] [address] 58066- 9213 May, [facility], [place] [address] [place] [address] 46917- 2549 May, Chronic kidney disease 585.9 [facility], [place] [address] [place] [id number] [place] [address] 15503- 0516 Apr, Chronic kidney disease 585.9 [facility], [place] [address] [place] [address] 33441- 4509 Apr, [facility], [place] [address] [place] [id number] [place] [address] 97606- 9086 Apr, Arthropathy 716.90 ; Hyperlipidemia 272.4 ; Hypothyroidism 244.9 and GERD (gastroesophageal reflux disease) 530.81 [facility], [place] [address] [place] [id number] [place] [address] 62116- 5756 Apr, Arthropathy 716.90 ; Hypothyroidism 244.9 ; Hyperlipidemia 272.4 and GERD (gastroesophageal reflux disease) 530.81 [facility], [place] [address] [place] [id number] [place] [address] 73735- 5006 Mar, [facility], [place] [address] [place] [id number] [place] [address] 84500- 8714 February, Depression, major, recurrent, in remission 296.35 and Generalized anxiety disorder 300.02 [facility], [place] [address] [place] [id number] [place] [address] 07152- 9826 February, [facility], [place] [address] [place] [id number] [place] [address] 22981- 7806 February, [facility], [place] [address] [place] [id number] [place] [address] 10005- 4446 Jan, [facility], [place] [address] [place] [id number] [place] [address] 62005- 1433 Jan, [facility], [place] [id number] [place] [address] 32712347- 1979 Oct, [facility], [place] [address] [place] [address] 27475- 5336 Oct, [facility], [place] [address] [place] [address] 78048- 9246 Oct, [facility], [place] [address] [place] [id number] [place] [address] 74610- 0276 Oct, [facility], [place] [address] [place] [address] [address]- 6876 Oct, [facility], [place] [address] [place] [address] 29733- 8309 Oct, [facility] [place] [facility] [address] [id number] [place] [address]- 3973 Sep, [facility] [place] [facility] [address] [id number] [place] [address]- 4610 Sep, [facility] [place] [facility] [address] [id number] [place]- 6063 Aug, [facility] [place] [facility] [address] [id number] [place] [address]- 8025 Aug, [facility] [place] [facility] [address] [id number] [place] 1066 Aug, [facility] [place] [facility] [address] [id number] [place] [address]- 3648 Aug, [facility] [place] [facility] [address] [id number] [place] [address]- 4278 Jul, [facility] [place] [facility] [address] [id number] [place] [address]- 8123 Jul, [facility] [place] [facility] [address] [id number] [place] [address]- 2342 Jul, [facility] [place] [facility] [address] [id number] [place] [address]- 0007 Jul, [facility] [place] [facility] [address] [id number] [place] [address]- 3402 29 Jun, 2014 [facility] [place] [facility] [address] [id number] [place] [address]- 0146 22 Jun, 2014 [facility] [place] [facility] [address] [id number] [place] [address]- 6919 22 Jun, 2014 [facility] [place] [facility] [address] [id number] [place] [address]- 0390 10 Jun, 2014 [facility] [place] [facility] [address] [id number] [place] [address]- 2878 10 Jun, 2014 [facility] [place] [facility] [address] [id number] [place] [address]- 4870 Jun, [facility] [place] [facility] [address] [id number] [place] [address]- 0874 Jun, [facility] [place] [facility] [address] [id number] [place] [address]- 7252 May, [facility] [place] [facility] [address] [id number] [place] [address]- 6738 May, [facility] [place] [facility] [address] [id number] [place] [address]- 5306 May, [facility] [place] [facility] [address] [id number] [place] [address]- 8187 May, [facility] [place] [facility] [address] [id number] [place] [address]- 0779 Apr, [facility] [place] [facility] [address] [id number] [place] [address]- 1659 Apr, [facility] [place] [facility] [address] [id number] [place] [address]- 8237 Apr, [facility] [place] [facility] [address] [id number] [place] [address]- 0232 Apr, [facility] [place] [facility] [address] [id number] [place] [address]- 4562 Apr, [facility] [place] [facility] [address] [id number] [place] [address] Apr, [facility] [place] [facility] [address] [id number] [place] [address] Apr, [facility] [place] [facility] [address] [id number] [place] [address] Apr, [facility] [place] [facility] [address] [id number] [place] [address] Mar, [facility] [place] [facility] [address] [id number] [place] [address] Mar, [facility] [place] [facility] [address] [id number] [place] [address] Mar, [facility] [place] [facility] [address] [id number] [place] [address] Mar, [facility] [place] [facility] [address] [id number] [place] [address] 2006 Mar, [facility] [place] [facility] [address] [id number] [place] [address] Mar, [facility] [place] [facility] [address] [id number] [place] [address] Mar, [facility] [place] [facility] [address] [id number] [place] [address] Mar, [facility] [place] [facility] [address] [id number] [place] [address] Dec, [facility] [place] [facility] [address] [id number] [place] [address] Dec, [facility] [place] [facility] [address] [id number] [place] [address] Dec, [facility] [place] [facility] [address] [id number] [place] [address] Dec, [facility] [place] [facility] [address] [id number] [place] [address] Dec, [facility] [place] [facility] [address] [id number] [place] [address] Dec, [facility] [place] [facility] [address] [id number] [place] [address] Dec, [facility] [place] [facility] [address] [id number] [place] [address] Dec, [facility] [place] [facility] [address] [id number] [place] [address] Nov, [facility] [place] [facility] [address] [id number] [place] [address] Nov, 2013 [facility] [place] [facility] [address] [id number] [place] [address] Nov, [facility] [place] [facility] [address] [id number] [place] [address] Nov, [facility] [place] [facility] [address] [facility] [id number] [place] [address] Nov, [facility] [place] [facility] [address] [id number] [place] [address] Nov, [facility] [place] [facility] [address] [id number] [place] [address] Nov, [facility] [place] [facility] [address] [id number] [place] [address] Nov, [facility] [place] [facility] [address] [facility] [id number] [place] [address] Aug, [facility] [place] [facility] [address] [id number] [place] [address] Aug, [facility] [place] [facility] [address] [id number] [place] [address] Jul, [facility] [place] [facility] [address] [facility] [id number] [place] [address] Jul, [facility] [place] [facility] [address] [facility] [id number] [place] [address] Jul, [facility] [place] [facility] [address] [facility] [id number] [place] [address] 30 Jun, 2013 [facility] [place] [facility] [address] [id number] [place] [address] 30 Jun, 2013 [facility] [place] [facility] [address] [facility] [id number] [place] [address] 24 Jun, 2013 [facility] [place] [facility] [address] [facility] [id number] [place] [address] 04 Jun, 2013 [facility] [place] [facility] [address] [id number] [place] [address] Jun, [facility] [address] [id number] [place] [address] May, [facility] [address] [id number] [place] [address] Apr, [facility] [address] [id number] [place] [address] Apr, [facility] [address] [id number] [place] [address] Apr, [facility] [address] [id number] [place] [address] Mar, [facility] [address] [id number] [place] [address] Mar, [facility] [address] [id number] [place] [address] February, [facility] [address] [id number] [place] [address] February, [facility] [address] [id number] [place] [address] February, [facility] [address] [id number] [place] [address] February, [facility] [address] [id number] [place] [address] Jan, [facility] [address] [id number] [place] [address] Jan, [facility] [place] [facility] [address] [id number] [place] [address] Jan, [facility] [address] [id number] [place] [address] Jan, [facility] [address] [id number] [place] [address] Dec, [facility] [address] [id number] [place] [address] 13 Dec, 2012 [facility] [place] [facility] [address] [id number] [place] [address] Dec, [facility] [place] [facility] [address] [id number] [place] [address] 22 Nov, 2012 [facility] [place] [facility] [address] [id number] [place] [address] 15 Nov, 2012 [facility] [place] [facility] [address] [id number] [place] [address] Nov, [facility] [place] [facility] [address] [id number] [place] [address] Oct, [facility] [place] [facility] [address] [id number] [place] [address] Oct, [facility] [place] [facility] [address] [id number] [place] [address] Sep, [facility] [place] [facility] [address] [id number] [place] [address] Sep, [facility] [place] [facility] [address] [id number] [place] [address] Sep, [facility] [place] [facility] [address] [id number] [place] [address] Sep, [facility] [place] [facility] [address] [id number] [place] [address] Sep, [facility] [place] [facility] [address] [id number] [place] [address] Aug, [facility] [place] [facility] [address] [id number] [place] [address] Aug, [facility] [place] [facility] [address] [id number] [place] [address] Aug, [facility] [place] [facility] [address] [id number] [place] [address] Aug, [facility] [place] [facility] [address] [id number] [place] [address] Aug, [facility] [place] [facility] [address] [id number] [place] [address] Aug, [facility] [place] [facility] [address] [id number] [place] [address] Jun, [facility] [place] [facility] [address] [id number] [place] [address] Jun, [facility] [place] [facility] [address] [id number] [place] [address] Jun, [facility] [place] [facility] [address] [id number] [place] [address] May, [facility] [place] [facility] [address] [id number] [place] [address]698 May, [facility] [place] [facility] [address] [id number] [place] [address] May, [facility] [place] [facility] [address] [id number] [place] [address] May, [facility] [place] [facility] [address] [id number] [place] [address] Apr, [facility] [place] [facility] [address] [id number] [place] [address] Mar, [facility] [place] [facility] [address] [id number] [place] [address] Mar, [facility] [place] [facility] [address] [id number] [place] [address] Mar, [facility] [place] [facility] [address] [id number] [place] [address] February, [facility] [place] [facility] [address] [id number] [place] [address] February, [facility] [place] [facility] [address] [id number] [place] [address] February, [facility] [place] [facility] [address] [id number] [place] [address] February, [facility] [place] [facility] [address] [id number] [place] [address]26 Dec, [facility] [place] [facility] [address] [id number] [place] [address] 1346 Dec, [facility] [address] [id number] [place] [address]295 Dec, [facility] [place] [facility] [address] [id number] [place] [address]- [address]186 Dec, [facility] [address] [id number] [place] [address] 67[address] Nov, [facility] [place] [facility] [address] [id number] [place] [address]68 Nov, [facility] [place] [facility] [address] [id number] [place] [address] Nov, [facility] [place] [facility] [address] [id number] [place] [address] Nov, [facility] [place] [facility] [address] [id number] [place] [address] Nov, [facility] [place] [facility] [address] [id number] [place] [address] Oct, [facility] [place] [facility] [address] [id number] [place] [address]186 Oct, [facility] [place] [facility] [address] [id number] [place] [address] 9316 Oct, [facility] [place] [facility] [address] [id number] [place] [address]- [address]46 Aug, [facility] [place] [facility] [address] [id number] [place] [address] 8970 Aug, [facility] [place] [facility] [address] [id number] [place] [address]- 89[address] Jul, [facility] [place] [facility] [address] [id number] [place] [address]- 5574 Jul, [facility] [place] [facility] [address] [id number] [place] [address]- [address] Jul, [facility] [place] [facility] [address] [id number] [place] [address]- [address] Jul, [facility] [place] [facility] [address] [id number] [place] [address] Jul, [facility] [place] [facility] [address] [id number] [place] [address]- [address]69 Jul, [facility] [place] [facility] [address] [id number] [place] [address]- 34[address] Jul, [facility] [place] [facility] [address] [id number] [place] [address]- 9605 Jul, [facility] [place] [facility] [address] [id number] [place] [address]- 73[address] May, [facility] [place] [facility] [address] [id number] [place] [address]- 6198 February, [facility] [place] [facility] [address] [id number] [place] [address]- [address] Nov, [facility] [place] [facility] [address] [id number] [place] [address]- 2472 Sep, [facility] [place] [facility] [address] [id number] [place] [address]- [address]994 Aug, [facility] [place] [facility] [address] [id number] [place] [address]- 4534 Oct, [facility] [place] [facility] [address] [id number] [place] [address]- [address]168 Jul, [facility] [place] [address] [facility] [id number], [place] [address] Jun, [facility] [place] [address] [facility] [id number], [place] [address] Mar, [facility] [place] [address] [facility] [id number], [place] [address] Mar, [facility] [place] [address] [facility] [id number], [place] [address] Nov, IMMUNIZATIONS No Known Immunizations SOCIAL HISTORY Never Assessed REASON FOR VISIT F/U----MALINAennettECHO PLAN OF CARE Activity Details Follow Up 3 Months Reason: f/u VITAL SIGNS Height 66 in 2017-10-11 Weight 135 lbs 2017-10-11 Heart Rate 70 bpm 2017-10-11 Respiratory Rate 20 2017-10-11 BMI 21.79 kg/m2 2017-10-11 Blood pressure systolic 102 mmHg 2017-10-11 Blood pressure diastolic 70 mmHg 2017-10-11 MEDICATIONS Medication Instructions Dosage Frequency Start Date End Date Duration Status Lasix 40 mg Orally every other day 1/2 tablet Active Omeprazole 20 mg Orally Once a day 1 capsule 24h Apr, 90 days Active Eliquis 2.5 MG Orally 2 times a day 1 tablet 12h Active Toprol XL 25 MG Orally Once a day 1 tablet 24h Active Polyethylene Glycol 3350 Orally 2 times a day MIX 17 GRAMS IN 8 OZ OF SUITABLE LIQUID 12h 30 Active Aspir-Low 81 MG Orally three times weekly 1 tablet Active Metoclopramide HCl 5MG Orally 3 times a day 1 tablet 8h 90 days Active Iron (Ferrous Gluconate) 256 (28 Fe) MG Active Alprazolam 2 MG Orally 3 times a day 1 tablet 8h Active Docusate Sodium 50 MG Orally 2 times a day 1 capsule as needed 12h Active BuPROPion HCl ER (XL) 300 MG Orally Once a day TAKE ONE TABLET BY MOUTH ONCE DAILY 24h Active Levothyroxine Sodium 25 MCG TAKE ONE TABLET BY MOUTH DAILY 30 Active RESULTS No Results PROCEDURES Procedure Date Ordered Result Body Site [facility] VISIT ESTABLISHED PATIENT Oct 11, 2017 INSTRUCTIONS MEDICATIONS ADMINISTERED No Known Medications [...]
--- OUTSIDE RECORDS SUMMARY | 2019-01-24 07:55 | XMS REPORT ---
Author Author [facility] Address [address] [place] [address] Care Team Providers Care Director Hris Name Role Phone ARI MURRELL Unavailable PROBLEMS Type Condition ICD9-CM Code [id number] Code Onset Dates Condition Status SNOMED Code Problem Paroxysmal atrial fibrillation I48.0 Active 286136683 Problem Generalized anxiety disorder F41.1 Active 97431437 Problem Gastro-esophageal reflux disease without esophagitis K21.9 Active 421227889 Problem Chronic kidney disease, stage 1 N18.1 Active 541396686 Problem Secondary hyperparathyroidism of renal origin N25.81 Active 96381577 Problem 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 Active 180423776 Problem MDD (major depressive disorder), recurrent, in partial remission F33.41 Active 96605326 Problem Acquired hypothyroidism E03.9 Active 489189667 Problem Chronic diastolic heart failure I50.32 Active 691113866 Problem Arthritis M19.90 Active 6905148 Problem Depression F32.9 Active 07987115 Problem Anxiety F41.9 Active 66680391 Problem Chronic kidney disease (CKD) stage G1/A1, glomerular filtration rate ( GFR) equal to or greater than 90 mL/min/1.73 square meter and albuminuria creatinine ratio less than 30 mg/g N18.1 Active 908003271 Problem Atrial fibrillation, unspecified type I48.91 Active 93489584 ALLERGIES No Information ENCOUNTERS Encounter Location Date Diagnosis [facility] [place] [address] [facility] [id number] [address] Apr, [facility] [place] [address] [facility] [id number] [address] February, Medicare annual wellness visit, initial Z00.00 ; MDD (major depressive disorder), recurrent, in partial remission F33.41 ; Atrial fibrillation, unspecified type I48.91 ; Chronic diastolic heart failure I50.32 ; Secondary hyperparathyroidism of renal origin N25.81 ; Acquired hypothyroidism E03.9 ; Anxiety F41.9 ; Chronic kidney disease, stage 1 N18.1 and Encounter for immunization Z23 [place] [address] [address] February, Closed fracture of one rib of right side, initial encounter S22.31XA ; Acute cystitis with hematuria N30.01 ; Right flank pain R10.9 and Rib pain on right side R07.81 [place] [address] [address] Jan, Acquired hypothyroidism E03.9 ; 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 ; Chronic kidney disease (CKD) stage G1/A1, glomerular filtration rate (GFR) equal to or greater than 90 mL/min/1.73 square meter and albuminuria creatinine ratio less than 30 mg/g N18.1 ; Paroxysmal atrial fibrillation I48.0 ; Chronic diastolic heart failure I50.32 and Secondary hyperparathyroidism of renal origin N25.81 [place] [address] [address]- [address] Jan, Arthritis M19.90 [place] [address] [address]68- 3781 Jan, Paroxysmal atrial fibrillation I48.0 [place] [address] [address]60- 8578 Jan, Paroxysmal atrial fibrillation I48.0 [place] [address] 59489- 0760 Jan, [place] [address] [place] [id number] [place] [address] 13423- 9092 Jan, Generalized anxiety disorder F41.1 [place] [address] [address]- [address] Jan, Generalized anxiety disorder F41.1 and MDD (major depressive disorder), recurrent, in partial remission F33.41 [place] [address] 17562- 7250 Dec, Arthritis M19.90 [facility] [place] [address] [place] [id number] [place] [address] 18555- 8874 Dec, [facility] [place] [address] [place] [id number] [place] [address] 18544- 8391 Nov, Arthritis M19.90 ; Chronic kidney disease (CKD) stage G1/A1 , glomerular filtration rate (GFR) equal to or greater than 90 mL/min/1.73 square meter and albuminuria creatinine ratio less than 30 mg/g N18.1 and Anxiety F41.9 [facility] [place] [address] [place] [id number] [place] [address] 26674- 1583 Nov, [place] [address] [place] [id number] [place] [address] 29265- 8262 Nov, [facility] [place] [address] [place] [id number] [place] [address] 69165- 7584 Nov, [facility] [place] [address] [place] [id number] [place] [address] 30669- 2888 Nov, [facility] [place] [address] [place] [id number] [place] [address] 72157- 5693 Nov, [facility] [place] [address] [place] [id number] [place] [address] 03610- 1536 Oct, Generalized anxiety disorder F41.1 [facility] [place] [address] [place] [id number] [place] [address] 67594- 6755 Sep, Atrial fibrillation, unspecified type I48.91 [facility] [place] [address] [place] [address] 00363- 8991 Sep, Generalized anxiety disorder F41.1 and MDD (major depressive disorder), recurrent, in partial remission F33.41 [facility] [place] [id number] [place] [address] 96952- 8024 Sep, [facility] [place] [address] [place] [id number] [place] [address] 37961- 6595 Aug, Generalized anxiety disorder F41.1 [facility] [place] [address] [address] Aug, [facility] [place] [address] [place] [address] 94658- 7270 Aug, Paroxysmal atrial fibrillation I48.0 and Gastro-esophageal reflux disease without esophagitis K21.9 [facility] [place] [address] [place] [id number] [place] [address] 19842- 9901 Jul, [facility] [place] [address] [place] [id number] [place] [address] 03858- 1301 Jul, Generalized anxiety disorder F41.1 [place] [address] [place] [id number] [place] [address] 44736- 3145 Jun, Generalized anxiety disorder F41.1 and MDD (major depressive disorder), recurrent, in partial remission F33.41 [facility] [place] [address] [place] [id number] [place] [address] 92080- 6777 May, Recurrent major depressive disorder, in partial remission F33.41 [facility] [place] [address] [place] [id number] [place] [address] 59041- 0339 May, Anxiety F41.9 and Paroxysmal atrial fibrillation I48.0 [place] [address] [place] [id number] [place] [address] 67699- 4484 Apr, Generalized anxiety disorder F41.1 [facility] [place] [id number] [place] [address] 93991- 9874 Mar, [facility] [place] [address] [place] [address] 61627- 8429 Mar, Generalized anxiety disorder F41.1 and MDD (major depressive disorder), recurrent, in partial remission F33.41 [facility] [place] [id number] [place] [address] 05629- 9858 February, Paroxysmal atrial fibrillation I48.0 and Anxiety F41.9 [facility] [place] [address] [id number] [address] February, MDD (major depressive disorder), recurrent, in partial remission F33.41 [facility] [place] [address] [address] Jan, [facility] [address] [address] Jan, [facility] [place] [address] [place] [id number] [place] [address] 45328- 3797 Jan, [facility] [place] [id number] [place] [address] 92088- 7251 Jan, [facility] [place] [address] [place] [id number] [place] [address] 05224- 2685 Dec, [facility] [place] [address] [place] [id number] [place] [address] 75296- 6164 Dec, Generalized anxiety disorder F41.1 [facility] [place] [address] [place] [id number] [place] [address] 09784- 7639 Dec, Generalized anxiety disorder F41.1 and MDD (major depressive disorder), recurrent, in partial remission F33.41 [facility] [place] [address] [address]- 4762 Dec, [facility] [place] [address] [address]- 6536 Dec, [facility] [place] [id number] [place] [address] 13122- 1210 Dec, [facility] [place] [id number] [place] [address] 93152- 8088 Nov, [facility] [place] [address] [place] [id number] [place] [address] 55346- 9797 Nov, Gastro-esophageal reflux disease without esophagitis K21.9 [facility] [place] [address] [address]- 2961 10 Nov, 2016 Atrial fibrillation, unspecified type I48.91 and Anxiety F41.9 [facility] [place] [address] [address]- 1613 Oct, [facility] [place] [address] [place] [id number] [place] [address] 18383- 1027 Oct, [facility] [place] [address] [place] [id number] [place] [address] 37139- 5124 Oct, Depression F32.9 and Atrial fibrillation, unspecified type I48.91 [facility] [place] [address] [place] [id number] [place] [address] 20571- 3008 Oct, [facility] [place] [address] [place] [id number] [place] [address] 27596- 6321 Sep, Depression F32.9 [facility] [place] [address] [place] [id number] [place] [address] 55358- 9416 Sep, Recurrent major depressive disorder, in partial remission F33.41 and Generalized anxiety disorder F41.1 [facility] [place] [address] [place] [id number] [place] [address] 42118- 3178 Sep, Paroxysmal atrial fibrillation I48.0 and Anxiety F41.9 [facility] [place] [address] [place] [id number] [place] [address] 21057- 8939 Sep, [facility] [place] [address] [place] [id number] [place] [address] 57792- 4742 Sep, [facility] [place] [address] [place] [id number] [place] [address] 71283- 4137 Sep, Gastro-esophageal reflux disease without esophagitis K21.9 [facility] [place] [address] [place] [id number] [place] [address] 52480- 8446 Aug, [facility] [place] [address] [place] [id number] [place] [address] 41635- 9782 Aug, [facility] [place] [address] [place] [id number] [place] [address] 05754- 0073 Aug, Atrial fibrillation, unspecified type I48.91 [place] [address] [address]- 4131 11 Jul, 2016 Major depressive disorder, recurrent, in partial remission F33.41 and Generalized anxiety disorder F41.1 [place] [address] [address]- 6875 11 Jul, 2016 [place] [address] [place] [id number] [place] [address] 23945- 3855 30 Jun, 2016 [place] [address] [place] [id number] [place] [address] 32819- 6728 15 Jun, 2016 Bronchitis J40 and Memory loss R41.3 [place] [address] [place] [id number] [place] [address] 54899- 8285 14 Jun, 2016 Upper respiratory infection with cough and congestion J06.9 [place] [address] [place] [id number] [place] [address] 48756- 6249 Apr, [place] [address] [place] [id number] [place] [address] 86394- 9979 Apr, Major depressive disorder, recurrent, unspecified F33.9 ; Anxiety F41.9 and Psychophysiological insomnia F51.04 [place] [address] [address]- 2456 Mar, [place] [id number] [place] [address] 89741- 9530 Mar, [place] [address] [place] [id number] [place] [address] 23987- 4948 February, [place] [id number] [place] [address] 50097- 4394 Jan, Postural hypotension I95.1 [place] [id number] [place] [address] 11626- 0240 14 Jan, 2016 Recurrent major depressive disorder in remission F33.40 ; Generalized anxiety disorder F41.1 and Psychophysiological insomnia F51.04 [place] [address] [place] [address] [address]- 7939 14 Dec, 2015 Generalized anxiety disorder F41.1 [facility] [address] [place] [id number] [place] [address] 32274 -5528 11 Dec, 2015 Unspecified fall, initial encounter W19.XXXA [facility] [place] [address] [place] [id number] [place] [address] 46327- 2505 Nov, Depression F32.9 and Anxiety F41.9 [facility] [place] [address] [place] [id number] [place] [address] 68072- 0563 Oct, [place] [address] [place] [id number] [place] [address] 33489- 2613 Oct, [facility] [place] [address] [place] [id number] [place] [address] 75302- 0862 Oct, Chronic kidney disease, stage 3 (moderate) N18.3 [place] [address] [place] [id number] [place] [address] 53748- 2677 Oct, Head contusion S00.93XA ; Cervical strain S16.1XXA and Arthritis M19.90 [place] [address] [place] [id number] [place] [address] 08719- 9805 Oct, Chronic kidney disease 585.9 [place] [address] [place] [id number] [place] [address] 72734- 6545 Oct, Chronic kidney disease 585.9 [place] [address] [place] [id number] [place] [address] 56019- 4001 Oct, [place] [address] [place] [id number] [place] [address] 05464- 5994 Sep, [place] [address] [place] [id number] [place] [address] 93338- 8825 Aug, Chronic kidney disease N18.9 [facility] [place] [address] [place] [address] 43922- 2862 Aug, Chronic kidney disease (CKD) stage G1/A1, glomerular filtration rate (GFR) equal to or greater than 90 mL/min/1.73 square meter and albuminuria creatinine ratio less than 30 mg/g N18.1 and GERD (gastroesophageal reflux disease) K21.9 [facility] [place] [address] [place] [id number] [place] [address] 06498- 2774 Aug, [facility] [place] [address] [place] [id number] [place] [address] 44371- 6242 Jun, Generalized anxiety disorder 300.02 ; Major depression, recurrent 296.30 and Persistent 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 [facility] [place] [address] [place] [id number] [place] [address] 80212- 5098 Jun, [facility] [place] [address] [place] [id number] [place] [address] 02943- 8448 May, [facility] [place] [address] [place] [id number] [place] [address] 05870- 6158 May, Generalized anxiety disorder 300.02 and Depression, major, recurrent, in remission 296.35 [facility] [place] [address] [place] [id number] [place] [address] 62234- 8189 May, [facility] [place] [address] [place] [id number] [place] [address] 69355- 6190 May, [facility] [place] [address] [address]- 8445 May, [facility] [place] [address] [place] [id number] [place] [address] 95930- 0767 May, [facility] [place] [address] [place] [id number] [place] [address] 70684- 7491 May, Chronic kidney disease 585.9 [facility] [place] [address] [place] [id number] [place] [address] 20239- 0595 Apr, Chronic kidney disease 585.9 [facility] [place] [address] [place] [id number] [place] [address] 59860- 1455 Apr, [facility] [place] [address] [place] [address] [address]- 7546 Apr, Arthropathy 716.90 ; Hyperlipidemia 272.4 ; Hypothyroidism 244.9 and GERD (gastroesophageal reflux disease) 530.81 [facility] [place] [address] [place] [id number] [place] [address] 18936- 1416 07 Apr, 2015 Arthropathy 716.90 ; Hypothyroidism 244.9 ; Hyperlipidemia 272.4 and GERD (gastroesophageal reflux disease) 530.81 [facility] [place] [address] [place] [id number] [place] [address] 57827- 7380 17 Mar, 2015 [facility] [place] [address] [place] [id number] [place] [address] 54274- 9866 February, Depression, major, recurrent, in remission 296.35 and Generalized anxiety disorder 300.02 [facility] [place] [address] [place] [id number] [place] [address] 29640- 8546 February, [facility] [place] [address] [place] [id number] [place] [address] 72152- 7574 February, [facility] [place] [address] [place] [id number] [place] [address] 70019- 4446 Jan, [facility] [place] [address] [place] [id number] [place] [address] 90160- 6476 Jan, [facility] [place] [address] [address]- 7721 Oct, [facility] [place] [address] [place] [id number] [place] [address] 20448497- 3367 Oct, [facility] [place] [id number] [place] [address] 96488- 2344 Oct, [facility] [place] [address] [place] [id number] [place] [address] 794705- 4501 Oct, [facility] [place] [id number] [place] [address] 22160- 4286 Oct, [facility] [place] [address] [place] [id number] [place] [address] 67126- 7090 Oct, [facility] [place] [facility] [address] [id number] [place] [address]- 1782 Sep, [facility] [place] [facility] [address] [id number] [place] [address]- 7747 Sep, [facility] [place] [facility] [address] [id number] [place] [address]- 2052 Aug, [facility] [place] [facility] [address] [id number] [place] [address]- 1659 Aug, [facility] [place] [facility] [address] [id number] [place] [address]- 5080 Aug, [facility] [place] [facility] [address] [id number] [place] [address]- 6387 Aug, [facility] [place] [facility] [address] [id number] [place] [address]- 3372 Jul, [facility] [place] [facility] [address] [id number] [place] [address]- 7324 Jul, [facility] [place] [facility] [address] [id number] [place] [address]- 6976 Jul, [facility] [place] [facility] [address] [id number] [place] [address]- 1913 Jul, [facility] [place] [facility] [address] [id number] [address] 29 Jun, 2014 [facility] [place] [facility] [address] [id number] [place] [address] 22 Jun, 2014 [facility] [place] [facility] [address] [id number] [place] [address] 22 Jun, 2014 [facility] [place] [facility] [address] [id number] [place] [address] 10 Jun, 2014 [facility] [place] [facility] [address] [id number] [place] [address] 10 Jun, 2014 [facility] [place] [facility] [address] [id number] [place] [address] Jun, [facility] [place] [facility] [address] [id number] [place] [address] Jun, [facility] [place] [facility] [address] [id number] [place] [address] May, [facility] [place] [facility] [address] [id number] [place] [address] May, [facility] [place] [facility] [address] [id number] [place] [address] May, [facility] [place] [facility] [address] [id number] [place] [address] May, [facility] [place] [facility] [address] [id number] [place] [address] Apr, [facility] [place] [facility] [address] [id number] [place] [address] Apr, [facility] [place] [facility] [address] [id number] [place] [address] Apr, [facility] [place] [facility] [address] [id number] [place] [address] Apr, [facility] [place] [facility] [address] [id number] [place] [address] Apr, [facility] [place] [facility] [address] [id number] [place] [address] Apr, [facility] [place] [facility] [address] [id number] [place] [address] Apr, [facility] [place] [facility] [address] [id number] [place] [address] Apr, [facility] [place] [facility] [address] [id number] [place] [address] Mar, [facility] [place] [facility] [address] [id number] [place] [address] 1988 Mar, [facility] [place] [facility] [address] [id number] [place] [address] Mar, [facility] [place] [facility] [address] [id number] [place] [address] Mar, [facility] [place] [facility] [address] [id number] [place] [address] Mar, [facility] [place] [facility] [address] [id number] [place] [address] Mar, [facility] [place] [facility] [address] [id number] [place] [address] Mar, [facility] [place] [facility] [address] [id number] [place] [address] Mar, [facility] [place] [facility] [address] [id number] [place] [address] Dec, [facility] [place] [facility] [address] [id number] [place] [address] Dec, [facility] [facility] [address] [id number] [place] [address] Dec, [facility] [place] [facility] [address] [id number] [place] [address] Dec, [facility] [place] [facility] [address] [id number] [place] [address] Dec, [facility] [place] [facility] [address] [id number] [place] [address] Dec, [facility] [place] [facility] [address] [id number] [place] [address] Dec, [facility] [place] [facility] [address] [id number] [place] [address] Dec, [facility] [place] [facility] [address] [id number] [place] [address] Nov, [facility] [place] [facility] [address] [id number] [place] [address] Nov, 2013 [facility] [place] [facility] [address] [id number] [place] [address] Nov, 2013 [facility] [place] [facility] [address] [id number] [place] [address] Nov, 2013 [facility] [place] [facility] [address] [id number] [place] [address]- [address] Nov, 2013 [facility] [place] [facility] [address] [id number] [place] [address] Nov, [facility] [place] [facility] [address] [id number] [place] [address] Nov, [facility] [place] [facility] [address] [id number] [place] [address] Nov, [facility] [place] [facility] [address] [facility] [id number] [place] [address] Aug, [facility] [place] [facility] [address] [id number] [place] [address] Aug, [facility] [place] [facility] [address] [facility] [id number] [place] [address]- 48[address] Jul, [facility] [place] [facility] [address] [facility] [id number] [place] [address]- 1436 18 Jul, 2013 [facility] [place] [facility] [address] [id number] [place] [address]- [address] 02 Jul, 2013 [facility] [address] [id number] [place] [address]- 254 30 Jun, 2012 [facility] [address] [id number] [place] [address] 2544 30 Jun, 2013 [facility] [place] [address] [id number] [place] [address]- 254 24 Jun, 2013 [facility] [address] [id number] [place] [address] 2545 Jun, [facility] [address] [id number] [place] [address] 2401 Jun, [facility] [address] [id number] [place] [address] May, [facility] [address] [id number] [place] [address] 228[address] Apr, [facility] [address] [id number] [place] [address]- 8875 Apr, [facility] [address] [id number] [place] [address] Apr, [facility] [address] [id number] [place] [address] 9201 Mar, [facility] [address] [id number] [place] [address] Mar, [facility] [address] [id number] [place] [address] February, [facility] [address] [id number] [place] [address]37 February, [facility] [address] [id number] [place] [address] 4863 February, [facility] [address] [id number] [place] [address] February, [facility] [address] [id number] [place] [address] 39[address] Jan, [facility] [address] [id number] [place] [address] Jan, [facility] [address] [id number] [place] [address]238 Jan, [facility] [address] [id number] [place] [address] 240[address] Jan, [facility] [address] [id number] [place] [address]- [address]409 20 Dec, 2012 [facility] [address] [id number] [place] [address]- 1317 13 Dec, 2012 [facility] [address] [id number] [place] [address]- [address]156 Dec, [facility] [address] [id number] [place] [address]- 0626 22 Nov, 2012 [facility] [address] [id number] [place] [address]- 6031 15 Nov, 2012 [facility] [address] [id number] [place] [address]- 5621 Nov, [facility] [address] [id number] [place] [address]- 2416 Oct, [facility] [address] [id number] [place] [address]- 0111 Oct, [facility] [address] [id number] [place] [address] Sep, [facility] [address] [id number] [place] [address]- [address]16 Sep, [facility] [address] [facility] [id number] [place] [address]- 8931 Sep, [facility] [address] [id number] [place] [address]- 9682 Sep, [facility] [address] [id number] [place] [address]- 5740 Sep, [facility] [address] [id number] [place] [address] Aug, [facility] [address] [id number] [place] [address] Aug, [facility] [address] [facility] [id number] [place] [address] Aug, [facility] [address] [id number] [place] [address]- 3546 Aug, [facility] [address] [id number] [place] [address]- 8636 Aug, [facility] [address] [id number] [place] [address]- 2546 Aug, [facility] [address] [id number] [place] [address]- 5076 Jun, [facility] [address] [id number] [place] [address]- 8781 Jun, [facility] [address] [id number] [place] [address]- 5136 Jun, [facility] [address] [id number] [place] [address] May, [facility] [address] [id number] [place] [address]- 5564 May, [facility] [address] [id number] [place] [address]- 1618 May, [facility] [address] [id number] [place] [address]- 7876 May, [facility] [address] [id number] [place] [address]- 6094 Apr, [facility] [address] [id number] [place] [address]- 0953 Mar, [facility] [address] [id number] [place] [address]- 9043 Mar, [facility] [address] [id number] [place] [address]- 9656 Mar, [facility] [address] [id number] [place] [address]- 7546 February, [facility] [address] [id number] [place] [address]- 9514 February, [facility] [address] [id number] [place] [address]- 1014 February, [facility] [address] [id number] [place] [address]- 0976 February, [facility] [address] [id number] [place] [address]- 3606 Dec, [facility] [address] [id number] [place] [address]- 8806 Dec, [facility] [address] [id number] [place] [address]- 2176 Dec, [facility] [address] [id number] [place] [address]- 6776 Dec, [facility] [address] [id number] [place] [address]- 4676 Nov, [facility] [address] [id number] [place] [address]- 8593 Nov, [facility] [address] [id number] [place] [address]- 7866 Nov, [facility] [address] [id number] [place] [address]- 4406 Nov, [facility] [address] [id number] [place] [address] 2546 Nov, [facility] [address] [id number] [place] [address] 2546 Oct, [facility] [address] [id number] [place] [address]- 1476 Oct, [facility] [address] [id number] [place] [address]- 2726 Oct, [facility] [address] [id number] [place] [address]- 2546 Aug, [facility] [address] [id number] [place] [address]- 8895 Aug, [facility] [address] [id number] [place] [address]- 2577 Jul, [facility] [address] [id number] [place] [address]- 7676 Jul, [facility] [address] [id number] [place] [address]- 0034 Jul, [facility] [address] [id number] [place] [address]- 6882 Jul, [facility] [address] [id number] [place] [address]- 3151 Jul, [facility] [address] [id number] [place] [address]- 3655 Jul, [facility] [address] [id number] [place] [address]- 1026 Jul, [facility] [address] [id number] [place] [address]- 3737 Jul, [facility] [address] [id number] [place] [address]- 6005 May, [facility] [address] [id number] [place] [address]- 1561 February, [facility] [address] [id number] [place] [address]- 5757 Nov, [facility] [address] [id number] [place] [address]- 0460 Sep, [facility] [address] [id number] [place] [address]- 2340 Aug, [facility] [address] [id number] [place] [address]- 3396 Oct, [facility] [address] [id number] [place] [address]- 5256 Jul, [facility] [address] [facility] [id number] [address]- 2716 Jun, [facility] [address] [facility] [id number] [place] [address]- 25[address] Mar, [facility] [address] [facility] [id number] [place] [address]- 2546 Mar, [facility] [place] [address] [facility] [id number] [place] [address]- [address]166 Nov, IMMUNIZATIONS No Known Immunizations SOCIAL HISTORY [...]
[2019-01-24] MEDS ORDERED: LACTATED RINGERS 1,000 ML IV PRN (07:56)
--- OUTSIDE RECORDS SUMMARY | 2019-01-24 07:56 | XMS REPORT ---
Author Author FRANCESCO PHILLIPS [facility] Address [address] [place] [address] Care Team Providers Care Territory Account Executive Name Role Phone FRANCESCO PHILLIPS Unavailable PROBLEMS Type Condition ICD9-CM Code QCS69-MM Code Onset Dates Condition Status SNOMED Code Problem Chronic kidney disease (CKD) stage G1/A1, glomerular filtration rate ( GFR) equal to or greater than 90 mL/min/1.73 square meter and albuminuria creatinine ratio less than 30 mg/g N18.1 Active 115619575 Problem Depression F32.9 Active 94524939 Problem Arthritis M19.90 Active 9569901 Problem MDD (major depressive disorder), recurrent, in partial remission F33.41 Active 98267160 Problem Generalized anxiety disorder F41.1 Active 44046352 Problem Atrial fibrillation, unspecified type I48.91 Active 19014054 Problem Anxiety F41.9 Active 27410859 Problem Gastro-esophageal reflux disease without esophagitis K21.9 Active 686354509 Problem Paroxysmal atrial fibrillation I48.0 Active [id number] ALLERGIES No Information ENCOUNTERS Encounter Location Date Diagnosis [place] [address], [place] [address] Jan, [facility] [id number] [place] [address] 60336- 5460 Dec, Arthritis M19.90 [facility] [id number] [place] [address] 61194- 4174 Dec, [place] [id number] [place] [address] 12266- 1474 Nov, Arthritis M19.90 ; Chronic kidney disease (CKD) stage G1/A1 , glomerular filtration rate (GFR) equal to or greater than 90 mL/min/1.73 square meter and albuminuria creatinine ratio less than 30 mg/g N18.1 and Anxiety F41.9 [facility] [id number] [place] [address] 38847- 8801 Nov, [facility] [id number] [place] [address] 51008- 3636 Nov, [facility] [id number] [place] [address] 43558- 5716 Nov, [facility] [id number] [place] [address] 52747- 6819 Nov, [facility] [id number] [place] [address] 43261- 0022 Nov, [facility] [id number] [place] [address] 45867- 1881 Oct, Generalized anxiety disorder F41.1 [facility] [id number] [place] [address] 71577- 7185 Sep, Atrial fibrillation, unspecified type I48.91 [facility] [id number] [place] [address] 57337- 2216 Sep, Generalized anxiety disorder F41.1 and MDD (major depressive disorder), recurrent, in partial remission F33.41 [place] [id number] [place] [address] 56431- 8779 Sep, [facility] [id number] [place] [address] 93526- 3880 Aug, Generalized anxiety disorder F41.1 [facility] [id number] [place] [address] 42900- 1366 Aug, [facility] [id number] [place] [address] 42451- 1597 Aug, Paroxysmal atrial fibrillation I48.0 and Gastro-esophageal reflux disease without esophagitis K21.9 [facility] [id number] [place] [address] 37855- 1111 Jul, [facility] [address], [place] [address] 1300 Jul, Generalized anxiety disorder F41.1 [facility] [id number] [place] [address] 21769- 8316 Jun, Generalized anxiety disorder F41.1 and MDD (major depressive disorder), recurrent, in partial remission F33.41 [facility] [id number] [place] [address] 61800- 8036 May, Recurrent major depressive disorder, in partial remission F33.41 [facility] [id number] [place] [address] 30106- 9425 May, Anxiety F41.9 and Paroxysmal atrial fibrillation I48.0 [facility] [id number] [place] [address], [place] [address]- 5353 Apr, Generalized anxiety disorder F41.1 [facility] [id number] [place] [address] 91931- 6117 Mar, [facility] [id number] [place] [address] 06981- 3229 Mar, Generalized anxiety disorder F41.1 and MDD (major depressive disorder), recurrent, in partial remission F33.41 [facility] [address], [place] [address] 8255 February, Paroxysmal atrial fibrillation I48.0 and Anxiety F41.9 [facility] [id number] [place] [address] 48372- 1898 February, MDD (major depressive disorder), recurrent, in partial remission F33.41 [facility] [id number] [place] [address] 60089- 2446 Jan, [facility] [id number] [address] Jan, [facility] [id number] [place] [address] 64222- 2615 Jan, [place] [address], [place] [address]- 1308 05 Jan, 2017 [facility] [id number] [place] [address] 70363- 8995 Dec, [facility] [address], [place] [address]- 3564 Dec, Generalized anxiety disorder F41.1 [facility] [id number] [place] [address] 67308- 8520 Dec, Generalized anxiety disorder F41.1 and MDD (major depressive disorder), recurrent, in partial remission F33.41 [facility] [id number] [place] [address] 34733- 3520 15 Dec, 2016 [facility] [id number] [place] [address] 69595- 7782 14 Dec, 2016 [facility] [id number] [place] [address] 12305- 7687 07 Dec, 2016 [facility] [id number] [place] [address] 43816- 1879 Nov, [facility] [id number] [place] [address] 51823- 5987 Nov, Gastro-esophageal reflux disease without esophagitis K21.9 [facility] [address], [place] [address]- 1550 10 Nov, 2016 Atrial fibrillation, unspecified type I48.91 and Anxiety F41.9 [facility] [address], [place] [address]- 0129 Oct, [facility] [id number] [place] [address] 05838- 0330 Oct, [facility] [address], [place] [address]- 5586 Oct, Depression F32.9 and Atrial fibrillation, unspecified type I48.91 [facility] [id number] [place] [address] 67611- 0287 Oct, [facility] [id number] [place] [address] 66038- 5142 Sep, Depression F32.9 [facility] [id number] [place] [address] 88307- 7856 Sep, Recurrent major depressive disorder, in partial remission F33.41 and Generalized anxiety disorder F41.1 [facility] [id number] [place] [address] 70257- 4215 Sep, Paroxysmal atrial fibrillation I48.0 and Anxiety F41.9 [facility] [id number] [place] [address] 30361- 9120 Sep, [facility] [id number] [place] [address] 99523- 2000 Sep, [facility] [id number] [place] [address] 80636- 1287 Sep, Gastro-esophageal reflux disease without esophagitis K21.9 [facility] [id number] [place] [address] 53427- 6072 Aug, [facility] [id number] [place] [address] 72230- 8382 Aug, [facility] [id number] [place] [address] 53121- 9719 Aug, Atrial fibrillation, unspecified type I48.91 [facility] [id number] [place] [address] 38648- 0405 Jul, Major depressive disorder, recurrent, in partial remission F33.41 and Generalized anxiety disorder F41.1 [facility] [id number] [place] [address] 92833- 8770 Jul, [facility] [id number] [place] [address] 27080- 3839 Jun, [facility] [id number] [place] [address] 66787- 4606 15 Jun, 2016 Bronchitis J40 and Memory loss R41.3 [place] [address] 78193- 1192 14 Jun, 2016 Upper respiratory infection with cough and congestion J06.9 [place] [id number] [place] [address] 31043- 9189 Apr, [place] [address] 24977- 8579 Apr, Major depressive disorder, recurrent, unspecified F33.9 ; Anxiety F41.9 and Psychophysiological insomnia F51.04 [place] [address] 40992- 5930 Mar, [place] [address] 92583- 2025 Mar, [place] [address] 54563- 4515 February, [place] [id number] [place] [address] 41693- 1263 Jan, Postural hypotension I95.1 [place] [id number] [place] [address] 66420- 7496 Jan, Recurrent major depressive disorder in remission F33.40 ; Generalized anxiety disorder F41.1 and Psychophysiological insomnia F51.04 [place] [id number] [place] [address] 74572- 7513 Dec, Generalized anxiety disorder F41.1 [facility] [id number] [place] [address] 97361 -3865 Dec, Unspecified fall, initial encounter W19.XXXA [place] [id number] [place] [address] 66539- 4097 05 Nov, 2015 Depression F32.9 and Anxiety F41.9 [place] [address] 84829- 7506 Oct, [place] [id number] [place] [address] 00156- 3313 Oct, [place] [address] 99639- 4557 Oct, Chronic kidney disease, stage 3 (moderate) N18.3 [place] [address] 87941- 2473 Oct, Head contusion S00.93XA ; Cervical strain S16.1XXA and Arthritis M19.[address] 69717- 3772 Oct, Chronic kidney disease 585.9 [place] [address] 07170- 8799 Oct, Chronic kidney disease 585.9 [place] [address] 48049- 3149 Oct, [place] [address] 21598- 0928 Sep, [place] [address] 30420- 5225 Aug, Chronic kidney disease N18.9 [place] [id number] [place] [address] 55964- 8915 Aug, Chronic kidney disease (CKD) stage G1/A1, glomerular filtration rate (GFR) equal to or greater than 90 mL/min/1.73 square meter and albuminuria creatinine ratio less than 30 mg/g N18.1 and GERD (gastroesophageal reflux disease) K21.9 [place] [address] 77425- 8676 Aug, [place] [id number] [place] [address] 63761- 0173 Jun, Generalized anxiety disorder 300.02 ; Major depression, recurrent 296.30 and Persistent 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 [facility] [address], [place] [address]- 9911 Jun, [facility] [id number] [place] [address] 53679- 3394 May, [facility] [id number] [place] [address] 83675- 7290 May, Generalized anxiety disorder 300.02 and Depression, major, recurrent, in remission 296.35 [facility] [id number] [place] [address] 54423- 3035 May, [facility] [id number] [place] [address] 34257- 5976 May, [facility] [id number] [place] [address] 02861- 8178 May, [facility] [id number] [place] [address] 44692- 6657 May, [facility] [id number] [place] [address] 09814- 7448 May, Chronic kidney disease 585.9 [facility] [id number] [place] [address] 15778- 8282 Apr, Chronic kidney disease 585.9 [facility] [address] [address]- 1161 Apr, [facility] [id number] [place] [address] 00257- 8213 Apr, Arthropathy 716.90 ; Hyperlipidemia 272.4 ; Hypothyroidism 244.9 and GERD (gastroesophageal reflux disease) 530.81 [facility] [id number] [place] [address] 29906038- 5925 Apr, Arthropathy 716.90 ; Hypothyroidism 244.9 ; Hyperlipidemia 272.4 and GERD (gastroesophageal reflux disease) 530.81 [facility] [address] [address]- 8186 Mar, [facility] [address] [facility] [id number] 2076 February, Depression, major, recurrent, in remission 296.35 and Generalized anxiety disorder 300.02 [facility] [address] [id number] [place] [address] February, [facility] [address] [facility] [id number] [place] [address]- 7441 February, [facility] [address] [facility] [id number] [place] [address]- 6559 Jan, [facility] [address] [facility] [id number] [place] [address], [place] [address]- 1307 Jan, [facility] [address] [facility] [id number] [place] [address]- 3033 Oct, [facility] [id number] [place] [address]- 4811 Oct, [facility] [id number] [address]- 1505 Oct, [facility] [id number] [place] [address]- 1893 Oct, [facility] [id number] [address]- 3672 Oct, [facility] [address], [place] [address]- 0347 Oct, [facility] [id number], [place] [address]- 1409 Sep, [facility] [id number] [place] [address]- 6065 Sep, [facility] [address] [facility] [id number]- 5282 Aug, [facility] [id number] [address]- 7139 Aug, [facility] [place] [facility] [address] [id number] [place] [address]- 5297 Aug, [facility] [place] [facility] [address] [id number] [place] [address]- 3955 Aug, [facility] [place] [facility] [address] [id number] [place] [address]- 6060 Jul, [facility] [place] [facility] [address] [id number] [place] [address]- 1877 Jul, [facility] [place] [facility] [address] [id number] [place] [address]- 1008 Jul, [facility] [place] [facility] [address] [id number] [place] [address]- 3618 Jul, [facility] [place] [facility] [address] [id number] [place] [address]- 7172 29 Jun, 2014 [facility] [place] [facility] [address] [id number] [place] [address]- 0910 Jun, [facility] [place] [facility] [address] [id number] [place] [address]- 5675 Jun, [facility] [place] [facility] [address] [id number] [place] [address]- 2759 Jun, [facility] [place] [facility] [address] [id number] [place] [address]- 2750 Jun, [facility] [place] [facility] [address] [id number], [place] [address]- 3579 Jun, [facility] [place] [facility] [address] [id number] [place] [address]- 7733 Jun, [facility] [place] [facility] [address] [id number] [place] [address]- 1893 May, [facility] [place] [facility] [address] [id number] [place] [address]- 1154 May, [facility] [place] [facility] [address] [id number], [place] [address]- 3120 May, [facility] [place] [facility] [address] [id number] [place] [address]- 0529 May, [facility] [place] [facility] [address] [id number] [place] [address]- 8619 Apr, [facility] [place] [facility] [address] [id number] [place] [address]- 7846 Apr, [facility] [place] [facility] [address] [id number] [place] [address]- 9946 Apr, [facility] [place] [facility] [address] [id number] [place] [address]- 0310 Apr, [facility] [place] [facility] [address] [id number] [place] [address]- 2894 Apr, [facility] [place] [facility] [address] [id number] [place] [address]- 5984 Apr, [facility] [place] [facility] [address] [id number] [place] [address]- 8581 Apr, [facility] [place] [facility] [address] [id number] [place] [address]- 1818 Apr, [facility] [place] [facility] [address] [id number] [place] [address]- 4990 Mar, [facility] [place] [facility] [address] [id number] [place] [address]- 2781 Mar, [facility] [place] [facility] [address] [id number] [place] [address]- 3193 Mar, [facility] [place] [facility] [address] [id number] [place] [address]- 6905 Mar, [facility] [place] [facility] [address] [id number] [place] [address]- 9040 Mar, [facility] [place] [facility] [address] [id number] [place] [address]- 3557 Mar, [facility] [place] [facility] [address] [id number] [place] [address]- 1802 Mar, [facility] [place] [facility] [address] [id number] [place] [address]- 6715 Mar, [facility] [place] [facility] [address] [id number] [place] [address]- 1565 Dec, [facility] [place] [facility] [address] [id number] [place] [address]- 7291 Dec, [facility] [place] [facility] [address] [id number] [place] [address]- 6256 Dec, [facility] [place] [facility] [address] [id number] [place] [address]- 6554 Dec, [facility] [place] [facility] [address] [id number] [place] [address]- 4489 Dec, [facility] [place] [facility] [address] [id number] [place] [address]- 8312 Dec, [facility] [place] [facility] [address] [id number] [place] [address]- 2590 Dec, [facility] [place] [facility] [address] [id number] [place] [address]- 7110 Dec, [facility] [place] [facility] [address] [id number] [place] [address]- 1457 Nov, [facility] [place] [facility] [address] [id number] [place] [address]- 8105 Nov, [facility] [place] [facility] [address] [id number] [place] [address]- 1056 Nov, [facility] [place] [facility] [address] [id number] [place] [address]- 4514 Nov, [facility] [place] [facility] [address] [id number] [place] [address]- 5157 14 Nov, 2013 [facility] [place] [facility] [address] [id number] [place] [address]- 6544 Nov, [facility] [place] [facility] [address] [id number] [place] [address]- 5672 Nov, [facility] [place] [facility] [address] [id number] [place] 4637 Nov, [facility] [place] [facility] [address] [id number] [place] [address]- 4187 Aug, [facility] [place] [facility] [address] [id number] [place] [address]- 7400 Aug, [facility] [place] [facility] [address] [id number] [place] [address]- 3367 Jul, [facility] [place] [facility] [address] [id number] [place] [address]- 2235 Jul, [facility] [place] [facility] [address] [id number] [place] [address]- 0558 Jul, [facility] [place] [facility] [address] [id number] [place] [address]- 7249 Jun, [facility] [place] [facility] [address] [id number] [place] [address]- 0532 Jun, [facility] [place] [facility] [address] [id number] [place] [address]- 4064 Jun, [facility] [place] [facility] [address] [id number] [place] [address] Jun, [facility] [place] [facility] [address] [id number] [place] [address] Jun, [facility] [place] [facility] [address] [id number] [place] [address] May, [facility] [place] [facility] [address] [id number] [id number] [address] Apr, [facility] [place] [facility] [address] [id number] [place] [address] Apr, [facility] [place] [facility] [address] [id number] [place] [address] Apr, [facility] [address] [id number] [place] [address] Mar, [facility] [address] [id number] [place] [address] Mar, [facility] [address] [id number] [place] [address] February, [facility] [address] [id number] [place] [address] February, [facility] [address] [id number] [place] [address] February, [facility] [address] [id number] [place] [address] February, [facility] [address] [id number] [place] [address] Jan, [facility] [address] [id number] [place] [address] Jan, [facility] [address] [id number] [place] [address] Jan, [facility] [address] [id number] [place] [address] 04 Jan, 2013 [facility] [address] [id number] [place] [address] 20 Dec, 2012 [facility] [address] [id number] [place] [address] 13 Dec, 2012 [facility] [place] [facility] [address] [id number] [place] [address] Dec, [facility] [place] [facility] [address] [id number] [place] [address] 22 Nov, 2012 [facility] [place] [facility] [address] [id number] [place] [address] 15 Nov, 2012 [facility] [place] [facility] [address] [id number] [place] [address] Nov, [facility] [place] [facility] [address] [id number] [place] [address] Oct, [facility] [place] [facility] [address] [id number] [place] [address] Oct, [facility] [place] [facility] [address] [id number] [place] [address] Sep, [facility] [place] [facility] [address] [id number] [place] [address] 2004 Sep, [facility] [place] [facility] [address] [id number] [place] [address] Sep, [facility] [place] [facility] [address] [id number] [place] [address] Sep, [facility] [place] [facility] [address] [id number] [place] [address] Sep, [facility] [place] [facility] [address] [id number] [place] [address] Aug, [facility] [place] [facility] [address] [id number] [place] [address] Aug, [facility] [place] [facility] [address] [id number], [place] [address] Aug, [facility] [place] [facility] [address] [id number], [place] [address] Aug, [facility] [place] [facility] [address] [id number] [place] [address] Aug, [facility] [place] [facility] [address] [id number], [place] [address] Aug, [facility] [place] [facility] [address] [id number] [place] [address] Jun, [facility] [place] [facility] [address] [id number] [place] [address] Jun, [facility] [place] [facility] [address] [id number] [place] [address] Jun, [facility] [place] [facility] [address] [id number] [place] [address] May, [facility] [place] [facility] [address] [id number] [place] [address] May, [facility] [place] [facility] [address] [id number] [place] [address] May, [facility] [place] [facility] [address] [id number] [place] [address] May, [facility] [place] [facility] [address] [id number] [place] [address] Apr, [facility] [address] [id number] [place] [address] Mar, [facility] [address] [id number] [place] [address] Mar, [facility] [place] [facility] [address] [id number] [place] [address] Mar, [facility] [address] [id number] [place] [address] February, [facility] [place] [facility] [address] [id number] [place] [address] February, [facility] [place] [facility] [address] [id number] [place] [address] February, [facility] [place] [facility] [address] [id number] [place] [address] February, [facility] [place] [facility] [address] [id number] [place] [address] Dec, [facility] [place] [facility] [address] [id number] [place] [address] Dec, [facility] [place] [facility] [address] [id number] [place] [address] Dec, [facility] [place] [facility] [address] [id number] [place] [address] Dec, [facility] [place] [facility] [address] [id number] [place] [address] Nov, [facility] [place] [facility] [address] [id number] [place] [address] Nov, [facility] [place] [facility] [address] [id number] [place] [address] Nov, [facility] [place] [facility] [address] [id number] [place] [address] Nov, [facility] [place] [facility] [address] [id number] [place] [address] Nov, [facility] [place] [facility] [address] [id number] [place] [address] Oct, [facility] [place] [facility] [address] [id number] [place] [address] Oct, [facility] [place] [facility] [address] [id number] [place] [address] Oct, [facility] [place] [facility] [address] [id number] [place] [address] Aug, [facility] [place] [facility] [address] [id number], [place] [address] Aug, [facility] [place] [facility] [address] [id number] [place] [address] Jul, [facility] [place] [facility] [address] [id number] [place] [address] Jul, [facility] [place] [facility] [address] [id number] [place] [address] Jul, [facility] [place] [facility] [address] [facility] [id number] [place] [address] 18 Jul, 2011 [facility] [address] [id number] [place] [address] 18 Jul, 2011 [facility] [address] [facility] [id number] [place] [address] 17 Jul, 2011 [facility] [address] [facility] [id number] [place] [address] 12 Jul, 2011 [facility] [place] [facility] [address] [facility] [id number] [place] [address] 12 Jul, 2011 [facility] [address] [facility] [id number] [place] [address] May, [facility] [place] [facility] [address] [facility] [id number] [place] [address] February, [facility] [address] [facility] [id number] [place] [address] Nov, [facility] [address] [facility] [id number] [place] [address] Sep, [facility] [address] [id number] [place] [address] Aug, [facility] [address] [facility] [id number] [place] [address] Oct, [facility] [address] [id number] [place] [address] Jul, [facility] [address] [facility] [id number], [place] [address] Jun, [facility] [address] [facility] [id number] [place] [address] 16 Mar, 2009 [facility] [place] [facility] [address] [facility] [id number], [place] [address] Mar, [facility] [address] [facility] [id number], [place] [address] Nov, IMMUNIZATIONS No Known Immunizations SOCIAL HISTORY Never Assessed REASON FOR VISIT medication PLAN OF CARE VITAL SIGNS MEDICATIONS Unknown [...]
--- OUTSIDE RECORDS SUMMARY | 2019-01-24 07:57 | XMS REPORT ---
Author Author HANDY ARI [facility] Address [address] [place] [address] Care Team Providers Care Manager Utilities Name Role Phone ARI MURRELL Unavailable PROBLEMS Type Condition ICD9-CM Code LCC11-ZF Code Onset Dates Condition Status SNOMED Code Problem Paroxysmal atrial fibrillation I48.0 Active 793611651 Problem Generalized anxiety disorder F41.1 Active 98328609 Problem Gastro-esophageal reflux disease without esophagitis K21.9 Active 035337714 Problem Chronic kidney disease, stage 1 N18.1 Active 811901386 Problem Secondary hyperparathyroidism of renal origin N25.81 Active 15333593 Problem 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 Active 989674842 Problem MDD (major depressive disorder), recurrent, in partial remission F33.41 Active 92080056 Problem Acquired hypothyroidism E03.9 Active 198402911 Problem Chronic diastolic heart failure I50.32 Active 044467293 Problem Arthritis M19.90 Active 8329206 Problem Depression F32.9 Active 67883287 Problem Anxiety F41.9 Active 48840755 Problem Chronic kidney disease (CKD) stage G1/A1, glomerular filtration rate ( GFR) equal to or greater than 90 mL/min/1.73 square meter and albuminuria creatinine ratio less than 30 mg/g N18.1 Active 733378524 Problem Atrial fibrillation, unspecified type I48.91 Active 87267167 ALLERGIES No Information ENCOUNTERS Encounter Location Date Diagnosis [facility] [address] [facility] [id number] [address] Apr, [facility] [address] [address] February, Medicare annual wellness visit, initial Z00.00 [facility] [id number], [place] [address] Jan, Acquired hypothyroidism E03.9 ; 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 ; Chronic kidney disease (CKD) stage G1/A1, glomerular filtration rate (GFR) equal to or greater than 90 mL/min/1.73 square meter and albuminuria creatinine ratio less than 30 mg/g N18.1 ; Paroxysmal atrial fibrillation I48.0 ; Chronic diastolic heart failure I50.32 and Secondary hyperparathyroidism of renal origin N25.81 [place] [address] [address]- [address] Jan, Arthritis M19.90 [place] [address] [address]84- 5282 Jan, Paroxysmal atrial fibrillation I48.0 [place] [address] 10896- 6147 Jan, Paroxysmal atrial fibrillation I48.0 [place] [address] [address]- 1941 Jan, [place] [address] [address]776- 4378 Jan, Generalized anxiety disorder F41.[address] [address]- [address] Jan, Generalized anxiety disorder F41.1 and MDD (major depressive disorder), recurrent, in partial remission F33.[address] [address]- 9580 Dec, Arthritis M19.90 [place] [address] [address]- 16[address] Dec, [place] [address] 79486- 6356 Nov, Arthritis M19.90 ; Chronic kidney disease (CKD) stage G1/A1 , glomerular filtration rate (GFR) equal to or greater than 90 mL/min/1.73 square meter and albuminuria creatinine ratio less than 30 mg/g N18.1 and Anxiety F41.9 [place] [address] [place] [address] 235[address] Nov, [facility] [id number] [place] [address] 62224- 4476 Nov, [facility] [id number] [place] [address] 66100- 3477 Nov, [facility] [id number] [place] [address] 10020- 2904 Nov, [facility] [id number] [place] [address] 60664- 3636 Nov, [facility] [id number] [place] [address] 74377- 2766 Oct, Generalized anxiety disorder F41.1 [facility] [id number] [place] [address] 65570- 9213 Sep, Atrial fibrillation, unspecified type I48.91 [facility] [id number] [place] [address] 12927- 9008 Sep, Generalized anxiety disorder F41.1 and MDD (major depressive disorder), recurrent, in partial remission F33.41 [facility] [id number] [place] [address] 83776- 3079 Sep, [facility] [id number] [place] [address] 95829- 5977 Aug, Generalized anxiety disorder F41.1 [facility] [id number] [place] [address] 04861- 2576 Aug, [facility] [id number] [place] [address] 13217- 2664 Aug, Paroxysmal atrial fibrillation I48.0 and Gastro-esophageal reflux disease without esophagitis K21.9 [facility] [address] [place] [address] 02839- 5375 Jul, [facility] [id number] [place] [address] 81032- 3670 Jul, Generalized anxiety disorder F41.1 [facility] [id number] [place] [address] 22136- 2515 Jun, Generalized anxiety disorder F41.1 and MDD (major depressive disorder), recurrent, in partial remission F33.41 [facility] [id number] [place] [address] 53226- 7297 May, Recurrent major depressive disorder, in partial remission F33.41 [facility] [id number] [place] [address] 14160- 4301 May, Anxiety F41.9 and Paroxysmal atrial fibrillation I48.0 [facility] [id number] [place] [address] 46095- 7783 Apr, Generalized anxiety disorder F41.1 [facility] [id number] [place] [address] 55933- 4198 Mar, [facility] [id number] [place] [address] 81398- 7951 Mar, Generalized anxiety disorder F41.1 and MDD (major depressive disorder), recurrent, in partial remission F33.41 [facility] [id number] [place] [address] 07883- 1736 February, Paroxysmal atrial fibrillation I48.0 and Anxiety F41.9 [facility] [address] [place] [address] 23808- 2799 February, MDD (major depressive disorder), recurrent, in partial remission F33.41 [facility] [id number] [place] [address] 23722- 2943 Jan, [facility] [id number] [place] [address] 40542 -6915 Jan, [facility] [id number] [place] [address] 87881- 9745 Jan, [facility] [id number] [place] [address] 50682- 5892 Jan, [facility] [address] [address] 0[address] Dec, [facility] [id number] [place] [address] 84122- 1713 Dec, Generalized anxiety disorder F41.1 [facility] [id number] [place] [address] 01461- 3897 Dec, Generalized anxiety disorder F41.1 and MDD (major depressive disorder), recurrent, in partial remission F33.41 [facility] [id number] [place] [address] 85326- 7621 15 Dec, 2016 [facility] [id number] [place] [address] 09742- 6669 14 Dec, 2016 [facility] [id number] [place] [address] 66743- 9027 Dec, [facility] [id number] [place] [address] 14420- 2424 Nov, [facility] [id number] [place] [address] 56941- 1991 Nov, Gastro-esophageal reflux disease without esophagitis K21.9 [facility] [id number] [place] [address] 52543- 3392 10 Nov, 2016 Atrial fibrillation, unspecified type I48.91 and Anxiety F41.9 [facility] [address] [place] [address] 62054- 1049 Oct, [facility] [id number] [place] [address] 25246- 0834 Oct, [facility] [id number] [place] [address] 19263- 6690 Oct, Depression F32.9 and Atrial fibrillation, unspecified type I48.91 [facility] [id number] [place] [address] 09345- 1753 Oct, [facility] [id number] [place] [address] 94581- 4534 Sep, Depression F32.9 [facility] [id number] [place] [address] 56312- 7090 Sep, Recurrent major depressive disorder, in partial remission F33.41 and Generalized anxiety disorder F41.1 [facility] [address] 73833- 6671 Sep, Paroxysmal atrial fibrillation I48.0 and Anxiety F41.9 [facility] [id number] [place] [address] 03342- 3956 Sep, [facility] [id number] [place] [address] 82538- 1186 Sep, [facility] [id number] [place] [address] 08077- 7534 Sep, Gastro-esophageal reflux disease without esophagitis K21.9 [facility] [id number] [place] [address] 98618- 3905 Aug, [facility] [id number] [place] [address] 24424- 2774 Aug, [facility] [id number] [place] [address] 13578- 1633 Aug, Atrial fibrillation, unspecified type I48.91 [facility] [id number] [place] [address] 32897- 9947 Jul, Major depressive disorder, recurrent, in partial remission F33.41 and Generalized anxiety disorder F41.1 [facility] [id number] [place] [address] 36871- 9753 Jul, [facility] [id number] [place] [address] 73012- 0225 Jun, [facility] [id number] [place] [address] 14537- 8483 Jun, Bronchitis J40 and Memory loss R41.3 [facility] [id number] [place] [address] 15762- 9463 14 Jun, 2016 Upper respiratory infection with cough and congestion J06.9 [facility] [id number] [place] [address] 98588- 3411 Apr, [place] [address] 08567- 6610 Apr, Major depressive disorder, recurrent, unspecified F33.9 ; Anxiety F41.9 and Psychophysiological insomnia F51.04 [place] [id number] [place] [address] 90914- 6499 Mar, [place] [address] 48045- 2189 Mar, [place] [address] 20376- 7286 February, [facility] [id number] [place] [address] 02512- 2761 Jan, Postural hypotension I95.1 [place] [address] 15462- 2390 Jan, Recurrent major depressive disorder in remission F33.40 ; Generalized anxiety disorder F41.1 and Psychophysiological insomnia F51.04 [place] [id number] [place] [address] 46217- 3949 Dec, Generalized anxiety disorder F41.1 [facility] [address] [place] [address] 62632 -9021 Dec, Unspecified fall, initial encounter W19.XXXA [facility] [id number] [place] [address] 69113- 3704 05 Nov, 2015 Depression F32.9 and Anxiety F41.9 [facility] [id number] [place] [address] 65201- 3546 Oct, [place] [id number] [place] [address] 24827- 7344 Oct, [place] [address] 32579- 7366 Oct, Chronic kidney disease, stage 3 (moderate) N18.3 [place] [address] 74404- 1855 Oct, Head contusion S00.93XA ; Cervical strain S16.1XXA and Arthritis M19.90 [place] [address] 16206- 9624 Oct, Chronic kidney disease 585.9 [place] [address] 13276- 7357 Oct, Chronic kidney disease 585.9 [place] [address] 31254- 8228 Oct, [place] [address] 70885- 0047 Sep, [place] [address] 66147- 8101 Aug, Chronic kidney disease N18.9 [place] [id number] [place] [address] 42894- 3943 Aug, Chronic kidney disease (CKD) stage G1/A1, glomerular filtration rate (GFR) equal to or greater than 90 mL/min/1.73 square meter and albuminuria creatinine ratio less than 30 mg/g N18.1 and GERD (gastroesophageal reflux disease) K21.9 [place] [id number] [place] [address] 39745- 4623 Aug, [place] [address] 38328- 8634 Jun, Generalized anxiety disorder 300.02 ; Major depression, recurrent 296.30 and Persistent 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 [place] [address] [place] [address]- 2428 Jun, [facility] [address], [place] [address]- 9083 May, [facility] [id number] [place] [address] 40546- 8160 May, Generalized anxiety disorder 300.02 and Depression, major, recurrent, in remission 296.35 [facility] [id number] [place] [address] 96166- 8842 May, [facility] [id number] [place] [address] 74112- 0718 May, [facility] [id number] [place] [address] 90497- 1273 May, [facility] [id number] [place] [address] 64387- 6815 May, [facility] [id number] [place] [address] 49001- 2118 May, Chronic kidney disease 585.9 [facility] [address] [place] [address] 92872- 0777 Apr, Chronic kidney disease 585.9 [facility] [address] [place] [address] 97360- 5963 Apr, [facility] [address] [place] [address] 77571- 4288 Apr, Arthropathy 716.90 ; Hyperlipidemia 272.4 ; Hypothyroidism 244.9 and GERD (gastroesophageal reflux disease) 530.81 [facility] [address], [place] [address]- 0008 Apr, Arthropathy 716.90 ; Hypothyroidism 244.9 ; Hyperlipidemia 272.4 and GERD (gastroesophageal reflux disease) 530.81 [facility] [address] 1693 Mar, [facility] [id number] [place] [address] [place] [address]- 3900 February, Depression, major, recurrent, in remission 296.35 and Generalized anxiety disorder 300.02 [facility] [address], [place] [address]- 5580 February, [facility] [id number], [place] [address]- 1075 February, [facility] [address], [place] [address]- 3366 Jan, [facility] [id number] 8175 Jan, [facility] [address], [place] [address]- 7254 Oct, [facility] [address], [place] [address]- 9996 Oct, [facility] [address], [place] [address]- 9104 Oct, [facility] [address], [place] [address]- 9755 Oct, [facility] [address], [place] [address]- 8319 Oct, [facility] [address], [place] [address]- 5578 Oct, [facility] [id number], [place] [address]- 5033 Sep, [facility] [id number], [place] [address]- 6984 Sep, [facility] [address] 8105 Aug, [facility] [id number], [place] [address]- 7399 Aug, [facility] [address], [place] [address]- 3262 Aug, [facility] [place] [facility] [address] [id number] [place] [address]- 5090 Aug, [facility] [place] [facility] [address] [id number] [place] [address]- 1240 Jul, [facility] [place] [facility] [address] [id number] [place] [address]- 7936 Jul, [facility] [place] [facility] [address] [id number] [place] [address]- 1333 Jul, [facility] [place] [facility] [address] [id number] [place] [address]- 4988 Jul, [facility] [place] [facility] [address] [id number] [place] [address]- 9244 Jun, [facility] [place] [facility] [address] [id number] [place] [address]- 3677 Jun, [facility] [place] [facility] [address] [id number] [place] [address]- 1791 Jun, [facility] [place] [facility] [address] [id number] [place] [address]- 9076 Jun, [facility] [place] [facility] [address] [id number] [place] [address]- 3202 Jun, [facility] [place] [facility] [address] [id number] [place] [address]- 0490 Jun, [facility] [place] [facility] [address] [id number] [place] [address]- 0535 Jun, [facility] [place] [facility] [address] [id number] [place] [address]- 9388 May, [facility] [place] [facility] [address] [id number] [place] [address]- 0654 May, [facility] [place] [facility] [address] [facility] [id number] [place] [address]- 8851 May, [facility] [place] [facility] [address] [id number] [place] [address]- 2625 May, [facility] [place] [facility] [address] [id number] [place] [address]- 3973 Apr, [facility] [place] [facility] [address] [id number] [place] [address]- 1866 Apr, [facility] [place] [facility] [address] [id number] [place] [address]- 4240 Apr, [facility] [place] [facility] [address] [id number] [place] [address]- 6248 Apr, [facility] [place] [facility] [address] [id number] [place] [address]- 3362 Apr, [facility] [place] [facility] [address] [id number] [place] [address]- 8389 Apr, [facility] [place] [facility] [address] [id number] [place] [address]- 1505 Apr, [facility] [place] [facility] [address] [id number] [place] [address]- 5841 Apr, [facility] [place] [facility] [address] [id number] [place] [address]- 5769 Mar, [facility] [place] [facility] [address] [id number] [place] [address]- 4892 Mar, [facility] [place] [facility] [address] [id number] [place] [address]- 6748 Mar, [facility] [place] [facility] [address] [id number] [place] [address]- 7942 Mar, [facility] [place] [facility] [address] [id number] [place] [address]- 7916 Mar, [facility] [place] [facility] [address] [id number] [place] [address]- 9350 Mar, [facility] [place] [facility] [address] [id number] [place] [address]- 1235 Mar, [facility] [place] [facility] [address] [id number] [place] [address]- 5808 Mar, [facility] [place] [facility] [address] [id number] [place] [address]- 4750 Dec, [facility] [place] [facility] [address] [id number] [place] [address]- 2712 Dec, [facility] [place] [facility] [address] [id number] [place] [address]- 3600 Dec, [facility] [place] [facility] [address] [id number] [place] [address]- 8205 Dec, [facility] [place] [facility] [address] [id number] [place] [address]- 8575 Dec, [facility] [place] [facility] [address] [id number] [place] [address]- 3475 Dec, [facility] [place] [facility] [address] [id number] [place] [address]- 4621 Dec, [facility] [place] [facility] [address] [id number] [place] [address]- 1025 Dec, [facility] [place] [facility] [address] [id number] [place] [address]- 3097 Nov, [facility] [place] [facility] [address] [id number] [place] [address]- 5946 Nov, [facility] [place] [facility] [address] [id number] [place] [address]- 3935 Nov, [facility] [place] [facility] [address] [id number] [place] [address]- 1712 Nov, [facility] [place] [facility] [address] [id number] [place] [address]- 8679 Nov, [facility] [place] [facility] [address] [id number] [place] [address]- 9611 Nov, [facility] [place] [facility] [address] [id number] [place] [address]- 254 Nov, [facility] [address] [id number] [place] [address]- 0146 Nov, [facility] [place] [facility] [address] [id number] [place] [address]- 1646 Aug, [facility] [place] [facility] [address] [id number] [place] [address]- 6986 Aug, [facility] [place] [facility] [address] [id number] [place] [address] Jul, [facility] [place] [facility] [address] [id number] [place] [address] Jul, [facility] [place] [facility] [address] [id number] [place] [address] Jul, [facility] [place] [facility] [address] [id number] [place] [address] Jun, [facility] [place] [facility] [address] [id number] [place] [address] 30 Jun, 2013 [facility] [place] [facility] [address] [id number] [place] [address] 24 Jun, 2013 [facility] [place] [facility] [address] [id number] [place] [address] Jun, [facility] [place] [facility] [address] [id number] [place] [address] Jun, [facility] [place] [facility] [address] [id number] [place] [address] May, [facility] [place] [facility] [address] [id number] [place] [address] Apr, [facility] [place] [facility] [address] [id number] [place] [address] Apr, [facility] [place] [facility] [address] [id number] [place] [address] Apr, [facility] [address] [id number] [place] [address] Mar, [facility] [place] [facility] [address] [id number] [place] [address] Mar, [facility] [place] [facility] [address] [id number] [place] [address] February, [facility] [place] [facility] [address] [id number] [place] [address] February, [facility] [address] [id number] [place] [address] February, [facility] [place] [facility] [address] [id number] [place] [address] February, [facility] [place] [facility] [address] [id number] [place] [address] Jan, [facility] [place] [facility] [address] [id number] [place] [address] Jan, [facility] [place] [facility] [address] [id number] [place] [address] Jan, [facility] [place] [facility] [address] [id number] [place] [address] 04 Jan, 2013 [facility] [place] [facility] [address] [id number] [place] [address] Dec, [facility] [place] [facility] [address] [id number] [address] 13 Dec, 2012 [facility] [place] [facility] [address] [id number] [place] [address] Dec, [facility] [place] [facility] [address] [id number] [place] [address] 22 Nov, 2012 [facility] [place] [facility] [address] [id number] [place] [address] 15 Nov, 2012 [facility] [place] [facility] [address] [id number] [place] [address] Nov, [facility] [address] [id number] [place] [address] Oct, [facility] [address] [id number] [place] [address] Oct, [facility] [address] [id number] [place] [address] Sep, [facility] [address] [id number] [place] [address] Sep, [facility] [address] [id number] [place] [address] Sep, [facility] [address] [id number] [place] [address] Sep, [facility] [address] [facility] [id number] [place] [address] Sep, [facility] [address] [id number] [place] [address] Aug, [facility] [address] [id number] [place] [address] Aug, [facility] [address] [facility] [id number] [place] [address] Aug, [facility] [address] [id number] [place] [address] Aug, [facility] [address] [id number] [place] [address] Aug, [facility] [address] [id number] [place] [address] Aug, [facility] [address] [id number] [place] [address] Jun, [facility] [address] [id number] [place] [address] Jun, [facility] [place] [facility] [address] [id number] [place] [address] Jun, [facility] [place] [facility] [address] [id number] [place] [address] May, [facility] [place] [facility] [address] [id number] [place] [address] May, [facility] [place] [facility] [address] [id number] [place] [address] May, [facility] [place] [facility] [address] [id number] [place] [address] May, [facility] [place] [facility] [address] [id number] [place] [address] Apr, [facility] [place] [facility] [address] [id number] [place] [address] Mar, [facility] [place] [facility] [address] [id number] [place] [address] Mar, [facility] [place] [facility] [address] [id number] [place] [address] Mar, [facility] [place] [facility] [address] [id number] [place] [address] February, [facility] [place] [facility] [address] [id number] [place] [address] February, [facility] [place] [facility] [address] [id number] [place] [address] February, [facility] [place] [facility] [address] [id number] [place] [address] February, [facility] [place] [facility] [address] [id number] [place] [address] Dec, [facility] [place] [facility] [address] [id number] [place] [address] Dec, [facility] [place] [facility] [address] [id number] [place] [address] Dec, [facility] [address] [id number] [place] [address] Dec, [facility] [place] [facility] [address] [id number] [place] [address] Nov, [facility] [place] [facility] [address] [id number] [place] [address] Nov, [facility] [place] [facility] [address] [id number] [place] [address] Nov, [facility] [place] [facility] [address] [id number] [place] [address] Nov, [facility] [place] [facility] [address] [id number] [place] [address] Nov, [facility] [place] [facility] [address] [id number] [place] [address] Oct, [facility] [place] [facility] [address] [id number] [place] [address] Oct, [facility] [place] [facility] [address] [id number] [place] [address] Oct, [facility] [place] [facility] [address] [facility] [id number] [place] [address] Aug, [facility] [place] [facility] [address] [id number] [place] [address] Aug, [facility] [place] [facility] [address] [id number], [place] [address] Jul, [facility] [place] [facility] [address] [id number] [place] [address] Jul, [facility] [place] [facility] [address] [id number] [place] [address] Jul, [facility] [place] [facility] [address] [id number], [place] [address] Jul, [facility] [address] [id number], [place] [address] 18 Jul, 2011 [facility] [address] [id number], [place] [address] Jul, [facility] [address] [facility] [id number] [address] Jul, [facility] [address] [facility] [id number], [place] [address] Jul, [facility] [address] [id number] [place] [address] May, [facility] [address] [facility] [id number] [place] [address] February, [facility] [address] [facility] [id number][place] [address] Nov, [facility] [address] [facility] [id number], [place] [address] Sep, [facility] [address] [facility] [id number], [place] [address] Aug, [facility] [address] [facility] [id number], [place] [address] Oct, [facility] [address] [facility] [id number], [place] [address] Jul, [facility] [address] [facility] [id number], [place] [address] Jun, [facility] [address] [facility] [id number], [place] [address] Mar, [facility] [address] [facility] [id number], [place] [address] Mar, [facility] [address] [facility] [id number][place] [address] 17 Nov, 2008 IMMUNIZATIONS No Known Immunizations [...]
[2019-01-24] MEDS ORDERED: ceFAZolin INJECTION 1,000 MG in WATER (STERILE) FOR INJECTION 10 ML IV ONE (08:00)
--- OUTSIDE RECORDS SUMMARY | 2019-01-24 08:01 | XMS REPORT | Continuity of Care Document ---
Author Author [facility] Address Unknown Phone Unavailable Allergies Active Description Code Type Severity Reaction Onset Reported/Identified Relationship to Patient Clinical Status Yes TAPE TAPE Unknown RASH 08/12/2008 Yes morphine Drug Allergy N/A N/A 11/22/2008 Yes morphine Drug Allergy 11/22/2008 Yes morphine [id number] Drug Allergy Unknown N/V 12/03/2009 Yes Tape Adhesive OA N/A N/A 12/16/2011 Yes Tape Adhesive OA 12/16/2011 Yes morphine [id number] Drug Allergy Mild N/V 01/22/2019 Yes TAPE TAPE Mild RASH 01/22/2019 Yes cyclobenzaprine [id number] Drug Allergy Unknown N/A 01/22/2019 Medications There is no data. Problems Date [...] An Anxiety Unspec 05/15/2008 ELAINE HANLEY DO F 296.30 MAJOR DEPRESSIVE AFFECTIVE DISORDER RECURRENT EPISODE [...] DISORDER RECURRENT EPISODE UNSPECIFIED DEGREE 05/15/2008 FRANCESCO PHILLPIS MD 300.00 An Anxiety Unspec 05/15/2008 DAMIÁN STEEN APRN 296.30 MAJOR DEPRESSIVE AFFECTIVE DISORDER RECURRENT EPISODE UNSPECIFIED DEGREE 05/15/2008 DAMIÁN STEEN APRN 300.00 An Anxiety Unspec 05/15/2008 ANASTASIYA JOHNSON APRN 296.30 MAJOR DEPRESSIVE AFFECTIVE DISORDER RECURRENT EPISODE UNSPECIFIED DEGREE 05/15/2008 ANASTASIYA JOHNSON APRN 300.00 An Anxiety Unspec 05/15/2008 FRANCESCO PHILLIPS MD 296.30 MAJOR DEPRESSIVE AFFECTIVE DISORDER RECURRENT EPISODE UNSPECIFIED DEGREE 05/15/2008 FRANCESCO PHILLIPS MD 300.00 An Anxiety Unspec 05/15/2008 ANASTASIYA JOHNSON APRN 296.30 MAJOR DEPRESSIVE AFFECTIVE DISORDER RECURRENT EPISODE UNSPECIFIED DEGREE 05/15/2008 CALLIE JOHNSON APRNETTE 300.00 An Anxiety Unspec 05/20/2008 ELAINE HANLEY DO 296.32 Major Depressive Affective Disorder Recurrent Episode Moderate Degree 05/20/2008 ELAINE HANLEY DO 296.32 Major Depressive Affective Disorder Recurrent Episode Moderate Degree 05/20/2008 296.32 Major Depressive Affective Disorder Recurrent Episode Moderate Degree 05/20/2008 296.32 Major Depressive Affective Disorder Recurrent Episode Moderate Degree 05/20/2008 ELAINE HANLEY DO F 296.32 Major Depressive Affective Disorder Recurrent Episode [...] Affective Disorder Recurrent Episode Moderate Degree 05/20/2008 CALLIE JOHNSON APRNETTE 296.32 Major Depressive Affective Disorder Recurrent Episode Moderate Degree 05/20/2008 FRANCESCO PHILLIPS MD 296.32 Major Depressive Affective Disorder Recurrent Episode Moderate Degree 05/20/2008 ANASTASIYA JOHNSON APRN 296.32 Major Depressive Affective Disorder Recurrent Episode Moderate Degree 07/16/2008 ELAINE HANLEY DO 309.9 AD ADJ D/O NOS 07/16/2008 ELAINE HANLEY DO 311 MO DEPRESSIVE DISORDER NOS 07/16/2008 ELAINE HANLEY DO 309.9 AD ADJ D/O NOS 07/16/2008 DAYAN CLAYTON ELAINE F 311 MO DEPRESSIVE DISORDER NOS 07/16/2008 309.9 AD ADJ D/O NOS 07/16/2008 311 MO DEPRESSIVE DISORDER NOS 07/16/2008 309.9 AD ADJ D/O NOS 07/16/2008 311 MO DEPRESSIVE DISORDER NOS 07/16/2008 DAYAN CLAYTON ELAINE F 309.9 AD ADJ D/O NOS 07/16/2008 DAYAN DO ELAINE F 311 MO DEPRESSIVE DISORDER NOS 07/16/2008 DAYAN CLAYTON ELAINE F 309.9 AD ADJ D/O NOS 07/16/2008 DAYAN DO ELAINE F 311 MO DEPRESSIVE DISORDER NOS 07/16/2008 309.9 AD ADJ D/O NOS 07/16/2008 311 MO DEPRESSIVE DISORDER NOS 07/16/2008 309.9 AD ADJ D/O NOS 07/16/2008 311 MO DEPRESSIVE DISORDER NOS 07/16/2008 309.9 AD ADJ D/O NOS 07/16/2008 311 MO DEPRESSIVE DISORDER NOS 07/16/2008 FRANCESCO PHILLIPS MD 309.9 AD ADJ D/O NOS 07/16/2008 FRANCESCO PHILLIPS MD 311 MO DEPRESSIVE DISORDER NOS 07/16/2008 DAYAN CLAYTON ELAINE F 309.9 AD ADJ D/O NOS 07/16/2008 DAYAN CLAYTON ELAINE F 311 MO DEPRESSIVE DISORDER NOS 07/16/2008 FRANCESCO [...] APRN 311 MO DEPRESSIVE DISORDER NOS 07/16/2008 ALEX PETER, ANASTASIYA 309.9 AD ADJ D/O NOS 07/16/2008 ALEX PETER, ANASTASIYA 311 MO DEPRESSIVE DISORDER NOS 07/16/2008 FRANCESCO PHILLIPS MD 309.9 AD ADJ D/O NOS 07/16/2008 FRANCESCO PHILLIPS MD 311 MO DEPRESSIVE DISORDER NOS 07/16/2008 ALEX SYRUP MIXER, ANASTASIYA 309.9 AD ADJ D/O NOS 07/16/2008 ALEX PETER, ANASTASIYA 311 MO DEPRESSIVE DISORDER NOS 09/25/2008 ELAINE [...] STEEN APRN 307.47 SI DYSSOMNIA NOS 09/25/2008 ALEX PETER, ANASTASIYA 307.47 SI DYSSOMNIA NOS 09/25/2008 FRANCESCO PHILLIPS [...] Taking High-risk Medication 10/02/2008 CELSA PETER DAMIÁN ODILON V58.69 Taking High-risk Medication 10/02/2008 SHANNON BAZANS, SACHA Granados V58.69 Taking High-risk Medication 10/02/2008 FRANCESCO PHILLIPS MD V58.69 Taking High-risk Medication 10/02/2008 FRANCESCO PHILLIPS MD V58.69 Taking High-risk Medication 10/02/2008 CELSA PETER DAMIÁN NEGRETEH V58.69 Taking High-risk Medication 10/02/2008 ANASTASIYA JOHNSON [...] MD 790.29 Prediabetes 10/05/2008 ELAINE HANLEY DO 790.29 Prediabetes 10/05/2008 FRANCESCO PHILLIPS MD 790.29 Prediabetes 10/05/2008 CELSA PETER DAMIÁN DONALD 790.29 Prediabetes 10/05/2008 WHITE DDS, SACHA Granados 790.29 Prediabetes 10/05/2008 FRANCESCO PHILLIPS MD 790.29 Prediabetes 10/05/2008 FRANCESCO PHILLIPS MD 790.29 Prediabetes 10/05/2008 CELSA PETER DAMIÁN NEGRETEH 790.29 Prediabetes 10/05/2008 ALEX BRITTANI, ANASTASIYA 790.29 Prediabetes 10/05/2008 FRANCESCO PHILLIPS MD 790.29 Prediabetes 10/05/2008 ALEX SYRUP MIXER, ANASTASIYA 790.29 Prediabetes 10/15/2008 ELAINE HANLEY DO 995.20 Unspecified Adverse [...] Causing Adverse Effects In Therapeutic Use 10/15/2008 CELSA PETER DAMIÁN ODILON 995.20 Unspecified Adverse Effect Of Unspecified Drug Medicinal And Biological Substance 10/15/2008 CELSA PETER DAMIÁN ODILON E939.9 Unspecified Psychotropic Agent Causing Adverse Effects In Therapeutic Use 10/15/2008 WHITE DDS, SACHA J 995.20 Unspecified Adverse Effect Of [...] Causing Adverse Effects In Therapeutic Use 10/15/2008 CELSA PETERDAMIÁN 995.20 Unspecified Adverse Effect Of Unspecified Drug Medicinal And Biological Substance 10/15/2008 CELSA PETER DAMIÁN NEGRETEH E939.9 Unspecified Psychotropic Agent Causing Adverse Effects [...] MD 786.2 Cough 01/23/2009 ELAINE HANLEY DO F 530.11 ESOPHAGITIS CHRONIC REFLUX 01/23/2009 ELAINE HANLEY DO F 786.2 Cough 01/23/2009 FRANCESCO PHILLIPS MD 530.11 ESOPHAGITIS CHRONIC REFLUX 01/23/2009 FRANCESCO PHILLIPS MD 786.2 Cough 01/23/2009 CELSA PETER, DAMIÁN DONALD 530.11 ESOPHAGITIS CHRONIC REFLUX 01/23/2009 CELSA PETER, DAMIÁN DONALD 786.2 Cough 01/23/2009 WHITE DDS, SACHA J 530.11 ESOPHAGITIS CHRONIC REFLUX 01/23/2009 WHITE DDS, SACHA J 786.2 Cough 01/23/2009 FRANCESCO PHILLIPS MD 530.11 ESOPHAGITIS CHRONIC REFLUX 01/23/2009 FRANCESCO PHILLIPS MD 786.2 Cough 01/23/2009 FRANCESCO PHILLIPS MD 530.11 ESOPHAGITIS CHRONIC REFLUX 01/23/2009 FRANCESCO PHILLIPS MD 786.2 Cough 01/23/2009 CELSA PETER, DAMIÁN DONALD 530.11 ESOPHAGITIS CHRONIC REFLUX 01/23/2009 CELSA PETER, DAMIÁN NEGRETEH 786.2 Cough 01/23/2009 ANASTASIYA JOHNSON APRN 530.11 ESOPHAGITIS CHRONIC REFLUX 01/23/2009 ANASTASIYA JOHNSON APRN 786.2 Cough 01/23/2009 FRANCESCO PHILLIPS MD 530.11 ESOPHAGITIS CHRONIC REFLUX 01/23/2009 FRANCESCO PHILLIPS MD 786.2 Cough 01/23/2009 ANASTASIYA JOHNSON APRN 530.11 ESOPHAGITIS CHRONIC REFLUX 01/23/2009 ALEX PETER, ANASTASIYA 786.2 Cough 01/27/2009 ELAINE HANLEY DO F 465.9 Upper Respiratory Infection 01/27/2009 ELAINE HANLEY DO 465.9 Upper Respiratory Infection 01/27/2009 465.9 Upper Respiratory Infection 01/27/2009 465.9 Upper Respiratory Infection 01/27/2009 ELAINE HANLEY DO 465.9 Upper Respiratory Infection 01/27/2009 ELAINE HANLEY DO F 465.9 Upper Respiratory Infection 01/27/2009 465.9 Upper Respiratory Infection 01/27/2009 465.9 Upper Respiratory Infection 01/27/2009 465.9 Upper Respiratory Infection 01/27/2009 ALAN HA, FRANCESCO 465.9 Upper Respiratory Infection 01/27/2009 ELAINE HANLEY DO 465.9 Upper Respiratory Infection 01/27/2009 ALAN HA, FRANCESCO 465.9 Upper Respiratory Infection 01/27/2009 STEEN SYRUP MIXER, DAMIÁN DONALD 465.9 Upper Respiratory Infection 01/27/2009 WHITE DDS, SACHA Granados 465.9 Upper Respiratory Infection 01/27/2009 FRANCESCO PHILLIPS MD 465.9 Upper Respiratory Infection 01/27/2009 FRANCESCO PHILLIPS MD 465.9 Upper Respiratory Infection 01/27/2009 STEEN SYRUP MIXER, DAMIÁN DONADL 465.9 Upper Respiratory Infection 01/27/2009 ALEX SYRUP MIXER, ANASTASIYA 465.9 Upper Respiratory Infection 01/27/2009 FRANCESCO PHILLIPS MD 465.9 Upper Respiratory Infection 01/27/2009 ALEX SYRUP MIXER, ANASTASIYA 465.9 Upper Respiratory Infection 02/25/2009 ELAINE [...] AN GEN ANXIETY 02/25/2009 ELAINE HANLEY DO F 296.35 MO DEPRESSIVE RECURRENT IN PART OR UNSPECIFIED REMISSION 02/25/2009 ELAINE HANLEY DO 300.02 AN GEN ANXIETY 02/25/2009 FRANCESCO PHILLIPS MD 296.35 MO DEPRESSIVE RECURRENT IN PART OR UNSPECIFIED REMISSION 02/25/2009 FRANCESCO PHILLIPS MD 300.02 AN GEN ANXIETY 02/25/2009 DAMIÁN STEEN APRN 296.35 MO DEPRESSIVE RECURRENT IN PART OR UNSPECIFIED REMISSION 02/25/2009 DAMIÁN STEEN APRN 300.02 AN GEN ANXIETY 02/25/2009 SHANNON DDSSACHA J 296.35 MO DEPRESSIVE RECURRENT IN PART OR UNSPECIFIED REMISSION 02/25/2009 WHITE DDS, SACHA J 300.02 AN GEN ANXIETY 02/25/2009 FRANCESCO PHILLIPS MD 296.35 MO DEPRESSIVE RECURRENT IN PART OR UNSPECIFIED REMISSION 02/25/2009 FRANCESCO PHILLIPS MD 300.02 AN GEN ANXIETY 02/25/2009 FRACNESCO PHILLIPS MD 296.35 MO DEPRESSIVE RECURRENT IN PART OR UNSPECIFIED REMISSION 02/25/2009 FRANCESCO PHILLIPS MD 300.02 AN GEN ANXIETY 02/25/2009 DAMIÁN STEEN APRN 296.35 MO DEPRESSIVE RECURRENT IN PART OR UNSPECIFIED REMISSION 02/25/2009 DAMIÁN STEEN APRN 300.02 AN GEN ANXIETY 02/25/2009 ANASTASIYA JOHNSON APRN 296.35 MO DEPRESSIVE RECURRENT IN PART OR UNSPECIFIED REMISSION 02/25/2009 CALLIE JOHNSON APRNETTE 300.02 AN GEN ANXIETY 02/25/2009 FRANCESCO PHILLIPS MD 296.35 MO DEPRESSIVE RECURRENT IN PART OR UNSPECIFIED REMISSION 02/25/2009 FRANCESCO PHILLIPS MD 300.02 AN GEN ANXIETY 02/25/2009 CALLIE JOHNSON APRNETTE 296.35 MO DEPRESSIVE RECURRENT IN PART OR UNSPECIFIED REMISSION 02/25/2009 ALEX PETER ANASTASIYA 300.02 AN GEN ANXIETY 03/24/2009 ELAINE HANLEY DO 564.00 Constipation Chronic 03/24/2009 WERDER DO, ELAINE F E887 Fracture Cause Unspecified 03/24/2009 ELAINE HANLEY DO F 564.00 Constipation Chronic 03/24/2009 ELAINE HANLEY DO F E887 Fracture Cause Unspecified 03/24/2009 564.00 Constipation Chronic 03/24/2009 E887 Fracture Cause Unspecified 03/24/2009 564.00 Constipation Chronic 03/24/2009 E887 Fracture Cause Unspecified 03/24/2009 ELAINE HANLEY DO F 564.00 Constipation Chronic 03/24/2009 ELAINE HANLEY DO F E887 Fracture Cause Unspecified 03/24/2009 ELAINE HANLEY DO F 564.00 Constipation Chronic 03/24/2009 ELAINE HANLEY DO F E887 Fracture Cause Unspecified 03/24/2009 564.00 Constipation Chronic 03/24/2009 E887 Fracture Cause Unspecified 03/24/2009 564.00 Constipation Chronic 03/24/2009 E887 Fracture Cause Unspecified 03/24/2009 564.00 Constipation Chronic 03/24/2009 E887 Fracture Cause Unspecified 03/24/2009 FRANCESCO PHILLIPS MD4.00 Constipation Chronic 03/24/2009 FRANCESCO PHILLIPS MD E887 Fracture Cause Unspecified 03/24/2009 ELAINE HANLEY DO F 564.00 Constipation Chronic 03/24/2009 NAEELAINE NIELSEN DO F E887 Fracture Cause Unspecified 03/24/2009 FRANCESCO PHILLIPS MD 564.00 Constipation Chronic 03/24/2009 FRANCESCO PHILLIPS MD E887 Fracture Cause Unspecified 03/24/2009 DAMIÁN STEEN APRN 564.00 Constipation Chronic 03/24/2009 DAMIÁN STEEN APRN E887 Fracture Cause Unspecified 03/24/2009 SHANNON BAZANSDREAON J 564.00 Constipation Chronic 03/24/2009 WHITE HORTENSIAS SACHA J E887 Fracture Cause Unspecified 03/24/2009 FRANCESCO PHILLIPS MD4.00 Constipation Chronic 03/24/2009 FRANCESCO PHILLIPS MD E887 Fracture Cause Unspecified 03/24/2009 FRANCESCO PHILLIPS MD4.00 Constipation Chronic 03/24/2009 FRANCESCO PHILLIPS MD E887 Fracture Cause Unspecified 03/24/2009 DAMIÁN STEEN APRN 564.00 Constipation Chronic 03/24/2009 DAMIÁN STEEN APRN E887 Fracture Cause Unspecified 03/24/2009 ANASTASIYA JOHNSON APRN 564.00 Constipation Chronic 03/24/2009 ALEX PETER, ANASTASIYA E887 Fracture Cause Unspecified 03/24/2009 FRANCESCO PHILLIPS [...] ELAINE HANLEY DO 271.9 GLUCOSE INTOLERANCE 04/03/2009 271.9 GLUCOSE INTOLERANCE 04/03/2009 271.9 GLUCOSE INTOLERANCE 04/03/2009 271.9 GLUCOSE INTOLERANCE 04/03/2009 FRANCECSO PHILLIPS MD 271.9 GLUCOSE INTOLERANCE 04/03/2009 ELAINE HANLEY DO 271.9 GLUCOSE INTOLERANCE 04/03/2009 FRANCESCO PHILLIPS MD 271.9 GLUCOSE INTOLERANCE 04/03/2009 DAMIÁN STEEN APRN 271.9 GLUCOSE INTOLERANCE 04/03/2009 SACHA ORTEGA DDS 271.9 GLUCOSE INTOLERANCE 04/03/2009 FRANCESCO PHILLIPS MD 271.9 GLUCOSE INTOLERANCE 04/03/2009 FRANCESCO PHILLIPS MD 271.9 GLUCOSE INTOLERANCE 04/03/2009 DAMIÁN STEEN APRN 271.9 GLUCOSE INTOLERANCE 04/03/2009 ALEX PETER, ANASTASIYA 271.9 GLUCOSE INTOLERANCE 04/03/2009 FRANCESCO PHILLIPS MD 271.9 GLUCOSE INTOLERANCE 04/03/2009 ANASTASIYA JOHNSON APRN 271.9 GLUCOSE INTOLERANCE 04/07/2009 ELAINE HANLEY DO 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 04/07/2009 ELAINE HANLEY DO 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 04/07/2009 ELAINE HANLEY DO 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 04/07/2009 WERDER DO, ELAINE F 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 04/07/2009 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 04/07/2009 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 04/07/2009 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 04/07/2009 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 04/07/2009 FRANCESCO PHILLIPS MD 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 04/07/2009 FRANCESCO PHILLIPS MD 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 04/07/2009 ALEX SYRUP MIXER, ANASTASIYA 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 04/07/2009 ALEX SYRUP MIXER, ANASTASIYA 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 04/08/2009 ELAINE HANLEY DO F 272.4 HYPERLIPIDEMIA 04/08/2009 MARILY HANLEY DOEN F 727.03 Trigger Finger Of Right Ring Finger 04/08/2009 MARILY HANLEY DOEN F 272.4 HYPERLIPIDEMIA 04/08/2009 ELAINE HANLEY DO F 727.03 Trigger Finger Of Right Ring Finger 04/08/2009 272.4 HYPERLIPIDEMIA 04/08/2009 727.03 Trigger Finger Of Right Ring Finger 04/08/2009 272.4 HYPERLIPIDEMIA 04/08/2009 727.03 Trigger Finger Of Right Ring Finger 04/08/2009 ELAINE HANLEY DO F 272.4 HYPERLIPIDEMIA 04/08/2009 MARILY HANLEY DOEN F 727.03 Trigger Finger Of Right Ring Finger 04/08/2009 MARILY HANLEY DOEN F 272.4 HYPERLIPIDEMIA 04/08/2009 MARILY HANLEY DOEN F 727.03 Trigger Finger Of Right Ring Finger 04/08/2009 272.4 HYPERLIPIDEMIA 04/08/2009 727.03 Trigger Finger Of Right Ring Finger 04/08/2009 272.4 HYPERLIPIDEMIA 04/08/2009 727.03 Trigger Finger Of Right Ring Finger 04/08/2009 272.4 HYPERLIPIDEMIA 04/08/2009 727.03 Trigger Finger Of Right Ring Finger 04/08/2009 FRANCESCO PHILLIPS MD 272.4 HYPERLIPIDEMIA 04/08/2009 FRANCESCO PHILLIPS MD 727.03 Trigger Finger Of Right Ring Finger 04/08/2009 ELAINE HANLEY DO 272.4 HYPERLIPIDEMIA 04/08/2009 ELAINE HANLEY DO 727.03 Trigger Finger Of Right Ring Finger 04/08/2009 FRANCESCO PHILLIPS MD 272.4 HYPERLIPIDEMIA 04/08/2009 FRANCESCO PHILLIPS MD 727.03 Trigger Finger Of Right Ring Finger 04/08/2009 CELSA PETER, DAMIÁN NEGRETEH 272.4 HYPERLIPIDEMIA 04/08/2009 CELSA PETER, DAMIÁN ODILON [...] Finger Of Right Ring Finger 04/08/2009 CELSA PETER DAMIÁN ODILON 272.4 HYPERLIPIDEMIA 04/08/2009 CELSA PETER, DAMIÁN NEGRETEH 727.03 Trigger Finger Of Right Ring Finger 04/08/2009 ALEX SYRUP MIXER, ANASTASIYA 272.4 HYPERLIPIDEMIA 04/08/2009 ALEX SYRUP MIXER, ANASTASIYA 727.03 Trigger Finger Of Right Ring Finger 04/08/2009 FRANCESCO PHILLIPS MD 272.4 HYPERLIPIDEMIA 04/08/2009 FRANCESCO PHILLIPS MD 727.03 Trigger Finger Of Right Ring Finger 04/08/2009 ALEX SYRUP MIXER, ANASTASIYA 272.4 HYPERLIPIDEMIA 04/08/2009 ALEX SYRUP MIXER, ANASTASIYA 727.03 Trigger Finger Of Right Ring Finger 05/16/2009 ELAINE HANLEY DO 785.2 Murmurs, Undiagnosed Cardiac 05/16/2009 ELAINE HANLEY DO V72.83 Visit For: Pre-procedural Exam Prior To General Surgery 05/16/2009 ELAINE HANLEY DO 785.2 Murmurs, Undiagnosed [...] Murmurs, Undiagnosed Cardiac 05/16/2009 ELAINE HANLEY DO F V72.83 Visit For: Pre-procedural Exam Prior To General Surgery 05/16/2009 ELAINE HANLEY DO F 785.2 Murmurs, Undiagnosed Cardiac 05/16/2009 ELAINE HANLEY DO F V72.83 Visit For: Pre-procedural Exam Prior [...] To General Surgery 05/16/2009 ELAINE HANLEY DO 785.2 Murmurs, Undiagnosed Cardiac 05/16/2009 ELAINE HANLEY DO V72.83 Visit For: Pre-procedural Exam Prior To General Surgery 05/16/2009 FRANCESCO PHILLIPS MD 785.2 Murmurs, Undiagnosed Cardiac 05/16/2009 FRANCESCO PHILLIPS MD V72.83 Visit For: Pre-procedural Exam Prior To General Surgery 05/16/2009 DAMIÁN STEEN APRN 785.2 Murmurs, Undiagnosed Cardiac 05/16/2009 CELSA PETER DAMIÁN DONALD V72.83 Visit For: Pre-procedural Exam Prior To General Surgery 05/16/2009 SHANNON DDS, SACHA J 785.2 Murmurs, Undiagnosed Cardiac [...] Murmurs, Undiagnosed Cardiac 05/16/2009 CELSA PETER, DAMIÁN NEGRETEH V72.83 Visit For: Pre-procedural Exam Prior To General Surgery 05/16/2009 ANASTASIYA JOHNSON APRN 785.2 Murmurs, Undiagnosed Cardiac 05/16/2009 ALEX PETER ANASTASIYA V72.83 Visit For: Pre-procedural Exam Prior To General Surgery 05/16/2009 FRANCESCO PHILLIPS MD 785.2 Murmurs, Undiagnosed Cardiac 05/16/2009 FRANCESCO PHILLIPS MD V72.83 Visit For: Pre-procedural Exam Prior To General Surgery 05/16/2009 ANASTASIYA JOHNSON APRN 785.2 Murmurs, Undiagnosed Cardiac 05/16/2009 ALEX PETER ANASTASIYA V72.83 Visit For: Pre-procedural Exam Prior [...] Sites Without Infection 06/13/2009 ELAINE HANLEY DO F 919.4 Insect Bite Nonvenomous Of Other Multiple [...] Multiple And Unspecified Sites Without Infection 06/13/2009 DAMIÁN STEEN APRN 919.4 Insect Bite Nonvenomous Of Other Multiple And Unspecified Sites Without Infection 06/13/2009 SACHA ORTEGA DDS 919.4 Insect Bite Nonvenomous Of Other Multiple And Unspecified Sites Without Infection 06/13/2009 FRANCESCO PHILLIPS MD 919.4 Insect Bite Nonvenomous Of Other Multiple And Unspecified Sites Without Infection 06/13/2009 FRANCESCO PHILLIPS MD 919.4 Insect Bite Nonvenomous Of Other Multiple And Unspecified Sites Without Infection 06/13/2009 DAMIÁN STEEN APRN 919.4 Insect Bite Nonvenomous Of Other [...] 07/11/2009 FRANCESCO PHILLIPS MD 787.02 Nausea 07/11/2009 CELSA PETER, DAMIÁN DONALD 787.02 Nausea 07/11/2009 SACHA ORTEGA DDS 787.02 Nausea 07/11/2009 FRANCESCO PHILLIPS MD 787.02 Nausea 07/11/2009 FRANCESCO PHILLIPS MD 787.02 Nausea 07/11/2009 CELSA PETER DAMIÁN ODILON 787.02 Nausea 07/11/2009 ALEX SYRUP MIXER, ANASTASIYA 787.02 Nausea 07/11/2009 FRANCESCO PHILLIPS MD 787.02 Nausea 07/11/2009 ALEX SYRUP MIXER, ANASTASIYA 787.02 Nausea 08/14/2009 ELAINE HANLEY DO [...] Unspecified Malignant Neoplasm 08/14/2009 CELSA PETER DAMIÁN ODILON V16.9 Family History Of Unspecified Malignant Neoplasm [...] Family History Of Unspecified Malignant Neoplasm 12/25/2009 MARILY HANLEY DOEN F 698.9 Unspecified Pruritic Disorder 12/25/2009 ELAINE [...] DO F 698.9 Unspecified Pruritic Disorder 12/25/2009 FRANCESCO PHILLIPS MD 698.9 Unspecified Pruritic Disorder 12/25/2009 DAMIÁN STEEN APRN 698.9 Unspecified Pruritic Disorder 12/25/2009 SHANNON BAZANS, SACHA Granados 698.9 Unspecified Pruritic Disorder 12/25/2009 FRANCESCO PHILLIPS MD 698.9 Unspecified Pruritic Disorder 12/25/2009 FARNCESCO PHILLIPS MD 698.9 Unspecified Pruritic Disorder 12/25/2009 DAMIÁN STEEN APRN 698.9 Unspecified Pruritic Disorder 12/25/2009 ANASTASIYA JOHNSON APRN 698.9 Unspecified Pruritic Disorder 12/25/2009 FRANCESCO PHILLIPS MD 698.9 Unspecified Pruritic Disorder 12/25/2009 ALEX CALLIE PETERETTE 698.9 Unspecified Pruritic Disorder 04/16/2010 ELAINE HANLEY DO 455.6 Hemorrhoids Nos 04/16/2010 ELAINE HANLEY DO V72.31 Control 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 Exam, Routine 04/16/2010 ELAINE HANLEY DO 455.6 Hemorrhoids Nos 04/16/2010 ELAINE HANLEY DO V72.31 Control 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 Exam, Routine 04/16/2010 455.6 Hemorrhoids Nos 04/16/2010 V72.31 Control 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 Exam, Routine 04/16/2010 455.6 Hemorrhoids Nos 04/16/2010 V72.31 Control 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 Exam, Routine 04/16/2010 ELAINE HANLEY DO 455.6 Hemorrhoids Nos 04/16/2010 ELAINE HANLEY DO V72.31 Control 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 Exam, Routine 04/16/2010 ELAINE HANLEY DO 455.6 Hemorrhoids Nos 04/16/2010 ELAINE HANLEY DO V72.31 Control 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 Exam, Routine 04/16/2010 455.6 Hemorrhoids Nos 04/16/2010 V72.31 Control 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 Exam, Routine 04/16/2010 455.6 Hemorrhoids Nos 04/16/2010 V72.31 Control 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 Exam, Routine 04/16/2010 455.6 Hemorrhoids Nos 04/16/2010 V72.31 Control 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 Exam, Routine 04/16/2010 FRANCESCO PHILLIPS MD 455.6 Hemorrhoids Nos 04/16/2010 FRANCESCO PHILLIPS MD V72.31 Control 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 Exam, Routine 04/16/2010 ELAINE HANLEY DO 455.6 Hemorrhoids Nos 04/16/2010 ELAINE HANLEY DO V72.31 Control 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 Exam, Routine 04/16/2010 FRANCESCO PHILLIPS MD 455.6 Hemorrhoids Nos 04/16/2010 FRANCESCO PHILLIPS MD V72.31 Control 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 Exam, Routine 04/16/2010 DAMIÁN STEEN APRN 455.6 Hemorrhoids Nos 04/16/2010 DAMIÁN STEEN APRN V72.31 Control 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 Exam, Routine 04/16/2010 WHITE DDSDREAON J 455.6 Hemorrhoids Nos 04/16/2010 WHITE DDS, SACHA J V72.31 Control 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 Exam, Routine 04/16/2010 FRANCESCO PHILLIPS MD 455.6 Hemorrhoids Nos 04/16/2010 ALAN HA, FRANCESCO V72.31 Control 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 Exam, Routine 04/16/2010 ALAN HA, FRANCESCO 455.6 Hemorrhoids Nos 04/16/2010 ALAN HA, FRANCESCO V72.31 Control 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 Exam, Routine 04/16/2010 STEEN SYRUP MIXER, DAMIÁN DONALD 455.6 Hemorrhoids Nos 04/16/2010 STEEN SYRUP MIXER, DAMIÁN DONALD V72.31 Control 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 Exam, Routine 04/16/2010 ALEX SYRUP MIXER, ANASTASIYA 455.6 Hemorrhoids Nos 04/16/2010 ALEX SYRUP MIXER, ANASTASIYA V72.31 Control 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 Exam, Routine 04/16/2010 FRANCESCO PHILLIPS MD 455.6 Hemorrhoids Nos 04/16/2010 ALAN HA, FRANCESCO 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 Control 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 Exam, Routine 04/16/2010 ALEX SYRUP MIXER, ANASTASIYA 455.6 Hemorrhoids Nos 04/16/2010 ALEX SYRUP MIXER, ANASTASIYA V72.31 Control 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 Exam, Routine 07/10/2010 Ot 719.41 07/10/2010 Ot V57.1 07/10/2010 Ot V58.49 12/04/2010 ELAINE HANLEY DO 780.4 Dizziness And Vertigo 12/04/2010 ELAINE HANLEY DO V65.49 Other Specified Counseling 12/04/2010 ELAINE HANLEY DO V68.1 Issue Of Repeat Prescriptions 12/04/2010 ELAINE HANLEY DO 780.4 Dizziness And Vertigo 12/04/2010 ELAINE HANLEY DO V65.49 Other Specified Counseling 12/04/2010 ELAINE HANLEY DO V68.1 Issue Of Repeat Prescriptions 12/04/2010 780.4 Dizziness And Vertigo 12/04/2010 V65.49 Other Specified Counseling 12/04/2010 V68.1 Issue Of Repeat Prescriptions 12/04/2010 780.4 Dizziness And Vertigo 12/04/2010 V65.49 Other Specified Counseling 12/04/2010 V68.1 Issue Of Repeat Prescriptions 12/04/2010 ELAINE HANLEY DO 780.4 Dizziness And Vertigo 12/04/2010 ELAINE HANLEY DO F V65.49 Other Specified Counseling 12/04/2010 ELAINE HANLEY DO V68.1 Issue Of Repeat Prescriptions 12/04/2010 WERDER DO, ELAINE F 780.4 Dizziness And Vertigo 12/04/2010 DAYAN DO ELAINE F V65.49 Other Specified Counseling 12/04/2010 DAYAN CLAYTON ELAINE F V68.1 Issue Of Repeat Prescriptions 12/04/2010 [...] F 780.4 Dizziness And Vertigo 12/04/2010 DAYAN CLAYTON ELAINE F V65.49 Other Specified Counseling 12/04/2010 DAYAN CLAYTON ELAINE F V68.1 Issue Of Repeat Prescriptions 12/04/2010 [...] V68.1 Issue Of Repeat Prescriptions 12/04/2010 STEEN BRITTANI DAMIÁN DONALD 780.4 Dizziness And Vertigo 12/04/2010 STEEN SYRUP MIXER, DAMIÁN DONALD V65.49 Other Specified Counseling 12/04/2010 STEEN SYRUP MIXER, DAMIÁN DONALD V68.1 Issue Of Repeat Prescriptions 12/04/2010 ALEX SYRUP MIXER ANASTASIYA 780.4 Dizziness And Vertigo 12/04/2010 ALEX SYRUP MIXER, ANASTASIYA V65.49 Other Specified Counseling 12/04/2010 ALEX SYRUP MIXER, ANASTASIYA V68.1 Issue Of Repeat Prescriptions 12/04/2010 FRANCESCO PHILLIPS MD 780.4 Dizziness And Vertigo 12/04/2010 FRANCESCO PHILLIPS MD V65.49 Other Specified Counseling 12/04/2010 FRANCESCO PHILLIPS MD V68.1 Issue Of Repeat Prescriptions 12/04/2010 ALEX SYRUP MIXER ANASTASIYA 780.4 Dizziness And Vertigo 12/04/2010 ALEX SYRUP MIXER, ANASTASIYA V65.49 Other Specified Counseling 12/04/2010 ALEX SYRUP MIXER, ANASTASIYA V68.1 Issue Of Repeat Prescriptions 03/02/2011 [...] DAMIÁN DONALD 786.05 Shortness Of Breath 03/02/2011 SACHA ORTEGA DDS J 786.05 Shortness Of Breath 03/02/2011 FRANCESCO PHILLIPS MD 786.05 Shortness Of Breath 03/02/2011 FRANCESCO PHILLIPS MD 786.05 Shortness Of Breath 03/02/2011 CELSA PETER, DAMIÁN DONALD 786.05 Shortness Of Breath 03/02/2011 ALEX PETER, ANASTASIYA 786.05 Shortness Of Breath 03/02/2011 FRANCESCO PHILLIPS MD 786.05 Shortness Of Breath 03/02/2011 ALEX PETER, ANASTASIYA 786.05 Shortness Of Breath 2011 NAEDER DO ELAINE F 786.50 Chest Pain 2011 NAEDER DO ELAINE F 786.50 Chest Pain 2011 786.50 Chest Pain 2011 786.50 Chest Pain 2011 NAEDER DO ELAINE F 786.50 Chest Pain 2011 DAYAN DO ELAINE F 786.50 Chest Pain 2011 786.50 Chest Pain 2011 786.50 Chest Pain 2011 786.50 Chest Pain 2011 FRANCESCO PHILLIPS MD 786.50 Chest Pain 2011 DAYAN CLAYTON ELAINE F 786.50 Chest Pain 2011 FRANCESCO PHILLIPS MD 786.50 Chest Pain 2011 CELSA PETER, DAMIÁN DONALD 786.50 Chest Pain 2011 SACHA ORTEGA DDS 786.50 Chest Pain 2011 FRANCESCO PHILLIPS MD 786.50 Chest Pain 2011 FRANCESCO PHILLIPS MD 786.50 Chest Pain 2011 CELSA PETER, DAMIÁN DONALD 786.50 Chest Pain 2011 ALEX PETER, ANASTASIYA 786.50 Chest Pain 2011 FRANCESCO PHILLIPS MD 786.50 Chest Pain 2011 ANASTASIYA JOHNSON APRN 786.50 Chest Pain 03/06/2011 Ot 272.0 03/06/2011 Ot 272.4 03/06/2011 Ot 280.0 03/06/2011 Ot 296.80 03/06/2011 Ot 411.1 03/06/2011 Ot 414.01 03/06/2011 Ot 530.81 03/06/2011 Ot 564.00 03/06/2011 Ot 792.1 03/08/2011 Ot 272.4 03/08/2011 Ot 414.01 03/08/2011 Ot 786.50 03/08/2011 Ot V58.66 03/08/2011 Ot V58.69 03/24/2011 ELAINE HANLEY DO 285.9 ANEMIA 03/24/2011 ELAINE HANLEY DO 780.79 MALAISE AND FATIGUE 03/24/2011 ELAINE HANLEY DO F 285.9 ANEMIA 03/24/2011 ELAINE HANLEY DO F 780.79 MALAISE AND FATIGUE 03/24/2011 285.9 ANEMIA 03/24/2011 780.79 MALAISE AND FATIGUE 03/24/2011 285.9 ANEMIA 03/24/2011 780.79 MALAISE AND FATIGUE 03/24/2011 ELAINE HANLEY DO F 285.9 ANEMIA 03/24/2011 ELAINE HANLEY DO F 780.79 MALAISE AND FATIGUE 03/24/2011 ELAINE HANLEY DO F 285.9 ANEMIA 03/24/2011 ELAINE HANLEY DO F 780.79 MALAISE AND FATIGUE 03/24/2011 285.9 ANEMIA 03/24/2011 780.79 MALAISE AND FATIGUE 03/24/2011 285.9 ANEMIA 03/24/2011 780.79 MALAISE AND FATIGUE 03/24/2011 285.9 ANEMIA 03/24/2011 780.79 MALAISE AND FATIGUE 03/24/2011 FRANCESCO PHILLIPS MD 285.9 ANEMIA 03/24/2011 FRANCESCO PHILLIPS MD 780.79 MALAISE AND FATIGUE 03/24/2011 ELAINE HANLEY DO F 285.9 ANEMIA 03/24/2011 ELAINE HANLEY DO 780.79 MALAISE AND FATIGUE 03/24/2011 FRANCESCO PHILLIPS [...] MD 780.79 MALAISE AND FATIGUE 03/24/2011 STEEN SYRUP MIXER, DAMIÁN NEGRETEH 285.9 ANEMIA 03/24/2011 STEEN SYRUP MIXER, DAMIÁN ODILON 780.79 MALAISE AND FATIGUE 03/24/2011 ALEX SYRUP MIXER, ANATSASIYA 285.9 ANEMIA 03/24/2011 ALEX SYRUP MIXER, ANASTASIYA 780.79 MALAISE AND FATIGUE 03/24/2011 FRANCESCO PHILLIPS MD 285.9 ANEMIA 03/24/2011 FRANCESCO PHILLIPS MD 780.79 MALAISE AND FATIGUE 03/24/2011 ALEX SYRUP MIXER, ANASTASIYA 285.9 ANEMIA 03/24/2011 ALEX SYRUP MIXER, ANASTASIYA 780.79 MALAISE AND FATIGUE 05/12/2011 ELAINE HANLEY DO 244.9 HYPOTHYROIDISM 05/12/2011 ELAINE HANLEY DO F 244.9 HYPOTHYROIDISM 05/12/2011 244.9 HYPOTHYROIDISM 05/12/2011 244.9 HYPOTHYROIDISM 05/12/2011 ELAINE HANLEY DO F 244.9 HYPOTHYROIDISM 05/12/2011 ELAINE HANLEY DO 244.9 HYPOTHYROIDISM 05/12/2011 244.9 HYPOTHYROIDISM 05/12/2011 244.9 HYPOTHYROIDISM 05/12/2011 244.9 HYPOTHYROIDISM 05/12/2011 FRANCESCO PHILLIPS MD 244.9 HYPOTHYROIDISM 05/12/2011 ELAINE HANLEY DO 244.9 HYPOTHYROIDISM 05/12/2011 FRANCESCO PHILLIPS MD 244.9 HYPOTHYROIDISM 05/12/2011 DAMIÁN STEEN APRN 244.9 HYPOTHYROIDISM 05/12/2011 WHITE DDS, SACHA J 244.9 HYPOTHYROIDISM 05/12/2011 FRANCESCO PHILLIPS MD 244.9 HYPOTHYROIDISM 05/12/2011 FRANCESCO PHILLIPS MD 244.9 HYPOTHYROIDISM 05/12/2011 STEEN SYRUP MIXER, DAMIÁN ODILON 244.9 HYPOTHYROIDISM 05/12/2011 ALEX SYRUP MIXER, ANASTASIYA 244.9 HYPOTHYROIDISM 05/12/2011 FRANCESCO PHILLIPS MD 244.9 HYPOTHYROIDISM 05/12/2011 ALEX SYRUP MIXER, ANASTASIYA 244.9 HYPOTHYROIDISM 05/14/2011 ELAINE HANLEY DO F 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 05/14/2011 ELAINE HANLEY DO F 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 05/14/2011 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 05/14/2011 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 05/14/2011 ELAINE HANLEY DO F [...] FRANCESCO PHILLIPS MD 373.00 Blepharitis Unspecified 06/25/2011 DAYAN CLAYTON ELAINE F 373.00 Blepharitis Unspecified 06/25/2011 ALAN HA, FRANCESCO 373.00 Blepharitis Unspecified 06/25/2011 CELSA PETER, DAMIÁN DONALD 373.00 Blepharitis Unspecified 06/25/2011 SACHA ORTEGA DDS 373.00 Blepharitis Unspecified 06/25/2011 ALAN HA, FRANCESCO 373.00 Blepharitis Unspecified 06/25/2011 ALAN HA, FRANCESCO 373.00 Blepharitis Unspecified 06/25/2011 CELSA PETER, DAMIÁN DONALD 373.00 Blepharitis Unspecified 06/25/2011 ALEX PETER, ANASTASIYA 373.00 Blepharitis Unspecified 06/25/2011 ALAN HA, FRANCESCO 373.00 Blepharitis Unspecified 06/25/2011 ALEX PETER, ANASTASIYA 373.00 Blepharitis Unspecified 08/18/2011 ELAINE HANLEY DO [...] PF PSYCHIC FACTORS MED COND 08/18/2011 FRANCESCO PHILILPS MD 316 PF PSYCHIC FACTORS MED COND [...] 12/02/2011 578.1 Hematochezia 12/02/2011 ELAINE HANLEY DO F 578.1 Hematochezia 12/02/2011 ELAINE HANLEY DO F 578.1 Hematochezia 12/02/2011 578.1 Hematochezia 12/02/2011 578.1 Hematochezia 12/02/2011 578.1 Hematochezia 12/02/2011 FRANCESCO PHILLIPS MD 578.1 Hematochezia 12/02/2011 ELAINE HANLEY DO 578.1 Hematochezia 12/02/2011 FRANCESCO PHILLIPS MD 578.1 Hematochezia 12/02/2011 DAMIÁN STEEN APRN 578.1 Hematochezia 12/02/2011 SACHA ORTEGA DDS 578.1 Hematochezia 12/02/2011 FRANCESCO PHILLIPS MD 578.1 [...] Nonspecific Abnormal Findings In Stool Contents 03/13/2012 WERDER DO, ELAINE F V16.0 Family History Of Malignant Neoplasm Of Gastrointestinal Tract 03/13/2012 792.1 Nonspecific Abnormal Findings In Stool Contents 03/13/2012 V16.0 Family History Of Malignant Neoplasm Of Gastrointestinal Tract 03/13/2012 792.1 Nonspecific Abnormal Findings In Stool Contents 03/13/2012 V16.0 Family History Of Malignant Neoplasm Of Gastrointestinal Tract 03/13/2012 ELAINE HANLEY DO 792.1 Nonspecific Abnormal Findings In Stool Contents 03/13/2012 ELAINE HANLEY DO F V16.0 Family History Of Malignant Neoplasm Of Gastrointestinal Tract 03/13/2012 ELAINE HANLEY DO F 792.1 Nonspecific Abnormal Findings In Stool Contents 03/13/2012 ELAINE HANLEY DO F V16.0 Family History Of Malignant Neoplasm Of [...] Of Gastrointestinal Tract 03/13/2012 CELSA PETER DAMIÁN ODILON 792.1 Nonspecific Abnormal Findings In Stool Contents 03/13/2012 CELSA PETER DAMIÁN ODILON V16.0 Family History Of Malignant Neoplasm Of [...] AN ANXIETY UNSPEC 06/13/2012 CELSA PETER DAMIÁN ODILON 300.00 AN ANXIETY UNSPEC 06/13/2012 SACHA ORTEGA DDS 300.00 AN ANXIETY UNSPEC 06/13/2012 FRANCESCO PHILLIPS MD 300.00 AN ANXIETY UNSPEC 06/13/2012 FRANCESCO PHILLIPS MD 300.00 AN ANXIETY UNSPEC 06/13/2012 STEEN BRITTANIDAMIÁN 300.00 AN ANXIETY UNSPEC 06/13/2012 ANASTASIYA JOHNSON APRN 300.00 AN ANXIETY UNSPEC 06/13/2012 FRANCESCO PHILLIPS MD 300.00 AN ANXIETY UNSPEC 06/13/2012 ANASTASIYA JOHNSON APRN 300.00 AN ANXIETY UNSPEC 01/26/2013 Ot 307.42 PERSISTENT INSOMNIA 10/14/2014 FRANCESCO PHILLIPS MD 848.9 UNSPECIFIED SITE OF SPRAIN AND STRAIN 10/14/2014 ANASTASIYA JOHNSON APRN 848.9 UNSPECIFIED SITE OF SPRAIN AND STRAIN 11/11/2015 Ot V72.84 12/09/2015 NEW, TOMY G. SAND CONDITIONER MACHINE-C Ot E03.9 12/09/2015 NEW, TOMY G. SAND CONDITIONER MACHINE-C Ot E78.5 12/09/2015 NEW, TOMY G. SAND CONDITIONER MACHINE-C Ot F32.9 12/09/2015 NEW, TOMY G. SAND CONDITIONER MACHINE-C Ot F41.9 12/09/2015 NEW, TOMY G. SAND CONDITIONER MACHINE-C Ot I13.10 12/09/2015 NEW, TOMY G. SAND CONDITIONER MACHINE-C Ot M19.90 12/09/2015 NEW, TOMY G. SAND CONDITIONER MACHINE-C Ot N18.3 12/09/2015 NEW, TOMY G. SAND CONDITIONER MACHINE-C Ot R80.9 12/11/2015 NEW, TOMY G. SAND CONDITIONER MACHINE-C Ot E03.9 12/11/2015 NEW, TOMY G. SAND CONDITIONER MACHINE-C Ot E78.5 12/11/2015 NEW, TOMY G. SAND CONDITIONER MACHINE-C Ot F32.9 12/11/2015 NEW, TOMY G. SAND CONDITIONER MACHINE-C Ot F41.9 12/11/2015 NEW, TOMY G. SAND CONDITIONER MACHINE-C Ot I13.10 12/11/2015 NEW, TOMY G. SAND CONDITIONER MACHINE-C Ot M19.90 12/11/2015 NEW, TOMY G. SAND CONDITIONER MACHINE-C Ot N18.3 12/11/2015 NEW, TOMY G. 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 08/23/2016 KEVIN MCCULLOUGH MD Ot Z79.82 LONGTERM (CURRENT) USE OF ASPIRIN 08/23/2016 KEVIN MCCULLOUGH MD, Ot Z79.899 OTHER NOZZLE AND SLEEVE WORKER (CURRENT) DRUG THERAPY 08/24/2016 KEVIN MCCULLOUGH MD, Ot I48.91 UNSPECIFIED ATRIAL FIBRILLATION 08/24/2016 KVEIN MCCULLOUGH MD, Ot J90 PLEURAL EFFUSION, 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 08/24/2016 KEVIN MCCULLOUGH MD Ot R06.02 SHORTNESS OF BREATH 08/24/2016 KEVIN MCCULLOUGH MD, Ot Z79.01 LONGTERM (CURRENT) USE OF 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 08/24/2016 KEVIN MCCULLOUGH MD, Ot Z79.82 LONGTERM (CURRENT) USE OF ASPIRIN 08/24/2016 KEVIN MCCULLOUGH MD, Ot Z79.899 OTHER LONGTERM (CURRENT) DRUG THERAPY 09/23/2016 JAN CRAIN MD Ot I48.1 PERSISTENT ATRIAL FIBRILLATION 09/23/2016 JAN CRAIN MD, Ot I48.1 PERSISTENT ATRIAL FIBRILLATION 09/24/2016 JAN CRAIN MD, Ot Z79.01 LONGTERM (CURRENT) USE OF 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 09/27/2016 JAN CRAIN MD, Ot I50.33 ACUTE ON CHRONIC DIASTOLIC (CONGESTIVE) 09/27/2016 JAN CRAIN MD, Ot 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 09/27/2016 Ot V72.84 [...] ON CHRONIC DIASTOLIC (CONGESTIVE) 09/27/2016 JAN CRAIN MD Ot 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 09/28/2016 JAN CRAIN MD Ot Z51.81 ENCOUNTER FOR THERAPEUTIC DRUG LEVEL MON 09/28/2016 BRAENN HA, JAN L Ot 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 09/28/2016 SULAIMAN TOMY ErnstBrian SAND CONDITIONER MACHINE-C Ot D50.9 IRON DEFICIENCY ANEMIA, UNSPECIFIED 09/28/2016 NEWTOMY SAND CONDITIONER MACHINE-C Ot D63.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 09/28/2016 NEW TOMY ErnstBrian SAND CONDITIONER MACHINE-C Ot N18.3 CHRONIC KIDNEY DISEASE, STAGE 3 (MODERAT 09/29/2016 NEW TOMY ErnstBrian SAND CONDITIONER MACHINE-C Ot D50.9 IRON DEFICIENCY ANEMIA, UNSPECIFIED 09/29/2016 NEWRONNIEIlya ErnstBrian SAND CONDITIONER MACHINE-C Ot D63.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 09/29/2016 NEWTOMY KleverBrian SAND CONDITIONER MACHINE-C Ot N18.3 CHRONIC KIDNEY DISEASE, STAGE 3 (MODERAT 10/01/2016 BREANN HA, JAN L Ot I48.91 UNSPECIFIED ATRIAL FIBRILLATION 10/01/2016 BREANN HA, JAN L Ot I50.9 HEART FAILURE, UNSPECIFIED 10/01/2016 BREANN HA, JAN L Ot Z79.02 LONGTERM (CURRENT) USE OF ANTITHROMBOTI 10/01/2016 BREANN HA, JAN L Ot Z79.899 OTHER NOZZLE AND SLEEVE WORKER (CURRENT) DRUG THERAPY 10/01/2016 TOMY HILARIO KleverBrian SAND CONDITIONER MACHINE-C Ot D50.9 IRON DEFICIENCY ANEMIA, UNSPECIFIED 10/01/2016 NEWRONNIEIlya ErnstBrian SAND CONDITIONER MACHINE-C Ot D63.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 10/01/2016 TOMY HILARIO KleverBrian SAND CONDITIONER MACHINE-C Ot N18.3 CHRONIC KIDNEY DISEASE, STAGE 3 (MODERAT 10/01/2016 OTHER, UNLISTED Ot Z51.81 ENCOUNTER FOR THERAPEUTIC DRUG LEVEL MON 10/01/2016 OTHER, UNLISTED Ot 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 10/04/2016 TOMY HILARIO SAND CONDITIONER MACHINE-C Ot D50.9 IRON DEFICIENCY ANEMIA, UNSPECIFIED 10/04/2016 NEWRONNIEIlya ErnstBrian SAND CONDITIONER MACHINE-C Ot D63.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 10/04/2016 NEWTOMY SAND CONDITIONER MACHINE-C Ot N18.3 CHRONIC KIDNEY DISEASE, STAGE 3 (MODERAT 10/06/2016 TOMY HILARIO SAND CONDITIONER MACHINE-C Ot D50.9 IRON DEFICIENCY ANEMIA, UNSPECIFIED 10/06/2016 TOMY HILARIO Ot D63.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 10/06/2016 TOMY HILARIO Ot N18.3 CHRONIC KIDNEY DISEASE, STAGE 3 (MODERAT 10/11/2016 JAN CRAIN MD Ot Z51.81 ENCOUNTER FOR THERAPEUTIC DRUG LEVEL MON 10/11/2016 JAN CRAIN MD Ot 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 10/12/2016 JAN CRAIN MD Ot Z51.81 ENCOUNTER FOR THERAPEUTIC DRUG LEVEL MON 10/12/2016 JAN CRAIN MD Ot 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 10/13/2016 JAN CRAIN MD Ot I48.1 PERSISTENT ATRIAL FIBRILLATION 10/14/2016 JAN CRAIN MD Ot Z79.01 LONGTERM (CURRENT) USE OF 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 10/14/2016 JAN CRAIN MD Ot Z51.81 ENCOUNTER FOR THERAPEUTIC DRUG LEVEL MON 10/14/2016 JAN CRAIN MD Ot Z79.01 LONGTERM (CURRENT) USE OF 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 10/15/2016 JAN CRAIN MD Ot Z51.81 ENCOUNTER FOR THERAPEUTIC DRUG LEVEL MON 10/15/2016 JAN CRAIN MD Ot Z79.01 LONGTERM (CURRENT) USE OF 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 10/21/2016 JAN CRAIN MD Ot I50.33 ACUTE ON CHRONIC DIASTOLIC (CONGESTIVE) 10/21/2016 JAN CRAIN MD Ot Z79.01 LONGTERM (CURRENT) USE OF 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 10/21/2016 JAN CRAIN MD Ot Z51.81 ENCOUNTER FOR THERAPEUTIC DRUG LEVEL MON 10/21/2016 JAN CRAIN MD Ot Z79.01 LONGTERM (CURRENT) USE OF 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 10/22/2016 JAN CRAIN MD Ot I48.91 UNSPECIFIED ATRIAL FIBRILLATION 10/22/2016 JAN CRAIN MD Ot I48.91 UNSPECIFIED ATRIAL FIBRILLATION 10/22/2016 JAN CRAIN MD Ot I50.9 HEART FAILURE, UNSPECIFIED 10/22/2016 JAN CRAIN MD Ot Z79.02 LONGTERM (CURRENT) USE OF ANTITHROMBOTI 10/22/2016 JAN CRAIN MD Ot Z79.899 OTHER NOZZLE AND SLEEVE WORKER (CURRENT) DRUG THERAPY 10/22/2016 OTHER, UNLISTED Ot Z51.81 ENCOUNTER FOR THERAPEUTIC DRUG LEVEL MON 10/22/2016 OTHER, UNLISTED Ot 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 10/22/2016 JAN CRAIN MD Ot I48.91 UNSPECIFIED ATRIAL FIBRILLATION 10/22/2016 JAN CRAIN MD L Ot 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 10/28/2016 JAN CRAIN MD L Ot Z51.81 ENCOUNTER FOR THERAPEUTIC DRUG LEVEL MON 10/28/2016 JAN CRAIN MD L Ot Z79.01 LONGTERM (CURRENT) USE OF 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 11/01/2016 JAN CRAIN MD L Ot Z51.81 ENCOUNTER FOR THERAPEUTIC DRUG LEVEL MON 11/01/2016 JAN CRAIN MD L Ot 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 11/01/2016 JAN CRAIN MD L Ot Z51.81 ENCOUNTER FOR THERAPEUTIC DRUG LEVEL MON 11/01/2016 JAN CRAIN MD L Ot 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 11/05/2016 JAN CRAIN MD L Ot Z51.81 ENCOUNTER FOR THERAPEUTIC DRUG LEVEL MON 11/05/2016 JAN CRAIN MD L Ot Z79.01 LONGTERM (CURRENT) USE OF 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 11/11/2016 JAN CRAIN MD Ot I48.91 UNSPECIFIED ATRIAL FIBRILLATION 11/11/2016 JAN CRAIN MD L Ot 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 11/18/2016 JAN CRAIN MD L Ot Z51.81 ENCOUNTER FOR THERAPEUTIC DRUG LEVEL MON 11/18/2016 JAN CRAIN MD L Ot Z79.01 LONGTERM (CURRENT) USE OF 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 12/20/2016 TOMY HILARIO NP-C Ot D50.9 IRON DEFICIENCY ANEMIA, UNSPECIFIED 12/20/2016 TOMY HILARIO SAND CONDITIONER MACHINE-C Ot D63.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 12/20/2016 TOMY HILARIO SAND CONDITIONER MACHINE-C Ot N18.3 CHRONIC KIDNEY DISEASE, STAGE 3 (MODERAT 12/23/2016 TOMY HILARIO SAND CONDITIONER MACHINE-C Ot D50.9 IRON DEFICIENCY ANEMIA, UNSPECIFIED 12/23/2016 TOMY HILARIO NP-C Ot D63.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 12/23/2016 NEW, TOMY Lou SAND CONDITIONER MACHINE-C Ot N18.3 CHRONIC KIDNEY DISEASE, STAGE 3 (MODERAT 12/26/2016 TOMY HILARIO SAND CONDITIONER MACHINE-C Ot D50.9 IRON DEFICIENCY ANEMIA, UNSPECIFIED 12/26/2016 TOMY HILARIO SAND CONDITIONER MACHINE-C Ot D63.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 12/26/2016 NEW, TOMY Lou SAND CONDITIONER MACHINE-C Ot N18.3 CHRONIC KIDNEY DISEASE, STAGE 3 [...] UNSP PLACE IN UNSP NON-INSTITUT (PRIVATE 11/09/2017 BIN KITCHEN MD Ot Z66 DO NOT RESUSCITATE 11/09/2017 BIN KITCHEN MD Ot Z79.01 LONGTERM (CURRENT) USE OF 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 11/09/2017 BIN KITCHEN [...] ABRASION OF LEFT ELBOW, INITIAL ENCOUNTE 11/09/2017 GAULT MD, BIN R Ot S72.002A FRACTURE OF UNSP PART OF NECK OF LEFT FE 11/09/2017 BIN KITCHEN MD Ot W18.39XA OTHER FALL ON SAME LEVEL, INITIAL ENCOUN 11/09/2017 BIN KITCHEN MD R Ot Y92.[address] [facility] 11/09/2017 BIN KITCHEN MD Ot Z66 DO NOT RESUSCITATE 11/09/2017 BIN KITCHEN MD Ot Z79.01 LONGTERM (CURRENT) USE OF 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 11/09/2017 BIN KITCHEN MD R Ot Z96.641 PRESENCE OF RIGHT ARTIFICIAL HIP [...] RESUSCITATE 11/09/2017 BIN KITCHEN MD Ot Z79.01 LONGTERM (CURRENT) USE OF 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 11/09/2017 BIN KITCHEN MD Ot Z96.641 PRESENCE OF RIGHT ARTIFICIAL HIP JOINT 11/16/2017 BIN KITCHEN MD Ot A41.9 SEPSIS, UNSPECIFIED ORGANISM 11/16/2017 BIN KITCHEN MD Ot D62 ACUTE POSTHEMORRHAGIC ANEMIA 11/16/2017 BIN KITCHEN MD Ot E83.51 HYPOCALCEMIA 11/16/2017 BIN KITCHEN MD Ot E87.1 HYPO-OSMOLALITY AND HYPONATREMIA 11/16/2017 BIN KITCHEN MD Ot F31.9 BIPOLAR DISORDER, UNSPECIFIED 11/16/2017 IMTIAZ HA, BIN [place] Ot F41.9 ANXIETY DISORDER, UNSPECIFIED 11/16/2017 BIN KITCHEN MD Ot I48.2 CHRONIC ATRIAL FIBRILLATION 11/16/2017 BIN KITCHEN MD Ot J18.9 PNEUMONIA, UNSPECIFIED ORGANISM 11/16/2017 BIN KITCHEN MD Ot J98.11 ATELECTASIS 11/16/2017 BIN KITCHEN MD Ot K44.9 DIAPHRAGMATIC HERNIA WITHOUT OBSTRUCTION 11/16/2017 IMTIAZ HA, BIN [place] Ot K59.00 CONSTIPATION, UNSPECIFIED 11/16/2017 BIN KITCHEN MD Ot M25.562 PAIN IN LEFT KNEE 11/16/2017 BIN KITCHEN MD Ot S50.312A ABRASION OF LEFT ELBOW, INITIAL ENCOUNTE 11/16/2017 BIN KITCHEN MD Ot S72.012A UNSP INTRACAPSULAR FRACTURE OF LEFT FEMU 11/16/2017 BIN KITCHEN MD Ot W18.39XA OTHER FALL ON SAME LEVEL, INITIAL ENCOUN 11/16/2017 BIN KITCHEN MD Ot Y92.[address] IN [facility]SP NON-INSTITUT (PRIVATE 11/16/2017 BIN KITCHEN MD Ot Z66 DO NOT RESUSCITATE 11/16/2017 BIN KITCHEN MD Ot 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 11/16/2017 BIN KITCHEN MD Ot Z96.641 PRESENCE OF RIGHT ARTIFICIAL HIP JOINT 11/21/2017 MEENA KESSLER DO Ot D64.9 ANEMIA, UNSPECIFIED 11/21/2017 MEENA KESSLER DO Ot E03.9 HYPOTHYROIDISM, UNSPECIFIED 11/21/2017 MEENA KESSLER DO Ot E83.51 HYPOCALCEMIA 11/21/2017 MEENA KESSLER DO, Ot F32.9 MAJOR DEPRESSIVE DISORDER, SINGLE EPISOD 11/21/2017 MEENA KESSLER DO, Ot F41.9 ANXIETY DISORDER, UNSPECIFIED 11/21/2017 MEENA KESSLER DO Ot I10 ESSENTIAL (PRIMARY) HYPERTENSION 11/21/2017 MEENA KESSLER DO, Ot I48.2 CHRONIC ATRIAL FIBRILLATION 11/21/2017 BARMEENA ANGELES DO Ot J18.9 PNEUMONIA, UNSPECIFIED ORGANISM 11/21/2017 BELLAMEENA Pires DO Ot M25.562 PAIN IN LEFT KNEE 11/21/2017 MEENA KESSLER DO Ot R53.1 WEAKNESS 11/21/2017 MEENA KESSLER DO Ot R53.81 OTHER MALAISE 11/21/2017 MEENA KESSLER DO Ot Z47.1 AFTERCARE FOLLOWING JOINT REPLACEMENT MCDONALD 11/21/2017 MEENA KESSLER DO Ot Z66 DO NOT RESUSCITATE 11/21/2017 MEENA KESSLER DO Ot Z79.01 LONGTERM (CURRENT) USE OF 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 11/21/2017 MEENA KESSLER DO Ot Z96.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 11/21/2017 MEENA KESSLER DO Ot D64.9 ANEMIA, UNSPECIFIED 11/21/2017 MEENA KESSLER DO Ot E03.9 HYPOTHYROIDISM, UNSPECIFIED 11/21/2017 BELLAMEENA Pires DO Ot E83.51 HYPOCALCEMIA 11/21/2017 MEENA KESSLER DO Ot F32.9 MAJOR DEPRESSIVE DISORDER, SINGLE EPISOD 11/21/2017 MEENA KESSLER DO Ot F41.9 ANXIETY DISORDER, UNSPECIFIED 11/21/2017 MEENA KESSLER DO Ot I10 ESSENTIAL (PRIMARY) HYPERTENSION 11/21/2017 MEENA KESSLER DO Ot I48.2 CHRONIC ATRIAL FIBRILLATION 11/21/2017 MEENA KESSLER DO, Ot J18.9 PNEUMONIA, UNSPECIFIED ORGANISM 11/21/2017 MEENA KESSLER DO Ot M25.562 PAIN IN LEFT KNEE 11/21/2017 MEENA KESSLER DO Ot R53.1 WEAKNESS 11/21/2017 MEENA KESSLER DO Ot R53.81 OTHER MALAISE 11/21/2017 MEENA KESSLER DO Ot Z47.1 AFTERCARE FOLLOWING JOINT REPLACEMENT MCDONALD 11/21/2017 MEENA KESSLER DO Ot Z66 DO NOT RESUSCITATE 11/21/2017 CHECO CLAYTON MEENA Pires Ot 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 11/21/2017 CHECO CLAYTON MEENA Pires Ot Z96.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 11/26/2017 BI REY MD E Ot E03.9 HYPOTHYROIDISM, UNSPECIFIED 11/26/2017 BI REY MD Ot F31.9 BIPOLAR DISORDER, UNSPECIFIED 11/26/2017 BI REY MD E Ot F41.9 ANXIETY DISORDER, UNSPECIFIED 11/26/2017 ROBER REY MDIC E Ot I48.91 UNSPECIFIED ATRIAL FIBRILLATION 11/26/2017 BI REY MD E Ot K59.09 OTHER CONSTIPATION 11/26/2017 BI REY MD E Ot S72.002D FX UNSP PART OF NK OF L FEMR, SUBS FOR C 11/26/2017 BI REY MD E Ot W19.XXXD UNSPECIFIED FALL, SUBSEQUENT ENCOUNTER 11/26/2017 BI REY MD E Ot Y92.[address] IN APARTMENT PLACE 11/26/2017 BI REY MD E Ot Z66 DO NOT RESUSCITATE 11/30/2017 BI REY MD E Ot E03.9 HYPOTHYROIDISM, UNSPECIFIED 11/30/2017 BI REY MD E Ot F31.9 BIPOLAR DISORDER, UNSPECIFIED 11/30/2017 BI REY MD E Ot F41.9 ANXIETY DISORDER, UNSPECIFIED 11/30/2017 BI REY MD E Ot I48.91 UNSPECIFIED ATRIAL FIBRILLATION 11/30/2017 ROBER REY MDIC E Ot K59.09 OTHER CONSTIPATION 11/30/2017 ROBER REY MDIC E Ot S72.002D FX UNSP PART OF NK OF L FEMR, SUBS FOR C 11/30/2017 BI REY MD E Ot W19.XXXD UNSPECIFIED FALL, SUBSEQUENT ENCOUNTER 11/30/2017 BI REY MD E Ot Y92.[address] IN APARTMENT PLACE 11/30/2017 BI REY MD E Ot Z66 DO NOT RESUSCITATE 12/02/2017 BI REY MD E Ot E03.9 HYPOTHYROIDISM, UNSPECIFIED 12/02/2017 BI REY MD E Ot F31.9 BIPOLAR DISORDER, UNSPECIFIED 12/02/2017 KRISSY HA BI E Ot F41.9 ANXIETY DISORDER, UNSPECIFIED 12/02/2017 KRISSY HA, BI E Ot I48.91 UNSPECIFIED ATRIAL FIBRILLATION 12/02/2017 KRISSY HA, BI E Ot K59.09 OTHER CONSTIPATION 12/02/2017 KRISSY HA, BI E Ot S72.002D FX UNSP PART OF NK OF L FEMR, SUBS FOR C 12/02/2017 KRISSY HA BI E Ot W19.XXXD UNSPECIFIED FALL, SUBSEQUENT ENCOUNTER 12/02/2017 KRISSY HA, BI E Ot Y92.[address] IN APARTMENT PLACE 12/02/2017 KRISSY HA BI E Ot Z66 DO NOT RESUSCITATE 12/02/2017 KRISSY HA BI E Ot E03.9 HYPOTHYROIDISM, UNSPECIFIED 12/02/2017 KRISSY HA BI E Ot F31.9 BIPOLAR DISORDER, UNSPECIFIED 12/02/2017 KRISSY HA BI E Ot F41.9 ANXIETY DISORDER, UNSPECIFIED 12/02/2017 KRISSY HA BI E Ot I48.91 UNSPECIFIED ATRIAL FIBRILLATION 12/02/2017 KRISSY HA BI E Ot K59.09 OTHER CONSTIPATION 12/02/2017 KRISSY HA, BI E Ot S72.002D FX UNSP PART OF NK OF L FEMR, SUBS FOR C 12/02/2017 KRISSY HA BI E Ot W19.XXXD UNSPECIFIED FALL, SUBSEQUENT ENCOUNTER 12/02/2017 KRISSY HA BI E Ot Y92.[address] IN APARTMENT PLACE 12/02/2017 KRISSY HA BI E Ot Z66 DO NOT RESUSCITATE 12/02/2017 KRISSY HA IB E Ot E03.9 HYPOTHYROIDISM, UNSPECIFIED 12/02/2017 KRISSY HA BI E Ot F31.9 BIPOLAR DISORDER, UNSPECIFIED 12/02/2017 KRISSY HA BI E Ot F41.9 ANXIETY DISORDER, UNSPECIFIED 12/02/2017 KRISSY HA, BI E Ot I48.91 UNSPECIFIED ATRIAL FIBRILLATION 12/02/2017 KRISSY HA, BI E Ot K59.09 OTHER CONSTIPATION 12/02/2017 KRISSY HA BI E Ot S72.002D FX UNSP PART OF NK OF L FEMR, SUBS FOR C 12/02/2017 KRISSY HA BI E Ot W19.XXXD UNSPECIFIED FALL, SUBSEQUENT ENCOUNTER 12/02/2017 KRISSY HA BI E Ot Y92.[address] IN APARTMENT PLACE 12/02/2017 KRISSY HA BI E Ot Z66 DO NOT RESUSCITATE 12/02/2017 ROBER REY MDIC E Ot E03.9 HYPOTHYROIDISM, UNSPECIFIED 12/02/2017 BI REY MD E Ot F31.9 BIPOLAR DISORDER, UNSPECIFIED 12/02/2017 ROBER REY MDIC E Ot F41.9 ANXIETY DISORDER, UNSPECIFIED 12/02/2017 KRISSY HA BI E Ot I48.91 UNSPECIFIED ATRIAL FIBRILLATION 12/02/2017 KRISSY HA BI E Ot K59.09 OTHER CONSTIPATION 12/02/2017 KRISSY HA BI E Ot S72.002D FX UNSP PART OF NK OF L FEMR, SUBS FOR C 12/02/2017 BI REY MD E Ot W19.XXXD UNSPECIFIED FALL, SUBSEQUENT ENCOUNTER 12/02/2017 BI REY MD E Ot Y92.[address] IN APARTMENT PLACE 12/02/2017 BI ERY MD E Ot Z66 DO NOT RESUSCITATE 12/03/2017 BI REY MD E Ot E03.9 HYPOTHYROIDISM, UNSPECIFIED 12/03/2017 BI REY MD E Ot F31.9 BIPOLAR DISORDER, UNSPECIFIED 12/03/2017 BI REY MD E Ot F41.9 ANXIETY DISORDER, UNSPECIFIED 12/03/2017 KRISSY HA BI E Ot I48.91 UNSPECIFIED ATRIAL FIBRILLATION 12/03/2017 ROBER REY MDIC E Ot K59.09 OTHER CONSTIPATION 12/03/2017 ROBRE REY MDIC E Ot S72.002D FX UNSP PART OF NK OF L FEMR, SUBS FOR C 12/03/2017 KRISSY HA BI E Ot W19.XXXD UNSPECIFIED FALL, SUBSEQUENT ENCOUNTER 12/03/2017 BI REY MD E Ot Y92.[address] IN APARTMENT PLACE 12/03/2017 KRISSY HA BI E Ot Z66 DO NOT RESUSCITATE 12/03/2017 BI REY MD E Ot E03.9 HYPOTHYROIDISM, UNSPECIFIED 12/03/2017 BI REY MD E Ot F31.9 BIPOLAR DISORDER, UNSPECIFIED 12/03/2017 KRISSY HA BI E Ot F41.9 ANXIETY DISORDER, UNSPECIFIED 12/03/2017 BI REY MD Ot I48.91 UNSPECIFIED ATRIAL FIBRILLATION 12/03/2017 BI REY MD Ot K59.09 OTHER CONSTIPATION 12/03/2017 BI REY MD Ot S72.002D FX UNSP PART OF NK OF L FEMR, SUBS FOR C 12/03/2017 BI REY MD Ot W19.XXXD UNSPECIFIED FALL, SUBSEQUENT ENCOUNTER 12/03/2017 BI REY MD Ot Y92.[address] IN APARTMENT PLACE 12/03/2017 BI REY MD Ot Z66 DO NOT RESUSCITATE 12/05/2017 KEVIN CLAYTON GUERO Ernst Ot F31.9 BIPOLAR DISORDER, UNSPECIFIED 12/05/2017 KEVIN CLAYTON GUERO Ernst Ot F41.9 ANXIETY DISORDER, UNSPECIFIED 12/05/2017 KEVIN CLAYTON GUERO G Ot I48.91 UNSPECIFIED ATRIAL FIBRILLATION 12/05/2017 KEVIN CLAYTON GUERO Ernst Ot S52.552A OTH EXTRARTIC FRACTURE OF LOWER END OF L 12/05/2017 KEVIN CLAYTON GUERO G Ot W19.XXXA UNSPECIFIED FALL, INITIAL ENCOUNTER 12/05/2017 KEVIN CLAYTON GUERO G Ot Y92.230 PATIENT ROOM IN HOSPITAL PLACE 12/05/2017 KEVIN CLAYTON GUERO Ernst Ot Z66 DO NOT RESUSCITATE 12/05/2017 KEVIN CLAYTON GUERO G Ot Z96.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 12/05/2017 BI REY MD Ot E03.9 HYPOTHYROIDISM, UNSPECIFIED 12/05/2017 BI REY MD Ot F31.9 BIPOLAR DISORDER, UNSPECIFIED 12/05/2017 BI REY MD Ot F41.9 ANXIETY DISORDER, UNSPECIFIED 12/05/2017 BI REY MD Ot I48.91 UNSPECIFIED ATRIAL FIBRILLATION 12/05/2017 BI REY MD Ot K59.09 OTHER CONSTIPATION 12/05/2017 BI REY MD Ot S72.002D FX UNSP PART OF NK OF L FEMR, SUBS FOR C 12/05/2017 BI REY MD Ot W19.XXXD UNSPECIFIED FALL, SUBSEQUENT ENCOUNTER 12/05/2017 BI REY MD Ot Y92.[address] IN APARTMENT PLACE 12/05/2017 REY MD, BI E Ot Z66 DO NOT RESUSCITATE 12/05/2017 KRISSY HA BI E Ot E03.9 HYPOTHYROIDISM, UNSPECIFIED 12/05/2017 KRISSY HA BI E Ot F31.9 BIPOLAR DISORDER, UNSPECIFIED 12/05/2017 KRISSY HA BI E Ot F41.9 ANXIETY DISORDER, UNSPECIFIED 12/05/2017 KRISSY HA BI E Ot I48.91 UNSPECIFIED ATRIAL FIBRILLATION 12/05/2017 KRISSY HA BI E Ot K59.09 OTHER CONSTIPATION 12/05/2017 KRISSY HA BI E Ot S72.002D FX UNSP PART OF NK OF L FEMR, SUBS FOR C 12/05/2017 KRISSY HA BI E Ot W19.XXXD UNSPECIFIED FALL, SUBSEQUENT ENCOUNTER 12/05/2017 KRISSY HA BI E Ot Y92.[address] IN APARTMENT PLACE 12/05/2017 BI REY MD E Ot Z66 DO NOT RESUSCITATE 12/07/2017 BI REY MD E Ot E03.9 HYPOTHYROIDISM, UNSPECIFIED 12/07/2017 ROBER REY MDIC E Ot F31.9 BIPOLAR DISORDER, UNSPECIFIED 12/07/2017 KRISSY HA BI E Ot F41.9 ANXIETY DISORDER, UNSPECIFIED 12/07/2017 KRISSY HA BI E Ot I48.91 UNSPECIFIED ATRIAL FIBRILLATION 12/07/2017 KRISSY HA BI E Ot K59.09 OTHER CONSTIPATION 12/07/2017 KRISSY HA BI E Ot S72.002D FX UNSP PART OF NK OF L FEMR, SUBS FOR C 12/07/2017 KRISSY HA BI E Ot W19.XXXD UNSPECIFIED FALL, SUBSEQUENT ENCOUNTER 12/07/2017 KRISSY HA BI E Ot Y92.[address] IN APARTMENT PLACE 12/07/2017 KRISSY HA BI E Ot Z66 DO NOT RESUSCITATE 12/07/2017 KRISSY HA BI E Ot E03.9 HYPOTHYROIDISM, UNSPECIFIED 12/07/2017 KRISSY HA BI E Ot F31.9 BIPOLAR DISORDER, UNSPECIFIED 12/07/2017 KRISSY HA BI E Ot F41.9 ANXIETY DISORDER, UNSPECIFIED 12/07/2017 KRISSY HA BI E Ot I48.91 UNSPECIFIED ATRIAL FIBRILLATION 12/07/2017 KRISSY HA BI E Ot K59.09 OTHER CONSTIPATION 12/07/2017 KRISSY HA BI E Ot S72.002D FX UNSP PART OF NK OF L FEMR, SUBS FOR C 12/07/2017 BI REY MD E Ot W19.XXXD UNSPECIFIED FALL, SUBSEQUENT ENCOUNTER 12/07/2017 BI REY MD E Ot Y92.[address] IN APARTMENT PLACE 12/07/2017 BI REY MD E Ot Z66 DO NOT RESUSCITATE 12/10/2017 BI REY MD E Ot E03.9 HYPOTHYROIDISM, UNSPECIFIED 12/10/2017 BI REY MD E Ot F31.9 BIPOLAR DISORDER, UNSPECIFIED 12/10/2017 BI REY MD E Ot F41.9 ANXIETY DISORDER, UNSPECIFIED 12/10/2017 KRISSY HA BI E Ot I48.91 UNSPECIFIED ATRIAL FIBRILLATION 12/10/2017 KRISSY HA BI E Ot K59.09 OTHER CONSTIPATION 12/10/2017 KRISSY HA BI E Ot R07.81 PLEURODYNIA 12/10/2017 BI REY MD E Ot S52.502A UNSP FRACTURE OF THE LOWER END OF LEFT R 12/10/2017 BI REY MD E Ot S72.002D FX UNSP PART OF NK OF L FEMR, SUBS FOR C 12/10/2017 BI REY MD E Ot S82.002D UNSP FRACTURE OF LEFT PATELLA, SUBS FOR 12/10/2017 BI REY MD E Ot W19.XXXD UNSPECIFIED FALL, SUBSEQUENT ENCOUNTER 12/10/2017 BI REY MD E Ot Y92.[address] IN APARTMENT PLACE 12/10/2017 BI REY MD E Ot Y92.[address] IN HOSPITAL PLACE 12/10/2017 KRISSY HA BI E Ot Z66 DO NOT RESUSCITATE 09/26/2018 BI REY MD E Ot E03.9 HYPOTHYROIDISM, UNSPECIFIED 09/26/2018 ROBER REY MDIC E Ot F31.9 BIPOLAR DISORDER, UNSPECIFIED 09/26/2018 KRISSY HA BI E Ot F41.9 ANXIETY DISORDER, UNSPECIFIED 09/26/2018 KRISSY HA BI E Ot I48.91 UNSPECIFIED ATRIAL FIBRILLATION 09/26/2018 KRISSY HA BI E Ot K59.09 OTHER CONSTIPATION 09/26/2018 BI REY MD E Ot R07.81 PLEURODYNIA 09/26/2018 BI REY MD E Ot S52.502A UNSP FRACTURE OF THE LOWER END OF LEFT R 09/26/2018 BI REY MD E Ot S72.002D FX UNSP PART OF NK OF L FEMR, SUBS FOR C 09/26/2018 BI REY MD E Ot S82.002D UNSP FRACTURE OF LEFT PATELLA, SUBS FOR 09/26/2018 BI REY MD E Ot W19.XXXD UNSPECIFIED FALL, SUBSEQUENT ENCOUNTER 09/26/2018 BI REY MD E Ot Y92.[address] IN APARTMENT PLACE 09/26/2018 BI REY MD E Ot Y92.[address] IN H[facility]ITAL PLACE 09/26/2018 BI REY MD E Ot Z66 DO NOT RESUSCITATE 09/26/2018 BI REY MD Ot E03.9 HYPOTHYROIDISM, UNSPECIFIED 09/26/2018 BI REY MD E Ot F31.9 BIPOLAR DISORDER, UNSPECIFIED 09/26/2018 BI REY MD E Ot F41.9 ANXIETY DISORDER, UNSPECIFIED 09/26/2018 BI REY MD E Ot I48.91 UNSPECIFIED ATRIAL FIBRILLATION 09/26/2018 BI REY MD E Ot K59.09 OTHER CONSTIPATION 09/26/2018 BI REY MD E Ot R07.81 PLEURODYNIA 09/26/2018 BI REY MD E Ot S52.502A UNSP FRACTURE OF THE LOWER END OF LEFT R 09/26/2018 BI REY MD E Ot S72.002D FX UNSP PART OF NK OF L FEMR, SUBS FOR C 09/26/2018 BI REY MD E Ot S82.002D UNSP FRACTURE OF LEFT PATELLA, SUBS FOR 09/26/2018 BI REY MD E Ot W19.XXXD UNSPECIFIED FALL, SUBSEQUENT ENCOUNTER 09/26/2018 BI REY MD E Ot Y92.[address] IN APARTMENT PLACE 09/26/2018 BI REY MD E Ot Y92.[address] IN HOSPITAL PLACE 09/26/2018 BI REY MD E Ot Z66 DO NOT RESUSCITATE 10/03/2018 NEW, TOMY G. 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, W S 10/03/2018 TOMY HILARIO SAND CONDITIONER MACHINE-C Ot M19.90 UNSPECIFIED OSTEOARTHRITIS, UNSPECIFIED 10/03/2018 TOMY HILARIO SAND CONDITIONER MACHINE-C Ot N18.3 CHRONIC KIDNEY DISEASE, STAGE 3 (MODERAT 10/03/2018 TOMY HILARIO SAND CONDITIONER MACHINE-C Ot R80.9 PROTEINURIA, UNSPECIFIED 10/03/2018 JAN CRAIN MD Ot I48.1 PERSISTENT ATRIAL FIBRILLATION 10/03/2018 JAN CRAIN MD Ot I50.33 ACUTE ON CHRONIC DIASTOLIC (CONGESTIVE) 10/03/2018 JAN CRAIN MD Ot 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 10/03/2018 JAN CRAIN MD Ot Z51.81 ENCOUNTER FOR THERAPEUTIC DRUG LEVEL MON 10/03/2018 JAN CRAIN MD Ot Z79.01 LONGTERM (CURRENT) USE OF 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 10/03/2018 JAN CRAIN MD Ot I48.91 UNSPECIFIED ATRIAL FIBRILLATION 10/03/2018 JAN CRAIN MD Ot I50.9 HEART FAILURE, UNSPECIFIED 10/03/2018 JAN CRAIN MD Ot Z79.02 NOZZLE AND SLEEVE WORKER (CURRENT) USE OF ANTITHROMBOTI 10/03/2018 JAN CRAIN MD Ot Z79.899 OTHER NOZZLE AND SLEEVE WORKER (CURRENT) DRUG THERAPY 10/03/2018 OTHER, UNLISTED Ot Z51.81 ENCOUNTER FOR THERAPEUTIC DRUG LEVEL MON 10/03/2018 OTHER, UNLISTED Ot 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 10/03/2018 JAN CRAIN MD Ot Z51.81 ENCOUNTER FOR THERAPEUTIC DRUG LEVEL MON 10/03/2018 JAN CRAIN MD Ot 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 10/03/2018 JAN CRAIN MD Ot Z51.81 ENCOUNTER FOR THERAPEUTIC DRUG LEVEL MON 10/03/2018 JAN CRAIN MD L Ot 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 10/03/2018 JAN CRAIN MD Ot Z51.81 ENCOUNTER FOR THERAPEUTIC DRUG LEVEL MON 10/03/2018 JAN CRAIN MD Ot 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 10/03/2018 JAN CRAIN MD Ot I48.91 UNSPECIFIED ATRIAL FIBRILLATION 10/03/2018 JAN CRAIN MD Ot Z79.01 LONGTERM (CURRENT) USE OF 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 10/03/2018 JAN CRAIN MD Ot Z51.81 ENCOUNTER FOR THERAPEUTIC DRUG LEVEL MON 10/03/2018 JAN CRAIN MD Ot 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 10/03/2018 TOMY HILARIO SAND CONDITIONER MACHINE-C Ot D50.9 IRON DEFICIENCY ANEMIA, UNSPECIFIED 10/03/2018 TOMY HILARIO NP-C Ot D63.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 10/03/2018 TOMY HILARIO NP-C Ot N18.3 CHRONIC KIDNEY DISEASE, STAGE 3 (MODERAT 01/11/2019 TOMY HILARIO NP-C Ot E03.9 HYPOTHYROIDISM, UNSPECIFIED 01/11/2019 TOMY HILARIO NP-C Ot E78.5 HYPERLIPIDEMIA, UNSPECIFIED 01/11/2019 TOMY HILARIO NP-C Ot F32.9 MAJOR DEPRESSIVE DISORDER, SINGLE EPISOD 01/11/2019 TOMY HILARIO NP-C Ot F41.9 ANXIETY DISORDER, UNSPECIFIED 01/11/2019 TOMY HILARIO SAND CONDITIONER MACHINE-C Ot 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, W S 01/11/2019 TOMY HILARIO SAND CONDITIONER MACHINE-C Ot M19.90 UNSPECIFIED OSTEOARTHRITIS, UNSPECIFIED 01/11/2019 TOMY HILARIO SAND CONDITIONER MACHINE-C Ot N18.3 CHRONIC KIDNEY DISEASE, STAGE 3 (MODERAT 01/11/2019 TOMY HILARIO NP-C Ot R80.9 PROTEINURIA, UNSPECIFIED 01/11/2019 JAN CRAIN MD Ot I48.1 PERSISTENT ATRIAL FIBRILLATION 01/11/2019 CRAIN MD, JAN L Ot I50.33 ACUTE ON CHRONIC DIASTOLIC (CONGESTIVE) 01/11/2019 JAN CRAIN MD L Ot 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 01/11/2019 JAN CRAIN MD L Ot Z51.81 ENCOUNTER FOR THERAPEUTIC DRUG LEVEL MON 01/11/2019 JAN CRAIN MD L Ot Z79.01 LONGTERM (CURRENT) USE OF 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 01/11/2019 JAN CRAIN MD Ot I48.91 UNSPECIFIED ATRIAL FIBRILLATION 01/11/2019 JAN CRAIN MD Ot I50.9 HEART FAILURE, UNSPECIFIED 01/11/2019 JAN CRAIN MD Ot Z79.02 LONGTERM (CURRENT) USE OF ANTITHROMBOTI 01/11/2019 JAN CRAIN MD L Ot Z79.899 OTHER LONGTERM (CURRENT) DRUG THERAPY 01/11/2019 OTHER, UNLISTED Ot Z51.81 ENCOUNTER FOR THERAPEUTIC DRUG LEVEL MON 01/11/2019 OTHER, UNLISTED Ot Z79.01 LONGTERM (CURRENT) USE OF 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 01/11/2019 JAN CRAIN MD L Ot Z51.81 ENCOUNTER FOR THERAPEUTIC DRUG LEVEL MON 01/11/2019 JAN CRAIN MD Ot Z79.01 LONGTERM (CURRENT) USE OF 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 01/11/2019 JAN CRAIN MD Ot Z51.81 ENCOUNTER FOR THERAPEUTIC DRUG LEVEL MON 01/11/2019 JAN CRAIN MD L Ot Z79.01 LONGTERM (CURRENT) USE OF 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 01/11/2019 JAN CRAIN MD L Ot Z51.81 ENCOUNTER FOR THERAPEUTIC DRUG LEVEL MON 01/11/2019 JAN CRAIN MD L Ot Z79.01 LONGTERM (CURRENT) USE OF 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 01/11/2019 JAN CRAIN MD L Ot I48.91 UNSPECIFIED ATRIAL FIBRILLATION 01/11/2019 JAN CRAIN MD L Ot 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 01/11/2019 JAN CRAIN MD L Ot Z51.81 ENCOUNTER FOR THERAPEUTIC DRUG LEVEL MON 01/11/2019 JAN CRAIN MD L Ot 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 01/11/2019 TOMY HILARIO NP-Cristobal Ot D50.9 IRON DEFICIENCY ANEMIA, UNSPECIFIED 01/11/2019 NEW, TOMY G. 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, W S 01/18/2019 NEW, TOMY ErnstBrian SAND CONDITIONER MACHINE-C Ot M19.90 UNSPECIFIED OSTEOARTHRITIS, UNSPECIFIED 01/18/2019 NEW, TOMY Lou SAND CONDITIONER MACHINE-C Ot N18.3 CHRONIC KIDNEY DISEASE, STAGE 3 (MODERAT 01/18/2019 NEW, TOMY ErnstBrian SAND CONDITIONER MACHINE-C Ot R80.9 PROTEINURIA, UNSPECIFIED 01/18/2019 JAN CRAIN MD Ot I48.1 PERSISTENT ATRIAL FIBRILLATION 01/18/2019 JAN CRAIN MD Ot I50.33 ACUTE ON CHRONIC DIASTOLIC (CONGESTIVE) 01/18/2019 JAN CRAIN MD Ot Z79.01 LONGTERM (CURRENT) USE OF 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 01/18/2019 JAN CRAIN MD Ot Z51.81 ENCOUNTER FOR THERAPEUTIC DRUG LEVEL MON 01/18/2019 JAN CRAIN MD Ot Z79.01 LONGTERM (CURRENT) USE OF 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 01/18/2019 JAN CRAIN MD Ot I48.91 UNSPECIFIED ATRIAL FIBRILLATION 01/18/2019 JAN CRAIN MD Ot I50.9 HEART FAILURE, UNSPECIFIED 01/18/2019 JAN CRAIN MD Ot Z79.02 NOZZLE AND SLEEVE WORKER (CURRENT) USE OF ANTITHROMBOTI 01/18/2019 JAN CRAIN MD Ot Z79.899 OTHER LONGTERM (CURRENT) DRUG THERAPY 01/18/2019 OTHER, UNLISTED Ot Z51.81 ENCOUNTER FOR THERAPEUTIC DRUG LEVEL MON 01/18/2019 OTHER, UNLISTED Ot 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 01/18/2019 JAN CRAIN MD L Ot Z51.81 ENCOUNTER FOR THERAPEUTIC DRUG LEVEL MON 01/18/2019 JAN CRAIN MD L Ot 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 01/18/2019 JAN CRAIN MD L Ot Z51.81 ENCOUNTER FOR THERAPEUTIC DRUG LEVEL MON 01/18/2019 JAN CRAIN MD L Ot Z79.01 LONGTERM (CURRENT) USE OF 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 01/18/2019 JAN CRAIN MD L Ot Z51.81 ENCOUNTER FOR THERAPEUTIC DRUG LEVEL MON 01/18/2019 JAN CRAIN MD L Ot 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 01/18/2019 JAN CRAIN MD L Ot I48.91 UNSPECIFIED ATRIAL FIBRILLATION 01/18/2019 JAN CRAIN MD L Ot Z79.01 LONGTERM (CURRENT) USE OF 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 01/18/2019 AJN CRAIN MD L Ot Z51.81 ENCOUNTER FOR THERAPEUTIC DRUG LEVEL MON 01/18/2019 JAN CRAIN MD L Ot Z79.01 LONGTERM (CURRENT) USE OF 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 01/18/2019 TOMY HILARIO SAND CONDITIONER MACHINE-C Ot D50.9 IRON DEFICIENCY ANEMIA, UNSPECIFIED 01/18/2019 NEWTOMY SAND CONDITIONER MACHINE-C Ot D63.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 01/18/2019 TOMY HILARIO SAND CONDITIONER MACHINE-C Ot N18.3 CHRONIC KIDNEY DISEASE, STAGE 3 (MODERAT 01/22/2019 TOMY HILARIO SAND CONDITIONER MACHINE-C Ot D50.9 IRON DEFICIENCY ANEMIA, UNSPECIFIED 01/22/2019 TOMY HILARIO SAND CONDITIONER MACHINE-C Ot D63.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 01/22/2019 NEWTOMY SAND CONDITIONER MACHINE-C Ot N18.3 CHRONIC KIDNEY DISEASE, STAGE 3 (MODERAT 01/22/2019 NEWTOMY SAND CONDITIONER MACHINE-C Ot D50.9 IRON DEFICIENCY ANEMIA, UNSPECIFIED 01/22/2019 NEWTOMY GBrian SAND CONDITIONER MACHINE-C Ot D63.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 01/22/2019 NEWTOMY SAND CONDITIONER MACHINE-C Ot N18.3 CHRONIC KIDNEY DISEASE, STAGE 3 (MODERAT Procedures Code [place] [address] PSYCH IND W/MED CK 20 09/13/2012 79958 ROUTINE VENIPUNCTURE 11/10/2012 39628 QUANTITATIVE ASSAY DRUG 11/23/2012 30680 SLEEP STUDY 01/03/2013 52014 PSYCH DIAGNOSTIC EVALUATION 03/15/2013 25153 ROUTINE VENIPUNCTURE 05/18/2013 17596 CBC 05/18/2013 77837 CMP 05/18/2013 55488 LIPID PANEL 05/18/2013 [id number] GFR CALC (RESULT ONLY) 05/18/2013 05506 TSH 05/18/2013 98757 ROUTINE VENIPUNCTURE 05/22/2014 65010 CBC 05/22/2014 1519843 GFR CALC (RESULT ONLY) 05/22/2014 98483 CMP 05/22/2014 97228 LIPID PANEL 05/22/2014 32700 TSH 05/22/2014 [id number] REPLACE L HIP JT, FEMORAL W METAL, UNCEM 11/10/2017 [id number] INSERTION OF INT FIX INTO L RADIUS, OPEN 12/03/2017 [id number] REPOSITION LEFT RADIUS WITH INT FIX, OPE 12/03/2017 Results Test Result Range Complete blood count [...] 102 mmol/L 98-107 Carbon dioxide 23 mmol/L -32 Serum or plasma anion gap [...] ABO+Rh group AP NRG Transfusion band number [id number] NRG Blood group antibody screen NEGATIVE [facility] Methicillin resistant Staphylococcus aureus (MRSA) screening culture - 20:00 Methicillin resistant Staphylococcus aureus (MRSA) screening culture NEG [facility] Complete blood count (CBC) with automated white [...] Automated blood platelet mean volume measurement 10.5 [z_us] 7.4-10.4 Complete blood count (CBC) with automated white blood cell (WBC) differential - 11/14/17 05:15 Blood leukocytes automated count (number/volume) 11.2 10*3/uL 4.3-11.0 Blood erythrocytes automated count (number/volume) 2.78 10*6/uL 4.35-5.85 Venous blood hemoglobin measurement (mass/volume) 8.9 g/dL 11.5-16.0 Blood hematocrit (volume fraction) 26 % 35-52 Automated erythrocyte mean corpuscular volume 94 [[facility]_us] 80-99 Automated erythrocyte mean corpuscular hemoglobin (mass per erythrocyte) 32 pg 25-34 Automated erythrocyte mean corpuscular hemoglobin concentration measurement ( mass/volume) 34 g/dL 32-36 Automated erythrocyte distribution width ratio 12.3 % 10.0-14.5 Automated blood platelet count (count/volume) 199 10*3/uL 130-400 Automated blood platelet mean volume measurement 10.5 [[address] [facility]_us] 7.4-10.4 Automated blood neutrophils/100 leukocytes 67 % [...] 0.0 10*3/uL 0.0-0.1 THYROID STIMULATING HORMONE - 01/22/18 11:35 THYROID STIMULATING HORMONE 3.83 u[iU]/mL 0.35-4.94 [...] NRG RED CELLS LEUKO REDUCED AS1 - 01/25/18 12:30 RED CELLS LEUKO REDUCED AS1 TRANSFUSED 11/17/17 1808 NRG Blood type T Indirect antibody screen panel - 11/17/17 12:30 ABO+Rh group AP NRG Transfusion band number [id number] NRG Blood group antibody screen NEGATIVE NRG [...] 106 mmol/L 98-107 Carbon dioxide 23 mmol/L -32 Serum or plasma anion gap [...] blood basophil count (count/volume) 0.0 10*3/uL 0.0-0.1 CULTURE, URINE - 03/13/18 12:19 CULTURE, URINE, ROUTINE SEE NOTE NRG BNP - 05/25/18 09:19 B TYPE NATRIURETIC PEPTIDE (BNP) 143 pg/mL <100 Methicillin resistant Staphylococcus aureus (MRSA) screening culture - 10:50 Methicillin resistant Staphylococcus aureus (MRSA) screening culture [facility] Complete blood count (CBC) with automated white blood cell (WBC) differential - 01/22/19 10:55 Blood leukocytes automated count (number/volume) 6.6 10*3/uL 4.3-11.0 Blood erythrocytes automated count (number/volume) 3.98 10*6/uL 4.35-5.85 Venous blood hemoglobin measurement (mass/volume) 13.2 g/dL 11.5-16.0 Blood hematocrit (volume fraction) 40 % 35-52 Automated erythrocyte mean corpuscular volume 102 [foz_us] 80-99 Automated erythrocyte mean corpuscular hemoglobin (mass per erythrocyte) 33 pg 25-34 Automated erythrocyte mean corpuscular hemoglobin concentration measurement ( mass/volume) 33 g/dL 32-36 Automated erythrocyte distribution width ratio 12.3 % 10.0-14.5 Automated blood platelet count (count/volume) 168 10*3/uL 130-400 Automated blood platelet mean volume measurement 9.7 [foz_us] 7.4-10.4 Automated blood neutrophils/100 leukocytes 53 % 42-75 Automated blood lymphocytes/100 leukocytes 33 % 12-44 Blood monocytes/100 leukocytes 12 % 0-12 Automated blood eosinophils/100 leukocytes 2 % 0-10 Automated blood basophils/100 leukocytes 1 % 0-10 Blood neutrophils automated count (number/volume) 3.5 10*3 1.8-7.8 Blood lymphocytes automated count (number/volume) 2.2 10*3 1.0-4.0 Blood monocytes automated count (number/volume) 0.8 10*3 0.0-1.0 Automated eosinophil count 0.2 10*3/uL 0.0-0.3 Automated blood basophil count (count/volume) 0.0 10*3/uL 0.0-0.1 Whole blood basic metabolic panel - 01/22/19 10:55 Serum or plasma sodium measurement (moles/volume) 140 mmol/L 135-145 Serum or plasma potassium measurement (moles/volume) 4.9 mmol/L 3.6-5.0 Serum or plasma chloride measurement (moles/volume) 104 mmol/L 98-107 Carbon dioxide 25 mmol/L 21-32 Serum or plasma anion gap determination (moles/volume) 11 mmol/L 5-14 Serum or plasma urea nitrogen measurement (mass/volume) 15 mg/dL 7-18 Serum or plasma creatinine measurement (mass/volume) 1.20 mg/dL 0.60-1.30 Serum or plasma urea nitrogen/creatinine mass ratio 13 NRG Serum or plasma creatinine measurement with calculation of estimated glomerular filtration rate 44 NRG Serum or plasma glucose measurement (mass/volume) 67 mg/dL 70-105 Serum or plasma calcium measurement (mass/volume) 10.3 mg/dL 8.5-10.1 Encounters ACCT No. Visit Date/Time Discharge Status Pt. Type Provider Facility Loc./Unit Complaint [id number] 11/15/2014 09:34:00 11/15/2014 23:59:59 CLS Outpatient ANASTASIYA JOHNSON APRN [id number] 10/14/2014 13:26:00 10/14/2014 23:59:59 CLS Outpatient FRANCESCO PHILLIPS MD [id number] 09/05/2014 10:15:00 09/05/2014 23:59:59 CLS Outpatient ANASTASIYA JOHNSON APRN [id number] 05/30/2014 11:07:00 05/30/2014 23:59:59 CLS Outpatient CELSA PETER DAMIÁN DONALD [id number] 05/22/2014 09:07:00 05/22/2014 23:59:59 CLS Outpatient FRANCESCO PHILLIPS MD [id number] 05/20/2014 09:34:00 05/20/2014 23:59:59 CLS Outpatient FRANCESCO PHILLIPS MD [id number] 03/27/2014 14:44:00 03/27/2014 23:59:59 CLS Outpatient SACHA ORTEGA DDS [id number] 12/27/2013 11:07:00 12/27/2013 23:59:59 CLS Outpatient CELSA PETER DAMIÁN DONALD [id number] 08/10/2013 09:47:00 08/10/2013 23:59:59 CLS Outpatient FRANCESCO PHILLIPS MD [id number] 07/17/2013 11:41:00 07/17/2013 23:59:59 CLS Outpatient ELAINE HANLEY DO [id number] 05/18/2013 08:23:00 05/18/2013 23:59:59 CLS Outpatient FRANCESCO PHILLIPS MD [id number] 01/03/2013 14:37:00 01/03/2013 23:59:59 CLS Outpatient ELAINE HANLEY DO [id number] 12/08/2012 11:12:00 12/08/2012 23:59:59 CLS Outpatient ELAINE HANLEY DO [id number] 11/10/2012 13:02:00 11/10/2012 23:59:59 CLS Outpatient [id number] 11/10/2012 13:02:00 11/10/2012 23:59:59 CLS Outpatient [id number] 09/11/2012 12:11:00 09/11/2012 23:59:59 CLS Outpatient ELAINE AHNLEY DO [id number] 07/12/2012 12:11:00 07/12/2012 23:59:59 CLS Outpatient ELAINE HANLEY DO [id number] 03/16/2013 14:38:00 Document Registration [id number] 03/14/2013 12:27:00 Document Registration [id number] 03/08/2013 16:07:00 Document Registration [email or web address] 10/13/2014 16:25:32 ACT Document Registration [id number] 01/22/2019 10:20:00 01/22/2019 12:52:00 DIS Outpatient GRACIELA HA, SARA [place] [facility] PREOP LEFT SHOULDER ROTATOR CUFF TEAR [id number] 11/21/2017 09:00:00 12/10/2017 09:45:00 DIS Inpatient BI REY MD [facility] IRF LEFT HIP FRACTURE [id number] 12/03/2017 07:00:00 12/05/2017 09:45:00 DIS Inpatient GUERO BROWN DO [facility] 4TH LEFT DISTAL RADIUS FRACTURE [id number] 11/16/2017 14:38:00 11/21/2017 09:25:00 DIS Inpatient MEEAN KESSLER DO [facility] 4TH SWB,LT HIP FX, FALL ON SAME LEVEL [id number] 11/09/2017 01:40:00 11/16/2017 14:37:00 DIS Inpatient BIN KITCHEN MD [facility] 4TH LEFT HIP FX, FALL ON SAME LEVEL [id number] 12/27/2016 00:09:00 12/27/2016 23:59:59 CLS Preadmit TOMY HILARIO [facility] IRON DEFICIENCY ANEMIA [id number] 10/06/2016 12:54:00 12/26/2016 00:01:00 DIS Outpatient TOMY HILARIO [facility] IRON DEFICIENCY ANEMIA [id number] 10/28/2016 15:41:00 10/28/2016 23:59:59 CLS Outpatient JAN CRAIN MD [facility] ANTICOAG THERAPY [id number] 10/21/2016 14:45:00 10/21/2016 23:59:59 CLS Outpatient JAN CRAIN MD [facility] ANTICOAG THERAPY, A FIB [id number] 10/14/2016 12:49:00 10/14/2016 23:59:59 CLS Outpatient JAN CRAIN MD [facility] ANTICOAG THERAPY [id number] 10/08/2016 15:01:00 10/08/2016 23:59:59 CLS Outpatient JAN CRAIN MD [facility] ANTICOAG THERAPY [id number] 10/05/2016 14:29:00 10/05/2016 23:59:59 CLS Outpatient JAN CRAIN MD [facility] ANTICOAG THERAPY [id number] 09/30/2016 13:00:00 09/30/2016 23:59:59 CLS Outpatient OTHER, UNLISTED [facility] ANTICOAG THERAPY [id number] 09/30/2016 10:14:00 09/30/2016 23:59:59 CLS Outpatient JAN CRAIN MD [facility] A FIB, CHF, DIURETIC THERAPY [id number] 09/27/2016 12:05:00 09/27/2016 23:59:59 CLS Outpatient JAN CRAIN MD [facility] 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 THERAPY [id number] 09/24/2016 11:47:00 09/24/2016 23:59:59 CLS Outpatient JAN CRAIN MD [facility] ACUTE ON CHRONIC DIASTOLIC CHF, ANTICOAG [place] [id number] 09/22/2016 15:15:00 09/22/2016 23:59:59 CLS Outpatient JAN CRAIN MD [facility] HH PERSISTENT A FIB [id number] 08/23/2016 15:15:00 08/23/2016 18:18:00 DIS Emergency KEVIN MCCULLOUGH MD [facility] ER SOB [id number] 05/26/2016 00:10:00 05/26/2016 23:59:59 CLS Preadmit SARA OWENS MD [facility] REHAB [id number] 04/22/2016 09:37:00 05/25/2016 00:01:00 DIS Outpatient SARA OWENS MD [facility] REHAB LOW BACK PAIN [id number] 11/11/2015 13:00:00 11/11/2015 23:59:59 CLS Outpatient TOMY HILARIO [facility] RAD CHRONIC KIDNEY DISEASE STAGE III,HLP [id number] 10/13/2014 16:24:00 10/13/2014 23:59:59 CLS Outpatient RIDINGS, JAME Cristobal BELCHERN [facility] QUICK [id number] 01/24/2019 09:30:00 PEN Preadmit SARA OWENS MD [facility] LEFT SHOULDER ROTATOR CUFF TEAR [id number] 11/11/2015 13:00:00 Document Registration [id number] 11/11/2015 13:00:00 Document Registration [id number] 11/11/2015 13:00:00 Document Registration [id number] 01/25/2013 21:00:00 Document Registration [id number] 05/09/2012 13:51:00 Document Registration [id number] 05/05/2012 08:24:00 Document Registration [id number] 03/08/2011 07:40:00 Document Registration [id number] 2011 11:53:00 Document Registration [id number] 07/09/2010 13:17:00 Document Registration [id number] 01/11/2019 15:00:00 01/11/2019 23:59:59 CLS Outpatient FRANCESCO PHILLIPS MD [facility] [id number] 05/25/2018 09:00:00 Document Registration [id number] 03/13/2018 12:00:00 Document Registration
[2019-01-24] MEDS ORDERED: BUPIVACAINE 0.25% 30 ML (SENSORCAINE) VIAL ONE (08:35)
[2019-01-24] MEDS ORDERED: morphine PF (DURAMORPH) 10 MG/10 ML AMP ONE (08:35)
[2019-01-24] MEDS ORDERED: CYCL10TA9 PO (08:46)
[2019-01-24] MEDS ORDERED: fentaNYL INJECTION 100 MCG/2 ML AMP ONE ×2 (08:46→10:24)
[2019-01-24] MEDS ORDERED: ONDANSETRON 4 MG/2 ML (SDV) Z0FRAN ONE (08:46)
[2019-01-24] MEDS ORDERED: DEXAMETHASONE 10 MG/ML (DECADRON) 1 ML VIAL ONE (08:46)
[2019-01-24] MEDS ORDERED: proPOfol 200 MG/20 ML (DIPRIVAN) VIAL IV ONE (08:46)
[2019-01-24] MEDS ORDERED: LIDOCAINE PF 2% 5 ML (XYLOCAINE) VIAL ONE (08:46)
[2019-01-24] MEDS ORDERED: SEVOFLURANE (ULTANE) 15 ML INHAL SOLN ONE ×2 (08:46→10:25)
[2019-01-24] MEDS ORDERED: POLY17PO6 PO (08:46)
[2019-01-24] MEDS ORDERED: ROCURONIUM 10 MG/ML 5 ML SYRINGE IV ONE (08:54)
[2019-01-24] MEDS ORDERED: GLYCOPYRROLATE 0.2 MG/ML (ROBINUL) 2 ML VIAL ONE (09:51)
[2019-01-24] MEDS ORDERED: NEOSTIGMINE 1 MG/ML 5 ML SYRINGE ONE (09:51)
[2019-01-24] MEDS ORDERED: PHENYLEPHRINE 100 MCG/ML 10 ML (ANESTHESIA) SYR ONE (10:10)
[2019-01-24] MEDS ORDERED: fentaNYL INJECTION 100 MCG/2 ML AMP IVP ONE (10:30)
[2019-01-24] MEDS ORDERED: PROMETHAZINE INJ 25 MG/ML (PHENERGAN) AMP IVP ONE (10:30)
[2019-01-24] MEDS ORDERED: MEPERIDINE (DEMEROL) INJ 50 MG/ML IVP ONE (10:30)
[2019-01-24] MEDS ORDERED: ONDANSETRON 4 MG/2 ML (SDV) Z0FRAN IVP PRN (10:30)
[2019-01-24 11:10] VITALS: BP 124/96
--- NOTE | 2019-01-24 11:10 | NUR ---
TO AMB SURG FROM PAR PER CART. ALERT, DENIES COMPLAINTS. DSG D/I TO RIGHT SHOULDER, JETSTREAM COOLING PAD ON, LEFT ARM IN SLING. CMS CHECKS WNL TO LEFT HAND/ARM. HOB ELEVATED AT 30 DEGREES. PO FLUIDS PROVIDED.
--- NOTE | 2019-01-24 11:21 | Anesthesia-General Post-Op ---
General Patient Condition Mental Status/LOC: Same as Preop Cardiovascular: Satisfactory Nausea/Vomiting: Absent Respiratory: Satisfactory Pain: Controlled Complications: Absent Post Op Complications Complications None Follow Up Care/Instructions Patient Instructions None needed. Anesthesia/Patient Condition Patient Condition Patient is doing well, no complaints, stable vital signs, no apparent adverse anesthesia problems. No complications reported per nursing. SHERI QUEEN CRNA Jan 24, 2019 11:21
[2019-01-24 11:40] VITALS: BP 111/98
--- NOTE | 2019-01-24 11:40 | NUR ---
C/O LEFT SHOULDER DISCOMFORT, PAIN RATED 2-3. PO FLUIDS AND CRACKERS PROVIDED.
--- NOTE | 2019-01-24 12:08 | NUR ---
PERCOCET 5/325 MG, ONE TAB, GIVEN PO FOR C/O LEFT SHOULDER PAIN RATED 4-5
[2019-01-24 12:15] VITALS: BP 117/75
--- NOTE | 2019-01-24 12:45 | NUR ---
HAS BEEN RESTING QUIETLY IN BED. ALERT, NO CHANGE IN SITE OR CMS ASSESSMENTS. STATES PAIN RATE IS DECREASING, RATED NOW 2-3.
[2019-01-24 13:25] VITALS: BP 117/75
--- NOTE | 2019-01-24 15:05 | OPERATIVE REPORT ---
DATE OF SERVICE: 01/24/2019 PREOPERATIVE DIAGNOSIS: Left rotator cuff tear. POSTOPERATIVE DIAGNOSIS: Left rotator cuff tear. PROCEDURE: 1. Left shoulder diagnostic arthroscopy. 2. Left shoulder open rotator cuff repair. SURGEON: John Chavez MD SYNTHETIC CHEMIST: Herb Adams, who assisted throughout the procedure and closed the incisions. ANESTHESIA: General endotracheal by Santana Hill CRNA. ESTIMATED BLOOD LOSS: Minimal. DRAINS: None. COMPLICATIONS: None. POSTOPERATIVE PLAN: Routine rotator cuff protocol with passive range of motion. Sling wear for 4 weeks. STATEMENT OF MEDICAL NECESSITY: The patient is a 78-year-old female who in the remote past had undergone open left rotator cuff repair and had been doing well until over the last year when she began experiencing increasing left arm pain. An MRI was ultimately obtained, which revealed a full-thickness supraspinatus tear and due to failure to improve with conservative measures including physical therapy, activity modifications and injections. The patient elected to proceed with surgical intervention. Examination under anesthesia revealed forward elevation of 170 degrees, external rotation of 80 degrees, internal rotation of 70 degrees. Arthroscopic findings demonstrated mild grade I softening central portion of the glenoid. No unstable chondral flaps were noted on the glenoid or humeral head. The biceps anchor was absent. There was no significant labral pathology noted. Supraspinatus insertion demonstrated a 2 x 1 cm detachment without significant retraction. The remainder of the rotator cuff was intact. DESCRIPTION OF PROCEDURE: After risks and benefits of procedure were discussed and questions were answered and informed consent was signed and placed on the chart, the operative site was confirmed in the preoperative holding area and initialed by the surgeon. The patient was then transported to the operating room and after adequate levels of general endotracheal anesthetic were obtained, a timeout was called confirming the operative site. Left upper extremity was prepped and draped in the usual sterile fashion after performing examination under anesthesia. Shoulder joint was injected with 20 mL of fluid. A standard posterior portal was placed. A diagnostic arthroscopy was carried out with the above findings noted. The subacromial space demonstrated no significant impingement findings and evidence of a previous acromioplasty. Scope was removed. The previous incision was utilized laterally and the deltoid was split in line with its fibers leaving attached to the acromion for later reapproximation. The rotator cuff tear was mobilized and repaired using a single corkscrew anchor in a modified Ilia-Nacho repair with excellent repair obtained. No undue tension was noted with the arm at the side. The wound was copiously irrigated. The deltoid was repaired in pfpw-ti-hlgs fashion using #2 FiberWire in a vflmen-rz-fkide fashion. The wound was further irrigated. A 2-0 Vicryl was used to reapproximate subcutaneous tissue. Skin was closed with 4-0 nylon in running alternating horizontal mattress fashion. The portal site was closed with 4-0 nylon in simple interrupted fashion. A soft dressing and sling were applied and the patient was transferred to the recovery room awake and in stable condition. Job ID: [id number] DocumentID: [id number] Dictated Date: 01/24/2019 10:12:49 Video Game Creator Date: 01/24/2019 15:05:09 Dictated By: JOHN CHAVEZ MD
== END 2019-01-24 13:25 | disposition home or self-care (01) ==
LOC: SDC 07:20
PROVIDERS: ATTEND Orthopaedic Surgery
DX: M75.102 Unspecified rotator cuff tear or rupture of left shoulder, not specified as traumatic (principal); E03.9 Hypothyroidism, unspecified; I11.0 Hypertensive heart disease with heart failure; E78.00 Pure hypercholesterolemia, unspecified; F41.9 Anxiety disorder, unspecified; F31.9 Bipolar disorder, unspecified; I48.91 Unspecified atrial fibrillation; I50.9 Heart failure, unspecified; E78.5 Hyperlipidemia, unspecified; G62.9 Polyneuropathy, unspecified; N28.9 Disorder of kidney and ureter, unspecified; K21.9 Gastro-esophageal reflux disease without esophagitis; Z79.01 Long term (current) use of anticoagulants; Z79.82 Long term (current) use of aspirin; Z79.899 Other long term (current) drug therapy; Z96.649 Presence of unspecified artificial hip joint

== ENCOUNTER 2019-02-11 19:56 | Emergency (ER) | payer MEDICARE ==
[~2019-02-11] VITALS: Ht 170.2 cm; Wt 61.2 kg
[~2019-02-11 19:56] MED LIST changes: +CYCL10TA9 PO
[2019-02-11] MEDS ORDERED: NS IV 1000 ML 1,000 ML IV ONE (20:22)
--- OUTSIDE RECORDS SUMMARY | 2019-02-11 20:22 | XMS REPORT | Encounter Summary ---
Author Author [facility] Organization [facility] Address Unknown Phone Unavailable Care Team Providers Care Trading Specialist Name Role Phone Stuart Jauregui MD PCP Reason for Visit * Reason Comments Returning patient call Encounter Details Date Type Department Care Team Description 01/29/2019 Telephone [facility] Erika Rg RN Returning patient call [facility] [address] [place] [address] [address] [place] [address] Social History Tobacco Use Types Packs/Day Years Used Date Never Smoker Smokeless Tobacco: Never Used Alcohol Use Drinks/Week oz/Week Comments No Sex Assigned at Date Recorded Not on file as of this encounter Miscellaneous Notes * Telephone Encounter - Erika Rg RN - 01/29/2019 11:16 AM CDT 01/29/19 See phone encounter of 01/08 Initially addressing cardiac clearance & 2 day hold of Elisirena for a shoulder surgery Note on 01/23 of pt having a pre op appt with EKG at that time showing A fib, denied having symptoms On 01/25 of pre op EKG "they said I was in a-fib so I thought I should get in sooner to see Dr Hunter Nixon" Voice message left today by pt stating "returning your call from last afternoon about a fib shortness of breath and swollen ankles their not real big but they are swollen. Just thought I'd return your call" Call to pt's listed home number & was able to speak with her directly. Pt stated that her ankle swelling just started over the weekend She usually takes her Lasix 3 times a week (1/2 tab) but she took a whole tablet yesterday and another whole tablet this morning She did voice slightly more yesterday than usual, & had just taken her dose today at about 0830. Commented that she does seem to have some more swelling today, that her ankles are not completely down/without swelling in the moring Advised her that this med works for 4-6 hours or a little more so she has much of the day yet to see its effect. Pt does not weigh herself "I[facility] not one to [facility]" Educated her on morning dry weight weighing for her wt. Instructed her to keep a simple diary of day/time/wt She reported that her shortness of breath does seem to be dependent on her activity, does not have SOA when at rest She just had her shoulder surgery on 01/24 so she is not sleeping well yet. She is to be starting her physical therapy. Instructed pt to begin being consistent with Furosemide 1/2 tab Qother day instead of the M-W-F she has been doing, to start on 01/31 as she has taken a whole tab each of the past 2 days She is to keep a diary of her weights I did discuss how during surgery she would have received IV flds, and for some people it doesn't take a lot of that to make someone feel swollen and have some edema She is to call us with an update on 02/02 or sooner. Attempted to connect her directly to a materials scheduler to discuss an appt as I could not speak to Dr Nixon availability. If she needs to arrange her annual appt then that can wait until Dr Nixon has availability, but if at some point she feels she is needing to be seen more urgently, we would rec she sees the first available provider. Advised her I would send the materials scheduler a message Pt voiced understanding in this encounter Plan of Treatment Date Type Specialty Care Team Description 04/13/2019 Office Visit Cardiology Radha Nixon MD [address] [place] [address] [address] [place] [address] [phone] as of this encounter Visit Diagnoses Not on filein this encounter
--- OUTSIDE RECORDS SUMMARY | 2019-02-11 20:22 | XMS REPORT | Clinical Summary ---
Author Author [facility] Organization [facility] Address Unknown Phone Unavailable Care Team Providers Care Statistical Developer Name Role Phone Stuart Jauregui MD PCP [...] Prevention of Recurrent (twelve) hours. Atrial Fibrillation flecainide (TAMBOCOR) 50 Take 1 tablet (50 mg 180 tablet 0 10/25/19 01/23/20 Discontin MG tabletIndications: total) by mouth every 12 19 19 ued Prevention of Recurrent (twelve) hours. Atrial Fibrillation Active Problems Problem Noted Date Chronic diastolic CHF (congestive heart failure) ([facility]) 10/01/2016 PAF (paroxysmal atrial fibrillation) ([facility]) 10/01/2016 Valvular disease 10/01/2016 Tricuspid valve regurgitation 09/20/2016 Overview: Moderate to severe tricuspid regurgitation noted on ECHO Mitral valve regurgitation 09/17/2016 Overview: Calcified mitral valve with mean gradient of 5 mmHg consistent with mild stenosis, with mild to moderate (2+) regurgitation. 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 Overview: Flecainide Pulmonary HTN (HCC) retirement current use of anticoagulant Overview: Eliquis Coronary atherosclerosis of [place] coronary artery Resolved Problems Problem Noted Date Resolved Date Acute on chronic diastolic CHF (congestive heart failure) ([facility]) 09/17/2016 01/20/2017 Persistent atrial fibrillation ([facility]) 08/10/2016 01/20/2017 Encounters Date Type Specialty Care Team Description 02/01/2019 Documentation Cardiology Radha Nixon MD 01/29/2019 Telephone Cardiology Erika Rg RN Returning patient call 01/26/2019 Orders Only Cardiology Radha Nixon MD PAF ( paroxysmal atrial fibrillation) ([facility]) 01/22/2019 Telephone Cardiology Luciano Salas RN 01/10/2019 Refill Cardiology Radha Nixon MD Medication Refill 01/08/2019 Telephone Cardiology Ivette De La Garza RN Medication hold request/afib from Last 3 Months Immunizations Name Dates [...] 36.4 C (97.6 F) 09/21/2016 11:48 AM [employer] [employer] Respiratory Rate 16 09/21/2016 11:48 AM [employer] Oxygen Saturation 95% 09/21/2016 11:48 AM [employer] Inhaled Oxygen - - Concentration Weight 60.1 kg (132 lb 9.6 oz) 04/18/2018 1:24 PM CDT Height 165.1 cm (5' 5") 04/18/2018 1:24 PM CDT Body Mass Index 22.07 04/18/2018 1:24 PM CDT Plan of Treatment Date Type Specialty Care Team Description 04/13/2019 Office Visit Cardiology Radha Nixon MD [address] [facility] [address] [place] [address] Health Maintenance Due Date Last Done Comments Medicare Annual Wellness 1940 Td # 1940 Zoster Vaccine# (1 of 2) 1991 Depression Screening 2006 PHQ-9 # Osteoporosis Screening 2006 Fall Risk Assessment # 09/21/2017 09/21/2016 Pneumococcal Immunization 09/21/2017 09/21/2016 65+ (2 of 2 - PPSV23) Influenza Vaccine (Season 08/24/2019 Ended) Implants Implanted Type Area Care Manager Device Expiration Model / Identifier Date Serial / Lot Hip Replacements Procedures Procedure Name Priority Date/Time Associated Diagnosis Comments BASIC METABOLIC PANEL Routine 01/12/2019 PAF (paroxysmal atrial Results for this 12:00 AM CDT fibrillation) (HCC) procedure are in the results section. from Last 3 Months Results * Basic Metabolic Panel (01/12/2019) Calcium 9.8 8.5 - 10.8 mg/dL [facility] Glucose 97 60 - 125 mg/dL [facility] Blood Urea Nitrogen 14 9 - 27 mg/dL [facility] Potassium 4.6 3.5 - 5.5 mmol/L [facility] Sodium 141 132 - 145 mmol/L [facility] Chloride 103 95 - 110 mmol/L [facility] Creatinine 1.1 0.6 - 1.5 mg/dL [facility] Carbon Dioxide 32 24 - 34 mmol/L [facility] BUN/Creatinine Ratio 12.3 12 - 20 [facility] eGFR If NonAfricn Am 49 [facility] Specimen Blood Narrative Performed At Performing Organization Address City/State/Zipcode Phone Number [facility] [address] [place] [address] from Last 3 Months
--- OUTSIDE RECORDS SUMMARY | 2019-02-11 20:22 | XMS REPORT | Encounter Summary ---
Author Author [facility] Organization [facility] Address Unknown Phone Unavailable Care Team Providers Care Phlebotomist Medical Lab Assistant Name Role Phone Stuart Jauregui MD PCP Encounter Details Date Type Department Care Team Description 02/01/2019 Documentation [facility] Radha Nixon MD [address] [facility] [address] [place] [address] [facility] [address] [place] [address] [phone] Social History Tobacco Use Types Packs/Day Years Used Date Never Smoker Smokeless Tobacco: Never Used Alcohol Use Drinks/Week oz/Week Comments No Sex Assigned at Date Recorded Not on file as of this encounter Plan of Treatment Date Type Specialty Care Team Description 04/13/2019 Office Visit Cardiology Radha Nixon MD [address] [place] [address] [phone] as of this encounter Visit Diagnoses Not on filein this encounter
--- OUTSIDE RECORDS SUMMARY | 2019-02-11 20:22 | XMS REPORT | Encounter Summary ---
Author Author [facility] Organization [facility] Address Unknown Phone Unavailable Care Team Providers Care Optics Test Technician Name Role Phone Stuart Jauregui MD PCP Encounter Details Date Type Department Care Team Description 01/22/2019 Telephone [facility] Luciano Salas RNsearch coordinator [facility] [address] [facility] [address] [place] [address] Social History Tobacco Use Types Packs/Day Years Used Date Never Smoker Smokeless Tobacco: Never Used Alcohol Use Drinks/Week oz/Week Comments No Sex Assigned at Date Recorded Not on file as of this encounter Miscellaneous Notes * Telephone Encounter - Luciano Salas RN - 01/22/2019 2:28 PM CDT Pt called to ask for refill; refill processed in this encounter Plan of Treatment Date Type Specialty Care Team Description 04/13/2019 Office Visit Cardiology Radha Nixon MD [address] [place] [place] [address] [phone] as of this encounter Visit Diagnoses Diagnosis Persistent atrial fibrillation (HCC) Atrial fibrillation
--- OUTSIDE RECORDS SUMMARY | 2019-02-11 20:22 | XMS REPORT | Encounter Summary ---
Author Author [facility] Organization [facility] Address Unknown Phone Unavailable Care Team Providers Care Piano Sounding Board Matcher Name Role Phone Stuart Jauregui MD PCP Encounter Details Date Type Department Care Team Description 01/26/2019 Orders Only [facility] Radha Nixon MD PAF ( paroxysmal atrial Cardiovascular [address] fibrillation) ([facility]) [facility] [place] [place] [address] [address] [place] [address] [phone] Social History Tobacco Use Types Packs/Day Years Used Date Never Smoker Smokeless Tobacco: Never Used Alcohol Use Drinks/Week oz/Week Comments No Sex Assigned at Date Recorded Not on file as of this encounter Plan of Treatment Date Type Specialty Care Team Description 04/13/2019 Office Visit Cardiology Radha Nixon MD [address] [place] [address] [phone] as of this encounter Procedures Procedure Name Priority Date/Time Associated Diagnosis Comments BASIC METABOLIC PANEL Routine 01/12/2019 PAF (paroxysmal atrial Results for this 12:00 AM CDT fibrillation) ([facility]) procedure are in the results section. in this encounter Results * Basic Metabolic Panel (01/12/2019) Calcium [...] At Performing Organization Address City/State/Zipcode Phone Number [facility] [address] [place] [address] in this encounter Visit Diagnoses Diagnosis PAF (paroxysmal atrial fibrillation) (HCC) Atrial fibrillation
--- OUTSIDE RECORDS SUMMARY | 2019-02-11 20:22 | XMS REPORT | Encounter Summary ---
Author Author [facility] Organization [facility] Address Unknown Phone Unavailable Care Team Providers Care Guest Service Host Name Role Phone Stuart Jauregui MD PCP Reason for Visit * Reason Comments Medication Refill Encounter Details Date Type Department Care Team Description 01/10/2019 Refill [facility] Radha Nixon MD Medication Refill Cardiovascular [address] [facility] [address] [place] [address] [address] [place] [address] [phone] Social History Tobacco Use Types Packs/Day Years Used Date Never Smoker Smokeless Tobacco: Never Used Alcohol Use Drinks/Week oz/Week Comments No Sex Assigned at Date Recorded Not on file as of this encounter Miscellaneous Notes * Telephone Encounter - Adeola Mustafa LPN - 01/12/2019 9:06 AM CDT 01/12/19 Adryan from [facility] in [facility] [phone]. I have Ms Dorado in office and she said she was suppose to get lab requisition from Dr Hunter Nixon to d blood work. We do not have the requisition. I will go ahead and draw her blood waiting on your call. Return call to Adryan --spoke with Magali informed of above conversation.Our fax number is [phone]. I will be faxing a BMP requisiition now an if not received with in half hr please return call to [phone].Verbalized understanding. Document faxed with conformation of successful fax of 2 pages-transmitted. * Telephone Encounter - Zoe Sanchez RN - 01/10/2019 3:13 PM CDT Patient called, spoke with her on phone, instructed that a bmp was ordered and she needed to get it done, v/u in this encounter Plan of Treatment Date Type Specialty Care Team Description 04/13/2019 Office Visit Cardiology Radha Nixon MD [address] [facility] [address] [place], [place] [id number] as of this encounter Results * Basic Metabolic Panel [...] Organization Address City/State/Zipcode Phone Number [facility] [address] [place] [address] in this encounter Visit Diagnoses Diagnosis PAF (paroxysmal atrial fibrillation) (HCC) - Primary Atrial fibrillation
--- OUTSIDE RECORDS SUMMARY | 2019-02-11 20:22 | XMS REPORT | Encounter Summary ---
Author Author [facility] Organization [facility] Address Unknown Phone Unavailable Care Team Providers Care Nuts And Bolts Assembler Name Role Phone Stuart Jauregui MD PCP Reason for Visit * Reason Comments Medication hold request/afib Encounter Details Date Type Department Care Team Description 01/08/2019 Telephone [facility] Ivette De La Garza RN Medication hold Cardiovascular request/afib [facility] [address] [place] [address] [address] [place] [address] Social History Tobacco Use Types Packs/Day Years Used Date Never Smoker Smokeless Tobacco: Never Used Alcohol Use Drinks/Week oz/Week Comments No Sex Assigned at Date Recorded Not on file as of this encounter Miscellaneous Notes * Telephone Encounter - Adeola Mustafa LPN - 01/25/2019 1:05 PM CDT 01/25/19 Ms Dorado left I got a phone call yesterday that it is time to renew my appointment. When I went to pre-op on Tuesday they said I was in a-fib so I thought I should get in sooner to see Dr Hunter Nixon. I would be home till after 2 :15pm due to doctors appointment. Return call to pt I am aware you will not be home until after 2:15pm- I would like to leave you with the schedulers number ([phone]) and the blue pod nurse call back number ([phone]). Upon your return call please list any symptoms you may be having related to a-fib. * Telephone Encounter - Pat Loya, RN - 01/23/2019 4:41 PM CDT Pt [...] and faxed to Dr. Adair office at [phone]. Confirmation of fax received for 2 pages. [...] the letter can be faxed to either [phone] or [phone]. in this encounter Plan of Treatment Date Type Specialty Care Team Description 04/13/2019 Office Visit Cardiology Radha Nixon MD [address] [place] [address] [phone] as of this encounter Visit Diagnoses Not on filein this encounter
--- OUTSIDE RECORDS SUMMARY | 2019-02-11 20:23 | XMS REPORT ---
Author Author Migration, Doctor Organization [facility] Address Unknown Phone Unavailable Care Team Providers Care Piecer Name Role Phone Migration, Doctor Unavailable Unavailable PROBLEMS Type Condition ICD9-CM Code MLH15-TX Code Onset Dates Condition Status SNOMED Code Problem Arthritis M19.90 Active 4596635 Problem Chronic kidney disease (CKD) stage G1/A1, glomerular filtration rate ( GFR) equal to or greater than 90 mL/min/1.73 square meter and albuminuria creatinine ratio less than 30 mg/g N18.1 Active 270215254 Problem Generalized anxiety disorder F41.1 Active 20204442 Problem MDD (major depressive disorder), recurrent, in partial remission F33.41 Active 75158121 Problem 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 Active 354418969 Problem Hypothyroidism E03.9 Active 46331699 Problem Gastro-esophageal reflux disease without esophagitis K21.9 Active 605304369 Problem Paroxysmal a-fib I48.0 Active 97214269 Problem Paroxysmal atrial fibrillation I48.0 Active 533463165 Problem Chronic diastolic heart failure I50.32 Active 876370970 Problem Secondary hyperparathyroidism of renal origin N25.81 Active 58593913 Problem Acquired hypothyroidism E03.9 Active 755294940 Problem Carpal tunnel syndrome of left wrist G56.02 Active 65681242 ALLERGIES No Information ENCOUNTERS Encounter Location Date Diagnosis [place] [address] [address] Jan, [place] [address] [address] Dec, Lumbar radiculopathy M54.16 [place] [address] [address] 2044 Dec, [place] [address] [address] 1425 Dec, [place] [address] [place] [id number] [place] [address] 16629- 4287 Dec, Arth[address] M19.90 [facility] [address] [place] [id number] [place] [address] 32556- 7476 Dec, [facility] [id number] [place] [address] 16816- 1496 Dec, Arthritis M19.90 [facility] [id number] [place] [address] 78487- 6138 Nov, [facility] [id number] [place] [address] 42822- 2556 Nov, Generalized anxiety disorder F41.1 [facility] [address] [place] [id number] [place] [address] 00915- 1558 Oct, Paroxysmal a-fib I48.0 [place] [address] [place] [id number] [place] [address] 85041- 2917 Oct, Paroxysmal atrial fibrillation I48.0 [facility] [address] [id number] [place] [address] 40782- 2717 Oct, Paroxysmal a-fib I48.0 [facility] [address] [place] [address] [id number] [place] [address] 85014- 1078 Sep, Arthritis M19.90 ; Hypothyroidism E03.9 and Left shoulder pain M25.512 [facility] [address] [place] [address] [id number] [place] [address] 35315- 2414 Sep, [facility] [id number] [place] [address] 52192- 0444 Aug, Generalized anxiety disorder F41.1 [facility] [address] [place] [address] [id number] [place] [address] 26480- 0084 Aug, [facility] [address] [id number] [place] [address] 14447- 8446 Jul, Depression [address]32.9 [facility] [address] [place] [id number] [place] [address] 00742- 7991 15 Jul, 2018 [facility] [id number] [place] [address] 57814- 1953 Jul, [place] [address] [place] [id number] [place] [address] 98974- 1175 10 Jun, [address] [facility] [address] [place] [id number] [place] [address] 38449- 5631 May, Arthritis M19.90 and Carpal tunnel syndrome of left wrist G56.02 [place] [address] [place] [id number] [place] [address] 58127- 1881 May, [place] [address] 60368- 8279 May, Generalized anxiety disorder F41.1 [place] [address] [place] [id number] [place] [address] 76607- 8288 May, Chronic kidney disease, stage 1 N18.1 [place] [address] [place] [id number] [place] [address] 07881- 4829 May, Chronic kidney disease, stage 1 N18.1 and Chronic diastolic heart failure I50.32 [facility] [address] [id number] [place] [address] 23621 -6052 Mar, Pain, dental K08.89 [place] [address] [place] [id number] [place] [address] 66098- 5465 February, Medicare annual wellness visit, initial Z00.00 ; MDD (major depressive disorder), recurrent, in partial remission F33.41 ; Atrial fibrillation, unspecified type I48.91 ; Chronic diastolic heart failure I50.32 ; Secondary hyperparathyroidism of renal origin N25.81 ; Acquired hypothyroidism E03.9 ; Anxiety F41.9 ; Chronic kidney disease, stage 1 N18.1 and Encounter for immunization Z23 [facility] [id number] [place] [address] 98639- 9344 February, Closed fracture of one rib of right side, initial encounter S22.31XA ; Acute cystitis with hematuria N30.01 ; Right flank pain R10.9 and Rib pain on right side R07.81 [place] [address] 99736- 2236 Jan, Acquired hypothyroidism E03.9 ; 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 ; Chronic kidney disease (CKD) stage G1/A1, glomerular filtration rate (GFR) equal to or greater than 90 mL/min/1.73 square meter and albuminuria creatinine ratio less than 30 mg/g N18.1 ; Paroxysmal atrial fibrillation I48.0 ; Chronic diastolic heart failure I50.32 and Secondary hyperparathyroidism of renal origin N25.81 [place] [address] 28584- 9032 Jan, Arthritis M19.90 [place] [address] 73694- 9517 Jan, Paroxysmal atrial fibrillation I48.0 [place] [address] 40552- 3506 Jan, Paroxysmal atrial fibrillation I48.0 [place] [address] [place] [id number] [place] [address] 29102- 9867 Jan, [place] [address] 61333- 2401 Jan, Generalized anxiety disorder F41.1 [place] [address] [place] [id number] [place] [address] 64429- 1548 Jan, Generalized anxiety disorder F41.1 and MDD (major depressive disorder), recurrent, in partial remission F33.41 [place] [address] [place] [id number] [place] [address] 22939- 4015 Dec, Arthritis M19.90 [place] [address] 26531- 4373 Dec, [place] [address] [place] [id number] [place] [address] 28253- 8211 Nov, Arthritis M19.90 ; Chronic kidney disease (CKD) stage G1/A1 , glomerular filtration rate (GFR) equal to or greater than 90 mL/min/1.73 square meter and albuminuria creatinine ratio less than 30 mg/g N18.1 and Anxiety F41.9 [place] [address] [place] [id number] [place] [address] 62231- 4253 Nov, [place] [address] 89944- 4905 Nov, [place] [address] 58321- 7082 Nov, [place] [address] 06535- 4751 Nov, [place] [address] 80193- 3921 Nov, [place] [address] 15136- 8614 Oct, Generalized anxiety disorder F41.1 [place] [address] [place] [id number] [place] [address] 61687- 4475 Sep, Atrial fibrillation, unspecified type I48.91 [place] [address] [place] [id number] [place] [address] 31677- 3405 Sep, Generalized anxiety disorder F41.1 and MDD (major depressive disorder), recurrent, in partial remission F33.41 [place] [address] [place] [id number] [place] [address] 87663- 6817 Sep, [place] [address] [place] [id number] [place] [address] 08630- 2768 Aug, Generalized anxiety disorder F41.1 [place] [address] [place] [id number] [place] [address] 24738- 4285 Aug, [place] [address] [place] [id number] [place] [address] 73818- 7168 Aug, Paroxysmal atrial fibrillation I48.0 and Gastro-esophageal reflux disease without esophagitis K21.9 [facility] [address] [address]- 2028 Jul, [facility] [address] [place] [id number] [place] [address] 07959- 5356 Jul, Generalized anxiety disorder F41.1 [facility] [address] [address]- 3187 Jun, Generalized anxiety disorder F41.1 and MDD (major depressive disorder), recurrent, in partial remission F33.41 [facility] [address] [address]- 2051 May, Recurrent major depressive disorder, in partial remission F33.41 [facility] [address] [id number] [place] [address] 39784- 4964 May, Anxiety F41.9 and Paroxysmal atrial fibrillation I48.0 [place] [address] [place] [id number] [place] [address] 54700- 9604 Apr, Generalized anxiety disorder F41.1 [facility] [id number] [place] [address] 37600- 4332 Mar, [facility] [address] [place] [id number] [place] [address] 97112- 4869 Mar, Generalized anxiety disorder F41.1 and MDD (major depressive disorder), recurrent, in partial remission F33.41 [facility] [address] [address]- 9862 February, Paroxysmal atrial fibrillation I48.[address] [facility] [address] [address]- 2709 February, MDD (major depressive disorder), recurrent, in partial remission F33.41 [facility] [address] [address]- 1568 Jan, [facility] [id number] [place] [address] 66968 -5019 Jan, [facility] [id number] [place] [address] 38171- 1724 Jan, [facility] [id number] [place] [address] 11109- 5277 Jan, [facility] [address] [id number] [place] [address] 03452- 1505 Dec, [facility] [address] [id number] [place] [address] 56389- 1421 Dec, Generalized anxiety disorder F41.1 [facility] [address] [place] [id number] [place] [address] 55457- 3039 Dec, Generalized anxiety disorder F41.1 and MDD (major depressive disorder), recurrent, in partial remission F33.41 [facility] [address] [place] [id number] [place] [address] 37472- 9895 15 Dec, 2016 [facility] [address] [id number] [place] [address] 47782- 0259 14 Dec, 2016 [facility] [address] [id number] [place] [address] 44793- 1072 Dec, [facility] [address] [id number] [place] [address] 66537- 7182 28 Nov, 2016 [facility] [address] [id number] [place] [address] 60764- 4723 Nov, Gastro-esophageal reflux disease without esophagitis K21.9 [facility] [address] [id number] [place] [address] 10739- 1713 10 Nov, 2016 Atrial fibrillation, unspecified type I48.[address] [facility] [address] [place] [id number] [place] [address] 49609- 7052 Oct, [facility] [address] [id number] [place] [address] 86697- 5664 Oct, [facility] [address] [id number] [place] [address] 51048- 3692 Oct, Depression F32.9 and Atrial fibrillation, unspecified type I48.91 [facility] [address] [place] [id number] [place] [address] 44500- 0437 Oct, [facility] [address] [place] [id number] [place] [address] 09496- 2363 Sep, Depression F32.9 [facility] [address] [place] [id number] [place] [address] 56364- 5203 Sep, Recurrent major depressive disorder, in partial remission F33.41 and Generalized anxiety disorder F41.1 [place] [address] [place] [id number] [place] [address] 89856- 5790 Sep, Paroxysmal atrial fibrillation I48.0 and Anxiety F41.9 [place] [address] [place] [id number] [place] [address] 41456- 9544 Sep, [facility] [address] [place] [id number] [place] [address] 88665- 1166 Sep, [facility] [address] [id number] [place] [address] 84434- 6037 Sep, Gastro-esophageal reflux disease without esophagitis K21.9 [facility] [address] [id number] [place] [address] 71953- 6062 Aug, [facility] [address] [place] [id number] [place] [address] 19455- 5345 Aug, [facility] [address] [place] [id number] [place] [address] 72689- 5248 Aug, Atrial fibrillation, unspecified type I48.91 [facility] [address] [place] [id number] [place] [address] 66557- 9195 Jul, Major depressive disorder, recurrent, in partial remission F33.41 and Generalized anxiety disorder F41.1 [facility] [address] [place] [id number] [place] [address] 26838- 7976 Jul, [place] [address] [place] [id number] [place] [address] 80307- 1755 [address], [address] [facility] [address] [id number] [place] [address] 99782- 1830 15 Jun, 2016 Bronchitis J40 and Memory loss R41.3 [place] [address] [place] [id number] [place] [address] 38387- 9323 14 Jun, 2016 Upper respiratory infection with cough and congestion J06.9 [facility] [address] [id number] [place] [address] 77673- 5223 Apr, [place] [address] [place] [id number] [place] [address] 88334- 0595 Apr, Major depressive disorder, recurrent, unspecified F33.9 ; Anxiety F41.9 and Psychophysiological insomnia F51.04 [place] [address] [place] [id number] [place] [address] 04949- 9133 Mar, [facility] [id number] [place] [address] 93100- 3943 Mar, [place] [address] [place] [id number] [place] [address] 31656- 9289 February, [place] [address] [place] [id number] [place] [address] 69920- 4395 Jan, Postural hypotension I95.1 [facility] [address] [id number] [place] [address] 20729- 3168 14 Jan, 2016 Recurrent major depressive disorder in remission F33.40 ; Generalized anxiety disorder F41.1 and Psychophysiological insomnia F51.04 [facility] [address] [id number] [place] [address] 06314- 4356 14 Dec, 2015 Generalized anxiety disorder F41.1 [facility] [id number] [place] [address] 47853 -5411 Dec, Unspecified fall, initial encounter W19.XXXA [facility] [address] [id number] [place] [address] 21233- 2957 Nov, Depression F32.9 and Anxiety F41.9 [place] [address] 92723- 9906 Oct, [place] [address] 49011- 0706 Oct, [place] [address] 41358- 5816 Oct, Chronic kidney disease, stage 3 (moderate) N18.3 [place] [address] 01956- 9290 Oct, Head contusion S00.93XA ; Cervical strain S16.1XXA and Arthritis M19.90 [place] [address] 07750- 3556 Oct, Chronic kidney disease 585.9 [place] [address] 15216- 2366 Oct, Chronic kidney disease 585.9 [place] [address] [place] [id number] [place] [address] 43909- 1326 Oct, [place] [address] 50783- 0348 Sep, [place] [address] [place] [id number] [place] [address] 68902- 0240 Aug, Chronic kidney disease N18.9 [place] [address] 04205- 8819 Aug, Chronic kidney disease (CKD) stage G1/A1, glomerular filtration rate (GFR) equal to or greater than 90 mL/min/1.73 square meter and albuminuria creatinine ratio less than 30 mg/g N18.1 and GERD (gastroesophageal reflux disease) K21.9 [place] [address] [place] [id number] [place] [address] 89857- 8886 Aug, [place] [address] [place] [address] [address] 9020 Jun, Generalized anxiety disorder 300.02 ; Major depression, recurrent 296.30 and Persistent 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 [facility] [address] [place] [address] 49460- 1845 Jun, [facility] [id number] [place] [address] 04489- 9808 May, [facility] [address] [id number] [place] [address] 79652- 8840 May, Generalized anxiety disorder 300.02 and Depression, major, recurrent, in remission 296.35 [facility] [address] [id number] [place] [address] 07197- 7508 May, [facility] [id number] [place] [address] 38083- 1971 May, [facility] [address] [id number] [place] [address] 04662- 3101 May, [facility] [address] [id number] [place] [address] 66254- 5452 May, [facility] [address] [id number] [place] [address] 33728- 7616 May, Chronic kidney disease 585.9 [facility] [id number] [place] [address] 25609- 3249 Apr, Chronic kidney disease 585.9 [facility] [id number] [place] [address] 65432- 8815 Apr, [facility] [address] [id number] [place] [address] 719483- 9802 Apr, Arthropathy 716.90 ; Hyperlipidemia 272.4 ; Hypothyroidism 244.9 and GERD (gastroesophageal reflux disease) 530.81 [facility] [address] [address]- 2237 Apr, Arthropathy 716.90 ; Hypothyroidism 244.9 ; Hyperlipidemia 272.4 and GERD (gastroesophageal reflux disease) 530.81 [facility] [address] [address]- 9050 Mar, [facility] [id number] [place] [address] 91688- 7262 February, Depression, major, recurrent, in remission 296.35 and Generalized anxiety disorder 300.02 [facility] [id number] [place] [address] 64913- 8842 February, [facility] [id number] [place] [address] 50937- 5319 February, [facility] [id number] [place] [address] 98816- 5541 Jan, [facility] [id number] [place] [address] 87148- 5775 Jan, [facility] [id number] [place] [address] 47625- 6755 Oct, [facility] [address] [address]- 9370 Oct, [facility] [id number] [place] [address] 12419- 8885 Oct, [facility] [address] [address]- 0201 Oct, [facility] [address] [address]- 3061 Oct, [facility] [address] [address]- 0450 Oct, [facility] [id number] [place] [address] 236237- 9528 Sep, [facility] [address] 9768 Sep, [facility] [id number] [place] [address] 26287- 0013 Aug, [facility] [place] [facility] [address] [id number] [place] [address]- 2783 Aug, [facility] [place] [facility] [address] [id number] [place] [address]- 6626 Aug, [facility] [place] [facility] [address] [id number] [place] [address]- 5414 Aug, [facility] [place] [facility] [address] [id number] [place] [address]- 4003 Jul, [facility] [place] [facility] [address] [id number] [place] [address]- 7801 Jul, [facility] [place] [facility] [address] [id number] [place] [address]- 7615 Jul, [facility] [place] [facility] [address] [id number] [place] [address]- 0470 Jul, [facility] [place] [facility] [address] [id number] [place] [address]- 0533 29 Jun, 2014 [facility] [place] [facility] [address] [id number] [place] [address]- 0179 Jun, [facility] [place] [facility] [address] [id number] [place] [address]- 7718 Jun, [facility] [place] [facility] [address] [id number] [place] [address]- 8110 Jun, [facility] [place] [facility] [address] [id number] [place] [address]- 2543 10 Jun, 2014 [facility] [place] [facility] [address] [id number] [place] [address] 2549 Jun, [facility] [place] [facility] [address] [id number] [place] [address]- 254 Jun, [facility] [place] [facility] [address] [id number] [place] [address]- 9280 May, [facility] [place] [facility] [address] [id number] [place] [address]- 5583 May, [facility] [place] [facility] [address] [id number] [place] [address] May, [facility] [place] [facility] [address] [id number] [place] [address] May, [facility] [place] [facility] [address] [id number] [place] [address] Apr, [facility] [place] [facility] [address] [id number] [place] [address] Apr, [facility] [place] [facility] [address] [id number] [place] [address] Apr, [facility] [place] [facility] [address] [id number] [place] [address] Apr, [facility] [place] [facility] [address] [id number] [place] [address] Apr, [facility] [place] [facility] [address] [id number] [place] [address] Apr, [facility] [place] [facility] [address] [id number] [place] [address] Apr, [facility] [place] [facility] [address] [id number] [place] [address] Apr, [facility] [place] [facility] [address] [id number] [place] [address] Mar, [facility] [place] [facility] [address] [id number] [place] [address] Mar, [facility] [place] [facility] [address] [id number] [place] [address] Mar, [facility] [place] [facility] [address] [id number] [place] [address] Mar, [facility] [place] [facility] [address] [id number] [place] [address] Mar, [facility] [place] [facility] [address] [id number] [place] [address] Mar, [facility] [place] [facility] [address] [id number] [place] [address] Mar, [facility] [place] [facility] [address] [id number] [place] [address] Mar, [facility] [place] [facility] [address] [id number] [place] [address] Dec, [facility] [place] [facility] [address] [id number] [place] [address] Dec, [facility] [place] [facility] [address] [id number] [place] [address] Dec, [facility] [place] [facility] [address] [id number] [place] [address] Dec, [facility] [place] [facility] [address] [id number] [place] [address] Dec, [facility] [place] [facility] [address] [id number] [place] [address] Dec, [facility] [place] [facility] [address] [id number] [place] [address] Dec, [facility] [place] [facility] [address] [id number] [place] [address] Dec, [facility] [place] [facility] [address] [id number] [place] [address] Nov, [facility] [place] [facility] [address] [id number] [place] [address] Nov, [facility] [place] [facility] [address] [id number] [place] [address] Nov, [facility] [place] [facility] [address] [id number] [place] [address] Nov, [facility] [place] [facility] [address] [id number] [place] [address] 14 Nov, 2013 [facility] [address] [id number] [place] [address] 14 Nov, 2013 [facility] [place] [facility] [address] [id number] [place] [address] 2546 Nov, [facility] [address] [id number] [place] [address]646 Nov, [facility] [place] [facility] [address] [id number] [place] [address]41 Aug, [facility] [place] [facility] [address] [id number] [place] [address] Aug, [facility] [place] [facility] [address] [id number] [place] [address] Jul, [facility] [place] [facility] [address] [id number] [place] [address] Jul, [facility] [place] [facility] [address] [id number] [place] [address] 4[address] Jul, [facility] [place] [facility] [address] [facility] [id number] [place] [address]99 30 Jun, 2013 [facility] [place] [facility] [address] [id number] [place] [address]42 30 Jun, 2013 [facility] [place] [facility] [address] [id number] [place] [address] 2546 24 Jun, 2013 [facility] [place] [facility] [address] [id number] [place] [address] 2546 Jun, [facility] [place] [facility] [address] [id number] [place] [address] 2546 04 Jun, 2013 [facility] [place] [facility] [address] [id number] [place] [address] 2546 May, [facility] [place] [facility] [address] [id number] [place] [address] Apr, [facility] [address] [id number] [place] [address] 4709 Apr, [facility] [place] [facility] [address] [id number] [place] [address]121 Apr, [facility] [address] [id number] [place] [address] 0033 Mar, [facility] [place] [facility] [address] [id number] [place] [address] Mar, [facility] [address] [id number] [place] [address] February, [facility] [place] [facility] [address] [id number] [place] [address] 7725 February, [facility] [address] [id number] [place] [address] 6699 February, [facility] [address] [id number] [place] [address] 37[address] February, [facility] [place] [facility] [address] [id number] [place] [address] Jan, [facility] [place] [facility] [address] [id number] [place] [address] 8087 Jan, [facility] [place] [facility] [address] [id number] [place] [address] 3145 Jan, [facility] [place] [facility] [address] [id number] [place] [address]80 04 Jan, 2013 [facility] [place] [facility] [address] [id number] [place] [address]561 Dec, [facility] [place] [facility] [address] [id number] [place] [address] 2360 13 Dec, 2012 [facility] [place] [facility] [address] [id number] [place] [address] 5814 Dec, [facility] [place] [facility] [address] [id number] [place] [address] Nov, [facility] [address] [id number] [place] [address] 15 Nov, 2012 [facility] [place] [facility] [address] [id number] [place] [address] 4[address] Nov, [facility] [address] [id number] [place] [address] 9[address] Oct, [facility] [place] [facility] [address] [id number] [place] [address] 3297 Oct, [facility] [address] [id number] [place] [address] 1786 Sep, [facility] [address] [id number] [place] [address] 9978 Sep, [facility] [address] [id number] [place] [address] 1262 Sep, [facility] [address] [id number] [place] [address] 4149 Sep, [facility] [address] [id number] [place] [address] 0696 Sep, [facility] [address] [facility] [id number] [place] [address]34 Aug, [facility] [address] [id number] [place] [address] 9273 Aug, [facility] [place] [facility] [address] [id number] [place] [address] 3203 Aug, [facility] [place] [facility] [address] [id number] [place] [address] 4166 Aug, [facility] [place] [facility] [address] [id number] [place] [address] 7911 Aug, [facility] [address] [id number] [place] [address] 9715 Aug, [facility] [place] [facility] [address] [id number] [place] [address] 2552 Jun, [facility] [place] [facility] [address] [id number] [place] [address] 9256 Jun, [facility] [place] [facility] [address] [id number] [place] [address] 0176 Jun, [facility] [place] [facility] [address] [id number] [place] [address] 9773 May, [facility] [place] [facility] [address] [id number] [place] [address] 8801 May, [facility] [place] [facility] [address] [id number] [place] [address] 1167 May, [facility] [place] [facility] [address] [id number] [place] [address] 8424 May, [facility] [place] [facility] [address] [id number] [place] [address] 4748 Apr, [facility] [place] [facility] [address] [id number] [place] [address] 5887 Mar, [facility] [place] [facility] [address] [id number] [place] [address] 0841 Mar, [facility] [place] [facility] [address] [id number] [place] [address] 5657 Mar, [facility] [place] [facility] [address] [id number] [place] [address] 1771 February, [facility] [place] [facility] [address] [id number] [place] [address] 5726 February, [facility] [place] [facility] [address] [id number] [place] [address] 2403 February, [facility] [place] [facility] [address] [id number] [place] [address] 6826 February, [facility] [place] [facility] [address] [id number] [place] [address]- 0106 Dec, [facility] [address] [id number] [place] [address]- 1482 Dec, [facility] [place] [facility] [address] [id number] [place] [address]- 5066 Dec, [facility] [place] [facility] [address] [facility] [id number] [place] [address]- 6141 Dec, [facility] [place] [facility] [address] [id number] [place] [address]- 9626 Nov, [facility] [place] [facility] [address] [id number] [place] [address]- 3541 Nov, [facility] [place] [facility] [address] [facility] [id number] [place] [address]- 5096 Nov, [facility] [address] [facility] [id number] [place] [address]- 4972 Nov, [facility] [place] [facility] [address] [facility] [id number] [place] [address]- 9533 Nov, [facility] [place] [facility] [address] [facility] [id number] [place] [address]- 9877 Oct, [facility] [place] [facility] [address] [facility] [id number] [place] [address]- 6526 Oct, [facility] [place] [facility] [address] [facility] [id number] [place] [address]- 3045 Oct, [facility] [place] [facility] [address] [facility] [id number] [place] [address] 2546 Aug, [facility] [place] [facility] [address] [facility] [id number] [place] [address]- 5344 Aug, [facility] [place] [facility] [address] [facility] [id number] [place] [address]- 2206 Jul, [facility] [place] [facility] [address] [facility] [id number] [place] [address]- 8049 Jul, [facility] [place] [facility] [address] [id number] [place] [address]- 5705 Jul, [facility] [place] [facility] [address] [id number] [place] [address]- 6750 Jul, [facility] [place] [facility] [address] [id number] [place] [address] 18 Jul, 2011 [facility] [place] [facility] [address] [id number] [place] [address]- 7201 17 Jul, 2011 [facility] [place] [facility] [address] [id number] [place] [address]- 2930 Jul, [facility] [place] [facility] [address] [id number] [place] [address] 1967 Jul, [facility] [place] [facility] [address] [id number] [place] [address]- 0980 May, [facility] [place] [facility] [address] [id number] [place] [address]- 8436 February, [facility] [place] [facility] [address] [id number] [place] [address]- 7155 Nov, [facility] [place] [facility] [address] [id number] [place] [address]- 5822 Sep, [facility] [place] [facility] [address] [id number] [place] [address]- 5206 Aug, [facility] [place] [facility] [address] [id number] [place] [address]- 8798 14 Oct, 2009 [facility] [place] [facility] [address] [id number] [place] [address]- 7175 Jul, [facility] [place] [facility] [address] [id number] [place] [address]- 3177 18 Jun, 2009 [facility] [place] [facility] [address] [id number] [place] [address]- 0556 16 Mar, 2009 [facility] [place] [facility] [address] [id number] [place] [address]- [address] Mar, [facility] [address] [facility] [id number] [place] [address]- 1683 17 Nov, 2008 IMMUNIZATIONS No Known Immunizations SOCIAL HISTORY Never Assessed REASON FOR VISIT EMR-[facility] PLAN OF CARE VITAL SIGNS MEDICATIONS Unknown [...] 2017 Hospitalization History surgeries Hospitalization History [facility]- irregular heart beat, shortness of breath Aug 2016 Hospitalization History post left hip surgery oct 2017
--- OUTSIDE RECORDS SUMMARY | 2019-02-11 20:24 | XMS REPORT ---
Author Author Migration, Doctor Organization [facility] Address Unknown Phone Unavailable Care Team Providers Care Oracle R12 Developer Name Role Phone Migration, Doctor Unavailable Unavailable PROBLEMS Type Condition ICD9-CM Code OFG69-ZK Code Onset Dates Condition Status SNOMED Code Problem Arthritis M19.90 Active 6180632 Problem Chronic kidney disease (CKD) stage G1/A1, glomerular filtration rate ( GFR) equal to or greater than 90 mL/min/1.73 square meter and albuminuria creatinine ratio less than 30 mg/g N18.1 Active 735324829 Problem Generalized anxiety disorder F41.1 Active 24310607 Problem MDD (major depressive disorder), recurrent, in partial remission F33.41 Active 71139695 Problem 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 Active 797059548 Problem Hypothyroidism E03.9 Active 13770345 Problem Gastro-esophageal reflux disease without esophagitis K21.9 Active 650428693 Problem Paroxysmal a-fib I48.0 Active 82663683 Problem Paroxysmal atrial fibrillation I48.0 Active 555798106 Problem Chronic diastolic heart failure I50.32 Active 119117990 Problem Secondary hyperparathyroidism of renal origin N25.81 Active 88569466 Problem Acquired hypothyroidism E03.9 Active 816253866 Problem Carpal tunnel syndrome of left wrist G56.02 Active 60960990 ALLERGIES No Information ENCOUNTERS Encounter Location Date Diagnosis [place] [id number] [address] Jan, [place] [id number] [address] Dec, Lumbar radiculopathy M54.16 [place] [id number] [address] 4960 Dec, [place] [id number] [address] 2513 Dec, [place] [address] [place] [id number] [place] [address] 87412- 2526 Dec, Arthritis M19.90 [facility] [id number] [place] [address] 90105- 3781 Dec, [facility] [id number] [place] [address] 82259- 4578 Dec, Arthritis M19.90 [facility] [id number] [place] [address] 66658- 0763 Nov, [facility] [id number] [place] [address] 91434- 9365 Nov, Generalized anxiety disorder F41.1 [facility] [address] [id number] [place] [address] 77958- 9899 Oct, Paroxysmal a-fib I48.0 [place] [address] [address] [id number] [place] [address] 79515- 1255 Oct, Paroxysmal atrial fibrillation I48.0 [facility] [id number] [place] [address] 94285- 1079 Oct, Paroxysmal a-fib I48.0 [facility] [address] [id number] [place] [address] 33955- 1386 Sep, Arthritis M19.90 ; Hypothyroidism E03.9 and Left shoulder pain M25.512 [facility] [id number] [place] [address] 67719- 8158 Sep, [facility] [id number] [place] [address] 17876- 9673 Aug, Generalized anxiety disorder F41.1 [facility] [id number] [place] [address] 74386- 3201 Aug, [facility] [id number] [place] [address] 74862- 4066 Jul, Depression F32.9 [facility] [id number] [place] [address] 13913- 4342 15 Jul, 2018 [facility] [id number] [place] [address] 93524- 6594 Jul, [place] [address] [place] [id number] [place] [address] 07004- 6154 10 Jun, 2018 Depression F32.9 [facility] [id number] [place] [address] 51400- 4160 May, Arthritis M19.90 and Carpal tunnel syndrome of left wrist G56.02 [place] [address] [id number] [place] [address] 61344- 1485 May, [place] [address] 25628- 8047 May, Generalized anxiety disorder F41.1 [place] [address] [id number] [place] [address] 92851- 8756 May, Chronic kidney disease, stage 1 N18.1 [place] [address] [place] [id number] [place] [address] 84051- 4413 May, Chronic kidney disease, stage 1 N18.1 and Chronic diastolic heart failure I50.32 [facility] [id number] [place] [address] 87609 -2824 Mar, Pain, dental K08.89 [place] [address] [place] [id number] [place] [address] 09148- 9818 February, Medicare annual wellness visit, initial Z00.00 ; MDD (major depressive disorder), recurrent, in partial remission F33.41 ; Atrial fibrillation, unspecified type I48.91 ; Chronic diastolic heart failure I50.32 ; Secondary hyperparathyroidism of renal origin N25.81 ; Acquired hypothyroidism E03.9 ; Anxiety F41.9 ; Chronic kidney disease, stage 1 N18.1 and Encounter for immunization Z23 [facility] [id number] [place] [address] 42660- 7237 February, Closed fracture of one rib of right side, initial encounter S22.31XA ; Acute cystitis with hematuria N30.01 ; Right flank pain R10.9 and Rib pain on right side R07.81 [place] [address] 89226- 2993 Jan, Acquired hypothyroidism E03.9 ; 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 ; Chronic kidney disease (CKD) stage G1/A1, glomerular filtration rate (GFR) equal to or greater than 90 mL/min/1.73 square meter and albuminuria creatinine ratio less than 30 mg/g N18.1 ; Paroxysmal atrial fibrillation I48.0 ; Chronic diastolic heart failure I50.32 and Secondary hyperparathyroidism of renal origin N25.81 [place] [address] 99148- 5938 Jan, Arthritis M19.90 [place] [address] 00590- 7871 Jan, Paroxysmal atrial fibrillation I48.0 [place] [address] 86650- 9644 Jan, Paroxysmal atrial fibrillation I48.0 [place] [address] [place] [id number] [place] [address] 01971- 2615 Jan, [place] [address] 38095- 9477 Jan, Generalized anxiety disorder F41.1 [place] [address] [place] [id number] [place] [address] 14785- 3666 Jan, Generalized anxiety disorder F41.1 and MDD (major depressive disorder), recurrent, in partial remission F33.41 [place] [address] [place] [id number] [place] [address] 90011- 7899 Dec, Arthritis M19.90 [place] [address] 68807- 3889 Dec, [place] [address] [place] [id number] [place] [address] 79295- 7540 Nov, Arthritis M19.90 ; Chronic kidney disease (CKD) stage G1/A1 , glomerular filtration rate (GFR) equal to or greater than 90 mL/min/1.73 square meter and albuminuria creatinine ratio less than 30 mg/g N18.1 and Anxiety F41.9 [place] [address] [place] [id number] [place] [address] 73686- 9306 Nov, [place] [address] 82792- 4860 Nov, [place] [address] 14933- 7134 Nov, [place] [address] 08626- 2578 Nov, [place] [address] 23504- 9248 Nov, [place] [address] 31354- 7691 Oct, Generalized anxiety disorder F41.1 [place] [address] [place] [id number] [place] [address] 11437- 6584 Sep, Atrial fibrillation, unspecified type I48.91 [place] [address] [place] [id number] [place] [address] 66037- 3228 Sep, Generalized anxiety disorder F41.1 and MDD (major depressive disorder), recurrent, in partial remission F33.41 [place] [address] [place] [id number] [place] [address] 05365- 7268 Sep, [place] [address] [place] [id number] [place] [address] 67328- 4207 Aug, Generalized anxiety disorder F41.1 [place] [address] [place] [id number] [place] [address] 05317- 9326 Aug, [place] [address] [place] [id number] [place] [address] 53242- 0509 Aug, Paroxysmal atrial fibrillation I48.0 and Gastro-esophageal reflux disease without esophagitis K21.9 [facility] [address] [address]- 3948 Jul, [facility] [address] [place] [id number] [place] [address] 07399- 1076 Jul, Generalized anxiety disorder F41.1 [facility] [address] [address]- 2599 Jun, Generalized anxiety disorder F41.1 and MDD (major depressive disorder), recurrent, in partial remission F33.41 [facility] [address] [address]- 1140 May, Recurrent major depressive disorder, in partial remission F33.41 [facility] [address] [id number] [place] [address] 32768- 4195 May, Anxiety F41.9 and Paroxysmal atrial fibrillation I48.0 [place] [address] [place] [id number] [place] [address] 15202- 5693 Apr, Generalized anxiety disorder F41.1 [facility] [id number] [place] [address] 30979- 0148 Mar, [facility] [address] [place] [id number] [place] [address] 76912- 9718 Mar, Generalized anxiety disorder F41.1 and MDD (major depressive disorder), recurrent, in partial remission F33.41 [facility] [address] [address]- 6559 February, Paroxysmal atrial fibrillation I48.0 and Anxiety F41.9 [facility] [id number] [address]- 4649 February, MDD (major depressive disorder), recurrent, in partial remission F33.41 [facility] [id number] [address]- 4178 Jan, [facility] [id number] [place] [address] 97667 -5139 Jan, [facility] [id number] [place] [address] 78803- 7686 Jan, [facility] [address] [id number] [place] [address] 69468- 7467 Jan, [facility] [id number] [place] [address] 86016- 9390 Dec, [facility] [id number] [place] [address] 94552- 5616 Dec, Generalized anxiety disorder F41.1 [facility] [address] [id number] [place] [address] 90893- 0287 Dec, Generalized anxiety disorder F41.1 and MDD (major depressive disorder), recurrent, in partial remission F33.41 [facility] [address] [place] [id number] [place] [address] 79762- 7303 15 Dec, 2016 [facility] [id number] [place] [address] 00772- 6048 14 Dec, 2016 [facility] [id number] [place] [address] 09637- 3010 Dec, [facility] [address] [id number] [place] [address] 53833- 6218 28 Nov, 2016 [facility] [address] [id number] [place] [address] 80613- 6998 Nov, Gastro-esophageal reflux disease without esophagitis K21.9 [facility] [address] [id number] [place] [address] 46453- 6536 10 Nov, 2016 Atrial fibrillation, unspecified type I48.91 and Anxiety F41.9 [facility] [address] [id number] [place] [address] 56156- 9496 Oct, [facility] [id number] [place] [address] 90156- 0413 Oct, [facility] [id number] [place] [address] 66630- 0685 Oct, Depression F32.9 and Atrial fibrillation, unspecified type I48.91 [facility] [address] [place] [id number] [place] [address] 52754- 5296 Oct, [facility] [id number] [place] [address] 94570- 9250 Sep, Depression F32.9 [facility] [address] [place] [id number] [place] [address] 16025- 6748 Sep, Recurrent major depressive disorder, in partial remission F33.41 and Generalized anxiety disorder F41.1 [place] [address] [place] [id number] [place] [address] 58157- 4919 Sep, Paroxysmal atrial fibrillation I48.0 and Anxiety F41.9 [place] [address] [place] [id number] [place] [address] 19988- 8325 Sep, [facility] [address] [place] [id number] [place] [address] 24290- 5747 Sep, [facility] [address] [place] [id number] [place] [address] 95019- 3597 Sep, Gastro-esophageal reflux disease without esophagitis K21.9 [facility] [address] [id number] [place] [address] 88663- 6477 Aug, [facility] [address] [id number] [place] [address] 15377- 3103 Aug, [facility] [id number] [place] [address] 51369- 8569 Aug, Atrial fibrillation, unspecified type I48.91 [facility] [address] [place] [id number] [place] [address] 19743- 4465 Jul, Major depressive disorder, recurrent, in partial remission F33.41 and Generalized anxiety disorder F41.1 [facility] [address] [place] [id number] [place] [address] 30868- 7347 Jul, [place] [address] [place] [id number] [place] [address] 02109- 1711 30 Jun, 2016 [facility] [address] [id number] [place] [address] 99391- 0796 15 Jun, 2016 Bronchitis J40 and Memory loss R41.3 [place] [address] [place] [id number] [place] [address] 51018- 5147 14 Jun, 2016 Upper respiratory infection with cough and congestion J06.9 [facility] [address] [place] [id number] [place] [address] 25461- 3857 Apr, [place] [address] [place] [id number] [place] [address] 25975- 9068 Apr, Major depressive disorder, recurrent, unspecified F33.9 ; Anxiety F41.9 and Psychophysiological insomnia F51.04 [place] [address] [place] [id number] [place] [address] 09036- 2692 Mar, [facility] [address] [id number] [place] [address] 77116- 9388 Mar, [place] [address] [place] [id number] [place] [address] 31545- 9599 February, [place] [address] [place] [id number] [place] [address] 61589- 6410 Jan, Postural hypotension I95.1 [facility] [address] [place] [id number] [place] [address] 14073- 7935 14 Jan, 2016 Recurrent major depressive disorder in remission F33.40 ; Generalized anxiety disorder F41.1 and Psychophysiological insomnia F51.04 [facility] [address] [place] [id number] [place] [address] 61618- 1628 14 Dec, 2015 Generalized anxiety disorder F41.1 [facility] [id number] [place] [address] 13831 -9689 Dec, Unspecified fall, initial encounter W19.XXXA [facility] [address] [place] [id number] [place] [address] 10238- 2739 Nov, Depression F32.9 and Anxiety F41.9 [place] [address] 03854- 6889 Oct, [place] [address] 71703- 0576 Oct, [place] [address] 90460- 6335 Oct, Chronic kidney disease, stage 3 (moderate) N18.3 [place] [address] 13797- 2511 Oct, Head contusion S00.93XA ; Cervical strain S16.1XXA and Arthritis M19.90 [place] [address] 98251- 6461 Oct, Chronic kidney disease 585.9 [place] [address] 89244- 4015 Oct, Chronic kidney disease 585.9 [place] [address] [place] [id number] [place] [address] 99332- 7406 Oct, [place] [address] 93283- 0751 Sep, [place] [address] [place] [id number] [place] [address] 73541- 7864 Aug, Chronic kidney disease N18.9 [place] [address] 62363- 5145 Aug, Chronic kidney disease (CKD) stage G1/A1, glomerular filtration rate (GFR) equal to or greater than 90 mL/min/1.73 square meter and albuminuria creatinine ratio less than 30 mg/g N18.1 and GERD (gastroesophageal reflux disease) K21.9 [place] [id number] [place] [address] 62078- 1308 Aug, [place] [address] [place] [address] [address] 4987 Jun, Generalized anxiety disorder 300.02 ; Major depression, recurrent 296.30 and Persistent 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 [facility] [id number] [place] [address] 17336- 3188 Jun, [facility] [address] [id number] [place] [address] 95166- 3665 May, [facility] [id number] [place] [address] 12678- 8666 May, Generalized anxiety disorder 300.02 and Depression, major, recurrent, in remission 296.35 [facility] [address] [id number] [place] [address] 61335- 6340 May, [facility] [id number] [place] [address] 46056- 9317 May, [facility] [address] [id number] [place] [address] 45908- 4092 May, [facility] [id number] [place] [address] 54547- 9593 May, [facility] [id number] [place] [address] 62496- 2418 May, Chronic kidney disease 585.9 [facility] [id number] [place] [address] 41265- 2186 Apr, Chronic kidney disease 585.9 [facility] [id number] [place] [address] 81462- 3266 Apr, [facility] [address] [id number] [place] [address] 971250- 1956 Apr, Arthropathy 716.90 ; Hyperlipidemia 272.4 ; Hypothyroidism 244.9 and GERD (gastroesophageal reflux disease) 530.81 [facility] [id number] [address] 0022 Apr, Arthropathy 716.90 ; Hypothyroidism 244.9 ; Hyperlipidemia 272.4 and GERD (gastroesophageal reflux disease) 530.81 [facility] [address] [address]- 1027 Mar, [facility] [id number] [place] [address] 10877- 8085 February, Depression, major, recurrent, in remission 296.35 and Generalized anxiety disorder 300.02 [facility] [id number] [place] [address] 35639- 0546 February, [facility] [id number] [place] [address] 97179- 6021 February, [facility] [id number] [place] [address] 39132- 7790 Jan, [facility] [id number] [place] [address] 98252- 3239 Jan, [facility] [id number] [place] [address] 56438- 1924 Oct, [facility] [id number] [address]- 6150 Oct, [facility] [id number] [place] [address] 21781- 9137 Oct, [facility] [id number] [address]- 9942 Oct, [facility] [id number] [address]- 5535 Oct, [facility] [id number] [address]- 4976 Oct, [facility] [id number] [place] [address] 828595- 0480 Sep, [facility] [id number] 9829 Sep, [facility] [id number] [place] [address] 13839- 6835 Aug, [facility] [place] [facility] [address] [id number] [place] [address]- 6089 Aug, [facility] [place] [facility] [address] [id number] [place] [address]- 4101 Aug, [facility] [place] [facility] [address] [id number] [place] [address]- 1707 Aug, [facility] [place] [facility] [address] [id number] [place] [address]- 8385 Jul, [facility] [place] [facility] [address] [id number] [place] [address]- 7947 Jul, [facility] [place] [facility] [address] [id number] [place] [address]- 0807 Jul, [facility] [place] [facility] [address] [id number] [place] [address]- 1156 Jul, [facility] [place] [facility] [address] [id number] [place] [address]- 6497 29 Jun, 2014 [facility] [place] [facility] [address] [id number] [place] [address]- 3091 Jun, [facility] [place] [facility] [address] [id number] [place] [address]- 0224 Jun, [facility] [place] [facility] [address] [id number] [place] [address]- 1783 Jun, [facility] [place] [facility] [address] [id number] [place] [address]- 2548 10 Jun, 2014 [facility] [place] [facility] [address] [id number] [place] [address] 2548 Jun, [facility] [place] [facility] [address] [id number] [place] [address] Jun, [facility] [place] [facility] [address] [id number] [place] [address] May, [facility] [place] [facility] [address] [id number] [place] [address] May, [facility] [place] [facility] [address] [id number] [place] [address] May, [facility] [place] [facility] [address] [id number] [place] [address] May, [facility] [place] [facility] [address] [id number] [place] [address] Apr, [facility] [place] [facility] [address] [id number] [place] [address] Apr, [facility] [place] [facility] [address] [id number] [place] [address] Apr, [facility] [place] [facility] [address] [id number] [place] [address] Apr, [facility] [place] [facility] [address] [id number] [place] [address] Apr, [facility] [place] [facility] [address] [id number] [place] [address] Apr, [facility] [place] [facility] [address] [id number] [place] [address] Apr, [facility] [place] [facility] [address] [id number] [place] [address] Apr, [facility] [place] [facility] [address] [id number] [place] [address] Mar, [facility] [place] [facility] [address] [id number] [place] [address] Mar, [facility] [place] [facility] [address] [id number] [place] [address] Mar, [facility] [place] [facility] [address] [id number] [place] [address] Mar, [facility] [place] [facility] [address] [id number] [place] [address] Mar, [facility] [place] [facility] [address] [id number] [place] [address] Mar, [facility] [place] [facility] [address] [id number] [place] [address] Mar, [facility] [place] [facility] [address] [id number] [place] [address] Mar, [facility] [place] [facility] [address] [id number] [place] [address] Dec, [facility] [place] [facility] [address] [id number] [place] [address] Dec, [facility] [place] [facility] [address] [id number] [place] [address] Dec, [facility] [place] [facility] [address] [id number] [place] [address] Dec, [facility] [place] [facility] [address] [id number] [place] [address] Dec, [facility] [place] [facility] [address] [id number] [place] [address] Dec, [facility] [place] [facility] [address] [id number] [place] [address] Dec, [facility] [place] [facility] [address] [id number] [place] [address] Dec, [facility] [place] [facility] [address] [id number] [place] [address] Nov, [facility] [place] [facility] [address] [id number] [place] [address] Nov, [facility] [place] [facility] [address] [id number] [place] [address] 137[address] Nov, [facility] [place] [facility] [address] [id number] [place] [address] Nov, [facility] [place] [facility] [address] [id number] [place] [address] 14 Nov, 2013 [facility] [address] [id number] [place] [address] 14 Nov, 2013 [facility] [place] [facility] [address] [id number] [place] [address] 2546 Nov, [facility] [address] [id number] [place] [address] Nov, [facility] [place] [facility] [address] [id number] [place] [address] Aug, [facility] [place] [facility] [address] [id number] [place] [address] Aug, [facility] [place] [facility] [address] [id number] [place] [address] Jul, [facility] [place] [facility] [address] [id number] [place] [address] Jul, [facility] [place] [facility] [address] [id number] [place] [address] 8[address] Jul, [facility] [place] [facility] [address] [facility] [id number] [place] [address] 30 Jun, 2013 [facility] [place] [facility] [address] [id number] [place] [address]47 30 Jun, 2013 [facility] [place] [facility] [address] [id number] [place] [address] 2546 24 Jun, 2013 [facility] [place] [facility] [address] [id number] [place] [address] 2546 Jun, [facility] [place] [facility] [address] [id number] [place] [address] 2546 04 Jun, 2013 [facility] [place] [facility] [address] [id number] [place] [address] 2546 May, [facility] [place] [facility] [address] [id number] [place] [address] Apr, [facility] [address] [id number] [place] [address] 8875 Apr, [facility] [place] [facility] [address] [id number] [place] [address] 3515 Apr, [facility] [address] [id number] [place] [address] Mar, [facility] [place] [facility] [address] [id number] [place] [address] Mar, [facility] [address] [id number] [place] [address] February, [facility] [place] [facility] [address] [id number] [place] [address] February, [facility] [address] [id number] [place] [address]597 February, [facility] [address] [id number] [place] [address] February, [facility] [place] [facility] [address] [id number] [place] [address] Jan, [facility] [place] [facility] [address] [id number] [place] [address]286 Jan, [facility] [place] [facility] [address] [id number] [place] [address] Jan, [facility] [place] [facility] [address] [id number] [place] [address] 04 Jan, 2013 [facility] [place] [facility] [address] [id number] [place] [address] Dec, [facility] [place] [facility] [address] [id number] [place] [address] 13 Dec, 2012 [facility] [place] [facility] [address] [id number] [place] [address] 164[address] Dec, [facility] [place] [facility] [address] [id number] [place] [address] Nov, [facility] [address] [id number] [place] [address]- 1731 15 Nov, 2012 [facility] [place] [facility] [address] [id number] [place] [address]- 5926 Nov, [facility] [address] [id number] [place] [address] Oct, [facility] [place] [facility] [address] [id number] [place] [address]- 3526 Oct, [facility] [address] [id number] [place] [address] Sep, [facility] [address] [id number] [place] [address]- 1841 Sep, [facility] [address] [id number] [place] [address]- [address]600 Sep, [facility] [address] [id number] [place] [address]458 Sep, [facility] [address] [id number] [place] [address]117 Sep, [facility] [address] [facility] [id number] [place] [address] 8777 Aug, [facility] [address] [id number] [place] [address]- 6865 Aug, [facility] [place] [facility] [address] [id number] [place] [address]- 4[address] Aug, [facility] [place] [facility] [address] [id number] [place] [address]- 2071 Aug, [facility] [place] [facility] [address] [id number] [place] [address]- 2811 Aug, [facility] [address] [id number] [place] [address]- 6610 Aug, [facility] [place] [facility] [address] [id number] [place] [address]- 8726 Jun, [facility] [place] [facility] [address] [id number] [place] [address]- 9243 Jun, [facility] [place] [facility] [address] [id number] [place] [address]- 9106 Jun, [facility] [place] [facility] [address] [id number] [place] [address]- 8879 May, [facility] [place] [facility] [address] [id number] [place] [address]- 6196 May, [facility] [place] [facility] [address] [id number] [place] [address]- 2763 May, [facility] [place] [facility] [address] [id number] [place] [address]- 5993 May, [facility] [place] [facility] [address] [id number] [place] [address]- 6606 Apr, [facility] [place] [facility] [address] [id number] [place] [address]- [address]32 Mar, [facility] [place] [facility] [address] [id number] [place] [address]- 2452 Mar, [facility] [place] [facility] [address] [id number] [place] [address]- 4309 Mar, [facility] [place] [facility] [address] [id number] [place] [address]- 6765 February, [facility] [place] [facility] [address] [id number] [place] [address]- 0367 February, [facility] [place] [facility] [address] [id number] [place] [address]- 9589 February, [facility] [place] [facility] [address] [id number] [place] [address]- 5926 February, [facility] [place] [facility] [address] [id number] [place] [address]- 3976 Dec, [facility] [address] [id number] [place] [address]- 2917 Dec, [facility] [place] [facility] [address] [id number] [place] [address]- 7716 Dec, [facility] [place] [facility] [address] [facility] [id number] [place] [address]- 2625 Dec, [facility] [place] [facility] [address] [id number] [place] [address]- 8060 Nov, [facility] [place] [facility] [address] [id number] [place] [address]- 2447 Nov, [facility] [place] [facility] [address] [facility] [id number] [place] [address]- 3256 Nov, [facility] [address] [facility] [id number] [place] [address]- 7464 Nov, [facility] [place] [facility] [address] [facility] [id number] [place] [address]- 2043 Nov, [facility] [place] [facility] [address] [facility] [id number] [place] [address]- 1247 Oct, [facility] [place] [facility] [address] [facility] [id number] [place] [address]- 9636 Oct, [facility] [place] [facility] [address] [facility] [id number] [place] [address]- 6445 Oct, [facility] [place] [facility] [address] [facility] [id number] [place] [address] 2546 Aug, [facility] [place] [facility] [address] [facility] [id number] [place] [address]- 1952 Aug, [facility] [place] [facility] [address] [facility] [id number] [place] [address]- 8726 Jul, [facility] [place] [facility] [address] [facility] [id number] [place] [address]- 0910 Jul, [facility] [place] [facility] [address] [id number] [place] [address]- 3597 Jul, [facility] [place] [facility] [address] [id number] [place] [address]- 2324 Jul, [facility] [place] [facility] [address] [id number] [place] [address] 18 Jul, 2011 [facility] [place] [facility] [address] [id number] [place] [address]- 2938 17 Jul, 2011 [facility] [place] [facility] [address] [id number] [place] [address]- 1717 Jul, [facility] [place] [facility] [address] [id number] [place] [address]- 7544 Jul, [facility] [place] [facility] [address] [id number] [place] [address]- 5487 May, [facility] [place] [facility] [address] [id number] [place] [address]- 0899 February, [facility] [place] [facility] [address] [id number] [place] [address]- 0504 Nov, [facility] [place] [facility] [address] [id number] [place] [address]- 8683 Sep, [facility] [place] [facility] [address] [id number] [place] [address]- 7489 Aug, [facility] [place] [facility] [address] [id number] [place] [address]- 7221 14 Oct, 2009 [facility] [place] [facility] [address] [id number] [place] [address]- 4822 Jul, [facility] [place] [facility] [address] [id number] [place] [address]- 8515 18 Jun, 2009 [facility] [place] [facility] [address] [id number] [place] [address]- 5670 16 Mar, 2009 [facility] [place] [facility] [address] [id number] [place] [address]- 8328 Mar, [facility] [address] [facility] [id number] [place] [address]- [address]562 17 Nov, 2008 IMMUNIZATIONS No Known Immunizations SOCIAL HISTORY Never Assessed REASON FOR VISIT EMR-[facility] PLAN OF CARE VITAL SIGNS MEDICATIONS Unknown [...]
--- NOTE | 2019-02-11 20:31 | ED General ---
General Stated Complaint: WEAKNESS,DIZZINESS Source of Information: Patient, Family Exam Limitations: No Limitations History of Present Illness Date Seen by Provider: Feb 11, 2019 Time Seen by Provider: 20:14 Initial Comments Here with daughter who reports that the patient has been increasingly weak over the last few days. She lives at home alone. Apparently today she got up at least 3 times and fell and was found by her daughter. The last time she was incontinent of urine. No report of nausea or vomiting. Patient reports dizziness. Does complain of mid back pain and has bruising across the mid thoracic spine from a fall today. Timing/Duration: 2-3 Days, Getting Worse Severity: Moderate Modifying Factors: improves with Immobilization; worse with Movement Associated Systoms: No Cough, No Fever/Chills, No Nausea/Vomiting; Shortness of Air, Weakness Allergies and Home Medications Allergies Coded Allergies: morphine (Verified Adverse Reaction, Mild, N/V, 01/22/19) Uncoded Allergies: TAPE (Allergy, Mild, RASH, 01/22/19) Home Medications Acetaminophen 500 Mg Tablet, 1,000 MG PO Q6H PRN for PAIN-MILD, (Reported) TAKES 2 (500MG) TABLETS Alprazolam 1 Mg Tablet, 1.5 MG PO Q8H PRN for ANXIETY Prescribed by: BI REY on 12/09/17916 Apixaban 2.5 Mg Tablet, 2.5 MG PO BID, (Reported) Aspirin 81 Mg Tablet.dr, 81 MG PO MoWeFr, (Reported) Bupropion HCl 150 Mg Tablet.er, 150 MG PO BID WITH MEALS Prescribed by: BI REY on 12/09/17916 Cholecalciferol (Vitamin D3) 1,000 Unit Capsule, 1,000 UNIT PO DAILY, (Reported) Cyclobenzaprine HCl 10 Mg Tablet, 10 MG PO HS, (Reported) Ferrous Sulfate 325 Mg Tablet, 325 MG PO DAILY@0700 Prescribed by: BI REY on 12/09/17916 Flecainide Acetate 50 Mg Tablet, 50 MG PO BID, (Reported) Furosemide 20 Mg Tablet, 10 MG PO Q48H, (Reported) Gabapentin 300 Mg Capsule, 300 MG PO HS, (Reported) Levothyroxine Sodium 25 Mcg Tablet, 25 MCG PO DAILY, (Reported) Metoprolol Tartrate 25 Mg Tablet, 25 MG PO BID, (Reported) Omeprazole 20 Mg Capsule.dr, 20 MG PO DAILY, (Reported) Polyethylene Glycol 3350 17 Gm Powd.pack, 17 GM PO DAILY, (Reported) Pravastatin Sodium 40 Mg Tablet, 40 MG PO HS, (Reported) Tramadol HCl 50 Mg Tablet, 100 MG PO Q6H PRN for PAIN-MILD TO MODERATE, ( Reported) Trazodone HCl 100 Mg Tablet, 100 MG PO DAILY, (Reported) Patient Home Medication List Home Medication List Reviewed: Yes Review of Systems Review of Systems Constitutional: see HPI; No chills; weakness EENTM: nose congestion, throat pain Respiratory: No cough; short of breath Cardiovascular: No chest pain, No edema Gastrointestinal: No abdominal pain, No diarrhea, No nausea, No vomiting Genitourinary: see HPI; No pain Musculoskeletal: back pain, muscle weakness Skin: change in color; No lesions Psychiatric/Neurological: Denies Headache; Weakness All Other Systems Reviewed Negative Unless Noted: Yes Past Iwrlvcc-Bmbanm-Yqrvuy Hx Past Med/Social Hx: Reviewed Nursing Past Med/Soc Hx Patient Social History Alcohol Use: Denies Use Recreational Drug Use: No Smoking Status: Never a Smoker 2nd Hand Smoke Exposure: No Recent Foreign Travel: No Contact w/Someone Who Travel: No Recent Hopitalizations: Yes Immunizations Up To Date Tetanus Booster (TDap): Unknown PED Vaccines UTD: Yes Date of Pneumonia Vaccine: Aug 01, 2017 Date of Influenza Vaccine: Jul 31, 2018 Seasonal Allergies Seasonal Allergies: No Past Medical History Surgeries: Yes (RTH, KNEE,HEART CATH, BREAST BIOPSY, R RCR, LAP JEEVAN, KNEE CAP, ANKLE) Appendectomy, Breast, Gallbladder, Joint Replacement, Oophorectomy, Orthopedic, Tonsillectomy, Tubal Ligation Respiratory: No Cardiac: Yes Atrial Fibrillation, High Cholesterol, Hypertension Neurological: No Reproductive Disorders: No Sexually Transmitted Disease: No HIV/AIDS: No Genitourinary: No Gastrointestinal: Yes Gastroesophageal Reflux, Chronic Constipation, Hiatal Hernia Musculoskeletal: Yes Arthritis, Chronic Back Pain, Fractures Endocrine: Yes Hypothyroidsim HEENT: Yes (GLASSES, DENTURES) Loss of Vision: Bilateral Hearing Impairment: Denies Cancer: No Psychosocial: Yes Anxiety, Bipolar, Depression Integumentary: No Blood Disorders: Yes (POST OP ANEMIA) Adverse Reaction/Blood Tranf: No (HAS HAD BLOOD WITH NO REACTION) Family Medical History Reviewed Nursing Family Hx FH: stroke 19 FATHER G8 SISTER Myocardial infarction 19 FATHER G8 BROTHER G8 BROTHER CAD Over 55 Years Old, Stroke Physical Exam Vital Signs Vital Signs - First Documented 02/11/19 20:14 Temp 98.0 Pulse 96 Resp 12 B/P (MAP) 129/66 (87) Pulse Ox 99 O2 Delivery Room Air Capillary Refill : Height, Weight, BMI Height: 5'4.00" Weight: 135lbs. 8.0oz. 61.657351kv; 23.3 BMI Method:Stated General Appearance: No Apparent Distress, Other (weak appearing) HEENT: PERRL/EOMI, Pharyngeal Erythema, Other (bilateral nasal congestion) Neck: Full Range of Motion, Normal Inspection, Non Tender, Supple Respiratory: Lungs Clear, Normal Breath Sounds Cardiovascular: Irregularly Irregular, Tachycardia Gastrointestinal: Non Tender, Soft Back: No CVA Tenderness (L), No CVA Tenderness (R), No Muscle Spasm; Vertebral Tenderness (mid thoracic spine and low lumbar spine) Extremity: Normal Inspection, Normal Range of Motion, Non Tender, No Calf Tenderness Neurologic/Psychiatric: Alert, Oriented x3 Skin: Warm/Dry, Ecchymosis (mid thoracic spine area 4 x 8 cm bruise across the mid back) Progress/Results/Core Measures Suspected Sepsis SIRS Temperature: Pulse: Respiratory Rate: Laboratory Tests 02/11/19 20:30: White Blood Count 8.0 Blood Pressure / Mean: Laboratory Tests 02/11/19 20:30: Creatinine 1.06, INR Comment 1.6H, Platelet Count 155, Total Bilirubin 1.3H Results/Orders Lab Results Laboratory Tests Test 02/11/19 20:30 02/11/19 20:44 Range/Units White Blood Count 8.0 4.3-11.0 10^3/uL Red Blood Count 4.47 4.35-5.85 10^6/uL Hemoglobin 14.0 11.5-16.0 G/DL Hematocrit 45 35-52 % Mean Corpuscular Volume 100 H 80-99 FL Mean Corpuscular Hemoglobin 31 25-34 PG Mean Corpuscular Hemoglobin Concent 32 32-36 G/DL Red Cell Distribution Width 14.3 10.0-14.5 % Platelet Count 155 130-400 10^3/uL Mean Platelet Volume 9.8 7.4-10.4 FL Neutrophils (%) (Auto) 64 42-75 % Lymphocytes (%) (Auto) 23 12-44 % Monocytes (%) (Auto) 11 0-12 % Eosinophils (%) (Auto) 1 0-10 % Basophils (%) (Auto) 0 0-10 % Neutrophils # (Auto) 5.2 1.8-7.8 X 10^3 Lymphocytes # (Auto) 1.9 1.0-4.0 X 10^3 Monocytes # (Auto) 0.9 0.0-1.0 X 10^3 Eosinophils # (Auto) 0.1 0.0-0.3 10^3/uL Basophils # (Auto) 0.0 0.0-0.1 10^3/uL Prothrombin Time 20.1 H 12.2-14.7 SEC INR Comment 1.6 H 0.8-1.4 Activated Partial Thromboplast Time 37 H 24-35 SEC Sodium Level 135 135-145 MMOL/L Potassium Level 4.1 3.6-5.0 MMOL/L Chloride Level 97 L 98-107 MMOL/L Carbon Dioxide Level 22 21-32 MMOL/L Anion Gap 16 H 5-14 MMOL/L Blood Urea Nitrogen 13 7-18 MG/DL Creatinine 1.06 0.60-1.30 MG/DL Estimat Glomerular Filtration Rate 50 BUN/Creatinine Ratio 12 Glucose Level 98 70-105 MG/DL Calcium Level 10.2 H 8.5-10.1 MG/DL Corrected Calcium 9.9 8.5-10.1 MG/DL Magnesium Level 2.5 H 1.8-2.4 MG/DL Total Bilirubin 1.3 H 0.1-1.0 MG/DL Aspartate Amino Transf (AST/SGOT) 144 H 5-34 U/L Alanine Aminotransferase (ALT/SGPT) 203 H 0-55 U/L Alkaline Phosphatase 139 H 40-136 U/L Troponin I < 0.028 <0.028 NG/ML C-Reactive Protein High Sensitivity 2.11 H 0.00-0.50 MG/DL Total Protein 7.7 6.4-8.2 GM/DL Albumin 4.4 3.2-4.5 GM/DL Urine Color YELLOW Urine Clarity CLEAR Urine pH 6 5-9 Urine Specific [place] 1.015 L 1.016-1.022 Urine Protein NEGATIVE NEGATIVE Urine Glucose (UA) NEGATIVE NEGATIVE Urine Ketones NEGATIVE NEGATIVE Urine Nitrite NEGATIVE NEGATIVE Urine Bilirubin NEGATIVE NEGATIVE Urine Urobilinogen 1 NORMAL MG/DL Urine Leukocyte Esterase NEGATIVE NEGATIVE Urine RBC (Auto) NEGATIVE NEGATIVE Urine RBC NONE /HPF Urine WBC NONE /HPF Urine Squamous Epithelial Cells RARE /HPF Urine Crystals NONE /LPF Urine Bacteria NEGATIVE /HPF Urine Casts NONE /LPF Urine Mucus NEGATIVE /LPF Urine Culture Indicated NO Micro Results Microbiology 02/11/19 Influenza Types A,B Antigen ([facility]) - Final, Complete My Orders Orders - KEVIN MCCULLOUGH MD Ed Iv/Invasive Line Start (02/11/19 20:22) Ns Iv 1000 Ml (Sodium Chloride 0.9%) (02/11/19 20:22) Chest 1 View, Ap/Pa Only (02/11/19 20:22) Ct Head/Cervical Spine Wo (02/11/19 20:22) Ct Thoracic/Lumbar Spine Wo (02/11/19 20:22) Cbc With Automated Diff (02/11/19 20:22) Comprehensive Metabolic Panel (02/11/19 20:22) Hs C Reactive Protein (02/11/19 20:22) Magnesium (02/11/19 20:22) Protime With Inr (02/11/19 20:22) Partial Thromboplastin Time (02/11/19 20:22) Troponin I (02/11/19 20:22) Ua Culture If Indicated (02/11/19 20:22) Influenza A And B Antigens (02/11/19 20:22) Ekg Tracing (02/11/19 20:22) Monitor-Rhythm Ecg Trace Only (02/11/19 20:22) Catheter(Urinary) Insert & Ass 03,15 (02/11/19 21:45) Medications Given in ED Current Medications Medications Dose Ordered Sig/Reyna Route Start Time Stop Time Status Last Admin Dose Admin Sodium Chloride 1,000 ml @ 0 mls/hr Q0M ONCE IV 02/11/19 20:22 02/11/19 20:26 DC 02/11/19 20:44 1,000 MLS/HR Vital Signs/I&O 02/11/19 20:14 Temp 98.0 Pulse 96 Resp 12 B/P (MAP) 129/66 (87) Pulse Ox 99 O2 Delivery Room Air Capillary Refill : Progress Note : Progress Note Seen and evaluated. IV, labs, EKG, chest x-ray, CT head, neck, thoracic and lumbar spine ordered. Normal saline 1 L bolus. We will check UA as well. Monitor patient. 2229: Overall doing a little better. No significant acute findings. Patient does have slight elevation in her liver enzymes but has not been feeling well. No abdominal tenderness to indicate significant abnormality. I believe this is related to overall feeling poorly and rehydration over the last several days. CT scans do not show any acute findings and chest x-ray is negative for pneumonia as well as UA negative for UTI. I did discuss at length with the daughter and the patient regarding further evaluation and care. She has appointment with Dr. Phillips on Tuesday. I believe this point that she probably safe for discharge home with follow-up with the understanding that if things worsen that she will need to return for further evaluation. She will need recheck of her liver enzymes. We did discuss her CT results as well she does have some advanced degeneration in several areas. Diagnostic Imaging Diagonstic Imaging: Xray Plain Films/CT/US/NM/MRI: chest Comments NAME: [facility] REC#: [id number] PT STATUS: REG ER : 1940 PHYSICIAN: KEVIN MCCULLOUGH MD ADMIT DATE: 02/11/19/ER Signed Date of Exam: 02/11/19 CHEST 1 VIEW, AP/PA ONLY EXAMINATION: Portable chest INDICATION: Weakness and dizziness Comparison is made to the prior study from 11/14/2017. FINDINGS: There are mild chronic interstitial changes present within the lungs. There is no focal infiltrate or consolidation. There is some minimal atelectasis at the right base. There is no effusion. There is no pneumothorax. Heart size is mildly prominent without current failure. There is no acute or suspicious osseous abnormality. IMPRESSION: 1. Minimal right base atelectasis but the lungs otherwise clear. There are stable mild interstitial changes. There is no effusion or evidence of edema or failure. Dictated by: Dictated on workstation # [id number] Dict: 02/11/192044 Trans: 02/11/192129 Interpreted by: RAFAELA SHARIF MD Electronically signed by: RAFAELA SHARIF MD 02/11/192129 Diagonstic Imaging: CT Plain Films/CT/US/NM/MRI: other Comments NAME: [facility] REC#: [id number] PT STATUS: REG ER : 1940 PHYSICIAN: KEVIN MCCULLOUGH MD ADMIT DATE: 02/11/19/ER Signed Date of Exam: 02/11/19 CT THORACIC/LUMBAR SPINE WO PROCEDURE: CT thoracic and lumbar spine without contrast. TECHNIQUE: Multiple contiguous axial images were obtained through the thoracic and lumbar spine without the use of intravenous contrast. Sagittal and coronal reformations were then performed. DATE: February 11, 2019. INDICATION: 78-year-old female, weakness and mid and lower back pain. COMPARISON: MRI lumbar spine, March 24, 2007. FINDINGS: There is grade 1 anterolisthesis of L3 on L4 relating to facet degenerative changes. The additional alignment of the thoracic and lumbar spine is unremarkable. There are concavities of the endplates of C7, C5, T1, T2, T3 and T4 which may reflect Schmorl's nodes. There is no clearly identified fracture line. There is no abnormal vertebral body retropulsion. There is no identified acute fracture of the thoracic or lumbar spine. At T9 and T10, there are areas of ossification along the posterior longitudinal ligament and also projecting in the region of the right lateral recess. There is severe narrowing of the right lateral recess at T8-T9. There is at least mild bony spinal stenosis at this level. CT is limited for assessment of disc pathology as well as additional nonbloody causes of foraminal and spinal stenosis. There are multilevel advanced disc degenerative changes of the thoracolumbar spine and multilevel facet degenerative changes of the lumbar spine. The sacroiliac joints are grossly unremarkable in appearance. At L3-L4, there does appear to be a diffuse disc bulge with facet degenerative changes and ligamentum flavum hypertrophy causing severe spinal stenosis. There is at least mild to moderate bilateral foraminal narrowing at this level. At L4-L5, there is large diffuse disc bulge with facet degenerative changes and ligamentum flavum hypertrophy causing severe spinal stenosis and moderate right and mild left foraminal stenosis. At L5-S1, there is broad-based posterior disc protrusion with mild spinal stenosis. There are atherosclerotic calcifications. There is a small right and a small left pleural effusion. There is a small hiatal hernia. There is a small-volume ascites. IMPRESSION: 1. No identified acute fracture of the thoracic or lumbar spine. 2. Thoracic and lumbar spine degenerative changes, as described above. There are limitations of CT for assessment of disc pathology as well as nonionic causes of foraminal and spinal stenosis. There are areas of suspected high-grade foraminal and spinal stenosis, as described above. 3. Small bilateral pleural effusions and very small volume ascites. Dictated by: Dictated on workstation # [id number] Dict: 02/11/192133 Trans: 02/11/192151 Interpreted by: TAM RICO MD Electronically signed by: TAM RICO MD 02/11/192151 Diagonstic Imaging: CT Plain Films/CT/US/NM/MRI: c-spine, head Comments NAME: [facility] REC#: [id number] PT STATUS: REG ER : 1940 PHYSICIAN: KEVIN MCCULLOUGH MD ADMIT DATE: 02/11/19/ER Signed Date of Exam: 02/11/19 CT HEAD/CERVICAL SPINE WO PROCEDURE: CT head and CT cervical spine without contrast. TECHNIQUE: Multiple contiguous axial images were obtained through the brain and cervical spine without the use of intravenous contrast. Sagittal and coronal reformations through the cervical spine were then performed. Auto Exposure Controls were utilized during the CT exam to meet ALARA standards for radiation dose reduction. INDICATION: Weakness and neck pain. No relevant comparison available. FINDINGS: The CT of the head demonstrates no evidence of acute intracranial hemorrhage. There are degenerative calcifications within the basal ganglia. There is age-related global volume loss. There are some mild microvascular changes within white matter but no findings of territorial loss of acharya-white differentiation to suggest acute ischemia. There is no abnormal low density within the basal ganglia or within the katheryn. There is no hydrocephalus. There is no abnormal extra-axial collection. The basilar cisterns are patent. The mastoid air cells appear clear. There are no air-fluid levels in the paranasal sinuses or evidence of significant mucosal thickening. Orbital contents unremarkable. There is no acute calvarial abnormality. Cervical spine demonstrates normal alignment. There is maintenance of normal relationship of the craniocervical junction with normal relationship of lateral masses of C1 and C2. The facets are normally aligned. There is no facet joint or disc space widening. The vertebral body heights are maintained without evidence of an acute cervical spine fracture. 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 There are multilevel endplate changes as well as facet arthropathy. By CT imaging, there are no findings of high-grade central canal stenosis. The lung apices appear clear. Soft tissue of the neck demonstrate carotid calcifications. There is no acute soft tissue abnormality. IMPRESSION: 1. Age-related global volume loss with mild microvascular changes within the white matter. There are no CT findings of an acute intracranial abnormality. 2. Cervical degenerative disc disease and facet arthropathy without CT findings of traumatic malalignment, acute fracture or findings to suggest high-grade canal stenosis. Dictated by: Dictated on workstation # [id number] Dict: 02/11/192130 Trans: 02/11/192143 Interpreted by: RAFAELA SHARIF MD Electronically signed by: RAFAELA SHARIF MD 02/11/192143 Departure Impression Primary Impression: Weakness Additional Impressions: Dehydration Falls Qualified Codes: W19.XXXA - Unspecified fall, initial encounter Thoracic back pain Qualified Codes: M54.6 - Pain in thoracic spine Elevated liver enzymes Disposition: 01 HOME, SELF-CARE Condition: Stable Departure-Patient Inst. Decision time for Depature: 22:42 Referrals: FRANCESCO PHILLIPS MD (PCP/Family) Primary Care Physician Patient Instructions: Dehydration, Adult (DC), Generalized Weakness, Upper Back Pain Add. Discharge Instructions: Keep appointment with Dr. Phillips on Tuesday as scheduled. Discussed with him regarding today's visit. Drink plenty of fluids and try to eat a normal diet. Continue home medications as previously prescribed. You should use your walker over the next several days to help ensure that you get good balance and prevent falls. Return for worse pain, fever, vomiting, weakness, breathing problems or other concerns as needed. Your liver enzymes are slightly elevated today and this may need to be rechecked. You can discuss this with your doctor on Tuesday during the appointment. Copy Copies To 1: FRANCESCO PHILLIPS MD, TIMOTHY D MD Feb 11, 2019 20:31
[2019-02-11 20:39] LABS: BASOPHILS % (AUTO) 0 % (0-10); EOSINOPHILS # (AUTO) 0.1 10^3/uL (0.0-0.3); EOSINOPHILS % (AUTO) 1 % (0-10); HEMATOCRIT 45 % (35-52); LYMPHOCYTES # (AUTO) 1.9 X 10^3 (1.0-4.0); LYMPHOCYTES % (AUTO) 23 % (12-44); MEAN CORPUSCULAR HEMOGLOBIN 31 PG (25-34); MEAN CORPUSCULAR HGB CONC 32 G/DL (32-36); MEAN CORPUSCULAR VOLUME 100 FL (80-99); MEAN PLATELET VOLUME 9.8 FL (7.4-10.4); MONOCYTES # (AUTO) 0.9 X 10^3 (0.0-1.0); MONOCYTES % (AUTO) 11 % (0-12); NEUTROPHILS # (AUTO) 5.2 X 10^3 (1.8-7.8); NEUTROPHILS % (AUTO) 64 % (42-75); PLATELET COUNT 155 10^3/uL (130-400); RED CELL DISTRIBUTION WIDTH 14.3 % (10.0-14.5)
--- OUTSIDE RECORDS SUMMARY | 2019-02-11 20:48 | XMS REPORT | Continuity of Care Document ---
Author Organization Unknown Address Unknown Allergies Active Description Code Type Severity Reaction Onset Reported/Identified Relationship to Patient Clinical Status Yes TAPE TAPE Unknown RASH 08/12/2008 Yes morphine Drug Allergy N/A N/A 11/22/2008 Yes morphine Drug Allergy 11/22/2008 Yes morphine [id number] Drug Allergy Unknown N/V 12/03/2009 Yes Tape Adhesive OA N/A N/A 12/16/2011 Yes Tape Adhesive OA 12/16/2011 Yes morphine [id number] Drug Allergy Mild N/V 01/22/2019 Yes TAPE TAPE Mild RASH 01/22/2019 Yes cyclobenzaprine [id number] Drug Allergy Unknown N/A 01/22/2019 Medications There [...] PHILLIPS MD 300.00 An Anxiety Unspec 05/15/2008 MARILY HANLEY DOEN F 296.30 MAJOR DEPRESSIVE AFFECTIVE DISORDER RECURRENT EPISODE UNSPECIFIED DEGREE 05/15/2008 ELAINE HANLEY DO F 300.00 An Anxiety Unspec 05/15/2008 FRANCESCO PHILLIPS MD 296.30 MAJOR DEPRESSIVE AFFECTIVE DISORDER RECURRENT EPISODE UNSPECIFIED DEGREE 05/15/2008 FRANCESCO PHILLIPS MD 300.00 An Anxiety Unspec 05/15/2008 DAMIÁN STEEN APRN 296.30 MAJOR DEPRESSIVE AFFECTIVE DISORDER RECURRENT EPISODE UNSPECIFIED DEGREE 05/15/2008 DAMIÁN STEEN APRN 300.00 An Anxiety Unspec 05/15/2008 DREA ORTEGA DDSON J 296.30 MAJOR DEPRESSIVE AFFECTIVE DISORDER RECURRENT EPISODE UNSPECIFIED DEGREE 05/15/2008 DREA ORTEGA DDSON J 300.00 An Anxiety Unspec 05/15/2008 FRANCESCO PHILLIPS [...] DISORDER RECURRENT EPISODE UNSPECIFIED DEGREE 05/15/2008 ALEX ORACLE FUSION CONSULTANT, ANASTASIYA 300.00 An Anxiety Unspec 05/20/2008 ELAINE HANLEY DO F 296.32 Major [...] ADJ D/O NOS 07/16/2008 DAYAN CLAYTON ELAINE Blake 311 MO DEPRESSIVE DISORDER NOS 07/16/2008 NAEYANG ELAINE Blake 309.9 AD ADJ D/O NOS 07/16/2008 DAYAN CLAYTON ELAIEN Blake 311 MO DEPRESSIVE DISORDER NOS 07/16/2008 309.9 AD ADJ D/O NOS 07/16/2008 311 MO DEPRESSIVE DISORDER NOS 07/16/2008 309.9 AD ADJ D/O NOS 07/16/2008 311 MO DEPRESSIVE DISORDER NOS 07/16/2008 309.9 AD ADJ D/O NOS 07/16/2008 311 MO DEPRESSIVE DISORDER NOS 07/16/2008 FRANCESCO PHILLIPS MD 309.9 AD ADJ D/O NOS 07/16/2008 FRANCESCO PHILLIPS MD 311 MO DEPRESSIVE DISORDER NOS 07/16/2008 DAYAN CLAYTON ELAINE Blake 309.9 AD ADJ D/O NOS 07/16/2008 DAYAN CLAYTON ELAINE Hayden 311 MO DEPRESSIVE DISORDER NOS 07/16/2008 FRANCESCO [...] 311 MO DEPRESSIVE DISORDER NOS 07/16/2008 ALEX ORACLE FUSION CONSULTANT, ANASTASIYA 309.9 AD ADJ D/O NOS 07/16/2008 ALEX PETER, ANASTASIYA 311 MO DEPRESSIVE DISORDER NOS 09/25/2008 ELAINE HANLEY DO 307.47 SI DYSSOMNIA NOS 09/25/2008 ELAINE HANLEY DO F 307.47 SI DYSSOMNIA NOS 09/25/2008 307.47 SI DYSSOMNIA NOS 09/25/2008 307.47 SI DYSSOMNIA NOS 09/25/2008 ELAINE HANLEY DO F 307.47 SI DYSSOMNIA NOS 09/25/2008 ELAINE HANLEY DO 307.47 SI DYSSOMNIA NOS 09/25/2008 307.47 SI DYSSOMNIA NOS 09/25/2008 307.47 SI DYSSOMNIA NOS 09/25/2008 307.47 SI DYSSOMNIA NOS 09/25/2008 FRANCESCO PHILLIPS MD 307.47 SI DYSSOMNIA NOS 09/25/2008 ELAINE HANLEY DO 307.47 SI DYSSOMNIA NOS 09/25/2008 FRANCESCO PHILLIPS MD 307.47 SI DYSSOMNIA NOS 09/25/2008 DAMIÁN STEEN APRN 307.47 SI DYSSOMNIA NOS 09/25/2008 SHANNON IRWIN, SACHA Granados 307.47 SI DYSSOMNIA NOS 09/25/2008 FRANCESCO PHILLIPS MD 307.47 SI DYSSOMNIA NOS 09/25/2008 FRANCESCO PHILLIPS MD 307.47 SI DYSSOMNIA NOS 09/25/2008 DAMIÁN STEEN APRN 307.47 SI DYSSOMNIA NOS 09/25/2008 ANASTASIYA JOHNSON APRN 307.47 SI DYSSOMNIA NOS 09/25/2008 FRANCESCO PHILLIPS MD 307.47 SI DYSSOMNIA NOS 09/25/2008 ANASTASIYA JOHNSON APRN 307.47 SI DYSSOMNIA NOS 10/02/2008 ELAINE HANLEY DO F V58.69 Taking High-risk Medication 10/02/2008 ELAINE HANLEY DO V58.69 Taking High-risk Medication 10/02/2008 V58.69 Taking High- risk Medication 10/02/2008 V58.69 Taking High- risk Medication 10/02/2008 ELAINE HANLEY DO F V58.69 Taking High-risk Medication 10/02/2008 ELAINE HANLEY DO F V58.69 Taking High-risk Medication 10/02/2008 V58.69 Taking High- risk Medication 10/02/2008 V58.69 Taking High- risk Medication 10/02/2008 V58.69 Taking High- risk Medication 10/02/2008 FRANCESCO PHILLIPS MD V58.69 Taking High-risk Medication 10/02/2008 ELAINE HANLEY DO V58.69 Taking High-risk Medication 10/02/2008 FRANCESCO PHILLIPS MD V58.69 Taking High-risk Medication 10/02/2008 CELSA PETER DAMIÁN ODILON V58.69 Taking High-risk Medication 10/02/2008 SHANNON BAZANSSACHA V58.69 Taking High-risk Medication 10/02/2008 FRANCESCO PHILLIPS MD V58.69 Taking High-risk Medication 10/02/2008 FRANCESCO PHILLIPS MD V58.69 Taking High-risk Medication 10/02/2008 CELSA PETER DAMIÁN DONALD V58.69 Taking High-risk Medication 10/02/2008 ANASTASIYA JOHNSON APRN V58.69 Taking High-risk Medication 10/02/2008 FRANCESCO PHILLIPS MD V58.69 Taking High-risk Medication 10/02/2008 ANASTASIYA JOHNSON APRN V58.69 Taking High-risk Medication 10/05/2008 ELAINE HANLEY DO F 790.29 Prediabetes 10/05/2008 ELAINE HANLEY DO 790.29 Prediabetes 10/05/2008 790.29 Prediabetes 10/05/2008 790.29 Prediabetes 10/05/2008 ELAINE HANLEY DO F 790.29 Prediabetes 10/05/2008 ELAINE HANLEY DO 790.29 Prediabetes 10/05/2008 790.29 Prediabetes 10/05/2008 790.29 Prediabetes 10/05/2008 790.29 Prediabetes 10/05/2008 FRANCESCO PHILLIPS MD 790.29 Prediabetes 10/05/2008 ELAINE HANLEY DO 790.29 Prediabetes 10/05/2008 FRANCESCO PHILLIPS MD 790.29 Prediabetes 10/05/2008 CELSA PETER, DAMINÁ DONALD 790.29 Prediabetes 10/05/2008 WHITE DDS, SACHA Granados 790.29 Prediabetes 10/05/2008 FRANCESCO PHILLIPS MD 790.29 Prediabetes 10/05/2008 FRANCESCO PHILLIPS MD 790.29 Prediabetes 10/05/2008 CELSA PETER, DAMIÁN DONALD 790.29 Prediabetes 10/05/2008 ALEXLANDY PETER, ANASTASIYA 790.29 Prediabetes 10/05/2008 FRANCESCO PHILLIPS MD 790.29 Prediabetes 10/05/2008 ALEX ORACLE FUSION CONSULTANT, ANASTASIYA 790.29 Prediabetes 10/15/2008 ELAINE HANLEY DO [...] Adverse Effects In Therapeutic Use 10/15/2008 WHITE HORTENSIAS, SACHA J 995.20 Unspecified Adverse Effect Of Unspecified Drug Medicinal And Biological Substance 10/15/2008 WHITE HORTENSIAS, SACHA J E939.9 Unspecified Psychotropic Agent Causing [...] In Therapeutic Use 10/15/2008 CELSA PETER DAMIÁN DONALD 995.20 Unspecified Adverse Effect Of Unspecified Drug [...] Unspecified Drug Medicinal And Biological Substance 10/15/2008 ANASTASIYA JOHNSON APRN E939.9 Unspecified Psychotropic Agent Causing Adverse [...] 01/23/2009 ALAN HA, FRANCESCO 786.2 Cough 01/23/2009 ELAINE HANLEY DO 530.11 ESOPHAGITIS CHRONIC REFLUX 01/23/2009 ELAINE HANLEY DO F 786.2 Cough 01/23/2009 ALAN HA, FRANCESCO 530.11 ESOPHAGITIS CHRONIC REFLUX 01/23/2009 ALAN HA, FRANCESCO 786.2 Cough 01/23/2009 CELSA PETER, DAMIÁN DONALD 530.11 ESOPHAGITIS CHRONIC REFLUX 01/23/2009 CELSA PETER, DAMIÁN DONALD 786.2 Cough 01/23/2009 WHITE DDS, SACHA J 530.11 ESOPHAGITIS CHRONIC REFLUX 01/23/2009 WHITE DDS, SACHA J 786.2 Cough 01/23/2009 FRANCESCO PHILLIPS MD 530.11 ESOPHAGITIS CHRONIC REFLUX 01/23/2009 FRANCESCO PHILLIPS MD 786.2 Cough 01/23/2009 ALAN HA, FRANCESCO 530.11 ESOPHAGITIS CHRONIC REFLUX 01/23/2009 FRANCESCO PHILLIPS MD 786.2 Cough 01/23/2009 CELSA PETER, DAMIÁN DONALD 530.11 ESOPHAGITIS CHRONIC REFLUX 01/23/2009 CELSA PETER, DAMIÁN DONALD 786.2 Cough 01/23/2009 ANASTASIYA JOHNSON APRN 530.11 ESOPHAGITIS CHRONIC REFLUX 01/23/2009 ANASTASIYA JOHNSON APRN 786.2 Cough 01/23/2009 FRANCESCO PHILLIPS MD 530.11 ESOPHAGITIS CHRONIC REFLUX 01/23/2009 FRANCESCO PHILLIPS MD 786.2 Cough 01/23/2009 ANASTASIYA JOHNSON APRN 530.11 ESOPHAGITIS CHRONIC REFLUX 01/23/2009 ANASTASIYA JOHNSON APRN 786.2 Cough 01/27/2009 ELAINE HANLEY DO 465.9 [...] HA, FRANCESCO 465.9 Upper Respiratory Infection 01/27/2009 LEAINE HANLEY DO 465.9 Upper Respiratory Infection 01/27/2009 FRANCESCO PHILLIPS MD 465.9 Upper Respiratory Infection 01/27/2009 STEEN ORACLE FUSION CONSULTANT, DAMIÁN DONALD 465.9 Upper Respiratory Infection 01/27/2009 WHITE DDS, SACHA J 465.9 Upper Respiratory Infection 01/27/2009 FRANCESCO PHILLIPS MD 465.9 Upper Respiratory Infection 01/27/2009 FRANCESCO PHILLIPS MD 465.9 Upper Respiratory Infection 01/27/2009 STEEN ORACLE FUSION CONSULTANT, DAMIÁN DONALD 465.9 Upper Respiratory Infection 01/27/2009 ALEX ORACLE FUSION CONSULTANT, ANASTASIYA 465.9 Upper Respiratory Infection 01/27/2009 FRANCESCO PHILLIPS MD 465.9 Upper Respiratory Infection 01/27/2009 ALEX ORACLE FUSION CONSULTANT, ANASTASIYA 465.9 Upper Respiratory Infection 02/25/2009 ELAINE [...] RECURRENT IN PART OR UNSPECIFIED REMISSION 02/25/2009 SHANNON DDSSACHA J 300.02 AN GEN ANXIETY 02/25/2009 FRANCESCO [...] E887 Fracture Cause Unspecified 03/24/2009 FRANCESCO PHILLIPS MD.00 Constipation Chronic 03/24/2009 FRANCESCO PHILLIPS MD E887 Fracture Cause Unspecified 03/24/2009 DAMIÁN STEEN APRN 564.00 Constipation Chronic 03/24/2009 DAMIÁN STEEN APRN E887 Fracture Cause Unspecified 03/24/2009 SHANNON BAZANS, SACHA J 564.00 Constipation Chronic 03/24/2009 SHANNON BAZANSSACHA J E887 Fracture Cause Unspecified 03/24/2009 FRANCESCO [...] PHILLIPS MD E887 Fracture Cause Unspecified 03/24/2009 ALEX PETER, ANASTASIYA 564.00 Constipation Chronic 03/24/2009 ALEX PETER, ANASTASIYA E887 Fracture Cause Unspecified 04/03/2009 ELAINE HANLEY DO 271.9 GLUCOSE INTOLERANCE 04/03/2009 ELAINE HANLEY DO [...] IV 04/07/2009 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 04/07/2009 ALEX ORACLE FUSION CONSULTANT, ANASTASIYA 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 04/07/2009 ALEX ORACLE FUSION CONSULTANT, ANASTASIYA 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 04/08/2009 ELAINE HANLEY DO F 272.4 HYPERLIPIDEMIA 04/08/2009 DAYAN CLAYTON ELAINE F 727.03 Trigger Finger Of Right Ring Finger 04/08/2009 DAYAN CLAYTON ELAINE F 272.4 HYPERLIPIDEMIA 04/08/2009 DAYAN CLAYTON ELAINE F 727.03 Trigger Finger Of Right Ring Finger 04/08/2009 272.4 HYPERLIPIDEMIA 04/08/2009 727.03 Trigger Finger Of Right Ring Finger 04/08/2009 272.4 HYPERLIPIDEMIA 04/08/2009 727.03 Trigger Finger Of Right Ring Finger 04/08/2009 DAYAN CLAYTON ELAINE F 272.4 HYPERLIPIDEMIA 04/08/2009 NAEDER DO ELAINE F 727.03 Trigger Finger Of Right Ring Finger 04/08/2009 NAEDER DO ELAINE F 272.4 HYPERLIPIDEMIA 04/08/2009 DAYAN CLAYTON ELAINE F 727.03 Trigger Finger Of Right Ring [...] F 272.4 HYPERLIPIDEMIA 04/08/2009 ELAINE HANLEY DO 727.03 [...] Finger Of Right Ring Finger 04/08/2009 ALEX ORACLE FUSION CONSULTANT, ANASTASIYA 272.4 HYPERLIPIDEMIA 04/08/2009 ALEX ORACLE FUSION CONSULTANT, ANASTASIYA 727.03 Trigger Finger Of Right Ring Finger 04/08/2009 FRANCESCO PHILLIPS MD 272.4 HYPERLIPIDEMIA 04/08/2009 FRANCESCO PHILLIPS MD 727.03 Trigger Finger Of Right Ring Finger 04/08/2009 ALEX ORACLE FUSION CONSULTANT, ANASTASIYA 272.4 HYPERLIPIDEMIA 04/08/2009 ALEX ORACLE FUSION CONSULTANT, ANASTASIYA 727.03 Trigger Finger Of Right Ring [...] Exam Prior To General Surgery 05/16/2009 DAYAN DOELAINE F 785.2 Murmurs, Undiagnosed Cardiac 05/16/2009 ELAINE HANLEY DO F V72.83 Visit For: Pre-procedural Exam Prior To General Surgery 05/16/2009 NAEMORALES DOELAINE F 785.2 Murmurs, Undiagnosed Cardiac 05/16/2009 DAYAN DOELAINE F V72.83 Visit For: Pre-procedural Exam Prior [...] Exam Prior To General Surgery 05/16/2009 CELSA PETER DAMIÁN ODILON 785.2 Murmurs, Undiagnosed Cardiac 05/16/2009 CELSA PETER [...] DONALD 785.2 Murmurs, Undiagnosed Cardiac 05/16/2009 CELSA PETER [...] JOHNSON APRN 785.2 Murmurs, Undiagnosed Cardiac 05/16/2009 ANASTASIYA JOHNSON APRN V72.83 Visit For: Pre-procedural Exam Prior [...] STEEN BRITTANI, DAMIÁN DONALD 787.02 Nausea 07/11/2009 ALEX ORACLE FUSION CONSULTANT, ANASTASIYA 787.02 Nausea 07/11/2009 FRANCESCO PHILLIPS MD 787.02 Nausea 07/11/2009 ALEX ORACLE FUSION CONSULTANT, ANASTASIYA 787.02 Nausea 08/14/2009 ELAINE HANLEY DO [...] PHILLIPS MD 698.9 Unspecified Pruritic Disorder 12/25/2009 ADMIÁN STEEN APRN 698.9 Unspecified Pruritic Disorder 12/25/2009 ALEX PETER, ANASTASIYA 698.9 Unspecified Pruritic Disorder 12/25/2009 FRANCESCO PHILLIPS MD 698.9 Unspecified Pruritic Disorder 12/25/2009 ALEX PETER, ANASTASIYA 698.9 Unspecified Pruritic Disorder 04/16/2010 NAEMORALES DO ELAINE F 455.6 Hemorrhoids Nos 04/16/2010 DAYAN CLAYTON ELAINE F V72.31 Merchandise Execution Leader Exam, Routine 04/16/2010 NAEMORALES DO ELAINE F 455.6 Hemorrhoids Nos 04/16/2010 DAYAN DO ELAINE Hayden V72.31 Merchandise Execution Leader Exam, Routine 04/16/2010 455.6 Hemorrhoids Nos 04/16/2010 V72.31 Merchandise Execution Leader Exam, Routine 04/16/2010 455.6 Hemorrhoids Nos 04/16/2010 V72.31 Merchandise Execution Leader Exam, Routine 04/16/2010 NAEDER DO ELAINE F 455.6 Hemorrhoids Nos 04/16/2010 DAYAN DO ELAINE F V72.31 Merchandise Execution Leader Exam, Routine 04/16/2010 NAEMORALES DO ELAINE F 455.6 Hemorrhoids Nos 04/16/2010 DAYAN CLAYTON LEAINE F V72.31 Merchandise Execution Leader Exam, Routine 04/16/2010 455.6 Hemorrhoids Nos 04/16/2010 V72.31 Merchandise Execution Leader Exam, Routine 04/16/2010 455.6 Hemorrhoids Nos 04/16/2010 V72.31 Merchandise Execution Leader Exam, Routine 04/16/2010 455.6 Hemorrhoids Nos 04/16/2010 V72.31 Merchandise Execution Leader Exam, Routine 04/16/2010 FRANCESCO PHILLIPS MD 455.6 Hemorrhoids Nos 04/16/2010 FRANCESCO PHILLIPS MD V72.31 Merchandise Execution Leader Exam, Routine 04/16/2010 ELAINE HANLEY DO F 455.6 Hemorrhoids Nos 04/16/2010 ELAINE HANLEY DO V72.31 Merchandise Execution Leader Exam, Routine 04/16/2010 FRANCESCO PHILLIPS MD 455.6 Hemorrhoids Nos 04/16/2010 FRANCESCO PHILLIPS MD V72.31 Merchandise Execution Leader Exam, Routine 04/16/2010 DAMIÁN STEEN APRN 455.6 Hemorrhoids Nos 04/16/2010 DAMIÁN STEEN APRN V72.31 Merchandise Execution Leader Exam, Routine 04/16/2010 WHITE DDSDREAON J 455.6 Hemorrhoids Nos 04/16/2010 WHITE DDS, SACHA J V72.31 Merchandise Execution Leader Exam, Routine 04/16/2010 FRANCESCO PHILLIPS MD 455.6 Hemorrhoids Nos 04/16/2010 FRANCESCO PHILLIPS MD V72.31 Merchandise Execution Leader Exam, Routine 04/16/2010 ALAN HA, FRANCESCO 455.6 Hemorrhoids Nos 04/16/2010 FRANCESCO PHILLIPS MD V72.31 Merchandise Execution Leader Exam, Routine 04/16/2010 STEEN ORACLE FUSION CONSULTANT, DAMIÁN DONALD 455.6 Hemorrhoids Nos 04/16/2010 STEEN ORACLE FUSION CONSULTANT, DAMIÁN DONALD V72.31 Merchandise Execution Leader Exam, Routine 04/16/2010 ALEX ORACLE FUSION CONSULTANT, ANASTASIYA 455.6 Hemorrhoids Nos 04/16/2010 ALEX ORACLE FUSION CONSULTANT, ANASTASIYA V72.31 Merchandise Execution Leader Exam, Routine 04/16/2010 FRANCESCO PHILLIPS MD 455.6 Hemorrhoids Nos 04/16/2010 FRANCESCO PHILLIPS MD V72.31 Merchandise Execution Leader Exam, Routine 04/16/2010 ALEX ORACLE FUSION CONSULTANT, ANASTASIYA 455.6 Hemorrhoids Nos 04/16/2010 ALEX ORACLE FUSION CONSULTANT, ANASTASIYA V72.31 Merchandise Execution Leader Exam, Routine 07/10/2010 Ot 719.41 07/10/2010 Ot [...] DO F V65.49 Other Specified Counseling 12/04/2010 MARILY HANLEY DOEN F V68.1 Issue Of Repeat Prescriptions 12/04/2010 [...] Of Repeat Prescriptions 12/04/2010 CELSA PETER DAMIÁN ODILON 780.4 Dizziness And Vertigo 12/04/2010 CELSA PETER DAMIÁN ODILON V65.49 Other Specified Counseling 12/04/2010 CELSA PETER DAMIÁN ODILON V68.1 Issue Of Repeat Prescriptions 12/04/2010 WHITE [...] DONALD 780.4 Dizziness And Vertigo 12/04/2010 STEEN ORACLE FUSION CONSULTANT, DAMIÁN DONALD V65.49 Other Specified Counseling 12/04/2010 STEEN ORACLE FUSION CONSULTANT, DAMIÁN DONALD V68.1 Issue Of Repeat Prescriptions 12/04/2010 ALEX ORACLE FUSION CONSULTANT, ANASTASIYA 780.4 Dizziness And Vertigo 12/04/2010 ALEX ORACLE FUSION CONSULTANT, ANASTASIYA V65.49 Other Specified Counseling 12/04/2010 ALEX ORACLE FUSION CONSULTANT, ANASTASIYA V68.1 Issue Of Repeat Prescriptions 12/04/2010 FRANCESCO PHILLIPS MD 780.4 Dizziness And Vertigo 12/04/2010 FRANCESCO PHILLIPS MD V65.49 Other Specified Counseling 12/04/2010 FRANCESCO PHILLIPS MD V68.1 Issue Of Repeat Prescriptions 12/04/2010 ALEX ORACLE FUSION CONSULTANT ANASTASIYA 780.4 Dizziness And Vertigo 12/04/2010 ALEX ORACLE FUSION CONSULTANT, ANASTASIYA V65.49 Other Specified Counseling 12/04/2010 ALEX ORACLE FUSION CONSULTANT, ANASTASIYA V68.1 Issue Of Repeat Prescriptions 03/02/2011 ELAINE HANLEY DO 786.05 Shortness Of Breath 03/02/2011 ELAINE HANLEY DO 786.05 Shortness Of Breath 03/02/2011 786.05 Shortness Of Breath 03/02/2011 786.05 Shortness Of Breath 03/02/2011 ELAINE HANLEY DO F 786.05 Shortness Of Breath 03/02/2011 ELAINE HANLEY DO F 786.05 Shortness Of Breath 03/02/2011 786.05 Shortness Of Breath 03/02/2011 786.05 Shortness Of Breath 03/02/2011 786.05 Shortness Of Breath 03/02/2011 FRANCESCO PHILLIPS MD 786.05 Shortness Of Breath 03/02/2011 ELAINE HANLEY DO 786.05 Shortness Of Breath 03/02/2011 FRANCESCO PHILLIPS MD 786.05 Shortness Of Breath 03/02/2011 CELSA PETER DAMIÁN DONALD 786.05 Shortness Of Breath 03/02/2011 SACHA ORTEGA DDS J 786.05 Shortness Of Breath 03/02/2011 FRANCESCO PHILLIPS MD 786.05 Shortness Of Breath 03/02/2011 FRANCESCO PHILLIPS MD 786.05 Shortness Of Breath 03/02/2011 CELSA PETER, DAMIÁN DONALD 786.05 Shortness Of Breath 03/02/2011 ALEX ORACLE FUSION CONSULTANT, ANASTASIYA 786.05 Shortness Of Breath 03/02/2011 FRANCESCO PHILLIPS MD 786.05 Shortness Of Breath 03/02/2011 ALEX ORACLE FUSION CONSULTANT, ANASTASIYA 786.05 Shortness Of Breath 2011 WERDER DO, ELAINE F 786.50 Chest Pain 2011 WERDER DO, ELAINE F 786.50 Chest Pain 2011 786.50 Chest Pain 2011 786.50 Chest Pain 2011 WERDER DO, ELAINE F 786.50 Chest Pain 2011 WERDER DO, ELAINE F 786.50 Chest Pain 2011 786.50 Chest Pain 2011 786.50 Chest Pain 2011 786.50 Chest Pain 2011 FRANCESCO PHILLIPS MD 786.50 Chest Pain 2011 DAYAN DO, ELAINE F 786.50 Chest Pain 2011 FRANCESCO [...] FRANCESCO PHILLIPS MD 786.50 Chest Pain 2011 ALEX PETER, ANASTASIYA 786.50 Chest Pain 03/06/2011 Ot 272.0 03/06/2011 Ot 272.4 03/06/2011 Ot 280.0 03/06/2011 Ot 296.80 03/06/2011 Ot 411.1 03/06/2011 Ot 414.01 03/06/2011 Ot 530.81 03/06/2011 Ot 564.00 03/06/2011 Ot 792.1 03/08/2011 Ot 272.4 03/08/2011 Ot 414.01 03/08/2011 Ot 786.50 03/08/2011 Ot V58.66 03/08/2011 Ot V58.69 03/24/2011 ELAINE HANLEY DO 285.9 ANEMIA 03/24/2011 ELAINE HANLEY DO F [...] DO F 780.79 MALAISE AND FATIGUE 03/24/2011 FRANCESCO PHILLIPS MD 285.9 ANEMIA 03/24/2011 FRANCESCO PHILLIPS MD 780.79 MALAISE AND FATIGUE 03/24/2011 DAMIÁN STEEN APRN 285.9 ANEMIA 03/24/2011 DAMIÁN STEEN APRN 780.79 MALAISE AND FATIGUE 03/24/2011 WHITE DDS, SACHA J 285.9 ANEMIA 03/24/2011 WHITE DDSSACHA J 780.79 MALAISE AND FATIGUE 03/24/2011 FRANCESCO PHILLIPS MD 285.9 ANEMIA 03/24/2011 FRANCESCO PHILLIPS MD 780.79 MALAISE AND FATIGUE 03/24/2011 FRANCESCO PHILLIPS MD 285.9 ANEMIA 03/24/2011 FRANCESCO PHILLIPS MD 780.79 MALAISE AND FATIGUE 03/24/2011 STEEN ORACLE FUSION CONSULTANT, DAMIÁN ODILON 285.9 ANEMIA 03/24/2011 STEEN ORACLE FUSION CONSULTANT, DAMIÁN ODILON 780.79 MALAISE AND FATIGUE 03/24/2011 ALEX ORACLE FUSION CONSULTANT, ANASTASIYA 285.9 ANEMIA 03/24/2011 ALEX ORACLE FUSION CONSULTANT, ANASTASIYA 780.79 MALAISE AND FATIGUE 03/24/2011 FRANCESCO PHILLIPS MD 285.9 ANEMIA 03/24/2011 FRANCESCO PHILLIPS MD 780.79 MALAISE AND FATIGUE 03/24/2011 ALEX ORACLE FUSION CONSULTANT, ANASTASIYA 285.9 ANEMIA 03/24/2011 ALEX ORACLE FUSION CONSULTANT, ANASTASIYA 780.79 MALAISE AND FATIGUE 05/12/2011 ELAINE HANLEY DO F 244.9 HYPOTHYROIDISM 05/12/2011 ELAINE HANLEY DO F 244.9 HYPOTHYROIDISM 05/12/2011 244.9 HYPOTHYROIDISM 05/12/2011 244.9 HYPOTHYROIDISM 05/12/2011 ELAINE HANLEY DO F 244.9 HYPOTHYROIDISM 05/12/2011 ELAINE HANLEY DO F 244.9 HYPOTHYROIDISM 05/12/2011 244.9 HYPOTHYROIDISM 05/12/2011 244.9 HYPOTHYROIDISM 05/12/2011 244.9 HYPOTHYROIDISM 05/12/2011 FRANCESCO PHILLIPS MD 244.9 HYPOTHYROIDISM 05/12/2011 ELAINE HANLEY DO F 244.9 HYPOTHYROIDISM 05/12/2011 FRANCESCO PHILLIPS MD 244.9 HYPOTHYROIDISM 05/12/2011 CELSA PETER, DAMIÁN DONALD 244.9 HYPOTHYROIDISM 05/12/2011 WHITE DDS, SACHA J 244.9 HYPOTHYROIDISM 05/12/2011 FRANCESCO PHILLIPS MD 244.9 HYPOTHYROIDISM 05/12/2011 FRANCESCO PHILLIPS MD 244.9 HYPOTHYROIDISM 05/12/2011 CELSA PETER, DAMIÁN DONALD 244.9 HYPOTHYROIDISM 05/12/2011 ALEX ORACLE FUSION CONSULTANT, ANASTASIYA 244.9 HYPOTHYROIDISM 05/12/2011 FRANCESCO PHILLIPS MD 244.9 HYPOTHYROIDISM 05/12/2011 ALEX ORACLE FUSION CONSULTANT, ANASTASIYA 244.9 HYPOTHYROIDISM 05/14/2011 WERDER DO, ELAINE F 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 05/14/2011 ELAINE HANLEY DO F 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 05/14/2011 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 05/14/2011 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 05/14/2011 ELAINE HANLEY DO 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 05/14/2011 ELAINE HANLEY DO 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 05/14/2011 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 05/14/2011 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 05/14/2011 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 05/14/2011 FRANCESCO PHILLIPS MD 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 05/14/2011 ELAINE HANLEY DO 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 05/14/2011 FRANCESCO PHILLIPS MD 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 05/14/2011 CELSA PETER, DAMIÁN ODILON 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 05/14/2011 SHANNON IRWIN, SACHA Granados 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 05/14/2011 FRANCESCO PHILLIPS MD 276.7 [...] SACHA ORTEGA DDS 373.00 Blepharitis Unspecified 06/25/2011 FRANCESCO PHILLIPS MD [...] JOHNSON APRN 578.1 Hematochezia 12/02/2011 FRANCESCO PHILLIPS MD8.1 Hematochezia 12/02/2011 ANASTASIYA JOHNSON APRN 578.1 Hematochezia [...] Nonspecific Abnormal Findings In Stool Contents 03/13/2012 DAYAN CLAYTON ELAINE Hayden V16.0 Family History Of Malignant Neoplasm Of [...] Malignant Neoplasm Of Gastrointestinal Tract 03/13/2012 WHITE DDSDREAON J 792.1 Nonspecific Abnormal Findings In Stool [...] STEEN BRITTANIDAMIÁN 300.00 AN ANXIETY UNSPEC 06/13/2012 ALEXANASTASIYA BILL APRN 300.00 AN ANXIETY UNSPEC 06/13/2012 FRANCESCO PHILLIPS MD 300.00 AN ANXIETY UNSPEC 06/13/2012 ANASTASIYA JOHNSON APRN 300.00 AN ANXIETY UNSPEC 01/26/2013 Ot 307.42 PERSISTENT INSOMNIA 10/14/2014 FRANCESCO PHILLIPS MD 848.9 UNSPECIFIED SITE OF SPRAIN AND STRAIN 10/14/2014 ANASTASIYA JOHNSON APRN 848.9 UNSPECIFIED SITE OF SPRAIN AND STRAIN 11/11/2015 Ot V72.84 12/09/2015 NEW, TOMY G. ENVIRONMENTAL MONITORING SPECIALIST-C Ot E03.9 12/09/2015 NEW, TOMY G. ENVIRONMENTAL MONITORING SPECIALIST-C Ot E78.5 12/09/2015 NEW, TOMY G. ENVIRONMENTAL MONITORING SPECIALIST-C Ot F32.9 12/09/2015 NEW, TOMY G. ENVIRONMENTAL MONITORING SPECIALIST-C Ot F41.9 12/09/2015 NEW, TOMY G. ENVIRONMENTAL MONITORING SPECIALIST-C Ot I13.10 12/09/2015 NEW, TOMY G. ENVIRONMENTAL MONITORING SPECIALIST-C Ot M19.90 12/09/2015 NEW, TOMY G. ENVIRONMENTAL MONITORING SPECIALIST-C Ot N18.3 12/09/2015 NEW, TOMY G. ENVIRONMENTAL MONITORING SPECIALIST-C Ot R80.9 12/11/2015 NEW, TOMY G. ENVIRONMENTAL MONITORING SPECIALIST-C Ot E03.9 12/11/2015 NEW, TOMY G. ENVIRONMENTAL MONITORING SPECIALIST-C Ot E78.5 12/11/2015 NEW, TOMY G. ENVIRONMENTAL MONITORING SPECIALIST-C Ot F32.9 12/11/2015 NEW, TOMY G. ENVIRONMENTAL MONITORING SPECIALIST-C Ot F41.9 12/11/2015 NEW, TOMY G. ENVIRONMENTAL MONITORING SPECIALIST-C Ot I13.10 12/11/2015 NEW, TOMY G. ENVIRONMENTAL MONITORING SPECIALIST-C Ot M19.90 12/11/2015 NEW, TOMY G. ENVIRONMENTAL MONITORING SPECIALIST-C Ot N18.3 12/11/2015 NEW, TOMY G. ENVIRONMENTAL MONITORING SPECIALIST-C Ot R80.9 04/15/2016 GRACIELA HA, SARA He[place] [...] I48.91 UNSPECIFIED ATRIAL FIBRILLATION 08/23/2016 KEVIN MCCULLOUGH MD Ot J90 PLEURAL EFFUSION, 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 08/23/2016 KEVIN MCCULLOUGH MD Ot R06.02 SHORTNESS OF BREATH 08/23/2016 KEVIN MCCULLOUGH MD Ot Z79.01 PENITENTIARY (CURRENT) USE OF 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 08/23/2016 KEVIN MCCULLOUGH MD Ot Z79.82 PENITENTIARY (CURRENT) USE OF ASPIRIN 08/23/2016 KEVIN MCCULLOUGH MD Ot Z79.899 OTHER SAFETY AND HEALTH CONSULTANT (CURRENT) DRUG THERAPY 08/24/2016 KEVIN MCCULLOUGH MD Ot I48.91 UNSPECIFIED ATRIAL FIBRILLATION 08/24/2016 KEVIN MCCULLOUGH MD Ot J90 PLEURAL EFFUSION, 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 08/24/2016 KEVIN MCCULLOUGH MD Ot R06.02 SHORTNESS OF BREATH 08/24/2016 KEVIN MCCULLOUGH MD Ot Z79.01 SAFETY AND HEALTH CONSULTANT (CURRENT) USE OF 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 08/24/2016 KEVIN MCCULLOUGH MD, Ot Z79.82 SAFETY AND HEALTH CONSULTANT (CURRENT) USE OF ASPIRIN 08/24/2016 KEVIN MCCULLOUGH MD, Ot Z79.899 OTHER PENITENTIARY (CURRENT) DRUG THERAPY 09/23/2016 JAN CRAIN MD, Ot I48.1 PERSISTENT ATRIAL FIBRILLATION 09/23/2016 JAN CRAIN MD, Ot I48.1 PERSISTENT ATRIAL FIBRILLATION 09/24/2016 JAN CRAIN MD, Ot Z79.01 SAFETY AND HEALTH CONSULTANT (CURRENT) USE OF 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 09/27/2016 JAN CRAIN MD, Ot I50.33 ACUTE ON CHRONIC DIASTOLIC (CONGESTIVE) 09/27/2016 JAN CRAIN MD, Ot Z79.01 SAFETY AND HEALTH CONSULTANT (CURRENT) USE OF 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 09/27/2016 Ot V72.84 EXAM PRE- OPERATIVE NOS 09/27/2016 TOMY HILARIO NP-C Ot E03.9 HYPOTHYROIDISM, UNSPECIFIED 09/27/2016 TOMY HILARIO NP-C Ot E78.5 HYPERLIPIDEMIA, UNSPECIFIED 09/27/2016 TOMY HILARIO NP-C Ot F32.9 MAJOR DEPRESSIVE DISORDER, SINGLE EPISOD 09/27/2016 TOMY HILARIO NP-C Ot F41.9 ANXIETY DISORDER, UNSPECIFIED 09/27/2016 TOMY HILARIO ENVIRONMENTAL MONITORING SPECIALIST-C Ot 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, W S 09/27/2016 TOMY HILARIO NP-C Ot M19.90 UNSPECIFIED OSTEOARTHRITIS, UNSPECIFIED 09/27/2016 TOMY HILARIO NP-C Ot N18.3 CHRONIC KIDNEY DISEASE, STAGE 3 (MODERAT 09/27/2016 TOMY HILARIO NP-C Ot R80.9 PROTEINURIA, UNSPECIFIED 09/27/2016 JAN CRAIN MD Ot I48.1 PERSISTENT ATRIAL FIBRILLATION 09/27/2016 JAN CRAIN MD, Ot I50.33 ACUTE ON CHRONIC DIASTOLIC (CONGESTIVE) 09/27/2016 JAN CRAIN MD, Ot Z79.01 PENITENTIARY (CURRENT) USE OF 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 09/28/2016 JAN CRAIN MD, Ot Z51.81 ENCOUNTER FOR THERAPEUTIC DRUG LEVEL MON 09/28/2016 JAN CRAIN MD L Ot Z79.01 PENITENTIARY (CURRENT) USE OF 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 09/28/2016 TOMY HILARIO ENVIRONMENTAL MONITORING SPECIALIST-C Ot D50.9 IRON DEFICIENCY ANEMIA, UNSPECIFIED 09/28/2016 NEWTOMY ENVIRONMENTAL MONITORING SPECIALIST-C Ot D63.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 09/28/2016 TOMY HILARIO ENVIRONMENTAL MONITORING SPECIALIST-C Ot N18.3 CHRONIC KIDNEY DISEASE, STAGE 3 (MODERAT 09/29/2016 TOMY HILARIO ENVIRONMENTAL MONITORING SPECIALIST-C Ot D50.9 IRON DEFICIENCY ANEMIA, UNSPECIFIED 09/29/2016 NEWTOMY ENVIRONMENTAL MONITORING SPECIALIST-C Ot D63.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 09/29/2016 NEWTOMY ENVIRONMENTAL MONITORING SPECIALIST-C Ot N18.3 CHRONIC KIDNEY DISEASE, STAGE 3 (MODERAT 10/01/2016 BREANN HA, JAN L Ot I48.91 UNSPECIFIED ATRIAL FIBRILLATION 10/01/2016 JAN CRAIN MD Ot I50.9 HEART FAILURE, UNSPECIFIED 10/01/2016 JAN CRAIN MD L Ot Z79.02 SAFETY AND HEALTH CONSULTANT (CURRENT) USE OF ANTITHROMBOTI 10/01/2016 JAN CRAIN MD L Ot Z79.899 OTHER PENITENTIARY (CURRENT) DRUG THERAPY 10/01/2016 TOMY HILARIO NP-C Ot D50.9 IRON DEFICIENCY ANEMIA, UNSPECIFIED 10/01/2016 TOMY HILARIO ENVIRONMENTAL MONITORING SPECIALIST-C Ot D63.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 10/01/2016 TOMY HILARIO NP-C Ot N18.3 CHRONIC KIDNEY DISEASE, STAGE 3 (MODERAT 10/01/2016 OTHER, UNLISTED Ot Z51.81 ENCOUNTER FOR THERAPEUTIC DRUG LEVEL MON 10/01/2016 OTHER, UNLISTED Ot Z79.01 SAFETY AND HEALTH CONSULTANT (CURRENT) USE OF 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 10/04/2016 TOMY HILARIO ENVIRONMENTAL MONITORING SPECIALIST-C Ot D50.9 IRON DEFICIENCY ANEMIA, UNSPECIFIED 10/04/2016 TOMY HILARIO ENVIRONMENTAL MONITORING SPECIALIST-C Ot D63.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 10/04/2016 TOMY HILARIO ENVIRONMENTAL MONITORING SPECIALIST-C Ot N18.3 CHRONIC KIDNEY DISEASE, STAGE 3 (MODERAT 10/06/2016 TOMY HILARIO ENVIRONMENTAL MONITORING SPECIALIST-C Ot D50.9 IRON DEFICIENCY ANEMIA, UNSPECIFIED 10/06/2016 TOMY HILARIO NP-Cristobal Ot D63.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 10/06/2016 TOMY HILARIO ENVIRONMENTAL MONITORING SPECIALIST-C Ot N18.3 CHRONIC KIDNEY DISEASE, STAGE 3 (MODERAT 10/11/2016 JAN CRAIN MD Ot Z51.81 ENCOUNTER FOR THERAPEUTIC DRUG LEVEL MON 10/11/2016 JAN CRAIN MD Ot Z79.01 PENITENTIARY (CURRENT) USE OF 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 10/12/2016 JAN CRAIN MD Ot Z51.81 ENCOUNTER FOR THERAPEUTIC DRUG LEVEL MON 10/12/2016 JAN CRAIN MD Ot Z79.01 SAFETY AND HEALTH CONSULTANT (CURRENT) USE OF 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 10/13/2016 JAN CRAIN MD Ot I48.1 PERSISTENT ATRIAL FIBRILLATION 10/14/2016 JAN CRAIN MD Ot Z79.01 SAFETY AND HEALTH CONSULTANT (CURRENT) USE OF 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 10/14/2016 JAN CRAIN MD Ot Z51.81 ENCOUNTER FOR THERAPEUTIC DRUG LEVEL MON 10/14/2016 JAN CRAIN MD Ot Z79.01 PENITENTIARY (CURRENT) USE OF 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 10/15/2016 JAN CRAIN MD Ot Z51.81 ENCOUNTER FOR THERAPEUTIC DRUG LEVEL MON 10/15/2016 JAN CRAIN MD Ot Z79.01 SAFETY AND HEALTH CONSULTANT (CURRENT) USE OF 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 10/21/2016 JAN CRAIN MD Ot I50.33 ACUTE ON CHRONIC DIASTOLIC (CONGESTIVE) 10/21/2016 JAN CRAIN MD Ot Z79.01 SAFETY AND HEALTH CONSULTANT (CURRENT) USE OF 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 10/21/2016 JAN CRAIN MD Ot Z51.81 ENCOUNTER FOR THERAPEUTIC DRUG LEVEL MON 10/21/2016 JAN CRAIN MD Ot Z79.01 PENITENTIARY (CURRENT) USE OF 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 10/22/2016 JAN CRAIN MD Ot I48.91 UNSPECIFIED ATRIAL FIBRILLATION 10/22/2016 JAN CRAIN MD Ot I48.91 UNSPECIFIED ATRIAL FIBRILLATION 10/22/2016 JAN CRAIN MD Ot I50.9 HEART FAILURE, UNSPECIFIED 10/22/2016 JAN CRAIN MD Ot Z79.02 PENITENTIARY (CURRENT) USE OF ANTITHROMBOTI 10/22/2016 JAN CRAIN MD Ot Z79.899 OTHER PENITENTIARY (CURRENT) DRUG THERAPY 10/22/2016 OTHER, UNLISTED Ot Z51.81 ENCOUNTER FOR THERAPEUTIC DRUG LEVEL MON 10/22/2016 OTHER, UNLISTED Ot Z79.01 SAFETY AND HEALTH CONSULTANT (CURRENT) USE OF 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 10/22/2016 JAN CRAIN MD Ot I48.91 UNSPECIFIED ATRIAL FIBRILLATION 10/22/2016 JAN CRAIN MD Ot Z79.01 PENITENTIARY (CURRENT) USE OF 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 10/28/2016 JAN CRAIN MD Ot Z51.81 ENCOUNTER FOR THERAPEUTIC DRUG LEVEL MON 10/28/2016 JAN CRAIN MD Ot Z79.01 SAFETY AND HEALTH CONSULTANT (CURRENT) USE OF 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 11/01/2016 JAN CRAIN MD L Ot Z51.81 ENCOUNTER FOR THERAPEUTIC DRUG LEVEL MON 11/01/2016 JAN CRAIN MD L Ot Z79.01 SAFETY AND HEALTH CONSULTANT (CURRENT) USE OF 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 11/01/2016 JAN CRAIN MD Ot Z51.81 ENCOUNTER FOR THERAPEUTIC DRUG LEVEL MON 11/01/2016 JAN CRAIN MD Ot Z79.01 SAFETY AND HEALTH CONSULTANT (CURRENT) USE OF 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 11/05/2016 JAN CRAIN MD Ot Z51.81 ENCOUNTER FOR THERAPEUTIC DRUG LEVEL MON 11/05/2016 JAN CRAIN MD Ot Z79.01 SAFETY AND HEALTH CONSULTANT (CURRENT) USE OF 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 11/11/2016 JAN CRAIN MD Ot I48.91 UNSPECIFIED ATRIAL FIBRILLATION 11/11/2016 JAN CRAIN MD Ot Z79.01 PENITENTIARY (CURRENT) USE OF 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 11/18/2016 JAN RCAIN MD Ot Z51.81 ENCOUNTER FOR THERAPEUTIC DRUG LEVEL MON 11/18/2016 JAN CRAIN MD Ot Z79.01 PENITENTIARY (CURRENT) USE OF 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 12/20/2016 TOMY HILARIO ENVIRONMENTAL MONITORING SPECIALIST-C Ot D50.9 IRON DEFICIENCY ANEMIA, UNSPECIFIED 12/20/2016 TOMY HILARIO ENVIRONMENTAL MONITORING SPECIALIST-C Ot D63.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 12/20/2016 TOMY HILARIO ENVIRONMENTAL MONITORING SPECIALIST-C Ot N18.3 CHRONIC KIDNEY DISEASE, STAGE 3 (MODERAT 12/23/2016 TOMY HILARIO ENVIRONMENTAL MONITORING SPECIALIST-C Ot D50.9 IRON DEFICIENCY ANEMIA, UNSPECIFIED 12/23/2016 TOMY HILARIO ENVIRONMENTAL MONITORING SPECIALIST-C Ot D63.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 12/23/2016 TOMY HILARIOBrian ENVIRONMENTAL MONITORING SPECIALIST-C Ot N18.3 CHRONIC KIDNEY DISEASE, STAGE 3 (MODERAT 12/26/2016 NEW, TOMY ErnstBrian ENVIRONMENTAL MONITORING SPECIALIST-C Ot D50.9 IRON DEFICIENCY ANEMIA, UNSPECIFIED 12/26/2016 NEW, TOMY ErnstBrian ENVIRONMENTAL MONITORING SPECIALIST-C Ot D63.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 12/26/2016 NEW, TOMY ErnstBrian ENVIRONMENTAL MONITORING SPECIALIST-C Ot N18.3 CHRONIC KIDNEY DISEASE, STAGE 3 (MODERAT 11/09/2017 IMTIAZ HA, BIN Escobedo Ot F31.9 BIPOLAR DISORDER, UNSPECIFIED 11/09/2017 BIN [...] Escobedo Ot Z66 DO NOT RESUSCITATE 11/09/2017 IMTIAZ HA, BIN Escobedo Ot Z79.01 SAFETY AND HEALTH CONSULTANT (CURRENT) USE OF 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 11/09/2017 BIN KITCHEN [...] Ot Y92.[address] [facility] 11/09/2017 IBN KITCHEN MD Ot Z66 DO NOT RESUSCITATE 11/09/2017 BIN KITCHEN MD Ot Z79.01 SAFETY AND HEALTH CONSULTANT (CURRENT) USE OF 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 11/09/2017 BIN KITCHEN [...] ELBOW, INITIAL ENCOUNTE 11/09/2017 BIN KITCHEN MD R Ot S72.002A FRACTURE OF UNSP PART OF NECK OF LEFT FE 11/09/2017 BIN KITCHEN MD Ot W18.39XA OTHER FALL ON SAME LEVEL, INITIAL ENCOUN 11/09/2017 BIN KITCHEN MD Ot Y92.[address] IN [facility] NON-INSTIT[facility] (PRIVATE 11/09/2017 BIN KITCHEN MD Ot Z66 DO NOT RESUSCITATE 11/09/2017 BIN KITCHEN MD Ot Z79.01 SAFETY AND HEALTH CONSULTANT (CURRENT) USE OF 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 11/09/2017 BIN KITCHEN MD Ot Z96.641 PRESENCE OF RIGHT ARTIFICIAL HIP JOINT 11/16/2017 BIN KITCHEN MD Ot A41.9 SEPSIS, UNSPECIFIED ORGANISM 11/16/2017 BIN KITCHEN MD Ot D62 ACUTE POSTHEMORRHAGIC ANEMIA 11/16/2017 BIN KITCHEN MD Ot E83.51 HYPOCALCEMIA 11/16/2017 BIN KITCHEN MD Ot E87.1 HYPO-OSMOLALITY AND HYPONATREMIA 11/16/2017 BIN KITCHEN MD Ot F31.9 BIPOLAR DISORDER, UNSPECIFIED 11/16/2017 BIN KITCHEN MD, Ot F41.9 ANXIETY DISORDER, UNSPECIFIED 11/16/2017 BIN KITCHEN MD, Ot I48.2 CHRONIC ATRIAL FIBRILLATION 11/16/2017 BIN KITCHEN MD Ot J18.9 PNEUMONIA, UNSPECIFIED ORGANISM 11/16/2017 BIN KITCHEN MD Ot J98.11 ATELECTASIS 11/16/2017 BIN KITCHEN MD Ot K44.9 DIAPHRAGMATIC HERNIA WITHOUT OBSTRUCTION 11/16/2017 BIN KITCHEN MD Ot K59.00 CONSTIPATION, UNSPECIFIED 11/16/2017 BIN KITCHEN [...] IN [facility] NON-INSTITUT (PRIVATE 11/16/2017 BIN KITCHEN MD, Ot Z66 DO NOT RESUSCITATE 11/16/2017 BIN KITCHEN MD, Ot Z79.01 PENITENTIARY (CURRENT) USE OF 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 11/16/2017 BIN KITCHEN [...] DO, Ot I48.2 CHRONIC ATRIAL FIBRILLATION 11/21/2017 MEENA KESSLER DO Ot J18.9 PNEUMONIA, UNSPECIFIED ORGANISM 11/21/2017 MEENA KESSLER DO Ot M25.562 PAIN IN LEFT KNEE 11/21/2017 MEENA KESSLER DO Ot R53.1 WEAKNESS 11/21/2017 MEENA KESSLER DO Ot R53.81 OTHER MALAISE 11/21/2017 MEENA KESSLRE DO Ot Z47.1 AFTERCARE FOLLOWING JOINT REPLACEMENT MCDON[facility]D 11/21/2017 MEENA KESSLER DO Ot Z66 DO NOT RESUSCITATE 11/21/2017 MEENA KESSLER DO Ot Z79.01 SAFETY AND HEALTH CONSULTANT (CURRENT) USE OF 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 11/21/2017 MEENA KESSLER [...] RESUSCITATE 11/21/2017 MEENA KESSLER DO Ot Z79.01 SAFETY AND HEALTH CONSULTANT (CURRENT) USE OF 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 11/21/2017 MEENA KESSLER DO Ot Z96.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 11/26/2017 BI REY MD E Ot E03.9 HYPOTHYROIDISM, UNSPECIFIED 11/26/2017 BI REY MD Ot F31.9 BIPOLAR DISORDER, UNSPECIFIED 11/26/2017 BI REY MD E Ot F41.9 ANXIETY DISORDER, UNSPECIFIED 11/26/2017 BI REY MD E Ot I48.91 UNSPECIFIED ATRIAL FIBRILLATION 11/26/2017 BI REY MD E Ot K59.09 OTHER CONSTIPATION 11/26/2017 BI REY MD E Ot S72.002D FX UNSP PART OF NK OF L FEMR, SUBS FOR C 11/26/2017 BI REY MD E Ot W19.XXXD UNSPECIFIED FALL, SUBSEQUENT ENCOUNTER 11/26/2017 BI REY MD Ot Y92.[address] IN APARTMENT PLACE 11/26/2017 BI REY MD Ot Z66 DO NOT RESUSCITATE 11/30/2017 BI REY MD Ot E03.9 HYPOTHYROIDISM, UNSPECIFIED 11/30/2017 BI REY MD Ot F31.9 BIPOLAR DISORDER, UNSPECIFIED 11/30/2017 BI REY MD E Ot F41.9 ANXIETY DISORDER, UNSPECIFIED 11/30/2017 BI REY MD E Ot I48.91 UNSPECIFIED ATRIAL FIBRILLATION 11/30/2017 BI REY MD Ot K59.09 OTHER CONSTIPATION 11/30/2017 BI REY MD E Ot S72.002D FX UNSP PART OF NK OF L FEMR, SUBS FOR C 11/30/2017 BI REY MD E Ot W19.XXXD UNSPECIFIED FALL, SUBSEQUENT ENCOUNTER 11/30/2017 BI REY MD E Ot Y92.[address] IN APARTMENT PLACE 11/30/2017 BI REY MD E Ot Z66 DO NOT RESUSCITATE 12/02/2017 BI REY MD Ot E03.9 HYPOTHYROIDISM, UNSPECIFIED 12/02/2017 BI REY MD Ot F31.9 BIPOLAR DISORDER, UNSPECIFIED 12/02/2017 REY MD, BI E Ot F41.9 ANXIETY DISORDER, UNSPECIFIED [...] E Ot Z66 DO NOT RESUSCITATE 12/03/2017 KRISSY AH BI E Ot E03.9 HYPOTHYROIDISM, UNSPECIFIED 12/03/2017 KRISSY HA BI E Ot F31.9 BIPOLAR DISORDER, UNSPECIFIED 12/03/2017 KRISSY HA BI E Ot F41.9 ANXIETY DISORDER, UNSPECIFIED 12/03/2017 KRISSY HA BI E Ot I48.91 UNSPECIFIED ATRIAL FIBRILLATION 12/03/2017 KRISSY HA BI E Ot K59.09 OTHER CONSTIPATION 12/03/2017 KRISSY HA BI E Ot S72.002D FX UNSP PART OF NK OF L FEMR, SUBS FOR C 12/03/2017 KRISSY HA BI E Ot W19.XXXD UNSPECIFIED FALL, SUBSEQUENT ENCOUNTER 12/03/2017 KRISSY HA BI E Ot Y92.[address] IN APARTMENT PLACE 12/03/2017 KRISSY HA BI E Ot Z66 DO NOT RESUSCITATE 12/03/2017 KRISSY HA BI E Ot E03.9 HYPOTHYROIDISM, UNSPECIFIED 12/03/2017 KRISSY HA BI E Ot F31.9 BIPOLAR DISORDER, UNSPECIFIED 12/03/2017 [...] RESUSCITATE 12/05/2017 KEVIN CLAYTON GUERO G Ot F31.9 BIPOLAR DISORDER, UNSPECIFIED 12/05/2017 BROWN DO GUERO G Ot F41.9 ANXIETY DISORDER, UNSPECIFIED 12/05/2017 KEVIN CLAYTON GUERO G Ot I48.91 UNSPECIFIED ATRIAL FIBRILLATION 12/05/2017 KEVIN CLAYTON GUERO Ernst Ot S52.552A OTH EXTRARTIC FRACTURE OF LOWER END OF L 12/05/2017 KEVIN CLAYTON GUERO G Ot W19.XXXA UNSPECIFIED FALL, INITIAL ENCOUNTER 12/05/2017 KEVIN CLAYTON GUERO G Ot Y92.230 PATIENT ROOM IN HOSPITAL PLACE 12/05/2017 KEVIN CLAYTON GUERO G Ot Z66 DO NOT RESUSCITATE 12/05/2017 KEVIN CLAYTON GUERO G Ot Z96.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 12/05/2017 BI REY MD Ot E03.9 HYPOTHYROIDISM, UNSPECIFIED 12/05/2017 BI REY MD Ot F31.9 BIPOLAR DISORDER, UNSPECIFIED 12/05/2017 BI REY MD Ot F41.9 ANXIETY DISORDER, UNSPECIFIED 12/05/2017 BI REY MD E Ot I48.91 UNSPECIFIED ATRIAL FIBRILLATION 12/05/2017 BI REY MD Ot K59.09 OTHER CONSTIPATION 12/05/2017 BI REY MD Ot S72.002D FX UNSP PART OF NK OF L FEMR, SUBS FOR C 12/05/2017 BI REY MD Ot W19.XXXD UNSPECIFIED FALL, SUBSEQUENT ENCOUNTER 12/05/2017 IB REY MD Ot Y92.[address] IN APARTMENT PLACE 12/05/2017 REY MD, BI E Ot Z66 DO NOT RESUSCITATE 12/05/2017 KRISSY HA BI E Ot E03.9 HYPOTHYROIDISM, UNSPECIFIED 12/05/2017 KRISSY HA, BI E Ot F31.9 BIPOLAR DISORDER, UNSPECIFIED 12/05/2017 KRISSY HA, BI E Ot F41.9 ANXIETY DISORDER, UNSPECIFIED 12/05/2017 KRISSY HA, BI E Ot I48.91 UNSPECIFIED ATRIAL FIBRILLATION 12/05/2017 KRISSY HA, BI E Ot K59.09 OTHER CONSTIPATION 12/05/2017 KRISSY HA, BI E Ot S72.002D FX UNSP PART OF NK OF L FEMR, SUBS FOR C 12/05/2017 KRISSY HA, BI E Ot W19.XXXD UNSPECIFIED FALL, SUBSEQUENT ENCOUNTER 12/05/2017 KRISSY HA, BI E Ot Y92.[address] IN APARTMENT PLACE 12/05/2017 KRISSY HA BI E Ot Z66 DO NOT RESUSCITATE 12/07/2017 KRISSY HA BI E Ot E03.9 HYPOTHYROIDISM, UNSPECIFIED 12/07/2017 KRISSY HA BI E Ot F31.9 BIPOLAR DISORDER, UNSPECIFIED 12/07/2017 KRISSY HA BI E Ot F41.9 ANXIETY DISORDER, UNSPECIFIED 12/07/2017 KRISSY HA, BI E Ot I48.91 UNSPECIFIED ATRIAL FIBRILLATION 12/07/2017 KRISSY HA, BI E Ot K59.09 OTHER CONSTIPATION 12/07/2017 KRISSY HA, BI E Ot S72.002D FX [...] Ot F31.9 BIPOLAR DISORDER, UNSPECIFIED 12/07/2017 KRISSY HA, BI E Ot F41.9 ANXIETY DISORDER, UNSPECIFIED 12/07/2017 KRISSY HA, BI E Ot I48.91 UNSPECIFIED ATRIAL FIBRILLATION 12/07/2017 KRISSY HA BI E Ot K59.09 OTHER CONSTIPATION 12/07/2017 BI REY MD E Ot S72.002D FX [...] E Ot I48.91 UNSPECIFIED ATRIAL FIBRILLATION 12/10/2017 ROBER REY MDIC E Ot K59.09 OTHER CONSTIPATION 12/10/2017 ROBER REY MDIC E Ot R07.81 PLEURODYNIA 12/10/2017 BI REY [...] Y92.[address] IN [facility]ITAL PLACE 12/10/2017 BI REY MD E Ot Z66 DO NOT RESUSCITATE 09/26/2018 BI REY MD E Ot E03.9 HYPOTHYROIDISM, UNSPECIFIED 09/26/2018 BI REY MD E Ot F31.9 BIPOLAR DISORDER, UNSPECIFIED 09/26/2018 KRISSY HA BI E Ot F41.9 ANXIETY DISORDER, UNSPECIFIED 09/26/2018 ROBER REY MDIC E Ot I48.91 UNSPECIFIED ATRIAL FIBRILLATION 09/26/2018 BI REY MD E Ot K59.09 OTHER CONSTIPATION 09/26/2018 REY MD, BI E Ot R07.81 PLEURODYNIA 09/26/2018 KRISSY HA, BI E Ot S52.502A UNSP FRACTURE OF THE LOWER END OF LEFT R 09/26/2018 KRISSY HA BI E Ot S72.002D FX UNSP PART OF NK OF L FEMR, SUBS FOR C 09/26/2018 BI REY MD E Ot S82.002D UNSP FRACTURE OF LEFT PATELLA, SUBS FOR 09/26/2018 KRISSY HA BI E Ot W19.XXXD UNSPECIFIED FALL, SUBSEQUENT ENCOUNTER 09/26/2018 KRISSY HA BI E Ot Y92.[address] IN APARTMENT PLACE 09/26/2018 KRISSY HA, BI E Ot Y92.[address] IN HOSPITAL PLACE 09/26/2018 KRISSY HA BI E Ot Z66 DO NOT RESUSCITATE 09/26/2018 KRISSY HA BI E Ot E03.9 HYPOTHYROIDISM, UNSPECIFIED 09/26/2018 KRISSY HA BI E Ot F31.9 BIPOLAR DISORDER, UNSPECIFIED 09/26/2018 KRISSY HA BI E Ot F41.9 ANXIETY DISORDER, UNSPECIFIED 09/26/2018 KRISSY HA BI E Ot I48.91 UNSPECIFIED ATRIAL FIBRILLATION 09/26/2018 KRISSY HA BI E Ot K59.09 OTHER CONSTIPATION 09/26/2018 KRISSY HA BI E Ot R07.81 PLEURODYNIA 09/26/2018 KRISSY AH BI E Ot S52.502A UNSP FRACTURE OF THE LOWER END OF LEFT R 09/26/2018 KRISSY HA BI E Ot S72.002D FX UNSP PART OF NK OF L FEMR, SUBS FOR C 09/26/2018 KRISSY HA BI E Ot S82.002D UNSP FRACTURE OF LEFT PATELLA, SUBS FOR 09/26/2018 KRISSY HA BI E Ot W19.XXXD UNSPECIFIED FALL, SUBSEQUENT ENCOUNTER 09/26/2018 KRISSY HA BI E Ot Y92.[address] IN APARTMENT PLACE 09/26/2018 KRISSY HA BI E Ot Y92.[address] IN HOSPITAL PLACE 09/26/2018 KRISSY HA BI E Ot Z66 DO NOT RESUSCITATE 10/03/2018 TOMY HILARIO NP-C Ot E03.9 HYPOTHYROIDISM, UNSPECIFIED 10/03/2018 TOMY HILARIO NP-C Ot E78.5 HYPERLIPIDEMIA, UNSPECIFIED 10/03/2018 TOMY HILARIO NP-C Ot F32.9 MAJOR DEPRESSIVE DISORDER, SINGLE EPISOD 10/03/2018 TOMY HILARIO NP-C Ot F41.9 ANXIETY DISORDER, UNSPECIFIED 10/03/2018 TOMY HILARIO NP-C Ot 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, W S 10/03/2018 TOMY HILARIO NP-C Ot M19.90 UNSPECIFIED OSTEOARTHRITIS, UNSPECIFIED 10/03/2018 TOMY HILARIO NP-C Ot N18.3 CHRONIC KIDNEY DISEASE, STAGE 3 (MODERAT 10/03/2018 TOMY HILARIO NP-C Ot R80.9 PROTEINURIA, UNSPECIFIED 10/03/2018 JAN CRAIN MD Ot I48.1 PERSISTENT ATRIAL FIBRILLATION 10/03/2018 JAN CRAIN MD Ot I50.33 ACUTE ON CHRONIC DIASTOLIC (CONGESTIVE) 10/03/2018 JAN CRAIN MD Ot Z79.01 PENITENTIARY (CURRENT) USE OF 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 10/03/2018 JAN CRAIN MD Ot Z51.81 ENCOUNTER FOR THERAPEUTIC DRUG LEVEL MON 10/03/2018 JAN CRAIN MD Ot Z79.01 SAFETY AND HEALTH CONSULTANT (CURRENT) USE OF 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 10/03/2018 JAN CRAIN MD Ot I48.91 UNSPECIFIED ATRIAL FIBRILLATION 10/03/2018 JAN CRAIN MD Ot I50.9 HEART FAILURE, UNSPECIFIED 10/03/2018 JAN CRAIN MD Ot Z79.02 SAFETY AND HEALTH CONSULTANT (CURRENT) USE OF ANTITHROMBOTI 10/03/2018 JAN CRAIN MD Ot Z79.899 OTHER PENITENTIARY (CURRENT) DRUG THERAPY 10/03/2018 OTHER, UNLISTED Ot Z51.81 ENCOUNTER FOR THERAPEUTIC DRUG LEVEL MON 10/03/2018 OTHER, UNLISTED Ot Z79.01 PENITENTIARY (CURRENT) USE OF 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 10/03/2018 JAN CRAIN MD Ot Z51.81 ENCOUNTER FOR THERAPEUTIC DRUG LEVEL MON 10/03/2018 JAN CRAIN MD Ot Z79.01 PENITENTIARY (CURRENT) USE OF 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 10/03/2018 JAN CRAIN MD Ot Z51.81 ENCOUNTER FOR THERAPEUTIC DRUG LEVEL MON 10/03/2018 JAN CRAIN MD L Ot Z79.01 PENITENTIARY (CURRENT) USE OF 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 10/03/2018 JAN CRAIN MD L Ot Z51.81 ENCOUNTER FOR THERAPEUTIC DRUG LEVEL MON 10/03/2018 JAN CRAIN MD L Ot Z79.01 SAFETY AND HEALTH CONSULTANT (CURRENT) USE OF 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 10/03/2018 JAN CRAIN MD L Ot I48.91 UNSPECIFIED ATRIAL FIBRILLATION 10/03/2018 JAN CRAIN MD L Ot Z79.01 PENITENTIARY (CURRENT) USE OF 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 10/03/2018 JAN CRAIN MD L Ot Z51.81 ENCOUNTER FOR THERAPEUTIC DRUG LEVEL MON 10/03/2018 JAN CRAIN MD Ot Z79.01 SAFETY AND HEALTH CONSULTANT (CURRENT) USE OF 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 10/03/2018 TOMY HILARIO ENVIRONMENTAL MONITORING SPECIALIST-C Ot D50.9 IRON DEFICIENCY ANEMIA, UNSPECIFIED 10/03/2018 TOMY HILARIO ENVIRONMENTAL MONITORING SPECIALIST-C Ot D63.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 10/03/2018 TOMY HILARIO ENVIRONMENTAL MONITORING SPECIALIST-C Ot N18.3 CHRONIC KIDNEY DISEASE, STAGE 3 (MODERAT 01/11/2019 TOMY HILARIO ENVIRONMENTAL MONITORING SPECIALIST-C Ot E03.9 HYPOTHYROIDISM, UNSPECIFIED 01/11/2019 TOMY HILARIO ENVIRONMENTAL MONITORING SPECIALIST-C Ot E78.5 HYPERLIPIDEMIA, UNSPECIFIED 01/11/2019 TOMY HILARIO ENVIRONMENTAL MONITORING SPECIALIST-C Ot F32.9 MAJOR DEPRESSIVE DISORDER, SINGLE EPISOD 01/11/2019 TOMY HILARIO ENVIRONMENTAL MONITORING SPECIALIST-C Ot F41.9 ANXIETY DISORDER, UNSPECIFIED 01/11/2019 TOMY HILARIO ENVIRONMENTAL MONITORING SPECIALIST-C Ot 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, W S 01/11/2019 TOMY HILARIO ENVIRONMENTAL MONITORING SPECIALIST-C Ot M19.90 UNSPECIFIED OSTEOARTHRITIS, UNSPECIFIED 01/11/2019 TOMY HILARIO ENVIRONMENTAL MONITORING SPECIALIST-C Ot N18.3 CHRONIC KIDNEY DISEASE, STAGE 3 (MODERAT 01/11/2019 TOMY HILARIO ENVIRONMENTAL MONITORING SPECIALIST-C Ot R80.9 PROTEINURIA, UNSPECIFIED 01/11/2019 JAN CRAIN MD Ot I48.1 PERSISTENT ATRIAL FIBRILLATION 01/11/2019 JAN CRAIN MD L Ot I50.33 ACUTE ON CHRONIC DIASTOLIC (CONGESTIVE) 01/11/2019 JAN CRAIN MD L Ot Z79.01 SAFETY AND HEALTH CONSULTANT (CURRENT) USE OF 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 01/11/2019 JAN CRAIN MD L Ot Z51.81 ENCOUNTER FOR THERAPEUTIC DRUG LEVEL MON 01/11/2019 JAN CRAIN MD Ot Z79.01 PENITENTIARY (CURRENT) USE OF 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 01/11/2019 JAN CRAIN MD Ot I48.91 UNSPECIFIED ATRIAL FIBRILLATION 01/11/2019 JAN CRAIN MD Ot I50.9 HEART FAILURE, UNSPECIFIED 01/11/2019 JAN CRAIN MD L Ot Z79.02 SAFETY AND HEALTH CONSULTANT (CURRENT) USE OF ANTITHROMBOTI 01/11/2019 JAN CRAIN MD Ot Z79.899 OTHER SAFETY AND HEALTH CONSULTANT (CURRENT) DRUG THERAPY 01/11/2019 OTHER, UNLISTED Ot Z51.81 ENCOUNTER FOR THERAPEUTIC DRUG LEVEL MON 01/11/2019 OTHER, KAYEISTED Ot Z79.01 SAFETY AND HEALTH CONSULTANT (CURRENT) USE OF 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 01/11/2019 JAN CRAIN MD Ot Z51.81 ENCOUNTER FOR THERAPEUTIC DRUG LEVEL MON 01/11/2019 JAN CRAIN MD L Ot Z79.01 PENITENTIARY (CURRENT) USE OF 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 01/11/2019 JAN CRAIN MD Ot Z51.81 ENCOUNTER FOR THERAPEUTIC DRUG LEVEL MON 01/11/2019 JAN CRAIN MD L Ot Z79.01 SAFETY AND HEALTH CONSULTANT (CURRENT) USE OF 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 01/11/2019 JAN CRAIN MD Ot Z51.81 ENCOUNTER FOR THERAPEUTIC DRUG LEVEL MON 01/11/2019 JAN CRAIN MD Ot Z79.01 SAFETY AND HEALTH CONSULTANT (CURRENT) USE OF 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 01/11/2019 JAN CRAIN MD Ot I48.91 UNSPECIFIED ATRIAL FIBRILLATION 01/11/2019 JAN CRAIN MD Ot Z79.01 PENITENTIARY (CURRENT) USE OF 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 01/11/2019 JAN CRAIN MD Ot Z51.81 ENCOUNTER FOR THERAPEUTIC DRUG LEVEL MON 01/11/2019 JAN CRAIN MD Ot Z79.01 SAFETY AND HEALTH CONSULTANT (CURRENT) USE OF 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 01/11/2019 TOMY HILARIO NP-Cristobal Ot D50.9 IRON DEFICIENCY ANEMIA, UNSPECIFIED 01/11/2019 TOMY HILARIO NP-Cristobal Ot D63.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 01/11/2019 RONNIE HILARIOA G. 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, W S 01/18/2019 NEW, TOMY Lou ENVIRONMENTAL MONITORING SPECIALIST-C Ot M19.90 UNSPECIFIED OSTEOARTHRITIS, UNSPECIFIED 01/18/2019 NEW, TOMY Lou ENVIRONMENTAL MONITORING SPECIALIST-C Ot N18.3 CHRONIC KIDNEY DISEASE, STAGE 3 (MODERAT 01/18/2019 NEW, TOMY Lou ENVIRONMENTAL MONITORING SPECIALIST-C Ot R80.9 PROTEINURIA, UNSPECIFIED 01/18/2019 JAN CRAIN MD Ot I48.1 PERSISTENT ATRIAL FIBRILLATION 01/18/2019 JAN CRAIN MD Ot I50.33 ACUTE ON CHRONIC DIASTOLIC (CONGESTIVE) 01/18/2019 JAN CRAIN MD Ot Z79.01 PENITENTIARY (CURRENT) USE OF 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 01/18/2019 JAN CRAIN MD Ot Z51.81 ENCOUNTER FOR THERAPEUTIC DRUG LEVEL MON 01/18/2019 JAN CRAIN MD Ot Z79.01 PENITENTIARY (CURRENT) USE OF 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 01/18/2019 JAN CRAIN MD Ot I48.91 UNSPECIFIED ATRIAL FIBRILLATION 01/18/2019 JAN CRAIN MD Ot I50.9 HEART FAILURE, UNSPECIFIED 01/18/2019 JAN CRAIN MD Ot Z79.02 PENITENTIARY (CURRENT) USE OF ANTITHROMBOTI 01/18/2019 JAN CRAIN MD Ot Z79.899 OTHER PENITENTIARY (CURRENT) DRUG THERAPY 01/18/2019 OTHER, UNLISTED Ot Z51.81 ENCOUNTER FOR THERAPEUTIC DRUG LEVEL MON 01/18/2019 OTHER, UNLISTED Ot Z79.01 SAFETY AND HEALTH CONSULTANT (CURRENT) USE OF 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 01/18/2019 CRAIN MD, JAN L Ot Z51.81 ENCOUNTER FOR THERAPEUTIC DRUG LEVEL MON 01/18/2019 RAJWINDER CRAIN MDCY L Ot Z79.01 SAFETY AND HEALTH CONSULTANT (CURRENT) USE OF 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 01/18/2019 RAJWINDER CRAIN MDCY L Ot Z51.81 ENCOUNTER FOR THERAPEUTIC DRUG LEVEL MON 01/18/2019 RAJWINDER RCAIN MDCY L Ot Z79.01 SAFETY AND HEALTH CONSULTANT (CURRENT) USE OF 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 01/18/2019 RAJWINDER CRAIN MDCY L Ot Z51.81 ENCOUNTER FOR THERAPEUTIC DRUG LEVEL MON 01/18/2019 RAJWINDER CRAIN MDCY L Ot Z79.01 SAFETY AND HEALTH CONSULTANT (CURRENT) USE OF 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 01/18/2019 RAJWINDER CRAIN MDCY L Ot I48.91 UNSPECIFIED ATRIAL FIBRILLATION 01/18/2019 RAJWINDER CRAIN MDCY L Ot Z79.01 PENITENTIARY (CURRENT) USE OF 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 01/18/2019 RAJWINDER CRAIN MDCY L Ot Z51.81 ENCOUNTER FOR THERAPEUTIC DRUG LEVEL MON 01/18/2019 RAJWINDER CRAIN MDCY L Ot Z79.01 SAFETY AND HEALTH CONSULTANT (CURRENT) USE OF 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 01/18/2019 NEWTOMY ENVIRONMENTAL MONITORING SPECIALIST-C Ot D50.9 IRON DEFICIENCY ANEMIA, UNSPECIFIED 01/18/2019 NEW, TOMY G. ENVIRONMENTAL MONITORING SPECIALIST-C Ot D63.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 01/18/2019 NEWTOMY G. ENVIRONMENTAL MONITORING SPECIALIST-C Ot N18.3 CHRONIC KIDNEY DISEASE, STAGE 3 (MODERAT 01/22/2019 NEWTOMY G. ENVIRONMENTAL MONITORING SPECIALIST-C Ot D50.9 IRON DEFICIENCY ANEMIA, UNSPECIFIED 01/22/2019 NEWRONNIEA G. ENVIRONMENTAL MONITORING SPECIALIST-C Ot D63.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 01/22/2019 NEWTOMY. ENVIRONMENTAL MONITORING SPECIALIST-C Ot N18.3 CHRONIC KIDNEY DISEASE, STAGE 3 (MODERAT 01/22/2019 NEW TOMY G. ENVIRONMENTAL MONITORING SPECIALIST-C Ot D50.9 IRON DEFICIENCY ANEMIA, UNSPECIFIED 01/22/2019 NEW, TOMY G. ENVIRONMENTAL MONITORING SPECIALIST-C Ot D63.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 01/22/2019 NEW, TOMY G. ENVIRONMENTAL MONITORING SPECIALIST-C Ot N18.3 CHRONIC KIDNEY DISEASE, STAGE 3 (MODERAT 01/24/2019 NEW TOMY G. ENVIRONMENTAL MONITORING SPECIALIST-C Ot D50.9 IRON DEFICIENCY ANEMIA, UNSPECIFIED 01/24/2019 NEW, TOMY G. ENVIRONMENTAL MONITORING SPECIALIST-C Ot D63.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 01/24/2019 SULAIMAN TOMY ErnstBrian RUBIO Ot N18.3 CHRONIC KIDNEY DISEASE, STAGE 3 (MODERAT 01/24/2019 SARA OWENS MD, Ot M75.102 UNSP ROTATR-CUFF TEAR/RUPTR OF LEFT SHOU 01/24/2019 SARA OWENS MD, Ot Z01.810 ENCOUNTER FOR PREPROCEDURAL CARDIOVASCUL 01/24/2019 SARA OWENS MD, Ot Z01.812 ENCOUNTER FOR PREPROCEDURAL LABORATORY E 01/24/2019 SARA OWENS MD, Ot Z11.2 ENCOUNTER FOR SCREENING FOR OTHER BACTER 01/24/2019 SARA OWENS MD, Ot E03.9 HYPOTHYROIDISM, UNSPECIFIED 01/24/2019 SARA OWENS MD Ot E78.00 PURE HYPERCHOLESTEROLEMIA, UNSPECIFIED 01/24/2019 SARA OWENS MD, Ot E78.5 HYPERLIPIDEMIA, UNSPECIFIED 01/24/2019 SARA OWENS MD Ot F31.9 BIPOLAR DISORDER, UNSPECIFIED 01/24/2019 SARA OWENS MD, Ot F41.9 ANXIETY DISORDER, UNSPECIFIED 01/24/2019 SARA OWENS MD, Ot G62.9 POLYNEUROPATHY, UNSPECIFIED 01/24/2019 SARA OWENS MD Ot I11.0 HYPERTENSIVE HEART DISEASE WITH HEART FA 01/24/2019 SARA OWENS MD Ot I48.91 UNSPECIFIED ATRIAL FIBRILLATION 01/24/2019 SARA OWENS MD Ot I50.9 HEART FAILURE, UNSPECIFIED 01/24/2019 SARA OWENS MD Ot K21.9 GASTRO-ESOPHAGEAL REFLUX DISEASE WITHOUT 01/24/2019 SARA OWENS MD Ot M75.102 UNSP ROTATR-CUFF TEAR/RUPTR OF LEFT SHOU 01/24/2019 SARA OWENS MD Ot N28.9 DISORDER OF KIDNEY AND URETER, UNSPECIFI 01/24/2019 SARA OWENS MD Ot Z79.01 SAFETY AND HEALTH CONSULTANT (CURRENT) USE OF 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 01/24/2019 SARA OWENS MD Ot Z79.82 PENITENTIARY (CURRENT) USE OF ASPIRIN 01/24/2019 SARA OWENS MD, Ot Z79.899 OTHER PENITENTIARY (CURRENT) DRUG THERAPY 01/24/2019 SARA OWENS MD, Ot Z96.649 PRESENCE OF UNSPECIFIED ARTIFICIAL HIP J 01/25/2019 SARA OWENS MD, Ot E03.9 HYPOTHYROIDISM, UNSPECIFIED 01/25/2019 SARA OWENS MD, Ot E78.00 PURE HYPERCHOLESTEROLEMIA, UNSPECIFIED 01/25/2019 SARA OWENS MD, Ot E78.5 HYPERLIPIDEMIA, UNSPECIFIED 01/25/2019 SARA OWENS MD, Ot F31.9 BIPOLAR DISORDER, UNSPECIFIED 01/25/2019 SARA OWENS MD, Ot F41.9 ANXIETY DISORDER, UNSPECIFIED 01/25/2019 SARA OWENS MD, Ot G62.9 POLYNEUROPATHY, UNSPECIFIED 01/25/2019 SARA OWENS MD, Ot I11.0 HYPERTENSIVE HEART DISEASE WITH HEART FA 01/25/2019 SARA OWENS MD, Ot I48.91 UNSPECIFIED ATRIAL FIBRILLATION 01/25/2019 SARA OWENS MD, Ot I50.9 HEART FAILURE, UNSPECIFIED 01/25/2019 SARA OWENS MD, Ot K21.9 GASTRO-ESOPHAGEAL REFLUX DISEASE WITHOUT 01/25/2019 SARA OWENS MD, Ot M75.102 UNSP ROTATR-CUFF TEAR/RUPTR OF LEFT SHOU 01/25/2019 SARA OWENS MD, Ot N28.9 DISORDER OF KIDNEY AND URETER, UNSPECIFI 01/25/2019 SARA OWENS MD, Ot Z79.01 SAFETY AND HEALTH CONSULTANT (CURRENT) USE OF 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 01/25/2019 SARA OWENS MD Ot Z79.82 SAFETY AND HEALTH CONSULTANT (CURRENT) USE OF ASPIRIN 01/25/2019 SARA OWENS MD, Ot Z79.899 OTHER PENITENTIARY (CURRENT) DRUG THERAPY 01/25/2019 SARA OWENS MD, Ot Z96.649 PRESENCE OF UNSPECIFIED ARTIFICIAL HIP J 01/28/2019 SARA OWENS MD, Ot M75.102 UNSP ROTATR-CUFF TEAR/RUPTR OF LEFT SHOU 01/28/2019 SARA OWENS MD, Ot Z01.810 ENCOUNTER FOR PREPROCEDURAL CARDIOVASCUL 01/28/2019 SARA OWENS MD, Ot Z01.812 ENCOUNTER FOR PREPROCEDURAL LABORATORY E 01/28/2019 SARA OWENS MD, Ot Z11.2 ENCOUNTER FOR SCREENING FOR OTHER BACTER Procedures Code [place] [address] PSYCH IND W/MED CK 20 09/13/2012 24024 ROUTINE VENIPUNCTURE 11/10/2012 55162 QUANTITATIVE ASSAY DRUG 11/23/2012 71434 SLEEP STUDY 01/03/2013 35285 PSYCH DIAGNOSTIC EVALUATION 03/15/2013 32279 ROUTINE VENIPUNCTURE 05/18/2013 70660 CBC 05/18/2013 96267 CMP 05/18/2013 88069 LIPID PANEL 05/18/2013 7491212 GFR CALC (RESULT ONLY) 05/18/2013 79692 TSH 05/18/2013 54238 ROUTINE VENIPUNCTURE 05/22/2014 30730 CBC 05/22/2014 1208159 GFR CALC (RESULT ONLY) 05/22/2014 92582 CMP 05/22/2014 14513 LIPID PANEL 05/22/2014 35693 TSH 05/22/2014 [id number] REPLACE L HIP JT, FEMORAL W METAL, UNCEM 11/10/2017 [id number] INSERTION OF INT FIX INTO L RADIUS, OPEN 12/03/2017 [id number] REPOSITION LEFT RADIUS WITH INT FIX, OPE [...] or plasma troponin i.cardiac measurement (mass/volume) - 10/31/16 16:00 Serum or plasma troponin i.cardiac measurement [...] 103 mmol/L 98-107 Carbon dioxide 26 mmol/L 21-32 Serum or plasma anion gap [...] ABO+Rh group AP NRG Transfusion band number [id number] NRG Blood group antibody screen NEGATIVE NRG [...] 101 mmol/L 98-107 Carbon dioxide 23 mmol/L -32 [...] ABO+Rh group AP NRG Transfusion band number [id number] NRG Blood group antibody screen NEGATIVE NRG [...] Methicillin resistant Staphylococcus aureus (MRSA) screening culture [facility] Complete blood count [...] Status Pt. Type Provider Facility Loc./Unit Complaint [id number] 11/15/2014 09:34:00 11/15/2014 23:59:59 CLS Outpatient ANASTASIYA JOHNSON APRN [id number] 10/14/2014 13:26:00 10/14/2014 23:59:59 CLS Outpatient FRANCESCO PHILLIPS MD [id number] 09/05/2014 10:15:00 09/05/2014 23:59:59 CLS Outpatient ANASTASIYA JOHNSON APRN [id number] 05/30/2014 11:07:00 05/30/2014 23:59:59 CLS Outpatient DAMIÁN STEEN APRN [id number] 05/22/2014 09:07:00 05/22/2014 23:59:59 CLS Outpatient FRANCESCO PHILLIPS MD [id number] 05/20/2014 09:34:00 05/20/2014 23:59:59 CLS Outpatient FRANCESCO PHILLIPS MD [id number] 03/27/2014 14:44:00 03/27/2014 23:59:59 CLS Outpatient SACHA ORTEGA DDS [id number] 12/27/2013 11:07:00 12/27/2013 23:59:59 CLS Outpatient DAMIÁN STEEN APRN [id number] 08/10/2013 09:47:00 08/10/2013 23:59:59 CLS Outpatient FRANCESCO PHILLIPS MD [id number] 07/17/2013 11:41:00 07/17/2013 23:59:59 CLS Outpatient ELAINE HANLEY DO [id number] 05/18/2013 08:23:00 05/18/2013 23:59:59 CLS Outpatient FRANCESCO PHILLIPS MD [id number] 01/03/2013 14:37:00 01/03/2013 23:59:59 CLS Outpatient ELAINE HANLEY DO [id number] 12/08/2012 11:12:00 12/08/2012 23:59:59 CLS Outpatient ELAINE HANLEY DO [id number] 11/10/2012 13:02:00 11/10/2012 23:59:59 CLS Outpatient [id number] 11/10/2012 13:02:00 11/10/2012 23:59:59 CLS Outpatient [id number] 09/11/2012 12:11:00 09/11/2012 23:59:59 CLS Outpatient ELAINE HANLEY DO [id number] 07/12/2012 12:11:00 07/12/2012 23:59:59 CLS Outpatient ELAINE HANLEY DO [id number] 03/16/2013 14:38:00 Document Registration [id number] 03/14/2013 12:27:00 Document Registration [id number] 03/08/2013 16:07:00 Document Registration [id number] 10/13/2014 16:25:32 ACT Document Registration [id number] 01/24/2019 07:20:00 01/24/2019 13:25:00 DIS Outpatient SARA OWENS MD [facility] LEFT SHOULDER ROTATOR CUFF TEAR [id number] 01/22/2019 10:20:00 01/22/2019 12:52:00 DIS Outpatient SARA OWENS MD [facility] PREOP LEFT SHOULDER ROTATOR CUFF TEAR [id number] 11/21/2017 09:00:00 12/10/2017 09:45:00 DIS Inpatient BI REY MD [facility] IRF LEFT HIP FRACTURE [id number] 12/03/2017 07:00:00 12/05/2017 09:45:00 DIS Inpatient GUERO BROWN DO [facility] 4TH LEFT DISTAL RADIUS FRACTURE [id number] 11/16/2017 14:38:00 11/21/2017 09:25:00 DIS Inpatient MEENA KESSLER DO [facility] 4TH SWB,LT HIP FX, FALL ON SAME LEVEL [id number] 11/09/2017 01:40:00 11/16/2017 14:37:00 DIS Inpatient IMTIAZ HA, BIN Escobedo [facility] 4TH LEFT HIP FX, FALL ON SAME LEVEL [id number] 12/27/2016 00:09:00 12/27/2016 23:59:59 CLS Preadmit TOMY HILARIO ENVIRONMENTAL MONITORING SPECIALIST-C [facility] IRON DEFICIENCY ANEMIA [id number] 10/06/2016 12:54:00 12/26/2016 00:01:00 DIS Outpatient TOMY HILARIO NP-C [facility] IRON DEFICIENCY ANEMIA [id number] 10/28/2016 15:41:00 10/28/2016 23:59:59 CLS Outpatient JAN CRAIN MD [facility] ANTICOAG THERAPY [id number] 10/21/2016 14:45:00 10/21/2016 23:59:59 CLS Outpatient JAN CRAIN MD [facility] ANTICOAG THERAPY, A FIB [id number] 10/14/2016 12:49:00 10/14/2016 23:59:59 CLS Outpatient JAN CRAIN MD [facility] ANTICOAG THERAPY [id number] 10/08/2016 15:01:00 10/08/2016 23:59:59 CLS Outpatient JAN CRAIN MD [facility] ANTICOAG THERAPY [id number] 10/05/2016 14:29:00 10/05/2016 23:59:59 CLS Outpatient JAN CRAIN MD [facility] ANTICOAG THERAPY [id number] 09/30/2016 13:00:00 09/30/2016 23:59:59 CLS Outpatient OTHER, UNLISTED [facility] ANTICOAG THERAPY [id number] 09/30/2016 10:14:00 09/30/2016 23:59:59 CLS Outpatient JAN CRAIN MD [facility] A FIB, CHF, DIURETIC THERAPY [id number] 09/27/2016 12:05:00 09/27/2016 23:59:59 CLS Outpatient JAN CRAIN MD [facility] 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 THERAPY [id number] 09/24/2016 11:47:00 09/24/2016 23:59:59 CLS Outpatient JAN CRAIN MD [facility] ACUTE ON CHRONIC DIASTOLIC CHF, ANTICOAG [place] [id number] 09/22/2016 15:15:00 09/22/2016 23:59:59 CLS Outpatient JAN CRAIN MD [facility] PERSISTENT A FIB [id number] 08/23/2016 15:15:00 08/23/2016 18:18:00 DIS Emergency KEVIN MCCULLOUGH MD [facility] ER SOB [id number] 05/26/2016 00:10:00 05/26/2016 23:59:59 CLS Preadmit SARA OWENS MD [facility] REHAB [id number] 04/22/2016 09:37:00 05/25/2016 00:01:00 DIS Outpatient SARA OWENS MD [facility] REHAB LOW BACK PAIN [id number] 11/11/2015 13:00:00 11/11/2015 23:59:59 CLS Outpatient NEWTOMY [facility] RAD CHRONIC KIDNEY DISEASE STAGE III,HLP [id number] 10/13/2014 16:24:00 10/13/2014 23:59:59 CLS Outpatient RIDINGS, JAME Cristobal BELCHERN [facility] QUICK [id number] 02/11/2019 19:57:00 ACT Emergency KEVIN MCCULLOUGH MD [facility] ER WEAKNESS,DIZZINESS [id number] 11/11/2015 13:00:00 Document Registration [id number] 11/11/2015 13:00:00 Document Registration [id number] 11/11/2015 13:00:00 Document Registration [id number] 01/25/2013 21:00:00 Document Registration [id number] 05/09/2012 13:51:00 Document Registration [id number] 05/05/2012 08:24:00 Document Registration [id number] 03/08/2011 07:40:00 Document Registration [id number] 2011 11:53:00 Document Registration [id number] 07/09/2010 13:17:00 Document Registration [id number] 01/11/2019 15:00:00 01/11/2019 23:59:59 [facility] Tk PHILLIPS MD, [facility] [id number] 05/25/2018 09:00:00 Document Registration [id number] 03/13/2018 12:00:00 Document Registration
[2019-02-11 20:49] LABS: BILIRUBIN,URINE NEGATIVE (NEGATIVE); COLOR,URINE YELLOW; GLUCOSE, URINE (UA) NEGATIVE (NEGATIVE); KETONES,URINE NEGATIVE (NEGATIVE); LEUKOCYTE ESTERASE ,URINE NEGATIVE (NEGATIVE); NITRITE,URINE NEGATIVE (NEGATIVE); PH,URINE 6 (5-9); PROTEIN,URINE NEGATIVE (NEGATIVE); UROBILINOGEN,URINE 1 MG/DL (NORMAL)
[2019-02-11 20:50] LABS: INR 1.6 (0.8-1.4); PROTHROMBIN TIME PATIENT 20.1 SEC (12.2-14.7)
[2019-02-11 20:55] LABS: BACTERIA,URINE NEGATIVE /HPF; CLARITY,URINE CLEAR; SQUAMOUS EPITHELIAL CELL,UR RARE /HPF
--- NOTE | 2019-02-11 20:56 | Diagnostic Imaging Report ---
EXAMINATION: Portable chest INDICATION: Weakness and dizziness Comparison is made to the prior study from 11/14/2017. FINDINGS: There are mild chronic interstitial changes present within the lungs. There is no focal infiltrate or consolidation. There is some minimal atelectasis at the right base. There is no effusion. There is no pneumothorax. Heart size is mildly prominent without current failure. There is no acute or suspicious osseous abnormality. IMPRESSION: 1. Minimal right base atelectasis but the lungs otherwise clear. There are stable mild interstitial changes. There is no effusion or evidence of edema or failure. Dictated by: Dictated on workstation # [id number]
[2019-02-11 20:58] LABS: ALANINE AMINOTRANSFERASE 203 U/L (0-55); ALBUMIN 4.4 GM/DL (3.2-4.5); ALKALINE PHOSPHATASE 139 U/L (40-136); BILIRUBIN,TOTAL 1.3 MG/DL (0.1-1.0); BUN/CREATININE RATIO 12; CALCIUM 10.2 MG/DL (8.5-10.1); CARBON DIOXIDE 22 MMOL/L (21-32); CHLORIDE 97 MMOL/L (98-107); CREATININE SERUM 1.06 MG/DL (0.60-1.30); GFR ESTIMATED 50; GLUCOSE 98 MG/DL (70-105); MAGNESIUM 2.5 MG/DL (1.8-2.4); POTASSIUM 4.1 MMOL/L (3.6-5.0); SODIUM 135 MMOL/L (135-145); TOTAL PROTEIN 7.7 GM/DL (6.4-8.2)
--- NOTE | 2019-02-11 21:42 | Diagnostic Imaging Report ---
PROCEDURE: CT head and CT cervical spine without contrast. TECHNIQUE: Multiple contiguous axial images were obtained through the brain and cervical spine without the use of intravenous contrast. Sagittal and coronal reformations through the cervical spine were then performed. Auto Exposure Controls were utilized during the CT exam to meet ALARA standards for radiation dose reduction. INDICATION: Weakness and neck pain. No relevant comparison available. FINDINGS: The CT of the head demonstrates no evidence of acute intracranial hemorrhage. There are degenerative calcifications within the basal ganglia. There is age-related global volume loss. There are some mild microvascular changes within white matter but no findings of territorial loss of acharya-white differentiation to suggest acute ischemia. There is no abnormal low density within the basal ganglia or within the katheryn. There is no hydrocephalus. There is no abnormal extra-axial collection. The basilar cisterns are patent. The mastoid air cells appear clear. There are no air-fluid levels in the paranasal sinuses or evidence of significant mucosal thickening. Orbital contents unremarkable. There is no acute calvarial abnormality. Cervical spine demonstrates normal alignment. There is maintenance of normal relationship of the craniocervical junction with normal relationship of lateral masses of C1 and C2. The facets are normally aligned. There is no facet joint or disc space widening. The vertebral body heights are maintained without evidence of an acute cervical spine fracture. 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 There are multilevel endplate changes as well as facet arthropathy. By CT imaging, there are no findings of high-grade central canal stenosis. The lung apices appear clear. Soft tissue of the neck demonstrate carotid calcifications. There is no acute soft tissue abnormality. IMPRESSION: 1. Age-related global volume loss with mild microvascular changes within the white matter. There are no CT findings of an acute intracranial abnormality. 2. Cervical degenerative disc disease and facet arthropathy without CT findings of traumatic malalignment, acute fracture or findings to suggest high-grade canal stenosis. Dictated by: Dictated on workstation # [id number]
--- NOTE | 2019-02-11 21:50 | Diagnostic Imaging Report ---
PROCEDURE: CT thoracic and lumbar spine without contrast. TECHNIQUE: Multiple contiguous axial images were obtained through the thoracic and lumbar spine without the use of intravenous contrast. Sagittal and coronal reformations were then performed. DATE: February 11, 2019. INDICATION: 78-year-old female, weakness and mid and lower back pain. COMPARISON: MRI lumbar spine, March 24, 2007. FINDINGS: There is grade 1 anterolisthesis of L3 on L4 relating to facet degenerative changes. The additional alignment of the thoracic and lumbar spine is unremarkable. There are concavities of the endplates of C7, C5, T1, T2, T3 and T4 which may reflect Schmorl's nodes. There is no clearly identified fracture line. There is no abnormal vertebral body retropulsion. There is no identified acute fracture of the thoracic or lumbar spine. At T9 and T10, there are areas of ossification along the posterior longitudinal ligament and also projecting in the region of the right lateral recess. There is severe narrowing of the right lateral recess at T8-T9. There is at least mild bony spinal stenosis at this level. CT is limited for assessment of disc pathology as well as additional nonbloody causes of foraminal and spinal stenosis. There are multilevel advanced disc degenerative changes of the thoracolumbar spine and multilevel facet degenerative changes of the lumbar spine. The sacroiliac joints are grossly unremarkable in appearance. At L3-L4, there does appear to be a diffuse disc bulge with facet degenerative changes and ligamentum flavum hypertrophy causing severe spinal stenosis. There is at least mild to moderate bilateral foraminal narrowing at this level. At L4-L5, there is large diffuse disc bulge with facet degenerative changes and ligamentum flavum hypertrophy causing severe spinal stenosis and moderate right and mild left foraminal stenosis. At L5-S1, there is broad-based posterior disc protrusion with mild spinal stenosis. There are atherosclerotic calcifications. There is a small right and a small left pleural effusion. There is a small hiatal hernia. There is a small-volume ascites. IMPRESSION: 1. No identified acute fracture of the thoracic or lumbar spine. 2. Thoracic and lumbar spine degenerative changes, as described above. There are limitations of CT for assessment of disc pathology as well as nonionic causes of foraminal and spinal stenosis. There are areas of suspected high-grade foraminal and spinal stenosis, as described above. 3. Small bilateral pleural effusions and very small volume ascites. Dictated by: Dictated on workstation # [id number]
--- NOTE | 2019-02-11 22:26 | NUR ---
ASSUMED CARE OF PT @ THIS TIME.
[2019-02-12 00:26] VITALS: BP 121/98
== END 2019-02-12 00:26 | disposition home or self-care (01) ==
LOC: EDUNIT# 19:56 → ER 19:57
DX: R53.1 Weakness (principal); E86.0 Dehydration; M54.6 Pain in thoracic spine; R79.89 Other specified abnormal findings of blood chemistry; R29.6 Repeated falls; I48.91 Unspecified atrial fibrillation; E78.00 Pure hypercholesterolemia, unspecified; I10 Essential (primary) hypertension; K21.9 Gastro-esophageal reflux disease without esophagitis; E03.9 Hypothyroidism, unspecified; F41.9 Anxiety disorder, unspecified; F31.9 Bipolar disorder, unspecified; D64.9 Anemia, unspecified; Z88.5 Allergy status to narcotic agent; Z82.49 Family history of ischemic heart disease and other diseases of the circulatory system; Z91.048 Other nonmedicinal substance allergy status; Z79.01 Long term (current) use of anticoagulants; Z79.82 Long term (current) use of aspirin; Z95.9 Presence of cardiac and vascular implant and graft, unspecified; Z90.49 Acquired absence of other specified parts of digestive tract; Z98.890 Other specified postprocedural states; Z98.51 Tubal ligation status; Z90.89 Acquired absence of other organs
CPT/HCPCS: 36415; 51702; 70450; 71045; 72125; 72128; 72131; 80053; 81000; 83735; 84484; 85025; 85610; 85730; 86141; 87804; 93005; 93041

== ENCOUNTER 2019-02-15 10:00 | Inpatient (IN) | payer MEDICARE ==
[~2019-02-15] VITALS: Ht 165.1 cm; Wt 69.7 kg
[2019-02-15 10:00] VITALS: BP 118/87
--- NOTE | 2019-02-15 10:00 | NUR ---
HIMANSHU JAIN admitted to room 224-1, with an admitting diagnosis of DEBILITY AND GENERALIZIED MUSCLE WEAKNESS, on 02/15/19 from HOME via WC, accompanied by DAUGHTER.HIMANSHU JAIN introduced to surroundings, call light, bed controls, phone, TV, temperature control, lights, meal times, smoking policy, visitor policy, side rail policy, bathrooms and showers. Patient Rights given to patient in the handbook.HIMANSHU JAIN verbalizes understanding that [facility] is not responsible for the loss or damage to any personal effects or valuables that are kept in the patients posession during their hospitalization. The following Patient Care Plans were discussed with the PT: Discharge Planning AND IMPAIRED MOBILITY. HIMANSHU JAIN verbalizes understanding of Interdisciplinary Patient Education. Patient received Patient Rights Booklet, which includes Privacy Act Statement and Data Collection Information Summary.
[2019-02-15] MEDS ORDERED: GABA-488 PO (10:33)
[2019-02-15] MEDS ORDERED: FERR-84 PO (10:33)
[2019-02-15] MEDS ORDERED: ALPR1TAB7 PO (10:33)
[2019-02-15] MEDS ORDERED: BUPR150T14 PO (10:33)
--- NOTE | 2019-02-15 10:51 | NUR ---
SPOKE WITH THE PATIENT AND DAUGHTER ABOUT MEDICATIONS. THEY HAD A MEDICATION LIST FROM HER RECENT DISCHARGE FROM THIS FACILITY EARLIER THIS MONTH. I COMPARED IT WITH THE EXT MED HX. HER FERROUS SULFATE 325MG WAS FILLED 01-10-19 FOR #60 FOR A 30 DAY SUPPLY HOWEVER THEY REPORT SHE ONLY TAKES IT ONCE DAILY. HER GABAPENTIN 300MG WAS FILLED #60 FOR A 20 DAY SUPPLY HOWEVER SHE ONLY TAKES 1 AT HS. SHE FILLED PERCOCET 5-325 Q4H PRN #30 01-24-19 AFTER HER SURGERY BUT STATES SHE IS NO LONGER TAKING THAT AT THIS TIME. IN ADDITION TO WHAT IS SHOWN ON THE EXT MED HX [facility] FILLED: 01-15-19 LEVOTHYROXINE 25MCG 12-13-18 PRAVASTATIN 40 MG #90 SHE TAKES THE FOLLOWING MEDS OTC: TYLENOL PRN ASPIRIN 81MG Tue VITAMIN DAILY MIRALAX PRN THE MED LIST ALSO HAD LISTED FLEXERIL 10MG HS HOWEVER IT DID NOT SOUND FAMILIAR TO THE PATIENT OR HER DAUGHTER, DUYEN AND JENNIFER NEITHER ONE HAD THAT MEDICATION ON FILE FOR THE PATIENT. I REMOVED IT FROM THE MED REC AT THIS TIME.
--- NOTE | 2019-02-15 10:59 | PM&R H&P / Post Admit Assess ---
History of Present Illness HPI/Chief Complaint CC: Falls with debility HPI: This is a 78yoWF of Dr Jauregui at [facility] who presents to the IRF due to multiple falls and recent left shoulder surgery. Apparently she resides at home in [place] and her daughter is involved in her are. She sees Cardiology and Nephrology at [facility]. PLOF was independent. Currently I have restarted all meds and reviewed PMH. Patient denies pain currently and overall she just feels weak and is afraid to walk because she feels like she is falling. Barriers to return home independently will include improved ambulation and resumption of ADL independence. Source: patient Exam Limitations: no limitations Date Seen 02/15/19 Time Seen by a Provider: 10:20 Attending Physician Jacqueline Quintanilla DO PCP Stuart Jauregui MD Referring Physician Date of Admission Feb 15, 2019 at 10:00 Home Medications & Allergies Home Medications Reviewed patient Home Medication Reconciliation performed by pharmacy medication reconciliations pharmacy technician infusion and/or nursing. Patients Allergies have been reviewed. Allergies Allergies Coded Allergies morphine (Verified Adverse Reaction, Mild, N/V, 01/22/19) Uncoded Allergies TAPE ( Allergy, Mild, RASH, 01/22/19) Past Dlgbvre-Owvdka-Ofdrfs Hx Past Med/Social Hx: Reviewed Nursing Past Med/Soc Hx, Reviewed and Corrections made Patient Social History Marrital Status: single Employed/Student: retired Alcohol Use: Denies Use Smoking Status: Never a Smoker 2nd Hand Smoke Exposure: No Recent Foreign Travel: No Contact w/other who traveled: No Recent Hopitalizations: No Recent Infectious Disease Expo: No Immunizations Up To Date Tetanus Booster (TDap): Unknown Pediatric: Yes Date of Pneumonia Vaccine: Aug 01, 2017 Date of Influenza Vaccine: Jul 31, 2018 Seasonal Allergies Seasonal Allergies: No Past Medical History Surgeries: Appendectomy, Breast, Gallbladder, Joint Replacement, Oophorectomy, Orthopedic, Tonsillectomy, Tubal Ligation Cardiac: Atrial Fibrillation, High Cholesterol, Hypertension Neurological: Neuropathy Reproductive: No Sexually Transmitted Disease: No HIV/AIDS: No Gastrointestinal: Gastroesophageal Reflux, Chronic Constipation, Hiatal Hernia Musculoskeletal: Arthritis, Chronic Back Pain, Fractures Endocrine: Hypothyroidsim Loss of Vision: Bilateral Hearing Impairment: Denies Psychosocial: Anxiety, Bipolar, Depression History of Blood Disorders: Yes (POST OP ANEMIA) Adverse Reaction to Blood Guzman: No (HAS HAD BLOOD WITH NO REACTION) Family History FH: stroke 19 FATHER G8 SISTER Myocardial infarction 19 FATHER G8 BROTHER G8 BROTHER CAD Over 55 Years Old, Stroke Review of Systems Constitutional: see HPI, dizziness, malaise, weakness EENTM: no symptoms reported Respiratory: no symptoms reported Cardiovascular: no symptoms reported Gastrointestinal: no symptoms reported Genitourinary: no symptoms reported Musculoskeletal: back pain, joint pain Skin: no symptoms reported Psychiatric/Neurological: Depressed, Emotional Problems All Other Systems Reviewed Negative Unless Noted: Yes Physical Exam Exam Vital Signs Vital Signs Date Time Temp Pulse Resp B/P (MAP) Pulse Ox O2 Delivery O2 Flow Rate FiO2 02/16/19 04:52 98.2 100 16 115/77 (90) 93 Room Air Capillary Refill : General Appearance: No Apparent Distress, WD/WN, Chronically ill HEENT: PERRL/EOMI, Normal ENT Inspection, Pharynx Normal, Moist Mucous Membranes Neck: Full Range of Motion, Normal Inspection, Non Tender, Supple Respiratory: Chest Non Tender, Lungs Clear, Normal Breath Sounds, No Accessory Muscle Use, No Respiratory Distress Cardiovascular: Regular Rate, Rhythm, No Edema, No Gallop, No JVD, No Murmur Gastrointestinal: Normal Bowel Sounds, No Organomegaly, No Pulsatile Mass, Non Tender, Soft Back: Normal Inspection, No CVA Tenderness, No Vertebral Tenderness Extremity: Normal Capillary Refill, Normal Inspection, Normal Range of Motion, Non Tender, No Calf Tenderness, No Pedal Edema Neurologic/Psychiatric: Alert, Oriented x3, No Motor/Sensory Deficits, Depressed Affect, Motor Weakness (3/5 all extremities strength) Skin: Normal Color, Warm/Dry Lymphatic: No Adenopathy Results Results/Procedures Labs Patient resulted labs reviewed. Assessment/Plan Assessment and Plan Assess & Plan/Chief Complaint Assessment: Falls Debility Recent shoulder surgery left Bipolar d/o Chronic pain Neuropathy Chronic constipation CRI AF Plan: IRF protocol Home meds Check labs Cardiology consultation for cardiac management while hospitalized (1) Debility (2) Atrial fibrillation (3) Anticoagulated (4) Falls (5) Weakness Post Admission Physician Asses Date seen by provider: Feb 15, 2019 Time seen by provider: 10:20 The preadmission screen agrees with the post admission assessment that the patient is a good candidate for inpatient rehabilitation. The patient will have a comprehensive program of inpatient rehabilitation with a goal of maximizing level of functional independence prior to discharge home alone. The patient will have PT/OT ninety minutes per day, each discipline, five days a week for gait, strengthening, conditioning, balance, ADLs, any patient/family/caregiver training as necessary. Speech therapy to do cognitive assessment and treat as indicated. Rehabilitation nursing to assist with bowel, bladder, skin, wound care, medication administration, pain management. Hotel Supplies Salesperson to assist with discharge planning, community reentry. SCD's for DVT prophylaxis. She appears to be well motivated to participate in three hours of therapy a day. She should be able to tolerate three hours of therapy a day from a medical standpoint. She should benefit from the three hours of therapy a day. She has a reasonable discharge plan, reasonable discharge rehabilitation goals and a supportive family. She has various comorbidities that need to be closely monitored with medications and treatments adjusted on a daily basis as needed. These include: see list Barriers to discharge for this patient who had been independent prior to this are for her to be modified independent to supervision for ADLs and mobility skills prior to discharge home with [family], so as to lessen the burden of the caregivers. Risks for this patient include: 1. Fall 2. Fracture 3. DVT 4. Pulmonary embolism 5. Wound infection 6. Skin breakdown 7. Contractures 8. Poorly controlled pain 9. Urinary retention 10. UTI 11. Respiratory infection 12. Aspiration Estimated Length of Stay: 10 days Prognosis: Rehab prognosis appears good for goal of discharge home modified independent to supervision for ADLs and mobility skills. JACQUELINE QUINTANILLA DO Feb 15, 2019 10:59
--- NOTE | 2019-02-15 11:02 | Occupational Therapy Eval ---
OT Evaluation-General/PLF Medical Diagnosis Admission Date Feb 15, 2019 at 10:00 Medical Diagnosis: debility Onset Date: Feb 15, 2019 Therapy Diagnosis Therapy Diagnosis: impaired ADLs and mobility Height/Weight Height (Feet): 5 Height (Inches): 5.00 Weight (Pounds): 148 Weight (Ounces): 0.0 Precautions Precautions/Isolations: Standard Precautions Weight Bear Status Weight Bearing Restriction: Non Weight Bearing Location Restriction: L UE PT RECENTLY HAD rotator cuff repair (Left) on 01/24/[address] doctor John Chavez MD. pt has 3 phases for precautions Phase 1 (passive) week 1-4 full elevation, internal rotation and external rotation. no limitations Phase 2 (active) weeks 5&6 full motion in all planes with terminal stretch Phase 3 (resisted) week 7 Full motion with shrugs, row week 8 weight weight training, Referral Referral Reason: Activity Tolerance, Self Care, Evaluation/Treatment, Strengthening/ROM Medical History Pertinent Medical History: Atrial Fib, Hypothroidism Current History with an admitting diagnosis of DEBILITY AND GENERALIZIED MUSCLE WEAKNESS, on from HOME Reviewed History: Yes Social History Home: Single Level Current Living Status: Alone Entry Into Home: Level Entry ADL-Prior Level of Function Therapy Code Descriptions/Definitions Functional [place] Measure: 0=Not Assessed/NA 4=Minimal Assistance 1=Total Assistance 5=Supervision or Setup 2=Maximal Assistance 6=Modified [place] 3=Moderate Assistance 7=Complete [place] Therapy Quality Codes: 6 Independent with activity with or without an assistive device 5 Patient requires set up or clean up by helper. Patient completes activity by themselves 4 Supervision or touching assist (CGA). [place] provide cues , steadying assist 3 The helper provides less than half the effort to complete the activity 2 The helper provides more than half the effort to complete the activity 1 Dependent. The helper does all the effort to complete an activity 7 Patient refused to complete or attempt activity 9 The patient did not perform the activity before the current illness or injury 88 Not attempted due to Medical conditions or safety concerns Functional Abilities and Goals: Independent: Patient completed the activities by him/herself, with or without an assistive device, with no assistance from a helper. Needed Some Help: Patient needed partial assistance from another person to complete activities. Dependent: A helper completed the activities for the patient. Unknown: Not Applicable: Self Care: Independent Functional Cognition: Independent DME/Equipment: Bath Chair, Tub/Shower DME/Equipment Comments SPC and platform walker Drive Self: No OT Current Status Subjective pt laying in bed upon OT Arrival. daughter present in room. pt agreed to OT evaluation/ treatment session. pt complains of "slight pain" all over from her arthritis. pt reports having rotator cuff surgery in the beginning of the month. pt stated "I don't follow my precautions, it's to hard" daughter also stated pt does not follow rotator cuff precautions. pt and daughter education on importance of precautions and following phases for heeling process. both verbalized understanding. daughter stated she will bring pt sling in tomorrow. NSG notified. Mental Status/Objective Patient Orientation: Person, Place, Situation Current Glasses/Contacts: Yes Hearing Aids: No Dentures/Partials: Yes Hand Dominance: Right Upper Extremity ROM Right UE WFL Left UE shoulder NT secondary to previous rotator cuff surgery. Left elbow/ wrist/ digits WFL Upper Extremity Coordination WFL Upper Extremity Sensation WFL Upper Extremity Strength Right UE WFL Left UE shoulder NT secondary to previous rotator cuff surgery. Left elbow/ wrist/ digits WFL ADL-Treatment Bathing (FIM): 4 (pt requried MAX VC for Left shoulder precuations. noted serveral LOB during bathing requireing therapist to correct. ) Bathing Location: L Arm, R Arm, L Upper Leg, R Upper Leg, L Lower Leg ( including foot), R Lower Leg (including foot), Chest, Abdomen, Buttocks, Perineal Area Shower/Bathe Self (QC): 4 Upper Body Dressing (FIM): 2 (pt education on paris technique for UE dressing secodnaryto shoulder precuations. pt required MAX A to perorm task. additional trainin gwill be needed. ) Upper Body Dressing (QC): 1 Lower Body Dressing (FIM): 3 (pt demo ability to luz maria Romaine socks with cueing for safety. pt requried assist to pull up/ / down underpants and pants. ) Lower Body Dressing (QC): 2 On/Off Footwear (QC): 4 Toileting (FIM): 2 (pt required assist to pull up/ down pants. ) Toileting Hygiene (QC): 2 sit to stands performing during ADLs pt required MIN A with use of gait belt. pt demo 4 LOB during ADLs requiring therapist to correct. noted decrease activity tolerance. pt education on energy conservation techniques. Education OT Patient Education: Energy conservation, Modified ADL techniques, Progress toward Goal/Update tx plan, Purpose of tx/functional activities, Reviewed precautions, Rehab process, Safety issues Teaching Recipient: Patient, Family Teaching Methods: Demonstration, Discussion Response to Teaching: Verbalize Understanding, Return Demonstration, Reinforcement Needed OT Short Term Goals Short Term Goals Eating(FIM): 6 Grooming(FIM): 5 Bathing(FIM): 5 Bathing Location: L Arm, R Arm, L Upper Leg, R Upper Leg, L Lower Leg ( including foot), R Lower Leg (including foot), Chest, Abdomen, Buttocks, Perineal Area Upper Body Dressing(FIM): 5 Lower Body Dressing(FIM): 5 Toileting(FIM): 5 Transfers (B,C,W/C) (FIM): 5 Toilet/Commode Transfer(FIM): 5 Tub Transfer(FIM): 5 Shower Transfer(FIM): 5 1=Demonstrate adherence to instructed precautions during ADL tasks. 2=Patient will verbalize/demonstrate understanding of assistive devices/ modifications for ADL. 3=Patient will improve strength/tolerance for activity to enable patient to perform ADL's. OT Cherry Picker Operator Goals Cherry Picker Operator Goals Eating (FIM): 6 Eating (QC): 6 Groomin Oral Hygiene (QC): 6 Bathing(FIM): 6 Bathing Location: L Arm, R Arm, L Upper Leg, R Upper Leg, L Lower Leg ( including foot), R Lower Leg (including foot), Chest, Abdomen, Buttocks, Perineal Area Shower/Bathe Self (QC): 6 Upper Body Dressing(FIM): 6 Upper Body Dressing (QC): 6 Lower Body Dressing(FIM): 6 Lower Body Dressing (QC): 6 On/Off Footwear (QC): 6 Toileting(FIM): 6 Toileting Hygiene (QC): 6 Transfers (B,C,W/C) (FIM): 6 Toilet/Commode Transfer(FIM): 6 Toilet/Commode Transfer (QC): 6 Tub Transfer(FIM): 6 Shower Transfer(FIM): 6 Additional Goals: 1-Demonstrate ADL Tasks, 2-Verbalize Understanding, 3- ImproveStrength/Ashley 1=Demonstrate adherence to instructed precautions during ADL tasks. 2=Patient will verbalize/demonstrate understanding of assistive devices/ modifications for ADL. 3=Patient will improve strength/tolerance for activity to enable patient to perform ADL's. OT Education/Plan Problem List/Assessment Assessment: Decreased Activ Tolerance, Decreased Safety Aware, Decreased UE Strength, Impaired Funct Balance, Impaired I ADL's, Impaired Self-Care Skills, Restricted Funct UE ROM 78 year old female present to OT services secondary to frequent falls at home. pt had recently rotator cuff surgery on 01/24/19. during evaluation pt required total assist for LB dressing, total assist with UB dressing, MAX A for toileting , MIN A for sit to stands. pt presents with functional limitations affecting areas of ADLS and functional transfers with deficits in: decrease overall balance, activity tolerance/ endurance, decrease safety awareness, decrease ability to follow shoulder precautions, impaired IADLs, and decrease overall safety with functional task in sitting and standing. pt would benefit from skilled OT services to increase overall independence with ADLS and functional transfers and to address above mention deficits. Discharge Recommendations Plan/Recommendations: Continue POC Barriers to Progress left shoulder precaution Patient/Family Goals "to be safe while preforming my tasks" Treatment Plan/Plan of Care Treatment,Training & Education: Yes Patient would benefit from OT for education, treatment and training to promote independence in ADL's, mobility, safety and/or upper extremity function for ADL' s. Plan of Care: ADL Retraining, Caregiver Training, Concurrent Therapy, Functional Mobility, Group Exercise/Act as Ind, Orthotic Fitting/Training, UE Funct Exercise/Act Treatment Duration: March 08, 2019 Frequency: At least 5 of 7 days/Wk (IRF) Estimated Hrs Per Day: 1.5 hours per day Agreement: Yes Rehab Potential: Fair Time/GCodes Start Time: 10:15 Stop Time: 11:00 Billed Treatment Time EVM 15 minutes ADL 30 minutes TIANA FAGAN OT Feb 15, 2019 11:02
[2019-02-15] MEDS ORDERED: ACETAMINOPHEN 500 MG TAB (TYLENOL) PO PRN (11:15)
--- NOTE | 2019-02-15 11:30 | NUR ---
DR. VELASQUEZ NOTIFIED OF CONSULTATION.
--- NOTE | 2019-02-15 12:25 | ST Cognitive Linguistic Eval ---
Speech Evaluation-General Medical Diagnosis Debility Onset Date: Jan 24, 2019 Therapy Diagnosis Therapy Diagnosis: Cognitive-communication Precautions Precautions/Isolations: Fall Prevention, Standard Precautions, Pressure Ulcer Referral Referring Physician: Dr. Quintanilla Reason for Referral: Evaluation/Treatment Medical History Pertinent Medical History: Atrial Fib, Hypothroidism Reviewed History: Yes Social History Current Living Status: Alone Speech PLF-Current Status Prior Level of Function The patient lived alone and was assisted by her daughter for her daily needs. Subjective The patient was pleasant and cooperative with the bedside cognitive assessment. Language Eval: Auditory Comprehends Simple Yes/No Ques: Functional Indent/Objects Multiple Cherry: Functional Ident/Pics in Multiple Cherry: Functional Follows 1-Step Commands: Functional Follows Complex Directions: Functional Follows General Conversations: Functional Language Eval: Verbal Language Completes Spontaneous Greeting: Functional Produces Auto, Serial Info: Functional Imitates Simple Words/Phrases: Functional Word Finding: Functional Requests Basic Needs: Functional States Basic Personal Info: Functional Expresses Complex Ideas: Functional Objective Cognitive Domain Attention: WNL Memory: Mild Problem Solving: Functional Executive Functions: WNL Objective Results Siren Cognitive Assessment (MOCA) Oral Motor/Speech Production Within functional limits Impression The patient is a pleasant 78 year old woman who was admitted to the ARU for debility. She had rotator cuff surgery for a tear repair on 01/24/19 and has not been able to get her strength back since that time. She was given the MOCA at bedside with areas assessed within functional limits. The patient does not warrant skilled ST at this time. Communication/Social Cognition Comprehension: 7 Expression: 7 Social Interaction: 7 Problem Solvin Memory: 6 Speech Patient Assess Expression of Ideas/Wants: Expression (4) Understanding Verbal Content: Understands (4) Brief Interview-Mental Status: Yes Repetition of Three Words: Three (3) Temporal Orientation: Year: Correct (3) Temporal Orientation: Month: Accurate within 5 days(2) Temporal Orientation: Day: Correct (1) Recall : Wear to say "Sock": Yes, no cue required (2) Recall : Color: Yes, no cue required (2) Memory/Recall Ability: Current season, That he or she is in a hsp/hsp unit Speech-Plan Patient/Family Goals Patient/Family Goals: The patient plans to return home alone with assistance from her daughter for her daily needs. Treatment Plan Speech Therapy Treatment Plan: Discontinue ST The patient does not require skilled ST at this time. Treatment Duration: Feb 15, 2019 Frequency: 1 time per week Estimated Hrs Per Day: .25 hour per day Rehab Potential: Fair Barriers to Learning: Patient has had a recent surgery Pt/Family Agrees to Plan: Yes Safety Risks/Education Teaching Recipient: Patient, Family Teaching Methods: Discussion Response to Teaching: Verbalize Understanding Education Topics Provided: Safety within her room Time Speech Therapy Time In: 12:00 Speech Therapy Time Out: 12:15 Total Billed Time: 15 Billed Treatment Time 1, POLO Lopez Feb 15, 2019 12:25
--- NOTE | 2019-02-15 12:59 | Consultation-Cardiology ---
HPI-Cardiology Cardiology Consultation: Date of Consultation 02/15/19 Time Seen by a Provider: 12:45 Date of Admission Attending Physician Jacqueline Quintanilla DO Admitting Physician Stuart Jauregui MD Consulting Physician MOHINI VELASQUEZ MD, MA, FACP, FACC, FSCAI, CCDS HPI: Chief Complaint: Reason for consultation: Atrial fib 78 yo [address] to Dr Quintanilla with gen weakness and malaise. Has h/o A Fib , first diagnosed in or around 2017 since when she has been on apixaban. Denies cp or palp or syncope or shortness of breath or leg swelling Review of Systems-Cardiology Review of Systems Constitutional: malaise, tiredness Eyes: No vision change Ears/Nose/Throat: No ear discharge, No nasal drainage, No recent hearing loss Respiratory: As described under HPI Cardiovascular: As described under HPI Gastrointestinal: No constipation, No diarrhea, No nausea, No vomiting Genitourinary: No dysuria, No hematuria, No urine frequency changes Musculoskeletal: back pain, joint pain (chronic L shoulder pain) Skin: No rash, No ulcerations Psychiatric/Neurological: syncope; No seizure, No focal weakness Hematologic: No bleeding abnormalities PYG-Ekszjh-Qqlyha Hx Patient Social History Alcohol Use: Denies Use Recreational Drug Use: No 2nd Hand Smoke Exposure: No Recent Foreign Travel: No Recent Infectious Disease Expo: No Hospitalization with Isolation: Denies Physical Abuse Screen: No Sexual Abuse: No Immunizations Up To Date Tetanus Booster (TDap): Unknown Date of Pneumonia Vaccine: Aug 01, 2017 Date of Influenza Vaccine: Jul 31, 2018 Past Medical History PMH As described under Assessment. Family Medical History Family History: FH: stroke 19 FATHER G8 SISTER Myocardial infarction 19 FATHER G8 BROTHER G8 BROTHER Allergies and Home Medications Allergies Coded Allergies: morphine (Verified Adverse Reaction, Mild, N/V, 01/22/19) Uncoded Allergies: TAPE (Allergy, Mild, RASH, 01/22/19) Home Medications Acetaminophen 500 Mg Tablet, 1,000 MG PO Q6H PRN for PAIN-MILD, (Reported) TAKES 2 (500MG) TABLETS Alprazolam 1 Mg Tablet, 1.5 MG PO BID, (Reported) TAKES 1 & 1/2 (1MG) TABLET Apixaban 2.5 Mg Tablet, 2.5 MG PO BID, (Reported) Aspirin 81 Mg Tablet.dr, 81 MG PO MoWeFr, (Reported) Bupropion HCl 150 Mg Tablet.er, 150 MG PO BID, (Reported) Cholecalciferol (Vitamin D3) 1,000 Unit Capsule, 1,000 UNIT PO DAILY, (Reported) Ferrous Sulfate 325 Mg Tablet, 325 MG PO DAILY, (Reported) Flecainide Acetate 50 Mg Tablet, 50 MG PO BID, (Reported) Furosemide 20 Mg Tablet, 10 MG PO Q48H, (Reported) TAKES 1/2 (20MG) TABLET Gabapentin 300 Mg Capsule, 300 MG PO HS, (Reported) Levothyroxine Sodium 25 Mcg Tablet, 25 MCG PO DAILY, (Reported) Metoprolol Tartrate 25 Mg Tablet, 25 MG PO BID, (Reported) Omeprazole 20 Mg Capsule.dr, 20 MG PO DAILY, (Reported) Polyethylene Glycol 3350 17 Gm Powd.pack, 17 GM PO DAILY PRN for CONSTIPATION- 2ND LINE, (Reported) Pravastatin Sodium 40 Mg Tablet, 40 MG PO HS, (Reported) Tramadol HCl 50 Mg Tablet, 50 MG PO Q6H PRN for PAIN-MODERATE, (Reported) Trazodone HCl 100 Mg Tablet, 100 MG PO HS, (Reported) Patient Home Medication List Home Medication List Reviewed: Yes Physical Exam-Cardiology Physical Exam Vital Signs/I&O Capillary Refill : Constitutional: AAO x 3, well-developed, well-nourished HEENT: EOMI, hearing is well preserved; No xanthelasmas are seen Neck: carotid pulses are 2 + bilaterally, with good upstrokes Respiratory: No accessory muscle use; lungs clear to percussion, lungs clear to auscultation Cardiovascular: irregularly irregular, S1 and S2, systolic murmur (faint DONG at card base) Gastrointestinal: soft; No guarding, No rebound, No tenderness; audible bowel sounds Extremities: No clubbing, No cyanosis, No significant edema Neurologic/Psychiatric: oriented x 3, other (4/5 power bilat), grossly intact Skin: No rash on exposed areas, No ulcerations on exposed areas A/P-Cardiology Assessment/Admission Diagnosis Chronic persistent A Fib Mild CAD on card cath of 2016, according to the patient H/o hyperlipidemia Gen weakness, being evaluated and treated by Dr Quintanilla Discussion and Recomendations * Continue apixaban and statin * ECG * Echo * Further recs to based on hosp course * Try to obtain previous card records Clinical Quality Measures DVT/VTE Risk/Contraindication: Risk Factor Score Per Nursin RFS Level Per Nursing on Admit: 4+=Very High MOHINI VELASQUEZ MD FACP FAC CCDS Feb 15, 2019 12:59
--- NOTE | 2019-02-15 13:00 | NUR ---
DR. VELASQUEZ HERE TO SEE PATIENT. EKG DONE AND SEEN BY DR. VELASQUEZ.
--- NOTE | 2019-02-15 13:05 | Physical Therapy Evaluation ---
PT Evaluation-General Medical Diagnosis Admission Date Feb 15, 2019 at 10:00 Medical Diagnosis: Debility Onset Date: Jan 24, 2019 Therapy Diagnosis Therapy Diagnosis: impaired mobility, strength, endurance, balance Height/Weight Height (Feet): 5 Height (Inches): 5.00 Weight (Pounds): 148 Weight (Ounces): 0.0 Precautions Precautions/Isolations: Fall Prevention, Standard Precautions, Pressure Ulcer Weight Bear Status Patient has rotator cuff precautions on the left shoulder Referral Physician: Jacqueline Quintanilla DO Reason for Referral: Evaluation/Treatment Medical History Pertinent Medical History: Atrial Fib, Hypothroidism Additional Medical History Past Medical History Surgeries: Appendectomy, Breast, Gallbladder, Joint Replacement, Oophorectomy, Orthopedic, Tonsillectomy, Tubal Ligation Cardiac: Atrial Fibrillation, High Cholesterol, Hypertension Reproductive: No Sexually Transmitted Disease: No HIV/AIDS: No Gastrointestinal: Gastroesophageal Reflux, Chronic Constipation, Hiatal Hernia Musculoskeletal: Arthritis, Chronic Back Pain, Fractures Endocrine: Hypothyroidsim Loss of Vision: Bilateral Hearing Impairment: Denies Psychosocial: Anxiety, Bipolar, Depression Reviewed History: Yes Social History Home: Single Level Current Living Status: Alone Entry Into Home: Level Entry Prior/Core FIM Prior Level of Function Therapy Code Descriptions/Definitions Functional [place] Measure: 0=Not Assessed/NA 4=Minimal Assistance 1=Total Assistance 5=Supervision or Setup 2=Maximal Assistance 6=Modified [place] 3=Moderate Assistance 7=Complete [place] Therapy Quality Codes: 6 Independent with activity with or without an assistive device 5 Patient requires set up or clean up by helper. Patient completes activity by themselves 4 Supervision or touching assist (CGA). [place] provide cues , steadying assist 3 The helper provides less than half the effort to complete the activity 2 The helper provides more than half the effort to complete the activity 1 Dependent. The helper does all the effort to complete an activity 7 Patient refused to complete or attempt activity 9 The patient did not perform the activity before the current illness or injury 88 Not attempted due to Medical conditions or safety concerns Functional Abilities and Goals: Independent: Patient completed the activities by him/herself, with or without an assistive device, with no assistance from a helper. Needed Some Help: Patient needed partial assistance from another person to complete activities. Dependent: A helper completed the activities for the patient. Unknown: Not Applicable: Bed Mobility: 6 Transfers (B,C,W/C) (FIM): 6 Gait: 5 Indoor Mobility (Ambulation): Independent Patient has been ambulating with a platform walker (which violates her shoulder precautions) alone at home for short distances. PT Evaluation-Current Subjective Patient in bed pre tx, agrees to PT, has no complaints of pain at rest. Patient states she has not been using a sling for her left arm and has been using a platform walker. Pt/Family Goals to be independent at home Objective Patient Orientation: Person, Confused ROM/Strength ROM Lower Extremities WNL Strenght Lower Extremities right lower extremity (hip flexion 4-/5, knee flexion 4/5, knee extension 4/5, dorsiflexion 5/5), left lower extremity (hip flexion 3+/5, knee flexion 4-/5, knee extension 4-/5, dorsiflexion 5/5) Neuromuscular (Tone, Coordination, Reflexes) Patient has no abnormal clonus on the LLE and no babinski reflex. She seems to possibly have a slight facial droop on the left side. She has trouble following directions but seems to have decreased peripheral vision bilaterally and has trouble with tracking in general. Sensory Vision: Wears Glasses Hearing: Functional Hand Dominance: Right Sensation Right Lower Extremit: Impaired Sensation Left Lower Extremity: Impaired Sensation Lower Extremities Patient has impaired light touch sensation in both feet. Transfers Therapy Code Descriptions/Definitions Functional [place] Measure: 0=Not Assessed/NA 4=Minimal Assistance 1=Total Assistance 5=Supervision or Setup 2=Maximal Assistance 6=Modified [place] 3=Moderate Assistance 7=Complete [place] Therapy Quality Codes: 6 Independent with activity with or without an assistive device 5 Patient requires set up or clean up by helper. Patient completes activity by themselves 4 Supervision or touching assist (CGA). [place] provide cues , steadying assist 3 The helper provides less than half the effort to complete the activity 2 The helper provides more than half the effort to complete the activity 1 Dependent. The helper does all the effort to complete an activity 7 Patient refused to complete or attempt activity 9 The patient did not perform the activity before the current illness or injury 88 Not attempted due to Medical conditions or safety concerns Transfers (B, C, W/C) (FIM): 3 Scootin Rollin Roll Left to Right (QC): 3 Supine to/from Sit: 3 Sit to/from Stand: 4 bed t/f WC(FIM only if WC use): 4 Sit to Lying (QC): 2 Lying to Sitting/Side of Bed(Q: 2 Sit to Stand (QC): 3 Chair/Zjb-as-Brmbn Xfer(QC): 3 Car Transfer (QC): 3 Patient performs bed mobility with min assist, supine <-> sit with mod assist, sit <-> stand with min assist, transfers with min assist, car transfer min assist. Patient seems confused, cannot retain information from instructions for seemingly more than a few seconds, she needs constant cues for direction and safety, needs cues for hand placement with every transfer, has severely impaired safety awareness. Gait Does the Patient Walk?: Yes Mode of Locomotion: Walk Anticipated Mode of Locomotion: Walk Gait (FIM): 1 Walk 10 feet (QC): 88 Walk 50 ft with 2 Turns(QC): 88 Walk 150 ft (QC): 88 Walking 10ft/uneven surface-QC: 88 Distance: 8'x2 Gait Level of Assist: 4 Gait Persons Needed: 1 Gait Assistive Device: Cane Large Base Quad Comments/Gait Description Patient can ambulate 8' with a quad cane with min assist. She gets dizzy after about 8' and her O2 is 99% and HR is 106bpm. She stakes steps inches at a time and has no foot clearance. She is unsteady during ambulation and sometimes retropulsive. Wheelchair Training Does the Pt Use a Wheelchair?: Yes Stairs If not tested on admit;explain Patient doesn't have the foot clearance required to attempt stairs at this time. Balance Sitting Static: Fair Sitting Dynamic: Fair Standing Static: Poor Standing Dynamic: Poor Treatment seated LE exercises x20 (AP, marching), LAQ alternating for 5 min Assessment/Needs Patient has impaired mobility, strength, endurance, balance. She has extremely poor safety awareness and is at high risk for a fall. She is also not compliant with her shoulder precautions from a rotator cuff repair. Rehab Potential: Guarded PT Short Term Goals Short Term Goals Time Frame: February 22, 2019 Transfers (B,C,W/C) (FIM): 4 Gait (FIM): 1 Gait Distance Comment: 20' Gait Level of Assist: 4 Gait Assistive Device: FWW PT Fdc Goals Him Manager Goals PT Fdc Goals Time Frame: March 08, 2019 Transfers (B,C,W/C) (FIM): 4 (CGA) Sit to Lying (QC): 4 Lying-Sitting on Side/Bed(QC): 4 Sit to Stand (QC): 4 Rollin Roll Left to Right (QC): 4 Chair/Vfb-[id number] Xfer(QC): 4 Car Transfer (QC): 4 Gait (FIM): 2 Distance: 50' Walk 10 feet (QC): 4 Walk 10ft-Uneven Surface(QC): 4 Walk 50ft with 2 Turns (QC): 4 Gait Level of Assist: 4 Gait Assistive Device: Cane Large Base Quad Stairs (FIM): 1 # of Steps: 1 1 Step (curb) (QC): 4 Stairs Level Of Assist: 4 PT Plan Problem List Problem List: Activity Tolerance, Functional Strength, Safety, Balance, Gait, Transfer, Bed Mobility, ROM Treatment/Plan Treatment Plan: Continue Plan of Care Treatment Plan: Bed Mobility, Concurrent Therapy, Education, Functional Activity Ashley, Functional Strength, Group Therapy, Gait, Safety, Therapeutic Exercise, Transfers Treatment Duration: March 08, 2019 Frequency: At least 5 of 7 days/Wk (IRF) Estimated Hrs Per Day: 1.5 hours per day Patient and/or Family Agrees t: Yes Safety Risks/Education Patient Education: Gait Training, Transfer Techniques, Reviewed Precautions, Correct Positioning, Safety Issues Teaching Recipient: Patient Teaching Methods: Demonstration, Discussion Response to Teaching: Reinforcement Needed Discharge Recommendations Plan Patient will perform bed mobility and transfer training, balance and endurance training, functional strengthening, stair training, gait training, and education , to improve functional mobility and independence at home. Therapy D/C Recommendations: Home w/ Family Support, [facility] (TCU/NH) Time/GCodes Time In: 1100 Time Out: 1200 Total Billed Treatment Time: 60 Total Billed Treatment 1 visit EVM 30' EX 10' GT 20' MARY VARELA PT Feb 15, 2019 13:05
--- NOTE | 2019-02-15 14:43 | Occupational Ther Daily Note ---
OT Current Status-Daily Note Subjective No pain reported. Appearance Pt. in bed. Agrees to work with OT. Mental Status/Objective Patient Orientation: Unable to Assess Therapy Code Descriptions/Definitions Functional [place] Measure: 0=Not Assessed/NA 4=Minimal Assistance 1=Total Assistance 5=Supervision or Setup 2=Maximal Assistance 6=Modified [place] 3=Moderate Assistance 7=Complete [place] ADL-Treatment Therapy Code Descriptions/Definitions Functional [place] Measure: 0=Not Assessed/NA 4=Minimal Assistance 1=Total Assistance 5=Supervision or Setup 2=Maximal Assistance 6=Modified [place] 3=Moderate Assistance 7=Complete [place] Therapy Quality Codes: 6 Independent with activity with or without an assistive device 5 Patient requires set up or clean up by helper. Patient completes activity by themselves 4 Supervision or touching assist (CGA). [place] provide cues , steadying assist 3 The helper provides less than half the effort to complete the activity 2 The helper provides more than half the effort to complete the activity 1 Dependent. The helper does all the effort to complete an activity 7 Patient refused to complete or attempt activity 9 The patient did not perform the activity before the current illness or injury 88 Not attempted due to Medical conditions or safety concerns Lower Body Dressing (FIM): 3 (Pt. able to pull slipper socks off with effort, and with cues to not flex left shoulder. Pt. unable to don slipper socks. Pt. slightly incontinent of BM in brief. Unable to doff pants on her own. OT changed brief and pants for her.) Lower Body Dressing (QC): 3 On/Off Footwear (QC): 3 Toileting (FIM): 2 (Pt. requires assistance to pull down and up brief and pants. Assistance to thoroughly cleanse rear anahi area.) Toileting Hygiene (QC): 2 Transfers (B, C, W/C) (FIM): 3 (Mod assist for sit-supine. Min assist to stand from bed and chair. Pt. attempts to walk with quad cane, but this is difficulty. Movements not fluid and pt. stumbles. Ambulated 10 feet and then had to sit in wheelchair.) Toilet/Commode Transfer (FIM): 3 Toilet Transfer (QC): 3 This pt. is known to this therapist from previous visit in November. At that time, pt. was Mod I with all transfers and ADLs. Since then, pt. has sustained two UE surgeries and apparently has had multiple falls at home. At this time, pt. somewhat confused. Difficulty problem solving and following cues. Pt. is non weightbearing on left UE and is unable to actively flex left shoulder. However, pt. is unable to follow these precautions. Daughter to bring pt's sling. Pt. requires multiple cues and directions to complete each task. All needs are met back in room. Pt. requests to toilet and then transfers to bed. Education OT Patient Education: Correct positioning, Modified ADL techniques, Progress toward Goal/Update tx plan, Purpose of tx/functional activities, Reviewed precautions, Rehab process, Transfer techniques Teaching Recipient: Patient Teaching Methods: Demonstration, Discussion Response to Teaching: Verbalize Understanding, Return Demonstration OT Short Term Goals Short Term Goals Eating(FIM): 6 Grooming(FIM): 5 Bathing(FIM): 5 Bathing Location: L Arm, R Arm, L Upper Leg, R Upper Leg, L Lower Leg ( including foot), R Lower Leg (including foot), Chest, Abdomen, Buttocks, Perineal Area Upper Body Dressing(FIM): 5 Lower Body Dressing(FIM): 5 Toileting(FIM): 5 Transfers (B,C,W/C) (FIM): 4 Toilet/Commode Transfer(FIM): 5 Tub Transfer(FIM): 5 Shower Transfer(FIM): 5 1=Demonstrate adherence to instructed precautions during ADL tasks. 2=Patient will verbalize/demonstrate understanding of assistive devices/ modifications for ADL. 3=Patient will improve strength/tolerance for activity to enable patient to perform ADL's. OT Assisted Goals Assisted Goals Eating (FIM): 6 Eating (QC): 6 Groomin Oral Hygiene (QC): 6 Bathing(FIM): 6 Bathing Location: L Arm, R Arm, L Upper Leg, R Upper Leg, L Lower Leg ( including foot), R Lower Leg (including foot), Chest, Abdomen, Buttocks, Perineal Area Shower/Bathe Self (QC): 6 Upper Body Dressing(FIM): 6 Upper Body Dressing (QC): 6 Lower Body Dressing(FIM): 6 Lower Body Dressing (QC): 6 On/Off Footwear (QC): 6 Toileting(FIM): 6 Toileting Hygiene (QC): 6 Transfers (B,C,W/C) (FIM): 6 Toilet/Commode Transfer(FIM): 6 Toilet/Commode Transfer (QC): 6 Tub Transfer(FIM): 6 Shower Transfer(FIM): 6 Additional Goals: 1-Demonstrate ADL Tasks, 2-Verbalize Understanding, 3- ImproveStrength/Ashley 1=Demonstrate adherence to instructed precautions during ADL tasks. 2=Patient will verbalize/demonstrate understanding of assistive devices/ modifications for ADL. 3=Patient will improve strength/tolerance for activity to enable patient to perform ADL's. OT Education/Plan Problem List/Assessment Assessment: Decreased Activ Tolerance, Decreased Safety Aware, Decreased UE Strength, Dependent Transfers, Impaired Bed Mobility, Impaired Cognition, Impaired Coordination, Impaired Funct Balance, Impaired I ADL's, Impaired Self- Care Skills, Restricted Funct UE ROM 78 year old female present to OT services secondary to frequent falls at home. pt had recently rotator cuff surgery on 01/24/19. during evaluation pt required total assist for LB dressing, total assist with UB dressing, MAX A for toileting , MIN A for sit to stands. pt presents with functional limitations affecting areas of ADLS and functional transfers with deficits in: decrease overall balance, activity tolerance/ endurance, decrease safety awareness, decrease ability to follow shoulder precautions, impaired IADLs, and decrease overall safety with functional task in sitting and standing. pt would benefit from skilled OT services to increase overall independence with ADLS and functional transfers and to address above mention deficits. Discharge Recommendations Plan Pt. would benefit from skilled occupational therapy to increase overall strength and independence for daily tasks. Plan/Recommendations: Continue POC Therapy D/C Recommendations: 24 hr Supervision Comment To be determined. Treatment Plan/Plan of Care Treatment,Training & Education: Yes Patient would benefit from OT for education, treatment and training to promote independence in ADL's, mobility, safety and/or upper extremity function for ADL' s. Plan of Care: ADL Retraining, Caregiver Training, Concurrent Therapy, Functional Mobility, Group Exercise/Act as Ind, Orthotic Fitting/Training, UE Funct Exercise/Act Treatment Duration: March 08, 2019 Frequency: At least 5 of 7 days/Wk (IRF) Estimated Hrs Per Day: 1.5 hours per day Agreement: Yes Rehab Potential: Guarded Time/GCodes Start Time: 13:35 Stop Time: 14:25 Total Time Billed (hr/min): 50 Billed Treatment Time 1, ADL x 3 LANIE ELLINGTON OT Feb 15, 2019 14:43
--- NOTE | 2019-02-15 14:48 | Physical Therapy Daily Note ---
PT Daily Note-Current Subjective Patient in bed pre tx, agrees to PT but patient is very drowsy and lethargic, has no complaints of pain at rest. Appearance Patient in bed post tx with nurse call, phone, tray, bed alarm on. Mental Status Patient Orientation: Person, Confused Transfers Therapy Code Descriptions/Definitions Functional [place] Measure: 0=Not Assessed/NA 4=Minimal Assistance 1=Total Assistance 5=Supervision or Setup 2=Maximal Assistance 6=Modified [place] 3=Moderate Assistance 7=Complete [place] Therapy Quality Codes: 6 Independent with activity with or without an assistive device 5 Patient requires set up or clean up by helper. Patient completes activity by themselves 4 Supervision or touching assist (CGA). [place] provide cues , steadying assist 3 The helper provides less than half the effort to complete the activity 2 The helper provides more than half the effort to complete the activity 1 Dependent. The helper does all the effort to complete an activity 7 Patient refused to complete or attempt activity 9 The patient did not perform the activity before the current illness or injury 88 Not attempted due to Medical conditions or safety concerns Weight Bearing Patient has rotator cuff precautions on the left shoulder Exercises Supine Ex: Ankle pumps, Quad Set, Glut sets, Heel Slides, Short Arc Quads, Straight leg raise, Hip abd/add Supine Reps: 15 (BLE) Treatments LE exercises Assessment Current Status: Poor Progress patient very lethargic PT Short Term Goals Short Term Goals Time Frame: February 22, 2019 Transfers (B,C,W/C) (FIM): 4 Gait (FIM): 1 Gait Distance Comment: 20' Gait Level of Assist: 4 Gait Assistive Device: FWW PT Warp Hand Goals Shelter Goals PT Shelter Goals Time Frame: March 08, 2019 Transfers (B,C,W/C) (FIM): 4 (CGA) Sit to Lying (QC): 4 Lying-Sitting on Side/Bed(QC): 4 Sit to Stand (QC): 4 Rollin Roll Left to Right (QC): 4 Chair/Dtk-fd-Izyxa Xfer(QC): 4 Car Transfer (QC): 4 Gait (FIM): 2 Distance: 50' Walk 10 feet (QC): 4 Walk 10ft-Uneven Surface(QC): 4 Walk 50ft with 2 Turns (QC): 4 Gait Level of Assist: 4 Gait Assistive Device: Cane Large Base Quad Stairs (FIM): 1 # of Steps: 1 1 Step (curb) (QC): 4 Stairs Level Of Assist: 4 PT Plan Problem List Problem List: Activity Tolerance, Functional Strength, Safety, Balance, Gait, Transfer, Bed Mobility, ROM Treatment/Plan Treatment Plan: Continue Plan of Care Treatment Plan: Bed Mobility, Concurrent Therapy, Education, Functional Activity Ashley, Functional Strength, Group Therapy, Gait, Safety, Therapeutic Exercise, Transfers Treatment Duration: March 08, 2019 Frequency: At least 5 of 7 days/Wk (IRF) Estimated Hrs Per Day: 1.5 hours per day Patient and/or Family Agrees t: Yes Safety Risks/Education Patient Education: Correct Positioning, Safety Issues Teaching Recipient: Patient Teaching Methods: Demonstration, Discussion Response to Teaching: Reinforcement Needed Time/GCodes Time In: 1435 Time Out: 1445 Total Billed Treatment Time: 10 Total Billed Treatment 1 visit EX MARY DICKEY PT Feb 15, 2019 14:48
[2019-02-15 16:19] VITALS: BP 129/87
[2019-02-15] MEDS: ALPRAZolam 0.5 MG (XANAX) TAB PO SCH (20:05)
[2019-02-15] MEDS: buPROPion SR 150 MG (WELLBUTRIN SR) TAB PO SCH (20:06)
[2019-02-15] MEDS: APIXABAN 2.5 MG (ELIQUIS) TABLET PO SCH (20:06)
[2019-02-15] MEDS: FLECAINIDE 100 MG (TAMBOCOR) TAB PO SCH (20:06)
[2019-02-15] MEDS: meTOprolol TARTRATE 25 MG (LOPRESSOR) TABLET PO SCH (20:07)
[2019-02-15 20:11] VITALS: BP 126/75
[2019-02-15] MEDS ORDERED: GABAPENTIN 300 MG (NEURONTIN) CAP PO SCH (21:00)
[2019-02-15] MEDS ORDERED: traZODone 100 MG (DESYREL) TAB PO SCH (21:00)
[2019-02-15] MEDS ORDERED: ALPRAZolam 1 MG (XANAX) TAB PO SCH (21:00)
[2019-02-15] MEDS ORDERED: SIMvastatin 20 MG (ZOCOR) TAB PO SCH (21:00)
[2019-02-16 04:52] VITALS: BP 115/77
[2019-02-16] MEDS: LEVOTHYROXINE 25 MCG (LEVOTHROID) TAB PO SCH (06:17)
[2019-02-16] MEDS: FERROUS SULF 325 MG (IRON) TAB PO SCH (06:17)
[2019-02-16] MEDS: VITAMIN D3 1,000 UNITS (CHOLECALCIFEROL) TABLET PO SCH (06:17)
--- NOTE | 2019-02-16 08:35 | PM&R Progress Note ---
Subjective HPI/CC On Admission Date Seen by Provider: Feb 16, 2019 Time Seen by Provider: 08:45 Subjective/Events-last exam Pt very drowsy and RN is very concerned about overmedication and that could very well cause falls that she is having home I review all of her medication including Trazadone, Xanax, and Gabapentin, and I decreased all doses significantly Will work to decrease over-medication while she is here Has an area on her spine that has a little bit of a wound so will dress that Reviewed therapy notes and she is participating in all therapies Appear to be very drowsy throughout the night so that is something that will be a focus Barriers to returning home is remaining independent and ambulating and fall risk prevention and she will go back to [facility] to live independently Will check labs since they haven't been checked She does see Nephrology at [facility] Appreciated Dr. Herring's consultation for cardiology Later once labs reviewed noted low platelets and elevated LFT's so will decrease the Tylenol dose significantly and hold statin Review of Systems General: Fatigue Neurological: Weakness, Confusion Objective Exam Vital Signs Vital Signs Date Time Temp Pulse Resp B/P (MAP) Pulse Ox O2 Delivery O2 Flow Rate FiO2 02/16/19 17:17 97.2 72 24 120/83 (95) 98 Room Air Capillary Refill : General Appearance: No Apparent Distress, WD/WN, Chronically ill, Other (drowsy ) HEENT: PERRL/EOMI, Normal ENT Inspection, Pharynx Normal Neck: Full Range of Motion, Normal Inspection, Non Tender, Supple Respiratory: Chest Non Tender, Lungs Clear, Normal Breath Sounds, No Accessory Muscle Use, No Respiratory Distress Cardiovascular: No Edema, No Gallop, No JVD, No Murmur, Normal Peripheral Pulses, Irregularly Irregular Gastrointestinal: Normal Bowel Sounds, No Organomegaly, No Pulsatile Mass, Non Tender, Soft Back: Normal Inspection, No CVA Tenderness, No Vertebral Tenderness Extremity: Normal Capillary Refill, Normal Inspection, Normal Range of Motion, Non Tender, No Calf Tenderness Neurologic/Psychiatric: Alert, Oriented x3, Normal 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 FIM Transfers Therapy Code Descriptions/Definitions Functional [place] Measure: 0=Not Assessed/NA 4=Minimal Assistance 1=Total Assistance 5=Supervision or Setup 2=Maximal Assistance 6=Modified [place] 3=Moderate Assistance 7=Complete [place] Therapy Quality Codes: 6 Independent with activity with or without an assistive device 5 Patient requires set up or clean up by helper. Patient completes activity by themselves 4 Supervision or touching assist (CGA). [place] provide cues , steadying assist 3 The helper provides less than half the effort to complete the activity 2 The helper provides more than half the effort to complete the activity 1 Dependent. The helper does all the effort to complete an activity 7 Patient refused to complete or attempt activity 9 The patient did not perform the activity before the current illness or injury 88 Not attempted due to Medical conditions or safety concerns Mental Status/Objective Comprehension: 7 Expression: 7 Social Interaction: 7 Problem Solvin Memory: 6 ADL-Treatment Bathin (pt requried MAX VC for Left shoulder precuations. noted serveral LOB during bathing requireing therapist to correct. ) Bathing Location: L Arm, R Arm, L Upper Leg, R Upper Leg, L Lower Leg ( including foot), R Lower Leg (including foot), Chest, Abdomen, Buttocks, Perineal Area Shower/Bathe Self (QC): 4 Upper Extremity Dressin (pt education on paris technique for UE dressing secodnaryto shoulder precuations. pt required MAX A to perorm task. additional trainin gwill be needed. ) Upper Body Dressing (QC): 1 Lower Extremity Dressin (Pt. able to pull slipper socks off with effort, and with cues to not flex left shoulder. Pt. unable to don slipper socks. Pt. slightly incontinent of BM in brief. Unable to doff pants on her own. OT changed brief and pants for her.) Lower Body Dressing (QC): 3 On/Off Footwear (QC): 3 Toiletin (Pt. requires assistance to pull down and up brief and pants. Assistance to thoroughly cleanse rear anahi area.) Toileting Hygiene (QC): 2 Toilet/Commode Transfer: 3 Toilet Transfer (QC): 3 Assessment/Plan Assessment and Plan Assess & Plan/Chief Complaint Assessment: Falls Debility Recent shoulder surgery left Bipolar d/o Chronic pain Neuropathy Chronic constipation CRI AF Elevated LFT's Overuse of meds Drowsiness Plan: IRF protocol Home meds Check labs Cardiology consultation for cardiac management while hospitalized is appreciated Hold statin Minimize Tylenol Minimize all sedating meds (1) Debility (2) Thrombocytopenia (3) Overuse of medication (4) Drowsiness (5) Atrial fibrillation (6) Anticoagulated (7) Elevated liver enzymes (8) Fall on same level (9) Falls (10) Weakness PATRICE ISAAC DO Feb 16, 2019 08:35
[2019-02-16 09:30] LABS: BASOPHILS % (AUTO) 1 % (0-10); EOSINOPHILS # (AUTO) 0.1 10^3/uL (0.0-0.3); EOSINOPHILS % (AUTO) 2 % (0-10); HEMATOCRIT 40 % (35-52); HEMOGLOBIN 12.9 G/DL (11.5-16.0); LYMPHOCYTES # (AUTO) 1.5 X 10^3 (1.0-4.0); LYMPHOCYTES % (AUTO) 26 % (12-44); MEAN CORPUSCULAR HEMOGLOBIN 33 PG (25-34); MEAN CORPUSCULAR HGB CONC 32 G/DL (32-36); MEAN CORPUSCULAR VOLUME 101 FL (80-99); MONOCYTES # (AUTO) 0.6 X 10^3 (0.0-1.0); MONOCYTES % (AUTO) 10 % (0-12); NEUTROPHILS # (AUTO) 3.6 X 10^3 (1.8-7.8); NEUTROPHILS % (AUTO) 63 % (42-75); PLATELET COUNT 101 10^3/uL (130-400); WHITE BLOOD COUNT 5.8 10^3/uL (4.3-11.0)
[2019-02-16 09:50] LABS: ALANINE AMINOTRANSFERASE 243 U/L (0-55); ALBUMIN 3.6 GM/DL (3.2-4.5); ALKALINE PHOSPHATASE 127 U/L (40-136); BILIRUBIN,TOTAL 0.9 MG/DL (0.1-1.0); BUN/CREATININE RATIO 13; CALCIUM 9.1 MG/DL (8.5-10.1); CARBON DIOXIDE 21 MMOL/L (21-32); CHLORIDE 102 MMOL/L (98-107); CREATININE SERUM 0.84 MG/DL (0.60-1.30); GFR ESTIMATED > 60; GLUCOSE 138 MG/DL (70-105); POTASSIUM 3.9 MMOL/L (3.6-5.0); SODIUM 134 MMOL/L (135-145)
--- NOTE | 2019-02-16 10:00 | NUR ---
CONCAVER met with patient to complete initial assessment. CONCAVER is familiar with patient as she previously completed a ARU stay in Oct 2017 following a hip fracture. Patient was alert and oriented and agreeable to assessment. Patient resides alone in [address] in [place], [place]. 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 Patient admitted to rehab this admission with debility following several previous falls, with the main cause as dizziness and loss of balance. She reports approx. 7-8 falls in the last year. Prior to this admission, patient reports utilizing a SPC for ambulations. She also possesses a FWW, a tub with a seat, grab bars and tall toilets. Patient identifies daughter, Ivette as primary support ([phone]). Ivette works real time analyst days, but her schedule is very flexible and allows her to check on her mom, when needed. Verified PCP as Dr. Stuart Jauregui, [employer] [facility] as Dr. Radha Nixon at [facility]. Patient has [facility] and [facility] for insurance coverage and utilizes [facility] or [facility]. CONCAVER reviewed typical rehab length of stay and weekly team conferences with patient, she expressed no concerns with these; however, she does complain of a feeling of haze over her eyes and double vision one glasses are off. Patient reports this problem for approximately 6 months and is in need an exhibition designer appointment with Dr. Carlin of [place]. Patient open to option of C at discharge, if needed. Due to previous significant history of falls CONCAVER inquired about alternative living arrangements post discharge. Patient and daughter have spoken alternative arrangements; however, have not given serious thought to this. CONCAVER will follow for appropriate discharge needs.
--- NOTE | 2019-02-16 10:12 | Physical Therapy Daily Note ---
PT Daily Note-Current Subjective Pt. in bed upon arrival and agreed to treatment. Pt. had no complaints of pain. Pt. seemed to be drowsy when therapy arrived. Mental Status Patient Orientation: Person, Eyes Open, Situation Attachments: Other-See Comments (sling LUE) Transfers Therapy Code Descriptions/Definitions Functional [place] Measure: 0=Not Assessed/NA 4=Minimal Assistance 1=Total Assistance 5=Supervision or Setup 2=Maximal Assistance 6=Modified [place] 3=Moderate Assistance 7=Complete [place] Therapy Quality Codes: 6 Independent with activity with or without an assistive device 5 Patient requires set up or clean up by helper. Patient completes activity by themselves 4 Supervision or touching assist (CGA). Alliance provide cues , steadying assist 3 The helper provides less than half the effort to complete the activity 2 The helper provides more than half the effort to complete the activity 1 Dependent. The helper does all the effort to complete an activity 7 Patient refused to complete or attempt activity 9 The patient did not perform the activity before the current illness or injury 88 Not attempted due to Medical conditions or safety concerns Transfers (B, C, W/C) (FIM): 3 Scootin Supine to/from Sit: 4 Sit to/from Stand: 3 Sit to Stand (QC): 3 Pt. requires repeated skilled instruction during transfers. Therapist has to demonstrate multiple times on how to transfer safely. Pt. needs instructed in wt shift forward, foot placement and use of hands to elevate Weight Bearing Patient has rotator cuff precautions on the left shoulder Gait Training Does the Patient Walk?: Yes Gait (FIM): 1 Distance (FIM): 1=up to 49 ft Distance: 8', 14' Gait Level of Assist: 3 Gait Persons Needed: 1 (with w/c to) Pt. ambulates with small steps and ene at the knees frequently. Pt. needs step by step instruction at times for safety , weight shift and alignment during gait.. Therapist stays positioned to provide stabilization at knees and hips for alignment and balance and awareness of her position in space Wheelchair Training Does the Pt Use a Wheelchair?: No Wheelchair Distance: 0=does not occure Type of Wheelchair: Manual Exercises Seated Therapy Exercises: Ankle pumps, Sit to stand, Long arc quads, Hip flexion Seated Reps: 12 Treatments Pt. transferred from bed to with mod assist and much instruction. Therapist wheeled pt down to therapy room. Pt. ambulated inside parallel bars with 8-10ft with mod assist WC right behind her. Pt. reported getting dizzy transferring from sit to stand so therapist took BP measures and nurse was notified. BP measures were 127/82, 128/89 and 127/78. HR fluctuated between 70 and 110. O2 sats 97% Nurse noted that heart rate would fluctuate due to chronic A fib. Pt. then ambulated out in hallway using 1 hand on railing. Therapist had to make sure knees did not buckle during ambulation. Pt. was then wheeled back to room and left up in WC with call light and all needs met. Nurse put WC alarm on in case pt. tried to get up. Assessment Current Status: Fair Progress Pt. needs much skilled verbal instruction for safe movement during therapy treatment. Pt. has some cognitive deficit and requires continued encouragement and instruction. Pt. will continue to benefit from therapy to improve strength, balance and mobility. PT Short Term Goals Short Term Goals Time Frame: February 22, 2019 Transfers (B,C,W/C) (FIM): 4 Gait (FIM): 1 Gait Distance Comment: 20' Gait Level of Assist: 4 Gait Assistive Device: FWW PT Mechanical Engineering Coop Goals Care Home Goals PT Care Home Goals Time Frame: March 08, 2019 Transfers (B,C,W/C) (FIM): 4 (CGA) Sit to Lying (QC): 4 Lying-Sitting on Side/Bed(QC): 4 Sit to Stand (QC): 4 Rollin Roll Left to Right (QC): 4 Chair/Evx-ls-Osbub Xfer(QC): 4 Car Transfer (QC): 4 Gait (FIM): 2 Distance: 50' Walk 10 feet (QC): 4 Walk 10ft-Uneven Surface(QC): 4 Walk 50ft with 2 Turns (QC): 4 Gait Level of Assist: 4 Gait Assistive Device: Cane Large Base Quad Stairs (FIM): 1 # of Steps: 1 1 Step (curb) (QC): 4 Stairs Level Of Assist: 4 PT Plan Treatment/Plan Treatment Plan: Continue Plan of Care Treatment Plan: Bed Mobility, Concurrent Therapy, Education, Functional Activity Ashley, Functional Strength, Group Therapy, Gait, Safety, Therapeutic Exercise, Transfers Treatment Duration: March 08, 2019 Frequency: At least 5 of 7 days/Wk (IRF) Estimated Hrs Per Day: 1.5 hours per day Patient and/or Family Agrees t: Yes Safety Risks/Education Patient Education: Gait Training, Transfer Techniques, Correct Positioning, W/ C Management, Disease Process, Safety Issues Teaching Recipient: Patient Teaching Methods: Demonstration, Discussion Response to Teaching: Return Demonstration, Reinforcement Needed Time/GCodes Time In: 900 Time Out: 1000 Total Billed Treatment Time: 60 Total Billed Treatment 1, GT x 35 min, FA x 25 min G Codes Necessary: DEVIN Isaac KETTLE TENDER Feb 16, 2019 10:12
--- NOTE | 2019-02-16 10:17 | Progress Note-Cardiology ---
Cardiology SOAP Progress Note Subjective: Continuing gen weakness No new symptoms No cp or palp or syncope Mod shortness of breath with exertion Objective: I&O/Vital Signs 02/16/19 04:52 Temp 98.2 Pulse 100 Resp 16 B/P (MAP) 115/77 (90) Pulse Ox 93 O2 Delivery Room Air 02/16/19 00:00 Intake Total 600 ml Balance 600 ml Weight (Pounds): 148 Weight (Ounces): 0.0 Weight (Calculated Kilograms): 67.050133 Constitutional: AAO x 3, well-developed, well-nourished Respiratory: No accessory muscle use; lungs clear to percussion, lungs clear to auscultation Cardiovascular: irregularly irregular, S1 and S2, systolic murmur (faint DONG at card base) Gastrointestional: soft; No guarding, No rebound, No tenderness; audible bowel sounds Extremities: No clubbing, No cyanosis, No significant edema Neurologic/Psychiatric: oriented x 3, other (4/5 power bilat), grossly intact Skin: No rash on exposed areas, No ulcerations on exposed areas Results/Procedures: Labs Laboratory Tests 02/16/19 09:20: White Blood Count 5.8, Red Blood Count 3.93L, Hemoglobin 12.9, Hematocrit 40, Mean Corpuscular Volume 101H, Mean Corpuscular Hemoglobin 33, Mean Corpuscular Hemoglobin Concent 32, Red Cell Distribution Width 15.0H, Platelet Count 101L, Mean Platelet Volume 10.0, Neutrophils (%) (Auto) 63, Lymphocytes (%) (Auto) 26 , Monocytes (%) (Auto) 10, Eosinophils (%) (Auto) 2, Basophils (%) (Auto) 1, Neutrophils # (Auto) 3.6, Lymphocytes # (Auto) 1.5, Monocytes # (Auto) 0.6, Eosinophils # (Auto) 0.1, Basophils # (Auto) 0.0, Sodium Level 134L, Potassium Level 3.9, Chloride Level 102, Carbon Dioxide Level 21, Anion Gap 11, Blood Urea Nitrogen 11, Creatinine 0.84, Estimat Glomerular Filtration Rate > 60, BUN/ Creatinine Ratio 13, Glucose Level 138H, Calcium Level 9.1, Corrected Calcium 9.4, Total Bilirubin 0.9, Aspartate Amino Transf (AST/SGOT) 140H, Alanine Aminotransferase (ALT/SGPT) 243H, Alkaline Phosphatase 127, Total Protein 6.0L, Albumin 3.6, Thyroid Stimulating Hormone (TSH) 4.21 Laboratory Tests 02/16/19 09:20 A/P: Assessment: Chronic persistent A Fib Mild CAD on card cath of 2016, according to the patient H/o hyperlipidemia Gen weakness, being evaluated and treated by Dr Quintanilla Plan: * Continue apixaban and statin * Echo * Try to obtain previous card records * Monitor labs from time to time MOHINI VELASQUEZ MD FACP FAC CCDS Feb 16, 2019 10:17
[2019-02-16] MEDS: ALPRAZolam 0.5 MG (XANAX) TAB PO SCH ×2 (10:29→19:56)
[2019-02-16] MEDS: APIXABAN 2.5 MG (ELIQUIS) TABLET PO SCH ×2 (10:29→19:57)
[2019-02-16] MEDS: meTOprolol TARTRATE 25 MG (LOPRESSOR) TABLET PO SCH ×2 (10:29→19:56)
[2019-02-16] MEDS: FLECAINIDE 100 MG (TAMBOCOR) TAB PO SCH ×2 (10:29→19:57)
[2019-02-16] MEDS: buPROPion SR 150 MG (WELLBUTRIN SR) TAB PO SCH ×2 (10:29→19:56)
[2019-02-16] MEDS: PANTOPRAZOLE 20 MG TABLET (PROTONIX) PO SCH (10:29)
[2019-02-16] MEDS: ASPIRIN 81 MG CHEW (CHILDREN'S ASA) PO SCH (11:04)
--- NOTE | 2019-02-16 11:50 | Occupational Ther Daily Note ---
OT Current Status-Daily Note Subjective Pt seen in room, up in w/c, agreeable to OT. No pain mentioned. Appearance Pt very sleepy, with difficulty staying awake until she was up and doing ADLs. Nursing notified. Mental Status/Objective Therapy Code Descriptions/Definitions Functional [place] Measure: 0=Not Assessed/NA 4=Minimal Assistance 1=Total Assistance 5=Supervision or Setup 2=Maximal Assistance 6=Modified [place] 3=Moderate Assistance 7=Complete [place] ADL-Treatment Pt attempted to use L UE to push up from w/c. Cues needed to not actively use her L shoulder. Unsteady walking to bathroom using platform walker and needed min assist, extra time. Needed cues to get her balance for managing clothing during toileting and min assist with balance and clothing management. Therapy Code Descriptions/Definitions Functional [place] Measure: 0=Not Assessed/NA 4=Minimal Assistance 1=Total Assistance 5=Supervision or Setup 2=Maximal Assistance 6=Modified [place] 3=Moderate Assistance 7=Complete [place] Therapy Quality Codes: 6 Independent with activity with or without an assistive device 5 Patient requires set up or clean up by helper. Patient completes activity by themselves 4 Supervision or touching assist (CGA). Reserve provide cues , steadying assist 3 The helper provides less than half the effort to complete the activity 2 The helper provides more than half the effort to complete the activity 1 Dependent. The helper does all the effort to complete an activity 7 Patient refused to complete or attempt activity 9 The patient did not perform the activity before the current illness or injury 88 Not attempted due to Medical conditions or safety concerns Eating (FIM): 5 (Pt needed lower table so that she could use her L hand as a helper for eating. Setup needed for some items - she may need some foods cut up if they are tough. Used fork to open drink can. Able to get food to her mouth and get a drink, using R hand. Supervision) Eating (QC): 4 (supervision) Grooming (FIM): 5 (Setup, supervision for grooming at sink, seated. Some cues for attending to items in environment but it got better as she was more awake. Washed face, brushed teeth, combed hair. Cues to use L hand in lap but not to bring hand up to sink counter actively. ) Oral Hygiene (QC): 4 (supervision) Toileting (FIM): 2 (Help to get pants up and down but able to wipe with verbal cues for problem solving. Min assist to maintain balance while managing clothing. Used grab bar on R side of toilet. Platform walker. ) Toileting Hygiene (QC): 2 Toilet/Commode Transfer (FIM): 4 (Min to CGA assist to get on/off tall toilet, using grab bar. ) Pt was left up in w/c to finish eating, chair alarm on, all needs met. Nursing notified about using lower table. Education OT Patient Education: Modified ADL techniques, Progress toward Goal/Update tx plan, Purpose of tx/functional activities, Reviewed precautions, Safety issues, Transfer techniques Teaching Recipient: Patient Teaching Methods: Demonstration, Discussion Response to Teaching: Verbalize Understanding, Return Demonstration, Reinforcement Needed OT Short Term Goals Short Term Goals Eating(FIM): 6 Grooming(FIM): 5 Bathing(FIM): 5 Bathing Location: L Arm, R Arm, L Upper Leg, R Upper Leg, L Lower Leg ( including foot), R Lower Leg (including foot), Chest, Abdomen, Buttocks, Perineal Area Upper Body Dressing(FIM): 5 Lower Body Dressing(FIM): 5 Toileting(FIM): 5 Transfers (B,C,W/C) (FIM): 4 Toilet/Commode Transfer(FIM): 5 Tub Transfer(FIM): 5 Shower Transfer(FIM): 5 1=Demonstrate adherence to instructed precautions during ADL tasks. 2=Patient will verbalize/demonstrate understanding of assistive devices/ modifications for ADL. 3=Patient will improve strength/tolerance for activity to enable patient to perform ADL's. OT Head Shipper Goals Head Shipper Goals Eating (FIM): 6 Eating (QC): 6 Groomin Oral Hygiene (QC): 6 Bathing(FIM): 6 Bathing Location: L Arm, R Arm, L Upper Leg, R Upper Leg, L Lower Leg ( including foot), R Lower Leg (including foot), Chest, Abdomen, Buttocks, Perineal Area Shower/Bathe Self (QC): 6 Upper Body Dressing(FIM): 6 Upper Body Dressing (QC): 6 Lower Body Dressing(FIM): 6 Lower Body Dressing (QC): 6 On/Off Footwear (QC): 6 Toileting(FIM): 6 Toileting Hygiene (QC): 6 Transfers (B,C,W/C) (FIM): 6 Toilet/Commode Transfer(FIM): 6 Toilet/Commode Transfer (QC): 6 Tub Transfer(FIM): 6 Shower Transfer(FIM): 6 Additional Goals: 1-Demonstrate ADL Tasks, 2-Verbalize Understanding, 3- ImproveStrength/Ashley 1=Demonstrate adherence to instructed precautions during ADL tasks. 2=Patient will verbalize/demonstrate understanding of assistive devices/ modifications for ADL. 3=Patient will improve strength/tolerance for activity to enable patient to perform ADL's. OT Education/Plan Problem List/Assessment 78 year old female present to OT services secondary to frequent falls at home. pt had recently rotator cuff surgery on 01/24/19. during evaluation pt required total assist for LB dressing, total assist with UB dressing, MAX A for toileting , MIN A for sit to stands. pt presents with functional limitations affecting areas of ADLS and functional transfers with deficits in: decrease overall balance, activity tolerance/ endurance, decrease safety awareness, decrease ability to follow shoulder precautions, impaired IADLs, and decrease overall safety with functional task in sitting and standing. pt would benefit from skilled OT services to increase overall independence with ADLS and functional transfers and to address above mention deficits. Discharge Recommendations Plan/Recommendations: Continue POC Treatment Plan/Plan of Care Patient would benefit from OT for education, treatment and training to promote independence in ADL's, mobility, safety and/or upper extremity function for ADL' s. Plan of Care: ADL Retraining, Caregiver Training, Concurrent Therapy, Functional Mobility, Group Exercise/Act as Ind, Orthotic Fitting/Training, UE Funct Exercise/Act Treatment Duration: March 08, 2019 Frequency: At least 5 of 7 days/Wk (IRF) Estimated Hrs Per Day: 1.5 hours per day Agreement: Yes Rehab Potential: Guarded Time/GCodes Start Time: 10:40 Stop Time: 11:40 Total Time Billed (hr/min): 60 Billed Treatment Time visit, 60 minutes ADL PAUL MCDOWELL OT Feb 16, 2019 11:50
--- NOTE | 2019-02-16 14:41 | Therapy Group Daily Note ---
Therapy Daily Group Note Patient Education Topic Home Safety, Fall Prevention, Home Safety, Energy Cons Session Ratio (pt:therapist): 4:1 Goal of Session: Energy Conservation Tech., Home Safety Strategies, Safety with Transfers, Use of Adaptive Equipment Goal Met for this Session: Yes Pt Benefit of Group: Contributions to Others, F/U Use of Strategies @Home, Increased Functional Safety, Recognition of Peers, Socialization Other/Notes pt transported to OT group this pm VIA w/c Pt introduced self to group for socialization. Education was provided regarding home safety including potential hazards and solutions for common problem areas. each room of home discussed in session. AE/ modification discussed to increase safety within home. Education also included energy conservation during functional tasks. Pt contributed appropriately to group discussion and was able to identify possible areas for improvement needed in her own home situation. Pt actively listened to education and states understanding. Pt returned to room, sitting in chair with needs met after session. Start Time: 13:00 Stop Time: 14:00 Total Billed Treatment GRP 60 minutes TIANA FAGAN OT Feb 16, 2019 14:41
[2019-02-16 17:17] VITALS: BP 120/83
--- NOTE | 2019-02-16 19:29 | Individualized Plan of Care ---
Individualized Plan of Care Rehab Nursing IPOC Order Admission Date Feb 15, 2019 at 10:00 Current Orders Orders Admission Order(Inpt,Obs,Sdc) (02/15/19 10:01) Vital Signs: Per Unit Policy ( 08,16,00 (02/15/19 10:01) Counselor Education Professor-Inpt Rehab Con (02/15/19 10:01) Rehab Nursing Orders-Ipoc (02/15/19 10:01) Physical Therapy Rehab Orders (02/15/19 10:01) Occupational Therapy Rehab Ord (02/15/19 10:01) Speech Therapy Rehab Orders (02/15/19 10:01) General/Regular (02/15/19 Lunch) Intake & Output 06,14,22 (02/15/19 10:01) Precautions (Aru) (02/15/19 10:01) Weekly Weight (Lbs) WEEK (02/15/19 10:01) Rehab-Intensity Of Therapy (02/15/19 10:01) Code/Resuscitation (02/15/19 10:01) Initiate Admission Nursing Pro .admission (02/15/19 10:01) Consult Cardiology (02/15/19 10:32) Apixaban Tablet (Eliquis Tablet) (02/15/19 21:00) Ferrous Sulfate Tablet (Feosol Tablet) (02/16/19 07:00) Gabapentin Capsule/Tablet (Neurontin Cap (02/15/19 21:00) Levothyroxine Tablet (Synthroid Tablet) (02/16/19 06:30) Metoprolol Tartrate (Ir) Tab (Lopressor (02/15/19 21:00) Tramadol Tablet (Ultram Tablet) (02/15/19 11:00) Trazodone Tablet (Desyrel Tablet) (02/15/19 21:00) Acetaminophen Tablet (Tylenol Tablet) (02/15/19 11:15) Aspirin Chewable Tablet (Baby Aspirin Ch (02/16/19 09:00) Bupropion Sr 12 Hr Tablet (Wellbutrin Sr (02/15/19 21:00) Cholecalciferol Capsule/Tablet (Vitamin (02/16/19 06:00) Flecainide Tablet (Tambocor Tablet) (02/15/19 21:00) Polyethylene Glycol Powder Pkt (Miralax (02/15/19 11:09) Simvastatin Tablet (Zocor Tablet) (02/15/19 21:00) Alprazolam Tablet (Xanax Tablet) (02/15/19 21:00) Alprazolam Tablet (Xanax Tablet) (02/15/19 21:00) Furosemide Tablet (Lasix Tablet) (02/17/19 09:00) Pantoprazole Tablet (Protonix Tablet) (02/16/19 09:00) Ambulate 08,12,20 (02/15/19 11:33) Sequential Compression Device 08,20 (02/15/19 11:33) Dvt/Vte Risk - Notifiy Physici 08 (02/15/19 11:33) Patient Visit (02/15/19 ) Speech Sound Lang Comp (02/15/19 ) Ekg Tracing (02/15/19 12:54) Patient Visit (02/15/19 ) Pt Eval Moderate Complexity (02/15/19 ) Gait Training, Ea 15 Min (02/15/19 ) Exercise Therap, Ea 15 Min (02/15/19 ) Cbc With Automated Diff (02/16/19 09:08) Comprehensive Metabolic Panel (02/16/19 09:08) Thyroid Stimulating Hormone (02/16/19 09:08) Gabapentin Capsule/Tablet (Neurontin Cap (02/16/19 21:00) Trazodone Tablet (Desyrel Tablet) (02/16/19 21:00) Patient Visit (02/16/19 ) Gait Training, Ea 15 Min (02/16/19 ) Functional Activities, Ea 15 (02/16/19 ) Acetaminophen Tablet/Caplet (Tylenol T (02/16/19 19:30) Rehab Nursing Orders: Ongoing Assess. of Cognitive Status, Ongoing Assess. of Function Status, Bladder Scan, Bladder Training, Bowel Management, Bowel Training, Disease Management & Educaiton, Fall Prevention, Fluid/Electrolyte/ Nutrition Mgmt, Medication Management & Education, Pain Management Intensity of Therapy to be met Patient to be seen: Min.3h per day/5 of 7d PT IPOC Problem List: Activity Tolerance, Functional Strength, Safety, Balance, Gait, Transfer, Bed Mobility, ROM Treatment Plan: Continue Plan of Care Bed Mobility, Concurrent Therapy, Education, Functional Activity Ashley, Functional Strength, Group Therapy, Gait, Safety, Therapeutic Exercise, Transfers Treatment Duration: March 08, 2019 Frequency: At least 5 of 7 days/Wk (IRF) Estimated Hrs Per Day: 1.5 hours per day OT IPOC Problems: Decreased Activ Tolerance, Decreased Safety Aware, Decreased UE Strength, Dependent Transfers, Impaired Bed Mobility, Impaired Cognition, Impaired Coordination, Impaired Funct Balance, Impaired I ADL's, Impaired Self- Care Skills, Restricted Funct UE ROM OT Treatment, Training and Edu: Yes OT Problems 78 year old female present to OT services secondary to frequent falls at home. pt had recently rotator cuff surgery on 01/24/19. during evaluation pt required total assist for LB dressing, total assist with UB dressing, MAX A for toileting , MIN A for sit to stands. pt presents with functional limitations affecting areas of ADLS and functional transfers with deficits in: decrease overall balance, activity tolerance/ endurance, decrease safety awareness, decrease ability to follow shoulder precautions, impaired IADLs, and decrease overall safety with functional task in sitting and standing. pt would benefit from skilled OT services to increase overall independence with ADLS and functional transfers and to address above mention deficits. Plan of Care: ADL Retraining, Caregiver Training, Concurrent Therapy, Functional Mobility, Group Exercise/Act as Ind, Orthotic Fitting/Training, UE Funct Exercise/Act Treatment Duration: March 08, 2019 Frequency: At least 5 of 7 days/Wk (IRF) Estimated Hrs Per Day: 1.[address] IPOC Speech Therapy Treatment Plan: Discontinue ST Treatment Duration: Feb 15, 2019 Frequency: 1 time per week Estimated Hrs Per Day: .25 hour per day Counselor Education Professor/Case Mgmt Counselor Education Professor/Case Managemen: Discharge Planning Dietitian/Export Coordinator Dietitian/Export Coordinator to monitor nutritional status and make changes and/or recommendations as needed and work with speech pathology on dietary upgrades as the occur. Physician IPOC Medical Issues being managed closely and that require the 24 hour availability of a physician: Overuse of medication will require close monitoring to minimize the doses and eliminate all unnecessary meds and monitor for withdrawal Medical Issues: Bowel/Bladder Function, DVT Prophylaxis, Falls Precautions, Fluid/Electrolyte/Nutrition Balance, Pain Management Brief Synthesis of Preadmission Screen, Post-Admission Evaluation, and Therapy Evaluations: PT will focus on fall prevention and increase strength for ambulation OT will focus on resumption of independent ADL's Medical Prognosis: Good Anticipated Length of Stay: 14 days PATRICE ISAAC DO Feb 16, 2019 19:29
[2019-02-16] MEDS: traZODone 50 MG (DESYREL) TAB PO SCH (19:56)
[2019-02-16] MEDS: GABAPENTIN 100 MG (NEURONTIN) CAP PO SCH (19:57)
[2019-02-17] MEDS: FERROUS SULF 325 MG (IRON) TAB PO SCH (05:39)
[2019-02-17] MEDS: LEVOTHYROXINE 25 MCG (LEVOTHROID) TAB PO SCH (05:39)
[2019-02-17] MEDS: VITAMIN D3 1,000 UNITS (CHOLECALCIFEROL) TABLET PO SCH (05:39)
[2019-02-17 05:49] VITALS: BP 115/69
--- NOTE | 2019-02-17 08:37 | PM&R Progress Note ---
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 Apparently she resides at home in [place] and her daughter is involved in her are. She sees Cardiology and Nephrology at [facility]. PLOF was independent. Currently I have restarted all meds and reviewed PMH. Patient denies pain currently and overall she just feels weak and is afraid to walk because she feels like she is falling. Barriers to return home independently will include improved ambulation and resumption of ADL independence. Subjective/Events-last exam Patient had a much better night and not as lethargic and drowsy as she was Decreased doses of gabapentin, trazodone and Xanax and it appears to be doing much better Patient appeared to be very much overmedicated Cardiology appreciated Check meds and labs Reviewed therapy notes Conferred with RN Nurse has no concerns at this current time Bowels are moving Pain is controlled Later once labs reviewed noted low platelets and elevated LFT's so will decrease the Tylenol dose significantly and hold statin Review of Systems General: Fatigue Objective Exam Vital Signs Vital Signs Date Time Temp Pulse Resp B/P (MAP) Pulse Ox O2 Delivery O2 Flow Rate FiO2 02/17/19 15:44 97.6 110 22 120/54 (76) 99 Room Air Capillary Refill : General Appearance: No Apparent Distress, WD/WN, Chronically ill HEENT: PERRL/EOMI, Normal ENT Inspection, Pharynx Normal Neck: Full Range of Motion, Normal Inspection, Non Tender, Supple Respiratory: Chest Non Tender, Lungs Clear, Normal Breath Sounds, No Accessory Muscle Use, No Respiratory Distress Cardiovascular: No Edema, No Gallop, No JVD, No Murmur, Normal Peripheral Pulses, Irregularly Irregular Gastrointestinal: Normal Bowel Sounds, No Organomegaly, No Pulsatile Mass, Non Tender, Soft Back: Normal Inspection, No CVA Tenderness, No Vertebral Tenderness Extremity: Normal Capillary Refill, Normal Inspection, Normal Range of Motion, Non Tender, No Calf Tenderness Neurologic/Psychiatric: Alert, Oriented x3, No Motor/Sensory Deficits, Normal Mood/Affect, 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 FIM Transfers Therapy Code Descriptions/Definitions Functional [place] Measure: 0=Not Assessed/NA 4=Minimal Assistance 1=Total Assistance 5=Supervision or Setup 2=Maximal Assistance 6=Modified [place] 3=Moderate Assistance 7=Complete [place] Therapy Quality Codes: 6 Independent with activity with or without an assistive device 5 Patient requires set up or clean up by helper. Patient completes activity by themselves 4 Supervision or touching assist (CGA). [place] provide cues , steadying assist 3 The helper provides less than half the effort to complete the activity 2 The helper provides more than half the effort to complete the activity 1 Dependent. The helper does all the effort to complete an activity 7 Patient refused to complete or attempt activity 9 The patient did not perform the activity before the current illness or injury 88 Not attempted due to Medical conditions or safety concerns Mental Status/Objective Comprehension: 7 Expression: 7 Social Interaction: 7 Problem Solvin Memory: 6 ADL-Treatment Feedin (Pt needed lower table so that she could use her L hand as a helper for eating. Setup needed for some items - she may need some foods cut up if they are tough. Used fork to open drink can. Able to get food to her mouth and get a drink, using R hand. Supervision) Eating (QC): 4 (supervision) Groomin (Setup, supervision for grooming at sink, seated. Some cues for attending to items in environment but it got better as she was more awake. Washed face, brushed teeth, combed hair. Cues to use L hand in lap but not to bring hand up to sink counter actively. ) Oral Hygiene (QC): 4 (supervision) Bathin (pt requried MAX VC for Left shoulder precuations. noted serveral LOB during bathing requireing therapist to correct. ) Bathing Location: L Arm, R Arm, L Upper Leg, R Upper Leg, L Lower Leg ( including foot), R Lower Leg (including foot), Chest, Abdomen, Buttocks, Perineal Area Shower/Bathe Self (QC): 4 Upper Extremity Dressin (pt education on paris technique for UE dressing secodnaryto shoulder precuations. pt required MAX A to perorm task. additional trainin gwill be needed. ) Upper Body Dressing (QC): 1 Lower Extremity Dressin (Pt. able to pull slipper socks off with effort, and with cues to not flex left shoulder. Pt. unable to don slipper socks. Pt. slightly incontinent of BM in brief. Unable to doff pants on her own. OT changed brief and pants for her.) Lower Body Dressing (QC): 3 On/Off Footwear (QC): 3 Toiletin (Help to get pants up and down but able to wipe with verbal cues for problem solving. Min assist to maintain balance while managing clothing. Used grab bar on R side of toilet. Platform walker. ) Toileting Hygiene (QC): 2 Toilet/Commode Transfer: 4 (Min to CGA assist to get on/off tall toilet, using grab bar. ) Toilet Transfer (QC): 3 Assessment/Plan Assessment and Plan Assess & Plan/Chief Complaint Assessment: Falls Debility Recent shoulder surgery left Bipolar d/o Chronic pain Neuropathy Chronic constipation CRI AF Elevated LFT's Overuse of meds now much improved Drowsiness resolved since minimizing meds Plan: IRF protocol Home meds Check labs Cardiology consultation for cardiac management while hospitalized is appreciated Hold statin Minimize Tylenol Minimize all sedating meds (1) Debility (2) Thrombocytopenia (3) Overuse of medication (4) Drowsiness (5) Atrial fibrillation (6) Anticoagulated (7) Elevated liver enzymes (8) Fall on same level (9) Falls (10) Weakness PATRICE ISAAC DO Feb 17, 2019 08:37
[2019-02-17] MEDS: FLECAINIDE 100 MG (TAMBOCOR) TAB PO SCH ×2 (09:04→20:58)
[2019-02-17] MEDS: FUROSEMIDE 20 MG (LASIX) TAB PO SCH (09:04)
[2019-02-17] MEDS: ALPRAZolam 0.5 MG (XANAX) TAB PO SCH ×2 (09:05→20:58)
[2019-02-17] MEDS: PANTOPRAZOLE 20 MG TABLET (PROTONIX) PO SCH (09:05)
[2019-02-17] MEDS: APIXABAN 2.5 MG (ELIQUIS) TABLET PO SCH ×2 (09:05→20:59)
[2019-02-17] MEDS: buPROPion SR 150 MG (WELLBUTRIN SR) TAB PO SCH ×2 (09:05→20:58)
[2019-02-17] MEDS: meTOprolol TARTRATE 25 MG (LOPRESSOR) TABLET PO SCH ×2 (09:05→20:59)
--- NOTE | 2019-02-17 12:46 | Physical Therapy Daily Note ---
PT Daily Note-Current Subjective Pt alert and agreeable to therapy. Mental Status Patient Orientation: Person, Place Transfers Therapy Code Descriptions/Definitions Functional [place] Measure: 0=Not Assessed/NA 4=Minimal Assistance 1=Total Assistance 5=Supervision or Setup 2=Maximal Assistance 6=Modified [place] 3=Moderate Assistance 7=Complete [place] Therapy Quality Codes: 6 Independent with activity with or without an assistive device 5 Patient requires set up or clean up by helper. Patient completes activity by themselves 4 Supervision or touching assist (CGA). [place] provide cues , steadying assist 3 The helper provides less than half the effort to complete the activity 2 The helper provides more than half the effort to complete the activity 1 Dependent. The helper does all the effort to complete an activity 7 Patient refused to complete or attempt activity 9 The patient did not perform the activity before the current illness or injury 88 Not attempted due to Medical conditions or safety concerns Transfers (B, C, W/C) (FIM): 4 Practiced transfers to the right and left with education on how to scoot to the chair edge and use available hand rests on the chair for assist in pushing up and controlling descent. Weight Bearing Patient has rotator cuff precautions on the left shoulder Gait Training Distance: 25 Gait Level of Assist: 4 Gait Persons Needed: 1 Ambulated using the wall railing and hand held assist 25ft x 6 trials. Pt legs were unsteady. Close CGA during standing activities. Exercises Standing: Hip Abduction, Heel/toe raises, 3 way Ex=Flex, Abd, Ext, Mini squats , Sit to Stand Standing Reps: 10 Assessment Current Status: Poor Progress Pt showed improved gait distance and stability this session. She will benefit from continued therapy to address safety and mobility impairments. PT Short Term Goals Short Term Goals Time Frame: February 22, 2019 Transfers (B,C,W/C) (FIM): 4 Gait (FIM): 1 Gait Distance Comment: 20' Gait Level of Assist: 4 Gait Assistive Device: FWW PT Negative Stripper Goals Alf Goals PT Alf Goals Time Frame: March 08, 2019 Transfers (B,C,W/C) (FIM): 4 (CGA) Sit to Lying (QC): 4 Lying-Sitting on Side/Bed(QC): 4 Sit to Stand (QC): 4 Rollin Roll Left to Right (QC): 4 Chair/Rcr-mo-Jzhiq Xfer(QC): 4 Car Transfer (QC): 4 Gait (FIM): 2 Distance: 50' Walk 10 feet (QC): 4 Walk 10ft-Uneven Surface(QC): 4 Walk 50ft with 2 Turns (QC): 4 Gait Level of Assist: 4 Gait Assistive Device: Cane Large Base Quad Stairs (FIM): 1 # of Steps: 1 1 Step (curb) (QC): 4 Stairs Level Of Assist: 4 PT Plan Treatment/Plan Treatment Plan: Continue Plan of Care Treatment Plan: Bed Mobility, Concurrent Therapy, Education, Functional Activity Ashley, Functional Strength, Group Therapy, Gait, Safety, Therapeutic Exercise, Transfers Treatment Duration: March 08, 2019 Frequency: At least 5 of 7 days/Wk (IRF) Estimated Hrs Per Day: 1.5 hours per day Patient and/or Family Agrees t: Yes Time/GCodes Time In: 857 Time Out: 925 Total Billed Treatment Time: 28 Total Billed Treatment visit, gait 15 min, exercise 13 min [facility]ADOR CHILD PT Feb 17, 2019 12:46
[2019-02-17 15:44] VITALS: BP 120/54
[2019-02-17] MEDS: POLYETHYLENE GLYCOL 17 GM (MIRALAX) PACK PO PRN (20:57)
[2019-02-17] MEDS: traZODone 50 MG (DESYREL) TAB PO SCH (20:58)
[2019-02-17] MEDS: GABAPENTIN 100 MG (NEURONTIN) CAP PO SCH (20:59)
[2019-02-18 05:34] VITALS: BP 114/74
[2019-02-18] MEDS: LEVOTHYROXINE 25 MCG (LEVOTHROID) TAB PO SCH (06:55)
[2019-02-18] MEDS: FERROUS SULF 325 MG (IRON) TAB PO SCH (06:55)
[2019-02-18] MEDS: VITAMIN D3 1,000 UNITS (CHOLECALCIFEROL) TABLET PO SCH (06:55)
--- NOTE | 2019-02-18 07:26 | PM&R Progress Note ---
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 Apparently she resides at home in [place] and her daughter is involved in her are. She sees Cardiology and Nephrology at [facility]. PLOF was independent. Currently I have restarted all meds and reviewed PMH. Patient denies pain currently and overall she just feels weak and is afraid to walk because she feels like she is falling. Barriers to return home independently will include improved ambulation and resumption of ADL independence. Subjective/Events-last exam Patient had a much better night and slept really well Decreased doses of gabapentin, trazodone and Xanax and it appears to be doing much better and that must have been a factor in her falls at home I suspect Patient appeared to be very much overmedicated when she arrived at IRF Cardiology appreciated and she usually sees [facility] on a regular basis Check meds and labs Reviewed therapy notes Conferred with RN and nurse has no concerns at this current time Bowels are moving but wants some Miralax to be sure they are moving better Pain is controlled Later once labs reviewed noted low platelets and elevated LFT's so will decrease the Tylenol dose significantly and hold statin Review of Systems General: Fatigue Neurological: Weakness, Incoordination Objective Exam Vital Signs Vital Signs Date Time Temp Pulse Resp B/P (MAP) Pulse Ox O2 Delivery O2 Flow Rate FiO2 02/18/19 15:20 97.2 81 20 132/91 (105) 98 Room Air Capillary Refill : General Appearance: No Apparent Distress, WD/WN, Chronically ill HEENT: PERRL/EOMI, Normal ENT Inspection, Pharynx Normal Neck: Full Range of Motion, Normal Inspection, Non Tender, Supple Respiratory: Chest Non Tender, Lungs Clear, Normal Breath Sounds, No Accessory Muscle Use, No Respiratory Distress Cardiovascular: No Edema, No Gallop, No JVD, No Murmur, Normal Peripheral Pulses, Irregularly Irregular Gastrointestinal: Normal Bowel Sounds, No Organomegaly, No Pulsatile Mass, Non Tender, Soft Back: Normal Inspection, No CVA Tenderness, No Vertebral Tenderness Extremity: Normal Capillary Refill, Normal Inspection, Normal Range of Motion, Non Tender, No Calf Tenderness Neurologic/Psychiatric: Alert, Oriented x3, No Motor/Sensory Deficits, Normal Mood/Affect, 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 FIM Transfers Therapy Code Descriptions/Definitions Functional [place] Measure: 0=Not Assessed/NA 4=Minimal Assistance 1=Total Assistance 5=Supervision or Setup 2=Maximal Assistance 6=Modified [place] 3=Moderate Assistance 7=Complete [place] Therapy Quality Codes: 6 Independent with activity with or without an assistive device 5 Patient requires set up or clean up by helper. Patient completes activity by themselves 4 Supervision or touching assist (CGA). [place] provide cues , steadying assist 3 The helper provides less than half the effort to complete the activity 2 The helper provides more than half the effort to complete the activity 1 Dependent. The helper does all the effort to complete an activity 7 Patient refused to complete or attempt activity 9 The patient did not perform the activity before the current illness or injury 88 Not attempted due to Medical conditions or safety concerns Mental Status/Objective Comprehension: 7 Expression: 7 Social Interaction: 7 Problem Solvin Memory: 6 ADL-Treatment Feedin (Pt needed lower table so that she could use her L hand as a helper for eating. Setup needed for some items - she may need some foods cut up if they are tough. Used fork to open drink can. Able to get food to her mouth and get a drink, using R hand. Supervision) Eating (QC): 4 (supervision) Groomin (Setup, supervision for grooming at sink, seated. Some cues for attending to items in environment but it got better as she was more awake. Washed face, brushed teeth, combed hair. Cues to use L hand in lap but not to bring hand up to sink counter actively. ) Oral Hygiene (QC): 4 (supervision) Bathin (pt requried MAX VC for Left shoulder precuations. noted serveral LOB during bathing requireing therapist to correct. ) Bathing Location: L Arm, R Arm, L Upper Leg, R Upper Leg, L Lower Leg ( including foot), R Lower Leg (including foot), Chest, Abdomen, Buttocks, Perineal Area Shower/Bathe Self (QC): 4 Upper Extremity Dressin (pt education on paris technique for UE dressing secodnaryto shoulder precuations. pt required MAX A to perorm task. additional trainin gwill be needed. ) Upper Body Dressing (QC): 1 Lower Extremity Dressin (Pt. able to pull slipper socks off with effort, and with cues to not flex left shoulder. Pt. unable to don slipper socks. Pt. slightly incontinent of BM in brief. Unable to doff pants on her own. OT changed brief and pants for her.) Lower Body Dressing (QC): 3 On/Off Footwear (QC): 3 Toiletin (Help to get pants up and down but able to wipe with verbal cues for problem solving. Min assist to maintain balance while managing clothing. Used grab bar on R side of toilet. Platform walker. ) Toileting Hygiene (QC): 2 Toilet/Commode Transfer: 4 (Min to CGA assist to get on/off tall toilet, using grab bar. ) Toilet Transfer (QC): 3 Assessment/Plan Assessment and Plan Assess & Plan/Chief Complaint Assessment: Falls Debility Recent shoulder surgery left Bipolar d/o Chronic pain Neuropathy Chronic constipation CRI AF Elevated LFT's Overuse of meds now much improved Drowsiness resolved since minimizing meds Plan: IRF protocol Home meds Check labs Cardiology consultation for cardiac management while hospitalized is appreciated Hold statin Minimize Tylenol Minimize all sedating meds (1) Debility (2) Thrombocytopenia (3) Overuse of medication (4) Drowsiness (5) Atrial fibrillation (6) Anticoagulated (7) Elevated liver enzymes (8) Fall on same level (9) Falls (10) Weakness (11) Bipolar 1 disorder PATRICE ISAAC DO Feb 18, 2019 07:26
[2019-02-18] MEDS: ALPRAZolam 0.5 MG (XANAX) TAB PO SCH ×2 (09:58→20:06)
[2019-02-18] MEDS: PANTOPRAZOLE 20 MG TABLET (PROTONIX) PO SCH (09:58)
[2019-02-18] MEDS: meTOprolol TARTRATE 25 MG (LOPRESSOR) TABLET PO SCH ×2 (09:58→20:06)
[2019-02-18] MEDS: buPROPion SR 150 MG (WELLBUTRIN SR) TAB PO SCH ×2 (09:58→20:06)
[2019-02-18] MEDS: APIXABAN 2.5 MG (ELIQUIS) TABLET PO SCH ×2 (09:58→20:05)
[2019-02-18] MEDS: FLECAINIDE 100 MG (TAMBOCOR) TAB PO SCH ×2 (09:58→20:06)
[2019-02-18 15:20] VITALS: BP 132/91
[2019-02-18] MEDS: traZODone 50 MG (DESYREL) TAB PO SCH (20:05)
[2019-02-18] MEDS: GABAPENTIN 100 MG (NEURONTIN) CAP PO SCH (20:05)
[2019-02-19] MEDS: ACETAMINOPHEN 325 MG TABLET PO PRN (01:58)
[2019-02-19 05:00] LABS: BASOPHILS % (AUTO) 1 % (0-10); EOSINOPHILS # (AUTO) 0.1 10^3/uL (0.0-0.3); EOSINOPHILS % (AUTO) 2 % (0-10); HEMATOCRIT 40 % (35-52); LYMPHOCYTES # (AUTO) 1.8 X 10^3 (1.0-4.0); LYMPHOCYTES % (AUTO) 28 % (12-44); MEAN CORPUSCULAR HEMOGLOBIN 32 PG (25-34); MEAN CORPUSCULAR HGB CONC 32 G/DL (32-36); MEAN CORPUSCULAR VOLUME 100 FL (80-99); MEAN PLATELET VOLUME 9.8 FL (7.4-10.4); MONOCYTES # (AUTO) 0.6 X 10^3 (0.0-1.0); MONOCYTES % (AUTO) 9 % (0-12); NEUTROPHILS # (AUTO) 3.9 X 10^3 (1.8-7.8); NEUTROPHILS % (AUTO) 61 % (42-75); PLATELET COUNT 106 10^3/uL (130-400); RED CELL DISTRIBUTION WIDTH 15.1 % (10.0-14.5); WHITE BLOOD COUNT 6.4 10^3/uL (4.3-11.0)
[2019-02-19 05:21] VITALS: BP 111/59
[2019-02-19 05:25] LABS: ALANINE AMINOTRANSFERASE 109 U/L (0-55); ALBUMIN 3.5 GM/DL (3.2-4.5); ALKALINE PHOSPHATASE 132 U/L (40-136); BILIRUBIN,TOTAL 0.9 MG/DL (0.1-1.0); BUN/CREATININE RATIO 13; CALCIUM 8.9 MG/DL (8.5-10.1); CARBON DIOXIDE 20 MMOL/L (21-32); CHLORIDE 101 MMOL/L (98-107); CREATININE SERUM 0.86 MG/DL (0.60-1.30); GFR ESTIMATED > 60; GLUCOSE 97 MG/DL (70-105); POTASSIUM 4.2 MMOL/L (3.6-5.0); SODIUM 133 MMOL/L (135-145); TOTAL PROTEIN 5.8 GM/DL (6.4-8.2)
[2019-02-19] MEDS: LEVOTHYROXINE 25 MCG (LEVOTHROID) TAB PO SCH (06:26)
[2019-02-19] MEDS: FERROUS SULF 325 MG (IRON) TAB PO SCH (06:26)
[2019-02-19] MEDS: VITAMIN D3 1,000 UNITS (CHOLECALCIFEROL) TABLET PO SCH (06:26)
--- NOTE | 2019-02-19 08:12 | PM&R Progress Note ---
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 who presents to the IRF due to multiple falls and recent left shoulder surgery. Apparently she resides at home in [place] and her daughter is involved in her are. She sees Cardiology and Nephrology at [facility]. PLOF was independent. Currently I have restarted all meds and reviewed PMH. Patient denies pain currently and overall she just feels weak and is afraid to walk because she feels like she is falling. Barriers to return home independently will include improved ambulation and resumption of ADL independence. Subjective/Events-last exam Will order a behavioral health consult since she does see a therapist and was recently established with one due to her bipolar disorder. Was completely overmedicated prior to admission which put her at risk for falls. Today she appears to be brighter and more focused and less drowsy and lethargic. Pt is participating in all therapies now. Having difficulty sleeping so will entertain increasing the Trazodone to 100mg daily. If she can't overcome the obstacles of overmedicating she will need a long term placement. Exhibiting some odd conversations with the daughter over the phone when she was doing well and when she was talking with her daughter it seemed as if she was presenting a different clinical picture so will monitor that closely and will update the daughter with how she is doing since we have minimized medication. 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 LFTs are much improved since minimizing Tylenol and holding statin therapy Conferred with RN Reviewed therapy notes Later once labs reviewed noted low platelets and elevated LFT's so will decrease the Tylenol dose significantly and hold statin Review of Systems General: Fatigue Musculoskeletal: arm pain Objective Exam Vital Signs Vital Signs Date Time Temp Pulse Resp B/P (MAP) Pulse Ox O2 Delivery O2 Flow Rate FiO2 02/19/19 18:46 97.6 94 16 109/70 (83) 98 Room Air Capillary Refill : General Appearance: No Apparent Distress, WD/WN, Chronically ill HEENT: PERRL/EOMI, Normal ENT Inspection, Pharynx Normal Neck: Full Range of Motion, Normal Inspection, Non Tender, Supple Respiratory: Chest Non Tender, Lungs Clear, Normal Breath Sounds, No Accessory Muscle Use, No Respiratory Distress Cardiovascular: No Edema, No Gallop, No JVD, No Murmur, Normal Peripheral Pulses, Irregularly Irregular Gastrointestinal: Normal Bowel Sounds, No Organomegaly, No Pulsatile Mass, Non Tender, Soft Back: Normal Inspection, No CVA Tenderness, No Vertebral Tenderness Extremity: Normal Capillary Refill, Normal Inspection, Normal Range of Motion, Non Tender, No Calf Tenderness Neurologic/Psychiatric: Alert, Oriented x3, No Motor/Sensory Deficits, Normal Mood/Affect, foot cutter II-XII Norm as Tested, Motor Weakness (generalized weakness 4/ 5 all extremities) Skin: Normal Color, Warm/Dry Lymphatic: No Adenopathy Results/Procedures Lab Laboratory Tests 02/19/19 04:25 Patient resulted labs reviewed. FIM Transfers Therapy Code Descriptions/Definitions Functional [place] Measure: 0=Not Assessed/NA 4=Minimal Assistance 1=Total Assistance 5=Supervision or Setup 2=Maximal Assistance 6=Modified [place] 3=Moderate Assistance 7=Complete [place] Therapy Quality Codes: 6 Independent with activity with or without an assistive device 5 Patient requires set up or clean up by helper. Patient completes activity by themselves 4 Supervision or touching assist (CGA). [place] provide cues , steadying assist 3 The helper provides less than half the effort to complete the activity 2 The helper provides more than half the effort to complete the activity 1 Dependent. The helper does all the effort to complete an activity 7 Patient refused to complete or attempt activity 9 The patient did not perform the activity before the current illness or injury 88 Not attempted due to Medical conditions or safety concerns Mental Status/Objective Comprehension: 7 Expression: 7 Social Interaction: 7 Problem Solvin Memory: 6 ADL-Treatment Feedin (Pt needed lower table so that she could use her L hand as a helper for eating. Setup needed for some items - she may need some foods cut up if they are tough. Used fork to open drink can. Able to get food to her mouth and get a drink, using R hand. Supervision) Eating (QC): 4 (supervision) Groomin (Setup, supervision for grooming at sink, seated. Some cues for attending to items in environment but it got better as she was more awake. Washed face, brushed teeth, combed hair. Cues to use L hand in lap but not to bring hand up to sink counter actively. ) Oral Hygiene (QC): 4 (supervision) Bathin (pt requried MAX VC for Left shoulder precuations. noted serveral LOB during bathing requireing therapist to correct. ) Bathing Location: L Arm, R Arm, L Upper Leg, R Upper Leg, L Lower Leg ( including foot), R Lower Leg (including foot), Chest, Abdomen, Buttocks, Perineal Area Shower/Bathe Self (QC): 4 Upper Extremity Dressin (pt education on paris technique for UE dressing secodnaryto shoulder precuations. pt required MAX A to perorm task. additional trainin gwill be needed. ) Upper Body Dressing (QC): 1 Lower Extremity Dressin (Pt. able to pull slipper socks off with effort, and with cues to not flex left shoulder. Pt. unable to don slipper socks. Pt. slightly incontinent of BM in brief. Unable to doff pants on her own. OT changed brief and pants for her.) Lower Body Dressing (QC): 3 On/Off Footwear (QC): 3 Toiletin (Help to get pants up and down but able to wipe with verbal cues for problem solving. Min assist to maintain balance while managing clothing. Used grab bar on R side of toilet. Platform walker. ) Toileting Hygiene (QC): 2 Toilet/Commode Transfer: 4 (Min to CGA assist to get on/off tall toilet, using grab bar. ) Toilet Transfer (QC): 3 Assessment/Plan Assessment and Plan Assess & Plan/Chief Complaint Assessment: Falls Debility Recent shoulder surgery left Bipolar d/o Chronic pain Neuropathy Chronic constipation CRI AF Elevated LFT's improved with decreased Tylenol dosing and holding statin and other meds Overuse of meds now much improved Drowsiness resolved since minimizing meds Hyponatremia Plan: IRF protocol Home meds Check labs Cardiology consultation for cardiac management while hospitalized is appreciated Hold statin Minimize Tylenol Minimize all sedating meds Minimize water intake due to mild hyponatremia and patient appears to be high risk for psychogenic polydipsia (1) Debility (2) Thrombocytopenia (3) Overuse of medication (4) Drowsiness (5) Atrial fibrillation (6) Anticoagulated (7) Elevated liver enzymes (8) Fall on same level (9) Falls (10) Weakness (11) Bipolar 1 disorder (12) Hyponatremia (13) Insomnia (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
--- NOTE | 2019-02-19 08:25 | Occupational Ther Daily Note ---
OT Current Status-Daily Note Subjective Pt alert, lying in bed. Pt agrees to therapy. No c/o pain. Mental Status/Objective Patient Orientation: Person, Place, Time, Situation Therapy Code Descriptions/Definitions Functional [place] Measure: 0=Not Assessed/NA 4=Minimal Assistance 1=Total Assistance 5=Supervision or Setup 2=Maximal Assistance 6=Modified [place] 3=Moderate Assistance 7=Complete [place] Attachments: IV ADL-Treatment Pt agrees to shower. Needs reminders to adhere to L shldr precautions (rotator cuff repair), pt 3 1/2 weeks out. After therapy, pt sitting in recliner with call light/phone. All needs met. Therapy Code Descriptions/Definitions Functional [place] Measure: 0=Not Assessed/NA 4=Minimal Assistance 1=Total Assistance 5=Supervision or Setup 2=Maximal Assistance 6=Modified [place] 3=Moderate Assistance 7=Complete [place] Therapy Quality Codes: 6 Independent with activity with or without an assistive device 5 Patient requires set up or clean up by helper. Patient completes activity by themselves 4 Supervision or touching assist (CGA). [place] provide cues , steadying assist 3 The helper provides less than half the effort to complete the activity 2 The helper provides more than half the effort to complete the activity 1 Dependent. The helper does all the effort to complete an activity 7 Patient refused to complete or attempt activity 9 The patient did not perform the activity before the current illness or injury 88 Not attempted due to Medical conditions or safety concerns Bathing (FIM): 5 (Supervision and reminders for shldr precautions. Pt able to complete bathing using shower bench, hand held shower and grabbars.) Bathing Location: L Arm, R Arm, L Upper Leg, R Upper Leg, L Lower Leg ( including foot), R Lower Leg (including foot), Chest, Abdomen, Buttocks, Perineal Area Shower/Bathe Self (QC): 4 Upper Body (FIM): 5 (Reminders for shldr precautions. Pt able to complete by self after set up.) Upper Body Dressing (QC): 4 Lower Body Dressing (FIM): 4 (Assist donning socks. Pt able to complete doffing clothing with SBA for safety. Dons pants over feet and up LE's. Pt able to hike underwear over hips with R UE. Assist with jeans to hike over hips.) Lower Body Dressing (QC): 3 On/Off Footwear (QC): 3 Transfers (B, C, W/C) (FIM): 5 (SBA using FWW with platform.) Shower Transfer(FIM): 4 (CGA due to 1 LOB. Using grabbars, FWW and shower bench.) OT Short Term Goals Short Term Goals Eating(FIM): 6 Grooming(FIM): 5 Bathing(FIM): 5 Bathing Location: L Arm, R Arm, L Upper Leg, R Upper Leg, L Lower Leg ( including foot), R Lower Leg (including foot), Chest, Abdomen, Buttocks, Perineal Area Upper Body Dressing(FIM): 5 Lower Body Dressing(FIM): 5 Toileting(FIM): 5 Transfers (B,C,W/C) (FIM): 4 Toilet/Commode Transfer(FIM): 5 Tub Transfer(FIM): 5 Shower Transfer(FIM): 5 1=Demonstrate adherence to instructed precautions during ADL tasks. 2=Patient will verbalize/demonstrate understanding of assistive devices/ modifications for ADL. 3=Patient will improve strength/tolerance for activity to enable patient to perform ADL's. OT Cookie Mixer Helper Goals Detention Goals Eating (FIM): 6 Eating (QC): 6 Groomin Oral Hygiene (QC): 6 Bathing(FIM): 6 Bathing Location: L Arm, R Arm, L Upper Leg, R Upper Leg, L Lower Leg ( including foot), R Lower Leg (including foot), Chest, Abdomen, Buttocks, Perineal Area Shower/Bathe Self (QC): 6 Upper Body Dressing(FIM): 6 Upper Body Dressing (QC): 6 Lower Body Dressing(FIM): 6 Lower Body Dressing (QC): 6 On/Off Footwear (QC): 6 Toileting(FIM): 6 Toileting Hygiene (QC): 6 Transfers (B,C,W/C) (FIM): 6 Toilet/Commode Transfer(FIM): 6 Toilet/Commode Transfer (QC): 6 Tub Transfer(FIM): 6 Shower Transfer(FIM): 6 Additional Goals: 1-Demonstrate ADL Tasks, 2-Verbalize Understanding, 3- ImproveStrength/Ashley 1=Demonstrate adherence to instructed precautions during ADL tasks. 2=Patient will verbalize/demonstrate understanding of assistive devices/ modifications for ADL. 3=Patient will improve strength/tolerance for activity to enable patient to perform ADL's. OT Education/Plan Problem List/Assessment 78 year old female present to OT services secondary to frequent falls at home. pt had recently rotator cuff surgery on 01/24/19. during evaluation pt required total assist for LB dressing, total assist with UB dressing, MAX A for toileting , MIN A for sit to stands. pt presents with functional limitations affecting areas of ADLS and functional transfers with deficits in: decrease overall balance, activity tolerance/ endurance, decrease safety awareness, decrease ability to follow shoulder precautions, impaired IADLs, and decrease overall safety with functional task in sitting and standing. pt would benefit from skilled OT services to increase overall independence with ADLS and functional transfers and to address above mention deficits. Discharge Recommendations Plan/Recommendations: Continue POC Treatment Plan/Plan of Care Patient would benefit from OT for education, treatment and training to promote independence in ADL's, mobility, safety and/or upper extremity function for ADL' s. Plan of Care: ADL Retraining, Caregiver Training, Concurrent Therapy, Functional Mobility, Group Exercise/Act as Ind, Orthotic Fitting/Training, UE Funct Exercise/Act Treatment Duration: March 08, 2019 Frequency: At least 5 of 7 days/Wk (IRF) Estimated Hrs Per Day: 1.5 hours per day Agreement: Yes Rehab Potential: Guarded Time/GCodes Start Time: 08:00 Stop Time: 09:00 Total Time Billed (hr/min): 60 Billed Treatment Time 1 visit-ADL 4 (60 min) OMID WALSH Feb 19, 2019 08:25
[2019-02-19] MEDS: PANTOPRAZOLE 20 MG TABLET (PROTONIX) PO SCH (09:26)
[2019-02-19] MEDS: FUROSEMIDE 20 MG (LASIX) TAB PO SCH (09:26)
[2019-02-19] MEDS: meTOprolol TARTRATE 25 MG (LOPRESSOR) TABLET PO SCH ×2 (09:26→20:42)
[2019-02-19] MEDS: buPROPion SR 150 MG (WELLBUTRIN SR) TAB PO SCH ×2 (09:27→20:42)
[2019-02-19] MEDS: APIXABAN 2.5 MG (ELIQUIS) TABLET PO SCH ×2 (09:27→20:42)
[2019-02-19] MEDS: FLECAINIDE 100 MG (TAMBOCOR) TAB PO SCH ×2 (09:27→20:42)
[2019-02-19] MEDS: ALPRAZolam 0.5 MG (XANAX) TAB PO SCH ×2 (09:27→20:42)
[2019-02-19] MEDS: ASPIRIN 81 MG CHEW (CHILDREN'S ASA) PO SCH (09:27)
--- NOTE | 2019-02-19 10:02 | Progress Note-Cardiology ---
Cardiology SOAP Progress Note Subjective: Sitting up in a chair in recliner. State she feels well. Has chronic mild dizziness which has been present for months and is unchanged. No c/o CP, palpitations, syncope or near syncope. Objective: I&O/Vital Signs 02/19/19 02/19/19 05:21 09:00 Temp 97.2 Pulse 87 Resp 20 B/P (MAP) 111/59 (76) Pulse Ox 97 O2 Delivery Room Air Room Air 02/19/19 00:00 Intake Total 750 ml Balance 750 ml Weight (Pounds): 148 Weight (Ounces): 0.0 Weight (Calculated Kilograms): [id number] Constitutional: AAO x 3, well-developed, well-nourished Respiratory: No accessory muscle use; lungs clear to percussion, lungs clear to auscultation Cardiovascular: irregularly irregular, S1 and S2, systolic murmur (faint DONG at card base) Gastrointestional: soft; No guarding, No rebound, No tenderness; audible bowel sounds Extremities: No clubbing, No cyanosis, No significant edema Neurologic/Psychiatric: oriented x 3, other (4/5 power bilat), grossly intact Skin: No rash on exposed areas, No ulcerations on exposed areas Results/Procedures: Labs Laboratory Tests 02/19/19 04:25: White Blood Count 6.4, Red Blood Count 4.02L, Hemoglobin 13.0, Hematocrit 40, Mean Corpuscular Volume 100H, Mean Corpuscular Hemoglobin 32, Mean Corpuscular Hemoglobin Concent 32, Red Cell Distribution Width 15.1H, Platelet Count 106L, Mean Platelet Volume 9.8, Neutrophils (%) (Auto) 61, Lymphocytes (%) (Auto) 28, Monocytes (%) (Auto) 9, Eosinophils (%) (Auto) 2, Basophils (%) (Auto) 1, Neutrophils # (Auto) 3.9, Lymphocytes # (Auto) 1.8, Monocytes # (Auto) 0.6, Eosinophils # (Auto) 0.1, Basophils # (Auto) 0.0, Sodium Level 133L, Potassium Level 4.2, Chloride Level 101, Carbon Dioxide Level 20L, Anion Gap 12, Blood Urea Nitrogen 11, Creatinine 0.86, Estimat Glomerular Filtration Rate > 60, BUN/ Creatinine Ratio 13, Glucose Level 97, Calcium Level 8.9, Corrected Calcium 9.3 , Total Bilirubin 0.9, Aspartate Amino Transf (AST/SGOT) 39H, Alanine Aminotransferase (ALT/SGPT) 109H, Alkaline Phosphatase 132, Total Protein 5.8L, Albumin 3.5 Laboratory Tests 02/19/19 04:25 A/P: Assessment: Chronic persistent A Fib Mild CAD on card cath of 2016, according to the patient H/o hyperlipidemia Gen weakness, being evaluated and treated by Dr Quintanilla Plan: * Continue apixaban and statin * Echo pending * Try to obtain previous card records * Monitor labs from time to time EMMA BARRERA Feb 19, 2019 10:02
--- NOTE | 2019-02-19 11:00 | Physical Therapy Daily Note ---
PT Daily Note-Current Subjective Pt. agrees to rx. More alert than last seen by this OPERATIONS LABEL CLERK. pt. states she feels she has accomplished alot today after walking with giles walker Pain Location: No Pain Reported Transfers Therapy Code Descriptions/Definitions Functional [place] Measure: 0=Not Assessed/NA 4=Minimal Assistance 1=Total Assistance 5=Supervision or Setup 2=Maximal Assistance 6=Modified [place] 3=Moderate Assistance 7=Complete [place] Therapy Quality Codes: 6 Independent with activity with or without an assistive device 5 Patient requires set up or clean up by helper. Patient completes activity by themselves 4 Supervision or touching assist (CGA). [place] provide cues , steadying assist 3 The helper provides less than half the effort to complete the activity 2 The helper provides more than half the effort to complete the activity 1 Dependent. The helper does all the effort to complete an activity 7 Patient refused to complete or attempt activity 9 The patient did not perform the activity before the current illness or injury 88 Not attempted due to Medical conditions or safety concerns Transfers (B, C, W/C) (FIM): 5 Scootin Rollin Supine to/from Sit: 5 Sit to/from Stand: 5 Weight Bearing Patient has rotator cuff precautions on the left shoulder Gait Training Does the Patient Walk?: Yes Gait (FIM): 1 Distance (FIM): 1=up to 49 ft Gait Assistive Device: Walker Giles gait at rail in hallway CGA 15ft, gait in orozco with giles walker 15 ft x2. pt. c/ o much fatigue with gait and asks for break Wheelchair Training Does the Pt Use a Wheelchair?: Yes Wheelchair (FIM): 4 Wheelchair Distance: 3=150 ft Wheelchair Level of Assist: 4 Type of Wheelchair: Manual needs much instruction for safe turns and maneuvering Exercises Seated Therapy Exercises: Ankle pumps, Sit to stand, Long arc quads, Hip flexion, Hip abd/add Seated Reps: 15 NuStep Minutes: 11 NuStep Workload: 2 Assessment Current Status: Good Progress fatigues easily with gait , needs breaks but improved with balance PT Short Term Goals Short Term Goals Time Frame: February 22, 2019 Transfers (B,C,W/C) (FIM): 4 Gait (FIM): 1 Gait Distance Comment: 20' Gait Level of Assist: 4 Gait Assistive Device: FWW PT Long-Term Goals Enterprise Applications Manager Goals PT Long-Term Goals Time Frame: March 08, 2019 Transfers (B,C,W/C) (FIM): 4 (CGA) Sit to Lying (QC): 4 Lying-Sitting on Side/Bed(QC): 4 Sit to Stand (QC): 4 Rollin Roll Left to Right (QC): 4 Chair/Vvl-rv-Lfvih Xfer(QC): 4 Car Transfer (QC): 4 Gait (FIM): 2 Distance: 50' Walk 10 feet (QC): 4 Walk 10ft-Uneven Surface(QC): 4 Walk 50ft with 2 Turns (QC): 4 Gait Level of Assist: 4 Gait Assistive Device: Cane Large Base Quad Stairs (FIM): 1 # of Steps: 1 1 Step (curb) (QC): 4 Stairs Level Of Assist: 4 PT Plan Treatment/Plan Treatment Plan: Continue Plan of Care Treatment Plan: Bed Mobility, Concurrent Therapy, Education, Functional Activity Ashley, Functional Strength, Group Therapy, Gait, Safety, Therapeutic Exercise, Transfers Treatment Duration: March 08, 2019 Frequency: At least 5 of 7 days/Wk (IRF) Estimated Hrs Per Day: 1.5 hours per day Patient and/or Family Agrees t: Yes Safety Risks/Education Patient Education: Gait Training, Transfer Techniques, Correct Positioning, W/ C Management, Disease Process, Safety Issues Teaching Recipient: Patient Teaching Methods: Demonstration, Discussion Response to Teaching: Verbalize Understanding, Return Demonstration, Reinforcement Needed Time/GCodes Time In: 1000 Time Out: 1100 Total Billed Treatment Time: 60 Total Billed Treatment 1,GT25m,EX35m G Codes Necessary: DEVIN Isaac OPERATIONS LABEL CLERK Feb 19, 2019 11:00
--- NOTE | 2019-02-19 11:06 | NUR ---
Pt is Hinduism. Mcat Instructor provided prayer and Communion.
--- NOTE | 2019-02-19 13:20 | Occupational Ther Daily Note ---
OT Current Status-Daily Note Subjective Pt alert, lying in bed. Pt agrees to therapy. No c/o pain at this time. Mental Status/Objective Patient Orientation: Person, Place, Time, Situation Therapy Code Descriptions/Definitions Functional [place] Measure: 0=Not Assessed/NA 4=Minimal Assistance 1=Total Assistance 5=Supervision or Setup 2=Maximal Assistance 6=Modified [place] 3=Moderate Assistance 7=Complete [place] ADL-Treatment Therapy Code Descriptions/Definitions Functional [place] Measure: 0=Not Assessed/NA 4=Minimal Assistance 1=Total Assistance 5=Supervision or Setup 2=Maximal Assistance 6=Modified [place] 3=Moderate Assistance 7=Complete [place] Therapy Quality Codes: 6 Independent with activity with or without an assistive device 5 Patient requires set up or clean up by helper. Patient completes activity by themselves 4 Supervision or touching assist (CGA). [place] provide cues , steadying assist 3 The helper provides less than half the effort to complete the activity 2 The helper provides more than half the effort to complete the activity 1 Dependent. The helper does all the effort to complete an activity 7 Patient refused to complete or attempt activity 9 The patient did not perform the activity before the current illness or injury 88 Not attempted due to Medical conditions or safety concerns Other Treatment Pt able to go from supine to sitting EOB independently. Pt did state she was dizzy and took small amount of time to recover. Pt transferred with SBA from bed to w/c then w/c to recliner. Transported via w/c to therapy gym. Pt completed resistive fine motor tasks to increase pinch and asphalt roller person (R hand only) for daily functional tasks. Therapy sponge given for pt to strengthen L pinch and asphalt roller person. Left sponge in pt's room for use throughout the day. After therapy, pt sitting in recliner with call light/phone in reach. All needs met in room. Education OT Patient Education: Exercise program Teaching Recipient: Patient Teaching Methods: Demonstration Response to Teaching: Verbalize Understanding, Return Demonstration OT Short Term Goals Short Term Goals Eating(FIM): 6 Grooming(FIM): 5 Bathing(FIM): 5 Bathing Location: L Arm, R Arm, L Upper Leg, R Upper Leg, L Lower Leg ( including foot), R Lower Leg (including foot), Chest, Abdomen, Buttocks, Perineal Area Upper Body Dressing(FIM): 5 Lower Body Dressing(FIM): 5 Toileting(FIM): 5 Transfers (B,C,W/C) (FIM): 4 Toilet/Commode Transfer(FIM): 5 Tub Transfer(FIM): 5 Shower Transfer(FIM): 5 1=Demonstrate adherence to instructed precautions during ADL tasks. 2=Patient will verbalize/demonstrate understanding of assistive devices/ modifications for ADL. 3=Patient will improve strength/tolerance for activity to enable patient to perform ADL's. OT Fdc Goals Fdc Goals Eating (FIM): 6 Eating (QC): 6 Groomin Oral Hygiene (QC): 6 Bathing(FIM): 6 Bathing Location: L Arm, R Arm, L Upper Leg, R Upper Leg, L Lower Leg ( including foot), R Lower Leg (including foot), Chest, Abdomen, Buttocks, Perineal Area Shower/Bathe Self (QC): 6 Upper Body Dressing(FIM): 6 Upper Body Dressing (QC): 6 Lower Body Dressing(FIM): 6 Lower Body Dressing (QC): 6 On/Off Footwear (QC): 6 Toileting(FIM): 6 Toileting Hygiene (QC): 6 Transfers (B,C,W/C) (FIM): 6 Toilet/Commode Transfer(FIM): 6 Toilet/Commode Transfer (QC): 6 Tub Transfer(FIM): 6 Shower Transfer(FIM): 6 Additional Goals: 1-Demonstrate ADL Tasks, 2-Verbalize Understanding, 3- ImproveStrength/Ashley 1=Demonstrate adherence to instructed precautions during ADL tasks. 2=Patient will verbalize/demonstrate understanding of assistive devices/ modifications for ADL. 3=Patient will improve strength/tolerance for activity to enable patient to perform ADL's. OT Education/Plan Problem List/Assessment 78 year old female present to OT services secondary to frequent falls at home. pt had recently rotator cuff surgery on 01/24/19. during evaluation pt required total assist for LB dressing, total assist with UB dressing, MAX A for toileting , MIN A for sit to stands. pt presents with functional limitations affecting areas of ADLS and functional transfers with deficits in: decrease overall balance, activity tolerance/ endurance, decrease safety awareness, decrease ability to follow shoulder precautions, impaired IADLs, and decrease overall safety with functional task in sitting and standing. pt would benefit from skilled OT services to increase overall independence with ADLS and functional transfers and to address above mention deficits. Discharge Recommendations Plan/Recommendations: Continue POC Treatment Plan/Plan of Care Patient would benefit from OT for education, treatment and training to promote independence in ADL's, mobility, safety and/or upper extremity function for ADL' s. Plan of Care: ADL Retraining, Caregiver Training, Concurrent Therapy, Functional Mobility, Group Exercise/Act as Ind, Orthotic Fitting/Training, UE Funct Exercise/Act Treatment Duration: March 08, 2019 Frequency: At least 5 of 7 days/Wk (IRF) Estimated Hrs Per Day: 1.5 hours per day Agreement: Yes Rehab Potential: Guarded Time/GCodes Start Time: 12:45 Stop Time: 13:15 Total Time Billed (hr/min): 30 Billed Treatment Time 1 visit-EX 2 (30 min) OMID WALSH Feb 19, 2019 13:20
--- NOTE | 2019-02-19 14:50 | Physical Therapy Daily Note ---
PT Daily Note-Current Subjective Pt. in recliner, needs to toilet and wants to walk Pain Location: No Pain Reported Mental Status Patient Orientation: Normal For Age Attachments: Other-See Comments (sling left arm) Transfers Therapy Code Descriptions/Definitions Functional [place] Measure: 0=Not Assessed/NA 4=Minimal Assistance 1=Total Assistance 5=Supervision or Setup 2=Maximal Assistance 6=Modified [place] 3=Moderate Assistance 7=Complete [place] Therapy Quality Codes: 6 Independent with activity with or without an assistive device 5 Patient requires set up or clean up by helper. Patient completes activity by themselves 4 Supervision or touching assist (CGA). [place] provide cues , steadying assist 3 The helper provides less than half the effort to complete the activity 2 The helper provides more than half the effort to complete the activity 1 Dependent. The helper does all the effort to complete an activity 7 Patient refused to complete or attempt activity 9 The patient did not perform the activity before the current illness or injury 88 Not attempted due to Medical conditions or safety concerns sit to stand x 5 from recliner and toilet all CGA Weight Bearing Patient has rotator cuff precautions on the left shoulder Gait Training Gait Assistive Device: Walker Giles 20 ft x 3 CGA slow with some instruction needed for sequence and step length Exercises Seated Therapy Exercises: Ankle pumps, Sit to stand, Long arc quads, Hip flexion Seated Reps: 10 Treatments needed mod assist to manage pants up and down Assessment Current Status: Good Progress continues improved TRFs and gait skills PT Short Term Goals Short Term Goals Time Frame: February 22, 2019 Transfers (B,C,W/C) (FIM): 4 Gait (FIM): 1 Gait Distance Comment: 20' Gait Level of Assist: 4 Gait Assistive Device: FWW PT Oracle Drm Consultant Goals Snf Goals PT Oracle Drm Consultant Goals Time Frame: March 08, 2019 Transfers (B,C,W/C) (FIM): 4 (CGA) Sit to Lying (QC): 4 Lying-Sitting on Side/Bed(QC): 4 Sit to Stand (QC): 4 Rollin Roll Left to Right (QC): 4 Chair/Aih-jt-Woenl Xfer(QC): 4 Car Transfer (QC): 4 Gait (FIM): 2 Distance: 50' Walk 10 feet (QC): 4 Walk 10ft-Uneven Surface(QC): 4 Walk 50ft with 2 Turns (QC): 4 Gait Level of Assist: 4 Gait Assistive Device: Cane Large Base Quad Stairs (FIM): 1 # of Steps: 1 1 Step (curb) (QC): 4 Stairs Level Of Assist: 4 PT Plan Treatment/Plan Treatment Plan: Continue Plan of Care Treatment Plan: Bed Mobility, Concurrent Therapy, Education, Functional Activity Ashley, Functional Strength, Group Therapy, Gait, Safety, Therapeutic Exercise, Transfers Treatment Duration: March 08, 2019 Frequency: At least 5 of 7 days/Wk (IRF) Estimated Hrs Per Day: 1.5 hours per day Patient and/or Family Agrees t: Yes Safety Risks/Education Patient Education: Gait Training, Transfer Techniques, Correct Positioning, Safety Issues Teaching Recipient: Patient Teaching Methods: Demonstration, Discussion Response to Teaching: Verbalize Understanding, Return Demonstration, Reinforcement Needed Time/GCodes Time In: 1415 Time Out: 1445 Total Billed Treatment Time: 30 Total Billed Treatment 1,FA15m,GT15m G Codes Necessary: DEVIN Isaac SCRUMMASTER Feb 19, 2019 14:50
[2019-02-19 18:46] VITALS: BP 109/70
[2019-02-19] MEDS: traZODone 50 MG (DESYREL) TAB PO SCH (20:42)
[2019-02-19] MEDS: GABAPENTIN 100 MG (NEURONTIN) CAP PO SCH (20:42)
[2019-02-20] MEDS: VITAMIN D3 1,000 UNITS (CHOLECALCIFEROL) TABLET PO SCH (06:02)
[2019-02-20] MEDS: LEVOTHYROXINE 25 MCG (LEVOTHROID) TAB PO SCH (06:02)
[2019-02-20] MEDS: FERROUS SULF 325 MG (IRON) TAB PO SCH (06:02)
[2019-02-20 06:17] VITALS: BP 103/70
[2019-02-20 08:00] VITALS: BP 101/65
--- NOTE | 2019-02-20 08:31 | Occupational Ther Daily Note ---
OT Current Status-Daily Note Subjective Pt alert, lying in bed. Pt agrees to therapy. Increased anxiety today. No c/ o pain. Pt continues to need cueing to adhere to shldr precautions. Mental Status/Objective Therapy Code Descriptions/Definitions Functional [place] Measure: 0=Not Assessed/NA 4=Minimal Assistance 1=Total Assistance 5=Supervision or Setup 2=Maximal Assistance 6=Modified [place] 3=Moderate Assistance 7=Complete [place] ADL-Treatment Per OT eval-PT RECENTLY HAD rotator cuff repair (Left) on 01/24/19 by doctor John Chavez MD. pt has 3 phases for precautions Phase 1 (passive) week 1-4 full elevation, internal rotation and external rotation. no limitations Phase 2 (active) weeks 5&6 full motion in all planes with terminal stretch Phase 3 (resisted) week 7 Full motion with shrugs, row week 8 weight weight training Pt declines shower. Wants sponge bath at sink. Pt requires verbal cues to keep L shldr immobile. Pt does not c/o pain with active movement. Pt ambulated to bathroom using FWW with platform. Pt able to complete sponge bath with supervision and cues. Completed grooming mod I, sitting at sink. Assist to don socks. After set up, pt able to doff lower body clothing and don pants and briefs. Therapy Code Descriptions/Definitions Functional [place] Measure: 0=Not Assessed/NA 4=Minimal Assistance 1=Total Assistance 5=Supervision or Setup 2=Maximal Assistance 6=Modified [place] 3=Moderate Assistance 7=Complete [place] Therapy Quality Codes: 6 Independent with activity with or without an assistive device 5 Patient requires set up or clean up by helper. Patient completes activity by themselves 4 Supervision or touching assist (CGA). [place] provide cues , steadying assist 3 The helper provides less than half the effort to complete the activity 2 The helper provides more than half the effort to complete the activity 1 Dependent. The helper does all the effort to complete an activity 7 Patient refused to complete or attempt activity 9 The patient did not perform the activity before the current illness or injury 88 Not attempted due to Medical conditions or safety concerns Grooming (FIM): 6 Oral Hygiene (QC): 6 Bathing (FIM): 5 Shower/Bathe Self (QC): 4 Upper Body (FIM): 5 (Set up and reminders to adhere to precautions.) Upper Body Dressing (QC): 5 Lower Body Dressing (FIM): 4 Lower Body Dressing (QC): 3 On/Off Footwear (QC): 3 Other Treatment Pt ambulated to therapy gym using FWW with platform. PROM to L shldr completed , discomfort at 90* shldr flexion, no other c/o pain with PROM. Theraputty with beads completed to increase pinch and strength of B hands for daily functional tasks. Arm bike 15 min at 15 corbett resistance with R UE to increase activity tolerance and strength. After therapy, pt sitting in recliner with call light/phone in reach. All needs met in room. OT Short Term Goals Short Term Goals Eating(FIM): 6 Grooming(FIM): 5 Bathing(FIM): 5 Bathing Location: L Arm, R Arm, L Upper Leg, R Upper Leg, L Lower Leg ( including foot), R Lower Leg (including foot), Chest, Abdomen, Buttocks, Perineal Area Upper Body Dressing(FIM): 5 Lower Body Dressing(FIM): 5 Toileting(FIM): 5 Transfers (B,C,W/C) (FIM): 4 Toilet/Commode Transfer(FIM): 5 Tub Transfer(FIM): 5 Shower Transfer(FIM): 5 1=Demonstrate adherence to instructed precautions during ADL tasks. 2=Patient will verbalize/demonstrate understanding of assistive devices/ modifications for ADL. 3=Patient will improve strength/tolerance for activity to enable patient to perform ADL's. OT Truck Despatcher Goals Truck Despatcher Goals Eating (FIM): 6 Eating (QC): 6 Groomin Oral Hygiene (QC): 6 Bathing(FIM): 6 Bathing Location: L Arm, R Arm, L Upper Leg, R Upper Leg, L Lower Leg ( including foot), R Lower Leg (including foot), Chest, Abdomen, Buttocks, Perineal Area Shower/Bathe Self (QC): 6 Upper Body Dressing(FIM): 6 Upper Body Dressing (QC): 6 Lower Body Dressing(FIM): 6 Lower Body Dressing (QC): 6 On/Off Footwear (QC): 6 Toileting(FIM): 6 Toileting Hygiene (QC): 6 Transfers (B,C,W/C) (FIM): 6 Toilet/Commode Transfer(FIM): 6 Toilet/Commode Transfer (QC): 6 Tub Transfer(FIM): 6 Shower Transfer(FIM): 6 Additional Goals: 1-Demonstrate ADL Tasks, 2-Verbalize Understanding, 3- ImproveStrength/Ashley 1=Demonstrate adherence to instructed precautions during ADL tasks. 2=Patient will verbalize/demonstrate understanding of assistive devices/ modifications for ADL. 3=Patient will improve strength/tolerance for activity to enable patient to perform ADL's. OT Education/Plan Problem List/Assessment Assessment: Impaired Self-Care Skills, Restricted Funct UE ROM 78 year old female present to OT services secondary to frequent falls at home. pt had recently rotator cuff surgery on 01/24/19. during evaluation pt required total assist for LB dressing, total assist with UB dressing, MAX A for toileting , MIN A for sit to stands. pt presents with functional limitations affecting areas of ADLS and functional transfers with deficits in: decrease overall balance, activity tolerance/ endurance, decrease safety awareness, decrease ability to follow shoulder precautions, impaired IADLs, and decrease overall safety with functional task in sitting and standing. pt would benefit from skilled OT services to increase overall independence with ADLS and functional transfers and to address above mention deficits. Discharge Recommendations Plan/Recommendations: Continue POC Treatment Plan/Plan of Care Patient would benefit from OT for education, treatment and training to promote independence in ADL's, mobility, safety and/or upper extremity function for ADL' s. Plan of Care: ADL Retraining, Caregiver Training, Concurrent Therapy, Functional Mobility, Group Exercise/Act as Ind, Orthotic Fitting/Training, UE Funct Exercise/Act Treatment Duration: March 08, 2019 Frequency: At least 5 of 7 days/Wk (IRF) Estimated Hrs Per Day: 1.5 hours per day Agreement: Yes Rehab Potential: Guarded Time/GCodes Start Time: 08:00 Stop Time: 09:30 Total Time Billed (hr/min): 90 Billed Treatment Time 1 visit-ADL 4 (60 min) EX 2 (30 min) OMID WALSH Feb 20, 2019 08:31
--- NOTE | 2019-02-20 08:56 | PM&R Progress Note ---
Subjective HPI/CC On Admission Date Seen by Provider: Feb 20, 2019 Time Seen by Provider: 08:30 CC: Falls with debility HPI: This is a 78[address]WF [address] Jauregui at [facility] who presents to the IRF due to multiple falls and recent left shoulder surgery. Apparently she resides at home in [place] and her daughter is involved in her are. She sees Cardiology and Nephrology at [facility]. PLOF was independent. Currently I have restarted all meds and reviewed PMH. Patient denies pain currently and overall she just feels weak and is afraid to walk because she feels like she is falling. Barriers to return home independently will include improved ambulation and resumption of ADL independence. Subjective/Events-last exam Mental health professional evaluated her did not find her to be bipolar just severe anxiety. Talked to her about her anxiousness and her Xanax dependency and will confer with Dr. Jauregui's office which was done by the nurse and it appears she takes 0.5 mg in the morning and 1 mg at night so will change the medication doses to that. She is using her left arm a lot and unsure if that was supposed to be like that after her surgery done by Dr. Chavez so will reach out to Dr. Chavez about a brace. Participating in all therapies. Conferred with the RN. Bowels are moving. LFT's are much improved with statin held and limiting Tylenol Review of Systems General: Fatigue Musculoskeletal: arm pain Anxiety Objective Exam Vital Signs Vital Signs Date Time Temp Pulse Resp B/P (MAP) Pulse Ox O2 Delivery O2 Flow Rate FiO2 02/20/19 17:17 Room Air 02/20/19 15:25 97.2 95 16 108/76 (87) 98 Capillary Refill : General Appearance: No Apparent Distress, WD/WN, Chronically ill HEENT: PERRL/EOMI, Normal ENT Inspection, Pharynx Normal Neck: Full Range of Motion, Normal Inspection, Non Tender, Supple Respiratory: Chest Non Tender, Lungs Clear, Normal Breath Sounds, No Accessory Muscle Use, No Respiratory Distress Cardiovascular: No Edema, No Gallop, No JVD, No Murmur, Normal Peripheral Pulses, Irregularly Irregular Gastrointestinal: Normal Bowel Sounds, No Organomegaly, No Pulsatile Mass, Non Tender, Soft Back: Normal Inspection, No CVA Tenderness, No Vertebral Tenderness Extremity: Normal Capillary Refill, Normal Inspection, Normal Range of Motion, Non Tender, No Calf Tenderness Neurologic/Psychiatric: Alert, Oriented x3, No Motor/Sensory Deficits, high lift driver II- XII Norm as Tested, Depressed Affect, Motor Weakness (generalized weakness 4/5 all extremities), Other (anxious) Skin: Normal Color, Warm/Dry Lymphatic: No Adenopathy Results/Procedures Lab Patient resulted labs reviewed. FIM Transfers Therapy Code Descriptions/Definitions Functional [place] Measure: 0=Not Assessed/NA 4=Minimal Assistance 1=Total Assistance 5=Supervision or Setup 2=Maximal Assistance 6=Modified [place] 3=Moderate Assistance 7=Complete [place] Therapy Quality Codes: 6 Independent with activity with or without an assistive device 5 Patient requires set up or clean up by helper. Patient completes activity by themselves 4 Supervision or touching assist (CGA). [place] provide cues , steadying assist 3 The helper provides less than half the effort to complete the activity 2 The helper provides more than half the effort to complete the activity 1 Dependent. The helper does all the effort to complete an activity 7 Patient refused to complete or attempt activity 9 The patient did not perform the activity before the current illness or injury 88 Not attempted due to Medical conditions or safety concerns Mental Status/Objective Comprehension: 7 Expression: 7 Social Interaction: 7 Problem Solvin Memory: 6 ADL-Treatment Feedin (Pt needed lower table so that she could use her L hand as a helper for eating. Setup needed for some items - she may need some foods cut up if they are tough. Used fork to open drink can. Able to get food to her mouth and get a drink, using R hand. Supervision) Eating (QC): 4 (supervision) Groomin (Setup, supervision for grooming at sink, seated. Some cues for attending to items in environment but it got better as she was more awake. Washed face, brushed teeth, combed hair. Cues to use L hand in lap but not to bring hand up to sink counter actively. ) Oral Hygiene (QC): 4 (supervision) Bathin (Supervision and reminders for shldr precautions. Pt able to complete bathing using shower bench, hand held shower and grabbars.) Bathing Location: L Arm, R Arm, L Upper Leg, R Upper Leg, L Lower Leg ( including foot), R Lower Leg (including foot), Chest, Abdomen, Buttocks, Perineal Area Shower/Bathe Self (QC): 4 Upper Extremity Dressin (Reminders for shldr precautions. Pt able to complete by self after set up.) Upper Body Dressing (QC): 4 Lower Extremity Dressin (Assist donning socks. Pt able to complete doffing clothing with SBA for safety. Dons pants over feet and up LE's. Pt able to hike underwear over hips with R UE. Assist with jeans to hike over hips.) Lower Body Dressing (QC): 3 On/Off Footwear (QC): 3 Toiletin (Help to get pants up and down but able to wipe with verbal cues for problem solving. Min assist to maintain balance while managing clothing. Used grab bar on R side of toilet. Platform walker. ) Toileting Hygiene (QC): 2 Toilet/Commode Transfer: 4 (Min to CGA assist to get on/off tall toilet, using grab bar. ) Toilet Transfer (QC): 3 Shower: 4 (CGA due to 1 LOB. Using grabbars, FWW and shower bench.) Assessment/Plan Assessment and Plan Assess & Plan/Chief Complaint Assessment: Falls Debility Recent shoulder surgery left Bipolar d/o? Amxiety Chronic pain Neuropathy Chronic constipation CRI AF Elevated LFT's improved with decreased Tylenol dosing and holding statin and other meds Overuse of meds now much improved Drowsiness resolved since minimizing meds Hyponatremia Plan: IRF protocol Home meds Check labs Cardiology consultation for cardiac management while hospitalized is appreciated Hold statin Minimize Tylenol Minimize all sedating meds Minimize water intake due to mild hyponatremia and patient appears to be high risk for psychogenic polydipsia Xanax dosing as per PCP (1) Debility (2) Thrombocytopenia (3) Overuse of medication (4) Drowsiness (5) Atrial fibrillation (6) Anticoagulated (7) Elevated liver enzymes (8) Fall on same level (9) Falls (10) Weakness (11) Bipolar 1 disorder (12) Hyponatremia (13) Insomnia (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
--- NOTE | 2019-02-20 10:00 | NUR ---
PER DR. ISAAC'S REQUEST, CLARIFIED XANAX DOSE TAKING AT HOME. DR. PHILLIPS'S OFFICE STATES ORDER WAS FOR XANAX 1.5 MG BID. AFTER MUCH DISCUSSION WITH PATIENT, SHE STATES SHE TAKES 0.5 MG IN AM AND [address] ISAAC NOTIFIED AND CHANGE WAS MADE.
[2019-02-20] MEDS: APIXABAN 2.5 MG (ELIQUIS) TABLET PO SCH ×2 (10:01→20:00)
[2019-02-20] MEDS: buPROPion SR 150 MG (WELLBUTRIN SR) TAB PO SCH ×2 (10:01→20:01)
[2019-02-20] MEDS: PANTOPRAZOLE 20 MG TABLET (PROTONIX) PO SCH (10:01)
[2019-02-20] MEDS: FLECAINIDE 100 MG (TAMBOCOR) TAB PO SCH ×2 (10:02→20:01)
[2019-02-20] MEDS: meTOprolol TARTRATE 25 MG (LOPRESSOR) TABLET PO SCH ×2 (10:02→20:01)
[2019-02-20] MEDS: ALPRAZolam 0.5 MG (XANAX) TAB PO SCH (10:02)
--- NOTE | 2019-02-20 10:26 | NUR ---
MESSAGE LEFT WITH DR. OWENS IF PATIENT NEEDS A ROTATOR CUFF SPLINT. PATIENT SUPPOSEDLY WEARS A SLING ON LEFT ARM, BUT TAKES IT OUT AND WAVES IT ALL AROUND WHEN TALKING. NOT HAVING TOO MUCH PAIN IN ARM.
--- NOTE | 2019-02-20 10:52 | Behavioral Health Consult ---
Consult- Consult Date Seen by Provider: Feb 19, 2019 Time Seen by Provider: 13:10 [facility]. [facility] PSYCHOLOGICAL CONSULTATION PATIENT: Eliz Mohr DATE: 1940 DATES OF EVALUATION: 02/19/19 (13:10-14:10) DATE OF REPORT: 02/20/19 REFERRAL QUESTION: Eliz Mohr is a 78 year-old female who was admitted to the hospital due to complications from a fall. Dr. Quintanilla asked for a psychological consultation for behavioral/mood issues. TEST ADMINISTERED: Clinical Interview with Patient PRESENTING PROBLEMS: Eliz Mohr reports that over the past decade or so, she has fallen quite a bit. She states that her most recent fall was likely due to feeling weak and the fact her energy level fell apart. She states that she had difficulty walking and fell trying to walk up steps. She states that she knows that she needs to get stronger and eat better to get strong enough to go home. She talked about loneliness playing a factor and the weather also playing a part in her depression. She states that she deals with anxiety as well and noticed that getting worse recently especially when she volunteers. She states that she feels comfortable living by herself and knows what she needs to do a better job of taking care of herself. CURRENT/PREVIOUS MENTAL HEALTH TREATMENT: Eliz reports receiving mental health treatment starting about thirty years ago for anxiety. She states that she struggled some after her daughter moved out and she was alone. She states that it was difficult to adjust to being by herself. She reports taking Wellbutrin and Xanax for a long time to help treat her anxiety and depression. She states that she saw Dr. Avila for a while in [place] before he moved. She states that she saw a few providers through telemedicine but now receives her medication through her PCP, Dr. Jauregui. She is currently talking Wellbutrin, Xanax, Trazadone and Neurontin. She states that she saw Dr. Mcgill for several years for psychotherapy but has not felt like she needed it recently. MEDICAL HISTORY: See medical chart for detailed history. She reports having a hip replacement and a recent upper leg injury. RECREATIONAL DRUG USAGE: This area was not assessed. VOCATIONAL/EDUCATIONAL HISTORIES: Eliz reports that she most recently worked part-time at [employer] before getting too sick to work. She reports that she retired at age 63 and began watching her youngest grandson during the days. 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 FAMILY AND SOCIAL HISTORIES/SOCIAL SUPPORT: Eliz reports living by herself at [place] in a fourplex. She states that she enjoys it out there but is not close with too many people out there as the people she used to know are not there anymore. Eliz reports that she has two adult children and four grandchildren. She talked about them quite a bit and appears close with many of them. She does report feeling lonely though. She states that she was to her childrens father for seven and a half years but that he was too spoiled. She states that she remarried five years later to a man who was also spoiled. She states that marriage lasted seven and a half years as well. BEHAVIORAL OBSERVATIONS/MENTAL STATUS: The patient was seen in her hospital room as she was sitting up in a chair dressed in a sweatshirt with a blanket on covering her torso and legs. She was pleasant throughout and answered each of the therapists questions. She had a bright affect with a somewhat melancholy mood. She seemed hopeful that she was getting better physically and would be able to return home next week possibly. She appeared motivated to get better and do what was necessary to do so. SUMMARY: Ms. Eliz Mohr is currently at the hospital due to complications from a fall. She talked about how she feels comfortable living by herself but knows that she needs to eat better, get out more, and do other things to ensure that she does well upon returning home. She was encouraged to follow up on her psychiatric medication if she feels like it is not working. DIAGNOSTIC IMPRESSIONS: F33.1 Major Depressive Disorder, Recurrent, Moderate and F41.1 Generalized Anxiety Disorder, Provisional Thank you for the opportunity to consult on this patient. RAFAELA WHARTON PSYD Feb 20, 2019 10:52
--- NOTE | 2019-02-20 11:49 | Progress Note-Cardiology ---
Cardiology SOAP Progress Note Subjective: No new c/o. Objective: I&O/Vital Signs 02/20/19 02/20/19 02/20/19 02/20/19 09:00 15:25 17:17 19:59 Temp 97.2 Pulse 95 106 Resp 16 20 B/P (MAP) 108/76 (87) 127/87 (100) Pulse Ox 98 O2 Delivery Room Air Room Air Room Air Room Air 02/20/19 20:05 O2 Delivery Room Air 02/20/19 00:00 Intake Total 400 ml Balance 400 ml Weight (Pounds): 148 Weight (Ounces): 0.0 Weight (Calculated Kilograms): 67.794854 Constitutional: AAO x 3, well-developed, well-nourished Respiratory: No accessory muscle use; lungs clear to percussion, lungs clear to auscultation Cardiovascular: irregularly irregular, S1 and S2, systolic murmur (faint DONG at card base) Gastrointestional: soft; No guarding, No rebound, No tenderness; audible bowel sounds Extremities: No clubbing, No cyanosis, No significant edema Neurologic/Psychiatric: oriented x 3, other (4/5 power bilat), grossly intact Skin: No rash on exposed areas, No ulcerations on exposed areas Results/Procedures: Labs Laboratory Tests 02/19/19 04:25 A/P: Assessment: Chronic persistent A Fib Mild CAD on card cath of 2016, according to the patient H/o hyperlipidemia Gen weakness, being evaluated and treated by Dr Quintanilla Plan: * Continue apixaban and statin * Monitor labs from time to time Physician Assessment Physician Assessment Gen malaise. No cp or palp or syncope. Exertional shortness of breath Cor reg Lungs: decreased bs at bases Ext: no c/c/e A&R * As documented in our note above that I updated (italics) and as noted below * Order echo * Request cardiac records EMMA [facility] Feb 20, 2019 11:49 MOHINI VELASQUEZ MD FACP [facility] Feb 20, 2019 20:10
--- NOTE | 2019-02-20 13:00 | NUR ---
MARY MCCONNELL RETURNED CALL AND STATES LEFT ARM SLING CAN BE REMOVED TOMORROW.
--- NOTE | 2019-02-20 13:13 | Physical Therapy Daily Note ---
PT Daily Note-Current Subjective Pt. agrees to Rx and states she feels she os finally making progress. Pt. later c/o fatigue and needs to rest. Pain Location: No Pain Reported Mental Status Patient Orientation: Normal For Age Attachments: Other-See Comments (sling LUE) Transfers Therapy Code Descriptions/Definitions Functional [place] Measure: 0=Not Assessed/NA 4=Minimal Assistance 1=Total Assistance 5=Supervision or Setup 2=Maximal Assistance 6=Modified [place] 3=Moderate Assistance 7=Complete [place] Therapy Quality Codes: 6 Independent with activity with or without an assistive device 5 Patient requires set up or clean up by helper. Patient completes activity by themselves 4 Supervision or touching assist (CGA). [place] provide cues , steadying assist 3 The helper provides less than half the effort to complete the activity 2 The helper provides more than half the effort to complete the activity 1 Dependent. The helper does all the effort to complete an activity 7 Patient refused to complete or attempt activity 9 The patient did not perform the activity before the current illness or injury 88 Not attempted due to Medical conditions or safety concerns Transfers (B, C, W/C) (FIM): 4 Scootin Rollin Supine to/from Sit: 5 Sit to/from Stand: 4 Weight Bearing Patient has rotator cuff precautions on the left shoulder Gait Training Does the Patient Walk?: Yes Gait (FIM): 2 Distance (FIM): 7=823-38 ft (80x2) Gait Level of Assist: 4 Gait Persons Needed: 1 Gait Assistive Device: Walker Giles slow with some cues for sequence and step length and gaze Exercises Seated Therapy Exercises: Ankle pumps, Sit to stand, Long arc quads, Hip flexion Seated Reps: 15 NuStep Minutes: 12 NuStep Workload: 2 Treatments side stepping, backing, turns with instruction for safety and placement PT Short Term Goals Short Term Goals Time Frame: February 22, 2019 Transfers (B,C,W/C) (FIM): 4 Gait (FIM): 1 Gait Distance Comment: 20' Gait Level of Assist: 4 Gait Assistive Device: FWW PT Sap Project Manager Goals [facility] Goals PT [facility] Goals Time Frame: March 08, 2019 Transfers (B,C,W/C) (FIM): 4 (CGA) Sit to Lying (QC): 4 Lying-Sitting on Side/Bed(QC): 4 Sit to Stand (QC): 4 Rollin Roll Left to Right (QC): 4 Chair/Bnj-xs-Dwevx Xfer(QC): 4 Car Transfer (QC): 4 Gait (FIM): 2 Distance: 50' Walk 10 feet (QC): 4 Walk 10ft-Uneven Surface(QC): 4 Walk 50ft with 2 Turns (QC): 4 Gait Level of Assist: 4 Gait Assistive Device: Cane Large Base Quad Stairs (FIM): 1 # of Steps: 1 1 Step (curb) (QC): 4 Stairs Level Of Assist: 4 PT Plan Treatment/Plan Treatment Plan: Continue Plan of Care Treatment Plan: Bed Mobility, Concurrent Therapy, Education, Functional Activity Ashley, Functional Strength, Group Therapy, Gait, Safety, Therapeutic Exercise, Transfers Treatment Duration: March 08, 2019 Frequency: At least 5 of 7 days/Wk (IRF) Estimated Hrs Per Day: 1.5 hours per day Patient and/or Family Agrees t: Yes Safety Risks/Education Patient Education: Gait Training, Transfer Techniques, Correct Positioning, Disease Process, Safety Issues Teaching Recipient: Patient Teaching Methods: Demonstration, Discussion Response to Teaching: Verbalize Understanding, Return Demonstration, Reinforcement Needed Time/GCodes Time In: 1000 Time Out: 1100 Total Billed Treatment Time: 60 Total Billed Treatment 1,GT30m,EX20, FA10m G Codes Necessary: DEVIN Isaac WATERMELON INSPECTOR Feb 20, 2019 13:13
--- NOTE | 2019-02-20 14:12 | NUR ---
provided prayer and Communion.
--- NOTE | 2019-02-20 14:42 | Physical Therapy Daily Note ---
PT Daily Note-Current Subjective Pt. agrees to Rx. States she would like to exercise and walk Pain Location: No Pain Reported Mental Status Patient Orientation: Normal For Age Attachments: Other-See Comments (sling LUE) Transfers Therapy Code Descriptions/Definitions Functional [place] Measure: 0=Not Assessed/NA 4=Minimal Assistance 1=Total Assistance 5=Supervision or Setup 2=Maximal Assistance 6=Modified [place] 3=Moderate Assistance 7=Complete [place] Therapy Quality Codes: 6 Independent with activity with or without an assistive device 5 Patient requires set up or clean up by helper. Patient completes activity by themselves 4 Supervision or touching assist (CGA). [place] provide cues , steadying assist 3 The helper provides less than half the effort to complete the activity 2 The helper provides more than half the effort to complete the activity 1 Dependent. The helper does all the effort to complete an activity 7 Patient refused to complete or attempt activity 9 The patient did not perform the activity before the current illness or injury 88 Not attempted due to Medical conditions or safety concerns sup to sit and sit to stand SBA to CGA Weight Bearing Patient has rotator cuff precautions on the left shoulder Gait Training Gait Assistive Device: Walker Giles 40 ft x 2 CGA , chair approaches , turns and backing with instruction Exercises Supine Ex: Bridging, Ankle pumps, Quad Set, Rolling, Glut sets, Heel Slides, Short Arc Quads, Scooting, Straight leg raise, Hip abd/add Supine Reps: 10 (x2) Seated Therapy Exercises: Ankle pumps, Sit to stand, Long arc quads Seated Reps: 10 Assessment Current Status: Good Progress PT Short Term Goals Short Term Goals Time Frame: February 22, 2019 Transfers (B,C,W/C) (FIM): 4 Gait (FIM): 1 Gait Distance Comment: 20' Gait Level of Assist: 4 Gait Assistive Device: FWW PT Cnc Manufacturing Engineer Goals Cnc Manufacturing Engineer Goals PT Senior Living Goals Time Frame: March 08, 2019 Transfers (B,C,W/C) (FIM): 4 (CGA) Sit to Lying (QC): 4 Lying-Sitting on Side/Bed(QC): 4 Sit to Stand (QC): 4 Rollin Roll Left to Right (QC): 4 Chair/Yoj-yr-Arbbo Xfer(QC): 4 Car Transfer (QC): 4 Gait (FIM): 2 Distance: 50' Walk 10 feet (QC): 4 Walk 10ft-Uneven Surface(QC): 4 Walk 50ft with 2 Turns (QC): 4 Gait Level of Assist: 4 Gait Assistive Device: Cane Large Base Quad Stairs (FIM): 1 # of Steps: 1 1 Step (curb) (QC): 4 Stairs Level Of Assist: 4 PT Plan Treatment/Plan Treatment Plan: Continue Plan of Care Treatment Plan: Bed Mobility, Concurrent Therapy, Education, Functional Activity Ashley, Functional Strength, Group Therapy, Gait, Safety, Therapeutic Exercise, Transfers Treatment Duration: March 08, 2019 Frequency: At least 5 of 7 days/Wk (IRF) Estimated Hrs Per Day: 1.5 hours per day Patient and/or Family Agrees t: Yes Safety Risks/Education Patient Education: Gait Training, Transfer Techniques, Correct Positioning, Disease Process, Safety Issues Teaching Recipient: Patient Teaching Methods: Demonstration, Discussion Response to Teaching: Verbalize Understanding, Return Demonstration, Reinforcement Needed Time/GCodes Time In: 1400 Time Out: 1435 Total Billed Treatment Time: 35 Total Billed Treatment 1,Ex15m,GT15m G Codes Necessary: DEVIN Isaac RETRIEVAL SPECIALIST Feb 20, 2019 14:42
[2019-02-20 15:25] VITALS: BP 108/76
--- NOTE | 2019-02-20 18:00 | NUR ---
BETTER SPIRITS TODAY. AN UNEVENTFUL DAY.
[2019-02-20 19:59] VITALS: BP 127/87
[2019-02-20] MEDS: GABAPENTIN 100 MG (NEURONTIN) CAP PO SCH (20:01)
[2019-02-20] MEDS: traZODone 50 MG (DESYREL) TAB PO SCH (20:01)
[2019-02-20] MEDS: ALPRAZolam 1 MG (XANAX) TAB PO SCH (20:01)
[2019-02-20] MEDS ORDERED: ALPRAZolam 0.25 MG (XANAX) TAB PO SCH (21:00)
[2019-02-21 05:55] VITALS: BP 114/80
[2019-02-21] MEDS: LEVOTHYROXINE 25 MCG (LEVOTHROID) TAB PO SCH (06:21)
[2019-02-21] MEDS: VITAMIN D3 1,000 UNITS (CHOLECALCIFEROL) TABLET PO SCH (06:21)
[2019-02-21] MEDS: FERROUS SULF 325 MG (IRON) TAB PO SCH (06:21)
--- NOTE | 2019-02-21 08:33 | Progress Note-Hospitalist ---
Subjective HPI/CC On Admission Date Seen by Provider: February 21, 2019 Time Seen by Provider: 08:30 CC: Falls with debility HPI: This is a 78yo[address] Jauregui at [facility] who presents to the IRF due to multiple falls and recent left shoulder surgery. Apparently she resides at home in [place] and her daughter is involved in her are. She sees Cardiology and Nephrology at [facility]. PLOF was independent. Currently I have restarted all meds and reviewed PMH. Patient denies pain currently and overall she just feels weak and is afraid to walk because she feels like she is falling. Barriers to return home independently will include improved ambulation and resumption of ADL independence. Review of Systems Anxiety Objective Exam Vital Signs Vital Signs Date Time Temp Pulse Resp B/P (MAP) Pulse Ox O2 Delivery O2 Flow Rate FiO2 02/21/19 05:55 97.1 97 16 114/80 (91) 96 Room Air Capillary Refill : General Appearance: No Apparent Distress, WD/WN, Chronically ill HEENT: PERRL/EOMI, Normal ENT Inspection, Pharynx Normal Neck: Full Range of Motion, Normal Inspection, Non Tender, Supple Respiratory: Chest Non Tender, Lungs Clear, Normal Breath Sounds, No Accessory Muscle Use, No Respiratory Distress Cardiovascular: No Edema, No Gallop, No JVD, No Murmur, Normal Peripheral Pulses, Irregularly Irregular Gastrointestinal: Normal Bowel Sounds, No Organomegaly, No Pulsatile Mass, Non Tender, Soft Back: Normal Inspection, No CVA Tenderness, No Vertebral Tenderness Extremity: Normal Capillary Refill, Normal Inspection, Normal Range of Motion, Non Tender, No Calf Tenderness Neurologic/Psychiatric: Alert, Oriented x3, No Motor/Sensory Deficits, 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 Assessment/Plan Assessment and Plan Assess & Plan/Chief Complaint Assessment: Falls Debility Recent shoulder surgery left Bipolar d/o? Amxiety Chronic pain Neuropathy Chronic constipation CRI AF Elevated LFT's improved with decreased Tylenol dosing and holding statin and other meds Overuse of meds now much improved Drowsiness resolved since minimizing meds Hyponatremia Plan: IRF protocol Home meds Check labs Cardiology consultation for cardiac management while hospitalized is appreciated Hold statin Minimize Tylenol Minimize all sedating meds Minimize water intake due to mild hyponatremia and patient appears to be high risk for psychogenic polydipsia Xanax dosing as per PCP Diagnosis/Problems Diagnosis/Problems (1) Debility (2) Thrombocytopenia (3) Overuse of medication (4) Drowsiness (5) Atrial fibrillation Status: Acute (6) Anticoagulated Status: Acute (7) Elevated liver enzymes Status: Acute (8) Fall on same level Status: Acute (9) Falls Status: Acute (10) Weakness Status: Acute (11) Bipolar 1 disorder (12) Hyponatremia (13) Insomnia (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
--- NOTE | 2019-02-21 08:34 | PM&R Progress Note ---
Subjective HPI/CC On Admission Date Seen by Provider: February 21, 2019 Time Seen by Provider: 08:30 CC: Falls with debility HPI: This is a 78yoWF of [address] Jauregui at [facility] who presents to the IRF due to multiple falls and recent left shoulder surgery. Apparently she resides at home in [place] and her daughter is involved in her are. She sees Cardiology and Nephrology at [facility]. PLOF was independent. Currently I have restarted all meds and reviewed PMH. Patient denies pain currently and overall she just feels weak and is afraid to walk because she feels like she is falling. Barriers to return home independently will include improved ambulation and resumption of ADL independence. Subjective/Events-last exam Physical therapy reports she is standby assistance walking 65, 45, 100 feet but fatigues easily Occupational therapy reports she is very weak and fatigues easily Multiple falls at home Discharge plan for 03/01/19 No issues from the patient since Xanax has been all organized per home dosing per PCP Sling is allowed to leave off Dr Herring checked ECHO today Note from 02/20/19: Mental health professional evaluated her did not find her to be bipolar just severe anxiety. Talked to her about her anxiousness and her Xanax dependency and will confer with Dr. Jauregui's office which was done by the nurse and it appears she takes 0.5 mg in the morning and 1 mg at night so will change the medication doses to that. She is using her left arm a lot and unsure if that was supposed to be like that after her surgery done by Dr. Chavez so will reach out to Dr. Chavez about a brace. Participating in all therapies. Conferred with the RN. Bowels are moving. LFT's are much improved with statin held and limiting Tylenol Review of Systems General: Fatigue Musculoskeletal: arm pain Neurological: Weakness, Incoordination Anxiety Objective Exam Vital Signs Vital Signs Date Time Temp Pulse Resp B/P (MAP) Pulse Ox O2 Delivery O2 Flow Rate FiO2 02/21/19 09:00 Room Air 02/21/19 05:55 97.1 97 16 114/80 (91) 96 Capillary Refill : General Appearance: No Apparent Distress, WD/WN, Chronically ill HEENT: PERRL/EOMI, Normal ENT Inspection, Pharynx Normal Neck: Full Range of Motion, Normal Inspection, Non Tender, Supple Respiratory: Chest Non Tender, Lungs Clear, Normal Breath Sounds, No Accessory Muscle Use, No Respiratory Distress Cardiovascular: No Edema, No Gallop, No JVD, No Murmur, Normal Peripheral Pulses, Irregularly Irregular Gastrointestinal: Normal Bowel Sounds, No Organomegaly, No Pulsatile Mass, Non Tender, Soft Back: Normal Inspection, No CVA Tenderness, No Vertebral Tenderness Extremity: Normal Capillary Refill, Normal Inspection, Normal Range of Motion, Non Tender, No Calf Tenderness Neurologic/Psychiatric: Alert, Oriented x3, No Motor/Sensory Deficits, pewter caster II- XII Norm as Tested, Depressed Affect, Motor Weakness (generalized weakness 4/5 all extremities), Other (anxious) Skin: Normal Color, Warm/Dry Lymphatic: No Adenopathy Results/Procedures Lab Patient resulted labs reviewed. FIM Transfers Therapy Code Descriptions/Definitions Functional [place] Measure: 0=Not Assessed/NA 4=Minimal Assistance 1=Total Assistance 5=Supervision or Setup 2=Maximal Assistance 6=Modified [place] 3=Moderate Assistance 7=Complete [place] Therapy Quality Codes: 6 Independent with activity with or without an assistive device 5 Patient requires set up or clean up by helper. Patient completes activity by themselves 4 Supervision or touching assist (CGA). [place] provide cues , steadying assist 3 The helper provides less than half the effort to complete the activity 2 The helper provides more than half the effort to complete the activity 1 Dependent. The helper does all the effort to complete an activity 7 Patient refused to complete or attempt activity 9 The patient did not perform the activity before the current illness or injury 88 Not attempted due to Medical conditions or safety concerns Mental Status/Objective Comprehension: 7 Expression: 7 Social Interaction: 7 Problem Solvin Memory: 6 ADL-Treatment Feedin (Pt needed lower table so that she could use her L hand as a helper for eating. Setup needed for some items - she may need some foods cut up if they are tough. Used fork to open drink can. Able to get food to her mouth and get a drink, using R hand. Supervision) Eating (QC): 4 (supervision) Groomin Oral Hygiene (QC): 6 Bathin Bathing Location: L Arm, R Arm, L Upper Leg, R Upper Leg, L Lower Leg ( including foot), R Lower Leg (including foot), Chest, Abdomen, Buttocks, Perineal Area Shower/Bathe Self (QC): 4 Upper Extremity Dressin (Set up and reminders to adhere to precautions.) Upper Body Dressing (QC): 5 Lower Extremity Dressin Lower Body Dressing (QC): 3 On/Off Footwear (QC): 3 Toiletin (Help to get pants up and down but able to wipe with verbal cues for problem solving. Min assist to maintain balance while managing clothing. Used grab bar on R side of toilet. Platform walker. ) Toileting Hygiene (QC): 2 Toilet/Commode Transfer: 4 (Min to CGA assist to get on/off tall toilet, using grab bar. ) Toilet Transfer (QC): 3 Shower: 4 (CGA due to 1 LOB. Using grabbars, FWW and shower bench.) Assessment/Plan Assessment and Plan Assess & Plan/Chief Complaint Assessment: Falls Debility Recent shoulder surgery left Bipolar d/o? Amxiety Chronic pain Neuropathy Chronic constipation CRI AF Elevated LFT's improved with decreased Tylenol dosing and holding statin and other meds Overuse of meds now much improved Drowsiness resolved since minimizing meds Hyponatremia Plan: IRF protocol Home meds Check labs Cardiology consultation for cardiac management while hospitalized is appreciated Hold statin Minimize Tylenol Minimize all sedating meds Minimize water intake due to mild hyponatremia and patient appears to be high risk for psychogenic polydipsia Xanax dosing as per PCP Check labs in am 02/22/19 (1) Debility (2) Thrombocytopenia (3) Overuse of medication (4) Drowsiness (5) Atrial fibrillation (6) Anticoagulated (7) Elevated liver enzymes (8) Fall on same level (9) Falls (10) Weakness (11) Bipolar 1 disorder (12) Hyponatremia (13) Insomnia (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
--- NOTE | 2019-02-21 08:38 | Occupational Ther Daily Note ---
OT Current Status-Daily Note Subjective Pt alert, lying in bed. Pt agrees to therapy. No c/o pain at this time. Mental Status/Objective Patient Orientation: Person, Place, Time, Situation Therapy Code Descriptions/Definitions Functional [place] Measure: 0=Not Assessed/NA 4=Minimal Assistance 1=Total Assistance 5=Supervision or Setup 2=Maximal Assistance 6=Modified [place] 3=Moderate Assistance 7=Complete [place] ADL-Treatment Per OT eval-PT RECENTLY HAD rotator cuff repair (Left) on 01/24/[address] John Chavez MD. pt has 3 phases for precautions Phase 1 (passive) week 1-4 full elevation, internal rotation and external rotation. no limitations Phase 2 (active) weeks 5&6 full motion in all planes with terminal stretch Phase 3 (resisted) week 7 Full motion with shrugs, row week 8 weight weight training Physician reported to nrs that 4th week ended today. Pt in Phase 2. Therapy Code Descriptions/Definitions Functional [place] Measure: 0=Not Assessed/NA 4=Minimal Assistance 1=Total Assistance 5=Supervision or Setup 2=Maximal Assistance 6=Modified [place] 3=Moderate Assistance 7=Complete [place] Therapy Quality Codes: 6 Independent with activity with or without an assistive device 5 Patient requires set up or clean up by helper. Patient completes activity by themselves 4 Supervision or touching assist (CGA). [place] provide cues , steadying assist 3 The helper provides less than half the effort to complete the activity 2 The helper provides more than half the effort to complete the activity 1 Dependent. The helper does all the effort to complete an activity 7 Patient refused to complete or attempt activity 9 The patient did not perform the activity before the current illness or injury 88 Not attempted due to Medical conditions or safety concerns Grooming (FIM): 6 (Sitting at sink, pt able to complete by self.) Oral Hygiene (QC): 6 Bathing (FIM): 4 (Using grabbars, hand held shower and shower bench pt able to complete own shower. LOB after missing grabbar to steady self in sitting, assist needed to right.) Bathing Location: L Arm, R Arm, L Upper Leg, R Upper Leg, L Lower Leg ( including foot), R Lower Leg (including foot), Chest, Abdomen, Buttocks, Perineal Area Shower/Bathe Self (QC): 4 Upper Body (FIM): 5 (After set up, pt able to complete by self.) Upper Body Dressing (QC): 5 Lower Body Dressing (FIM): 5 (After set up, pt able to complete by self. SBA in standing for safety.) Lower Body Dressing (QC): 4 On/Off Footwear (QC): 5 Transfers (B, C, W/C) (FIM): 5 (Close SBA using FWW.) Shower Transfer(FIM): 5 (Close SBA using FWW, grabbar and shower bench.) Other Treatment Pt ambulated with FWW to and from [facility]. Pt required long recovery break from walking to. After therapy, pt lying in bed with call light/phone in reach. All needs met in room. OT Short Term Goals Short Term Goals Eating(FIM): 6 Grooming(FIM): 5 Bathing(FIM): 5 Bathing Location: L Arm, R Arm, L Upper Leg, R Upper Leg, L Lower Leg ( including foot), R Lower Leg (including foot), Chest, Abdomen, Buttocks, Perineal Area Upper Body Dressing(FIM): 5 Lower Body Dressing(FIM): 5 Toileting(FIM): 5 Transfers (B,C,W/C) (FIM): 4 Toilet/Commode Transfer(FIM): 5 Tub Transfer(FIM): 5 Shower Transfer(FIM): 5 1=Demonstrate adherence to instructed precautions during ADL tasks. 2=Patient will verbalize/demonstrate understanding of assistive devices/ modifications for ADL. 3=Patient will improve strength/tolerance for activity to enable patient to perform ADL's. OT Cap Blocker Goals Shelter Goals Eating (FIM): 6 Eating (QC): 6 Groomin Oral Hygiene (QC): 6 Bathing(FIM): 6 Bathing Location: L Arm, R Arm, L Upper Leg, R Upper Leg, L Lower Leg ( including foot), R Lower Leg (including foot), Chest, Abdomen, Buttocks, Perineal Area Shower/Bathe Self (QC): 6 Upper Body Dressing(FIM): 6 Upper Body Dressing (QC): 6 Lower Body Dressing(FIM): 6 Lower Body Dressing (QC): 6 On/Off Footwear (QC): 6 Toileting(FIM): 6 Toileting Hygiene (QC): 6 Transfers (B,C,W/C) (FIM): 6 Toilet/Commode Transfer(FIM): 6 Toilet/Commode Transfer (QC): 6 Tub Transfer(FIM): 6 Shower Transfer(FIM): 6 Additional Goals: 1-Demonstrate ADL Tasks, 2-Verbalize Understanding, 3- ImproveStrength/Ashley 1=Demonstrate adherence to instructed precautions during ADL tasks. 2=Patient will verbalize/demonstrate understanding of assistive devices/ modifications for ADL. 3=Patient will improve strength/tolerance for activity to enable patient to perform ADL's. OT Education/Plan Problem List/Assessment Assessment: Decreased Activ Tolerance, Decreased UE Strength, Impaired Self- Care Skills, Restricted Funct UE ROM 78 year old female present to OT services secondary to frequent falls at home. pt had recently rotator cuff surgery on 01/24/19. during evaluation pt required total assist for LB dressing, total assist with UB dressing, MAX A for toileting , MIN A for sit to stands. pt presents with functional limitations affecting areas of ADLS and functional transfers with deficits in: decrease overall balance, activity tolerance/ endurance, decrease safety awareness, decrease ability to follow shoulder precautions, impaired IADLs, and decrease overall safety with functional task in sitting and standing. pt would benefit from skilled OT services to increase overall independence with ADLS and functional transfers and to address above mention deficits. Discharge Recommendations Plan/Recommendations: Continue POC Treatment Plan/Plan of Care Patient would benefit from OT for education, treatment and training to promote independence in ADL's, mobility, safety and/or upper extremity function for ADL' s. Plan of Care: ADL Retraining, Caregiver Training, Concurrent Therapy, Functional Mobility, Group Exercise/Act as Ind, Orthotic Fitting/Training, UE Funct Exercise/Act Treatment Duration: March 08, 2019 Frequency: At least 5 of 7 days/Wk (IRF) Estimated Hrs Per Day: 1.5 hours per day Agreement: Yes Rehab Potential: Guarded Time/GCodes Start Time: 08:00 Stop Time: 09:00 Total Time Billed (hr/min): 60 Billed Treatment Time 1 visit-ADL 3 (50 min) FA 1 (10 min) OMID WALSH February 21, 2019 08:38
[2019-02-21] MEDS: APIXABAN 2.5 MG (ELIQUIS) TABLET PO SCH ×2 (09:08→20:40)
[2019-02-21] MEDS: PANTOPRAZOLE 20 MG TABLET (PROTONIX) PO SCH (09:09)
[2019-02-21] MEDS: FUROSEMIDE 20 MG (LASIX) TAB PO SCH (09:09)
[2019-02-21] MEDS: FLECAINIDE 100 MG (TAMBOCOR) TAB PO SCH ×2 (09:10→20:40)
[2019-02-21] MEDS: ASPIRIN 81 MG CHEW (CHILDREN'S ASA) PO SCH (09:10)
[2019-02-21] MEDS: buPROPion SR 150 MG (WELLBUTRIN SR) TAB PO SCH ×2 (09:10→20:40)
[2019-02-21] MEDS: meTOprolol TARTRATE 25 MG (LOPRESSOR) TABLET PO SCH ×2 (09:11→20:41)
[2019-02-21] MEDS: ALPRAZolam 0.5 MG (XANAX) TAB PO SCH (09:11)
--- NOTE | 2019-02-21 09:47 | Progress Note-Cardiology ---
Cardiology SOAP Progress Note Subjective: Sitting up in bed. States she feels good this morning. No c/o palpitations, syncope or near syncope. Reports some dyspnea with exertion. Objective: I&O/Vital Signs 02/21/19 05:55 Temp 97.1 Pulse 97 Resp 16 B/P (MAP) 114/80 (91) Pulse Ox 96 O2 Delivery Room Air 02/21/19 00:00 Intake Total 1420 ml Balance 1420 ml Weight (Pounds): 148 Weight (Ounces): 0.0 Weight (Calculated Kilograms): [id number] Constitutional: AAO x 3, well-developed, well-nourished Respiratory: No accessory muscle use; lungs clear to percussion, lungs clear to auscultation Cardiovascular: irregularly irregular, S1 and S2, systolic murmur (faint DONG at card base) Gastrointestional: soft; No guarding, No rebound, No tenderness; audible bowel sounds Extremities: No clubbing, No cyanosis, No significant edema Neurologic/Psychiatric: oriented x 3, other (4/5 power bilat), grossly intact Skin: No rash on exposed areas, No ulcerations on exposed areas A/P: Assessment: Chronic persistent A Fib Mild CAD on card cath of 2016, according to the patient H/o hyperlipidemia Gen weakness, being evaluated and treated by Dr Quintanilla Plan: * Continue apixaban and statin * Monitor labs from time to time * Echo today * Trying to obtain records from [facility] EMMA BARRERA February 21, 2019 09:47
--- NOTE | 2019-02-21 11:00 | NUR ---
REQUEST FOR RECORDS SENT TO DR. JAN CRAIN, [place] . PATIENT STATES FEELING BETTER AND NO CONFUSION NOTED. LEFT ARM SLING HAS BEEN REMOVED AND PLATFORM TAKEN OFF WALKER.
--- NOTE | 2019-02-21 12:17 | Physical Therapy Daily Note ---
PT Daily Note-Current Subjective Pt reports she continues to fatigue quickly and still needs lots of rest breaks , states she never used to be that way, feels she was always on the go and didn' t get tired. Agreeable to PT session Pain Numeric Pain Scale: 0-No Pain Appearance Upon arrival, pt in bed with HOB elevated, awake and alert At end of session, pt sitting up in recliner with LE's elevated, call light, phone and bedside table within reach Mental Status Patient Orientation: Person, Place, Time, Eyes Open Transfers Therapy Code Descriptions/Definitions Functional [place] Measure: 0=Not Assessed/NA 4=Minimal Assistance 1=Total Assistance 5=Supervision or Setup 2=Maximal Assistance 6=Modified [place] 3=Moderate Assistance 7=Complete [place] Therapy Quality Codes: 6 Independent with activity with or without an assistive device 5 Patient requires set up or clean up by helper. Patient completes activity by themselves 4 Supervision or touching assist (CGA). [place] provide cues , steadying assist 3 The helper provides less than half the effort to complete the activity 2 The helper provides more than half the effort to complete the activity 1 Dependent. The helper does all the effort to complete an activity 7 Patient refused to complete or attempt activity 9 The patient did not perform the activity before the current illness or injury 88 Not attempted due to Medical conditions or safety concerns Transfers (B, C, W/C) (FIM): 5 Scootin Rollin Supine to/from Sit: 5 (supine to sit, bed flat and no use of bedrails, min effort to sit, good technique) Sit to/from Stand: 5 (able upon 1st attempt each transition) Weight Bearing Patient has rotator cuff precautions on the left shoulder Gait Training Gait (FIM): 2 Distance (FIM): 4=260-68 ft Distance: 65, 45, 100 Gait Level of Assist: 5 (verb instruction for technique and encouragement to push self a longer with gait distance) Gait Persons Needed: 1 Gait Assistive Device: FWW steady gait, instruction required to use FWW as an "accessory", to slide/push it along, but not to lean on it unless needing it to LOB. Pt demo steadiness during gait with walker, no LOB. Pt does become SOA and fatigues quickly requiring sitting rest breaks to recover Wheelchair Training Does the Pt Use a Wheelchair?: No Wheelchair Distance: 0=does not occure Exercises Standing: Step-ups (ups and downs 6" in // bars x4) Standing Reps: 10 (// bars: mini fwd, retro, left and right lateral lunges/ stepping wt shifts, toe taps each LE onto 6" step) NuStep Minutes: 10 NuStep Workload: 3 (LE's only) Treatments gait, transfers, balance, safety, functional mobility, activity tolerance, strength, education Assessment Current Status: Good Progress pt having some difficulty following instruction and or following through with instruction and demonstration at times PT Short Term Goals Short Term Goals Time Frame: February 22, 2019 Transfers (B,C,W/C) (FIM): 4 Gait (FIM): 1 Gait Distance Comment: 20' Gait Level of Assist: 4 Gait Assistive Device: FWW PT [place] Goals [place] Goals PT [facility] Goals Time Frame: March 08, 2019 Transfers (B,C,W/C) (FIM): 4 (CGA) Sit to Lying (QC): 4 Lying-Sitting on Side/Bed(QC): 4 Sit to Stand (QC): 4 Rollin Roll Left to Right (QC): 4 Chair/Qkm-ki-Uabsw Xfer(QC): 4 Car Transfer (QC): 4 Gait (FIM): 2 Distance: 50' Walk 10 feet (QC): 4 Walk 10ft-Uneven Surface(QC): 4 Walk 50ft with 2 Turns (QC): 4 Gait Level of Assist: 4 Gait Assistive Device: Cane Large Base Quad Stairs (FIM): 1 # of Steps: 1 1 Step (curb) (QC): 4 Stairs Level Of Assist: 4 PT Plan Treatment/Plan Treatment Plan: Continue Plan of Care Treatment Plan: Bed Mobility, Concurrent Therapy, Education, Functional Activity Ashley, Functional Strength, Group Therapy, Gait, Safety, Therapeutic Exercise, Transfers Treatment Duration: March 08, 2019 Frequency: At least 5 of 7 days/Wk (IRF) Estimated Hrs Per Day: 1.5 hours per day Patient and/or Family Agrees t: Yes Safety Risks/Education Patient Education: Gait Training, Transfer Techniques, Steps, Safety Issues Teaching Recipient: Patient Teaching Methods: Demonstration, Discussion Response to Teaching: Verbalize Understanding, Return Demonstration, Reinforcement Needed Time/GCodes Time In: 1000 Time Out: 1100 Total Billed Treatment Time: 60 Total Billed Treatment 1 visit, GT x1 unit, FA x1 unit, EX x2 units SANTHOSH BRAGG PTA February 21, 2019 12:17
--- NOTE | 2019-02-21 13:00 | NUR ---
ECHO WAS DONE.
--- NOTE | 2019-02-21 14:12 | Therapy Group Daily Note ---
Therapy Daily Group Note Patient Education Topic Fall Prevention, Energy Cons, Exercises Exercises LE Seated Exercise, ROM, Stretching, UE Exercise Session Ratio (pt:therapist): 4:1 Goal of Session: Education on ARU Expectations, Energy Conservation Tech., Home Safety Strategies, UE/LE Strengthing Goal Met for this Session: Yes Pt Benefit of Group: Contributions to Others, F/U Use of Strategies @Home, Increased Functional Safety, Increased Functional Strength, Improved Cognition, Recognition of Peers, Socialization Other/Notes Pt perform functional mobility to OT/PT group in ARU [facility] area. Group consisted of introductions (name, place living, favorite hobby), socialization, ARU expectations/description, and UE/LE seated exercises. Pt able to introduce self then actively listened to peers. Pt acknowledged understanding of ARU by verbalizing in affirmative. Pt demo ability to complete UE/LE seated exercises without difficulty. Using light weight dice pt demo ability to throw dice and which number it lands on was the reps the patient completed as a group. patient has to instruct the other group member of the exercise. After therapy, pt lying in bed with call light/phone in reach. All needs met in room. Start Time: 13:00 Stop Time: 14:00 Total Billed Treatment GRP 60 minutes TIANA FAGAN OT February 21, 2019 14:12
--- NOTE | 2019-02-21 14:54 | NUR ---
provided prayer and Communion.
[2019-02-21 17:37] VITALS: BP 121/77
--- NOTE | 2019-02-21 18:05 | NUR ---
Following Team Conference Meeting, SECURITIES CLERK attempted to reach patient's daughter, Ivette to discuss discharge plans, as she provided assistance for patient, when needed. SECURITIES CLERK was unable to reach daughter. SECURITIES CLERK will reattempt tomorrow
[2019-02-21] MEDS: GABAPENTIN 100 MG (NEURONTIN) CAP PO SCH (20:40)
[2019-02-21] MEDS: traZODone 50 MG (DESYREL) TAB PO SCH (20:40)
[2019-02-21] MEDS: ALPRAZolam 1 MG (XANAX) TAB PO SCH (20:40)
[2019-02-22 05:07] VITALS: BP 110/77
[2019-02-22 06:20] LABS: BASOPHILS % (AUTO) 1 % (0-10); EOSINOPHILS # (AUTO) 0.2 10^3/uL (0.0-0.3); EOSINOPHILS % (AUTO) 3 % (0-10); HEMATOCRIT 40 % (35-52); HEMOGLOBIN 12.8 G/DL (11.5-16.0); LYMPHOCYTES # (AUTO) 1.8 X 10^3 (1.0-4.0); LYMPHOCYTES % (AUTO) 33 % (12-44); MEAN CORPUSCULAR HEMOGLOBIN 32 PG (25-34); MEAN CORPUSCULAR HGB CONC 32 G/DL (32-36); MEAN CORPUSCULAR VOLUME 101 FL (80-99); MEAN PLATELET VOLUME 9.7 FL (7.4-10.4); MONOCYTES # (AUTO) 0.5 X 10^3 (0.0-1.0); MONOCYTES % (AUTO) 9 % (0-12); NEUTROPHILS # (AUTO) 3.1 X 10^3 (1.8-7.8); NEUTROPHILS % (AUTO) 55 % (42-75); PLATELET COUNT 109 10^3/uL (130-400); RED CELL DISTRIBUTION WIDTH 15.5 % (10.0-14.5); WHITE BLOOD COUNT 5.6 10^3/uL (4.3-11.0)
[2019-02-22 06:39] LABS: ALANINE AMINOTRANSFERASE 70 U/L (0-55); ALBUMIN 3.3 GM/DL (3.2-4.5); ALKALINE PHOSPHATASE 124 U/L (40-136); BILIRUBIN,TOTAL 0.9 MG/DL (0.1-1.0); BUN/CREATININE RATIO 15; CALCIUM 8.7 MG/DL (8.5-10.1); CARBON DIOXIDE 20 MMOL/L (21-32); CHLORIDE 104 MMOL/L (98-107); CREATININE SERUM 0.85 MG/DL (0.60-1.30); GFR ESTIMATED > 60; GLUCOSE 80 MG/DL (70-105); POTASSIUM 3.8 MMOL/L (3.6-5.0); SODIUM 136 MMOL/L (135-145); TOTAL PROTEIN 5.7 GM/DL (6.4-8.2)
[2019-02-22] MEDS: FERROUS SULF 325 MG (IRON) TAB PO SCH (06:39)
[2019-02-22] MEDS: LEVOTHYROXINE 25 MCG (LEVOTHROID) TAB PO SCH (06:39)
[2019-02-22] MEDS: VITAMIN D3 1,000 UNITS (CHOLECALCIFEROL) TABLET PO SCH (06:39)
[2019-02-22] MEDS: PANTOPRAZOLE 20 MG TABLET (PROTONIX) PO SCH (08:11)
[2019-02-22] MEDS: APIXABAN 2.5 MG (ELIQUIS) TABLET PO SCH ×2 (08:11→20:10)
[2019-02-22] MEDS: FLECAINIDE 100 MG (TAMBOCOR) TAB PO SCH (08:11)
[2019-02-22] MEDS: ALPRAZolam 0.5 MG (XANAX) TAB PO SCH (08:11)
[2019-02-22] MEDS: meTOprolol TARTRATE 25 MG (LOPRESSOR) TABLET PO SCH ×2 (08:11→20:10)
[2019-02-22] MEDS: buPROPion SR 150 MG (WELLBUTRIN SR) TAB PO SCH ×2 (08:11→20:10)
[2019-02-22 08:14] VITALS: BP 112/52
--- NOTE | 2019-02-22 08:21 | PM&R Progress Note ---
Subjective HPI/CC On Admission Date Seen by Provider: February 22, 2019 Time Seen by Provider: 08:30 CC: Falls with debility HPI: This is a 78yoWF [facility] Dr Jauregui at [facility] who presents to the IRF due to multiple falls and recent left shoulder surgery. Apparently she resides at home in [place] and her daughter is involved in her are. She sees Cardiology and Nephrology at [facility]. PLOF was independent. Currently I have restarted all meds and reviewed PMH. Patient denies pain currently and overall she just feels weak and is afraid to walk because she feels like she is falling. Barriers to return home independently will include improved ambulation and resumption of ADL independence. Subjective/Events-last exam Patient doing much better Liver enzymes near normal now Will take MiraLAX this afternoon No bowel movements since 02/20/19 Has vaginal discharge so we will consult Dr. MURPHY Conferred with RN Reviewed therapy notes Overall dramatically improved since admission since minimizing medications Review of Systems General: Fatigue Musculoskeletal: arm pain Anxiety Objective Exam Vital Signs Vital Signs Date Time Temp Pulse Resp B/P (MAP) Pulse Ox O2 Delivery O2 Flow Rate FiO2 02/22/19 10:50 Room Air 02/22/19 08:14 107 112/52 (72) 02/22/19 05:07 97.2 18 94 Capillary Refill : General Appearance: No Apparent Distress, WD/WN, Chronically ill HEENT: PERRL/EOMI, Normal ENT Inspection, Pharynx Normal Neck: Full Range of Motion, Normal Inspection, Non Tender, Supple Respiratory: Chest Non Tender, Lungs Clear, Normal Breath Sounds, No Accessory Muscle Use, No Respiratory Distress Cardiovascular: No Edema, No Gallop, No JVD, No Murmur, Normal Peripheral Pulses, Irregularly Irregular Gastrointestinal: Normal Bowel Sounds, No Organomegaly, No Pulsatile Mass, Non Tender, Soft Back: Normal Inspection, No CVA Tenderness, No Vertebral Tenderness Extremity: Normal Capillary Refill, Normal Inspection, Normal Range of Motion, Non Tender, No Calf Tenderness Neurologic/Psychiatric: Alert, Oriented x3, No Motor/Sensory Deficits, sole painter II- XII Norm as Tested, Depressed Affect, Motor Weakness (generalized weakness 4/5 all extremities), Other (anxious) Skin: Normal Color, Warm/Dry Lymphatic: No Adenopathy Results/Procedures Lab Laboratory Tests 02/22/19 06:08 Patient resulted labs reviewed. FIM Transfers Therapy Code Descriptions/Definitions Functional [place] Measure: 0=Not Assessed/NA 4=Minimal Assistance 1=Total Assistance 5=Supervision or Setup 2=Maximal Assistance 6=Modified [place] 3=Moderate Assistance 7=Complete [place] Therapy Quality Codes: 6 Independent with activity with or without an assistive device 5 Patient requires set up or clean up by helper. Patient completes activity by themselves 4 Supervision or touching assist (CGA). [place] provide cues , steadying assist 3 The helper provides less than half the effort to complete the activity 2 The helper provides more than half the effort to complete the activity 1 Dependent. The helper does all the effort to complete an activity 7 Patient refused to complete or attempt activity 9 The patient did not perform the activity before the current illness or injury 88 Not attempted due to Medical conditions or safety concerns Mental Status/Objective Comprehension: 7 Expression: 7 Social Interaction: 7 Problem Solvin Memory: 6 ADL-Treatment Feedin (Pt needed lower table so that she could use her L hand as a helper for eating. Setup needed for some items - she may need some foods cut up if they are tough. Used fork to open drink can. Able to get food to her mouth and get a drink, using R hand. Supervision) Eating (QC): 4 (supervision) Groomin (Sitting at sink, pt able to complete by self.) Oral Hygiene (QC): 6 Bathin (Using grabbars, hand held shower and shower bench pt able to complete own shower. LOB after missing grabbar to steady self in sitting, assist needed to right.) Bathing Location: L Arm, R Arm, L Upper Leg, R Upper Leg, L Lower Leg ( including foot), R Lower Leg (including foot), Chest, Abdomen, Buttocks, Perineal Area Shower/Bathe Self (QC): 4 Upper Extremity Dressin (After set up, pt able to complete by self.) Upper Body Dressing (QC): 5 Lower Extremity Dressin (After set up, pt able to complete by self. SBA in standing for safety.) Lower Body Dressing (QC): 4 On/Off Footwear (QC): 5 Toiletin (Help to get pants up and down but able to wipe with verbal cues for problem solving. Min assist to maintain balance while managing clothing. Used grab bar on R side of toilet. Platform walker. ) Toileting Hygiene (QC): 2 Toilet/Commode Transfer: 4 (Min to CGA assist to get on/off tall toilet, using grab bar. ) Toilet Transfer (QC): 3 Shower: 5 (Close SBA using FWW, grabbar and shower bench.) Assessment/Plan Assessment and Plan Assess & Plan/Chief Complaint Assessment: Falls Debility Recent shoulder surgery left Bipolar d/o? Anxiety Chronic pain Neuropathy Chronic constipation CRI AF Elevated LFT's improved with decreased Tylenol dosing and holding statin and other meds Overuse of meds now much improved Drowsiness resolved since minimizing meds Hyponatremia Plan: IRF protocol Home meds Check labs Cardiology consultation for cardiac management while hospitalized is appreciated Hold statin until sees PCP at [place] Minimize Tylenol Minimize all sedating meds Minimize water intake due to mild hyponatremia and patient appears to be high risk for psychogenic polydipsia sodium level now normal Xanax dosing as per PCP Check labs in am 02/22/19 (1) Debility (2) Thrombocytopenia (3) Overuse of medication (4) Drowsiness (5) Atrial fibrillation (6) Anticoagulated (7) Elevated liver enzymes (8) Fall on same level (9) Falls (10) Weakness (11) Bipolar 1 disorder (12) Hyponatremia (13) Insomnia (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
--- NOTE | 2019-02-22 08:29 | Occupational Ther Daily Note ---
OT Current Status-Daily Note Subjective Pt alert, sitting in recliner. Pt agrees to therapy. No c/o pain at this time. Mental Status/Objective Patient Orientation: Person, Place, Time, Situation Therapy Code Descriptions/Definitions Functional [place] Measure: 0=Not Assessed/NA 4=Minimal Assistance 1=Total Assistance 5=Supervision or Setup 2=Maximal Assistance 6=Modified [place] 3=Moderate Assistance 7=Complete [place] ADL-Treatment Pt declines shower though requests sponge bath at sink. Pt takes increased time to complete tasks due to decreased activity tolerance and multiple recovery breaks. After set up, pt able to complete sponge bath with supervision for safety sitting at sink. After set up, pt completes dressing with supervision. Grooming sitting at sink, mod I. After therapy, pt sitting in recliner with call light/phone in reach. All needs met in room. Therapy Code Descriptions/Definitions Functional [place] Measure: 0=Not Assessed/NA 4=Minimal Assistance 1=Total Assistance 5=Supervision or Setup 2=Maximal Assistance 6=Modified [place] 3=Moderate Assistance 7=Complete [place] Therapy Quality Codes: 6 Independent with activity with or without an assistive device 5 Patient requires set up or clean up by helper. Patient completes activity by themselves 4 Supervision or touching assist (CGA). [place] provide cues , steadying assist 3 The helper provides less than half the effort to complete the activity 2 The helper provides more than half the effort to complete the activity 1 Dependent. The helper does all the effort to complete an activity 7 Patient refused to complete or attempt activity 9 The patient did not perform the activity before the current illness or injury 88 Not attempted due to Medical conditions or safety concerns Grooming (FIM): 6 Oral Hygiene (QC): 6 Bathing (FIM): 5 Bathing Location: L Arm, R Arm, L Upper Leg, R Upper Leg, L Lower Leg ( including foot), R Lower Leg (including foot), Chest, Abdomen, Buttocks, Perineal Area Shower/Bathe Self (QC): 4 Upper Body (FIM): 5 Upper Body Dressing (QC): 5 Lower Body Dressing (FIM): 5 Lower Body Dressing (QC): 4 On/Off Footwear (QC): 5 Transfers (B, C, W/C) (FIM): 5 OT Short Term Goals Short Term Goals Eating(FIM): 6 Grooming(FIM): 5 Bathing(FIM): 5 Bathing Location: L Arm, R Arm, L Upper Leg, R Upper Leg, L Lower Leg ( including foot), R Lower Leg (including foot), Chest, Abdomen, Buttocks, Perineal Area Upper Body Dressing(FIM): 5 Lower Body Dressing(FIM): 5 Toileting(FIM): 5 Transfers (B,C,W/C) (FIM): 4 Toilet/Commode Transfer(FIM): 5 Tub Transfer(FIM): 5 Shower Transfer(FIM): 5 1=Demonstrate adherence to instructed precautions during ADL tasks. 2=Patient will verbalize/demonstrate understanding of assistive devices/ modifications for ADL. 3=Patient will improve strength/tolerance for activity to enable patient to perform ADL's. OT Plastics Worker Goals Plastics Worker Goals Eating (FIM): 6 Eating (QC): 6 Groomin Oral Hygiene (QC): 6 Bathing(FIM): 6 Bathing Location: L Arm, R Arm, L Upper Leg, R Upper Leg, L Lower Leg ( including foot), R Lower Leg (including foot), Chest, Abdomen, Buttocks, Perineal Area Shower/Bathe Self (QC): 6 Upper Body Dressing(FIM): 6 Upper Body Dressing (QC): 6 Lower Body Dressing(FIM): 6 Lower Body Dressing (QC): 6 On/Off Footwear (QC): 6 Toileting(FIM): 6 Toileting Hygiene (QC): 6 Transfers (B,C,W/C) (FIM): 6 Toilet/Commode Transfer(FIM): 6 Toilet/Commode Transfer (QC): 6 Tub Transfer(FIM): 6 Shower Transfer(FIM): 6 Additional Goals: 1-Demonstrate ADL Tasks, 2-Verbalize Understanding, 3- ImproveStrength/Ashley 1=Demonstrate adherence to instructed precautions during ADL tasks. 2=Patient will verbalize/demonstrate understanding of assistive devices/ modifications for ADL. 3=Patient will improve strength/tolerance for activity to enable patient to perform ADL's. OT Education/Plan Problem List/Assessment Assessment: Decreased Activ Tolerance, Impaired Funct Balance, Impaired Self- Care Skills 78 year old female present to OT services secondary to frequent falls at home. pt had recently rotator cuff surgery on 01/24/19. during evaluation pt required total assist for LB dressing, total assist with UB dressing, MAX A for toileting , MIN A for sit to stands. pt presents with functional limitations affecting areas of ADLS and functional transfers with deficits in: decrease overall balance, activity tolerance/ endurance, decrease safety awareness, decrease ability to follow shoulder precautions, impaired IADLs, and decrease overall safety with functional task in sitting and standing. pt would benefit from skilled OT services to increase overall independence with ADLS and functional transfers and to address above mention deficits. Discharge Recommendations Plan/Recommendations: Continue POC Treatment Plan/Plan of Care Patient would benefit from OT for education, treatment and training to promote independence in ADL's, mobility, safety and/or upper extremity function for ADL' s. Plan of Care: ADL Retraining, Caregiver Training, Concurrent Therapy, Functional Mobility, Group Exercise/Act as Ind, Orthotic Fitting/Training, UE Funct Exercise/Act Treatment Duration: March 08, 2019 Frequency: At least 5 of 7 days/Wk (IRF) Estimated Hrs Per Day: 1.5 hours per day Agreement: Yes Rehab Potential: Guarded Time/GCodes Start Time: 08:00 Stop Time: 09:00 Total Time Billed (hr/min): 60 Billed Treatment Time 1 visit-ADL 4 (60 min) OMID WALSH February 22, 2019 08:29
--- NOTE | 2019-02-22 09:00 | NUR ---
WHIPPER BEATER met with patient to review team conference summary. As patient is performing transfers and ADLs with supervision and able to ambulate short distances; however, she is limited by fatigue and balance deficits, team has recommended discharge not occur until 03/01. Within this weeks timeframe therapy is hopeful that patient will reach and mod I with all activities as she resides home alone. WHIPPER BEATER reviewed recommendation of home health; however, patient prefers outpatient therapy at [facility] ([place] as she was previously not satisfied with home health services. WHIPPER BEATER will discuss safety of outpatient therapy with staff. Patient is agreeable to discharge date of 03/01
--- NOTE | 2019-02-22 11:11 | Consultation ---
History of Present Illness History of Present Illness Patient Consulted On(garcia/time) 02/22/19 10:55 Date Seen by Provider: February 22, 2019 Time Seen by Provider: 10:56 History of Present Illness Patient here and admitted to inpatient rehab. She spoke with Dr. Quintanilla today and had mentioned vaginal discharge. I was consulted for evaluation. Upon speaking with the patient she reports that it has been going on for several years, and she has never mentioned it because it comes and goes, she denies any postmenopausal bleeding, denies pelvic pressure or pain, nor any concerns with vaginal prolapse. Allergies and Home Medications Allergies Coded Allergies: morphine (Verified Adverse Reaction, Mild, N/V, 01/22/19) Uncoded Allergies: TAPE (Allergy, Mild, RASH, 01/22/19) Home Medications Acetaminophen 500 Mg Tablet, 1,000 MG PO Q6H PRN for PAIN-MILD, (Reported) TAKES 2 (500MG) TABLETS Alprazolam 1 Mg Tablet, 1.5 MG PO BID, (Reported) TAKES 1 & 1/2 (1MG) TABLET Apixaban 2.5 Mg Tablet, 2.5 MG PO BID, (Reported) Aspirin 81 Mg Tablet.dr, 81 MG PO MoWeFr, (Reported) Bupropion HCl 150 Mg Tablet.er, 150 MG PO BID, (Reported) Cholecalciferol (Vitamin D3) 1,000 Unit Capsule, 1,000 UNIT PO DAILY, (Reported) Ferrous Sulfate 325 Mg Tablet, 325 MG PO DAILY, (Reported) Flecainide Acetate 50 Mg Tablet, 50 MG PO BID, (Reported) Furosemide 20 Mg Tablet, 10 MG PO Q48H, (Reported) TAKES 1/2 (20MG) TABLET Gabapentin 300 Mg Capsule, 300 MG PO HS, (Reported) Levothyroxine Sodium 25 Mcg Tablet, 25 MCG PO DAILY, (Reported) Metoprolol Tartrate 25 Mg Tablet, 25 MG PO BID, (Reported) Omeprazole 20 Mg Capsule.dr, 20 MG PO DAILY, (Reported) Polyethylene Glycol 3350 17 Gm Powd.pack, 17 GM PO DAILY PRN for CONSTIPATION- 2ND LINE, (Reported) Pravastatin Sodium 40 Mg Tablet, 40 MG PO HS, (Reported) Tramadol HCl 50 Mg Tablet, 50 MG PO Q6H PRN for PAIN-MODERATE, (Reported) Trazodone HCl 100 Mg Tablet, 100 MG PO HS, (Reported) Patient Home Medication List Home Medication List Reviewed: Yes Past Cqfnzfv-Etmopp-Sweiet Hx Past Med/Social Hx: Reviewed Nursing Past Med/Soc Hx, Reviewed and Corrections made Patient Social History Alcohol Use: Denies Use Recreational Drug Use: No Smoking Status: Never a Smoker 2nd Hand Smoke Exposure: No Recent Foreign Travel: No Contact w/Someone Who Travel: No Recent Infectious Disease Expo: No Recent Hopitalizations: No (LEFT ROTATOR CUFF SURGERY 4-19) Immunizations Up To Date Tetanus Booster (TDap): Unknown PED Vaccines UTD: Yes Date of Pneumonia Vaccine: Aug 01, 2017 Date of Influenza Vaccine: Jul 31, 2018 Seasonal Allergies Seasonal Allergies: No Past Medical History Surgeries: Yes (RTH, KNEE,HEART CATH, BREAST BIOPSY, R RCR, LAP JEEVAN, KNEE CAP, ANKLE) Appendectomy, Breast, Gallbladder, Joint Replacement, Oophorectomy, Orthopedic, Tonsillectomy, Tubal Ligation Respiratory: No Currently Using CPAP: No Currently Using BIPAP: No Cardiac: Yes Atrial Fibrillation, High Cholesterol, Hypertension Neurological: No Neuropathy Reproductive Disorders: No Sexually Transmitted Disease: No HIV/AIDS: No Genitourinary: No Gastrointestinal: Yes Gastroesophageal Reflux, Chronic Constipation, Hiatal Hernia Musculoskeletal: Yes Arthritis, Chronic Back Pain, Fractures Endocrine: Yes Hypothyroidsim HEENT: Yes (GLASSES, DENTURES) Loss of Vision: Bilateral Hearing Impairment: Denies Cancer: No Psychosocial: Yes Anxiety, Bipolar, Depression Integumentary: No Blood Disorders: Yes (POST OP ANEMIA) Adverse Reaction/Blood Tranf: No (HAS HAD BLOOD WITH NO REACTION) Family Medical History FH: stroke 19 FATHER G8 SISTER Myocardial infarction 19 FATHER G8 BROTHER G8 BROTHER CAD Over 55 Years Old, Stroke Review of Systems-General Constitutional: see HPI EENTM: see HPI Respiratory: see HPI Cardiovascular: see HPI Gastrointestinal: see HPI Genitourinary: see HPI : No Musculoskeletal: see HPI Skin: see HPI Psychiatric/Neurological: See HPI All Other Systems Reviewed Negative Unless Noted: Yes Physical Exam-General Problems Physical Exam Vital Signs Vital Signs - First Documented 02/16/19 04:52 Temp 98.2 Pulse 100 Resp 16 B/P (MAP) 115/77 (90) Pulse Ox 93 O2 Delivery Room Air Capillary Refill : General Appearance: WD/WN, no apparent distress HEENT: PERRL/EOMI Neurologic/Psychiatric: normal mood/affect, oriented x 3 Comments Ecchymoses of the posterior thigh consistent with recent fall. Scant vaginal discharge, swab collected. Age appropriate vaginal atrophy and atrophy of the external female genitialia Assessment/Plan Assessment/Plan Admission Diagnosis/Plan Diagnosis: Postmenopausal transient discharge P: Vaginal swab taken, discussed with the patient possibility of orion congestion with compromised hepatic function and the possible increase in vaginal discharge from orion congestion, or other physiologic reasons. Will follow up with patient inpatient if further treatment is required, awaiting vaginal culture Admission Status: Inpatient Order (span 2 midnights) Reason for Inpatient Admission: Inpatient rehab Clinical Quality Measures DVT/VTE Risk/Contraindication: Risk Factor Score Per Nursin RFS Level Per Nursing on Admit: 4+=Very High SARA MURPHY DO February 22, 2019 11:11
--- NOTE | 2019-02-22 11:11 | NUR ---
Dr. Shanks here to see patient. Genital culture sent to lab.
--- NOTE | 2019-02-22 11:37 | Physical Therapy Daily Note ---
PT Daily Note-Current Subjective Eliz lives at [facility]. Doesn't drive. MOW. 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 Admits walking and tasks have become more tiring. But she hopes to be able to return to volunteering at some point. Reports longstanding occasional R hip pain Pain Comment: R hip 1-2/ soreness after using NuStep today. Mental Status Patient Orientation: Person, Time, Situation Dry mouth - words a little slurry at times. Transfers Therapy Code Descriptions/Definitions Functional [place] Measure: 0=Not Assessed/NA 4=Minimal Assistance 1=Total Assistance 5=Supervision or Setup 2=Maximal Assistance 6=Modified [place] 3=Moderate Assistance 7=Complete [place] Therapy Quality Codes: 6 Independent with activity with or without an assistive device 5 Patient requires set up or clean up by helper. Patient completes activity by themselves 4 Supervision or touching assist (CGA). [place] provide cues , steadying assist 3 The helper provides less than half the effort to complete the activity 2 The helper provides more than half the effort to complete the activity 1 Dependent. The helper does all the effort to complete an activity 7 Patient refused to complete or attempt activity 9 The patient did not perform the activity before the current illness or injury 88 Not attempted due to Medical conditions or safety concerns SBA transfer from chair, bed and NuStep. Weight Bearing Patient has rotator cuff precautions on the left shoulder Gait Training Gait (FIM): 5 Distance: 200 ft Gait Assistive Device: FWW Due to wearing shoes with 1" sole I raised her FWW. Amb with good step length but there is an uneveness in her gait pattern possibly due to leg length discrepancy, R hip discomfort. SOB when amb > 150 ft although O2 sats are above 97%. Exercises Supine Ex: Ankle pumps, Heel Slides, Knee to chest, Hip abd/add NuStep Minutes: 10 NuStep Workload: 3 Neuromuscular Static standing balance ex. Eyes closed 10 sec - OK. Less stable with narrow JANEL. Assessment Current Status: Good Progress Fatigues with amb with FWW - would not be able to walk long enough to return to volunteer job at this time. PT Short Term Goals Short Term Goals Time Frame: February 22, 2019 Transfers (B,C,W/C) (FIM): 4 Gait (FIM): 1 Gait Distance Comment: 20' Gait Level of Assist: 4 Gait Assistive Device: FWW PT Roentgenology Teacher Goals Shelter Goals PT Shelter Goals Time Frame: March 08, 2019 Transfers (B,C,W/C) (FIM): 4 (CGA) Sit to Lying (QC): 4 Lying-Sitting on Side/Bed(QC): 4 Sit to Stand (QC): 4 Rollin Roll Left to Right (QC): 4 Chair/Hev-ni-Scqzj Xfer(QC): 4 Car Transfer (QC): 4 Gait (FIM): 2 Distance: 50' Walk 10 feet (QC): 4 Walk 10ft-Uneven Surface(QC): 4 Walk 50ft with 2 Turns (QC): 4 Gait Level of Assist: 4 Gait Assistive Device: Cane Large Base Quad Stairs (FIM): 1 # of Steps: 1 1 Step (curb) (QC): 4 Stairs Level Of Assist: 4 PT Plan Treatment/Plan Treatment Plan: Continue Plan of Care Treatment Plan: Bed Mobility, Concurrent Therapy, Education, Functional Activity Ashley, Functional Strength, Group Therapy, Gait, Safety, Therapeutic Exercise, Transfers Treatment Duration: March 08, 2019 Frequency: At least 5 of 7 days/Wk (IRF) Estimated Hrs Per Day: 1.5 hours per day Patient and/or Family Agrees t: Yes Time/GCodes Time In: 915 Time Out: 1015 Total Billed Treatment Time: 60 Total Billed Treatment 1, gx2 30 min, ex x2 30 min MARLI VILLEDA PT February 22, 2019 11:37
--- NOTE | 2019-02-22 11:58 | Occupational Ther Daily Note ---
OT Current Status-Daily Note Subjective Pt alert, lying in bed. Pt agrees to therapy. No c/o pain. Mental Status/Objective Patient Orientation: Person, Place, Time, Situation Therapy Code Descriptions/Definitions Functional [place] Measure: 0=Not Assessed/NA 4=Minimal Assistance 1=Total Assistance 5=Supervision or Setup 2=Maximal Assistance 6=Modified [place] 3=Moderate Assistance 7=Complete [place] ADL-Treatment Pt had just ordered lunch. Lunch came while pt still in bed. With HOB raised pt able to go from supine to sitting by self. Pt transferred from bed to recliner using FWW with supervision for safety. Pt able to open containers/ packages by self then use regular utensils to eat with. Pt became SOA while eating lunch and took recovery breaks throughout session. After therapy, pt sitting in recliner with call light/phone in reach. All needs met in room. Therapy Code Descriptions/Definitions Functional [place] Measure: 0=Not Assessed/NA 4=Minimal Assistance 1=Total Assistance 5=Supervision or Setup 2=Maximal Assistance 6=Modified [place] 3=Moderate Assistance 7=Complete [place] Therapy Quality Codes: 6 Independent with activity with or without an assistive device 5 Patient requires set up or clean up by helper. Patient completes activity by themselves 4 Supervision or touching assist (CGA). [place] provide cues , steadying assist 3 The helper provides less than half the effort to complete the activity 2 The helper provides more than half the effort to complete the activity 1 Dependent. The helper does all the effort to complete an activity 7 Patient refused to complete or attempt activity 9 The patient did not perform the activity before the current illness or injury 88 Not attempted due to Medical conditions or safety concerns Eating (FIM): 6 (Dentures.) Eating (QC): 6 Transfers (B, C, W/C) (FIM): 5 (Supervision for safety.) OT Short Term Goals Short Term Goals Eating(FIM): 6 Grooming(FIM): 5 Bathing(FIM): 5 Bathing Location: L Arm, R Arm, L Upper Leg, R Upper Leg, L Lower Leg ( including foot), R Lower Leg (including foot), Chest, Abdomen, Buttocks, Perineal Area Upper Body Dressing(FIM): 5 Lower Body Dressing(FIM): 5 Toileting(FIM): 5 Transfers (B,C,W/C) (FIM): 4 Toilet/Commode Transfer(FIM): 5 Tub Transfer(FIM): 5 Shower Transfer(FIM): 5 1=Demonstrate adherence to instructed precautions during ADL tasks. 2=Patient will verbalize/demonstrate understanding of assistive devices/ modifications for ADL. 3=Patient will improve strength/tolerance for activity to enable patient to perform ADL's. OT Job Putter Up And Ticket Preparer Goals Job Putter Up And Ticket Preparer Goals Eating (FIM): 6 Eating (QC): 6 Groomin Oral Hygiene (QC): 6 Bathing(FIM): 6 Bathing Location: L Arm, R Arm, L Upper Leg, R Upper Leg, L Lower Leg ( including foot), R Lower Leg (including foot), Chest, Abdomen, Buttocks, Perineal Area Shower/Bathe Self (QC): 6 Upper Body Dressing(FIM): 6 Upper Body Dressing (QC): 6 Lower Body Dressing(FIM): 6 Lower Body Dressing (QC): 6 On/Off Footwear (QC): 6 Toileting(FIM): 6 Toileting Hygiene (QC): 6 Transfers (B,C,W/C) (FIM): 6 Toilet/Commode Transfer(FIM): 6 Toilet/Commode Transfer (QC): 6 Tub Transfer(FIM): 6 Shower Transfer(FIM): 6 Additional Goals: 1-Demonstrate ADL Tasks, 2-Verbalize Understanding, 3- ImproveStrength/Ashley 1=Demonstrate adherence to instructed precautions during ADL tasks. 2=Patient will verbalize/demonstrate understanding of assistive devices/ modifications for ADL. 3=Patient will improve strength/tolerance for activity to enable patient to perform ADL's. OT Education/Plan Problem List/Assessment Assessment: Decreased Activ Tolerance, Impaired Self-Care Skills, Restricted Funct UE ROM 78 year old female present to OT services secondary to frequent falls at home. pt had recently rotator cuff surgery on 01/24/19. during evaluation pt required total assist for LB dressing, total assist with UB dressing, MAX A for toileting , MIN A for sit to stands. pt presents with functional limitations affecting areas of ADLS and functional transfers with deficits in: decrease overall balance, activity tolerance/ endurance, decrease safety awareness, decrease ability to follow shoulder precautions, impaired IADLs, and decrease overall safety with functional task in sitting and standing. pt would benefit from skilled OT services to increase overall independence with ADLS and functional transfers and to address above mention deficits. Discharge Recommendations Plan/Recommendations: Continue POC Treatment Plan/Plan of Care Patient would benefit from OT for education, treatment and training to promote independence in ADL's, mobility, safety and/or upper extremity function for ADL' s. Plan of Care: ADL Retraining, Caregiver Training, Concurrent Therapy, Functional Mobility, Group Exercise/Act as Ind, Orthotic Fitting/Training, UE Funct Exercise/Act Treatment Duration: March 08, 2019 Frequency: At least 5 of 7 days/Wk (IRF) Estimated Hrs Per Day: 1.5 hours per day Agreement: Yes Rehab Potential: Guarded Time/GCodes Start Time: 11:45 Stop Time: 12:15 Total Time Billed (hr/min): 30 Billed Treatment Time 1 visit-ADL 2 (30 min) OMID WALSH February 22, 2019 11:58
--- NOTE | 2019-02-22 14:20 | Physical Therapy Daily Note ---
PT Daily Note-Current Subjective Agrees to PT. Reports she feels she is getting stronge.r Transfers Therapy Code Descriptions/Definitions Functional [place] Measure: 0=Not Assessed/NA 4=Minimal Assistance 1=Total Assistance 5=Supervision or Setup 2=Maximal Assistance 6=Modified [place] 3=Moderate Assistance 7=Complete [place] Therapy Quality Codes: 6 Independent with activity with or without an assistive device 5 Patient requires set up or clean up by helper. Patient completes activity by themselves 4 Supervision or touching assist (CGA). [place] provide cues , steadying assist 3 The helper provides less than half the effort to complete the activity 2 The helper provides more than half the effort to complete the activity 1 Dependent. The helper does all the effort to complete an activity 7 Patient refused to complete or attempt activity 9 The patient did not perform the activity before the current illness or injury 88 Not attempted due to Medical conditions or safety concerns Weight Bearing Patient has rotator cuff precautions on the left shoulder Treatments Pt able to perform sit to stand transfers with sBA; pt ambulated x 150 ft x 2 with FWW with SBA; nu step x 15 minutes on level 2 to promote LE strength for improved transfers and gait toelrance; pt able to transfer sit to supine with SBA. Pt in bed post treatment with needs met. Assessment Current Status: Good Progress Transfers and gait improving. PT Short Term Goals Short Term Goals Time Frame: February 22, 2019 Transfers (B,C,W/C) (FIM): 4 (met) Gait (FIM): 1 (met) Gait Distance Comment: 20' Gait Level of Assist: 4 Gait Assistive Device: FWW PT Correction Goals Correction Goals PT Correction Goals Time Frame: March 08, 2019 Transfers (B,C,W/C) (FIM): 4 (CGA) Sit to Lying (QC): 4 Lying-Sitting on Side/Bed(QC): 4 Sit to Stand (QC): 4 Rollin Roll Left to Right (QC): 4 Chair/Txb-td-Vymqx Xfer(QC): 4 Car Transfer (QC): 4 Gait (FIM): 2 Distance: 50' Walk 10 feet (QC): 4 Walk 10ft-Uneven Surface(QC): 4 Walk 50ft with 2 Turns (QC): 4 Gait Level of Assist: 4 Gait Assistive Device: Cane Large Base Quad Stairs (FIM): 1 # of Steps: 1 1 Step (curb) (QC): 4 Stairs Level Of Assist: 4 PT Plan Problem List Problem List: Activity Tolerance, Functional Strength, Safety, Balance, Gait, Transfer, Bed Mobility Treatment/Plan Treatment Plan: Continue Plan of Care Treatment Plan: Bed Mobility, Concurrent Therapy, Education, Functional Activity Ashley, Functional Strength, Group Therapy, Gait, Safety, Therapeutic Exercise, Transfers Treatment Duration: March 08, 2019 Frequency: At least 5 of 7 days/Wk (IRF) Estimated Hrs Per Day: 1.5 hours per day Patient and/or Family Agrees t: Yes Safety Risks/Education Patient Education: Transfer Techniques, Safety Issues Teaching Recipient: Patient Teaching Methods: Discussion Response to Teaching: Return Demonstration Discharge Recommendations Therapy D/C Recommendations: Physical Therapy Home Care Time/GCodes Time In: 1300 Time Out: 1330 Total Billed Treatment Time: 30 Total Billed Treatment visit EX 15 GT 15 OMID FARRELL PT February 22, 2019 14:19
--- NOTE | 2019-02-22 15:33 | NUR ---
Patient requesting AM Xanax at 1000 instead of 0900.
[2019-02-22 15:52] VITALS: BP 110/78
--- NOTE | 2019-02-22 19:04 | Progress Note-Cardiology ---
Cardiology SOAP Progress Note Subjective: Exertional shortness of breath Gen malaise and weakness No cp or palp or syncope Objective: I&O/Vital Signs 02/22/19 02/22/19 02/22/19 08:14 10:50 15:52 Temp 97.6 Pulse 107 80 Resp 16 B/P (MAP) 112/52 (72) 110/78 (89) Pulse Ox 97 O2 Delivery Room Air Room Air 02/22/19 00:00 Intake Total 810 ml Balance 810 ml Weight (Pounds): 148 Weight (Ounces): 0.0 Weight (Calculated Kilograms): 67.624952 Constitutional: AAO x 3, well-developed, well-nourished Respiratory: No accessory muscle use; lungs clear to percussion, lungs clear to auscultation Cardiovascular: irregularly irregular, S1 and S2, systolic murmur (faint DONG at card base) Gastrointestional: soft; No guarding, No rebound, No tenderness; audible bowel sounds Extremities: No clubbing, No cyanosis, No significant edema Neurologic/Psychiatric: oriented x 3, other (4/5 power bilat), grossly intact Skin: No rash on exposed areas, No ulcerations on exposed areas Results/Procedures: Labs Laboratory Tests 02/22/19 06:08: White Blood Count 5.6, Red Blood Count 4.00L, Hemoglobin 12.8, Hematocrit 40, Mean Corpuscular Volume 101H, Mean Corpuscular Hemoglobin 32, Mean Corpuscular Hemoglobin Concent 32, Red Cell Distribution Width 15.5H, Platelet Count 109L, Mean Platelet Volume 9.7, Neutrophils (%) (Auto) 55, Lymphocytes (%) (Auto) 33, Monocytes (%) (Auto) 9, Eosinophils (%) (Auto) 3, Basophils (%) (Auto) 1, Neutrophils # (Auto) 3.1, Lymphocytes # (Auto) 1.8, Monocytes # (Auto) 0.5, Eosinophils # (Auto) 0.2, Basophils # (Auto) 0.0, Sodium Level 136, Potassium Level 3.8, Chloride Level 104, Carbon Dioxide Level 20L, Anion Gap 12, Blood Urea Nitrogen 13, Creatinine 0.85, Estimat Glomerular Filtration Rate > 60, BUN/ Creatinine Ratio 15, Glucose Level 80, Calcium Level 8.7, Corrected Calcium 9.3 , Total Bilirubin 0.9, Aspartate Amino Transf (AST/SGOT) 37H, Alanine Aminotransferase (ALT/SGPT) 70H, Alkaline Phosphatase 124, Total Protein 5.7L, Albumin 3.3 Laboratory Tests 02/22/19 06:08 A/P: Assessment: Chronic persistent A Fib Ac on chronic systolic CHF Mild to mod cardiomyopathy, probably ischemic. Echo of 02/21/19: LVEF 40-45%, anteroseptal hypokinesis to akinesis, biatrial enlargement, mod to sev MR, sev TR, PASP 25-30 mmHg Mild CAD on card cath of 2016, according to the patient H/o hyperlipidemia Gen weakness, being evaluated and treated by Dr Quintanilla Plan: * Continue apixaban and statin * Increase diuretics * Add RODNEY-inhib, if tolerated by bp * Monitor labs from time to time MOHINI VELASQUEZ MD FACP [facility] February 22, 2019 19:03
[2019-02-22] MEDS: ALPRAZolam 1 MG (XANAX) TAB PO SCH (20:10)
[2019-02-22] MEDS: traZODone 50 MG (DESYREL) TAB PO SCH (20:10)
[2019-02-22] MEDS: GABAPENTIN 100 MG (NEURONTIN) CAP PO SCH (20:10)
[2019-02-22] MEDS: POLYETHYLENE GLYCOL 17 GM (MIRALAX) PACK PO PRN (20:13)
[2019-02-22 20:15] LABS: CALCIUM 9.3 MG/DL (8.5-10.1); CREATININE SERUM 1.08 MG/DL (0.60-1.30); MAGNESIUM 1.9 MG/DL (1.8-2.4); POTASSIUM 5.4 MMOL/L (3.6-5.0)
[2019-02-23 05:58] VITALS: BP 109/72
[2019-02-23] MEDS: LEVOTHYROXINE 25 MCG (LEVOTHROID) TAB PO SCH (06:02)
[2019-02-23] MEDS: FERROUS SULF 325 MG (IRON) TAB PO SCH (06:02)
[2019-02-23] MEDS: VITAMIN D3 1,000 UNITS (CHOLECALCIFEROL) TABLET PO SCH (06:02)
[2019-02-23 08:00] VITALS: BP 107/72
--- NOTE | 2019-02-23 08:00 | NUR ---
DENIES PAIN. NO CONFUSION NOTED. PLEASANT AND COOPERATIVE. COMPLAINING OF INCREASED PAIN IN LEFT UPPER, LATERAL LEG/HIP AREA FROM PREVIOUS FALL. AREA IS SWOLLEN. STATES PAIN WORSENED WHEN HAD TO LAY ON LEFT SIDE FOR ECHO. DR. ISAAC NOTIFIED. ORDER RECEIVED FOR KPAD. OT ALSO TRYING ICE PACK PRN. SOB NOTED WITH EXERTION, BUT PATIENT STATES SHE IS AT HER BASELINE. HOLDING ON GIVING ALDACTONE DUE TO POTASSIUM 5.4. LABS TO BE REPEATED THIS AM.
--- NOTE | 2019-02-23 08:44 | PM&R Progress Note ---
Subjective HPI/CC On Admission Date Seen by Provider: February 23, 2019 Time Seen by Provider: 08:30 CC: Falls with debility HPI: This is a 78yoWF of Dr Jauregui at [facility] who presents to the IRF due to multiple falls and recent left shoulder surgery. Apparently she resides at home in [place] and her daughter is involved in her are. She sees Cardiology and Nephrology at [facility]. PLOF was independent. Currently I have restarted all meds and reviewed PMH. Patient denies pain currently and overall she just feels weak and is afraid to walk because she feels like she is falling. Barriers to return home independently will include improved ambulation and resumption of ADL independence. Subjective/Events-last exam Patient doing much better and participating in all therapy and really feels like she is making progress Liver enzymes near normal now on yesterday's labs Took MiraLAX yesterday and her bowels are starting to move Has vaginal discharge so we consulted Dr. MURPHY who performed vaginal swab and will follow up on the results from that Conferred with RN Reviewed therapy notes Overall dramatically improved since admission since minimizing medications Pleased with her strength Review of Systems General: Fatigue Musculoskeletal: arm pain Neurological: Weakness, Numbness, Incoordination Anxiety Objective Exam Vital Signs Vital Signs Date Time Temp Pulse Resp B/P (MAP) Pulse Ox O2 Delivery O2 Flow Rate FiO2 02/23/19 08:00 71 107/72 (84) 02/23/19 05:58 97.1 20 96 Room Air Capillary Refill : General Appearance: No Apparent Distress, WD/WN, Chronically ill HEENT: PERRL/EOMI, Normal ENT Inspection, Pharynx Normal Neck: Full Range of Motion, Normal Inspection, Non Tender, Supple Respiratory: Chest Non Tender, Lungs Clear, Normal Breath Sounds, No Accessory Muscle Use, No Respiratory Distress Cardiovascular: No Edema, No Gallop, No JVD, No Murmur, Normal Peripheral Pulses, Irregularly Irregular Gastrointestinal: Normal Bowel Sounds, No Organomegaly, No Pulsatile Mass, Non Tender, Soft Back: Normal Inspection, No CVA Tenderness, No Vertebral Tenderness Extremity: Normal Capillary Refill, Normal Inspection, Normal Range of Motion, Non Tender, No Calf Tenderness Neurologic/Psychiatric: Alert, Oriented x3, No Motor/Sensory Deficits, research compliance specialist II- XII Norm as Tested, Depressed Affect, Motor Weakness (generalized weakness 4/5 all extremities), Other (anxious) Skin: Normal Color, Warm/Dry Lymphatic: No Adenopathy Results/Procedures Lab Laboratory Tests 02/22/19 19:52 02/23/19 09:20 Patient resulted labs reviewed. FIM Transfers Therapy Code Descriptions/Definitions Functional [place] Measure: 0=Not Assessed/NA 4=Minimal Assistance 1=Total Assistance 5=Supervision or Setup 2=Maximal Assistance 6=Modified [place] 3=Moderate Assistance 7=Complete [place] Therapy Quality Codes: 6 Independent with activity with or without an assistive device 5 Patient requires set up or clean up by helper. Patient completes activity by themselves 4 Supervision or touching assist (CGA). [place] provide cues , steadying assist 3 The helper provides less than half the effort to complete the activity 2 The helper provides more than half the effort to complete the activity 1 Dependent. The helper does all the effort to complete an activity 7 Patient refused to complete or attempt activity 9 The patient did not perform the activity before the current illness or injury 88 Not attempted due to Medical conditions or safety concerns Mental Status/Objective Comprehension: 7 Expression: 7 Social Interaction: 7 Problem Solvin Memory: 6 ADL-Treatment Feedin (Dentures.) Eating (QC): 6 Groomin Oral Hygiene (QC): 6 Bathin Bathing Location: L Arm, R Arm, L Upper Leg, R Upper Leg, L Lower Leg ( including foot), R Lower Leg (including foot), Chest, Abdomen, Buttocks, Perineal Area Shower/Bathe Self (QC): 4 Upper Extremity Dressin Upper Body Dressing (QC): 5 Lower Extremity Dressin Lower Body Dressing (QC): 4 On/Off Footwear (QC): 5 Toiletin (Help to get pants up and down but able to wipe with verbal cues for problem solving. Min assist to maintain balance while managing clothing. Used grab bar on R side of toilet. Platform walker. ) Toileting Hygiene (QC): 2 Toilet/Commode Transfer: 4 (Min to CGA assist to get on/off tall toilet, using grab bar. ) Toilet Transfer (QC): 3 Shower: 5 (Close SBA using FWW, grabbar and shower bench.) Assessment/Plan Assessment and Plan Assess & Plan/Chief Complaint Assessment: Falls Debility Recent shoulder surgery left Bipolar d/o? Anxiety Chronic pain Neuropathy Chronic constipation CRI AF Elevated LFT's improved with decreased Tylenol dosing and holding statin and other meds Overuse of meds now much improved Drowsiness resolved since minimizing meds Hyponatremia now resolved Vaginal discharge Plan: IRF protocol Home meds Check labs Cardiology consultation for cardiac management while hospitalized is appreciated Hold statin until sees PCP at ID Minimize Tylenol Minimize all sedating meds Minimize water intake due to mild hyponatremia and patient appears to be high risk for psychogenic polydipsia sodium level now normal Xanax dosing as per PCP Appreciate Dr Murphy (1) Debility (2) Thrombocytopenia (3) Overuse of medication (4) Drowsiness (5) Atrial fibrillation (6) Anticoagulated (7) Elevated liver enzymes (8) Fall on same level (9) Falls (10) Weakness (11) Bipolar 1 disorder (12) Hyponatremia (13) Insomnia (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
[2019-02-23] MEDS ORDERED: SPIRONOLACTONE 25 MG (ALDACTONE) TAB PO SCH (09:00)
[2019-02-23] MEDS: APIXABAN 2.5 MG (ELIQUIS) TABLET PO SCH ×2 (09:00→20:40)
[2019-02-23] MEDS: ASPIRIN 81 MG CHEW (CHILDREN'S ASA) PO SCH (09:01)
[2019-02-23] MEDS: PANTOPRAZOLE 20 MG TABLET (PROTONIX) PO SCH (09:01)
[2019-02-23] MEDS: FUROSEMIDE 20 MG (LASIX) TAB PO SCH (09:01)
[2019-02-23] MEDS: buPROPion SR 150 MG (WELLBUTRIN SR) TAB PO SCH ×2 (09:01→20:38)
[2019-02-23] MEDS: ENALAPRIL 2.5 MG (VASOTEC) TAB PO SCH (09:10)
[2019-02-23] MEDS: meTOprolol TARTRATE 25 MG (LOPRESSOR) TABLET PO SCH ×2 (09:10→20:41)
--- NOTE | 2019-02-23 09:11 | Physical Therapy Daily Note ---
PT Daily Note-Current Subjective Agrees to Rx. Pain Location: No Pain Reported Mental Status Patient Orientation: Normal For Age Transfers Therapy Code Descriptions/Definitions Functional [place] Measure: 0=Not Assessed/NA 4=Minimal Assistance 1=Total Assistance 5=Supervision or Setup 2=Maximal Assistance 6=Modified [place] 3=Moderate Assistance 7=Complete [place] Therapy Quality Codes: 6 Independent with activity with or without an assistive device 5 Patient requires set up or clean up by helper. Patient completes activity by themselves 4 Supervision or touching assist (CGA). [place] provide cues , steadying assist 3 The helper provides less than half the effort to complete the activity 2 The helper provides more than half the effort to complete the activity 1 Dependent. The helper does all the effort to complete an activity 7 Patient refused to complete or attempt activity 9 The patient did not perform the activity before the current illness or injury 88 Not attempted due to Medical conditions or safety concerns Transfers (B, C, W/C) (FIM): 6 Scootin Rollin Supine to/from Sit: 6 Sit to/from Stand: 6 Car Transfer (QC): 6 Weight Bearing Patient has rotator cuff precautions on the left shoulder Gait Training Does the Patient Walk?: Yes Gait (FIM): 2 Distance (FIM): 1=175-07 ft (125x2) Gait Level of Assist: 4 Gait Persons Needed: 1 Gait Assistive Device: FWW c/o fatigue and some SOB with gait Stair Training Stair Training: Handrails/: 2 handrails Stairs (FIM): 1 #of Steps: 2 Stairs: Pattern: Step to Level of Assist: 4 skilled verbal instruction and tactile cues in parallel bars with pink step Exercises Supine Ex: Bridging, Ankle pumps, Quad Set, Rolling, Glut sets, Heel Slides, Short Arc Quads, Scooting, Straight leg raise, Hip abd/add Supine Reps: 15 Seated Therapy Exercises: Ankle pumps, Sit to stand, Long arc quads, Hip abd/ add Seated Reps: 10 Standing: Hip Abduction, 3 way Ex=Flex, Abd, Ext, Marching Standing Reps: 12 NuStep Minutes: 12 NuStep Workload: 2 Assessment Current Status: Good Progress PT Short Term Goals Short Term Goals Time Frame: February 22, 2019 Transfers (B,C,W/C) (FIM): 4 (met) Gait (FIM): 1 (met) Gait Distance Comment: 20' Gait Level of Assist: 4 Gait Assistive Device: FWW PT Shelter Goals Wholesale And Retail Merchant Goals PT Wholesale And Retail Merchant Goals Time Frame: March 08, 2019 Transfers (B,C,W/C) (FIM): 4 (CGA) Sit to Lying (QC): 4 Lying-Sitting on Side/Bed(QC): 4 Sit to Stand (QC): 4 Rollin Roll Left to Right (QC): 4 Chair/Ujz-jb-Rythd Xfer(QC): 4 Car Transfer (QC): 4 Gait (FIM): 2 Distance: 50' Walk 10 feet (QC): 4 Walk 10ft-Uneven Surface(QC): 4 Walk 50ft with 2 Turns (QC): 4 Gait Level of Assist: 4 Gait Assistive Device: Cane Large Base Quad Stairs (FIM): 1 # of Steps: 1 1 Step (curb) (QC): 4 Stairs Level Of Assist: 4 PT Plan Treatment/Plan Treatment Plan: Continue Plan of Care Treatment Plan: Bed Mobility, Concurrent Therapy, Education, Functional Activity Ashley, Functional Strength, Group Therapy, Gait, Safety, Therapeutic Exercise, Transfers Treatment Duration: March 08, 2019 Frequency: At least 5 of 7 days/Wk (IRF) Estimated Hrs Per Day: 1.5 hours per day Patient and/or Family Agrees t: Yes Safety Risks/Education Patient Education: Gait Training, Transfer Techniques, Steps, Correct Positioning, Disease Process, Safety Issues Teaching Recipient: Patient Teaching Methods: Demonstration, Discussion Response to Teaching: Verbalize Understanding, Return Demonstration, Reinforcement Needed Time/GCodes Time In: 800 Time Out: 900 Total Billed Treatment Time: 60 Total Billed Treatment 1,FA15m,GT15m,EX30m G Codes Necessary: DEVIN Isaac BETTING AGENCY COUNTER CLERK February 23, 2019 09:11
--- NOTE | 2019-02-23 09:20 | Occupational Ther Daily Note ---
OT Current Status-Daily Note Subjective Pt alert, lying in bed. Pt agrees to therapy. C/o pain with L hip, nrsg in room. Ice pack placed at end of treatment. Mental Status/Objective Patient Orientation: Person, Place, Time, Situation Therapy Code Descriptions/Definitions Functional [place] Measure: 0=Not Assessed/NA 4=Minimal Assistance 1=Total Assistance 5=Supervision or Setup 2=Maximal Assistance 6=Modified [place] 3=Moderate Assistance 7=Complete [place] ADL-Treatment Per OT eval-PT RECENTLY HAD rotator cuff repair (Left) on 01/24/19 by doctor John Chavez MD. pt has 3 phases for precautions Phase 1 (passive) week 1-4 full elevation, internal rotation and external rotation. no limitations Phase 2 (active) weeks 5&6 full motion in all planes with terminal stretch Phase 3 (resisted) week 7 Full motion with shrugs, row week 8 weight weight training Pt in Phase 2. Therapy Code Descriptions/Definitions Functional [place] Measure: 0=Not Assessed/NA 4=Minimal Assistance 1=Total Assistance 5=Supervision or Setup 2=Maximal Assistance 6=Modified [place] 3=Moderate Assistance 7=Complete [place] Therapy Quality Codes: 6 Independent with activity with or without an assistive device 5 Patient requires set up or clean up by helper. Patient completes activity by themselves 4 Supervision or touching assist (CGA). [place] provide cues , steadying assist 3 The helper provides less than half the effort to complete the activity 2 The helper provides more than half the effort to complete the activity 1 Dependent. The helper does all the effort to complete an activity 7 Patient refused to complete or attempt activity 9 The patient did not perform the activity before the current illness or injury 88 Not attempted due to Medical conditions or safety concerns Grooming (FIM): 6 (Sitting at sink, pt completes by self.) Oral Hygiene (QC): 6 Bathing (FIM): 5 (Supervision for safety using grabbar, hand held shower and shower bench.) Bathing Location: L Arm, R Arm, L Upper Leg, R Upper Leg, L Lower Leg ( including foot), R Lower Leg (including foot), Chest, Abdomen, Buttocks, Perineal Area Shower/Bathe Self (QC): 4 Upper Body (FIM): 5 (Supervision to retrieve clothing then pt able to complete by self.) Upper Body Dressing (QC): 4 Lower Body Dressing (FIM): 5 (Supervision to retrieve clothing with FWW and then in standing when hiking pants over hips. Pt complete all other areas by self.) Lower Body Dressing (QC): 4 On/Off Footwear (QC): 6 (Completes in sitting.) Transfers (B, C, W/C) (FIM): 5 (Supervision for safety using FWW.) Shower Transfer(FIM): 5 (SBA for safety using FWW, grabbars and shower bench.) Pt takes increased time to complete tasks due to multiple recovery breaks throughout session due to SOA. Other Treatment Pt ambulated with 1 recovery break going to therapy gym using FWW and was able to ambulate back to room without recovery break. Pt complete AROM of L UE with skilled cues to complete with correct technique. UE AROM without resistance completed to increase ROM and increase activity tolerance. Proper positioning of B shldrs for good breathing technique. After therapy, pt lying in bed with call light/phone in reach. All needs met in room. OT Short Term Goals Short Term Goals Eating(FIM): 6 Grooming(FIM): 5 Bathing(FIM): 5 Bathing Location: L Arm, R Arm, L Upper Leg, R Upper Leg, L Lower Leg ( including foot), R Lower Leg (including foot), Chest, Abdomen, Buttocks, Perineal Area Upper Body Dressing(FIM): 5 Lower Body Dressing(FIM): 5 Toileting(FIM): 5 Transfers (B,C,W/C) (FIM): 4 (met) Toilet/Commode Transfer(FIM): 5 Tub Transfer(FIM): 5 Shower Transfer(FIM): 5 1=Demonstrate adherence to instructed precautions during ADL tasks. 2=Patient will verbalize/demonstrate understanding of assistive devices/ modifications for ADL. 3=Patient will improve strength/tolerance for activity to enable patient to perform ADL's. OT Tube Tester Goals Care Home Goals Eating (FIM): 6 Eating (QC): 6 Groomin Oral Hygiene (QC): 6 Bathing(FIM): 6 Bathing Location: L Arm, R Arm, L Upper Leg, R Upper Leg, L Lower Leg ( including foot), R Lower Leg (including foot), Chest, Abdomen, Buttocks, Perineal Area Shower/Bathe Self (QC): 6 Upper Body Dressing(FIM): 6 Upper Body Dressing (QC): 6 Lower Body Dressing(FIM): 6 Lower Body Dressing (QC): 6 On/Off Footwear (QC): 6 Toileting(FIM): 6 Toileting Hygiene (QC): 6 Transfers (B,C,W/C) (FIM): 6 Toilet/Commode Transfer(FIM): 6 Toilet/Commode Transfer (QC): 6 Tub Transfer(FIM): 6 Shower Transfer(FIM): 6 Additional Goals: 1-Demonstrate ADL Tasks, 2-Verbalize Understanding, 3- ImproveStrength/Ashley 1=Demonstrate adherence to instructed precautions during ADL tasks. 2=Patient will verbalize/demonstrate understanding of assistive devices/ modifications for ADL. 3=Patient will improve strength/tolerance for activity to enable patient to perform ADL's. OT Education/Plan Problem List/Assessment Assessment: Decreased Activ Tolerance, Decreased UE Strength, Impaired Self- Care Skills, Restricted Funct UE ROM 78 year old female present to OT services secondary to frequent falls at home. pt had recently rotator cuff surgery on 01/24/19. during evaluation pt required total assist for LB dressing, total assist with UB dressing, MAX A for toileting , MIN A for sit to stands. pt presents with functional limitations affecting areas of ADLS and functional transfers with deficits in: decrease overall balance, activity tolerance/ endurance, decrease safety awareness, decrease ability to follow shoulder precautions, impaired IADLs, and decrease overall safety with functional task in sitting and standing. pt would benefit from skilled OT services to increase overall independence with ADLS and functional transfers and to address above mention deficits. Discharge Recommendations Plan/Recommendations: Continue POC Treatment Plan/Plan of Care Patient would benefit from OT for education, treatment and training to promote independence in ADL's, mobility, safety and/or upper extremity function for ADL' s. Plan of Care: ADL Retraining, Caregiver Training, Concurrent Therapy, Functional Mobility, Group Exercise/Act as Ind, Orthotic Fitting/Training, UE Funct Exercise/Act Treatment Duration: March 08, 2019 Frequency: At least 5 of 7 days/Wk (IRF) Estimated Hrs Per Day: 1.5 hours per day Agreement: Yes Rehab Potential: Guarded Time/GCodes Start Time: 09:30 Stop Time: 11:00 Total Time Billed (hr/min): 90 Billed Treatment Time 1 visit-ADL 4 (60 min) EX 2 (30 min) OMID WALSH February 23, 2019 09:20
[2019-02-23 09:54] LABS: CALCIUM 8.8 MG/DL (8.5-10.1); CREATININE SERUM 1.1 MG/DL (0.60-1.30); MAGNESIUM 1.8 MG/DL (1.8-2.4); POTASSIUM 4.8 MMOL/L (3.6-5.0)
--- NOTE | 2019-02-23 09:59 | Progress Note-Cardiology ---
Cardiology SOAP Progress Note Subjective: Up to chair after completing shower. Mild exertional dyspnea which is chronic and unchanged. No c/o CP or palpitations. Objective: I&O/Vital Signs 02/23/19 02/23/19 05:58 08:00 Temp 97.1 Pulse 60 71 Resp 20 B/P (MAP) 109/72 (84) 107/72 (84) Pulse Ox 96 O2 Delivery Room Air 02/22/19 23:59 Intake Total 720 ml Balance 720 ml Weight (Pounds): 148 Weight (Ounces): 0.0 Weight (Calculated Kilograms): 67.595820 Constitutional: AAO x 3, well-developed, well-nourished Respiratory: No accessory muscle use; lungs clear to percussion, lungs clear to auscultation Cardiovascular: irregularly irregular, S1 and S2, systolic murmur (faint DONG at card base) Gastrointestional: soft; No guarding, No rebound, No tenderness; audible bowel sounds Extremities: No clubbing, No cyanosis, No significant edema Neurologic/Psychiatric: oriented x 3, other (4/5 power bilat), grossly intact Skin: No rash on exposed areas, No ulcerations on exposed areas Results/Procedures: Labs Laboratory Tests 02/22/19 19:52: Sodium Level 137, Potassium Level 5.4H, Chloride Level 103, Carbon Dioxide Level 23, Anion Gap 11, Blood Urea Nitrogen 15, Creatinine 1.08, Estimat Glomerular Filtration Rate 49, BUN/Creatinine Ratio 14, Glucose Level 115H, Calcium Level 9.3, Magnesium Level 1.9 02/23/19 09:20: Sodium Level 134L, Potassium Level 4.8, Chloride Level 101, Carbon Dioxide Level 23, Anion Gap 10, Blood Urea Nitrogen 14, Creatinine 1.10, Estimat Glomerular Filtration Rate 48, BUN/Creatinine Ratio 13, Glucose Level 123H, Calcium Level 8.8, Magnesium Level 1.8 Microbiology 02/22/19 Genital Culture - Preliminary, Resulted No growth A/P: Assessment: Chronic persistent A Fib Ac on chronic systolic CHF Mild to mod cardiomyopathy, probably ischemic. Echo of 02/21/19: LVEF 40-45%, anteroseptal hypokinesis to akinesis, biatrial enlargement, mod to sev MR, sev TR, PASP 25-30 mmHg Mild CAD on card cath of 2016, according to the patient H/o hyperlipidemia Gen weakness, being evaluated and treated by Dr Quintanilla Plan: * Continue apixaban and statin * Continue RODNEY and aldactone * Monitor labs Physician Assessment Physician Assessment No cp or palp or syncope. Notes some improvement of shortness of breath No acute distress Lungs: good air entry, diminished at the bases Cor: irreg Ext: no c/c/e A&R * As documented in our note above that I updated (italics) and as noted below * Monitor labs * Dr Lucas covering our service over the weekend EMMA BARRERA LOGGING CONTRACTOR February 23, 2019 09:59 MOHINI VELASQUEZ MD FACP [facility]S February 23, 2019 14:22
--- NOTE | 2019-02-23 10:00 | NUR ---
POTASSIUM IMPROVED AT 4.8. ALDACTONE GIVEN OKAY'D BY SANCHEZ CARTER. DR. VELASQUEZ THEN SAW PATIENT AND DC'D ALDACTONE.
[2019-02-23] MEDS: ALPRAZolam 0.5 MG (XANAX) TAB PO SCH (10:09)
--- NOTE | 2019-02-23 13:00 | NUR ---
REQUEST FOR RECORDS SENT TO [facility] FOR LAST DISCHARGE SUMMARY.
--- NOTE | 2019-02-23 13:00 | Physical Therapy Daily Note ---
PT Daily Note-Current Subjective Agrees to Rx. States she is tired and hopes to nap after rx. States she feels her fatigue is due to her heart being weak Pain Location: No Pain Reported Mental Status Patient Orientation: Normal For Age Transfers Therapy Code Descriptions/Definitions Functional [place] Measure: 0=Not Assessed/NA 4=Minimal Assistance 1=Total Assistance 5=Supervision or Setup 2=Maximal Assistance 6=Modified [place] 3=Moderate Assistance 7=Complete [place] Therapy Quality Codes: 6 Independent with activity with or without an assistive device 5 Patient requires set up or clean up by helper. Patient completes activity by themselves 4 Supervision or touching assist (CGA). [place] provide cues , steadying assist 3 The helper provides less than half the effort to complete the activity 2 The helper provides more than half the effort to complete the activity 1 Dependent. The helper does all the effort to complete an activity 7 Patient refused to complete or attempt activity 9 The patient did not perform the activity before the current illness or injury 88 Not attempted due to Medical conditions or safety concerns all sit to stand and sup to sit SBA Weight Bearing Patient has rotator cuff precautions on the left shoulder Gait Training Gait Assistive Device: FWW 489ftz0, 50ftx2, FWW CGA to SBA obstacles and fig 8s no LOB but does fatigue Exercises Seated Therapy Exercises: Ankle pumps, Sit to stand, Long arc quads, Hip flexion, Hip abd/add Seated Reps: 12 Treatments in bed after Rx with salo at hand Assessment Current Status: Good Progress PT Short Term Goals Short Term Goals Time Frame: February 22, 2019 Transfers (B,C,W/C) (FIM): 4 (met) Gait (FIM): 1 (met) Gait Distance Comment: 20' Gait Level of Assist: 4 Gait Assistive Device: FWW PT Well Surveying Engineer Goals Snf Goals PT Well Surveying Engineer Goals Time Frame: March 08, 2019 Transfers (B,C,W/C) (FIM): 4 (CGA) Sit to Lying (QC): 4 Lying-Sitting on Side/Bed(QC): 4 Sit to Stand (QC): 4 Rollin Roll Left to Right (QC): 4 Chair/Lvv-vq-Ztibe Xfer(QC): 4 Car Transfer (QC): 4 Gait (FIM): 2 Distance: 50' Walk 10 feet (QC): 4 Walk 10ft-Uneven Surface(QC): 4 Walk 50ft with 2 Turns (QC): 4 Gait Level of Assist: 4 Gait Assistive Device: Cane Large Base Quad Stairs (FIM): 1 # of Steps: 1 1 Step (curb) (QC): 4 Stairs Level Of Assist: 4 PT Plan Treatment/Plan Treatment Plan: Continue Plan of Care Treatment Plan: Bed Mobility, Concurrent Therapy, Education, Functional Activity Ashley, Functional Strength, Group Therapy, Gait, Safety, Therapeutic Exercise, Transfers Treatment Duration: March 08, 2019 Frequency: At least 5 of 7 days/Wk (IRF) Estimated Hrs Per Day: 1.5 hours per day Patient and/or Family Agrees t: Yes Safety Risks/Education Patient Education: Gait Training, Transfer Techniques Teaching Recipient: Patient Teaching Methods: Demonstration, Discussion Response to Teaching: Verbalize Understanding, Return Demonstration, Reinforcement Needed Time/GCodes Time In: 1230 Time Out: 1300 Total Billed Treatment Time: 30 Total Billed Treatment 1,GT20m,EX10m G Codes Necessary: DEVIN Isaac MANAGER INSPECTION February 23, 2019 13:00
[2019-02-23 15:50] VITALS: BP 99/67
[2019-02-23] MEDS: GABAPENTIN 100 MG (NEURONTIN) CAP PO SCH (20:40)
[2019-02-23] MEDS: traZODone 50 MG (DESYREL) TAB PO SCH (20:41)
[2019-02-23] MEDS: ALPRAZolam 1 MG (XANAX) TAB PO SCH (20:41)
[2019-02-24 05:06] VITALS: BP 115/75
[2019-02-24] MEDS: FERROUS SULF 325 MG (IRON) TAB PO SCH (06:25)
[2019-02-24] MEDS: VITAMIN D3 1,000 UNITS (CHOLECALCIFEROL) TABLET PO SCH (06:25)
[2019-02-24] MEDS: LEVOTHYROXINE 25 MCG (LEVOTHROID) TAB PO SCH (06:25)
[2019-02-24 07:14] LABS: BUN/CREATININE RATIO 13; CALCIUM 8.7 MG/DL (8.5-10.1); CARBON DIOXIDE 24 MMOL/L (21-32); CHLORIDE 105 MMOL/L (98-107); GFR ESTIMATED > 60; GLUCOSE 76 MG/DL (70-105); POTASSIUM 4.1 MMOL/L (3.6-5.0); SODIUM 137 MMOL/L (135-145)
[2019-02-24] MEDS: KCL 10 MEQ TAB (MICRO K) PO SCH (07:23)
[2019-02-24 08:20] VITALS: BP 116/77
[2019-02-24] MEDS: buPROPion SR 150 MG (WELLBUTRIN SR) TAB PO SCH ×2 (08:38→20:52)
[2019-02-24] MEDS: APIXABAN 2.5 MG (ELIQUIS) TABLET PO SCH ×2 (08:38→20:51)
[2019-02-24] MEDS: ENALAPRIL 2.5 MG (VASOTEC) TAB PO SCH (08:38)
[2019-02-24] MEDS: PANTOPRAZOLE 20 MG TABLET (PROTONIX) PO SCH (08:38)
[2019-02-24] MEDS: FUROSEMIDE 20 MG (LASIX) TAB PO SCH (08:38)
[2019-02-24] MEDS: meTOprolol TARTRATE 25 MG (LOPRESSOR) TABLET PO SCH ×2 (08:38→20:51)
[2019-02-24] MEDS: ALPRAZolam 0.5 MG (XANAX) TAB PO SCH (10:45)
[2019-02-24] MEDS: POLYETHYLENE GLYCOL 17 GM (MIRALAX) PACK PO PRN (10:52)
--- NOTE | 2019-02-24 10:53 | NUR ---
Miralax given for C/O constipation.
--- NOTE | 2019-02-24 11:00 | NUR ---
Dr. Quitnanilla here to see patient. Orders to DC daily labs.
--- NOTE | 2019-02-24 11:57 | Physical Therapy Daily Note ---
PT Daily Note-Current Subjective Pt agreeable to PT session, states she would like to get dressed, denies any pain and states that her ankles feel better. Pain Numeric Pain Scale: 0-No Pain Appearance Upon arrival, Pt in bed with HOB elevated, awake and alert At end of session, pt in recliner with call light, phone and bedside table within reach, all needs met Mental Status Patient Orientation: Person, Place, Time, Eyes Open, Situation Transfers Therapy Code Descriptions/Definitions Functional [place] Measure: 0=Not Assessed/NA 4=Minimal Assistance 1=Total Assistance 5=Supervision or Setup 2=Maximal Assistance 6=Modified [place] 3=Moderate Assistance 7=Complete [place] Therapy Quality Codes: 6 Independent with activity with or without an assistive device 5 Patient requires set up or clean up by helper. Patient completes activity by themselves 4 Supervision or touching assist (CGA). [place] provide cues , steadying assist 3 The helper provides less than half the effort to complete the activity 2 The helper provides more than half the effort to complete the activity 1 Dependent. The helper does all the effort to complete an activity 7 Patient refused to complete or attempt activity 9 The patient did not perform the activity before the current illness or injury 88 Not attempted due to Medical conditions or safety concerns Transfers (B, C, W/C) (FIM): 4 Scootin Rollin Supine to/from Sit: 4 (HOB elevated, use of bedrail, verb inst for technique to protect L shoulder) Sit to/from Stand: 5 (verb inst to not push up with LUE) able to stand upon 1st attempt each transition. Precautions review to protect L shoulder Weight Bearing Patient has rotator cuff precautions on the left shoulder Gait Training Does the Patient Walk?: Yes Gait (FIM): 2 Distance (FIM): 4=892-37 ft Distance: 110 x2 Gait Level of Assist: 4 Gait Persons Needed: 1 Gait Assistive Device: FWW strong emphasis on pushing walker and not leaning on it to decrease WB through LUE. Slight antalgic gait, slow pace Stair Training Stair Training: Handrails/: 1 handrail #of Steps: 4 Stairs: Pattern: Step to pt hesitant, stating last time she was on stairs she fell and all this happened. Verbal and demo instruction provided then pt performed slowly but without LOB or unsteadiness. Was fatigued at end and requiring sitting rest break Treatments bed mobility, sitting balance EOB while pt dressed self and donned socks and shoes, no LOB but fatigues easily. Transfers, gait, safety, shoulder precautions , activity tolerance, functional mobility, stair training Assessment Current Status: Good Progress began stair training today. Pt continues to fatigue easily with activities requiring several rest breaks PT Short Term Goals Short Term Goals Time Frame: February 22, 2019 Transfers (B,C,W/C) (FIM): 4 (met) Gait (FIM): 1 (met) Gait Distance Comment: 20' Gait Level of Assist: 4 Gait Assistive Device: FWW PT Alf Goals Alf Goals PT [place] Goals Time Frame: March 08, 2019 Transfers (B,C,W/C) (FIM): 4 (CGA) Sit to Lying (QC): 4 Lying-Sitting on Side/Bed(QC): 4 Sit to Stand (QC): 4 Rollin Roll Left to Right (QC): 4 Chair/Hvp-vt-Zhnrw Xfer(QC): 4 Car Transfer (QC): 4 Gait (FIM): 2 Distance: 50' Walk 10 feet (QC): 4 Walk 10ft-Uneven Surface(QC): 4 Walk 50ft with 2 Turns (QC): 4 Gait Level of Assist: 4 Gait Assistive Device: Cane Large Base Quad Stairs (FIM): 1 # of Steps: 1 1 Step (curb) (QC): 4 Stairs Level Of Assist: 4 PT Plan Treatment/Plan Treatment Plan: Continue Plan of Care Treatment Plan: Bed Mobility, Concurrent Therapy, Education, Functional Activity Ashley, Functional Strength, Group Therapy, Gait, Safety, Therapeutic Exercise, Transfers Treatment Duration: March 08, 2019 Frequency: At least 5 of 7 days/Wk (IRF) Estimated Hrs Per Day: 1.5 hours per day Patient and/or Family Agrees t: Yes Safety Risks/Education Patient Education: Gait Training, Transfer Techniques, Steps, Reviewed Precautions, Safety Issues Teaching Recipient: Patient Teaching Methods: Demonstration, Discussion Response to Teaching: Verbalize Understanding, Return Demonstration Time/GCodes Time In: 754 Time Out: 817 Total Billed Treatment Time: 23 Total Billed Treatment 1 visit, GT x 2 units SANTHOSH BRAGG COMPUTER EDUCATION TEACHER February 24, 2019 11:57
--- NOTE | 2019-02-24 12:37 | PM&R Progress Note ---
Subjective HPI/CC On Admission Date Seen by Provider: February 24, 2019 Time Seen by Provider: 11:00 CC: Falls with debility HPI: This is a 78[address]WF of [address] Jauregui at [facility] who presents to the IRF due to multiple falls and recent left shoulder surgery. Apparently she resides at home in [place] and her daughter is involved in her are. She sees Cardiology and Nephrology at [facility]. PLOF was independent. Currently I have restarted all meds and reviewed PMH. Patient denies pain currently and overall she just feels weak and is afraid to walk because she feels like she is falling. Barriers to return home independently will include improved ambulation and resumption of ADL independence. Subjective/Events-last exam Patient doing much better and participating in all therapy and really feels like she is making progress Will DC daily labs since BMP with potassium and magnesium were normal Taking MiraLAX daily Vaginal discharge results pending Conferred with RN Reviewed therapy notes Overall dramatically improved since admission since minimizing medications Pleased with her strength Denies any significant pain issues Review of Systems General: Fatigue Neurological: Weakness, Incoordination Anxiety Objective Exam Vital Signs Vital Signs Date Time Temp Pulse Resp B/P (MAP) Pulse Ox O2 Delivery O2 Flow Rate FiO2 02/25/19 09:41 Room Air 02/25/19 08:19 98 104/72 (83) 02/25/19 05:08 96.9 18 94 Capillary Refill : General Appearance: No Apparent Distress, WD/WN, Chronically ill HEENT: PERRL/EOMI, Normal ENT Inspection, Pharynx Normal Neck: Full Range of Motion, Normal Inspection, Non Tender, Supple Respiratory: Chest Non Tender, Lungs Clear, Normal Breath Sounds, No Accessory Muscle Use, No Respiratory Distress Cardiovascular: No Edema, No Gallop, No JVD, No Murmur, Normal Peripheral Pulses, Irregularly Irregular Gastrointestinal: Normal Bowel Sounds, No Organomegaly, No Pulsatile Mass, Non Tender, Soft Back: Normal Inspection, No CVA Tenderness, No Vertebral Tenderness Extremity: Normal Capillary Refill, Normal Inspection, Normal Range of Motion, Non Tender, No Calf Tenderness Neurologic/Psychiatric: Alert, Oriented x3, No Motor/Sensory Deficits, 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 FIM Transfers Therapy Code Descriptions/Definitions Functional [place] Measure: 0=Not Assessed/NA 4=Minimal Assistance 1=Total Assistance 5=Supervision or Setup 2=Maximal Assistance 6=Modified [place] 3=Moderate Assistance 7=Complete [place] Therapy Quality Codes: 6 Independent with activity with or without an assistive device 5 Patient requires set up or clean up by helper. Patient completes activity by themselves 4 Supervision or touching assist (CGA). [place] provide cues , steadying assist 3 The helper provides less than half the effort to complete the activity 2 The helper provides more than half the effort to complete the activity 1 Dependent. The helper does all the effort to complete an activity 7 Patient refused to complete or attempt activity 9 The patient did not perform the activity before the current illness or injury 88 Not attempted due to Medical conditions or safety concerns Mental Status/Objective Comprehension: 7 Expression: 7 Social Interaction: 7 Problem Solvin Memory: 6 ADL-Treatment Feedin (Dentures.) Eating (QC): 6 Groomin (Sitting at sink, pt completes by self.) Oral Hygiene (QC): 6 Bathin (Supervision for safety using grabbar, hand held shower and shower bench.) Bathing Location: L Arm, R Arm, L Upper Leg, R Upper Leg, L Lower Leg ( including foot), R Lower Leg (including foot), Chest, Abdomen, Buttocks, Perineal Area Shower/Bathe Self (QC): 4 Upper Extremity Dressin (Supervision to retrieve clothing then pt able to complete by self.) Upper Body Dressing (QC): 4 Lower Extremity Dressin (Supervision to retrieve clothing with FWW and then in standing when hiking pants over hips. Pt complete all other areas by self.) Lower Body Dressing (QC): 4 On/Off Footwear (QC): 6 (Completes in sitting.) Toiletin (Help to get pants up and down but able to wipe with verbal cues for problem solving. Min assist to maintain balance while managing clothing. Used grab bar on R side of toilet. Platform walker. ) Toileting Hygiene (QC): 2 Toilet/Commode Transfer: 4 (Min to CGA assist to get on/off tall toilet, using grab bar. ) Toilet Transfer (QC): 3 Shower: 5 (SBA for safety using FWW, grabbars and shower bench.) Assessment/Plan Assessment and Plan Assess & Plan/Chief Complaint Assessment: Falls Debility Recent shoulder surgery left Bipolar d/o? Anxiety Chronic pain Neuropathy Chronic constipation CRI AF Elevated LFT's improved with decreased Tylenol dosing and holding statin and other meds Overuse of meds now much improved Drowsiness resolved since minimizing meds Hyponatremia now resolved Vaginal discharge no significant change Plan: IRF protocol Home meds Check labs Cardiology consultation for cardiac management while hospitalized is appreciated Hold statin until sees PCP at [place] Minimize Tylenol Minimize all sedating meds Minimize water intake due to mild hyponatremia and patient appears to be high risk for psychogenic polydipsia sodium level now normal Xanax dosing as per PCP Appreciate Dr Shanks and will follow up with Dr. Shanks regarding results and plan (1) Debility (2) Thrombocytopenia (3) Overuse of medication (4) Drowsiness (5) Atrial fibrillation (6) Anticoagulated (7) Elevated liver enzymes (8) Fall on same level (9) Falls (10) Weakness (11) Bipolar 1 disorder (12) Hyponatremia (13) Insomnia (14) Psychogenic polydipsia (15) LEFT SHOULDER ROTATOR CUFF TEAR PATRICE ISAAC DO February 24, 2019 12:37
--- NOTE | 2019-02-24 14:46 | NUR ---
Up to the BR. Large amount of formed BM noted.
[2019-02-24 17:06] VITALS: BP 118/83
[2019-02-24] MEDS: ALPRAZolam 1 MG (XANAX) TAB PO SCH (20:51)
[2019-02-24] MEDS: GABAPENTIN 100 MG (NEURONTIN) CAP PO SCH (20:51)
[2019-02-24] MEDS: traZODone 50 MG (DESYREL) TAB PO SCH (20:52)
[2019-02-25 05:08] VITALS: BP 111/74
[2019-02-25] MEDS: LEVOTHYROXINE 25 MCG (LEVOTHROID) TAB PO SCH (06:26)
[2019-02-25] MEDS: FERROUS SULF 325 MG (IRON) TAB PO SCH (06:26)
[2019-02-25] MEDS: KCL 10 MEQ TAB (MICRO K) PO SCH (06:26)
[2019-02-25] MEDS: VITAMIN D3 1,000 UNITS (CHOLECALCIFEROL) TABLET PO SCH (06:26)
[2019-02-25] MEDS: FUROSEMIDE 20 MG (LASIX) TAB PO SCH (08:15)
[2019-02-25] MEDS: buPROPion SR 150 MG (WELLBUTRIN SR) TAB PO SCH ×2 (08:15→20:09)
[2019-02-25] MEDS: PANTOPRAZOLE 20 MG TABLET (PROTONIX) PO SCH (08:15)
[2019-02-25] MEDS: APIXABAN 2.5 MG (ELIQUIS) TABLET PO SCH ×2 (08:15→20:09)
[2019-02-25] MEDS: meTOprolol TARTRATE 25 MG (LOPRESSOR) TABLET PO SCH ×2 (08:16→20:09)
[2019-02-25] MEDS: ENALAPRIL 2.5 MG (VASOTEC) TAB PO SCH (08:16)
[2019-02-25 08:19] VITALS: BP 104/72
[2019-02-25] MEDS: ALPRAZolam 0.5 MG (XANAX) TAB PO SCH (10:02)
--- NOTE | 2019-02-25 12:50 | PM&R Progress Note ---
Subjective HPI/CC On Admission Date Seen by Provider: February 25, 2019 Time Seen by Provider: 12:30 CC: Falls with debility HPI: This is a 78yoWF of [address] Jauregui at [facility] who presents to the IRF due to multiple falls and recent left shoulder surgery. Apparently she resides at home in [place] and her daughter is involved in her are. She sees Cardiology and Nephrology at [facility]. PLOF was independent. Currently I have restarted all meds and reviewed PMH. Patient denies pain currently and overall she just feels weak and is afraid to walk because she feels like she is falling. Barriers to return home independently will include improved ambulation and resumption of ADL independence. Subjective/Events-last exam Patient doing much better and resting up for tomorrow Will check labs in morning along with mag level for Cardiology Lasix given for edema Taking MiraLAX daily and had a BM today and that is back to normal for her Vaginal discharge results pending Conferred with RN Reviewed therapy notes Overall dramatically improved since admission since minimizing medications Pleased with her strength Denies any significant pain issues Check labs in am Review of Systems General: Fatigue Anxiety Objective Exam Vital Signs Vital Signs Date Time Temp Pulse Resp B/P (MAP) Pulse Ox O2 Delivery O2 Flow Rate FiO2 02/25/19 09:41 Room Air 02/25/19 08:19 98 104/72 (83) 02/25/19 05:08 96.9 18 94 Capillary Refill : General Appearance: No Apparent Distress, WD/WN, Chronically ill HEENT: PERRL/EOMI, Normal ENT Inspection, Pharynx Normal Neck: Full Range of Motion, Normal Inspection, Non Tender, Supple Respiratory: Chest Non Tender, Lungs Clear, Normal Breath Sounds, No Accessory Muscle Use, No Respiratory Distress Cardiovascular: No Edema, No Gallop, No JVD, No Murmur, Normal Peripheral Pulses, Irregularly Irregular Gastrointestinal: Normal Bowel Sounds, No Organomegaly, No Pulsatile Mass, Non Tender, Soft Back: Normal Inspection, No CVA Tenderness, No Vertebral Tenderness Extremity: Normal Capillary Refill, Normal Inspection, Normal Range of Motion, Non Tender, No Calf Tenderness Neurologic/Psychiatric: Alert, Oriented x3, No Motor/Sensory Deficits, 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 FIM Transfers Therapy Code Descriptions/Definitions Functional [place] Measure: 0=Not Assessed/NA 4=Minimal Assistance 1=Total Assistance 5=Supervision or Setup 2=Maximal Assistance 6=Modified [place] 3=Moderate Assistance 7=Complete [place] Therapy Quality Codes: 6 Independent with activity with or without an assistive device 5 Patient requires set up or clean up by helper. Patient completes activity by themselves 4 Supervision or touching assist (CGA). [place] provide cues , steadying assist 3 The helper provides less than half the effort to complete the activity 2 The helper provides more than half the effort to complete the activity 1 Dependent. The helper does all the effort to complete an activity 7 Patient refused to complete or attempt activity 9 The patient did not perform the activity before the current illness or injury 88 Not attempted due to Medical conditions or safety concerns Mental Status/Objective Comprehension: 7 Expression: 7 Social Interaction: 7 Problem Solvin Memory: 6 ADL-Treatment Feedin (Dentures.) Eating (QC): 6 Groomin (Sitting at sink, pt completes by self.) Oral Hygiene (QC): 6 Bathin (Supervision for safety using grabbar, hand held shower and shower bench.) Bathing Location: L Arm, R Arm, L Upper Leg, R Upper Leg, L Lower Leg ( including foot), R Lower Leg (including foot), Chest, Abdomen, Buttocks, Perineal Area Shower/Bathe Self (QC): 4 Upper Extremity Dressin (Supervision to retrieve clothing then pt able to complete by self.) Upper Body Dressing (QC): 4 Lower Extremity Dressin (Supervision to retrieve clothing with FWW and then in standing when hiking pants over hips. Pt complete all other areas by self.) Lower Body Dressing (QC): 4 On/Off Footwear (QC): 6 (Completes in sitting.) Toiletin (Help to get pants up and down but able to wipe with verbal cues for problem solving. Min assist to maintain balance while managing clothing. Used grab bar on R side of toilet. Platform walker. ) Toileting Hygiene (QC): 2 Toilet/Commode Transfer: 4 (Min to CGA assist to get on/off tall toilet, using grab bar. ) Toilet Transfer (QC): 3 Shower: 5 (SBA for safety using FWW, grabbars and shower bench.) Assessment/Plan Assessment and Plan Assess & Plan/Chief Complaint Assessment: Falls Debility Recent shoulder surgery left Bipolar d/o? Anxiety Chronic pain Neuropathy Chronic constipation CRI AF Elevated LFT's improved with decreased Tylenol dosing and holding statin and other meds Overuse of meds now much improved Drowsiness resolved since minimizing meds Hyponatremia now resolved Vaginal discharge no significant change Edema on Lasix Plan: IRF protocol Home meds Check labs Cardiology consultation for cardiac management while hospitalized is appreciated Hold statin until sees PCP at [place] Minimize Tylenol Minimize all sedating meds Minimize water intake due to mild hyponatremia and patient appears to be high risk for psychogenic polydipsia sodium level now normal Xanax dosing as per PCP Appreciate Dr Shanks and will follow up with Dr. 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
[2019-02-25 18:12] VITALS: BP 111/60
[2019-02-25] MEDS: traZODone 50 MG (DESYREL) TAB PO SCH (20:09)
[2019-02-25] MEDS: ALPRAZolam 1 MG (XANAX) TAB PO SCH (20:09)
[2019-02-25] MEDS: GABAPENTIN 100 MG (NEURONTIN) CAP PO SCH (20:09)
[2019-02-26 05:43] VITALS: BP 112/78
[2019-02-26] MEDS: LEVOTHYROXINE 25 MCG (LEVOTHROID) TAB PO SCH (06:36)
[2019-02-26] MEDS: VITAMIN D3 1,000 UNITS (CHOLECALCIFEROL) TABLET PO SCH (06:36)
[2019-02-26] MEDS: FERROUS SULF 325 MG (IRON) TAB PO SCH (06:36)
[2019-02-26 07:07] LABS: BASOPHILS # (AUTO) 0.1 10^3/uL (0.0-0.1); BASOPHILS % (AUTO) 1 % (0-10); EOSINOPHILS # (AUTO) 0.1 10^3/uL (0.0-0.3); EOSINOPHILS % (AUTO) 2 % (0-10); HEMATOCRIT 41 % (35-52); HEMOGLOBIN 13.1 G/DL (11.5-16.0); LYMPHOCYTES # (AUTO) 1.9 X 10^3 (1.0-4.0); LYMPHOCYTES % (AUTO) 35 % (12-44); MEAN CORPUSCULAR HEMOGLOBIN 32 PG (25-34); MEAN CORPUSCULAR HGB CONC 32 G/DL (32-36); MEAN CORPUSCULAR VOLUME 102 FL (80-99); MEAN PLATELET VOLUME 10.2 FL (7.4-10.4); MONOCYTES # (AUTO) 0.6 X 10^3 (0.0-1.0); MONOCYTES % (AUTO) 10 % (0-12); NEUTROPHILS # (AUTO) 2.8 X 10^3 (1.8-7.8); NEUTROPHILS % (AUTO) 52 % (42-75); PLATELET COUNT 120 10^3/uL (130-400); RED CELL DISTRIBUTION WIDTH 15.9 % (10.0-14.5); WHITE BLOOD COUNT 5.4 10^3/uL (4.3-11.0)
[2019-02-26 07:32] LABS: ALBUMIN 3.4 GM/DL (3.2-4.5); BILIRUBIN,TOTAL 0.8 MG/DL (0.1-1.0); CALCIUM 9.1 MG/DL (8.5-10.1); CREATININE SERUM 0.95 MG/DL (0.60-1.30); MAGNESIUM 2.1 MG/DL (1.8-2.4); POTASSIUM 4.3 MMOL/L (3.6-5.0); TOTAL PROTEIN 5.8 GM/DL (6.4-8.2)
[2019-02-26 08:00] VITALS: BP 101/68
--- NOTE | 2019-02-26 08:00 | NUR ---
DR. ISAAC NOTIFIED OF INCREASED EDEMA IN LOWER EXTREMITIES AND KNEE HIGH TEDS ORDERED. WILL CONTINUE LOW DOSE POTASSIUM DAILY WITHOUT PARAMETERS.
--- NOTE | 2019-02-26 08:09 | PM&R Progress Note ---
Subjective HPI/CC On Admission Date Seen by Provider: February 26, 2019 Time Seen by Provider: 08:15 CC: Falls with debility HPI: This is a 78yoWF of [address] Jauregui at [facility] who presents to the IRF due to multiple falls and recent left shoulder surgery. Apparently she resides at home in [place] and her daughter is involved in her are. She sees Cardiology and Nephrology at [facility]. PLOF was independent. Currently I have restarted all meds and reviewed PMH. Patient denies pain currently and overall she just feels weak and is afraid to walk because she feels like she is falling. Barriers to return home independently will include improved ambulation and resumption of ADL independence. Subjective/Events-last exam Edema persists, sola hose will be placed. Overall feeling good. Potassium is okay and I checked the rest of the labs today. Minimized medication has really helped her overall because she was very much over sedated and over medicated which was causing all the falls. Left shoulder improved after rotator cuff surgery by Dr. Chavez. Bowels are moving. Conferred with RN. Reviewed therapy notes. Review of Systems General: Fatigue Musculoskeletal: arm pain Anxiety Objective Exam Vital Signs Vital Signs Date Time Temp Pulse Resp B/P (MAP) Pulse Ox O2 Delivery O2 Flow Rate FiO2 02/26/19 18:00 97.4 80 20 96/58 (71) 99 Room Air Capillary Refill : General Appearance: No Apparent Distress, WD/WN, Chronically ill HEENT: PERRL/EOMI, Normal ENT Inspection, Pharynx Normal Neck: Full Range of Motion, Normal Inspection, Non Tender, Supple Respiratory: Chest Non Tender, Lungs Clear, Normal Breath Sounds, No Accessory Muscle Use, No Respiratory Distress Cardiovascular: No Edema, No Gallop, No JVD, No Murmur, Normal Peripheral Pulses, Irregularly Irregular Gastrointestinal: Normal Bowel Sounds, No Organomegaly, No Pulsatile Mass, Non Tender, Soft Back: Normal Inspection, No CVA Tenderness, No Vertebral Tenderness Extremity: Normal Capillary Refill, Normal Inspection, Normal Range of Motion, Non Tender, No Calf Tenderness Neurologic/Psychiatric: Alert, Oriented x3, No Motor/Sensory Deficits, 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 FIM Transfers Therapy Code Descriptions/Definitions Functional [place] Measure: 0=Not Assessed/NA 4=Minimal Assistance 1=Total Assistance 5=Supervision or Setup 2=Maximal Assistance 6=Modified [place] 3=Moderate Assistance 7=Complete [place] Therapy Quality Codes: 6 Independent with activity with or without an assistive device 5 Patient requires set up or clean up by helper. Patient completes activity by themselves 4 Supervision or touching assist (CGA). [place] provide cues , steadying assist 3 The helper provides less than half the effort to complete the activity 2 The helper provides more than half the effort to complete the activity 1 Dependent. The helper does all the effort to complete an activity 7 Patient refused to complete or attempt activity 9 The patient did not perform the activity before the current illness or injury 88 Not attempted due to Medical conditions or safety concerns Mental Status/Objective Comprehension: 7 Expression: 7 Social Interaction: 7 Problem Solvin Memory: 6 ADL-Treatment Feedin (Dentures.) Eating (QC): 6 Groomin (Sitting at sink, pt completes by self.) Oral Hygiene (QC): 6 Bathin (Supervision for safety using grabbar, hand held shower and shower bench.) Bathing Location: L Arm, R Arm, L Upper Leg, R Upper Leg, L Lower Leg ( including foot), R Lower Leg (including foot), Chest, Abdomen, Buttocks, Perineal Area Shower/Bathe Self (QC): 4 Upper Extremity Dressin (Supervision to retrieve clothing then pt able to complete by self.) Upper Body Dressing (QC): 4 Lower Extremity Dressin (Supervision to retrieve clothing with FWW and then in standing when hiking pants over hips. Pt complete all other areas by self.) Lower Body Dressing (QC): 4 On/Off Footwear (QC): 6 (Completes in sitting.) Toiletin (Help to get pants up and down but able to wipe with verbal cues for problem solving. Min assist to maintain balance while managing clothing. Used grab bar on R side of toilet. Platform walker. ) Toileting Hygiene (QC): 2 Toilet/Commode Transfer: 4 (Min to CGA assist to get on/off tall toilet, using grab bar. ) Toilet Transfer (QC): 3 Shower: 5 (SBA for safety using FWW, grabbars and shower bench.) Assessment/Plan Assessment and Plan Assess & Plan/Chief Complaint Assessment: Falls Debility Recent shoulder surgery left Bipolar d/o? Anxiety Chronic pain Neuropathy Chronic constipation CRI AF Elevated LFT's improved with decreased Tylenol dosing and holding statin and other meds Overuse of meds now much improved Drowsiness resolved since minimizing meds Hyponatremia now resolved Vaginal discharge no significant change Edema on Lasix Plan: IRF protocol Home meds Check labs Cardiology consultation for cardiac management while hospitalized is appreciated Hold statin until sees PCP at [place] Minimize Tylenol Minimize all sedating meds Minimize water intake due to mild hyponatremia and patient appears to be high risk for psychogenic polydipsia sodium level now normal Xanax dosing as per PCP Appreciate Dr Shanks and will follow up with Dr. 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
--- NOTE | 2019-02-26 08:34 | Occupational Ther Daily Note ---
OT Current Status-Daily Note Subjective Pt sitting up in bed sleeping, woke easily to name. Pt agrees to therapy. Pt c/ o R LE pain and swelling, nrsg in room. Mental Status/Objective Patient Orientation: Person, Place, Time, Situation Therapy Code Descriptions/Definitions Functional [place] Measure: 0=Not Assessed/NA 4=Minimal Assistance 1=Total Assistance 5=Supervision or Setup 2=Maximal Assistance 6=Modified [place] 3=Moderate Assistance 7=Complete [place] ADL-Treatment Pt voiced concerns over transferring into shower, anxiety over the possibility of falling. Discussed techniques and different strategies for transfers. Therapy Code Descriptions/Definitions Functional [place] Measure: 0=Not Assessed/NA 4=Minimal Assistance 1=Total Assistance 5=Supervision or Setup 2=Maximal Assistance 6=Modified [place] 3=Moderate Assistance 7=Complete [place] Therapy Quality Codes: 6 Independent with activity with or without an assistive device 5 Patient requires set up or clean up by helper. Patient completes activity by themselves 4 Supervision or touching assist (CGA). [place] provide cues , steadying assist 3 The helper provides less than half the effort to complete the activity 2 The helper provides more than half the effort to complete the activity 1 Dependent. The helper does all the effort to complete an activity 7 Patient refused to complete or attempt activity 9 The patient did not perform the activity before the current illness or injury 88 Not attempted due to Medical conditions or safety concerns Grooming (FIM): 6 (Sitting at sink, pt able to complete by self.) Oral Hygiene (QC): 6 Bathing (FIM): 5 (Supervision for safety due to pts increased anxiety of falls. ) Bathing Location: L Arm, R Arm, L Upper Leg, R Upper Leg, L Lower Leg ( including foot), R Lower Leg (including foot), Chest, Abdomen, Buttocks, Perineal Area Shower/Bathe Self (QC): 4 Upper Body (FIM): 5 (After set up, pt able to complete dressing.) Upper Body Dressing (QC): 5 Lower Body Dressing (FIM): 5 (After set up, pt able to complete dressing. Supervision in standing to hike pants over hips.) Lower Body Dressing (QC): 4 On/Off Footwear (QC): 6 Shower Transfer(FIM): 5 (Supervision for safety using FWW, shower bench and grabbars.) Other Treatment Pt ambulated fdc to therapy gym, needing recovery break. Ambulated the whole way going back to room using FWW. Arm bike without resistance to increase AROM, strength and activity tolerance for daily functional, 8 min. Resistive pegs completed to increase geological specialist/pinch strength for fine motor daily tasks. After therapy, pt sitting in recliner with feet elevated. Hot pack on shldrs and cold pack on L hip. All needs met in room. OT Short Term Goals Short Term Goals Eating(FIM): 6 Grooming(FIM): 5 Bathing(FIM): 5 Bathing Location: L Arm, R Arm, L Upper Leg, R Upper Leg, L Lower Leg ( including foot), R Lower Leg (including foot), Chest, Abdomen, Buttocks, Perineal Area Upper Body Dressing(FIM): 5 Lower Body Dressing(FIM): 5 Toileting(FIM): 5 Transfers (B,C,W/C) (FIM): 4 (met) Toilet/Commode Transfer(FIM): 5 Tub Transfer(FIM): 5 Shower Transfer(FIM): 5 1=Demonstrate adherence to instructed precautions during ADL tasks. 2=Patient will verbalize/demonstrate understanding of assistive devices/ modifications for ADL. 3=Patient will improve strength/tolerance for activity to enable patient to perform ADL's. OT Assisted Goals Florist'S Decorator Goals Eating (FIM): 6 Eating (QC): 6 Groomin Oral Hygiene (QC): 6 Bathing(FIM): 6 Bathing Location: L Arm, R Arm, L Upper Leg, R Upper Leg, L Lower Leg ( including foot), R Lower Leg (including foot), Chest, Abdomen, Buttocks, Perineal Area Shower/Bathe Self (QC): 6 Upper Body Dressing(FIM): 6 Upper Body Dressing (QC): 6 Lower Body Dressing(FIM): 6 Lower Body Dressing (QC): 6 On/Off Footwear (QC): 6 Toileting(FIM): 6 Toileting Hygiene (QC): 6 Transfers (B,C,W/C) (FIM): 6 Toilet/Commode Transfer(FIM): 6 Toilet/Commode Transfer (QC): 6 Tub Transfer(FIM): 6 Shower Transfer(FIM): 6 Additional Goals: 1-Demonstrate ADL Tasks, 2-Verbalize Understanding, 3- ImproveStrength/[place] 1=Demonstrate adherence to instructed precautions during ADL tasks. 2=Patient will verbalize/demonstrate understanding of assistive devices/ modifications for ADL. 3=Patient will improve strength/tolerance for activity to enable patient to perform ADL's. OT Education/Plan Problem List/Assessment Assessment: Decreased Activ Tolerance, Decreased UE Strength, Impaired Funct Balance, Impaired Self-Care Skills 78 year old female present to OT services secondary to frequent falls at home. pt had recently rotator cuff surgery on 01/24/19. during evaluation pt required total assist for LB dressing, total assist with UB dressing, MAX A for toileting , MIN A for sit to stands. pt presents with functional limitations affecting areas of ADLS and functional transfers with deficits in: decrease overall balance, activity tolerance/ endurance, decrease safety awareness, decrease ability to follow shoulder precautions, impaired IADLs, and decrease overall safety with functional task in sitting and standing. pt would benefit from skilled OT services to increase overall independence with ADLS and functional transfers and to address above mention deficits. Discharge Recommendations Plan/Recommendations: Continue POC Treatment Plan/Plan of Care Patient would benefit from OT for education, treatment and training to promote independence in ADL's, mobility, safety and/or upper extremity function for ADL' s. Plan of Care: ADL Retraining, Caregiver Training, Concurrent Therapy, Functional Mobility, Group Exercise/Act as Ind, Orthotic Fitting/Training, UE Funct Exercise/Act Treatment Duration: March 08, 2019 Frequency: At least 5 of 7 days/Wk (IRF) Estimated Hrs Per Day: 1.5 hours per day Agreement: Yes Rehab Potential: Guarded Time/GCodes Start Time: 08:00 Stop Time: 09:30 Total Time Billed (hr/min): 90 Billed Treatment Time 1 visit-ADL 4 (90 min) EX 2 (30 min) OMID WALSH February 26, 2019 08:34
[2019-02-26] MEDS: FUROSEMIDE 20 MG (LASIX) TAB PO SCH (08:50)
[2019-02-26] MEDS: ASPIRIN 81 MG CHEW (CHILDREN'S ASA) PO SCH (08:50)
[2019-02-26] MEDS: PANTOPRAZOLE 20 MG TABLET (PROTONIX) PO SCH (08:50)
[2019-02-26] MEDS: meTOprolol TARTRATE 25 MG (LOPRESSOR) TABLET PO SCH ×2 (08:51→20:56)
[2019-02-26] MEDS: APIXABAN 2.5 MG (ELIQUIS) TABLET PO SCH ×2 (08:51→20:56)
[2019-02-26] MEDS: ENALAPRIL 2.5 MG (VASOTEC) TAB PO SCH (08:51)
[2019-02-26] MEDS: KCL 10 MEQ TAB (MICRO K) PO SCH (08:51)
[2019-02-26] MEDS: buPROPion SR 150 MG (WELLBUTRIN SR) TAB PO SCH ×2 (08:51→20:56)
--- NOTE | 2019-02-26 09:35 | Progress Note-Cardiology ---
Cardiology SOAP Progress Note Subjective: Sitting up in a chair at the bedside. States she feels her breathing is a "little better". No c/o CP or palpitations. Objective: I&O/Vital Signs 02/26/19 05:43 Temp 96.9 Pulse 91 Resp 18 B/P (MAP) 112/78 (89) Pulse Ox 97 O2 Delivery Room Air 02/26/19 00:00 Intake Total 500 ml Balance 500 ml Weight (Pounds): 153 Weight (Ounces): 9.6 Weight (Calculated Kilograms): 69.647537 Constitutional: AAO x 3, well-developed, well-nourished Respiratory: No accessory muscle use; lungs clear to percussion, lungs clear to auscultation Cardiovascular: irregularly irregular, S1 and S2, systolic murmur (faint DONG at card base) Gastrointestional: soft; No guarding, No rebound, No tenderness; audible bowel sounds Extremities: No clubbing, No cyanosis, No significant edema Neurologic/Psychiatric: oriented x 3, other (4/5 power bilat), grossly intact Skin: No rash on exposed areas, No ulcerations on exposed areas Results/Procedures: Labs Laboratory Tests 02/26/19 05:31: White Blood Count 5.4, Red Blood Count 4.07L, Hemoglobin 13.1, Hematocrit 41, Mean Corpuscular Volume 102H, Mean Corpuscular Hemoglobin 32, Mean Corpuscular Hemoglobin Concent 32, Red Cell Distribution Width 15.9H, Platelet Count 120L, Mean Platelet Volume 10.2, Neutrophils (%) (Auto) 52, Lymphocytes (%) (Auto) 35 , Monocytes (%) (Auto) 10, Eosinophils (%) (Auto) 2, Basophils (%) (Auto) 1, Neutrophils # (Auto) 2.8, Lymphocytes # (Auto) 1.9, Monocytes # (Auto) 0.6, Eosinophils # (Auto) 0.1, Basophils # (Auto) 0.1, Sodium Level 139, Potassium Level 4.3, Chloride Level 105, Carbon Dioxide Level 24, Anion Gap 10, Blood Urea Nitrogen 12, Creatinine 0.95, Estimat Glomerular Filtration Rate 57, BUN/ Creatinine Ratio 13, Glucose Level 80, Calcium Level 9.1, Corrected Calcium 9.6 , Magnesium Level 2.1, Total Bilirubin 0.8, Aspartate Amino Transf (AST/SGOT) 23 , Alanine Aminotransferase (ALT/SGPT) 39, Alkaline Phosphatase 128, Total Protein 5.8L, Albumin 3.4 Microbiology 02/22/19 Genital Culture - Preliminary, Resulted Usual Vaginal Laure A/P: Assessment: Chronic persistent A Fib Ac on chronic systolic CHF Mild to mod cardiomyopathy, probably ischemic. Echo of 02/21/19: LVEF 40-45%, anteroseptal hypokinesis to akinesis, biatrial enlargement, mod to sev MR, sev TR, PASP 25-30 mmHg Mild CAD on card cath of 2016, according to the patient H/o hyperlipidemia Gen weakness, being evaluated and treated by Dr Quintanilla Plan: * Continue apixaban and statin * Continue RODNEY and aldactone * Monitor labs Physician Assessment Physician Assessment Shortness of breath modestly improved. No cp or palp or syncope Cor: irreg Lungs: good bilat air entry, diminished at the bases Ext: no c/c/e A&R * As documented in our note above that I updated (italics) and as noted below * Continue to titrate meds as tolerated by bp * Monitor labs * I spoke with her and explained her CV issues to her and answered questions EMMA BARRERA GEODETIC ENGINEER February 26, 2019 09:35 MOHINI VELASQUEZ MD FACP FAC CCDS February 26, 2019 10:10
[2019-02-26] MEDS: ALPRAZolam 0.5 MG (XANAX) TAB PO SCH (10:31)
--- NOTE | 2019-02-26 11:31 | Physical Therapy Daily Note ---
PT Daily Note-Current Subjective Pt. agrees to Rx. States she feels she is stronger "but still not ready to leave " Pain Location: No Pain Reported Mental Status Patient Orientation: Person, Place, Time, Situation Transfers Therapy Code Descriptions/Definitions Functional [place] Measure: 0=Not Assessed/NA 4=Minimal Assistance 1=Total Assistance 5=Supervision or Setup 2=Maximal Assistance 6=Modified [place] 3=Moderate Assistance 7=Complete [place] Therapy Quality Codes: 6 Independent with activity with or without an assistive device 5 Patient requires set up or clean up by helper. Patient completes activity by themselves 4 Supervision or touching assist (CGA). [place] provide cues , steadying assist 3 The helper provides less than half the effort to complete the activity 2 The helper provides more than half the effort to complete the activity 1 Dependent. The helper does all the effort to complete an activity 7 Patient refused to complete or attempt activity 9 The patient did not perform the activity before the current illness or injury 88 Not attempted due to Medical conditions or safety concerns Transfers (B, C, W/C) (FIM): 6 Scootin Rollin Supine to/from Sit: 6 Sit to/from Stand: 6 Bed to/from Chair: 6 Weight Bearing Patient has rotator cuff precautions on the left shoulder Gait Training Does the Patient Walk?: Yes Gait (FIM): 2 Distance (FIM): 3=289-87 ft (125,100x2,50) Gait Level of Assist: 5 Gait Persons Needed: 1 Gait Assistive Device: FWW slow, SOB and fatigue, some antalgia noted as well Stair Training Stair Training: Handrails/: 2 handrails Stairs (FIM): 1 #of Steps: 2 Stairs: Pattern: Step to in parallel bars with instruction for sequence Exercises Seated Therapy Exercises: Ankle pumps, Sit to stand, Long arc quads, Hip flexion, Hip abd/add Seated Reps: 12 Standing: Hip Abduction, Hamstring curls, Heel/toe raises, Marching, Mini squats Standing Reps: 12 NuStep Minutes: 15 NuStep Workload: 2 Treatments toileting with SBA, Assessment Current Status: Good Progress fatigued and some SOB PT Short Term Goals Short Term Goals Time Frame: February 22, 2019 Transfers (B,C,W/C) (FIM): 4 (met) Gait (FIM): 1 (met) Gait Distance Comment: 20' Gait Level of Assist: 4 Gait Assistive Device: FWW PT Senior Living Goals Curtain [place] Automatic Goals PT Curtain [place] Automatic Goals Time Frame: March 08, 2019 Transfers (B,C,W/C) (FIM): 4 (CGA) Sit to Lying (QC): 4 Lying-Sitting on Side/Bed(QC): 4 Sit to Stand (QC): 4 Rollin Roll Left to Right (QC): 4 Chair/Acd-pu-Hbfad Xfer(QC): 4 Car Transfer (QC): 4 Gait (FIM): 2 Distance: 50' Walk 10 feet (QC): 4 Walk 10ft-Uneven Surface(QC): 4 Walk 50ft with 2 Turns (QC): 4 Gait Level of Assist: 4 Gait Assistive Device: Cane Large Base Quad Stairs (FIM): 1 # of Steps: 1 1 Step (curb) (QC): 4 Stairs Level Of Assist: 4 PT Plan Treatment/Plan Treatment Plan: Continue Plan of Care Treatment Plan: Bed Mobility, Concurrent Therapy, Education, Functional Activity Ashley, Functional Strength, Group Therapy, Gait, Safety, Therapeutic Exercise, Transfers Treatment Duration: March 08, 2019 Frequency: At least 5 of 7 days/Wk (IRF) Estimated Hrs Per Day: 1.5 hours per day Patient and/or Family Agrees t: Yes Safety Risks/Education Patient Education: Gait Training, Transfer Techniques, Steps, Correct Positioning, Disease Process, Safety Issues Teaching Recipient: Patient Teaching Methods: Demonstration, Discussion Response to Teaching: Verbalize Understanding, Return Demonstration, Reinforcement Needed Time/GCodes Time In: 1000 Time Out: 1130 Total Billed Treatment Time: 90 Total Billed Treatment 1,EX35m,GT25, FA30m G Codes Necessary: DEVIN Isaac BACKREST ASSEMBLER February 26, 2019 11:31
--- NOTE | 2019-02-26 13:20 | NUR ---
REQUEST FOR INFO (LAST DISCHARGE SUMMARY) RE-FAXED TO [facility]. UNABLE TO REACH THEIR MEDICAL RECORDS ON PHONE AT THIS TIME.
--- NOTE | 2019-02-26 13:30 | NUR ---
DR. ISAAC NOTIFIED THAT LEFT UPPER LEG/HIP EDEMA WORSE AND MOVING UP TO WAIST AREA. DR. BROWN'S OFFICE NOTIFIED OF CONSULTATION.
--- NOTE | 2019-02-26 13:54 | NUR ---
PATIENT REQUESTING TO TALK TO CLINICAL STAFF ANESTHESIOLOGIST RE: WHAT IS BEST DIET FOR HER AND HOW TO COOK SMALL PORTIONS.
--- NOTE | 2019-02-26 14:45 | NUR ---
INFO RECEIVED FROM [facility] AND PLACED ON CHART.
[2019-02-26 18:00] VITALS: BP 96/58
[2019-02-26] MEDS: traZODone 50 MG (DESYREL) TAB PO SCH (20:55)
[2019-02-26] MEDS: GABAPENTIN 100 MG (NEURONTIN) CAP PO SCH (20:56)
[2019-02-26] MEDS: ALPRAZolam 1 MG (XANAX) TAB PO SCH (21:00)
[2019-02-27] MEDS: VITAMIN D3 1,000 UNITS (CHOLECALCIFEROL) TABLET PO SCH (06:28)
[2019-02-27] MEDS: LEVOTHYROXINE 25 MCG (LEVOTHROID) TAB PO SCH (06:28)
[2019-02-27] MEDS: FERROUS SULF 325 MG (IRON) TAB PO SCH (06:28)
[2019-02-27] MEDS: KCL 10 MEQ TAB (MICRO K) PO SCH (06:28)
[2019-02-27 06:30] VITALS: BP 103/71
[2019-02-27 08:00] VITALS: BP 116/77
[2019-02-27] MEDS: APIXABAN 2.5 MG (ELIQUIS) TABLET PO SCH ×2 (08:06→20:49)
[2019-02-27] MEDS: meTOprolol TARTRATE 25 MG (LOPRESSOR) TABLET PO SCH ×2 (08:06→20:49)
[2019-02-27] MEDS: PANTOPRAZOLE 20 MG TABLET (PROTONIX) PO SCH (08:06)
[2019-02-27] MEDS: ENALAPRIL 2.5 MG (VASOTEC) TAB PO SCH (08:06)
[2019-02-27] MEDS: FUROSEMIDE 20 MG (LASIX) TAB PO SCH (08:06)
[2019-02-27] MEDS: buPROPion SR 150 MG (WELLBUTRIN SR) TAB PO SCH ×2 (08:06→20:49)
--- NOTE | 2019-02-27 08:29 | PM&R Progress Note ---
Subjective HPI/CC On Admission Date Seen by Provider: February 27, 2019 Time Seen by Provider: 08:15 CC: Falls with debility HPI: This is a 78yoWF [address] Jauregui at [facility] who presents to the IRF due to multiple falls and recent left shoulder surgery. Apparently she resides at home in [place] and her daughter is involved in her are. She sees Cardiology and Nephrology at [facility]. PLOF was independent. Currently I have restarted all meds and reviewed PMH. Patient denies pain currently and overall she just feels weak and is afraid to walk because she feels like she is falling. Barriers to return home independently will include improved ambulation and resumption of ADL independence. Subjective/Events-last exam Edema continues but much improved in the upper thighs. Overall no pain is reported today. Doing very well in inpatient rehab. No falls. BP managed by cardiology. Bowels are moving. Conferred with RN. Reviewed therapy notes. Review of Systems General: Fatigue Musculoskeletal: arm pain, leg pain Anxiety Objective Exam Vital Signs Vital Signs Date Time Temp Pulse Resp B/P (MAP) Pulse Ox O2 Delivery O2 Flow Rate FiO2 02/27/19 20:51 90 101/64 (76) 02/27/19 17:48 99.0 20 98 Room Air Capillary Refill : General Appearance: No Apparent Distress, WD/WN, Chronically ill HEENT: PERRL/EOMI, Normal ENT Inspection, Pharynx Normal Neck: Full Range of Motion, Normal Inspection, Non Tender, Supple Respiratory: Chest Non Tender, Lungs Clear, Normal Breath Sounds, No Accessory Muscle Use, No Respiratory Distress Cardiovascular: No Edema, No Gallop, No JVD, No Murmur, Normal Peripheral Pulses, Irregularly Irregular Gastrointestinal: Normal Bowel Sounds, No Organomegaly, No Pulsatile Mass, Non Tender, Soft Back: Normal Inspection, No CVA Tenderness, No Vertebral Tenderness Extremity: Normal Capillary Refill, Normal Inspection, Normal Range of Motion, Non Tender, No Calf Tenderness Neurologic/Psychiatric: Alert, Oriented x3, No Motor/Sensory Deficits, [id number] II- XII Norm as Tested, Depressed Affect, Motor Weakness (generalized weakness 4/5 all extremities), Other (anxious) Skin: Normal Color, Warm/Dry Lymphatic: No Adenopathy Results/Procedures Lab Patient resulted labs reviewed. FIM Transfers Therapy Code Descriptions/Definitions Functional [place] Measure: 0=Not Assessed/NA 4=Minimal Assistance 1=Total Assistance 5=Supervision or Setup 2=Maximal Assistance 6=Modified [place] 3=Moderate Assistance 7=Complete [place] Therapy Quality Codes: 6 Independent with activity with or without an assistive device 5 Patient requires set up or clean up by helper. Patient completes activity by themselves 4 Supervision or touching assist (CGA). [place] provide cues , steadying assist 3 The helper provides less than half the effort to complete the activity 2 The helper provides more than half the effort to complete the activity 1 Dependent. The helper does all the effort to complete an activity 7 Patient refused to complete or attempt activity 9 The patient did not perform the activity before the current illness or injury 88 Not attempted due to Medical conditions or safety concerns Mental Status/Objective Comprehension: 7 Expression: 7 Social Interaction: 7 Problem Solvin Memory: 6 ADL-Treatment Feedin (Dentures.) Eating (QC): 6 Groomin (Sitting at sink, pt able to complete by self.) Oral Hygiene (QC): 6 Bathin (Supervision for safety due to pts increased anxiety of falls.) Bathing Location: L Arm, R Arm, L Upper Leg, R Upper Leg, L Lower Leg ( including foot), R Lower Leg (including foot), Chest, Abdomen, Buttocks, Perineal Area Shower/Bathe Self (QC): 4 Upper Extremity Dressin (After set up, pt able to complete dressing.) Upper Body Dressing (QC): 5 Lower Extremity Dressin (After set up, pt able to complete dressing. Supervision in standing to hike pants over hips.) Lower Body Dressing (QC): 4 On/Off Footwear (QC): 6 Toiletin (Help to get pants up and down but able to wipe with verbal cues for problem solving. Min assist to maintain balance while managing clothing. Used grab bar on R side of toilet. Platform walker. ) Toileting Hygiene (QC): 2 Toilet/Commode Transfer: 4 (Min to CGA assist to get on/off tall toilet, using grab bar. ) Toilet Transfer (QC): 3 Shower: 5 (Supervision for safety using FWW, shower bench and grabbars.) Assessment/Plan Assessment and Plan Assess & Plan/Chief Complaint Assessment: Falls Debility Recent shoulder surgery left Bipolar d/o? Anxiety Chronic pain Neuropathy Chronic constipation CRI AF Elevated LFT's improved with decreased Tylenol dosing and holding statin and other meds Overuse of meds now much improved Drowsiness resolved since minimizing meds Hyponatremia now resolved Vaginal discharge no significant change Edema on Lasix Plan: IRF protocol Home meds Check labs Cardiology consultation for cardiac management while hospitalized is appreciated Hold statin until sees PCP at [place] Minimize Tylenol Minimize all sedating meds Minimize water intake due to mild hyponatremia and patient appears to be high risk for psychogenic polydipsia sodium level now normal Xanax dosing as per PCP Appreciate Dr Shanks and will follow up with Dr. 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
--- NOTE | 2019-02-27 09:10 | Occupational Ther Daily Note ---
OT Current Status-Daily Note Subjective Pt alert, lying in bed. Pt agrees to therapy. No c/o pain. Swelling in hips, thighs and feet decreased, lower legs still swollen skin shiny. Nrsg and physician aware. Mental Status/Objective Patient Orientation: Person, Place, Time, Situation Therapy Code Descriptions/Definitions Functional [place] Measure: 0=Not Assessed/NA 4=Minimal Assistance 1=Total Assistance 5=Supervision or Setup 2=Maximal Assistance 6=Modified [place] 3=Moderate Assistance 7=Complete [place] ADL-Treatment Pt declined shower, requested sponge bath and changing clothing. Pt ambulated to bathroom to sit in front of sink to complete bathing and dressing with supervision for safety. Pt completed grooming sitting at sink. Pt took increased time to complete tasks due to multiple recovery breaks. Pt then ambulated to large shower room to work on tub transfer. With light CGA for safety, pt used grabbar to step into tub. No LOB noted and pt able to complete after skilled instruction. After therapy, pt sitting in recliner with LE's elevated, call light/phone in reach. All needs met in room. Therapy Code Descriptions/Definitions Functional [place] Measure: 0=Not Assessed/NA 4=Minimal Assistance 1=Total Assistance 5=Supervision or Setup 2=Maximal Assistance 6=Modified [place] 3=Moderate Assistance 7=Complete [place] Therapy Quality Codes: 6 Independent with activity with or without an assistive device 5 Patient requires set up or clean up by helper. Patient completes activity by themselves 4 Supervision or touching assist (CGA). [place] provide cues , steadying assist 3 The helper provides less than half the effort to complete the activity 2 The helper provides more than half the effort to complete the activity 1 Dependent. The helper does all the effort to complete an activity 7 Patient refused to complete or attempt activity 9 The patient did not perform the activity before the current illness or injury 88 Not attempted due to Medical conditions or safety concerns Grooming (FIM): 6 Oral Hygiene (QC): 6 Upper Body (FIM): 5 Upper Body Dressing (QC): 5 Lower Body Dressing (FIM): 5 Lower Body Dressing (QC): 4 On/Off Footwear (QC): 6 Tub Transfer(FIM): 4 OT Short Term Goals Short Term Goals Eating(FIM): 6 Grooming(FIM): 5 Bathing(FIM): 5 Bathing Location: L Arm, R Arm, L Upper Leg, R Upper Leg, L Lower Leg ( including foot), R Lower Leg (including foot), Chest, Abdomen, Buttocks, Perineal Area Upper Body Dressing(FIM): 5 Lower Body Dressing(FIM): 5 Toileting(FIM): 5 Transfers (B,C,W/C) (FIM): 4 (met) Toilet/Commode Transfer(FIM): 5 Tub Transfer(FIM): 5 Shower Transfer(FIM): 5 1=Demonstrate adherence to instructed precautions during ADL tasks. 2=Patient will verbalize/demonstrate understanding of assistive devices/ modifications for ADL. 3=Patient will improve strength/tolerance for activity to enable patient to perform ADL's. OT Municipal Bond Trader Goals Municipal Bond Trader Goals Eating (FIM): 6 Eating (QC): 6 Groomin Oral Hygiene (QC): 6 Bathing(FIM): 6 Bathing Location: L Arm, R Arm, L Upper Leg, R Upper Leg, L Lower Leg ( including foot), R Lower Leg (including foot), Chest, Abdomen, Buttocks, Perineal Area Shower/Bathe Self (QC): 6 Upper Body Dressing(FIM): 6 Upper Body Dressing (QC): 6 Lower Body Dressing(FIM): 6 Lower Body Dressing (QC): 6 On/Off Footwear (QC): 6 Toileting(FIM): 6 Toileting Hygiene (QC): 6 Transfers (B,C,W/C) (FIM): 6 Toilet/Commode Transfer(FIM): 6 Toilet/Commode Transfer (QC): 6 Tub Transfer(FIM): 6 Shower Transfer(FIM): 6 Additional Goals: 1-Demonstrate ADL Tasks, 2-Verbalize Understanding, 3- ImproveStrength/Ashley 1=Demonstrate adherence to instructed precautions during ADL tasks. 2=Patient will verbalize/demonstrate understanding of assistive devices/ modifications for ADL. 3=Patient will improve strength/tolerance for activity to enable patient to perform ADL's. OT Education/Plan Problem List/Assessment Assessment: Decreased Activ Tolerance, Impaired Funct Balance, Impaired Self- Care Skills 78 year old female present to OT services secondary to frequent falls at home. pt had recently rotator cuff surgery on 01/24/19. during evaluation pt required total assist for LB dressing, total assist with UB dressing, MAX A for toileting , MIN A for sit to stands. pt presents with functional limitations affecting areas of ADLS and functional transfers with deficits in: decrease overall balance, activity tolerance/ endurance, decrease safety awareness, decrease ability to follow shoulder precautions, impaired IADLs, and decrease overall safety with functional task in sitting and standing. pt would benefit from skilled OT services to increase overall independence with ADLS and functional transfers and to address above mention deficits. Discharge Recommendations Plan/Recommendations: Continue POC Treatment Plan/Plan of Care Patient would benefit from OT for education, treatment and training to promote independence in ADL's, mobility, safety and/or upper extremity function for ADL' s. Plan of Care: ADL Retraining, Caregiver Training, Concurrent Therapy, Functional Mobility, Group Exercise/Act as Ind, Orthotic Fitting/Training, UE Funct Exercise/Act Treatment Duration: March 08, 2019 Frequency: At least 5 of 7 days/Wk (IRF) Estimated Hrs Per Day: 1.5 hours per day Agreement: Yes Rehab Potential: Guarded Time/GCodes Start Time: 08:00 Stop Time: 09:00 Total Time Billed (hr/min): 60 Billed Treatment Time 1 visit-ADL 4 (60 min) OMID WALSH February 27, 2019 09:10
--- NOTE | 2019-02-27 10:00 | NUR ---
Gail BARRERA ARPN HERE AND INFORMED OF LEG SWELLING. EXTRA LOW DOSE LASIX TODAY.
--- NOTE | 2019-02-27 10:56 | Progress Note-Cardiology ---
Cardiology SOAP Progress Note Subjective: Up with PT working on the exercise equipment. Denies any c/o CP, palpitations, syncope or near syncope. Feels breathing is at its usual baseline. Objective: I&O/Vital Signs 02/27/19 02/27/19 06:30 08:55 Temp 97.6 Pulse 86 Resp 20 B/P (MAP) 103/71 (82) Pulse Ox 98 O2 Delivery Room Air Room Air 02/27/19 00:00 Intake Total 820 ml Balance 820 ml Weight (Pounds): 153 Weight (Ounces): 9.6 Weight (Calculated Kilograms): 69.873231 Constitutional: AAO x 3, well-developed, well-nourished Respiratory: No accessory muscle use; lungs clear to percussion, lungs clear to auscultation Cardiovascular: irregularly irregular, S1 and S2, systolic murmur (faint DONG at card base) Gastrointestional: soft; No guarding, No rebound, No tenderness; audible bowel sounds Extremities: No clubbing, No cyanosis; significant edema (Mod LE swelling up to hips) Neurologic/Psychiatric: oriented x 3, other (4/5 power bilat), grossly intact Skin: No rash on exposed areas, No ulcerations on exposed areas Results/Procedures: Labs Microbiology 02/22/19 Genital Culture - Final, Complete Usual Vaginal Laure A/P: Assessment: Chronic persistent A Fib with a somewhat rapid vent rate Ac on chronic systolic CHF Mild to mod cardiomyopathy, probably ischemic. Echo of 02/21/19: LVEF 40-45%, anteroseptal hypokinesis to akinesis, biatrial enlargement, mod to sev MR, sev TR, PASP 25-30 mmHg Mild CAD on card cath of 2016, according to the patient H/o hyperlipidemia Gen weakness, being evaluated and treated by Dr Quintanilla Plan: * Continue apixaban and statin * Continue RODNEY and aldactone * Increased bilat LE swelling up to hips - give additional Lasix today * Thigh high compression stockings * Monitor labs Physician Assessment Physician Assessment Gen weakness and malaise No cp or palp or syncope or shortness of breath at rest Lungs: dec bs at bases Cor: irreg with rate approx 100 bpm (at rest, by auscultation) Ext: no c/c/e A&R * As documented in our note above that I updated (italics) and as noted below * Complex management due to multiple comorbidities, acute and chronic * Unable to increase bb or RODNEY-inhib due to low bp * Add dig in effort to better control heart rate * Monitor labs * I reviewed her records from [facility] * I discussed with her in detail her CV issues and our treatment plan EMMA BARRERA BUSINESS DEVELOPMENT ASSISTANT February 27, 2019 10:56 MOHINI VELASQUEZ MD FACP FAC CCDS February 27, 2019 12:54
[2019-02-27] MEDS ORDERED: FUROSEMIDE 20 MG (LASIX) TAB PO NR (11:00)
--- NOTE | 2019-02-27 11:09 | Physical Therapy Daily Note ---
PT Daily Note-Current Subjective Pt. agrees to Rx and states she is feeling well and hopes to go home on . "I think this is the best Janna walked and the furthest Janna walked" Pain Location: No Pain Reported Mental Status Patient Orientation: Normal For Age Transfers Therapy Code Descriptions/Definitions Functional [place] Measure: 0=Not Assessed/NA 4=Minimal Assistance 1=Total Assistance 5=Supervision or Setup 2=Maximal Assistance 6=Modified [place] 3=Moderate Assistance 7=Complete [place] Therapy Quality Codes: 6 Independent with activity with or without an assistive device 5 Patient requires set up or clean up by helper. Patient completes activity by themselves 4 Supervision or touching assist (CGA). [place] provide cues , steadying assist 3 The helper provides less than half the effort to complete the activity 2 The helper provides more than half the effort to complete the activity 1 Dependent. The helper does all the effort to complete an activity 7 Patient refused to complete or attempt activity 9 The patient did not perform the activity before the current illness or injury 88 Not attempted due to Medical conditions or safety concerns Transfers (B, C, W/C) (FIM): 6 Scootin Rollin Supine to/from Sit: 6 Sit to/from Stand: 6 Bed to/from Chair: 6 Weight Bearing Patient has rotator cuff precautions on the left shoulder Gait Training Does the Patient Walk?: Yes Gait (FIM): 5 Distance (FIM): 3=150 ft (x2) Gait Level of Assist: 5 Gait Persons Needed: 1 Gait Assistive Device: FWW near 6 or p ad ki, no LOB Stair Training Stair Training: Handrails/: 2 handrails Stairs (FIM): 2 #of Steps: 4 Stairs: Pattern: Step to Level of Assist: 4 Exercises Supine Ex: Ankle pumps, Quad Set, Rolling, Glut sets, Heel Slides, Short Arc Quads, Scooting, Straight leg raise, Hip abd/add Supine Reps: 15 NuStep Minutes: 10 NuStep Workload: 2 Assessment Current Status: Good Progress meets goals PT Short Term Goals Short Term Goals Time Frame: February 22, 2019 Transfers (B,C,W/C) (FIM): 4 (met) Gait (FIM): 1 (met) Gait Distance Comment: 20' Gait Level of Assist: 4 Gait Assistive Device: FWW PT Geological Engineering Teacher Goals Snf Goals PT Snf Goals Time Frame: March 08, 2019 Transfers (B,C,W/C) (FIM): 4 (CGA) Sit to Lying (QC): 4 Lying-Sitting on Side/Bed(QC): 4 Sit to Stand (QC): 4 Rollin Roll Left to Right (QC): 4 Chair/Fxg-ta-Vmgto Xfer(QC): 4 Car Transfer (QC): 4 Gait (FIM): 2 Distance: 50' Walk 10 feet (QC): 4 Walk 10ft-Uneven Surface(QC): 4 Walk 50ft with 2 Turns (QC): 4 Gait Level of Assist: 4 Gait Assistive Device: Cane Large Base Quad Stairs (FIM): 1 # of Steps: 1 1 Step (curb) (QC): 4 Stairs Level Of Assist: 4 PT Plan Treatment/Plan Treatment Plan: Continue Plan of Care Treatment Plan: Bed Mobility, Concurrent Therapy, Education, Functional Activity Ashley, Functional Strength, Group Therapy, Gait, Safety, Therapeutic Exercise, Transfers Treatment Duration: March 08, 2019 Frequency: At least 5 of 7 days/Wk (IRF) Estimated Hrs Per Day: 1.5 hours per day Patient and/or Family Agrees t: Yes Safety Risks/Education Patient Education: Gait Training, Transfer Techniques, Steps, Correct Positioning, Disease Process, Safety Issues Teaching Recipient: Patient Teaching Methods: Demonstration, Discussion Response to Teaching: Verbalize Understanding, Return Demonstration, Reinforcement Needed Time/GCodes Time In: 1000 Time Out: 1100 Total Billed Treatment Time: 60 Total Billed Treatment 1,EX30m,GT15m,FA15m G Codes Necessary: DEVIN Isaac MANAGER MEDICARE February 27, 2019 11:09
[2019-02-27] MEDS: ALPRAZolam 0.5 MG (XANAX) TAB PO SCH (11:18)
--- NOTE | 2019-02-27 13:00 | NUR ---
DR. VELASQUEZ SAW PATIENT AND WILL START ON LANOXIN DUE TO MILD TACHYCARDIA. DR. VELASQUEZ SAW [facility].
[2019-02-27] MEDS ORDERED: DIGOXIN 0.125 MG (LANOXIN) TAB PO NR (13:15)
--- NOTE | 2019-02-27 14:31 | Therapy Group Daily Note ---
Therapy Daily Group Note Patient Education Topic Home Safety Exercises LE Seated Exercise, UE Exercise Session Ratio (pt:therapist): 3:1 Goal of Session: Education on ARU Expectations, UE/LE Strengthing Goal Met for this Session: Yes Pt Benefit of Group: Contributions to Others, Improved Cognition, Recognition of Peers, Socialization Other/Notes Pt. participated in group PT OT session this date . Pt. came and went via w/c and required mod to min assist in out w/c and bed. Pt. was pleasant and social and shared her name, current resident city and fun question answer with each volley/ball she caught. Pts interacted and laughed . Volleyball with net and pts divided on each side to promote hand/eye coordination, gross motor activity for increased activity tolerance. Volley game elicited core strength while engaging UE coordination. Pt. to room after session with leong at hand and needs met Start Time: 13:00 Stop Time: 14:10 Total Billed Treatment Time: 70 Total Billed Treatment 1,GRP DEVIN HENDERSON HEDIS ANALYST February 27, 2019 14:31
[2019-02-27 17:48] VITALS: BP 100/65
[2019-02-27] MEDS: traZODone 50 MG (DESYREL) TAB PO SCH (20:49)
[2019-02-27] MEDS: ALPRAZolam 1 MG (XANAX) TAB PO SCH (20:49)
[2019-02-27] MEDS: GABAPENTIN 100 MG (NEURONTIN) CAP PO SCH (20:49)
[2019-02-27 20:51] VITALS: BP 101/64
[2019-02-28 05:50] VITALS: BP 116/86
[2019-02-28] MEDS: VITAMIN D3 1,000 UNITS (CHOLECALCIFEROL) TABLET PO SCH (05:52)
[2019-02-28] MEDS: LEVOTHYROXINE 25 MCG (LEVOTHROID) TAB PO SCH (05:52)
[2019-02-28] MEDS: KCL 10 MEQ TAB (MICRO K) PO SCH (05:53)
[2019-02-28] MEDS: FERROUS SULF 325 MG (IRON) TAB PO SCH (05:53)
[2019-02-28 06:53] LABS: BUN/CREATININE RATIO 14; CALCIUM 8.8 MG/DL (8.5-10.1); CARBON DIOXIDE 24 MMOL/L (21-32); CHLORIDE 104 MMOL/L (98-107); CREATININE SERUM 0.87 MG/DL (0.60-1.30); GFR ESTIMATED > 60; GLUCOSE 82 MG/DL (70-105); SODIUM 137 MMOL/L (135-145)
--- NOTE | 2019-02-28 08:37 | Occupational Ther Daily Note ---
OT Current Status-Daily Note Subjective Pt alert, lying in bed. Pt agrees to therapy. No c/o pain at this time. Mental Status/Objective Patient Orientation: Person, Place, Time, Situation Therapy Code Descriptions/Definitions Functional [place] Measure: 0=Not Assessed/NA 4=Minimal Assistance 1=Total Assistance 5=Supervision or Setup 2=Maximal Assistance 6=Modified [place] 3=Moderate Assistance 7=Complete [place] ADL-Treatment Pt agrees to shower. Pt takes increased time to complete tasks due to multiple recovery breaks, time has shortened to recover. Pt will take time to think about what needs to be done before initiating ADL tasks. Therapy Code Descriptions/Definitions Functional [place] Measure: 0=Not Assessed/NA 4=Minimal Assistance 1=Total Assistance 5=Supervision or Setup 2=Maximal Assistance 6=Modified [place] 3=Moderate Assistance 7=Complete [place] Therapy Quality Codes: 6 Independent with activity with or without an assistive device 5 Patient requires set up or clean up by helper. Patient completes activity by themselves 4 Supervision or touching assist (CGA). [place] provide cues , steadying assist 3 The helper provides less than half the effort to complete the activity 2 The helper provides more than half the effort to complete the activity 1 Dependent. The helper does all the effort to complete an activity 7 Patient refused to complete or attempt activity 9 The patient did not perform the activity before the current illness or injury 88 Not attempted due to Medical conditions or safety concerns Eating (FIM): 6 (Dentures. Pt able to set self up and use regular utensils to eat with.) Eating (QC): 6 Grooming (FIM): 6 (Sitting at sink, pt is able to complete tasks.) Oral Hygiene (QC): 6 Bathing (FIM): 6 (Using grabbar, shower bench and hand held shower pt able to complete by self.) Bathing Location: L Arm, R Arm, L Upper Leg, R Upper Leg, L Lower Leg ( including foot), R Lower Leg (including foot), Chest, Abdomen, Buttocks, Perineal Area Shower/Bathe Self (QC): 6 Upper Body (FIM): 6 (Using FWW to retrieve clothing pt able to complete by self.) Upper Body Dressing (QC): 6 Lower Body Dressing (FIM): 6 (Retrieves clothing with FWW and dons/doffs by self. Safety concerns) Lower Body Dressing (QC): 6 On/Off Footwear (QC): 6 Toileting (FIM): 6 (Pt has demonstrated ability to complete task using FWW and grabbars.) Toileting Hygiene (QC): 6 Transfers (B, C, W/C) (FIM): 6 (Using FWW.) Toilet/Commode Transfer (FIM): 6 (Pt has demonstrated that ability to complete by using FWW and grabbars.) Toilet Transfer (QC): 6 Tub Transfer(FIM): 6 (Able to complete using grabbars and shower seat. Safety concerns) Shower Transfer(FIM): 6 (Using FWW, grabbars and shower bench.) Other Treatment Pt completed arm bike for 15 min without resistance due to protocol, increasing strength and activity tolerance for daily functional tasks. After therapy, pt sitting in recliner with call light/phone in reach. All needs met in room. OT Short Term Goals Short Term Goals Eating(FIM): 6 Grooming(FIM): 5 Bathing(FIM): 5 Bathing Location: L Arm, R Arm, L Upper Leg, R Upper Leg, L Lower Leg ( including foot), R Lower Leg (including foot), Chest, Abdomen, Buttocks, Perineal Area Upper Body Dressing(FIM): 5 Lower Body Dressing(FIM): 5 Toileting(FIM): 5 Transfers (B,C,W/C) (FIM): 4 (met) Toilet/Commode Transfer(FIM): 5 Tub Transfer(FIM): 5 Shower Transfer(FIM): 5 1=Demonstrate adherence to instructed precautions during ADL tasks. 2=Patient will verbalize/demonstrate understanding of assistive devices/ modifications for ADL. 3=Patient will improve strength/tolerance for activity to enable patient to perform ADL's. OT Repair Miller Goals Half-Way Goals Eating (FIM): 6 (met-02/28/19) Eating (QC): 6 (met-02/28/19) Groomin (met-02/28/19) Oral Hygiene (QC): 6 (met-02/28/19) Bathing(FIM): 6 (met-02/28/19) Bathing Location: L Arm, R Arm, L Upper Leg, R Upper Leg, L Lower Leg ( including foot), R Lower Leg (including foot), Chest, Abdomen, Buttocks, Perineal Area Shower/Bathe Self (QC): 6 (met-02/28/19) Upper Body Dressing(FIM): 6 (met-02/28/19) Upper Body Dressing (QC): 6 (met-02/28/19) Lower Body Dressing(FIM): 6 (met-02/28/19) Lower Body Dressing (QC): 6 (met-02/28/19) On/Off Footwear (QC): 6 (met-02/28/19) Toileting(FIM): 6 (met-02/28/19) Toileting Hygiene (QC): 6 (met-02/28/19) Transfers (B,C,W/C) (FIM): 6 (met-02/28/19) Toilet/Commode Transfer(FIM): 6 (met-02/28/19) Toilet/Commode Transfer (QC): 6 (met-02/28/19) Tub Transfer(FIM): 6 (met-02/28/19) Shower Transfer(FIM): 6 Additional Goals: 1-Demonstrate ADL Tasks, 2-Verbalize Understanding, 3- ImproveStrength/Ashley 1=Demonstrate adherence to instructed precautions during ADL tasks. 2=Patient will verbalize/demonstrate understanding of assistive devices/ modifications for ADL. 3=Patient will improve strength/tolerance for activity to enable patient to perform ADL's. OT Education/Plan Problem List/Assessment 78 year old female present to OT services secondary to frequent falls at home. pt had recently rotator cuff surgery on 01/24/19. during evaluation pt required total assist for LB dressing, total assist with UB dressing, MAX A for toileting , MIN A for sit to stands. pt presents with functional limitations affecting areas of ADLS and functional transfers with deficits in: decrease overall balance, activity tolerance/ endurance, decrease safety awareness, decrease ability to follow shoulder precautions, impaired IADLs, and decrease overall safety with functional task in sitting and standing. pt would benefit from skilled OT services to increase overall independence with ADLS and functional transfers and to address above mention deficits. Discharge Recommendations Plan/Recommendations: Continue POC Therapy D/C Recommendations: Occupational Therapy Home Care Treatment Plan/Plan of Care Patient would benefit from OT for education, treatment and training to promote independence in ADL's, mobility, safety and/or upper extremity function for ADL' s. Plan of Care: ADL Retraining, Caregiver Training, Concurrent Therapy, Functional Mobility, Group Exercise/Act as Ind, Orthotic Fitting/Training, UE Funct Exercise/Act Treatment Duration: March 08, 2019 Frequency: At least 5 of 7 days/Wk (IRF) Estimated Hrs Per Day: 1.5 hours per day Agreement: Yes Rehab Potential: Guarded Time/GCodes Start Time: 08:15 Stop Time: 09:45 Total Time Billed (hr/min): 90 Billed Treatment Time 1 visit-ADL 5 (70 min) EX 1 (20 min) OMID WALSH February 28, 2019 08:37
--- NOTE | 2019-02-28 08:38 | PM&R Progress Note ---
Subjective HPI/CC On Admission Date Seen by Provider: February 28, 2019 Time Seen by Provider: 08:15 CC: Falls with debility HPI: This is a 78[address]WF [address] Jauregui at [facility] who presents to the IRF due to multiple falls and recent left shoulder surgery. Apparently she resides at home in [place] and her daughter is involved in her are. She sees Cardiology and Nephrology at [facility]. PLOF was independent. Currently I have restarted all meds and reviewed PMH. Patient denies pain currently and overall she just feels weak and is afraid to walk because she feels like she is falling. Barriers to return home independently will include improved ambulation and resumption of ADL independence. Subjective/Events-last exam Dr. Solo has been consulted as an outpatient follow up about the hip issue Dr. Herring ordered a BMP that was elevated at [address] hoes are improving the lower extremity edema Overall improving dramatically and will DC home upon completion of inpatient therapy Denies any pain Didn't sleep the greatest last night Conferred with RN Reviewed therapy notes DC planned for tomorrow and she is thrilled with this plan Review of Systems General: Fatigue Musculoskeletal: leg pain Anxiety Objective Exam Vital Signs Vital Signs Date Time Temp Pulse Resp B/P (MAP) Pulse Ox O2 Delivery O2 Flow Rate FiO2 02/28/19 17:13 98.2 92 16 96/61 (73) 98 Room Air Capillary Refill : General Appearance: No Apparent Distress, WD/WN, Chronically ill HEENT: PERRL/EOMI, Normal ENT Inspection, Pharynx Normal Neck: Full Range of Motion, Normal Inspection, Non Tender, Supple Respiratory: Chest Non Tender, Lungs Clear, Normal Breath Sounds, No Accessory Muscle Use, No Respiratory Distress Cardiovascular: No Edema, No Gallop, No JVD, No Murmur, Normal Peripheral Pulses, Irregularly Irregular Gastrointestinal: Normal Bowel Sounds, No Organomegaly, No Pulsatile Mass, Non Tender, Soft Back: Normal Inspection, No CVA Tenderness, No Vertebral Tenderness Extremity: Normal Capillary Refill, Normal Inspection, Normal Range of Motion, Non Tender, No Calf Tenderness Neurologic/Psychiatric: Alert, Oriented x3, No Motor/Sensory Deficits, disaster response director II- XII Norm as Tested, Depressed Affect, Motor Weakness (generalized weakness 4/5 all extremities), Other (anxious) Skin: Normal Color, Warm/Dry Lymphatic: No Adenopathy Results/Procedures Lab Laboratory Tests 02/28/19 06:15 Patient resulted labs reviewed. FIM Transfers Therapy Code Descriptions/Definitions Functional [place] Measure: 0=Not Assessed/NA 4=Minimal Assistance 1=Total Assistance 5=Supervision or Setup 2=Maximal Assistance 6=Modified [place] 3=Moderate Assistance 7=Complete [place] Therapy Quality Codes: 6 Independent with activity with or without an assistive device 5 Patient requires set up or clean up by helper. Patient completes activity by themselves 4 Supervision or touching assist (CGA). [place] provide cues , steadying assist 3 The helper provides less than half the effort to complete the activity 2 The helper provides more than half the effort to complete the activity 1 Dependent. The helper does all the effort to complete an activity 7 Patient refused to complete or attempt activity 9 The patient did not perform the activity before the current illness or injury 88 Not attempted due to Medical conditions or safety concerns Mental Status/Objective Comprehension: 7 Expression: 7 Social Interaction: 7 Problem Solvin Memory: 6 ADL-Treatment Feedin (Dentures. Pt able to set self up and use regular utensils to eat with.) Eating (QC): 6 Groomin (Sitting at sink, pt is able to complete tasks.) Oral Hygiene (QC): 6 Bathin (Using grabbar, shower bench and hand held shower pt able to complete by self.) Bathing Location: L Arm, R Arm, L Upper Leg, R Upper Leg, L Lower Leg ( including foot), R Lower Leg (including foot), Chest, Abdomen, Buttocks, Perineal Area Shower/Bathe Self (QC): 6 Upper Extremity Dressin (Using FWW to retrieve clothing pt able to complete by self.) Upper Body Dressing (QC): 5 Lower Extremity Dressin Lower Body Dressing (QC): 4 On/Off Footwear (QC): 6 Toiletin (Help to get pants up and down but able to wipe with verbal cues for problem solving. Min assist to maintain balance while managing clothing. Used grab bar on R side of toilet. Platform walker. ) Toileting Hygiene (QC): 2 Toilet/Commode Transfer: 4 (Min to CGA assist to get on/off tall toilet, using grab bar. ) Toilet Transfer (QC): 3 Tub: 4 Shower: 5 (Supervision for safety using FWW, shower bench and grabbars.) Assessment/Plan Assessment and Plan Assess & Plan/Chief Complaint Assessment: Falls Debility Recent shoulder surgery left Bipolar d/o? Anxiety Chronic pain Neuropathy Chronic constipation CRI AF Elevated LFT's improved with decreased Tylenol dosing and holding statin and other meds Overuse of meds now much improved Drowsiness resolved since minimizing meds Hyponatremia now resolved Vaginal discharge no significant change Edema on Lasix Plan: IRF protocol Home meds Check labs Cardiology consultation for cardiac management while hospitalized is appreciated Hold statin until sees PCP at [place] Minimize Tylenol Minimize all sedating meds Minimize water intake due to mild hyponatremia and patient appears to be high risk for psychogenic polydipsia sodium level now normal Xanax dosing as per PCP Appreciate Dr Shanks and noted normal vaginal cary Reviewed labs [place] home tomorrow (1) Debility (2) Thrombocytopenia (3) Overuse of medication (4) Drowsiness (5) Atrial fibrillation (6) Anticoagulated (7) Elevated liver enzymes (8) Fall on same level (9) Falls (10) Weakness (11) Bipolar 1 disorder (12) Hyponatremia (13) Insomnia (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
[2019-02-28] MEDS: APIXABAN 2.5 MG (ELIQUIS) TABLET PO SCH ×2 (08:56→20:15)
[2019-02-28] MEDS: FUROSEMIDE 20 MG (LASIX) TAB PO SCH (08:56)
[2019-02-28] MEDS: meTOprolol TARTRATE 25 MG (LOPRESSOR) TABLET PO SCH ×2 (08:56→20:15)
[2019-02-28] MEDS: ENALAPRIL 2.5 MG (VASOTEC) TAB PO SCH (08:56)
[2019-02-28] MEDS: PANTOPRAZOLE 20 MG TABLET (PROTONIX) PO SCH (08:56)
[2019-02-28] MEDS: ASPIRIN 81 MG CHEW (CHILDREN'S ASA) PO SCH (08:56)
[2019-02-28] MEDS: buPROPion SR 150 MG (WELLBUTRIN SR) TAB PO SCH ×2 (08:56→20:16)
[2019-02-28 08:58] VITALS: BP 129/96
[2019-02-28] MEDS ORDERED: DIGOXIN 62.5 MCG (LANOXIN) TAB PO SCH (09:00)
--- NOTE | 2019-02-28 09:40 | Progress Note-Cardiology ---
Cardiology SOAP Progress Note Subjective: Persistent weakness and exertional shortness of breath No cp or palp or syncope Objective: I&O/Vital Signs 02/28/19 02/28/19 05:50 08:58 Temp 98.9 Pulse 94 105 Resp 18 B/P (MAP) 116/86 (96) 129/96 (107) Pulse Ox 95 98 O2 Delivery Room Air Room Air 02/28/19 00:00 Intake Total 1120 ml Balance 1120 ml Weight (Pounds): 153 Weight (Ounces): 9.6 Weight (Calculated Kilograms): 69.635694 Constitutional: AAO x 3, well-developed, well-nourished Respiratory: No accessory muscle use; lungs clear to percussion, lungs clear to auscultation Cardiovascular: irregularly irregular, S1 and S2, systolic murmur (faint DONG at card base) Gastrointestional: soft; No guarding, No rebound, No tenderness; audible bowel sounds Extremities: No clubbing, No cyanosis; significant edema (Mod LE swelling up to hips) Neurologic/Psychiatric: oriented x 3, other (4/5 power bilat), grossly intact Skin: No rash on exposed areas, No ulcerations on exposed areas Results/Procedures: Labs Laboratory Tests 02/28/19 06:15: Sodium Level 137, Potassium Level 4.0, Chloride Level 104, Carbon Dioxide Level 24, Anion Gap 9, Blood Urea Nitrogen 12, Creatinine 0.87, Estimat Glomerular Filtration Rate > 60, BUN/Creatinine Ratio 14, Glucose Level 82, Calcium Level 8.8, Magnesium Level 2.0, B-Type Natriuretic Peptide 705.8H, Digoxin Level < 0.30L Microbiology 02/22/19 Genital Culture - Final, Complete Usual Vaginal Laure A/P: Assessment: Chronic persistent A Fib with a somewhat rapid vent rate Ac on chronic systolic CHF Mild to mod cardiomyopathy, probably ischemic. Echo of 02/21/19: LVEF 40-45%, anteroseptal hypokinesis to akinesis, biatrial enlargement, mod to sev MR, sev TR, PASP 25-30 mmHg Mild CAD on card cath in or around 2012, according to the patient H/o hyperlipidemia Gen weakness, being evaluated and treated by Dr Quintanilla Plan: * Continue heart failure regimen * Not able to increase bb or RODNEY-inhib because of low bp * Increase dig * Monitor labs * I spoke with her and discussed our CV diagnoses and management plan MOHINI VELASQUEZ MD FACP FAC CCDS February 28, 2019 09:40
[2019-02-28] MEDS: ALPRAZolam 0.5 MG (XANAX) TAB PO SCH (10:23)
[2019-02-28] MEDS: ACETAMINOPHEN 325 MG TABLET PO PRN (10:23)
--- NOTE | 2019-02-28 11:26 | NUR ---
Left hip and lower leg edema much improved. Continue with knee high TEDs. Per Dr. Quintanilla, ok to F/U with Dr. Solo as outpatient RE: left hip pain and swelling.
--- NOTE | 2019-02-28 13:43 | Physical Therapy Daily Note ---
PT Daily Note-Current Subjective Pt.agrees to Rx, Feeling positive about going home Pain Location: No Pain Reported Mental Status Patient Orientation: Normal For Age Transfers Therapy Code Descriptions/Definitions Functional [place] Measure: 0=Not Assessed/NA 4=Minimal Assistance 1=Total Assistance 5=Supervision or Setup 2=Maximal Assistance 6=Modified [place] 3=Moderate Assistance 7=Complete [place] Therapy Quality Codes: 6 Independent with activity with or without an assistive device 5 Patient requires set up or clean up by helper. Patient completes activity by themselves 4 Supervision or touching assist (CGA). [place] provide cues , steadying assist 3 The helper provides less than half the effort to complete the activity 2 The helper provides more than half the effort to complete the activity 1 Dependent. The helper does all the effort to complete an activity 7 Patient refused to complete or attempt activity 9 The patient did not perform the activity before the current illness or injury 88 Not attempted due to Medical conditions or safety concerns Transfers (B, C, W/C) (FIM): 6 Scootin Rollin Roll Left to Right (QC): 6 Supine to/from Sit: 6 Sit to/from Stand: 6 Sit to Lying (QC): 6 Sit to Stand (QC): 6 Chair/Obl-yc-Opwnm Xfer(QC): 6 Bed to/from Chair: 6 Car Transfer (QC): 6 Weight Bearing Patient has rotator cuff precautions on the left shoulder Gait Training Does the Patient Walk?: Yes Gait (FIM): 6 Distance (FIM): 3=150 ft (x2) Walk 10 feet (QC): 6 Walk 50 ft with 2 Turns(QC): 6 Walk 150 ft (QC): 6 Walking 10ft/uneven surface-QC: 6 Gait Level of Assist: 6 Gait Persons Needed: 0 Gait Assistive Device: FWW slow, careful Stair Training Stair Training: Handrails/: 2 handrails Stairs (FIM): 2 #of Steps: 4 1 Step (curb) (QC): 4 4 Steps (QC): 2 Stairs: Pattern: Step to Level of Assist: 4 safe, good sequencing , needs occas steadying Balance Special Test Comments unsafe to trial Exercises Supine Ex: Bridging, Ankle pumps, Quad Set, Rolling, Glut sets, Heel Slides, Short Arc Quads, Scooting, Straight leg raise, Hip abd/add Supine Reps: 10 (x4) Seated Therapy Exercises: Ankle pumps, Sit to stand, Long arc quads, Hip flexion, Hip abd/add Seated Reps: 12 NuStep Minutes: 10 NuStep Workload: 2 Treatments toileting mod I, pm Rx reviewed HEP , pt. demonstrating she knows most exercises and can calloway them without guide Assessment Current Status: Good Progress meets goals PT Short Term Goals Short Term Goals Time Frame: February 22, 2019 Transfers (B,C,W/C) (FIM): 4 (met) Gait (FIM): 1 (met) Gait Distance Comment: 20' Gait Level of Assist: 4 Gait Assistive Device: FWW PT Correction Goals Correction Goals PT Cable Ferry Operator Goals Time Frame: March 08, 2019 Transfers (B,C,W/C) (FIM): 4 (CGA) Sit to Lying (QC): 4 Lying-Sitting on Side/Bed(QC): 4 Sit to Stand (QC): 4 Rollin Roll Left to Right (QC): 4 Chair/Pdn-tb-Tfths Xfer(QC): 4 Car Transfer (QC): 4 Gait (FIM): 2 Distance: 50' Walk 10 feet (QC): 4 Walk 10ft-Uneven Surface(QC): 4 Walk 50ft with 2 Turns (QC): 4 Gait Level of Assist: 4 Gait Assistive Device: Cane Large Base Quad Stairs (FIM): 1 # of Steps: 1 1 Step (curb) (QC): 4 Stairs Level Of Assist: 4 PT Plan Treatment/Plan Treatment Plan: Continue Plan of Care Treatment Plan: Bed Mobility, Concurrent Therapy, Education, Functional Activity Ashley, Functional Strength, Group Therapy, Gait, Safety, Therapeutic Exercise, Transfers Treatment Duration: March 08, 2019 Frequency: At least 5 of 7 days/Wk (IRF) Estimated Hrs Per Day: 1.5 hours per day Patient and/or Family Agrees t: Yes Safety Risks/Education Patient Education: Gait Training, Transfer Techniques, Steps, Correct Positioning, Disease Process, Safety Issues Teaching Recipient: Patient Teaching Methods: Demonstration, Discussion Response to Teaching: Verbalize Understanding, Return Demonstration, Reinforcement Needed Time/GCodes Time In: 1100 (1315) Time Out: 1200 (1345) Total Billed Treatment Time: 90 Total Billed Treatment 1,FA30m,GT20m,EX40m G Codes Necessary: DEVIN Isaac CHIEF OF SAFETY AND PROTECTION February 28, 2019 13:43
--- NOTE | 2019-02-28 15:22 | NUR ---
F/U with Dr. Solo (Ortho) on 03/14/19 at 1:45 PM. RE: left hip pain and swelling.
[2019-02-28 17:13] VITALS: BP 96/61
--- NOTE | 2019-02-28 17:29 | NUR ---
name patient to review team conference summary. Per review of progress, patient is performing all activities with mod I. Team is recommended patient proceed with discharge tomorrow, patient is agreeable to this. Originally home health was recommended; however, patient prefers outpatient therapy. Therapy believes this to be a safe option. Patient expresses no concerns with discharge plans. 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 to be inquired about transportation home, patient states her daughter has taken off several days due to her hospitalization; therefore, she is not available to provide transport home until after work at 430 p.m. no additional concerns noted this time, please see discharge summary for further information.
[2019-02-28] MEDS: GABAPENTIN 100 MG (NEURONTIN) CAP PO SCH (20:15)
[2019-02-28] MEDS: traZODone 50 MG (DESYREL) TAB PO SCH (20:16)
[2019-02-28] MEDS: ALPRAZolam 1 MG (XANAX) TAB PO SCH (20:16)
[2019-03-01 05:07] VITALS: BP 120/86
[2019-03-01] MEDS: KCL 10 MEQ TAB (MICRO K) PO SCH (06:27)
[2019-03-01] MEDS: POLYETHYLENE GLYCOL 17 GM (MIRALAX) PACK PO PRN (06:27)
[2019-03-01] MEDS: VITAMIN D3 1,000 UNITS (CHOLECALCIFEROL) TABLET PO SCH (06:27)
[2019-03-01] MEDS: LEVOTHYROXINE 25 MCG (LEVOTHROID) TAB PO SCH (06:27)
[2019-03-01] MEDS: FERROUS SULF 325 MG (IRON) TAB PO SCH (06:27)
[2019-03-01 07:18] LABS: BUN/CREATININE RATIO 13; CARBON DIOXIDE 23 MMOL/L (21-32); CHLORIDE 105 MMOL/L (98-107); CREATININE SERUM 0.87 MG/DL (0.60-1.30); GFR ESTIMATED > 60; GLUCOSE 82 MG/DL (70-105); MAGNESIUM 2.1 MG/DL (1.8-2.4); POTASSIUM 4.3 MMOL/L (3.6-5.0); SODIUM 138 MMOL/L (135-145)
[2019-03-01] MEDS ORDERED: ENAL2.5T PO (08:26)
[2019-03-01] MEDS ORDERED: FURO20TA4 PO (08:26)
[2019-03-01] MEDS ORDERED: ALPR1TAB7 PO (08:26)
[2019-03-01] MEDS ORDERED: ACET325T49 PO (08:26)
[2019-03-01] MEDS ORDERED: POTA10TA6 PO (08:26)
[2019-03-01] MEDS ORDERED: DIGO125T18 PO (08:26)
[2019-03-01] MEDS ORDERED: ALPR0.5T7 PO (08:26)
[2019-03-01] MEDS ORDERED: TRAM50TA2 PO (08:26)
[2019-03-01] MEDS ORDERED: TRAZ-189 PO (08:26)
--- NOTE | 2019-03-01 08:28 | Discharge Summary ---
Diagnosis/Chief Complaint Date of Admission Feb 15, 2019 at 10:00 Date of Discharge Discharge Date: March 01, 2019 Discharge Diagnosis Assessment: Falls Debility Recent shoulder surgery left Bipolar d/o? Anxiety Chronic pain Neuropathy Chronic constipation CRI AF Elevated LFT's improved with decreased Tylenol dosing and holding statin and other meds Overuse of meds now much improved Drowsiness resolved since minimizing meds Hyponatremia now resolved Vaginal discharge no significant change Edema on Lasix Plan: IRF protocol Home meds Check labs Cardiology consultation for cardiac management while hospitalized is appreciated Hold statin until sees PCP [place] Minimize Tylenol Minimize all sedating meds Minimize water intake due to mild hyponatremia and patient appears to be high risk for psychogenic polydipsia sodium level now normal Xanax dosing as per PCP Appreciate Dr Shanks and noted normal vaginal cary Reviewed labs [place] home today Discharge Summary Discharge Physical Examination Allergies: Coded Allergies: morphine (Verified Adverse Reaction, Mild, N/V, 01/22/19) Uncoded Allergies: TAPE (Allergy, Mild, RASH, 01/22/19) Vitals & I&Os Vital Signs Date Time Temp Pulse Resp B/P (MAP) Pulse Ox O2 Delivery O2 Flow Rate FiO2 03/01/19 17:51 82 116/78 99 Room Air 03/01/19 16:19 96.2 14 General Appearance: Alert, Oriented X3, Cooperative HEENT: Atraumatic, PERRLA Respiratory: Clear to Auscultation, Normal Air Movement Cardiovascular: Regular Rate, Normal S1, Normal S2 Abdominal: Normal Bowel Sounds, Soft Extremities: No Clubbing, No Cyanosis Skin: No Rashes, No Breakdown Neuro: Normal Gait, Normal Speech, Strength at 5/5 X4 Ext Psych/Mental Status: Mental Status NL, Mood NL Hospital Course Was the Problem List Reviewed?: Yes Hospital Course: Pt had a lengthy hospital course in inpatient rehab for 15 days. She was admitted directly from home due to recent rotator cuff surgery by Dr. Chavez but multiple falls. Pt was found to have to been over medicated taking too many medications likely since her rotator cuff surgery and fall prevention was the focus with PT and OT. Multiple medications were minimized with improved overall status an did very well in general. Cardiology was consulted and managed the AF and CHF with multiple medication changes. Overall she had a dramatic improvement and was able to to be discharged on outpatient PT , all medications were reviewed and sent to [facility] Pharmacy Dr. Jauregui appointment for next week and has done an excellent job participating in therapies, bowel function remain normal and she turned back to her prior level of functioning of independent ADLs and ambulation. Labs (last 24 hrs) Laboratory Tests 02/16/19 09:20: White Blood Count 5.8, Red Blood Count 3.93L, Hemoglobin 12.9, Hematocrit 40, Mean Corpuscular Volume 101H, Mean Corpuscular Hemoglobin 33, Mean Corpuscular Hemoglobin Concent 32, Red Cell Distribution Width 15.0H, Platelet Count 101L, Mean Platelet Volume 10.0, Neutrophils (%) (Auto) 63, Lymphocytes (%) (Auto) 26 , Monocytes (%) (Auto) 10, Eosinophils (%) (Auto) 2, Basophils (%) (Auto) 1, Neutrophils # (Auto) 3.6, Lymphocytes # (Auto) 1.5, Monocytes # (Auto) 0.6, Eosinophils # (Auto) 0.1, Basophils # (Auto) 0.0, Sodium Level 134L, Potassium Level 3.9, Chloride Level 102, Carbon Dioxide Level 21, Anion Gap 11, Blood Urea Nitrogen 11, Creatinine 0.84, Estimat Glomerular Filtration Rate > 60, BUN/ Creatinine Ratio 13, Glucose Level 138H, Calcium Level 9.1, Corrected Calcium 9.4, Total Bilirubin 0.9, Aspartate Amino Transf (AST/SGOT) 140H, Alanine Aminotransferase (ALT/SGPT) 243H, Alkaline Phosphatase 127, Total Protein 6.0L, Albumin 3.6, Thyroid Stimulating Hormone (TSH) 4.21 02/19/19 04:25: White Blood Count 6.4, Red Blood Count 4.02L, Hemoglobin 13.0, Hematocrit 40, Mean Corpuscular Volume 100H, Mean Corpuscular Hemoglobin 32, Mean Corpuscular Hemoglobin Concent 32, Red Cell Distribution Width 15.1H, Platelet Count 106L, Mean Platelet Volume 9.8, Neutrophils (%) (Auto) 61, Lymphocytes (%) (Auto) 28, Monocytes (%) (Auto) 9, Eosinophils (%) (Auto) 2, Basophils (%) (Auto) 1, Neutrophils # (Auto) 3.9, Lymphocytes # (Auto) 1.8, Monocytes # (Auto) 0.6, Eosinophils # (Auto) 0.1, Basophils # (Auto) 0.0, Sodium Level 133L, Potassium Level 4.2, Chloride Level 101, Carbon Dioxide Level 20L, Anion Gap 12, Blood Urea Nitrogen 11, Creatinine 0.86, Estimat Glomerular Filtration Rate > 60, BUN/ Creatinine Ratio 13, Glucose Level 97, Calcium Level 8.9, Corrected Calcium 9.3 , Total Bilirubin 0.9, Aspartate Amino Transf (AST/SGOT) 39H, Alanine Aminotransferase (ALT/SGPT) 109H, Alkaline Phosphatase 132, Total Protein 5.8L, Albumin 3.5 02/22/19 06:08: White Blood Count 5.6, Red Blood Count 4.00L, Hemoglobin 12.8, Hematocrit 40, Mean Corpuscular Volume 101H, Mean Corpuscular Hemoglobin 32, Mean Corpuscular Hemoglobin Concent 32, Red Cell Distribution Width 15.5H, Platelet Count 109L, Mean Platelet Volume 9.7, Neutrophils (%) (Auto) 55, Lymphocytes (%) (Auto) 33, Monocytes (%) (Auto) 9, Eosinophils (%) (Auto) 3, Basophils (%) (Auto) 1, Neutrophils # (Auto) 3.1, Lymphocytes # (Auto) 1.8, Monocytes # (Auto) 0.5, Eosinophils # (Auto) 0.2, Basophils # (Auto) 0.0, Sodium Level 136, Potassium Level 3.8, Chloride Level 104, Carbon Dioxide Level 20L, Anion Gap 12, Blood Urea Nitrogen 13, Creatinine 0.85, Estimat Glomerular Filtration Rate > 60, BUN/ Creatinine Ratio 15, Glucose Level 80, Calcium Level 8.7, Corrected Calcium 9.3 , Total Bilirubin 0.9, Aspartate Amino Transf (AST/SGOT) 37H, Alanine Aminotransferase (ALT/SGPT) 70H, Alkaline Phosphatase 124, Total Protein 5.7L, Albumin 3.3 02/22/19 19:52: Sodium Level 137, Potassium Level 5.4H, Chloride Level 103, Carbon Dioxide Level 23, Anion Gap 11, Blood Urea Nitrogen 15, Creatinine 1.08, Estimat Glomerular Filtration Rate 49, BUN/Creatinine Ratio 14, Glucose Level 115H, Calcium Level 9.3, Magnesium Level 1.9 02/23/19 09:20: Sodium Level 134L, Potassium Level 4.8, Chloride Level 101, Carbon Dioxide Level 23, Anion Gap 10, Blood Urea Nitrogen 14, Creatinine 1.10, Estimat Glomerular Filtration Rate 48, BUN/Creatinine Ratio 13, Glucose Level 123H, Calcium Level 8.8, Magnesium Level 1.8 02/24/19 06:19: Sodium Level 137, Potassium Level 4.1, Chloride Level 105, Carbon Dioxide Level 24, Anion Gap 8, Blood Urea Nitrogen 12, Creatinine 0.90, Estimat Glomerular Filtration Rate > 60, BUN/Creatinine Ratio 13, Glucose Level 76, Calcium Level 8.7, Magnesium Level 2.0 02/26/19 05:31: Sodium Level 139, Potassium Level 4.3, Chloride Level 105, Carbon Dioxide Level 24, Anion Gap 10, Blood Urea Nitrogen 12, Creatinine 0.95, Estimat Glomerular Filtration Rate 57, BUN/Creatinine Ratio 13, Glucose Level 80, Calcium Level 9.1 , Magnesium Level 2.1, White Blood Count 5.4, Red Blood Count 4.07L, Hemoglobin 13.1, Hematocrit 41, Mean Corpuscular Volume 102H, Mean Corpuscular Hemoglobin 32, Mean Corpuscular Hemoglobin Concent 32, Red Cell Distribution Width 15.9H, Platelet Count 120L, Mean Platelet Volume 10.2, Neutrophils (%) (Auto) 52, Lymphocytes (%) (Auto) 35, Monocytes (%) (Auto) 10, Eosinophils (%) (Auto) 2, Basophils (%) (Auto) 1, Neutrophils # (Auto) 2.8, Lymphocytes # (Auto) 1.9, Monocytes # (Auto) 0.6, Eosinophils # (Auto) 0.1, Basophils # (Auto) 0.1, Corrected Calcium 9.6, Total Bilirubin 0.8, Aspartate Amino Transf (AST/SGOT) 23 , Alanine Aminotransferase (ALT/SGPT) 39, Alkaline Phosphatase 128, Total Protein 5.8L, Albumin 3.4 02/28/19 06:15: Sodium Level 137, Potassium Level 4.0, Chloride Level 104, Carbon Dioxide Level 24, Anion Gap 9, Blood Urea Nitrogen 12, Creatinine 0.87, Estimat Glomerular Filtration Rate > 60, BUN/Creatinine Ratio 14, Glucose Level 82, Calcium Level 8.8, Magnesium Level 2.0, B-Type Natriuretic Peptide 705.8H, Digoxin Level < 0.30L 03/01/19 05:38: Sodium Level 138, Potassium Level 4.3, Chloride Level 105, Carbon Dioxide Level 23, Anion Gap 10, Blood Urea Nitrogen 11, Creatinine 0.87, Estimat Glomerular Filtration Rate > 60, BUN/Creatinine Ratio 13, Glucose Level 82, Calcium Level 9.0, Magnesium Level 2.1, Digoxin Level < 0.30L Microbiology 02/22/19 Genital Culture - Final, Complete Usual Vaginal [place] Pending Labs Microbiology Date/Time Source Procedure Growth Status 02/22/19 10:44 Vaginal Genital Culture - Final Usual Vaginal [place] Complete Laboratory Tests 02/16/19 09:20: White Blood Count 5.8, Red Blood Count 3.93, Hemoglobin 12.9, Hematocrit 40, Mean Corpuscular Volume 101, Mean Corpuscular Hemoglobin 33, Mean Corpuscular Hemoglobin Concent 32, Red Cell Distribution Width 15.0, Platelet Count 101, Mean Platelet Volume 10.0, Neutrophils (%) (Auto) 63, Lymphocytes (%) (Auto) 26 , Monocytes (%) (Auto) 10, Eosinophils (%) (Auto) 2, Basophils (%) (Auto) 1, Neutrophils # (Auto) 3.6, Lymphocytes # (Auto) 1.5, Monocytes # (Auto) 0.6, Eosinophils # (Auto) 0.1, Basophils # (Auto) 0.0, Sodium Level 134, Potassium Level 3.9, Chloride Level 102, Carbon Dioxide Level 21, Anion Gap 11, Blood Urea Nitrogen 11, Creatinine 0.84, Estimat Glomerular Filtration Rate > 60, BUN/ Creatinine Ratio 13, Glucose Level 138, Calcium Level 9.1, Corrected Calcium 9.4 , Total Bilirubin 0.9, Aspartate Amino Transf (AST/SGOT) 140, Alanine Aminotransferase (ALT/SGPT) 243, Alkaline Phosphatase 127, Total Protein 6.0, Albumin 3.6, Thyroid Stimulating Hormone (TSH) 4.21 02/19/19 04:25: White Blood Count 6.4, Red Blood Count 4.02, Hemoglobin 13.0, Hematocrit 40, Mean Corpuscular Volume 100, Mean Corpuscular Hemoglobin 32, Mean Corpuscular Hemoglobin Concent 32, Red Cell Distribution Width 15.1, Platelet Count 106, Mean Platelet Volume 9.8, Neutrophils (%) (Auto) 61, Lymphocytes (%) (Auto) 28, Monocytes (%) (Auto) 9, Eosinophils (%) (Auto) 2, Basophils (%) (Auto) 1, Neutrophils # (Auto) 3.9, Lymphocytes # (Auto) 1.8, Monocytes # (Auto) 0.6, Eosinophils # (Auto) 0.1, Basophils # (Auto) 0.0, Sodium Level 133, Potassium Level 4.2, Chloride Level 101, Carbon Dioxide Level 20, Anion Gap 12, Blood Urea Nitrogen 11, Creatinine 0.86, Estimat Glomerular Filtration Rate > 60, BUN/ Creatinine Ratio 13, Glucose Level 97, Calcium Level 8.9, Corrected Calcium 9.3 , Total Bilirubin 0.9, Aspartate Amino Transf (AST/SGOT) 39, Alanine Aminotransferase (ALT/SGPT) 109, Alkaline Phosphatase 132, Total Protein 5.8, Albumin 3.5 02/22/19 06:08: White Blood Count 5.6, Red Blood Count 4.00, Hemoglobin 12.8, Hematocrit 40, Mean Corpuscular Volume 101, Mean Corpuscular Hemoglobin 32, Mean Corpuscular Hemoglobin Concent 32, Red Cell Distribution Width 15.5, Platelet Count 109, Mean Platelet Volume 9.7, Neutrophils (%) (Auto) 55, Lymphocytes (%) (Auto) 33, Monocytes (%) (Auto) 9, Eosinophils (%) (Auto) 3, Basophils (%) (Auto) 1, Neutrophils # (Auto) 3.1, Lymphocytes # (Auto) 1.8, Monocytes # (Auto) 0.5, Eosinophils # (Auto) 0.2, Basophils # (Auto) 0.0, Sodium Level 136, Potassium Level 3.8, Chloride Level 104, Carbon Dioxide Level 20, Anion Gap 12, Blood Urea Nitrogen 13, Creatinine 0.85, Estimat Glomerular Filtration Rate > 60, BUN/ Creatinine Ratio 15, Glucose Level 80, Calcium Level 8.7, Corrected Calcium 9.3 , Total Bilirubin 0.9, Aspartate Amino Transf (AST/SGOT) 37, Alanine Aminotransferase (ALT/SGPT) 70, Alkaline Phosphatase 124, Total Protein 5.7, Albumin 3.3 02/22/19 19:52: Sodium Level 137, Potassium Level 5.4, Chloride Level 103, Carbon Dioxide Level 23, Anion Gap 11, Blood Urea Nitrogen 15, Creatinine 1.08, Estimat Glomerular Filtration Rate 49, BUN/Creatinine Ratio 14, Glucose Level 115, Calcium Level 9.3, Magnesium Level 1.9 02/23/19 09:20: Sodium Level 134, Potassium Level 4.8, Chloride Level 101, Carbon Dioxide Level 23, Anion Gap 10, Blood Urea Nitrogen 14, Creatinine 1.10, Estimat Glomerular Filtration Rate 48, BUN/Creatinine Ratio 13, Glucose Level 123, Calcium Level 8.8, Magnesium Level 1.8 02/24/19 06:19: Sodium Level 137, Potassium Level 4.1, Chloride Level 105, Carbon Dioxide Level 24, Anion Gap 8, Blood Urea Nitrogen 12, Creatinine 0.90, Estimat Glomerular Filtration Rate > 60, BUN/Creatinine Ratio 13, Glucose Level 76, Calcium Level 8.7, Magnesium Level 2.0 02/26/19 05:31: Sodium Level 139, Potassium Level 4.3, Chloride Level 105, Carbon Dioxide Level 24, Anion Gap 10, Blood Urea Nitrogen 12, Creatinine 0.95, Estimat Glomerular Filtration Rate 57, BUN/Creatinine Ratio 13, Glucose Level 80, Calcium Level 9.1 , Magnesium Level 2.1, White Blood Count 5.4, Red Blood Count 4.07, Hemoglobin 13.1, Hematocrit 41, Mean Corpuscular Volume 102, Mean Corpuscular Hemoglobin 32 , Mean Corpuscular Hemoglobin Concent 32, Red Cell Distribution Width 15.9, Platelet Count 120, Mean Platelet Volume 10.2, Neutrophils (%) (Auto) 52, Lymphocytes (%) (Auto) 35, Monocytes (%) (Auto) 10, Eosinophils (%) (Auto) 2, Basophils (%) (Auto) 1, Neutrophils # (Auto) 2.8, Lymphocytes # (Auto) 1.9, Monocytes # (Auto) 0.6, Eosinophils # (Auto) 0.1, Basophils # (Auto) 0.1, Corrected Calcium 9.6, Total Bilirubin 0.8, Aspartate Amino Transf (AST/SGOT) 23 , Alanine Aminotransferase (ALT/SGPT) 39, Alkaline Phosphatase 128, Total Protein 5.8, Albumin 3.4 02/28/19 06:15: Sodium Level 137, Potassium Level 4.0, Chloride Level 104, Carbon Dioxide Level 24, Anion Gap 9, Blood Urea Nitrogen 12, Creatinine 0.87, Estimat Glomerular Filtration Rate > 60, BUN/Creatinine Ratio 14, Glucose Level 82, Calcium Level 8.8, Magnesium Level 2.0, B-Type Natriuretic Peptide 705.8, Digoxin Level < 0.30 03/01/19 05:38: Sodium Level 138, Potassium Level 4.3, Chloride Level 105, Carbon Dioxide Level 23, Anion Gap 10, Blood Urea Nitrogen 11, Creatinine 0.87, Estimat Glomerular Filtration Rate > 60, BUN/Creatinine Ratio 13, Glucose Level 82, Calcium Level 9.0, Magnesium Level 2.1, Digoxin Level < 0.30 Discharge Home Medications: Active Scripts Active Furosemide 20 Mg Tablet 20 Mg PO DAILY Klor-Con 10 (Potassium Chloride) 10 Meq Tablet.er 10 Meq PO DAILY@0700 Alprazolam 1 Mg Tablet 1 Mg PO HS Alprazolam 0.5 Mg Tablet 0.5 Mg PO DAILY@1000 Trazodone HCl 50 Mg Tablet 50 Mg PO HS Acetaminophen 325 Mg Tablet 325 Mg PO Q8HR PRN 30 Days Enalapril Maleate 2.5 Mg Tablet 2.5 Mg PO DAILY Digox (Digoxin) 125 Mcg Tablet 0.125 Mg PO DAILY Tramadol HCl 50 Mg Tablet 50 Mg PO Q6H PRN Reported Gabapentin 300 Mg Capsule 300 Mg PO HS Iron (Ferrous Sulfate) 325 Mg Tablet 325 Mg PO DAILY Bupropion HCl Sr (Bupropion HCl) 150 Mg Tablet.er 150 Mg PO BID Miralax (Polyethylene Glycol 3350) 17 Gm Powd.pack 17 Gm PO DAILY PRN Aspir 81 (Aspirin) 81 Mg Tablet. 81 Mg PO MOWEFR Eliquis (Apixaban) 2.5 Mg Tablet 2.5 Mg PO BID Pravastatin Sodium 40 Mg Tablet 40 Mg PO HS Metoprolol Tartrate 25 Mg Tablet 25 Mg PO BID Omeprazole 20 Mg Capsule. 20 Mg PO DAILY Flecainide Acetate 50 Mg Tablet 50 Mg PO BID Levothyroxine Sodium 25 Mcg Tablet 25 Mcg PO DAILY Vitamin D3 (Cholecalciferol (Vitamin D3)) 1,000 Unit Capsule 1,000 Unit PO DAILY Instructions to patient/family Please see electronic discharge instructions given to patient. Diagnosis/Problems Diagnosis/Problems (1) Debility (2) Thrombocytopenia (3) Overuse of medication (4) Drowsiness (5) Atrial fibrillation Status: Acute (6) Anticoagulated Status: Acute (7) Elevated liver enzymes Status: Acute (8) Fall on same level Status: Acute (9) Falls Status: Acute (10) Weakness Status: Acute (11) Bipolar 1 disorder (12) Hyponatremia (13) Insomnia (14) Psychogenic polydipsia (15) LEFT SHOULDER ROTATOR CUFF TEAR Clinical Quality Measures DVT/VTE Risk/Contraindication: Risk Factor Score Per Nursin RFS Level Per Nursing on Admit: 4+=Very High PATRICE ISAAC DO March 01, 2019 08:28
[2019-03-01] MEDS ORDERED: DIGOXIN 0.125 MG (LANOXIN) TAB PO SCH (09:00)
[2019-03-01] MEDS: APIXABAN 2.5 MG (ELIQUIS) TABLET PO SCH (09:01)
[2019-03-01] MEDS: buPROPion SR 150 MG (WELLBUTRIN SR) TAB PO SCH (09:01)
[2019-03-01] MEDS: FUROSEMIDE 20 MG (LASIX) TAB PO SCH (09:01)
[2019-03-01] MEDS: PANTOPRAZOLE 20 MG TABLET (PROTONIX) PO SCH (09:03)
[2019-03-01] MEDS: meTOprolol TARTRATE 25 MG (LOPRESSOR) TABLET PO SCH (09:04)
[2019-03-01] MEDS: ENALAPRIL 2.5 MG (VASOTEC) TAB PO SCH (09:04)
[2019-03-01] MEDS: ACETAMINOPHEN 325 MG TABLET PO PRN (09:10)
[2019-03-01] MEDS: ALPRAZolam 0.5 MG (XANAX) TAB PO SCH (10:53)
--- NOTE | 2019-03-01 11:08 | Therapy Team Discharge Summary ---
Therapy Discharge Summary Discharge Recommendations Date of Discharge 03/01/2019 Therapy D/C Recommendations: Occupational Therapy Home Care, Physical Therapy Home Care Physical Therapy this patient was admitted to this facility from home due to increased falls at home and a dx of debility; in addition she had recently underwent RCR left. Prior to her recent decline, she had been living alone at a mod indep level in a senior apartment. Upon admission to this unit, she was mod assist with transfers, walked 8 ft with a cane with min assist and was unsafe/unable to attempt stairs. Treatment has focused on functional strength and balance training to improve her ability to transfer and walk. She has made excellent progress and is mod indep with all mobiltiy at this time. She has met/exceeded all goals set at evaluation. Recommend pt follow with home PT at discharge. DC PT. Occupational Therapy Decreased Activ Tolerance, Impaired Funct Balance, Impaired Self-Care Skills PT Long-Term Goals Graduate Internship Goals PT Long-Term Goals Time Frame: March 08, 2019 Transfers (B,C,W/C) (FIM): 4 (CGA) Roll Left to Right (QC): 4 Sit to Lying (QC): 4 Lying-Sitting on Side/Bed(QC): 4 Sit to Stand (QC): 4 Chair/Ied-ws-Ljebp Xfer(QC): 4 Car Transfer (QC): 4 Gait (FIM): 2 Distance: 50' Walk 10 feet (QC): 4 Walk 10ft-Uneven Surface(QC): 4 Walk 50ft with 2 Turns (QC): 4 Gait Level of Assist: 4 Gait Assistive Device: Cane Large Base Quad Stairs (FIM): 1 # of Steps: 1 1 Step (curb) (QC): 4 Stairs Level Of Assist: 4 all goals met or exceeded OT Graduate Internship Goals Graduate Internship Goals Eating (FIM): 6 (met-02/28/19) Eating (QC): 6 (met-02/28/19) Oral Hygiene (QC): 6 (met-02/28/19) Grooming(FIM): 6 (met-02/28/19) Bathing(FIM): 6 (met-02/28/19) Bathing Location: L Arm, R Arm, L Upper Leg, R Upper Leg, L Lower Leg ( including foot), R Lower Leg (including foot), Chest, Abdomen, Buttocks, Perineal Area Shower/Bathe Self (QC): 6 (met-02/28/19) Upper Body Dressing(FIM): 6 (met-02/28/19) Upper Body Dressing (QC): 6 (met-02/28/19) Lower Body Dressing(FIM): 6 (met-02/28/19) Lower Body Dressing (QC): 6 (met-02/28/19) On/Off Footwear (QC): 6 (met-02/28/19) Toileting(FIM): 6 (met-02/28/19) Toileting Hygiene (QC): 6 (met-02/28/19) Transfers (B,C,W/C) (FIM): 6 (met-02/28/19) Toilet/Commode Transfer(FIM): 6 (met-02/28/19) Toilet/Commode Transfer (QC): 6 (met-02/28/19) Tub Transfer(FIM): 6 (met-02/28/19) Shower Transfer(FIM): 6 Additional Goals: 1-Demonstrate ADL Tasks, 2-Verbalize Understanding, 3- ImproveStrength/Ashley 1=Demonstrate adherence to instructed precautions during ADL tasks. 2=Patient will verbalize/demonstrate understanding of assistive devices/ modifications for ADL. 3=Patient will improve strength/tolerance for activity to enable patient to perform ADL's. OMID FARRELL PT March 01, 2019 11:08
--- NOTE | 2019-03-01 11:35 | Progress Note-Cardiology ---
Cardiology SOAP Progress Note Subjective: Shortness of breath and weakness somewhat improved No cp or palp or syncope Objective: I&O/Vital Signs 03/01/19 03/01/19 05:07 09:00 Temp 96.9 Pulse 80 Resp 18 B/P (MAP) 120/86 (97) Pulse Ox 95 O2 Delivery Room Air Room Air 03/01/19 00:00 Intake Total 950 ml Balance 950 ml Weight (Pounds): 153 Weight (Ounces): 9.6 Weight (Calculated Kilograms): 69.623006 Constitutional: AAO x 3, well-developed, well-nourished Respiratory: No accessory muscle use; lungs clear to percussion, lungs clear to auscultation Cardiovascular: irregularly irregular, S1 and S2, systolic murmur (faint DONG at card base) Gastrointestional: soft; No guarding, No rebound, No tenderness; audible bowel sounds Extremities: No clubbing, No cyanosis; significant edema (Mod LE swelling up to hips) Neurologic/Psychiatric: oriented x 3, other (4/5 power bilat), grossly intact Skin: No rash on exposed areas, No ulcerations on exposed areas Results/Procedures: Labs Laboratory Tests 03/01/19 05:38: Sodium Level 138, Potassium Level 4.3, Chloride Level 105, Carbon Dioxide Level 23, Anion Gap 10, Blood Urea Nitrogen 11, Creatinine 0.87, Estimat Glomerular Filtration Rate > 60, BUN/Creatinine Ratio 13, Glucose Level 82, Calcium Level 9.0, Magnesium Level 2.1, Digoxin Level < 0.30L Microbiology 02/22/19 Genital Culture - Final, Complete Usual Vaginal Laure A/P: Assessment: Chronic persistent A Fib with a somewhat rapid vent rate, now appears better controlled Ac on chronic systolic CHF, now better compensated Mild to mod cardiomyopathy, probably ischemic. Echo of 02/21/19: LVEF 40-45%, anteroseptal hypokinesis to akinesis, biatrial enlargement, mod to sev MR, sev TR, PASP 25-30 mmHg Mild CAD on card cath in or around 2012, according to the patient H/o hyperlipidemia Gen weakness, being evaluated and treated by Dr Quintanilla Plan: * Continue heart failure regimen * Not able to increase bb or RODNEY-inhib because of low bp * Outpt f/u advised MOHINI VELASQUEZ MD FACP FACC CCDS March 01, 2019 11:35
--- NOTE | 2019-03-01 14:17 | Therapy Team Discharge Summary ---
Therapy Discharge Summary Discharge Recommendations Date of Discharge 02-28-19 Therapy D/C Recommendations: Home w/ Family Support, Occupational Therapy Home Care, Physical Therapy Home Care Occupational Therapy Pt. seen for occupational therapy to increase overall strength and independence. Pt. has met all goals. Pt. to discharge home. Pt. has all equipment at home. Recommend follow up with home health OT. PT High Pressure Firer Goals [facility] Goals PT High Pressure Firer Goals Time Frame: March 08, 2019 Transfers (B,C,W/C) (FIM): 4 (CGA) Roll Left to Right (QC): 4 Sit to Lying (QC): 4 Lying-Sitting on Side/Bed(QC): 4 Sit to Stand (QC): 4 Chair/Jle-bx-Bhsjm Xfer(QC): 4 Car Transfer (QC): 4 Gait (FIM): 2 Distance: 50' Walk 10 feet (QC): 4 Walk 10ft-Uneven Surface(QC): 4 Walk 50ft with 2 Turns (QC): 4 Gait Level of Assist: 4 Gait Assistive Device: Cane Large Base Quad Stairs (FIM): 1 # of Steps: 1 1 Step (curb) (QC): 4 Stairs Level Of Assist: 4 OT [facility] Goals High Pressure Firer Goals Eating (FIM): 6 (met-02/28/19) Eating (QC): 6 (met-02/28/19) Oral Hygiene (QC): 6 (met-02/28/19) Grooming(FIM): 6 (met-02/28/19) Bathing(FIM): 6 (met-02/28/19) Bathing Location: L Arm, R Arm, L Upper Leg, R Upper Leg, L Lower Leg ( including foot), R Lower Leg (including foot), Chest, Abdomen, Buttocks, Perineal Area Shower/Bathe Self (QC): 6 (met-02/28/19) Upper Body Dressing(FIM): 6 (met-02/28/19) Upper Body Dressing (QC): 6 (met-02/28/19) Lower Body Dressing(FIM): 6 (met-02/28/19) Lower Body Dressing (QC): 6 (met-02/28/19) On/Off Footwear (QC): 6 (met-02/28/19) Toileting(FIM): 6 (met-02/28/19) Toileting Hygiene (QC): 6 (met-02/28/19) Transfers (B,C,W/C) (FIM): 6 (met-02/28/19) Toilet/Commode Transfer(FIM): 6 (met-02/28/19) Toilet/Commode Transfer (QC): 6 (met-02/28/19) Tub Transfer(FIM): 6 (met-02/28/19) Shower Transfer(FIM): 6 Additional Goals: 1-Demonstrate ADL Tasks, 2-Verbalize Understanding, 3- ImproveStrength/Ashley 1=Demonstrate adherence to instructed precautions during ADL tasks. 2=Patient will verbalize/demonstrate understanding of assistive devices/ modifications for ADL. 3=Patient will improve strength/tolerance for activity to enable patient to perform ADL's. LANIE ELLINGTON OT March 01, 2019 14:17
[2019-03-01 16:19] VITALS: BP 116/78
[2019-03-01 17:51] VITALS: BP 116/78
== END 2019-03-01 17:00 | disposition home or self-care (01) | DRG 947 ==
PROVIDERS: ADMIT Internal Medicine; ATTEND Internal Medicine
DX: R53.1 Weakness (principal); R53.81 Other malaise; R29.6 Repeated falls; Z47.89 Encounter for other orthopedic aftercare; I48.1 Persistent atrial fibrillation; I25.10 Atherosclerotic heart disease of native coronary artery without angina pectoris; I13.0 Hypertensive heart and chronic kidney disease with heart failure and stage 1 through stage 4 chronic kidney disease, or unspecified chronic kidney disease; I50.23 Acute on chronic systolic (congestive) heart failure; N18.9 Chronic kidney disease, unspecified; E87.1 Hypo-osmolality and hyponatremia; I25.5 Ischemic cardiomyopathy; N89.8 Other specified noninflammatory disorders of vagina; R63.1 Polydipsia; F54 Psychological and behavioral factors associated with disorders or diseases classified elsewhere; R40.0 Somnolence; E78.5 Hyperlipidemia, unspecified; G62.9 Polyneuropathy, unspecified; K21.9 Gastro-esophageal reflux disease without esophagitis; K44.9 Diaphragmatic hernia without obstruction or gangrene; M19.90 Unspecified osteoarthritis, unspecified site; E03.9 Hypothyroidism, unspecified; H54.3 Unqualified visual loss, both eyes; F41.9 Anxiety disorder, unspecified; F31.9 Bipolar disorder, unspecified; T43.215A Adverse effect of selective serotonin and norepinephrine reuptake inhibitors, initial encounter; T42.4X5A Adverse effect of benzodiazepines, initial encounter; T42.75XA Adverse effect of unspecified antiepileptic and sedative-hypnotic drugs, initial encounter
CPT/HCPCS: 36415; 80048; 80053; 80162; 83735; 83880; 84443; 85025; 87070; 87205; 93005; 93306

== ENCOUNTER 2019-03-16 19:35 | Emergency (ER) | payer MEDICARE ==
[~2019-03-16] VITALS: Ht 165.1 cm; Wt 68.9 kg
[~2019-03-16 19:35] MED LIST changes: +ACET325T49 PO; +ALPR0.5T7 PO; +DIGO125T18 PO; +ENAL2.5T PO; +FERR-84 PO; +GABA-488 PO; +POTA10TA6 PO; +TRAZ-222 PO
--- OUTSIDE RECORDS SUMMARY | 2019-03-16 19:41 | XMS REPORT | Clinical Summary ---
Author Author [facility] Organization [facility] Address Unknown Phone Unavailable Care Team Providers Care Cork Tipper Name Role Phone Stuart Jauregui MD PCP [...] Date Chronic diastolic CHF (congestive heart failure) ([facility]) 10/01/2016 PAF (paroxysmal atrial fibrillation) ([facility]) 10/01/2016 Valvular disease 10/01/2016 Tricuspid valve regurgitation 09/20/2016 Overview: Moderate to severe tricuspid regurgitation noted on ECHO Mitral valve regurgitation 09/17/2016 Overview: Calcified mitral valve with mean gradient of 5 mmHg consistent with mild stenosis, with mild to moderate (2+) regurgitation. 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 Resolved Problems Problem Noted Date Resolved Date Acute on chronic diastolic CHF (congestive heart failure) ([facility]) 09/17/2016 01/20/2017 Persistent atrial fibrillation ([facility]) 08/10/2016 01/20/2017 Encounters Date Type Specialty Care Team Description 02/01/2019 Documentation Cardiology Radha Nixon MD 01/29/2019 Telephone Cardiology Erika Rg, RN Returning patient call 01/26/2019 Orders Only Cardiology Radha Nixon MD PAF (paroxysmal atrial fibrillation) ([facility]) 01/22/2019 Telephone Cardiology Luciano Salas, ECHO 01/10/2019 Refill Cardiology Radha Nixon MD Medication [...] 36.4 C (97.6 F) 09/21/2016 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 [address] [place] [address] [phone] Health Maintenance Due Date Last Done Comments Medicare Annual Wellness 1940 Td # 1940 Zoster Vaccine# (1 of 2) 1991 Depression Screening 2006 PHQ-9 # Osteoporosis Screening 2006 Fall Risk Assessment # 09/21/2017 09/21/2016 Pneumococcal Immunization 09/21/2017 09/21/2016 65+ (2 of 2 - PPSV23) Influenza Vaccine (Season 08/24/2019 Ended) Implants Implanted Type Area Systems Software Designer Device Expiration Model / Identifier Date Serial [...] Performing Organization Address City/State/Zipcode Phone Number [phone] [place] [address] from Last 3 Months
--- OUTSIDE RECORDS SUMMARY | 2019-03-16 19:41 | XMS REPORT | Encounter Summary ---
Author Author [facility] Organization [facility] Address Unknown Phone Unavailable Care Team Providers Care [employer] Name Role Phone Stuart Jauregui MD PCP Encounter Details Date Type Department Care Team Description 02/01/2019 Documentation [facility] Radha Nixon MD Cardiovascular [address] [facility] [address] [place] [id number] [facility] [address] [place] [address] [phone] Social History Tobacco Use Types Packs/Day Years Used Date Never Smoker Smokeless Tobacco: Never Used Alcohol Use Drinks/Week oz/Week Comments No Sex Assigned at Date Recorded Not on file as of this encounter Plan of Treatment Date Type Specialty Care Team Description 04/13/2019 Office Visit Cardiology Radha Nixon MD [address] [place] [address] [phone] as of this encounter Visit Diagnoses Not on filein this encounter
--- OUTSIDE RECORDS SUMMARY | 2019-03-16 19:42 | XMS REPORT ---
Author Author Migration, Doctor Organization [facility] Address Unknown Phone Unavailable Care Team Providers Care Ems Educator Name Role Phone Migration, Doctor Unavailable Unavailable PROBLEMS Type Condition ICD9-CM Code OBL77-IX Code Onset Dates Condition Status SNOMED Code Problem Arthritis M19.90 Active 1618993 Problem Chronic kidney disease (CKD) stage G1/A1, glomerular filtration rate (GFR) equal to or greater than 90 mL/min/1.73 square meter and albuminuria creatinine ratio less than 30 mg/g N18.1 Active 016343495 Problem Gastro-esophageal reflux disease without esophagitis K21.9 Active 693688987 Problem Paroxysmal atrial fibrillation I48.0 Active 958741828 Problem 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 Active 099585369 Problem Chronic diastolic heart failure I50.32 Active 246351400 Problem Secondary hyperparathyroidism of renal origin N25.81 Active 68463439 Problem Falling R29.6 Active 307193288 Problem MDD (major depressive disorder), recurrent, in partial remission F33.41 Active 26391037 Problem Failure to thrive in adult R62.7 Active 525729448 Problem Generalized anxiety disorder F41.1 Active 22627933 Problem Acquired hypothyroidism E03.9 Active 941821490 Problem Carpal tunnel syndrome of left wrist G56.02 Active 47488098 Problem Hypothyroidism E03.9 Active 08880129 Problem Paroxysmal a-fib I48.0 Active 16387203 ALLERGIES No Information ENCOUNTERS Encounter Location Date Diagnosis [facility] [address] [address] Jan, Falling R29.6 ; Failure to thrive in adult R62.7 and Dehydration E86.0 [facility] [address] [address] Jan, [facility] [address] [address] Dec, Lumbar radiculopathy M54.16 [facility] [id number] [address] Dec, [facility] [id number] [place] [address] Dec, [facility] [id number] [place] [address] Dec, Arthritis M19.90 [facility] [id number] [place] [address] Dec, [facility] [id number] [place] [address] Dec, Arthritis M19.90 [facility] [id number] [place] [address] Nov, [facility] [id number] [place] [address] Nov, Generalized anxiety disorder F41.1 [facility] [id number] [place] [address] Oct, Paroxysmal a-fib I48.0 [facility] [id number] [place] [address] Oct, Paroxysmal atrial fibrillation I48.0 [facility] [id number] [place] [address] Oct, Paroxysmal a-fib I48.0 [facility] [id number] [place] [address] Sep, Arthritis M19.90 ; Hypothyroidism E03.9 and Left shoulder pain M25.512 [facility] [id number] [place] [address] Sep, [facility] [id number] [place] [address] Aug, Generalized anxiety disorder F41.1 [facility] [address] [place] [address] Aug, [facility] [id number] [place] [address] Jul, Depression F32.9 [facility] [id number] [place] [address] 15 Jul, 2018 [place] [address] [address] Jul, [facility] [address] [address] Jun, Depression F32.9 [facility] [address] [address] 31 May, 2018 Arthritis M19.90 and Carpal tunnel syndrome of left wrist G56.02 [facility] [address] [address] May, [facility] [id number] [place] [address] May, Generalized anxiety disorder F41.1 [facility] [address] [address] May, Chronic kidney disease, stage 1 N18.1 [facility] [id number] [place] [address] May, Chronic kidney disease, stage 1 N18.1 and Chronic diastolic heart failure I50.32 [facility] [id number] [place] [address] Mar, Pain, dental K08.89 [facility] [address] [address] February, Medicare annual wellness visit, initial Z00.00 ; MDD (major depressive disorder), recurrent, in partial remission F33.41 ; Atrial fibrillation, unspecified type I48.91 ; Chronic diastolic heart failure I50.32 ; Secondary hyperparathyroidism of renal origin N25.81 ; Acquired hypothyroidism E03.9 ; Anxiety F41.9 ; Chronic kidney disease, stage 1 N18.1 and Encounter for immunization Z23 [place] [address] [address] February, Closed fracture of one rib of right side, initial encounter S22.31XA ; Acute cystitis with hematuria N30.01 ; Right flank pain R10.9 and Rib pain on right side R07.81 [facility] [address] [address] Jan, Acquired hypothyroidism E03.9 ; 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 ; Chronic kidney disease (CKD) stage G1/A1, glomerular filtration rate (GFR) equal to or greater than 90 mL/min/1.73 square meter and albuminuria creatinine ratio less than 30 mg/g N18.1 ; Paroxysmal atrial fibrillation I48.0 ; Chronic diastolic heart failure I50.32 and Secondary hyperparathyroidism of renal origin N25.81 [facility] [address] [address] Jan, Arthritis M19.90 [facility] [address] [address] Jan, Paroxysmal atrial fibrillation I48.0 [facility] [address] [address] Jan, Paroxysmal atrial fibrillation I48.0 [facility] [address] [address] Jan, [facility] [address] [address] Jan, Generalized anxiety disorder F41.1 [facility] [address] [address] Jan, Generalized anxiety disorder F41.1 and MDD (major depressive disorder), recurrent, in partial remission F33.41 [facility] [address] [address] Dec, Arthritis M19.90 [facility] [address] [place] [address] Dec, [facility] [id number] [place] [address] Nov, Arthritis M19.90 ; Chronic kidney disease (CKD) stage G1/A1, glomerular filtration rate (GFR) equal to or greater than 90 mL/min/1.73 square meter and albuminuria creatinine ratio less than 30 mg/g N18.1 and Anxiety F41.9 [facility] [id number] [place] [address] Nov, [facility] [id number] [place] [address] Nov, [facility] [id number] [place] [address] Nov, [facility] [id number] [place] [address] Nov, [facility] [id number] [place] [address] Nov, [facility] [id number] [place] [address] Oct, Generalized anxiety disorder F41.1 [facility] [id number] [place] [address] Sep, Atrial fibrillation, unspecified type I48.91 [facility] [address] [place] [address] Sep, Generalized anxiety disorder F41.1 and MDD (major depressive disorder), recurrent, in partial remission F33.41 [facility] [address] [place] [address] Sep, [facility] [id number] [place] [address] Aug, Generalized anxiety disorder F41.1 [facility] [address] [address] Aug, [facility] [id number] [place] [address] Aug, Paroxysmal atrial fibrillation I48.0 and Gastro-esophageal reflux disease without esophagitis K21.9 [facility] [id number] [place] [address] Jul, [facility] [id number] [place] [address] Jul, Generalized anxiety disorder F41.1 [facility] [id number] [place] [address] Jun, Generalized anxiety disorder F41.1 and MDD (major depressive disorder), recurrent, in partial remission F33.41 [facility] [id number] [place] [address] May, Recurrent major depressive disorder, in partial remission F33.41 [facility] [id number] [place] [address] May, Anxiety F41.9 and Paroxysmal atrial fibrillation I48.0 [facility] [address] [place] [address] Apr, Generalized anxiety disorder F41.1 [facility] [address] [address] Mar, [facility] [id number] [place] [address] Mar, Generalized anxiety disorder F41.1 and MDD (major depressive disorder), recurrent, in partial remission F33.41 [facility] [address] [address] February, Paroxysmal atrial fibrillation I48.0 and Anxiety F41.9 [facility] [address] [address] February, MDD (major depressive disorder), recurrent, in partial remission F33.41 [facility] [address] [place] [address] Jan, [facility] [address] [place] [address] Jan, [facility] [id number] [place] [address] Jan, [facility] [id number] [place] [address] Jan, [facility] [id number] [place] [address] Dec, [facility] [id number] [place] [address] Dec, Generalized anxiety disorder F41.1 [facility] [id number] [place] [address] Dec, Generalized anxiety disorder F41.1 and MDD (major depressive disorder), recurrent, in partial remission F33.41 [facility] [id number] [place] [address] Dec, [facility] [address] [place] [address] Dec, [facility] [id number] [place] [address] Dec, [facility] [id number] [place] [address] Nov, [facility] [id number] [place] [address] Nov, Gastro-esophageal reflux disease without esophagitis K21.9 [facility] [address] [place] [address] 10 Nov, 2016 Atrial fibrillation, unspecified type I48.91 and Anxiety F41.9 [facility] [address] [place] [address] Oct, [facility] [id number] [place] [address] Oct, [facility] [id number] [place] [address] Oct, Depression F32.9 and Atrial fibrillation, unspecified type I48.91 [facility] [id number] [place] [address] Oct, [facility] [id number] [place] [address] Sep, Depression F32.9 [facility] [id number] [place] [address] Sep, Recurrent major depressive disorder, in partial remission F33.41 and Generalized anxiety disorder F41.1 [facility] [id number] [place] [address] Sep, Paroxysmal atrial fibrillation I48.0 and Anxiety F41.9 [facility] [id number] [place] [address] Sep, [facility] [id number] [place] [address] Sep, [facility] [id number] [place] [address] Sep, Gastro-esophageal reflux disease without esophagitis K21.9 [facility] [id number] [place] [address] Aug, [facility] [id number] [place] [address] Aug, [facility] [id number] [place] [address] Aug, Atrial fibrillation, unspecified type I48.91 [facility] [id number] [place] [address] 11 Jul, 2016 Major depressive disorder, recurrent, in partial remission F33.41 and Generalized anxiety disorder F41.1 [facility] [id number] [place] [address] Jul, [facility] [id number] [place] [address] 30 Jun, 2016 [place] [address] [address] 15 Jun, 2016 Bronchitis J40 and Memory loss R41.3 [place] [address] [address] 14 Jun, 2016 Upper respiratory infection with cough and congestion J06.9 [facility] [id number] [place] [address] Apr, [place] [address] [address] Apr, Major depressive disorder, recurrent, unspecified F33.9 ; Anxiety F41.9 and Psychophysiological insomnia F51.04 [facility] [id number] [place] [address] Mar, [facility] [id number] [place] [address] Mar, [facility] [id number] [place] [address] February, [facility] [id number] [place] [address] Jan, Postural hypotension I95.1 [place] [place] [id number] [place] [address] Jan, Recurrent major depressive disorder in remission F33.40 ; Generalized anxiety disorder F41.1 and Psychophysiological insomnia F51.04 [place] [address] [address] 14 Dec, 2015 Generalized anxiety disorder F41.1 [facility] [address] [place] [address] Dec, Unspecified fall, initial encounter W19.XXXA [facility] [id number] [place] [address] Nov, Depression F32.9 and Anxiety F41.9 [facility] [id number] [place] [address] Oct, [facility] [id number] [place] [address] Oct, [facility] [id number] [place] [address] Oct, Chronic kidney disease, stage 3 (moderate) N18.3 [facility] [place] [id number] [place] [address] Oct, Head contusion S00.93XA ; Cervical strain S16.1XXA and Arthritis M19.90 [facility] [id number] [place] [address] Oct, Chronic kidney disease 585.9 [facility] [id number] [place] [address] Oct, Chronic kidney disease 585.9 [facility] [place] [id number] [place] [address] Oct, [facility] [id number] [place] [address] Sep, [facility] [id number] [place] [address] Aug, Chronic kidney disease N18.9 [facility] [id number] [place] [address] Aug, Chronic kidney disease (CKD) stage G1/A1, glomerular filtration rate (GFR) equal to or greater than 90 mL/min/1.73 square meter and albuminuria creatinine ratio less than 30 mg/g N18.1 and GERD (gastroesophageal reflux disease) K21.9 [facility] [id number] [place] [address] Aug, [facility] [id number] [place] [address] Jun, Generalized anxiety disorder 300.02 ; Major depression, recurrent 296.30 and Persistent 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 [facility] [id number] [place] [address] Jun, [facility] [address] [address] May, [facility] [id number] [place] [address] May, Generalized anxiety disorder 300.02 and Depression, major, recurrent, in remission 296.35 [facility] [id number] [place] [address] May, [facility] [id number] [place] [address] May, [facility] [id number] [place] [address] May, [facility] [id number] [place] [address] May, [facility] [id number] [place] [address] May, Chronic kidney disease 585.9 [facility] [id number] [place] [address] Apr, Chronic kidney disease 585.9 [facility] [id number] [place] [address] Apr, [facility] [id number] [place] [address] Apr, Arthropathy 716.90 ; Hyperlipidemia 272.4 ; Hypothyroidism 244.9 and GERD (gastroesophageal reflux disease) 530.81 [facility] [id number] [place] [address] Apr, Arthropathy 716.90 ; Hypothyroidism 244.9 ; Hyperlipidemia 272.4 and GERD (gastroesophageal reflux disease) 530.81 [facility] [id number] [place] [address] Mar, [facility] [id number] [place] [address] February, Depression, major, recurrent, in remission 296.35 and Generalized anxiety disorder 300.02 [facility] [id number] [place] [address] February, [facility] [id number] [place] [address] February, [facility] [id number] [place] [address] Jan, [facility] [id number] [place] [address] Jan, [facility] [id number] [place] [address] Oct, [facility] [id number] [place] [address] Oct, [facility] [id number] [place] [address] Oct, [facility] [id number] [place] [address] Oct, [facility] [id number] [place] [address] Oct, [facility] [id number] [place] [address] Oct, [facility] [place] [facility] [address] [id number] [place] [address] Sep, [facility] [place] [facility] [address] [id number] [place] [address] Sep, [facility] [place] [facility] [address] [id number] [place] [address] Aug, [facility] [place] [facility] [address] [id number] [place] [address] Aug, [facility] [place] [facility] [address] [id number] [place] [address] Aug, [facility] [place] [facility] [address] [id number] [place] [address] Aug, [facility] [place] [facility] [address] [id number] [place] [address] Jul, [facility] [place] [facility] [address] [id number] [place] [address] Jul, [facility] [place] [facility] [address] [id number] [place] [address] Jul, [facility] [place] [facility] [address] [id number] [place] [address] Jul, [facility] [place] [facility] [address] [id number] [place] [address] 29 Jun, 2014 [facility] [place] [facility] [address] [id number] [place] [address] 22 Jun, 2014 [facility] [place] [facility] [address] [id number] [place] [address] 22 Jun, 2014 [facility] [place] [facility] [address] [id number] [place] [address] 10 Jun, 2013 [facility] [place] [facility] [address] [id number] [place] [address] 10 Jun, 2014 [facility] [place] [facility] [address] [id number] [place] [address] Jun, [facility] [place] [facility] [address] [id number] [place] [address] Jun, [facility] [place] [facility] [address] [id number] [place] [address] May, [facility] [place] [facility] [address] [id number] [place] [address] May, [facility] [place] [facility] [address] [id number] [place] [address] May, [facility] [place] [facility] [address] [id number] [place] [address] May, [facility] [place] [facility] [address] [id number] [place] [address] Apr, [facility] [place] [facility] [address] [id number] [place] [address] Apr, [facility] [place] [facility] [address] [id number] [place] [address] Apr, [facility] [place] [facility] [address] [id number] [place] [address] Apr, [facility] [place] [facility] [address] [id number] [place] [address] Apr, [facility] [place] [facility] [address] [id number] [place] [address] Apr, [facility] [place] [facility] [address] [id number] [place] [address] Apr, [facility] [place] [facility] [address] [id number] [place] [address] Apr, [facility] [place] [facility] [address] [id number] [place] [address] Mar, [facility] [place] [facility] [address] [id number] [place] [address] Mar, [facility] [place] [facility] [address] [id number] [place] [address] Mar, [facility] [place] [facility] [address] [id number] [place] [address] Mar, [facility] [place] [facility] [address] [id number] [place] [address] Mar, [facility] [place] [facility] [address] [id number] [place] [address] Mar, [facility] [place] [facility] [address] [id number] [place] [address] Mar, [facility] [place] [facility] [address] [id number] [place] [address] Mar, [facility] [place] [facility] [address] [id number] [place] [address] Dec, [facility] [place] [facility] [address] [id number] [place] [address] Dec, [facility] [place] [facility] [address] [id number] [place] [address] Dec, [facility] [place] [facility] [address] [id number] [place] [address] Dec, [facility] [place] [facility] [address] [facility] [id number] [place] [address] Dec, [facility] [place] [facility] [address] [id number] [place] [address] Dec, [facility] [place] [facility] [address] [id number] [place] [address] Dec, [facility] [place] [facility] [address] [id number] [place] [address] Dec, [facility] [place] [facility] [address] [id number] [place] [address] Nov, [facility] [place] [facility] [address] [id number] [place] [address] Nov, [facility] [place] [facility] [address] [id number] [place] [address] Nov, [facility] [place] [facility] [address] [id number] [place] [address] Nov, 2013 [facility] [place] [facility] [address] [id number] [place] [address] Nov, [facility] [place] [facility] [address] [id number] [place] [address] Nov, [facility] [place] [facility] [address] [id number] [place] [address] Nov, [facility] [place] [facility] [address] [id number] [place] [address] Nov, [facility] [place] [facility] [address] [facility] [id number] [place] [address] Aug, [facility] [place] [facility] [address] [id number] [place] [address] Aug, [facility] [place] [facility] [address] [id number] [place] [address] Jul, [facility] [place] [facility] [address] [facility] [id number] [place] [address] Jul, [facility] [place] [facility] [address] [facility] [id number] [place] [address] Jul, [facility] [place] [facility] [address] [id number] [place] [address] 30 Jun, 2012 [facility] [place] [facility] [address] [id number] [place] [address] 30 Jun, 2013 [facility] [place] [facility] [address] [id number] [place] [address] 24 Jun, 2013 [facility] [place] [facility] [address] [facility] [id number] [place] [address] 04 Jun, 2013 [facility] [place] [facility] [address] [id number] [place] [address] Jun, [facility] [address] [id number] [place] [address] May, [facility] [address] [id number] [place] [address] Apr, [facility] [address] [id number] [place] [address] Apr, [facility] [address] [id number] [place] [address] Apr, [facility] [address] [id number] [place] [address] Mar, [facility] [address] [id number] [place] [address] Mar, [facility] [address] [id number] [place] [address] February, [facility] [address] [id number] [place] [address] February, [facility] [address] [id number] [place] [address] February, [facility] [address] [id number] [place] [address] February, [facility] [address] [id number] [place] [address] Jan, [facility] [address] [id number] [place] [address] Jan, [facility] [place] [facility] [address] [id number] [place] [address] Jan, [facility] [place] [facility] [address] [id number] [place] [address] Jan, [facility] [address] [id number] [place] [address] Dec, [facility] [place] [facility] [address] [id number] [place] [address] 13 Dec, 2012 [facility] [place] [facility] [address] [id number] [place] [address] Dec, [facility] [place] [facility] [address] [id number] [place] [address] 22 Nov, 2012 [facility] [place] [facility] [address] [id number] [place] [address] 15 Nov, 2012 [facility] [place] [facility] [address] [id number] [place] [address] Nov, [facility] [place] [facility] [address] [id number] [place] [address] Oct, [facility] [place] [facility] [address] [id number] [place] [address] Oct, [facility] [place] [facility] [address] [id number] [place] [address] Sep, [facility] [place] [facility] [address] [id number] [place] [address] Sep, [facility] [place] [facility] [address] [id number] [place] [address] Sep, [facility] [place] [facility] [address] [id number] [place] [address] Sep, [facility] [place] [facility] [address] [id number] [place] [address] Sep, [facility] [place] [facility] [address] [id number] [place] [address] Aug, [facility] [place] [facility] [address] [id number] [place] [address] Aug, [facility] [place] [facility] [address] [id number] [place] [address] Aug, [facility] [place] [facility] [address] [id number] [place] [address] Aug, [facility] [place] [facility] [address] [id number] [place] [address] Aug, [facility] [place] [facility] [address] [id number] [place] [address] Aug, [facility] [place] [facility] [address] [id number] [place] [address] Jun, [facility] [place] [facility] [address] [id number] [place] [address] Jun, [facility] [place] [facility] [address] [id number] [place] [address] Jun, [facility] [place] [facility] [address] [id number] [place] [address] May, [facility] [place] [facility] [address] [id number] [place] [address] May, [facility] [place] [facility] [address] [id number] [place] [address] May, [facility] [place] [facility] [address] [id number] [place] [address] May, [facility] [place] [facility] [address] [facility] [id number] [place] [address] Apr, [facility] [place] [facility] [address] [id number] [place] [address] Mar, [facility] [place] [facility] [address] [id number] [place] [address] Mar, [facility] [place] [facility] [address] [id number] [place] [address] Mar, [facility] [place] [facility] [address] [facility] [id number] [place] [address] February, [facility] [place] [facility] [address] [facility] [id number] [place] [address] February, [facility] [place] [facility] [address] [id number] [place] [address] February, [facility] [place] [facility] [address] [id number] [place] [address] February, [facility] [place] [facility] [address] [id number] [place] [address] Dec, [facility] [place] [facility] [address] [id number] [place] [address] Dec, [facility] [place] [facility] [address] [id number] [place] [address] Dec, [facility] [place] [facility] [address] [id number] [place] [address] Dec, [facility] [place] [facility] [address] [id number] [place] [address] Nov, [facility] [place] [facility] [address] [id number] [place] [address] Nov, [facility] [place] [facility] [address] [id number] [place] [address] Nov, [facility] [place] [facility] [address] [id number] [place] [address] Nov, [facility] [place] [facility] [address] [id number] [place] [address] Nov, [facility] [place] [facility] [address] [id number] [place] [address] Oct, [facility] [place] [facility] [address] [id number] [place] [address] Oct, [facility] [place] [facility] [address] [id number] [place] [address] Oct, [facility] [place] [facility] [address] [id number] [place] [address] Aug, [facility] [place] [facility] [address] [id number] [place] [address] Aug, [facility] [place] [facility] [address] [id number] [place] [address] Jul, [facility] [place] [facility] [address] [id number] [place] [address] Jul, [facility] [place] [facility] [address] [id number] [place] [address] Jul, [facility] [place] [facility] [address] [id number] [place] [address] Jul, [facility] [place] [facility] [address] [id number] [place] [address] Jul, [facility] [place] [facility] [address] [id number] [place] [address] Jul, [facility] [place] [facility] [address] [id number] [place] [address] Jul, [facility] [place] [facility] [address] [id number] [place] [address] Jul, [facility] [place] [facility] [address] [id number] [place] [address] May, [facility] [place] [facility] [address] [id number] [place] [address] February, [facility] [place] [facility] [address] [id number] [place] [address] Nov, [facility] [place] [facility] [address] [id number] [place] [address] Sep, [facility] [place] [facility] [address] [id number] [place] [address] Aug, [facility] [place] [facility] [address] [id number] [place] [address] Oct, [facility] [place] [facility] [address] [id number] [place] [address] Jul, [facility] [place] [facility] [address] [id number] [place] [address] Jun, [facility] [address] [facility] [id number] [place] [address] 16 Mar, 2009 [facility] [address] [facility] [id number] [place] [address] Mar, [facility] [address] [facility] [id number] [place] [address] 17 Nov, 2008 IMMUNIZATIONS No Known Immunizations SOCIAL HISTORY Never Assessed REASON FOR VISIT [facility]MR[facility] [place] VITAL SIGNS MEDICATIONS Unknown [...]
--- OUTSIDE RECORDS SUMMARY | 2019-03-16 19:42 | XMS REPORT | Encounter Summary ---
Author Author [facility] Organization [facility] Address Unknown Phone Unavailable Care Team Providers Care Ice Cream Vault Worker Name Role Phone Stuart Jauregui MD PCP Encounter Details Date Type Department Care Team Description 01/26/2019 Orders Only [facility] Radha Nixon MD PAF (paroxysmal atrial Cardiovascular [address] fibrillation) ([facility]) Consultants [facility] [address] [place] [address] [address] [place] [address] [phone] Social History Tobacco Use Types Packs/Day Years Used Date Never Smoker Smokeless Tobacco: Never Used Alcohol Use Drinks/Week oz/Week Comments No Sex Assigned at Date Recorded Not on file as of this encounter Plan of Treatment Date Type Specialty Care Team Description 04/13/2019 Office Visit Cardiology Radha Nixon MD [address] [place] [address] [phone] as of this encounter Procedures Procedure Name Priority Date/Time Associated Diagnosis Comments BASIC METABOLIC PANEL Routine 01/12/2019 PAF (paroxysmal atrial Results for this 12:00 AM CDT fibrillation) ([facility]) procedure are in the results section. in [...] Organization Address City/State/Zipcode Phone Number [facility] [address] [place] [address] in this encounter Visit Diagnoses Diagnosis PAF (paroxysmal atrial fibrillation) (HCC) Atrial fibrillation
--- OUTSIDE RECORDS SUMMARY | 2019-03-16 19:42 | XMS REPORT | Encounter Summary ---
Author Author [facility] Organization [facility] Address Unknown Phone Unavailable Care Team Providers Care Lock And Dam Repairer Name Role Phone Stuart Jauregui MD PCP Encounter Details Date Type Department Care Team Description 01/22/2019 Telephone [facility] Luciano Salas RNiron caster Consultants [address] [facility] [address] [place] [address] Social History Tobacco Use Types Packs/Day Years [...] Nixon MD [address] [place] [place] [address] [phone] as of this encounter Visit Diagnoses Diagnosis Persistent atrial fibrillation (HCC) Atrial fibrillation
--- OUTSIDE RECORDS SUMMARY | 2019-03-16 19:42 | XMS REPORT | Encounter Summary ---
Author Author [facility] Organization [facility] Address Unknown Phone Unavailable Care Team Providers Care Ingot Stripper Name Role Phone Stuart Jauregui MD PCP Reason for Visit * Reason Comments Medication Refill Encounter Details Date Type Department Care Team Description 01/10/2019 Refill [facility] Radha Nixon MD Medication Refill Cardiovascular [address] Consultants [facility] [address] [place] [place] [address] [address] [place] [address] [phone] Social History Tobacco Use Types Packs/Day Years Used Date Never Smoker Smokeless Tobacco: Never Used Alcohol Use Drinks/Week oz/Week Comments No Sex Assigned at Date Recorded Not on file as of this encounter Miscellaneous Notes * Telephone Encounter - Adeola Mustafa LPN - 01/12/2019 9:06 AM CDT 01/12/19 Adryan from [facility] in [facility] [phone]. I have Ms Doraod in offi ce and she said she was suppose to get lab requisition from Dr Hunter Nixon to reese sorensen work. We do not have the requisition. I will go ahead and draw her blood suad nichols on your call. Return call to Adryan --spoke with Magali informed of above conversation.Our fax number is [phone]. I will be faxing a BMP requisiition now an if not receiv ed with in half hr please return call to [phone].Verbalized understanding. Document faxed with conformation of successful fax of 2 pages-transmitted. * Telephone Encounter - Zoe Sanchez RN - 01/10/2019 3:13 PM CDT Patient called, spoke with her on phone, instructed that a bmp was ordered and s he needed to get it done, v/u in this encounter Plan of Treatment Date Type Specialty Care Team Description 04/13/2019 Office Visit Cardiology Radha Nixon MD [address] [facility] [address] [place], [place] [address] as of this encounter Results * Basic [...] Performing Organization Address City/State/Zipcode Phone Number [address] [place] [address] in this encounter Visit Diagnoses Diagnosis PAF (paroxysmal atrial fibrillation) (HCC) - Primary Atrial fibrillation
--- OUTSIDE RECORDS SUMMARY | 2019-03-16 19:42 | XMS REPORT | Encounter Summary ---
Author Author [facility] Organization [facility] Address Unknown Phone Unavailable Care Team Providers Care Manager Validation Name Role Phone Stuart Jauregui MD PCP Reason for Visit * Reason Comments Medication hold request/afib Encounter Details Date Type Department Care Team Description 01/08/2019 Telephone [facility] Ivette De La Garza sander operator hold Cardiovascular request/afib Consultants [address] [place] [address] [address] [place] [address] Social History Tobacco Use Types Packs/Day Years [...] that it is time to renew my appoi ntment. When I went to pre-op on Tuesday they said I was in a-fib so I thought I should get in sooner to see Dr Hunter Nixon. I would be home till after 2:15pm due to doctors appointment. Return call to pt I am aware you will not be home until after 2:15pm- I would li ke to leave you with the schedulers number ([phone]) and the blue pod nurse call back number ([phone]). Upon your return call please list any symptoms you may be having related to a-fib. * Telephone Encounter - Pat Loya, RN - 01/23/2019 4:41 PM CDT Pt called stating she had a pre op appt yesterday and they did and EKG which jericho wed afib. Pt states she is not having symptoms but thought she should let Dr. Antonio know. Pt has a dx of PAF. * Telephone Encounter - Ivette De La Garza RN - 01/08/2019 4:35 PM CDT Letter created and faxed to Dr. Adair office at [phone]. Confirmation of f ax received for 2 pages. * Telephone Encounter - Radha Nixon MD - 01/08/2019 4:10 PM CDT May proceed from cardiac standpoint Ok to hold * Telephone Encounter - Ivette De La Garza RN - 01/08/2019 2:30 PM CDT Received a VM from pt requesting a return call. I called and spoke w/ pt. Pt rep orts she is planning to have a shoulder surgery for a torn rotator cuff w/ Dr. Ninoska carrillo. Pt reports Dr. Adair's office is requesting cardiac clearance and also r ecommendations on hold time for her Eliquis. I called and spoke w/ Stan at Dr. Adair's office. He reports pt's shoulder alejandra jackie will be with general anesthesia, and typical hold time for aspirin is 5 day s prior to surgery and Eliquis can be 2 days prior. Stan reports the letter can be faxed to either [phone] or [phone]. in this encounter Plan of Treatment Date Type Specialty Care Team Description 04/13/2019 Office Visit Cardiology Radha Nixon MD [address] [facility] [address] [place] [address] [phone] as of this encounter Visit Diagnoses Not on filein this encounter
--- OUTSIDE RECORDS SUMMARY | 2019-03-16 19:42 | XMS REPORT | Encounter Summary ---
Author Author [facility] Organization [facility] Address Unknown Phone Unavailable Care Team Providers Care Slasher Name Role Phone Stuart Jauregui MD PCP Reason for Visit * Reason Comments Returning patient call Encounter Details Date Type Department Care Team Description 01/29/2019 Telephone [facility] Erika Rg RN Returning patient call Cardiovascular [facility]ants [address] [place] [address] [address] [place] [address] Social History Tobacco Use Types Packs/Day Years Used Date Never Smoker Smokeless Tobacco: Never Used Alcohol Use Drinks/Week oz/Week Comments No Sex Assigned at Date Recorded Not on file as of this encounter Miscellaneous Notes * Telephone Encounter - Erika Rg RN - 01/29/2019 11:16 AM CDT 01/29/19 See phone encounter of 01/08 Initially addressing cardiac clearance & 2 day hold of Eliquis for a shoulder surgery Note on 01/23 of pt having a pre op appt with EKG at that time showing A fib, mayank ed having symptoms On 01/25 of pre op EKG "they said I was in a-fib so I thought I should get in akosua ner to see Dr Hunter Nixon" Voice message left today by pt stating "returning your call from last a fternoon about a fib shortness of breath and swollen ankles their not real big b ut they are swollen. Just thought I'd return [...] a little more so she has much o f the day yet to see its effect. Pt does not weigh herself "I'm not one to go a round in my [facility]" Educated her on morning dry weight weighing for her wt. Instructed her to keep a simple diary of day/time/wt She reported that her shortness of breath does seem to be dependent on her activ ity, does not have SOA when at rest She just had her shoulder surgery on 01/24 so she is not sleeping well yet. She i s to be starting her physical therapy. Instructed pt to begin being consistent with Furosemide 1/2 tab Qother day inste ad of the M-W-F she has been doing, to start on 01/31 as she has taken a whole ta b each of the past 2 days She is to keep a diary of her weights I did discuss how during surgery she would have received IV flds, and for some p eople it doesn't take a lot of that to make someone feel swollen and have some e renae She is to call us with an update on 02/02 or sooner. Attempted to connect he r directly to a cadd drafter to discuss an appt as I could not speak to Dr Nixon availability. If she needs to arrange her annual appt then that can wait until Dr Nixon has availability, but if at some point she feels she is needing to be seen more urge ntly, we would rec she sees the first available provider. Advised her I would s end the cadd drafter a message Pt voiced understanding in this encounter Plan of Treatment Date Type Specialty Care Team Description 04/13/2019 Office Visit Cardiology Radha Nixon MD [address] [facility] [place] [address] [phone] as of this encounter Visit Diagnoses Not on filein this encounter
--- OUTSIDE RECORDS SUMMARY | 2019-03-16 19:43 | XMS REPORT ---
Author Author Migration, Doctor Organization [facility] Address Unknown Phone Unavailable Care Team Providers Care Electromechanic Name Role Phone Migration, Doctor Unavailable Unavailable PROBLEMS Type Condition ICD9-CM Code PWZ18-FY Code Onset Dates Condition Status SNOMED Code Problem Arthritis M19.90 Active 1724548 Problem Chronic kidney disease (CKD) stage G1/A1, glomerular filtration rate (GFR) equal to or greater than 90 mL/min/1.73 square meter and albuminuria creatinine ratio less than 30 mg/g N18.1 Active 644328945 Problem Gastro-esophageal reflux disease without esophagitis K21.9 Active 120806304 Problem Paroxysmal atrial fibrillation I48.0 Active 606841626 Problem 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 Active 952600104 Problem Chronic diastolic heart failure I50.32 Active 105760756 Problem Secondary hyperparathyroidism of renal origin N25.81 Active 21313899 Problem Falling R29.6 Active 769485854 Problem MDD (major depressive disorder), recurrent, in partial remission F33.41 Active 68898469 Problem Failure to thrive in adult R62.7 Active 959175901 Problem Generalized anxiety disorder F41.1 Active 51511064 Problem Acquired hypothyroidism E03.9 Active 742074205 Problem Carpal tunnel syndrome of left wrist G56.02 Active 80256275 Problem Hypothyroidism E03.9 Active 11911824 Problem Paroxysmal a-fib I48.0 Active 57524035 ALLERGIES No Information ENCOUNTERS Encounter Location Date Diagnosis [facility] [address], [place] [address] Jan, Falling R29.6 ; Failure to thrive in adult R62.7 and Dehydration E86.0 [facility] [address], [place] [address] Jan, [facility] [address] [address] Dec, Lumbar radiculopathy M54.16 [facility] [address] [address] Dec, [facility] [id number] [place] [address] Dec, [facility] [id number] [place] [address] Dec, Arthritis M19.90 [facility] [id number] [place] [address] Dec, [facility] [id number] [place] [address] Dec, Arthritis M19.90 [facility] [id number] [place] [address] Nov, [facility] [id number] [place] [address] Nov, Generalized anxiety disorder F41.1 [facility] [id number] [place] [address] Oct, Paroxysmal a-fib I48.0 [facility] [id number] [place] [address] Oct, Paroxysmal atrial fibrillation I48.0 [facility] [id number] [place] [address] Oct, Paroxysmal a-fib I48.0 [facility] [id number] [place] [address] Sep, Arthritis M19.90 ; Hypothyroidism E03.9 and Left shoulder pain M25.512 [facility] [id number] [place] [address] Sep, [facility] [id number] [place] [address] Aug, Generalized anxiety disorder F41.1 [facility] [address] [place] [address] Aug, [facility] [id number] [place] [address] Jul, Depression F32.9 [facility] [id number] [place] [address] 15 Jul, 2018 [place] [address] [address] Jul, [place] [address] [address] Jun, Depression F32.9 [place] [facility] [address] [address] 31 May, 2018 Arthritis M19.90 and Carpal tunnel syndrome of left wrist G56.02 [facility] [address] [address] May, [facility] [id number] [place] [address] May, Generalized anxiety disorder F41.1 [place] [address] [address] May, Chronic kidney disease, stage 1 N18.1 [facility] [id number] [place] [address] May, Chronic kidney disease, stage 1 N18.1 and Chronic diastolic heart failure I50.32 [facility] [id number] [place] [address] Mar, Pain, dental K08.89 [place] [address] [address] February, Medicare annual wellness visit, initial Z00.00 ; MDD (major depressive disorder), recurrent, in partial remission F33.41 ; Atrial fibrillation, unspecified type I48.91 ; Chronic diastolic heart failure I50.32 ; Secondary hyperparathyroidism of renal origin N25.81 ; Acquired hypothyroidism E03.9 ; Anxiety F41.9 ; Chronic kidney disease, stage 1 N18.1 and Encounter for immunization Z23 [place] [address] [address] February, Closed fracture of one rib of right side, initial encounter S22.31XA ; Acute cystitis with hematuria N30.01 ; Right flank pain R10.9 and Rib pain on right side R07.81 [place] [address] [address] Jan, Acquired hypothyroidism E03.9 ; 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 ; Chronic kidney disease (CKD) stage G1/A1, glomerular filtration rate (GFR) equal to or greater than 90 mL/min/1.73 square meter and albuminuria creatinine ratio less than 30 mg/g N18.1 ; Paroxysmal atrial fibrillation I48.0 ; Chronic diastolic heart failure I50.32 and Secondary hyperparathyroidism of renal origin N25.81 [place] [address] [address] Jan, Arthritis M19.90 [place] [address] [address] Jan, Paroxysmal atrial fibrillation I48.0 [place] [facility] [address] [address] Jan, Paroxysmal atrial fibrillation I48.0 [facility] [address] [address] Jan, [place] [address] [address] Jan, Generalized anxiety disorder F41.1 [facility] [address] [address] Jan, Generalized anxiety disorder F41.1 and MDD (major depressive disorder), recurrent, in partial remission F33.41 [place] [address] [address] Dec, Arthritis M19.90 [facility] [address] [place] [address] Dec, [facility] [id number] [place] [address] Nov, Arthritis M19.90 ; Chronic kidney disease (CKD) stage G1/A1, glomerular filtration rate (GFR) equal to or greater than 90 mL/min/1.73 square meter and albuminuria creatinine ratio less than 30 mg/g N18.1 and Anxiety F41.9 [facility] [id number] [place] [address] Nov, [facility] [id number] [place] [address] Nov, [facility] [id number] [place] [address] Nov, [facility] [id number] [place] [address] Nov, [facility] [id number] [place] [address] Nov, [facility] [id number] [place] [address] Oct, Generalized anxiety disorder F41.1 [facility] [id number] [place] [address] Sep, Atrial fibrillation, unspecified type I48.91 [facility] [address] [place] [address] Sep, Generalized anxiety disorder F41.1 and MDD (major depressive disorder), recurrent, in partial remission F33.41 [facility] [id number] [place] [address] Sep, [facility] [address] [place] [address] Aug, Generalized anxiety disorder F41.1 [facility] [address], [place] [address] Aug, [facility] [id number] [place] [address] Aug, Paroxysmal atrial fibrillation I48.0 and Gastro-esophageal reflux disease without esophagitis K21.9 [facility] [id number] [place] [address] Jul, [facility] [id number] [place] [address] Jul, Generalized anxiety disorder F41.1 [place] [place] [id number] [place] [address] Jun, Generalized anxiety disorder F41.1 and MDD (major depressive disorder), recurrent, in partial remission F33.41 [facility] [place] [id number] [place] [address] May, Recurrent major depressive disorder, in partial remission F33.41 [place] [id number] [place] [address] May, Anxiety F41.9 and Paroxysmal atrial fibrillation I48.0 [place] [address] [place] [address] Apr, Generalized anxiety disorder F41.1 [place] [address], [place] [address] Mar, [place] [id number] [place] [address] Mar, Generalized anxiety disorder F41.1 and MDD (major depressive disorder), recurrent, in partial remission F33.41 [facility] [address], [place] [address] February, Paroxysmal atrial fibrillation I48.0 and Anxiety F41.9 [facility] [address], [place] [address] February, MDD (major depressive disorder), recurrent, in partial remission F33.41 [facility] [id number] [place] [address] Jan, [facility] [id number] [place] [address] Jan, [facility] [id number] [place] [address] Jan, [facility] [id number] [place] [address] Jan, [facility] [id number] [place] [address] Dec, [facility] [id number] [place] [address] Dec, Generalized anxiety disorder F41.1 [facility] [id number] [place] [address] Dec, Generalized anxiety disorder F41.1 and MDD (major depressive disorder), recurrent, in partial remission F33.41 [facility] [id number] [place] [address] Dec, [facility] [id number] [place] [address] Dec, [facility] [id number] [place] [address] Dec, [facility] [address] [place] [address] Nov, [facility] [id number] [place] [address] Nov, Gastro-esophageal reflux disease without esophagitis K21.9 [facility] [address] [place] [address] 10 Nov, 2016 Atrial fibrillation, unspecified type I48.91 and Anxiety F41.9 [facility] [address] [place] [address] Oct, [facility] [id number] [place] [address] Oct, [facility] [id number] [place] [address] Oct, Depression F32.9 and Atrial fibrillation, unspecified type I48.91 [facility] [id number] [place] [address] Oct, [facility] [id number] [place] [address] Sep, Depression F32.9 [facility] [id number] [place] [address] Sep, Recurrent major depressive disorder, in partial remission F33.41 and Generalized anxiety disorder F41.1 [place] [id number] [place] [address] Sep, Paroxysmal atrial fibrillation I48.0 and Anxiety F41.9 [facility] [id number] [place] [address] Sep, [facility] [id number] [place] [address] Sep, [facility] [id number] [place] [address] Sep, Gastro-esophageal reflux disease without esophagitis K21.9 [facility] [id number] [place] [address] Aug, [facility] [id number] [place] [address] Aug, [facility] [id number] [place] [address] Aug, Atrial fibrillation, unspecified type I48.91 [facility] [id number] [place] [address] 11 Jul, 2016 Major depressive disorder, recurrent, in partial remission F33.41 and Generalized anxiety disorder F41.1 [place] [id number] [place] [address] Jul, [place] [id number] [place] [address] 30 Jun, 2016 [place] [address] [address] 15 Jun, 2016 Bronchitis J40 and Memory loss R41.3 [place] [address] [address] 14 Jun, 2016 Upper respiratory infection with cough and congestion J06.9 [place] [id number] [place] [address] Apr, [place] [address] [address] Apr, Major depressive disorder, recurrent, unspecified F33.9 ; Anxiety F41.9 and Psychophysiological insomnia F51.04 [place] [id number] [place] [address] Mar, [place] [id number] [place] [address] Mar, [place] [id number] [place] [address] February, [place] [id number] [place] [address] Jan, Postural hypotension I95.1 [place] [id number] [place] [address] Jan, Recurrent major depressive disorder in remission F33.40 ; Generalized anxiety disorder F41.1 and Psychophysiological insomnia F51.04 [place] [address] [address] 14 Dec, 2015 Generalized anxiety disorder F41.1 [facility] [address] [place] [address] Dec, Unspecified fall, initial encounter W19.XXXA [facility] [id number] [place] [address] Nov, Depression F32.9 and Anxiety F41.9 [place] [id number] [place] [address] Oct, [place] [id number] [place] [address] Oct, [facility] [id number] [place] [address] Oct, Chronic kidney disease, stage 3 (moderate) N18.3 [place] [id number] [place] [address] Oct, Head contusion S00.93XA ; Cervical strain S16.1XXA and Arthritis M19.90 [place] [address] [place] [address] Oct, Chronic kidney disease 585.9 [place] [address] [place] [address] Oct, Chronic kidney disease 585.9 [place] [id number] [place] [address] Oct, [place] [id number] [place] [address] Sep, [place] [id number] [place] [address] Aug, Chronic kidney disease N18.9 [place] [id number] [place] [address] Aug, Chronic kidney disease (CKD) stage G1/A1, glomerular filtration rate (GFR) equal to or greater than 90 mL/min/1.73 square meter and albuminuria creatinine ratio less than 30 mg/g N18.1 and GERD (gastroesophageal reflux disease) K21.9 [facility] [id number] [place] [address] Aug, [facility] [id number] [place] [address] Jun, Generalized anxiety disorder 300.02 ; Major depression, recurrent 296.30 and Persistent 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 [facility] [id number] [place] [address] Jun, [facility] [address] [address] May, [facility] [id number] [place] [address] May, Generalized anxiety disorder 300.02 and Depression, major, recurrent, in remission 296.35 [facility] [id number] [place] [address] May, [facility] [id number] [place] [address] May, [facility] [id number] [place] [address] May, [facility] [id number] [place] [address] May, [facility] [id number] [place] [address] May, Chronic kidney disease 585.9 [facility] [id number] [place] [address] Apr, Chronic kidney disease 585.9 [facility] [id number] [place] [address] Apr, [facility] [id number] [place] [address] Apr, Arthropathy 716.90 ; Hyperlipidemia 272.4 ; Hypothyroidism 244.9 and GERD (gastroesophageal reflux disease) 530.81 [facility] [id number] [place] [address] Apr, Arthropathy 716.90 ; Hypothyroidism 244.9 ; Hyperlipidemia 272.4 and GERD (gastroesophageal reflux disease) 530.81 [facility] [id number] [place] [address] Mar, [facility] [id number] [place] [address] February, Depression, major, recurrent, in remission 296.35 and Generalized anxiety disorder 300.02 [facility] [id number] [place] [address] February, [facility] [id number] [place] [address] February, [facility] [id number] [place] [address] Jan, [facility] [id number] [place] [address] Jan, [facility] [id number] [place] [address] Oct, [facility] [id number] [place] [address] Oct, [facility] [id number] [place] [address] Oct, [facility] [id number] [place] [address] Oct, [facility] [id number] [place] [address] Oct, [facility] [id number] [place] [address] Oct, [facility] [place] [facility] [address] [id number] [place] [address] Sep, [facility] [place] [facility] [address] [id number] [place] [address] Sep, [facility] [place] [facility] [address] [id number] [place] [address] Aug, [facility] [place] [facility] [address] [id number] [place] [address] Aug, [facility] [place] [facility] [address] [id number] [place] [address] Aug, [facility] [place] [facility] [address] [id number] [place] [address] Aug, [facility] [place] [facility] [address] [id number] [place] [address] Jul, [facility] [place] [facility] [address] [id number] [place] [address] Jul, [facility] [place] [facility] [address] [id number] [place] [address] Jul, [facility] [place] [facility] [address] [id number] [place] [address] Jul, [facility] [place] [facility] [address] [id number] [place] [address] 29 Jun, 2014 [facility] [place] [facility] [address] [id number] [place] [address] 22 Jun, 2014 [facility] [place] [facility] [address] [id number] [place] [address] 22 Jun, 2014 [facility] [place] [facility] [address] [id number] [place] [address] 10 Jun, 2013 [facility] [place] [facility] [address] [id number] [place] [address] 10 Jun, 2014 [facility] [place] [facility] [address] [id number] [place] [address] Jun, [facility] [place] [facility] [address] [id number] [place] [address] Jun, [facility] [place] [facility] [address] [id number] [place] [address] May, [facility] [place] [facility] [address] [id number] [place] [address] May, [facility] [place] [facility] [address] [id number] [place] [address] May, [facility] [place] [facility] [address] [id number] [place] [address] May, [facility] [place] [facility] [address] [id number] [place] [address] Apr, [facility] [place] [facility] [address] [id number] [place] [address] Apr, [facility] [place] [facility] [address] [id number] [place] [address] Apr, [facility] [place] [facility] [address] [id number] [place] [address] Apr, [facility] [place] [facility] [address] [id number] [place] [address] Apr, [facility] [place] [facility] [address] [id number] [place] [address] Apr, [facility] [place] [facility] [address] [id number] [place] [address] Apr, [facility] [place] [facility] [address] [id number] [place] [address] Apr, [facility] [place] [facility] [address] [id number] [place] [address] Mar, [facility] [place] [facility] [address] [id number] [place] [address] Mar, [facility] [place] [facility] [address] [id number] [place] [address] Mar, [facility] [place] [facility] [address] [id number] [place] [address] Mar, [facility] [place] [facility] [address] [id number] [place] [address] Mar, [facility] [place] [facility] [address] [id number] [place] [address] Mar, [facility] [place] [facility] [address] [id number] [place] [address] Mar, [facility] [place] [facility] [address] [id number] [place] [address] Mar, [facility] [place] [facility] [address] [id number] [place] [address] Dec, [facility] [place] [facility] [address] [id number] [place] [address] Dec, [facility] [place] [facility] [address] [id number] [place] [address] Dec, [facility] [place] [facility] [address] [id number] [place] [address] Dec, [facility] [place] [facility] [address] [facility] [id number] [place] [address] Dec, [facility] [place] [facility] [address] [id number] [place] [address] Dec, [facility] [place] [facility] [address] [id number] [place] [address] Dec, [facility] [place] [facility] [address] [id number] [place] [address] Dec, [facility] [place] [facility] [address] [id number] [place] [address] Nov, [facility] [place] [facility] [address] [id number] [place] [address] Nov, [facility] [place] [facility] [address] [id number] [place] [address] Nov, [facility] [place] [facility] [address] [id number] [place] [address] Nov, 2013 [facility] [place] [facility] [address] [id number] [place] [address] Nov, [facility] [place] [facility] [address] [id number] [place] [address] Nov, [facility] [place] [facility] [address] [id number] [place] [address] Nov, [facility] [place] [facility] [address] [id number] [place] [address] Nov, [facility] [place] [facility] [address] [facility] [id number] [place] [address] Aug, [facility] [place] [facility] [address] [id number] [place] [address] Aug, [facility] [place] [facility] [address] [id number] [place] [address] Jul, [facility] [place] [facility] [address] [facility] [id number] [place] [address] Jul, [facility] [place] [facility] [address] [facility] [id number], [place] [address] Jul, [facility] [place] [facility] [address] [id number], [place] [address] 30 Jun, 2012 [facility] [place] [facility] [address] [id number] [place] [address] 30 Jun, 2013 [facility] [place] [facility] [address] [id number] [place] [address] 24 Jun, 2013 [facility] [place] [facility] [address] [facility] [id number] [place] [address] 04 Jun, 2013 [facility] [place] [facility] [address] [id number] [place] [address] Jun, [facility] [address] [id number] [place] [address] May, [facility] [address] [id number] [place] [address] Apr, [facility] [address] [id number] [place] [address] Apr, [facility] [address] [id number] [place] [address] Apr, [facility] [address] [id number] [place] [address] Mar, [facility] [address] [id number] [place] [address] Mar, [facility] [address] [id number] [place] [address] February, [facility] [address] [id number] [place] [address] February, [facility] [address] [id number] [place] [address] February, [facility] [address] [id number] [place] [address] February, [facility] [address] [id number] [place] [address] Jan, [facility] [address] [id number] [place] [address] Jan, [facility] [place] [facility] [address] [id number] [place] [address] Jan, [facility] [place] [facility] [address] [id number] [place] [address] Jan, [facility] [address] [id number] [place] [address] Dec, [facility] [place] [facility] [address] [id number] [place] [address] 13 Dec, 2012 [facility] [place] [facility] [address] [id number] [place] [address] Dec, [facility] [place] [facility] [address] [id number] [place] [address] 22 Nov, 2012 [facility] [place] [facility] [address] [id number] [place] [address] 15 Nov, 2012 [facility] [place] [facility] [address] [id number] [place] [address] Nov, [facility] [place] [facility] [address] [id number] [place] [address] Oct, [facility] [place] [facility] [address] [id number] [place] [address] Oct, [facility] [place] [facility] [address] [id number] [place] [address] Sep, [facility] [place] [facility] [address] [id number] [place] [address] Sep, [facility] [place] [facility] [address] [id number] [place] [address] Sep, [facility] [place] [facility] [address] [id number] [place] [address] Sep, [facility] [place] [facility] [address] [id number], [place] [address] Sep, [facility] [place] [facility] [address] [id number] [place] [address] Aug, [facility] [place] [facility] [address] [id number] [place] [address] Aug, [facility] [place] [facility] [address] [id number] [place] [address] Aug, [facility] [place] [facility] [address] [id number], [place] [address] Aug, [facility] [place] [facility] [address] [id number] [place] [address] Aug, [facility] [place] [facility] [address] [id number] [place] [address] Aug, [facility] [place] [facility] [address] [id number] [place] [address] Jun, [facility] [place] [facility] [address] [id number] [place] [address] Jun, [facility] [place] [facility] [address] [id number] [place] [address] Jun, [facility] [place] [facility] [address] [id number] [place] [address] May, [facility] [place] [facility] [address] [id number] [place] [address] May, [facility] [place] [facility] [address] [id number] [place] [address] May, [facility] [place] [facility] [address] [id number] [place] [address] May, [facility] [place] [facility] [address] [facility] [id number] [place] [address] Apr, [facility] [place] [facility] [address] [id number] [place] [address] Mar, [facility] [place] [facility] [address] [id number], [place] [address] Mar, [facility] [place] [facility] [address] [id number] [place] [address] Mar, [facility] [place] [facility] [address] [facility] [id number] [place] [address] February, [facility] [place] [facility] [address] [facility] [id number] [place] [address] February, [facility] [place] [facility] [address] [id number] [place] [address] February, [facility] [place] [facility] [address] [id number] [place] [address] February, [facility] [place] [facility] [address] [id number] [place] [address] Dec, [facility] [place] [facility] [address] [id number] [place] [address] Dec, [facility] [place] [facility] [address] [id number] [place] [address] Dec, [facility] [place] [facility] [address] [id number] [place] [address] Dec, [facility] [place] [facility] [address] [id number] [place] [address] Nov, [facility] [place] [facility] [address] [id number] [place] [address] Nov, [facility] [place] [facility] [address] [id number] [place] [address] Nov, [facility] [place] [facility] [address] [id number] [place] [address] Nov, [facility] [place] [facility] [address] [id number] [place] [address] Nov, [facility] [place] [facility] [address] [id number] [place] [address] Oct, [facility] [place] [facility] [address] [id number] [place] [address] Oct, [facility] [place] [facility] [address] [id number] [place] [address] Oct, [facility] [place] [facility] [address] [id number] [place] [address] Aug, [facility] [place] [facility] [address] [id number] [place] [address] Aug, [facility] [place] [facility] [address] [id number] [place] [address] Jul, [facility] [place] [facility] [address] [id number] [place] [address] Jul, [facility] [place] [facility] [address] [id number] [place] [address] Jul, [facility] [place] [facility] [address] [id number] [place] [address] Jul, [facility] [place] [facility] [address] [id number] [place] [address] Jul, [facility] [place] [facility] [address] [id number] [place] [address] Jul, [facility] [place] [facility] [address] [id number] [place] [address] Jul, [facility] [place] [facility] [address] [id number] [place] [address] Jul, [facility] [place] [facility] [address] [id number] [place] [address] May, [facility] [place] [facility] [address] [id number] [place] [address] February, [facility] [place] [facility] [address] [id number] [place] [address] Nov, [facility] [place] [facility] [address] [id number] [place] [address] Sep, [facility] [place] [facility] [address] [id number] [place] [address] Aug, [facility] [place] [facility] [address] [id number] [place] [address] Oct, [facility] [place] [facility] [address] [id number] [place] [address] Jul, [facility] [place] [facility] [address] [id number] [place] [address] Jun, [facility] [address] [facility] [id number] [place] [address] 16 Mar, 2009 [facility] [address] [facility] [id number] [place] [address] Mar, [facility] [address] [facility] [id number], [place] [address] 17 Nov, 2008 IMMUNIZATIONS No Known Immunizations SOCIAL HISTORY Never Assessed REASON FOR VISIT EMR-[facility] [place] PLAN OF CARE VITAL SIGNS MEDICATIONS Unknown [...]
--- OUTSIDE RECORDS SUMMARY | 2019-03-16 19:44 | XMS REPORT ---
Author Author Migration, Doctor Organization [facility] Address Unknown Phone Unavailable Care Team Providers Care Montessori Program Director Name Role Phone Migration, Doctor Unavailable Unavailable PROBLEMS Type Condition ICD9-CM Code [id number] Code Onset Dates Condition Status SNOMED Code Problem Arthritis M19.90 Active 2386815 Problem Chronic kidney disease (CKD) stage G1/A1, glomerular filtration rate (GFR) equal to or greater than 90 mL/min/1.73 square meter and albuminuria creatinine ratio less than 30 mg/g N18.1 Active 462298020 Problem Generalized anxiety disorder F41.1 Active 85649634 Problem MDD (major depressive disorder), recurrent, in partial remission F33.41 Active 55011062 Problem 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 Active 534815778 Problem Hypothyroidism E03.9 Active 48047318 Problem Gastro-esophageal reflux disease without esophagitis K21.9 Active 199148483 Problem Paroxysmal a-fib I48.0 Active 26691667 Problem Paroxysmal atrial fibrillation I48.0 Active 118307800 Problem Chronic diastolic heart failure I50.32 Active 399956439 Problem Secondary hyperparathyroidism of renal origin N25.81 Active 26262145 Problem Acquired hypothyroidism E03.9 Active 208779776 Problem Carpal tunnel syndrome of left wrist G56.02 Active 78799869 ALLERGIES No Information ENCOUNTERS Encounter Location Date Diagnosis [place] [id number], [place] [address] Jan, [place] [id number], [place] [address] Dec, Lumbar radiculopathy M54.16 [place] [id number], [place] [address] Dec, [place] [id number] [address] Dec, [place] [address] [place] [id number] [place] [address] Dec, Arthritis M19.90 [facility] [id number] [place] [address] Dec, [facility] [id number] [place] [address] Dec, Arthritis M19.90 [facility] [id number] [place] [address] Nov, [facility] [id number] [place] [address] Nov, Generalized anxiety disorder F41.1 [facility] [address] [id number] [place] [address] Oct, Paroxysmal a-fib I48.0 [place] [address] [id number] [place] [address] Oct, Paroxysmal atrial fibrillation I48.0 [facility] [id number] [place] [address] Oct, Paroxysmal a-fib I48.0 [facility] [id number] [place] [address] Sep, Arthritis M19.90 ; Hypothyroidism E03.9 and Left shoulder pain M25.512 [facility] [id number] [place] [address] Sep, [facility] [id number] [place] [address] Aug, Generalized anxiety disorder F41.1 [facility] [id number] [place] [address] Aug, [facility] [id number] [place] [address] Jul, Depression F32.9 [facility] [id number] [place] [address] 15 Jul, 2018 [facility] [id number] [place] [address] Jul, [place] [address] [id number] [place] [address] 10 Jun, 2018 Depression F32.9 [facility] [id number] [place] [address] May, Arthritis M19.90 and Carpal tunnel syndrome of left wrist G56.02 [place] [id number] [place] [address] May, [place] [address] [address] May, Generalized anxiety disorder F41.1 [place] [address] [id number] [place] [address] May, Chronic kidney disease, stage 1 N18.1 [place] [id number] [place] [address] May, Chronic kidney disease, stage 1 N18.1 and Chronic diastolic heart failure I50.32 [facility] [id number] [place] [address] Mar, Pain, dental K08.89 [place] [address] [id number] [place] [address] February, Medicare annual wellness visit, initial Z00.00 ; MDD (major depressive disorder), recurrent, in partial remission F33.41 ; Atrial fibrillation, unspecified type I48.91 ; Chronic diastolic heart failure I50.32 ; Secondary hyperparathyroidism of renal origin N25.81 ; Acquired hypothyroidism E03.9 ; Anxiety F41.9 ; Chronic kidney disease, stage 1 N18.1 and Encounter for immunization Z23 [facility] [id number] [place] [address] February, Closed fracture of one rib of right side, initial encounter S22.31XA ; Acute cystitis with hematuria N30.01 ; Right flank pain R10.9 and Rib pain on right side R07.81 [place] [address] [address] Jan, Acquired hypothyroidism E03.9 ; 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 ; Chronic kidney disease (CKD) stage G1/A1, glomerular filtration rate (GFR) equal to or greater than 90 mL/min/1.73 square meter and albuminuria creatinine ratio less than 30 mg/g N18.1 ; Paroxysmal atrial fibrillation I48.0 ; Chronic diastolic heart failure I50.32 and Secondary hyperparathyroidism of renal origin N25.81 [place] [address] [address] Jan, Arthritis M19.90 [place] [address] [address] Jan, Paroxysmal atrial fibrillation I48.0 [place] [address] [address] Jan, Paroxysmal atrial fibrillation I48.0 [place] [address] [id number] [place] [address] Jan, [place] [address] [address] Jan, Generalized anxiety disorder F41.1 [place] [address] [address] [id number] [place] [address] Jan, Generalized anxiety disorder F41.1 and MDD (major depressive disorder), recurrent, in partial remission F33.41 [place] [address] [id number] [place] [address] Dec, Arthritis M19.90 [place] [address] [address] Dec, [place] [address] [id number] [place] [address] Nov, Arthritis M19.90 ; Chronic kidney disease (CKD) stage G1/A1, glomerular filtration rate (GFR) equal to or greater than 90 mL/min/1.73 square meter and albuminuria creatinine ratio less than 30 mg/g N18.1 and Anxiety F41.9 [place] [address] [place] [id number] [place] [address] Nov, [place] [address] [address] Nov, [place] [address] [address] Nov, [place] [address] [address] Nov, [place] [address] [address] Nov, [place] [address] [address] Oct, Generalized anxiety disorder F41.1 [place] [address] [id number] [place] [address] Sep, Atrial fibrillation, unspecified type I48.91 [place] [address] [address] [id number] [place] [address] Sep, Generalized anxiety disorder F41.1 and MDD (major depressive disorder), recurrent, in partial remission F33.41 [place] [address] [id number] [place] [address] Sep, [place] [address] [address] [id number] [place] [address] Aug, Generalized anxiety disorder F41.1 [place] [address] [place] [id number] [place] [address] Aug, [place] [address] [place] [address] [id number] [place] [address] Aug, Paroxysmal atrial fibrillation I48.0 and Gastro-esophageal reflux disease without esophagitis K21.9 [facility] [id number], [place] [address] Jul, [facility] [address] [id number] [place] [address] Jul, Generalized anxiety disorder F41.1 [facility] [id number], [place] [address] Jun, Generalized anxiety disorder F41.1 and MDD (major depressive disorder), recurrent, in partial remission F33.41 [facility] [id number], [place] [address] May, Recurrent major depressive disorder, in partial remission F33.41 [facility] [address] [id number] [place] [address] May, Anxiety F41.9 and Paroxysmal atrial fibrillation I48.0 [place] [address] [place] [id number] [place] [address] Apr, Generalized anxiety disorder F41.1 [facility] [id number] [place] [address] Mar, [facility] [address] [place] [id number] [place] [address] Mar, Generalized anxiety disorder F41.1 and MDD (major depressive disorder), recurrent, in partial remission F33.41 [facility] [id number], [place] [address] February, Paroxysmal atrial fibrillation I48.0 and Anxiety F41.9 [facility] [id number], [place] [address] February, MDD (major depressive disorder), recurrent, in partial remission F33.41 [facility] [id number], [place] [address] Jan, [facility] [id number] [place] [address] Jan, [facility] [id number] [place] [address] Jan, [facility] [id number] [place] [address] Jan, [facility] [id number] [place] [address] Dec, [facility] [id number] [place] [address] Dec, Generalized anxiety disorder F41.1 [facility] [address] [place] [id number] [place] [address] Dec, Generalized anxiety disorder F41.1 and MDD (major depressive disorder), recurrent, in partial remission F33.41 [facility] [address] [place] [id number] [place] [address] 15 Dec, 2016 [facility] [id number] [place] [address] 14 Dec, 2016 [facility] [id number] [place] [address] Dec, [facility] [id number] [place] [address] 28 Nov, 2016 [facility] [id number] [place] [address] Nov, Gastro-esophageal reflux disease without esophagitis K21.9 [facility] [id number] [place] [address] 10 Nov, 2016 Atrial fibrillation, unspecified type I48.91 and Anxiety F41.9 [facility] [id number] [place] [address] Oct, [facility] [id number] [place] [address] Oct, [facility] [id number] [place] [address] Oct, Depression F32.9 and Atrial fibrillation, unspecified type I48.91 [facility] [id number] [place] [address] Oct, [facility] [id number] [place] [address] Sep, Depression F32.9 [facility] [address] [address] [id number] [place] [address] Sep, Recurrent major depressive disorder, in partial remission F33.41 and Generalized anxiety disorder F41.1 [place] [address] [place] [id number] [place] [address] Sep, Paroxysmal atrial fibrillation I48.0 and Anxiety F41.9 [place] [address] [place] [id number] [place] [address] Sep, [facility] [address] [id number] [place] [address] Sep, [facility] [address] [place] [id number] [place] [address] Sep, Gastro-esophageal reflux disease without esophagitis K21.9 [facility] [id number] [place] [address] Aug, [facility] [address] [id number] [place] [address] Aug, [facility] [address] [id number] [place] [address] Aug, Atrial fibrillation, unspecified type I48.91 [facility] [address] [id number] [place] [address] Jul, Major depressive disorder, recurrent, in partial remission F33.41 and Generalized anxiety disorder F41.1 [facility] [id number] [place] [address] Jul, [place] [address] [place] [id number] [place] [address] 30 Jun, 2016 [facility] [id number] [place] [address] 15 Jun, 2016 Bronchitis J40 and Memory loss R41.3 [place] [id number] [place] [address] 14 Jun, 2016 Upper respiratory infection with cough and congestion J06.9 [facility] [address] [id number] [place] [address] Apr, [place] [address] [address] [id number] [place] [address] Apr, Major depressive disorder, recurrent, unspecified F33.9 ; Anxiety F41.9 and Psychophysiological insomnia F51.04 [place] [address] [address] [id number] [place] [address] Mar, [facility] [id number] [place] [address] Mar, [place] [address] [id number] [place] [address] February, [place] [address] [id number] [place] [address] Jan, Postural hypotension I95.1 [facility] [address] [id number] [place] [address] 14 Jan, 2016 Recurrent major depressive disorder in remission F33.40 ; Generalized anxiety disorder F41.1 and Psychophysiological insomnia F51.04 [facility] [address] [id number] [place] [address] 14 Dec, 2015 Generalized anxiety disorder F41.1 [facility] [id number] [place] [address] Dec, Unspecified fall, initial encounter W19.XXXA [facility] [id number] [place] [address] Nov, Depression F32.9 and Anxiety F41.9 [place] [address] [address] Oct, [place] [address] [address] Oct, [place] [address] [address] Oct, Chronic kidney disease, stage 3 (moderate) N18.3 [place] [address] [address] Oct, Head contusion S00.93XA ; Cervical strain S16.1XXA and Arthritis M19.90 [place] [address] [address] Oct, Chronic kidney disease 585.9 [place] [address] [address] Oct, Chronic kidney disease 585.9 [place] [address] [id number] [place] [address] Oct, [place] [address] [address] Sep, [place] [address] [id number] [place] [address] Aug, Chronic kidney disease N18.9 [place] [address] [address] Aug, Chronic kidney disease (CKD) stage G1/A1, glomerular filtration rate (GFR) equal to or greater than 90 mL/min/1.73 square meter and albuminuria creatinine ratio less than 30 mg/g N18.1 and GERD (gastroesophageal reflux disease) K21.9 [place] [address] [id number] [place] [address] Aug, [place] [address] [address] [address] Jun, Generalized anxiety disorder 300.02 ; Major depression, recurrent 296.30 and Persistent 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 [facility] [id number] [place] [address] Jun, [facility] [id number] [place] [address] May, [facility] [id number] [place] [address] May, Generalized anxiety disorder 300.02 and Depression, major, recurrent, in remission 296.35 [facility] [address] [id number] [place] [address] May, [facility] [id number] [place] [address] May, [facility] [id number] [place] [address] May, [facility] [id number] [place] [address] May, [facility] [id number] [place] [address] May, Chronic kidney disease 585.9 [facility] [id number] [place] [address] Apr, Chronic kidney disease 585.9 [facility] [id number] [place] [address] Apr, [facility] [id number] [place] [address] Apr, Arthropathy 716.90 ; Hyperlipidemia 272.4 ; Hypothyroidism 244.9 and GERD (gastroesophageal reflux disease) 530.81 [facility] [id number], [place] [address] Apr, Arthropathy 716.90 ; Hypothyroidism 244.9 ; Hyperlipidemia 272.4 and GERD (gastroesophageal reflux disease) 530.81 [facility] [id number], [place] [address] Mar, [facility] [id number] [place] [address] February, Depression, major, recurrent, in remission 296.35 and Generalized anxiety disorder 300.02 [facility] [id number] [place] [address] February, [facility] [id number] [place] [address] February, [facility] [id number] [place] [address] Jan, [facility] [id number] [place] [address] Jan, [facility] [id number] [place] [address] Oct, [facility] [id number], [place] [address] Oct, [facility] [id number] [place] [address] Oct, [facility] [id number], [place] [address] Oct, [facility] [id number], [place] [address] Oct, [facility] [id number], [place] [address] Oct, [facility] [id number] [place] [address] Sep, [facility] [id number], [place] [address] Sep, [facility] [id number] [place] [address] Aug, [facility] [place] [facility] [address] [id number] [place] [address] Aug, [facility] [place] [facility] [address] [id number] [place] [address] Aug, [facility] [place] [facility] [address] [id number] [place] [address] Aug, [facility] [place] [facility] [address] [id number] [place] [address] Jul, [facility] [place] [facility] [address] [id number] [place] [address] Jul, [facility] [place] [facility] [address] [id number] [place] [address] Jul, [facility] [place] [facility] [address] [id number] [place] [address] Jul, [facility] [place] [facility] [address] [id number] [place] [address] 29 Jun, 2014 [facility] [place] [facility] [address] [id number] [place] [address] Jun, [facility] [place] [facility] [address] [id number] [place] [address] Jun, [facility] [place] [facility] [address] [id number] [place] [address] Jun, [facility] [place] [facility] [address] [id number] [place] [address] 10 Jun, 2014 [facility] [place] [facility] [address] [id number] [place] [address] Jun, [facility] [place] [facility] [address] [id number] [place] [address] Jun, [facility] [place] [facility] [address] [id number] [place] [address] May, [facility] [place] [facility] [address] [id number] [place] [address] May, [facility] [place] [facility] [address] [id number] [place] [address] May, [facility] [place] [facility] [address] [id number] [place] [address] May, [facility] [place] [facility] [address] [id number] [place] [address] Apr, [facility] [place] [facility] [address] [id number] [place] [address] Apr, [facility] [place] [facility] [address] [id number] [place] [address] Apr, [facility] [place] [facility] [address] [id number] [place] [address] Apr, [facility] [place] [facility] [address] [id number] [place] [address] Apr, [facility] [place] [facility] [address] [id number] [place] [address] Apr, [facility] [place] [facility] [address] [id number] [place] [address] Apr, [facility] [place] [facility] [address] [id number] [place] [address] Apr, [facility] [place] [facility] [address] [id number] [place] [address] Mar, [facility] [place] [facility] [address] [id number] [place] [address] Mar, [facility] [place] [facility] [address] [id number] [place] [address] Mar, [facility] [place] [facility] [address] [id number] [place] [address] Mar, [facility] [place] [facility] [address] [id number] [place] [address] Mar, [facility] [place] [facility] [address] [id number] [place] [address] Mar, [facility] [place] [facility] [address] [id number] [place] [address] Mar, [facility] [place] [facility] [address] [id number] [place] [address] Mar, [facility] [place] [facility] [address] [id number] [place] [address] Dec, [facility] [place] [facility] [address] [id number] [place] [address] Dec, [facility] [place] [facility] [address] [id number] [place] [address] Dec, [facility] [place] [facility] [address] [id number] [place] [address] Dec, [facility] [place] [facility] [address] [id number] [place] [address] Dec, [facility] [place] [facility] [address] [id number] [place] [address] Dec, [facility] [place] [facility] [address] [id number] [place] [address] Dec, [facility] [place] [facility] [address] [id number] [place] [address] Dec, [facility] [place] [facility] [address] [id number] [place] [address] Nov, [facility] [place] [facility] [address] [id number] [place] [address] Nov, [facility] [place] [facility] [address] [id number] [place] [address] Nov, [facility] [place] [facility] [address] [id number] [place] [address] Nov, [facility] [place] [facility] [address] [id number] [place] [address] 14 Nov, 2013 [facility] [address] [id number] [place] [address] 14 Nov, 2013 [facility] [place] [facility] [address] [id number] [place] [address] Nov, [facility] [address] [id number] [place] [address] Nov, [facility] [place] [facility] [address] [id number] [place] [address] Aug, [facility] [place] [facility] [address] [id number] [place] [address] Aug, [facility] [place] [facility] [address] [id number] [place] [address] Jul, [facility] [place] [facility] [address] [id number] [place] [address] Jul, [facility] [place] [facility] [address] [id number] [place] [address] Jul, [facility] [place] [facility] [address] [facility] [id number] [place] [address] 30 Jun, 2013 [facility] [place] [facility] [address] [id number] [place] [address] 30 Jun, 2013 [facility] [place] [facility] [address] [id number] [place] [address] 24 Jun, 2013 [facility] [place] [facility] [address] [id number] [place] [address] Jun, [facility] [place] [facility] [address] [id number] [place] [address] 04 Jun, 2013 [facility] [place] [facility] [address] [id number] [place] [address] May, [facility] [place] [facility] [address] [id number] [place] [address] Apr, [facility] [address] [id number] [place] [address] Apr, [facility] [place] [facility] [address] [id number] [place] [address] Apr, [facility] [address] [id number] [place] [address] Mar, [facility] [place] [facility] [address] [id number] [place] [address] Mar, [facility] [address] [id number] [place] [address] February, [facility] [place] [facility] [address] [id number] [place] [address] February, [facility] [address] [id number] [place] [address] February, [facility] [address] [id number] [place] [address] February, [facility] [place] [facility] [address] [id number] [place] [address] Jan, [facility] [place] [facility] [address] [id number] [place] [address] Jan, [facility] [place] [facility] [address] [id number] [place] [address] Jan, [facility] [place] [facility] [address] [id number], [place] [address] 04 Jan, 2013 [facility] [place] [facility] [address] [id number] [place] [address] Dec, [facility] [place] [facility] [address] [id number] [place] [address] 13 Dec, 2012 [facility] [place] [facility] [address] [id number] [place] [address] Dec, [facility] [place] [facility] [address] [id number], [place] [address] Nov, [facility] [address] [id number] [place] [address] 15 Nov, 2012 [facility] [place] [facility] [address] [id number] [place] [address] Nov, [facility] [address] [id number] [place] [address] Oct, [facility] [place] [facility] [address] [id number] [place] [address] Oct, [facility] [address] [id number] [place] [address] Sep, [facility] [address] [id number] [place] [address] Sep, [facility] [address] [id number] [place] [address] Sep, [facility] [address] [id number] [place] [address] Sep, [facility] [address] [id number] [place] [address] Sep, [facility] [address] [facility] [id number] [place] [address] Aug, [facility] [address] [id number] [place] [address] Aug, [facility] [place] [facility] [address] [id number] [place] [address] Aug, [facility] [place] [facility] [address] [id number] [place] [address] Aug, [facility] [place] [facility] [address] [id number] [place] [address] Aug, [facility] [address] [id number] [place] [address] Aug, [facility] [place] [facility] [address] [id number] [place] [address] Jun, [facility] [place] [facility] [address] [id number] [place] [address] Jun, [facility] [place] [facility] [address] [id number] [place] [address] Jun, [facility] [place] [facility] [address] [id number] [place] [address] May, [facility] [place] [facility] [address] [id number] [place] [address] May, [facility] [place] [facility] [address] [id number] [place] [address] May, [facility] [place] [facility] [address] [id number] [place] [address] May, [facility] [place] [facility] [address] [id number] [place] [address] Apr, [facility] [place] [facility] [address] [id number] [place] [address] Mar, [facility] [place] [facility] [address] [id number] [place] [address] Mar, [facility] [place] [facility] [address] [id number] [place] [address] Mar, [facility] [place] [facility] [address] [id number] [place] [address] February, [facility] [place] [facility] [address] [id number] [place] [address] February, [facility] [place] [facility] [address] [id number] [place] [address] February, [facility] [place] [facility] [address] [id number] [place] [address] February, [facility] [place] [facility] [address] [id number] [place] [address] Dec, [facility] [address] [id number] [place] [address] Dec, [facility] [place] [facility] [address] [id number] [place] [address] Dec, [facility] [place] [facility] [address] [facility] [id number] [place] [address] Dec, [facility] [place] [facility] [address] [id number] [place] [address] Nov, [facility] [place] [facility] [address] [id number] [place] [address] Nov, [facility] [place] [facility] [address] [facility] [id number] [place] [address] Nov, [facility] [address] [facility] [id number] [place] [address] Nov, [facility] [place] [facility] [address] [facility] [id number] [place] [address] Nov, [facility] [place] [facility] [address] [facility] [id number] [place] [address] Oct, [facility] [place] [facility] [address] [facility] [id number] [place] [address] Oct, [facility] [place] [facility] [address] [facility] [id number] [place] [address] Oct, [facility] [place] [facility] [address] [facility] [id number], [place] [address] Aug, [facility] [place] [facility] [address] [facility] [id number] [place] [address] Aug, [facility] [place] [facility] [address] [facility] [id number] [place] [address] Jul, [facility] [place] [facility] [address] [facility] [id number] [place] [address] Jul, [facility] [place] [facility] [address] [id number] [place] [address] Jul, [facility] [place] [facility] [address] [id number] [place] [address] Jul, [facility] [place] [facility] [address] [id number] [place] [address] 18 Jul, 2011 [facility] [place] [facility] [address] [id number] [place] [address] 17 Jul, 2011 [facility] [place] [facility] [address] [id number] [place] [address] Jul, [facility] [place] [facility] [address] [id number] [place] [address] Jul, [facility] [place] [facility] [address] [id number] [place] [address] May, [facility] [place] [facility] [address] [id number] [place] [address] February, [facility] [place] [facility] [address] [id number] [place] [address] Nov, [facility] [place] [facility] [address] [id number] [place] [address] Sep, [facility] [place] [facility] [address] [id number] [place] [address] Aug, [facility] [place] [facility] [address] [id number] [place] [address] 14 Oct, 2009 [facility] [place] [facility] [address] [id number] [place] [address] Jul, [facility] [place] [facility] [address] [id number] [place] [address] 18 Jun, 2009 [facility] [place] [facility] [address] [id number] [place] [address] 16 Mar, 2009 [facility] [place] [facility] [address] [id number] [place] [address] Mar, [facility] [address] [facility] [id number] [place] [address] 17 Nov, 2008 IMMUNIZATIONS No Known Immunizations SOCIAL HISTORY Never Assessed REASON FOR VISIT [place] [place] VITAL SIGNS MEDICATIONS Unknown [...]
[2019-03-16 20:06] LABS: BASOPHILS % (AUTO) 1 % (0-10); EOSINOPHILS # (AUTO) 0.1 10^3/uL (0.0-0.3); EOSINOPHILS % (AUTO) 1 % (0-10); HEMATOCRIT 42 % (35-52); HEMOGLOBIN 14.6 G/DL (11.5-16.0); LYMPHOCYTES # (AUTO) 3.4 X 10^3 (1.0-4.0); LYMPHOCYTES % (AUTO) 39 % (12-44); MEAN CORPUSCULAR HEMOGLOBIN 32 PG (25-34); MEAN CORPUSCULAR HGB CONC 35 G/DL (32-36); MEAN CORPUSCULAR VOLUME 92 FL (80-99); MEAN PLATELET VOLUME 9.8 FL (7.4-10.4); MONOCYTES # (AUTO) 0.9 X 10^3 (0.0-1.0); MONOCYTES % (AUTO) 10 % (0-12); NEUTROPHILS # (AUTO) 4.4 X 10^3 (1.8-7.8); NEUTROPHILS % (AUTO) 50 % (42-75); PLATELET COUNT 142 10^3/uL (130-400); RED CELL DISTRIBUTION WIDTH 15.2 % (10.0-14.5); WHITE BLOOD COUNT 8.8 10^3/uL (4.3-11.0)
[2019-03-16 20:26] LABS: ALANINE AMINOTRANSFERASE 14 U/L (0-55); ALBUMIN 3.9 GM/DL (3.2-4.5); ALKALINE PHOSPHATASE 166 U/L (40-136); BILIRUBIN,TOTAL 1.2 MG/DL (0.1-1.0); BUN/CREATININE RATIO 12; CALCIUM 9.7 MG/DL (8.5-10.1); CARBON DIOXIDE 21 MMOL/L (21-32); CHLORIDE 99 MMOL/L (98-107); GFR ESTIMATED 48; GLUCOSE 81 MG/DL (70-105); MAGNESIUM 1.9 MG/DL (1.8-2.4); POTASSIUM 3.6 MMOL/L (3.6-5.0); SODIUM 136 MMOL/L (135-145); TOTAL PROTEIN 6.9 GM/DL (6.4-8.2)
--- NOTE | 2019-03-16 20:34 | Diagnostic Imaging Report ---
INDICATION: Shortness of breath and leg swelling. EXAMINATION: PA and lateral views of the chest were obtained. COMPARISON: Prior examination from 02/11/2019. FINDINGS: Heart size is upper limits of normal. Air-trapping compatible with COPD. There is no pleural effusion, pneumothorax or pneumonia. The mediastinum is unremarkable. IMPRESSION: 1. COPD and mild cardiomegaly. 2. No acute cardiopulmonary abnormality. Dictated by: Dictated on workstation # [id number]
--- NOTE | 2019-03-16 20:48 | ED Respiratory ---
General Chief Complaint: Respiratory Problems Stated Complaint: SOA Nursing Triage Note: AMBULATORY TO ED WITH C/O SOA. STATES SHE HAS ANXIETY WHICH USUALLY CAUSES SOA, TOOK 1MG XANAX 5 MIN METAL SPRAYER. RECENT FALL AND ACUTE REHAB STAY. FRIEND IN ROOM STATES PT LEGS HAVE BEEN SWOLLEN LATELY. Source: patient Exam Limitations: no limitations History of Present Illness Date Seen by Provider: March 16, 2019 Time Seen by Provider: 19:44 Initial Comments This 79-year-old woman presents to the emergency room with complaints of shortness of breath worsening tonight. She has history of systolic dysfunction with a slightly decreased EF on echocardiogram earlier this month. She attributes her shortness of breath to anxiety and she takes an shortly before coming to the emergency room. She reports accidentally taking a double dose of her medications yesterday morning. She therefore did not take her medications last night. She has taken her medications at their usual times today. She has some increased swelling in her lower extremities in the recent days. She denies cough or fever. Patient has chronic atrial fibrillation and cardiomyopathy. She was recently admitted to the hospital for debility and falls. Allergies and Home Medications Allergies Coded Allergies: morphine (Verified Adverse Reaction, Mild, N/V, 01/22/19) Uncoded Allergies: TAPE (Allergy, Mild, RASH, 01/22/19) Home Medications Acetaminophen 325 Mg Tablet, 325 MG PO Q8HR PRN for PAIN-MILD Prescribed by: PATRICE ISAAC on 03/01/19825 Alprazolam 0.5 Mg Tablet, 0.5 MG PO DAILY@1000 Prescribed by: PATRICE ISAAC on 03/01/19825 Alprazolam 1 Mg Tablet, 1 MG PO HS Prescribed by: PATRICE ISAAC on 03/01/19825 Apixaban 2.5 Mg Tablet, 2.5 MG PO BID, (Reported) Aspirin 81 Mg Tablet.dr, 81 MG PO MoWeFr, (Reported) Bupropion HCl 150 Mg Tablet.er, 150 MG PO BID, (Reported) Cholecalciferol (Vitamin D3) 1,000 Unit Capsule, 1,000 UNIT PO DAILY, (Reported) Digoxin 125 Mcg Tablet, 0.125 MG PO DAILY Prescribed by: PATRICE ISAAC on 03/01/19825 Enalapril Maleate 2.5 Mg Tablet, 2.5 MG PO DAILY Prescribed by: PATRICE ISAAC on 03/01/19825 Ferrous Sulfate 325 Mg Tablet, 325 MG PO DAILY, (Reported) Flecainide Acetate 50 Mg Tablet, 50 MG PO BID, (Reported) Furosemide 20 Mg Tablet, 20 MG PO DAILY Prescribed by: PATRICE ISAAC on 03/01/19825 Gabapentin 300 Mg Capsule, 300 MG PO HS, (Reported) Levothyroxine Sodium 25 Mcg Tablet, 25 MCG PO DAILY, (Reported) Metoprolol Tartrate 25 Mg Tablet, 25 MG PO BID, (Reported) Omeprazole 20 Mg Capsule.dr, 20 MG PO DAILY, (Reported) Polyethylene Glycol 3350 17 Gm Powd.pack, 17 GM PO DAILY PRN for CONSTIPATION-2ND LINE, (Reported) Potassium Chloride 10 Meq Tablet.er, 10 MEQ PO DAILY@0700 Prescribed by: PATRICE ISAAC on 03/01/19825 Pravastatin Sodium 40 Mg Tablet, 40 MG PO HS, (Reported) Tramadol HCl 50 Mg Tablet, 50 MG PO Q6H PRN for PAIN-MODERATE Prescribed by: PATRICE ISAAC on 03/01/19825 Trazodone HCl 50 Mg Tablet, 50 MG PO HS Prescribed by: PATRICE ISAAC on 03/01/19825 Patient Home Medication List Home Medication List Reviewed: Yes Review of Systems Review of Systems Constitutional: no symptoms reported EENTM: no symptoms reported Respiratory: see HPI Cardiovascular: see HPI Gastrointestinal: no symptoms reported Genitourinary: no symptoms reported : No Musculoskeletal: no symptoms reported Skin: no symptoms reported Psychiatric/Neurological: See HPI Hematologic/Lymphatic: No Symptoms Reported Immunological/Allergic: no symptoms reported Past Heqabhg-Kynisw-Flxhky Hx Patient Social History Alcohol Use: Denies Use Recreational Drug Use: No 2nd Hand Smoke Exposure: No Recent Foreign Travel: No Contact w/Someone Who Travel: No Recent Infectious Disease Expo: No Recent Hopitalizations: Yes (LEFT ROTATOR CUFF SURGERY 4-19; RECENT STAY IN ACUTE REHAB) Immunizations Up To Date Tetanus Booster (TDap): Unknown PED Vaccines UTD: Yes Date of Pneumonia Vaccine: Aug 01, 2017 Date of Influenza Vaccine: Jul 31, 2018 Seasonal Allergies Seasonal Allergies: No Past Medical History Surgeries: Yes (RTH, KNEE,HEART CATH, BREAST BIOPSY, R RCR, LAP JEEVAN, KNEE CAP, ANKLE) Appendectomy, Breast, Gallbladder, Joint Replacement, Oophorectomy, Orthopedic, Tonsillectomy, Tubal Ligation Respiratory: No Currently Using CPAP: No Currently Using BIPAP: No Cardiac: Yes Atrial Fibrillation, High Cholesterol, Hypertension Neurological: No Neuropathy Reproductive Disorders: No Sexually Transmitted Disease: No HIV/AIDS: No Genitourinary: No Gastrointestinal: Yes Gastroesophageal Reflux, Chronic Constipation, Hiatal Hernia Musculoskeletal: Yes Arthritis, Chronic Back Pain, Fractures Endocrine: Yes Hypothyroidsim HEENT: Yes (GLASSES, DENTURES) Loss of Vision: Bilateral Hearing Impairment: Denies Cancer: No Psychosocial: Yes Anxiety, Bipolar, Depression Integumentary: No Blood Disorders: Yes (POST OP ANEMIA) Adverse Reaction/Blood Tranf: No (HAS HAD BLOOD WITH NO REACTION) Family Medical History FH: stroke 19 FATHER G8 SISTER Myocardial infarction 19 FATHER G8 BROTHER G8 BROTHER CAD Over 55 Years Old, Stroke Physical Exam Vital Signs - First Documented 03/16/19 03/16/19 19:39 21:06 Temp 97.4 Pulse 77 Resp 22 B/P (MAP) 128/112 (117) Pulse Ox 100 O2 Delivery Room Air Capillary Refill : Less Than 3 Seconds Height: 5'5.00" Weight: 152lbs. 9.6oz. 68.171675um; 24.6 BMI Method:Stated General Appearance: WD/WN, no apparent distress HEENT: PERRL/EOMI, normal ENT inspection Neck: normal inspection Respiratory: lungs clear, normal breath sounds, no respiratory distress, no accessory muscle use Cardiovascular: regular rate, rhythm, no murmur, other (moderate pitting lower extremity edema equal bilaterally) Gastrointestinal: normal bowel sounds, soft, tenderness (slight generalized) Extremities: swelling (tender moderate pitting edema equal bilaterally) Neurologic/Psychiatric: chalker soles II-XII nml as tested, no motor/sensory deficits, alert, oriented x 3, other (mildly anxious) Skin: normal color, warm/dry Progress/Results/Core Measures Suspected Sepsis Recent Fever Within 48 Hours: No Infection Criteria Present: None New/Unexplained Altered Menta: No Sepsis Screen: No Definite Risk SIRS Temperature:97.4 Pulse: 77 Respiratory Rate: 22 Laboratory Tests 03/16/19 19:58: White Blood Count 8.8 Blood Pressure 128 /112 Mean: 117 Laboratory Tests 03/16/19 19:58: Creatinine 1.10, Platelet Count 142, Total Bilirubin 1.2H Results/Orders Lab Results Laboratory Tests Test 03/16/19 19:58 Range/Units White Blood Count 8.8 4.3-11.0 10^3/uL Red Blood Count 4.60 4.35-5.85 10^6/uL Hemoglobin 14.6 11.5-16.0 G/DL Hematocrit 42 35-52 % Mean Corpuscular Volume 92 80-99 FL Mean Corpuscular Hemoglobin 32 25-34 PG Mean Corpuscular Hemoglobin Concent 35 32-36 G/DL Red Cell Distribution Width 15.2 H 10.0-14.5 % Platelet Count 142 130-400 10^3/uL Mean Platelet Volume 9.8 7.4-10.4 FL Neutrophils (%) (Auto) 50 42-75 % Lymphocytes (%) (Auto) 39 12-44 % Monocytes (%) (Auto) 10 0-12 % Eosinophils (%) (Auto) 1 0-10 % Basophils (%) (Auto) 1 0-10 % Neutrophils # (Auto) 4.4 1.8-7.8 X 10^3 Lymphocytes # (Auto) 3.4 1.0-4.0 X 10^3 Monocytes # (Auto) 0.9 0.0-1.0 X 10^3 Eosinophils # (Auto) 0.1 0.0-0.3 10^3/uL Basophils # (Auto) 0.0 0.0-0.1 10^3/uL Sodium Level 136 135-145 MMOL/L Potassium Level 3.6 3.6-5.0 MMOL/L Chloride Level 99 98-107 MMOL/L Carbon Dioxide Level 21 21-32 MMOL/L Anion Gap 16 H 5-14 MMOL/L Blood Urea Nitrogen 13 7-18 MG/DL Creatinine 1.10 0.60-1.30 MG/DL Estimat Glomerular Filtration Rate 48 BUN/Creatinine Ratio 12 Glucose Level 81 70-105 MG/DL Calcium Level 9.7 8.5-10.1 MG/DL Corrected Calcium 9.8 8.5-10.1 MG/DL Magnesium Level 1.9 1.8-2.4 MG/DL Total Bilirubin 1.2 H 0.1-1.0 MG/DL Aspartate Amino Transf (AST/SGOT) 23 5-34 U/L Alanine Aminotransferase (ALT/SGPT) 14 0-55 U/L Alkaline Phosphatase 166 H 40-136 U/L Troponin I < 0.028 <0.028 NG/ML B-Type Natriuretic Peptide 541.2 H <100.0 PG/ML Total Protein 6.9 6.4-8.2 GM/DL Albumin 3.9 3.2-4.5 GM/DL Thyroid Stimulating Hormone (TSH) 6.46 H 0.35-4.94 UIU/ML Free Thyroxine 1.26 0.70-1.48 NG/DL Digoxin Level 0.81 0.80-2.00 NG/ML My Orders Orders - CAMDEN CENTENO MD Ed Iv/Invasive Line Start (03/16/19 19:53) Ekg Tracing (03/16/19 19:53) Chest Pa/Lat (2 View) (03/16/19 19:53) BNP (03/16/19 19:53) Cbc With Automated Diff (03/16/19 19:53) Comprehensive Metabolic Panel (03/16/19 19:53) Digoxin (03/16/19 19:53) Magnesium (03/16/19 19:53) Thyroid Stimulating Hormone (03/16/19 19:53) Troponin I (03/16/19 19:53) Free T4 (Free Thyroxine) (03/16/19 19:53) Albuterol Pre-Mix Nebs (Rt) (Proventil (03/16/19 20:53) Svn Small Volume Nebulizer (03/16/19 20:53) Rx-Albuterol Inhaler (Rx-Proair) (03/16/19 21:10) Vital Signs/I&O 03/16/19 03/16/19 03/16/19 03/16/19 19:39 21:06 21:15 22:11 Temp 97.4 97.4 Pulse 77 69 Resp 22 18 B/P (MAP) 128/112 (117) 128/54 (78) Pulse Ox 100 100 100 O2 Delivery Room Air Room Air Room Air Capillary Refill : Less Than 3 Seconds Blood Pressure Mean: 117 Progress Note : Progress Note Labs were reviewed. Patient had a modest elevation in BNP. I suggested taking an extra dose of Lasix this weekend and then following up with her doctors on Tuesday. Although patient has not been a smoker, she had evidence of COPD changes on her chest x-ray. A nebulizer treatment was ordered which actually did improve her shortness of breath. Respiratory therapy provided her with an inhaler and spacer along with education. See discharge instructions. ECG Initial ECG Impression Date: March 16, 2019 Initial ECG Impression Time: 19:51 Initial ECG Rate: 75 Initial ECG Impression: Atrial Fibrillation Comment Atrial fibrillation or flutter was no acute ST elevation or depression. Rate controlled. Diagnostic Imaging Diagonstic Imaging: Xray Plain Films/CT/US/NM/MRI: chest Comments Chest x-ray viewed by me and report reviewed. See report below: NAME: HIMANSHU JAIN [facility] REC#: [id number] PT STATUS: REG ER : 1940 PHYSICIAN: CAMDEN CENTENO MD ADMIT DATE: 03/16/19/ER Draft Date of Exam:03/16/19 CHEST PA/LAT (2 VIEW) INDICATION: Shortness of breath and leg swelling. EXAMINATION: PA and lateral views of the chest were obtained. COMPARISON: Prior examination from 02/11/2019. FINDINGS: Heart size is upper limits of normal. Air-trapping compatible with COPD. There is no pleural effusion, pneumothorax or pneumonia. The mediastinum is unremarkable. IMPRESSION: 1. COPD and mild cardiomegaly. 2. No acute cardiopulmonary abnormality. Dictated on workstation # [id number] Dict: 03/16/192027 Trans: 03/16/192033 [facility] [id number] Interpreted by: MADDI BA MD Departure Impression Primary Impression: Dyspnea Qualified Codes: R06.00 - Dyspnea, unspecified Additional Impressions: Bronchospasm Lower extremity edema Disposition: HOME, SELF-CARE Condition: Improved Departure-Patient Inst. Decision time for Depature: 22:01 Referrals: FRANCESCO PHILLIPS MD (PCP/Family) Primary Care Physician Patient Instructions: Chronic Obstructive Pulmonary Disease (COPD), Including Emphysema Add. Discharge Instructions: Follow-up with your primary care provider soon as possible. I suggest taking one extra dose of Lasix (furosemide) this weekend to help evacuate fluid from your leg. Elevate your legs to the level of your heart is much as possible. Return to the emergency room if you have worsening symptoms. Use your inhaler up to 2 puffs every 4 hours as needed for shortness of breath. Your shortness of breath may be due to COPD. Please discuss this with your primary care provider. All discharge instructions reviewed with patient and/or family. Voiced understanding. Copy Copies To 1: FRANCESCO PHILLIPS MD Copies To 2: MOHINI VELASQUEZ MD FACP FAC CCDS CAMDEN CENTENO MD March 16, 2019 20:48
[2019-03-16 20:49] LABS: FREE T4 (FREE THYROXINE) 1.26 NG/DL (0.70-1.48)
[2019-03-16] MEDS ORDERED: RT-ALBUTEROL SULF 2.5 MG/3 ML PRE-MIX VIAL INH STA (20:53)
[2019-03-16] MEDS ORDERED: RX-ALBUTEROL INHALER (PROAIR) 8 GM IH STA (21:10)
[2019-03-16 22:11] VITALS: BP 128/54
== END 2019-03-16 22:16 | disposition home or self-care (01) ==
LOC: EDUNIT# 19:35 → ER 19:37
DX: J98.01 Acute bronchospasm (principal); R60.0 Localized edema; I11.0 Hypertensive heart disease with heart failure; I50.20 Unspecified systolic (congestive) heart failure; I48.91 Unspecified atrial fibrillation; E78.00 Pure hypercholesterolemia, unspecified; G62.9 Polyneuropathy, unspecified; E03.9 Hypothyroidism, unspecified; F41.9 Anxiety disorder, unspecified; F31.9 Bipolar disorder, unspecified; K21.9 Gastro-esophageal reflux disease without esophagitis; Z88.5 Allergy status to narcotic agent; Z91.048 Other nonmedicinal substance allergy status; Z79.01 Long term (current) use of anticoagulants; Z82.49 Family history of ischemic heart disease and other diseases of the circulatory system; Z87.19 Personal history of other diseases of the digestive system; Z79.82 Long term (current) use of aspirin; Z96.641 Presence of right artificial hip joint; Z95.9 Presence of cardiac and vascular implant and graft, unspecified; Z90.49 Acquired absence of other specified parts of digestive tract; Z90.89 Acquired absence of other organs; Z98.51 Tubal ligation status
CPT/HCPCS: 36415; 71046; 80053; 80162; 83735; 83880; 84439; 84443; 84484; 85025; 93005; 94640; 94664

== ENCOUNTER → 2019-04-03 | Outpatient (CLI) | payer MEDICARE ==
--- NOTE | 2019-04-03 12:44 | Diagnostic Imaging Report ---
EXAMINATION: Chest, PA and lateral views. INDICATION: Cough. COMPARISON: Multiple priors, most recent performed on 03/16/2019. FINDINGS: There is mild left basilar atelectasis/scarring, similar in appearance to prior exam. The lungs are otherwise clear and the pulmonary vasculature is normal. No pneumothorax or significant pleural effusion. The cardiomediastinal silhouette is unchanged. No acute osseous abnormality is appreciated. Bone anchors are demonstrated in the left humeral head. Surgical clips are demonstrated in the right upper quadrant. IMPRESSION: Mild left basilar atelectasis/scarring, otherwise no radiographic evidence of acute chest disease. No significant change from prior. Dictated by: Dictated on workstation # [id number]
== END ==
LOC: LAB 11:22
PROVIDERS: ATTEND Family Medicine
DX: R05 Cough (principal); R06.00 Dyspnea, unspecified
CPT/HCPCS: 36415; 71046; 83880